=== PATIENT | female | born 1960 | race African-American/Black ===

== ENCOUNTER 2017-01-04 00:38 | Emergency (ER) | payer OTHER ==
[2017-01-04] MEDS ORDERED: ALBUTEROL SO4 2.5/IPRATROPIUM 0.5 INH SOL 3 ML VIAL.NEB. NEB ONE ×4 (01:15→02:41)
--- NOTE | 2017-01-04 01:15 | PDOC ---
History of Present Illness - General History Source: Patient Exam Limitations: No Limitations - History of Present Illness Initial Comments: 01/04/17 01:19 The patient is a 56 year old female with a significant past medical history of asthma and hypertension who presents to the ED with complaints of progressively worsening cough for past 24 hours, and chest tightness. The patient frequently comes into the ED for similar episodes. Patient denies fevers or chills. Patient denies abdominal pain, nausea, vomiting, or diarrhea. Patient denies palpitations. Patient denies any sick contacts, recent travels. Patient is a former smoker (Quit a year ago) <Khang Villagran - Last Filed: 01/04/17 01:19> <Hoa Gonzalez - Last Filed: 01/04/17 02:42> <Adriana Montes - Last Filed: 01/04/17 06:16> - General Chief Complaint: Asthma Stated Complaint: ASTHMA Time Seen by Provider: 01/04/17 01:04 Past History <Khang Villagran - Last Filed: 01/04/17 01:19> - Past Medical History Anemia: No Asthma: Yes (Dx 2003) Cardiac Disorders: Yes CVA: No COPD: Yes Diabetes: No GI Disorders: No Disorders: No HTN: Yes Hypercholesterolemia: No Kidney Stones: No Psychiatric Problems: Yes (anxiety) Suicide Attempt (Hx): No Seizures: No Thyroid Disease: No - Surgical History Abdominal Surgery: No Appendectomy: No Cardiac Surgery: No Cholecystectomy: No Lung Surgery: No Neurologic Surgery: No Orthopedic Surgery: No - Reproductive History PID: No - Immunization History Immunization Up to Date: Yes - Psycho/Social/Smoking Cessation Hx Anxiety: No Suicidal Ideation: No Smoking Status: No Smoking History: Unknown if ever smoked Have you smoked in the past 12 months: No Number of Cigarettes Smoked Daily: 0 If you are a former smoker, when did you quit?: 1 year ago Information on smoking cessation initiated: No 'Breaking Loose' booklet given: 04/10/15 Hx Alcohol Use: No Drug/Substance Use Hx: No Substance Use Type: None Hx Substance Use Treatment: Yes <Hoa Gonzalez - Last Filed: 01/04/17 02:42> <Adriana Montes - Last Filed: 01/04/17 06:16> - Past Medical History Allergies/Adverse Reactions: Allergies Allergy/AdvReac Type Severity Reaction Status Date / Time black walnut Allergy Severe Hives Verified 01/04/17 01:00 sulfamethoxazole Allergy Severe Swelling Verified 01/04/17 01:00 [From Bactrim] trimethoprim [From Bactrim] Allergy Severe Swelling Verified 01/04/17 01:00 grape juice Allergy Severe Hives Uncoded 01/04/17 01:00 PECAN Allergy Severe Hives Uncoded 01/04/17 01:00 PENUTS Allergy Severe Hives Uncoded 01/04/17 01:00 Home Medications: Ambulatory Orders Nebulizer [Aeroneb Go Nebulizer] 1 each MC ASDIR 07/06/16 Albuterol Sulfate Inhaler - [Ventolin HFA Inhaler -] 2 inh IH Q6H #1 inh Albuterol 0.083% Nebulizer Destiny [Ventolin 0.083% Nebulizer Soln -] 1 amp NEB Q4H PRN #0 amp 09/25/16 Budesonide/Formeterol Fumarate [SYMBICORT 160/4.5mcg -] 2 puff IH BID inhaler 09/25/16 Hydrochlorothiazide [Hctz -] 25 mg PO DAILY tablet 09/25/16 Hydroxyzine HCl [Atarax -] 25 mg PO TID PRN #0 tablet 09/25/16 Prednisone 10 mg PO DAILY #52 tablet 09/25/16 Tiotropium Reynolds [Spiriva] 1 dose IH DAILY #0 inh MDD 1 09/25/16 Prednisone [Deltasone -] 40 mg PO DAILY #10 tablet 01/04/17 Respiratory Specific PMHX - Complaint Specific PMHX TB (Tuberculosis): No <Hoa Gonzalez - Last Filed: 01/04/17 02:42> Review of Systems - Review of Systems Able to Perform ROS?: Yes Comments:: 01/04/17 01:19 CONSTITUTIONAL: Absent: fever, chills, diaphoresis, generalized weakness, malaise, loss of appetite HEENT: Absent: rhinorrhea, nasal congestion, throat pain, throat swelling, difficulty swallowing, mouth swelling, ear pain, eye pain, visual Changes CARDIOVASCULAR: Absent: chest pain, syncope, palpitations, irregular heart rate, lightheadedness , peripheral edema RESPIRATORY: Present: cough, chest tightness. Absent: dyspnea with exertion, orthopnea, wheezing, stridor, hemoptysis GASTROINTESTINAL: Absent: abdominal pain, abdominal distension, nausea, vomiting, diarrhea, constipation, melena, hematochezia GENITOURINARY: Absent: dysuria, frequency, urgency, hesitancy, hematuria, flank pain, genital pain MUSCULOSKELETAL: Absent: myalgia, arthralgia, joint swelling SKIN: Absent: rash, itching, pallor HEMATOLOGIC/IMMUNOLOGIC: Absent: easy bleeding, easy bruising, lymphadenopathy, frequent infections ENDOCRINE: Absent: unexplained weight gain, unexplained weight loss, heat intolerance, cold intolerance NEUROLOGIC: Absent: headache, focal weakness or paresthesias, dizziness, unsteady gait, seizure, mental status changes, bladder or bowel incontinence PSYCHIATRIC: Absent: anxiety, depression, suicidal or homicidal ideation, hallucinations. <Khang Villagran - Last Filed: 01/04/17 01:19> *Physical Exam - Vital Signs Last Vital Signs Temp Pulse Resp BP Pulse Ox 98.2 F 81 18 130/96 100 01/04/17 01:01 01/04/17 01:01 01/04/17 01:01 01/04/17 01:01 01/04/17 01:01 - Physical Exam Comments: 01/04/17 01:20 GENERAL: Well developed, well nourished. Awake and alert. No acute distress. HEENT: Normocephalic, atraumatic. PERRLA, EOMI. No conjunctival pallor. Sclera are non- icteric. Moist mucous membranes. Oropharynx is clear. NECK: Supple. Full ROM. No JVD. Carotid pulses 2+ and symmetric, without bruits. No thyromegaly. No lymphadenopathy. CARDIOVASCULAR: Regular rate and rhythm. No murmurs, rubs, or gallops. Distal pulses are 2+ and symmetric. PULMONARY: Scattered wheezing. Lungs clear to auscultation bilaterally. No rales or rhonchi. ABDOMINAL: Soft. Non-tender. Non-distended. No rebound or guarding. No organomegaly. Normoactive bowel sounds. MUSCULOSKELETAL Normal range of motion at all joints. No bony deformities or tenderness. No CVA tenderness. EXTREMITIES: No cyanosis. No clubbing. No edema. No calf tenderness. SKIN: Warm and dry. Normal capillary refill. No rashes. No jaundice. NEUROLOGICAL: Alert, awake, appropriate. Cranial nerves 2-12 intact. No deficits to light touch and temperature in face, upper extremities and lower extremities. No motor deficits in the in face, upper extremities and lower extremities. Normoreflexic in the upper and lower extremities. Normal speech. Toes are down-going bilaterally. Gait is normal without ataxia. PSYCHIATRIC: Cooperative. Good eye contact. Appropriate mood and affect. <Khang Villagran - Last Filed: 01/04/17 01:19> - Vital Signs Last Vital Signs Temp Pulse Resp BP Pulse Ox 98.2 F 81 18 130/96 100 01/04/17 01:01 01/04/17 01:01 01/04/17 01:01 01/04/17 01:01 01/04/17 01:01 <Hoa Gonzalez - Last Filed: 01/04/17 02:42> - Vital Signs Last Vital Signs Temp Pulse Resp BP Pulse Ox 98.2 F 81 18 130/96 100 01/04/17 01:01 01/04/17 01:01 01/04/17 01:01 01/04/17 01:01 01/04/17 01:01 <Adriana Montes - Last Filed: 01/04/17 06:16> ED Treatment Course - LABORATORY CBC & Chemistry Diagram: 01/04/17 01:50 01/04/17 01:50 - ADDITIONAL ORDERS Additional order review: Laboratory Results 01/04/17 01/04/17 01:50 01:50 Sodium 144 Potassium 4.0 Chloride 107 Carbon Dioxide 29 Anion Gap 8 BUN 24 H Creatinine 1.2 H D Creat Clearance w eGFR 46.30 Random Glucose 88 D Calcium 8.5 Total Bilirubin 0.2 AST 20 ALT 22 D Alkaline Phosphatase 106 D Creatine Kinase 154 D CK-MB (CK-2) 2.508 Troponin I < 0.02 Total Protein 7.4 Albumin 3.1 L 01/04/17 01:50 RBC 4.83 MCV 70.1 L MCHC 31.3 L RDW 16.9 H MPV 8.9 Neutrophils % 51.0 D Lymphocytes % 33.0 D Monocytes % 11.8 H D Eosinophils % 3.8 D Basophils % 0.4 D - Medications Given in the ED: ED Medications Discontinued Medications Generic Name Dose Route Start Last Admin Trade Name Freq PRN Reason Stop Dose Admin Albuterol/Ipratropium 1 amp 01/04/17 01:15 01/04/17 01:44 Duoneb - NEB 01/04/17 01:16 1 amp ONCE ONE Administration Albuterol/Ipratropium 1 amp 01/04/17 01:19 01/04/17 01:44 Duoneb - NEB 01/04/17 01:20 1 amp ONCE ONE Administration Albuterol/Ipratropium 1 amp 01/04/17 02:10 01/04/17 02:59 Duoneb - NEB 01/04/17 02:11 1 amp ONCE STA Administration Magnesium Sulfate 1 gm 01/04/17 02:25 01/04/17 02:59 Magnesium Sulfate IVPB 01/04/17 02:26 1 gm ONCE ONE Administration Prednisone 60 mg 01/04/17 01:17 01/04/17 01:44 Deltasone - PO 01/04/17 01:18 60 mg ONCE ONE Administration Terbutaline Sulfate 0.25 mg 01/04/17 02:47 01/04/17 03:27 Brethine Injection - SQ 01/04/17 02:48 Not Given ONCE ONE <Adriana Montes - Last Filed: 01/04/17 06:16> *DC/Admit/Observation/Transfer - Attestations Scribe Attestion: 01/04/17 01:21 Documentation prepared by Khang Villagran, acting as medical certification specialist for Hoa Gonzalez MD. <Khang Villagran - Last Filed: 01/04/17 01:19> <Hoa Gonzalez - Last Filed: 01/04/17 02:42> - Discharge Dispostion Admit: No <Adriana Montes - Last Filed: 01/04/17 06:16> Diagnosis at time of Disposition: Acute bronchitis with chronic obstructive pulmonary disease (COPD), Asthma - Discharge Dispostion Disposition: HOME Condition at time of disposition: Stable - Prescriptions Prescriptions: Prednisone [Deltasone -] 40 mg PO DAILY #10 tablet - Referrals Referrals: Marija Ro MD [Primary Care Provider] - - Patient Instructions Printed Discharge Instructions: Asthma -- Adult
[2017-01-04 01:17] VITALS: BP 130/96; PULSE 81; TEMP 98.2; BMI 21.2
[2017-01-04] MEDS ORDERED: predniSONE 20 MG TABLET (UD) PO ONE (01:17)
[2017-01-04] MEDS ORDERED: predniSONE 20 MG TABLET (UD) ONE (01:37)
[2017-01-04] MEDS ORDERED: predniSONE 10 MG TABLET (UD) ONE (01:39)
[2017-01-04 01:57] LABS: BASOPHIL 0.4 % (0-2.0); EOSINOPHIL 3.8 % (0-4.5); MCH 21.9 pg (25.7-33.7); MCHC 31.3 g/dl (32.0-36.0); MEAN CELL VOLUME 70.1 fl (80-96); MEAN PLT VOLUME 8.9 fl (7.5-11.1); PLATELET COUNT 190 K/MM3 (134-434); RDW 16.9 % (11.6-15.6); WHITE BLOOD COUNT 8.5 K/mm3 (4.0-10.0)
[2017-01-04] MEDS ORDERED: ALBUTEROL SO4 2.5/IPRATROPIUM 0.5 INH SOL 3 ML VIAL.NEB. NEB STA (02:10)
[2017-01-04 02:25] LABS: ALBUMIN 3.1 g/dl (3.4-5.0); BILIRUBIN,TOTAL 0.2 mg/dL (0.2-1.0); CALCIUM 8.5 mg/dL (8.5-10.1); COCKROFT - GAULT 51.85; CREATININE 1.2 mg/dL (0.55-1.02); TOT PROT 7.4 g/dl (6.4-8.2)
[2017-01-04] MEDS ORDERED: MAGNESIUM SULF 50% (8.12 MEQ/2 ML-1 GM VIAL) IVPB ONE (02:25)
[2017-01-04 02:26] LABS: TROPONIN I < 0.02 ng/ml (0.00-0.05)
[2017-01-04] MEDS ORDERED: MAGNESIUM SULF 50% (8.12 MEQ/2 ML-1 GM VIAL) ONE (02:41)
[2017-01-04] MEDS ORDERED: TERBUTALINE SULFATE 1 MG/1 ML VIAL SQ ONE ×2 (02:47→03:03)
[2017-01-04 04:34] LABS: PLATELET COMMENT2 NO CLOTTING DETECTED; PLATELET ESTIMATE ADEQUATE (NORMAL)
[2017-01-04 04:35] LABS: ANISOCYTOSIS 1+; HYPOCHROMIA 1+; MICROCYTOSIS 1+; POLYCHROMASIA 1+
--- NOTE | 2017-01-04 15:07 | EKG ---
Test Reason : Blood Pressure : / mmHG Vent. Rate : 072 BPM Atrial Rate : 072 BPM P-R Int : 164 ms QRS Dur : 074 ms QT Int : 430 ms P-R-T Axes : 067 058 064 degrees QTc Int : 470 ms NORMAL SINUS RHYTHM NORMAL ECG WHEN COMPARED WITH ECG OF 23-SEP-2016 07:05, NO SIGNIFICANT CHANGE WAS FOUND Confirmed by BERENICE MELTON MD ([id number]) on 01/04/2017 3:06:48 PM Referred By: Confirmed By:BERENICE MELTON MD
== END 2017-01-04 06:27 | disposition home or self-care (01) ==
LOC: JER 00:38
PROC: 3E0F7GC Introduction of Other Therapeutic Substance into Respiratory Tract, Via Natural or Artificial Opening (ICD-10-PCS; principal; 2017-01-04)
PROC: 3E0F7GC Introduction of Other Therapeutic Substance into Respiratory Tract, Via Natural or Artificial Opening (ICD-10-PCS; 2017-01-04)
PROC: 3E0F7GC Introduction of Other Therapeutic Substance into Respiratory Tract, Via Natural or Artificial Opening (ICD-10-PCS; 2017-01-04)
PROC: 3E0F7GC Introduction of Other Therapeutic Substance into Respiratory Tract, Via Natural or Artificial Opening (ICD-10-PCS; 2017-01-04)
PROC: 3E033GC Introduction of Other Therapeutic Substance into Peripheral Vein, Percutaneous Approach (ICD-10-PCS; 2017-01-04)
DX: J44.1 Chronic obstructive pulmonary disease with (acute) exacerbation (principal); I10 Essential (primary) hypertension; F41.9 Anxiety disorder, unspecified
CPT/HCPCS: 36415; 71010-TC; 80053; 82550; 82553; 84484; 85025; 93005; 93010; 99282-25

== ENCOUNTER 2017-01-17 00:20 | Inpatient (IN) | payer OTHER ==
[2017-01-17 00:47] VITALS: BMI 25.8
--- NOTE | 2017-01-17 00:47 | PDOC ---
History of Present Illness - General History Source: Patient Exam Limitations: No Limitations - History of Present Illness Initial Comments: 01/17/17 01:15 The patient is a 56-year-old female with a significant past medical history of asthma and HTN, and presents to the emergency department with shortness of breath and chest tightness tonight. The patient frequently comes to the ED for similar episodes. The patient reports that she cannot walk far due to the difficulty breathing and she has a productive cough. The patient reports that she was running around with her grandkids again. She states she is on a diet and only eats one meal a day now. The patient denies palpitations, headache and dizziness. The patient denies fever, chills, nausea, vomit, diarrhea and constipation. The patient denies dysuria, frequency, urgency and hematuria. Patient denies any sick contacts. Allergies: black walnut, sulfamethoxazole, trimethoprim, grape juice, pecan, peanuts Past Surgical History: None reported. Social History: former smoker (stopped 1.5 years ago) PCP: Dr. Marija Leon <Debbie Ngerete - Last Filed: 01/17/17 01:15> <Adriana Montes - Last Filed: 01/17/17 05:21> - General Chief Complaint: Shortness of Breath Stated Complaint: ASTHMA Time Seen by Provider: 01/17/17 00:45 Past History <Debbie Negrete - Last Filed: 01/17/17 01:15> - Past Medical History Anemia: No Asthma: Yes (Dx 2004) Cardiac Disorders: Yes CVA: No COPD: Yes Diabetes: No GI Disorders: No Disorders: No HTN: Yes Hypercholesterolemia: No Kidney Stones: No Psychiatric Problems: Yes (anxiety) Suicide Attempt (Hx): No Seizures: No Thyroid Disease: No - Surgical History Abdominal Surgery: No Appendectomy: No Cardiac Surgery: No Cholecystectomy: No Lung Surgery: No Neurologic Surgery: No Orthopedic Surgery: No - Reproductive History PID: No - Immunization History Immunization Up to Date: Yes - Psycho/Social/Smoking Cessation Hx Anxiety: No Suicidal Ideation: No Smoking Status: No Smoking History: Unknown if ever smoked Have you smoked in the past 12 months: No Number of Cigarettes Smoked Daily: 0 If you are a former smoker, when did you quit?: 1 year ago Information on smoking cessation initiated: No 'Breaking Loose' booklet given: 04/10/15 Hx Alcohol Use: No Drug/Substance Use Hx: No Substance Use Type: None Hx Substance Use Treatment: Yes <Adriana Montes - Last Filed: 01/17/17 05:21> - Past Medical History Allergies/Adverse Reactions: Allergies Allergy/AdvReac Type Severity Reaction Status Date / Time black walnut Allergy Severe Hives Verified 01/17/17 00:33 sulfamethoxazole Allergy Severe Swelling Verified 01/17/17 00:33 [From Bactrim] trimethoprim [From Bactrim] Allergy Severe Swelling Verified 01/17/17 00:33 grape juice Allergy Severe Hives Uncoded 01/17/17 00:33 PECAN Allergy Severe Hives Uncoded 01/17/17 00:33 PENUTS Allergy Severe Hives Uncoded 01/17/17 00:33 Home Medications: Ambulatory Orders Nebulizer [Aeroneb Go Nebulizer] 1 each MC ASDIR 07/06/16 Albuterol Sulfate Inhaler - [Ventolin HFA Inhaler -] 2 inh IH Q6H #1 inh Albuterol 0.083% Nebulizer Destiny [Ventolin 0.083% Nebulizer Soln -] 1 amp NEB Q4H PRN #0 amp 09/25/16 Budesonide/Formeterol Fumarate [SYMBICORT 160/4.5mcg -] 2 puff IH BID inhaler 09/25/16 Hydrochlorothiazide [Hctz -] 25 mg PO DAILY tablet 09/25/16 Hydroxyzine HCl [Atarax -] 25 mg PO TID PRN #0 tablet 09/25/16 Tiotropium Kiester [Spiriva] 1 dose IH DAILY #0 inh MDD 1 09/25/16 Review of Systems - Review of Systems Able to Perform ROS?: Yes Comments:: 01/17/17 01:17 CONSTITUTIONAL: Absent: fever, chills, diaphoresis, generalized weakness, malaise, loss of appetite HEENT: Absent: rhinorrhea, nasal congestion, throat pain, throat swelling, difficulty swallowing, mouth swelling, ear pain, eye pain, visual changes CARDIOVASCULAR: Present: (+) chest tightness Absent: syncope, palpitations, irregular heart rate, lightheadedness, peripheral edema RESPIRATORY: Present: (+) shortness of breath, (+) cough Absent: dyspnea with exertion, orthopnea, wheezing, stridor, hemoptysis GASTROINTESTINAL: Absent: abdominal pain, abdominal distension, nausea, vomiting, diarrhea, constipation, melena, hematochezia GENITOURINARY: Absent: dysuria, frequency, urgency, hesitancy, hematuria, flank pain, genital pain MUSCULOSKELETAL: Absent: myalgia, arthralgia, joint swelling SKIN: Absent: rash, itching, pallor HEMATOLOGIC/IMMUNOLOGIC: Absent: easy bleeding, easy bruising, lymphadenopathy, frequent infections ENDOCRINE: Absent: unexplained weight gain, unexplained weight loss, heat intolerance, cold intolerance NEUROLOGIC: Absent: headache, focal weakness or paresthesias, dizziness, unsteady gait, seizure, mental status changes, bladder or bowel incontinence PSYCHIATRIC: Absent: anxiety, depression, suicidal or homicidal ideation, hallucinations. <NegreteDebbie - Last Filed: 01/17/17 01:15> *Physical Exam - Vital Signs Last Vital Signs Temp Pulse Resp BP Pulse Ox 98.4 F 114 H 28 H 154/82 94 L 01/17/17 00:44 01/17/17 00:44 01/17/17 00:44 01/17/17 00:44 01/17/17 00:44 - Physical Exam Comments: 01/17/17 01:18 GENERAL: Well developed, well nourished. Awake and alert. No acute distress. HEENT: Normocephalic, atraumatic. PERRLA, EOMI. No conjunctival pallor. Sclera are non- icteric. Moist mucous membranes. Oropharynx is clear. NECK: Supple. Full ROM. No JVD. Carotid pulses 2+ and symmetric, without bruits. No thyromegaly. No lymphadenopathy. CARDIOVASCULAR: Regular rate and rhythm. No murmurs, rubs, or gallops. Distal pulses are 2+ and symmetric. PULMONARY: (+) Wheezing bilaterally and throughout. No rales or rhonchi. ABDOMINAL: (+) Slightly distended. Soft. Non-tender. No rebound or guarding. No organomegaly. Normoactive bowel sounds. MUSCULOSKELETAL Normal range of motion at all joints. No bony deformities or tenderness. No CVA tenderness. EXTREMITIES: No cyanosis. No clubbing. No edema. No calf tenderness. SKIN: Warm and dry. Normal capillary refill. No rashes. No jaundice. NEUROLOGICAL: Alert, awake, appropriate. Cranial nerves 2-12 intact. No deficits to light touch and temperature in face, upper extremities and lower extremities. No motor deficits in the in face, upper extremities and lower extremities. Normoreflexic in the upper and lower extremities. Normal speech. Toes are down- going bilaterally. PSYCHIATRIC: Cooperative. Good eye contact. Appropriate mood and affect. <Debbie Negrete - Last Filed: 01/17/17 01:15> - Vital Signs Last Vital Signs Temp Pulse Resp BP Pulse Ox 98.4 F 114 H 28 H 154/82 94 L 01/17/17 00:44 01/17/17 00:44 01/17/17 00:44 01/17/17 00:44 01/17/17 00:44 <Adriana Montes - Last Filed: 01/17/17 05:21> ED Treatment Course - Medications Given in the ED: ED Medications Discontinued Medications Generic Name Dose Route Start Last Admin Trade Name Freq PRN Reason Stop Dose Admin Magnesium Sulfate 2 gm 01/17/17 01:00 01/17/17 01:12 Magnesium Sulfate IVPB 01/17/17 01:01 2 gm ONCE ONE Administration Methylprednisolone Sodium Succinate 125 mg 01/17/17 01:00 01/17/17 01:11 Solu-Medrol - IVPB 01/17/17 01:01 125 mg ONCE ONE Administration <Debbie Negrete - Last Filed: 01/17/17 01:15> - LABORATORY CBC & Chemistry Diagram: 01/17/17 03:20 01/17/17 03:20 <Adriana Montes - Last Filed: 01/17/17 05:21> Medical Decision Making - Medical Decision Making 01/17/17 05:17 Pt comes with asthma/COPD exacerbation. No fever. No smoking x 1 year. Pt is compliant with her albuterol. She was here recently and she was treated with prednisone; however steroids ran out. Pt has no known seasonal allergies. Pt is gasping for air and yet she is able to speak in full sentences. Labs normal. CXR same as old. EKG is NSR. She will be admitted to med surg, as she is unable to ambulate short distances without getting extremely SOB. She is failing conventional treatment with duonebs, mag sulfate, solu-medrol, terbutaline. Her lung horner remain with wheezing throughout both lung horner. She will be admitted to the hospitalist. She was placed on BiPAP for comfort. But within an hour of the BiPAP placement, she ripped off the mask as she felt claustrophobic and could not tolerate the mask. <Adriana Montes - Last Filed: 01/17/17 05:21> *DC/Admit/Observation/Transfer - Attestations Scribe Attestion: 01/17/17 01:19 Documentation prepared by Debbie Negrete, acting as medical lab technician for Adriana Montes MD. <Debbie Negrete - Last Filed: 01/17/17 01:15> - Discharge Dispostion Admit: Yes <Adriana Montes - Last Filed: 01/17/17 05:21> Diagnosis at time of Disposition: COPD exacerbation, Asthma Hypertension Qualifiers: Hypertension type: essential hypertension Qualified Code(s): I10 - Essential ( primary) hypertension
[2017-01-17] MEDS ORDERED: methylPREDNISolone NA SUCC 125 MG/2 ML VIAL IVPB ONE (01:00)
[2017-01-17] MEDS ORDERED: MAGNESIUM SULF 50% (8.12 MEQ/2 ML-1 GM VIAL) IVPB ONE (01:00)
[2017-01-17] MEDS ORDERED: TERBUTALINE SULFATE 1 MG/1 ML VIAL SQ ONE ×4 (01:01→03:22)
[2017-01-17] MEDS ORDERED: LACTULOSE 20 GM/30 ML UDC (FOR ORAL USE ONLY) PO ONE (01:02)
[2017-01-17] MEDS ORDERED: methylPREDNISolone NA SUCC 125 MG/2 ML VIAL ONE (01:03)
[2017-01-17] MEDS ORDERED: MAGNESIUM SULF 50% (8.12 MEQ/2 ML-1 GM VIAL) ONE (01:03)
[2017-01-17] MEDS ORDERED: ALBUTEROL SO4 2.5/IPRATROPIUM 0.5 INH SOL 3 ML VIAL.NEB. NEB ONE (02:36)
[2017-01-17 02:56] LABS: ALLENS TEST POSITIVE; ART PUNCT SITE RIGHT RADIAL; ARTERIAL BLD GAS O2 SATURATION 94.7 % (90-98.9); ARTERIAL BLOOD GAS HCO3 23.4 meq/L (22-26); ARTERIAL BLOOD GAS PO2 74.8 mmHg (80-100); ARTERIAL BLOOD GAS pH 7.34 (7.35-7.45); LPM/O2% 3L; PT. ON O2? YES; TYPE OF O2 NASAL
--- NOTE | 2017-01-17 03:16 | HP ---
<Enrike Whitmore - Last Filed: 01/17/17 03:59> CHIEF COMPLAINT: Shortness of Breath PCP: Dr. Marija Leon HISTORY OF PRESENT ILLNESS: The patient is a 56-year-old female with a significant past medical history of asthma and HTN, and presented to the emergency department with worsening shortness of breath and chest tightness for a couple of days The patient reported that she cannot walk far due to the difficulty breathing. She reported associated productive cough with white sputum and chest congestion. The patient stated that she used her inhaler and nebulizer at home to alleviate symptoms with no relief. The patient denied palpitations, headache and dizziness. The patient denied fever, chills, nausea, vomit, diarrhea and constipation. The patient denied dysuria, frequency, urgency and hematuria. Patient denies any sick contacts. ER course was notable for: (1) Magnesium Sulfate 2 g IV (2) Solumedrol 125 mg IV (3) Terbutaline 0.25 mg SQ (4) Duoneb (5) Placed on bipap Recent Travel: Noncontributory PAST MEDICAL HISTORY: Asthma, arthritis, HTN PAST SURGICAL HISTORY: Noncontributory Social History: Lives at home with mother Smoking: Quit 1.5 years ago Alcohol: Socially Drugs: Quit Crack-Cocaine (smoked) 4 years ago. Family History: Allergies black walnut Allergy (Severe, Verified 01/17/17 00:33) Hives sulfamethoxazole [From Bactrim] Allergy (Severe, Verified 01/17/17 00:33) Swelling trimethoprim [From Bactrim] Allergy (Severe, Verified 01/17/17 00:33) Swelling grape juice Allergy (Severe, Uncoded 01/17/17 00:33) Hives PECAN Allergy (Severe, Uncoded 01/17/17 00:33) Hives PECANS PENUTS Allergy (Severe, Uncoded 01/17/17 00:33) Hives PEANUTS HOME MEDICATIONS: Home Medications Medication Instructions Recorded Nebulizer [Aeroneb Go Nebulizer] 1 each ASDIR 07/06/16 Albuterol Sulfate Inhaler - 2 inh IH Q6H #1 inh 08/11/16 [Ventolin HFA Inhaler -] Albuterol 0.083% Nebulizer Destiny 1 amp NEB Q4H PRN #0 amp 09/25/16 [Ventolin 0.083% Nebulizer Soln -] Budesonide/Formeterol Fumarate 2 puff IH BID inhaler 09/25/16 [SYMBICORT 160/4.5mcg -] Hydrochlorothiazide [Hctz -] 25 mg PO DAILY tablet 09/25/16 Hydroxyzine HCl [Atarax -] 25 mg PO TID PRN #0 tablet 09/25/16 Tiotropium [place] [Spiriva] 1 dose IH DAILY #0 inh MDD 1 09/25/16 REVIEW OF SYSTEMS CONSTITUTIONAL: Absent: fever, chills, diaphoresis, generalized weakness, malaise, loss of appetite, weight change HEENT: Absent: rhinorrhea, nasal congestion, throat pain, throat swelling, difficulty swallowing, mouth swelling, ear pain, eye pain, visual changes CARDIOVASCULAR: Present: Chest tightness Absent: syncope, palpitations, irregular heart rate, lightheadedness, peripheral edema RESPIRATORY: Present: Cough, shortness of breath. Absent: dyspnea with exertion, orthopnea, stridor, hemoptysis GASTROINTESTINAL: Absent: abdominal pain, abdominal distension, nausea, vomiting, diarrhea, constipation, melena, hematochezia GENITOURINARY: Absent: dysuria, frequency, urgency, hesitancy, hematuria, flank pain, genital pain MUSCULOSKELETAL: Absent: myalgia, arthralgia, joint swelling, back pain, neck pain SKIN: Absent: rash, itching, pallor HEMATOLOGIC/IMMUNOLOGIC: Absent: easy bleeding, easy bruising, lymphadenopathy, frequent infections ENDOCRINE: Absent: unexplained weight gain, unexplained weight loss, heat intolerance, cold intolerance NEUROLOGIC: Absent: headache, focal weakness or paresthesias, dizziness, unsteady gait, seizure, mental status changes, bladder or bowel incontinence PSYCHIATRIC: Absent: anxiety, depression, suicidal or homicidal ideation, hallucinations. PHYSICAL EXAMINATION Vital Signs - 24 hr 01/17/17 01/17/17 01/17/17 00:44 02:47 02:55 Temperature 98.4 F Pulse Rate 114 H 100 H Respiratory 28 H Rate Blood Pressure 154/82 O2 Sat by Pulse 94 L 91 L 100 Oximetry (%) GENERAL: Awake, alert, and fully oriented, in no acute distress. HEAD: Normal with no signs of trauma. EYES: Pupils equal, round and reactive to light, extraocular movements intact, sclera anicteric, conjunctiva clear. No lid lag. EARS, NOSE, THROAT: Ears normal, nares patent, oropharynx clear without exudates. Moist mucous membranes. NECK: Normal range of motion, supple without lymphadenopathy, JVD, or masses. LUNGS: (+) Diffuse Bilateral wheezes. HEART: (+) Tachycardic, regular rhythm, normal S1 and S2 without murmur, rub or gallop. ABDOMEN: Soft, nontender, not distended, normoactive bowel sounds, no guarding, no rebound, no masses. No hepatomegaly or splenomegaly. MUSCULOSKELETAL: Normal range of motion at all joints. No bony deformities or tenderness. No CVA tenderness. UPPER EXTREMITIES: 2+ pulses, warm, well-perfused. No cyanosis. No clubbing. No peripheral edema. LOWER EXTREMITIES: 2+ pulses, warm, well-perfused. No calf tenderness. NEUROLOGICAL: Cranial nerves II-XII intact. Normal speech. Normal gait. PSYCHIATRIC: Cooperative. Good eye contact. Appropriate mood and affect. SKIN: Warm, dry, normal turgor, no rashes or lesions noted, normal capillary refill. Laboratory Results - last 24 hr 01/17/17 02:45 Puncture Site Right radial ABG pH 7.34 L ABG pCO2 at Pt Temp 45.1 H ABG pO2 at Pt Temp 74.8 L D ABG HCO3 23.4 ABG O2 Sat (Measured) 94.7 ABG O2 Content 13.9 L ABG Base Excess -2.0 Timmy Test Positive O2 Delivery Device Nasal Oxygen Flow Rate 3l PEEP 0.0 ASSESSMENT/PLAN: 1. Acute hypoxic and hypercapnic respiratory failure secondary to acute exacerbation of COPD/asthma - Solumedrol 40 mg Q8 - Continue Symbicort - Duoneb QID - Albuterol neb Q4 PRN - O2 2L/min - Bipap as needed - Follow up Chest x-ray - Pulmonary consult 2. HTN Continue HCTZ Admit to med surg. Documentation prepared by Enrike Whitmore, acting as medical technologist hematology for Marlon Humphreys MD. <Marlon Humphreys - Last Filed: 01/17/17 04:01> Visit type - Emergency Visit Emergency Visit: Yes ED Registration Date: 01/17/17 Care time: The patient presented to the Emergency Department on the above date and was hospitalized for further evaluation of their emergent condition. - New Patient This patient is new to me today: Yes Date on this admission: 01/17/17 - Critical Care Critical Care patient: No
[2017-01-17] MEDS ORDERED: ACETAMINOPHEN 325 MG TABLET (FP) PO PRN (03:17)
[2017-01-17] MEDS ORDERED: ONDANSETRON 4 MG/2 ML VIAL IVPB PRN (03:17)
[2017-01-17] MEDS ORDERED: hydrOXYzine HCL 25 MG TABLET (FP) PO PRN (03:23)
[2017-01-17 03:31] LABS: BASOPHIL 0.3 % (0-2.0); EOSINOPHIL 0.5 % (0-4.5); MCH 21.8 pg (25.7-33.7); MCHC 30.9 g/dl (32.0-36.0); MEAN CELL VOLUME 70.4 fl (80-96); MEAN PLT VOLUME 8.7 fl (7.5-11.1); NEUTROPHILS 84.2 % (42.8-82.8); PLATELET COUNT 173 K/MM3 (134-434); RDW 16.2 % (11.6-15.6)
[2017-01-17 03:50] LABS: URINE APPEARANCE CLEAR; URINE BILIRUBIN NEGATIVE (NEGATIVE); URINE BLOOD NEGATIVE (NEGATIVE); URINE COLOR LTYELLOW; URINE GLUCOSE (UA) NEGATIVE (NEGATIVE); URINE KETONE NEGATIVE (NEGATIVE); URINE NITRITE NEGATIVE (NEGATIVE); URINE UROBILINOGEN NEGATIVE E.U./dl (0.2-1.0)
[2017-01-17 03:59] LABS: URINE LEUK ESTERASE 1+ (NEGATIVE); URINE PROTEIN 2+ (NEGATIVE)
[2017-01-17 04:00] LABS: BILIRUBIN,TOTAL 0.2 mg/dL (0.2-1.0); CALCIUM 8.8 mg/dL (8.5-10.1); COCKROFT - GAULT 66.6655; CREATININE 1.1 mg/dL (0.55-1.02); TOT PROT 7.1 g/dl (6.4-8.2)
[2017-01-17 04:01] LABS: URINE BACTERIA RARE /hpf (NONE SEEN); URINE HYALINE CAST 9 /lpf; URINE MUCUS RARE; URINE RBC 2 /hpf (0-3); URINE WBC 6 /hpf (3-5)
[2017-01-17] MEDS: ALBUTEROL SO4 2.5/IPRATROPIUM 0.5 INH SOL 3 ML VIAL.NEB. NEB SCH ×2 (06:02→11:23)
[2017-01-17] MEDS: methylPREDNISolone NA SUCC 40 MG/1 ML VIAL IVPB SCH ×2 (10:31→17:54)
[2017-01-17] MEDS: HYDROCHLOROTHIAZIDE 25 MG TABLET (FP) PO SCH (10:31)
[2017-01-17] MEDS: BUDESONIDE/FORMETEROL FUMARATE 160/4.5 mcg INHALER IH SCH ×2 (10:35→22:45)
--- NOTE | 2017-01-17 11:38 | CON.PULM ---
Consult Consult Specialty:: PULM/CCM Referred by:: ELY Reason for Consultation:: SOB - History of Present Illness Chief Complaint: SOB History of Present Illness: 56 F, apparent intermediate asthma (not steroid dependent, unknown PEF, never intubated), and HTN. Recent admission for AE of Asthma. Reports some non-specific "itchy eyes" and possible environmental allergies. No PND. No ear symptoms. She denies smoking or second hand smoke exposure. No travel history or sick contacts. CXR: no acute process - History Source History Provided By: Patient Limitations to Obtaining History: No Limitations - Past Medical History Cardio/Vascular: Yes: HTN Pulmonary: Yes: Asthma, COPD. No: O2 Dependent, Previously Intubated, Pulmonary Embolus, Sleep Apnea ...LMP: 05/18/11 - Alcohol/Substance Use Hx Alcohol Use: No History of Substance Use: reports: None - Smoking History Smoking history: Unknown if ever smoked Have you smoked in the past 12 months: No Aproximately how many cigarettes per day: 0 If you are a former smoker, when did you quit?: 1 year ago - Social History ADL: Independent History of Recent Travel: No Home Medications - Allergies Allergies/Adverse Reactions: Allergies Allergy/AdvReac Type Severity Reaction Status Date / Time black walnut Allergy Severe Hives Verified 01/17/17 00:33 sulfamethoxazole Allergy Severe Swelling Verified 01/17/17 00:33 [From Bactrim] trimethoprim [From Bactrim] Allergy Severe Swelling Verified 01/17/17 00:33 grape juice Allergy Severe Hives Uncoded 01/17/17 00:33 PECAN Allergy Severe Hives Uncoded 01/17/17 00:33 PENUTS Allergy Severe Hives Uncoded 01/17/17 00:33 - Home Medications Home Medications: Ambulatory Orders Nebulizer [Aeroneb Go Nebulizer] 1 each MC ASDIR 07/06/16 Albuterol Sulfate Inhaler - [Ventolin HFA Inhaler -] 2 inh IH Q6H #1 inh Albuterol 0.083% Nebulizer [place] [Ventolin 0.083% Nebulizer Soln -] 1 amp NEB Q4H PRN #0 amp 09/25/16 Budesonide/Formeterol Fumarate [SYMBICORT 160/4.5mcg -] 2 puff IH BID inhaler 09/25/16 Hydrochlorothiazide [Hctz -] 25 mg PO DAILY tablet 09/25/16 Hydroxyzine HCl [Atarax -] 25 mg PO TID PRN #0 tablet 09/25/16 Tiotropium [place] [Spiriva] 1 dose IH DAILY #0 inh MDD 1 09/25/16 Review of Systems - Review of Systems Constitutional: reports: Malaise, Weakness. denies: Chills, Fever, Loss of Appetite, Night Sweats Eyes: reports: Other (excessive tearing) HENT: denies: Ear Discharge, Ear Pain, Epistaxis, Hearing Loss, Nasal Congestion , Throat Pain, Ringing in Ears Neck: reports: No Symptoms Cardiovascular: reports: Shortness of Breath. denies: Chest Pain, Edema, Palpitations Respiratory: reports: Cough, SOB, SOB on Exertion. denies: Hemoptysis, Snoring , Wheezing Gastrointestinal: reports: No Symptoms Genitourinary: reports: No Symptoms Breasts: reports: No Symptoms Reported Musculoskeletal: reports: No Symptoms Integumentary: reports: No Symptoms Neurological: reports: No Symptoms Endocrine: reports: No Symptoms Hematology/Lymphatic: reports: No Symptoms Psychiatric: reports: No Symptoms Physical Exam Vital Sings: Vital Signs Temperature 98.4 F 01/17/17 00:44 Pulse Rate 94 H 01/17/17 11:24 Respiratory Rate 22 01/17/17 05:49 Blood Pressure 153/73 01/17/17 05:49 O2 Sat by Pulse Oximetry (%) 95 01/17/17 11:24 Constitutional: Yes: No Distress, Calm Eyes: Yes: Conjunctiva Clear, EOM Intact, Tearing. No: Ptosis, Sclera Icterus HENT: Yes: Atraumatic, Normocephalic Neck: Yes: Supple, Trachea Midline Cardiovascular: Yes: Regular Rate and Rhythm Respiratory: Yes: Cough, Diminished, On Nasal O2, Rhonchi. No: Accessory Muscle Use, Rales, Stridor, Tachypnea, Wheezes ...Inspection: Yes: WNL ...Clubbing: No Gastrointestinal: Yes: WNL, Normal Bowel Sounds, Soft Renal/: Yes: WNL Musculoskeletal: Yes: WNL Extremities: Yes: WNL Edema: No Peripheral Pulses WNL: Yes Integumentary: Yes: WNL Neurological: Yes: WNL, Alert, Oriented ...Motor Strength: WNL Psychiatric: Yes: WNL, Alert, Oriented Labs: ABG Results ABG pH 7.34 (7.35-7.45) L 01/17/17 02:45 ABG pCO2 at Pt Temp 45.1 mmHg (35-45) H 01/17/17 02:45 ABG pO2 at Pt Temp 74.8 mmHg (80-100) L D 01/17/17 02:45 ABG HCO3 23.4 meq/L (22-26) 01/17/17 02:45 ABG O2 Sat (Measured) 94.7 % (90-98.9) 01/17/17 02:45 ABG O2 Content 13.9 % vol (15-22) L 01/17/17 02:45 ABG Base Excess -2.0 meq/l (-2-2) 01/17/17 02:45 Imaging - Results Chest X-ray: Report Reviewed, Image Reviewed Problem List - Problems (1) Shortness of breath Code(s): R06.02 - SHORTNESS OF BREATH (2) Asthma Code(s): J45.909 - UNSPECIFIED ASTHMA, UNCOMPLICATED (3) Hypertension Code(s): I10 - ESSENTIAL (PRIMARY) HYPERTENSION Qualifiers: Hypertension type: essential hypertension Qualified Code(s): I10 - Essential (primary) hypertension (4) Asthma exacerbation in COPD Code(s): J44.1 - CHRONIC OBSTRUCTIVE PULMONARY DISEASE W (ACUTE) EXACERBATION J45.901 - UNSPECIFIED ASTHMA WITH (ACUTE) EXACERBATION Assessment/Plan Medrol IV Symbicort BD TX Spiriva O2 as needed Add Singulair Will need outpatient PFTs No smoking counseled Will follow Thank you. Dr Carty
[2017-01-17] MEDS: ALBUTEROL SO4 0.083% IH SOL 2.5 MG/3 ML VIAL.NEB. NEB SCH ×2 (14:10→21:46)
[2017-01-17] MEDS: TIOTROPIUM BROMIDE 18 MCG/INH (DEVICE W/ 5 CAPSULES) IH SCH (15:44)
[2017-01-17] MEDS: MONTELUKAST NA 10 MG TABLET PO SCH (22:45)
--- NOTE | 2017-01-18 00:05 | EKG ---
Test Reason : Blood Pressure : / mmHG Vent. Rate : 111 BPM Atrial Rate : 111 BPM P-R Int : 154 ms QRS Dur : 076 ms QT Int : 362 ms P-R-T Axes : 080 051 067 degrees QTc Int : 492 ms SINUS TACHYCARDIA BIATRIAL ENLARGEMENT ABNORMAL ECG WHEN COMPARED WITH ECG OF 04-JAN-2017 01:46, VENT. RATE HAS INCREASED BY 39 BPM Confirmed by DIAMOND THOMASON MD ([id number]) on 01/18/2017 12:05:07 AM Referred By: Confirmed By:DIAMOND THOMASON MD
[2017-01-18] MEDS: methylPREDNISolone NA SUCC 40 MG/1 ML VIAL IVPB SCH ×3 (01:23→17:17)
[2017-01-18] MEDS: ALBUTEROL SO4 0.083% IH SOL 2.5 MG/3 ML VIAL.NEB. NEB SCH ×3 (06:51→22:00)
[2017-01-18 07:09] LABS: MCH 21.8 pg (25.7-33.7); MCHC 30.5 g/dl (32.0-36.0); MEAN CELL VOLUME 71.6 fl (80-96); MEAN PLT VOLUME 9.1 fl (7.5-11.1); PLATELET COUNT 166 K/MM3 (134-434); RDW 16.5 % (11.6-15.6); WHITE BLOOD COUNT 14.9 K/mm3 (4.0-10.0)
[2017-01-18 07:30] LABS: CALCIUM 8.7 mg/dL (8.5-10.1); COCKROFT - GAULT 73.3295
[2017-01-18] MEDS: TIOTROPIUM BROMIDE 18 MCG/INH (DEVICE W/ 5 CAPSULES) IH SCH (09:49)
[2017-01-18] MEDS: HYDROCHLOROTHIAZIDE 25 MG TABLET (FP) PO SCH (09:49)
[2017-01-18] MEDS: BUDESONIDE/FORMETEROL FUMARATE 160/4.5 mcg INHALER IH SCH ×2 (09:56→21:45)
[2017-01-18] MEDS: ALBUTEROL SO4 0.083% IH SOL 2.5 MG/3 ML VIAL.NEB. NEB PRN (11:00)
--- NOTE | 2017-01-18 12:18 | MSN ---
Progress Note (SOAP) - Subjective Chief Complaint: Cough and shortness of breath History of Present Illness: MEDICAL STUDENT NOTE The patient is a pleasant 56 year old black female with past medical history significant for COPD, asthma, and hypertension who was admitted for acute exacerbation of asthma and COPD on 01/17/17. The patient was sitting up in bed watching tv at the start of the interview. She stated that she does not have difficulty breathing when sitting in bed, but every time she gets out of bed to use the restroom she needs a few minutes to catch her breath. She also stated that prior to coming to the hospital, she had to use her inhaler every time she walked somewhere, estimated to be approximately five times per day. Her cough is unchanged and is still productive with white sputum. She was not wearing her nasal cannula. The patient also stated that she is worried about her abdomen as it has become progressively distended over the past few weeks. She states that sometimes whenever she eats a lot of food she becomes scared that she might "pass out" but has yet to lose consciousness. She has suprapubic cramping once per month that remits without intervention. She has not had her period since approximately 2010. She denies any changes in bowel habits or blood in her stool. The patient denies chills, diarrhea, constipation, nausea, vomiting, dysuria, increased frequency, or dizziness. She admits to headache of two day duration and wheezing. - Current Medications Current Medications: Active Medications Acetaminophen (Tylenol -) 650 mg PO Q4H PRN PRN Reason: FEVER OR PAIN Albuterol Sulfate (Ventolin 0.083% Nebulizer Soln -) 1 amp NEB Q4H PRN PRN Reason: SHORT OF BREATH/WHEEZING Last Admin: 01/18/17 11:00 Dose: 1 amp Albuterol Sulfate (Ventolin 0.083% Nebulizer Soln -) 1 amp NEB TIDR [facility] Last Admin: 01/18/17 06:51 Dose: 1 amp Budesonide/Formoterol Fumarate (Symbicort 160/4.5mcg -) 2 puff IH BID [facility] Last Admin: 01/18/17 09:56 Dose: Not Given Hydrochlorothiazide (Hctz -) 25 mg PO DAILY [facility] Last Admin: 01/18/17 09:49 Dose: 25 mg Hydroxyzine HCl (Atarax -) 25 mg PO TID PRN PRN Reason: itchiness Methylprednisolone Sodium Succinate (Solu-Medrol -) 40 mg IVPB Q8H-IV [facility] Last Admin: 01/18/17 09:49 Dose: 40 mg Montelukast Sodium (Singulair -) 10 mg PO HS [facility] Last Admin: 01/17/17 22:45 Dose: 10 mg Ondansetron HCl (Zofran Injection) 4 mg IVPB Q4H PRN PRN Reason: NAUSEA Tiotropium [place] (Spiriva -) 1 puff IH DAILY [facility] Last Admin: 01/18/17 09:49 Dose: 1 puff - Objective Vital Signs: Vital Signs Temperature 97.8 F 01/18/17 08:57 Pulse Rate 92 H 01/18/17 11:00 Respiratory Rate 20 01/18/17 08:57 Blood Pressure 138/87 01/18/17 08:57 O2 Sat by Pulse Oximetry (%) 95 01/18/17 11:00 Constitutional: Yes: Well Nourished, No Distress, Calm Eyes: Yes: WNL, Conjunctiva Clear HENT: Yes: WNL, Atraumatic, Normocephalic. No: Nasal Congestion, Pharyngeal Erythema, Rhinnorhea Neck: Yes: WNL, Supple, Trachea Midline Cardiovascular: Yes: WNL, Regular Rate and Rhythm, S1, S2 Respiratory: Yes: Cough, Rhonchi (bilateral bases), SOB on Exertion, Wheezes ( Bilateral, diffuse) Gastrointestinal: Yes: Distention, Tenderness (Left lower quadrant). No: Palpable Mass, Splenomegaly, Tenderness, Epigastrium, Tenderness, Rebound Peripheral Pulses WNL: Yes Peripheral Pulses: Left Radial: 2+, Right Radial: 2+, Left Doralis Pedis: 2+, Right Dorsalis Pedis: 2+ Edema: No Integumentary: Yes: WNL Neurological: Yes: WNL, Alert, Oriented Psychiatric: Yes: WNL, Alert, Oriented Labs Lab Results: CBC, BMP 01/18/17 05:35 01/18/17 05:35 Assessment/Plan MEDICAL STUDENT ASSESSMENT AND PLAN # Acute exacerbation of asthma/COPD - Continue ventolin inhaler - Continue solu-medrol 40 mg IVPB - Continue nebulizer treatment BID - Continue symbicort 160/4.5 mcg #Abdominal distension - Consider US of abdomen due to increased distension since 01/17. # Leukocytosis (14.9) - Patient denies fever, chills, nausea, vomiting, changes in bowel movements - ?Secondary to steroids - Continue to monitor # HTN - Continue HCTZ 25 mg PO qD # DVT prophylaxis - Continue SCD use # Fluids / electrolytes / nutrition - Fluids: None - Electrolytes: Not needed - Nutrition: Regular diet Disposition: Continue to monitor patient for improvement of symptoms
--- NOTE | 2017-01-18 13:00 | PN ---
Progress Note (short form) - Note Progress Note: +Still with HILL. No change in cough. She does feel slightly less SOB at rest. No CP. Intake & Output 01/15/17 01/16/17 01/17/17 01/18/17 23:59 23:59 23:59 23:59 Intake Total 200 Balance 200 Weight 165 lb Last Vital Signs Temp Pulse Resp BP Pulse Ox 97.8 F 92 H 20 138/87 95 01/18/17 08:57 01/18/17 11:00 01/18/17 08:57 01/18/17 08:57 01/18/17 11:00 Active Medications Acetaminophen (Tylenol -) 650 mg PO Q4H PRN PRN Reason: FEVER OR PAIN Albuterol Sulfate (Ventolin 0.083% Nebulizer Soln -) 1 amp NEB Q4H PRN PRN Reason: SHORT OF BREATH/WHEEZING Last Admin: 01/18/17 11:00 Dose: 1 amp Albuterol Sulfate (Ventolin 0.083% Nebulizer Soln -) 1 amp NEB TIDR [facility] Last Admin: 01/18/17 06:51 Dose: 1 amp Budesonide/Formoterol Fumarate (Symbicort 160/4.5mcg -) 2 puff IH BID [facility] Last Admin: 01/18/17 09:56 Dose: Not Given Hydrochlorothiazide (Hctz -) 25 mg PO DAILY [facility] Last Admin: 01/18/17 09:49 Dose: 25 mg Hydroxyzine HCl (Atarax -) 25 mg PO TID PRN PRN Reason: itchiness Methylprednisolone Sodium Succinate (Solu-Medrol -) 40 mg IVPB Q8H-IV [facility] Last Admin: 01/18/17 09:49 Dose: 40 mg Montelukast Sodium (Singulair -) 10 mg PO HS [facility] Last Admin: 01/17/17 22:45 Dose: 10 mg Ondansetron HCl (Zofran Injection) 4 mg IVPB Q4H PRN PRN Reason: NAUSEA Tiotropium [place] (Spiriva -) 1 puff IH DAILY [facility] Last Admin: 01/18/17 09:49 Dose: 1 puff Constitutional: Yes: No Distress Eyes: Yes: Conjunctiva Clear, EOM Intact, Tearing. No: Ptosis, Sclera Icterus HENT: Yes: Atraumatic, Normocephalic Neck: Yes: Supple, Trachea Midline Cardiovascular: Yes: Regular Rate and Rhythm Respiratory: Yes: Cough, Diminished, On Nasal O2, Rhonchi, scattered wheeze. No : Accessory Muscle Use, Rales, Stridor, Tachypnea ...Inspection: Yes: WNL ...Clubbing: No Gastrointestinal: Yes: WNL, Normal Bowel Sounds, Soft Renal/: Yes: WNL Musculoskeletal: Yes: WNL Extremities: Yes: WNL Edema: No Peripheral Pulses WNL: Yes Integumentary: Yes: WNL Neurological: Yes: WNL, Alert, Oriented ...Motor Strength: WNL Psychiatric: Yes: WNL, Alert, Oriented Labs: Laboratory Results - last 24 hr 01/18/17 01/18/17 05:35 05:35 WBC 14.9 H D RBC 4.81 Hgb 10.5 L Hct 34.4 MCV 71.6 L MCHC 30.5 L RDW 16.5 H Plt Count 166 MPV 9.1 Sodium 142 Potassium 4.3 D Chloride 105 Carbon Dioxide 28 Anion Gap 9 BUN 22 H Creatinine 1.0 Random Glucose 146 H Calcium 8.7 Problem List - Problems (1) Shortness of breath Code(s): R06.02 - SHORTNESS OF BREATH (2) Asthma Code(s): J45.909 - UNSPECIFIED ASTHMA, UNCOMPLICATED (3) Hypertension Code(s): I10 - ESSENTIAL (PRIMARY) HYPERTENSION Qualifiers: Hypertension type: essential hypertension Qualified Code(s): I10 - Essential (primary) hypertension (4) Asthma exacerbation in COPD Code(s): J44.1 - CHRONIC OBSTRUCTIVE PULMONARY DISEASE W (ACUTE) EXACERBATION J45.901 - UNSPECIFIED ASTHMA WITH (ACUTE) EXACERBATION Assessment/Plan Medrol IV Symbicort BD TX Spiriva O2 as needed Singulair Will need outpatient PFTs Peak flow monitoring No smoking counseled Dr Carty Problem List - Problems (1) Shortness of breath Code(s): R06.02 - SHORTNESS OF BREATH (2) Asthma Code(s): J45.909 - UNSPECIFIED ASTHMA, UNCOMPLICATED (3) Hypertension Code(s): I10 - ESSENTIAL (PRIMARY) HYPERTENSION Qualifiers: Hypertension type: essential hypertension Qualified Code(s): I10 - Essential (primary) hypertension (4) Asthma exacerbation in COPD Code(s): J44.1 - CHRONIC OBSTRUCTIVE PULMONARY DISEASE W (ACUTE) EXACERBATION J45.901 - UNSPECIFIED ASTHMA WITH (ACUTE) EXACERBATION
[2017-01-18 13:14] LABS: HYPOCHROMIA 3+; MICROCYTOSIS 1+; TARGET CELLS 2+
[2017-01-18 13:15] LABS: ANISOCYTOSIS 2+
--- NOTE | 2017-01-18 16:26 | PN ---
Physical Exam: SUBJECTIVE: Patient seen and examined breathing improved; oxygen saturation 94% on 2L NC; OBJECTIVE: Vital Signs Period Temp Pulse Resp BP Sys/Echevarria Pulse Ox Last 24 Hr 97.8 F-98.6 F 85-104 20-20 127-139/69-87 94-96 GENERAL: The patient is awake, alert, and fully oriented, in no acute distress. LUNGS: decreased air movement; bilateral wheezing and scattered rhonchi, HEART: Regular rate and rhythm, S1, S2 without murmur, rub or gallop. ABDOMEN: Soft, nontender, + distended, normoactive bowel sounds, no guarding, no rebound, no hepatosplenomegaly, no masses. EXTREMITIES: 2+ pulses, warm, well-perfused, no edema. NEUROLOGICAL: Cranial nerves II through XII grossly intact. Normal speech, gait not observed. PSYCH: Normal mood, normal affect. SKIN: Warm, dry, normal turgor, no rashes or lesions noted Laboratory Results - last 24 hr 01/18/17 01/18/17 05:35 05:35 WBC 14.9 H D RBC 4.81 Hgb 10.5 L Hct 34.4 MCV 71.6 L MCHC 30.5 L RDW 16.5 H Plt Count 166 MPV 9.1 Hypochromic-Microcytic 3+ Anisocytosis 2+ Microcytosis 1+ Target Cells 2+ Sodium 142 Potassium 4.3 D Chloride 105 Carbon Dioxide 28 Anion Gap 9 BUN 22 H Creatinine 1.0 Random Glucose 146 H Calcium 8.7 Active Medications Generic Name Dose Route Start Last Admin Trade Name Freq PRN Reason Stop Dose Admin Acetaminophen 650 mg 01/17/17 03:17 Tylenol - PO Q4H PRN FEVER OR PAIN Albuterol Sulfate 1 amp 01/17/17 03:17 01/18/17 11:00 Ventolin 0.083% Nebulizer Soln - NEB 1 amp Q4H PRN Administration SHORT OF BREATH/WHEEZING Albuterol Sulfate 1 amp 01/17/17 14:00 01/18/17 13:45 Ventolin 0.083% Nebulizer Soln - NEB 1 amp TIDR [facility]ACHARY Administration Budesonide/Formoterol Fumarate 2 puff 01/17/17 10:00 01/18/17 09:56 Symbicort 160/4.5mcg - IH Not Given BID ZACHARY Hydrochlorothiazide 25 mg 01/17/17 10:00 01/18/17 09:49 Hctz - PO 25 mg DAILY [facility] Administration Hydroxyzine HCl 25 mg 01/17/17 03:23 Atarax - PO TID PRN itchiness Methylprednisolone Sodium Succinate 40 mg 01/17/17 10:00 01/18/17 09:49 Solu-Medrol - IVPB 40 mg Q8H-IV [facility] Administration Montelukast Sodium 10 mg 01/17/17 22:00 01/17/17 22:45 Singulair - PO 10 mg HS [facility] Administration Ondansetron HCl 4 mg 01/17/17 03:17 Zofran Injection IVPB Q4H PRN NAUSEA Tiotropium [place] 1 puff 01/17/17 11:45 01/18/17 09:49 Spiriva - IH 1 puff DAILY [facility] Administration ASSESSMENT/PLAN: 56 year old female, former smoker, presents with shortness of breath admitted for acute asthma exacerbation/. 3 Acute hypoxic and hypercapnic respiratory failure secondary to acute asthma/ COPD exacerbation: -solumedrol 40mg IV q8h -symbicort 2puff bid; sched -d/c duoneb;already on LABA and steroid -spiriva -singulair; -albuterol neb qid; and prn -2 NC 2L -bipap as needed -CXR; no acute pathology -pulmonary consulted; outpatient PFTs #hypertention: -hctz 25mg po qd FEN: Fluids: po Elevtrolytes: wnl Diet: lo sodium VTE prophylaxis:lovenox Disposition: cont managment; IV steroids Visit type - Emergency Visit Emergency Visit: Yes ED Registration Date: 01/17/17 Care time: The patient presented to the Emergency Department on the above date and was hospitalized for further evaluation of their emergent condition. - New Patient This patient is new to me today: Yes Date on this admission: 01/18/17 - Critical Care Critical Care patient: No
--- NOTE | 2017-01-18 19:58 | PN ---
Teaching Attending Note Name of Resident: Hayde Bruce ATTENDING PHYSICIAN STATEMENT I saw and evaluated the patient. I reviewed the resident's note and discussed the case with the resident. I agree with the resident's findings and plan as documented. SUBJECTIVE: Patient complains of shortness of breath. OBJECTIVE: Vital Signs Period Temp Pulse Resp BP Sys/Echevarria Pulse Ox Last 24 Hr 97.8 F-98.2 F 85-102 20-20 127-142/69-87 94-96 HEART: S1S2, RRR LUNGS: Bilateral wheezes, rhonchi ABDOMEN: Soft, distended, non-tender, normal BS EXTREMITIES: No edema ASSESSMENT AND PLAN: This is a 56-year-old woman with a history of HTN, asthma, COPD, osteoarthritis who presented to the ER with SOB. 1. Acute hypoxic and hypercapnic respiratory failure secondary to acute exacerbation of COPD/asthma - Continue Solumedrol, Symbicort, Spiriva, Albuterol nebs, oxygen - Singulair added - BiPAP as needed 2. HTN - Continue HCTZ 3. Abdominal distention - Denies nausea, abdominal pain - BMs normal - US ordered
[2017-01-18] MEDS: MONTELUKAST NA 10 MG TABLET PO SCH (21:43)
[2017-01-19] MEDS: methylPREDNISolone NA SUCC 40 MG/1 ML VIAL IVPB SCH ×2 (01:09→12:22)
[2017-01-19] MEDS: ALBUTEROL SO4 0.083% IH SOL 2.5 MG/3 ML VIAL.NEB. NEB SCH ×3 (06:15→21:02)
[2017-01-19 07:54] LABS: BASOPHIL 0.1 % (0-2.0); MCHC 30.6 g/dl (32.0-36.0); MEAN CELL VOLUME 71.9 fl (80-96); MEAN PLT VOLUME 9.2 fl (7.5-11.1); NEUTROPHILS 90.5 % (42.8-82.8); PLATELET COUNT 196 K/MM3 (134-434); RDW 16.6 % (11.6-15.6); WHITE BLOOD COUNT 17.5 K/mm3 (4.0-10.0)
[2017-01-19 08:14] LABS: COCKROFT - GAULT 66.6655; CREATININE 1.1 mg/dL (0.55-1.02)
[2017-01-19] MEDS: TIOTROPIUM BROMIDE 18 MCG/INH (DEVICE W/ 5 CAPSULES) IH SCH (12:22)
[2017-01-19] MEDS: HYDROCHLOROTHIAZIDE 25 MG TABLET (FP) PO SCH (12:22)
[2017-01-19] MEDS: BUDESONIDE/FORMETEROL FUMARATE 160/4.5 mcg INHALER IH SCH (12:23)
--- NOTE | 2017-01-19 12:28 | PN ---
Progress Note (short form) - Note Progress Note: Breathing feels a little better today. Less HILL. No significant change in cough. No CP. Intake & Output 01/16/17 01/17/17 01/18/17 01/19/17 23:59 23:59 23:59 23:59 Intake Total 350 400 Balance 350 400 Weight 165 lb Last Vital Signs Temp Pulse Resp BP Pulse Ox 98.1 F 92 H 20 125/52 97 01/19/17 05:02 01/19/17 11:15 01/19/17 05:02 01/19/17 05:02 01/19/17 11:15 Active Medications Acetaminophen (Tylenol -) 650 mg PO Q4H PRN PRN Reason: FEVER OR PAIN Last Admin: 01/18/17 20:38 Dose: 650 mg Albuterol Sulfate (Ventolin 0.083% Nebulizer Soln -) 1 amp NEB Q4H PRN PRN Reason: SHORT OF BREATH/WHEEZING Last Admin: 01/18/17 11:00 Dose: 1 amp Albuterol Sulfate (Ventolin 0.083% Nebulizer Soln -) 1 amp NEB TIDR [facility] Last Admin: 01/19/17 06:15 Dose: 1 amp Budesonide/Formoterol Fumarate (Symbicort 160/4.5mcg -) 2 puff IH BID [facility] Last Admin: 01/18/17 21:45 Dose: Not Given Hydrochlorothiazide (Hctz -) 25 mg PO DAILY [facility] Last Admin: 01/18/17 09:49 Dose: 25 mg Hydroxyzine HCl (Atarax -) 25 mg PO TID PRN PRN Reason: itchiness Methylprednisolone Sodium Succinate (Solu-Medrol -) 40 mg IVPB Q8H-IV [facility] Last Admin: 01/19/17 01:09 Dose: 40 mg Montelukast Sodium (Singulair -) 10 mg PO HS [facility] Last Admin: 01/18/17 21:43 Dose: 10 mg Ondansetron HCl (Zofran Injection) 4 mg IVPB Q4H PRN PRN Reason: NAUSEA Tiotropium [place] (Spiriva -) 1 puff IH DAILY [facility] Last Admin: 01/18/17 09:49 Dose: 1 puff Constitutional: Yes: No Distress Eyes: Yes: Conjunctiva Clear, EOM Intact, Tearing. No: Ptosis, Sclera Icterus HENT: Yes: Atraumatic, Normocephalic Neck: Yes: Supple, Trachea Midline Cardiovascular: Yes: Regular Rate and Rhythm Respiratory: Yes: Cough, Diminished, On Nasal O2, Rhonchi, Less scattered expiratory wheeze. No: Accessory Muscle Use, Rales, Stridor, Tachypnea ...Inspection: Yes: WNL ...Clubbing: No Gastrointestinal: Yes: WNL, Normal Bowel Sounds, Soft Renal/: Yes: WNL Musculoskeletal: Yes: WNL Extremities: Yes: WNL Edema: No Peripheral Pulses WNL: Yes Integumentary: Yes: WNL Neurological: Yes: WNL, Alert, Oriented ...Motor Strength: WNL Psychiatric: Yes: WNL, Alert, Oriented Labs: Laboratory Results - last 24 hr 01/18/17 01/18/17 01/19/17 05:35 16:30 06:00 WBC 17.5 H RBC 4.75 Hgb 10.4 L Hct 34.1 MCV 71.9 L MCHC 30.6 L RDW 16.6 H Plt Count 196 MPV 9.2 Neutrophils % 90.5 H Lymphocytes % 7.3 L D Monocytes % 2.1 L Eosinophils % 0.0 D Basophils % 0.1 Hypochromic-Microcytic 3+ Anisocytosis 2+ Microcytosis 1+ Target Cells 2+ Sodium Potassium Chloride Carbon Dioxide Anion Gap BUN Creatinine Random Glucose Hemoglobin A1c % 5.8 Calcium 01/19/17 06:00 WBC RBC Hgb Hct MCV MCHC RDW Plt Count MPV Neutrophils % Lymphocytes % Monocytes % Eosinophils % Basophils % Hypochromic-Microcytic Anisocytosis Microcytosis Target Cells Sodium 141 Potassium 4.6 Chloride 103 Carbon Dioxide 27 Anion Gap 11 BUN 27 H D Creatinine 1.1 H Random Glucose 113 H D Hemoglobin A1c % Calcium 9.0 Problem List - Problems (1) Shortness of breath Code(s): R06.02 - SHORTNESS OF BREATH (2) Asthma Code(s): J45.909 - UNSPECIFIED ASTHMA, UNCOMPLICATED (3) Hypertension Code(s): I10 - ESSENTIAL (PRIMARY) HYPERTENSION Qualifiers: Hypertension type: essential hypertension Qualified Code(s): I10 - Essential (primary) hypertension (4) Asthma exacerbation in COPD Code(s): J44.1 - CHRONIC OBSTRUCTIVE PULMONARY DISEASE W (ACUTE) EXACERBATION J45.901 - UNSPECIFIED ASTHMA WITH (ACUTE) EXACERBATION Assessment/Plan Would keep Medrol IV at the same dose and if improved by AM -> can potentially change to Prednisone Symbicort BD TX Spiriva O2 as needed Singulair Will need outpatient PFTs Peak flow monitoring No smoking counseled Dr Carty Problem List - Problems (1) Shortness of breath Code(s): R06.02 - SHORTNESS OF BREATH (2) Asthma Code(s): J45.909 - UNSPECIFIED ASTHMA, UNCOMPLICATED (3) Hypertension Code(s): I10 - ESSENTIAL (PRIMARY) HYPERTENSION Qualifiers: Hypertension type: essential hypertension Qualified Code(s): I10 - Essential (primary) hypertension (4) Asthma exacerbation in COPD Code(s): J44.1 - CHRONIC OBSTRUCTIVE PULMONARY DISEASE W (ACUTE) EXACERBATION J45.901 - UNSPECIFIED ASTHMA WITH (ACUTE) EXACERBATION
--- NOTE | 2017-01-19 14:42 | PN ---
Physical Exam: SUBJECTIVE: Patient seen and examined, still with wheezing, productive cough of white sputum production, afebrile, white count rising. OBJECTIVE: Vital Signs Period Temp Pulse Resp BP Sys/Echevarria Pulse Ox Last 24 Hr 97.8 F-98.2 F 90-98 20-20 125-142/52-85 95-97 GENERAL: The patient is awake, alert, and fully oriented, in no acute distress. HEAD: Normal with no signs of trauma. EYES: PERRL, extraocular movements intact, sclera anicteric, conjunctiva clear. No ptosis. ENT: Ears normal, nares patent, oropharynx clear without exudates, moist mucous membranes. NECK: Trachea midline, full range of motion, supple. LUNGS: wheezing throughout b/l lung horner , decrease breath sound; congestion HEART: Regular rate and rhythm, S1, S2 without murmur, rub or gallop. ABDOMEN: Soft, nontender, + distention , normoactive bowel sounds, no guarding, no rebound, no hepatosplenomegaly, no masses. EXTREMITIES: 2+ pulses, warm, well-perfused, no edema. NEUROLOGICAL: Cranial nerves II through XII grossly intact. Normal speech, gait not observed. PSYCH: Normal mood, normal affect. SKIN: Warm, dry, normal turgor, no rashes or lesions noted Laboratory Results - last 24 hr 01/18/17 01/19/17 01/19/17 16:30 06:00 06:00 WBC 17.5 H RBC 4.75 Hgb 10.4 L Hct 34.1 MCV 71.9 L MCHC 30.6 L RDW 16.6 H Plt Count 196 MPV 9.2 Neutrophils % 90.5 H Lymphocytes % 7.3 L D Monocytes % 2.1 L Eosinophils % 0.0 D Basophils % 0.1 Sodium 141 Potassium 4.6 Chloride 103 Carbon Dioxide 27 Anion Gap 11 BUN 27 H D Creatinine 1.1 H Random Glucose 113 H D Hemoglobin A1c % 5.8 Calcium 9.0 Active Medications Generic Name Dose Route Start Last Admin Trade Name Freq PRN Reason Stop Dose Admin Acetaminophen 650 mg 01/17/17 03:17 01/18/17 20:38 Tylenol - PO 650 mg Q4H PRN Administration FEVER OR PAIN Albuterol Sulfate 1 amp 01/17/17 03:17 01/18/17 11:00 Ventolin 0.083% Nebulizer Soln - NEB 1 amp Q4H PRN Administration SHORT OF BREATH/WHEEZING Albuterol Sulfate 1 amp 01/17/17 14:00 01/19/17 06:15 Ventolin 0.083% Nebulizer Soln - NEB 1 amp TIDR [facility] Administration Budesonide/Formoterol Fumarate 2 puff 01/17/17 10:00 01/19/17 12:23 Symbicort 160/4.5mcg - IH 2 puff BID [facility] Administration Hydrochlorothiazide 25 mg 01/17/17 10:00 01/19/17 12:22 Hctz - PO 25 mg DAILY [facility] Administration Hydroxyzine HCl 25 mg 01/17/17 03:23 Atarax - PO TID PRN itchiness Methylprednisolone Sodium Succinate 40 mg 01/17/17 10:00 01/19/17 12:22 Solu-Medrol - IVPB 40 mg Q8H-IV [facility] Administration Montelukast Sodium 10 mg 01/17/17 22:00 01/18/17 21:43 Singulair - PO 10 mg HS [facility] Administration Ondansetron HCl 4 mg 01/17/17 03:17 01/19/17 12:22 Zofran Injection IVPB 4 mg Q4H PRN Administration NAUSEA Tiotropium [place] 1 puff 01/17/17 11:45 01/19/17 12:22 Spiriva - IH 1 puff DAILY [facility] Administration ABDOMINAL ULTRASOUND: Findings: The liver is somewhat echogenic consistent with fatty infiltration, measuring 14.8 cm in longitudinal dimension. No hepatic mass is identified. There is no intrahepatic biliary ductal dilatation. The common bile duct measures 4 mm. The gallbladder is sonographically normal. No stones, sludge, wall thickening or pericholecystic fluid is identified. The pancreatic duct appears minimally prominent measuring up to 3 mm, not significantly changed compared to prior study of April 14, 2015. The pancreatic tail is not optimally seen. No gross pancreatic mass is visualized. The spleen is unremarkable. The right kidney measures 10.5 cm in length and the left kidney measures 10.3 cm in length and the kidneys appear echogenic bilaterally, concerning for medical renal disease. ASSESSMENT/PLAN: 56 year old female, former smoker, presents with shortness of breath admitted for acute asthma exacerbation COPD. # Acute hypoxic and hypercapnic respiratory failure secondary to acute asthma/ COPD exacerbation: still with wheezing and chest tightness -continue solumedrol 40mg IV q8h -patient refuses symbicort -d/c duoneb;already on LABA and steroid -spiriva -singulair for allergy maybe be provoking asthma -albuterol neb qid; and prn (has not needed rescue inhaler) -2 NC 2L oxygen sat 97% -bipap as needed -CXR; no acute pathology -pulmonary consulted; outpatient PFTs #Abdominal distention with no associated symptoms; - denies n/v/changed on bowel; BM x2 daily normal; -LFT WNL -abdominal US details above: fatty liver; -hepatitis panel #leukocytosis: -afebrile; vs wnl -most likely due to steroids -monitor for clinical signs of infection #hypertention: -hctz 25mg po qd FEN: Fluids: po Elevtrolytes: wnl Diet: lo sodium VTE prophylaxis:lovenox Disposition: cont managment; IV steroids Visit type - Emergency Visit Emergency Visit: Yes ED Registration Date: 01/17/17 Care time: The patient presented to the Emergency Department on the above date and was hospitalized for further evaluation of their emergent condition. - New Patient This patient is new to me today: No - Critical Care Critical Care patient: No
--- NOTE | 2017-01-19 16:49 | PN ---
Teaching Attending Note Name of Resident: Hayde Bruce ATTENDING PHYSICIAN STATEMENT I saw and evaluated the patient. I reviewed the resident's note and discussed the case with the resident. I agree with the resident's findings and plan as documented. SUBJECTIVE:continues to be dyspnic on exertion. unable to walk to bathroom without becoming fatigued and dyspnic. continues to have productive cough of white sputum. denies CP, Fever, chills, N/V/C/D. BM this morning OBJECTIVE: Last Vital Signs Temp Pulse Resp BP Pulse Ox 98.5 F 103 H 20 125/76 97 01/19/17 14:58 01/19/17 14:58 01/19/17 14:58 01/19/17 14:58 01/19/17 11:15 General NAD CV S1 S2 RRR no murmur/rub/gallop Lungs mild scattered wheezing no rales or crackles abdomen soft NT/ND +BS obese ASSESSMENT AND PLAN: 56yo F with PMH HTN, COPD and OA presented to the ER and was admitted for further evaluation of their emergent condition 1. ACute COPD exacerbation- remains symptomatic. continue solumedrol at current dosing. not taking symbicort yesterday, pt states she had throat swelling after use requiring intervention to reopen her throat? however did take medication this morning. will d/w pulmonary alternative that can be used. cont nebs. will need outpatient follow up for further testing 2. Abdominal distention- no longer appreciated on my exam. u/s negative for acute pathology. states she had BM today. 3. HTN- controlled. cont home management 4. DVT ppx- EAM
[2017-01-19] MEDS: MONTELUKAST NA 10 MG TABLET PO SCH (21:30)
[2017-01-20] MEDS: methylPREDNISolone NA SUCC 40 MG/1 ML VIAL IVPB SCH ×5 (02:00→18:30)
[2017-01-20] MEDS: ALBUTEROL SO4 0.083% IH SOL 2.5 MG/3 ML VIAL.NEB. NEB SCH ×3 (06:15→22:05)
[2017-01-20 07:03] LABS: MCH 22.4 pg (25.7-33.7); MCHC 31.2 g/dl (32.0-36.0); MEAN CELL VOLUME 71.7 fl (80-96); MEAN PLT VOLUME 8.4 fl (7.5-11.1); PLATELET COUNT 174 K/MM3 (134-434); RDW 16.4 % (11.6-15.6); WHITE BLOOD COUNT 12.8 K/mm3 (4.0-10.0)
[2017-01-20 07:31] LABS: ALBUMIN 2.7 g/dl (3.4-5.0); CALCIUM 8.6 mg/dL (8.5-10.1); COCKROFT - GAULT 61.1065; CREATININE 1.2 mg/dL (0.55-1.02)
[2017-01-20 07:33] LABS: BILIRUBIN,TOTAL 0.2 mg/dL (0.2-1.0); TOT PROT 6.8 g/dl (6.4-8.2)
[2017-01-20] MEDS: BUDESONIDE/FORMETEROL FUMARATE 160/4.5 mcg INHALER IH SCH ×3 (09:03→21:17)
[2017-01-20] MEDS: amLODIPine BESYLATE 5 MG TABLET (FP) PO SCH (09:11)
--- NOTE | 2017-01-20 12:02 | MSN ---
Progress Note (SOAP) - Subjective Chief Complaint: Palpitations, chest pain History of Present Illness: MEDICAL STUDENT NOTE The patient is a 56 year old female with past medical history significant for HTN, COPD, and asthma who was admitted following acute exacerbation of asthma and COPD. Last night after showering the patient experienced shortness of breath which was remitted with a nebulizer treatment. The patient states that she still becomes short of breath each time she gets out of bed. She dos not have difficulty breathing when lying in bed. She also still has a cough that is productive of white sputum, although she notes she is bringing up less sputum now. Patient was made aware that she has a PRN order for nebulizer treatments. She denies nausea, vomiting, chest pain, diarrhea, constipation, headache, dizziness, changes in vision, or chills. - Current Medications Current Medications: Active Medications Acetaminophen (Tylenol -) 650 mg PO Q4H PRN PRN Reason: FEVER OR PAIN Last Admin: 01/18/17 20:38 Dose: 650 mg Albuterol Sulfate (Ventolin 0.083% Nebulizer Soln -) 1 amp NEB Q4H PRN PRN Reason: SHORT OF BREATH/WHEEZING Last Admin: 01/18/17 11:00 Dose: 1 amp Albuterol Sulfate (Ventolin 0.083% Nebulizer Soln -) 1 amp NEB TIDR [facility] Last Admin: 01/20/17 06:15 Dose: 1 amp Amlodipine Besylate (Norvasc -) 5 mg PO DAILY [facility] Last Admin: 01/20/17 09:11 Dose: 5 mg Budesonide/Formoterol Fumarate (Symbicort 160/4.5mcg -) 2 puff IH BID [facility] Last Admin: 01/20/17 09:03 Dose: Not Given Hydroxyzine HCl (Atarax -) 25 mg PO TID PRN PRN Reason: itchiness Methylprednisolone Sodium Succinate (Solu-Medrol -) 40 mg IVPB Q8H-IV [facility] Last Admin: 01/20/17 09:11 Dose: 40 mg Montelukast Sodium (Singulair -) 10 mg PO HS [facility] Last Admin: 01/19/17 21:30 Dose: 10 mg Ondansetron HCl (Zofran Injection) 4 mg IVPB Q4H PRN PRN Reason: NAUSEA Last Admin: 01/19/17 12:22 Dose: 4 mg Tiotropium [place] (Spiriva -) 1 puff IH DAILY [facility] Last Admin: 01/19/17 12:22 Dose: 1 puff - Objective Vital Signs: Vital Signs Temperature 98.8 F 01/20/17 06:00 Pulse Rate 109 H 01/20/17 11:40 Respiratory Rate 20 01/20/17 06:00 Blood Pressure 150/77 01/20/17 06:00 O2 Sat by Pulse Oximetry (%) 99 01/20/17 11:40 Constitutional: Yes: No Distress, Calm Eyes: Yes: WNL, Conjunctiva Clear HENT: Yes: WNL, Atraumatic, Normocephalic. No: Nasal Congestion, Pharyngeal Erythema, Tonsillar Exudate Neck: Yes: WNL, Supple, Trachea Midline Cardiovascular: Yes: WNL, Regular Rate and Rhythm, S1, S2. No: S3, S4 Respiratory: Yes: Cough, Wheezes (Diffuse, bilateral). No: Orthopnea, Rhonchi, Stridor Gastrointestinal: Yes: WNL, Normal Bowel Sounds. No: Hepatomegaly, Splenomegaly , Tenderness, Tenderness, Rebound, Vomiting Extremities: Yes: WNL. No: Calf Tenderness Peripheral Pulses WNL: Yes Peripheral Pulses: Left Radial: 2+, Right Radial: 2+, Left Doralis Pedis: 2+, Right Dorsalis Pedis: 2+ Edema: No (None, B/L UE and LE) Integumentary: Yes: WNL Neurological: Yes: WNL, Alert, Oriented Psychiatric: Yes: WNL, Alert, Oriented Labs Lab Results: CBC, BMP 01/20/17 06:00 01/20/17 06:00 Assessment/Plan MEDICAL STUDENT NOTE #Acute exacerbation of asthma/COPD - Ceftriaxone for productive cough - Pre and post testing - Nasal cannula 2L O2 PRN for shortness of breath, patient's oxygen saturation 96% on room air - Continue solu-medrol 40mg IVPB q8hr due to patient still wheezing and experiencing dyspnea on exertion - Continue ventolin nebulizer treatments TID and q4hr PRN - Continue spiriva 1 puff qD - Continue Singulair 10mg PO qHS - Recommend outpatient PFTs #Abdominal distension - Patient able to have bowel movements, no complain of pain, not appreciated on exam - Ultrasound showed fat infiltration on liver and bilateral echogenic kidneys #HTN - BP increased to 150//77 - D/C HCTZ and started Norvasc 5 mg PO qD #RAOUL - BUN 29, Cr: 1.1 - Possibly due to dehydration, discontinue HCTZ - Will continue to monitor, consider repeat BMP #Leukocytosis - WBC count dropped from 17.5 to 12.8 - Most likely due to IV steroids, no sign of infection, no fever - Will continue to monitor clinically #DVT Prophylaxis - SCDs - Ambulation as tolerated #Fluids - None #Electrolytes - None #Diet - No restrictions Disposition: Patient is still symptomatic, continue to monitor following addition of antibiotic.
--- NOTE | 2017-01-20 12:35 | PN ---
Progress Note, Physician History of Present Illness: PULMONARY ALERT,LESS CONGESTED,LESS DYSPNEIC,LESS COUGH - Current Medication List Current Medications: Active Medications Acetaminophen (Tylenol -) 650 mg PO Q4H PRN PRN Reason: FEVER OR PAIN Last Admin: 01/18/17 20:38 Dose: 650 mg Albuterol Sulfate (Ventolin 0.083% Nebulizer Soln -) 1 amp NEB Q4H PRN PRN Reason: SHORT OF BREATH/WHEEZING Last Admin: 01/18/17 11:00 Dose: 1 amp Albuterol Sulfate (Ventolin 0.083% Nebulizer Soln -) 1 amp NEB TIDR [facility] Last Admin: 01/20/17 06:15 Dose: 1 amp Amlodipine Besylate (Norvasc -) 5 mg PO DAILY [facility] Last Admin: 01/20/17 09:11 Dose: 5 mg Budesonide/Formoterol Fumarate (Symbicort 160/4.5mcg -) 2 puff IH BID [facility] Last Admin: 01/20/17 09:03 Dose: Not Given Hydroxyzine HCl (Atarax -) 25 mg PO TID PRN PRN Reason: itchiness Methylprednisolone Sodium Succinate (Solu-Medrol -) 40 mg IVPB Q8H-IV [facility] Last Admin: 01/20/17 09:11 Dose: 40 mg Montelukast Sodium (Singulair -) 10 mg PO HS [facility] Last Admin: 01/19/17 21:30 Dose: 10 mg Ondansetron HCl (Zofran Injection) 4 mg IVPB Q4H PRN PRN Reason: NAUSEA Last Admin: 01/19/17 12:22 Dose: 4 mg Tiotropium [place] (Spiriva -) 1 puff IH DAILY [facility] Last Admin: 01/19/17 12:22 Dose: 1 puff - Objective Vital Signs: Vital Signs Temperature 98.8 F 01/20/17 06:00 Pulse Rate 109 H 01/20/17 11:40 Respiratory Rate 20 01/20/17 06:00 Blood Pressure 150/77 01/20/17 06:00 O2 Sat by Pulse Oximetry (%) 99 01/20/17 11:40 Constitutional: Yes: Well Nourished, Calm Eyes: Yes: WNL HENT: Yes: WNL Neck: Yes: WNL Cardiovascular: Yes: Regular Rate and Rhythm, S1, S2 Respiratory: Yes: Wheezes (FEW SCATTERED RICHA WHEEZES) Gastrointestinal: Yes: Normal Bowel Sounds, Soft Extremities: Yes: WNL Edema: No Labs: CBC, BMP 01/20/17 06:00 01/20/17 06:00 Assessment/Plan Problem List - Problems (1) Shortness of breath Code(s): R06.02 - SHORTNESS OF BREATH (2) Asthma Code(s): J45.909 - UNSPECIFIED ASTHMA, UNCOMPLICATED (3) Hypertension Code(s): I10 - ESSENTIAL (PRIMARY) HYPERTENSION Qualifiers: Hypertension type: essential hypertension Qualified Code(s): I10 - Essential (primary) hypertension (4) Asthma exacerbation in COPD Code(s): J44.1 - CHRONIC OBSTRUCTIVE PULMONARY DISEASE W (ACUTE) EXACERBATION J45.901 - UNSPECIFIED ASTHMA WITH (ACUTE) EXACERBATION Assessment/Plan medrol [id number] Prednisone in am Symbicort BD TX Spiriva O2 as needed Singulair PFTs Peak flow monitoring No smoking counseled Dr Munguia Problem List - Problems (1) Shortness of breath Code(s): R06.02 - SHORTNESS OF BREATH (2) Asthma Code(s): J45.909 - UNSPECIFIED ASTHMA, UNCOMPLICATED (3) Hypertension Code(s): I10 - ESSENTIAL (PRIMARY) HYPERTENSION Qualifiers: Hypertension type: essential hypertension Qualified Code(s): I10 - Essential (primary) hypertension (4) Asthma exacerbation in COPD Code(s): J44.1 - CHRONIC OBSTRUCTIVE PULMONARY DISEASE W (ACUTE) EXACERBATION J45.901 - UNSPECIFIED ASTHMA WITH (ACUTE) EXACERBATION
[2017-01-20] MEDS ORDERED: methylPREDNISolone NA SUCC 40 MG/1 ML VIAL IVPB SCH (12:45)
[2017-01-20 12:47] LABS: PLATELET ESTIMATE ADEQUATE (NORMAL)
--- NOTE | 2017-01-20 14:06 | PN ---
Addendum entered and electronically signed by Hayde Bruce RES 01/20/17 14 :15: Spoke with pulmonary; does not feel need for antibiotics at this point; will increase steroids back to 40mg q8h Original Note: Physical Exam: SUBJECTIVE: Patient seen and examined still complains of sob; not improving; cough with white sputum production, afebrile. State progressive sob with exertion. Post exercise )2 88% on RA. OBJECTIVE: Vital Signs Period Temp Pulse Resp BP Sys/Echevarria Pulse Ox Last 24 Hr 98.5 F-98.9 F 89-109 20-20 121-150/72-82 94-99 GENERAL: The patient is awake, alert, and fully oriented, in no acute distress. HEAD: Normal with no signs of trauma. EYES: PERRL, extraocular movements intact, sclera anicteric, conjunctiva clear. No ptosis. ENT: Ears normal, nares patent, oropharynx clear without exudates, moist mucous membranes. NECK: Trachea midline, full range of motion, supple. LUNGS: decreased breath sounds; cont with chest tightness, b/l wheezes most prominent b/l apex, but throughout HEART: Regular rate and rhythm, S1, S2, + murmur, rub or gallop. ABDOMEN: Soft, nontender, nondistended, normoactive bowel sounds, no guarding, no rebound, no hepatosplenomegaly, no masses. EXTREMITIES: 2+ pulses, warm, well-perfused, no edema. NEUROLOGICAL: Cranial nerves II through XII grossly intact. Normal speech, gait not observed. PSYCH: Normal mood, normal affect. SKIN: Warm, dry, normal turgor, no rashes or lesions noted Laboratory Results - last 24 hr 01/20/17 01/20/17 06:00 06:00 WBC 12.8 H RBC 4.74 Hgb 10.6 L Hct 34.0 MCV 71.7 L MCHC 31.2 L RDW 16.4 H Plt Count 174 MPV 8.4 Neutrophils % 91.0 H Lymphocytes % 7.0 L Monocytes % 2.0 L Differential Comment Manual diff done Platelet Estimate Adequate Sodium 142 Potassium 4.9 Chloride 102 Carbon Dioxide 35 H D Anion Gap 5 L BUN 29 H Creatinine 1.2 H Creat Clearance w eGFR 46.30 Random Glucose 129 H Calcium 8.6 Total Bilirubin 0.2 AST 11 L D ALT 18 Alkaline Phosphatase 108 Total Protein 6.8 Albumin 2.7 L Active Medications Generic Name Dose Route Start Last Admin Trade Name Freq PRN Reason Stop Dose Admin Acetaminophen 650 mg 01/17/17 03:17 01/18/17 20:38 Tylenol - PO 650 mg Q4H PRN Administration FEVER OR PAIN Albuterol Sulfate 1 amp 01/17/17 03:17 01/18/17 11:00 Ventolin 0.083% Nebulizer Soln - NEB 1 amp Q4H PRN Administration SHORT OF BREATH/WHEEZING Albuterol Sulfate 1 amp 01/17/17 14:00 01/20/17 13:45 Ventolin 0.083% Nebulizer Soln - NEB 1 amp TIDR ZACHARY Administration Amlodipine Besylate 5 mg 01/20/17 10:00 01/20/17 09:11 Norvasc - PO 5 mg DAILY ZACHARY Administration Budesonide/Formoterol Fumarate 2 puff 01/20/17 10:00 01/20/17 09:03 Symbicort 160/4.5mcg - IH Not Given BID ZACHARY Hydroxyzine HCl 25 mg 01/17/17 03:23 Atarax - PO TID PRN itchiness Methylprednisolone Sodium Succinate 40 mg 01/20/17 12:45 01/20/17 13:46 Solu-Medrol - IVPB Not Given BID ZACHARY Montelukast Sodium 10 mg 01/17/17 22:00 01/19/17 21:30 Singulair - PO 10 mg HS ZACHARY Administration Ondansetron HCl 4 mg 01/17/17 03:17 01/19/17 12:22 Zofran Injection IVPB 4 mg Q4H PRN Administration NAUSEA Tiotropium [place] 1 puff 01/17/17 11:45 01/19/17 12:22 Spiriva - IH 1 puff DAILY ZACHARY Administration ABDOMINAL ULTRASOUND: Findings: The liver is somewhat echogenic consistent with fatty infiltration, measuring 14.8 cm in longitudinal dimension. No hepatic mass is identified. There is no intrahepatic biliary ductal dilatation. The common bile duct measures 4 mm. The gallbladder is sonographically normal. No stones, sludge, wall thickening or pericholecystic fluid is identified. The pancreatic duct appears minimally prominent measuring up to 3 mm, not significantly changed compared to prior study of April 14, 2015. The pancreatic tail is not optimally seen. No gross pancreatic mass is visualized. The spleen is unremarkable. The right kidney measures 10.5 cm in length and the left kidney measures 10.3 cm in length and the kidneys appear echogenic bilaterally, concerning for medical renal disease. ASSESSMENT/PLAN: 56 year old female, former smoker, presents with shortness of breath admitted for acute asthma exacerbation COPD. # Acute hypoxic and hypercapnic respiratory failure secondary to acute asthma/ COPD exacerbation: still with wheezing and chest tightness -consider trial of antibiotics; -taper solumedrol 40mg IV to BID -continue symbicort -spiriva -singulair for allergy maybe be provoking asthma -albuterol neb qid; and prn -bipap as needed -pre and post exercise oxygen: 94% /88% -CXR; no acute pathology -pulmonary consulted; outpatient PFTs #Acute kidney injury may be prerenal or intrinsic due to HTCZ -hold nephrotoxic agents including HTCZ -monitor Cr; start IVF if worsens #Abdominal distention with no associated symptoms; -denies n/v/changed on bowel; BM +; flatus+ -LFT WNL -abdominal US details above: fatty liver; -hepatitis panel pending #leukocytosis most likely secondary to steroids: improved -afebrile; -most likely due to steroids -monitor for clinical signs of infection #hypertention: -start amlodipine 5mg po daily FEN: Fluids: po Elevtrolytes: wnl Diet: low sodium VTE prophylaxis: lovenox Disposition: cont managment; IV steroids Visit type - Emergency Visit Emergency Visit: Yes ED Registration Date: 01/17/17 Care time: The patient presented to the Emergency Department on the above date and was hospitalized for further evaluation of their emergent condition. - New Patient This patient is new to me today: No - Critical Care Critical Care patient: No
--- NOTE | 2017-01-20 14:47 | PN ---
Teaching Attending Note Name of Resident: Hayde Bruce ATTENDING PHYSICIAN STATEMENT I saw and evaluated the patient. I reviewed the resident's note and discussed the case with the resident. I agree with the resident's findings and plan as documented. SUBJECTIVE:states no improvement on exertion. continues to have productive cough of white phlegm, no improvement. denies CP, SOB,fever, chills, N/V/C/D OBJECTIVE: Last Vital Signs Temp Pulse Resp BP Pulse Ox 98.1 F 109 H 20 122/67 99 01/20/17 10:00 01/20/17 11:40 01/20/17 10:00 01/20/17 10:00 01/20/17 11:40 General NAD CV S1 S2 RRR no murmur/rub/gallop Lungs mild scattered wheezing no rales or crackles abdomen soft NT/ND +BS obese ASSESSMENT AND PLAN: 56yo F with PMH HTN, COPD and OA presented to the ER and was admitted for further evaluation of their emergent condition 1. Acute COPD exacerbation- remains symptomatic. saturating 96% on RA. encouraged pt to use symbicort as no adverse reactions after use yesterday. since no significant improvement will try short course of abx as continues to have productive sputum. continue solumedrol at current dosing. check pre and post. will need outpatient PFT. pulmonary on board. 2. Abdominal distention-improved, 3. RAOUL- likely dehydration, hold HCTZ. avoid nephrotoxic agents. if does not improve will start ivf. 4. HTN- above goal. will start norvasc as also holding diuretic. titrate to optimize control 5. DVT ppx- EAM
[2017-01-20] MEDS: TIOTROPIUM BROMIDE 18 MCG/INH (DEVICE W/ 5 CAPSULES) IH SCH (16:57)
[2017-01-20] MEDS: CEFTRIAXONE 50 ML IVPB SCH (16:57)
[2017-01-20] MEDS: ALBUTEROL SO4 0.083% IH SOL 2.5 MG/3 ML VIAL.NEB. NEB PRN (18:16)
[2017-01-20] MEDS ORDERED: PT OWN MED DRAWER 7, Y5N ONE ×2 (18:17→20:51)
[2017-01-20] MEDS: MONTELUKAST NA 10 MG TABLET PO SCH (21:17)
[2017-01-21] MEDS: methylPREDNISolone NA SUCC 40 MG/1 ML VIAL IVPB SCH ×4 (02:01→22:05)
[2017-01-21] MEDS: ALBUTEROL SO4 0.083% IH SOL 2.5 MG/3 ML VIAL.NEB. NEB SCH ×4 (06:15→22:53)
[2017-01-21 07:50] LABS: BASOPHIL 0.1 % (0-2.0); MCH 22.1 pg (25.7-33.7); MEAN CELL VOLUME 71.3 fl (80-96); MEAN PLT VOLUME 8.9 fl (7.5-11.1); PLATELET COUNT 192 K/MM3 (134-434); RDW 16.2 % (11.6-15.6)
[2017-01-21 08:39] LABS: CALCIUM 8.6 mg/dL (8.5-10.1); COCKROFT - GAULT 66.6655; CREATININE 1.1 mg/dL (0.55-1.02)
--- NOTE | 2017-01-21 10:03 | PN ---
Progress Note (short form) - Note Progress Note: Breathing feels about the same. Still with HILL. Generalized body aches. O2 saturation 96% Intake & Output 01/18/17 01/19/17 01/20/17 01/21/17 23:59 23:59 23:59 23:59 Intake Total 350 400 200 50 Balance 350 400 200 50 Last Vital Signs Temp Pulse Resp BP Pulse Ox 98.5 F 88 20 142/72 99 01/21/17 06:07 01/21/17 06:07 01/21/17 06:07 01/21/17 06:07 01/20/17 21:00 Active Medications Acetaminophen (Tylenol -) 650 mg PO Q4H PRN PRN Reason: FEVER OR PAIN Last Admin: 01/18/17 20:38 Dose: 650 mg Albuterol Sulfate (Ventolin 0.083% Nebulizer Soln -) 1 amp NEB Q4H PRN PRN Reason: SHORT OF BREATH/WHEEZING Last Admin: 01/20/17 18:16 Dose: 1 amp Albuterol Sulfate (Ventolin 0.083% Nebulizer Soln -) 1 amp NEB TIDR ZACHARY Last Admin: 01/21/17 06:15 Dose: 1 amp Amlodipine Besylate (Norvasc -) 5 mg PO DAILY ZACHARY Last Admin: 01/20/17 09:11 Dose: 5 mg Budesonide/Formoterol Fumarate (Symbicort 160/4.5mcg -) 2 puff IH BID ZACHARY Last Admin: 01/20/17 21:17 Dose: Not Given Hydroxyzine HCl (Atarax -) 25 mg PO TID PRN PRN Reason: itchiness Ceftriaxone Sodium (Rocephin 1gm Ivpb (Pre-Docked)) 50 mls @ 200 mls/hr IVPB DAILY ZACHARY Last Admin: 01/20/17 16:57 Dose: 200 mls/hr Methylprednisolone Sodium Succinate (Solu-Medrol -) 40 mg IVPB Q8H-IV ZACHARY Last Admin: 01/21/17 02:01 Dose: 40 mg Montelukast Sodium (Singulair -) 10 mg PO HS [facility] Last Admin: 01/20/17 21:17 Dose: 10 mg Ondansetron HCl (Zofran Injection) 4 mg IVPB Q4H PRN PRN Reason: NAUSEA Last Admin: 01/19/17 12:22 Dose: 4 mg Tiotropium [place] (Spiriva -) 1 puff IH DAILY ZACHARY Last Admin: 01/20/17 16:57 Dose: 1 puff Constitutional: Yes: No Distress Eyes: Yes: Conjunctiva Clear, EOM Intact, Tearing. No: Ptosis, Sclera Icterus HENT: Yes: Atraumatic, Normocephalic Neck: Yes: Supple, Trachea Midline Cardiovascular: Yes: Regular Rate and Rhythm Respiratory: Yes: Cough, Diminished, On Nasal O2, Rhonchi, Minimal scattered expiratory wheeze. No: Accessory Muscle Use, Rales, Stridor ...Inspection: Yes: WNL ...Clubbing: No Gastrointestinal: Yes: WNL, Normal Bowel Sounds, Soft Renal/: Yes: WNL Musculoskeletal: Yes: WNL Extremities: Yes: WNL Edema: No Peripheral Pulses WNL: Yes Integumentary: Yes: WNL Neurological: Yes: WNL, Alert, Oriented ...Motor Strength: WNL Psychiatric: Yes: WNL, Alert, Oriented Labs: Laboratory Results - last 24 hr 01/20/17 01/20/17 01/21/17 06:00 06:00 06:00 WBC 13.0 H RBC 4.72 Hgb 10.4 L Hct 33.7 MCV 71.3 L MCHC 31.0 L RDW 16.2 H Plt Count 192 MPV 8.9 Neutrophils % 91.0 H 87.0 H Lymphocytes % 7.0 L 8.3 Monocytes % 2.0 L 4.6 D Eosinophils % 0.0 Basophils % 0.1 Differential Comment Manual diff done Platelet Estimate Adequate Sodium Potassium Chloride Carbon Dioxide Anion Gap BUN Creatinine Random Glucose Calcium Hepatitis C Antibody 0.8 01/21/17 06:00 WBC RBC Hgb Hct MCV MCHC RDW Plt Count MPV Neutrophils % Lymphocytes % Monocytes % Eosinophils % Basophils % Differential Comment Platelet Estimate Sodium 142 Potassium 4.4 Chloride 103 Carbon Dioxide 32 Anion Gap 7 L BUN 31 H Creatinine 1.1 H Random Glucose 153 H Calcium 8.6 Hepatitis C Antibody Problem List - Problems (1) Shortness of breath Code(s): R06.02 - SHORTNESS OF BREATH (2) Asthma Code(s): J45.909 - UNSPECIFIED ASTHMA, UNCOMPLICATED (3) Hypertension Code(s): I10 - ESSENTIAL (PRIMARY) HYPERTENSION Qualifiers: Hypertension type: essential hypertension Qualified Code(s): I10 - Essential (primary) hypertension (4) Asthma exacerbation in COPD Code(s): J44.1 - CHRONIC OBSTRUCTIVE PULMONARY DISEASE W (ACUTE) EXACERBATION J45.901 - UNSPECIFIED ASTHMA WITH (ACUTE) EXACERBATION Assessment/Plan Lower Medrol dose to BID -> if improved by AM -> can potentially change to Prednisone Symbicort Spiriva daily Noted ABX started -> do not suspect bacterial infection O2 as needed Singulair Will need outpatient PFTs No smoking counseled Will benefit from Pulmonary Rehab post discharge O2 saturation 88% post ambulation -> Would set up for Home O2 -> I advised patient about this and she is concerned as she is currently living with her mother Dr Carty Problem List - Problems (1) Shortness of breath Code(s): R06.02 - SHORTNESS OF BREATH (2) Asthma Code(s): J45.909 - UNSPECIFIED ASTHMA, UNCOMPLICATED (3) Hypertension Code(s): I10 - ESSENTIAL (PRIMARY) HYPERTENSION Qualifiers: Hypertension type: essential hypertension Qualified Code(s): I10 - Essential (primary) hypertension (4) Asthma exacerbation in COPD Code(s): J44.1 - CHRONIC OBSTRUCTIVE PULMONARY DISEASE W (ACUTE) EXACERBATION J45.901 - UNSPECIFIED ASTHMA WITH (ACUTE) EXACERBATION
[2017-01-21] MEDS: amLODIPine BESYLATE 5 MG TABLET (FP) PO SCH (10:33)
[2017-01-21] MEDS: CEFTRIAXONE 50 ML IVPB SCH (10:33)
[2017-01-21] MEDS: ALBUTEROL SO4 0.083% IH SOL 2.5 MG/3 ML VIAL.NEB. NEB PRN (10:39)
[2017-01-21] MEDS: BUDESONIDE/FORMETEROL FUMARATE 160/4.5 mcg INHALER IH SCH ×2 (10:40→22:05)
[2017-01-21] MEDS: TIOTROPIUM BROMIDE 18 MCG/INH (DEVICE W/ 5 CAPSULES) IH SCH (10:40)
--- NOTE | 2017-01-21 12:08 | MSN ---
Progress Note (SOAP) - Subjective Chief Complaint: Shortness of breath History of Present Illness: MEDICAL STUDENT NOTE The patient is a 56 year old female with past medical history significant for HTN, COPD, and asthma who was admitted on 01/17 for exacerbation of asthma and COPD. Last night the patient complained of anxiety and told the RN that she has been diagnosed with anxiety and takes a medication for anxiety at home, but she was unable to remember the name. When asked this morning, she stated that she no longer feels anxious. The patient has been documented as refusing her second dose of symbicort last night. She denies refusing the symbicort when asked this morning and stated that she does not have a problem taking it twice a day as prescribed. The patient stated that she felt better this morning but still has a cough with occasional white sputum production. She denied nausea, diarrhea, constipation, headache, chest pain, palpitations, and stomach pain. Patient was at 96% O2 saturation on room air. - Current Medications Current Medications: Active Medications Acetaminophen (Tylenol -) 650 mg PO Q4H PRN PRN Reason: FEVER OR PAIN Last Admin: 01/18/17 20:38 Dose: 650 mg Albuterol Sulfate (Ventolin 0.083% Nebulizer Soln -) 1 amp NEB Q4H PRN PRN Reason: SHORT OF BREATH/WHEEZING Last Admin: 01/21/17 10:39 Dose: 1 amp Albuterol Sulfate (Ventolin 0.083% Nebulizer Soln -) 1 amp NEB TIDR [facility] Last Admin: 01/21/17 06:15 Dose: 1 amp Amlodipine Besylate (Norvasc -) 5 mg PO DAILY [facility] Last Admin: 01/21/17 10:33 Dose: 5 mg Budesonide/Formoterol Fumarate (Symbicort 160/4.5mcg -) 2 puff IH BID [facility] Last Admin: 01/21/17 10:40 Dose: 2 puff Hydroxyzine HCl (Atarax -) 25 mg PO TID PRN PRN Reason: itchiness Ceftriaxone Sodium (Rocephin 1gm Ivpb (Pre-Docked)) 50 mls @ 200 mls/hr IVPB DAILY [facility] Last Admin: 01/21/17 10:33 Dose: 200 mls/hr Methylprednisolone Sodium Succinate (Solu-Medrol -) 40 mg IVPB BID [facility] Last Admin: 01/21/17 10:41 Dose: 40 mg Montelukast Sodium (Singulair -) 10 mg PO HS [facility] Last Admin: 01/20/17 21:17 Dose: 10 mg Ondansetron HCl (Zofran Injection) 4 mg IVPB Q4H PRN PRN Reason: NAUSEA Last Admin: 01/19/17 12:22 Dose: 4 mg Tiotropium [place] (Spiriva -) 1 puff IH DAILY [facility] Last Admin: 01/21/17 10:40 Dose: 1 puff - Objective Vital Signs: Vital Signs Temperature 98.6 F 01/21/17 10:31 Pulse Rate 96 H 01/21/17 10:39 Respiratory Rate 20 01/21/17 10:31 Blood Pressure 146/61 01/21/17 10:31 O2 Sat by Pulse Oximetry (%) 98 01/21/17 10:39 Constitutional: Yes: Well Nourished, Calm. No: No Distress Eyes: Yes: WNL, Conjunctiva Clear HENT: Yes: WNL, Atraumatic, Normocephalic Neck: Yes: WNL, Supple, Trachea Midline Cardiovascular: Yes: WNL, Regular Rate and Rhythm, S1, S2. No: Pulse Irregular , S3, S4 Respiratory: Yes: Cough (Non-productive), Rhonchi (bilateral lower lobes), Wheezes (Diffuse, bilateral) Gastrointestinal: Yes: WNL, Normal Bowel Sounds. No: Hepatomegaly, Splenomegaly , Tenderness Musculoskeletal: No: Back Pain, Joint Stiffness, Joint Swelling Peripheral Pulses WNL: Yes Peripheral Pulses: Left Radial: 2+, Right Radial: 2+, Left Doralis Pedis: 2+, Right Dorsalis Pedis: 2+ Edema: No (None B/L UE and LE) Integumentary: Yes: WNL. No: Bruising, Erythema Neurological: Yes: WNL, Alert, Oriented Psychiatric: Yes: WNL, Alert, Oriented Labs Lab Results: CBC, BMP 01/21/17 06:00 01/21/17 06:00 Assessment/Plan MEDICAL STUDENT NOTE #Acute exacerbation of asthma/COPD - Decrease solu-medrol to 40mg BID, continue to monitor. If signs of clinical improvement, will try PO steroids in AM - Discontinue scheduled nebulizer treatments, keep PRN order - Continue Ceftriaxone 1g qD for productive cough - Keep NC O2 PRN as patient saturated 96% on room air - Order Pre and Post exercise O2 testing for in AM. Patient may need O2 at home based on prior test (88% at post) - Continue symbicort 160/4.5mcg BID - Continue spiriva 1 puff qD - Continue Singulair 10mg PO qHS - Counseled no smoking - Recommend outpatient PFTs #Anxiety - Consider calling pharmacy regarding name of medication patient takes at home #Abdominal distension, resolved - Patient able to have bowel movements, no complaints, no complain of pain, distension not appreciated on exam - Ultrasound showed fat infiltration on liver and bilateral echogenic kidneys, - Hepatitis C level: Indeterminate #HTN - BP elevated this AM with 142/72 and 146/61 before receiving norvasc - Continue norvasc 5mg qD and continue to monitor BP for improvement #RAOUL - BUN 31, Cr decreased from 1.2 to 1.1. Cr is downward trend, elevated BUN may be due to IV steroids - Continue to monitor, repeat BMP #Leukocytosis - WBC count 13.0 - Most likely due to IV steroids, no sign of infection, no fever - Will continue to monitor clinically #DVT Prophylaxis - SCDs - Ambulation as tolerated #Fluids - None #Electrolytes - None #Diet - Low Na Disposition: Continue to monitor patient on antibiotic and lower frequency steroids, get pre and post exercise O2 testing in AM. Possible discharge tomorrow if dyspnea on exertion has improved.
--- NOTE | 2017-01-21 14:59 | PN ---
Physical Exam: SUBJECTIVE: Patient seen and examined admits to improved breathing, less wheezing OBJECTIVE: Vital Signs Period Temp Pulse Resp BP Sys/Echevarria Pulse Ox Last 24 Hr 98 F-98.6 F 88-97 20-20 128-146/61-78 98-99 GENERAL: The patient is awake, alert, and fully oriented, in no acute distress. HEAD: Normal with no signs of trauma. EYES: PERRL, extraocular movements intact, sclera anicteric, conjunctiva clear. No ptosis. ENT: Ears normal, nares patent, oropharynx clear without exudates, moist mucous membranes. NECK: Trachea midline, full range of motion, supple. LUNGS: Breath sounds decreased; less wheezing, HEART: Regular rate and rhythm, S1, S2 without murmur, rub or gallop. ABDOMEN: Soft, nontender, notdistended, normoactive bowel sounds, no guarding, no rebound, no hepatosplenomegaly, no masses. EXTREMITIES: 2+ pulses, warm, well-perfused, no edema. NEUROLOGICAL: Cranial nerves II through XII grossly intact. Normal speech, gait not observed. PSYCH: Normal mood, normal affect. SKIN: Warm, dry, normal turgor, no rashes or lesions noted Laboratory Results - last 24 hr 01/20/17 01/21/17 01/21/17 06:00 06:00 06:00 WBC 13.0 H RBC 4.72 Hgb 10.4 L Hct 33.7 MCV 71.3 L MCHC 31.0 L RDW 16.2 H Plt Count 192 MPV 8.9 Neutrophils % 87.0 H Lymphocytes % 8.3 Monocytes % 4.6 D Eosinophils % 0.0 Basophils % 0.1 Sodium 142 Potassium 4.4 Chloride 103 Carbon Dioxide 32 Anion Gap 7 L BUN 31 H Creatinine 1.1 H Random Glucose 153 H Calcium 8.6 Hepatitis C Antibody 0.8 Active Medications Generic Name Dose Route Start Last Admin Trade Name Freq PRN Reason Stop Dose Admin Acetaminophen 650 mg 01/17/17 03:17 01/18/17 20:38 Tylenol - PO 650 mg Q4H PRN Administration FEVER OR PAIN Albuterol Sulfate 1 amp 01/17/17 03:17 01/21/17 10:39 Ventolin 0.083% Nebulizer Soln - NEB 1 amp Q4H PRN Administration SHORT OF BREATH/WHEEZING Albuterol Sulfate 1 amp 01/17/17 14:00 01/21/17 14:17 Ventolin 0.083% Nebulizer Soln - NEB Not Given TIDR ZACHARY Amlodipine Besylate 5 mg 01/20/17 10:00 01/21/17 10:33 Norvasc - PO 5 mg DAILY ZACHARY Administration Budesonide/Formoterol Fumarate 2 puff 01/20/17 10:00 01/21/17 10:40 Symbicort 160/4.5mcg - IH 2 puff BID ZACHARY Administration Hydroxyzine HCl 25 mg 01/17/17 03:23 Atarax - PO TID PRN itchiness Ceftriaxone Sodium 50 mls @ 200 mls/hr 01/20/17 15:00 01/21/17 10:33 Rocephin 1gm Ivpb (Pre-Docked) IVPB 200 mls/hr DAILY ZACHARY Administration Methylprednisolone Sodium Succinate 40 mg 01/21/17 11:00 01/21/17 10:41 Solu-Medrol - IVPB 40 mg BID ZACHARY Administration Montelukast Sodium 10 mg 01/17/17 22:00 01/20/17 21:17 Singulair - PO 10 mg HS ZACHARY Administration Ondansetron HCl 4 mg 01/17/17 03:17 01/19/17 12:22 Zofran Injection IVPB 4 mg Q4H PRN Administration NAUSEA Tiotropium [place] 1 puff 01/17/17 11:45 01/21/17 10:40 Spiriva - IH 1 puff DAILY ZACHARY Administration ASSESSMENT/PLAN: 56 year old female, current smoker, presents with shortness of breath admitted for acute asthma exacerbation, COPD. # Acute hypoxic and hypercapnic respiratory failure secondary to acute asthma/ COPD exacerbation:improved -ceftriaxone Day2 -taper solumedrol 40mg IV to BID -continue symbicort -spiriva -singulair for allergy maybe be provoking asthma -albuterol neb qid; and prn -bipap as needed -pre and post exercise oxygen in am to assess need for home o2 -CXR; no acute pathology -pulmonary consulted; outpatient PFTs #Acute kidney injury may be prerenal or intrinsic due to HTCZ: improved -hold nephrotoxic agents including HTCZ #Abdominal distention with no associated symptoms;improved -denies n/v/changed on bowel; BM +; flatus+ -LFT WNL -abdominal US details above: fatty liver; -hepatitis panel #leukocytosis most likely secondary to steroids: improved -afebrile; #hypertention: controlled -start amlodipine 5mg po daily FEN: Fluids: po Elevtrolytes: wnl Diet: low sodium VTE prophylaxis: lovenox Disposition: cont managment; IV steroids; change to po in am; see what pre and post O2 is; most likey can dc tomorrow Visit type - Emergency Visit Emergency Visit: Yes ED Registration Date: 01/17/17 Care time: The patient presented to the Emergency Department on the above date and was hospitalized for further evaluation of their emergent condition. - New Patient This patient is new to me today: No - Critical Care Critical Care patient: No
--- NOTE | 2017-01-21 17:28 | PN ---
Teaching Attending Note Name of Resident: Hayde Bruce ATTENDING PHYSICIAN STATEMENT I saw and evaluated the patient. I reviewed the resident's note and discussed the case with the resident. I agree with the resident's findings and plan as documented. SUBJECTIVE:states that her dyspnea on exertion has improved but has not gotten out of bed. states productive cough has resolved. denies CP, SOB, fever, chills OBJECTIVE: Last Vital Signs Temp Pulse Resp BP Pulse Ox 98.3 F 122 H 20 145/96 98 01/21/17 15:45 01/21/17 15:45 01/21/17 15:45 01/21/17 15:45 01/21/17 10:39 General NAD CV S1 S2 RRR no murmur/rub/gallop Lungs mild scattered wheezing no rales or crackles abdomen soft NT/ND +BS obese ASSESSMENT AND PLAN: 56yo F with PMH HTN, COPD and OA presented to the ER and was admitted for further evaluation of their emergent condition 1. Acute COPD exacerbation-improved. will decrease solumedrol to BID dosing, on Ceftriaxone day 2. will give short course of abx as having productive cough and was not improving. assessed and qualified for home O2. will repeat in AM to see if needed. encouraged to use symbicort which she intermittently refuses. educated that this is maintenance medication and needed to be taken daily regardless of symptoms. will need outpatient PFT and pulmonary follow up. 2. Abdominal distention-improved, 3. RAOUL- likely dehydration,improved. 4. HTN- improved. on norvasc 5. DVT ppx- EAM 6. if continues to improve plan is to d/c in am on steroid taper
[2017-01-21] MEDS: MONTELUKAST NA 10 MG TABLET PO SCH (22:05)
[2017-01-21] MEDS ORDERED: MAG HYDROX/AL HYDROX/SIMETH 30 ML UNIT-DOSE CUP PO PRN (23:40)
[2017-01-22 00:10] LABS: HEP B SURFACE AB Non Reactive (.)
[2017-01-22] MEDS: ALBUTEROL SO4 0.083% IH SOL 2.5 MG/3 ML VIAL.NEB. NEB SCH ×2 (06:30→13:51)
[2017-01-22] MEDS: methylPREDNISolone NA SUCC 40 MG/1 ML VIAL IVPB SCH (10:16)
[2017-01-22] MEDS: amLODIPine BESYLATE 5 MG TABLET (FP) PO SCH (10:16)
[2017-01-22] MEDS: CEFTRIAXONE 50 ML IVPB SCH (10:16)
[2017-01-22] MEDS: TIOTROPIUM BROMIDE 18 MCG/INH (DEVICE W/ 5 CAPSULES) IH SCH (10:17)
[2017-01-22] MEDS: BUDESONIDE/FORMETEROL FUMARATE 160/4.5 mcg INHALER IH SCH (10:17)
--- NOTE | 2017-01-22 13:48 | DS ---
Physical Exam: SUBJECTIVE: Patient seen and examined by me at bedside. No overnight events noted. Patient reports mild productive cough but has not worsened or changed. Otherwise, patient denies fever, chills, nausea, vomiting, chest pain, palpitations, acute shortness of breath, abdominal pain OBJECTIVE: Vital Signs Period Temp Pulse Resp BP Sys/Echevarria Pulse Ox Last 24 Hr 98.1 F-98.4 F 81-122 20-20 124-148/70-96 93-98 PHYSICAL EXAM GENERAL: The patient is awake, alert, and fully oriented, in no acute distress. LUNGS: Mild expiratory wheezing throughout right lung bases. No wheezes or crackles. No use of accessory muscles HEART: Regular rate and rhythm, S1, S2 without murmur, rub or gallop. ABDOMEN: Soft, nontender, nondistended, normoactive bowel sounds, no guarding, no rebound. EXTREMITIES: No peripheral edema SKIN: Warm, dry, normal turgor, no rashes or lesions noted. LABS Laboratory Results - last 24 hr 01/20/17 06:00 Hep A IgM Ab Confirm Negative Hepatitis A Ab Total Positive H Hep Bs Antigen Negative Hep Bs Antibody Non reactive Hep B Core Total Ab Negative HOSPITAL COURSE: Date of Admission:01/17/17 Date of Discharge: 01/22/17 Patient is a 56 year old female with a PMHx of Asthma, COPD, LIOR, and HTN who presented with worsening dyspnea associated with chest tightness for the last week. Patient was unable to walk or perform daily activities due to her dyspnea. Patient reported a productive cough with white sputum and chest congestion where it would require her to use her inhaler and nebulizer more frequently. with worsening shortness of breath and chest tightness for a couple of days The patient reported that she cannot walk far due to the difficulty breathing. She reported associated productive cough with white sputum and chest congestion. The patient stated that she used her inhaler and nebulizer at home to alleviate symptoms with no relief. Throughout the course patient was placed on high dose steroids with Solu-medrol and placed on Ceftriaxone, Duoneb, symbicort, and spiriva. Patient failed pre and post exercise oxygen with a drop of o2 saturation to 88% on exertion requiring 2L NC to increase the saturation to 90's. Patient now required to have home oxygen and was qualified for home oxygen. Patients symptoms significantly improved and was stable for discharge and to follow up with pulmonology outpatient for PFT's. Minutes to complete discharge: 35 Discharge Summary Reason For Visit: COPD, HYPERTENSION, ASTHMA Current Active Problems COPD exacerbation (Acute) Sepsis (Acute) Shortness of breath (Acute) Asthma (Chronic) Bronchiectasis (Chronic) Hypertension (Chronic) Condition: Stable - Instructions Diet, Activity, Other Instructions: -You may resume regular diet. -You will be sent home with oxygen tank and will need to use it -Follow up with pulmonology within a week to make sure oxygen is working properly -setup operator prescription from pharmacy -You will be taking Prednisone. You will take 4 pills the first 3 days. Then you will take 3 pills for the next 3 days. Then 2 pills the next three days. Then 1 pill for the last three days with a total of 12 days. -Take Symbicort everyday -If you experience increasing shortness of breath, return to the Emergency department. Referrals: Marija Ro MD [Primary Care Provider] - Disposition: HOME - Home Medications Comprehensive Discharge Medication List: Ambulatory Orders Nebulizer [Aeroneb Go Nebulizer] 1 each MC ASDIR 07/06/16 Albuterol Sulfate Inhaler - [Ventolin HFA Inhaler -] 2 inh IH Q6H #1 inh Albuterol 0.083% Nebulizer Destiny [Ventolin 0.083% Nebulizer Soln -] 1 amp NEB Q4H PRN #0 amp 09/25/16 Budesonide/Formeterol Fumarate [SYMBICORT 160/4.5mcg -] 2 puff IH BID inhaler 09/25/16 Hydrochlorothiazide [Hctz -] 25 mg PO DAILY tablet 09/25/16 Hydroxyzine HCl [Atarax -] 25 mg PO TID PRN #0 tablet 09/25/16 Tiotropium [place] [Spiriva] 1 dose IH DAILY #0 inh MDD 1 09/25/16 This patient is new to me today: Yes Date on this admission: 01/22/17 Emergency Visit: Yes ED Registration Date: 01/17/17 Care time: The patient presented to the Emergency Department on the above date and was hospitalized for further evaluation of their emergent condition. Critical Care patient: No - Discharge Referral Referred to [facility] Med P.C.: No
[2017-01-22 15:33] VITALS: BP 162/92; PULSE 124; TEMP 98.7
--- NOTE | 2017-01-22 18:18 | PN ---
Teaching Attending Note Name of Resident: Jessica Trevino ATTENDING PHYSICIAN STATEMENT I saw and evaluated the patient. I reviewed the resident's note and discussed the case with the resident. I agree with the resident's findings and plan as documented. SUBJECTIVE:significantly improved. cough has resolved. denies CP, SOB,fevr, chills OBJECTIVE: Last Vital Signs Temp Pulse Resp BP Pulse Ox 98.7 F 124 H 20 162/92 93 L 01/22/17 15:32 01/22/17 15:32 01/22/17 15:32 01/22/17 15:32 01/22/17 11:19 General NAD CV S1 S2 RRR no murmur/rub/gallop Lungs mild wheezing RUL no rales or crackles abdomen soft NT/ND +BS obese ASSESSMENT AND PLAN: 56yo F with PMH HTN, COPD and OA presented to the ER and was admitted for further evaluation of their emergent condition 1. Acute COPD exacerbation-improved. will d/c on slow steroid taper pred 40mg po daily and decrease by 10mg every 3 days. completed 3 day course of ceftriaxone here. will d/c on inhalers initiated here. qualified for home O2 as she dropped to 88% on exertion requiring 2LNC to bring above 90%. will f/u with pulmonary as outpatient for PFT. counseled on smoking cessation 2. Abdominal distention-resolved 3. RAOUL- likely dehydration,improved. 4. HTN- improved. on norvasc 5. DVT ppx- EAM 6. d/c home on oxygen
== END 2017-01-22 17:01 | disposition home or self-care (01) | DRG 140 ==
LOC: JER 00:20 → JERBED 03:21 → UNDOADMIN 03:27 → J7W 06:08
PROVIDERS: ADMIT Internal Medicine; ATTEND Internal Medicine
DX: J44.1 Chronic obstructive pulmonary disease with (acute) exacerbation (principal); J96.21 Acute and chronic respiratory failure with hypoxia; J96.22 Acute and chronic respiratory failure with hypercapnia; I10 Essential (primary) hypertension; F41.9 Anxiety disorder, unspecified; D72.829 Elevated white blood cell count, unspecified; R14.0 Abdominal distension (gaseous); N17.9 Acute kidney failure, unspecified; M19.90 Unspecified osteoarthritis, unspecified site; Z87.891 Personal history of nicotine dependence
CPT/HCPCS: 36415; 36600; 71010-TC; 76700-TC; 80048; 80053; 81003; 81015; 82803; 83036; 83605; 85025; 85027; 86704; 86706; 86708; 87340; 87899; 93005; 93010; 94640; 94761; 99283-25

== ENCOUNTER 2017-03-08 17:55 | Inpatient (IN) | payer OTHER ==
--- NOTE | 2017-03-08 18:02 | PDOC ---
Rapid Medical Evaluation Time Seen by Provider: 03/08/17 17:59 Medical Evaluation: Allergies Allergy/AdvReac Type Severity Reaction Status Date / Time black walnut Allergy Severe Hives Verified 01/17/17 00:33 sulfamethoxazole Allergy Severe Swelling Verified 01/17/17 00:33 [From Bactrim] trimethoprim [From Bactrim] Allergy Severe Swelling Verified 01/17/17 00:33 grape juice Allergy Severe Hives Uncoded 01/17/17 00:33 PECAN Allergy Severe Hives Uncoded 01/17/17 00:33 PENUTS Allergy Severe Hives Uncoded 01/17/17 00:33 03/08/17 17:59 I have performed a brief in-person evaluation of this patient. The patient presents with a chief complaint of: cough w/ sob/wheezing since last night. H/o former smoker, asthma w/ multiple admissions, no intubation, uses pumps, neb machine and oxygen as needed, HTN Pertinent physical exam findings: Hypoxic at 89% on RA w/ difficulty completing sentences and diffuse wheezing on auscultation I have ordered the following: duonebs and prednisone The patient will proceed to the ED for further evaluation. 03/08/17 18:03 03/08/17 18:04
[2017-03-08] MEDS ORDERED: predniSONE 20 MG TABLET (UD) PO ONE (18:03)
[2017-03-08] MEDS: ALBUTEROL SO4 2.5/IPRATROPIUM 0.5 INH SOL 3 ML VIAL.NEB. NEB SCH ×4 (18:06→19:32)
[2017-03-08] MEDS ORDERED: ALBUTEROL SO4 2.5/IPRATROPIUM 0.5 INH SOL 3 ML VIAL.NEB. NEB ONE ×2 (18:22→21:15)
[2017-03-08] MEDS ORDERED: predniSONE 20 MG TABLET (UD) ONE (18:22)
--- NOTE | 2017-03-08 18:32 | PDOC ---
History of Present Illness - General History Source: Patient, Old Records Exam Limitations: No Limitations <Marietta Munguia - Last Filed: 03/08/17 18:29> - General History Source: Patient, Old Records Exam Limitations: No Limitations - History of Present Illness Initial Comments: 03/08/17 18:42 The patient is a 57 year old female, with a significant past medical history of asthma (diagnosed 5 years ago) (on home 2 Liters of O2), COPD, HTN and anxiety, who presents to the emergency department with shortness of breath for the last couple of days, which exacerbated today. She also reports a cough associated with her chief complaint. She notes that her cough is productive of a brown / green sputum. She reports that she has been using her pump and nebulizer machine with minimal to no relief of her symptoms. She states that her last asthma attack was 2 months ago. The patient denies chest pain, headache and dizziness. Denies fever, chills, nausea, vomit, diarrhea and constipation. Denies dysuria, frequency, urgency and hematuria. Allergies: Bactrim Past surgical history: None reported Social history: Former smoker (quit 2 years ago). Former drug abuser (Crack cocaine, quit 5 years ago) <Roberto Carlos Bernard - Last Filed: 03/08/17 18:46> - General Chief Complaint: Asthma Stated Complaint: ASTHMA/SOB Time Seen by Provider: 03/08/17 17:59 Past History - Past Medical History Anemia: No Asthma: Yes (Dx 2003) Cardiac Disorders: Yes CVA: No COPD: Yes Diabetes: No GI Disorders: No Disorders: No HTN: Yes Hypercholesterolemia: No Kidney Stones: No Psychiatric Problems: Yes (anxiety) Suicide Attempt (Hx): No Seizures: No Thyroid Disease: No - Surgical History Abdominal Surgery: No Appendectomy: No Cardiac Surgery: No Cholecystectomy: No Lung Surgery: No Neurologic Surgery: No Orthopedic Surgery: No - Reproductive History PID: No - Immunization History Immunization Up to Date: Yes - Psycho/Social/Smoking Cessation Hx Anxiety: No Suicidal Ideation: No Smoking Status: No Smoking History: Unknown if ever smoked Have you smoked in the past 12 months: No Number of Cigarettes Smoked Daily: 0 If you are a former smoker, when did you quit?: 1 year ago Information on smoking cessation initiated: No 'Breaking Loose' booklet given: 04/10/15 Hx Alcohol Use: No Drug/Substance Use Hx: No Substance Use Type: None Hx Substance Use Treatment: Yes <Marietta Munguia - Last Filed: 03/08/17 18:29> <Roberto Carlos Bernard - Last Filed: 03/08/17 18:46> - Past Medical History Allergies/Adverse Reactions: Allergies Allergy/AdvReac Type Severity Reaction Status Date / Time black walnut Allergy Severe Hives Verified 03/08/17 18:02 sulfamethoxazole Allergy Severe Swelling Verified 03/08/17 18:02 [From Bactrim] trimethoprim [From Bactrim] Allergy Severe Swelling Verified 03/08/17 18:02 PECAN Allergy Severe Hives Uncoded 03/08/17 18:02 Home Medications: Ambulatory Orders Nebulizer [Aeroneb Go Nebulizer] 1 each MC ASDIR 07/06/16 Albuterol Sulfate Inhaler - [Ventolin HFA Inhaler -] 2 inh IH Q6H #1 inh Albuterol 0.083% Nebulizer [place] [Ventolin 0.083% Nebulizer Soln -] 1 amp NEB Q4H PRN #0 amp 09/25/16 Budesonide/Formeterol Fumarate [SYMBICORT 160/4.5mcg -] 2 puff IH BID inhaler 09/25/16 Hydrochlorothiazide [Hctz -] 25 mg PO DAILY tablet 09/25/16 Hydroxyzine HCl [Atarax -] 25 mg PO TID PRN #0 tablet 09/25/16 Tiotropium [place] [Spiriva] 1 dose IH DAILY #0 inh MDD 1 09/25/16 Prednisone [Deltasone -] 10 mg PO DAILY #30 tablet 01/22/17 Review of Systems - Review of Systems Able to Perform ROS?: Yes Comments:: 03/08/17 18:39 GENERAL/CONSTITUTIONAL: No fever or chills. No weakness. HEAD, EYES, EARS, NOSE AND THROAT: No change in vision. No ear pain or discharge. No sore throat. CARDIOVASCULAR: (+) Shortness of breath. No chest pain RESPIRATORY: (+) Cough. No wheezing, or hemoptysis. GASTROINTESTINAL: No nausea, vomiting, diarrhea or constipation. GENITOURINARY: No dysuria, frequency, or change in urination. MUSCULOSKELETAL: No joint or muscle swelling or pain. No neck or back pain. SKIN: No rash NEUROLOGIC: No headache, vertigo, loss of consciousness, or change in strength/ sensation. ENDOCRINE: No increased thirst. No abnormal weight change HEMATOLOGIC/LYMPHATIC: No anemia, easy bleeding, or history of blood clots. ALLERGIC/IMMUNOLOGIC: No hives or skin allergy. <Roberto Carlos Bernard - Last Filed: 03/08/17 18:46> *Physical Exam - Vital Signs Last Vital Signs Temp Pulse Resp BP Pulse Ox 98.1 F 108 H 22 103/79 98 03/08/17 18:02 03/08/17 18:02 03/08/17 18:02 03/08/17 18:02 03/08/17 18:07 <Marietta Munguia - Last Filed: 03/08/17 18:29> - Vital Signs Last Vital Signs Temp Pulse Resp BP Pulse Ox 98.1 F 108 H 22 103/79 98 03/08/17 18:02 03/08/17 18:02 03/08/17 18:02 03/08/17 18:02 03/08/17 18:07 - Physical Exam Comments: 03/08/17 18:43 GENERAL: Awake, alert, and fully oriented, in no acute distress HEAD: No signs of trauma, normocephalic, atraumatic EYES: PERRLA, EOMI, sclera anicteric, conjunctiva clear ENT: Auricles normal inspection, hearing grossly normal, nares patent, oropharynx clear without exudates. Moist mucosa NECK: Normal ROM, supple, no lymphadenopathy, JVD, or masses LUNGS: (+) Diffusely wheezing. No distress, speaks full sentences. Good air entry. HEART: (+) Mildy tachycardic. Normal S1 and S2, no murmurs, rubs or gallops, peripheral pulses normal and equal bilaterally. ABDOMEN: Soft, nontender, normoactive bowel sounds. No guarding, no rebound. No masses EXTREMITIES: Normal inspection, Normal range of motion, no edema. No clubbing or cyanosis. NEUROLOGICAL: Cranial nerves II through XII grossly intact. Normal speech, normal gait, no focal sensorimotor deficits SKIN: Warm, Dry, normal turgor, no rashes or lesions noted. <Roberto Carlos Bernard - Last Filed: 03/08/17 18:46> ED Treatment Course - Medications Given in the ED: ED Medications Discontinued Medications Generic Name Dose Route Start Last Admin Trade Name Freq PRN Reason Stop Dose Admin Prednisone 60 mg 03/08/17 18:03 03/08/17 18:24 Deltasone - PO 03/08/17 18:04 60 mg ONCE ONE Administration <Marietta Munguia - Last Filed: 03/08/17 18:29> - Medications Given in the ED: ED Medications Discontinued Medications Generic Name Dose Route Start Last Admin Trade Name Freq PRN Reason Stop Dose Admin Prednisone 60 mg 03/08/17 18:03 03/08/17 18:24 Deltasone - PO 03/08/17 18:04 60 mg ONCE ONE Administration <Roberto Carlos Bernard - Last Filed: 03/08/17 18:46> Medical Decision Making - Medical Decision Making 03/08/17 18:29 57-year-old female with history of asthma with no prior intubations but positive non-and base of positive pressure ventilation juice in the past presents the emergency Department with complaints of 2-3 day history of shortness of breath unrelieved with home nebulizer treatments as well as cough productive with brown and green sputum. The patient was initially hypoxic on room air but is able to speak in full sentences. Differential diagnosis includes but is not limited to: Asthmatic exacerbation, pneumonia, bronchitis. Plan: 1. Steroids 2. DuoNeb treatments 3. Monitor peak flow 4. Observe and reevaluate <Marietta Munguia - Last Filed: 03/08/17 18:29> *DC/Admit/Observation/Transfer - Attestations Physician Attestion: 03/08/17 18:31 I, Dr. Marietta Munguia, attest that the scribes documentation that appears above has been prepared under my direction and personally reviewed by me in its entirety. I confirmed that the note above accurately reflects all work, treatment, procedures, and medical decision-making performed by me. <Marietta Munguia - Last Filed: 03/08/17 18:29> - Attestations Scribe Attestion: 03/08/17 18:43 Documentation prepared by Roberto Carlos Bernard, acting as medical reimbursement specialist for Marietta Munguia MD <Roberto Carlos Bernard - Last Filed: 03/08/17 18:46> Diagnosis at time of Disposition: Shortness of breath, Asthma exacerbation in COPD - Referrals Referrals: Marija Ro MD [Primary Care Provider] -
[2017-03-08] MEDS ORDERED: ALBUTEROL SO4 2.5/IPRATROPIUM 0.5 INH SOL 3 ML VIAL.NEB. NEB STA ×2 (20:01→21:11)
[2017-03-08] MEDS ORDERED: AZITHROMYCIN 250 MG TABLET (FP) PO STA (20:01)
[2017-03-08] MEDS ORDERED: MAGNESIUM SULF 50% (8.12 MEQ/2 ML-1 GM VIAL) IVPB ONE (20:03)
[2017-03-08] MEDS ORDERED: AZITHROMYCIN 250 MG TABLET (FP) ONE (20:06)
[2017-03-08] MEDS ORDERED: MAGNESIUM SULF 50% (8.12 MEQ/2 ML-1 GM VIAL) ONE (20:06)
[2017-03-08] MEDS ORDERED: MECLIZINE HCL 25 MG TABLET (FP) PO STA (21:11)
[2017-03-08] MEDS ORDERED: MECLIZINE HCL 25 MG TABLET (FP) ONE (21:15)
--- NOTE | 2017-03-08 21:51 | PDOC ---
*Physical Exam - Vital Signs Last Vital Signs Temp Pulse Resp BP Pulse Ox 98.1 F 108 H 22 103/79 98 03/08/17 18:02 03/08/17 18:02 03/08/17 18:02 03/08/17 18:02 03/08/17 18:07 <Roberto Carlos Vaughn - Last Filed: 03/08/17 21:51> - Vital Signs Last Vital Signs Temp Pulse Resp BP Pulse Ox 98.1 F 108 H 22 103/79 98 03/08/17 18:02 03/08/17 18:02 03/08/17 18:02 03/08/17 18:02 03/08/17 18:07 - Physical Exam Comments: 03/08/17 23:23 Sinus tachycardia @115bpm Biatrial enlargement Abnormal ECG <Maria De Jesus Josue - Last Filed: 03/08/17 23:26> ED Treatment Course - Medications Given in the ED: ED Medications Discontinued Medications Generic Name Dose Route Start Last Admin Trade Name Andrea PRN Reason Stop Dose Admin Albuterol/Ipratropium 1 amp 03/08/17 18:15 03/08/17 19:32 Duoneb - NEB 03/08/17 19:01 1 amp Q15M ZACHARY Administration Albuterol/Ipratropium 1 amp 03/08/17 20:01 03/08/17 21:25 Duoneb - NEB 03/08/17 20:02 1 amp ONCE STA Administration Azithromycin 500 mg 03/08/17 20:01 03/08/17 20:16 Zithromax - PO 03/08/17 20:02 500 mg ONCE STA Administration Magnesium Sulfate 1 gm 03/08/17 20:03 03/08/17 20:34 Magnesium Sulfate IVPB 03/08/17 20:04 1 gm ONCE ONE Administration Meclizine HCl 25 mg 03/08/17 21:11 03/08/17 21:25 Antivert - PO 03/08/17 21:12 25 mg ONCE STA Administration Prednisone 60 mg 03/08/17 18:03 03/08/17 18:24 Deltasone - PO 03/08/17 18:04 60 mg ONCE ONE Administration <Roberto Carlos Vaughn - Last Filed: 03/08/17 21:51> - Medications Given in the ED: ED Medications Discontinued Medications Generic Name Dose Route Start Last Admin Trade Name Andrea PRN Reason Stop Dose Admin Albuterol/Ipratropium 1 amp 03/08/17 18:15 03/08/17 19:32 Duoneb - NEB 03/08/17 19:01 1 amp Q15M ZACHARY Administration Albuterol/Ipratropium 1 amp 03/08/17 20:01 03/08/17 21:25 Duoneb - NEB 03/08/17 20:02 1 amp ONCE STA Administration Azithromycin 500 mg 03/08/17 20:01 03/08/17 20:16 Zithromax - PO 03/08/17 20:02 500 mg ONCE STA Administration Magnesium Sulfate 1 gm 03/08/17 20:03 03/08/17 20:34 Magnesium Sulfate IVPB 03/08/17 20:04 1 gm ONCE ONE Administration Meclizine HCl 25 mg 03/08/17 21:11 03/08/17 21:25 Antivert - PO 03/08/17 21:12 25 mg ONCE STA Administration Prednisone 60 mg 03/08/17 18:03 03/08/17 18:24 Deltasone - PO 03/08/17 18:04 60 mg ONCE ONE Administration <Maria De Jesus Josue - Last Filed: 03/08/17 23:26> *DC/Admit/Observation/Transfer - Discharge Dispostion Admit: Yes <Roberto Carlos Vaughn - Last Filed: 03/08/17 21:51> <Maria De Jesus Josue - Last Filed: 03/08/17 23:26> Diagnosis at time of Disposition: Shortness of breath, Asthma exacerbation in COPD - Referrals - Patient Instructions - Post Discharge Activity
--- NOTE | 2017-03-08 22:06 | PN ---
Teaching Attending Note Name of Resident: Darin Zapata ATTENDING PHYSICIAN STATEMENT I saw and evaluated the patient. I reviewed the resident's note and discussed the case with the resident. I agree with the resident's findings and plan as documented. SUBJECTIVE: 57 F COPD ( on home 02 2L), Asthma, Htn, former smoker, and anxiety who presents with shortness of breath X several days. With associated cough. Recent admission in January for COPD Exacerbation.. Notes chest pain only upon cough. Notes increased green sputum and increased purulence. No fevers or chills. No chest pressure. No N/V/D. No black or bloody stools. OBJECTIVE: Physical: VS: Vital Signs Period Temp Pulse Resp BP Sys/Echevarria Pulse Ox Last 24 Hr 98.1 F 108 22 103/79 89-98 GEN:Middle Aged female resting in bed, No acute distress, able to speak full sentences HEENT: NCAT, PERRL CARD: RRR S1, S2 RESP: Bilateral Diffuse Expiratory Wheezing ABD: BS X4, NTD to Palpation EXT: - C/C/E CXR: Negative for any acute process ASSESSMENT AND PLAN: 57 F with pmhx of COPD (on home 02), Asthma, HTN, Anxiety who presents with shortness of breath, found to have 1.) Acute Exacerbation of COPD/Asthma - Duonebs Atc/prn - ABG - Solu-Medrol - Since multiple prior exacerbation, increased sputum production and purulence would start abx - PFTS outpatient - Continue Spiriva and Symbicort - Fs and RAISS due to steriods 2.) HTN - Continue HCTZ 3.) Microcytic Anemia - Check iron studies 4.) RAOUL - Mild - Monitor - Gentle hydration 3.) DVt Ppx - Heparin 5000 Q 8 Rest as per resident note Admit to med-sx
[2017-03-08 23:26] LABS: BASOPHIL 0.4 % (0-2.0); EOSINOPHIL 0.1 % (0-4.5); MEAN PLT VOLUME 8.6 fl (7.5-11.1); NEUTROPHILS 91.9 % (42.8-82.8); PLATELET COUNT 178 K/MM3 (134-434); RDW 16.1 % (11.6-15.6); WHITE BLOOD COUNT 8.8 K/mm3 (4.0-10.0)
--- NOTE | 2017-03-08 23:31 | HP ---
CHIEF COMPLAINT: sob, cough w/sputum PCP: Dr. Marija Aguilar HISTORY OF PRESENT ILLNESS: 57 y/o F w/PMH of COPD (on 2L O2 at home), asthma, HTN, anxiety, former smoker presents to ER with SOB for the last 2 days. SOB was exacerbated by a cold which started yesterday with cough with green/brown sputum production, runny nose (clear mucus), ROJAS, teary eyes. She also has some chest pain with coughing. SOB was at both rest and with exertion. Pt used nebs and alb inhaler with some relief. She has had these symptoms multiple times in the past and are similar to her symptoms with COPD/asthma exacerbation. She has not seen a time cycle operator as an outpatient yet but was going to see one in the next coming weeks as was recommended by her PCP. She denies N/V/F/C, facial pressure, sick contacts, recent travel, abd pain, diarrhea, blood in stool, dysuria, frequency, blood in urine, peripheral swelling, throat pain, dizziness, light-headedness, palpitations. ER course was notable for: (1) CXR, prednisone, Mg, meclizine (2) (3) Recent Travel: denies PAST MEDICAL HISTORY:COPD (on 2L O2 at home), asthma, HTN, anxiety, arthritis PAST SURGICAL HISTORY: denies any past surgeries Social History: Smoking: quit 2 years ago Alcohol: rarely Drugs: crack/cocaine (smoked)- quit 5 years ago Family History: Mother: ESRD Allergies black walnut Allergy (Severe, Verified 03/08/17 18:02) Hives sulfamethoxazole [From Bactrim] Allergy (Severe, Verified 03/08/17 18:02) Swelling trimethoprim [From Bactrim] Allergy (Severe, Verified 03/08/17 18:02) Swelling PECAN Allergy (Severe, Uncoded 03/08/17 18:02) Hives PECANS HOME MEDICATIONS: Home Medications Medication Instructions Recorded Nebulizer [Aeroneb Go Nebulizer] 1 each ASDIR 07/06/16 Albuterol Sulfate Inhaler - 2 inh IH Q6H #1 inh 08/11/16 [Ventolin HFA Inhaler -] Albuterol 0.083% Nebulizer Destiny 1 amp NEB Q4H PRN #0 amp 09/25/16 [Ventolin 0.083% Nebulizer Soln -] Budesonide/Formeterol Fumarate 2 puff IH BID inhaler 09/25/16 [SYMBICORT 160/4.5mcg -] Hydrochlorothiazide [Hctz -] 25 mg PO DAILY tablet 09/25/16 Hydroxyzine HCl [Atarax -] 25 mg PO TID PRN #0 tablet 09/25/16 Tiotropium Grimes [Spiriva] 1 dose IH DAILY #0 inh MDD 1 09/25/16 Prednisone [Deltasone -] 10 mg PO DAILY #30 tablet 01/22/17 REVIEW OF SYSTEMS CONSTITUTIONAL: Absent: fever, chills, diaphoresis, generalized weakness, malaise HEENT: +rhinorrhea, teary eyes Absent: throat pain, difficulty swallowing,visual changes CARDIOVASCULAR: Absent: chest pain, syncope, palpitations, irregular heart rate, lightheadedness , peripheral edema RESPIRATORY: +cough w/green-brown sputum, dyspnea with exertion, sob Absent: orthopnea, stridor, hemoptysis GASTROINTESTINAL: Absent: abdominal pain, nausea, vomiting, diarrhea, constipation, hematochezia GENITOURINARY: Absent: dysuria, frequency, hematuria, flank pain NEUROLOGIC: +headache Absent: focal weakness or paresthesias, dizziness Vital Signs Temperature 98.1 F 03/08/17 18:02 Pulse Rate 108 H 03/08/17 18:02 Respiratory Rate 22 03/08/17 18:02 Blood Pressure 103/79 03/08/17 18:02 O2 Sat by Pulse Oximetry (%) 98 03/08/17 18:07 PHYSICAL EXAMINATION GENERAL: Awake, alert, and fully oriented, in no acute distress. Able to speak in full sentences w/o oxygen supplementation. HEAD: Normal with no signs of trauma. EYES: extraocular movements intact, sclera anicteric, conjunctiva clear. No lid lag. EARS, NOSE, THROAT: Ears normal, nares patent, Moist mucous membranes. NECK: Normal range of motion, supple LUNGS: +B/L diffuse wheezes HEART: Tachycardic, normal S1 and S2 ABDOMEN: Soft, nontender, not distended, normoactive bowel sounds, no guarding, no rebound, no masses. No hepatomegaly or splenomegaly. MUSCULOSKELETAL: No bony deformities or tenderness. No CVA tenderness. LOWER EXTREMITIES: 2+ pulses, warm, well-perfused. No calf tenderness. No peripheral edema. NEUROLOGICAL: Normal speech. Gait not observed. PSYCHIATRIC: Cooperative. Good eye contact. Appropriate mood and affect. SKIN: Warm, dry CBCD WBC 8.8 K/mm3 (4.0-10.0) D 03/08/17 23:15 RBC 4.80 M/mm3 (3.60-5.2) 03/08/17 23:15 Hgb 10.6 GM/dL (10.7-15.3) L 03/08/17 23:15 Hct 34.1 % (32.4-45.2) 03/08/17 23:15 MCV 71.0 fl (80-96) L 03/08/17 23:15 MCHC 31.0 g/dl (32.0-36.0) L 03/08/17 23:15 RDW 16.1 % (11.6-15.6) H 03/08/17 23:15 Plt Count 178 K/MM3 (134-434) 03/08/17 23:15 MPV 8.6 fl (7.5-11.1) 03/08/17 23:15 CMP Sodium 143 mmol/L (136-145) 03/08/17 23:15 Potassium 4.1 mmol/L (3.5-5.1) 03/08/17 23:15 Chloride 107 mmol/L (98-107) 03/08/17 23:15 Carbon Dioxide 27 mmol/L (21-32) 03/08/17 23:15 Anion Gap 9 (8-16) 03/08/17 23:15 BUN 15 mg/dL (7-18) D 03/08/17 23:15 Creatinine 1.2 mg/dL (0.55-1.02) H 03/08/17 23:15 Creat Clearance w eGFR 46.14 (>60) 03/08/17 23:15 Random Glucose 197 mg/dL (74-106) H D 03/08/17 23:15 Calcium 8.8 mg/dL (8.5-10.1) 03/08/17 23:15 Total Bilirubin 0.2 mg/dL (0.2-1.0) 03/08/17 23:15 AST 19 U/L (15-37) D 03/08/17 23:15 ALT 16 U/L (12-78) 03/08/17 23:15 Alkaline Phosphatase 89 U/L (45-117) 03/08/17 23:15 Total Protein 7.2 g/dl (6.4-8.2) 03/08/17 23:15 Albumin 3.0 g/dl (3.4-5.0) L 03/08/17 23:15 ABG Results ABG pH 7.34 (7.35-7.45) L 03/09/17 01:33 ABG pCO2 at Pt Temp 48.4 mmHg (35-45) H 03/09/17 01:33 ABG pO2 at Pt Temp 58.7 mmHg (80-100) L D 03/09/17 01:33 ABG HCO3 25.2 meq/L (22-26) 03/09/17 01:33 ABG O2 Sat (Measured) 89.1 % (90-98.9) L 03/09/17 01:33 ABG O2 Content 13.3 % vol (15-22) L 03/09/17 01:33 ABG Base Excess -0.4 meq/l (-2-2) 03/09/17 01:33 Imaging: CXR: No significant interval change (compareed to 01/17/17) or acute lung disease is present. ASSESSMENT/PLAN: 57 y/o F w/PMH of COPD (on 2L O2 at home), asthma, HTN, anxiety, former smoker presents to ER with SOB for the last 2 days. Pt with multiple admissions in the past for COPD/Asthma exacerbation. Currently admitted for COPD/asthma exacerbation. -Acute on chronic COPD/asthma exacerbation -Solu-medrol 60 mg IV q12h, taper as necessary -Will get BGMs and ISS with steroid use at this time -Duo-nebs QIDR and PRN -c/w symbicort and spiriva -Levaquin 750 mg IV qd due to increased sputum production, multiple hospitalizations due to exacerbations -ABG done on RA. Pt with no signs of respiratory failure at this time. -will need outpatient f/u with pulm for COPD and Asthma and PFTs -HTN -HCTZ 25 mg po qd -Microcytic Anemia -Hgb 10.6, at baseline -f/u Iron studies -CKD -Cr at 1.2, at baseline, monitor -DVT ppx -Heparin 5000 units sq q8h -FEN -No fluids at this time -Monitor lytes -Will place on diabetic diet due to being steroids at this time -Dispo: -Admit to m/s -Pt states she has an appointment on Wednesday at 10:30AM for getting an apartment and will need to leave before then Visit type - Emergency Visit Emergency Visit: Yes ED Registration Date: 03/08/17 Care time: The patient presented to the Emergency Department on the above date and was hospitalized for further evaluation of their emergent condition. - New Patient This patient is new to me today: Yes Date on this admission: 03/09/17 - Critical Care Critical Care patient: No
[2017-03-08] MEDS ORDERED: hydrOXYzine HCL 25 MG TABLET (FP) PO PRN (23:51)
[2017-03-08] MEDS ORDERED: ALBUTEROL SO4 2.5/IPRATROPIUM 0.5 INH SOL 3 ML VIAL.NEB. NEB PRN (23:53)
[2017-03-09 00:06] LABS: ALK PHOS 89 U/L (45-117); ANION GAP 9 (8-16); BILIRUBIN,TOTAL 0.2 mg/dL (0.2-1.0); CALCIUM 8.8 mg/dL (8.5-10.1); CO2 27 mmol/L (21-32); CREATININE 1.2 mg/dL (0.55-1.02); GLUCOSE,RANDOM 197 mg/dL (74-106); MAGNESIUM 2.1 mg/dL (1.8-2.4); SGOT/AST 19 U/L (15-37); SGPT/ALT 16 U/L (12-78); TOT PROT 7.2 g/dl (6.4-8.2)
[2017-03-09] MEDS ORDERED: ALBUTEROL SO4 2.5/IPRATROPIUM 0.5 INH SOL 3 ML VIAL.NEB. NEB ONE (00:15)
[2017-03-09] MEDS: ALBUTEROL SO4 2.5/IPRATROPIUM 0.5 INH SOL 3 ML VIAL.NEB. NEB SCH ×2 (00:18→17:00)
[2017-03-09 01:47] LABS: ALLENS TEST POSITIVE; ART PUNCT SITE LEFT RADIAL; ARTERIAL BLD GAS O2 SATURATION 89.1 % (90-98.9); ARTERIAL BLOOD GAS BASE EXCESS -0.4 meq/l (-2-2); ARTERIAL BLOOD GAS HCO3 25.2 meq/L (22-26); ARTERIAL BLOOD GAS PO2 58.7 mmHg (80-100); ARTERIAL BLOOD GAS pH 7.34 (7.35-7.45); METHEMOGLOBIN 0.5 % (0.4-1.5); PT. ON O2? NO
[2017-03-09 01:48] LABS: TYPE OF O2 ROOM AIR
[2017-03-09] MEDS: HEPARIN NA (PORCINE) 5,000 UNITS/ML 1ML VIAL SQ SCH ×2 (05:47→14:50)
[2017-03-09] MEDS: INSULIN SLIDING SCALE (NOVOLOG) 1 VIAL SQ SCH ×2 (06:31→11:59)
[2017-03-09 06:43] LABS: BASOPHIL 0.3 % (0-2.0); MCHC 31.1 g/dl (32.0-36.0); MEAN CELL VOLUME 70.6 fl (80-96); NEUTROPHILS 79.6 % (42.8-82.8); PLATELET COUNT 182 K/MM3 (134-434); RDW 16.1 % (11.6-15.6); WHITE BLOOD COUNT 6.6 K/mm3 (4.0-10.0)
[2017-03-09] MEDS ORDERED: LEVOFLOXACIN 750 MG IVPB 150 ML IVPB SCH (06:45)
[2017-03-09 07:10] LABS: ALBUMIN 2.8 g/dl (3.4-5.0); CALCIUM 9.1 mg/dL (8.5-10.1); GLUCOSE,RANDOM 149 mg/dL (74-106)
[2017-03-09 07:16] LABS: ALK PHOS 80 U/L (45-117); ANION GAP 9 (8-16); BILIRUBIN,TOTAL 0.2 mg/dL (0.2-1.0); CO2 26 mmol/L (21-32); SGOT/AST 15 U/L (15-37); SGPT/ALT 15 U/L (12-78); TOT PROT 6.9 g/dl (6.4-8.2)
[2017-03-09] MEDS ORDERED: HYDROCHLOROTHIAZIDE 25 MG TABLET (FP) PO SCH (10:00)
[2017-03-09] MEDS ORDERED: ACLIDINIUM BROMIDE 400 MCG/INH AERO.POWD IH SCH (10:00)
[2017-03-09] MEDS ORDERED: methylPREDNISolone NA SUCC 125 MG/2 ML VIAL IVPB SCH (10:00)
[2017-03-09] MEDS ORDERED: BUDESONIDE/FORMETEROL FUMARATE 160/4.5 mcg INHALER IH SCH (10:00)
[2017-03-09 10:05] LABS: FERRITIN 42.687 ng/ml (6.9-282.5)
--- NOTE | 2017-03-09 11:49 | MSN ---
Progress Note (short form) - Note Progress Note: Subjective: Patient seen and examined at bedside this morning. Patient states that her shortness of breath is improving and she feels better. She is having less dyspnea when walking over short distances (when walking to the bathroom). She describes chest pain when coughing. She still has a cough but the cough is less productive of grayish sputum. She denies fever, chills, palpitations, leg tenderness, nausea/vomiting. She admits to urinary frequency. She is eating well and anxious to improve to leave for an appointment tomorrow morning (03-10) . Objective: Vital Signs Period Temp Pulse Resp BP Sys/Echevarria Pulse Ox Last 24 Hr 98.1 F-98.5 F 102-109 18-22 103-122/62-79 89-98 General: Well-nourished patient lying comfortably in bed, alert and orientated x3 Head: Normocephalic, atraumatic Eyes: EOMI, no scleral icterus, clear conjuctiva Nose: Nasal septum intact Mouth/pharynx: No exudates, no erythema, tongue and uvula midline, moist mucous membranes Neck: Supple, no lymphadenopathy, trachea midline Lungs: b/l expiratory wheezes, decreased breath sounds b/l, accessory muscle use Heart: Regular, rate, and rhythm, normal S1/S2, no murmurs, rubs or gallops Abdomen: Soft, non-tender, normoactive bowel sounds MSK: Right hip tenderness, normal muscle bulk/tone Extremities: Warm, 2+ pulses, no edema Neurological: CN II-XII grossly intact, no facial droop, normal speech, 5/5 muscle strength b/l; gait not observed Skin: No lesion, rashes or masses; no nail clubbing CBC, BMP 03/09/17 05:35 03/09/17 05:35 ABG Results ABG pH 7.34 (7.35-7.45) L 03/09/17 01:33 ABG pCO2 at Pt Temp 48.4 mmHg (35-45) H 03/09/17 01:33 ABG pO2 at Pt Temp 58.7 mmHg (80-100) L D 03/09/17 01:33 ABG HCO3 25.2 meq/L (22-26) 03/09/17 01:33 ABG O2 Sat (Measured) 89.1 % (90-98.9) L 03/09/17 01:33 ABG O2 Content 13.3 % vol (15-22) L 03/09/17 01:33 ABG Base Excess -0.4 meq/l (-2-2) 03/09/17 01:33 Active Medications Generic Name Dose Route Start Last Admin Trade Name Freq PRN Reason Stop Dose Admin Albuterol/Ipratropium 1 amp 03/09/17 00:00 03/09/17 00:18 Duoneb - NEB 1 amp QIDR ZACHARY Administration Albuterol/Ipratropium 1 amp 03/08/17 23:53 03/09/17 09:08 Duoneb - NEB 1 amp Q6H PRN Administration SHORTNESS OF BREATH Budesonide/Formoterol Fumarate 2 puff 03/09/17 10:00 03/09/17 09:47 Symbicort 160/4.5mcg - IH Not Given BID ZACHARY Heparin Sodium (Porcine) 5,000 unit 03/09/17 06:00 03/09/17 05:47 Heparin - SQ Not Given TID ZACHARY Hydrochlorothiazide 25 mg 03/09/17 10:00 03/09/17 09:47 Hctz - PO 25 mg DAILY ZACHARY Administration Levofloxacin 150 mls @ 100 mls/hr 03/09/17 06:45 03/09/17 10:50 Levaquin 750 Mg Premixed Ivpb - IVPB 100 mls/hr DAILY ZACHARY Administration Insulin Aspart 1 vial 03/09/17 07:00 03/09/17 11:59 Novolog Vial Sliding Scale - SQ Not Given ACHS [facility] Protocol Methylprednisolone Sodium Succinate 60 mg 03/09/17 10:00 03/09/17 09:47 Solu-Medrol - IVPB 60 mg BID ZACHARY Administration Assessment and Plan: 57 yr old female with a past history of COPD (on 2L O2 via nasal canula at home) (frequent hospitalizations for exacerbations), asthma, HTN, arthritis, anxiety, former smoker (quit 2 years ago), previous substance use (alcohol, cocaine-quit about 5 years ago) presented to the ER with SOB and grayish/green sputum of 2 days duration and was admitted for acute exacerbation of COPD. 1. 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 5 times per day) 2. Microcytic anemia * Hemoglobin 9.8; baseline of 10.6 * Iron studies pending * Follow-up with GI for colonoscopy * Menopause at 48 yrs. 3. HTN * Continue HCTZ 25 mg QD 4. Right hip osteoarthritis * Once COPD controlled, follow-up with orthopedist * Walks with cane and would potentially like a scoter * PT would be beneficial 5. Anxiety * Continue Hydroxyzine 25 mg qd (home medications) 6. FEN * Diabetic diet due to use of steroids 7. Prophylaxis * DVT- Heparin SQ TID * GI- None indicated 8. Dispo * Patient is adamant that she leave hospital tomorrow (03-10) for appointment but would return to hospital if exacerbation has not improved significantly enough for medically approved discharge * Patient currently using 2L of O2 via nasal canula at home
--- NOTE | 2017-03-09 13:39 | PN ---
Physical Exam: SUBJECTIVE: Patient seen and examined at bed side this morning. Patient said her breathing has improved but still has wheezing which improves after nebulization. Denies chest pain, palpitation, abdominal pain, nausea or vomiting. Bowel/Bladder habit normal. Sleep/Appetite normal. OBJECTIVE: Vital Signs Period Temp Pulse Resp BP Sys/Echevarria Pulse Ox Last 24 Hr 98.4 F-98.5 F 102-109 18-18 112-122/62-66 93 GENERAL: The patient is awake, alert, and fully oriented, in no acute distress, nasal canula in place. HEAD: Normal with no signs of trauma. EYES: EOM intact, no pallor or icterus. ENT: Ears normal, moist mucous membranes. NECK: Supple. LUNGS: Accessory muscle use +, Breath sounds equal, B/L decreased breath sounds , scattered wheezing but no crackles. HEART: Regular rate and rhythm, S1, S2 without murmur. ABDOMEN: Soft, nontender, nondistended, normoactive bowel sounds, no guarding, no rebound, no hepatosplenomegaly, no masses. EXTREMITIES: 2+ pulses, warm, well-perfused, no edema. NEUROLOGICAL: No facial droop, Bulk, tone-Normal. Cranial nerves II through XII grossly intact. Normal speech, gait not observed. PSYCH: Normal mood, normal affect. SKIN: Warm, dry, normal turgor, no rashes or lesions noted Laboratory Results - last 24 hr 03/08/17 03/08/17 03/09/17 23:15 23:15 01:33 WBC 8.8 D RBC 4.80 Hgb 10.6 L Hct 34.1 MCV 71.0 L MCHC 31.0 L RDW 16.1 H Plt Count 178 MPV 8.6 Neutrophils % 91.9 H Lymphocytes % 6.4 L D Monocytes % 1.2 L Eosinophils % 0.1 D Basophils % 0.4 D Puncture Site Left radial ABG pH 7.34 L ABG pCO2 at Pt Temp 48.4 H ABG pO2 at Pt Temp 58.7 L D ABG HCO3 25.2 ABG O2 Sat (Measured) 89.1 L ABG O2 Content 13.3 L ABG Base Excess -0.4 Timmy Test Positive Carboxyhemoglobin 1.8 Methemoglobin 0.5 O2 Delivery Device Room air Oxygen Flow Rate No PEEP 0.0 Sodium 143 Potassium 4.1 Chloride 107 Carbon Dioxide 27 Anion Gap 9 BUN 15 D Creatinine 1.2 H Creat Clearance w eGFR 46.14 POC Glucometer Random Glucose 197 H D Calcium 8.8 Magnesium 2.1 Ferritin Total Bilirubin 0.2 AST 19 D ALT 16 Alkaline Phosphatase 89 Total Protein 7.2 Albumin 3.0 L 03/09/17 03/09/17 03/09/17 05:35 05:35 05:35 WBC 6.6 RBC 4.44 Hgb 9.8 L Hct 31.4 L MCV 70.6 L MCHC 31.1 L RDW 16.1 H Plt Count 182 MPV 9.0 Neutrophils % 79.6 Lymphocytes % 17.0 D Monocytes % 3.1 L D Eosinophils % 0.0 D Basophils % 0.3 Puncture Site ABG pH ABG pCO2 at Pt Temp ABG pO2 at Pt Temp ABG HCO3 ABG O2 Sat (Measured) ABG O2 Content ABG Base Excess Timmy Test Carboxyhemoglobin Methemoglobin O2 Delivery Device Oxygen Flow Rate PEEP Sodium 143 Potassium 4.6 Chloride 108 H Carbon Dioxide 26 Anion Gap 9 BUN 17 Creatinine 1.0 Creat Clearance w eGFR 56.95 POC Glucometer Random Glucose 149 H D Calcium 9.1 Magnesium Ferritin 42.687 Cancelled Total Bilirubin 0.2 AST 15 D ALT 15 Alkaline Phosphatase 80 Total Protein 6.9 Albumin 2.8 L 03/09/17 03/09/17 05:43 11:57 WBC RBC Hgb Hct MCV MCHC RDW Plt Count MPV Neutrophils % Lymphocytes % Monocytes % Eosinophils % Basophils % Puncture Site ABG pH ABG pCO2 at Pt Temp ABG pO2 at Pt Temp ABG HCO3 ABG O2 Sat (Measured) ABG O2 Content ABG Base Excess Timmy Test Carboxyhemoglobin Methemoglobin O2 Delivery Device Oxygen Flow Rate PEEP Sodium Potassium Chloride Carbon Dioxide Anion Gap BUN Creatinine Creat Clearance w eGFR POC Glucometer 176 127 Random Glucose Calcium Magnesium Ferritin Total Bilirubin AST ALT Alkaline Phosphatase Total Protein Albumin Active Medications Generic Name Dose Route Start Last Admin Trade Name Freq PRN Reason Stop Dose Admin Albuterol/Ipratropium 1 amp 03/09/17 00:00 03/09/17 00:18 Duoneb - NEB 1 amp QIDR ZACHARY Administration Albuterol/Ipratropium 1 amp 03/08/17 23:53 03/09/17 09:08 Duoneb - NEB 1 amp Q6H PRN Administration SHORTNESS OF BREATH Budesonide/Formoterol Fumarate 2 puff 03/09/17 10:00 03/09/17 09:47 Symbicort 160/4.5mcg - IH Not Given BID ZACHARY Heparin Sodium (Porcine) 5,000 unit 03/09/17 06:00 03/09/17 05:47 Heparin - SQ Not Given TID ZACHARY Hydrochlorothiazide 25 mg 03/09/17 10:00 03/09/17 09:47 Hctz - PO 25 mg DAILY ZACHARY Administration Levofloxacin 150 mls @ 100 mls/hr 03/09/17 06:45 03/09/17 10:50 Levaquin 750 Mg Premixed Ivpb - IVPB 100 mls/hr DAILY ZACHARY Administration Insulin Aspart 1 vial 03/09/17 07:00 03/09/17 11:59 Novolog Vial Sliding Scale - SQ Not Given ACHS ZACHARY Protocol Methylprednisolone Sodium Succinate 60 mg 03/09/17 10:00 03/09/17 09:47 Solu-Medrol - IVPB 60 mg BID ZACHARY Administration CXR: No significant interval change ( as compared to 01/17/17) or acute lung disease is present. ASSESSMENT/PLAN: Patient is a 57 year old Female with significant PMH of COPD (on 2L O2 at home) , asthma, HTN, anxiety, former smoker presents to ER with SOB for the last 2 days. Pt with multiple admissions in the past for COPD/Asthma exacerbation. Currently admitted for COPD/asthma exacerbation. # COPD Exacerbation C/O sob, cough with greenish sputum Admitted in Med-Surg. Continue IV Levaquin 750mg daily although the CXR is normal since patient has had multiple admission due to exacerbations and greenish sputum production. Solu-medrol 60mg IV BID Salmeterol/Fluticasone BID; Duoneb Q6H PRN Flu swab ordered # Hypertension-controlled Continue HCTZ 25 mg PO Daily # Microcytic Anemia Hb-9.8/31.4 Continue Ferrous sulphate (takes at home) Pending Iron studies. Recommended patient for colonoscopy as outpatient # FEN Not on IV Fluids Electrolytes normal Diabetic Diet # Prophylaxis For DVT: On Heparin For GI: Not indicated # Code status: Full Code # Dispo: Admitted in Med-Surg. Patient said she has an important meeting tomorrow at 10am and would like to leave tonight if possible. Given the present medical condition, patient is not recommended to leave the hospital. Confirmed medications with the pharmacy-Takes Lopressor 50mg BId Illness, Investigation and Plan of care explained to the patient. She verbalized understanding. Case seen and discussed with Dr. Bear. Visit type - Emergency Visit Emergency Visit: Yes ED Registration Date: 03/08/17 Care time: The patient presented to the Emergency Department on the above date and was hospitalized for further evaluation of their emergent condition. - New Patient This patient is new to me today: Yes Date on this admission: 03/09/17 - Critical Care Critical Care patient: No - Discharge Referral Referred to [facility] Med [facility] No
[2017-03-09] MEDS ORDERED: FLUTICASONE/SALMETEROL 100 MCG/50 MCG DISKUS IH SCH (13:45)
--- NOTE | 2017-03-09 13:53 | PN ---
Teaching Attending Note Name of Resident: Leigh Brian ATTENDING PHYSICIAN STATEMENT I saw and evaluated the patient. I reviewed the resident's note and discussed the case with the resident. I agree with the resident's findings and plan as documented. SUBJECTIVE: no fever or chills. breathing is a little bit better compared to yesterday. chest pain in sternal area with cough only increased greenish sputum production . no sick contact OBJECTIVE: NAD , AAOx3 . CV: RRR Lungs : examined just after finishing Duo-Nebs treatment . no wheezes , has good air entry , and has prolonged exp phare Ext : no edema ABd : soft, NT ND , NL BS ASSESSMENT AND PLAN: 55 year old female with a history of COPD/bronchiectasis, a long history of cigarette smoking, polysubstance abuse, and HTN .The patient presented to the ED with SOB , and was found to have acute COPD exacerbation. 1- Acute COPD exa: slightly better than at presentation - check flu swab. - cont steroids ( Solumedrol 60 BID ) , and Duo-NEbs - hold Trudoza - pt is allergic to symbicort. will change to Advair - Levaquin for 3 days 2- Microcytic anemia : could be iron def anemia . she denies any bleed , never had a colonoscopy . - iron studies pending - no evidence of bleed. recommended colonoscopy as out pt 3- HTN: cont HCTZ 4- DVT px Pt needs to leave this evening for an important appointment tomorrow. risks of leaving including worsening respiratory status and even were explained to her . she understands. she can leave AMA if she wants as she is capable of making decisions
--- NOTE | 2017-03-09 14:39 | EKG ---
Test Reason : Blood Pressure : / mmHG Vent. Rate : 115 BPM Atrial Rate : 115 BPM P-R Int : 158 ms QRS Dur : 074 ms QT Int : 340 ms P-R-T Axes : 082 049 071 degrees QTc Int : 470 ms SINUS TACHYCARDIA BIATRIAL ENLARGEMENT ABNORMAL ECG WHEN COMPARED WITH ECG OF 17-JAN-2017 04:02, NO SIGNIFICANT CHANGE WAS FOUND Confirmed by GERMAINE SHEIKH MD ([id number]) on 03/09/2017 2:39:10 PM Referred By: Confirmed By:GERMAINE SHEIKH MD
[2017-03-09 15:36] VITALS: BP 141/84; PULSE 105; TEMP 98.2
[2017-03-09] MEDS ORDERED: FERROUS SO4 325 MG TABLET (FP) PO SCH (16:00)
[2017-03-09 16:37] VITALS: BMI 20.2
--- NOTE | 2017-03-09 20:17 | DS ---
Physical Exam: SUBJECTIVE: Patient seen and examined at bed side this afternoon. Patient said her breathing has improved. Denies chest pain, palpitation, abdominal pain, nausea or vomiting. Bowel/Bladder habit normal. Sleep/Appetite normal. OBJECTIVE: Vital Signs Period Temp Pulse Resp BP Sys/Echevarria Pulse Ox Last 24 Hr 97.7 F-98.5 F 102-109 18-18 112-141/62-87 93-96 PHYSICAL EXAM GENERAL: The patient is awake, alert, and fully oriented, in no acute distress, nasal canula in place. HEAD: Normal with no signs of trauma. EYES: EOM intact, no pallor or icterus. ENT: Ears normal, moist mucous membranes. NECK: Supple. LUNGS: Accessory muscle use +, Breath sounds equal, B/L decreased breath sounds , scattered wheezing but no crackles. HEART: Regular rate and rhythm, S1, S2 without murmur. ABDOMEN: Soft, nontender, nondistended, normoactive bowel sounds, no guarding, no rebound, no hepatosplenomegaly, no masses. EXTREMITIES: 2+ pulses, warm, well-perfused, no edema. NEUROLOGICAL: No facial droop, Bulk, tone-Normal. Cranial nerves II through XII grossly intact. Normal speech, gait not observed. PSYCH: Normal mood, normal affect. SKIN: Warm, dry, normal turgor, no rashes or lesions noted LABS Laboratory Results - last 24 hr 03/08/17 03/08/17 03/09/17 23:15 23:15 01:33 WBC 8.8 D RBC 4.80 Hgb 10.6 L Hct 34.1 MCV 71.0 L MCHC 31.0 L RDW 16.1 H Plt Count 178 MPV 8.6 Neutrophils % 91.9 H Lymphocytes % 6.4 L D Monocytes % 1.2 L Eosinophils % 0.1 D Basophils % 0.4 D Puncture Site Left radial ABG pH 7.34 L ABG pCO2 at Pt Temp 48.4 H ABG pO2 at Pt Temp 58.7 L D ABG HCO3 25.2 ABG O2 Sat (Measured) 89.1 L ABG O2 Content 13.3 L ABG Base Excess -0.4 Timmy Test Positive Carboxyhemoglobin 1.8 Methemoglobin 0.5 O2 Delivery Device Room air Oxygen Flow Rate No PEEP 0.0 Sodium 143 Potassium 4.1 Chloride 107 Carbon Dioxide 27 Anion Gap 9 BUN 15 D Creatinine 1.2 H Creat Clearance w eGFR 46.14 POC Glucometer Random Glucose 197 H D Calcium 8.8 Magnesium 2.1 Ferritin Total Bilirubin 0.2 AST 19 D ALT 16 Alkaline Phosphatase 89 Total Protein 7.2 Albumin 3.0 L 03/09/17 03/09/17 03/09/17 05:35 05:35 05:35 WBC 6.6 RBC 4.44 Hgb 9.8 L Hct 31.4 L MCV 70.6 L MCHC 31.1 L RDW 16.1 H Plt Count 182 MPV 9.0 Neutrophils % 79.6 Lymphocytes % 17.0 D Monocytes % 3.1 L D Eosinophils % 0.0 D Basophils % 0.3 Puncture Site ABG pH ABG pCO2 at Pt Temp ABG pO2 at Pt Temp ABG HCO3 ABG O2 Sat (Measured) ABG O2 Content ABG Base Excess Timmy Test Carboxyhemoglobin Methemoglobin O2 Delivery Device Oxygen Flow Rate PEEP Sodium 143 Potassium 4.6 Chloride 108 H Carbon Dioxide 26 Anion Gap 9 BUN 17 Creatinine 1.0 Creat Clearance w eGFR 56.95 POC Glucometer Random Glucose 149 H D Calcium 9.1 Magnesium Ferritin 42.687 Cancelled Total Bilirubin 0.2 AST 15 D ALT 15 Alkaline Phosphatase 80 Total Protein 6.9 Albumin 2.8 L 03/09/17 03/09/17 05:43 11:57 WBC RBC Hgb Hct MCV MCHC RDW Plt Count MPV Neutrophils % Lymphocytes % Monocytes % Eosinophils % Basophils % Puncture Site ABG pH ABG pCO2 at Pt Temp ABG pO2 at Pt Temp ABG HCO3 ABG O2 Sat (Measured) ABG O2 Content ABG Base Excess Timmy Test Carboxyhemoglobin Methemoglobin O2 Delivery Device Oxygen Flow Rate PEEP Sodium Potassium Chloride Carbon Dioxide Anion Gap BUN Creatinine Creat Clearance w eGFR POC Glucometer 176 127 Random Glucose Calcium Magnesium Ferritin Total Bilirubin AST ALT Alkaline Phosphatase Total Protein Albumin CXR: No significant interval change ( as compared to 01/17/17) or acute lung disease is present. HOSPITAL COURSE: Date of Admission:03/08/17 Date of Discharge: 03/09/17 Left against medical advice. Patient is a 57 year old Female with significant PMH of COPD (on 2L O2 at home) , asthma, HTN, anxiety, former smoker presents to ER with SOB for the last 2 days. Pt with multiple admissions in the past for COPD/Asthma exacerbation. Currently admitted for COPD/asthma exacerbation. Acute hypoxic respiratory failure likely secondary to COPD Exacerbation. Presented with complaints of sob, cough with greenish sputum. Admitted in Med- Surg. Was treated with IV Levaquin 750mg daily although the CXR is normal since patient has had multiple admission due to exacerbations and greenish sputum production. Solu-medrol 60mg IV BID. Salmeterol/Fluticasone BID; Duoneb Q6H PRN. Flu swab was negative. Patient said she has an important meeting tomorrow at 10am and would like to leave. Given the present medical condition, patient was recommended not to leave the hospital without the full course of treatment. Patient verbalized understanding the consequences of leaving. However, she left, said she will come back to the ER tomorrow once she finishes her work. Patient was prescribed Prednisone-tapering dose (unsure if she will pick it up from the pharmacy). Hypertension-controlled. Continue HCTZ 25 mg PO Daily. Confirmed with Pharmacy that she doesn't take Hydroxyzine and takes Lopressor 50mg Po BID. Microcytic Anemia. Hb-9.8/31.4. Continue Ferrous sulphate (takes at home) .Pending Iron studies. Recommended patient for colonoscopy as outpatient Plan of care explained to the patient. She verbalized understanding. Case seen and discussed with Dr. Bear. Minutes to complete discharge: 45 Discharge Summary Reason For Visit: CHROINC OBSTRUCTIVE ASTHMA WITH EXACERBATION Current Active Problems Asthma exacerbation in COPD (Acute) Sepsis (Acute) Shortness of breath (Acute) Bronchiectasis (Chronic) - Instructions Diet, Activity, Other Instructions: You were admitted for evaluation of COPD exacerbation. Chest x-ray didn't show any pneumonia. However, due to frequent hospitalization, you were being treated with IV antibiotics. Your oxygen saturation is very low without oxygen so we recommend you to use it more than 18 hours a day. We advice you not to leave against medical advice and to complete the course of medication. However, if you leave, please make sure you take your home medications and predinisone in tapering dose: 40 mg x 3days; 30 mg x 3 days, 20mg x 3days, 15mg x 3 days, 10mg x 3 days then stop. Return to the Emergency Department immediately if your symptoms worsen or if you develop any new symptoms. Referrals: Marija Ro MD [Primary Care Provider] - Disposition: AGAINST MEDICAL ADVICE - Home Medications Comprehensive Discharge Medication List: Ambulatory Orders Albuterol 0.083% Nebulizer Destiny [Ventolin 0.083% Nebulizer Soln -] 1 amp NEB Q4H PRN #0 amp 09/25/16 Hydrochlorothiazide [Hctz -] 25 mg PO DAILY tablet 09/25/16 Albuterol 2.5/Ipratropium 0.5 [Duoneb -] 1 amp NEB QIDR amp 03/09/17 Budesonide/Formeterol Fumarate [SYMBICORT 160/4.5mcg -] 2 puff IH BID #1 inhaler 03/09/17 Ferrous Sulfate [Feosol] 325 mg PO DAILY #30 cap 03/09/17 Metoprolol Tartrate [Lopressor] 50 mg PO BID 03/09/17 Prednisone [Deltasone -] See Taper PO DAILY #14 tablet 03/09/17 Salmeterol/Fluticasone [Advair 100Mcg/50Mcg -] 1 puff IH BID inhaler 03/09/17 This patient is new to me today: Yes Date on this admission: 03/09/17 Emergency Visit: Yes ED Registration Date: 03/08/17 Care time: The patient presented to the Emergency Department on the above date and was hospitalized for further evaluation of their emergent condition. Critical Care patient: No - Discharge Referral Referred to [facility] No
[2017-03-10 06:06] LABS: SERUM IRON 25 ug/dL (27-159); TOTAL IRON BINDING CAPACITY 281 ug/dL (250-450); TRANSFERRIN 225 mg/dL (200-370); UIBC 256 ug/dL (131-425)
[2017-03-10 06:36] LABS: MCH 21.9 pg (25.7-33.7); MCHC 31.1 g/dl (32.0-36.0); MEAN CELL VOLUME 70.5 fl (80-96); PLATELET COUNT 199 K/MM3 (134-434); RDW 16.4 % (11.6-15.6); WHITE BLOOD COUNT 10.5 K/mm3 (4.0-10.0)
[2017-03-10 07:16] LABS: ANION GAP 6 (8-16); CALCIUM 9.5 mg/dL (8.5-10.1); CO2 32 mmol/L (21-32); CREATININE 1.2 mg/dL (0.55-1.02); GLUCOSE,RANDOM 93 mg/dL (74-106)
== END 2017-03-09 17:00 | disposition left against medical advice (07) | DRG 140 ==
LOC: JER 17:55 → JERBED 21:51
PROVIDERS: ADMIT Internal Medicine; ATTEND Internal Medicine
DX: J44.1 Chronic obstructive pulmonary disease with (acute) exacerbation (principal); F41.8 Other specified anxiety disorders; N17.9 Acute kidney failure, unspecified; D50.9 Iron deficiency anemia, unspecified; M19.90 Unspecified osteoarthritis, unspecified site; I12.9 Hypertensive chronic kidney disease with stage 1 through stage 4 chronic kidney disease, or unspecified chronic kidney disease; N18.9 Chronic kidney disease, unspecified; Z99.81 Dependence on supplemental oxygen; Z87.891 Personal history of nicotine dependence; M16.11 Unilateral primary osteoarthritis, right hip
CPT/HCPCS: 36415; 36600; 71010-TC; 80048; 80053; 82375; 82728; 82803; 83050; 83540; 83550; 83735; 84466; 85025; 85027; 87254; 87804; 93005; 93010; 94640; 99284-25

== ENCOUNTER 2017-03-10 05:35 | Inpatient (IN) | payer OTHER ==
[2017-03-10] MEDS ORDERED: ALBUTEROL SO4 2.5/IPRATROPIUM 0.5 INH SOL 3 ML VIAL.NEB. NEB ONE ×3 (05:36→08:56)
--- NOTE | 2017-03-10 05:54 | PDOC ---
History of Present Illness - General Stated Complaint: ASTHMA Time Seen by Provider: 03/10/17 05:36 - History of Present Illness Initial Comments: 03/10/17 05:52 CHIEF COMPLAINT: SOB HISTORY OF PRESENT ILLNESS: 57 yo F with significant PMH of COPD (on 2L O2 at home), asthma, HTN, anxiety, drug abuse (crack) returns to ED with SOB. Pt with multiple admissions in the past for COPD/Asthma exacerbation and was recently admitted for same and signed out AMA yesterday morning "for an important meeting." PAST MEDICAL HISTORY: as per HPI FAMILY HISTORY: Denies SOCIAL HISTORY: former smoker quit 2 years ago, hx of crack cocaine use (quit 5 years ago) SURGICAL HISTORY: Denies ALLERGIES: Bactrim, walnuts, pecans REVIEW OF SYSTEMS General/Constitutional: Denies fever or chills. Denies weakness, weight change. HEENT: Denies change in vision. Denies ear pain or discharge. Denies sore throat. Cardiovascular: Denies chest pain or shortness of breath. Respiratory: SOB, cough, sneezing, runny nose x 5 days. Gastrointestinal: Denies nausea, vomiting, diarrhea or constipation. Denies rectal bleeding. Genitourinary: Denies dysuria, frequency, or change in urination. Musculoskeletal: Denies joint or muscle swelling or pain. Denies neck or back pain. Skin and breasts: Denies rash or easy bruising. Neurologic: Denies headache, vertigo, loss of consciousness, or loss of sensation. PHYSICAL EXAM General Appearance: Well-appearing, appropriately dressed. HEENT: EOMI, PERRLA, normal ENT inspection, normal voice, TMs normal, pharynx normal. No conjunctival pallor. No photophobia, scleral icterus. Neck: Supple. Trachea midline. No tenderness, rigidity, carotid bruit, stridor , lymphadenopathy, or thyromegaly. Respiratory/Chest: Diffuse wheezing b/l, cough with deep inspiration. SOB. No chest tenderness, accessory muscle use. Cardiovascular: RRR. S1, S2. Gastrointestinal/Abdominal: Normal bowel sounds. Abdomen soft, non-distended. No tenderness or rebound tenderness. No organomegaly, pulsatile mass, guarding , hernia, hepatomegaly, splenomegaly. Musculoskeletal/Extremities: Normal inspection. FROM of all extremities, normal capillary refill. Pelvis Stable. No CVA tenderness. No tenderness to extremities, pedal edema, swelling, erythema or deformity. Integumentary: Appropriate color, dry, warm. No cyanosis, erythema, jaundice or rash Neurologic: occ therapist II-XII intact. Fully oriented, alert. Appropriate mood/affect. Motor strength 5/5. No appreciable EOM palsy, facial droop or sensory deficit. Past History - Past Medical History Allergies/Adverse Reactions: Allergies Allergy/AdvReac Type Severity Reaction Status Date / Time black walnut Allergy Severe Hives Verified 03/12/17 10:54 sulfamethoxazole Allergy Severe Swelling Verified 03/10/17 05:47 [From Bactrim] trimethoprim [From Bactrim] Allergy Severe Swelling Verified 03/10/17 05:47 PECAN Allergy Severe Hives Uncoded 03/12/17 10:54 Home Medications: Ambulatory Orders Albuterol 0.083% Nebulizer Destiny [Ventolin 0.083% Nebulizer Soln -] 1 amp NEB Q4H PRN #0 amp 09/25/16 Hydrochlorothiazide [Hctz -] 25 mg PO DAILY tablet 09/25/16 Albuterol 2.5/Ipratropium 0.5 [Duoneb -] 1 amp NEB QIDR amp 03/09/17 Ferrous Sulfate [Feosol] 325 mg PO DAILY #30 cap 03/09/17 Metoprolol Tartrate [Lopressor] 50 mg PO BID 03/09/17 Hydroxyzine HCl 0 mg PO DAILY PRN 03/10/17 Umeclidinium [place]abella [Incruse Ellipta] 62.5 mcg IH DAILY 03/10/17 Anemia: No Asthma: Yes (Dx 2003) Cardiac Disorders: Yes CVA: No COPD: Yes Diabetes: No GI Disorders: No Disorders: No HTN: Yes Hypercholesterolemia: No Kidney Stones: No Psychiatric Problems: Yes (anxiety) Suicide Attempt (Hx): No Seizures: No Thyroid Disease: No - Surgical History Abdominal Surgery: No Appendectomy: No Cardiac Surgery: No Cholecystectomy: No Lung Surgery: No Neurologic Surgery: No Orthopedic Surgery: No - Reproductive History PID: No - Immunization History Immunization Up to Date: Yes - Psycho/Social/Smoking Cessation Hx Anxiety: No Suicidal Ideation: No Smoking Status: No Smoking History: Former smoker Have you smoked in the past 12 months: No Number of Cigarettes Smoked Daily: 0 If you are a former smoker, when did you quit?: 1 year ago Information on smoking cessation initiated: No 'Breaking Loose' booklet given: 04/10/15 Hx Alcohol Use: No Drug/Substance Use Hx: No Substance Use Type: Heroin Hx Substance Use Treatment: Yes Respiratory Specific PMHX - Complaint Specific PMHX TB (Tuberculosis): No *Physical Exam - Vital Signs Last Vital Signs Temp Pulse Resp BP Pulse Ox 97.9 F 103 H 26 H 150/92 100 03/10/17 05:36 03/10/17 05:36 03/10/17 05:36 03/10/17 05:36 03/10/17 05:36 ED Treatment Course - LABORATORY CBC & Chemistry Diagram: 03/13/17 06:00 03/13/17 06:00 - Medications Given in the ED: ED Medications Discontinued Medications Generic Name Dose Route Start Last Admin Trade Name Freq PRN Reason Stop Dose Admin Albuterol/Ipratropium 1 amp 03/10/17 05:36 03/10/17 05:46 Duoneb - NEB 03/10/17 05:37 1 amp ONCE ONE Administration Medical Decision Making - Medical Decision Making 03/10/17 05:57 57 yo F with significant PMH of COPD (on 2L O2 at home), asthma, HTN, anxiety, drug abuse (crack) returns to ED with SOB. -Duoneb -CXR 03/10/17 06:08 Case discussed in detail with oncoming emergency provider including history, physical exam and ancillary studies. In brief, this patient is being seen in the ED for a chief complaint of: SOB Plan for disposition as follows: pending Oncoming NPA Kt has assumed care for the patient and will complete the evaluation and treatment. *DC/Admit/Observation/Transfer Diagnosis at time of Disposition: COPD exacerbation, Shortness of breath
--- NOTE | 2017-03-10 07:04 | PDOC ---
*Physical Exam - Vital Signs Last Vital Signs Temp Pulse Resp BP Pulse Ox 97.9 F 103 H 26 H 150/92 100 03/10/17 05:36 03/10/17 05:36 03/10/17 05:36 03/10/17 05:36 03/10/17 05:36 ED Treatment Course - LABORATORY CBC & Chemistry Diagram: 03/13/17 06:00 03/13/17 06:00 - Medications Given in the ED: ED Medications Discontinued Medications Generic Name Dose Route Start Last Admin Trade Name Andrea PRN Reason Stop Dose Admin Albuterol/Ipratropium 1 amp 03/10/17 05:36 03/10/17 05:46 Duoneb - NEB 03/10/17 05:37 1 amp ONCE ONE Administration Medical Decision Making - Medical Decision Making 03/10/17 07:03 Patient received in sign out from CHEPE Adames. Patient with history of COPD and drug abuse. Patient was here yesterday and was recommended admission but had signed out AMA stating she had an appointment. Patient arrives back with complaints of cough and wheezing and shortness of breath. Was given DuoNeb upon arrival which seemed to alleviate her symptoms. Patient had chest x-ray that showed no acute findings. Yesterday's labs reviewed. Will reassess 03/10/17 09:24 Laboratory Tests 03/10/17 09:03 Urine Nitrite Negative Ur Leukocyte Esterase 1+ H Urine WBC 4 Ur Epithelial Cells Few Urine Mucus Rare Case discussed with hospitalist the patient will be admitted to [facility] for COPD exacerbation and dyspnea on exertion. *DC/Admit/Observation/Transfer Diagnosis at time of Disposition: COPD exacerbation, Shortness of breath - Discharge Dispostion Admit: Yes
[2017-03-10 09:15] LABS: URINE APPEARANCE CLEAR; URINE BILIRUBIN NEGATIVE (NEGATIVE); URINE BLOOD NEGATIVE (NEGATIVE); URINE COLOR STRAW; URINE GLUCOSE (UA) NEGATIVE (NEGATIVE); URINE KETONE NEGATIVE (NEGATIVE); URINE NITRITE NEGATIVE (NEGATIVE); URINE UROBILINOGEN NEGATIVE E.U./dl (0.2-1.0)
[2017-03-10 09:16] LABS: URINE LEUK ESTERASE 1+ (NEGATIVE); URINE PROTEIN 2+ (NEGATIVE)
--- NOTE | 2017-03-10 09:20 | HP ---
CHIEF COMPLAINT: PCP: HISTORY OF PRESENT ILLNESS: This is a 57 y/o F with PMH of COPD (on 2L O2 at home), asthma, HTN, anxiety, former smoker presents to ER with SOB for the last 5 days. SOB was exacerbated by a cold which started 03/05 with cough with green/rowell sputum production, runny nose (clear mucus), ROJAS, teary eyes. She also has some chest pain with coughing. SOB was at both rest and with exertion. Patient used nebs and alb inhaler with minimal relief. She has had these symptoms multiple times in the past and are similar to her symptoms with COPD/asthma exacerbation. She has not seen a building supervisor as an outpatient yet but was going to see unspecified building supervisor in the coming weeks as was recommended by her PCP. She denies N/V/ F/C, facial pressure, sick contacts, recent travel, abd pain, diarrhea, blood in stool, dysuria, blood in urine, peripheral swelling, throat pain, dizziness, light-headedness, palpitations. ER course was notable for: (1) HILL (2) normal CXR Recent Travel: denies PAST MEDICAL HISTORY: see HPI PAST SURGICAL HISTORY: Social History: Smoking: quit 2 years ago prior to that 45 pack years Alcohol: occasional Drugs: denies current use- crack cocaine use> 5 years ago Family History: Allergies black walnut Allergy (Severe, Verified 03/10/17 05:47) Hives sulfamethoxazole [From Bactrim] Allergy (Severe, Verified 03/10/17 05:47) Swelling trimethoprim [From Bactrim] Allergy (Severe, Verified 03/10/17 05:47) Swelling PECAN Allergy (Severe, Uncoded 03/10/17 05:47) Hives PECANS HOME MEDICATIONS: Home Medications 3 Medication Instructions Recorded Albuterol 0.083% Nebulizer Destiny 1 amp NEB Q4H PRN #0 amp 09/25/16 [Ventolin 0.083% Nebulizer Soln -] Hydrochlorothiazide [Hctz -] 25 mg PO DAILY tablet 09/25/16 Albuterol 2.5/Ipratropium 0.5 1 amp NEB QIDR amp 03/09/17 [Duoneb -] Ferrous Sulfate [Feosol] 325 mg PO DAILY #30 cap 03/09/17 Hydroxyzine HCl 0 mg PO DAILY PRN 03/10/17 Umeclidinium [place] [Incruse 62.5 mcg IH DAILY 03/10/17 Ellipta] REVIEW OF SYSTEMS CONSTITUTIONAL: Absent: fever, chills, diaphoresis, generalized weakness, malaise, loss of appetite, weight change HEENT: Present- sneezing, runny nose x 5 days Absent: nasal congestion, throat pain, throat swelling, difficulty swallowing, mouth swelling, ear pain, eye pain, visual changes CARDIOVASCULAR: Present- chest pain Absent: syncope, palpitations, irregular heart rate, lightheadedness, peripheral edema RESPIRATORY: Present- cough, shortness of breath, wheezing Absent: dyspnea with exertion, orthopnea, stridor, hemoptysis GASTROINTESTINAL: Absent: abdominal pain, abdominal distension, nausea, vomiting, diarrhea, constipation, melena, hematochezia GENITOURINARY: Present- frequency Absent: dysuria, urgency, hesitancy, hematuria, flank pain, genital pain MUSCULOSKELETAL: Absent: myalgia, arthralgia, joint swelling, back pain, neck pain SKIN: Absent: rash, itching, pallor HEMATOLOGIC/IMMUNOLOGIC: Absent: easy bleeding, easy bruising, lymphadenopathy, frequent infections ENDOCRINE: Absent: unexplained weight gain, unexplained weight loss, heat intolerance, cold intolerance NEUROLOGIC: Absent: headache, focal weakness or paresthesias, dizziness, unsteady gait, seizure, mental status changes, bladder or bowel incontinence PSYCHIATRIC: Absent: anxiety, depression, suicidal or homicidal ideation, hallucinations. PHYSICAL EXAMINATION Vital Signs - 24 hr 3 03/10/17 03/10/17 05:36 07:16 Temperature 97.9 F 97.6 F Pulse Rate 103 H 98 H Pulse Rate [ 98 H Right Radial] Respiratory 26 H 22 Rate Blood Pressure 150/92 Blood Pressure 153/75 [Left Arm] O2 Sat by Pulse 100 96 Oximetry (%) GENERAL: Awake, alert, and fully oriented, in no acute distress. HEAD: Normal with no signs of trauma. EYES: Pupils equal, round and reactive to light, extraocular movements intact, sclera anicteric, conjunctiva clear. No lid lag. EARS, NOSE, THROAT: Ears normal, nares patent, oropharynx clear without exudates. Moist mucous membranes. NECK: Normal range of motion, supple without lymphadenopathy, JVD, or masses. LUNGS: Breath sounds equal, clear to auscultation bilaterally. No crackles. Diffuse wheezes. Prolonged expiratory phase. Accessory muscle use. 3 word dyspnea. 2 pillow orthopnea. HEART: Regular rate and rhythm, normal S1 and S2 without murmur, rub or gallop. ABDOMEN: Soft, nontender, not distended, normoactive bowel sounds, no guarding, no rebound, no masses. No hepatomegaly or splenomegaly. MUSCULOSKELETAL: Normal range of motion at all joints. No bony deformities or tenderness. Right CVA tenderness. UPPER EXTREMITIES: 2+ pulses, warm, well-perfused. No cyanosis. No clubbing. No peripheral edema. LOWER EXTREMITIES: 2+ pulses, warm, well-perfused. No calf tenderness. No peripheral edema. NEUROLOGICAL: Cranial nerves II-XII intact. Normal speech. Normal gait. PSYCHIATRIC: Cooperative. Good eye contact. Appropriate mood and affect. SKIN: Warm, dry, normal turgor, no rashes or lesions noted, normal capillary refill. Laboratory Results - last 24 hr 3 03/10/17 09:03 Urine Color Straw Urine Appearance Clear Urine pH 5.0 Urine Protein 2+ H Urine Glucose (UA) Negative Urine Ketones Negative Urine Blood Negative Urine Nitrite Negative Urine Bilirubin Negative Urine Urobilinogen Negative Ur Leukocyte Esterase 1+ H ASSESSMENT/PLAN: A: 55 year old female with a history of COPD/bronchiectasis, a long history of cigarette smoking, polysubstance abuse, and HTN .The patient presented to the ED with SOB , and was found to have acute COPD exacerbation. P: 1. Acute COPD exac - flu swab negative - Solumedrol 40 TID, and Duo-Nebs - Start Advair - Levaquin 750 mg for 2 days- dose #1 given on previous admission 03/09 - pulm consulted 2. UTI - urine cx - coverage with Levaquin above 3. Microcytic anemia - likely from chronic inflammation given Fe studies - no evidence of bleed. recommended colonoscopy as out pt 4. HTN - continue HCTZ 25mg daily - start Norvasc 5mg daily 5. PPX - heparin SQ bid 6. F/E/N - regular diet - replete prn Dispo- This patient requires observation for her acute medical conditions. Code Status- FULL CODE Visit type - Emergency Visit Emergency Visit: Yes ED Registration Date: 03/10/17 Care time: The patient presented to the Emergency Department on the above date and was hospitalized for further evaluation of their emergent condition. - New Patient This patient is new to me today: Yes Date on this admission: 03/10/17 - Critical Care Critical Care patient: No
[2017-03-10 09:21] LABS: URINE HYALINE CAST 3 /lpf; URINE MUCUS RARE; URINE RBC 1 /hpf (0-3); URINE WBC 4 /hpf (3-5)
[2017-03-10 09:38] LABS: URINE MARIJUANA THC NEGATIVE ng/ml (CUTOFF=50)
[2017-03-10] MEDS ORDERED: ALBUTEROL SO4 2.5/IPRATROPIUM 0.5 INH SOL 3 ML VIAL.NEB. NEB PRN (11:02)
[2017-03-10] MEDS ORDERED: ALBUTEROL SO4 0.083% IH SOL 2.5 MG/3 ML VIAL.NEB. NEB PRN (11:02)
[2017-03-10] MEDS ORDERED: HYDROCHLOROTHIAZIDE 25 MG TABLET (FP) PO SCH (11:45)
[2017-03-10] MEDS ORDERED: predniSONE 20 MG TABLET (UD) PO SCH (12:00)
[2017-03-10 12:33] VITALS: BMI 28.6
[2017-03-10] MEDS ORDERED: PT OWN MED DRAWER 7, Y5N ONE (14:11)
[2017-03-10] MEDS: amLODIPine BESYLATE 5 MG TABLET (FP) PO SCH (14:17)
[2017-03-10] MEDS ORDERED: LEVOFLOXACIN 750 MG IVPB 150 ML IVPB ONE (16:10)
[2017-03-10] MEDS: ALBUTEROL SO4 2.5/IPRATROPIUM 0.5 INH SOL 3 ML VIAL.NEB. NEB SCH ×2 (16:15→17:28)
[2017-03-10] MEDS: FLUTICASONE/SALMETEROL 100 MCG/50 MCG DISKUS IH SCH ×2 (17:33→22:07)
[2017-03-10] MEDS: methylPREDNISolone NA SUCC 40 MG/1 ML VIAL IVPB SCH (17:34)
[2017-03-10] MEDS: INSULIN SLIDING SCALE (NOVOLOG) 1 VIAL SQ SCH ×2 (17:50→22:09)
[2017-03-10] MEDS: HEPARIN NA (PORCINE) 5,000 UNITS/ML 1ML VIAL SQ SCH (22:09)
[2017-03-11] MEDS: ALBUTEROL SO4 2.5/IPRATROPIUM 0.5 INH SOL 3 ML VIAL.NEB. NEB SCH ×5 (00:06→23:15)
[2017-03-11] MEDS: methylPREDNISolone NA SUCC 40 MG/1 ML VIAL IVPB SCH ×3 (01:13→17:07)
[2017-03-11] MEDS: INSULIN SLIDING SCALE (NOVOLOG) 1 VIAL SQ SCH ×3 (06:05→16:35)
[2017-03-11 07:29] LABS: MCH 22.4 pg (25.7-33.7); MCHC 31.7 g/dl (32.0-36.0); MEAN CELL VOLUME 70.7 fl (80-96); MEAN PLT VOLUME 8.5 fl (7.5-11.1); PLATELET COUNT 181 K/MM3 (134-434); RDW 16.2 % (11.6-15.6); WHITE BLOOD COUNT 6.4 K/mm3 (4.0-10.0)
[2017-03-11 07:50] LABS: CALCIUM 9.4 mg/dL (8.5-10.1)
[2017-03-11 07:54] LABS: ANION GAP 10 (8-16); CO2 29 mmol/L (21-32); GLUCOSE,RANDOM 139 mg/dL (74-106)
[2017-03-11] MEDS: PATIENT'S OWN MEDICATION (NON-FORMULARY) (Umeclidinium Bromide [Incruse Ellipta] 62.5 MCG) IH SCH ×2 (08:35→10:27)
[2017-03-11 08:37] LABS: ANISOCYTOSIS 1+; HYPOCHROMIA 1+; PLATELET ESTIMATE ADEQUATE (NORMAL); TARGET CELLS FEW
--- NOTE | 2017-03-11 08:54 | PN ---
Physical Exam: SUBJECTIVE: Patient seen and examined at bed side this morning. Apparently, patient was admitted on 03/08/2017 for Acute exacerbation of COPD. Patient signed out AMA on 03/09/17, said she had an important meeting to attend and said she would come back the next day after she finished her work. So she came back. C/o SOB + but has improved. Has dry cough on/off. Denies chest pain, palpitations, abdominal pain, nausea or vomiting. OBJECTIVE: Vital Signs Period Temp Pulse Resp BP Sys/Echevarria Pulse Ox Last 24 Hr 97.6 F-99 F 92-109 20- 119-150/68-86 95-97 GENERAL: The patient is awake, alert, and fully oriented, in no acute distress, nasal canula in place. HEAD: Normal with no signs of trauma. EYES: EOM intact, no pallor or icterus. ENT: Ears normal, moist mucous membranes. NECK: Supple. LUNGS: Accessory muscle use +, Breath sounds equal, B/L decreased breath sounds , scattered wheezing but no crackles. HEART: Regular rate and rhythm, S1, S2 without murmur. ABDOMEN: Soft, nontender, nondistended, normoactive bowel sounds, no guarding, no rebound, no hepatosplenomegaly, no masses. EXTREMITIES: 2+ pulses, warm, well-perfused, no edema. NEUROLOGICAL: No facial droop, Bulk, tone-Normal. Cranial nerves II through XII grossly intact. Normal speech, gait not observed. PSYCH: Normal mood, normal affect. SKIN: Warm, dry, normal turgor, no rashes or lesions noted Laboratory Results - last 24 hr 03/10/17 03/10/17 03/11/17 16:56 22:06 05:25 WBC RBC Hgb Hct MCV MCHC RDW Plt Count MPV Neutrophils % Lymphocytes % Monocytes % Eosinophils % Basophils % Band Neutrophils Myelocytes Differential Comment Platelet Estimate Hypochromic-Microcytic Basophilic Stippling Anisocytosis Target Cells Sodium Potassium Chloride Carbon Dioxide Anion Gap BUN Creatinine POC Glucometer 136 293 143 Random Glucose Calcium 03/11/17 03/11/17 06:00 06:00 WBC 6.4 D RBC 4.67 Hgb 10.5 L Hct 33.0 MCV 70.7 L MCHC 31.7 L RDW 16.2 H Plt Count 181 MPV 8.5 Neutrophils % 66.0 Lymphocytes % 22.0 D Monocytes % 2.0 L Eosinophils % 0.0 Basophils % 0.0 Band Neutrophils 6.0 D Myelocytes 4 H Differential Comment Manual diff done Platelet Estimate Adequate Hypochromic-Microcytic 1+ Basophilic Stippling Occ Anisocytosis 1+ Target Cells Few Sodium 141 Potassium 4.5 Chloride 102 Carbon Dioxide 29 Anion Gap 10 BUN 24 H Creatinine 1.0 POC Glucometer Random Glucose 139 H D Calcium 9.4 Active Medications Generic Name Dose Route Start Last Admin Trade Name Freq PRN Reason Stop Dose Admin Albuterol Sulfate 1 amp 03/10/17 11:02 Ventolin 0.083% Nebulizer Soln - NEB Q4H PRN SHORT OF BREATH/WHEEZING Albuterol/Ipratropium 1 amp 03/10/17 15:30 03/11/17 06:31 Duoneb - NEB 1 amp QIDR ZACHARY Administration Amlodipine Besylate 5 mg 03/10/17 12:00 03/10/17 14:17 Norvasc - PO 5 mg DAILY ZACHARY Administration Ferrous Sulfate 325 mg 03/11/17 10:00 Feosol - PO DAILY ZACHARY Heparin Sodium (Porcine) 5,000 unit 03/10/17 22:00 03/10/17 22:09 Heparin - SQ 5,000 unit BID ZACHARY Administration Hydrochlorothiazide 25 mg 03/11/17 10:00 Hctz - PO DAILY ZACHARY Levofloxacin 150 mls @ 100 mls/hr 03/11/17 08:48 Levaquin 750 Mg Premixed Ivpb - IVPB 03/11/17 10:17 DAILY ONE Insulin Aspart 1 vial 03/10/17 16:30 03/11/17 06:05 Novolog Vial Sliding Scale - SQ Not Given ACHS [facility] Protocol Methylprednisolone Sodium Succinate 40 mg 03/10/17 18:00 03/11/17 01:13 Solu-Medrol - IVPB 40 mg Q8H-IV ZACHARY Administration Non-Formulary Medication 62.5 mcg 03/10/17 11:45 03/11/17 08:35 Umeclidinium [place] [Incruse Ellipta] IH Not Given DAILY ZACHARY Fluticasone/Salmeterol 1 puff 03/10/17 13:00 03/10/17 22:07 Advair 100mcg/50mcg - IH 1 puff BID ZACHARY Administration ASSESSMENT/PLAN: CXR: No significant interval change ( as compared to 01/17/17) or acute lung disease is present. ASSESSMENT/PLAN: Patient is a 57 year old Female with significant PMH of COPD (on 2L O2 at home) , asthma, HTN, anxiety, former smoker presents to ER with SOB for the last 2 days. Pt with multiple admissions in the past for COPD/Asthma exacerbation. Currently admitted for COPD/asthma exacerbation. # COPD Exacerbation C/O sob, cough on/off Admitted in Med-Surg. Continue IV Levaquin 750mg daily although the CXR is normal since patient has had multiple admission due to exacerbations Solu-medrol 40mg IV Q8H Salmeterol/Fluticasone BID; Duoneb Q6H PRN Flu swab negative 03/09/17 Pulmonary consult requested. # Hypertension-controlled Continue HCTZ 25 mg PO Daily Amlodipine 5mg daily # Microcytic anemia most likely Iron deficiency anemia Hb-10. Continue Ferrous sulphate (takes at home) Iron studies 03/09/17: Iron 25; Iron saturation low, normal TIBC, Transferrin and Ferritin . Recommended patient for colonoscopy as outpatient # Prediabetic HbA1c 5.8 % (01/18/17), DC sliding scale. Diet and counseling # FEN Not on IV Fluids Electrolytes normal Diabetic Diet # Prophylaxis For DVT: On Heparin For GI: Not indicated # Code status: Full Code # Dispo: Admitted in Med-Surg. Duration of stay unknown. Confirmed medications with the pharmacy Illness, Investigation and Plan of care explained to the patient. She verbalized understanding. Case seen and discussed with Dr. Lazo. Visit type - Emergency Visit Emergency Visit: Yes ED Registration Date: 03/11/17 Care time: The patient presented to the Emergency Department on the above date and was hospitalized for further evaluation of their emergent condition. - New Patient This patient is new to me today: Yes Date on this admission: 03/11/17 - Critical Care Critical Care patient: No
[2017-03-11] MEDS: LEVOFLOXACIN 750 MG IVPB 150 ML IVPB SCH ×2 (09:31→10:07)
[2017-03-11] MEDS ORDERED: PT OWN MED DRAWER 7, Y5N ONE ×2 (09:39→10:23)
[2017-03-11] MEDS: HEPARIN NA (PORCINE) 5,000 UNITS/ML 1ML VIAL SQ SCH ×2 (09:45→21:41)
[2017-03-11] MEDS: HYDROCHLOROTHIAZIDE 25 MG TABLET (FP) PO SCH (09:45)
[2017-03-11] MEDS: FERROUS SO4 325 MG TABLET (FP) PO SCH (09:46)
--- NOTE | 2017-03-11 10:14 | CON.PULM ---
Consult Consult Specialty:: PULMONARY Referred by:: CHEPE Espinoza Reason for Consultation:: COPD exacerbation - History of Present Illness Chief Complaint: shortness of breath History of Present Illness: 57yo female with h/o HTN, COPD, chronic hypoxic respiratory failure on home O2 since December 2016 who presents with worsening shortness of breath x 5 days. Denies chest pain or palpitations. No fevers, chills or sweats. Denies sick contacts or recent travel. Compliant with her oxygen and maintenance inhalers but without relief of symptoms. Reports a cough productive of white/delgado sputum different than her chronic cough with clear sputum. Also reports increase in wheezing. She is a former long time smoker, started at age 16, smoked about 2 PPD until about 2 years ago. Also was a former crack user. No history of asthma or COPD in her family. - History Source History Provided By: Patient, Medical Record Limitations to Obtaining History: No Limitations - Past Medical History Cardio/Vascular: Yes: HTN Pulmonary: Yes: COPD, O2 Dependent. No: Previously Intubated, Pulmonary Embolus , Sleep Apnea ...LMP: 05/18/11 - Alcohol/Substance Use Hx Alcohol Use: No History of Substance Use: reports: None - Smoking History Smoking history: Former smoker Have you smoked in the past 12 months: No Aproximately how many cigarettes per day: 0 If you are a former smoker, when did you quit?: 1 year ago - Social History ADL: Independent History of Recent Travel: No Home Medications - Allergies Allergies/Adverse Reactions: Allergies Allergy/AdvReac Type Severity Reaction Status Date / Time black walnut Allergy Severe Hives Verified 03/10/17 05:47 sulfamethoxazole Allergy Severe Swelling Verified 03/10/17 05:47 [From Bactrim] trimethoprim [From Bactrim] Allergy Severe Swelling Verified 03/10/17 05:47 PECAN Allergy Severe Hives Uncoded 03/10/17 05:47 - Home Medications Home Medications: Ambulatory Orders Albuterol 0.083% Nebulizer [place] [Ventolin 0.083% Nebulizer Soln -] 1 amp NEB Q4H PRN #0 amp 09/25/16 Hydrochlorothiazide [Hctz -] 25 mg PO DAILY tablet 09/25/16 Albuterol 2.5/Ipratropium 0.5 [Duoneb -] 1 amp NEB QIDR amp 03/09/17 Ferrous Sulfate [Feosol] 325 mg PO DAILY #30 cap 03/09/17 Metoprolol Tartrate [Lopressor] 50 mg PO BID 03/09/17 Hydroxyzine HCl 0 mg PO DAILY PRN 03/10/17 Umeclidinium [place] [Incruse Ellipta] 62.5 mcg IH DAILY 03/10/17 Family Disease History - Family Disease History Other Family History: non-contributory Review of Systems - Review of Systems Constitutional: denies: Chills, Fever Eyes: denies: Recent Change in Vision HENT: denies: Nasal Congestion, Throat Pain Neck: denies: Stiffness, Tenderness Cardiovascular: reports: Shortness of Breath. denies: Chest Pain, Palpitations Respiratory: reports: Cough, SOB, Wheezing. denies: Hemoptysis Gastrointestinal: denies: Abdominal Pain, Nausea, Vomiting Genitourinary: denies: Dysuria, Hematuria Neurological: denies: Dizziness, Headache Endocrine: denies: Unexplained Weight Gain, Unexplained Weight Loss Physical Exam Vital Sings: Vital Signs Temperature 98.7 F 03/11/17 08:00 Pulse Rate 103 H 03/11/17 08:00 Respiratory Rate 18 03/11/17 08:00 Blood Pressure 133/80 03/11/17 08:00 O2 Sat by Pulse Oximetry (%) 97 03/10/17 23:57 Constitutional: Yes: Calm Eyes: Yes: Conjunctiva Clear, EOM Intact HENT: Yes: Atraumatic, Normocephalic Neck: Yes: Supple, Trachea Midline Cardiovascular: Yes: Regular Rate and Rhythm Respiratory: Yes: Rhonchi, Wheezes ...Clubbing: No Gastrointestinal: Yes: Normal Bowel Sounds, Soft. No: Tenderness Edema: No Neurological: Yes: Alert, Oriented Imaging - Results Chest X-ray: Report Reviewed, Image Reviewed (no infiltrates) Problem List - Problems (1) COPD exacerbation Code(s): J44.1 - CHRONIC OBSTRUCTIVE PULMONARY DISEASE W (ACUTE) EXACERBATION (2) Acute bronchitis Code(s): J20.9 - ACUTE BRONCHITIS, UNSPECIFIED Qualifiers: Bronchitis organism: unspecified organism Qualified Code(s): J20.9 - Acute bronchitis, unspecified (3) Emphysema lung Code(s): J43.9 - EMPHYSEMA, UNSPECIFIED (4) Bronchiectasis Code(s): J47.9 - BRONCHIECTASIS, UNCOMPLICATED (5) Chronic respiratory failure with hypoxia Code(s): J96.11 - CHRONIC RESPIRATORY FAILURE WITH HYPOXIA (6) Hypertension Code(s): I10 - ESSENTIAL (PRIMARY) HYPERTENSION Qualifiers: Hypertension type: essential hypertension Qualified Code(s): I10 - Essential (primary) hypertension Assessment/Plan Acute COPD Exacerbation Acute Bronchitis Bronchiectasis Emphysema HTN Chronic Hypoxic Respiratory Failure - IV medrol - inhaled bronchodilators standing and PRN - continue antibiotics, can decrease dose to 500mg daily - sputum culture - O2 to keep SPo2 >90% - DVT prophylaxis Thank you for this consult Aaron Blakely MD
[2017-03-11] MEDS: FLUTICASONE/SALMETEROL 100 MCG/50 MCG DISKUS IH SCH ×2 (10:25→21:39)
[2017-03-11] MEDS: amLODIPine BESYLATE 5 MG TABLET (FP) PO SCH (10:25)
--- NOTE | 2017-03-11 15:37 | PN ---
Teaching Attending Note Name of Resident: Leigh Brian ATTENDING PHYSICIAN STATEMENT I saw and evaluated the patient. I reviewed the resident's note and discussed the case with the resident. I agree with the resident's findings and plan as documented. SUBJECTIVE: Patient is feeling better today but still feeling shortness of breath. OBJECTIVE: Vital Signs Temp 97.8 F 03/11/17 15:33 Pulse 104 H 03/11/17 15:33 Resp 20 03/11/17 15:33 BP 124/66 03/11/17 15:33 Pulse Ox 97 03/11/17 11:30 Intake & Output 03/10/17 03/11/17 03/11/17 23:59 11:59 23:59 Intake Total 0 20 500 Balance 0 20 500 Intake: IV 0 20 saline lock 0 20 Oral 500 Other: Voiding Method Toilet Toilet Bowel Movement No CBCD WBC 6.4 K/mm3 (4.0-10.0) D 03/11/17 06:00 RBC 4.67 M/mm3 (3.60-5.2) 03/11/17 06:00 Hgb 10.5 GM/dL (10.7-15.3) L 03/11/17 06:00 Hct 33.0 % (32.4-45.2) 03/11/17 06:00 MCV 70.7 fl (80-96) L 03/11/17 06:00 MCHC 31.7 g/dl (32.0-36.0) L 03/11/17 06:00 RDW 16.2 % (11.6-15.6) H 03/11/17 06:00 Plt Count 181 K/MM3 (134-434) 03/11/17 06:00 MPV 8.5 fl (7.5-11.1) 03/11/17 06:00 CMP Sodium 141 mmol/L (136-145) 03/11/17 06:00 Potassium 4.5 mmol/L (3.5-5.1) 03/11/17 06:00 Chloride 102 mmol/L (98-107) 03/11/17 06:00 Carbon Dioxide 29 mmol/L (21-32) 03/11/17 06:00 Anion Gap 10 (8-16) 03/11/17 06:00 BUN 24 mg/dL (7-18) H 03/11/17 06:00 Creatinine 1.0 mg/dL (0.55-1.02) 03/11/17 06:00 Random Glucose 139 mg/dL (74-106) H D 03/11/17 06:00 Calcium 9.4 mg/dL (8.5-10.1) 03/11/17 06:00 Home Medications Medication Instructions Recorded Albuterol 0.083% Nebulizer Destiny 1 amp NEB Q4H PRN #0 amp 09/25/16 [Ventolin 0.083% Nebulizer Soln -] Hydrochlorothiazide [Hctz -] 25 mg PO DAILY tablet 09/25/16 Albuterol 2.5/Ipratropium 0.5 1 amp NEB QIDR amp 03/09/17 [Duoneb -] Ferrous Sulfate [Feosol] 325 mg PO DAILY #30 cap 03/09/17 Metoprolol Tartrate [Lopressor] 50 mg PO BID 03/09/17 Hydroxyzine HCl 0 mg PO DAILY PRN 03/10/17 Umeclidinium [place] [Incruse 62.5 mcg IH DAILY 03/10/17 Ellipta] Current Medications Generic Name Dose Route Start Last Admin Trade Name Freq PRN Reason Stop Dose Admin Albuterol Sulfate 1 amp 03/10/17 11:02 Ventolin 0.083% Nebulizer Soln - NEB Q4H PRN SHORT OF BREATH/WHEEZING Albuterol/Ipratropium 1 amp 03/10/17 15:30 03/11/17 11:30 Duoneb - NEB 1 amp QIDR ZACHARY Administration Amlodipine Besylate 5 mg 03/10/17 12:00 03/11/17 10:25 Norvasc - PO 5 mg DAILY ZACHARY Administration Ferrous Sulfate 325 mg 03/11/17 10:00 03/11/17 09:46 Feosol - PO 325 mg DAILY ZACHARY Administration Heparin Sodium (Porcine) 5,000 unit 03/10/17 22:00 03/11/17 09:45 Heparin - SQ 5,000 unit BID ZACHARY Administration Hydrochlorothiazide 25 mg 03/11/17 10:00 03/11/17 09:45 Hctz - PO 25 mg DAILY ZACHARY Administration Levofloxacin 100 mls @ 100 mls/hr 03/12/17 10:00 Levaquin 500 Mg Premixed Ivpb - IVPB DAILY [facility] Insulin Aspart 1 vial 03/10/17 16:30 03/11/17 11:47 Novolog Vial Sliding Scale - SQ Not Given ACHS ZACHARY Protocol Methylprednisolone Sodium Succinate 40 mg 03/10/17 18:00 03/11/17 09:44 Solu-Medrol - IVPB 40 mg Q8H-IV ZACHARY Administration Non-Formulary Medication 62.5 mcg 03/10/17 11:45 03/11/17 10:27 Umeclidinium [place] [Incruse Ellipta] IH Not Given DAILY ZACHARY Fluticasone/Salmeterol 1 puff 03/10/17 13:00 03/11/17 10:25 Advair 100mcg/50mcg - IH 1 puff BID ZACHARY Administration Urine Test Results Urine Color Straw 03/10/17 09:03 Urine Appearance Clear 03/10/17 09:03 Urine pH 5.0 (5.0-8.0) 03/10/17 09:03 Ur Specific [place] 1.025 (1.005-1.025) 03/10/17 09:03 Urine Protein 2+ (NEGATIVE) H 03/10/17 09:03 Urine Glucose (UA) Negative (NEGATIVE) 03/10/17 09:03 Urine Ketones Negative (NEGATIVE) 03/10/17 09:03 Urine Blood Negative (NEGATIVE) 03/10/17 09:03 Urine Nitrite Negative (NEGATIVE) 03/10/17 09:03 Urine Bilirubin Negative (NEGATIVE) 03/10/17 09:03 Ur Leukocyte Esterase 1+ (NEGATIVE) H 03/10/17 09:03 Urine RBC 1 /hpf (0-3) 03/10/17 09:03 Urine WBC 4 /hpf (3-5) 03/10/17 09:03 Ur Epithelial Cells Few /hpf (FEW) 03/10/17 09:03 Urine Mucus Rare 03/10/17 09:03 PE: per resident's note ASSESSMENT AND PLAN: Patient is a 55 year old female with a history of COPD/bronchiectasis, a long history of cigarette smoking, polysubstance abuse, and HTN .The patient presented to the ED with SOB , and was found to have acute COPD exacerbation. # Acute COPD exacerbation on Levaquin IV continue, on IV Solumedrol 40 TID, and Duo-Nebs , on Advair continue, pulmonary consult # Microcytic anemia ; Fe studies ordered. no evidence of bleed. colonoscopy as out pt # HTN Controlled continue HCTZ 25mg daily , start Norvasc 5mg daily DVT px: heparin SQ bid Code Status- FULL CODE
--- NOTE | 2017-03-11 16:08 | MSN ---
Progress Note (short form) - Note Progress Note: Subjective: Patient seen and examined at bedside this morning. Patient had left hospital AMA (03-09) to attend an important meeting but presented to ER - following meeting. Patient states her breathing is moderately improved but she continues to have a chronic cough which is productive of greenish/rowell sputum for the past 4 days associated with chest pain and dyspnea with short distances (walking to bathroom). She denies fever, chills, headache, and nausea /vomiting. She admits to urinary frequency. The patient wants to be certain she is receiving hydroxyzine for her anxiety. Patient has no other complaints. Objective: Vital Signs Period Temp Pulse Resp BP Sys/Echevarria Pulse Ox Last 24 Hr 98.1 F-99 F 92-109 18-20 119-133/68-86 97-97 General: Well-nourished patient in acute distress, sitting up in bed, alert and orientated x3 Head: Normocephalic, atraumatic Eyes: EOMI, no scleral icterus, clear conjuctiva Nose: Nasal septum intact; No erythema or edema Mouth/pharynx: No exudates, no erythema, tongue and uvula midline, moist mucous membranes Neck: Supple, no lymphadenopathy, trachea midline, no JVD Lungs: b/l expiratory wheezes, prolonged expiratory phase, accessory muscle use Heart: Regular rate and rhythm, normal S1/S2 no murmurs, rubs or gallops Abdomen: Soft, non-tender, normoactive bowel sounds, no hepatomegaly, no splenomegaly, no masses Extremities: Warm, 2+ pulses, no edema Neurological: CN II-XII grossly intact, no facial droop, normal speech, 5/5 muscle strength b/l; gait not observed Skin: No lesions or rashes, no digital clubbing Laboratory Results - last 24 hr 03/10/17 03/10/17 03/10/17 09:03 16:56 22:06 WBC RBC Hgb Hct MCV MCHC RDW Plt Count MPV Neutrophils % Lymphocytes % Monocytes % Eosinophils % Basophils % Band Neutrophils Myelocytes Differential Comment Platelet Estimate Hypochromic-Microcytic Basophilic Stippling Anisocytosis Target Cells Sodium Potassium Chloride Carbon Dioxide Anion Gap BUN Creatinine POC Glucometer 136 293 Random Glucose Calcium Urine Color Straw Urine Appearance Clear Urine pH 5.0 Ur Specific [place] 1.025 Urine Protein 2+ H Urine Glucose (UA) Negative Urine Ketones Negative Urine Blood Negative Urine Nitrite Negative Urine Bilirubin Negative Urine Urobilinogen Negative Ur Leukocyte Esterase 1+ H Urine RBC 1 Urine WBC 4 Ur Epithelial Cells Few Hyaline Casts 3 Urine Mucus Rare 03/11/17 03/11/17 03/11/17 05:25 06:00 06:00 WBC 6.4 D RBC 4.67 Hgb 10.5 L Hct 33.0 MCV 70.7 L MCHC 31.7 L RDW 16.2 H Plt Count 181 MPV 8.5 Neutrophils % 66.0 Lymphocytes % 22.0 D Monocytes % 2.0 L Eosinophils % 0.0 Basophils % 0.0 Band Neutrophils 6.0 D Myelocytes 4 H Differential Comment Manual diff done Platelet Estimate Adequate Hypochromic-Microcytic 1+ Basophilic Stippling Occ Anisocytosis 1+ Target Cells Few Sodium 141 Potassium 4.5 Chloride 102 Carbon Dioxide 29 Anion Gap 10 BUN 24 H Creatinine 1.0 POC Glucometer 143 Random Glucose 139 H D Calcium 9.4 Urine Color Urine Appearance Urine pH Ur Specific [place] Urine Protein Urine Glucose (UA) Urine Ketones Urine Blood Urine Nitrite Urine Bilirubin Urine Urobilinogen Ur Leukocyte Esterase Urine RBC Urine WBC Ur Epithelial Cells Hyaline Casts Urine Mucus 03/11/17 11:23 WBC RBC Hgb Hct MCV MCHC RDW Plt Count MPV Neutrophils % Lymphocytes % Monocytes % Eosinophils % Basophils % Band Neutrophils Myelocytes Differential Comment Platelet Estimate Hypochromic-Microcytic Basophilic Stippling Anisocytosis Target Cells Sodium Potassium Chloride Carbon Dioxide Anion Gap BUN Creatinine POC Glucometer 129 Random Glucose Calcium Urine Color Urine Appearance Urine pH Ur Specific [place] Urine Protein Urine Glucose (UA) Urine Ketones Urine Blood Urine Nitrite Urine Bilirubin Urine Urobilinogen Ur Leukocyte Esterase Urine RBC Urine WBC Ur Epithelial Cells Hyaline Casts Urine Mucus Current Medications Generic Name Dose Route Start Last Admin Trade Name Freq PRN Reason Stop Dose Admin Albuterol Sulfate 1 amp 03/10/17 11:02 Ventolin 0.083% Nebulizer Soln - NEB Q4H PRN SHORT OF BREATH/WHEEZING Albuterol/Ipratropium 1 amp 03/10/17 15:30 03/11/17 11:30 Duoneb - NEB 1 amp QIDR ZACHARY Administration Amlodipine Besylate 5 mg 03/10/17 12:00 03/11/17 10:25 Norvasc - PO 5 mg DAILY ZACHARY Administration Ferrous Sulfate 325 mg 03/11/17 10:00 03/11/17 09:46 Feosol - PO 325 mg DAILY ZACHARY Administration Heparin Sodium (Porcine) 5,000 unit 03/10/17 22:00 03/11/17 09:45 Heparin - SQ 5,000 unit BID ZACHARY Administration Hydrochlorothiazide 25 mg 03/11/17 10:00 03/11/17 09:45 Hctz - PO 25 mg DAILY ZACHARY Administration Levofloxacin 100 mls @ 100 mls/hr 03/12/17 10:00 Levaquin 500 Mg Premixed Ivpb - IVPB DAILY ZACHARY Insulin Aspart 1 vial 03/10/17 16:30 03/11/17 11:47 Novolog Vial Sliding Scale - SQ Not Given ACHS [facility] Protocol Methylprednisolone Sodium Succinate 40 mg 03/10/17 18:00 03/11/17 09:44 Solu-Medrol - IVPB 40 mg Q8H-IV ZACHARY Administration Non-Formulary Medication 62.5 mcg 03/10/17 11:45 03/11/17 10:27 Umeclidinium [place] [Incruse Ellipta] IH Not Given DAILY ZACHARY Fluticasone/Salmeterol 1 puff 03/10/17 13:00 03/11/17 10:25 Advair 100mcg/50mcg - IH 1 puff BID ZACHARY Administration Assessment and Plan: 57 yr old female with a past history of COPD (on 2L O2 via nasal canula at home ) with frequent hospitalizations for exacerbations, asthma, HTN, arthritis, anxiety, former smoker (quit 2 years ago), previous substance use (alcohol and cocaine-quit 5 years) presented to the ER with SOB and grayish/green sputum of 4 days duration after leaving hospital AMA one night prior. Patient was admitted for management of acute exacerbation of COPD. 1. Acute exacerbation of COPD * CXR: No acute diease; bronchitic changes in lower lung lobes b/l; no changes since CXR 01-17-17 * Solu-medrol 40 mg IV Q8H started * Duo-Nebs QID and albuterol neb q4h prn * Advair 100-50 as patient had a reaction (throat swelling) to Symbicort in the past * Hold Incruse ellipta (home medication) * Maintain O2 at SPO2>90% * Levaquin 750 mg qd reduced to levaquin 500 mg qd (per pulmonology) continue for 7 days * Flu swab negative; will culture sputum * Patient should follow-up with pulmonology as an outpatient for PFTs 2. Proteinuria * UA- 2+ protein- possibly chronic kidney injury-Start on POORNIMA-inhibitor * Creatinine 1 at baseline * UA-1 + leukocyte esterase-get c/s; currently covered by Levaquin 500 mg qd 3. HTN * Continue HCTZ 25 mg QD (home med) * Hold Lopressor 50 mg BID (home med-potentially contributing to COPD exacerbation) * Add Norvasc 5 mg QD 4. Microcytic anemia * Hemoglobin 10.5 at baseline * Iron studies demonstrate low iron saturation (9%) * Continue ferrous sulfate 325 mg QD * Patient states she is not bleeding but should schedule a colonscopy as outpatient as she has not had one in the past 5. Right Hip Osteoarthritis * Following acute COPD exacerbation follow with orthopedist * Patient uses a cane and would like to explore getting a scoter * PT would be beneficial 6. Anxiety * Continue Hydroxyzine 25 mg QD (home medication) 7. Prophylaxis * DVT- Heparin 5000 units SQ TID * GI-None indicated 8. FEN * Diabetic diet due to prolonged steroid use 9. Dispo * Admitted until resolution of acute COPD exacerbation * When discharged home-continue to use 2 L O2 via nasal canula (maybe greater than 18 hrs. per day)
[2017-03-12] MEDS: methylPREDNISolone NA SUCC 40 MG/1 ML VIAL IVPB SCH ×3 (01:54→17:47)
[2017-03-12] MEDS: ALBUTEROL SO4 2.5/IPRATROPIUM 0.5 INH SOL 3 ML VIAL.NEB. NEB SCH ×4 (06:58→23:51)
[2017-03-12 08:14] LABS: MCHC 31.4 g/dl (32.0-36.0); MEAN CELL VOLUME 69.9 fl (80-96); MEAN PLT VOLUME 8.8 fl (7.5-11.1); PLATELET COUNT 188 K/MM3 (134-434); RDW 15.7 % (11.6-15.6); WHITE BLOOD COUNT 11.2 K/mm3 (4.0-10.0)
[2017-03-12 10:14] LABS: POLYCHROMASIA 1+
[2017-03-12 10:15] LABS: ANISOCYTOSIS 2+; MICROCYTOSIS 1+; TARGET CELLS 1+
[2017-03-12] MEDS: HYDROCHLOROTHIAZIDE 25 MG TABLET (FP) PO SCH (11:15)
[2017-03-12] MEDS: FERROUS SO4 325 MG TABLET (FP) PO SCH (11:15)
[2017-03-12] MEDS: FLUTICASONE/SALMETEROL 100 MCG/50 MCG DISKUS IH SCH ×2 (11:15→21:08)
[2017-03-12] MEDS: amLODIPine BESYLATE 5 MG TABLET (FP) PO SCH (11:15)
[2017-03-12] MEDS: HEPARIN NA (PORCINE) 5,000 UNITS/ML 1ML VIAL SQ SCH ×2 (11:16→21:08)
[2017-03-12] MEDS: LEVOFLOXACIN 500 MG IVPB 100 ML IVPB SCH (11:16)
--- NOTE | 2017-03-12 15:02 | PN ---
Progress Note (short form) - Note Progress Note: PULMONARY AWAKE/ALERT MINIMAL SUBJECTIVE IMPROVEMENT VSS/AFEBRILE ANICTERIC/POOR DENTITION B/L WHEEZE/RHONCHI S1S2 BS+ SOFT NO EDEMA/CALF TENDERNESS LABS/MEDS/NOTES/IMAGING REVIEWED Acute COPD Exacerbation Acute Bronchitis Bronchiectasis Emphysema HTN Chronic Hypoxic Respiratory Failure - IV medrol same - inhaled bronchodilators standing and PRN - continue antibiotics, - sputum culture - O2 to keep SPo2 >90% - DVT prophylaxsis Lamonte WARNER MD
--- NOTE | 2017-03-12 15:43 | PN ---
<Leigh Brian - Last Filed: 03/12/17 15:37> Physical Exam: SUBJECTIVE: Patient seen and examined at bed side this morning. Says the shortness of breath is getting better. Has cough with yellow productive sputum. Denies chest pain, palpitations, abdominal pain, nausea or vomiting. OBJECTIVE: Vital Signs Period Temp Pulse Resp BP Sys/Echevarria Pulse Ox Last 24 Hr 98.2 F-98.5 F 84-111 20-20 118-138/65-82 98-100 GENERAL: The patient is awake, alert, and fully oriented, in no acute distress, nasal canula in place. HEAD: Normal with no signs of trauma. EYES: EOM intact, no pallor or icterus. ENT: Ears normal, moist mucous membranes. NECK: Supple. LUNGS: Accessory muscle use +, Breath sounds equal, B/L decreased breath sounds , scattered wheezing but no crackles. HEART: Regular rate and rhythm, S1, S2 without murmur. ABDOMEN: Soft, nontender, nondistended, normoactive bowel sounds, no guarding, no rebound, no hepatosplenomegaly, no masses. EXTREMITIES: 2+ pulses, warm, well-perfused, no edema. NEUROLOGICAL: No facial droop, Bulk, tone-Normal. Cranial nerves II through XII grossly intact. Normal speech, gait not observed. PSYCH: Normal mood, normal affect. SKIN: Warm, dry, normal turgor, no rashes or lesions noted Laboratory Results - last 24 hr 03/11/17 03/12/17 16:31 06:00 WBC 11.2 H D RBC 4.72 Hgb 10.4 L Hct 33.0 MCV 69.9 L MCHC 31.4 L RDW 15.7 H Plt Count 188 MPV 8.8 Polychromasia 1+ Anisocytosis 2+ Microcytosis 1+ Target Cells 1+ POC Glucometer 131 Active Medications Generic Name Dose Route Start Last Admin Trade Name Freq PRN Reason Stop Dose Admin Albuterol Sulfate 1 amp 03/10/17 11:02 Ventolin 0.083% Nebulizer Soln - NEB Q4H PRN SHORT OF BREATH/WHEEZING Albuterol/Ipratropium 1 amp 03/10/17 15:30 03/12/17 12:00 Duoneb - NEB 1 amp QIDR ZACHARY Administration Amlodipine Besylate 5 mg 03/10/17 12:00 03/12/17 11:15 Norvasc - PO 5 mg DAILY ZACHARY Administration Ferrous Sulfate 325 mg 03/11/17 10:00 03/12/17 11:15 Feosol - PO 325 mg DAILY ZACHARY Administration Heparin Sodium (Porcine) 5,000 unit 03/10/17 22:00 03/12/17 11:16 Heparin - SQ 5,000 unit BID ZACHARY Administration Hydrochlorothiazide 25 mg 03/11/17 10:00 03/12/17 11:15 Hctz - PO 25 mg DAILY ZACHARY Administration Levofloxacin 100 mls @ 100 mls/hr 03/12/17 10:00 03/12/17 11:16 Levaquin 500 Mg Premixed Ivpb - IVPB 100 mls/hr DAILY ZACHARY Administration Methylprednisolone Sodium Succinate 40 mg 03/10/17 18:00 03/12/17 11:16 Solu-Medrol - IVPB 40 mg Q8H-IV ZACHARY Administration Non-Formulary Medication 62.5 mcg 03/10/17 11:45 03/11/17 10:27 Umeclidinium [place] [Incruse Ellipta] IH Not Given DAILY ZACHARY Fluticasone/Salmeterol 1 puff 03/10/17 13:00 03/12/17 11:15 Advair 100mcg/50mcg - IH 1 puff BID ZACHARY Administration ASSESSMENT/PLAN: Patient is a 57 year old Female with significant PMH of COPD (on 2L O2 at home) , asthma, HTN, anxiety, former smoker presents to ER with SOB for the last 2 days. Pt with multiple admissions in the past for COPD/Asthma exacerbation. Currently admitted for COPD/asthma exacerbation. # COPD Exacerbation Admitted in Med-Surg. Continue IV Levaquin 750mg daily (although the CXR is normal since patient has had multiple admission due to exacerbations) Solu-medrol 40mg IV Q8H Salmeterol/Fluticasone BID; Duoneb Q6H PRN Flu swab negative 03/09/17 Pulmonary consult appreciated. # Hypertension-controlled Continue HCTZ 25 mg PO Daily Amlodipine 5mg daily # Microcytic anemia most likely Iron deficiency anemia Hb-10.4/33 Continue Ferrous sulphate (takes at home) Iron studies 03/09/17: Iron 25; Iron saturation low, normal TIBC, Transferrin and Ferritin . Recommended patient for colonoscopy as outpatient # Prediabetic HbA1c 5.8 % (01/18/17), DC sliding scale. Diet and counseling # FEN Not on IV Fluids Electrolytes normal Diabetic Diet # Prophylaxis For DVT: On Heparin For GI: Not indicated # Code status: Full Code # Dispo: Admitted in Med-Surg. Duration of stay unknown. Confirmed medications with the pharmacy Illness, Investigation and Plan of care explained to the patient. She verbalized understanding. Case seen and discussed with Dr. Lazo. Visit type - Emergency Visit Emergency Visit: Yes ED Registration Date: 03/11/17 Care time: The patient presented to the Emergency Department on the above date and was hospitalized for further evaluation of their emergent condition. - New Patient This patient is new to me today: No - Critical Care Critical Care patient: No - Discharge Referral Referred to [facility] No <Dayton Lazo - Last Filed: 03/12/17 18:31> Physical Exam: SUBJECTIVE: Patient seen and examined OBJECTIVE: Vital Signs Period Temp Pulse Resp BP Sys/Echevarria Pulse Ox Last 24 Hr 98.2 F-98.5 F 84-101 20-20 118-138/65-82 98-100 C Laboratory Results - last 24 hr 03/12/17 03/12/17 06:00 17:03 WBC 11.2 H D RBC 4.72 Hgb 10.4 L Hct 33.0 MCV 69.9 L MCHC 31.4 L RDW 15.7 H Plt Count 188 MPV 8.8 Polychromasia 1+ Anisocytosis 2+ Microcytosis 1+ Target Cells 1+ POC Glucometer 152 Active Medications Generic Name Dose Route Start Last Admin Trade Name Freq PRN Reason Stop Dose Admin Aclidinium [place] 1 puff 03/13/17 10:00 Tudorza - IH DAILY ZACHARY Albuterol Sulfate 1 amp 03/10/17 11:02 Ventolin 0.083% Nebulizer Soln - NEB Q4H PRN SHORT OF BREATH/WHEEZING Albuterol/Ipratropium 1 amp 03/10/17 15:30 03/12/17 17:35 Duoneb - NEB 1 amp QIDR ZACHARY Administration Amlodipine Besylate 5 mg 03/10/17 12:00 03/12/17 11:15 Norvasc - PO 5 mg DAILY ZACHARY Administration Ferrous Sulfate 325 mg 03/11/17 10:00 03/12/17 11:15 Feosol - PO 325 mg DAILY ZACHARY Administration Heparin Sodium (Porcine) 5,000 unit 03/10/17 22:00 03/12/17 11:16 Heparin - SQ 5,000 unit BID ZACHARY Administration Hydrochlorothiazide 25 mg 03/11/17 10:00 03/12/17 11:15 Hctz - PO 25 mg DAILY ZACHARY Administration Levofloxacin 100 mls @ 100 mls/hr 03/12/17 10:00 03/12/17 11:16 Levaquin 500 Mg Premixed Ivpb - IVPB 100 mls/hr DAILY ZACHARY Administration Methylprednisolone Sodium Succinate 40 mg 03/10/17 18:00 03/12/17 17:47 Solu-Medrol - IVPB 40 mg Q8H-IV ZACHARY Administration Fluticasone/Salmeterol 1 puff 03/10/17 13:00 03/12/17 11:15 Advair 100mcg/50mcg - IH 1 puff BID ZACHARY Administration ASSESSMENT/PLAN: Correction: On levaquin 500mg IV not 750mg daily
[2017-03-12] MEDS: PATIENT'S OWN MEDICATION (NON-FORMULARY) (Umeclidinium Bromide [Incruse Ellipta] 62.5 MCG) IH SCH (16:38)
--- NOTE | 2017-03-12 18:27 | PN ---
Teaching Attending Note Name of Resident: Leigh Brian ATTENDING PHYSICIAN STATEMENT I saw and evaluated the patient. I reviewed the resident's note and discussed the case with the resident. I agree with the resident's findings and plan as documented. SUBJECTIVE: Patient looks better but continues wheezing OBJECTIVE: Vital Signs Temperature 98.3 F 03/12/17 13:37 Pulse Rate 101 H 03/12/17 13:37 Respiratory Rate 20 03/12/17 13:37 Blood Pressure 138/82 03/12/17 13:37 O2 Sat by Pulse Oximetry (%) 98 03/12/17 12:00 CBCD WBC 11.2 K/mm3 (4.0-10.0) H D 03/12/17 06:00 RBC 4.72 M/mm3 (3.60-5.2) 03/12/17 06:00 Hgb 10.4 GM/dL (10.7-15.3) L 03/12/17 06:00 Hct 33.0 % (32.4-45.2) 03/12/17 06:00 MCV 69.9 fl (80-96) L 03/12/17 06:00 MCHC 31.4 g/dl (32.0-36.0) L 03/12/17 06:00 RDW 15.7 % (11.6-15.6) H 03/12/17 06:00 Plt Count 188 K/MM3 (134-434) 03/12/17 06:00 MPV 8.8 fl (7.5-11.1) 03/12/17 06:00 CMP Sodium 141 mmol/L (136-145) 03/11/17 06:00 Potassium 4.5 mmol/L (3.5-5.1) 03/11/17 06:00 Chloride 102 mmol/L (98-107) 03/11/17 06:00 Carbon Dioxide 29 mmol/L (21-32) 03/11/17 06:00 Anion Gap 10 (8-16) 03/11/17 06:00 BUN 24 mg/dL (7-18) H 03/11/17 06:00 Creatinine 1.0 mg/dL (0.55-1.02) 03/11/17 06:00 Random Glucose 139 mg/dL (74-106) H D 03/11/17 06:00 Calcium 9.4 mg/dL (8.5-10.1) 03/11/17 06:00 Current Medications Generic Name Dose Route Start Last Admin Trade Name Freq PRN Reason Stop Dose Admin Aclidinium [place] 1 puff 03/13/17 10:00 Tudorza - IH DAILY ZACHARY Albuterol Sulfate 1 amp 03/10/17 11:02 Ventolin 0.083% Nebulizer Soln - NEB Q4H PRN SHORT OF BREATH/WHEEZING Albuterol/Ipratropium 1 amp 03/10/17 15:30 03/12/17 17:35 Duoneb - NEB 1 amp QIDR ZACHARY Administration Amlodipine Besylate 5 mg 03/10/17 12:00 03/12/17 11:15 Norvasc - PO 5 mg DAILY ZACHARY Administration Ferrous Sulfate 325 mg 03/11/17 10:00 03/12/17 11:15 Feosol - PO 325 mg DAILY ZACHARY Administration Heparin Sodium (Porcine) 5,000 unit 03/10/17 22:00 03/12/17 11:16 Heparin - SQ 5,000 unit BID ZACHARY Administration Hydrochlorothiazide 25 mg 03/11/17 10:00 03/12/17 11:15 Hctz - PO 25 mg DAILY ZACHARY Administration Levofloxacin 100 mls @ 100 mls/hr 03/12/17 10:00 03/12/17 11:16 Levaquin 500 Mg Premixed Ivpb - IVPB 100 mls/hr DAILY ZACHARY Administration Methylprednisolone Sodium Succinate 40 mg 03/10/17 18:00 03/12/17 17:47 Solu-Medrol - IVPB 40 mg Q8H-IV ZACHARY Administration Fluticasone/Salmeterol 1 puff 03/10/17 13:00 03/12/17 11:15 Advair 100mcg/50mcg - IH 1 puff BID ZACHARY Administration Home Medications Medication Instructions Recorded Albuterol 0.083% Nebulizer [place] 1 amp NEB Q4H PRN #0 amp 09/25/16 [Ventolin 0.083% Nebulizer Soln -] Hydrochlorothiazide [Hctz -] 25 mg PO DAILY tablet 09/25/16 Albuterol 2.5/Ipratropium 0.5 1 amp NEB QIDR amp 03/09/17 [Duoneb -] Ferrous Sulfate [Feosol] 325 mg PO DAILY #30 cap 03/09/17 Metoprolol Tartrate [Lopressor] 50 mg PO BID 03/09/17 Hydroxyzine HCl 0 mg PO DAILY PRN 03/10/17 Umeclidinium [place] [Incruse 62.5 mcg IH DAILY 03/10/17 Ellipta] PE: per resident's note ASSESSMENT AND PLAN: Patient is a 55 year old female with a history of COPD/bronchiectasis, a long history of cigarette smoking, polysubstance abuse, and HTN .The patient presented to the ED with SOB , and was found to have acute COPD exacerbation. # Acute COPD exacerbation on Levaquin IV continue, will increase IV Solumedrol to 60mg TID, and Duo-Nebs , on Advair continue, pulmonary consult appreciated. # Microcytic anemia ; Fe studies ordered. no evidence of bleed. colonoscopy as out pt # HTN Controlled continue HCTZ 25mg daily , start Norvasc 5mg daily DVT px: heparin SQ bid Code Status- FULL CODE
[2017-03-12] MEDS ORDERED: PT OWN MED DRAWER 7, Y5N ONE (20:37)
[2017-03-13] MEDS: methylPREDNISolone NA SUCC 40 MG/1 ML VIAL IVPB SCH ×3 (01:14→17:09)
[2017-03-13] MEDS: ALBUTEROL SO4 2.5/IPRATROPIUM 0.5 INH SOL 3 ML VIAL.NEB. NEB SCH ×4 (06:27→23:12)
[2017-03-13 07:29] LABS: MEAN CELL VOLUME 70.8 fl (80-96); PLATELET COUNT 190 K/MM3 (134-434); RDW 16.2 % (11.6-15.6); WHITE BLOOD COUNT 12.1 K/mm3 (4.0-10.0)
[2017-03-13 08:23] LABS: ANION GAP 7 (8-16); CO2 31 mmol/L (21-32); CREATININE 1.1 mg/dL (0.55-1.02); GLUCOSE,RANDOM 126 mg/dL (74-106); MAGNESIUM 2.1 mg/dL (1.8-2.4)
[2017-03-13] MEDS ORDERED: PT OWN MED DRAWER 7, Y5N ONE ×2 (09:43→11:08)
[2017-03-13] MEDS: amLODIPine BESYLATE 5 MG TABLET (FP) PO SCH (09:47)
[2017-03-13] MEDS: LEVOFLOXACIN 500 MG IVPB 100 ML IVPB SCH (09:47)
[2017-03-13] MEDS: FERROUS SO4 325 MG TABLET (FP) PO SCH (09:48)
[2017-03-13] MEDS: HYDROCHLOROTHIAZIDE 25 MG TABLET (FP) PO SCH (09:48)
[2017-03-13] MEDS: FLUTICASONE/SALMETEROL 100 MCG/50 MCG DISKUS IH SCH ×2 (09:48→21:34)
[2017-03-13] MEDS: HEPARIN NA (PORCINE) 5,000 UNITS/ML 1ML VIAL SQ SCH ×2 (09:48→21:33)
[2017-03-13] MEDS ORDERED: ACLIDINIUM BROMIDE 400 MCG/INH AERO.POWD IH SCH ×2 (10:00→22:00)
--- NOTE | 2017-03-13 11:37 | PN ---
Progress Note (short form) - Note Progress Note: Breathing and cough seem a little better today. Still with HILL, but better. Intake & Output 03/10/17 03/11/17 03/12/17 03/13/17 23:59 23:59 23:59 23:59 Intake Total 0 1020 1320 Balance 0 1020 1320 Weight 152 lb 12.8 oz Last Vital Signs Temp Pulse Resp BP Pulse Ox 97.7 F 89 20 135/80 99 03/12/17 22:00 03/12/17 22:00 03/12/17 22:00 03/12/17 22:00 03/13/17 07:00 Active Medications Aclidinium [place] (Tudorza -) 1 puff IH BID [facility] Albuterol Sulfate (Ventolin 0.083% Nebulizer Soln -) 1 amp NEB Q4H PRN PRN Reason: SHORT OF BREATH/WHEEZING Albuterol/Ipratropium (Duoneb -) 1 amp NEB QIDR [facility] Last Admin: 03/13/17 06:27 Dose: 1 amp Amlodipine Besylate (Norvasc -) 5 mg PO DAILY [facility] Last Admin: 03/13/17 09:47 Dose: 5 mg Ferrous Sulfate (Feosol -) 325 mg PO DAILY [facility] Last Admin: 03/13/17 09:48 Dose: 325 mg Heparin Sodium (Porcine) (Heparin -) 5,000 unit SQ BID [facility] Last Admin: 03/13/17 09:48 Dose: 5,000 unit Hydrochlorothiazide (Hctz -) 25 mg PO DAILY [facility] Last Admin: 03/13/17 09:48 Dose: 25 mg Levofloxacin (Levaquin 500 Mg Premixed Ivpb -) 100 mls @ 100 mls/hr IVPB DAILY [facility] Last Admin: 03/13/17 09:47 Dose: 100 mls/hr Methylprednisolone Sodium Succinate (Solu-Medrol -) 40 mg IVPB Q8H-IV [facility] Last Admin: 03/13/17 09:48 Dose: 40 mg Fluticasone/Salmeterol (Advair 100mcg/50mcg -) 1 puff IH BID [facility] Last Admin: 03/13/17 09:48 Dose: 1 puff Constitutional: Yes: NAD Eyes: Yes: Conjunctiva Clear, EOM Intact HENT: Yes: Atraumatic, Normocephalic Neck: Yes: Supple, Trachea Midline Cardiovascular: Yes: Regular Rate and Rhythm Respiratory: Yes: bilateral scattered Rhonchi, Minimal Expiratory Wheeze ...Clubbing: No Gastrointestinal: Yes: Normal Bowel Sounds, Soft. No: Tenderness Edema: No Neurological: Yes: Alert, Oriented Laboratory Results - last 24 hr 03/12/17 03/13/17 03/13/17 17:03 06:00 06:00 WBC 12.1 H RBC 4.79 Hgb 10.5 L Hct 33.9 MCV 70.8 L MCHC 31.0 L RDW 16.2 H Plt Count 190 MPV 9.0 Sodium 139 Potassium 4.3 Chloride 101 Carbon Dioxide 31 Anion Gap 7 L BUN 36 H D Creatinine 1.1 H POC Glucometer 152 Random Glucose 126 H Calcium 9.0 Magnesium 2.1 03/13/17 10:57 WBC RBC Hgb Hct MCV MCHC RDW Plt Count MPV Sodium Potassium Chloride Carbon Dioxide Anion Gap BUN Creatinine POC Glucometer 160 Random Glucose Calcium Magnesium Problem List - Problems (1) COPD exacerbation Code(s): J44.1 - CHRONIC OBSTRUCTIVE PULMONARY DISEASE W (ACUTE) EXACERBATION (2) Acute bronchitis Code(s): J20.9 - ACUTE BRONCHITIS, UNSPECIFIED Qualifiers: Bronchitis organism: unspecified organism Qualified Code(s): J20.9 - Acute bronchitis, unspecified (3) Emphysema lung Code(s): J43.9 - EMPHYSEMA, UNSPECIFIED (4) Bronchiectasis Code(s): J47.9 - BRONCHIECTASIS, UNCOMPLICATED (5) Chronic respiratory failure with hypoxia Code(s): J96.11 - CHRONIC RESPIRATORY FAILURE WITH HYPOXIA (6) Hypertension Code(s): I10 - ESSENTIAL (PRIMARY) HYPERTENSION Qualifiers: Hypertension type: essential hypertension Qualified Code(s): I10 - Essential (primary) hypertension Assessment/Plan Acute COPD Exacerbation Acute Bronchitis Bronchiectasis Emphysema HTN Chronic Hypoxic Respiratory Failure - Taper IV medrol - inhaled bronchodilators standing and PRN - Noted Levaquin _. consider just a short course or D/C - Tudorza changed to BID - On discharge Advair should be the 250/50 dosing - O2 to keep SPo2 >90% - DVT prophylaxis Dr Carty
--- NOTE | 2017-03-13 20:19 | PN ---
Physical Exam: SUBJECTIVE: Patient seen and examined Better than yesterday but continues to wheeze. OBJECTIVE: Vital Signs Period Temp Pulse Resp BP Sys/Echevarria Pulse Ox Last 24 Hr 97.7 F-98.7 F 87-112 20-20 127-135/72-80 92-100 GENERAL: The patient is awake, alert, and fully oriented, in no acute distress. HEAD: Normal with no signs of trauma. EYES: PERRL, extraocular movements intact, sclera anicteric, conjunctiva clear. ENT: Ears normal, oropharynx clear without exudates, moist mucous membranes. NECK: Trachea midline, full range of motion, supple. LUNGS:Decreased BS BL , positive for rhonchi BL, no rales no accessory muscle use. HEART: Regular rate and rhythm, S1, S2 without murmur, rub or gallop. ABDOMEN: Soft, nontender, nondistended, normoactive bowel sounds, no guarding, no rebound, no hepatosplenomegaly, no masses. EXTREMITIES: 2+ pulses, warm, well-perfused, no edema. NEUROLOGICAL: Cranial nerves II through XII grossly intact. Normal speech. PSYCH: Normal mood, normal affect. SKIN: Warm, dry, normal turgor, no rashes or lesions noted Laboratory Results - last 24 hr 03/13/17 03/13/17 03/13/17 06:00 06:00 10:57 WBC 12.1 H RBC 4.79 Hgb 10.5 L Hct 33.9 MCV 70.8 L MCHC 31.0 L RDW 16.2 H Plt Count 190 MPV 9.0 Sodium 139 Potassium 4.3 Chloride 101 Carbon Dioxide 31 Anion Gap 7 L BUN 36 H D Creatinine 1.1 H POC Glucometer 160 Random Glucose 126 H Calcium 9.0 Magnesium 2.1 03/13/17 15:59 WBC RBC Hgb Hct MCV MCHC RDW Plt Count MPV Sodium Potassium Chloride Carbon Dioxide Anion Gap BUN Creatinine POC Glucometer 111 Random Glucose Calcium Magnesium Active Medications Generic Name Dose Route Start Last Admin Trade Name Freq PRN Reason Stop Dose Admin Albuterol Sulfate 1 amp 03/10/17 11:02 Ventolin 0.083% Nebulizer Soln - NEB Q4H PRN SHORT OF BREATH/WHEEZING Albuterol/Ipratropium 1 amp 03/10/17 15:30 03/13/17 17:58 Duoneb - NEB 1 amp QIDR ZACHARY Administration Amlodipine Besylate 5 mg 03/10/17 12:00 03/13/17 09:47 Norvasc - PO 5 mg DAILY ZACHARY Administration Ferrous Sulfate 325 mg 03/11/17 10:00 03/13/17 09:48 Feosol - PO 325 mg DAILY ZACHARY Administration Heparin Sodium (Porcine) 5,000 unit 03/10/17 22:00 03/13/17 09:48 Heparin - SQ 5,000 unit BID ZACHARY Administration Hydrochlorothiazide 25 mg 03/11/17 10:00 03/13/17 09:48 Hctz - PO 25 mg DAILY ZACHARY Administration Levofloxacin 100 mls @ 100 mls/hr 03/12/17 10:00 03/13/17 09:47 Levaquin 500 Mg Premixed Ivpb - IVPB 100 mls/hr DAILY ZACHARY Administration Methylprednisolone Sodium Succinate 40 mg 03/10/17 18:00 03/13/17 17:09 Solu-Medrol - IVPB 40 mg Q8H-IV ZACHARY Administration Fluticasone/Salmeterol 1 puff 03/10/17 13:00 03/13/17 09:48 Advair 100mcg/50mcg - IH 1 puff BID ZACHARY Administration ASSESSMENT/PLAN: Patient is a 55 year old female with a history of COPD/bronchiectasis, a long history of cigarette smoking, polysubstance abuse, and HTN .The patient presented to the ED with SOB , and was found to have acute COPD exacerbation. # Acute COPD exacerbation on Levaquin IV continue, and IV Solumedrol to 60mg TID continue for another day then will start to taper the dose , and Duo-Nebs , on Advair continue, pulmonary consult appreciated. # Microcytic anemia ; Fe studies ordered. no evidence of bleed. colonoscopy as out pt # HTN Controlled continue HCTZ 25mg daily , start Norvasc 5mg daily DVT px: heparin SQ bid Code Status- FULL CODE Visit type - Emergency Visit Emergency Visit: Yes ED Registration Date: 03/11/17 Care time: The patient presented to the Emergency Department on the above date and was hospitalized for further evaluation of their emergent condition. - New Patient This patient is new to me today: Yes Date on this admission: 03/13/17 - Critical Care Critical Care patient: No
[2017-03-14] MEDS: methylPREDNISolone NA SUCC 40 MG/1 ML VIAL IVPB SCH ×2 (01:30→09:25)
[2017-03-14] MEDS: ALBUTEROL SO4 2.5/IPRATROPIUM 0.5 INH SOL 3 ML VIAL.NEB. NEB SCH ×4 (06:27→23:20)
[2017-03-14] MEDS: amLODIPine BESYLATE 5 MG TABLET (FP) PO SCH (09:25)
[2017-03-14] MEDS: LEVOFLOXACIN 500 MG IVPB 100 ML IVPB SCH (09:25)
[2017-03-14] MEDS: HEPARIN NA (PORCINE) 5,000 UNITS/ML 1ML VIAL SQ SCH ×2 (09:26→21:34)
[2017-03-14] MEDS: HYDROCHLOROTHIAZIDE 25 MG TABLET (FP) PO SCH (09:26)
[2017-03-14] MEDS: FERROUS SO4 325 MG TABLET (FP) PO SCH (09:26)
[2017-03-14] MEDS: FLUTICASONE/SALMETEROL 100 MCG/50 MCG DISKUS IH SCH ×2 (09:34→21:33)
--- NOTE | 2017-03-14 12:42 | PN ---
Progress Note (short form) - Note Progress Note: OOB To chair. Reports that breathing is much better today. HILL is improving. Intake & Output 03/11/17 03/12/17 03/13/17 03/14/17 23:59 23:59 23:59 23:59 Intake Total 1020 1320 320 Balance 1020 1320 320 Last Vital Signs Temp Pulse Resp BP Pulse Ox 98.3 F 85 20 129/75 98 03/14/17 05:39 03/14/17 07:56 03/14/17 05:39 03/14/17 05:39 03/14/17 07:56 Active Medications Albuterol Sulfate (Ventolin 0.083% Nebulizer Soln -) 1 amp NEB Q4H PRN PRN Reason: SHORT OF BREATH/WHEEZING Albuterol/Ipratropium (Duoneb -) 1 amp NEB QIDR [facility] Last Admin: 03/14/17 06:27 Dose: 1 amp Amlodipine Besylate (Norvasc -) 5 mg PO DAILY [facility] Last Admin: 03/14/17 09:25 Dose: 5 mg Ferrous Sulfate (Feosol -) 325 mg PO DAILY [facility] Last Admin: 03/14/17 09:26 Dose: 325 mg Heparin Sodium (Porcine) (Heparin -) 5,000 unit SQ BID [facility] Last Admin: 03/14/17 09:26 Dose: Not Given Hydrochlorothiazide (Hctz -) 25 mg PO DAILY [facility] Last Admin: 03/14/17 09:26 Dose: 25 mg Levofloxacin (Levaquin 500 Mg Premixed Ivpb -) 100 mls @ 100 mls/hr IVPB DAILY [facility] Last Admin: 03/14/17 09:25 Dose: 100 mls/hr Methylprednisolone Sodium Succinate (Solu-Medrol -) 40 mg IVPB Q8H-IV [facility] Last Admin: 03/14/17 09:25 Dose: 40 mg Fluticasone/Salmeterol (Advair 100mcg/50mcg -) 1 puff IH BID [facility] Last Admin: 03/14/17 09:34 Dose: 1 puff Constitutional: Yes: NAD Eyes: Yes: Conjunctiva Clear, EOM Intact HENT: Yes: Atraumatic, Normocephalic Neck: Yes: Supple, Trachea Midline Cardiovascular: Yes: Regular Rate and Rhythm Respiratory: Yes: bilateral scattered Rhonchi, Minimal Expiratory Wheeze ...Clubbing: No Gastrointestinal: Yes: Normal Bowel Sounds, Soft. No: Tenderness Edema: No Neurological: Yes: Alert, Oriented Laboratory Results - last 24 hr 03/13/17 03/13/17 03/14/17 15:59 21:55 06:11 POC Glucometer 111 165 133 03/14/17 11:31 POC Glucometer 193 Problem List - Problems (1) COPD exacerbation Code(s): J44.1 - CHRONIC OBSTRUCTIVE PULMONARY DISEASE W (ACUTE) EXACERBATION (2) Acute bronchitis Code(s): J20.9 - ACUTE BRONCHITIS, UNSPECIFIED Qualifiers: Bronchitis organism: unspecified organism Qualified Code(s): J20.9 - Acute bronchitis, unspecified (3) Emphysema lung Code(s): J43.9 - EMPHYSEMA, UNSPECIFIED (4) Bronchiectasis Code(s): J47.9 - BRONCHIECTASIS, UNCOMPLICATED (5) Chronic respiratory failure with hypoxia Code(s): J96.11 - CHRONIC RESPIRATORY FAILURE WITH HYPOXIA (6) Hypertension Code(s): I10 - ESSENTIAL (PRIMARY) HYPERTENSION Qualifiers: Hypertension type: essential hypertension Qualified Code(s): I10 - Essential (primary) hypertension Assessment/Plan Acute COPD Exacerbation Acute Bronchitis Bronchiectasis Emphysema HTN Chronic Hypoxic Respiratory Failure - Change to Prednisone - inhaled bronchodilators standing and PRN - Noted Levaquin -> consider just a short course or D/C - Tudorza BID - On discharge Advair should be the 250/50 dosing - O2 to keep SPo2 >90% - DVT prophylaxis Dr Carty
[2017-03-14] MEDS ORDERED: predniSONE 20 MG TABLET (UD) PO SCH (12:45)
--- NOTE | 2017-03-14 15:38 | PN ---
Teaching Attending Note Name of Resident: Leigh Brian ATTENDING PHYSICIAN STATEMENT I saw and evaluated the patient. I reviewed the resident's note and discussed the case with the resident. I agree with the resident's findings and plan as documented. SUBJECTIVE: Continues to have wheezing, still not feeling well. OBJECTIVE: Vital Signs Temperature 98.3 F 03/14/17 05:39 Pulse Rate 85 03/14/17 07:56 Respiratory Rate 20 03/14/17 05:39 Blood Pressure 129/75 03/14/17 05:39 O2 Sat by Pulse Oximetry (%) 98 03/14/17 07:56 CBCD WBC 12.1 K/mm3 (4.0-10.0) H 03/13/17 06:00 RBC 4.79 M/mm3 (3.60-5.2) 03/13/17 06:00 Hgb 10.5 GM/dL (10.7-15.3) L 03/13/17 06:00 Hct 33.9 % (32.4-45.2) 03/13/17 06:00 MCV 70.8 fl (80-96) L 03/13/17 06:00 MCHC 31.0 g/dl (32.0-36.0) L 03/13/17 06:00 RDW 16.2 % (11.6-15.6) H 03/13/17 06:00 Plt Count 190 K/MM3 (134-434) 03/13/17 06:00 MPV 9.0 fl (7.5-11.1) 03/13/17 06:00 CMP Sodium 139 mmol/L (136-145) 03/13/17 06:00 Potassium 4.3 mmol/L (3.5-5.1) 03/13/17 06:00 Chloride 101 mmol/L (98-107) 03/13/17 06:00 Carbon Dioxide 31 mmol/L (21-32) 03/13/17 06:00 Anion Gap 7 (8-16) L 03/13/17 06:00 BUN 36 mg/dL (7-18) H D 03/13/17 06:00 Creatinine 1.1 mg/dL (0.55-1.02) H 03/13/17 06:00 Random Glucose 126 mg/dL (74-106) H 03/13/17 06:00 Calcium 9.0 mg/dL (8.5-10.1) 03/13/17 06:00 Current Medications Generic Name Dose Route Start Last Admin Trade Name Andrea PRN Reason Stop Dose Admin Albuterol Sulfate 1 amp 03/10/17 11:02 Ventolin 0.083% Nebulizer Soln - NEB Q4H PRN SHORT OF BREATH/WHEEZING Albuterol/Ipratropium 1 amp 03/10/17 15:30 03/14/17 11:10 Duoneb - NEB 1 amp QIDR ZACHARY Administration Amlodipine Besylate 5 mg 03/10/17 12:00 03/14/17 09:25 Norvasc - PO 5 mg DAILY [facility] Administration Ferrous Sulfate 325 mg 03/11/17 10:00 03/14/17 09:26 Feosol - PO 325 mg DAILY [facility] Administration Heparin Sodium (Porcine) 5,000 unit 03/10/17 22:00 03/14/17 09:26 Heparin - SQ Not Given BID [facility] Hydrochlorothiazide 25 mg 03/11/17 10:00 03/14/17 09:26 Hctz - PO 25 mg DAILY [facility] Administration Levofloxacin 100 mls @ 100 mls/hr 03/12/17 10:00 03/14/17 09:25 Levaquin 500 Mg Premixed Ivpb - IVPB 100 mls/hr DAILY [facility] Administration Prednisone 30 mg 03/14/17 22:00 Deltasone - PO BID [facility] Fluticasone/Salmeterol 1 puff 03/10/17 13:00 03/14/17 09:34 Advair 100mcg/50mcg - IH 1 puff BID [facility] Administration Home Medications Medication Instructions Recorded Albuterol 0.083% Nebulizer [place] 1 amp NEB Q4H PRN #0 amp 09/25/16 [Ventolin 0.083% Nebulizer Soln -] Hydrochlorothiazide [Hctz -] 25 mg PO DAILY tablet 09/25/16 Albuterol 2.5/Ipratropium 0.5 1 amp NEB QIDR amp 03/09/17 [Duoneb -] Ferrous Sulfate [Feosol] 325 mg PO DAILY #30 cap 03/09/17 Metoprolol Tartrate [Lopressor] 50 mg PO BID 03/09/17 Hydroxyzine HCl 0 mg PO DAILY PRN 03/10/17 Umeclidinium [place] [Incruse 62.5 mcg IH DAILY 03/10/17 Ellipta] PE: per resident's note ASSESSMENT AND PLAN: Patient is a 55 year old female with a history of COPD/bronchiectasis, a long history of cigarette smoking, polysubstance abuse, and HTN .The patient presented to the ED with SOB , and was found to have acute COPD exacerbation. # Acute COPD exacerbation on Levaquin IV continue, on prednisone 30mg po bid now , s/p IV Solumedrol to 60mg . continue Duo-Nebs , on Advair ,pulmonary consult appreciated. # Microcytic anemia ; Fe studies pending. no evidence of bleed. colonoscopy as outpatient. # HTN Controlled continue HCTZ 25mg daily , start Norvasc 5mg daily DVT px: heparin SQ bid Code Status- FULL CODE
--- NOTE | 2017-03-14 15:38 | PN ---
Physical Exam: SUBJECTIVE: Patient seen and examined at bed side this morning. Says the shortness of breath is getting better. Is wheezing less than yesterday. Denies chest pain, palpitations, abdominal pain, nausea or vomiting. OBJECTIVE: Vital Signs Period Temp Pulse Resp BP Sys/Echevarria Pulse Ox Last 24 Hr 97.8 F-98.7 F 83-93 20-20 121-130/75-79 98-99 GENERAL: The patient is awake, alert, and fully oriented, in no acute distress, nasal canula in place. HEAD: Normal with no signs of trauma. EYES: EOM intact, no pallor or icterus. ENT: Ears normal, moist mucous membranes. NECK: Supple. LUNGS: Accessory muscle use +, Breath sounds equal, B/L decreased breath sounds , scattered wheezing but no crackles. HEART: Regular rate and rhythm, S1, S2 without murmur. ABDOMEN: Soft, nontender, nondistended, normoactive bowel sounds, no guarding, no rebound, no hepatosplenomegaly, no masses. EXTREMITIES: 2+ pulses, warm, well-perfused, no edema. NEUROLOGICAL: No facial droop, Bulk, tone-Normal. Cranial nerves II through XII grossly intact. Normal speech, gait not observed. PSYCH: Normal mood, normal affect. SKIN: Warm, dry, normal turgor, no rashes or lesions noted Laboratory Results - last 24 hr 03/13/17 03/13/17 03/14/17 15:59 21:55 06:11 POC Glucometer 111 165 133 03/14/17 11:31 POC Glucometer 193 Active Medications Generic Name Dose Route Start Last Admin Trade Name Andrea PRN Reason Stop Dose Admin Albuterol Sulfate 1 amp 03/10/17 11:02 Ventolin 0.083% Nebulizer Soln - NEB Q4H PRN SHORT OF BREATH/WHEEZING Albuterol/Ipratropium 1 amp 03/10/17 15:30 03/14/17 11:10 Duoneb - NEB 1 amp QIDR ZACHARY Administration Amlodipine Besylate 5 mg 03/10/17 12:00 03/14/17 09:25 Norvasc - PO 5 mg DAILY ZACHARY Administration Ferrous Sulfate 325 mg 03/11/17 10:00 03/14/17 09:26 Feosol - PO 325 mg DAILY ZACHARY Administration Heparin Sodium (Porcine) 5,000 unit 03/10/17 22:00 03/14/17 09:26 Heparin - SQ Not Given BID ZACHARY Hydrochlorothiazide 25 mg 03/11/17 10:00 03/14/17 09:26 Hctz - PO 25 mg DAILY ZACHARY Administration Levofloxacin 100 mls @ 100 mls/hr 03/12/17 10:00 03/14/17 09:25 Levaquin 500 Mg Premixed Ivpb - IVPB 100 mls/hr DAILY ZACHARY Administration Prednisone 30 mg 03/14/17 22:00 Deltasone - PO BID ZACHARY Fluticasone/Salmeterol 1 puff 03/10/17 13:00 03/14/17 09:34 Advair 100mcg/50mcg - IH 1 puff BID ZACHARY Administration ASSESSMENT/PLAN: Patient is a 57 year old Female with significant PMH of COPD (on 2L O2 at home) , asthma, HTN, anxiety, former smoker presents to ER with SOB for the last 2 days. Pt with multiple admissions in the past for COPD/Asthma exacerbation. Currently admitted for COPD/asthma exacerbation. # COPD Exacerbation Admitted in Med-Surg. Continue IV Levaquin 750mg daily Day 3 (but is actually Day 5 if we count from the day she was admitted before she signed AMA) Predinisone 30mg PO BID Salmeterol/Fluticasone BID; Duoneb Q6H PRN # Hypertension-controlled Continue HCTZ 25 mg PO Daily Amlodipine 5mg daily # Microcytic anemia most likely Iron deficiency anemia Continue Ferrous sulphate (takes at home) Iron studies 03/09/17: Iron 25; Iron saturation low, normal TIBC, Transferrin and Ferritin . Recommended patient for colonoscopy as outpatient # Prediabetic HbA1c 5.8 % (01/18/17) Diet and counseling # FEN Not on IV Fluids Electrolytes normal Diabetic Diet # Prophylaxis For DVT: On Heparin For GI: Not indicated # Code status: Full Code # Dispo: Admitted in Med-Surg. Possible discharge tomorrow. Confirmed medications with the pharmacy Illness, Investigation and Plan of care explained to the patient. She verbalized understanding. Case seen and discussed with Dr. Lazo. Visit type - Emergency Visit Emergency Visit: Yes ED Registration Date: 03/11/17 Care time: The patient presented to the Emergency Department on the above date and was hospitalized for further evaluation of their emergent condition. - New Patient This patient is new to me today: No - Critical Care Critical Care patient: No - Discharge Referral Referred to [facility] Med P.C.: No
[2017-03-14] MEDS ORDERED: PT OWN MED DRAWER 7, Y5N ONE (20:30)
[2017-03-14] MEDS: predniSONE 20 MG TABLET (UD) PO SCH (21:34)
[2017-03-14] MEDS ORDERED: MAG HYDROX/AL HYDROX/SIMETH 30 ML UNIT-DOSE CUP PO ONE (23:00)
[2017-03-15] MEDS: ALBUTEROL SO4 2.5/IPRATROPIUM 0.5 INH SOL 3 ML VIAL.NEB. NEB SCH ×2 (06:33→11:11)
[2017-03-15] MEDS ORDERED: PT OWN MED DRAWER 7, Y5N ONE ×2 (07:04→09:23)
[2017-03-15 07:42] LABS: ANION GAP 9 (8-16); CALCIUM 8.5 mg/dL (8.5-10.1); CO2 32 mmol/L (21-32); CREATININE 1.2 mg/dL (0.55-1.02); GLUCOSE,RANDOM 151 mg/dL (74-106)
[2017-03-15 08:57] LABS: MCH 22.4 pg (25.7-33.7); MCHC 32.3 g/dl (32.0-36.0); MEAN CELL VOLUME 69.4 fl (80-96); MEAN PLT VOLUME 9.4 fl (7.5-11.1); WHITE BLOOD COUNT 14.4 K/mm3 (4.0-10.0)
[2017-03-15 09:16] LABS: PLATELET COUNT 154 K/MM3 (134-434)
[2017-03-15 09:17] LABS: ANISOCYTOSIS 1+; HYPOCHROMIA 1+; MICROCYTOSIS 1+; PLATELET COMMENT2 FEW LARGE PLTS; PLATELET ESTIMATE ADEQUATE (NORMAL)
[2017-03-15] MEDS: FLUTICASONE/SALMETEROL 100 MCG/50 MCG DISKUS IH SCH ×2 (09:30→21:45)
[2017-03-15] MEDS: predniSONE 20 MG TABLET (UD) PO SCH ×2 (09:32→21:45)
[2017-03-15] MEDS: amLODIPine BESYLATE 5 MG TABLET (FP) PO SCH (09:32)
[2017-03-15] MEDS: hydrOXYzine PAMOATE 25 MG CAPSULE (FP) PO SCH (09:32)
[2017-03-15] MEDS: HYDROCHLOROTHIAZIDE 25 MG TABLET (FP) PO SCH (09:34)
[2017-03-15] MEDS: HEPARIN NA (PORCINE) 5,000 UNITS/ML 1ML VIAL SQ SCH ×2 (09:34→21:47)
[2017-03-15] MEDS: FERROUS SO4 325 MG TABLET (FP) PO SCH (09:34)
[2017-03-15] MEDS: LEVOFLOXACIN 500 MG IVPB 100 ML IVPB SCH (09:34)
--- NOTE | 2017-03-15 11:18 | PN ---
Progress Note (short form) - Note Progress Note: Resting in NAD on RA. Reports that breathing is improving. HILL is improved as well. Intake & Output 03/12/17 03/13/17 03/14/17 03/15/17 23:59 23:59 23:59 23:59 Intake Total 1320 320 360 240 Balance 1320 320 360 240 Last Vital Signs Temp Pulse Resp BP Pulse Ox 97.9 F 86 20 119/65 98 03/15/17 05:36 03/15/17 05:36 03/15/17 05:36 03/15/17 05:36 03/15/17 04:00 Active Medications Albuterol/Ipratropium (Duoneb -) 1 amp NEB QIDR [facility] Last Admin: 03/15/17 11:11 Dose: 1 amp Amlodipine Besylate (Norvasc -) 5 mg PO DAILY [facility] Last Admin: 03/15/17 09:32 Dose: 5 mg Ferrous Sulfate (Feosol -) 325 mg PO DAILY [facility] Last Admin: 03/15/17 09:34 Dose: 325 mg Heparin Sodium (Porcine) (Heparin -) 5,000 unit SQ BID [facility] Last Admin: 03/15/17 09:34 Dose: Not Given Hydrochlorothiazide (Hctz -) 25 mg PO DAILY [facility] Last Admin: 03/15/17 09:34 Dose: 25 mg Hydroxyzine Pamoate (Vistaril -) 25 mg PO DAILY [facility] Last Admin: 03/15/17 09:32 Dose: 25 mg Levofloxacin (Levaquin 500 Mg Premixed Ivpb -) 100 mls @ 100 mls/hr IVPB DAILY [facility] Last Admin: 03/15/17 09:34 Dose: 100 mls/hr Prednisone (Deltasone -) 30 mg PO BID [facility] Last Admin: 03/15/17 09:32 Dose: 30 mg Fluticasone/Salmeterol (Advair 100mcg/50mcg -) 1 puff IH BID [facility] Last Admin: 03/15/17 09:30 Dose: 1 puff Constitutional: Yes: NAD Eyes: Yes: Conjunctiva Clear, EOM Intact HENT: Yes: Atraumatic, Normocephalic Neck: Yes: Supple, Trachea Midline Cardiovascular: Yes: Regular Rate and Rhythm Respiratory: Yes: bilateral scattered Rhonchi, No Expiratory Wheeze ...Clubbing: No Gastrointestinal: Yes: Normal Bowel Sounds, Soft. No: Tenderness Edema: No Neurological: Yes: Alert, Oriented Laboratory Results - last 24 hr 03/14/17 03/14/17 03/14/17 11:31 16:24 21:32 WBC RBC Hgb Hct MCV MCHC RDW Plt Count MPV Neutrophils % Lymphocytes % Monocytes % Eosinophils % Basophils % Band Neutrophils Myelocytes Differential Comment Platelet Estimate Platelet Comment Hypochromic-Microcytic Anisocytosis Microcytosis Sodium Potassium Chloride Carbon Dioxide Anion Gap BUN Creatinine POC Glucometer 193 159 143 Random Glucose Calcium 03/15/17 03/15/17 03/15/17 06:00 06:00 06:51 WBC 14.4 H RBC 5.07 Hgb 11.4 Hct 35.2 MCV 69.4 L MCHC 32.3 RDW 16.0 H Plt Count 154 MPV 9.4 Neutrophils % 78.0 Lymphocytes % 16.0 D Monocytes % 4.0 D Eosinophils % 0.0 Basophils % 0.0 Band Neutrophils 0.0 D Myelocytes 2 D Differential Comment Manual diff done Platelet Estimate Adequate Platelet Comment Few large plts Hypochromic-Microcytic 1+ Anisocytosis 1+ Microcytosis 1+ Sodium 139 Potassium 4.5 Chloride 98 Carbon Dioxide 32 Anion Gap 9 BUN 38 H Creatinine 1.2 H POC Glucometer 153 Random Glucose 151 H Calcium 8.5 Problem List - Problems (1) COPD exacerbation Code(s): J44.1 - CHRONIC OBSTRUCTIVE PULMONARY DISEASE W (ACUTE) EXACERBATION (2) Acute bronchitis Code(s): J20.9 - ACUTE BRONCHITIS, UNSPECIFIED Qualifiers: Bronchitis organism: unspecified organism Qualified Code(s): J20.9 - Acute bronchitis, unspecified (3) Emphysema lung Code(s): J43.9 - EMPHYSEMA, UNSPECIFIED (4) Bronchiectasis Code(s): J47.9 - BRONCHIECTASIS, UNCOMPLICATED (5) Chronic respiratory failure with hypoxia Code(s): J96.11 - CHRONIC RESPIRATORY FAILURE WITH HYPOXIA (6) Hypertension Code(s): I10 - ESSENTIAL (PRIMARY) HYPERTENSION Qualifiers: Hypertension type: essential hypertension Qualified Code(s): I10 - Essential (primary) hypertension Assessment/Plan Acute COPD Exacerbation Acute Bronchitis Bronchiectasis Emphysema HTN Chronic Hypoxic Respiratory Failure - Prednisone - Inhaled bronchodilators standing and PRN - Tudorza BID - On discharge Advair should be changed to the 250/50 dosing - O2 to keep SPo2 >90% - DVT prophylaxis Dr Carty
--- NOTE | 2017-03-15 14:23 | PN ---
Physical Exam: SUBJECTIVE: Patient seen and examined at bed side this morning. Says she is still wheezing but has improved, breathing is better today.Denies chest pain, palpitations, abdominal pain, nausea or vomiting. OBJECTIVE: Vital Signs Period Temp Pulse Resp BP Sys/Echevarria Pulse Ox Last 24 Hr 97.8 F-97.9 F 86-106 20-20 119-159/65-75 98-100 GENERAL: The patient is awake, alert, and fully oriented, in no acute distress, nasal canula in place. HEAD: Normal with no signs of trauma. EYES: EOM intact, no pallor or icterus. ENT: Ears normal, moist mucous membranes. NECK: Supple. LUNGS: Accessory muscle use +, Breath sounds equal, B/L decreased breath sounds , scattered wheezing but no crackles. HEART: Regular rate and rhythm, S1, S2 without murmur. ABDOMEN: Soft, nontender, nondistended, normoactive bowel sounds, no guarding, no rebound, no hepatosplenomegaly, no masses. EXTREMITIES: 2+ pulses, warm, well-perfused, no edema. NEUROLOGICAL: No facial droop, Bulk, tone-Normal. Cranial nerves II through XII grossly intact. Normal speech, gait not observed. PSYCH: Normal mood, normal affect. SKIN: Warm, dry, normal turgor, no rashes or lesions noted Laboratory Results - last 24 hr 03/14/17 03/14/17 03/15/17 16:24 21:32 06:00 WBC 14.4 H RBC 5.07 Hgb 11.4 Hct 35.2 MCV 69.4 L MCHC 32.3 RDW 16.0 H Plt Count 154 MPV 9.4 Neutrophils % 78.0 Lymphocytes % 16.0 D Monocytes % 4.0 D Eosinophils % 0.0 Basophils % 0.0 Band Neutrophils 0.0 D Myelocytes 2 D Differential Comment Manual diff done Platelet Estimate Adequate Platelet Comment Few large plts Hypochromic-Microcytic 1+ Anisocytosis 1+ Microcytosis 1+ Sodium Potassium Chloride Carbon Dioxide Anion Gap BUN Creatinine POC Glucometer 159 143 Random Glucose Calcium 03/15/17 03/15/17 03/15/17 06:00 06:51 11:45 WBC RBC Hgb Hct MCV MCHC RDW Plt Count MPV Neutrophils % Lymphocytes % Monocytes % Eosinophils % Basophils % Band Neutrophils Myelocytes Differential Comment Platelet Estimate Platelet Comment Hypochromic-Microcytic Anisocytosis Microcytosis Sodium 139 Potassium 4.5 Chloride 98 Carbon Dioxide 32 Anion Gap 9 BUN 38 H Creatinine 1.2 H POC Glucometer 153 100 Random Glucose 151 H Calcium 8.5 Active Medications Generic Name Dose Route Start Last Admin Trade Name Paulq PRN Reason Stop Dose Admin Albuterol/Ipratropium 1 amp 03/10/17 15:30 03/15/17 11:11 Duoneb - NEB 1 amp QIDR ZACHARY Administration Amlodipine Besylate 5 mg 03/10/17 12:00 03/15/17 09:32 Norvasc - PO 5 mg DAILY ZACHARY Administration Ferrous Sulfate 325 mg 03/11/17 10:00 03/15/17 09:34 Feosol - PO 325 mg DAILY ZACHARY Administration Heparin Sodium (Porcine) 5,000 unit 03/10/17 22:00 03/15/17 09:34 Heparin - SQ Not Given BID ZACHARY Hydrochlorothiazide 25 mg 03/11/17 10:00 03/15/17 09:34 Hctz - PO 25 mg DAILY ZACHARY Administration Hydroxyzine Pamoate 25 mg 03/15/17 10:00 03/15/17 09:32 Vistaril - PO 25 mg DAILY ZACHARY Administration Levofloxacin 100 mls @ 100 mls/hr 03/12/17 10:00 03/15/17 09:34 Levaquin 500 Mg Premixed Ivpb - IVPB 100 mls/hr DAILY ZACHARY Administration Prednisone 30 mg 03/14/17 22:00 03/15/17 09:32 Deltasone - PO 30 mg BID ZACHARY Administration Fluticasone/Salmeterol 1 puff 03/10/17 13:00 03/15/17 09:30 Advair 100mcg/50mcg - IH 1 puff BID ZACHARY Administration ASSESSMENT/PLAN: Patient is a 57 year old Female with significant PMH of COPD (on 2L O2 at home) , asthma, HTN, anxiety, former smoker presents to ER with SOB for the last 2 days. Pt with multiple admissions in the past for COPD/Asthma exacerbation. Currently admitted for COPD/asthma exacerbation. # COPD Exacerbation- Resolving Admitted in Med-Surg. Continue IV Levaquin 750mg daily Day 4 (but is actually Day 6 if we count from the day she was admitted before she signed AMA) Predinisone 30mg PO BID Salmeterol/Fluticasone BID; Duoneb Q6H PRN # Leukocytosis: WBC 14 today, likely secondary to steroid use. # Hypertension-controlled Continue HCTZ 25 mg PO Daily Amlodipine 5mg daily # Microcytic anemia most likely Iron deficiency anemia Continue Ferrous sulphate (takes at home) Iron studies 03/09/17: Iron 25; Iron saturation low, normal TIBC, Transferrin and Ferritin . Recommended patient for colonoscopy as outpatient # Prediabetic HbA1c 5.8 % (01/18/17) Diet and counseling # FEN Not on IV Fluids Electrolytes normal Diabetic Diet # Prophylaxis For DVT: On Heparin For GI: Not indicated # Code status: Full Code # Dispo: Admitted in Med-Surg. Didn't discharge today as she is still wheezing, is not symptomatically better. Confirmed medications with the pharmacy Illness, Investigation and Plan of care explained to the patient. She verbalized understanding. Case seen and discussed with Dr. Lazo. Visit type - Emergency Visit Emergency Visit: Yes ED Registration Date: 03/11/17 Care time: The patient presented to the Emergency Department on the above date and was hospitalized for further evaluation of their emergent condition. - New Patient This patient is new to me today: No - Critical Care Critical Care patient: No - Discharge Referral Referred to [facility] Med P.C.: No
[2017-03-15] MEDS ORDERED: SODIUM CHLORIDE 1,000 ML IV SCH (14:45)
--- NOTE | 2017-03-15 20:55 | PN ---
Teaching Attending Note Name of Resident: Leigh Brian ATTENDING PHYSICIAN STATEMENT I saw and evaluated the patient. I reviewed the resident's note and discussed the case with the resident. I agree with the resident's findings and plan as documented. SUBJECTIVE: Continues to have wheezing. OBJECTIVE: Vital Signs Temperature 97.7 F 03/15/17 18:00 Pulse Rate 107 H 03/15/17 18:00 Respiratory Rate 20 03/15/17 18:00 Blood Pressure 146/76 03/15/17 18:00 O2 Sat by Pulse Oximetry (%) 98 03/15/17 04:00 CBCD WBC 14.4 K/mm3 (4.0-10.0) H 03/15/17 06:00 RBC 5.07 M/mm3 (3.60-5.2) 03/15/17 06:00 Hgb 11.4 GM/dL (10.7-15.3) 03/15/17 06:00 Hct 35.2 % (32.4-45.2) 03/15/17 06:00 MCV 69.4 fl (80-96) L 03/15/17 06:00 MCHC 32.3 g/dl (32.0-36.0) 03/15/17 06:00 RDW 16.0 % (11.6-15.6) H 03/15/17 06:00 Plt Count 154 K/MM3 (134-434) 03/15/17 06:00 MPV 9.4 fl (7.5-11.1) 03/15/17 06:00 CMP Sodium 139 mmol/L (136-145) 03/15/17 06:00 Potassium 4.5 mmol/L (3.5-5.1) 03/15/17 06:00 Chloride 98 mmol/L (98-107) 03/15/17 06:00 Carbon Dioxide 32 mmol/L (21-32) 03/15/17 06:00 Anion Gap 9 (8-16) 03/15/17 06:00 BUN 38 mg/dL (7-18) H 03/15/17 06:00 Creatinine 1.2 mg/dL (0.55-1.02) H 03/15/17 06:00 Random Glucose 151 mg/dL (74-106) H 03/15/17 06:00 Calcium 8.5 mg/dL (8.5-10.1) 03/15/17 06:00 Current Medications Generic Name Dose Route Start Last Admin Trade Name Paulq PRN Reason Stop Dose Admin Amlodipine Besylate 5 mg 03/10/17 12:00 03/15/17 09:32 Norvasc - PO 5 mg DAILY ZACHARY Administration Ferrous Sulfate 325 mg 03/11/17 10:00 03/15/17 09:34 Feosol - PO 325 mg DAILY ZACHARY Administration Heparin Sodium (Porcine) 5,000 unit 03/10/17 22:00 03/15/17 09:34 Heparin - SQ Not Given BID ZACHARY Hydrochlorothiazide 25 mg 03/11/17 10:00 03/15/17 09:34 Hctz - PO 25 mg DAILY ZACHARY Administration Hydroxyzine Pamoate 25 mg 03/15/17 10:00 03/15/17 09:32 Vistaril - PO 25 mg DAILY ZACHARY Administration Levofloxacin 100 mls @ 100 mls/hr 03/12/17 10:00 03/15/17 09:34 Levaquin 500 Mg Premixed Ivpb - IVPB 100 mls/hr DAILY ZACHARY Administration Sodium Chloride 1,000 mls @ 50 mls/hr 03/15/17 14:45 03/15/17 15:15 Normal Saline - IV 03/16/17 14:36 50 mls/hr ASDIR ZACHARY Administration Prednisone 30 mg 03/14/17 22:00 03/15/17 09:32 Deltasone - PO 30 mg BID ZACHARY Administration Fluticasone/Salmeterol 1 puff 03/10/17 13:00 03/15/17 09:30 Advair 100mcg/50mcg - IH 1 puff BID ZACHARY Administration Home Medications Medication Instructions Recorded Albuterol 0.083% Nebulizer Destiny 1 amp NEB Q4H PRN #0 amp 09/25/16 [Ventolin 0.083% Nebulizer Soln -] Hydrochlorothiazide [Hctz -] 25 mg PO DAILY tablet 09/25/16 Albuterol 2.5/Ipratropium 0.5 1 amp NEB QIDR amp 03/09/17 [Duoneb -] Ferrous Sulfate [Feosol] 325 mg PO DAILY #30 cap 03/09/17 Metoprolol Tartrate [Lopressor] 50 mg PO BID 06/20/17 Hydroxyzine HCl 0 mg PO DAILY PRN 03/10/17 Umeclidinium Hinckley [Incruse 62.5 mcg IH DAILY 03/10/17 Ellipta] PE: per resident's note ASSESSMENT AND PLAN: Patient is a 55 year old female with a history of COPD/bronchiectasis, a long history of cigarette smoking, polysubstance abuse, and HTN .The patient presented to the ED with SOB , and was found to have acute COPD exacerbation. # Acute COPD exacerbation on Levaquin last dose today , continue Prednisone 30mg bid and taper upon discharge continue nebulizer treatments continue Advair continue, pulmonary consult appreciated. # Microcytic anemia ; Fe studies ordered. no evidence of bleed. colonoscopy as out pt # HTN Controlled continue HCTZ 25mg daily , start Norvasc 5mg daily DVT px: heparin SQ bid Code Status- FULL CODE
[2017-03-16 07:38] LABS: MCH 22.4 pg (25.7-33.7); MCHC 31.8 g/dl (32.0-36.0); MEAN CELL VOLUME 70.5 fl (80-96); MEAN PLT VOLUME 8.8 fl (7.5-11.1); PLATELET COUNT 189 K/MM3 (134-434); RDW 16.6 % (11.6-15.6); WHITE BLOOD COUNT 12.2 K/mm3 (4.0-10.0)
[2017-03-16 07:47] LABS: ANION GAP 7 (8-16); CALCIUM 8.3 mg/dL (8.5-10.1); CO2 33 mmol/L (21-32)
[2017-03-16 07:50] LABS: CREATININE 1.7 mg/dL (0.55-1.02); GLUCOSE,RANDOM 136 mg/dL (74-106)
[2017-03-16] MEDS: FERROUS SO4 325 MG TABLET (FP) PO SCH (10:00)
[2017-03-16] MEDS: amLODIPine BESYLATE 5 MG TABLET (FP) PO SCH (10:00)
[2017-03-16] MEDS: predniSONE 20 MG TABLET (UD) PO SCH (10:00)
[2017-03-16] MEDS: HYDROCHLOROTHIAZIDE 25 MG TABLET (FP) PO SCH (10:00)
[2017-03-16] MEDS: HEPARIN NA (PORCINE) 5,000 UNITS/ML 1ML VIAL SQ SCH (10:01)
[2017-03-16] MEDS: hydrOXYzine PAMOATE 25 MG CAPSULE (FP) PO SCH (10:02)
--- NOTE | 2017-03-16 10:19 | PN ---
Progress Note (short form) - Note Progress Note: Feels overall better. Still with dry cough. HILL is improved as well and close to baseline. Intake & Output 03/13/17 03/14/17 03/15/17 03/16/17 23:59 23:59 23:59 23:59 Intake Total 178 635 0377 350 Balance 027 124 0786 350 Last Vital Signs Temp Pulse Resp BP Pulse Ox 98.2 F 86 18 112/64 99 03/16/17 05:42 03/16/17 05:42 03/16/17 05:42 03/16/17 05:42 03/16/17 03:17 Active Medications Amlodipine Besylate (Norvasc -) 5 mg PO DAILY [facility] Last Admin: 03/16/17 10:00 Dose: 5 mg Ferrous Sulfate (Feosol -) 325 mg PO DAILY [facility] Last Admin: 03/16/17 10:00 Dose: 325 mg Heparin Sodium (Porcine) (Heparin -) 5,000 unit SQ BID [facility] Last Admin: 03/16/17 10:01 Dose: Not Given Hydrochlorothiazide (Hctz -) 25 mg PO DAILY [facility] Last Admin: 03/16/17 10:00 Dose: 25 mg Hydroxyzine Pamoate (Vistaril -) 25 mg PO DAILY [facility] Last Admin: 03/16/17 10:02 Dose: 25 mg Levofloxacin (Levaquin 500 Mg Premixed Ivpb -) 100 mls @ 100 mls/hr IVPB DAILY [facility] Last Admin: 03/15/17 09:34 Dose: 100 mls/hr Sodium Chloride (Normal Saline -) 1,000 mls @ 50 mls/hr IV ASDIR [facility] Stop: 03/16/17 14:36 Last Admin: 03/15/17 15:15 Dose: 50 mls/hr Prednisone (Deltasone -) 30 mg PO BID [facility] Last Admin: 03/16/17 10:00 Dose: 30 mg Fluticasone/Salmeterol (Advair 100mcg/50mcg -) 1 puff IH BID [facility] Last Admin: 03/15/17 21:45 Dose: 1 puff Constitutional: Yes: NAD Eyes: Yes: Conjunctiva Clear, EOM Intact HENT: Yes: Atraumatic, Normocephalic Neck: Yes: Supple, Trachea Midline Cardiovascular: Yes: Regular Rate and Rhythm Respiratory: Yes: bilateral scattered Rhonchi, No Expiratory Wheeze ...Clubbing: No Gastrointestinal: Yes: Normal Bowel Sounds, Soft. No: Tenderness Edema: No Neurological: Yes: Alert, Oriented Laboratory Results - last 24 hr 03/15/17 03/15/17 03/15/17 11:45 16:22 21:48 WBC RBC Hgb Hct MCV MCHC RDW Plt Count MPV Sodium Potassium Chloride Carbon Dioxide Anion Gap BUN Creatinine POC Glucometer 100 169 100 Random Glucose Calcium 03/16/17 03/16/17 03/16/17 06:00 06:00 06:34 WBC 12.2 H RBC 4.90 Hgb 11.0 Hct 34.5 MCV 70.5 L MCHC 31.8 L RDW 16.6 H Plt Count 189 D MPV 8.8 Sodium 138 Potassium 4.6 Chloride 98 Carbon Dioxide 33 H Anion Gap 7 L BUN 41 H Creatinine 1.7 H D POC Glucometer 138 Random Glucose 136 H Calcium 8.3 L Problem List - Problems (1) COPD exacerbation Code(s): J44.1 - CHRONIC OBSTRUCTIVE PULMONARY DISEASE W (ACUTE) EXACERBATION (2) Acute bronchitis Code(s): J20.9 - ACUTE BRONCHITIS, UNSPECIFIED Qualifiers: Bronchitis organism: unspecified organism Qualified Code(s): J20.9 - Acute bronchitis, unspecified (3) Emphysema lung Code(s): J43.9 - EMPHYSEMA, UNSPECIFIED (4) Bronchiectasis Code(s): J47.9 - BRONCHIECTASIS, UNCOMPLICATED (5) Chronic respiratory failure with hypoxia Code(s): J96.11 - CHRONIC RESPIRATORY FAILURE WITH HYPOXIA (6) Hypertension Code(s): I10 - ESSENTIAL (PRIMARY) HYPERTENSION Qualifiers: Hypertension type: essential hypertension Qualified Code(s): I10 - Essential (primary) hypertension Assessment/Plan Acute COPD Exacerbation Acute Bronchitis Bronchiectasis Emphysema HTN Chronic Hypoxic Respiratory Failure - Prednisone - Inhaled bronchodilators standing and PRN - Tudorza BID OR Spiriva 18mcq OD - On discharge Advair should be changed to the 250/50 dosing - O2 to keep SPo2 >90% - DVT prophylaxis - No smoking advised to the patient Dr Carty
[2017-03-16] MEDS ORDERED: SODIUM CHLORIDE 0.9% 1000 ML INFUS.BAG IV ONE (10:26)
--- NOTE | 2017-03-16 10:30 | DS ---
Physical Exam: SUBJECTIVE: Patient seen and examined Patient is feeling better and would like to go home. OBJECTIVE: Vital Signs Temperature 98.4 F 03/16/17 14:40 Pulse Rate 78 03/16/17 14:40 Respiratory Rate 18 03/16/17 14:40 Blood Pressure 119/55 03/16/17 14:40 O2 Sat by Pulse Oximetry (%) 98 03/16/17 08:00 PHYSICAL EXAM GENERAL: The patient is awake, alert, and fully oriented, in no acute distress. HEAD: Normal with no signs of trauma. EYES: PERRL, extraocular movements intact, sclera anicteric, conjunctiva clear. ENT: Ears normal, nares patent, oropharynx clear without exudates, moist mucous membranes. NECK: Trachea midline, full range of motion, supple. LUNGS: Positive for mild wheezing, better air entery bl,no accessory muscle use. HEART: Regular rate and rhythm, S1, S2 without murmur, rub or gallop. ABDOMEN: Soft, nontender, nondistended, normoactive bowel sounds, no guarding, no rebound, no hepatosplenomegaly, no masses. EXTREMITIES: 2+ pulses, warm, well-perfused, no edema. NEUROLOGICAL: Cranial nerves II through XII grossly intact. Normal speech, gait not observed. PSYCH: Normal mood, normal affect. SKIN: Warm, dry, normal turgor, no rashes or lesions noted. LABS Laboratory Results - last 24 hr 03/15/17 03/15/17 03/15/17 11:45 16:22 21:48 WBC RBC Hgb Hct MCV MCHC RDW Plt Count MPV Sodium Potassium Chloride Carbon Dioxide Anion Gap BUN Creatinine POC Glucometer 100 169 100 Random Glucose Calcium 03/16/17 03/16/17 03/16/17 06:00 06:00 06:34 WBC 12.2 H RBC 4.90 Hgb 11.0 Hct 34.5 MCV 70.5 L MCHC 31.8 L RDW 16.6 H Plt Count 189 D MPV 8.8 Sodium 138 Potassium 4.6 Chloride 98 Carbon Dioxide 33 H Anion Gap 7 L BUN 41 H Creatinine 1.7 H D POC Glucometer 138 Random Glucose 136 H Calcium 8.3 L Current Medications Generic Name Dose Route Start Last Admin Trade Name Freq PRN Reason Stop Dose Admin Amlodipine Besylate 5 mg 03/10/17 12:00 03/16/17 10:00 Norvasc - PO 5 mg DAILY ZACHARY Administration Ferrous Sulfate 325 mg 03/11/17 10:00 03/16/17 10:00 Feosol - PO 325 mg DAILY ZACHARY Administration Hydroxyzine Pamoate 25 mg 03/15/17 10:00 03/16/17 10:02 Vistaril - PO 25 mg DAILY ZACHARY Administration Sodium Chloride 1,000 mls @ 150 mls/hr 03/16/17 11:00 Normal Saline - IV 03/16/17 17:39 ASDIR ZACHARY Prednisone 30 mg 03/14/17 22:00 03/16/17 10:00 Deltasone - PO 30 mg BID ZACHARY Administration Fluticasone/Salmeterol 1 puff 03/10/17 13:00 03/15/17 21:45 Advair 100mcg/50mcg - IH 1 puff BID ZACHARY Administration Home Medications Medication Instructions Recorded Albuterol 0.083% Nebulizer Destiny 1 amp NEB Q4H PRN #0 amp 09/25/16 [Ventolin 0.083% Nebulizer Soln -] Ferrous Sulfate [Feosol] 325 mg PO DAILY #30 cap 03/09/17 Hydroxyzine HCl 0 mg PO DAILY PRN 03/10/17 Umeclidinium [place] [Incruse 62.5 mcg IH DAILY 03/10/17 Ellipta] Albuterol 0.083% Nebulizer Destiny 1 amp NEB Q4H PRN #0 amp 03/16/17 [Ventolin 0.083% Nebulizer Soln -] Amlodipine Besylate [Norvasc -] 5 mg PO DAILY tablet 03/16/17 Hydroxyzine Pamoate [Vistaril -] 25 mg PO DAILY #30 cap 03/16/17 Prednisone [Deltasone -] 10 mg PO BID #64 tablet 03/16/17 Salmeterol/Fluticasone [Advair 1 puff IH BID #60 inhaler 03/16/17 100Mcg/50Mcg -] HOSPITAL COURSE: Date of Admission:03/11/17 Date of Discharge: 03/16/17 Patient is a 55 year old female with a history of COPD/bronchiectasis, a long history of cigarette smoking, polysubstance abuse, and HTN .The patient presented to the ED with SOB , and was found to have acute COPD exacerbation. Patient is admitted for exacerbation of COPD ,placed the patient on Solumedrol IV, antibiotic. Patient did well. Needs to follow up with Pulmonary,nephrology prescribed prednisone for 16 day taper dose. ARF: given i liter of fluid, and follow with nephrologsit and was suggested to drink 2 liter of water per day. # Acute COPD exacerbation on Levaquin last dose today , continue Prednisone 30mg bid and taper upon discharge continue nebulizer treatments continue Advair continue, pulmonary consult appreciated. # Microcytic anemia ; Fe studies ordered. no evidence of bleed. colonoscopy as out pt # HTN Controlled continue HCTZ 25mg daily , start Norvasc 5mg daily Follow with Pulmonary follow with Nephrology finish meds as prescribed Minutes to complete discharge: 35 Discharge Summary Reason For Visit: COPD Current Active Problems Acute bronchitis (Acute) COPD exacerbation (Acute) Chronic respiratory failure with hypoxia (Acute) Emphysema lung (Acute) Sepsis (Acute) Shortness of breath (Acute) Bronchiectasis (Chronic) Condition: Stable - Instructions Diet, Activity, Other Instructions: Drink at least 2 liter of fluid per day to improve your kidney function See a induction machine setter to follow up your kidney function. ( ) finish prednisone and take it as instructed Continue your home oxygen and inhalers at home Referrals: Marija Ro MD [Primary Care Provider] - Mirela Marquez MD [Staff Physician] - 1 Week Abdifatah Carty MD [Staff Physician] - 1 Week Disposition: HOME - Home Medications Comprehensive Discharge Medication List: Ambulatory Orders Albuterol 0.083% Nebulizer Destiny [Ventolin 0.083% Nebulizer Soln -] 1 amp NEB Q4H PRN #0 amp 09/25/16 Hydrochlorothiazide [Hctz -] 25 mg PO DAILY tablet 09/25/16 Albuterol 2.5/Ipratropium 0.5 [Duoneb -] 1 amp NEB QIDR amp 03/09/17 Ferrous Sulfate [Feosol] 325 mg PO DAILY #30 cap 03/09/17 Metoprolol Tartrate [Lopressor] 50 mg PO BID 03/09/17 Hydroxyzine HCl 0 mg PO DAILY PRN 03/10/17 Umeclidinium [place] [Incruse Ellipta] 62.5 mcg IH DAILY 03/10/17 This patient is new to me today: Yes Date on this admission: 03/18/17 Emergency Visit: No Critical Care patient: No - Discharge Referral Referred to [facility] No
[2017-03-16] MEDS: LEVOFLOXACIN 500 MG IVPB 100 ML IVPB SCH (10:56)
[2017-03-16] MEDS ORDERED: SODIUM CHLORIDE 1,000 ML IV SCH (11:00)
[2017-03-16 14:41] VITALS: BP 119/55; PULSE 78; TEMP 98.4
== END 2017-03-16 18:24 | disposition home or self-care (01) | DRG 140 ==
LOC: JER 05:35 → JERBED 09:25 → J7W 10:37 → OBSVTOIN 03-11 08:41
PROVIDERS: ADMIT Internal Medicine; ATTEND Internal Medicine
PROC: 3E0F7GC Introduction of Other Therapeutic Substance into Respiratory Tract, Via Natural or Artificial Opening (ICD-10-PCS; principal; 2017-03-10)
DX: J44.0 Chronic obstructive pulmonary disease with (acute) lower respiratory infection (principal); J20.9 Acute bronchitis, unspecified; J44.1 Chronic obstructive pulmonary disease with (acute) exacerbation; Z87.891 Personal history of nicotine dependence; Z99.81 Dependence on supplemental oxygen; I10 Essential (primary) hypertension; F41.9 Anxiety disorder, unspecified; D64.9 Anemia, unspecified; N39.0 Urinary tract infection, site not specified; R73.03 Prediabetes; J96.11 Chronic respiratory failure with hypoxia; M16.11 Unilateral primary osteoarthritis, right hip
CPT/HCPCS: 36415; 71010-TC; 71020-TC; 80048; 80307; 81003; 81015; 83735; 85025; 85027; 87086; 94640; 99284-25; G0378; J1644

== ENCOUNTER 2017-03-23 18:43 | Inpatient (IN) | payer OTHER ==
[2017-03-23] MEDS ORDERED: ALBUTEROL SO4 0.083% IH SOL 2.5 MG/3 ML VIAL.NEB. NEB ONE (18:50)
[2017-03-23] MEDS ORDERED: IPRATROPIUM BR 0.02% 0.5 MG/2.5 ML VIAL.NEB. NEB ONE (18:51)
--- NOTE | 2017-03-23 18:57 | PDOC ---
History of Present Illness - History of Present Illness Initial Comments: 03/23/17 19:18 Patient is a 57 year old female with significant medical hx of COPD (2L O2 at home for the past month), asthma (no past intubations), HTN, anxiety, and former smoker (with longstanding history) who is presenting to the ED with respiratory distress. The patient states shes had increased shortness of breath that worsened two hours prior to arrival. Patient reports she was outside when her symptoms worsened. She complains of cough, chest tightness, and worsening shortness of breath. She notes that her cough began once she arrived to the ED. Patient is on prednisone at this time. Denies fever, chills, nausea, vomiting, lightheadedness, syncope. Patient was recently admitted on 03/10-03/16 for SOB, cough, chest pain, rhinorrhea, and cough. She was found to have acute COPD exacerbation and placed on Solumedrol IV and antibiotic. Patient has not followed up with a in house cra and states she does not have one at this time. PCP: Marija Aguilar MD Social Hx: Quit tobacco smoking 2 years ago, prior to that 45 pack years. Occasional ETOH use. Denies current illicit drug use, however, has a history of crack cocaine use over five years ago. <Claudia Mulligan - Last Filed: 03/23/17 20:52> <Hoa Gonzalez - Last Filed: 03/23/17 21:54> - General Chief Complaint: Shortness of Breath Stated Complaint: shortness of breath Time Seen by Provider: 03/23/17 18:49 Past History <Claudia Mulligan - Last Filed: 03/23/17 20:52> - Past Medical History Anemia: No Asthma: Yes (Dx 2004) Cardiac Disorders: Yes CVA: No COPD: Yes Diabetes: No GI Disorders: No Disorders: No HTN: Yes Hypercholesterolemia: No Kidney Stones: No Psychiatric Problems: Yes (anxiety) Suicide Attempt (Hx): No Seizures: No Thyroid Disease: No - Surgical History Abdominal Surgery: No Appendectomy: No Cardiac Surgery: No Cholecystectomy: No Lung Surgery: No Neurologic Surgery: No Orthopedic Surgery: No - Reproductive History PID: No - Immunization History Immunization Up to Date: Yes - Psycho/Social/Smoking Cessation Hx Anxiety: No Suicidal Ideation: No Smoking Status: No Smoking History: Unknown if ever smoked Have you smoked in the past 12 months: No Number of Cigarettes Smoked Daily: 0 If you are a former smoker, when did you quit?: 1 year ago Information on smoking cessation initiated: No 'Breaking Loose' booklet given: 04/10/15 Hx Alcohol Use: No Drug/Substance Use Hx: No Substance Use Type: Heroin Hx Substance Use Treatment: Yes <Hoa Gonzalez - Last Filed: 03/23/17 21:54> - Past Medical History Allergies/Adverse Reactions: Allergies Allergy/AdvReac Type Severity Reaction Status Date / Time black walnut Allergy Severe Hives Verified 03/23/17 18:52 sulfamethoxazole Allergy Severe Swelling Verified 03/23/17 18:52 [From Bactrim] trimethoprim [From Bactrim] Allergy Severe Swelling Verified 03/23/17 18:52 PECAN Allergy Severe Hives Uncoded 03/23/17 18:52 Home Medications: Ambulatory Orders Albuterol 0.083% Nebulizer Destiny [Ventolin 0.083% Nebulizer Soln -] 1 amp NEB Q4H PRN #0 amp 09/25/16 Ferrous Sulfate [Feosol] 325 mg PO DAILY #30 cap 03/09/17 Hydroxyzine HCl 0 mg PO DAILY PRN 03/10/17 Umeclidinium [place] [Incruse Ellipta] 62.5 mcg IH DAILY 03/10/17 Albuterol 0.083% Nebulizer Destiny [Ventolin 0.083% Nebulizer Soln -] 1 amp NEB Q4H PRN #0 amp 03/16/17 Amlodipine Besylate [Norvasc -] 5 mg PO DAILY tablet 03/16/17 Hydroxyzine Pamoate [Vistaril -] 25 mg PO DAILY #30 cap 03/16/17 Prednisone [Deltasone -] 10 mg PO BID #64 tablet 03/16/17 Salmeterol/Fluticasone [Advair 100Mcg/50Mcg -] 1 puff IH BID #60 inhaler Respiratory Specific PMHX - Complaint Specific PMHX TB (Tuberculosis): No <Hoa Gonzalez - Last Filed: 03/23/17 21:54> Review of Systems - Review of Systems Comments:: 03/23/17 19:18 CONSTITUTIONAL: Absent: fever, chills, diaphoresis, generalized weakness, malaise, loss of appetite HEENT: Absent: rhinorrhea, nasal congestion, throat pain, throat swelling, difficulty swallowing, mouth swelling, ear pain, eye pain, visual changes CARDIOVASCULAR: Present: chest tightness Absent: syncope, palpitations, lightheadedness, peripheral edema RESPIRATORY: Present: cough, shortness of breath, wheezing Absent: dyspnea with exertion, orthopnea, stridor, hemoptysis GASTROINTESTINAL: Absent: abdominal pain, abdominal distension, nausea, vomiting, diarrhea, constipation, melena, hematochezia GENITOURINARY: Absent: dysuria, frequency, urgency, hesitancy, hematuria, flank pain, genital pain MUSCULOSKELETAL: Absent: myalgia, arthralgia, joint swelling SKIN: Absent: rash, itching, pallor HEMATOLOGIC/IMMUNOLOGIC: Absent: easy bleeding, easy bruising, lymphadenopathy, frequent infections ENDOCRINE: Absent: unexplained weight gain, unexplained weight loss, heat intolerance, cold intolerance NEUROLOGIC: Absent: headache, focal weakness or paresthesia, dizziness, unsteady gait, seizure, mental status changes, bladder or bowel incontinence. PSYCHIATRIC: Absent: anxiety, depression, suicidal or homicidal ideation, hallucinations <Claudia Mulligan - Last Filed: 03/23/17 20:52> *Physical Exam - Vital Signs Last Vital Signs Temp Pulse Resp BP Pulse Ox 98.2 F 130 H 24 207/102 89 L 03/23/17 18:51 03/23/17 18:51 03/23/17 18:51 03/23/17 18:51 03/23/17 18:51 - Physical Exam Comments: 03/23/17 19:19 GENERAL: Well developed, well nourished. Awake and alert. No acute distress. HEENT: Normocephalic, atraumatic. PERRLA, EOMI. No conjunctival pallor. Sclera are non- icteric. Moist mucous membranes. Oropharynx is clear. NECK: Supple. Full ROM. No JVD. Carotid pulses 2+ and symmetric, without bruits. No thyromegaly. No lymphadenopathy. CARDIOVASCULAR: Tachycardic . No murmurs, rubs, or gallops. Distal pulses are 2+ and symmetric. PULMONARY: Respiratory distress. Accessory muscle use. Increased labored breathing. Decreased breath sounds initially with scant wheezes, now after two treatments increased breath sounds. ABDOMINAL: Soft. Non-tender. Non-distended. No rebound or guarding. No organomegaly. Normoactive bowel sounds. MUSCULOSKELETAL: Normal range of motion at all joints. No bony deformities or tenderness. No CVA tenderness. EXTREMITIES: No cyanosis. No clubbing. No pitting edema. No calf tenderness. SKIN: Warm and dry. Normal capillary refill. No rashes. No jaundice. NEUROLOGICAL: Alert, awake, appropriate. Cranial nerves 2-12 intact. Normal speech. Gait is normal without ataxia. PSYCHIATRIC: Cooperative. Good eye contact. Appropriate mood and affect. <Claudia Mulligan - Last Filed: 03/23/17 20:52> - Vital Signs Last Vital Signs Temp Pulse Resp BP Pulse Ox 98.2 F 130 H 24 207/102 89 L 03/23/17 18:51 03/23/17 18:51 03/23/17 18:51 03/23/17 18:51 03/23/17 18:51 <Hoa Gonzalez - Last Filed: 03/23/17 21:54> Heart Score/ECG Review #1 03/23/17 19:32 Sinus tachycardia at 137 bpm with frequent premature ventricular complexes Biatrial enlargement Abnormal ECG <Claudia Mulligan - Last Filed: 03/23/17 20:52> ED Treatment Course - LABORATORY CBC & Chemistry Diagram: 03/23/17 19:05 03/23/17 19:05 - RADIOLOGY Radiograph Interpretation: 03/23/17 20:52 Ortho Nurse: ([email or web address]) Report Date: 03/23/2017 19:05:00 Report Status: Preliminary Begin of Report Content Referring Physician: Hoa Gonzalez Patient Name: Donita Keith THIS IS A PRELIMINARY REPORT FROM IMAGING IRRIGATION LABORER EXAM: Portable chest x-ray IMAGES: 2 DATE OF SERVICE: 2017-03-23 19:05:05.0 REASON FOR EXAM: Wheezing, rule out infiltrate COMPARISON: None FINDINGS: The heart size is normal. Streaky infiltrate is noted in both lower lobes, left greater than right. There is no obvious pneumothorax. THIS DOCUMENT HAS BEEN ELECTRONICALLY SIGNED Artie Sanches MD 03/23/2017 20:33 ARUN Hoyos. Please call Imaging Irrigationist [phone] ([phone]) with questions. End of Report Content - Medications Given in the ED: ED Medications Discontinued Medications Generic Name Dose Route Start Last Admin Trade Name Andrea PRN Reason Stop Dose Admin Methylprednisolone Sodium Succinate 125 mg 03/23/17 18:58 03/23/17 19:04 Solu-Medrol - IVPB 03/23/17 18:59 125 mg ONCE ONE Administration <Claudia Mulligan - Last Filed: 03/23/17 20:52> - LABORATORY CBC & Chemistry Diagram: 03/23/17 19:05 03/23/17 19:05 <Hoa Gonzalez - Last Filed: 03/23/17 21:54> Medical Decision Making - Critical Care Time Total Critical Care Time (minutes): 40 Critical Care Statement: The care of this patient involved high complexity decision making to prevent further life threatening deterioration of the patient 's condition and/or to evalute & treat vital organ system(s) failure or risk of failure. - Medical Decision Making 03/23/17 19:36 57-year-old female with a history of COPD who is oxygen dependent, presents with 2 hours of significant dyspnea. She is in moderate respiratory distress using accessory muscles, hypoxic and tachycardic She was recently discharged at the end of February and requested to follow-up with a in house cra and she never made any appointments. She is currently on prednisone taper 03/23/17 21:18 Chest x-ray shows infiltrates She has a leukocytosis of 24,000. That is elevated even in the light of her prednisone Impression pneumonia, COPD exacerbation, O2 dependent Patient will be admitted for IV antibiotics and further albuterol treatments <Hoa Gonzalez - Last Filed: 03/23/17 21:54> *DC/Admit/Observation/Transfer - Attestations Scribe Attestion: 03/23/17 19:21 Documentation prepared by Claudia Mulligan, acting as bio medical technician for Hoa Gonzalez MD. <IsaakClaudia - Last Filed: 03/23/17 20:52> - Discharge Dispostion Admit: Yes <Hoa Gonzalez - Last Filed: 03/23/17 21:54> Diagnosis at time of Disposition: COPD exacerbation, Dependence on supplemental oxygen PNA (pneumonia) Qualifiers: Pneumonia type: due to unspecified organism Laterality: bilateral Lung location : lower lobe of lung Qualified Code(s): J18.9 - Pneumonia, unspecified organism
[2017-03-23] MEDS ORDERED: methylPREDNISolone NA SUCC 125 MG/2 ML VIAL IVPB ONE (18:58)
[2017-03-23] MEDS ORDERED: MAGNESIUM SULF 50% (8.12 MEQ/2 ML-1 GM VIAL) IVPB ONE (18:59)
[2017-03-23] MEDS ORDERED: methylPREDNISolone NA SUCC 125 MG/2 ML VIAL ONE (19:00)
[2017-03-23 19:17] LABS: MCH 21.8 pg (25.7-33.7); MCHC 30.9 g/dl (32.0-36.0); MEAN CELL VOLUME 70.4 fl (80-96); MEAN PLT VOLUME 9.1 fl (7.5-11.1); PLATELET COUNT 198 K/MM3 (134-434); RDW 16.8 % (11.6-15.6); WHITE BLOOD COUNT 24.9 K/mm3 (4.0-10.0)
[2017-03-23] MEDS ORDERED: MAGNESIUM SULF 50% (8.12 MEQ/2 ML-1 GM VIAL) ONE (19:24)
[2017-03-23 19:41] LABS: ALBUMIN 3.1 g/dl (3.4-5.0); ANION GAP 6 (8-16); CALCIUM 8.7 mg/dL (8.5-10.1); CO2 31 mmol/L (21-32); GLUCOSE,RANDOM 96 mg/dL (74-106); SGOT/AST 12 U/L (15-37)
[2017-03-23 19:43] LABS: ALK PHOS 87 U/L (45-117); BILIRUBIN,TOTAL 0.3 mg/dL (0.2-1.0); CREATININE 1.2 mg/dL (0.55-1.02); SGPT/ALT 23 U/L (12-78); TOT PROT 7.3 g/dl (6.4-8.2)
[2017-03-23 19:45] LABS: TROPONIN I < 0.02 ng/ml (0.00-0.05)
[2017-03-23 20:11] LABS: PLATELET ESTIMATE ADEQUATE (NORMAL)
[2017-03-23 20:12] LABS: HYPOCHROMIA 2+; OVALOCYTES 1+; POIKILOCYTOSIS 1+; TARGET CELLS RARE
[2017-03-23] MEDS ORDERED: CEFTRIAXONE 1 GM in DEXTROSE 5%-WATER - 50 ML IVPB ONE (21:19)
[2017-03-23] MEDS ORDERED: AZITHROMYCIN IVPB 500 MG in DEXTROSE 5%-WATER - 250 ML IVPB ONE (21:20)
[2017-03-23] MEDS ORDERED: AZITHROMYCIN IVPB 250 ML IVPB ONE (22:06)
--- NOTE | 2017-03-23 22:06 | HP ---
HISTORY OF PRESENT ILLNESS: Patient is a 57 year old female with a PMHx of COPD (2L 02 at home)/Asthma with multiple admissions for exacerbation (recent one 03/11/17), HTN, and anxiety who presents to the ED for worsening shortness of breath in the last 24 hours associated with a productive cough and chest pain with cough. Patient is currently on prednisone taper from previous admission and completed a full course of Levaquin inpatient. PHYSICAL EXAMINATION Vital Signs - 24 hr 03/23/17 03/23/17 18:51 19:59 Temperature 98.2 F Pulse Rate 130 H Respiratory 24 Rate Blood Pressure 207/102 O2 Sat by Pulse 89 L 98 Oximetry (%) GENERAL: Awake, alert, and fully oriented, in no acute distress. LUNGS: Audible wheezing and coarse expiratory wheezing throughout lung bases bilaterally with Rhonchi in lower bases bilaterally. HEART: Tachycardic with regular rhythm, normal S1 and S2 without murmur, rub or gallop. ABDOMEN: Soft, nontender, not distended, normoactive bowel sounds, no guarding, no rebound, no masses. LOWER EXTREMITIES:No peripheral edema. Laboratory Results - last 24 hr 03/23/17 03/23/17 03/23/17 19:05 19:05 19:05 WBC 24.9 H D RBC 5.54 H Hgb 12.1 Hct 39.0 MCV 70.4 L MCHC 30.9 L RDW 16.8 H Plt Count 198 MPV 9.1 Neutrophils % 67.0 Lymphocytes % 17.0 Monocytes % 11.0 H D Band Neutrophils 2.0 D Nucleated RBCs 1 H Differential Comment Manual diff done Reactive Lymphocytes 3 D Platelet Estimate Adequate Platelet Comment Few large plts Hypochromic-Microcytic 2+ Poikilocytosis 1+ Target Cells Rare Ovalocytes 1+ Morphology Comment Slide scanned Sodium 139 Potassium 4.3 Chloride 102 Carbon Dioxide 31 Anion Gap 6 L BUN 29 H D Creatinine 1.2 H D Creat Clearance w eGFR 46.14 Random Glucose 96 D Calcium 8.7 Total Bilirubin 0.3 D AST 12 L ALT 23 D Alkaline Phosphatase 87 Creatine Kinase 52 Troponin I < 0.02 Total Protein 7.3 Albumin 3.1 L IMAGES: Chest X-ray (03/24/17): Streaky infiltrate is noted in both lower lobes, left greater than right, as per night hawk ASSESSMENT/PLAN: Patient is a 57 year old female with a PMHx of COPD (on 2L 02)/Asthma, HTN, anxiety who presented with shortness of breath associated with productive cough. Patient was found to have bilateral infiltrates on Chest X-ray and admitted for further monitoring and management. Severe Sepsis Secondary to Hospital Acquired Pneumonia -Leukocytosis 24.9, tachycardia >90, Tachypnea 22 RR, Lactic acid 2.9 -Hospital admission within 90 days -Chest X-ray revealed bilateral infiltrate -Vancomycin 1gm ordered -Continue Ceftriaxone and Azithromycin daily -Solu-medrol 60mg Q12H -Blood cultures sent -Sputum cultures and Urine antigens ordered -IV NS half bolus ordered -Repeat Lactic Acid -O2 PRN COPD/ASTHMA- Currently wheezing. Continue home medication Incruse daily. DuoNeb TID standing and Q4H PRN. 02 PRN. Pulmonology consult Chest Pain-Likely secondary to cough. Heart Score 2. Pain only when coughing and reproducible. First troponin negative. Second troponin ordered and pending HTN- Continue Home medication Norvasc. RAOUL- Improved since last admission. Half bolus IV NS ordered. Will avoid nephrotoxic medications. Microcytic Anemia- Chronic. Continue home medication ferrous sulfate daily. Prophylaxis- Heparin 5000 units SQ Q8H Disposition- Med Surg. ID and Pulmonology consult placed Case discussed with medical team and attending full H&P to follow Visit type - Emergency Visit Emergency Visit: Yes ED Registration Date: 03/23/17 Care time: The patient presented to the Emergency Department on the above date and was hospitalized for further evaluation of their emergent condition. - New Patient This patient is new to me today: Yes Date on this admission: 03/24/17 - Critical Care Critical Care patient: No
[2017-03-23] MEDS ORDERED: CEFTRIAXONE 50 ML ONE (22:07)
--- NOTE | 2017-03-23 22:27 | PN ---
Teaching Attending Note Name of Resident: Jessica Trevino ATTENDING PHYSICIAN STATEMENT I saw and evaluated the patient. I reviewed the resident's note and discussed the case with the resident. I agree with the resident's findings and plan as documented. SUBJECTIVE: 55 F with pmhx of COPD(on 2L) with hx of COPD/bronchiectasis, prior smokee, polysubstance abuse, and htn who presents with worsening shortness of breath. Recently admitted on 03/11 and discharged on 03/16/17 for COPD exacerbation. Pt. was placed on a Prednisone taper at that time for a 16 day course. During pt.s last hospital stay she was given a full course of Levaquin. States her shortness of breath is improved. OBJECTIVE: Physical: VS: Vital Signs Period Temp Pulse Resp BP Sys/Echevarria Pulse Ox Last 24 Hr 98.2 F 82-130 16-24 121-207/61-102 89-98 GEN: NAD, resting in bed, able to speak full sentences HEENT: NCAT, PERRL CARD: S tach S1, S2 RESP: Bilateral coarse expiratory wheeze ABD: BS X4, NTD to palpation EXT: - C/C/E CBCD WBC 24.9 K/mm3 (4.0-10.0) H D 03/23/17 19:05 RBC 5.54 M/mm3 (3.60-5.2) H 03/23/17 19:05 Hgb 12.1 GM/dL (10.7-15.3) 03/23/17 19:05 Hct 39.0 % (32.4-45.2) 03/23/17 19:05 MCV 70.4 fl (80-96) L 03/23/17 19:05 MCHC 30.9 g/dl (32.0-36.0) L 03/23/17 19:05 RDW 16.8 % (11.6-15.6) H 03/23/17 19:05 Plt Count 198 K/MM3 (134-434) 03/23/17 19:05 MPV 9.1 fl (7.5-11.1) 03/23/17 19:05 CMP Sodium 139 mmol/L (136-145) 03/23/17 19:05 Potassium 4.3 mmol/L (3.5-5.1) 03/23/17 19:05 Chloride 102 mmol/L (98-107) 03/23/17 19:05 Carbon Dioxide 31 mmol/L (21-32) 03/23/17 19:05 Anion Gap 6 (8-16) L 03/23/17 19:05 BUN 29 mg/dL (7-18) H D 03/23/17 19:05 Creatinine 1.2 mg/dL (0.55-1.02) H D 03/23/17 19:05 Creat Clearance w eGFR 46.14 (>60) 03/23/17 19:05 Random Glucose 96 mg/dL (74-106) D 03/23/17 19:05 Calcium 8.7 mg/dL (8.5-10.1) 03/23/17 19:05 Total Bilirubin 0.3 mg/dL (0.2-1.0) D 03/23/17 19:05 AST 12 U/L (15-37) L 03/23/17 19:05 ALT 23 U/L (12-78) D 03/23/17 19:05 Alkaline Phosphatase 87 U/L (45-117) 03/23/17 19:05 Total Protein 7.3 g/dl (6.4-8.2) 03/23/17 19:05 Albumin 3.1 g/dl (3.4-5.0) L 03/23/17 19:05 CARDIAC ENZYMES Creatine Kinase 52 IU/L (26-192) 03/23/17 19:05 Troponin I < 0.02 ng/ml (0.00-0.05) 03/23/17 19:05 CXR- Bilateral infilterates ASSESSMENT AND PLAN: 57 F with pmhx of COPD(On home 02)/Bronchiectasis, former smoker, polysubstance abuse and htn who presents with shortness of breath found to be septic secondary to pneumonia and to be in COPD Exacerbation 1.) Sepsis secondary to pneumonia HCAP - [place] Cx - [place] - Add Vancomycin, S/P Ceftriaxone and Azithromycin in ED - Urine legionella/pneumococcall - ID consult 2.) COPD Exacerbation - Duonebs ATC/PRN - C/w Home meds - Keep 02>90% - Solumedrol - FS/RAISS 3.) Chest Pain- Atypical - Heart2 - Trend Trop/EKG 4.) HTN - C/w Home meds 5.) RAOUL - Improved since admission - Avoid nephrotoxins 6.) Dvt Ppx - Heparin [address] in Med-Sx
[2017-03-24] MEDS ORDERED: VANCOMYCIN 1 GRAM (PRE-DOCKED) 250 ML IVPB STA (00:47)
[2017-03-24] MEDS ORDERED: ALBUTEROL SO4 2.5/IPRATROPIUM 0.5 INH SOL 3 ML VIAL.NEB. NEB PRN (01:13)
[2017-03-24] MEDS ORDERED: SODIUM CHLORIDE 500 ML IV STA ×2 (01:39→07:08)
[2017-03-24] MEDS: HEPARIN NA (PORCINE) 5,000 UNITS/ML 1ML VIAL SQ SCH ×3 (01:41→18:25)
--- NOTE | 2017-03-24 02:07 | HP ---
CHIEF COMPLAINT: SOB, chest tightness PCP: Dr. Marija Aguilar MD HISTORY OF PRESENT ILLNESS: Patient is a 57yo woman who is a former smoker with 45pack year hx and PMH of asthma (dx 2003), COPD on 2L home O2 with multiple recent admissions for exacerbation, and HTN who was BIBEMS for increased SOB and chest tightness. She was lasted admitted here on 03/10-03/16 for acute COPD exacerbation, treated with methylprednisolone IV and levaquin, and discharged on home O2 and a 16 day steroid taper. Since discharge she was at her baseline state of health when this afternoon while attending a BBQ she experienced acute onset dyspnea, chest tightness, and chest pain over her sternum. The chest pain was non-radiating, 6/ 10 pain with no aggravating factors. She stated "few sips of cold water" helped relieve the chest pain. She denies recent sick contacts, fever, chills, nausea, vomiting, changes in appetite or weight. She denies heart palpitations, dizziness, weakness, muscle pain or aches. She denies cough, but was noted to be coughing while in the ED. Initial VS in the ED were T 98F, HR 130, BP 121/61, RR 24, SpO2 89% on 2L NC. While in the ED, in addition to being hypoxic despite O2 supplementation, she was observed to be in moderate respiratory distress requiring accessory respiratory muscle use. She was given magnesium sulfate 2 gm IVPB for possible asthma exacerbation in addition to Albuterol neb 1 amp and methylnedisolone 125mg IVPB. Her SpO2 saturation, tachynpea, and tachycardia improved. Labs revealed leukocytosis (WBC 24.9 with 67% PMNs) and CXR showed bibasilar infiltrates c/w PNA. She was admitted to Med/Surg for sepsis vs severe sepsis ( pending lactic acid) 2/2 PNA. PAST MEDICAL HISTORY: #COPD: multiple admissions, on home 2L O2 for past month #Asthma: dx 2003, no h/o intubations #HTN: controlled with Amlodipine 5mg PO daily #Polysubstance abuse: Alcohol and crack cocaine abuse PAST SURGICAL HISTORY: none Social History: Smoking: quite 2y ago, 45 pack years Alcohol: Social Drugs: Former crack cocaine abuser; no substance abuse for past 5y Family History: mother and father - kidney failure requiring HD Allergies: black walnut Allergy (Severe, Verified 03/23/17 18:52) Hives pt states she is not allergic to black walnuts sulfamethoxazole [From Bactrim] Allergy (Severe, Verified 03/23/17 18:52) Swelling trimethoprim [From Bactrim] Allergy (Severe, Verified 03/23/17 18:52) Swelling PECAN Allergy (Severe, Uncoded 03/23/17 18:52) Hives pt states she is not allergic to PECANS HOME MEDICATIONS: Home Medications Medication Instructions Recorded Albuterol 0.083% Nebulizer Destiny 1 amp NEB Q4H PRN #0 amp 09/25/16 [Ventolin 0.083% Nebulizer Soln -] Ferrous Sulfate [Feosol] 325 mg PO DAILY #30 cap 03/09/17 Umeclidinium [place] [Incruse 62.5 mcg IH DAILY 03/10/17 Ellipta] Amlodipine Besylate [Norvasc -] 5 mg PO DAILY tablet 03/16/17 Hydroxyzine Pamoate [Vistaril -] 25 mg PO DAILY #30 cap 03/16/17 Prednisone [Deltasone -] 20 mg PO BID 03/23/17 Prednisone [Deltasone -] 10 mg PO DIAILY 03/23/17 REVIEW OF SYSTEMS CONSTITUTIONAL: Absent: fever, chills, diaphoresis, generalized weakness, malaise, loss of appetite, weight change HEENT: Absent: rhinorrhea, nasal congestion, throat pain, throat swelling, difficulty swallowing, mouth swelling, ear pain, eye pain, visual changes CARDIOVASCULAR: +chest pain Absent: syncope, palpitations, irregular heart rate, lightheadedness, peripheral edema RESPIRATORY: +cough, shortness of breath, dyspnea, wheezing Absent: orthopnea, stridor, hemoptysis GASTROINTESTINAL: abdominal pain Absent: abdominal distension, nausea, vomiting, diarrhea, constipation, melena, hematochezia GENITOURINARY: Absent: dysuria, frequency, urgency, hesitancy, hematuria, flank pain, genital pain MUSCULOSKELETAL: Absent: myalgia, arthralgia, joint swelling, back pain, neck pain SKIN: Absent: rash, itching, pallor HEMATOLOGIC/IMMUNOLOGIC: Absent: easy bleeding, easy bruising, lymphadenopathy, frequent infections ENDOCRINE: Absent: unexplained weight gain, unexplained weight loss, heat intolerance, cold intolerance NEUROLOGIC: Absent: headache, focal weakness or paresthesias, dizziness, unsteady gait, seizure, mental status changes, bladder or bowel incontinence PSYCHIATRIC: +anxiety Absent: depression, suicidal or homicidal ideation, hallucinations. PHYSICAL EXAMINATION Initial Vital Signs Temp Pulse Resp BP Pulse Ox 98.2 F 130 H 24 121/61 89 L 03/23/17 18:51 03/23/17 18:51 03/23/17 18:51 03/23/17 21:00 03/23/17 18:51 GENERAL: Awake, alert, and fully oriented, no apparent distress, able to speak in full sentences with occasional cough HEAD: Normal with no signs of trauma. EYES: Pupils equal, round and reactive to light, extraocular movements intact, sclera anicteric, conjunctiva clear. EARS, NOSE, THROAT: Oropharynx clear without exudates. Moist mucous membranes. NECK: Normal range of motion, supple without lymphadenopathy, JVD, or masses. LUNGS: b/l expiratory wheezing and rhoncerous breathe sounds. No accessory muscle use. HEART: Tachycardia, normal S1 and S2 without murmur, rub or gallop. ABDOMEN: Soft, nontender, not distended, normoactive bowel sounds, no guarding, no rebound, no masses. No hepatomegaly or splenomegaly. MUSCULOSKELETAL: tenderness to palpation over sternum UPPER EXTREMITIES: 2+ pulses, warm, well-perfused. No peripheral edema. LOWER EXTREMITIES: 2+ pulses, warm, well-perfused. No calf tenderness. No peripheral edema. NEUROLOGICAL: Grossly intact, but not formally tested PSYCHIATRIC: Cooperative. Good eye contact. Appropriate mood and affect. SKIN: Warm, dry, normal turgor, no rashes or lesions noted Laboratory Last Values WBC 24.9 K/mm3 (4.0-10.0) H D 03/23/17 19:05 RBC 5.54 M/mm3 (3.60-5.2) H 03/23/17 19:05 Hgb 12.1 GM/dL (10.7-15.3) 03/23/17 19:05 Hct 39.0 % (32.4-45.2) 03/23/17 19:05 MCV 70.4 fl (80-96) L 03/23/17 19:05 MCHC 30.9 g/dl (32.0-36.0) L 03/23/17 19:05 RDW 16.8 % (11.6-15.6) H 03/23/17 19:05 Plt Count 198 K/MM3 (134-434) 03/23/17 19:05 MPV 9.1 fl (7.5-11.1) 03/23/17 19:05 Neutrophils % 67.0 % (42.8-82.8) 03/23/17 19:05 Lymphocytes % 17.0 % (8-40) 03/23/17 19:05 Monocytes % 11.0 % (3.8-10.2) H D 03/23/17 19:05 Band Neutrophils 2.0 % (0-10) D 03/23/17 19:05 Nucleated RBCs 1 % (0-0) H 03/23/17 19:05 Differential Comment Manual diff done 03/23/17 19:05 Reactive Lymphocytes 3 % (0-80) D 03/23/17 19:05 Platelet Estimate Adequate 03/23/17 19:05 Platelet Comment Few large plts 03/23/17 19:05 Hypochromic-Microcytic 2+ 03/23/17 19:05 Poikilocytosis 1+ 03/23/17 19:05 Target Cells Rare 03/23/17 19:05 Ovalocytes 1+ 03/23/17 19:05 Morphology Comment Slide scanned 03/23/17 19:05 Sodium 139 mmol/L (136-145) 03/23/17 19:05 Potassium 4.3 mmol/L (3.5-5.1) 03/23/17 19:05 Chloride 102 mmol/L (98-107) 03/23/17 19:05 Carbon Dioxide 31 mmol/L (21-32) 03/23/17 19:05 Anion Gap 6 (8-16) L 03/23/17 19:05 BUN 29 mg/dL (7-18) H D 03/23/17 19:05 Creatinine 1.2 mg/dL (0.55-1.02) H D 03/23/17 19:05 Creat Clearance w eGFR 46.14 (>60) 03/23/17 19:05 Random Glucose 96 mg/dL (74-106) D 03/23/17 19:05 Lactic Acid 2.9 mmol/L (0.4-2.0) H* 03/24/17 00:38 Calcium 8.7 mg/dL (8.5-10.1) 03/23/17 19:05 Total Bilirubin 0.3 mg/dL (0.2-1.0) D 03/23/17 19:05 AST 12 U/L (15-37) L 03/23/17 19:05 ALT 23 U/L (12-78) D 03/23/17 19:05 Alkaline Phosphatase 87 U/L (45-117) 03/23/17 19:05 Creatine Kinase 52 IU/L (26-192) 03/23/17 19:05 Troponin I < 0.02 ng/ml (0.00-0.05) 03/23/17 19:05 Total Protein 7.3 g/dl (6.4-8.2) 03/23/17 19:05 Albumin 3.1 g/dl (3.4-5.0) L 03/23/17 19:05 IMAGING: CXR (03/23/2017): "THIS IS A PRELIMINARY REPORT FROM [facility] EXAM: Portable chest x-ray IMAGES: 2 DATE OF SERVICE: 2017-03-23 19:05:05.0 REASON FOR EXAM: Wheezing, rule out infiltrate COMPARISON: None FINDINGS: The heart size is normal. Streaky infiltrate is noted in both lower lobes, left greater than right. There is no obvious pneumothorax. THIS DOCUMENT HAS BEEN ELECTRONICALLY SIGNED Artie Sanches MD 03/23/2017 20:33 ARUN Sauceda Please call Imaging Supervisor [employer] [phone]) with questions" EKG (03/23/2017): Sinus tachycardia 137bpm, frequent PVCs, biatrial enlargement ASSESSMENT/PLAN: 57yo former heavy smoker -[place] woman who has a PMH of COPD on home 2L O2 with multiple recent exacerbations (last admission 03/10-), asthma, and HTN who presents with severe sepsis 2/2 hospital acquired PNA and likely COPD exacerbation. #severe sepsis 2/2 hospital associated PNA: Meets criteria with tachypnea, tachycardia, elevated lactic acid (2.9) and pulmonary infection source. -Blood culture pending -Sputum culture pending -Urinalysis to assess for additional infection source -Urine Legionella Ag. If positive should increase Azithromycin to 1gm IVPB -Trend lactic acid -Vancomycin 1 gm IVPB for MRSA coverage: 1st dose given 03/23. Measure Vanc trough after 4th dose with target serum concentration 15-20mcg/mL or drawn sooner if rise in Cr -ID consulted (Dr. Donovan) for Vancomycin approval -Azithromycin 500 gm IVPB for atypical converage; 1st dose given 03/23 -Ceftriaxone 1gm IVPB for gram negative coverage; 1st dose given 03/23 #COPD exacerbation -Duoneb (Ipatropium/Albuterol) 1 amp TID -Duoneb (Ipatropium/Albuterol) 1 amp q4h PRN -Continue home Umeclidinium bromide 62.5mg IH daily -Methyprednisolone 60mg IVPB BID for acute exacerbation --> BGM q4h, ISS ordered -Hold home prednisone taper -Hold home hydroxyzine -Pulmonology consulted (Dr. Carty): appreciate recommendations #Chest pain: atypical, non-radiating and reproducible with sternal palpation -Trend troponin (1st value neg, 2nd value pending) -Repeat EKG if 2nd troponin is elevated #HTN -Continue home amlodipine 5 gm PO daily #F/E/N -500cc NS bolus for elevated lactic acid -Monitor electrolytes -Na restricted diet #DVT prophylaxis - restricted mobility 2/2 dyspnea -Heparin 5000 Units SQ daily -No GI ppx indicated d/w team. Brenda Ponce MD Visit type - Emergency Visit Emergency Visit: Yes ED Registration Date: 03/23/17 Care time: The patient presented to the Emergency Department on the above date and was hospitalized for further evaluation of their emergent condition. - New Patient This patient is new to me today: Yes Date on this admission: 03/24/17 - Critical Care Critical Care patient: No
[2017-03-24 02:25] VITALS: BMI 28.5
[2017-03-24] MEDS: INSULIN SLIDING SCALE (NOVOLOG) 1 VIAL SQ SCH ×4 (06:42→22:38)
[2017-03-24] MEDS: ALBUTEROL SO4 2.5/IPRATROPIUM 0.5 INH SOL 3 ML VIAL.NEB. NEB SCH ×4 (06:54→23:06)
[2017-03-24 07:26] LABS: ARTERIAL BLD GAS O2 SATURATION 97.4 % (90-98.9); ARTERIAL BLOOD GAS BASE EXCESS 2.9 meq/l (-2-2); ARTERIAL BLOOD GAS HCO3 28.8 meq/L (22-26); ARTERIAL BLOOD GAS PO2 88.1 mmHg (80-100); ARTERIAL BLOOD GAS pH 7.35 (7.35-7.45)
[2017-03-24 07:28] LABS: ALLENS TEST POSITIVE; ART PUNCT SITE RIGHT RADIAL; LPM/O2% 2L; PT. ON O2? YES
[2017-03-24 07:39] LABS: MCH 22.3 pg (25.7-33.7); MCHC 31.4 g/dl (32.0-36.0); MEAN PLT VOLUME 8.7 fl (7.5-11.1); PLATELET COUNT 141 K/MM3 (134-434); RDW 16.8 % (11.6-15.6); WHITE BLOOD COUNT 21.3 K/mm3 (4.0-10.0)
[2017-03-24 07:47] LABS: ANION GAP 7 (8-16); CALCIUM 8.1 mg/dL (8.5-10.1); CO2 31 mmol/L (21-32); CREATININE 1.3 mg/dL (0.55-1.02); GLUCOSE,RANDOM 137 mg/dL (74-106)
[2017-03-24] MEDS ORDERED: methylPREDNISolone NA SUCC 40 MG/1 ML VIAL IVPB SCH (10:00)
[2017-03-24] MEDS ORDERED: CEFTRIAXONE 50 ML IVPB SCH (10:00)
[2017-03-24] MEDS ORDERED: PATIENT'S OWN MEDICATION (NON-FORMULARY) (Umeclidinium Bromide [Incruse Ellipta] 62.5 MCG) IH SCH (10:00)
--- NOTE | 2017-03-24 10:42 | EKG ---
Test Reason : Blood Pressure : / mmHG Vent. Rate : 137 BPM Atrial Rate : 137 BPM P-R Int : 120 ms QRS Dur : 066 ms QT Int : 296 ms P-R-T Axes : 082 062 070 degrees QTc Int : 446 ms SINUS TACHYCARDIA WITH FREQUENT PREMATURE VENTRICULAR COMPLEXES BIATRIAL ENLARGEMENT ABNORMAL ECG WHEN COMPARED WITH ECG OF 08-MAR-2017 23:02, PREMATURE VENTRICULAR COMPLEXES ARE NOW PRESENT T WAVE AMPLITUDE HAS INCREASED IN INFERIOR LEADS Confirmed by TORREY BORREGO, INNA ([id number]) on 03/24/2017 10:42:38 AM Referred By: Confirmed By:INNA HIRSCH MD
--- NOTE | 2017-03-24 11:06 | CONSULT ---
Consult Consult Specialty:: Infectious Disease Reason for Consultation:: Likely bilateral pnemonia in background COPD for Vancomycin therapy - History of Present Illness Chief Complaint: Chest pain and Shortness of breath 2 days prior to presentation History of Present Illness: Patient is a known asthmatic, with COPD on 2 L of home nightly oxygen who was last admitted about 10 days ago for similar symptoms and discharged on tapered steroids.There is associated mid line chest pain that was initially a 10/10 and is currently 7/10. Both the SOB and chest pain are worsened by "activity" and relieved by rest. She says the chest pain is also relieved by food. There is associated cough but no fever. She denies sputum production. 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 No: Previously Intubated, Pulmonary Embolus , Sleep Apnea Hepatobiliary: Yes: Other (Fatty liver) ...LMP: 05/18/11 ...: No - Past Surgical History Past Surgical History: Yes: None - Alcohol/Substance Use Hx Alcohol Use: No History of Substance Use: reports: None - Smoking History Smoking history: Former smoker Have you smoked in the past 12 months: No Aproximately how many cigarettes per day: 0 If you are a former smoker, when did you quit?: 1 year ago - Social History Usual Living Arrangement: With Parent ADL: Independent History of Recent Travel: No Home Medications - Allergies Allergies/Adverse Reactions: Allergies Allergy/AdvReac Type Severity Reaction Status Date / Time black walnut Allergy Severe Hives Verified 03/23/17 18:52 sulfamethoxazole Allergy Severe Swelling Verified 03/23/17 18:52 [From Bactrim] trimethoprim [From Bactrim] Allergy Severe Swelling Verified 03/23/17 18:52 PECAN Allergy Severe Hives Uncoded 03/23/17 18:52 - Home Medications Home Medications: Ambulatory Orders Albuterol 0.083% Nebulizer Destiny [Ventolin 0.083% Nebulizer Soln -] 1 amp NEB Q4H PRN #0 amp 09/25/16 Ferrous Sulfate [Feosol] 325 mg PO DAILY #30 cap 03/09/17 Hydroxyzine HCl 0 mg PO DAILY PRN 03/10/17 Umeclidinium [place] [Incruse Ellipta] 62.5 mcg IH DAILY 03/10/17 Albuterol 0.083% Nebulizer Destiny [Ventolin 0.083% Nebulizer Soln -] 1 amp NEB Q4H PRN #0 amp 03/16/17 Amlodipine Besylate [Norvasc -] 5 mg PO DAILY tablet 03/16/17 Hydroxyzine Pamoate [Vistaril -] 25 mg PO DAILY #30 cap 03/16/17 Prednisone [Deltasone -] 10 mg PO BID #64 tablet 03/16/17 Salmeterol/Fluticasone [Advair 100Mcg/50Mcg -] 1 puff IH BID #60 inhaler Review of Systems - Review of Systems Constitutional: denies: Chills, Diaphoresis, Fever, Loss of Appetite, Night Sweats, Unintentional Wgt. Loss Eyes: denies: Blurred Vision, Double Vision, Recent Change in Vision HENT: denies: Difficult Swallowing, Ear Discharge, Throat Pain Neck: denies: Stiffness, Swollen Glands Cardiovascular: reports: Chest Pain, Shortness of Breath Respiratory: reports: Cough, SOB, Wheezing Gastrointestinal: denies: Dysphagia, Nausea, Vomiting Genitourinary: denies: Burning, Dysuria, Flank Pain Musculoskeletal: denies: Extremity Pain Integumentary: denies: Pallor, Rash Neurological: denies: Confusion, Dizziness Psychiatric: reports: Anxiety. denies: Altered Sleep Pattern Physical Exam Vital Signs: Vital Signs Temperature 98 F 03/24/17 06:46 Pulse Rate 72 03/24/17 07:03 Respiratory Rate 20 03/24/17 06:46 Blood Pressure 102/85 03/24/17 06:46 O2 Sat by Pulse Oximetry (%) 98 03/24/17 07:03 Constitutional: Yes: Moderate Distress Eyes: Yes: PERRL. No: Sclera Icterus HENT: No: Drooling, Hoarseness, Pharyngeal Erythema, Rhinnorhea, Thrush Neck: Yes: Supple. No: Tenderness Cardiovascular: Yes: Regular Rate and Rhythm, Tachycardia, S1, S2. No: Murmur Respiratory: Yes: Accessory Muscle Use, Cough, On Nasal O2, Rhonchi, SOB on Exertion, Wheezes Gastrointestinal: Yes: Abdomen, Obese. No: Ascites, Vomiting ...Rectal Exam: Yes: Deferred Renal/: No: CVA Tenderness - Left, CVA Tenderness - Right Musculoskeletal: No: Back Pain, Muscle Weakness Extremities: No: Delayed Capillary Refill, Pallor Edema: No Peripheral Pulses WNL: Yes (dorsalis pedis palpable bilaterally) Integumentary: No: Erythema, Jaundice, Rash Neurological: Yes: Alert, Oriented. No: Confusion, Pre-Existing Deficit Psychiatric: Yes: Alert, Oriented Labs: CBC, BMP 03/24/17 06:00 03/24/17 06:00 Imaging - Results Chest X-ray: Report Reviewed X-ray: Pending, Report Reviewed, Image Reviewed, Other Problem List - Problems (1) Supplemental oxygen dependent Code(s): Z99.81 - DEPENDENCE ON SUPPLEMENTAL OXYGEN (2) COPD exacerbation Code(s): J44.1 - CHRONIC OBSTRUCTIVE PULMONARY DISEASE W (ACUTE) EXACERBATION (3) Shortness of breath Code(s): R06.02 - SHORTNESS OF BREATH (4) Pulmonary hypertension Code(s): I27.2 - OTHER SECONDARY PULMONARY HYPERTENSION Assessment/Plan Recurrent COPD exacerbation despite steroid treatment and oxygen supplementation Prior diagnosis of pulmonary hypertension on previous imaging with underlying HTN absence of fever at home productive cough Plan: echocardiography sputum culture withhold vancomycin Continue zosyn and azithromycin Visit type - Emergency Visit Emergency Visit: No - New Patient This patient is new to me today: Yes Date on this admission: 03/24/17 - Critical Care Critical Care patient: No
[2017-03-24] MEDS: FERROUS SO4 325 MG TABLET (FP) PO SCH (11:09)
[2017-03-24] MEDS: AZITHROMYCIN IVPB 250 ML IVPB SCH (11:33)
--- NOTE | 2017-03-24 12:09 | CONSULT ---
Consultation: REQUESTING PROVIDER: CONSULT REQUEST: We have been asked to medically evaluate this patient for suspected COPD exacerbation/PNA. Chief Complaint: "Couldn't breathe" HISTORY OF PRESENT ILLNESS: Source: Patient, Prior notes Patient is a 57 year old woman with a pmh of asthma (2003), multiple COPD exacerbations w/ admissions, HTN and 45 pack year smoking hx, who was BIBEMS for SOB and chest pain/tightness. Pt was previously admitted from 03/10-03/16 for a recent COPD exacerbation, treated and improving with methylprednisolone IV and levaquin and discharged on home O2 and 2 week steroid taper. Pt was in this state of health when she attended a family BBQ and felt the need to sit down and was noted by family to have increased WOB. Pt endorsed acute dyspnea, SOB and chest tightness at this time. Chest pain was nonradiating and with no aggravating factors, mildly relieved with few sips of water. Pt was then brought in by EMS. She denies any palpitations, dizziness, fever, nausea, vomiting, change in weight or appetite. She denies any recent travel, sick contacts, exposure to allergens, recent drug or tobacco use. She also endorsed mild fatigue, non-productive cough of a few weeks duration. Vitals in ED were T98, HR 130, BP 121/61, RR24 Spo2 89% on 2L NC. Course notable for hypoxia despite O2 supp, and moderate respiratory distress using accessory muscles. Received Mag Sulfate 2gm IV, Albuterol neb 1 amp and methlprednisolone 125 IVPB. Her respiratory status improved. Labs significant for leukocytosis (WBC 24.9 and 67% polys) and CXR with bibasilar infiltrates suggestive of PNA. Pt has been hospitalized multiple times for COPD exacerbations (every two months or so), which have become more frequent over the last year. PMHx COPD - multiple admission, home o2 2L Asthma - dx 2003, no intubations, currently on albuterol/prednisone HTN - taking amlodipine 5mg PO day PSA - Alcohol and crack cocaine. Denies current use PSHx None Family Hx Both parents with renal failure requiring HD Allergies Black walnut - Hives Bactrim - Swelling Pecan - Hives Social Hx Alcohol - social drinker Drugs - Prior crack cocaine abuse. No abuse for last 5 years Smoking - 45 pack years hx. Quit 2 years ago. REVIEW OF SYSTEMS: CONSTITUTIONAL: Endorses mild weakness. Absent: fever, chills, diaphoresis, malaise, loss of appetite, weight change. HEENT: Absent: rhinorrhea, nasal congestion, throat pain, throat swelling, difficulty swallowing, mouth swelling, visual changes CARDIOVASCULAR: Chest pain/tightness. Absent: Syncope, palpitations, irregular heart rate, lightheadedness, peripheral edema RESPIRATORY: cough, shortness of breath, wheezing. Absent: Dyspnea with exertion, orthopnea, stridor, hemoptysis GASTROINTESTINAL: Absent: abdominal pain, abdominal distension, nausea, vomiting, diarrhea, constipation, melena, hematochezia GENITOURINARY: Absent: dysuria, frequency, urgency, hesitancy, hematuria, flank pain, genital pain MUSCULOSKELETAL: Bilateral hand cramping Absent: myalgia, arthralgia, joint swelling, back pain, neck pain SKIN: Absent: rash, itching, pallor HEMATOLOGIC/IMMUNOLOGIC: Absent: easy bleeding, easy bruising, lymphadenopathy, frequent infections ENDOCRINE: Absent: unexplained weight gain, unexplained weight loss, heat intolerance, cold intolerance NEUROLOGIC: Absent: headache, focal weakness or paresthesias, dizziness, bladder or bowel incontinence PSYCHIATRIC: Absent: anxiety, depression, suicidal or homicidal ideation, hallucinations. PHYSICAL EXAMINATION Vital Signs - 24 hr 03/24/17 03/24/17 03/24/17 00:20 01:15 05:47 Temperature 98.7 F 97.8 F Pulse Rate 102 H 66 Respiratory 16 24 Rate Blood Pressure 134/69 98/45 O2 Sat by Pulse 94 L 94 L Oximetry (%) 03/24/17 03/24/17 06:46 07:03 Temperature 98 F Pulse Rate 74 72 Respiratory 20 Rate Blood Pressure 102/85 O2 Sat by Pulse 98 Oximetry (%) GENERAL: Awake, alert, and fully oriented, in no acute distress. HEAD: Normal with no signs of trauma. Poor dentition. EYES: Pupils equal, round and reactive to light, extraocular movements intact, sclera anicteric, conjunctiva clear. No lid lag. EARS, NOSE, THROAT: Ears normal, nares patent, oropharynx clear without exudates. Moist mucous membranes. NECK: Normal range of motion, supple without lymphadenopathy, JVD, or masses. Possible thyromegaly. LUNGS: Faint bibasilar rhonchi, with mild midline expiratory wheeze. No accessory muscle use. HEART: Regular rate and rhythm, normal S1 and S2 without murmur, rub or gallop. ABDOMEN: Soft, nontender, not distended, normoactive bowel sounds, no guarding, no rebound, no masses. No hepatomegaly or splenomegaly. Marked abdominal distension. MUSCULOSKELETAL: Normal range of motion at all joints. No bony deformities or tenderness. UPPER EXTREMITIES: 2+ pulses, warm, well-perfused. No cyanosis. No clubbing. Cap refill <2 seconds. No peripheral edema. LOWER EXTREMITIES: 2+ pulses, warm, well-perfused. No calf tenderness. No peripheral edema. NEUROLOGICAL: Cranial nerves II-XII intact. Normal speech. Normal gait. PSYCHIATRIC: Cooperative. Good eye contact. Appropriate mood and affect. SKIN: Warm, dry, normal turgor, no rashes or lesions noted. Laboratory Results - last 24 hr 03/24/17 03/24/17 03/24/17 00:38 04:35 04:35 WBC RBC Hgb Hct MCV MCHC RDW Plt Count MPV Puncture Site ABG pH ABG pCO2 at Pt Temp ABG pO2 at Pt Temp ABG HCO3 ABG O2 Sat (Measured) ABG O2 Content ABG Base Excess Timmy Test O2 Delivery Device Oxygen Flow Rate PEEP Sodium Potassium Chloride Carbon Dioxide Anion Gap BUN Creatinine POC Glucometer Random Glucose Lactic Acid 2.9 H* 1.7 Calcium Troponin I < 0.02 03/24/17 03/24/17 03/24/17 06:00 06:00 06:41 WBC 21.3 H RBC 4.66 Hgb 10.4 L D Hct 33.1 D MCV 71.0 L MCHC 31.4 L RDW 16.8 H Plt Count 141 D MPV 8.7 Puncture Site ABG pH ABG pCO2 at Pt Temp ABG pO2 at Pt Temp ABG HCO3 ABG O2 Sat (Measured) ABG O2 Content ABG Base Excess Timmy Test O2 Delivery Device Oxygen Flow Rate PEEP Sodium 140 Potassium 4.7 Chloride 102 Carbon Dioxide 31 Anion Gap 7 L BUN 33 H Creatinine 1.3 H POC Glucometer 132 Random Glucose 137 H D Lactic Acid Calcium 8.1 L Troponin I 03/24/17 07:15 WBC RBC Hgb Hct MCV MCHC RDW Plt Count MPV Puncture Site Right radial ABG pH 7.35 ABG pCO2 at Pt Temp 53.8 H ABG pO2 at Pt Temp 88.1 D ABG HCO3 28.8 H ABG O2 Sat (Measured) 97.4 ABG O2 Content 13.7 L ABG Base Excess 2.9 H Timmy Test Positive O2 Delivery Device Masal Oxygen Flow Rate 2l PEEP 0.0 Sodium Potassium Chloride Carbon Dioxide Anion Gap BUN Creatinine POC Glucometer Random Glucose Lactic Acid Calcium Troponin I Active Medications Generic Name Dose Route Start Last Admin Trade Name Freq PRN Reason Stop Dose Admin Albuterol/Ipratropium 1 amp 03/24/17 06:00 03/24/17 06:54 Duoneb - NEB 1 amp TIDR ZACHARY Administration Albuterol/Ipratropium 1 amp 03/24/17 01:13 Duoneb - NEB Q4H PRN SHORTNESS OF BREATH Amlodipine Besylate 5 mg 03/24/17 10:00 Norvasc - PO DAILY ZACHARY Ferrous Sulfate 325 mg 03/24/17 10:00 03/24/17 11:09 Feosol - PO 325 mg DAILY ZACHARY Administration Heparin Sodium (Porcine) 5,000 unit 03/24/17 02:00 03/24/17 11:09 Heparin - SQ 5,000 unit Q8H-IV ZACHARY Administration Ceftriaxone Sodium 50 mls @ 100 mls/hr 03/24/17 10:00 03/24/17 10:27 Rocephin 1gm Ivpb (Pre-Docked) IVPB 100 mls/hr DAILY ZACHARY Administration Azithromycin 250 mls @ 250 mls/hr 03/24/17 10:00 03/24/17 11:33 Zithromax 500mg Ivpb (Pre-Docked) IVPB 250 mls/hr DAILY ZACHARY Administration Insulin Aspart 1 vial 03/24/17 07:00 03/24/17 11:47 Novolog Vial Sliding Scale - SQ 2 units ACHS ZACHARY Administration Protocol Methylprednisolone Sodium Succinate 60 mg 03/24/17 10:00 03/24/17 11:05 Solu-Medrol - IVPB 60 mg BID ZACHARY Administration Non-Formulary Medication 62.5 mcg 03/24/17 10:00 Umeclidinium [place] [Incruse Ellipta] IH DAILY ZACHARY ASSESSMENT/PLAN: Impression: 57 yo woman w. pmh of asthma, multiple hospital admissions for COPD exacerbation , 45 py smoking hx, who presented on 03/23 to the ED in acute hypoxic respiratory failure likely due to COPD exacerbation brought on by recent URI/PNA. Pt exam notable for mild bibasilar rhonchi and expiratory wheeze, no peripheral edema and afebrile status. Labs notable for elevated WBC (~24) and elevated lactate ( 2.9) on admission. CXR w/ bibasilar lower lobe infiltrates. Likely diagnosis includes acute on chronic COPD exacerbation due to developing possible HCAP, however patient presents complicated infectious picture due to recent steroid use and nontoxic appearance. Plan: #COPD Exacerbation - Continue O2 support 2L NC. Titrate as needed - Roflumilast 500 mcg PO daily - Duoneb 1amp QIDR - Methylpredisolone 40 mg IV q8h - Albuterol 1 amp Q1H PRN - Pulse Ox for O2 sat. Monitor for further decompensation #PNA/sepsis - Trend lactate - Azithro 500 mg, Zosyn 3.375 q8h - F/u blood, sputum Cx - UA, Legionella and Strep pneumo Ag Dispo: We will continue to follow the patient. Thank you for this consultative opportunity. Timothy Matta MD, PGY1 Discussed plan with attending, Dr. Apple Problem List - Problems (1) COPD exacerbation Code(s): J44.1 - CHRONIC OBSTRUCTIVE PULMONARY DISEASE W (ACUTE) EXACERBATION (2) Chronic respiratory failure with hypoxia Code(s): J96.11 - CHRONIC RESPIRATORY FAILURE WITH HYPOXIA Visit type - Emergency Visit Emergency Visit: No - New Patient This patient is new to me today: No - Critical Care Critical Care patient: No
[2017-03-24] MEDS: amLODIPine BESYLATE 5 MG TABLET (FP) PO SCH (12:18)
--- NOTE | 2017-03-24 13:07 | PN ---
Teaching Attending Note Name of Resident: Lanette Hook ATTENDING PHYSICIAN STATEMENT I saw and evaluated the patient. I reviewed the resident's note and discussed the case with the resident. I agree with the resident's findings and plan as documented. SUBJECTIVE: still wheezing and sob no fevers at home unable to expectorate no nausea or vomiting no diarrhea recently hospitalized 03/10 to 03/16 for copd exacerbation received levaquin 03/10 to 03/15 , discharged on prednisone taper, still taking prednisone OBJECTIVE: Vital Signs Period Temp Pulse Resp BP Sys/Echevarria Pulse Ox Last 24 Hr 97.8 F-98.7 F 66-130 16-24 98-207/45-102 89-98 cor-rrr lungs bilateral wheezes abd soft,nt ext no edema CBC, BMP 03/24/17 06:00 03/24/17 06:00 cxray increased bibasilar markings ASSESSMENT AND PLAN: copd exacerbation possible pneumonia-?HAP switch to zosyn/zithromax cultures urinary antigens ECHO
[2017-03-24] MEDS: PIPERACILLIN/TAZOB 3.375 GM/50 ML PRE-DOCKED IVPB SCH ×2 (13:45→19:01)
[2017-03-24] MEDS ORDERED: ALBUTEROL SO4 0.083% IH SOL 2.5 MG/3 ML VIAL.NEB. NEB PRN (15:05)
--- NOTE | 2017-03-24 15:14 | PN ---
Teaching Attending Note Name of Resident: Timothy Matta ATTENDING PHYSICIAN STATEMENT I saw and evaluated the patient. I reviewed the resident's note and discussed the case with the resident. I agree with the resident's findings and plan as documented. SUBJECTIVE:sob/cough/fatigue OBJECTIVE:mild sob ASSESSMENT AND PLAN: PNEUMONIA COPD/O2 DEP CHRONIC HYPOXEMIC RESP FAILURE POLYSUBSTANCE ABUSE PANCULTURE/O2 SUPPLEMENTATION/ANTIBIOTIC COVERAGE/BRONCHODILATORS/DVT PROPHYLAXSIS TREND LACTIC ACID/CHECK CUTURES PENDING/URINARY ANTIGENS WILL FOLLOW Lamonte WARNER MD
[2017-03-24] MEDS: methylPREDNISolone NA SUCC 40 MG/1 ML VIAL IVPB SCH (18:25)
--- NOTE | 2017-03-24 18:28 | PN ---
Physical Exam: SUBJECTIVE: Patient seen and examined at bedside. No acute events overnight. No complaints. Pt denies headache, cp, sob, abd pain, nausea, vomiting, diarrhea. OBJECTIVE: Vital Signs Period Temp Pulse Resp BP Sys/Echevarria Pulse Ox Last 24 Hr 97.8 F-98.7 F 66-102 16-24 98-134/45-85 94-98 GENERAL: The patient is awake, alert, and fully oriented, in no acute distress. On O2 (2L) HEAD: Normal with no signs of trauma. EYES: PERRL, extraocular movements intact, sclera anicteric, conjunctiva clear. No ptosis. ENT: Ears normal, nares patent, oropharynx clear without exudates, moist mucous membranes.adentulous NECK: Trachea midline, full range of motion, supple. LUNGS: Breath sounds equal, clear to auscultation bilaterally, no wheezes, no crackles, no accessory muscle use. HEART: heart sounds difficult to appreciate over lung sounds ABDOMEN: Soft, nontender, nondistended, normoactive bowel sounds, no guarding, no rebound, no hepatosplenomegaly, no masses. EXTREMITIES: 2+ pulses, warm, well-perfused, no edema. NEUROLOGICAL: Cranial nerves II through XII grossly intact. Normal speech, gait not observed. PSYCH: Normal mood, normal affect. SKIN: Warm, dry, normal turgor, no rashes or lesions noted Laboratory Results - last 24 hr 03/24/17 03/24/17 03/24/17 00:38 04:35 04:35 WBC RBC Hgb Hct MCV MCHC RDW Plt Count MPV Puncture Site ABG pH ABG pCO2 at Pt Temp ABG pO2 at Pt Temp ABG HCO3 ABG O2 Sat (Measured) ABG O2 Content ABG Base Excess Timmy Test O2 Delivery Device Oxygen Flow Rate PEEP Sodium Potassium Chloride Carbon Dioxide Anion Gap BUN Creatinine POC Glucometer Random Glucose Lactic Acid 2.9 H* 1.7 Calcium Troponin I < 0.02 03/24/17 03/24/17 03/24/17 06:00 06:00 06:41 WBC 21.3 H RBC 4.66 Hgb 10.4 L D Hct 33.1 D MCV 71.0 L MCHC 31.4 L RDW 16.8 H Plt Count 141 D MPV 8.7 Puncture Site ABG pH ABG pCO2 at Pt Temp ABG pO2 at Pt Temp ABG HCO3 ABG O2 Sat (Measured) ABG O2 Content ABG Base Excess Timmy Test O2 Delivery Device Oxygen Flow Rate PEEP Sodium 140 Potassium 4.7 Chloride 102 Carbon Dioxide 31 Anion Gap 7 L BUN 33 H Creatinine 1.3 H POC Glucometer 132 Random Glucose 137 H D Lactic Acid Calcium 8.1 L Troponin I 03/24/17 03/24/17 03/24/17 07:15 11:42 17:03 WBC RBC Hgb Hct MCV MCHC RDW Plt Count MPV Puncture Site Right radial ABG pH 7.35 ABG pCO2 at Pt Temp 53.8 H ABG pO2 at Pt Temp 88.1 D ABG HCO3 28.8 H ABG O2 Sat (Measured) 97.4 ABG O2 Content 13.7 L ABG Base Excess 2.9 H Timmy Test Positive O2 Delivery Device Masal Oxygen Flow Rate 2l PEEP 0.0 Sodium Potassium Chloride Carbon Dioxide Anion Gap BUN Creatinine POC Glucometer 190 169 Random Glucose Lactic Acid Calcium Troponin I Active Medications Generic Name Dose Route Start Last Admin Trade Name Freq PRN Reason Stop Dose Admin Albuterol Sulfate 1 amp 03/24/17 15:05 Ventolin 0.083% Nebulizer Soln - NEB Q1H PRN SHORT OF BREATH/WHEEZING Albuterol/Ipratropium 1 amp 03/24/17 18:00 Duoneb - NEB QIDR ZACHARY Amlodipine Besylate 5 mg 03/24/17 10:00 03/24/17 12:18 Norvasc - PO Not Given DAILY ZACHARY Ferrous Sulfate 325 mg 03/24/17 10:00 03/24/17 11:09 Feosol - PO 325 mg DAILY ZACHARY Administration Heparin Sodium (Porcine) 5,000 unit 03/24/17 02:00 03/24/17 11:09 Heparin - SQ 5,000 unit Q8H-IV ZACHARY Administration Azithromycin 250 mls @ 250 mls/hr 03/24/17 10:00 03/24/17 11:33 Zithromax 500mg Ivpb (Pre-Docked) IVPB 250 mls/hr DAILY ZACHARY Administration Insulin Aspart 1 vial 03/24/17 07:00 03/24/17 17:45 Novolog Vial Sliding Scale - SQ 2 units ACHS ZACHARY Administration Protocol Methylprednisolone Sodium Succinate 40 mg 03/24/17 18:00 Solu-Medrol - IVPB Q8H-IV ZACHARY Piperacillin Sod/Tazobactam Sod 3.375 gm 03/24/17 13:15 03/24/17 13:45 Zosyn 3.375gm Ivpb (Pre-Docked) IVPB 3.375 gm Q8H-IV ZACHARY Administration Protocol Roflumilast 500 mcg 03/24/17 16:30 Daliresp - PO DAILY ZACHARY ASSESSMENT/PLAN: Patient is a 57yo woman who is a former smoker with 45pack year hx and PMH of asthma (dx 2003), COPD on 2L home O2 with multiple recent admissions for exacerbation, and HTN who was BIBEMS for increased SOB and chest tightness. # Acute on Chronic COPD exacerbation -WBC 21.3 (from 24.9 on 03/23/17) -Azithromycin 500mg IVPB Daily -Zosyn 3.375gm IVPB Q8H -Solu-Medrol 40mg IVPB Q8H -Ventolin 0.083% Neb -Roflumilast 500 mcg PO daily #Anemia -Hgb 10.4 -monitor labs #HTN -controlled -Norvasc 5mg PO Daily #DM -Novolog ISS #FEN -No fluids -lytes WNL. montior labs -Na controlled diet #Prophylaxis -Heparin 5,000 u SQ Q8H #Dispo -Admit to Med-surg #Code -Full code Visit type - Emergency Visit Emergency Visit: No - New Patient This patient is new to me today: Yes Date on this admission: 03/24/17 - Critical Care Critical Care patient: No
[2017-03-24] MEDS: ROFLUMILAST 500 MCG TABLET PO SCH (19:01)
[2017-03-24 19:13] LABS: URINE APPEARANCE SLCLOUDY; URINE BILIRUBIN NEGATIVE (NEGATIVE); URINE COLOR LTYELLOW; URINE GLUCOSE (UA) NEGATIVE (NEGATIVE); URINE KETONE NEGATIVE (NEGATIVE); URINE NITRITE NEGATIVE (NEGATIVE); URINE UROBILINOGEN NEGATIVE E.U./dl (0.2-1.0)
[2017-03-24 19:20] LABS: URINE BLOOD 1+ (NEGATIVE); URINE LEUK ESTERASE 2+ (NEGATIVE); URINE PROTEIN 1+ (NEGATIVE)
[2017-03-24 19:23] LABS: URINE RBC 5 /hpf (0-3); URINE WBC 28 /hpf (3-5)
[2017-03-24 19:24] LABS: URINE MUCUS RARE
--- NOTE | 2017-03-24 19:37 | PN ---
Teaching Attending Note Name of Resident: Collin Schuster ATTENDING PHYSICIAN STATEMENT I saw and evaluated the patient. I reviewed the resident's note and discussed the case with the resident. I agree with the resident's findings and plan as documented. SUBJECTIVE: Feeling tired with no acute distress. OBJECTIVE: Vital Signs Temperature 98 F 03/24/17 18:00 Pulse Rate 81 03/24/17 18:00 Respiratory Rate 20 03/24/17 18:00 Blood Pressure 133/71 03/24/17 18:00 O2 Sat by Pulse Oximetry (%) 97 03/24/17 10:45 PE: per resident's note Lungs: POsitive for wheezing BL, Decreased air entry BL CBCD WBC 21.3 K/mm3 (4.0-10.0) H 03/24/17 06:00 RBC 4.66 M/mm3 (3.60-5.2) 03/24/17 06:00 Hgb 10.4 GM/dL (10.7-15.3) L D 03/24/17 06:00 Hct 33.1 % (32.4-45.2) D 03/24/17 06:00 MCV 71.0 fl (80-96) L 03/24/17 06:00 MCHC 31.4 g/dl (32.0-36.0) L 03/24/17 06:00 RDW 16.8 % (11.6-15.6) H 03/24/17 06:00 Plt Count 141 K/MM3 (134-434) D 03/24/17 06:00 MPV 8.7 fl (7.5-11.1) 03/24/17 06:00 CMP Sodium 140 mmol/L (136-145) 03/24/17 06:00 Potassium 4.7 mmol/L (3.5-5.1) 03/24/17 06:00 Chloride 102 mmol/L (98-107) 03/24/17 06:00 Carbon Dioxide 31 mmol/L (21-32) 03/24/17 06:00 Anion Gap 7 (8-16) L 03/24/17 06:00 BUN 33 mg/dL (7-18) H 03/24/17 06:00 Creatinine 1.3 mg/dL (0.55-1.02) H 03/24/17 06:00 Creat Clearance w eGFR 46.14 (>60) 03/23/17 19:05 Random Glucose 137 mg/dL (74-106) H D 03/24/17 06:00 Calcium 8.1 mg/dL (8.5-10.1) L 03/24/17 06:00 Total Bilirubin 0.3 mg/dL (0.2-1.0) D 03/23/17 19:05 AST 12 U/L (15-37) L 03/23/17 19:05 ALT 23 U/L (12-78) D 03/23/17 19:05 Alkaline Phosphatase 87 U/L (45-117) 03/23/17 19:05 Total Protein 7.3 g/dl (6.4-8.2) 03/23/17 19:05 Albumin 3.1 g/dl (3.4-5.0) L 03/23/17 19:05 CARDIAC ENZYMES Creatine Kinase 52 IU/L (26-192) 03/23/17 19:05 Troponin I < 0.02 ng/ml (0.00-0.05) 03/24/17 04:35 Current Medications Generic Name Dose Route Start Last Admin Trade Name Freq PRN Reason Stop Dose Admin Albuterol Sulfate 1 amp 03/24/17 15:05 Ventolin 0.083% Nebulizer Soln - NEB Q1H PRN SHORT OF BREATH/WHEEZING Albuterol/Ipratropium 1 amp 03/24/17 18:00 03/24/17 18:05 Duoneb - NEB 1 amp QIDR ZACHARY Administration Amlodipine Besylate 5 mg 03/24/17 10:00 03/24/17 12:18 Norvasc - PO Not Given DAILY ZACHARY Ferrous Sulfate 325 mg 03/24/17 10:00 03/24/17 11:09 Feosol - PO 325 mg DAILY ZACHARY Administration Heparin Sodium (Porcine) 5,000 unit 03/24/17 02:00 03/24/17 18:25 Heparin - SQ 5,000 unit Q8H-IV ZACHARY Administration Azithromycin 250 mls @ 250 mls/hr 03/24/17 10:00 03/24/17 11:33 Zithromax 500mg Ivpb (Pre-Docked) IVPB 250 mls/hr DAILY ZACHARY Administration Insulin Aspart 1 vial 03/24/17 07:00 03/24/17 17:45 Novolog Vial Sliding Scale - SQ 2 units ACHS ZACHARY Administration Protocol Methylprednisolone Sodium Succinate 40 mg 03/24/17 18:00 03/24/17 18:25 Solu-Medrol - IVPB 40 mg Q8H-IV ZACHARY Administration Piperacillin Sod/Tazobactam Sod 3.375 gm 03/24/17 13:15 03/24/17 19:01 Zosyn 3.375gm Ivpb (Pre-Docked) IVPB 3.375 gm Q8H-IV ZACHARY Administration Protocol Roflumilast 500 mcg 03/24/17 16:30 03/24/17 19:01 Daliresp - PO 500 mcg DAILY ZCAHARY Administration Home Medications Medication Instructions Recorded Albuterol 0.083% Nebulizer Destiny 1 amp NEB Q4H PRN #0 amp 09/25/16 [Ventolin 0.083% Nebulizer Soln -] Ferrous Sulfate [Feosol] 325 mg PO DAILY #30 cap 03/09/17 Hydroxyzine HCl 0 mg PO DAILY PRN 03/10/17 Umeclidinium [place] [Incruse 62.5 mcg IH DAILY 03/10/17 Ellipta] Albuterol 0.083% Nebulizer Destiny 1 amp NEB Q4H PRN #0 amp 03/16/17 [Ventolin 0.083% Nebulizer Soln -] Amlodipine Besylate [Norvasc -] 5 mg PO DAILY tablet 03/16/17 Hydroxyzine Pamoate [Vistaril -] 25 mg PO DAILY #30 cap 03/16/17 Prednisone [Deltasone -] 10 mg PO BID #64 tablet 03/16/17 Salmeterol/Fluticasone [Advair 1 puff IH BID #60 inhaler 03/16/17 100Mcg/50Mcg -] ASSESSMENT AND PLAN: 57 F with pmhx of COPD(On home 02)/Bronchiectasis, former smoker, polysubstance abuse and htn who presents with shortness of breath found to be septic secondary to pneumonia and to be in COPD Exacerbation. # Acute COPD Exacerbation continue current treatments, On Steroids continue, Pulmonary continue # s/p Sepsis secondary to pneumonia ( with recent hospitalization) s/p Vancomycin, Ceftriaxone and Azithromycin in ED on Zosyn now, Urine legionella/pneumococcal pending, ID consult # Chest Pain- Atypical # HTN continue meds # RAOUL improving Avoid nephrotoxins Dvt Ppx Heparin 5000 Q8hr
[2017-03-24] MEDS ORDERED: POLYETHYLENE GLYCOL 3350 119 GM BTL PO ONE (22:11)
[2017-03-25] MEDS: methylPREDNISolone NA SUCC 40 MG/1 ML VIAL IVPB SCH ×3 (03:30→18:20)
[2017-03-25] MEDS: HEPARIN NA (PORCINE) 5,000 UNITS/ML 1ML VIAL SQ SCH ×4 (03:31→17:46)
[2017-03-25] MEDS: PIPERACILLIN/TAZOB 3.375 GM/50 ML PRE-DOCKED IVPB SCH ×3 (04:06→17:46)
[2017-03-25] MEDS: ALBUTEROL SO4 2.5/IPRATROPIUM 0.5 INH SOL 3 ML VIAL.NEB. NEB SCH ×4 (05:52→23:56)
[2017-03-25] MEDS: INSULIN SLIDING SCALE (NOVOLOG) 1 VIAL SQ SCH ×4 (06:57→22:53)
[2017-03-25 07:43] LABS: BASOPHIL 0.2 % (0-2.0); MCHC 31.1 g/dl (32.0-36.0); MEAN CELL VOLUME 70.6 fl (80-96); NEUTROPHILS 91.8 % (42.8-82.8); PLATELET COUNT 128 K/MM3 (134-434); RDW 16.9 % (11.6-15.6); WHITE BLOOD COUNT 17.6 K/mm3 (4.0-10.0)
[2017-03-25 08:57] LABS: ANION GAP 6 (8-16); CALCIUM 8.5 mg/dL (8.5-10.1); CO2 30 mmol/L (21-32); GLUCOSE,RANDOM 130 mg/dL (74-106)
[2017-03-25 08:58] LABS: CREATININE 1.1 mg/dL (0.55-1.02)
[2017-03-25] MEDS: amLODIPine BESYLATE 5 MG TABLET (FP) PO SCH (09:53)
[2017-03-25] MEDS: ROFLUMILAST 500 MCG TABLET PO SCH (09:53)
[2017-03-25] MEDS: FERROUS SO4 325 MG TABLET (FP) PO SCH (09:53)
--- NOTE | 2017-03-25 10:35 | PN ---
Progress Note (short form) - Note Progress Note: PULMONARY Still with chest tightness, nonproductive cough and wheezing. Reports anterior chest pain reproducible with palpation. Last Vital Signs Temp Pulse Resp BP Pulse Ox 98.2 F 76 20 133/64 97 03/25/17 05:18 03/25/17 05:18 03/25/17 05:18 03/25/17 05:18 03/24/17 21:00 Gen: NAD at rest Heart: RRR Lung: scattered rhonchi, wheezes Abd: soft, nontender Ext: no edema CBC, BMP 03/25/17 06:00 03/25/17 06:00 Active Medications Albuterol Sulfate (Ventolin 0.083% Nebulizer Soln -) 1 amp NEB Q1H PRN PRN Reason: SHORT OF BREATH/WHEEZING Albuterol/Ipratropium (Duoneb -) 1 amp NEB QIDR [facility] Last Admin: 03/25/17 05:52 Dose: 1 amp Amlodipine Besylate (Norvasc -) 5 mg PO DAILY [facility] Last Admin: 03/25/17 09:53 Dose: 5 mg Ferrous Sulfate (Feosol -) 325 mg PO DAILY [facility] Last Admin: 03/25/17 09:53 Dose: 325 mg Heparin Sodium (Porcine) (Heparin -) 5,000 unit SQ Q8H-IV ZACHARY Last Admin: 03/25/17 09:53 Dose: 5,000 unit Azithromycin (Zithromax 500mg Ivpb (Pre-Docked)) 250 mls @ 250 mls/hr IVPB DAILY [facility] Last Admin: 03/24/17 11:33 Dose: 250 mls/hr Insulin Aspart (Novolog Vial Sliding Scale -) 1 vial SQ ACHS ZACHARY PRN Reason: Protocol Last Admin: 03/25/17 06:57 Dose: Not Given Methylprednisolone Sodium Succinate (Solu-Medrol -) 40 mg IVPB Q8H-IV ZACHARY Last Admin: 03/25/17 09:54 Dose: 40 mg Piperacillin Sod/Tazobactam Sod (Zosyn 3.375gm Ivpb (Pre-Docked)) 3.375 gm IVPB Q8H-IV ZACHARY PRN Reason: Protocol Last Admin: 03/25/17 04:06 Dose: 3.375 gm Roflumilast (Daliresp -) 500 mcg PO DAILY [facility] Last Admin: 03/25/17 09:53 Dose: 500 mcg A/P Acute COPD Exacerbation Pneumonia Chronic Hypoxic Respiratory Failure - continue medrol at current dose - inhaled bronchodilators standing and PRN - continue antibiotics - f/u cultures - O2 to keep SpO2 >90% - DVT prophylaxis
[2017-03-25] MEDS: AZITHROMYCIN IVPB 250 ML IVPB SCH (11:00)
[2017-03-25] MEDS: RANITIDINE HCL 150 MG TABLET (FP) PO SCH ×2 (12:46→22:50)
[2017-03-25 12:48] LABS: TROPONIN I < 0.02 ng/ml (0.00-0.05)
--- NOTE | 2017-03-25 15:50 | EKG ---
Test Reason : Blood Pressure : / mmHG Vent. Rate : 086 BPM Atrial Rate : 086 BPM P-R Int : 130 ms QRS Dur : 066 ms QT Int : 368 ms P-R-T Axes : 087 071 075 degrees QTc Int : 440 ms NORMAL SINUS RHYTHM RIGHT ATRIAL ENLARGEMENT BORDERLINE ECG WHEN COMPARED WITH ECG OF 23-MAR-2017 19:22, PREMATURE VENTRICULAR COMPLEXES ARE NO LONGER PRESENT VENT. RATE HAS DECREASED BY 51 BPM Confirmed by PADDY BORREGO, DIAMOND ([id number]) on 03/25/2017 3:49:57 PM Referred By: MAYA BARBER Confirmed By:DIAMOND THOMASON MD
--- NOTE | 2017-03-25 16:11 | PN ---
Physical Exam: SUBJECTIVE: Patient seen and examined at bedside. No acute events overnight. Pt had no new complaints. OBJECTIVE: Vital Signs Period Temp Pulse Resp BP Sys/Echevarria Pulse Ox Last 24 Hr 97.6 F-98.5 F 76-101 20-22 125-133/64-75 95-97 GENERAL: The patient is awake, alert, and fully oriented, in no acute distress. HEAD: Normal with no signs of trauma. EYES: PERRL, extraocular movements intact, sclera anicteric, conjunctiva clear. No ptosis. ENT: Ears normal, nares patent, oropharynx clear without exudates, moist mucous membranes. NECK: Trachea midline, full range of motion, supple. LUNGS: Breath sounds equal, clear to auscultation bilaterally, no wheezes, no crackles, no accessory muscle use. HEART: Regular rate and rhythm, S1, S2 without murmur, rub or gallop. ABDOMEN: Soft, nontender, nondistended, normoactive bowel sounds, no guarding, no rebound, no hepatosplenomegaly, no masses. EXTREMITIES: 2+ pulses, warm, well-perfused, no edema. NEUROLOGICAL: Cranial nerves II through XII grossly intact. Normal speech, gait not observed. PSYCH: Normal mood, normal affect. SKIN: Warm, dry, normal turgor, no rashes or lesions noted Laboratory Results - last 24 hr 03/24/17 03/24/17 03/24/17 17:03 17:30 22:37 WBC RBC Hgb Hct MCV MCHC RDW Plt Count MPV Neutrophils % Lymphocytes % Monocytes % Eosinophils % Basophils % Sodium Potassium Chloride Carbon Dioxide Anion Gap BUN Creatinine POC Glucometer 169 168 Random Glucose Calcium Creatine Kinase Troponin I Urine Color Ltyellow Urine Appearance Slcloudy Urine pH 5.0 Ur Specific [place] 1.020 Urine Protein 1+ H Urine Glucose (UA) Negative Urine Ketones Negative Urine Blood 1+ H Urine Nitrite Negative Urine Bilirubin Negative Urine Urobilinogen Negative Ur Leukocyte Esterase 2+ H Urine RBC 5 Urine WBC 28 Ur Epithelial Cells Rare Urine Crystals Rare Urine Mucus Rare 03/25/17 03/25/17 03/25/17 06:00 06:00 06:56 WBC 17.6 H RBC 4.47 Hgb 9.8 L Hct 31.6 L MCV 70.6 L MCHC 31.1 L RDW 16.9 H Plt Count 128 L MPV 9.0 Neutrophils % 91.8 H D Lymphocytes % 5.2 L D Monocytes % 2.8 L Eosinophils % 0.0 Basophils % 0.2 D Sodium 141 Potassium 5.2 H Chloride 105 Carbon Dioxide 30 Anion Gap 6 L BUN 32 H Creatinine 1.1 H POC Glucometer 134 Random Glucose 130 H Calcium 8.5 Creatine Kinase Troponin I Urine Color Urine Appearance Urine pH Ur Specific [place] Urine Protein Urine Glucose (UA) Urine Ketones Urine Blood Urine Nitrite Urine Bilirubin Urine Urobilinogen Ur Leukocyte Esterase Urine RBC Urine WBC Ur Epithelial Cells Urine Crystals Urine Mucus 03/25/17 03/25/17 11:57 12:00 WBC RBC Hgb Hct MCV MCHC RDW Plt Count MPV Neutrophils % Lymphocytes % Monocytes % Eosinophils % Basophils % Sodium Potassium Chloride Carbon Dioxide Anion Gap BUN Creatinine POC Glucometer 131 Random Glucose Calcium Creatine Kinase 43 Troponin I < 0.02 Urine Color Urine Appearance Urine pH Ur Specific [place] Urine Protein Urine Glucose (UA) Urine Ketones Urine Blood Urine Nitrite Urine Bilirubin Urine Urobilinogen Ur Leukocyte Esterase Urine RBC Urine WBC Ur Epithelial Cells Urine Crystals Urine Mucus Active Medications Generic Name Dose Route Start Last Admin Trade Name Freq PRN Reason Stop Dose Admin Albuterol Sulfate 1 amp 03/24/17 15:05 Ventolin 0.083% Nebulizer Soln - NEB Q1H PRN SHORT OF BREATH/WHEEZING Albuterol/Ipratropium 1 amp 03/24/17 18:00 03/25/17 11:49 Duoneb - NEB 1 amp QIDR ZACHARY Administration Amlodipine Besylate 5 mg 03/24/17 10:00 03/25/17 09:53 Norvasc - PO 5 mg DAILY ZACHARY Administration Ferrous Sulfate 325 mg 03/24/17 10:00 03/25/17 09:53 Feosol - PO 325 mg DAILY ZACHARY Administration Heparin Sodium (Porcine) 5,000 unit 03/24/17 02:00 03/25/17 09:53 Heparin - SQ 5,000 unit Q8H-IV ZACHARY Administration Azithromycin 250 mls @ 250 mls/hr 03/24/17 10:00 03/25/17 11:00 Zithromax 500mg Ivpb (Pre-Docked) IVPB 250 mls/hr DAILY ZACHARY Administration Insulin Aspart 1 vial 03/24/17 07:00 03/25/17 12:11 Novolog Vial Sliding Scale - SQ Not Given ACHS ZACHARY Protocol Methylprednisolone Sodium Succinate 40 mg 03/24/17 18:00 03/25/17 09:54 Solu-Medrol - IVPB 40 mg Q8H-IV ZACHARY Administration Piperacillin Sod/Tazobactam Sod 3.375 gm 03/24/17 13:15 03/25/17 10:45 Zosyn 3.375gm Ivpb (Pre-Docked) IVPB 3.375 gm Q8H-IV ZACHARY Administration Protocol Ranitidine HCl 150 mg 03/25/17 12:45 03/25/17 12:46 Zantac - PO 150 mg BID ZACHARY Administration Roflumilast 500 mcg 03/24/17 16:30 03/25/17 09:53 Daliresp - PO 500 mcg DAILY ZACHARY Administration ASSESSMENT/PLAN: Patient is a 57yo woman who is a former smoker with 45pack year hx and PMH of asthma (dx 2003), COPD on 2L home O2 with multiple recent admissions for exacerbation, and HTN who was BIBEMS for increased SOB and chest tightness. # Acute on Chronic COPD exacerbation -WBC 17.6 (from 24.9 on 03/23/17) -Azithromycin 250mg IVPB Daily -Zosyn 3.375gm IVPB Q8H -Solu-Medrol 40mg IVPB Q8H -Albuterol 1amp NEB Q4 PRN -Ventolin 0.083% Neb -Roflumilast 500 mcg PO daily -Note: at 11:30 am pt felt short of breath and complained of chest pain. Vitals were: bp 146/76, hr 90, resp rate 22, O2 sat 92%. Stat trop and EKG were neg for ACS. Pt was given stat Duonebs and her symptoms resolved. She has felt well since that time. #leukocytosis -wbc trending down -24.9-> 21.3 -> 17.6 -ID consult appreciated -cont zosyn, f/u cultures (no growth after 24hrs), f/u urinary antigens #Anemia -Hgb 9.8 trending down from 10.4 yest -monitor labs #HTN -controlled -Norvasc 5mg PO Daily #DM -Novolog ISS #FEN -No fluids -lytes WNL. montior labs -Na controlled diet #Prophylaxis -Heparin 5,000 u SQ Q8H #Dispo -Admit to Med-surg #Code -Full code Visit type - Emergency Visit Emergency Visit: No - New Patient This patient is new to me today: No - Critical Care Critical Care patient: No
--- NOTE | 2017-03-25 16:27 | PN ---
Progress Note (short form) - Note Progress Note: less SOB today still wheezing cough with brown sputum production no fevers Vital Signs Period Temp Pulse Resp BP Sys/Echevarria Pulse Ox Last 24 Hr 97.6 F-98.5 F 76-101 20-22 125-133/64-75 95-97 cor-rrr llungs bilateral wheezing abd soft,nt ext no edema CBC, BMP 03/25/17 06:00 03/25/17 06:00 Microbiology 03/23/17 20:00 Blood - Peripheral Venous Blood Culture - Preliminary NO GROWTH OBTAINED AFTER 24 HOURS, INCUBATION TO CONTINUE FOR 4 DAYS. 03/23/17 20:00 Blood - Peripheral Venous Blood Culture - Preliminary NO GROWTH OBTAINED AFTER 24 HOURS, INCUBATION TO CONTINUE FOR 4 DAYS. cxray LLL infiltrate versus atelectasis a/p copd exacerbation pneumonia continue zosyn/zithromax f/u cultures f/u urinary antigens
--- NOTE | 2017-03-25 16:58 | PN ---
Progress Note, Physician Chief Complaint: Patient is less short of breath today complaining of reproducible mid line chest pain not related to exertion relieved by lying flat on her back , worsened by lying on her side Associated cough productive of initially brownish sputum, now grayish colored No fevers or chills - Current Medication List Current Medications: Active Medications Albuterol Sulfate (Ventolin 0.083% Nebulizer Soln -) 1 amp NEB Q1H PRN PRN Reason: SHORT OF BREATH/WHEEZING Albuterol/Ipratropium (Duoneb -) 1 amp NEB QIDR [facility] Last Admin: 03/25/17 11:49 Dose: 1 amp Amlodipine Besylate (Norvasc -) 5 mg PO DAILY [facility] Last Admin: 03/25/17 09:53 Dose: 5 mg Ferrous Sulfate (Feosol -) 325 mg PO DAILY [facility] Last Admin: 03/25/17 09:53 Dose: 325 mg Heparin Sodium (Porcine) (Heparin -) 5,000 unit SQ Q8H-IV [facility]ACHARY Last Admin: 03/25/17 09:53 Dose: 5,000 unit Azithromycin (Zithromax 500mg Ivpb (Pre-Docked)) 250 mls @ 250 mls/hr IVPB DAILY [facility] Last Admin: 03/25/17 11:00 Dose: 250 mls/hr Insulin Aspart (Novolog Vial Sliding Scale -) 1 vial SQ ACHS ZACHARY PRN Reason: Protocol Last Admin: 03/25/17 12:11 Dose: Not Given Methylprednisolone Sodium Succinate (Solu-Medrol -) 40 mg IVPB Q8H-IV [facility]ACHARY Last Admin: 03/25/17 09:54 Dose: 40 mg Piperacillin Sod/Tazobactam Sod (Zosyn 3.375gm Ivpb (Pre-Docked)) 3.375 gm IVPB Q8H-IV ZACHARY PRN Reason: Protocol Last Admin: 03/25/17 10:45 Dose: 3.375 gm Ranitidine HCl (Zantac -) 150 mg PO BID [facility] Last Admin: 03/25/17 12:46 Dose: 150 mg Roflumilast (Daliresp -) 500 mcg PO DAILY [facility] Last Admin: 03/25/17 09:53 Dose: 500 mcg - Objective Vital Signs: Vital Signs Temperature 97.9 F 03/25/17 10:00 Pulse Rate 101 H 03/25/17 10:00 Respiratory Rate 22 03/25/17 10:00 Blood Pressure 128/75 03/25/17 10:00 O2 Sat by Pulse Oximetry (%) 95 03/25/17 09:00 Constitutional: Yes: Calm, Mild Distress HENT: No: Hoarseness, Rhinnorhea Neck: No: Rigid Cardiovascular: Yes: Tachycardia, S1, S2 Respiratory: Yes: Cough, Rhonchi, SOB, Wheezes Gastrointestinal: No: Ascites ...Rectal Exam: Yes: Deferred Labs: CBC, BMP 03/25/17 06:00 03/25/17 06:00 Problem List - Problems (1) COPD exacerbation Code(s): J44.1 - CHRONIC OBSTRUCTIVE PULMONARY DISEASE W (ACUTE) EXACERBATION (2) PNA (pneumonia) Code(s): J18.9 - PNEUMONIA, UNSPECIFIED ORGANISM Qualifiers: Pneumonia type: due to unspecified organism Laterality: bilateral Lung location: lower lobe of lung Qualified Code(s): J18.9 - Pneumonia, unspecified organism (3) Shortness of breath Code(s): R06.02 - SHORTNESS OF BREATH (4) Supplemental oxygen dependent Code(s): Z99.81 - DEPENDENCE ON SUPPLEMENTAL OXYGEN Impression/Plan Impression/Plan: COPD exacerbation and pneumonia with some improvement Plan Continue azithromycin and zosyn Visit type - Emergency Visit Emergency Visit: No - New Patient This patient is new to me today: No - Critical Care Critical Care patient: No - Discharge Referral Referred to [facility] Med P.C.: No
--- NOTE | 2017-03-25 21:34 | PN ---
Teaching Attending Note Name of Resident: Collin Schuster ATTENDING PHYSICIAN STATEMENT I saw and evaluated the patient. I reviewed the resident's note and discussed the case with the resident. I agree with the resident's findings and plan as documented. SUBJECTIVE: Feeling better but continues to wheeze OBJECTIVE: Vital Signs Temperature 98.6 F 03/25/17 18:00 Pulse Rate 90 03/25/17 18:34 Respiratory Rate 20 03/25/17 18:00 Blood Pressure 139/75 03/25/17 18:00 O2 Sat by Pulse Oximetry (%) 98 03/25/17 18:34 PE: per resident's note CBCD WBC 17.6 K/mm3 (4.0-10.0) H 03/25/17 06:00 RBC 4.47 M/mm3 (3.60-5.2) 03/25/17 06:00 Hgb 9.8 GM/dL (10.7-15.3) L 03/25/17 06:00 Hct 31.6 % (32.4-45.2) L 03/25/17 06:00 MCV 70.6 fl (80-96) L 03/25/17 06:00 MCHC 31.1 g/dl (32.0-36.0) L 03/25/17 06:00 RDW 16.9 % (11.6-15.6) H 03/25/17 06:00 Plt Count 128 K/MM3 (134-434) L 03/25/17 06:00 MPV 9.0 fl (7.5-11.1) 03/25/17 06:00 CMP Sodium 141 mmol/L (136-145) 03/25/17 06:00 Potassium 5.2 mmol/L (3.5-5.1) H 03/25/17 06:00 Chloride 105 mmol/L (98-107) 03/25/17 06:00 Carbon Dioxide 30 mmol/L (21-32) 03/25/17 06:00 Anion Gap 6 (8-16) L 03/25/17 06:00 BUN 32 mg/dL (7-18) H 03/25/17 06:00 Creatinine 1.1 mg/dL (0.55-1.02) H 03/25/17 06:00 Creat Clearance w eGFR 46.14 (>60) 03/23/17 19:05 Random Glucose 130 mg/dL (74-106) H 03/25/17 06:00 Calcium 8.5 mg/dL (8.5-10.1) 03/25/17 06:00 Total Bilirubin 0.3 mg/dL (0.2-1.0) D 03/23/17 19:05 AST 12 U/L (15-37) L 03/23/17 19:05 ALT 23 U/L (12-78) D 03/23/17 19:05 Alkaline Phosphatase 87 U/L (45-117) 03/23/17 19:05 Total Protein 7.3 g/dl (6.4-8.2) 03/23/17 19:05 Albumin 3.1 g/dl (3.4-5.0) L 03/23/17 19:05 CARDIAC ENZYMES Creatine Kinase 43 IU/L (26-192) 03/25/17 12:00 Troponin I < 0.02 ng/ml (0.00-0.05) 03/25/17 12:00 Current Medications Generic Name Dose Route Start Last Admin Trade Name Freq PRN Reason Stop Dose Admin Albuterol Sulfate 1 amp 03/24/17 15:05 Ventolin 0.083% Nebulizer Soln - NEB Q1H PRN SHORT OF BREATH/WHEEZING Albuterol/Ipratropium 1 amp 03/24/17 18:00 03/25/17 18:35 Duoneb - NEB 1 amp QIDR ZACHARY Administration Amlodipine Besylate 5 mg 03/24/17 10:00 03/25/17 09:53 Norvasc - PO 5 mg DAILY ZACHARY Administration Ferrous Sulfate 325 mg 03/24/17 10:00 03/25/17 09:53 Feosol - PO 325 mg DAILY ZACHARY Administration Heparin Sodium (Porcine) 5,000 unit 03/24/17 02:00 03/25/17 17:46 Heparin - SQ 5,000 unit Q8H-IV ZACHARY Administration Azithromycin 250 mls @ 250 mls/hr 03/24/17 10:00 03/25/17 11:00 Zithromax 500mg Ivpb (Pre-Docked) IVPB 250 mls/hr DAILY ZACHARY Administration Insulin Aspart 1 vial 03/24/17 07:00 03/25/17 17:08 Novolog Vial Sliding Scale - SQ Not Given ACHS ZACHARY Protocol Methylprednisolone Sodium Succinate 40 mg 03/24/17 18:00 03/25/17 18:20 Solu-Medrol - IVPB 40 mg Q8H-IV ZACHARY Administration Piperacillin Sod/Tazobactam Sod 3.375 gm 03/24/17 13:15 03/25/17 17:46 Zosyn 3.375gm Ivpb (Pre-Docked) IVPB 3.375 gm Q8H-IV ZACHARY Administration Protocol Ranitidine HCl 150 mg 03/25/17 12:45 03/25/17 12:46 Zantac - PO 150 mg BID ZACHARY Administration Roflumilast 500 mcg 03/24/17 16:30 03/25/17 09:53 Daliresp - PO 500 mcg DAILY ZACHARY Administration Home Medications Medication Instructions Recorded Albuterol 0.083% Nebulizer [place] 1 amp NEB Q4H PRN #0 amp 09/25/16 [Ventolin 0.083% Nebulizer Soln -] Ferrous Sulfate [Feosol] 325 mg PO DAILY #30 cap 03/09/17 Hydroxyzine HCl 0 mg PO DAILY PRN 03/10/[address]me[address] [place] [Incruse 62.5 mcg IH DAILY 03/10/17 Ellipta] Albuterol 0.083% Nebulizer [place] 1 amp NEB Q4H PRN #0 amp 03/16/17 [Ventolin 0.083% Nebulizer Soln -] Amlodipine Besylate [Norvasc -] 5 mg PO DAILY tablet 03/16/17 Hydroxyzine Pamoate [Vistaril -] 25 mg PO DAILY #30 cap 03/16/17 Prednisone [Deltasone -] 10 mg PO BID #64 tablet 03/16/17 Salmeterol/Fluticasone [Advair 1 puff IH BID #60 inhaler 03/16/17 100Mcg/50Mcg -] Microbiology 03/25/17 17:45 Sputum - Expectorated Gram Stain - Final 03/25/17 17:45 Sputum - Expectorated Sputum Culture - Preliminary NORMAL RESPIRATORY RAHEEM 03/23/17 20:00 Blood - Peripheral Venous Blood Culture - Preliminary NO GROWTH OBTAINED AFTER 72 HOURS, INCUBATION TO CONTINUE FOR 2 DAYS. 03/23/17 20:00 Blood - Peripheral Venous Blood Culture - Preliminary NO GROWTH OBTAINED AFTER 72 HOURS, INCUBATION TO CONTINUE FOR 2 DAYS. 03/25/17 15:15 Urine For Antigen Detection Legionella Antigen - Final 03/25/17 15:15 Urine For Antigen Detection Streptococcus pneumoniae Antigen (M - Final ASSESSMENT AND PLAN: 57 F with pmhx of COPD(On home 02)/Bronchiectasis, former smoker, polysubstance abuse and htn who presents with shortness of breath found to be septic secondary to pneumonia and to be in COPD Exacerbation. # Acute COPD Exacerbation continue current treatments, steroid 40mg IV q8h, will discuss with pulmonary regarding her discharge plan # s/p Sepsis secondary to pneumonia ( with recent hospitalization) s/p Vancomycin, Ceftriaxone and Azithromycin in ED on Zosyn now # HCAP continue IV antibiotic Zosyn , negative urine antigen legionella and strept , will check with ID the length of treatment # Chest Pain- Atypical # HTN continue meds # RAOUL improving Avoid nephrotoxins Dvt Ppx Heparin [address] in Med-Sx
[2017-03-25] MEDS ORDERED: RANITIDINE HCL 150 MG TABLET (FP) PO SCH (22:00)
[2017-03-26] MEDS: HEPARIN NA (PORCINE) 5,000 UNITS/ML 1ML VIAL SQ SCH ×3 (02:05→17:27)
[2017-03-26] MEDS: methylPREDNISolone NA SUCC 40 MG/1 ML VIAL IVPB SCH ×3 (02:15→18:07)
[2017-03-26] MEDS: PIPERACILLIN/TAZOB 3.375 GM/50 ML PRE-DOCKED IVPB SCH ×3 (02:40→17:26)
[2017-03-26] MEDS: INSULIN SLIDING SCALE (NOVOLOG) 1 VIAL SQ SCH ×4 (06:18→21:44)
[2017-03-26] MEDS: ALBUTEROL SO4 2.5/IPRATROPIUM 0.5 INH SOL 3 ML VIAL.NEB. NEB SCH ×4 (06:45→23:03)
[2017-03-26 07:15] LABS: MCH 22.1 pg (25.7-33.7); MCHC 31.2 g/dl (32.0-36.0); MEAN CELL VOLUME 70.8 fl (80-96); MEAN PLT VOLUME 9.1 fl (7.5-11.1); PLATELET COUNT 156 K/MM3 (134-434); WHITE BLOOD COUNT 15.8 K/mm3 (4.0-10.0)
[2017-03-26 07:38] LABS: ANION GAP 8 (8-16); CALCIUM 8.7 mg/dL (8.5-10.1); CO2 30 mmol/L (21-32); GLUCOSE,RANDOM 103 mg/dL (74-106)
--- NOTE | 2017-03-26 10:08 | PN ---
Progress Note, Physician Chief Complaint: COPD exacerbation and pneumonia 2nd day on azithromcycin and piperacillin/tazobactam less dyspneic today took off her intranasal O2 looks better - Current Medication List Current Medications: Active Medications Albuterol Sulfate (Ventolin 0.083% Nebulizer Soln -) 1 amp NEB Q1H PRN PRN Reason: SHORT OF BREATH/WHEEZING Albuterol/Ipratropium (Duoneb -) 1 amp NEB QIDR [facility] Last Admin: 03/26/17 06:45 Dose: 1 amp Amlodipine Besylate (Norvasc -) 5 mg PO DAILY [facility] Last Admin: 03/25/17 09:53 Dose: 5 mg Ferrous Sulfate (Feosol -) 325 mg PO DAILY [facility] Last Admin: 03/25/17 09:53 Dose: 325 mg Heparin Sodium (Porcine) (Heparin -) 5,000 unit SQ Q8H-IV [facility] Last Admin: 03/26/17 02:05 Dose: 5,000 unit Azithromycin (Zithromax 500mg Ivpb (Pre-Docked)) 250 mls @ 250 mls/hr IVPB DAILY [facility] Last Admin: 03/25/17 11:00 Dose: 250 mls/hr Insulin Aspart (Novolog Vial Sliding Scale -) 1 vial SQ ACHS ZACHARY PRN Reason: Protocol Last Admin: 03/26/17 06:18 Dose: Not Given Methylprednisolone Sodium Succinate (Solu-Medrol -) 40 mg IVPB Q8H-IV [facility] Last Admin: 03/26/17 02:15 Dose: 40 mg Piperacillin Sod/Tazobactam Sod (Zosyn 3.375gm Ivpb (Pre-Docked)) 3.375 gm IVPB Q8H-IV ZACHARY PRN Reason: Protocol Last Admin: 03/26/17 02:40 Dose: 3.375 gm Ranitidine HCl (Zantac -) 150 mg PO BID [facility] Last Admin: 03/25/17 22:50 Dose: 150 mg Roflumilast (Daliresp -) 500 mcg PO DAILY [facility] Last Admin: 03/25/17 09:53 Dose: 500 mcg - Objective Vital Signs: Vital Signs Temperature 98.6 F 03/26/17 05:11 Pulse Rate 79 03/26/17 05:11 Respiratory Rate 20 03/26/17 05:11 Blood Pressure 141/69 03/26/17 05:11 O2 Sat by Pulse Oximetry (%) 100 03/25/17 21:00 Constitutional: Yes: Calm Cardiovascular: Yes: S1, S2 Respiratory: Yes: Rales (Bilaterally), Wheezes (More on right lung base) Gastrointestinal: Yes: Soft. No: Distention, Tenderness, Epigastrium Edema: No (No edema bilaterally) Labs: CBC, BMP 03/26/17 06:00 03/26/17 06:00 - ....Imaging Other: Other (sputum and legionella Ag pending) Problem List - Problems (1) COPD exacerbation Code(s): J44.1 - CHRONIC OBSTRUCTIVE PULMONARY DISEASE W (ACUTE) EXACERBATION (2) PNA (pneumonia) Code(s): J18.9 - PNEUMONIA, UNSPECIFIED ORGANISM Qualifiers: Qualified Code(s): J18.9 - Pneumonia, unspecified organism Impression/Plan Impression/Plan: COPD exacerbation and pneumonia with some improvement pnemonic process/ atelectasis in L lung base from chest Xray Plan Continue azithromycin and zosyn awaiting Legionella antigen test and sputum culture Visit type - Emergency Visit Emergency Visit: No - New Patient This patient is new to me today: No - Critical Care Critical Care patient: No - Discharge Referral Referred to [facility] Med P.C.: No
--- NOTE | 2017-03-26 10:43 | PN ---
Physical Exam: SUBJECTIVE: Patient seen and examined by me - Patient endorses improvement in respiratory status, states it is easier to breath w/ less coughing. - Pt states that she still becomes SOB when ambulating to bathroom. This is a departure from normal baseline - Endorses lingering chest tightness/pain, but much improved. No other major complaints - Denies fever, ROJAS, palpitations, LE edema, N/V, dizziness, weakness, productive cough, change in appetite/energy Other updates: - White count downtrending 24.9 (03/23) -> 15.8. Patient afebrile and nontoxic. OBJECTIVE: Vital Signs Period Temp Pulse Resp BP Sys/Echevarria Pulse Ox Last 24 Hr 97.9 F-98.6 F 79-93 20-20 130-141/69-75 98-100 GENERAL: The patient is awake, alert, and fully oriented, in no acute distress. HEAD: Normal with no signs of trauma. EYES: sclera anicteric, conjunctiva clear. No ptosis. ENT: Ears normal, nares patent, oropharynx clear without exudates, moist mucous membranes. NECK: Supple. Possible thyromegaly LUNGS: Very mild crackles bilateral LL horner. Decreased breath sounds in LLL. No tactile fremitus. No accessory muscle use. HEART: Regular rate and rhythm, S1, S2 without murmur, rub or gallop. ABDOMEN: Soft, nontender, globular abdomen. Normoactive bowel sounds, no guarding, no rebound, no masses. EXTREMITIES: 2+ pulses, warm, well-perfused, no edema. NEUROLOGICAL: Normal speech, gait not observed. PSYCH: Normal mood, normal affect. SKIN: Warm, dry, normal turgor, no rashes or lesions noted Laboratory Results - last 24 hr 03/25/17 03/25/17 03/25/17 11:57 12:00 16:47 WBC RBC Hgb Hct MCV MCHC RDW Plt Count MPV Neutrophils % Lymphocytes % Sodium Potassium Chloride Carbon Dioxide Anion Gap BUN Creatinine POC Glucometer 131 107 Random Glucose Calcium Creatine Kinase 43 Troponin I < 0.02 03/25/17 03/26/17 03/26/17 22:51 06:00 06:00 WBC 15.8 H RBC 4.50 Hgb 10.0 L Hct 31.9 L MCV 70.8 L MCHC 31.2 L RDW 17.0 H Plt Count 156 D MPV 9.1 Neutrophils % Y Lymphocytes % Y Sodium 144 Potassium 4.9 Chloride 106 Carbon Dioxide 30 Anion Gap 8 BUN 35 H Creatinine 1.0 POC Glucometer 129 Random Glucose 103 D Calcium 8.7 Creatine Kinase Troponin I 03/26/17 06:17 WBC RBC Hgb Hct MCV MCHC RDW Plt Count MPV Neutrophils % Lymphocytes % Sodium Potassium Chloride Carbon Dioxide Anion Gap BUN Creatinine POC Glucometer 116 Random Glucose Calcium Creatine Kinase Troponin I Pertinent labs: Blood cx (03/23) neg. Sputum cx pending Legionella urine Ag pending Strep pneumo Ag pending CXR (03/25) - (my read) Mild increased vascular congestion bilaterally. Decreased prominence of bibasilar opacities. Possible consolidation in LLL field. Active Medications Generic Name Dose Route Start Last Admin Trade Name Freq PRN Reason Stop Dose Admin Albuterol Sulfate 1 amp 03/24/17 15:05 Ventolin 0.083% Nebulizer Soln - NEB Q1H PRN SHORT OF BREATH/WHEEZING Albuterol/Ipratropium 1 amp 03/24/17 18:00 03/26/17 06:45 Duoneb - NEB 1 amp QIDR ZACHARY Administration Amlodipine Besylate 5 mg 03/24/17 10:00 03/25/17 09:53 Norvasc - PO 5 mg DAILY ZACHARY Administration Ferrous Sulfate 325 mg 03/24/17 10:00 03/25/17 09:53 Feosol - PO 325 mg DAILY [facility]ACHARY Administration Heparin Sodium (Porcine) 5,000 unit 03/24/17 02:00 03/26/17 02:05 Heparin - SQ 5,000 unit Q8H-IV ZACHARY Administration Azithromycin 250 mls @ 250 mls/hr 03/24/17 10:00 03/25/17 11:00 Zithromax 500mg Ivpb (Pre-Docked) IVPB 250 mls/hr DAILY [facility]ARY Administration Insulin Aspart 1 vial 03/24/17 07:00 03/26/17 06:18 Novolog Vial Sliding Scale - SQ Not Given ACHS [facility] Protocol Methylprednisolone Sodium Succinate 40 mg 03/24/17 18:00 03/26/17 02:15 Solu-Medrol - IVPB 40 mg Q8H-IV ZACHARY Administration Piperacillin Sod/Tazobactam Sod 3.375 gm 03/24/17 13:15 03/26/17 02:40 Zosyn 3.375gm Ivpb (Pre-Docked) IVPB 3.375 gm Q8H-IV ZACHARY Administration Protocol Ranitidine HCl 150 mg 03/25/17 12:45 03/25/17 22:50 Zantac - PO 150 mg BID ZACHARY Administration Roflumilast 500 mcg 03/24/17 16:30 03/25/17 09:53 Daliresp - PO 500 mcg DAILY [facility] Administration ASSESSMENT/PLAN: Problem list: Acute on Chronic COPD Exacerbation PNA Hypoxic respiratory failure Plan (per attending note): - continue medrol at current dose - inhaled bronchodilators standing and PRN - continue antibiotics - f/u sputum/urinary antigens - O2 to keep SpO2 >90% - DVT prophylaxis Timothy Matta MD, PGY1 Will discuss with attending Problem List - Problems (1) COPD exacerbation Code(s): J44.1 - CHRONIC OBSTRUCTIVE PULMONARY DISEASE W (ACUTE) EXACERBATION (2) Chronic respiratory failure with hypoxia Code(s): J96.11 - CHRONIC RESPIRATORY FAILURE WITH HYPOXIA (3) PNA (pneumonia) Code(s): J18.9 - PNEUMONIA, UNSPECIFIED ORGANISM Qualifiers: Pneumonia type: due to unspecified organism Laterality: bilateral Lung location: lower lobe of lung Qualified Code(s): J18.9 - Pneumonia, unspecified organism Visit type - Emergency Visit Emergency Visit: No - New Patient This patient is new to me today: No - Critical Care Critical Care patient: No
[2017-03-26] MEDS: ROFLUMILAST 500 MCG TABLET PO SCH (11:00)
[2017-03-26] MEDS: RANITIDINE HCL 150 MG TABLET (FP) PO SCH ×2 (11:03→21:45)
[2017-03-26] MEDS: AZITHROMYCIN IVPB 250 ML IVPB SCH (11:03)
[2017-03-26] MEDS: FERROUS SO4 325 MG TABLET (FP) PO SCH (11:04)
[2017-03-26] MEDS: amLODIPine BESYLATE 5 MG TABLET (FP) PO SCH (11:04)
--- NOTE | 2017-03-26 11:32 | PN ---
Progress Note (short form) - Note Progress Note: PULMONARY LYING IN BED USING NEBULIZER VSS/AFEBRILE ANICTERIC BILATERAL RHONCHI/WHEEZES PRESENT S1S2 BS+ SOFT NO EDEMA LABS/MEDS/NOTES/IMAGING/MICRO REVIEWED Acute COPD Exacerbation Pneumonia Chronic Hypoxic Respiratory Failure - continue medrol at current dose - inhaled bronchodilators standing and PRN - continue antibiotics - f/u sputum/urinary antigens - O2 to keep SpO2 >90% - DVT prophylaxis Lamonte WARNER MD
--- NOTE | 2017-03-26 12:17 | PN ---
Teaching Attending Note Name of Resident: Lanette Hook ATTENDING PHYSICIAN STATEMENT I saw and evaluated the patient. I reviewed the resident's note and discussed the case with the resident. I agree with the resident's findings and plan as documented. SUBJECTIVE: still wheezing, still SOB OBJECTIVE: Vital Signs Period Temp Pulse Resp BP Sys/Echevarria Pulse Ox Last 24 Hr 97.9 F-98.8 F 78-93 20-22 130-141/69-75 96-100 cor-rrr lungs- right lung wheezing abd soft,nt ext no edema CBC, BMP 03/26/17 06:00 03/26/17 06:00 Microbiology 03/25/17 15:15 Urine For Antigen Detection Legionella Antigen - Final 03/25/17 15:15 Urine For Antigen Detection Streptococcus pneumoniae Antigen (M - Final 03/23/17 20:00 Blood - Peripheral Venous Blood Culture - Preliminary NO GROWTH OBTAINED AFTER 48 HOURS, INCUBATION TO CONTINUE FOR 3 DAYS. 03/23/17 20:00 Blood - Peripheral Venous Blood Culture - Preliminary NO GROWTH OBTAINED AFTER 48 HOURS, INCUBATION TO CONTINUE FOR 3 DAYS. ASSESSMENT AND PLAN: copd exacerbation pneumonia continue zosyn/zith f/u urinary antigens f/u sputum culture steroids/nebs per pulmonary
[2017-03-26 14:02] LABS: PLATELET ESTIMATE ADEQUATE (NORMAL)
--- NOTE | 2017-03-26 16:54 | PN ---
Physical Exam: SUBJECTIVE: Patient seen and examined at bedside. No acute events overnight. No complaints. Pt denies headache, cp, abd pain, nausea, vomiting, diarrhea, dysuria. Pt does admit to having shortness of breath when she walks to the bathroom. OBJECTIVE: Vital Signs Period Temp Pulse Resp BP Sys/Echevarria Pulse Ox Last 24 Hr 98.4 F-98.8 F 78-110 20-22 133-153/66-75 96-100 GENERAL: The patient is awake, alert, and fully oriented, in no acute distress. HEAD: Normal with no signs of trauma. EYES: PERRL, extraocular movements intact, sclera anicteric, conjunctiva clear. No ptosis. ENT: Ears normal, nares patent, oropharynx clear without exudates, moist mucous membranes. NECK: Trachea midline, full range of motion, supple. LUNGS: Breath sounds equal, clear to auscultation bilaterally, no wheezes, no crackles, no accessory muscle use. HEART: Regular rate and rhythm, S1, S2 without murmur, rub or gallop. ABDOMEN: Soft, nontender, nondistended, normoactive bowel sounds, no guarding, no rebound, no hepatosplenomegaly, no masses. EXTREMITIES: 2+ pulses, warm, well-perfused, no edema. NEUROLOGICAL: Cranial nerves II through XII grossly intact. Normal speech, gait not observed. PSYCH: Normal mood, normal affect. SKIN: Warm, dry, normal turgor, no rashes or lesions noted Laboratory Results - last 24 hr 03/25/17 03/25/17 03/26/17 16:47 22:51 06:00 WBC 15.8 H RBC 4.50 Hgb 10.0 L Hct 31.9 L MCV 70.8 L MCHC 31.2 L RDW 17.0 H Plt Count 156 D MPV 9.1 Neutrophils % 96.0 H Lymphocytes % 1.0 L D Monocytes % 3.0 L Differential Comment Manual diff done Platelet Estimate Adequate Sodium Potassium Chloride Carbon Dioxide Anion Gap BUN Creatinine POC Glucometer 107 129 Random Glucose Calcium 03/26/17 03/26/17 06:00 06:17 WBC RBC Hgb Hct MCV MCHC RDW Plt Count MPV Neutrophils % Lymphocytes % Monocytes % Differential Comment Platelet Estimate Sodium 144 Potassium 4.9 Chloride 106 Carbon Dioxide 30 Anion Gap 8 BUN 35 H Creatinine 1.0 POC Glucometer 116 Random Glucose 103 D Calcium 8.7 Active Medications Generic Name Dose Route Start Last Admin Trade Name Freq PRN Reason Stop Dose Admin Albuterol Sulfate 1 amp 03/24/17 15:05 Ventolin 0.083% Nebulizer Soln - NEB Q1H PRN SHORT OF BREATH/WHEEZING Albuterol/Ipratropium 1 amp 03/24/17 18:00 03/26/17 11:25 Duoneb - NEB 1 amp QIDR ZACHARY Administration Amlodipine Besylate 5 mg 03/24/17 10:00 03/26/17 11:04 Norvasc - PO 5 mg DAILY ZACHARY Administration Ferrous Sulfate 325 mg 03/24/17 10:00 03/26/17 11:04 Feosol - PO 325 mg DAILY ZACHARY Administration Heparin Sodium (Porcine) 5,000 unit 03/24/17 02:00 03/26/17 11:04 Heparin - SQ 5,000 unit Q8H-IV ZACHARY Administration Azithromycin 250 mls @ 250 mls/hr 03/24/17 10:00 03/26/17 11:03 Zithromax 500mg Ivpb (Pre-Docked) IVPB 250 mls/hr DAILY ZACHARY Administration Insulin Aspart 1 vial 03/24/17 07:00 03/26/17 11:24 Novolog Vial Sliding Scale - SQ Not Given ACHS ZACHARY Protocol Methylprednisolone Sodium Succinate 40 mg 03/24/17 18:00 03/26/17 11:30 Solu-Medrol - IVPB 40 mg Q8H-IV ZACHARY Administration Piperacillin Sod/Tazobactam Sod 3.375 gm 03/24/17 13:15 03/26/17 11:00 Zosyn 3.375gm Ivpb (Pre-Docked) IVPB 3.375 gm Q8H-IV ZACHARY Administration Protocol Ranitidine HCl 150 mg 03/25/17 12:45 03/26/17 11:03 Zantac - PO 150 mg BID [facility]ACHARY Administration Roflumilast 500 mcg 03/24/17 16:30 03/26/17 11:00 Daliresp - PO 500 mcg DAILY [facility]ARY Administration ASSESSMENT/PLAN: Patient is a 57yo woman who is a former smoker with 45pack year hx and PMH of asthma (dx 2003), COPD on 2L home O2 with multiple recent admissions for exacerbation, and HTN who was BIBEMS for increased SOB and chest tightness. # Acute on Chronic COPD exacerbation -wheezing worse today. continue therapy and monitor. -WBC 15.8 (from 17.6 on 03/25/17) -Azithromycin 250mg IVPB Daily -Zosyn 3.375gm IVPB Q8H -Solu-Medrol 40mg IVPB Q8H -Albuterol 1amp NEB Q4 PRN -Ventolin 0.083% Neb -Roflumilast 500 mcg PO daily #leukocytosis -wbc trending down -24.9-> 21.3 -> 17.6 -> 15.8 -ID consult appreciated -cont zosyn, f/u cultures (no growth after 24hrs), f/u urinary antigens #Anemia -Hgb stable around 10.0 -monitor labs #HTN -controlled -Norvasc 5mg PO Daily #DM -Novolog ISS #FEN -No fluids -lytes WNL. montior labs -Na controlled diet #Prophylaxis -Heparin 5,000 u SQ Q8H #Dispo -Admit to Med-surg #Code -Full code Visit type - Emergency Visit Emergency Visit: No - New Patient This patient is new to me today: No - Critical Care Critical Care patient: No
--- NOTE | 2017-03-26 20:44 | PN ---
Teaching Attending Note Name of Resident: Collin Schuster ATTENDING PHYSICIAN STATEMENT I saw and evaluated the patient. I reviewed the resident's note and discussed the case with the resident. I agree with the resident's findings and plan as documented. SUBJECTIVE: continues to wheeze OBJECTIVE: Vital Signs Temperature 98.1 F 03/26/17 18:12 Pulse Rate 97 H 03/26/17 18:12 Respiratory Rate 24 03/26/17 18:12 Blood Pressure 148/72 03/26/17 18:12 O2 Sat by Pulse Oximetry (%) 96 03/26/17 11:24 PE: per resident's note CBCD WBC 15.8 K/mm3 (4.0-10.0) H 03/26/17 06:00 RBC 4.50 M/mm3 (3.60-5.2) 03/26/17 06:00 Hgb 10.0 GM/dL (10.7-15.3) L 03/26/17 06:00 Hct 31.9 % (32.4-45.2) L 03/26/17 06:00 MCV 70.8 fl (80-96) L 03/26/17 06:00 MCHC 31.2 g/dl (32.0-36.0) L 03/26/17 06:00 RDW 17.0 % (11.6-15.6) H 03/26/17 06:00 Plt Count 156 K/MM3 (134-434) D 03/26/17 06:00 MPV 9.1 fl (7.5-11.1) 03/26/17 06:00 CMP Sodium 144 mmol/L (136-145) 03/26/17 06:00 Potassium 4.9 mmol/L (3.5-5.1) 03/26/17 06:00 Chloride 106 mmol/L (98-107) 03/26/17 06:00 Carbon Dioxide 30 mmol/L (21-32) 03/26/17 06:00 Anion Gap 8 (8-16) 03/26/17 06:00 BUN 35 mg/dL (7-18) H 03/26/17 06:00 Creatinine 1.0 mg/dL (0.55-1.02) 03/26/17 06:00 Creat Clearance w eGFR 46.14 (>60) 03/23/17 19:05 Random Glucose 103 mg/dL (74-106) D 03/26/17 06:00 Calcium 8.7 mg/dL (8.5-10.1) 03/26/17 06:00 Total Bilirubin 0.3 mg/dL (0.2-1.0) D 03/23/17 19:05 AST 12 U/L (15-37) L 03/23/17 19:05 ALT 23 U/L (12-78) D 03/23/17 19:05 Alkaline Phosphatase 87 U/L (45-117) 03/23/17 19:05 Total Protein 7.3 g/dl (6.4-8.2) 03/23/17 19:05 Albumin 3.1 g/dl (3.4-5.0) L 03/23/17 19:05 CARDIAC ENZYMES Creatine Kinase 43 IU/L (26-192) 03/25/17 12:00 Troponin I < 0.02 ng/ml (0.00-0.05) 03/25/17 12:00 Current Medications Generic Name Dose Route Start Last Admin Trade Name Freq PRN Reason Stop Dose Admin Albuterol Sulfate 1 amp 03/24/17 15:05 Ventolin 0.083% Nebulizer Soln - NEB Q1H PRN SHORT OF BREATH/WHEEZING Albuterol/Ipratropium 1 amp 03/24/17 18:00 03/26/17 17:55 Duoneb - NEB 1 amp QIDR ZACHARY Administration Amlodipine Besylate 5 mg 03/24/17 10:00 03/26/17 11:04 Norvasc - PO 5 mg DAILY ZACHARY Administration Ferrous Sulfate 325 mg 03/24/17 10:00 03/26/17 11:04 Feosol - PO 325 mg DAILY ZACHARY Administration Heparin Sodium (Porcine) 5,000 unit 03/24/17 02:00 03/26/17 17:27 Heparin - SQ 5,000 unit Q8H-IV ZACHARY Administration Azithromycin 250 mls @ 250 mls/hr 03/24/17 10:00 03/26/17 11:03 Zithromax 500mg Ivpb (Pre-Docked) IVPB 250 mls/hr DAILY ZACHARY Administration Insulin Aspart 1 vial 03/24/17 07:00 03/26/17 17:26 Novolog Vial Sliding Scale - SQ Not Given ACHS ZACHARY Protocol Methylprednisolone Sodium Succinate 40 mg 03/24/17 18:00 03/26/17 18:07 Solu-Medrol - IVPB 40 mg Q8H-IV ZACHARY Administration Piperacillin Sod/Tazobactam Sod 3.375 gm 03/24/17 13:15 03/26/17 17:26 Zosyn 3.375gm Ivpb (Pre-Docked) IVPB 3.375 gm Q8H-IV ZACHARY Administration Protocol Ranitidine HCl 150 mg 03/25/17 12:45 03/26/17 11:03 Zantac - PO 150 mg BID ZACHARY Administration Roflumilast 500 mcg 03/24/17 16:30 03/26/17 11:00 Daliresp - PO 500 mcg DAILY ZACHARY Administration Home Medications Medication Instructions Recorded Albuterol 0.083% Nebulizer Destiny 1 amp NEB Q4H PRN #0 amp 09/25/16 [Ventolin 0.083% Nebulizer Soln -] Ferrous Sulfate [Feosol] 325 mg PO DAILY #30 cap 03/09/17 Hydroxyzine HCl 0 mg PO DAILY PRN 03/10/17 Umeclidinium [place] [Incruse 62.5 mcg IH DAILY 03/10/17 Ellipta] Albuterol 0.083% Nebulizer Desitny 1 amp NEB Q4H PRN #0 amp 03/16/17 [Ventolin 0.083% Nebulizer Soln -] Amlodipine Besylate [Norvasc -] 5 mg PO DAILY tablet 03/16/17 Hydroxyzine Pamoate [Vistaril -] 25 mg PO DAILY #30 cap 03/16/17 Prednisone [Deltasone -] 10 mg PO BID #64 tablet 03/16/17 Salmeterol/Fluticasone [Advair 1 puff IH BID #60 inhaler 03/16/17 100Mcg/50Mcg -] PE: LUNGS: positive for wheezing bl ASSESSMENT AND PLAN: 57 F with pmhx of COPD(On home 02)/Bronchiectasis, former smoker, polysubstance abuse and htn who presents with shortness of breath found to be septic secondary to pneumonia and to be in COPD Exacerbation. # Acute COPD Exacerbation continue current treatments continue IV steroids # HCAP on IV Antibiotic continue zosyn # s/p Sepsis secondary to pneumonia ( with recent hospitalization) s/p Vancomycin, Ceftriaxone and Azithromycin in ED on Zosyn now, Urine legionella/ pneumococcal pending, ID consult # Chest Pain- Atypical # HTN continue meds # RAOUL improving Avoid nephrotoxins Dvt Ppx Heparin [address] in Med-Sx
[2017-03-27] MEDS: HEPARIN NA (PORCINE) 5,000 UNITS/ML 1ML VIAL SQ SCH ×2 (02:15→11:19)
[2017-03-27] MEDS: methylPREDNISolone NA SUCC 40 MG/1 ML VIAL IVPB SCH ×3 (02:15→22:39)
[2017-03-27] MEDS: PIPERACILLIN/TAZOB 3.375 GM/50 ML PRE-DOCKED IVPB SCH ×2 (02:56→11:18)
[2017-03-27] MEDS: INSULIN SLIDING SCALE (NOVOLOG) 1 VIAL SQ SCH ×2 (06:19→22:38)
[2017-03-27] MEDS: ALBUTEROL SO4 2.5/IPRATROPIUM 0.5 INH SOL 3 ML VIAL.NEB. NEB SCH ×3 (06:30→18:03)
[2017-03-27 07:51] LABS: BASOPHIL 0.6 % (0-2.0); MCH 22.5 pg (25.7-33.7); MCHC 31.7 g/dl (32.0-36.0); MEAN PLT VOLUME 9.3 fl (7.5-11.1); NEUTROPHILS 89.9 % (42.8-82.8); PLATELET COUNT 157 K/MM3 (134-434); RDW 17.6 % (11.6-15.6); WHITE BLOOD COUNT 10.2 K/mm3 (4.0-10.0)
[2017-03-27 08:27] LABS: ANION GAP 7 (8-16); CALCIUM 8.7 mg/dL (8.5-10.1); CO2 30 mmol/L (21-32); GLUCOSE,RANDOM 78 mg/dL (74-106)
--- NOTE | 2017-03-27 10:25 | PN ---
Progress Note (short form) - Note Progress Note: PULMONARY Breathing slowly improving. Still with chest tightness, nonproductive cough and wheezing. Last Vital Signs Temp Pulse Resp BP Pulse Ox 98.6 F 71 20 164/94 100 03/27/17 06:00 03/27/17 06:00 03/27/17 06:00 03/27/17 06:00 03/26/17 21:00 Gen: NAD at rest Heart: RRR Lung: scattered rhonchi, wheezes Abd: soft, nontender Ext: no edema CBC, BMP 03/27/17 06:25 03/27/17 06:10 Active Medications Albuterol Sulfate (Ventolin 0.083% Nebulizer Soln -) 1 amp NEB Q1H PRN PRN Reason: SHORT OF BREATH/WHEEZING Albuterol/Ipratropium (Duoneb -) 1 amp NEB QIDR [facility] Last Admin: 03/27/17 06:30 Dose: 1 amp Amlodipine Besylate (Norvasc -) 5 mg PO DAILY [facility] Last Admin: 03/26/17 11:04 Dose: 5 mg Ferrous Sulfate (Feosol -) 325 mg PO DAILY [facility] Last Admin: 03/26/17 11:04 Dose: 325 mg Heparin Sodium (Porcine) (Heparin -) 5,000 unit SQ Q8H-IV [facility]ACHARY Last Admin: 03/27/17 02:15 Dose: Not Given Azithromycin (Zithromax 500mg Ivpb (Pre-Docked)) 250 mls @ 250 mls/hr IVPB DAILY [facility] Last Admin: 03/26/17 11:03 Dose: 250 mls/hr Insulin Aspart (Novolog Vial Sliding Scale -) 1 vial SQ ACHS ZACHARY PRN Reason: Protocol Last Admin: 03/27/17 06:19 Dose: Not Given Methylprednisolone Sodium Succinate (Solu-Medrol -) 40 mg IVPB Q8H-IV ZACHARY Last Admin: 03/27/17 02:15 Dose: 40 mg Piperacillin Sod/Tazobactam Sod (Zosyn 3.375gm Ivpb (Pre-Docked)) 3.375 gm IVPB Q8H-IV ZACHARY PRN Reason: Protocol Last Admin: 03/27/17 02:56 Dose: 3.375 gm Ranitidine HCl (Zantac -) 150 mg PO BID [facility] Last Admin: 07/07/17 21:45 Dose: 150 mg Roflumilast (Daliresp -) 500 mcg PO DAILY [facility] Last Admin: 03/26/17 11:00 Dose: 500 mcg A/P Acute COPD Exacerbation Pneumonia Chronic Hypoxic Respiratory Failure - continue medrol, will decrease to q12h - inhaled bronchodilators standing and PRN - continue antibiotics - O2 to keep SpO2 >90% - DVT prophylaxis
--- NOTE | 2017-03-27 10:41 | PN ---
Progress Note, Physician History of Present Illness: Mildly tachypneic at rest No c/o chest pain Denies fever/ chills Afebrile WBC improved - Current Medication List Current Medications: Active Medications Albuterol Sulfate (Ventolin 0.083% Nebulizer Soln -) 1 amp NEB Q1H PRN PRN Reason: SHORT OF BREATH/WHEEZING Albuterol/Ipratropium (Duoneb -) 1 amp NEB QIDR [facility] Last Admin: 03/27/17 06:30 Dose: 1 amp Amlodipine Besylate (Norvasc -) 5 mg PO DAILY [facility] Last Admin: 03/26/17 11:04 Dose: 5 mg Ferrous Sulfate (Feosol -) 325 mg PO DAILY [facility] Last Admin: 03/26/17 11:04 Dose: 325 mg Heparin Sodium (Porcine) (Heparin -) 5,000 unit SQ Q8H-IV [facility] Last Admin: 03/27/17 02:15 Dose: Not Given Azithromycin (Zithromax 500mg Ivpb (Pre-Docked)) 250 mls @ 250 mls/hr IVPB DAILY [facility] Last Admin: 03/26/17 11:03 Dose: 250 mls/hr Insulin Aspart (Novolog Vial Sliding Scale -) 1 vial SQ ACHS ZACHARY PRN Reason: Protocol Last Admin: 03/27/17 06:19 Dose: Not Given Methylprednisolone Sodium Succinate (Solu-Medrol -) 40 mg IVPB Q12H [facility] Piperacillin Sod/Tazobactam Sod (Zosyn 3.375gm Ivpb (Pre-Docked)) 3.375 gm IVPB Q8H-IV ZACHARY PRN Reason: Protocol Last Admin: 03/27/17 02:56 Dose: 3.375 gm Ranitidine HCl (Zantac -) 150 mg PO BID [facility] Last Admin: 03/26/17 21:45 Dose: 150 mg Roflumilast (Daliresp -) 500 mcg PO DAILY [facility] Last Admin: 03/26/17 11:00 Dose: 500 mcg - Objective Vital Signs: Vital Signs Temperature 98.6 F 03/27/17 06:00 Pulse Rate 71 03/27/17 06:00 Respiratory Rate 20 03/27/17 06:00 Blood Pressure 164/94 03/27/17 06:00 O2 Sat by Pulse Oximetry (%) 100 03/26/17 21:00 Constitutional: Yes: No Distress Eyes: Yes: Conjunctiva Clear Cardiovascular: Yes: Regular Rate and Rhythm, S1, S2 Respiratory: Yes: Diminished Gastrointestinal: Yes: Normal Bowel Sounds, Soft. No: Tenderness Edema: No Labs: CBC, BMP 03/27/17 06:25 03/27/17 06:10 Assessment/Plan Exacerbation COPD LLL pneumonia Await sputum c/s Continue zithromax/ zosyn
[2017-03-27] MEDS: AZITHROMYCIN IVPB 250 ML IVPB SCH (11:18)
[2017-03-27] MEDS: RANITIDINE HCL 150 MG TABLET (FP) PO SCH ×2 (11:18→22:39)
[2017-03-27] MEDS: amLODIPine BESYLATE 5 MG TABLET (FP) PO SCH (11:18)
[2017-03-27] MEDS: FERROUS SO4 325 MG TABLET (FP) PO SCH (11:18)
[2017-03-27] MEDS: ROFLUMILAST 500 MCG TABLET PO SCH (11:19)
--- NOTE | 2017-03-27 11:30 | PN ---
Physical Exam: SUBJECTIVE: Patient seen and examined Continues to wheeze but slightly better. OBJECTIVE: Vital Signs Temperature 98.6 F 03/27/17 06:00 Pulse Rate 71 03/27/17 06:00 Respiratory Rate 20 03/27/17 06:00 Blood Pressure 164/94 03/27/17 06:00 O2 Sat by Pulse Oximetry (%) 100 03/26/17 21:00 GENERAL: The patient is awake, alert, and fully oriented, in no acute distress. HEAD: Normal with no signs of trauma. EYES: PERRL, extraocular movements intact, sclera anicteric, conjunctiva clear. ENT: Ears normal, oropharynx clear without exudates, moist mucous membranes. NECK: Trachea midline, full range of motion, supple. LUNGS: decreased Breath sounds left>right , positive for wheezing bl , no accessory muscle use. HEART: Regular rate and rhythm, S1, S2 without murmur, rub or gallop. ABDOMEN: Soft, nontender, nondistended, normoactive bowel sounds, no guarding, no rebound, no hepatosplenomegaly, no masses. EXTREMITIES: 2+ pulses, warm, well-perfused, no edema. NEUROLOGICAL: Cranial nerves II through XII grossly intact. Normal speech, gait not observed. PSYCH: Normal mood, normal affect. SKIN: Warm, dry, normal turgor, no rashes or lesions noted CBCD WBC 10.2 K/mm3 (4.0-10.0) H D 03/27/17 06:25 RBC 4.55 M/mm3 (3.60-5.2) 03/27/17 06:25 Hgb 10.2 GM/dL (10.7-15.3) L 03/27/17 06:25 Hct 32.3 % (32.4-45.2) L 03/27/17 06:25 MCV 71.0 fl (80-96) L 03/27/17 06:25 MCHC 31.7 g/dl (32.0-36.0) L 03/27/17 06:25 RDW 17.6 % (11.6-15.6) H 03/27/17 06:25 Plt Count 157 K/MM3 (134-434) 03/27/17 06:25 MPV 9.3 fl (7.5-11.1) 03/27/17 06:25 CMP Sodium 143 mmol/L (136-145) 03/27/17 06:10 Potassium 5.0 mmol/L (3.5-5.1) 03/27/17 06:10 Chloride 106 mmol/L (98-107) 03/27/17 06:10 Carbon Dioxide 30 mmol/L (21-32) 03/27/17 06:10 Anion Gap 7 (8-16) L 03/27/17 06:10 BUN 29 mg/dL (7-18) H 03/27/17 06:10 Creatinine 1.0 mg/dL (0.55-1.02) 03/27/17 06:10 Creat Clearance w eGFR 46.14 (>60) 03/23/17 19:05 Random Glucose 78 mg/dL (74-106) D 03/27/17 06:10 Calcium 8.7 mg/dL (8.5-10.1) 03/27/17 06:10 Total Bilirubin 0.3 mg/dL (0.2-1.0) D 03/23/17 19:05 AST 12 U/L (15-37) L 03/23/17 19:05 ALT 23 U/L (12-78) D 03/23/17 19:05 Alkaline Phosphatase 87 U/L (45-117) 03/23/17 19:05 Total Protein 7.3 g/dl (6.4-8.2) 03/23/17 19:05 Albumin 3.1 g/dl (3.4-5.0) L 03/23/17 19:05 CARDIAC ENZYMES Creatine Kinase 43 IU/L (26-192) 03/25/17 12:00 Troponin I < 0.02 ng/ml (0.00-0.05) 03/25/17 12:00 Active Medications Generic Name Dose Route Start Last Admin Trade Name Freq PRN Reason Stop Dose Admin Albuterol Sulfate 1 amp 03/24/17 15:05 Ventolin 0.083% Nebulizer Soln - NEB Q1H PRN SHORT OF BREATH/WHEEZING Albuterol/Ipratropium 1 amp 03/24/17 18:00 03/27/17 06:30 Duoneb - NEB 1 amp QIDR ZACHARY Administration Amlodipine Besylate 5 mg 03/24/17 10:00 03/27/17 11:18 Norvasc - PO 5 mg DAILY [facility] Administration Ferrous Sulfate 325 mg 03/24/17 10:00 03/27/17 11:18 Feosol - PO 325 mg DAILY [facility] Administration Heparin Sodium (Porcine) 5,000 unit 03/24/17 02:00 03/27/17 11:19 Heparin - SQ 5,000 unit Q8H-IV ZACHARY Administration Azithromycin 250 mls @ 250 mls/hr 03/24/17 10:00 03/27/17 11:18 Zithromax 500mg Ivpb (Pre-Docked) IVPB 250 mls/hr DAILY [facility] Administration Insulin Aspart 1 vial 03/24/17 07:00 03/27/17 06:19 Novolog Vial Sliding Scale - SQ Not Given ACHS ZACHARY Protocol Methylprednisolone Sodium Succinate 40 mg 03/27/17 22:00 Solu-Medrol - IVPB Q12H [facility] Piperacillin Sod/Tazobactam Sod 3.375 gm 03/24/17 13:15 03/27/17 11:18 Zosyn 3.375gm Ivpb (Pre-Docked) IVPB 3.375 gm Q8H-IV ZACHARY Administration Protocol Ranitidine HCl 150 mg 03/25/17 12:45 03/27/17 11:18 Zantac - PO 150 mg BID [facility]ACHARY Administration Roflumilast 500 mcg 03/24/17 16:30 03/27/17 11:19 Daliresp - PO 500 mcg DAILY [facility]ARY Administration Home Medications Medication Instructions Recorded Albuterol 0.083% Nebulizer [place]iny 1 amp NEB Q4H PRN #0 amp 09/25/16 [Ventolin 0.083% Nebulizer Soln -] Ferrous Sulfate [Feosol] 325 mg PO DAILY #30 cap 03/09/17 Hydroxyzine HCl 0 mg PO DAILY PRN 03/10/17 Umeclidinium [place] [Incruse 62.5 mcg IH DAILY 03/10/17 Ellipta] Albuterol 0.083% Nebulizer Destiny 1 amp NEB Q4H PRN #0 amp 03/16/17 [Ventolin 0.083% Nebulizer Soln -] Amlodipine Besylate [Norvasc -] 5 mg PO DAILY tablet 03/16/17 Hydroxyzine Pamoate [Vistaril -] 25 mg PO DAILY #30 cap 03/16/17 Prednisone [Deltasone -] 10 mg PO BID #64 tablet 03/16/17 Salmeterol/Fluticasone [Advair 1 puff IH BID #60 inhaler 03/16/17 100Mcg/50Mcg -] ASSESSMENT AND PLAN: 57 F with pmhx of COPD(On home 02)/Bronchiectasis, former smoker, polysubstance abuse and htn who presents with shortness of breath found to be septic secondary to pneumonia and to be in COPD Exacerbation. # Acute COPD Exacerbation continue current treatments steroids, nebs, will discuss with Pulmonary regarding her discharge planning # HCAp o n zosyn continue IV antibiotic, will discuss with ID # s/p Sepsis secondary to pneumonia ( with recent hospitalization) s/p Vancomycin, Ceftriaxone and Azithromycin in ED on Zosyn now, Urine legionella/ pneumococcal pending, ID consult # Chest Pain- Atypical # HTN continue meds # RAOUL improving Avoid nephrotoxins Dvt Ppx Heparin [address] in Med-Sx Visit type - Emergency Visit Emergency Visit: Yes ED Registration Date: 03/23/17 Care time: The patient presented to the Emergency Department on the above date and was hospitalized for further evaluation of their emergent condition. - New Patient This patient is new to me today: No - Critical Care Critical Care patient: No
[2017-03-28] MEDS: PIPERACILLIN/TAZOB 3.375 GM/50 ML PRE-DOCKED IVPB SCH ×3 (01:42→17:41)
[2017-03-28] MEDS: HEPARIN NA (PORCINE) 5,000 UNITS/ML 1ML VIAL SQ SCH ×3 (01:43→17:41)
[2017-03-28] MEDS: ALBUTEROL SO4 2.5/IPRATROPIUM 0.5 INH SOL 3 ML VIAL.NEB. NEB SCH ×5 (05:54→23:02)
[2017-03-28] MEDS: INSULIN SLIDING SCALE (NOVOLOG) 1 VIAL SQ SCH ×4 (06:10→23:01)
--- NOTE | 2017-03-28 08:36 | PN ---
Physical Exam: SUBJECTIVE: Patient seen and examined at bedside. No acute events overnight. Pt states she is back to her baseline in terms of her breathing. No complaints at this time. Pt denies headache, chest pain, abdominal pain, nausea, vomiting, diarrhea, dysuria. OBJECTIVE: Vital Signs Period Temp Pulse Resp BP Sys/Echevarria Pulse Ox Last 24 Hr 97.6 F-99 F 69-103 20-20 119-149/66-83 100 GENERAL: mild respiratory distress. The patient is awake, alert, and fully oriented, in no acute distress. HEAD: Normal with no signs of trauma. EYES: PERRL, extraocular movements intact, sclera anicteric, conjunctiva clear. No ptosis. ENT: Ears normal, nares patent, oropharynx clear without exudates, moist mucous membranes. NECK: Trachea midline, full range of motion, supple. LUNGS: lungs much improved from Wednesday Breath sounds equal, clear to auscultation bilaterally, no wheezes, no crackles, no accessory muscle use. HEART: Regular rate and rhythm, S1, S2 without murmur, rub or gallop. ABDOMEN: Soft, nontender, nondistended, normoactive bowel sounds, no guarding, no rebound, no hepatosplenomegaly, no masses. EXTREMITIES: 2+ pulses, warm, well-perfused, no edema. NEUROLOGICAL: Cranial nerves II through XII grossly intact. Normal speech, gait not observed. PSYCH: Normal mood, normal affect. SKIN: Warm, dry, normal turgor, no rashes or lesions noted Laboratory Results - last 24 hr 03/27/17 03/27/17 06:10 22:37 Sodium 143 Potassium 5.0 Chloride 106 Carbon Dioxide 30 Anion Gap 7 L BUN 29 H Creatinine 1.0 POC Glucometer 108 Random Glucose 78 D Calcium 8.7 Active Medications Generic Name Dose Route Start Last Admin Trade Name Freq PRN Reason Stop Dose Admin Albuterol Sulfate 1 amp 03/24/17 15:05 Ventolin 0.083% Nebulizer Soln - NEB Q1H PRN SHORT OF BREATH/WHEEZING Albuterol/Ipratropium 1 amp 03/24/17 18:00 03/28/17 05:54 Duoneb - NEB 1 amp QIDR [facility] Administration Amlodipine Besylate 5 mg 03/24/17 10:00 03/27/17 11:18 Norvasc - PO 5 mg DAILY [facility] Administration Ferrous Sulfate 325 mg 03/24/17 10:00 03/27/17 11:18 Feosol - PO 325 mg DAILY [facility] Administration Heparin Sodium (Porcine) 5,000 unit 03/24/17 02:00 03/28/17 01:43 Heparin - SQ Not Given Q8H-IV [facility] Azithromycin 250 mls @ 250 mls/hr 03/24/17 10:00 03/27/17 11:18 Zithromax 500mg Ivpb (Pre-Docked) IVPB 250 mls/hr DAILY [facility] Administration Insulin Aspart 1 vial 03/24/17 07:00 03/28/17 06:10 Novolog Vial Sliding Scale - SQ Not Given ACHS [facility] Protocol Methylprednisolone Sodium Succinate 40 mg 03/27/17 22:00 03/27/17 22:39 Solu-Medrol - IVPB 40 mg Q12H [facility] Administration Piperacillin Sod/Tazobactam Sod 3.375 gm 03/24/17 13:15 03/28/17 01:42 Zosyn 3.375gm Ivpb (Pre-Docked) IVPB 3.375 gm Q8H-IV [facility] Administration Protocol Ranitidine HCl 150 mg 03/25/17 12:45 03/27/17 22:39 Zantac - PO 150 mg BID [facility] Administration Roflumilast 500 mcg 03/24/17 16:30 03/27/17 11:19 Daliresp - PO 500 mcg DAILY [facility] Administration ASSESSMENT/PLAN: Patient is a 57yo woman who is a former smoker with 45pack year hx and PMH of asthma (dx 2003), COPD on 2L home O2 with multiple recent admissions for exacerbation, and HTN who was BIBEMS for increased SOB and chest tightness. # Acute on Chronic COPD exacerbation -wheezing much improved today. continue therapy and monitor. -Azithromycin 500mg IVPB Daily -Zosyn 3.375gm IVPB Q8H -Solu-Medrol 40mg IVPB Q8H -Albuterol 1amp NEB Q4 PRN -Ventolin 0.083% Neb -Roflumilast 500 mcg PO daily #leukocytosis -wbc trending down -24.9-> 21.3 -> 17.6 -> 15.8 -ID consult appreciated -cont zosyn, f/u cultures (no growth after 24hrs), f/u urinary antigens #Anemia -Hgb stable around 10.0 -monitor labs #HTN -controlled -Norvasc 5mg PO Daily #DM -Novolog ISS #FEN -No fluids -lytes WNL. montior labs -Na controlled diet #Prophylaxis -Heparin 5,000 u SQ Q8H #Dispo -Admit to Med-surg #Code -Full code Visit type - Emergency Visit Emergency Visit: Yes ED Registration Date: 03/23/17 Care time: The patient presented to the Emergency Department on the above date and was hospitalized for further evaluation of their emergent condition. - New Patient This patient is new to me today: No - Critical Care Critical Care patient: No
[2017-03-28] MEDS ORDERED: PT OWN MED DRAWER 7, Y5N ONE (09:35)
[2017-03-28] MEDS: RANITIDINE HCL 150 MG TABLET (FP) PO SCH ×2 (09:57→22:57)
[2017-03-28] MEDS: FERROUS SO4 325 MG TABLET (FP) PO SCH (09:58)
[2017-03-28] MEDS: amLODIPine BESYLATE 5 MG TABLET (FP) PO SCH (09:58)
[2017-03-28] MEDS: ROFLUMILAST 500 MCG TABLET PO SCH (10:03)
--- NOTE | 2017-03-28 10:32 | PN ---
Progress Note (short form) - Note Progress Note: PULMONARY Breathing continues to slowly improve. Still with nonproductive cough and wheezing but less. Last Vital Signs Temp Pulse Resp BP Pulse Ox 99 F 73 20 130/74 100 03/28/17 05:34 03/28/17 05:34 03/28/17 05:34 03/28/17 05:34 03/27/17 21:00 Gen: NAD at rest Heart: RRR Lung: scattered rhonchi, wheezes Abd: soft, nontender Ext: no edema CBC, BMP 03/27/17 06:25 03/27/17 06:10 Active Medications Albuterol Sulfate (Ventolin 0.083% Nebulizer Soln -) 1 amp NEB Q1H PRN PRN Reason: SHORT OF BREATH/WHEEZING Albuterol/Ipratropium (Duoneb -) 1 amp NEB QIDR [facility] Last Admin: 03/28/17 05:54 Dose: 1 amp Amlodipine Besylate (Norvasc -) 5 mg PO DAILY [facility] Last Admin: 03/28/17 09:58 Dose: 5 mg Ferrous Sulfate (Feosol -) 325 mg PO DAILY [facility] Last Admin: 03/28/17 09:58 Dose: 325 mg Heparin Sodium (Porcine) (Heparin -) 5,000 unit SQ Q8H-IV [facility] Last Admin: 03/28/17 10:02 Dose: 5,000 unit Azithromycin (Zithromax 500mg Ivpb (Pre-Docked)) 250 mls @ 250 mls/hr IVPB DAILY [facility] Last Admin: 03/27/17 11:18 Dose: 250 mls/hr Insulin Aspart (Novolog Vial Sliding Scale -) 1 vial SQ ACHS [facility] PRN Reason: Protocol Last Admin: 03/28/17 06:10 Dose: Not Given Methylprednisolone Sodium Succinate (Solu-Medrol -) 40 mg IVPB Q12H [facility] Last Admin: 03/27/17 22:39 Dose: 40 mg Piperacillin Sod/Tazobactam Sod (Zosyn 3.375gm Ivpb (Pre-Docked)) 3.375 gm IVPB Q8H-IV [facility] PRN Reason: Protocol Last Admin: 03/28/17 09:58 Dose: 3.375 gm Ranitidine HCl (Zantac -) 150 mg PO BID [facility] Last Admin: 03/28/17 09:57 Dose: 150 mg Roflumilast (Daliresp -) 500 mcg PO DAILY [facility] Last Admin: 03/28/17 10:03 Dose: 500 mcg A/P Acute COPD Exacerbation Pneumonia Chronic Hypoxic Respiratory Failure - continue medrol at current dose - if continues to improve, can likely change steroids to PO in AM - inhaled bronchodilators standing and PRN - continue antibiotics - O2 to keep SpO2 >90% - DVT prophylaxis
[2017-03-28] MEDS: methylPREDNISolone NA SUCC 40 MG/1 ML VIAL IVPB SCH ×2 (10:59→22:57)
[2017-03-28] MEDS: AZITHROMYCIN IVPB 250 ML IVPB SCH (11:20)
--- NOTE | 2017-03-28 12:53 | PN ---
Progress Note, Physician History of Present Illness: Awake, alert Appears more comfortable No c/o chest pain/ dyspnea Occasional cough Afebrile WBC improved Sputum normal huong - Current Medication List Current Medications: Active Medications Albuterol Sulfate (Ventolin 0.083% Nebulizer Soln -) 1 amp NEB Q1H PRN PRN Reason: SHORT OF BREATH/WHEEZING Albuterol/Ipratropium (Duoneb -) 1 amp NEB QIDR [facility] Last Admin: 03/28/17 11:35 Dose: 1 amp Amlodipine Besylate (Norvasc -) 5 mg PO DAILY [facility] Last Admin: 03/28/17 09:58 Dose: 5 mg Ferrous Sulfate (Feosol -) 325 mg PO DAILY [facility] Last Admin: 03/28/17 09:58 Dose: 325 mg Heparin Sodium (Porcine) (Heparin -) 5,000 unit SQ Q8H-IV [facility] Last Admin: 03/28/17 10:02 Dose: 5,000 unit Azithromycin (Zithromax 500mg Ivpb (Pre-Docked)) 250 mls @ 250 mls/hr IVPB DAILY [facility] Last Admin: 03/28/17 11:20 Dose: 250 mls/hr Insulin Aspart (Novolog Vial Sliding Scale -) 1 vial SQ ACHS [facility] PRN Reason: Protocol Last Admin: 03/28/17 12:00 Dose: Not Given Methylprednisolone Sodium Succinate (Solu-Medrol -) 40 mg IVPB Q12H [facility] Last Admin: 03/28/17 10:59 Dose: 40 mg Piperacillin Sod/Tazobactam Sod (Zosyn 3.375gm Ivpb (Pre-Docked)) 3.375 gm IVPB Q8H-IV [facility] PRN Reason: Protocol Last Admin: 03/28/17 09:58 Dose: 3.375 gm Ranitidine HCl (Zantac -) 150 mg PO BID [facility] Last Admin: 03/28/17 09:57 Dose: 150 mg Roflumilast (Daliresp -) 500 mcg PO DAILY [facility] Last Admin: 03/28/17 10:03 Dose: 500 mcg - Objective Vital Signs: Vital Signs Temperature 98.5 F 03/28/17 10:00 Pulse Rate 100 H 03/28/17 11:35 Respiratory Rate 20 03/28/17 10:00 Blood Pressure 139/77 03/28/17 10:00 O2 Sat by Pulse Oximetry (%) 98 03/28/17 11:35 Constitutional: Yes: No Distress Cardiovascular: Yes: Regular Rate and Rhythm, S1, S2 Respiratory: Yes: Rhonchi, Other (+ crepitations at L base) Gastrointestinal: Yes: Normal Bowel Sounds, Soft. No: Tenderness Edema: No Labs: CBC, BMP 03/27/17 06:25 03/27/17 06:10 Assessment/Plan Exacerbation COPD improved LLL pneumonia sputum c/s normal huong Continue zithromax/ zosyn
[2017-03-28] MEDS ORDERED: INSULIN (NOVOLOG) ASPART 100 UNITS/ML 10ML VIAL ONE (18:44)
--- NOTE | 2017-03-28 20:29 | PN ---
Teaching Attending Note Name of Resident: Collin Schuster ATTENDING PHYSICIAN STATEMENT I saw and evaluated the patient. I reviewed the resident's note and discussed the case with the resident. I agree with the resident's findings and plan as documented. SUBJECTIVE: Patient is comfortable with no acute distress, continues to wheeze but less than before OBJECTIVE: Vital Signs Temperature 98.1 F 03/28/17 18:00 Pulse Rate 86 03/28/17 18:00 Respiratory Rate 20 03/28/17 18:00 Blood Pressure 150/78 03/28/17 18:00 O2 Sat by Pulse Oximetry (%) 98 03/28/17 11:35 CBCD WBC 10.2 K/mm3 (4.0-10.0) H D 03/27/17 06:25 RBC 4.55 M/mm3 (3.60-5.2) 03/27/17 06:25 Hgb 10.2 GM/dL (10.7-15.3) L 03/27/17 06:25 Hct 32.3 % (32.4-45.2) L 03/27/17 06:25 MCV 71.0 fl (80-96) L 03/27/17 06:25 MCHC 31.7 g/dl (32.0-36.0) L 03/27/17 06:25 RDW 17.6 % (11.6-15.6) H 03/27/17 06:25 Plt Count 157 K/MM3 (134-434) 03/27/17 06:25 MPV 9.3 fl (7.5-11.1) 03/27/17 06:25 CMP Sodium 143 mmol/L (136-145) 03/27/17 06:10 Potassium 5.0 mmol/L (3.5-5.1) 03/27/17 06:10 Chloride 106 mmol/L (98-107) 03/27/17 06:10 Carbon Dioxide 30 mmol/L (21-32) 03/27/17 06:10 Anion Gap 7 (8-16) L 03/27/17 06:10 BUN 29 mg/dL (7-18) H 03/27/17 06:10 Creatinine 1.0 mg/dL (0.55-1.02) 03/27/17 06:10 Creat Clearance w eGFR 46.14 (>60) 03/23/17 19:05 Random Glucose 78 mg/dL (74-106) D 03/27/17 06:10 Calcium 8.7 mg/dL (8.5-10.1) 03/27/17 06:10 Total Bilirubin 0.3 mg/dL (0.2-1.0) D 03/23/17 19:05 AST 12 U/L (15-37) L 03/23/17 19:05 ALT 23 U/L (12-78) D 03/23/17 19:05 Alkaline Phosphatase 87 U/L (45-117) 03/23/17 19:05 Total Protein 7.3 g/dl (6.4-8.2) 03/23/17 19:05 Albumin 3.1 g/dl (3.4-5.0) L 03/23/17 19:05 CARDIAC ENZYMES Creatine Kinase 43 IU/L (26-192) 03/25/17 12:00 Troponin I < 0.02 ng/ml (0.00-0.05) 03/25/17 12:00 Current Medications Generic Name Dose Route Start Last Admin Trade Name Freq PRN Reason Stop Dose Admin Albuterol Sulfate 1 amp 03/24/17 15:05 Ventolin 0.083% Nebulizer Soln - NEB Q1H PRN SHORT OF BREATH/WHEEZING Albuterol/Ipratropium 1 amp 03/24/17 18:00 03/28/17 18:42 Duoneb - NEB 1 amp QIDR [facility] Administration Amlodipine Besylate 5 mg 03/24/17 10:00 03/28/17 09:58 Norvasc - PO 5 mg DAILY [facility] Administration Azithromycin 500 mg 03/29/17 10:00 Zithromax - PO DAILY [facility] Ferrous Sulfate 325 mg 03/24/17 10:00 03/28/17 09:58 Feosol - PO 325 mg DAILY [facility] Administration Heparin Sodium (Porcine) 5,000 unit 03/24/17 02:00 03/28/17 17:41 Heparin - SQ 5,000 unit Q8H-IV [facility] Administration Insulin Aspart 1 vial 03/24/17 07:00 03/28/17 16:29 Novolog Vial Sliding Scale - SQ Not Given ACHS [facility] Protocol Methylprednisolone Sodium Succinate 40 mg 03/27/17 22:00 03/28/17 10:59 Solu-Medrol - IVPB 40 mg Q12H [facility] Administration Piperacillin Sod/Tazobactam Sod 3.375 gm 03/24/17 13:15 03/28/17 17:41 Zosyn 3.375gm Ivpb (Pre-Docked) IVPB 3.375 gm Q8H-IV [facility] Administration Protocol Ranitidine HCl 150 mg 03/25/17 12:45 03/28/17 09:57 Zantac - PO 150 mg BID [facility] Administration Roflumilast 500 mcg 03/24/17 16:30 03/28/17 10:03 Daliresp - PO 500 mcg DAILY [facility] Administration Home Medications Medication Instructions Recorded Albuterol 0.083% Nebulizer Destiny 1 amp NEB Q4H PRN #0 amp 09/25/16 [Ventolin 0.083% Nebulizer Soln -] Ferrous Sulfate [Feosol] 325 mg PO DAILY #30 cap 03/09/17 Hydroxyzine HCl 0 mg PO DAILY PRN 03/10/17 Umeclidinium Prospect [Incruse 62.5 mcg IH DAILY 03/10/17 Ellipta] Albuterol 0.083% Nebulizer Destiny 1 amp NEB Q4H PRN #0 amp 03/16/17 [Ventolin 0.083% Nebulizer Soln -] Amlodipine Besylate [Norvasc -] 5 mg PO DAILY tablet 03/16/17 Hydroxyzine Pamoate [Vistaril -] 25 mg PO DAILY #30 cap 03/16/17 Prednisone [Deltasone -] 10 mg PO BID #64 tablet 03/16/17 Salmeterol/Fluticasone [Advair 1 puff IH BID #60 inhaler 03/16/17 100Mcg/50Mcg -] PE: per resident's note ASSESSMENT AND PLAN: 57 F with pmhx of COPD(On home 02)/Bronchiectasis, former smoker, polysubstance abuse and htn who presents with shortness of breath found to be septic secondary to pneumonia and to be in COPD Exacerbation. # Acute COPD Exacerbation continue current treatments steroids, nebs, if stays stable will discharge her in am. # HCAp o n zosyn continue IV antibiotic for now will discuss with ID # s/p Sepsis secondary to pneumonia ( with recent hospitalization) s/p Vancomycin, Ceftriaxone and Azithromycin in ED on Zosyn now, Urine legionella/ pneumococcal pending, ID consult # Chest Pain- Atypical # HTN continue meds # RAOUL improved Dvt Ppx Heparin [address] in Med-Sx
[2017-03-29] MEDS: MAG HYDROX/ALH/SMC/DPHA/LIDO 240 ML MOUTHWASH MM SCH ×3 (00:25→12:38)
[2017-03-29] MEDS: HEPARIN NA (PORCINE) 5,000 UNITS/ML 1ML VIAL SQ SCH ×3 (02:25→10:53)
[2017-03-29] MEDS: PIPERACILLIN/TAZOB 3.375 GM/50 ML PRE-DOCKED IVPB SCH ×3 (02:26→10:52)
[2017-03-29] MEDS: INSULIN SLIDING SCALE (NOVOLOG) 1 VIAL SQ SCH ×3 (06:02→11:58)
[2017-03-29] MEDS: ALBUTEROL SO4 2.5/IPRATROPIUM 0.5 INH SOL 3 ML VIAL.NEB. NEB SCH ×2 (06:15→11:15)
[2017-03-29 08:20] LABS: BASOPHIL 1.3 % (0-2.0); EOSINOPHIL 0.1 % (0-4.5); MCH 22.4 pg (25.7-33.7); MCHC 31.9 g/dl (32.0-36.0); MEAN CELL VOLUME 70.3 fl (80-96); MEAN PLT VOLUME 8.8 fl (7.5-11.1); NEUTROPHILS 88.2 % (42.8-82.8); PLATELET COUNT 164 K/MM3 (134-434); RDW 17.5 % (11.6-15.6)
[2017-03-29 08:39] LABS: ANION GAP 6 (8-16); CALCIUM 8.8 mg/dL (8.5-10.1); CO2 30 mmol/L (21-32); GLUCOSE,RANDOM 123 mg/dL (74-106)
[2017-03-29] MEDS ORDERED: AZITHROMYCIN 250 MG TABLET (FP) PO SCH (10:00)
[2017-03-29] MEDS: methylPREDNISolone NA SUCC 40 MG/1 ML VIAL IVPB SCH (10:52)
[2017-03-29] MEDS: RANITIDINE HCL 150 MG TABLET (FP) PO SCH (10:52)
[2017-03-29] MEDS: ROFLUMILAST 500 MCG TABLET PO SCH (10:52)
[2017-03-29] MEDS: FERROUS SO4 325 MG TABLET (FP) PO SCH (10:52)
[2017-03-29] MEDS: amLODIPine BESYLATE 5 MG TABLET (FP) PO SCH (10:53)
--- NOTE | 2017-03-29 10:55 | PN ---
Progress Note, Physician Chief Complaint: COPD exacerbation and pneumonia 6th day on azithromcycin,5th day on zosyn sputum culture negative less dyspneic today, took off her intranasal O2 C/O of painful sores in her mouth looks better - Current Medication List Current Medications: Active Medications Albuterol Sulfate (Ventolin 0.083% Nebulizer Soln -) 1 amp NEB Q1H PRN PRN Reason: SHORT OF BREATH/WHEEZING Albuterol/Ipratropium (Duoneb -) 1 amp NEB QIDR [facility] Last Admin: 03/29/17 06:15 Dose: 1 amp Amlodipine Besylate (Norvasc -) 5 mg PO DAILY [facility] Last Admin: 03/28/17 09:58 Dose: 5 mg Azithromycin (Zithromax -) 500 mg PO DAILY [facility] Ferrous Sulfate (Feosol -) 325 mg PO DAILY [facility] Last Admin: 03/28/17 09:58 Dose: 325 mg Heparin Sodium (Porcine) (Heparin -) 5,000 unit SQ Q8H-IV [facility] Last Admin: 03/29/17 08:12 Dose: Not Given Insulin Aspart (Novolog Vial Sliding Scale -) 1 vial SQ ACHS [facility] PRN Reason: Protocol Last Admin: 03/29/17 08:12 Dose: Not Given Lidocaine/Aluminum/Magnesium/Simeth (Magic Mouthwash *Sjr Formula* -) 5 ml MM Q6HPO [facility] Last Admin: 03/29/17 05:56 Dose: 5 ml Methylprednisolone Sodium Succinate (Solu-Medrol -) 40 mg IVPB Q12H [facility] Last Admin: 03/28/17 22:57 Dose: 40 mg Piperacillin Sod/Tazobactam Sod (Zosyn 3.375gm Ivpb (Pre-Docked)) 3.375 gm IVPB Q8H-IV [facility] PRN Reason: Protocol Last Admin: 03/29/17 08:13 Dose: Not Given Ranitidine HCl (Zantac -) 150 mg PO BID [facility] Last Admin: 03/28/17 22:57 Dose: 150 mg Roflumilast (Daliresp -) 500 mcg PO DAILY [facility] Last Admin: 03/28/17 10:03 Dose: 500 mcg - Objective Vital Signs: Vital Signs Temperature 98.5 F 03/29/17 09:23 Pulse Rate 88 03/29/17 09:23 Respiratory Rate 22 03/29/17 09:23 Blood Pressure 147/83 03/29/17 09:23 O2 Sat by Pulse Oximetry (%) 97 03/28/17 21:00 Constitutional: Yes: Mild Distress Eyes: Yes: Conjunctiva Clear HENT: Yes: Atraumatic, Other (few clustered sores on palate, not hyperemic, clean, non pustular). No: Hoarseness Neck: Yes: Supple. No: Tenderness Cardiovascular: Yes: S1, S2. No: Murmur Respiratory: Yes: Rales (fine crackles more at the lung bases on the left), Wheezes (More on the right, anteriorly). No: On Nasal O2, Stridor Gastrointestinal: Yes: Soft, Tenderness (mild tenderness on left heparin injection site). No: Distention ...Rectal Exam: Yes: Deferred Genitourinary: No: CVA Tenderness - Left, CVA Tenderness - Right, Ramírez Present Musculoskeletal: No: Joint Stiffness, Joint Swelling Edema: No Peripheral Pulses WNL: Yes Integumentary: No: Petechiae, Rash Neurological: Yes: Alert, Oriented. 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
--- NOTE | 2017-03-29 11:08 | PN ---
Physical Exam: SUBJECTIVE: Patient seen and examined by me - Endorses mild improvement in breathing and cough. Still SOB when walking to bathroom, but improved. - Overall, feels better. Only complains of new R-sided jaw pain. - Denies fever, ROJAS, palpitations, LE edema, N/V, dizziness, weakness, productive cough, change in appetite/energy - No major weekend events Other updates: - WBC normalized 24 (03/24) -> 7 (03/29) - Legionella, strep urine ag negative. Blood and sputum cx's negative OBJECTIVE: Vital Signs Period Temp Pulse Resp BP Sys/Echevarria Pulse Ox Last 24 Hr 97.7 F-98.5 F 69-100 20-22 126-162/67-83 97-98 GENERAL: The patient is awake, alert, and fully oriented, in no acute distress. HEAD: Normal with no signs of trauma. No temporal wasting or arteritis. EYES: PERRL, sclera anicteric, conjunctiva clear. No ptosis. ENT: Ears normal, nares patent, oropharynx clear without exudates, moist mucous membranes. poor dentition NECK: Trachea midline, supple. Possible thyromegaly LUNGS: Breath sounds equal, clear to auscultation bilaterally, no wheezes, no crackles, no accessory muscle use. HEART: Regular rate and rhythm, S1, S2 without murmur, rub or gallop. ABDOMEN: Soft, nontender, globular. normoactive bowel sounds, no guarding, no rebound EXTREMITIES: 2+ pulses, warm, well-perfused, no edema. NEUROLOGICAL: Normal speech, gait not observed. PSYCH: Normal mood, normal affect. SKIN: Warm, dry, normal turgor. BL LE anterior ecchymoses Laboratory Results - last 24 hr 03/28/17 03/28/17 03/28/17 05:58 11:52 16:26 WBC RBC Hgb Hct MCV MCH MCHC RDW Plt Count MPV Neutrophils % Lymphocytes % Monocytes % Eosinophils % Basophils % Sodium Potassium Chloride Carbon Dioxide Anion Gap BUN Creatinine POC Glucometer 111 79 122 Random Glucose Calcium 03/28/17 03/29/17 03/29/17 23:00 05:57 06:30 WBC 7.0 D RBC 4.80 Hgb 10.7 Hct 33.7 MCV 70.3 L MCH 22.4 L MCHC 31.9 L RDW 17.5 H Plt Count 164 MPV 8.8 Neutrophils % 88.2 H Lymphocytes % 6.3 L D Monocytes % 4.1 Eosinophils % 0.1 D Basophils % 1.3 Sodium Potassium Chloride Carbon Dioxide Anion Gap BUN Creatinine POC Glucometer 121 124 Random Glucose Calcium 03/29/17 06:30 WBC RBC Hgb Hct MCV MCH MCHC RDW Plt Count MPV Neutrophils % Lymphocytes % Monocytes % Eosinophils % Basophils % Sodium 140 Potassium 5.0 Chloride 104 Carbon Dioxide 30 Anion Gap 6 L BUN 29 H Creatinine 1.0 POC Glucometer Random Glucose 123 H D Calcium 8.8 Micro: Legionella urine Ag - Neg Strep Pneumo U Ag - Neg Blood cx, sputum cx neg CXR: No new imaging to review Active Medications Generic Name Dose Route Start Last Admin Trade Name Freq PRN Reason Stop Dose Admin Albuterol Sulfate 1 amp 03/24/17 15:05 Ventolin 0.083% Nebulizer Soln - NEB Q1H PRN SHORT OF BREATH/WHEEZING Albuterol/Ipratropium 1 amp 03/24/17 18:00 03/29/17 06:15 Duoneb - NEB 1 amp QIDR [facility] Administration Amlodipine Besylate 5 mg 03/24/17 10:00 03/28/17 09:58 Norvasc - PO 5 mg DAILY [facility] Administration Azithromycin 500 mg 03/29/17 10:00 Zithromax - PO DAILY [facility] Ferrous Sulfate 325 mg 03/24/17 10:00 03/28/17 09:58 Feosol - PO 325 mg DAILY [facility] Administration Heparin Sodium (Porcine) 5,000 unit 03/24/17 02:00 03/29/17 08:12 Heparin - SQ Not Given Q8H-IV [facility] Insulin Aspart 1 vial 03/24/17 07:00 03/29/17 08:12 Novolog Vial Sliding Scale - SQ Not Given ACHS [facility] Protocol Lidocaine/Aluminum/Magnesium/Simeth 5 ml 03/29/17 00:00 03/29/17 05:56 Magic Mouthwash *Sjr Formula* - MM 5 ml Q6HPO [facility] Administration Methylprednisolone Sodium Succinate 40 mg 03/27/17 22:00 03/28/17 22:57 Solu-Medrol - IVPB 40 mg Q12H [facility] Administration Piperacillin Sod/Tazobactam Sod 3.375 gm 03/24/17 13:15 03/29/17 08:13 Zosyn 3.375gm Ivpb (Pre-Docked) IVPB Not Given Q8H-IV [facility] Protocol Ranitidine HCl 150 mg 03/25/17 12:45 03/28/17 22:57 Zantac - PO 150 mg BID [facility] Administration Roflumilast 500 mcg 03/24/17 16:30 03/28/17 10:03 Daliresp - PO 500 mcg DAILY [facility] Administration ASSESSMENT/PLAN: Problem List: Acute on chronic COPD exarcerbation PNA Hypoxic respiratory failure Plan: - Consider switch to PO steroids in AM given clinical improvement - Inhaled brochodilators standing and PRN - Titrate O2 to Sp02 90%> - Continue Abx course - DVT PPx - D/c early this week, given clinical improvement - Patient counseling on COPD risk/management on d/c Timothy Matta MD, PGY1 Will discuss with attending Problem List - Problems (1) COPD exacerbation Code(s): J44.1 - CHRONIC OBSTRUCTIVE PULMONARY DISEASE W (ACUTE) EXACERBATION (2) Chronic respiratory failure with hypoxia Code(s): J96.11 - CHRONIC RESPIRATORY FAILURE WITH HYPOXIA (3) PNA (pneumonia) Code(s): J18.9 - PNEUMONIA, UNSPECIFIED ORGANISM Qualifiers: Qualified Code(s): J18.9 - Pneumonia, unspecified organism Visit type - Emergency Visit Emergency Visit: No - New Patient This patient is new to me today: No - Critical Care Critical Care patient: No
--- NOTE | 2017-03-29 14:09 | PN ---
Teaching Attending Note Name of Resident: Lanette Hook ATTENDING PHYSICIAN STATEMENT I saw and evaluated the patient. I reviewed the resident's note and discussed the case with the resident. I agree with the resident's findings and plan as documented. SUBJECTIVE: c/o mouth sores- upper palate breathing improved OBJECTIVE: +ulcers on upper palate cor-rrr lungs few wheezes, moving air better abd soft,nt ext no edema CBC, BMP 03/29/17 06:30 03/29/17 06:30 Microbiology 03/23/17 20:00 Blood - Peripheral Venous Blood Culture - Final NO GROWTH AFTER 5 DAYS INCUBATION 03/23/17 20:00 Blood - Peripheral Venous Blood Culture - Final NO GROWTH AFTER 5 DAYS INCUBATION 03/25/17 17:45 Sputum - Expectorated Gram Stain - Final 03/25/17 17:45 Sputum - Expectorated Sputum Culture - Final NORMAL RESPIRATORY RAHEEM 03/25/17 15:15 Urine For Antigen Detection Legionella Antigen - Final 03/25/17 15:15 Urine For Antigen Detection Streptococcus pneumoniae Antigen (M - Final Current Medications Albuterol Sulfate (Ventolin 0.083% Nebulizer Soln -) 1 amp NEB Q1H PRN PRN Reason: SHORT OF BREATH/WHEEZING Albuterol/Ipratropium (Duoneb -) 1 amp NEB QIDR ZACHARY Last Admin: 03/29/17 11:15 Dose: 1 amp Amlodipine Besylate (Norvasc -) 5 mg PO DAILY ZACHARY Last Admin: 03/29/17 10:53 Dose: 5 mg Azithromycin (Zithromax -) 500 mg PO DAILY ZACHARY Last Admin: 03/29/17 10:52 Dose: 500 mg Ferrous Sulfate (Feosol -) 325 mg PO DAILY ZACHARY Last Admin: 03/29/17 10:52 Dose: 325 mg Heparin Sodium (Porcine) (Heparin -) 5,000 unit SQ Q8H-IV ZACHARY Last Admin: 03/29/17 10:53 Dose: 5,000 unit Insulin Aspart (Novolog Vial Sliding Scale -) 1 vial SQ ACHS ZACHARY PRN Reason: Protocol Last Admin: 03/29/17 11:58 Dose: Not Given Lidocaine/Aluminum/Magnesium/Simeth (Magic Mouthwash *Sjr Formula* -) 5 ml MM Q6HPO ZACHARY Last Admin: 03/29/17 12:38 Dose: 5 ml Methylprednisolone Sodium Succinate (Solu-Medrol -) 40 mg IVPB Q12H [facility] Last Admin: 03/29/17 10:52 Dose: 40 mg Piperacillin Sod/Tazobactam Sod (Zosyn 3.375gm Ivpb (Pre-Docked)) 3.375 gm IVPB Q8H-IV ZACHARY PRN Reason: Protocol Last Admin: 03/29/17 10:52 Dose: 3.375 gm Ranitidine HCl (Zantac -) 150 mg PO BID [facility] Last Admin: 03/29/17 10:52 Dose: 150 mg Roflumilast (Daliresp -) 500 mcg PO DAILY [facility] Last Admin: 03/29/17 10:52 Dose: 500 mcg ASSESSMENT AND PLAN: resolving pneumonia resolving copd exacerbation day #7 zithromax- can d/c d/c zosyn in am
[2017-03-29 14:17] VITALS: BP 149/87; PULSE 94; TEMP 97
--- NOTE | 2017-03-29 18:50 | PN ---
Teaching Attending Note Name of Resident: Collin Schuster ATTENDING PHYSICIAN STATEMENT I saw and evaluated the patient. I reviewed the resident's note and discussed the case with the resident. I agree with the resident's findings and plan as documented. SUBJECTIVE: Comfortable with no acute distress OBJECTIVE: Vital Signs Temperature 97.0 F L 03/29/17 14:14 Pulse Rate 94 H 03/29/17 14:14 Respiratory Rate 20 03/29/17 14:14 Blood Pressure 149/87 03/29/17 14:14 O2 Sat by Pulse Oximetry (%) 97 03/29/17 11:16 CBCD WBC 7.0 K/mm3 (4.0-10.0) D 03/29/17 06:30 RBC 4.80 M/mm3 (3.60-5.2) 03/29/17 06:30 Hgb 10.7 GM/dL (10.7-15.3) 03/29/17 06:30 Hct 33.7 % (32.4-45.2) 03/29/17 06:30 MCV 70.3 fl (80-96) L 03/29/17 06:30 MCHC 31.9 g/dl (32.0-36.0) L 03/29/17 06:30 RDW 17.5 % (11.6-15.6) H 03/29/17 06:30 Plt Count 164 K/MM3 (134-434) 03/29/17 06:30 MPV 8.8 fl (7.5-11.1) 03/29/17 06:30 CMP Sodium 140 mmol/L (136-145) 03/29/17 06:30 Potassium 5.0 mmol/L (3.5-5.1) 03/29/17 06:30 Chloride 104 mmol/L (98-107) 03/29/17 06:30 Carbon Dioxide 30 mmol/L (21-32) 03/29/17 06:30 Anion Gap 6 (8-16) L 03/29/17 06:30 BUN 29 mg/dL (7-18) H 03/29/17 06:30 Creatinine 1.0 mg/dL (0.55-1.02) 03/29/17 06:30 Creat Clearance w eGFR 46.14 (>60) 03/23/17 19:05 Random Glucose 123 mg/dL (74-106) H D 03/29/17 06:30 Calcium 8.8 mg/dL (8.5-10.1) 03/29/17 06:30 Total Bilirubin 0.3 mg/dL (0.2-1.0) D 03/23/17 19:05 AST 12 U/L (15-37) L 03/23/17 19:05 ALT 23 U/L (12-78) D 03/23/17 19:05 Alkaline Phosphatase 87 U/L (45-117) 03/23/17 19:05 Total Protein 7.3 g/dl (6.4-8.2) 03/23/17 19:05 Albumin 3.1 g/dl (3.4-5.0) L 03/23/17 19:05 CARDIAC ENZYMES Creatine Kinase 43 IU/L (26-192) 03/25/17 12:00 Troponin I < 0.02 ng/ml (0.00-0.05) 03/25/17 12:00 Home Medications Medication Instructions Recorded RX: Albuterol 0.083% Nebulizer Destiny 1 amp NEB Q4H PRN #0 amp 09/25/16 [Ventolin 0.083% Nebulizer Soln -] RX: Ferrous Sulfate [Feosol] 325 mg PO DAILY #30 cap 03/09/17 Hydroxyzine HCl 0 mg PO DAILY PRN 03/10/17 RX: Umeclidinium [place] [Incruse 62.5 mcg IH DAILY 03/10/17 Ellipta] RX: Amlodipine Besylate [Norvasc -] 5 mg PO DAILY tablet 03/16/17 RX: Hydroxyzine Pamoate [Vistaril 25 mg PO DAILY #30 cap 03/16/17 -] RX: Salmeterol/Fluticasone [Advair 1 puff IH BID #60 inhaler 03/16/17 100Mcg/50Mcg -] RX: Prednisone [Deltasone -] See Taper PO DAILY #60 tablet 03/29/17 RX: Ranitidine [Zantac -] 150 mg PO BID #20 tablet 03/29/17 RX: Roflumilast [Daliresp -] 500 mcg PO DAILY #20 tablet 03/29/17 Valacyclovir HCl [Valtrex] 1,000 mg PO BID #14 tablet 03/29/17 PE: per resident's note ASSESSMENT AND PLAN: 57 F with pmhx of COPD(On home 02)/Bronchiectasis, former smoker, polysubstance abuse and htn who presents with shortness of breath found to be septic secondary to pneumonia and to be in COPD Exacerbation. # Acute COPD Exacerbation improved will discharge her on PO Prednisone tapered dose 40mg po x 4 days, 30my x 4 days, 20mg x 4 days, 10mg x 4 days then discontinue . # HCAp completed antibiotic # s/p Sepsis secondary to pneumonia ( with recent hospitalization) s/p Vancomycin, Ceftriaxone and Azithromycin in ED on Zosyn now, Urine legionella/ pneumococcal negative , ID consult # Chest Pain- Atypical # HTN continue meds # RAOUL improved discharge patient now
--- NOTE | 2017-03-29 19:44 | DS ---
Physical Exam: SUBJECTIVE: Patient seen and examined at bedside. No acute events overnight. Pt complains of lesions on the roof of her mouth. No other complaints. Pt denies fever, headache, cp, abd pain, nausea, vomiting, diarrhea, dysuria. OBJECTIVE: Vital Signs Period Temp Pulse Resp BP Sys/Echevarria Pulse Ox Last 24 Hr 97.0 F-98.5 F 69-94 20-22 126-162/67-87 97-97 PHYSICAL EXAM GENERAL: O2 in place. The patient is awake, alert, and fully oriented, in no acute distress. HEAD: Normal with no signs of trauma. EYES: PERRL, extraocular movements intact, sclera anicteric, conjunctiva clear. ENT: Ears normal, nares patent, oropharynx clear without exudates, moist mucous membranes. NECK: Trachea midline, full range of motion, supple. LUNGS: Breath sounds equal, clear to auscultation bilaterally, no wheezes, no crackles, no accessory muscle use. HEART: Regular rate and rhythm, S1, S2 without murmur, rub or gallop. ABDOMEN: Soft, nontender, nondistended, normoactive bowel sounds, no guarding, no rebound, no hepatosplenomegaly, no masses. EXTREMITIES: 2+ pulses, warm, well-perfused, no edema. NEUROLOGICAL: Cranial nerves II through XII grossly intact. Normal speech, gait not observed. PSYCH: Normal mood, normal affect. SKIN: Warm, dry, normal turgor, no rashes or lesions noted. LABS Laboratory Results - last 24 hr 03/28/17 03/29/17 03/29/17 23:00 05:57 06:30 WBC 7.0 D RBC 4.80 Hgb 10.7 Hct 33.7 MCV 70.3 L MCH 22.4 L MCHC 31.9 L RDW 17.5 H Plt Count 164 MPV 8.8 Neutrophils % 88.2 H Lymphocytes % 6.3 L D Monocytes % 4.1 Eosinophils % 0.1 D Basophils % 1.3 Sodium Potassium Chloride Carbon Dioxide Anion Gap BUN Creatinine POC Glucometer 121 124 Random Glucose Calcium 03/29/17 03/29/17 06:30 11:56 WBC RBC Hgb Hct MCV MCH MCHC RDW Plt Count MPV Neutrophils % Lymphocytes % Monocytes % Eosinophils % Basophils % Sodium 140 Potassium 5.0 Chloride 104 Carbon Dioxide 30 Anion Gap 6 L BUN 29 H Creatinine 1.0 POC Glucometer 133 Random Glucose 123 H D Calcium 8.8 HOSPITAL COURSE: Date of Admission:03/23/17 Date of Discharge: 03/29/17 Patient is a 57yo woman who is a former smoker with 45pack year hx and PMH of asthma (dx 2003), COPD on 2L home O2 with multiple recent admissions for exacerbation, and HTN who was BIBEMS for increased SOB and chest tightness. She was found to have acute on chronic COPD exacerbation for which she received nebulizer treatments and antibiotics. Her condition improved greatly over the course of several days. Her leukocytosis resolved, and her anemia remained stable throughout her stay. She is currently stable for discharge home. She was given instructions to take her medications as directed and to follow up with all her doctor's appointments. She verbalized understanding and agreement. Minutes to complete discharge: 45 Discharge Summary Reason For Visit: SHORTNESS OF BREATH,PNEUMONIA Current Active Problems Acute bronchitis (Acute) Shortness of breath (Acute) Chronic respiratory failure with hypoxia (Chronic) Condition: Good - Instructions Diet, Activity, Other Instructions: You were admitted to the hospital for acute respiratory failure with hypoxia. You were seen by Pulmonology and Infectious Diseases. Your wheezing and shortness of breath improved gradually throughout your stay. Please continue to take your prescribed medications as directed, and please make sure you follow up with your primary care doctor in 1 week, and with your senior quality technician in 1 week. If you have any new symptoms or if your symptoms get worse, please come back to the emergency room. Referrals: Aaron Blakely MD, [Staff Physician] - Disposition: HOME - Home Medications Comprehensive Discharge Medication List: Ambulatory Orders Albuterol 0.083% Nebulizer Destiny [Ventolin 0.083% Nebulizer Soln -] 1 amp NEB Q4H PRN #0 amp 09/25/16 Ferrous Sulfate [Feosol] 325 mg PO DAILY #30 cap 03/09/17 Hydroxyzine HCl 0 mg PO DAILY PRN 03/10/17 Umeclidinium [place] [Incruse Ellipta] 62.5 mcg IH DAILY 03/10/17 Amlodipine Besylate [Norvasc -] 5 mg PO DAILY tablet 03/16/17 Hydroxyzine Pamoate [Vistaril -] 25 mg PO DAILY #30 cap 03/16/17 Salmeterol/Fluticasone [Advair 100Mcg/50Mcg -] 1 puff IH BID #60 inhaler Prednisone [Deltasone -] See Taper PO DAILY #60 tablet 03/29/17 Ranitidine [Zantac -] 150 mg PO BID #20 tablet 03/29/17 Roflumilast [Daliresp -] 500 mcg PO DAILY #20 tablet 03/29/17 Valacyclovir HCl [Valtrex] 1,000 mg PO BID #14 tablet 03/29/17 This patient is new to me today: No Emergency Visit: No Critical Care patient: No - Discharge Referral Referred to [facility] No
[2017-03-29] MEDS ORDERED: valACYclovir HCL 500 MG TABLET (FP) PO SCH (22:00)
== END 2017-03-29 17:49 | disposition home or self-care (01) | DRG 720 ==
LOC: JER 18:43 → JERBED 21:54 → J7W 03-24 01:09
PROVIDERS: ADMIT Internal Medicine; ATTEND Internal Medicine
DX: A41.9 Sepsis, unspecified organism (principal); N17.9 Acute kidney failure, unspecified; J96.10 Chronic respiratory failure, unspecified whether with hypoxia or hypercapnia; Z99.81 Dependence on supplemental oxygen; J18.9 Pneumonia, unspecified organism; I27.2 Other secondary pulmonary hypertension; J44.1 Chronic obstructive pulmonary disease with (acute) exacerbation; J44.0 Chronic obstructive pulmonary disease with (acute) lower respiratory infection; I10 Essential (primary) hypertension; F41.9 Anxiety disorder, unspecified; Z87.891 Personal history of nicotine dependence; J45.909 Unspecified asthma, uncomplicated; Y95 Nosocomial condition; D50.9 Iron deficiency anemia, unspecified; E11.9 Type 2 diabetes mellitus without complications; J98.11 Atelectasis; K13.70 Unspecified lesions of oral mucosa; B00.9 Herpesviral infection, unspecified; Z79.4 Long term (current) use of insulin
CPT/HCPCS: 36415; 36600; 71010-TC; 80048; 80053; 81003; 81015; 82550; 82803; 83605; 84484; 85025; 85027; 87040; 87070; 87205; 87899; 93005; 93010; 93306-TC; 94640; 99284-25; J1644

== ENCOUNTER 2017-05-24 19:53 | Inpatient (IN) | payer OTHER ==
--- NOTE | 2017-05-24 20:14 | PDOC ---
Attending Attestation - Resident Resident Name: Paula Jones - ED Attending Attestation I have performed the following: I have examined & evaluated the patient, The case was reviewed & discussed with the resident, I agree w/resident's findings & plan, Exceptions are as noted - HPI HPI: 05/24/17 20:14 Dyspnea, Hx of COPD, Feels the same 05/24/17 20:57 - Physicial Exam PE: 05/24/17 20:14 VSS/No Hypoxia - Medical Decision Making 05/24/17 20:[address] Jones's Assessment and Plan
[2017-05-24] MEDS ORDERED: LEVOFLOXACIN 750 MG IVPB 150 ML IVPB ONE ×2 (20:47→20:55)
[2017-05-24] MEDS ORDERED: methylPREDNISolone NA SUCC 125 MG/2 ML VIAL IVPB ONE (20:48)
[2017-05-24] MEDS ORDERED: methylPREDNISolone NA SUCC 125 MG/2 ML VIAL ONE (20:54)
--- NOTE | 2017-05-24 20:56 | PDOC ---
History of Present Illness - General Chief Complaint: Shortness of Breath Stated Complaint: DIFFICULTY BREATHING Time Seen by Provider: 05/24/17 20:05 History Source: Patient Exam Limitations: No Limitations - History of Present Illness Initial Comments: 57yo F with PMH of COPD, HTN, anxiety presenting with chest pain and difficulty breathing. Pt was out to dinner when chest pain began. She went home and slept for one hour. Pain was still present upon waking prompting her to come to the ER. Pain began 2 hrs ago. She describes pain as tight/pressure, substernal, non-radiating, rated 10/10. Pt also c/o SOB/difficulty breathing that began at the same time as the chest pain. Pt was last adm to this hospital in March for COPD exacerbation. Pt reports her current symptoms are the same as when she presented to the hospital last time. Pt denies fever, sick contacts, recent travel. 05/24/17 20:50 Timing/Duration: 1-3 hours Severity: mild Associated Symptoms: reports: chest pain, shortness of breath. denies: cough, diaphoresis, fever/chills, headaches, nausea/vomiting, rash, syncope Past History - Travel Traveled outside of the country in the last 30 days: No - Past Medical History Allergies/Adverse Reactions: Allergies Allergy/AdvReac Type Severity Reaction Status Date / Time black walnut Allergy Severe Hives Verified 05/24/17 20:06 sulfamethoxazole Allergy Severe Swelling Verified 05/24/17 20:06 [From Bactrim] trimethoprim [From Bactrim] Allergy Severe Swelling Verified 05/24/17 20:06 PECAN Allergy Severe Hives Uncoded 05/24/17 20:06 Home Medications: Ambulatory Orders Albuterol 0.083% Nebulizer Destiny [Ventolin 0.083% Nebulizer Soln -] 1 amp NEB Q4H PRN #0 amp 09/25/16 Ferrous Sulfate [Feosol] 325 mg PO DAILY #30 cap 03/09/17 Hydroxyzine Pamoate [Vistaril -] 25 mg PO DAILY #30 cap 03/16/17 Salmeterol/Fluticasone [Advair 100Mcg/50Mcg -] 1 puff IH BID #60 inhaler Hydrochlorothiazide 25 mg PO DAILY 05/24/17 Metoprolol Tartrate 50 mg PO BID 05/24/17 Prednisone [Deltasone -] 20 mg PO DAILY 05/24/17 Anemia: No Asthma: Yes (Dx 2003) Cancer: No Cardiac Disorders: Yes CVA: No COPD: Yes CHF: No DVT: No Dementia: No Diabetes: No Dialysis: No GI Disorders: No Disorders: No HTN: Yes Hypercholesterolemia: No HIV: No Kidney Stones: No Liver Disease: No Psychiatric Problems: Yes (anxiety) Suicide Attempt (Hx): No Seizures: No Thyroid Disease: No Lung CA: No - Surgical History Abdominal Surgery: No Appendectomy: No Cardiac Surgery: No Cholecystectomy: No Gastric Stapling: No GI Surgery: No Lung Surgery: No Neurologic Surgery: No Orthopedic Surgery: No - Family Disease History Family Disease History: Other: Father (passed from kidney failure as refused HD) , Mother (kidney failure requiring HD) - Immunization History Immunization Up to Date: Yes - Psycho/Social/Smoking Cessation Hx Anxiety: No Suicidal Ideation: No Smoking Status: No Smoking History: Former smoker Years of Tobacco Use: 45 (45 pack yr hx) Have you smoked in the past 12 months: No Number of Cigarettes Smoked Daily: 0 If you are a former smoker, when did you quit?: 5 year ago Information on smoking cessation initiated: No 'Breaking Loose' booklet given: 04/10/15 Hx Alcohol Use: No Drug/Substance Use Hx: No Substance Use Type: None Hx Substance Use Treatment: Yes (quit 5 yrs ago, crack cocaine) Review of Systems - Review of Systems Able to Perform ROS?: Yes Is the patient limited Yemeni proficient: No Constitutional: No: Chills, Diaphoresis, Fever HEENTM: No: Recent change in vision, Ear Pain, Nose Pain, Throat Pain Respiratory: Yes: Cough (mild), Shortness of Breath, Wheezing. No: Orthopnea, Stridor, Hemoptysis Cardiac (ROS): Yes: Chest Pain, Chest Tightness. No: Edema, Irregular Heart Rate, Lightheadedness, Palpitations, Syncope ABD/GI: No: Abdominal Distended, Constipated, Diarrhea, Nausea, Rectal Bleeding , Vomiting, Abdominal cramping : No: Burning, Dysuria, Hematuria Musculoskeletal: No: Joint Pain, Muscle Pain Integumentary: No: Bruising, Lesions, Rash Neurological: No: Headache, Weakness, Unsteady Gait *Physical Exam - Vital Signs Last Vital Signs Temp Pulse Resp BP Pulse Ox 123 H 20 126/77 96 05/24/17 20:25 05/24/17 20:06 05/24/17 20:06 05/24/17 20:25 - Physical Exam General Appearance: Yes: Nourished, Appropriately Dressed. No: Apparent Distress HEENT: positive: EOMI, Normal Voice, Other (moist mucous membranes). negative: Pale Conjunctivae, Scleral Icterus (R), Scleral Icterus (L) Neck: positive: Trachea midline, Supple Respiratory/Chest: positive: Lungs Clear, Rales (inspiratory/expiratory Left sided). negative: Respiratory Distress, Accessory Muscle Use, Rhonchi, Stridor Cardiovascular: positive: Regular Rhythm, S1, S2, Tachycardia. negative: Murmur Gastrointestinal/Abdominal: positive: Soft. negative: Distended, Guarding, Rebound, Tenderness Musculoskeletal: positive: Normal Inspection Extremity: negative: Swelling, Calf Tenderness, Erythema Integumentary: negative: Diaphoresis, Rash, Bruising Neurologic: positive: Fully Oriented, Alert, Normal Mood/Affect, Normal Response , Motor Strength 5/5 Heart Score/ECG Review - History History: Slightly suspicious - Age Age: 45-65 - Risk Factors Risk Factors Heart Score: Yes Hx Hypertension, Yes Smoking History Based on the list above the patient has:: 1-2 risk factors - Troponin Troponin: </= normal limit #1 biatrial enlargement, pulmonary disease pattern, tachycardia 05/24/17 22:26 ED Treatment Course - LABORATORY CBC & Chemistry Diagram: 05/24/17 21:26 05/24/17 21:26 - RADIOLOGY Radiology Studies Ordered: Category Date Time Status CHEST X-RAY PORTABLE* [RAD] Stat Radiology 05/24/17 20:31 Taken Medical Decision Making - Medical Decision Making 57yo F with PMH of COPD, HTN, anxiety presenting with chest pain and difficulty breathing. Pt is well-appearing on exam, in NAD. Pt reports her current symptoms are the same as when she presented to the hospital last time for COPD exacerbation. EKG CXR CBC with diff, CMP, blood cultures U/A, urine cultures trops BNP Solu-medrol 125mg IVPB Levaquin 750mg IVPB 05/24/17 22:16 05/24/17 22:35 EKG reveals biatrial enlargement, pulmonary disease pattern, tachycardia CBC with diff reveals leukocytosis CMP unremarkable trops (-) BNP elevated 550 05/24/17 22:47 CXR with Right lower lobe infiltrates, official report pending. Pt should be adm for COPD exacerbation likely 2/ pna. 05/24/17 22:57 05/24/17 23:06 Hospitalist contacted and accepted adm. *DC/Admit/Observation/Transfer Diagnosis at time of Disposition: COPD exacerbation - Discharge Dispostion Condition at time of disposition: Guarded Admit: Yes - Referrals Referrals: Marija Ro MD [Primary Care Provider] -
[2017-05-24 21:52] LABS: BASOPHIL 0.9 % (0-2.0); MCH 22.4 pg (25.7-33.7); MCHC 31.2 g/dl (32.0-36.0); MEAN CELL VOLUME 71.8 fl (80-96); MEAN PLT VOLUME 8.9 fl (7.5-11.1); NEUTROPHILS 82.3 % (42.8-82.8); PLATELET COUNT 227 K/MM3 (134-434); RDW 18.9 % (11.6-15.6); WHITE BLOOD COUNT 15.3 K/mm3 (4.0-10.0)
[2017-05-24 22:24] LABS: ALBUMIN 3.1 g/dl (3.4-5.0); ANION GAP 8 (8-16); BILIRUBIN,TOTAL 0.2 mg/dL (0.2-1.0); CALCIUM 9.5 mg/dL (8.5-10.1); CO2 31 mmol/L (21-32); CREATININE 1.1 mg/dL (0.55-1.02); GLUCOSE,RANDOM 131 mg/dL (74-106); SGOT/AST 13 U/L (15-37); SGPT/ALT 17 U/L (12-78); TOT PROT 7.3 g/dl (6.4-8.2)
[2017-05-24 22:26] LABS: ALK PHOS 85 U/L (45-117); CPK 71 IU/L (26-192); TROPONIN I < 0.02 ng/ml (0.00-0.05)
--- NOTE | 2017-05-24 23:26 | PN ---
Teaching Attending Note Name of Resident: Mahad Pendleton ATTENDING PHYSICIAN STATEMENT I saw and evaluated the patient. I reviewed the resident's note and discussed the case with the resident. I agree with the resident's findings and plan as documented. SUBJECTIVE: 57 yo F with pmhx of COPD (on 2L Home 02), bronchiectesis, former smoker, poly substance abuse who presents with shortness of breath. Recent admission in March for Sepsis secondary to pneumnonia and COPD exacerbation. Currently states her shortness of breath has improved. OBJECTIVE: Physical: VS: Vital Signs Period Temp Pulse Resp BP Sys/Echevarria Pulse Ox Last 24 Hr 123-130 20 126/77 96-100 GEN: NAD, Resting in bed, able to speak full sentences HEENT: NCAT, PERRL, Throat without erythema or exudates CARD: S Tach S1, S2 RESP: Decreased BS at bases ABD: BS X4, NTD to palpation EXT: - C/C/E CBCD WBC 15.3 K/mm3 (4.0-10.0) H D 05/24/17 21:26 RBC 4.86 M/mm3 (3.60-5.2) 05/24/17 21:26 Hgb 10.9 GM/dL (10.7-15.3) 05/24/17 21:26 Hct 34.9 % (32.4-45.2) 05/24/17 21:26 MCV 71.8 fl (80-96) L 05/24/17 21:26 MCHC 31.2 g/dl (32.0-36.0) L 05/24/17 21:26 RDW 18.9 % (11.6-15.6) H 05/24/17 21:26 Plt Count 227 K/MM3 (134-434) D 05/24/17 21:26 MPV 8.9 fl (7.5-11.1) 05/24/17 21:26 CMP Sodium 145 mmol/L (136-145) 05/24/17 21:26 Potassium 4.5 mmol/L (3.5-5.1) 05/24/17 21:26 Chloride 106 mmol/L (98-107) 05/24/17 21:26 Carbon Dioxide 31 mmol/L (21-32) 05/24/17 21:26 Anion Gap 8 (8-16) 05/24/17 21:26 BUN 25 mg/dL (7-18) H 05/24/17 21:26 Creatinine 1.1 mg/dL (0.55-1.02) H 05/24/17 21:26 Creat Clearance w eGFR 51.02 (>60) 05/24/17 21:26 Random Glucose 131 mg/dL (74-106) H 05/24/17 21:26 Calcium 9.5 mg/dL (8.5-10.1) 05/24/17 21:26 Total Bilirubin 0.2 mg/dL (0.2-1.0) D 05/24/17 21:26 AST 13 U/L (15-37) L 05/24/17 21:26 ALT 17 U/L (12-78) D 05/24/17 21:26 Alkaline Phosphatase 85 U/L (45-117) 05/24/17 21:26 Total Protein 7.3 g/dl (6.4-8.2) 05/24/17 21:26 Albumin 3.1 g/dl (3.4-5.0) L 05/24/17 21:26 CARDIAC ENZYMES Creatine Kinase 71 IU/L (26-192) 05/24/17 21:26 Troponin I < 0.02 ng/ml (0.00-0.05) 05/24/17 21:26 Ambulatory Orders Albuterol 0.083% Nebulizer [place] [Ventolin 0.083% Nebulizer Soln -] 1 amp NEB Q4H PRN #0 amp 09/25/16 Ferrous Sulfate [Feosol] 325 mg PO DAILY #30 cap 03/09/17 Hydroxyzine Pamoate [Vistaril -] 25 mg PO DAILY #30 cap 03/16/17 Salmeterol/Fluticasone [Advair 100Mcg/50Mcg -] 1 puff IH BID #60 inhaler Hydrochlorothiazide 25 mg PO DAILY 05/24/17 Metoprolol Tartrate 50 mg PO BID 05/24/17 Prednisone [Deltasone -] 20 mg PO DAILY 05/24/17 EKG: S Tach Qtc 468 CXR: ? LLL consolidation, awaiting final read ASSESSMENT AND PLAN: 57 F with pmhx of COPD on home 02, Bonchiectasis, polysubstance abuse, who presents with sepsis seconday to pneumonia and COPD exacerbation 1.) Severe Sepsis due to ?CAP - S/P Levaquin in ED- Continue with close monitoring of Qtc - [place] Cx - LA Stat & repeat - IVF - Urine Ags - UA, U cx 2.) Acute Exacerbation of COPD - Duonebs Atc/Prn - Solu-Medrol - C/W Home meds - Pulm consult 3.) HTN - Hold BB until Exacerbation improves 4.) Microcytic Anemia - C/W Iron - Needs outpt. Colonoscopy 5.) Dvt Ppx - Heparin [address] in Med- Sx
[2017-05-24 23:45] LABS: URINE APPEARANCE SLCLOUDY; URINE BILIRUBIN NEGATIVE (NEGATIVE); URINE BLOOD NEGATIVE (NEGATIVE); URINE COLOR YELLOW; URINE GLUCOSE (UA) 1+ (NEGATIVE); URINE KETONE NEGATIVE (NEGATIVE); URINE LEUK ESTERASE TRACE (NEGATIVE); URINE NITRITE NEGATIVE (NEGATIVE); URINE UROBILINOGEN NEGATIVE mg/dL (0.2-1.0)
[2017-05-24 23:47] LABS: URINE PROTEIN 2+ (NEGATIVE)
[2017-05-24 23:48] LABS: URINE HYALINE CAST 1 /lpf; URINE MUCUS RARE; URINE WBC 11 /hpf (3-5)
--- NOTE | 2017-05-25 00:06 | HP ---
CHIEF COMPLAINT: Chest Pain and SOB HISTORY OF PRESENT ILLNESS: Pt is a 57yo F w/ PMHx of COPD on home O2 2L, former smoker, multiple prior COPD exacerbations who presents to ER w/ chest pain and SOB. Patient was admitted this past March for sepsis 2/2 pneumonia and COPD exacerbation. She states that this evening, after she returned from a restaurant, she experienced sudden onset sharp midsternal CP, nonradiating, described as a "tightness", worse with deep breathing. She had associated SOB on exertion. She denies cough , sputum production, fevers, chills. She denies exposure to food allergens or sick contacts. Denies orthopnea or swelling. Denies L sided CP. ER course was notable for: (1) Solumedrol 125mg IVPB x1 (2) Levaquin 750mg IVPB x1 (3) CXR - no discrete consolidation - official read pending (4) EKG - atrial enlargement - chronic, likely 2/2 pulm disease, and QTc 464 Recent Travel: Denies PAST MEDICAL HISTORY: COPD (on 2L oxygen), HTN, Hx of polysubstance abuse, PAST SURGICAL HISTORY: Denies Social History: Smokin pack year smoking hx, not current smoker Alcohol: Occasional Drugs: Former crack cocaine abuser; not a current user Family History: Hx of Kidney disease mother and father - kidney failure requiring HD Allergies: black walnut Allergy (Severe, Verified 05/24/17 20:06) Hives pt states she is not allergic to black walnuts sulfamethoxazole [From Bactrim] Allergy (Severe, Verified 05/24/17 20:06) Swelling trimethoprim [From Bactrim] Allergy (Severe, Verified 05/24/17 20:06) Swelling PECAN Allergy (Severe, Uncoded 05/24/17 20:06) Hives pt states she is not allergic to PECANS REVIEW OF SYSTEMS CONSTITUTIONAL: Absent: fever, chills, diaphoresis, generalized weakness, malaise, loss of appetite, weight change HEENT: Absent: rhinorrhea, nasal congestion, throat pain, throat swelling, difficulty swallowing, mouth swelling, ear pain, eye pain, visual changes CARDIOVASCULAR: Absent: syncope, palpitations, irregular heart rate, lightheadedness, peripheral edema Present: chest pain, chest tightness RESPIRATORY: Absent: cough, orthopnea, wheezing, stridor, hemoptysis Present: shortness of breath, dyspnea with exertion GASTROINTESTINAL: Absent: abdominal pain, abdominal distension, nausea, vomiting, diarrhea, constipation, melena, hematochezia GENITOURINARY: Absent: dysuria, frequency, urgency, hesitancy, hematuria, flank pain, genital pain MUSCULOSKELETAL: Absent: myalgia, arthralgia, joint swelling, back pain, neck pain SKIN: Absent: rash, itching, pallor HEMATOLOGIC/IMMUNOLOGIC: Absent: easy bleeding, easy bruising, lymphadenopathy, frequent infections ENDOCRINE: Absent: unexplained weight gain, unexplained weight loss, heat intolerance, cold intolerance NEUROLOGIC: Absent: headache, focal weakness or paresthesias, dizziness, unsteady gait, seizure, mental status changes, bladder or bowel incontinence PSYCHIATRIC: Absent: anxiety, depression, suicidal or homicidal ideation, hallucinations. PHYSICAL EXAMINATION Vital Signs - 24 hr 05/24/17 05/24/17 20:06 20:25 Pulse Rate 130 H 123 H Respiratory 20 Rate Blood Pressure 126/77 O2 Sat by Pulse 100 96 Oximetry (%) GEN: AAOx3, NAD, Lying comfortably HEENT: PERRLA, EOMi, No cervical LAD, no tonsilar adenopathy CV: S1, S2, RRR LUNG: Bibasilar crackles, moderate air movement, minimal expiratory wheezing anteriorly ABD: Soft, NT, ND, normoactive BS MSK: No edema, no erythema, normal ROM NEURO: CN 2-12 intact, MSK 5/5, sensation intact in face/body bilaterally, 2+ reflexes Laboratory Results - last 24 hr 05/24/17 05/24/17 05/24/17 21:26 21:26 21:26 WBC 15.3 H D RBC 4.86 Hgb 10.9 Hct 34.9 MCV 71.8 L MCH 22.4 L MCHC 31.2 L RDW 18.9 H Plt Count 227 D MPV 8.9 Neutrophils % 82.3 Lymphocytes % 10.2 D Monocytes % 6.6 Eosinophils % 0.0 D Basophils % 0.9 Sodium 145 Potassium 4.5 Chloride 106 Carbon Dioxide 31 Anion Gap 8 BUN 25 H Creatinine 1.1 H Creat Clearance w eGFR 51.02 Random Glucose 131 H Calcium 9.5 Total Bilirubin 0.2 D AST 13 L ALT 17 D Alkaline Phosphatase 85 Creatine Kinase 71 Troponin I < 0.02 B-Natriuretic Peptide 550.09 H Total Protein 7.3 Albumin 3.1 L Urine Color Urine Appearance Urine pH Urine Protein Urine Glucose (UA) Urine Ketones Urine Blood Urine Nitrite Urine Bilirubin Urine Urobilinogen Ur Leukocyte Esterase Urine RBC Urine WBC Ur Epithelial Cells Hyaline Casts Urine Mucus 05/24/17 23:34 WBC RBC Hgb Hct MCV MCH MCHC RDW Plt Count MPV Neutrophils % Lymphocytes % Monocytes % Eosinophils % Basophils % Sodium Potassium Chloride Carbon Dioxide Anion Gap BUN Creatinine Creat Clearance w eGFR Random Glucose Calcium Total Bilirubin AST ALT Alkaline Phosphatase Creatine Kinase Troponin I B-Natriuretic Peptide Total Protein Albumin Urine Color Yellow Urine Appearance Slcloudy Urine pH 5.0 Urine Protein 2+ H Urine Glucose (UA) 1+ H Urine Ketones Negative Urine Blood Negative Urine Nitrite Negative Urine Bilirubin Negative Urine Urobilinogen Negative Ur Leukocyte Esterase Trace Urine RBC None Urine WBC 11 Ur Epithelial Cells Rare Hyaline Casts 1 Urine Mucus Rare Home Medication List Medication Instructions Recorded Confirmed Type Hydrochlorothiazide 25 mg PO DAILY 05/24/17 05/24/17 History Metoprolol Tartrate 50 mg PO BID 05/24/17 05/24/17 History Prednisone [Deltasone -] 20 mg PO DAILY 05/24/17 05/24/17 History Active Medications Generic Name Dose Route Start Last Admin Trade Name Freq PRN Reason Stop Dose Admin Albuterol/Ipratropium 1 amp 05/25/17 06:00 Duoneb - NEB QIDR [facility] Ferrous Sulfate 325 mg 05/25/17 10:00 Feosol - PO DAILY [facility] Heparin Sodium (Porcine) 5,000 unit 05/25/17 06:00 Heparin - SQ TID [facility] Hydrochlorothiazide 25 mg 05/25/17 10:00 Hctz - PO DAILY ZACHARY Levofloxacin 150 mls @ 100 mls/hr 05/25/17 09:00 Levaquin 750 Mg Premixed Ivpb - IVPB 05/25/17 10:29 DAILY ONE Sodium Chloride 1,000 mls @ 75 mls/hr 05/25/17 01:30 Normal Saline - IV ASDIR [facility] Methylprednisolone Sodium Succinate 40 mg 05/25/17 10:00 Solu-Medrol - IVPB BID ZACHARY Fluticasone/Salmeterol 1 puff 05/25/17 01:15 Advair 100mcg/50mcg - IH BID [facility] ASSESSMENT/PLAN: Pt is a 57yo F w/ PMHx of COPD on home O2 2L, former smoker, multiple prior COPD exacerbations who presents to ER w/ chest tightness and SOB admitted for COPD Exacerbation and Severe Sepsis # Severe Sepsis (leuko, tachy, source, LA) - secondary to ?CAP - Continue w/ Levaquin 750mg IVPB - only one time ordered - watch as QTc 464 - repeat EKG ordered - Pt allergic to Bactrim + Sulfa - IVNS @ 75cc/hr - Blood cx + Urine cx + Trend lactic acid - Urinary Antigens - Influenza Swab # COPD Exacerbation - possibly secondary to CAP - Solumedrol 40mg BID IVPB - Duonebs - Continue Advair - Consult Pulmonary - Continue O2 at 2L - pt uses at home # Atypical Chest Pain - Likely due to COPD Exac - Troponins negative x1, unlikely cardiac in nature # Microcytic Anemia - likely due to RUBY - Fe Panel previously showed low Fe, low Fesat, low-normal ferritin - Continue Fe supplements - Needs outpatient Colonoscopy # Hx of HTN - Continue HCTZ - Hold beta mariaelena (Metoprolol 50mg BID) until exacerbation resolves - Monitor BP closely # FEN - Fluids: IVNS @ 75cc/hr due to lactic acidosis - Electrolytes: No abnormalities - Nutrition: Regular diet # Prophylaxis - DVT: Heparin SQ TID - GI: Not indicated - Deconditioning: PT not needed, patient is ambulatory # Dispo - Admit to Med/Surg # Med Rec - Home medications differ from discharge medications - Day team to reconcile meds with pharmacy Case was discussed with Dr. Galvan and Dr. Roc Pendleton MD - PGY1 Internal Medicine Visit type - Emergency Visit Emergency Visit: Yes ED Registration Date: 05/24/17 Care time: The patient presented to the Emergency Department on the above date and was hospitalized for further evaluation of their emergent condition. - New Patient This patient is new to me today: Yes Date on this admission: 05/25/17 - Critical Care Critical Care patient: No
[2017-05-25] MEDS: FLUTICASONE/SALMETEROL 100 MCG/50 MCG DISKUS IH SCH ×3 (02:21→21:41)
[2017-05-25] MEDS: SODIUM CHLORIDE 1,000 ML IV SCH (02:21)
[2017-05-25 04:27] VITALS: BMI 29.0
[2017-05-25] MEDS ORDERED: amLODIPine BESYLATE 5 MG TABLET (FP) PO ONE (05:33)
[2017-05-25] MEDS: ALBUTEROL SO4 2.5/IPRATROPIUM 0.5 INH SOL 3 ML VIAL.NEB. NEB SCH ×3 (06:16→23:02)
[2017-05-25] MEDS: HEPARIN NA (PORCINE) 5,000 UNITS/ML 1ML VIAL SQ SCH ×4 (06:17→21:44)
[2017-05-25] MEDS ORDERED: LEVOFLOXACIN 750 MG IVPB 150 ML IVPB ONE (09:00)
[2017-05-25] MEDS ORDERED: PT OWN MED DRAWER 7, Y5N ONE (10:29)
[2017-05-25] MEDS: methylPREDNISolone NA SUCC 40 MG/1 ML VIAL IVPB SCH ×2 (10:48→21:41)
[2017-05-25] MEDS: FERROUS SO4 325 MG TABLET (FP) PO SCH (10:48)
[2017-05-25] MEDS: HYDROCHLOROTHIAZIDE 25 MG TABLET (FP) PO SCH (10:48)
--- NOTE | 2017-05-25 11:18 | CON.PULM ---
Consult Consult Specialty:: PULMONARY Referred by:: Dr. Galvan Reason for Consultation:: COPD - History of Present Illness Chief Complaint: shortness of breath History of Present Illness: 57yo female with h/o HTN, COPD, bronchiectasis, chronic hypoxic respiratory failure on home O2 since December 2016, anxiety who was admitted with worsening shortness of breath and chest pain. She reports a nonproductive cough and wheezing. No fevers, chills or sweats. She was supposed to be on Incruse daily, Advair BID but only uses her Advair once a day and takes her Incruse intermittently. Her brother recently moved into the house and smokes inside. She herself quit 2 years ago but was smoking 2 PPD prior to quitting. - History Source History Provided By: Patient, Medical Record Limitations to Obtaining History: No Limitations - Past Medical History Cardio/Vascular: Yes: HTN, Pulmonary Hypertension Pulmonary: Yes: COPD, O2 Dependent Gastrointestinal: Yes: Other Hepatobiliary: Yes: Other (Fatty liver) ...LMP: 05/18/11 - Past Surgical History Past Surgical History: Yes: None - Alcohol/Substance Use Hx Alcohol Use: No History of Substance Use: reports: None - Smoking History Smoking history: Former smoker Have you smoked in the past 12 months: No Aproximately how many cigarettes per day: 0 If you are a former smoker, when did you quit?: 2014 - Social History Usual Living Arrangement: With Parent ADL: Independent History of Recent Travel: No Home Medications - Allergies Allergies/Adverse Reactions: Allergies Allergy/AdvReac Type Severity Reaction Status Date / Time black walnut Allergy Severe Hives Verified 05/24/17 20:06 sulfamethoxazole Allergy Severe Swelling Verified 05/24/17 20:06 [From Bactrim] trimethoprim [From Bactrim] Allergy Severe Swelling Verified 05/24/17 20:06 PECAN Allergy Severe Hives Uncoded 05/24/17 20:06 - Home Medications Home Medications: Ambulatory Orders Albuterol 0.083% Nebulizer Destiny [Ventolin 0.083% Nebulizer Soln -] 1 amp NEB Q4H PRN #0 amp 09/25/16 Ferrous Sulfate [Feosol] 325 mg PO DAILY #30 cap 03/09/17 Hydroxyzine Pamoate [Vistaril -] 25 mg PO DAILY #30 cap 03/16/17 Salmeterol/Fluticasone [Advair 100Mcg/50Mcg -] 1 puff IH BID #60 inhaler Hydrochlorothiazide 25 mg PO DAILY 05/24/17 Metoprolol Tartrate 50 mg PO BID 05/24/17 Prednisone [Deltasone -] 20 mg PO DAILY 05/24/17 Review of Systems - Review of Systems Constitutional: denies: Chills, Fever Eyes: denies: Recent Change in Vision HENT: denies: Nasal Congestion, Throat Pain Neck: denies: Stiffness, Tenderness Cardiovascular: reports: Chest Pain, Shortness of Breath. denies: Edema, Palpitations Respiratory: reports: Cough, Exercise Intolerance, SOB on Exertion, Wheezing. denies: Hemoptysis Gastrointestinal: denies: Abdominal Pain, Nausea, Vomiting Genitourinary: denies: Dysuria, Hematuria Neurological: denies: Dizziness, Headache Endocrine: denies: Unexplained Weight Loss Physical Exam Vital Sings: Vital Signs Temperature 98.3 F 05/25/17 10:00 Pulse Rate 91 H 05/25/17 10:00 Respiratory Rate 20 05/25/17 10:00 Blood Pressure 145/93 05/25/17 10:00 O2 Sat by Pulse Oximetry (%) 97 05/25/17 02:08 Constitutional: Yes: Other (mildly tachypenic with speaking) Eyes: Yes: Conjunctiva Clear, EOM Intact HENT: Yes: Atraumatic, Normocephalic Neck: Yes: Supple, Trachea Midline Cardiovascular: Yes: Regular Rate and Rhythm Respiratory: Yes: Diminished (distant breath sounds). No: Wheezes ...Clubbing: No Gastrointestinal: Yes: Normal Bowel Sounds, Soft. No: Tenderness Edema: No Neurological: Yes: Alert, Oriented Imaging - Results Chest X-ray: Report Reviewed, Image Reviewed (no infiltrates) Problem List - Problems (1) COPD exacerbation Code(s): J44.1 - CHRONIC OBSTRUCTIVE PULMONARY DISEASE W (ACUTE) EXACERBATION (2) Chronic respiratory failure with hypoxia Code(s): J96.11 - CHRONIC RESPIRATORY FAILURE WITH HYPOXIA (3) Bronchiectasis Code(s): J47.9 - BRONCHIECTASIS, UNCOMPLICATED (4) COPD (chronic obstructive pulmonary disease) with acute bronchitis Code(s): J44.0 - CHRONIC OBSTRUCTIVE PULMON DISEASE W ACUTE LOWER RESP INFCT (5) Emphysema lung Code(s): J43.9 - EMPHYSEMA, UNSPECIFIED (6) Lactic acidosis Code(s): E87.2 - ACIDOSIS Assessment/Plan Acute COPD Exacerbation Bronchiectasis Emphysema Chronic Hypoxic Respiratory Failure HTN - agree with medrol - inhaled bronchodilators standing and PRN - empiric antibiotics - O2 to keep SpO2 >90% - re-educated pt that her Incruse and Advair are daily maintenance inhalers and should be used as scheduled regardless of how she feels - instructed her that her brother must smoke outside the house as she may be frequently exacerbated by the smoke - DVT prophylaxis Thank you for this consult Aaron Blakely MD
--- NOTE | 2017-05-25 11:57 | EKG ---
Test Reason : Blood Pressure : / mmHG Vent. Rate : 095 BPM Atrial Rate : 095 BPM P-R Int : 138 ms QRS Dur : 070 ms QT Int : 366 ms P-R-T Axes : 082 052 067 degrees QTc Int : 459 ms NORMAL SINUS RHYTHM ATRIAL ABNORMALITY WHEN COMPARED WITH ECG OF 24-MAY-2017 20:26, RHYTHM CHANGE ABOVE. UPWARD COVING OF ST SEGMENTS INLEADS II IIIaVF SECONDARY TO EARLY REPOLARIZATION, CANNOT EXCLUDE CURRENT IOF INJURY OR PERICARDITIS REPEAT EKG IF CLINICALLY INDICATED Confirmed by DOYLE LESTER MD ([id number]) on 05/25/2017 11:57:23 AM Referred By: Reginaldo BORRERO Confirmed By:DOYLE LESTER MD
[2017-05-25 14:31] LABS: ALBUMIN 2.7 g/dl (3.4-5.0); ANION GAP 7 (8-16); CALCIUM 8.8 mg/dL (8.5-10.1); CO2 31 mmol/L (21-32); CREATININE 1.1 mg/dL (0.55-1.02); GLUCOSE,RANDOM 161 mg/dL (74-106); SGOT/AST 13 U/L (15-37); SGPT/ALT 18 U/L (12-78); TOT PROT 6.6 g/dl (6.4-8.2)
[2017-05-25 14:33] LABS: ALK PHOS 73 U/L (45-117); BILIRUBIN,TOTAL 0.3 mg/dL (0.2-1.0); TROPONIN I < 0.02 ng/ml (0.00-0.05)
[2017-05-25] MEDS: PANTOPRAZOLE 40 MG TABLET (FP) PO SCH (14:44)
--- NOTE | 2017-05-25 16:38 | PN ---
Teaching Attending Note Name of Resident: Chris Lawton ATTENDING PHYSICIAN STATEMENT I saw and evaluated the patient. I reviewed the resident's note and discussed the case with the resident. I agree with the resident's findings and plan as documented. SUBJECTIVE:states breathing has improved since arrival. states she has been taking prednisone 60mg at home since being discharge in March. She missed her pulmonary follow up appt 2 weeks ago and had it re-scheduled for this week. states the chest heaviness is mostly resolved but occasionally has it on deep inspiration. denies fever, chills, cough, N/V/C/D OBJECTIVE: Last Vital Signs Temp Pulse Resp BP Pulse Ox 98.4 F 99 H 21 143/91 100 05/25/17 15:34 05/25/17 15:34 05/25/17 15:34 05/25/17 15:34 05/25/17 12:01 General NAD CV S1 S2 tachy Lungs diffuse rhonchi. poor inspiratory effort Abdomen soft NT/ND extremities no pedal edema ASSESSMENT AND PLAN: 57yo F wtih PMH COPD on 2L NC at home, HTN and previous smoker (quit 2 years ago ) presented to the Er with SOB 1. Acute COPD exacerbation- clinically improved. saturating 98% on 2L NC. on levaquin day 2. will complete short 5 day course. (noted Qtc is slightly prolonged but is shorter from previous stay of Qtc 570) CXR negative for signs of infiltrate or consolidation and do not believe to have PNA at this time. on medrol 40mg BID. encouraged to use inhalers as indicated. further management per pulm. cont nebs prn. supplemental oxygen 2. Lactic acidosis- trending down. monitor 3. Glucosuria- check A1c. sugars could likely be elevated due to steroid use. random glucose elevated but not high enough to be causing glucosuria. 4. HTN- controlled. cont home management 5. DVT ppx- hep sq
--- NOTE | 2017-05-25 17:43 | EKG ---
Test Reason : Blood Pressure : / mmHG Vent. Rate : 125 BPM Atrial Rate : 125 BPM P-R Int : 140 ms QRS Dur : 068 ms QT Int : 322 ms P-R-T Axes : 085 062 068 degrees QTc Int : 464 ms SINUS TACHYCARDIA BIATRIAL ENLARGEMENT PULMONARY DISEASE PATTERN ABNORMAL ECG WHEN COMPARED WITH ECG OF 25-MAR-2017 11:55, T WAVE INVERSION NOW EVIDENT IN V2. REPEAT EKG IF CLINICALLY INDICATED Confirmed by DOYLE LESTER MD ([id number]) on 05/25/2017 5:43:38 PM Referred By: Confirmed By:DOYLE LESTER MD
--- NOTE | 2017-05-25 21:48 | PN ---
Physical Exam: SUBJECTIVE: Patient seen and examined at bedside. Patient states her breathing is better today. Afebrile overnight. OBJECTIVE: Vital Signs Period Temp Pulse Resp BP Sys/Echevarria Pulse Ox Last 24 Hr 97.6 F-98.5 F 91-107 18-21 136-153/79-97 97-100 GENERAL: The patient is awake, alert, and fully oriented, in no acute distress. HEAD: Normal with no signs of trauma. EYES: extraocular movements intact, sclera anicteric, conjunctiva clear. No ptosis. NECK: Trachea midline, full range of motion, supple. LUNGS: Breath sounds equal, clear to auscultation bilaterally, no wheezes, no crackles, no accessory muscle use. HEART: Regular rate and rhythm, S1, S2 without murmur, rub or gallop. ABDOMEN: Soft, nontender, nondistended, normoactive bowel sounds, no guarding, no rebound. EXTREMITIES: 2+ pulses, warm, well-perfused, no edema. NEUROLOGICAL: Cranial nerves II through X grossly intact. Normal speech, gait not observed. PSYCH: Normal mood, normal affect. SKIN: Warm, dry, normal turgor, no rashes or lesions noted Laboratory Results - last 24 hr 05/24/17 05/24/17 05/25/17 23:34 23:40 01:45 Sodium Potassium Chloride Carbon Dioxide Anion Gap BUN Creatinine Creat Clearance w eGFR POC Glucometer Random Glucose Lactic Acid 3.4 H* 2.4 H* Calcium Phosphorus Total Bilirubin AST ALT Alkaline Phosphatase Troponin I Total Protein Albumin Urine Color Yellow Urine Appearance Slcloudy Urine pH 5.0 Ur Specific [place] 1.025 Urine Protein 2+ H Urine Glucose (UA) 1+ H Urine Ketones Negative Urine Blood Negative Urine Nitrite Negative Urine Bilirubin Negative Urine Urobilinogen Negative Ur Leukocyte Esterase Trace Urine RBC None Urine WBC 11 Ur Epithelial Cells Rare Hyaline Casts 1 Urine Mucus Rare 05/25/17 05/25/17 05/25/17 06:20 08:00 13:45 Sodium Potassium Chloride Carbon Dioxide Anion Gap BUN Creatinine Creat Clearance w eGFR POC Glucometer 178 Random Glucose Lactic Acid 2.4 H* Calcium Phosphorus 2.4 L D Total Bilirubin AST ALT Alkaline Phosphatase Troponin I Total Protein Albumin Urine Color Urine Appearance Urine pH Ur Specific [place] Urine Protein Urine Glucose (UA) Urine Ketones Urine Blood Urine Nitrite Urine Bilirubin Urine Urobilinogen Ur Leukocyte Esterase Urine RBC Urine WBC Ur Epithelial Cells Hyaline Casts Urine Mucus 05/25/17 05/25/17 13:45 13:45 Sodium 143 Potassium 4.5 Chloride 105 Carbon Dioxide 31 Anion Gap 7 L BUN 24 H Creatinine 1.1 H Creat Clearance w eGFR 51.02 POC Glucometer Random Glucose 161 H D Lactic Acid 2.4 H* Calcium 8.8 Phosphorus Total Bilirubin 0.3 D AST 13 L ALT 18 Alkaline Phosphatase 73 Troponin I < 0.02 Total Protein 6.6 Albumin 2.7 L Urine Color Urine Appearance Urine pH Ur Specific [place] Urine Protein Urine Glucose (UA) Urine Ketones Urine Blood Urine Nitrite Urine Bilirubin Urine Urobilinogen Ur Leukocyte Esterase Urine RBC Urine WBC Ur Epithelial Cells Hyaline Casts Urine Mucus Active Medications Generic Name Dose Route Start Last Admin Trade Name Freq PRN Reason Stop Dose Admin Albuterol/Ipratropium 1 amp 05/25/17 06:00 05/25/17 17:01 Duoneb - NEB 1 amp QIDR [facility]ACH[facility] Administration Ferrous Sulfate 325 mg 05/25/17 10:00 05/25/17 10:48 Feosol - PO 325 mg DAILY ZACHARY Administration Heparin Sodium (Porcine) 5,000 unit 05/25/17 06:00 05/25/17 14:43 Heparin - SQ 5,000 unit TID [facility] Administration Hydrochlorothiazide 25 mg 05/25/17 10:00 05/25/17 10:48 Hctz - PO 25 mg DAILY [facility] Administration Sodium Chloride 1,000 mls @ 75 mls/hr 05/25/17 01:30 05/25/17 02:21 Normal Saline - IV 75 mls/hr ASDIR [facility] Administration Methylprednisolone Sodium Succinate 40 mg 05/25/17 10:00 05/25/17 10:48 Solu-Medrol - IVPB 40 mg BID [facility] Administration Pantoprazole Sodium 40 mg 05/25/17 13:30 05/25/17 14:44 Protonix - PO 40 mg DAILY [facility]ACH[facility] Administration Fluticasone/Salmeterol 1 puff 05/25/17 01:15 05/25/17 10:47 Advair 100mcg/50mcg - IH 1 puff BID [facility]ACH[facility] Administration ASSESSMENT/PLAN: Pt is a 57yo F w/ PMHx of COPD on home O2 2L, former smoker, multiple prior COPD exacerbations who presents to ER w/ chest tightness and SOB admitted for COPD Exacerbation and Severe Sepsis # Severe Sepsis - secondary to possible CAP vs bronchitis - Continue w/ Levaquin 750mg IVPB - one time order placed - watch as QTc 464 - repeat EKG ordered - Pt allergic to Bactrim + Sulfa - IVNS @ 75cc/hr - Blood cx & Urine cx pending -Trend lactic acid in AM - Urinary Antigens - Influenza Swab negative # COPD Exacerbation - possibly secondary to CAP - Solumedrol 40mg BID IVPB - Duonebs - Continue Advair - Pulmonary agrees with current treatment - Continue O2 at 2L - pt uses at home # Atypical Chest Pain - Likely due to COPD Exac - Troponins negative x1, unlikely cardiac in nature # Microcytic Anemia - likely due to RUBY - Fe Panel previously showed low Fe, low Fesat, low-normal ferritin - Continue Fe supplements - Needs outpatient Colonoscopy # Hx of HTN - Continue HCTZ - Hold beta mariaelena (Metoprolol 50mg BID) until exacerbation resolves - Monitor BP closely # FEN - Fluids: IVNS @ 75cc/hr due to lactic acidosis - Electrolytes: No abnormalities - Nutrition: Regular diet # Prophylaxis - DVT: Heparin SQ TID - GI: protonix 40 mg PO # Dispo - Admit to Med/Surg Problem List - Problems (1) Acute bronchitis Code(s): J20.9 - ACUTE BRONCHITIS, UNSPECIFIED Qualifiers: Bronchitis organism: unspecified organism Qualified Code(s): J20.9 - Acute bronchitis, unspecified (2) COPD exacerbation Code(s): J44.1 - CHRONIC OBSTRUCTIVE PULMONARY DISEASE W (ACUTE) EXACERBATION (3) Lactic acidosis Code(s): E87.2 - ACIDOSIS (4) Shortness of breath Code(s): R06.02 - SHORTNESS OF BREATH Visit type - Emergency Visit Emergency Visit: Yes ED Registration Date: 05/24/17 Care time: The patient presented to the Emergency Department on the above date and was hospitalized for further evaluation of their emergent condition. - New Patient This patient is new to me today: Yes Date on this admission: 05/25/17 - Critical Care Critical Care patient: No
[2017-05-26] MEDS: ALBUTEROL SO4 2.5/IPRATROPIUM 0.5 INH SOL 3 ML VIAL.NEB. NEB SCH ×5 (05:47→18:00)
[2017-05-26] MEDS: HEPARIN NA (PORCINE) 5,000 UNITS/ML 1ML VIAL SQ SCH ×3 (06:12→21:38)
[2017-05-26] MEDS: SODIUM CHLORIDE 1,000 ML IV SCH (06:12)
[2017-05-26 07:28] LABS: MCH 22.2 pg (25.7-33.7); MCHC 30.9 g/dl (32.0-36.0); MEAN CELL VOLUME 71.7 fl (80-96); MEAN PLT VOLUME 9.3 fl (7.5-11.1); PLATELET COUNT 196 K/MM3 (134-434); RDW 19.1 % (11.6-15.6); WHITE BLOOD COUNT 18.1 K/mm3 (4.0-10.0)
[2017-05-26 08:14] LABS: ANION GAP 9 (8-16); CALCIUM 9.2 mg/dL (8.5-10.1); CO2 29 mmol/L (21-32); GLUCOSE,RANDOM 93 mg/dL (74-106); PHOSPHOROUS 2.9 mg/dL (2.5-4.9)
[2017-05-26] MEDS ORDERED: LEVOFLOXACIN 750 MG IVPB 150 ML IVPB ONE ×2 (09:00→19:12)
[2017-05-26] MEDS ORDERED: PT OWN MED DRAWER 7, Y5N ONE (10:38)
[2017-05-26] MEDS: FLUTICASONE/SALMETEROL 100 MCG/50 MCG DISKUS IH SCH (10:53)
[2017-05-26] MEDS: FERROUS SO4 325 MG TABLET (FP) PO SCH (10:54)
[2017-05-26] MEDS: HYDROCHLOROTHIAZIDE 25 MG TABLET (FP) PO SCH (10:54)
[2017-05-26] MEDS: PANTOPRAZOLE 40 MG TABLET (FP) PO SCH (10:54)
[2017-05-26] MEDS: methylPREDNISolone NA SUCC 40 MG/1 ML VIAL IVPB SCH ×2 (10:54→21:28)
--- NOTE | 2017-05-26 13:43 | PN ---
Physical Exam: SUBJECTIVE: Patient seen and examined at bedside. No acute events overnight. Pt feels much better and symptoms have resolved. Denies CP, SOB, abd pain, fever. OBJECTIVE: Vital Signs Period Temp Pulse Resp BP Sys/Echevarria Pulse Ox Last 24 Hr 98.0 F-98.8 F 85-99 18-22 130-154/77-92 98-100 GENERAL: The patient is awake, alert, and fully oriented, in no acute distress. HEAD: Normal with no signs of trauma. EYES: sclera anicteric, conjunctiva clear. No ptosis. ENT: nares patent, oropharynx clear without exudates, moist mucous membranes. NECK: Trachea midline, full range of motion, supple. LUNGS: Breath sounds equal, clear to auscultation bilaterally, mild late expiratory wheezes, no crackles, no accessory muscle use. HEART: Regular rate and rhythm, S1, S2 without murmur, rub or gallop. ABDOMEN: Soft, nontender, nondistended, normoactive bowel sounds, no guarding, no rebound, no hepatosplenomegaly, no masses. EXTREMITIES: 2+ pulses, warm, well-perfused, no edema. NEUROLOGICAL: Normal speech, gait not observed. PSYCH: Normal mood, normal affect. SKIN: Warm, dry, normal turgor, no rashes or lesions noted Laboratory Results - last 24 hr 05/25/17 05/25/17 05/25/17 13:45 13:45 13:45 WBC RBC Hgb Hct MCV MCH MCHC RDW Plt Count MPV Sodium 143 Potassium 4.5 Chloride 105 Carbon Dioxide 31 Anion Gap 7 L BUN 24 H Creatinine 1.1 H Creat Clearance w eGFR 51.02 POC Glucometer Random Glucose 161 H D Hemoglobin A1c % Lactic Acid 2.4 H* Calcium 8.8 Phosphorus 2.4 L D Magnesium Total Bilirubin 0.3 D AST 13 L ALT 18 Alkaline Phosphatase 73 Troponin I < 0.02 Total Protein 6.6 Albumin 2.7 L 05/26/17 05/26/17 05/26/17 06:15 06:15 06:15 WBC 18.1 H RBC 4.40 Hgb 9.8 L D Hct 31.6 L MCV 71.7 L MCH 22.2 L MCHC 30.9 L RDW 19.1 H Plt Count 196 MPV 9.3 Sodium 142 Potassium 4.3 Chloride 104 Carbon Dioxide 29 Anion Gap 9 BUN 22 H Creatinine 1.0 Creat Clearance w eGFR POC Glucometer Random Glucose 93 D Hemoglobin A1c % 6.0 D Lactic Acid Calcium 9.2 Phosphorus 2.9 D Magnesium 2.0 Total Bilirubin AST ALT Alkaline Phosphatase Troponin I Total Protein Albumin 05/26/17 05/26/17 05/26/17 06:15 06:49 11:27 WBC RBC Hgb Hct MCV MCH MCHC RDW Plt Count MPV Sodium Potassium Chloride Carbon Dioxide Anion Gap BUN Creatinine Creat Clearance w eGFR POC Glucometer 105 203 Random Glucose Hemoglobin A1c % Lactic Acid 2.0 Calcium Phosphorus Magnesium Total Bilirubin AST ALT Alkaline Phosphatase Troponin I Total Protein Albumin Active Medications Generic Name Dose Route Start Last Admin Trade Name Freq PRN Reason Stop Dose Admin Albuterol/Ipratropium 1 amp 05/25/17 06:00 05/26/17 11:56 Duoneb - NEB 1 amp QIDR ZACHARY Administration Ferrous Sulfate 325 mg 05/25/17 10:00 05/26/17 10:54 Feosol - PO 325 mg DAILY ZACHARY Administration Heparin Sodium (Porcine) 5,000 unit 05/25/17 06:00 05/26/17 06:12 Heparin - SQ 5,000 unit TID ZACHARY Administration Hydrochlorothiazide 25 mg 05/25/17 10:00 05/26/17 10:54 Hctz - PO 25 mg DAILY ZACHARY Administration Methylprednisolone Sodium Succinate 40 mg 05/25/17 10:00 05/26/17 10:54 Solu-Medrol - IVPB 40 mg BID ZACHARY Administration Pantoprazole Sodium 40 mg 05/25/17 13:30 05/26/17 10:54 Protonix - PO 40 mg DAILY ZACHARY Administration Fluticasone/Salmeterol 1 puff 05/25/17 01:15 05/26/17 10:53 Advair 100mcg/50mcg - IH 1 puff BID ZACHARY Administration ASSESSMENT/PLAN: PT is a 57 y/o F w/ PMH former smoker, COPD on home O2 2L with multiple prior COPD exacerbations who presented to ER w/ chest pain and SOB and was admitted to Med/Surg for Severe Sepsis and COPD exacerbation ? 2/2 CAP. #Sepsis -Resolved. Pt now afebrile without tachycardia -LA resolved 2.4 -> 2.0 -pending cultures #COPD Exacerbation, possibly 2/2 CAP -pt w/ known COPD and multiple exacerbations -Pt feels well at this time. afebrile with no cough -Lactic acidosis, rising WBCs, micro pending -CT shows bronchiectasis & bullous disease -continue O2, ICS, nebs, medrol, chest PT, incentive spirometry -recommend CRP -consider starting Azithromycin & Daliresp out pt #Atypical CP -resolved -unlikely cardiac, Tn neg #Anemia & HTN mgt per primary team Collin Schuster MD PGY-1, Pulmonary service Visit type - Emergency Visit Emergency Visit: No - New Patient This patient is new to me today: Yes Date on this admission: 05/26/17 - Critical Care Critical Care patient: No - Discharge Referral Referred to [facility] No
--- NOTE | 2017-05-26 13:56 | PN ---
Teaching Attending Note Name of Resident: Chris Lawton ATTENDING PHYSICIAN STATEMENT I saw and evaluated the patient. I reviewed the resident's note and discussed the case with the resident. I agree with the resident's findings and plan as documented. SUBJECTIVE:had dyspnea on exertion to restroom however reports she took off supplemental oxygen when she exerted herself. denies CP, cough, fever, chills, N /V/C/D OBJECTIVE: Last Vital Signs Temp Pulse Resp BP Pulse Ox 98.1 F 96 H 22 154/91 98 05/26/17 10:00 05/26/17 12:02 05/26/17 10:00 05/26/17 10:00 05/26/17 12:02 General NAD CV S1 S2 tachy Lungs diffuse rhonchi. crackles R base. poor inspiratory effort Abdomen soft NT/ND extremities no pedal edema ASSESSMENT AND PLAN: 57yo F wtih PMH COPD on 2L NC at home, HTN and previous smoker (quit 2 years ago ) presented to the Er with SOB 1. Acute COPD exacerbation- clinically improved. saturating 98% on 2L NC. worsening leukocytosis likely steroid effect. on levaquin day 2. will complete short 5 day course.continue current steroid dosing of medrol 40mg BID. encouraged to leave oxygen on during exertion. will obtain pre & post when more optimized. incentive spirometer. encouraged to use inhalers as indicated. further management per pulm. cont nebs prn. supplemental oxygen 2. Lactic acidosis- resolved 3. Glucosuria-A1c 6. sugars been controlled. will cont to monitor glucose on bmp 4. HTN- controlled. cont home management 5. DVT ppx- hep sq
--- NOTE | 2017-05-26 14:32 | PN ---
Teaching Attending Note Name of Resident: Collin Schuster ATTENDING PHYSICIAN STATEMENT I saw and evaluated the patient. I reviewed the resident's note and discussed the case with the resident. I agree with the resident's findings and plan as documented. A/E COPD, BRONCHIECTASIS WITH BULLOUS DISEASE ELEVATED WBC AND LACTIC ACID/NO FEVER/MICRO PENDING AGREE WITH ICS/LABA/TAMIR/ANTICHOLINERGIC/IV STEROIDS/O2/CHEST PT/INCENTIVE NIKKI WOULD START COURSE ANTIBIOTICS CHECK CRP CONSIDER DAILY PROPHYLACTIC ZITHROMAX AND PULMONARY REHAB OUTPATIENT. Lamonte WARNER MD
--- NOTE | 2017-05-26 14:44 | PN ---
Physical Exam: SUBJECTIVE: Patient seen and examined at bedside. Patient states that her chest tightness is better today, but expresses frustration with the fact that she continues to be short of breath off of her oxygen. Explained to the patient that she may require constant home oxygen going forward. Afebrile overnight. Her pleuritic chest pain has resolved. OBJECTIVE: Vital Signs Period Temp Pulse Resp BP Sys/Echevarria Pulse Ox Last 24 Hr 98.0 F-98.8 F 85-105 18-22 130-154/76-92 98-100 GENERAL: The patient is awake, alert, and fully oriented, in no acute distress. HEAD: Normal with no signs of trauma. EYES: extraocular movements intact, sclera anicteric, conjunctiva clear. No ptosis. NECK: Trachea midline, full range of motion, supple. LUNGS: Breath sounds equal, inspiratory wheezes and crackles at the bases, no accessory muscle use. HEART: Regular rate and rhythm, S1, S2 without murmur, rub or gallop. ABDOMEN: Soft, nontender, nondistended, normoactive bowel sounds, no guarding, no rebound. EXTREMITIES: 2+ pulses, warm, well-perfused, no edema. NEUROLOGICAL: Cranial nerves II through X grossly intact. Normal speech, gait not observed. PSYCH: Normal mood, normal affect. SKIN: Warm, dry, normal turgor, no rashes or lesions noted Laboratory Results - last 24 hr 05/25/17 05/26/17 05/26/17 13:45 06:15 06:15 WBC 18.1 H RBC 4.40 Hgb 9.8 L D Hct 31.6 L MCV 71.7 L MCH 22.2 L MCHC 30.9 L RDW 19.1 H Plt Count 196 MPV 9.3 Sodium 142 Potassium 4.3 Chloride 104 Carbon Dioxide 29 Anion Gap 9 BUN 22 H Creatinine 1.0 POC Glucometer Random Glucose 93 D Hemoglobin A1c % Lactic Acid 2.4 H* Calcium 9.2 Phosphorus 2.9 D Magnesium 2.0 05/26/17 05/26/17 05/26/17 06:15 06:15 06:49 WBC RBC Hgb Hct MCV MCH MCHC RDW Plt Count MPV Sodium Potassium Chloride Carbon Dioxide Anion Gap BUN Creatinine POC Glucometer 105 Random Glucose Hemoglobin A1c % 6.0 D Lactic Acid 2.0 Calcium Phosphorus Magnesium 05/26/17 11:27 WBC RBC Hgb Hct MCV MCH MCHC RDW Plt Count MPV Sodium Potassium Chloride Carbon Dioxide Anion Gap BUN Creatinine POC Glucometer 203 Random Glucose Hemoglobin A1c % Lactic Acid Calcium Phosphorus Magnesium Active Medications Generic Name Dose Route Start Last Admin Trade Name Andrea PRN Reason Stop Dose Admin Albuterol/Ipratropium 1 amp 05/25/17 06:00 05/26/17 11:56 Duoneb - NEB 1 amp QIDR ZACHARY Administration Ferrous Sulfate 325 mg 05/25/17 10:00 05/26/17 10:54 Feosol - PO 325 mg DAILY ZACHARY Administration Heparin Sodium (Porcine) 5,000 unit 05/25/17 06:00 05/26/17 14:14 Heparin - SQ 5,000 unit TID ZACHARY Administration Hydrochlorothiazide 25 mg 05/25/17 10:00 05/26/17 10:54 Hctz - PO 25 mg DAILY ZACHARY Administration Methylprednisolone Sodium Succinate 40 mg 05/25/17 10:00 05/26/17 10:54 Solu-Medrol - IVPB 40 mg BID ZACHARY Administration Pantoprazole Sodium 40 mg 05/25/17 13:30 05/26/17 10:54 Protonix - PO 40 mg DAILY ZACHARY Administration Fluticasone/Salmeterol 1 puff 05/25/17 01:15 05/26/17 10:53 Advair 100mcg/50mcg - IH 1 puff BID ZACHARY Administration ASSESSMENT/PLAN: Pt is a 57yo F w/ PMHx of COPD on home O2 2L, former smoker, multiple prior COPD exacerbations who presents to ER w/ chest tightness and SOB admitted for COPD Exacerbation and Severe Sepsis # Severe Sepsis - secondary to possible CAP vs bronchitis - Continue w/ Levaquin 750mg IVPB daily - Pt allergic to Bactrim + Sulfa -Blood cx no growth to date -Urine cx contaminated -Lactic acid 2 today; d/cd fluids -Urinary Antigens negative -Influenza Swab negative # COPD Exacerbation - possibly secondary to CAP vs bronchitis - Solumedrol 40mg BID IVPB - Duonebs - Continue Advair - Pulmonary agrees with current treatment - Continue O2 at 2L - pt uses at home # Atypical Chest Pain-resolved - Likely due to COPD Exac - Troponins negative x1, unlikely cardiac in nature # Microcytic Anemia - likely due to RUBY - Fe Panel previously showed low Fe, low Fesat, low-normal ferritin - Continue Fe supplements - Needs outpatient Colonoscopy # Hx of HTN- controlled - Continue HCTZ - Hold beta mariaelena (Metoprolol 50mg BID) until exacerbation resolves - Monitor BP closely # FEN - Fluids: none indicated at this time - Electrolytes: No abnormalities - Nutrition: Regular diet # Prophylaxis - DVT: Heparin SQ TID - GI: protonix 40 mg PO # Dispo - Admitted for treatment of COPD exacerbation Problem List - Problems (1) Acute bronchitis Code(s): J20.9 - ACUTE BRONCHITIS, UNSPECIFIED Qualifiers: Bronchitis organism: unspecified organism Qualified Code(s): J20.9 - Acute bronchitis, unspecified (2) COPD exacerbation Code(s): J44.1 - CHRONIC OBSTRUCTIVE PULMONARY DISEASE W (ACUTE) EXACERBATION (3) Lactic acidosis Code(s): E87.2 - ACIDOSIS (4) Shortness of breath Code(s): R06.02 - SHORTNESS OF BREATH Visit type - Emergency Visit Emergency Visit: Yes ED Registration Date: 05/24/17 Care time: The patient presented to the Emergency Department on the above date and was hospitalized for further evaluation of their emergent condition. - New Patient This patient is new to me today: No - Critical Care Critical Care patient: No
[2017-05-27] MEDS: ALBUTEROL SO4 2.5/IPRATROPIUM 0.5 INH SOL 3 ML VIAL.NEB. NEB SCH ×3 (00:03→12:13)
[2017-05-27] MEDS ORDERED: ACETAMINOPHEN 325 MG TABLET (FP) PO ONE (05:19)
[2017-05-27] MEDS: FLUTICASONE/SALMETEROL 100 MCG/50 MCG DISKUS IH SCH ×3 (05:40→21:53)
[2017-05-27] MEDS: HEPARIN NA (PORCINE) 5,000 UNITS/ML 1ML VIAL SQ SCH ×3 (05:57→21:54)
[2017-05-27 08:08] LABS: MCH 22.3 pg (25.7-33.7); MCHC 31.3 g/dl (32.0-36.0); MEAN CELL VOLUME 71.5 fl (80-96); MEAN PLT VOLUME 8.7 fl (7.5-11.1); PLATELET COUNT 185 K/MM3 (134-434); RDW 18.6 % (11.6-15.6); WHITE BLOOD COUNT 17.3 K/mm3 (4.0-10.0)
[2017-05-27 08:46] LABS: ANION GAP 9 (8-16); CALCIUM 8.9 mg/dL (8.5-10.1); CO2 31 mmol/L (21-32); CREATININE 1.1 mg/dL (0.55-1.02); GLUCOSE,RANDOM 129 mg/dL (74-106)
[2017-05-27] MEDS ORDERED: PT OWN MED DRAWER 7, Y5N ONE ×3 (10:25→22:03)
[2017-05-27] MEDS: PANTOPRAZOLE 40 MG TABLET (FP) PO SCH (10:28)
[2017-05-27] MEDS: FERROUS SO4 325 MG TABLET (FP) PO SCH (10:28)
[2017-05-27] MEDS: HYDROCHLOROTHIAZIDE 25 MG TABLET (FP) PO SCH (10:28)
[2017-05-27] MEDS: LEVOFLOXACIN 750 MG IVPB 150 ML IVPB SCH (10:28)
[2017-05-27] MEDS: methylPREDNISolone NA SUCC 40 MG/1 ML VIAL IVPB SCH (10:29)
--- NOTE | 2017-05-27 10:30 | PN ---
Progress Note (short form) - Note Progress Note: PULMONARY States breathing is better today but not at baseline. +nonproductive cough without wheezing. No chest pain. Last Vital Signs Temp Pulse Resp BP Pulse Ox 98.3 F 102 H 24 138/70 98 05/27/17 09:13 05/27/17 09:13 05/27/17 09:13 05/27/17 09:13 05/26/17 21:00 Gen: NAD at rest Heart: RRR Lung: distant breath sounds, no wheezes appreciated Abd: soft, nontender Ext: no edema CBC, BMP 05/27/17 07:00 05/27/17 07:00 Active Medications Albuterol/Ipratropium (Duoneb -) 1 amp NEB QIDR [facility] Last Admin: 05/27/17 06:24 Dose: 1 amp Ferrous Sulfate (Feosol -) 325 mg PO DAILY [facility] Last Admin: 05/26/17 10:54 Dose: 325 mg Heparin Sodium (Porcine) (Heparin -) 5,000 unit SQ TID [facility] Last Admin: 05/27/17 05:57 Dose: Not Given Hydrochlorothiazide (Hctz -) 25 mg PO DAILY [facility] Last Admin: 05/26/17 10:54 Dose: 25 mg Levofloxacin (Levaquin 750 Mg Premixed Ivpb -) 150 mls @ 100 mls/hr IVPB DAILY [facility] Methylprednisolone Sodium Succinate (Solu-Medrol -) 40 mg IVPB BID [facility] Last Admin: 05/26/17 21:28 Dose: 40 mg Pantoprazole Sodium (Protonix -) 40 mg PO DAILY [facility] Last Admin: 05/26/17 10:54 Dose: 40 mg Fluticasone/Salmeterol (Advair 100mcg/50mcg -) 1 puff IH BID [facility] Last Admin: 05/27/17 05:40 Dose: Not Given A/P Acute COPD Exacerbation Bronchiectasis Emphysema Chronic Hypoxic Respiratory Failure HTN - continue medrol - can change to PO prednisone 40mg daily in AM if continues to improve - inhaled bronchodilators standing and PRN - continue empiric antibiotics - O2 to keep SpO2 >90% - upon discharge, enforce that Incruse and Advair are daily maintenance inhalers and should be used daily - DVT prophylaxis Problem List - Problems (1) COPD exacerbation Code(s): J44.1 - CHRONIC OBSTRUCTIVE PULMONARY DISEASE W (ACUTE) EXACERBATION (2) Chronic respiratory failure with hypoxia Code(s): J96.11 - CHRONIC RESPIRATORY FAILURE WITH HYPOXIA (3) Bronchiectasis Code(s): J47.9 - BRONCHIECTASIS, UNCOMPLICATED (4) COPD (chronic obstructive pulmonary disease) with acute bronchitis Code(s): J44.0 - CHRONIC OBSTRUCTIVE PULMON DISEASE W ACUTE LOWER RESP INFCT (5) Emphysema lung Code(s): J43.9 - EMPHYSEMA, UNSPECIFIED (6) Lactic acidosis Code(s): E87.2 - ACIDOSIS
--- NOTE | 2017-05-27 14:36 | PN ---
Teaching Attending Note Name of Resident: Chris Lawton ATTENDING PHYSICIAN STATEMENT I saw and evaluated the patient. I reviewed the resident's note and discussed the case with the resident. I agree with the resident's findings and plan as documented. SUBJECTIVE:clinically improved. slight dyspnea on exertion, cough resolved. denie CP,fever, chills, N/V/C/D OBJECTIVE: Last Vital Signs Temp Pulse Resp BP Pulse Ox 98.4 F 107 H 21 140/83 99 05/27/17 14:18 05/27/17 14:18 05/27/17 14:18 05/27/17 14:18 05/27/17 12:12 General NAD Lungs scattered wheezing RUL, no crackles or rales ASSESSMENT AND PLAN: 57yo F wtih PMH COPD on 2L NC at home, HTN and previous smoker (quit 2 years ago ) presented to the Er with SOB 1. Acute COPD exacerbation- clinically improved. saturating 98% on 2L NC. worsening leukocytosis likely steroid effect. on levaquin day 3. will complete short 5 day course. will decrease medrol to 40mg daily. switch nebs to prn only. check pre & post. PT eval. encourage to use inhalers daily and not when needed. pulmonary on board. supplemental oxygen 2. Lactic acidosis- resolved 3. Glucosuria-A1c 6. sugars been controlled. will cont to monitor glucose on bmp 4. HTN- controlled. cont home management 5. DVT ppx- hep sq
--- NOTE | 2017-05-27 15:57 | PN ---
Physical Exam: SUBJECTIVE: Patient seen and examined at bedside. Patient states that she feels better today. The tightness in her chest has improved, but she continues to get short of breath when off of her oxygen. OBJECTIVE: Vital Signs Period Temp Pulse Resp BP Sys/Echevarria Pulse Ox Last 24 Hr 97.8 F-98.7 F 92-107 20-24 138-160/70-103 92-99 GENERAL: The patient is awake, alert, and fully oriented, in no acute distress. HEAD: Normal with no signs of trauma. EYES: extraocular movements intact, sclera anicteric, conjunctiva clear. No ptosis. NECK: Trachea midline, full range of motion, supple. LUNGS: Breath sounds equal, scant inspiratory wheezes, no accessory muscle use. HEART: Regular rate and rhythm, S1, S2 without murmur, rub or gallop. ABDOMEN: Soft, nontender, nondistended, normoactive bowel sounds, no guarding, no rebound, no hepatosplenomegaly, no masses. EXTREMITIES: 2+ pulses, warm, well-perfused, no edema. NEUROLOGICAL: Cranial nerves II through X grossly intact. Normal speech, gait not observed. PSYCH: Normal mood, normal affect. SKIN: Warm, dry, normal turgor, no rashes or lesions noted Laboratory Results - last 24 hr 05/27/17 05/27/17 07:00 07:00 WBC 17.3 H RBC 4.48 Hgb 10.0 L Hct 32.0 L MCV 71.5 L MCH 22.3 L MCHC 31.3 L RDW 18.6 H Plt Count 185 MPV 8.7 Sodium 141 Potassium 4.1 Chloride 101 Carbon Dioxide 31 Anion Gap 9 BUN 29 H D Creatinine 1.1 H Random Glucose 129 H D Calcium 8.9 Active Medications Generic Name Dose Route Start Last Admin Trade Name Freq PRN Reason Stop Dose Admin Albuterol/Ipratropium 1 amp 05/27/17 12:59 Duoneb - NEB Q4H PRN SHORTNESS OF BREATH Ferrous Sulfate 325 mg 05/25/17 10:00 05/27/17 10:28 Feosol - PO 325 mg DAILY ZACHARY Administration Heparin Sodium (Porcine) 5,000 unit 05/25/17 06:00 05/27/17 13:53 Heparin - SQ 5,000 unit TID ZACHARY Administration Hydrochlorothiazide 25 mg 05/25/17 10:00 05/27/17 10:28 Hctz - PO 25 mg DAILY ZACHARY Administration Levofloxacin 150 mls @ 100 mls/hr 05/27/17 10:00 05/27/17 10:28 Levaquin 750 Mg Premixed Ivpb - IVPB 100 mls/hr DAILY ZACHARY Administration Methylprednisolone Sodium Succinate 40 mg 05/25/17 10:00 05/27/17 10:29 Solu-Medrol - IVPB 40 mg BID ZACHARY Administration Pantoprazole Sodium 40 mg 05/25/17 13:30 05/27/17 10:28 Protonix - PO 40 mg DAILY ZACHARY Administration Fluticasone/Salmeterol 1 puff 05/25/17 01:15 05/27/17 10:28 Advair 100mcg/50mcg - IH 1 puff BID ZACHARY Administration ASSESSMENT/PLAN: Pt is a 57yo F w/ PMHx of COPD on home O2 2L, former smoker, multiple prior COPD exacerbations who presents to ER w/ chest tightness and SOB admitted for COPD Exacerbation and Severe Sepsis # Severe Sepsis - secondary to possible CAP vs bronchitis - Continue w/ Levaquin 750mg IVPB daily - Pt allergic to Bactrim + Sulfa -Blood cx no growth to date -Urinary Antigens negative -Influenza Swab negative # COPD Exacerbation - possibly secondary to CAP vs bronchitis - Solumedrol 40mg BID IVPB; will hold PM dose and start to taper - Duonebs changed to PRN - Continue Advair - Continue O2 at 2L - pt uses at home -will conduct pre and post; patient's oxygen requirements may have changed # Atypical Chest Pain - Likely due to COPD Exacerbation - Troponins negative x1, unlikely cardiac in nature # Microcytic Anemia - likely due to RUBY - Fe Panel previously showed low Fe, low Fesat, low-normal ferritin - Continue Fe supplements - Needs outpatient Colonoscopy # Hx of HTN- controlled - Continue HCTZ - Hold beta mariaelena (Metoprolol 50mg BID) until exacerbation resolves - Monitor BP closely # FEN - Fluids: none indicated at this time - Electrolytes: No abnormalities - Nutrition: Regular diet # Prophylaxis - DVT: Heparin SQ TID - GI: protonix 40 mg PO -Physical therapy # Dispo - Admitted for treatment of COPD exacerbation Problem List - Problems (1) Acute bronchitis Code(s): J20.9 - ACUTE BRONCHITIS, UNSPECIFIED Qualifiers: Bronchitis organism: unspecified organism Qualified Code(s): J20.9 - Acute bronchitis, unspecified (2) COPD exacerbation Code(s): J44.1 - CHRONIC OBSTRUCTIVE PULMONARY DISEASE W (ACUTE) EXACERBATION (3) Lactic acidosis Code(s): E87.2 - ACIDOSIS (4) Shortness of breath Code(s): R06.02 - SHORTNESS OF BREATH Visit type - Emergency Visit Emergency Visit: Yes ED Registration Date: 05/24/17 Care time: The patient presented to the Emergency Department on the above date and was hospitalized for further evaluation of their emergent condition. - New Patient This patient is new to me today: No - Critical Care Critical Care patient: No
[2017-05-28] MEDS: HEPARIN NA (PORCINE) 5,000 UNITS/ML 1ML VIAL SQ SCH ×3 (06:17→22:30)
[2017-05-28 07:54] LABS: ANION GAP 6 (8-16); CALCIUM 8.7 mg/dL (8.5-10.1); CO2 34 mmol/L (21-32); GLUCOSE,RANDOM 103 mg/dL (74-106)
[2017-05-28] MEDS ORDERED: PT OWN MED DRAWER 7, Y5N ONE ×2 (10:29→21:40)
[2017-05-28] MEDS: ALBUTEROL SO4 2.5/IPRATROPIUM 0.5 INH SOL 3 ML VIAL.NEB. NEB PRN ×2 (10:35→22:50)
[2017-05-28] MEDS: methylPREDNISolone NA SUCC 40 MG/1 ML VIAL IVPB SCH (10:52)
[2017-05-28] MEDS: FERROUS SO4 325 MG TABLET (FP) PO SCH (10:52)
[2017-05-28] MEDS: PANTOPRAZOLE 40 MG TABLET (FP) PO SCH (10:52)
[2017-05-28] MEDS: LEVOFLOXACIN 750 MG IVPB 150 ML IVPB SCH (10:53)
[2017-05-28] MEDS: HYDROCHLOROTHIAZIDE 25 MG TABLET (FP) PO SCH (10:53)
[2017-05-28] MEDS: FLUTICASONE/SALMETEROL 100 MCG/50 MCG DISKUS IH SCH ×2 (10:53→22:31)
--- NOTE | 2017-05-28 11:16 | PN ---
Physical Exam: SUBJECTIVE: Patient seen and examined at bedside. No acute events overnight. Pt states she feels at her baseline. Still has some mild SOB when ambulating. Denies headache, cp, abd pain, fever. OBJECTIVE: Vital Signs Period Temp Pulse Resp BP Sys/Echevarria Pulse Ox Last 24 Hr 98.1 F-98.4 F 85-124 20-21 125-147/55-96 95-99 GENERAL: The patient is awake, alert, and fully oriented, in no acute distress. HEAD: Normal with no signs of trauma. EYES:sclera anicteric, conjunctiva clear. No ptosis. ENT: oropharynx clear without exudates, moist mucous membranes. NECK: Trachea midline, full range of motion, supple. LUNGS: Breath sounds equal, clear to auscultation bilaterally, no wheezes, no crackles, no accessory muscle use. HEART: Regular rate and rhythm, S1, S2 without murmur, rub or gallop. ABDOMEN: Soft, nontender, distended with diastasis recti, normoactive bowel sounds, no guarding, no rebound, no hepatosplenomegaly, no masses. EXTREMITIES: 2+ pulses, warm, well-perfused, no edema. NEUROLOGICAL: Normal speech, gait not observed. PSYCH: Normal mood, normal affect. SKIN: Warm, dry, normal turgor, no rashes or lesions noted Laboratory Results - last 24 hr 05/28/17 06:15 Sodium 142 Potassium 4.0 Chloride 102 Carbon Dioxide 34 H Anion Gap 6 L BUN 33 H Creatinine 1.0 Random Glucose 103 D Calcium 8.7 Active Medications Generic Name Dose Route Start Last Admin Trade Name Andrea PRN Reason Stop Dose Admin Albuterol/Ipratropium 1 amp 05/27/17 12:59 Duoneb - NEB Q4H PRN SHORTNESS OF BREATH Ferrous Sulfate 325 mg 05/25/17 10:00 05/28/17 10:52 Feosol - PO 325 mg DAILY [facility]ACHARY Administration Heparin Sodium (Porcine) 5,000 unit 05/25/17 06:00 05/28/17 06:17 Heparin - SQ 5,000 unit TID ZACHARY Administration Hydrochlorothiazide 25 mg 05/25/17 10:00 05/28/17 10:53 Hctz - PO 25 mg DAILY [facility]ACHARY Administration Levofloxacin 150 mls @ 100 mls/hr 05/27/17 10:00 05/28/17 10:53 Levaquin 750 Mg Premixed Ivpb - IVPB 100 mls/hr DAILY [facility]ACHARY Administration Methylprednisolone Sodium Succinate 40 mg 05/25/17 10:00 05/28/17 10:52 Solu-Medrol - IVPB 40 mg BID ZACHARY Administration Pantoprazole Sodium 40 mg 05/25/17 13:30 05/28/17 10:52 Protonix - PO 40 mg DAILY ZACHARY Administration Fluticasone/Salmeterol 1 puff 05/25/17 01:15 05/28/17 10:53 Advair 100mcg/50mcg - IH 1 puff BID ZACHARY Administration ASSESSMENT/PLAN: PT is a 57 y/o F w/ PMH former smoker, COPD on home O2 2L with multiple prior COPD exacerbations who presented to ER w/ chest pain and SOB and was admitted to Med/Surg for Severe Sepsis and COPD exacerbation ? 2/2 CAP. #COPD Exacerbation, possibly 2/2 CAP -pt w/ known COPD and multiple exacerbations -Pt feels well at this time. afebrile with no cough -leukocytosis -micro negative -CT shows bronchiectasis & bullous disease -continue O2, ICS, nebs, medrol, chest PT, incentive spirometry -resume Incruse, Advair daily as out pt -consider starting Azithromycin & Daliresp out pt Collin Schuster MD PGY-1, Pulmonary service Visit type - Emergency Visit Emergency Visit: No - New Patient This patient is new to me today: Yes Date on this admission: 05/31/17 - Critical Care Critical Care patient: No - Discharge Referral Referred to [facility] Med P.C.: No
--- NOTE | 2017-05-28 12:58 | PN ---
Teaching Attending Note Name of Resident: Chris Lawton ATTENDING PHYSICIAN STATEMENT I saw and evaluated the patient. I reviewed the resident's note and discussed the case with the resident. I agree with the resident's findings and plan as documented. SUBJECTIVE:continues to have dyspnea on exertion. cough resolved. pleuritic CP. denies fever, chills, N/V/C/D OBJECTIVE: Last Vital Signs Temp Pulse Resp BP Pulse Ox 98.4 F 85 20 140/91 95 05/28/17 06:00 05/28/17 06:00 05/28/17 06:00 05/28/17 06:00 05/27/17 20:43 General NAD Lungs scattered wheezing RUL, no crackles or rales ASSESSMENT AND PLAN: 57yo F wtih PMH COPD on 2L NC at home, HTN and previous smoker (quit 2 years ago ) presented to the Er with SOB 1. Acute COPD exacerbation- clinically improved. saturating 98% on RA. pt states she continues to have dyspnea on exertion, worse than baseline. does not feel comfortable converting to oral steroids today. in light of having wheezing on exam. will cont medrol 40mg daily at this time. with hopes of transitioning to po tomorrow. steroid taper per pulmonary. levaquin day 4. will complete 5 day course tomorrow. pre and post showing requiring O2 only on exertion. will reuqire 2L NC to mtaintin spO2 >90% as she desats to 87%. educated on need for inhaler and medication compliance. went into detail to explain difference between maintenance and rescue inhaler. how COPD is progressive disease and medications will only slow down progression. will need pulmonary follow up. 2. Lactic acidosis- resolved 3. Glucosuria-A1c 6. sugars been controlled. will cont to monitor glucose on bmp 4. HTN- controlled. cont home management 5. DVT ppx- hep sq 6. d/c planning for the morning if able to convert to po
--- NOTE | 2017-05-28 13:05 | PN ---
Teaching Attending Note Name of Resident: Collni Schuster ATTENDING PHYSICIAN STATEMENT I saw and evaluated the patient. I reviewed the resident's note and discussed the case with the resident. I agree with the resident's findings and plan as documented. pulmonary alert,feeling better.sob improving A/P Acute COPD Exacerbation improving Bronchiectasis Emphysema Chronic Hypoxic Respiratory Failure HTN - prednisone 40mg daily - inhaled bronchodilators standing and PRN - continue empiric antibiotics - O2 to keep SpO2 >90% - upon discharge, enforce that Incruse and Advair are daily maintenance inhalers and should be used daily - DVT prophylaxis DR SMITH Problem List - Problems (1) COPD exacerbation Code(s): J44.1 - CHRONIC OBSTRUCTIVE PULMONARY DISEASE W (ACUTE) EXACERBATION (2) Chronic respiratory failure with hypoxia Code(s): J96.11 - CHRONIC RESPIRATORY FAILURE WITH HYPOXIA (3) Bronchiectasis Code(s): J47.9 - BRONCHIECTASIS, UNCOMPLICATED (4) COPD (chronic obstructive pulmonary disease) with acute bronchitis Code(s): J44.0 - CHRONIC OBSTRUCTIVE PULMON DISEASE W ACUTE LOWER RESP INFCT (5) Emphysema lung Code(s): J43.9 - EMPHYSEMA, UNSPECIFIED (6) Lactic acidosis Code(s): E87.2 - ACIDOSIS
[2017-05-28] MEDS ORDERED: ACETAMINOPHEN 325 MG TABLET (FP) PO PRN (22:37)
--- NOTE | 2017-05-28 23:02 | PN ---
Physical Exam: SUBJECTIVE: Patient seen and examined OBJECTIVE: Vital Signs Period Temp Pulse Resp BP Sys/Echevarria Pulse Ox Last 24 Hr 97.5 F-98.6 F 85-104 18-21 121-147/60-91 96-96 GENERAL: The patient is awake, alert, and fully oriented, in no acute distress. HEAD: Normal with no signs of trauma. EYES: PERRL, extraocular movements intact, sclera anicteric, conjunctiva clear. No ptosis. ENT: Ears normal, nares patent, oropharynx clear without exudates, moist mucous membranes. NECK: Trachea midline, full range of motion, supple. LUNGS: Breath sounds equal, clear to auscultation bilaterally, no wheezes, no crackles, no accessory muscle use. HEART: Regular rate and rhythm, S1, S2 without murmur, rub or gallop. ABDOMEN: Soft, nontender, nondistended, normoactive bowel sounds, no guarding, no rebound, no hepatosplenomegaly, no masses. EXTREMITIES: 2+ pulses, warm, well-perfused, no edema. NEUROLOGICAL: Cranial nerves II through XII grossly intact. Normal speech, gait not observed. PSYCH: Normal mood, normal affect. SKIN: Warm, dry, normal turgor, no rashes or lesions noted Laboratory Results - last 24 hr 05/28/17 06:15 Sodium 142 Potassium 4.0 Chloride 102 Carbon Dioxide 34 H Anion Gap 6 L BUN 33 H Creatinine 1.0 Random Glucose 103 D Calcium 8.7 Active Medications Generic Name Dose Route Start Last Admin Trade Name Freq PRN Reason Stop Dose Admin Acetaminophen 650 mg 05/28/17 22:37 05/28/17 22:44 Tylenol - PO 650 mg Q6H PRN Administration FEVER OR PAIN Albuterol/Ipratropium 1 amp 05/27/17 12:59 05/28/17 22:50 Duoneb - NEB 1 amp Q4H PRN Administration SHORTNESS OF BREATH Ferrous Sulfate 325 mg 05/25/17 10:00 05/28/17 10:52 Feosol - PO 325 mg DAILY ZACHARY Administration Heparin Sodium (Porcine) 5,000 unit 05/25/17 06:00 05/28/17 22:30 Heparin - SQ Not Given TID ZACHARY Hydrochlorothiazide 25 mg 05/25/17 10:00 05/28/17 10:53 Hctz - PO 25 mg DAILY ZACHARY Administration Levofloxacin 150 mls @ 100 mls/hr 05/27/17 10:00 05/28/17 10:53 Levaquin 750 Mg Premixed Ivpb - IVPB 100 mls/hr DAILY ZACHARY Administration Pantoprazole Sodium 40 mg 05/25/17 13:30 05/28/17 10:52 Protonix - PO 40 mg DAILY ZACHARY Administration Prednisone 40 mg 05/29/17 10:00 Deltasone - PO DAILY ZACHARY Fluticasone/Salmeterol 1 puff 05/25/17 01:15 05/28/17 22:31 Advair 100mcg/50mcg - IH 1 puff BID ZACHARY Administration ASSESSMENT/PLAN: Pt is a 57yo F w/ PMHx of COPD on home O2 2L, former smoker, multiple prior COPD exacerbations who presents to ER w/ chest tightness and SOB admitted for COPD Exacerbation and Severe Sepsis # Severe Sepsis - secondary to possible CAP vs bronchitis - Continue w/ Levaquin 750mg IVPB daily; day 4 -Blood cx no growth to date -Urinary Antigens negative -Influenza Swab negative # COPD Exacerbation - possibly secondary to CAP vs bronchitis - Solumedrol 40mg Daily IVPB - Duonebs changed to PRN - Continue Advair - Continue O2 at 2L - pt uses at home -Patient desaturated while walking during pre and post. required 2l NC -pulmonology: taper by 5mg every other day as outpt # Atypical Chest Pain - Likely due to COPD Exacerbation - Troponins negative x1, unlikely cardiac in nature -tylenol 650 # Microcytic Anemia - likely due to RUBY - Fe Panel previously showed low Fe, low Fesat, low-normal ferritin - Continue Fe supplements - Needs outpatient Colonoscopy # Hx of HTN- controlled - Continue HCTZ - Hold beta mariaelena (Metoprolol 50mg BID) until exacerbation resolves - Monitor BP closely # FEN - Fluids: none indicated at this time - Electrolytes: No abnormalities - Nutrition: Regular diet # Prophylaxis - DVT: Heparin SQ TID -GI: protonix 40 mg PO -Physical therapy # Dispo - Admitted for treatment of COPD exacerbation Problem List - Problems (1) Acute bronchitis Code(s): J20.9 - ACUTE BRONCHITIS, UNSPECIFIED Qualifiers: Bronchitis organism: unspecified organism Qualified Code(s): J20.9 - Acute bronchitis, unspecified (2) COPD exacerbation Code(s): J44.1 - CHRONIC OBSTRUCTIVE PULMONARY DISEASE W (ACUTE) EXACERBATION (3) Lactic acidosis Code(s): E87.2 - ACIDOSIS (4) Shortness of breath Code(s): R06.02 - SHORTNESS OF BREATH Visit type - Emergency Visit Emergency Visit: Yes ED Registration Date: 05/24/17 Care time: The patient presented to the Emergency Department on the above date and was hospitalized for further evaluation of their emergent condition. - New Patient This patient is new to me today: No - Critical Care Critical Care patient: No
[2017-05-29] MEDS: ALBUTEROL SO4 2.5/IPRATROPIUM 0.5 INH SOL 3 ML VIAL.NEB. NEB PRN ×2 (05:09→11:09)
[2017-05-29] MEDS: HEPARIN NA (PORCINE) 5,000 UNITS/ML 1ML VIAL SQ SCH ×2 (06:05→13:52)
[2017-05-29] MEDS ORDERED: PT OWN MED DRAWER 7, Y5N ONE (09:02)
--- NOTE | 2017-05-29 09:25 | PN ---
Teaching Attending Note Name of Resident: Chris Lawton ATTENDING PHYSICIAN STATEMENT I saw and evaluated the patient. I reviewed the resident's note and discussed the case with the resident. I agree with the resident's findings and plan as documented. SUBJECTIVE:c/o intermittent CP, worse on deep inspiration and when coughing. denies SOB, dyspnea on exertion, fever, chills, N/V/C/D OBJECTIVE: Last Vital Signs Temp Pulse Resp BP Pulse Ox 98.0 F 90 20 129/72 99 05/29/17 06:00 05/29/17 06:00 05/29/17 06:00 05/29/17 06:00 05/28/17 21:00 General NAD CV S1 S2 RRR +point tenderness 2nd intercostal space L side Lungs scattered wheezing RUL, no crackles or rales ASSESSMENT AND PLAN: 57yo F wtih PMH COPD on 2L NC at home, HTN and previous smoker (quit 2 years ago ) presented to the Er with SOB 1. Acute COPD exacerbation- clinically improved. saturating 98% on RA. dyspnea improved. counseled on importance of medication compliance and taking medications as instructed. switched to prednisone 40mg po today will decrease by 5mg every other day per pulmonary. completes 5 day course of abx today. encouraged inhaler use and for brother to smoke outside. informed to call pulmonary if dyspnea worsens on exertion. supplemental oxygen on exertion 2L NC 2. CP- pluritic. +point tenderness. EKG no change. informed to use tylenol prn pain and not NSAID as on steroids and increased risk of bleeding 3. HTN- controlled. cont home management 4. DVT ppx- hep sq 5. d/c home
[2017-05-29] MEDS ORDERED: LEVOFLOXACIN 500 MG TABLET (FP) PO ONE (09:30)
[2017-05-29] MEDS: PANTOPRAZOLE 40 MG TABLET (FP) PO SCH (09:32)
[2017-05-29] MEDS: FERROUS SO4 325 MG TABLET (FP) PO SCH (09:32)
[2017-05-29] MEDS: HYDROCHLOROTHIAZIDE 25 MG TABLET (FP) PO SCH (09:32)
[2017-05-29] MEDS: FLUTICASONE/SALMETEROL 100 MCG/50 MCG DISKUS IH SCH (09:32)
[2017-05-29 09:37] LABS: ANION GAP 9 (8-16); CALCIUM 8.9 mg/dL (8.5-10.1); CO2 31 mmol/L (21-32); CREATININE 1.1 mg/dL (0.55-1.02); GLUCOSE,RANDOM 102 mg/dL (74-106)
[2017-05-29] MEDS ORDERED: methylPREDNISolone NA SUCC 40 MG/1 ML VIAL IVPB SCH (10:00)
[2017-05-29] MEDS ORDERED: predniSONE 20 MG TABLET (UD) PO SCH (10:00)
--- NOTE | 2017-05-29 12:30 | PN ---
Progress Note, Physician History of Present Illness: PULMONARY ALERT,COMFORTABLE AT REST ,+ DYSPNEA WITH MIN EXERTION - Current Medication List Current Medications: Active Medications Acetaminophen (Tylenol -) 650 mg PO Q6H PRN PRN Reason: FEVER OR PAIN Last Admin: 05/28/17 22:44 Dose: 650 mg Albuterol/Ipratropium (Duoneb -) 1 amp NEB Q4H PRN PRN Reason: SHORTNESS OF BREATH Last Admin: 05/29/17 11:09 Dose: 1 amp Ferrous Sulfate (Feosol -) 325 mg PO DAILY [facility] Last Admin: 05/29/17 09:32 Dose: 325 mg Heparin Sodium (Porcine) (Heparin -) 5,000 unit SQ TID [facility] Last Admin: 05/29/17 06:05 Dose: 5,000 unit Hydrochlorothiazide (Hctz -) 25 mg PO DAILY [facility] Last Admin: 05/29/17 09:32 Dose: 25 mg Pantoprazole Sodium (Protonix -) 40 mg PO DAILY [facility] Last Admin: 05/29/17 09:32 Dose: 40 mg Prednisone (Deltasone -) 40 mg PO DAILY [facility] Last Admin: 05/29/17 09:32 Dose: 40 mg Fluticasone/Salmeterol (Advair 100mcg/50mcg -) 1 puff IH BID [facility] Last Admin: 05/29/17 09:32 Dose: 1 puff - Objective Vital Signs: Vital Signs Temperature 98.5 F 05/29/17 09:37 Pulse Rate 100 H 05/29/17 11:09 Respiratory Rate 20 05/29/17 09:37 Blood Pressure 155/97 05/29/17 09:37 O2 Sat by Pulse Oximetry (%) 98 05/29/17 11:09 Constitutional: Yes: Well Nourished, Calm Eyes: Yes: WNL HENT: Yes: WNL Neck: Yes: WNL Cardiovascular: Yes: Regular Rate and Rhythm, S1, S2 Respiratory: Yes: Rhonchi (FEW SCATTERED RHONCHI) Gastrointestinal: Yes: Normal Bowel Sounds, Soft Extremities: Yes: WNL Edema: No Labs: CBC, BMP Assessment/Plan A/P Acute COPD Exacerbation improving Bronchiectasis Emphysema Chronic Hypoxic Respiratory Failure HTN - prednisone 40mg daily with taper 5mg every 3 days - inhaled bronchodilators standing and PRN - Compliance wiith O2 - Incruse and Advair daily - DVT prophylaxis DR SMITH Problem List - Problems (1) COPD exacerbation Code(s): J44.1 - CHRONIC OBSTRUCTIVE PULMONARY DISEASE W (ACUTE) EXACERBATION (2) Chronic respiratory failure with hypoxia Code(s): J96.11 - CHRONIC RESPIRATORY FAILURE WITH HYPOXIA (3) Bronchiectasis Code(s): J47.9 - BRONCHIECTASIS, UNCOMPLICATED (4) COPD (chronic obstructive pulmonary disease) with acute bronchitis Code(s): J44.0 - CHRONIC OBSTRUCTIVE PULMON DISEASE W ACUTE LOWER RESP INFCT (5) Emphysema lung Code(s): J43.9 - EMPHYSEMA, UNSPECIFIED (6) Lactic acidosis Code(s): E87.2 - ACIDOSIS
[2017-05-29 15:47] VITALS: BP 152/84; PULSE 87; TEMP 98.2
--- NOTE | 2017-05-30 09:52 | EKG ---
Test Reason : Blood Pressure : / mmHG Vent. Rate : 098 BPM Atrial Rate : 098 BPM P-R Int : 128 ms QRS Dur : 070 ms QT Int : 354 ms P-R-T Axes : 083 052 067 degrees QTc Int : 451 ms Poor data quality NORMAL SINUS RHYTHM RIGHT ATRIAL ENLARGEMENT Confirmed by MD LEELEE, KALLI ([id number]) on 05/30/2017 9:52:18 AM Referred By: Confirmed By:KALLI MCKOY MD
--- NOTE | 2017-05-31 21:53 | DS ---
Physical Exam: LABS Laboratory Last Values WBC 17.3 K/mm3 (4.0-10.0) H 05/27/17 07:00 RBC 4.48 M/mm3 (3.60-5.2) 05/27/17 07:00 Hgb 10.0 GM/dL (10.7-15.3) L 05/27/17 07:00 Hct 32.0 % (32.4-45.2) L 05/27/17 07:00 MCV 71.5 fl (80-96) L 05/27/17 07:00 MCH 22.3 pg (25.7-33.7) L 05/27/17 07:00 MCHC 31.3 g/dl (32.0-36.0) L 05/27/17 07:00 RDW 18.6 % (11.6-15.6) H 05/27/17 07:00 Plt Count 185 K/MM3 (134-434) 05/27/17 07:00 MPV 8.7 fl (7.5-11.1) 05/27/17 07:00 Neutrophils % 82.3 % (42.8-82.8) 05/24/17 21:26 Lymphocytes % 10.2 % (8-40) D 05/24/17 21:26 Monocytes % 6.6 % (3.8-10.2) 05/24/17 21:26 Eosinophils % 0.0 % (0-4.5) D 05/24/17 21:26 Basophils % 0.9 % (0-2.0) 05/24/17 21:26 Sodium 142 mmol/L (136-145) 05/29/17 08:20 Potassium 4.2 mmol/L (3.5-5.1) 05/29/17 08:20 Chloride 102 mmol/L (98-107) 05/29/17 08:20 Carbon Dioxide 31 mmol/L (21-32) 05/29/17 08:20 Anion Gap 9 (8-16) 05/29/17 08:20 BUN 33 mg/dL (7-18) H 05/29/17 08:20 Creatinine 1.1 mg/dL (0.55-1.02) H 05/29/17 08:20 Creat Clearance w eGFR 51.02 (>60) 05/25/17 13:45 POC Glucometer 203 UNITS (()) 05/26/17 11:27 Random Glucose 102 mg/dL (74-106) 05/29/17 08:20 Hemoglobin A1c % 6.0 % (4.8-6.0) D 05/26/17 06:15 Lactic Acid 2.0 mmol/L (0.4-2.0) 05/26/17 06:15 Calcium 8.9 mg/dL (8.5-10.1) 05/29/17 08:20 Phosphorus 2.9 mg/dL (2.5-4.9) D 05/26/17 06:15 Magnesium 2.0 mg/dL (1.8-2.4) 05/26/17 06:15 Total Bilirubin 0.3 mg/dL (0.2-1.0) D 05/25/17 13:45 AST 13 U/L (15-37) L 05/25/17 13:45 ALT 18 U/L (12-78) 05/25/17 13:45 Alkaline Phosphatase 73 U/L (45-117) 05/25/17 13:45 Creatine Kinase 71 IU/L (26-192) 05/24/17 21:26 Troponin I < 0.02 ng/ml (0.00-0.05) 05/25/17 13:45 B-Natriuretic Peptide 550.09 pg/ml (5-125) H 05/24/17 21:26 Total Protein 6.6 g/dl (6.4-8.2) 05/25/17 13:45 Albumin 2.7 g/dl (3.4-5.0) L 05/25/17 13:45 Urine Color Yellow 05/24/17 23:34 Urine Appearance Slcloudy 05/24/17 23:34 Urine pH 5.0 (5.0-8.0) 05/24/17 23:34 Ur Specific Henderson 1.025 (1.005-1.025) 05/24/17 23:34 Urine Protein 2+ (NEGATIVE) H 05/24/17 23:34 Urine Glucose (UA) 1+ (NEGATIVE) H 05/24/17 23:34 Urine Ketones Negative (NEGATIVE) 05/24/17 23:34 Urine Blood Negative (NEGATIVE) 05/24/17 23:34 Urine Nitrite Negative (NEGATIVE) 05/24/17 23:34 Urine Bilirubin Negative (NEGATIVE) 05/24/17 23:34 Urine Urobilinogen Negative mg/dL (0.2-1.0) 05/24/17 23:34 Ur Leukocyte Esterase Trace (NEGATIVE) 05/24/17 23:34 Urine RBC None /hpf (0-3) 05/24/17 23:34 Urine WBC 11 /hpf (3-5) 05/24/17 23:34 Ur Epithelial Cells Rare /hpf (FEW) 05/24/17 23:34 Hyaline Casts 1 /lpf 05/24/17 23:34 Urine Mucus Rare 05/24/17 23:34 HOSPITAL COURSE: Date of Admission:05/24/17 The patient is a 57yo F w/ PMHx of COPD on home O2 2L, former smoker, multiple prior COPD exacerbations who presented to the ER w/ chest pain and SOB. Patient was admitted this past March for sepsis 2/2 pneumonia and COPD exacerbation. She states that this evening, after she returned from a restaurant, she experienced sudden onset sharp midsternal CP, nonradiating, described as a "tightness", worse with deep breathing. The pain was associated SOB on exertion. She denied cough, sputum production, fevers or chills. She denied exposure to food allergens or sick contacts. She Denied orthopnea or swelling. In the ED, she was found to have a WBC count of 15.3, a heart rate of 130 and a lactic acidosis to 3.4. A chest xray showed no active pulmonary disease. The patient was admitted for Severe sepsis secondary to early developing pneumonia vs bronchitis with a superimposed COPD exacerbation. She was treated with supplemental oxygen, levaquin, solumedrol, duonebs and advair. Dr. Blakely from pulmonology was consulted. The patient's clinical status gradually improved and she was discharged home on tylenol for pain, Incruse ellipta, protonix and a steroid taper. She was instructed to take the tylenol for her pleuritic chest pain as well as to taper her steroids in the following fashion: 40mg on 05/30, 35mg on 05/31 and 06/01, 30mg on 06/02 and 06/03, 25mg on 06/04 and 06/05, 20 mg on and 06/07, 15mg on 06/08 and 06/09, 10mg on 06/10 and 06/11 and 5mg on 06/12 and . 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 She was advised to use her inhalers as directed and to avoid second hand smoke as it could worsen her condition. The patient was instructed to use her supplemental oxygen when moving or exerting herself at home. She was advised to return to the hospital if her breathing or chest pain worsens. Date of Discharge: 05/31/17 Minutes to complete discharge: 30 Discharge Summary Reason For Visit: COPD Current Active Problems Acute bronchitis (Acute) Shortness of breath (Acute) Chronic respiratory failure with hypoxia (Chronic) Condition: Improved - Instructions Diet, Activity, Other Instructions: You were admitted for COPD exacerbation. You completed antibiotics while in the hospital. Continue to titrate down steroids as discussed. You were given 40mg in the hospital. Take 40mg tomorrow and then decrease by 5mg every other day prednisone 40mg on 05/30 35mg on 05/31 and 06/01, 30mg 06/02 and 06/03 25mg 06/04 and 06/05, 20 mg 06/06 and 06/07 15mg 06/08 and 06/09 10mg 06/10 and 06/11 5mg 06/12 and 06/13 Take acid suppressing medications while on steroids. Take tylneol as needed for chest discomfort. do not take advil or like products (aleive, motrin, ibuprofen, naproxen, etc) Follow a low salt diet Follow up with your primary care doctor next week Follow up with pulmonary in 2 weeks and prior to completing steroids. Call them if your shortness of breath worsens as you decrease your steroid intake Use your inhalers daily as instructed regardless of how your breathing is. Your rescue inhaler is to be used only as needed Instruct your brother and other people who smoke to not smoke in the house or around you as this will worsen your breathing condition Use supplemental oxygen when exerting yourself. you do not need it at rest but can use it if your feeling short of breath Return to the hospital if your breathing worsens or chest pain worsens. Referrals: Royer Munguia MD [Staff Physician] - Marija Ro MD [Primary Care Provider] - Disposition: HOME - Home Medications Comprehensive Discharge Medication List: Ambulatory Orders Albuterol 0.083% Nebulizer Destiny [Ventolin 0.083% Nebulizer Soln -] 1 amp NEB Q4H PRN #0 amp 09/25/16 Ferrous Sulfate [Feosol] 325 mg PO DAILY #30 cap 03/09/17 Hydroxyzine Pamoate [Vistaril -] 25 mg PO DAILY #30 cap 03/16/17 Salmeterol/Fluticasone [Advair 100Mcg/50Mcg -] 1 puff IH BID #60 inhaler Hydrochlorothiazide 25 mg PO DAILY 05/24/17 Metoprolol Tartrate 50 mg PO BID 05/24/17 Acetaminophen [Tylenol .Regular Strength -] 650 mg PO Q6H PRN #0 tablet Pantoprazole Sodium [Protonix -] 40 mg PO DAILY #30 tab 05/29/17 Prednisone 5 mg PO DAILY #64 tablet 05/29/17 Umeclidinium Thorofare [Incruse Ellipta] 62.5 mcg IH DAILY #1 blst.w.dev 05/29/17 Problem List - Problems (1) Acute bronchitis Code(s): J20.9 - ACUTE BRONCHITIS, UNSPECIFIED Qualifiers: Bronchitis organism: unspecified organism Qualified Code(s): J20.9 - Acute bronchitis, unspecified (2) COPD exacerbation Code(s): J44.1 - CHRONIC OBSTRUCTIVE PULMONARY DISEASE W (ACUTE) EXACERBATION (3) Lactic acidosis Code(s): E87.2 - ACIDOSIS (4) Shortness of breath Code(s): R06.02 - SHORTNESS OF BREATH This patient is new to me today: No Emergency Visit: Yes ED Registration Date: 05/24/17 Care time: The patient presented to the Emergency Department on the above date and was hospitalized for further evaluation of their emergent condition. Critical Care patient: No - Discharge Referral Referred to [facility] No
== END 2017-05-29 16:00 | disposition home or self-care (01) | DRG 720 ==
LOC: JER 19:53 → JERBED 23:08 → J5S 05-25 02:06
PROVIDERS: ADMIT Internal Medicine; ATTEND Internal Medicine
DX: A41.9 Sepsis, unspecified organism (principal); R65.20 Severe sepsis without septic shock; J44.1 Chronic obstructive pulmonary disease with (acute) exacerbation; I10 Essential (primary) hypertension; F41.8 Other specified anxiety disorders; F19.10 Other psychoactive substance abuse, uncomplicated; D64.9 Anemia, unspecified; R07.89 Other chest pain; E87.2 Acidosis; J96.11 Chronic respiratory failure with hypoxia; I27.2 Other secondary pulmonary hypertension; K76.0 Fatty (change of) liver, not elsewhere classified; E72.51 Non-ketotic hyperglycinemia; Z87.891 Personal history of nicotine dependence; Z99.81 Dependence on supplemental oxygen
CPT/HCPCS: 36415; 71010-TC; 80048; 80053; 81003; 81015; 83036; 83605; 83735; 83880; 84100; 84484; 85025; 85027; 87040; 87086; 87254; 87804; 87899; 93005; 93010; 94010; 94640; 94761; 97116-GP; 97161-GP; 99284-25; J1644

== ENCOUNTER 2017-09-14 15:17 | Emergency (ER) | payer OTHER ==
[2017-09-14 16:02] VITALS: TEMP 98.2; BMI 29.6
--- NOTE | 2017-09-14 16:35 | PDOC ---
History of Present Illness - History of Present Illness Initial Comments: 09/14/17 17:16 The patient is a 57 year old female, with a significant past medical history of Asthma/COPD (uses Advair and receives 24 hours of daily 3L O2), Hypertension, who presents to the emergency department with two hours of constant pain to her left flank and left back today. The patient was reportedly eating roast beef when she developed a sudden onset of pain to her left lateral flank. She states she has never experienced this pain before and describes the pain as 10/10 in severity. She denies radiation of pain. She states the pain has been constant since onset for about 2 hours. She reports experiencing chills intermittently since yesterday, but denies recording a fever. LNBM: Yesterday She denies chest pain, increased shortness of breath, headache and dizziness. She denies fever, nausea, vomit, diarrhea and constipation. She denies dysuria, frequency, urgency and hematuria. Allergies: Bactrim Social history: smoking cessation 5 years ago Family history: Mother (ESRD on dialysis), Brother ( from kidney failure) PCP - Dr. Marija Ro <Olivia Mckeon - Last Filed: 09/14/17 17:16> <Eze Chahal - Last Filed: 09/14/17 20:38> - General Chief Complaint: Pain, Acute Stated Complaint: ABD PAIN Time Seen by Provider: 09/14/17 16:02 Past History <Olivia Mckeon - Last Filed: 09/14/17 17:16> - Past Medical History Anemia: No Asthma: Yes Cancer: No Cardiac Disorders: Yes CVA: No COPD: Yes CHF: No DVT: No Dementia: No Diabetes: No Dialysis: No GI Disorders: No Disorders: No HTN: Yes Hypercholesterolemia: No Kidney Stones: No Liver Disease: No Psychiatric Problems: No Seizures: No Thyroid Disease: No Lung CA: No Other medical history: artheritis, takes water pill for swelling in legs - Surgical History Abdominal Surgery: No Appendectomy: No Cardiac Surgery: No Cholecystectomy: No Gastric Stapling: No GI Surgery: No Lung Surgery: No Neurologic Surgery: No Orthopedic Surgery: No - Family Disease History Family Disease History: Other: Father (passed from kidney failure as refused HD) , Mother (kidney failure requiring HD) - Reproductive History PID: No - Immunization History Immunization Up to Date: Yes - Suicide/Smoking/Psychosocial Hx Smoking Status: No Smoking History: Never smoked Years of Tobacco Use: 45 (45 pack yr hx) Have you smoked in the past 12 months: No Number of Cigarettes Smoked Daily: 0 If you are a former smoker, when did you quit?: 2014 Information on smoking cessation initiated: No 'Breaking Loose' booklet given: 04/10/15 Hx Alcohol Use: Yes (occasional) Drug/Substance Use Hx: Yes (crack ,cocaine) Substance Use Type: None Hx Substance Use Treatment: Yes <Eze Chahal - Last Filed: 09/14/17 20:38> - Past Medical History Allergies/Adverse Reactions: Allergies Allergy/AdvReac Type Severity Reaction Status Date / Time black walnut Allergy Severe Hives Verified 09/14/17 16:17 sulfamethoxazole Allergy Severe Swelling Verified 09/14/17 16:17 [From Bactrim] trimethoprim [From Bactrim] Allergy Severe Swelling Verified 09/14/17 16:17 PECAN Allergy Severe Hives Uncoded 09/14/17 16:17 Home Medications: Ambulatory Orders Albuterol 0.083% Nebulizer Destiny [Ventolin 0.083% Nebulizer Soln -] 1 amp NEB Q4H PRN #0 amp 09/25/16 Hydroxyzine Pamoate [Vistaril -] 25 mg PO DAILY #30 cap 03/16/17 Salmeterol/Fluticasone [Advair 100Mcg/50Mcg -] 1 puff IH BID #60 inhaler Hydrochlorothiazide 25 mg PO DAILY 05/24/17 Acetaminophen [Tylenol .Regular Strength -] 650 mg PO Q6H PRN #0 tablet Umeclidinium [place] [Incruse Ellipta] 62.5 mcg IH DAILY #1 blst.w.dev 05/29/17 Acetaminophen W/ Codeine #3 [Tylenol # 3 -] 1 tab PO Q6H #14 tablet MDD 4 Ciprofloxacin [Cipro (Restricted To Id)] 500 mg PO BID #14 tablet 09/14/17 Lidocaine 5% Patch [Lidoderm -] 1 patch TP DAILY #14 patch 09/14/17 Abd/GI Specific PMHX - Complaint Specific PMHX Hepatitis: No Pancreatitis: No <Eze Chahal - Last Filed: 09/14/17 20:38> Review of Systems - Review of Systems Able to Perform ROS?: Yes Comments:: 09/14/17 17:17 CONSTITUTIONAL: No fever, no chills, no fatigue EYES: No visual changes ENT: No ear pain, no sore throat CARDIOVASCULAR: No chest pain, no palpitations RESPIRATORY: No cough, no SOB GI: No abdominal pain, no nausea, no vomiting, no constipation, no diarrhea GENITOURINARY: No dysuria, no frequency, no hematuria MUSKULOSKELETAL: (+) left flank pain and left back pain. No joint pain. SKIN: No rash NEURO: No headache <Olivia Mckeon - Last Filed: 09/14/17 17:16> *Physical Exam - Vital Signs Last Vital Signs Temp Pulse Resp BP Pulse Ox 98.2 F 112 H 22 136/80 99 09/14/17 15:59 09/14/17 15:59 09/14/17 15:59 09/14/17 15:59 09/14/17 15:59 - Physical Exam Comments: 09/14/17 17:18 CONSTITUTIONAL: (+) midlly tachypneic. Awake, Alert, in no apparent distress HEAD: Normocephalic; atraumatic EYES: PERRL; EOM intact ENMT: External appears normal; normal oropharynx NECK: Supple; non-tender; no cervical lymphadenopathy CARD: Normal S1, S2; no murmurs, rubs, or gallops RESP: (+) midly tachypneic. Breath sounds are distant and decreased bilaterally. no wheezes, rhonchi, or rales ABD: (+) Soft, distended, tympanitic, bowel sounds normal, tender to palpation along left paraspinal and flank. no palpable organomegaly, no palpable hernias, no rash EXT: Normal ROM in all four extremities; non-tender to palpation; distal pulses intact SKIN: Warm, dry, no rash NEURO: No focal neurological deficiencies. <Olivia Mckeon - Last Filed: 09/14/17 17:16> - Vital Signs Last Vital Signs Temp Pulse Resp BP Pulse Ox 98.2 F 112 H 22 136/80 99 09/14/17 15:59 09/14/17 15:59 09/14/17 15:59 09/14/17 15:59 09/14/17 15:59 <Eze Chahal - Last Filed: 09/14/17 20:38> ED Treatment Course - LABORATORY CBC & Chemistry Diagram: 09/14/17 16:48 09/14/17 16:48 - ADDITIONAL ORDERS Additional order review: 09/14/17 16:48 RBC 4.55 MCV 70.7 L MCHC 30.8 L RDW 16.4 H D MPV 8.5 Neutrophils % 74.7 Lymphocytes % 14.8 D Monocytes % 9.3 Eosinophils % 0.8 D Basophils % 0.4 - Medications Given in the ED: ED Medications Discontinued Medications Generic Name Dose Route Start Last Admin Trade Name Freq PRN Reason Stop Dose Admin Albuterol/Ipratropium 1 amp 09/14/17 16:47 09/14/17 17:08 Duoneb - NEB 09/14/17 16:48 1 amp ONCE ONE Administration Lidocaine 1 patch 09/14/17 16:47 09/14/17 17:04 Lidoderm Patch - TP 09/14/17 16:48 1 patch ONCE ONE Administration Morphine Sulfate 2 mg 09/14/17 16:46 09/14/17 16:58 Morphine Injection - IVPUSH 09/14/17 16:47 2 mg ONCE ONE Administration <Olivia Mckeon - Last Filed: 09/14/17 17:16> - LABORATORY CBC & Chemistry Diagram: 09/14/17 16:48 09/14/17 16:48 <Eze Chahal - Last Filed: 09/14/17 20:38> Medical Decision Making - Medical Decision Making 09/14/17 18:11 pt is a 57 y/o female with advanced COPD, on suppl O2 via NC at 3l/min presents with sharp, non-radiating left flank pain for 2 hrs, that is excacerbated by movt and palp. pt is awake and alert, mildly tachypneic, with reproducable left paraspinal and left cva ttp, w/o rash. abd is soft, tympanitic and distended. cbc/cmp are at baseline. ua shows 7 wbcs/hpf with 3 rbcs. DD includes ms pain vs kidney stone vs pyeolo. will obtain renal US. will adminisster pain meds. will reascess. 09/14/17 20:02 Patient's with symptoms improved. Patient is tolerating by mouth in the ED. Renal ultrasound shows no evidence of acute pathology, there is no evidence of hydronephrosis or hydroureter. No obstructive uropathy is identified. A UA reveals 7 WBCs per high-powered field. CBC shows mild leukocytosis. Mild pyelonephritis versus UTI with musculoskeletal strain is suspected. Patient safe for outpatient treatment with Cipro, lidocaine topical and Tylenol with Codeine with PMD follow-up. 09/14/17 20:38 pt at baseline with respiratory sxs. no indication for po steroids at this time. <Eze Chahal - Last Filed: 09/14/17 20:38> *DC/Admit/Observation/Transfer - Attestations Scribe Attestion: 09/14/17 17:22 Documentation prepared by Olivia Mckeon, acting as medical secretary teacher for Eze Chahal MD <Olivia Mckeon - Last Filed: 09/14/17 17:16> - Attestations Physician Attestion: 09/14/17 19:16 The documentation was prepared by the scribe under my direct supervision. I have reviewed the documentation which correctly represents the findings, medical decision-making and critical action taken by me. <Eze Chahal - Last Filed: 09/14/17 20:38> Diagnosis at time of Disposition: Flank pain, acute Urinary tract infection Qualifiers: Urinary tract infection type: site unspecified Hematuria presence: without hematuria Qualified Code(s): N39.0 - Urinary tract infection, site not specified - Discharge Dispostion Disposition: HOME Condition at time of disposition: Stable - Referrals Referrals: Marija Ro MD [Primary Care Provider] - - Patient Instructions Printed Discharge Instructions: DI for Flank Pain, DI for Urinary Tract Infection (UTI) - Post Discharge Activity
[2017-09-14] MEDS ORDERED: morphine CARPU-JECT 2 MG/1 ML DISP.SYRIN IVPUSH ONE (16:46)
[2017-09-14] MEDS ORDERED: LIDOCAINE 5% TOPICAL PATCH TP ONE (16:47)
[2017-09-14] MEDS ORDERED: ALBUTEROL SO4 2.5/IPRATROPIUM 0.5 INH SOL 3 ML VIAL.NEB. NEB ONE ×2 (16:47→20:04)
[2017-09-14] MEDS ORDERED: morphine CARPU-JECT 10 MG/1 ML DISP.SYRIN ONE (16:54)
[2017-09-14] MEDS ORDERED: LIDOCAINE 5% TOPICAL PATCH ONE (16:55)
[2017-09-14 16:59] LABS: BASO # 0.1 # (0.1-1); BASO % 0.4 % (0-2.0); EOS # 0.1 # (0-4.5); EOS % 0.8 % (0-4.5); MCH 21.8 pg (25.7-33.7); MCHC 30.8 g/dl (32.0-36.0); MEAN CELL VOLUME 70.7 fl (80-96); MEAN PLT VOLUME 8.5 fl (7.5-11.1); MONO # 1.3 # (3.8-10.2); NEUT # 10.3 # (42.8-82.8); NEUT % 74.7 % (42.8-82.8); PLATELET COUNT 208 K/MM3 (134-434); RDW 16.4 % (11.6-15.6); WHITE BLOOD COUNT 13.8 K/mm3 (4.0-10.0)
[2017-09-14 17:25] LABS: ALBUMIN 2.6 g/dl (3.4-5.0); ANION GAP 7 (8-16); CALCIUM 8.7 mg/dL (8.5-10.1); CO2 29 mmol/L (21-32); CREATININE 1.4 mg/dL (0.55-1.02); GLUCOSE,RANDOM 86 mg/dL (74-106); SGOT/AST 16 U/L (15-37); SGPT/ALT 12 U/L (12-78)
[2017-09-14 17:26] LABS: ALK PHOS 80 U/L (45-117); BILIRUBIN,TOTAL 0.3 mg/dL (0.2-1.0); TOT PROT 7.3 g/dl (6.4-8.2)
[2017-09-14 17:29] LABS: HYPOCHROMIA 2+; PLATELET COMMENTS NO CLUMPING NOTED; PLATELET ESTIMATE ADEQUATE; POLYCHROMASIA 1+; TARGET CELLS 1+
[2017-09-14 17:43] LABS: URINE APPEARANCE CLEAR; URINE BILIRUBIN NEGATIVE (NEGATIVE); URINE BLOOD NEGATIVE (NEGATIVE); URINE COLOR YELLOW; URINE GLUCOSE (UA) NEGATIVE (NEGATIVE); URINE KETONE NEGATIVE (NEGATIVE); URINE NITRITE NEGATIVE (NEGATIVE)
[2017-09-14 17:46] LABS: URINE LEUK ESTERASE 1+ (NEGATIVE); URINE PROTEIN 2+ (NEGATIVE)
[2017-09-14 17:47] LABS: URINE MUCUS RARE; URINE RBC 3 /hpf (0-3); URINE WBC 7 /hpf (3-5)
[2017-09-14 19:06] VITALS: BP 130/66; PULSE 90
[2017-09-14] MEDS ORDERED: ACETAMINOPHEN WITH CODEINE 300MG/30MG TABLET PO ONE (19:53)
[2017-09-14] MEDS ORDERED: ACETAMINOPHEN WITH CODEINE 300MG/30MG TABLET ONE (20:06)
[2017-09-14 20:25] LABS: URINE LEUK ESTERASE Negative (NEGATIVE)
[2017-09-14] MEDS ORDERED: LIDOCAINE PATCH REMOVAL MC SCH (22:00)
== END 2017-09-14 20:58 | disposition home or self-care (01) ==
LOC: JER 15:17
PROC: 3E0F7GC Introduction of Other Therapeutic Substance into Respiratory Tract, Via Natural or Artificial Opening (ICD-10-PCS; principal; 2017-09-14)
PROC: 3E0F7GC Introduction of Other Therapeutic Substance into Respiratory Tract, Via Natural or Artificial Opening (ICD-10-PCS; 2017-09-14)
PROC: 3E033NZ Introduction of Analgesics, Hypnotics, Sedatives into Peripheral Vein, Percutaneous Approach (ICD-10-PCS; 2017-09-14)
DX: N39.0 Urinary tract infection, site not specified (principal); Z99.81 Dependence on supplemental oxygen
CPT/HCPCS: 36415; 76775-TC; 80053; 81003; 81015; 85025; 87086; 99285-25

== ENCOUNTER 2017-12-05 13:47 | Inpatient (IN) | payer OTHER ==
--- NOTE | 2017-12-05 13:57 | PDOC ---
Attending Attestation - Resident Resident Name: Lucía Gilbert - HPI HPI: 12/05/17 16:24 Pt presents to the ED complaining of wheezing, shortness of breath consistent with prior COPD exacerbations. Also complaining of chest pain.
[2017-12-05 14:03] VITALS: BMI 29.8
--- NOTE | 2017-12-05 14:04 | PDOC ---
History of Present Illness - General Stated Complaint: CHEST PAIN Time Seen by Provider: 12/05/17 13:54 - History of Present Illness Initial Comments: 57 year old female with PMH of COPD on home O2 (supposed to be on 3L but self weaned to 2L), former smoker (60 pack years with frequent crack inhalation), multiple prior COPD exacerbations (most recently in our ICU in 06/06, never intubated) who presents to the ER with sudden onset intracoital chest pain and SOB. She was physical exerting herself during coitus with her and felt a sudden onset SOB and subsequent chest pain. She took three neubilizer treatments and an 81 mg aspirin but did not achieve relief. EMS arrived, gave her two nitros, a full dose aspirin, and a nebulizer treatment with relief of her chest pain and slight improvement of her SOB. Per EMS she was hypertensive to the 240s and SATing low 90s on 3L. She was just admitted for COPD exacerbation in our ICU from 05/24/17-05/31/17. Patient states that she has had some rhinorrhea and light cough over the last day but denies fevers, chills, nausea, vomiting, diarrhea, constipation, headache, hemoptysis, urinary symptoms , or other sick symptoms. 12/05/17 14:21 Past History - Past Medical History Allergies/Adverse Reactions: Allergies Allergy/AdvReac Type Severity Reaction Status Date / Time black walnut Allergy Severe Hives Verified 12/05/17 14:01 sulfamethoxazole Allergy Severe Swelling Verified 12/05/17 14:01 [From Bactrim] trimethoprim [From Bactrim] Allergy Severe Swelling Verified 12/05/17 14:01 PECAN Allergy Severe Hives Uncoded 12/05/17 14:01 Home Medications: Ambulatory Orders Albuterol 0.083% Nebulizer Destiny [Ventolin 0.083%] 1 neb NEB Q4H 12/05/17 Cholecalciferol (Vitamin D3) [Vitamin D3 -] 50,000 unit PO DAILY 12/05/17 Fluticasone/Salmeterol [Advair 250-50 Diskus] 2 each IH DAILY 12/05/17 Hydrochlorothiazide 25 mg PO DAILY 12/05/17 Hydroxyzine Pamoate 25 mg PO DAILY 12/05/17 Umeclidinium [place] [Incruse Ellipta] 62.5 mcg IH DAILY 12/05/17 Anemia: No Asthma: Yes Cancer: No Cardiac Disorders: Yes CVA: No COPD: Yes CHF: No DVT: No Dementia: No Diabetes: No Dialysis: No GI Disorders: No Disorders: No HTN: Yes Hypercholesterolemia: No Kidney Stones: No Liver Disease: No Psychiatric Problems: No Seizures: No Thyroid Disease: No Lung CA: No - Surgical History Abdominal Surgery: No Appendectomy: No Cardiac Surgery: No Cholecystectomy: No Gastric Stapling: No GI Surgery: No Lung Surgery: No Neurologic Surgery: No Orthopedic Surgery: No - Family Disease History Family Disease History: Other: Father (passed from kidney failure as refused HD) , Mother (kidney failure requiring HD) - Reproductive History PID: No - Immunization History Immunization Up to Date: Yes - Suicide/Smoking/Psychosocial Hx Smoking Status: No Smoking History: Never smoked Years of Tobacco Use: 45 (45 pack yr hx) Have you smoked in the past 12 months: No Number of Cigarettes Smoked Daily: 0 If you are a former smoker, when did you quit?: 2014 'Breaking Loose' booklet given: 04/10/15 Hx Alcohol Use: No Drug/Substance Use Hx: No Substance Use Type: None Hx Substance Use Treatment: Yes Review of Systems - Review of Systems Constitutional: No: Chills, Diaphoresis, Fever HEENTM: Yes: Nose Congestion. No: Blurred Vision Respiratory: Yes: Cough, Shortness of Breath, SOB with Exertion Cardiac (ROS): Yes: Chest Pain, Chest Tightness. No: Edema, Lightheadedness, Palpitations, Syncope ABD/GI: No: Constipated, Nausea, Vomiting : No: Burning, Dysuria Musculoskeletal: No: Muscle Pain, Muscle Weakness Integumentary: No: Bruising, Erythema Neurological: No: Headache, Numbness, Paresthesia Psychiatric: No: Anxiety, Depression Endocrine: No: Flushing, Unexplained Weight Gain *Physical Exam - Vital Signs Last Vital Signs Temp Pulse Resp BP Pulse Ox 118 H 24 145/104 90 L 12/05/17 13:57 12/05/17 13:57 12/05/17 13:57 12/05/17 13:57 - Physical Exam General Appearance: Yes: Nourished, Appropriately Dressed, Apparent Distress, Moderate Distress (Respiratory distress, particularly when speaking with occasional sternal retractions) HEENT: positive: EOMI, FANTASMA, Normal Voice, Pharynx Normal. negative: Normal ENT Inspection (Nasal congestion) Neck: positive: Trachea midline, Normal Thyroid, Supple. negative: Tender, Rigid Respiratory/Chest: positive: Respiratory Distress, Accessory Muscle Use. negative: Chest Tender, Lungs Clear (Constricted with decreased airway movement bilaterally and ocasional expiratory wheezes), Normal Breath Sounds Cardiovascular: positive: Regular Rhythm, Tachycardia. negative: Regular Rate, Edema, JVD Gastrointestinal/Abdominal: positive: Normal Bowel Sounds, Soft. negative: Tender Musculoskeletal: positive: Normal Inspection. negative: Decreased Range of Motion Extremity: positive: Normal Capillary Refill, Normal Inspection, Normal Range of Motion. negative: Tender Integumentary: positive: Normal Color, Dry, Warm Neurologic: positive: Fully Oriented, Alert, Normal Mood/Affect, Normal Response , Motor Strength 5/5 Heart Score/ECG Review - History History: Slightly suspicious - Electrocardiogram EKG: Normal - Age Age: 45-65 - Risk Factors Risk Factors Heart Score: Yes Hx Hypertension, Yes Smoking History, Yes Hx Obesity Based on the list above the patient has:: >/=3 risk factors or Hx atherosclerotic disease - Troponin Troponin: </= normal limit - Score Heart Score - Total: 3 - ECG Intrepretation Rhythm: Regular Rhythm - [place]: Normal - P and IA Atrial Enlargement: Right - ST and T Early Repolarization: No Non Specific ST-T Wave changes: No - ECG Impressions Normal ECG: Yes ED Treatment Course - LABORATORY CBC & Chemistry Diagram: 12/05/17 14:10 12/05/17 14:10 Medical Decision Making - Medical Decision Making 57 year old female with PMH of COPD and HTN presenting with acute SOB and chest pain after exertion. Recent Echo 7 months prior was significant only for moderately elevated RVSP 40-50 indicating possible right heart failure. Patient' s SOB/ chest pain resolved eventually with 5 doses of nebs (3 at ome, one in EMS , and 2 in the ED), 125 methyldpred, and 2 doses of sublingual nitro. Labs returned grossly normal with exception of slightly elevated BNP (200s but has been hgher in the past) and doesn't have JVD, pitting edema, S3, or rales/ crackles. Will admit to tele inpatient. 12/05/17 15:09 *DC/Admit/Observation/Transfer Diagnosis at time of Disposition: COPD exacerbation - Discharge Dispostion Disposition: HOME Condition at time of disposition: Improved Admit: Yes - Referrals - Patient Instructions - Post Discharge Activity
[2017-12-05] MEDS ORDERED: methylPREDNISolone NA SUCC 125 MG/2 ML VIAL IVPB ONE (14:06)
[2017-12-05] MEDS: ALBUTEROL SO4 2.5/IPRATROPIUM 0.5 INH SOL 3 ML VIAL.NEB. NEB SCH ×2 (14:10→14:19)
[2017-12-05] MEDS ORDERED: methylPREDNISolone NA SUCC 125 MG/2 ML VIAL ONE (14:17)
[2017-12-05] MEDS ORDERED: ALBUTEROL SO4 2.5/IPRATROPIUM 0.5 INH SOL 3 ML VIAL.NEB. NEB ONE (14:17)
[2017-12-05 14:20] LABS: BASO % 0.5 % (0-2.0); EOS % 2.1 % (0-4.5); HEMATOCRIT 33.4 % (32.4-45.2); HEMOGLOBIN 10.2 GM/dL (10.7-15.3); LYMPH % 16.9 % (8-40); MCH 22.1 pg (25.7-33.7); MCHC 30.6 g/dl (32.0-36.0); MEAN CELL VOLUME 72.3 fl (80-96); MEAN PLT VOLUME 8.6 fl (7.5-11.1); MONO % 9.6 % (3.8-10.2); NEUT % 70.9 % (42.8-82.8); PLATELET COUNT 178 K/MM3 (134-434); RBC 4.61 M/mm3 (3.60-5.2); RDW 16.9 % (11.6-15.6)
[2017-12-05 14:36] LABS: VENOUS PC02 57.6 mmHg (38-52); VENOUS PH 7.36 (7.32-7.42)
[2017-12-05 14:46] LABS: ALBUMIN 2.9 g/dl (3.4-5.0); ANION GAP 9 (8-16); BLOOD UREA NITROGEN 16 mg/dL (7-18); CALCIUM 8.7 mg/dL (8.5-10.1); CHLORIDE 104 mmol/L (98-107); CO2 32 mmol/L (21-32); CREATININE 1.1 mg/dL (0.55-1.02); GLUCOSE,RANDOM 104 mg/dL (74-106); MAGNESIUM 2.2 mg/dL (1.8-2.4); POTASSIUM 3.9 mmol/L (3.5-5.1); SGOT/AST 16 U/L (15-37); SGPT/ALT 10 U/L (12-78); SODIUM 145 mmol/L (136-145)
[2017-12-05 14:50] LABS: ALK PHOS 101 U/L (45-117); BILIRUBIN,TOTAL 0.2 mg/dL (0.2-1.0); N-TERMINAL BNP 207.87 pg/ml (5-125); TOT PROT 7.6 g/dl (6.4-8.2)
[2017-12-05] MEDS ORDERED: IBUPROFEN 600 MG TABLET (FP) PO ONE (15:47)
--- NOTE | 2017-12-05 17:31 | EKG ---
Test Reason : Blood Pressure : / mmHG Vent. Rate : 110 BPM Atrial Rate : 110 BPM P-R Int : 148 ms QRS Dur : 070 ms QT Int : 348 ms P-R-T Axes : 086 062 069 degrees QTc Int : 470 ms SINUS TACHYCARDIA RIGHT ATRIAL ENLARGEMENT BORDERLINE ECG WHEN COMPARED WITH ECG OF 29-MAY-2017 07:05, NO SIGNIFICANT CHANGE WAS FOUND Confirmed by FIGUEROA LAGUNAS MD ([id number]) on 12/05/2017 5:31:32 PM Referred By: Confirmed By:FIGUEROA LAGUNAS MD
--- NOTE | 2017-12-05 19:36 | HP ---
CHIEF COMPLAINT: SOB HISTORY OF PRESENT ILLNESS: 57 year-old female with a PMH significant for HTN, COPD on home O2 with frequent exacerbations, and cocaine use. Patient presents with complaint of shortness of breath, dry cough, and pleuritic-type chest pain typical of her previous COPD exacerbations. She denies fever, sweats, chills. Patient may have accidentally ingested cocaine yesterday when cleaning out a bureau that had some leftover cocaine powder that might have gotten under her fingernails and into her mouth. ER course was notable for: (1) (2) (3) Recent Travel No PAST MEDICAL HISTORY: Hypertension COPD Cocaine abuse PAST SURGICAL HISTORY: None reported Social History: Smokin pack year smoking history Alcohol: Occasional Drugs: Former crack cocaine abuser Family History: Hx of Kidney disease mother and father - kidney failure requiring HD Allergies black walnut Allergy (Severe, Verified 12/05/17 14:01) Hives pt states she is not allergic to black walnuts sulfamethoxazole [From Bactrim] Allergy (Severe, Verified 12/05/17 14:01) Swelling trimethoprim [From Bactrim] Allergy (Severe, Verified 12/05/17 14:01) Swelling PECAN Allergy (Severe, Uncoded 12/05/17 14:01) Hives pt states she is not allergic to PECANS HOME MEDICATIONS: Home Medications Medication Instructions Recorded Albuterol 0.083% Nebulizer Destiny 1 neb NEB Q4H 12/05/17 [Ventolin 0.083%] Cholecalciferol (Vitamin D3) 50,000 unit PO WEEKLY 12/05/17 [Vitamin D3 -] Fluticasone/Salmeterol [Advair 2 each IH DAILY 12/05/17 250-50 Diskus] Hydrochlorothiazide 25 mg PO DAILY 12/05/17 Hydroxyzine Pamoate 25 mg PO DAILY 12/05/17 Umeclidinium [place] [Incruse 62.5 mcg IH DAILY 12/05/17 Ellipta] REVIEW OF SYSTEMS CONSTITUTIONAL: Absent: fever, chills, diaphoresis, generalized weakness, malaise, loss of appetite, weight change HEENT: Absent: rhinorrhea, nasal congestion, throat pain, throat swelling, difficulty swallowing, mouth swelling, ear pain, eye pain, visual changes CARDIOVASCULAR: Absent: syncope, palpitations, irregular heart rate, lightheadedness, peripheral edema Present: chest pain, chest tightness RESPIRATORY: Absent: cough, orthopnea, wheezing, stridor, hemoptysis Present: shortness of breath, dyspnea with exertion GASTROINTESTINAL: Absent: abdominal pain, abdominal distension, nausea, vomiting, diarrhea, constipation, melena, hematochezia GENITOURINARY: Absent: dysuria, frequency, urgency, hesitancy, hematuria, flank pain, genital pain MUSCULOSKELETAL: Absent: myalgia, arthralgia, joint swelling, back pain, neck pain SKIN: Absent: rash, itching, pallor HEMATOLOGIC/IMMUNOLOGIC: Absent: easy bleeding, easy bruising, lymphadenopathy, frequent infections ENDOCRINE: Absent: unexplained weight gain, unexplained weight loss, heat intolerance, cold intolerance NEUROLOGIC: Absent: headache, focal weakness or paresthesias, dizziness, unsteady gait, seizure, mental status changes, bladder or bowel incontinence PSYCHIATRIC: Absent: anxiety, depression, suicidal or homicidal ideation, hallucinations. PHYSICAL EXAMINATION Vital Signs - 24 hr 12/05/17 12/05/17 12/05/17 13:57 15:50 17:00 Temperature 98.3 F Pulse Rate 118 H 103 H Pulse Rate [ 98 H Both Radial] Respiratory 24 20 20 Rate Blood Pressure 145/104 144/86 Blood Pressure 143/85 [Right Arm] O2 Sat by Pulse 90 L 98 Oximetry (%) GENERAL: Awake, alert, and fully oriented, in no acute distress. HEAD: Normal with no signs of trauma. EYES: Pupils equal, round and reactive to light, extraocular movements intact, sclera anicteric, conjunctiva clear. No lid lag. EARS, NOSE, THROAT: Ears normal, nares patent, oropharynx clear without exudates. Moist mucous membranes. NECK: Normal range of motion, supple without lymphadenopathy, JVD, or masses. LUNGS: Diffuse rhonchi and wheezing HEART: Regular rate and rhythm, normal S1 and S2 . ABDOMEN: Soft, nontender, not distended, normoactive bowel sounds, no guarding, no rebound, no masses. No hepatomegaly or splenomegaly. MUSCULOSKELETAL: Normal range of motion at all joints. No bony deformities or tenderness. No CVA tenderness. UPPER EXTREMITIES: 2+ pulses, warm, well-perfused. No cyanosis. No clubbing. No peripheral edema. LOWER EXTREMITIES: 2+ pulses, warm, well-perfused. No calf tenderness. No peripheral edema. NEUROLOGICAL: Cranial nerves II-XII intact. Normal speech. Laboratory Results - last 24 hr 12/05/17 12/05/17 12/05/17 14:10 14:10 14:20 WBC 8.0 D RBC 4.61 Hgb 10.2 L Hct 33.4 MCV 72.3 L MCH 22.1 L MCHC 30.6 L RDW 16.9 H Plt Count 178 MPV 8.6 Neutrophils % 70.9 Lymphocytes % 16.9 Monocytes % 9.6 Eosinophils % 2.1 D Basophils % 0.5 VBG pH 7.36 POC VBG pCO2 57.6 H POC VBG pO2 102.0 H Mixed VBG HCO3 31.4 H Sodium 145 Potassium 3.9 Chloride 104 Carbon Dioxide 32 Anion Gap 9 BUN 16 Creatinine 1.1 H Creat Clearance w eGFR 51.02 Random Glucose 104 Calcium 8.7 Phosphorus 3.0 Magnesium 2.2 Total Bilirubin 0.2 D AST 16 ALT 10 L Alkaline Phosphatase 101 Creatine Kinase 126 Troponin I < 0.02 B-Natriuretic Peptide 207.87 H Total Protein 7.6 Albumin 2.9 L ASSESSMENT/PLAN 57 year-old female with a PMH significant for HTN, COPD on home O2 with frequent exacerbations, and cocaine use. Admitted for COPD exacerbation. COPD exacerbation --Solumedrol, empiric levofloxacin, duonebs --titrate O2 >92% Hypertension --BP 145/104 on admission but improved now --takes only HCTZ at home to control BP --suspicion of current cocaine use, avoid beta blockers FEN Fluids: PO intake adequate Electrolytes: replete as indicated Nutrition: low sodium DVT prophylaxis: subq heparin, oob, ambulation Physical therapy Dispo: continues to require inpatient care. Full code. Visit type - Emergency Visit Emergency Visit: Yes ED Registration Date: 12/05/17 Care time: The patient presented to the Emergency Department on the above date and was hospitalized for further evaluation of their emergent condition. - New Patient This patient is new to me today: Yes Date on this admission: 12/06/17 - Critical Care Critical Care patient: No Hospitalist Screening - Colonoscopy Questionnaire Colonoscopy Questionnaire: Colonoscopy Questionnaire - Patient: 50 - 75 years old and never had a screening colonoscopy: Unknown History of colon or rectal polyps, or CA: No History of IBD, Crohn's disease or UC: No History of abdominal radiation therapy as a child: No - Relative: 1 with colon or rectal CA, or polyps at age 60 or younger: Unknown Colon or rectal CA diagnosed at age 45 or younger: Unknown Multiple relatives with colon or rectal CA: Unknown - Outcome: Screening Result: Negative Screen
[2017-12-05] MEDS ORDERED: ALBUTEROL SO4 2.5/IPRATROPIUM 0.5 INH SOL 3 ML VIAL.NEB. NEB PRN (19:47)
[2017-12-05] MEDS ORDERED: ACETAMINOPHEN 325 MG TABLET (FP) PO ONE (22:50)
[2017-12-05] MEDS ORDERED: ACETAMINOPHEN 325 MG TABLET (FP) ONE (22:52)
[2017-12-06 04:27] LABS: BASO % 0.2 % (0-2.0); HEMATOCRIT 32.5 % (32.4-45.2); HEMOGLOBIN 10.1 GM/dL (10.7-15.3); LYMPH % 12.2 % (8-40); MCH 22.3 pg (25.7-33.7); MCHC 31.1 g/dl (32.0-36.0); MEAN CELL VOLUME 71.6 fl (80-96); MEAN PLT VOLUME 8.9 fl (7.5-11.1); MONO % 2.5 % (3.8-10.2); NEUT % 85.1 % (42.8-82.8); PLATELET COUNT 178 K/MM3 (134-434); RBC 4.53 M/mm3 (3.60-5.2); RDW 16.2 % (11.6-15.6); WHITE BLOOD COUNT 8.3 K/mm3 (4.0-10.0)
[2017-12-06 05:10] LABS: ALBUMIN 2.9 g/dl (3.4-5.0); ALK PHOS 107 U/L (45-117); ANION GAP 8 (8-16); BILIRUBIN,TOTAL 0.2 mg/dL (0.2-1.0); BLOOD UREA NITROGEN 21 mg/dL (7-18); CALCIUM 9.3 mg/dL (8.5-10.1); CHLORIDE 104 mmol/L (98-107); CO2 32 mmol/L (21-32); CREATININE 1.2 mg/dL (0.55-1.02); GLUCOSE,RANDOM 142 mg/dL (74-106); MAGNESIUM 2.3 mg/dL (1.8-2.4); PHOSPHOROUS 2.3 mg/dL (2.5-4.9); POTASSIUM 4.4 mmol/L (3.5-5.1); SGOT/AST 14 U/L (15-37); SGPT/ALT 12 U/L (12-78); SODIUM 144 mmol/L (136-145); TOT PROT 7.6 g/dl (6.4-8.2)
[2017-12-06] MEDS ORDERED: methylPREDNISolone NA SUCC 40 MG/1 ML VIAL IVPUSH SCH (09:00)
[2017-12-06] MEDS ORDERED: NAPH,MB-DB/K PH,MBDB POWDER PACKET PO ONE (09:30)
[2017-12-06] MEDS: HYDROCHLOROTHIAZIDE 25 MG TABLET (FP) PO SCH (09:34)
[2017-12-06] MEDS: ALBUTEROL SO4 2.5/IPRATROPIUM 0.5 INH SOL 3 ML VIAL.NEB. NEB SCH ×2 (11:00→18:05)
[2017-12-06] MEDS ORDERED: PT OWN MED DRAWER 7, Y5N ONE (11:14)
[2017-12-06] MEDS: hydrOXYzine PAMOATE 25 MG CAPSULE (FP) PO SCH (11:19)
--- NOTE | 2017-12-06 11:22 | PN ---
Physical Exam: SUBJECTIVE: Patient seen and examined. She reports her breathing is better than yesterday, however not to her baseline. She has never been intubated OBJECTIVE: Vital Signs Period Temp Pulse Resp BP Sys/Echevarria Pulse Ox Last 24 Hr 97.6 F-98.3 F 82-118 20-24 131-148/68-104 90-98 PE Neuro: alert, awake, cn 2-12intact Pulm: basilar wheezing, rhonchi + nc Cv: s1 s2 rrr no mrg Abd: s nt nd +bs Ext: warm, no le edema Laboratory Results - last 24 hr 12/05/17 12/05/17 12/05/17 14:10 14:10 14:20 WBC 8.0 D RBC 4.61 Hgb 10.2 L Hct 33.4 MCV 72.3 L MCH 22.1 L MCHC 30.6 L RDW 16.9 H Plt Count 178 MPV 8.6 Neutrophils % 70.9 Lymphocytes % 16.9 Monocytes % 9.6 Eosinophils % 2.1 D Basophils % 0.5 VBG pH 7.36 POC VBG pCO2 57.6 H POC VBG pO2 102.0 H Mixed VBG HCO3 31.4 H Sodium 145 Potassium 3.9 Chloride 104 Carbon Dioxide 32 Anion Gap 9 BUN 16 Creatinine 1.1 H Creat Clearance w eGFR 51.02 Random Glucose 104 Calcium 8.7 Phosphorus 3.0 Magnesium 2.2 Total Bilirubin 0.2 D AST 16 ALT 10 L Alkaline Phosphatase 101 Creatine Kinase 126 Troponin I < 0.02 B-Natriuretic Peptide 207.87 H Total Protein 7.6 Albumin 2.9 L 12/05/17 12/06/17 12/06/17 20:30 04:00 04:00 WBC 8.3 RBC 4.53 Hgb 10.1 L Hct 32.5 MCV 71.6 L MCH 22.3 L MCHC 31.1 L RDW 16.2 H Plt Count 178 MPV 8.9 Neutrophils % 85.1 H D Lymphocytes % 12.2 D Monocytes % 2.5 L Eosinophils % 0.0 D Basophils % 0.2 VBG pH POC VBG pCO2 POC VBG pO2 Mixed VBG HCO3 Sodium 144 Potassium 4.4 Chloride 104 Carbon Dioxide 32 Anion Gap 8 BUN 21 H Creatinine 1.2 H Creat Clearance w eGFR 46.14 Random Glucose 142 H Calcium 9.3 Phosphorus 2.3 L Magnesium 2.3 Total Bilirubin 0.2 AST 14 L ALT 12 Alkaline Phosphatase 107 Creatine Kinase Troponin I < 0.02 < 0.02 B-Natriuretic Peptide Total Protein 7.6 Albumin 2.9 L Active Medications Generic Name Dose Route Start Last Admin Trade Name Andrea PRN Reason Stop Dose Admin Albuterol/Ipratropium 1 amp 12/06/17 12:00 Duoneb - NEB Q6HPO ZACHARY Heparin Sodium (Porcine) 5,000 unit 12/06/17 14:00 Heparin - SQ TID ZACHARY Hydrochlorothiazide 25 mg 12/06/17 10:00 12/06/17 09:34 Hctz - PO 25 mg DAILY ZACHARY Administration Hydroxyzine Pamoate 25 mg 12/06/17 10:00 Vistaril - PO DAILY ZACHARY Levofloxacin 500 mg in 100 mls @ 100 mls/hr 12/06/17 10:00 12/06/17 09:35 Levaquin 500 Mg Premixed Ivpb - IVPB 100 mls/hr DAILY ZACHARY Administration Methylprednisolone Sodium Succinate 40 mg 12/06/17 18:00 Solu-Medrol - IVPUSH Q8H-IV ZACHARY Assessment: 57 year old female with a PMH significant for HTN, COPD on home O2 with frequent exacerbations, and cocaine use. Admitted for COPD exacerbation. Plan: 1. Acute COPD exacerbation - Continue soludmedrol 40mg q8hr - Pt reports mother last week, crying exacerbates her breathing, she is compliant with inhalers and home o2 (ellipta, advair) - Continue empiric levaquin - Duonebs [facility] - Pulmonary consulted 2. Hypertension - Controlled this morning - Continue HCTZ, vistaril - Avoid BB d/t cocain use 3. Hypophosphatemia - Replete [facility] 2pkts now 4. DVT ppx - Heparin sq Visit type - Emergency Visit Emergency Visit: Yes ED Registration Date: 12/05/17 Care time: The patient presented to the Emergency Department on the above date and was hospitalized for further evaluation of their emergent condition. - New Patient This patient is new to me today: Yes Date on this admission: 12/06/17 - Critical Care Critical Care patient: No
--- NOTE | 2017-12-06 12:20 | PN ---
Progress Note (short form) - Note Progress Note: PULMONARY CONSULTATION DICTATED 12/06/17 IMP ACUTE ON CHRONIC HYPOXEMIC/HYPERCAPNEIC RESPIRATORY FAILURE COPD WITH ACUTE EXACERBATION CHEST PAIN PLAN IV STEROIDS O2 INHALED BRONCHODILATORS PFTS OUTPATIENT CARDIOLOGY EVALUATION Problem List - Problems (1) Acute on chronic respiratory failure with hypoxia and hypercapnia Code(s): J96.21 - ACUTE AND CHRONIC RESPIRATORY FAILURE WITH HYPOXIA; J96.22 - ACUTE AND CHRONIC RESPIRATORY FAILURE WITH HYPERCAPNIA (2) Chest pain Code(s): R07.9 - CHEST PAIN, UNSPECIFIED (3) COPD exacerbation Code(s): J44.1 - CHRONIC OBSTRUCTIVE PULMONARY DISEASE W (ACUTE) EXACERBATION (4) Supplemental oxygen dependent Code(s): Z99.81 - DEPENDENCE ON SUPPLEMENTAL OXYGEN (5) Asthma Code(s): J45.909 - UNSPECIFIED ASTHMA, UNCOMPLICATED (6) Chronic respiratory failure with hypoxia Code(s): J96.11 - CHRONIC RESPIRATORY FAILURE WITH HYPOXIA
--- NOTE | 2017-12-06 14:38 | CONS ---
DATE OF CONSULTATION: 12/06/2017 REFERRING PHYSICIAN: HISTORY: The patient is a 57-year-old black female known to me from previous hospitalizations with advanced COPD on home O2 currently on 2 L; history of tobacco use 60 pack years, quit 3 years ago; multiple exacerbations of COPD requiring hospitalization most recently on June 06 in the ICU secondary to acute respiratory failure, not intubated; admitted to [facility] with the complaint of a 3-day history of increasing shortness of breath and chest congestion. The patient states her mother recently and the was on Wednesday. She started developing some chest congestion that day. She took inhalers without any improvement. Yesterday during exertion she started developing a chest heaviness at which time she presented to the emergency room with the above. When she had the chest heaviness, she took 3 nebulizers and an aspirin without improvement. EMS gave her 2 nitroglycerin and a full-dose of aspirin with some improvement in her chest pain. She denied any fever, chills, nausea, vomiting, or diaphoresis. The patient presented to the emergency room. She was noted to be hypertensive and O2 saturations in the low 90s on 3 L. The patient was treated with IV steroids, inhaled bronchodilators with good response and transferred to the medical floor for further management. The patient denies any hemoptysis. There is no history of occupational exposure to chemicals or fumes. PAST MEDICAL HISTORY: Again includes advanced COPD with chronic hypercapnic hypoxemic respiratory failure on O2. REVIEW OF SYSTEMS: Positive orthopnea, positive dyspnea, positive cough, chest pain. No fever, no chills, no hemoptysis, no abdominal pain. CURRENT MEDICATIONS: Include Vistaril, DuoNeb, Levaquin, Solu-Medrol, and Symbicort. PHYSICAL EXAMINATION: General: The patient is a well-developed, well-nourished female awake and alert, currently in no acute distress. Vital Signs: She is afebrile. Blood pressure 141/82, respiratory rate 20, O2 saturation 96% on 3 L. HEENT: Normocephalic and atraumatic. Neck: Supple. Heart: Regular with S1, S2. Chest: Scattered bilateral wheezes. Abdomen: Soft. Bowel sounds are positive. Extremities: No cyanosis or edema. LABORATORIES: WBC 8.3, hemoglobin 10.1, hematocrit 32.5 with a platelet count of 178,000. BUN 21, creatinine 1.2. Venous blood gas pH 7.36, PCO2 of 36 and 57 with PO2 of 102, bicarbonate 31. Chest x-ray reveals no infiltrates and no effusions. Chemistries: BNP 207, troponin less than 0.02. IMPRESSION: 1. Acute on chronic hypoxemic hypercapnic respiratory failure secondary to: A. Chronic obstructive pulmonary disease with acute exacerbation. 2. Chest pain likely pulmonary. 3. History of tobacco abuse. PLAN: IV steroids, inhaled bronchodilators, supplemental O2. Cardiac evaluation. PFT as an outpatient. FRANKI SMITH M.D. [id number]
[2017-12-06] MEDS ORDERED: ALBUTEROL SO4 0.083% IH SOL 2.5 MG/3 ML VIAL.NEB. NEB ONE (15:10)
[2017-12-06] MEDS: HEPARIN NA (PORCINE) 5,000 UNITS/ML 1ML VIAL SQ SCH ×2 (16:05→21:18)
[2017-12-06] MEDS: methylPREDNISolone NA SUCC 40 MG/1 ML VIAL IVPUSH SCH (17:44)
[2017-12-06] MEDS: BUDESONIDE/FORMETEROL FUMARATE 80/4.5 mcg INHALER IH SCH (21:20)
[2017-12-07] MEDS: methylPREDNISolone NA SUCC 40 MG/1 ML VIAL IVPUSH SCH ×3 (02:35→18:21)
[2017-12-07] MEDS: HEPARIN NA (PORCINE) 5,000 UNITS/ML 1ML VIAL SQ SCH ×2 (06:02→13:55)
[2017-12-07] MEDS: ALBUTEROL SO4 2.5/IPRATROPIUM 0.5 INH SOL 3 ML VIAL.NEB. NEB SCH ×3 (08:05→16:10)
[2017-12-07 08:28] LABS: ANION GAP 4 (8-16); BLOOD UREA NITROGEN 29 mg/dL (7-18); CALCIUM 8.5 mg/dL (8.5-10.1); CHLORIDE 101 mmol/L (98-107); CO2 35 mmol/L (21-32); CREATININE 1.1 mg/dL (0.55-1.02); GLUCOSE,RANDOM 115 mg/dL (74-106); PHOSPHOROUS 3.7 mg/dL (2.5-4.9); POTASSIUM 4.9 mmol/L (3.5-5.1); SODIUM 140 mmol/L (136-145)
[2017-12-07] MEDS ORDERED: PT OWN MED DRAWER 7, Y5N ONE (10:14)
[2017-12-07] MEDS: HYDROCHLOROTHIAZIDE 25 MG TABLET (FP) PO SCH (10:18)
[2017-12-07] MEDS: BUDESONIDE/FORMETEROL FUMARATE 80/4.5 mcg INHALER IH SCH (10:18)
[2017-12-07] MEDS: hydrOXYzine PAMOATE 25 MG CAPSULE (FP) PO SCH (10:20)
--- NOTE | 2017-12-07 11:40 | PN ---
Progress Note (short form) - Note Progress Note: PULMONARY States breathing is improved, close to baseline. Occasional cough and wheezing. Last Vital Signs Temp Pulse Resp BP Pulse Ox 98.3 F 92 H 20 155/86 95 12/07/17 06:00 12/07/17 06:00 12/07/17 06:00 12/07/17 06:00 12/07/17 06:00 Gen: NAD in chair Heart: RRR Lung: scattered rhonchi Abd: soft, nontender Ext: no edema CBC, BMP 12/06/17 04:00 12/07/17 07:35 Active Medications Albuterol/Ipratropium (Duoneb -) 1 amp NEB RQID [facility] Last Admin: 12/07/17 08:05 Dose: 1 amp Budesonide/Formoterol Fumarate (Symbicort 80/4.5mcg -) 2 puff IH BID [facility] Last Admin: 12/07/17 10:18 Dose: Not Given Heparin Sodium (Porcine) (Heparin -) 5,000 unit SQ TID [facility] Last Admin: 12/07/17 06:02 Dose: 5,000 unit Hydrochlorothiazide (Hctz -) 25 mg PO DAILY [facility] Last Admin: 12/07/17 10:18 Dose: 25 mg Hydroxyzine Pamoate (Vistaril -) 25 mg PO DAILY [facility] Last Admin: 12/07/17 10:20 Dose: 25 mg Levofloxacin (Levaquin 500 Mg Premixed Ivpb -) 500 mg in 100 mls @ 100 mls/hr IVPB DAILY [facility] Last Admin: 12/07/17 10:19 Dose: 100 mls/hr Methylprednisolone Sodium Succinate (Solu-Medrol -) 40 mg IVPUSH Q8H-IV [facility] Last Admin: 12/07/17 10:32 Dose: 40 mg A/P Acute COPD Exacerbation Chronic Hypoxic and Hypercapneic Respiratory Failure HTN Cocaine Use - can change steroids to PO prednisone and taper as outpt - inhaled bronchodilators - O2 to keep SpO2 >90% - outpt PFTs - can d/c home from pulmonary standpoint
[2017-12-07 14:39] VITALS: BP 141/97; PULSE 94; TEMP 97.9
--- NOTE | 2017-12-07 16:38 | DS ---
Physical Exam: SUBJECTIVE: Patient seen and examined. She appears much improved today, breathing unlabored. OBJECTIVE: Vital Signs Period Temp Pulse Resp BP Sys/Echevarria Pulse Ox Last 24 Hr 97.8 F-98.7 F 73-110 20-24 129-155/76-97 93-98 PE Neuro: alert, awake, cn 2-12intact Pulm: course bs, rhonchi + nc no wheezing Cv: s1 s2 rrr no mrg Abd: s nt nd +bs Ext: warm, no le edema Laboratory Results - last 24 hr 12/07/17 07:35 Sodium 140 Potassium 4.9 Chloride 101 Carbon Dioxide 35 H Anion Gap 4 L BUN 29 H Creatinine 1.1 H Random Glucose 115 H Calcium 8.5 Phosphorus 3.7 HOSPITAL COURSE: Date of Admission:12/06/17 Date of Discharge: 12/07/17 Minutes to complete discharge: 37 Discharge Summary Reason For Visit: COPD/SOB/ACUTE EXACERBATION OF CHRONIC PULMONARY D Current Active Problems Acute on chronic respiratory failure with hypoxia and hypercapnia (Acute) COPD exacerbation (Acute) Chest pain (Acute) Hospital Course: Initial Hospital Course: Briefly, this 57 year old female with a PMH significant for HTN, COPD on home O2 with frequent exacerbations, and cocaine use presented with complaint of shortness of breath, dry cough, and pleuritic-type chest pain typical of her previous COPD exacerbations. Patient may have accidentally ingested cocaine yesterday when cleaning out a bureau that had some leftover cocaine powder that might have gotten under her fingernails and into her mouth. Subsequent Hospital Course/Progress Note/DC summary: Assessment: 57 year old female with a PMH significant for HTN, COPD on home O2 with frequent exacerbations, and cocaine use. Admitted for COPD exacerbation. Plan: 1. Acute COPD exacerbation - s/p short course IV steroids - Home with PO prednisone taper - Home o2 in place - Pulmonary referral enclosed for follow up - Stopped abx 2. Hypertension - Continue HCTZ, vistaril - Avoid BB d/t cocain use 3. Hypophosphatemia - Repleted Dispo: - Home with above meds and plan - Pt aware and agrees Condition: Stable - Instructions Diet, Activity, Other Instructions: Please return to the ED for any new, persistent, or worsening symptoms. Follow up with your PCP in 1 week Resume home medications as directed Take steroid taper as follows 4tabs tonight, 4 tabs tomorrow morning and night, then 4tabs daily x3days, 3tabs daily x3days, 2tabs daily x3days, 1tab daily x3days A pulmonolgist referral has been made, make an appt to see Dr. Wilson in 1 week A cardiology referral has also been made, make an appt to see in 2 weeks for baseline work up Referrals: Rick Castellano MD [Staff Physician] - Mario Bustamante MD [Staff Physician] - Disposition: HOME - Home Medications Comprehensive Discharge Medication List: Ambulatory Orders Albuterol 0.083% Nebulizer Destiny [Ventolin 0.083% Nebulizer Soln -] 1 neb NEB Q4H 12/05/17 Cholecalciferol (Vitamin D3) [Vitamin D -] 50,000 unit PO WEEKLY 12/05/17 Fluticasone/Salmeterol [Advair 250-50 Diskus] 2 each IH DAILY 12/05/17 Hydrochlorothiazide 25 mg PO DAILY 12/05/17 Hydroxyzine Pamoate 25 mg PO DAILY 12/05/17 Umeclidinium [place] [Incruse Ellipta] 62.5 mcg IH DAILY 12/05/17 Prednisone 10 mg PO ASDIR #38 tablet 12/07/17 This patient is new to me today: No Emergency Visit: Yes ED Registration Date: 12/06/17 Care time: The patient presented to the Emergency Department on the above date and was hospitalized for further evaluation of their emergent condition. Critical Care patient: No - Discharge Referral Referred to [facility] Med P.C.: Yes Physician Referral: Mario Bustamante MD (Pulm)
== END 2017-12-07 19:00 | disposition home or self-care (01) | DRG 140 ==
LOC: JER 13:47 → INTOOBSV 15:32 → UNDOADMOB 15:32 → JERBED 15:32 → J4W 17:55 → JERBED 19:41 → J4W 19:41 → OBSVTOIN 12-06 12:30 → J6S 12-06 13:06
PROVIDERS: ADMIT Internal Medicine; ATTEND Nurse Practitioner Acute Care
DX: J44.1 Chronic obstructive pulmonary disease with (acute) exacerbation (principal); I10 Essential (primary) hypertension; Z99.81 Dependence on supplemental oxygen; Z87.891 Personal history of nicotine dependence; F14.10 Cocaine abuse, uncomplicated; E83.39 Other disorders of phosphorus metabolism; J96.21 Acute and chronic respiratory failure with hypoxia; J96.22 Acute and chronic respiratory failure with hypercapnia; R07.89 Other chest pain
CPT/HCPCS: 36415; 71045-TC-FY; 80048; 80053; 82550; 82803; 83735; 83880; 84100; 84484; 85025; 93005; 93010; 94640; 97116-GP; 97161-GP; 99285-25; G0378; J1644

== ENCOUNTER 2018-01-20 15:36 | Emergency (ER) | payer OTHER ==
[2018-01-20 16:01] VITALS: BMI 24.0
--- NOTE | 2018-01-20 16:05 | PDOC ---
History of Present Illness - General History Source: Patient, EMS Exam Limitations: No Limitations - History of Present Illness Initial Comments: 01/20/18 16:34 The patient is a 57 year old female brought via EMS, with a significant past medical history of COPD (Home O2 - 3 Liters), right hip and right knee arthritis and HTN, who presents to the emergency department complaining of shortness of breath, presyncope and dizziness onset today. She notes that she has been hydrating well but has not ate much today. She reports that she received multiple breathing treatments administered by EMS and notes that she felt better afterwards. She reports that her last bowel movement was today and was normal. The patient denies chest pain, blurred vision, fever, chills, nausea, vomiting, diarrhea and constipation. Denies dysuria, frequency, urgency and hematuria. Allergies: Bactrim, black walnut, Past surgical history: None reported Social History: 45 years of Tobacco use. No drug or alcohol use. <Roberto Carlos Bernard - Last Filed: 01/20/18 16:34> <Batsheva Piedra - Last Filed: 01/20/18 19:18> - General Chief Complaint: Shortness of Breath Stated Complaint: ASTHMA Time Seen by Provider: 01/20/18 16:04 Past History <Roberto Carlos Bernard - Last Filed: 01/20/18 16:34> - Past Medical History Anemia: No Asthma: Yes Cancer: No Cardiac Disorders: Yes CVA: No COPD: Yes CHF: No DVT: No Dementia: No Diabetes: No Dialysis: No GI Disorders: No Disorders: No HTN: Yes Hypercholesterolemia: No Kidney Stones: No Liver Disease: No Psychiatric Problems: No Seizures: No Thyroid Disease: No Lung CA: No - Surgical History Abdominal Surgery: No Appendectomy: No Cardiac Surgery: No Cholecystectomy: No Gastric Stapling: No GI Surgery: No Lung Surgery: No Neurologic Surgery: No Orthopedic Surgery: No - Family Disease History Family Disease History: Other: Father (passed from kidney failure as refused HD) , Mother (kidney failure requiring HD) - Reproductive History PID: No - Immunization History Immunization Up to Date: Yes - Suicide/Smoking/Psychosocial Hx Smoking Status: No Smoking History: Unknown if ever smoked Years of Tobacco Use: 45 (45 pack yr hx) Have you smoked in the past 12 months: No Number of Cigarettes Smoked Daily: 0 If you are a former smoker, when did you quit?: 2014 Information on smoking cessation initiated: No 'Breaking Loose' booklet given: 04/10/15 Hx Alcohol Use: No Drug/Substance Use Hx: No Substance Use Type: None Hx Substance Use Treatment: Yes <Batsheva Piedra - Last Filed: 01/20/18 19:18> - Past Medical History Allergies/Adverse Reactions: Allergies Allergy/AdvReac Type Severity Reaction Status Date / Time black walnut Allergy Severe Hives Verified 12/05/17 14:01 sulfamethoxazole Allergy Severe Swelling Verified 12/05/17 14:01 [From Bactrim] trimethoprim [From Bactrim] Allergy Severe Swelling Verified 12/05/17 14:01 PECAN Allergy Severe Hives Uncoded 12/05/17 14:01 Home Medications: Ambulatory Orders Albuterol 0.083% Nebulizer Destiny [Ventolin 0.083% Nebulizer Soln -] 1 neb NEB Q4H 12/05/17 Cholecalciferol (Vitamin D3) [Vitamin D -] 50,000 unit PO WEEKLY 12/05/17 Fluticasone/Salmeterol [Advair 250-50 Diskus] 2 each IH DAILY 12/05/17 Hydrochlorothiazide 25 mg PO DAILY 12/05/17 Hydroxyzine Pamoate 25 mg PO DAILY 12/05/17 Umeclidinium [place] [Incruse Ellipta] 62.5 mcg IH DAILY 12/05/17 Prednisone 10 mg PO ASDIR #38 tablet 12/07/17 Albuterol Sulfate Inhaler - [Ventolin HFA Inhaler -] 1 - 2 inh PO Q4H PRN #1 inhaler 01/20/18 Azithromycin [Zithromax 250mg Tablets -] 250 mg PO UTDICT #6 tab 01/20/18 Prednisone [Deltasone] 40 mg PO DAILY #8 tablet 01/20/18 Review of Systems - Review of Systems Able to Perform ROS?: Yes Comments:: 01/20/18 16:35 GENERAL/CONSTITUTIONAL: No fever or chills. No weakness. HEAD, EYES, EARS, NOSE AND THROAT: No change in vision. No ear pain or discharge. No sore throat. GASTROINTESTINAL: No nausea, vomiting, diarrhea or constipation. GENITOURINARY: No dysuria, frequency, or change in urination. CARDIOVASCULAR: (+) Shortness of breath. No chest pain. RESPIRATORY: No cough, wheezing, or hemoptysis. MUSCULOSKELETAL: No joint or muscle swelling or pain. No neck or back pain. SKIN: No rash NEUROLOGIC: (+) Dizziness, pre-syncope. No headache, vertigo, or change in strength/sensation. ENDOCRINE: No increased thirst. No abnormal weight change. HEMATOLOGIC/LYMPHATIC: No anemia, easy bleeding, or history of blood clots. ALLERGIC/IMMUNOLOGIC: No hives or skin allergy. <Roberto Carlos Bernard - Last Filed: 01/20/18 16:34> *Physical Exam - Vital Signs Last Vital Signs Temp Pulse Resp BP Pulse Ox 98.2 F 87 28 H 135/100 86 L 01/20/18 15:55 01/20/18 15:55 01/20/18 15:55 01/20/18 15:55 01/20/18 15:55 - Physical Exam Comments: 01/20/18 16:51 Constitutional: Awake, alert, oriented. No acute distress. Head: Normocephalic. Atraumatic Eyes: PERRL. EOMI. Conjunctivae are not pale. ENT: (+) Mucous membranes are dry. Posterior pharynx without exudates or erythema. Uvula midline. Neck: Supple. Full ROM. No lymphadenopathy. Cardiovascular: (+) Tachycardia. Regular rhythm. S1, S2 regular. Distal pulses are 2+ and symmetric. Pulmonary/Chest: (+) Wheezing and coarse breath sounds. No evidence of respiratory distress. No rales or rhonchi. No conversational dyspnea. Abdominal: Soft and non-distended. There is no tenderness. No rebound, guarding or rigidity. No organomegaly. No palpable masses. Good bowel sounds. Back: No CVA tenderness. Musculoskeletal: No edema. No cyanosis. No clubbing. Full range of motion in all extremities. Nocalf tenderness. Radial/pedal pulses are intact and 2+ bilaterally Skin: Skin is warm and dry. No petechiae. No purpura. Neurological: Alert and oriented to person, place, and time. Cranial nerves II -XII are grossly intact. Normal speech. Strength is grossly symmetric. No sensory deficits. Psychiatric: Good eye contact. Normal interaction, affect and behavior. <Roberto Carlos Bernard - Last Filed: 01/20/18 16:34> - Vital Signs Last Vital Signs Temp Pulse Resp BP Pulse Ox 98.2 F 87 28 H 135/100 86 L 01/20/18 15:55 01/20/18 15:55 01/20/18 15:55 01/20/18 15:55 01/20/18 15:55 <Batsheva Piedra - Last Filed: 01/20/18 19:18> Heart Score/ECG Review - ECG Intrepretation Comment:: 01/20/18 16:19 sinus at 89, nl axis, nl interval, no acute st/t wave findings <Batsheva Piedra - Last Filed: 01/20/18 19:18> ED Treatment Course - Medications Given in the ED: ED Medications Discontinued Medications Generic Name Dose Route Start Last Admin Trade Name Freq PRN Reason Stop Dose Admin Albuterol/Ipratropium 1 amp 01/20/18 16:12 01/20/18 16:24 Duoneb - NEB 01/20/18 16:13 1 amp ONCE ONE Administration Sodium Chloride 1,000 ml 01/20/18 16:12 01/20/18 16:24 Normal Saline - IV 01/20/18 16:13 1,000 ml ONCE ONE Administration <Roberto Carlos Bernard - Last Filed: 01/20/18 16:34> - LABORATORY CBC & Chemistry Diagram: 01/20/18 17:02 01/20/18 16:24 <Batsheva Piedra - Last Filed: 01/20/18 19:18> Medical Decision Making - Medical Decision Making 01/20/18 16:20 a/p: 57yo female with lightheadedness, mild dehydration, sob, and cough - productive yellow sputum -suspect dehydration from the heat and HCTZ -suspect asthma exacerbation with poss bronchitis vs pna -will check orthostatics, will obtain labs, cxr, 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, received decadron in the field pt states already feeling better after nebs in the field no conversational dyspnea at this time 01/20/18 19:13 pt feeling much better 97 on NC - on home O2 stable for d/c to home on azithromycin, prednisone, albuterol <Batsheva Piedra - Last Filed: 01/20/18 19:18> *DC/Admit/Observation/Transfer - Attestations Scribe Attestion: 01/20/18 16:53 Documentation prepared by Roberto Carlos Bernard, acting as medical psychotherapist for Batsheva Piedra DO <Roberto Carlos Bernard - Last Filed: 01/20/18 16:34> - Discharge Dispostion Admit: No - Attestations Physician Attestion: 01/20/18 19:18 I, Dr. Batsheva Piedra, DO, attest that this document has been prepared under my direction and personally reviewed by me in its entirety. I further attest, that it accurately reflects all work, treatment, procedures and medical decision -making performed by me. <Batsheva Piedra - Last Filed: 01/20/18 19:18> Diagnosis at time of Disposition: COPD (chronic obstructive pulmonary disease) with acute bronchitis - Discharge Dispostion Disposition: HOME Condition at time of disposition: Stable - Prescriptions Prescriptions: Albuterol Sulfate Inhaler - [Ventolin HFA Inhaler -] 1 - 2 inh PO Q4H PRN #1 inhaler PRN Reason: Wheezing Azithromycin [Zithromax 250mg Tablets -] 250 mg PO UTDICT #6 tab Prednisone [Deltasone] 40 mg PO DAILY #8 tablet - Referrals Referrals: Mairja Ro MD [Primary Care Provider] - Mario Bustamante MD [Staff Physician] - - Patient Instructions Printed Discharge Instructions: DI for Chronic Obstructive Pulmonary Disease Additional Instructions: Please take all meds as prescribed. Please drink plenty of fluids. Please return to the ED with any further concerns or complaints. 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 - Post Discharge Activity
[2018-01-20] MEDS ORDERED: ALBUTEROL SO4 2.5/IPRATROPIUM 0.5 INH SOL 3 ML VIAL.NEB. NEB ONE (16:12)
[2018-01-20] MEDS ORDERED: SODIUM CHLORIDE 0.9% 1000 ML INFUS.BAG IV ONE (16:12)
[2018-01-20] MEDS ORDERED: MAGNESIUM SULF 50% (8.12 MEQ/2 ML-1 GM VIAL) IVPB ONE (16:13)
[2018-01-20] MEDS ORDERED: MAGNESIUM SULF 50% (8.12 MEQ/2 ML-1 GM VIAL) ONE (16:29)
[2018-01-20 17:17] LABS: BASO % 0.5 % (0-2.0); EOS % 1.6 % (0-4.5); HEMATOCRIT 29.7 % (32.4-45.2); HEMOGLOBIN 9.4 GM/dL (10.7-15.3); LYMPH % 18.4 % (8-40); MCH 22.5 pg (25.7-33.7); MCHC 31.6 g/dl (32.0-36.0); MEAN CELL VOLUME 71.4 fl (80-96); MEAN PLT VOLUME 8.2 fl (7.5-11.1); MONO % 4.9 % (3.8-10.2); NEUT % 74.6 % (42.8-82.8); PLATELET COUNT 187 K/MM3 (134-434); RBC 4.17 M/mm3 (3.60-5.2); RDW 15.9 % (11.6-15.6); WHITE BLOOD COUNT 6.7 K/mm3 (4.0-10.0)
[2018-01-20 17:40] LABS: ANION GAP 9 (8-16); CHLORIDE 106 mmol/L (98-107); CO2 30 mmol/L (21-32); CREATININE 1.3 mg/dL (0.55-1.02); GLUCOSE,RANDOM 82 mg/dL (74-106); MAGNESIUM 2.5 mg/dL (1.8-2.4); POTASSIUM 4.1 mmol/L (3.5-5.1); SGOT/AST 15 U/L (15-37); SGPT/ALT 12 U/L (12-78); SODIUM 145 mmol/L (136-145)
[2018-01-20 18:35] LABS: ALBUMIN 2.8 g/dl (3.4-5.0); BILIRUBIN,TOTAL 0.1 mg/dL (0.2-1.0); BLOOD UREA NITROGEN 24 mg/dL (7-18); TOT PROT 7.8 g/dl (6.4-8.2)
[2018-01-20 18:36] LABS: ALK PHOS 80 U/L (45-117)
[2018-01-20] MEDS ORDERED: AZITHROMYCIN 250 MG TABLET PO ONE (19:14)
[2018-01-20] MEDS ORDERED: AZITHROMYCIN 250 MG TABLET ONE (19:23)
[2018-01-20 19:47] VITALS: BP 110/78; PULSE 89; TEMP 98.5
--- NOTE | 2018-01-21 09:39 | EKG ---
Test Reason : Blood Pressure : / mmHG Vent. Rate : 089 BPM Atrial Rate : 089 BPM P-R Int : 142 ms QRS Dur : 076 ms QT Int : 398 ms P-R-T Axes : 079 043 059 degrees QTc Int : 484 ms NORMAL SINUS RHYTHM POSSIBLE LEFT ATRIAL ENLARGEMENT PROLONGED QT ABNORMAL ECG WHEN COMPARED WITH ECG OF 05-DEC-2017 14:11, NO SIGNIFICANT CHANGE WAS FOUND Confirmed by MADELAINE PANIAGUA MD ([id number]) on 01/21/2018 9:38:45 AM Referred By: Confirmed By:MADELAINE PANIAGUA MD
== END 2018-01-20 19:50 | disposition home or self-care (01) ==
LOC: JER 15:36
PROC: 3E0337Z Introduction of Electrolytic and Water Balance Substance into Peripheral Vein, Percutaneous Approach (ICD-10-PCS; principal; 2018-01-20)
PROC: 3E0F7GC Introduction of Other Therapeutic Substance into Respiratory Tract, Via Natural or Artificial Opening (ICD-10-PCS; 2018-01-20)
PROC: 3E033GC Introduction of Other Therapeutic Substance into Peripheral Vein, Percutaneous Approach (ICD-10-PCS; 2018-01-20)
DX: J44.9 Chronic obstructive pulmonary disease, unspecified (principal); I10 Essential (primary) hypertension; I51.9 Heart disease, unspecified
CPT/HCPCS: 36415; 71045-TC-FY; 80053; 82550; 83735; 83880; 84484; 85025; 93005; 93010; 99285-25; J7030; J7620

== ENCOUNTER 2018-02-04 02:58 | Inpatient (IN) | payer OTHER ==
[2018-02-04] MEDS ORDERED: ALBUTEROL SO4 2.5/IPRATROPIUM 0.5 INH SOL 3 ML VIAL.NEB. NEB ONE ×2 (03:07→04:16)
[2018-02-04] MEDS ORDERED: MAGNESIUM SULF 50% (8.12 MEQ/2 ML-1 GM VIAL) IVPB ONE ×2 (03:11)
[2018-02-04 03:24] VITALS: BMI 22.7
--- NOTE | 2018-02-04 03:24 | PDOC ---
History of Present Illness - General Chief Complaint: Shortness of Breath Stated Complaint: DIFFICULTY BREATHING Time Seen by Provider: 02/04/18 03:06 History Source: Patient Exam Limitations: No Limitations - History of Present Illness Initial Comments: 02/04/18 03:23 The patient is a 57F with a PMH of HTN, COPD, and asthma, who presents to the ER with complaints of shortness of breath. The patient states that her shortness of breath started around 5-6 hours prior to her presentation. She states that she tried taking 3-5 albuterol treatments without any help. She denies any changes of breathing with movement. She does admit to chest tightness. She denies fever, chills, nausea, vomiting, abdominal pain. Past History - Past Medical History Allergies/Adverse Reactions: Allergies Allergy/AdvReac Type Severity Reaction Status Date / Time black walnut Allergy Severe Hives Verified 02/04/18 03:22 sulfamethoxazole Allergy Severe Swelling Verified 02/04/18 03:22 [From Bactrim] trimethoprim [From Bactrim] Allergy Severe Swelling Verified 02/04/18 03:22 PECAN Allergy Severe Hives Uncoded 02/04/18 03:22 Home Medications: Ambulatory Orders Albuterol 0.083% Nebulizer Destiny [Ventolin 0.083% Nebulizer Soln -] 1 neb NEB Q4H 12/05/17 Cholecalciferol (Vitamin D3) [Vitamin D -] 50,000 unit PO WEEKLY 12/05/17 Fluticasone/Salmeterol [Advair 250-50 Diskus] 2 each IH DAILY 12/05/17 Hydrochlorothiazide 25 mg PO DAILY 12/05/17 Hydroxyzine Pamoate 25 mg PO DAILY 12/05/17 Prednisone 10 mg PO ASDIR #38 tablet 12/07/17 Albuterol Sulfate Inhaler - [Ventolin HFA Inhaler -] 1 - 2 inh PO Q4H PRN #1 inhaler 01/20/18 Anemia: No Asthma: Yes Cancer: No Cardiac Disorders: Yes CVA: No COPD: Yes CHF: No DVT: No Dementia: No Diabetes: No Dialysis: No GI Disorders: No Disorders: No HTN: Yes Hypercholesterolemia: No Kidney Stones: No Liver Disease: No Psychiatric Problems: No Seizures: No Thyroid Disease: No Lung CA: No - Surgical History Abdominal Surgery: No Appendectomy: No Cardiac Surgery: No Cholecystectomy: No Gastric Stapling: No GI Surgery: No Lung Surgery: No Neurologic Surgery: No Orthopedic Surgery: No - Family Disease History Family Disease History: Other: Father (passed from kidney failure as refused HD) , Mother (kidney failure requiring HD) - Reproductive History PID: No - Immunization History Immunization Up to Date: Yes - Suicide/Smoking/Psychosocial Hx Smoking Status: No Smoking History: Unknown if ever smoked Years of Tobacco Use: 45 (45 pack yr hx) Have you smoked in the past 12 months: No Number of Cigarettes Smoked Daily: 0 If you are a former smoker, when did you quit?: 2014 'Breaking Loose' booklet given: 04/10/15 Hx Alcohol Use: No Drug/Substance Use Hx: No Substance Use Type: None Hx Substance Use Treatment: Yes Review of Systems - Review of Systems Able to Perform ROS?: Yes Comments:: 02/04/18 03:56 GENERAL/CONSTITUTIONAL: No fever or chills. No weakness. HEAD, EYES, EARS, NOSE AND THROAT: No change in vision. No ear pain or discharge. No sore throat. CARDIOVASCULAR: Positive for chest tightness. No chest pain, palpitations, or lightheadedness. RESPIRATORY: Positive for cough and shortness of breath. No wheezing or hemoptysis. GASTROINTESTINAL: No nausea, vomiting, diarrhea, constipation, or abdominal pain. GENITOURINARY: No dysuria, frequency, hematuria, or change in urination. MUSCULOSKELETAL: No joint or muscle swelling or pain. No neck or back pain. SKIN: No rash or lesions. NEUROLOGIC: No headache, numbness, tingling, weakness, loss of consciousness, or change in strength/sensation. ENDOCRINE: No increased thirst. No abnormal weight change. HEMATOLOGIC/LYMPHATIC: No anemia, easy bleeding, or history of blood clots. ALLERGIC/IMMUNOLOGIC: No hives or skin allergy. Is the patient limited Luxem[place]ish proficient: No *Physical Exam - Physical Exam Comments: 02/04/18 04:02 GENERAL: Well developed, well nourished. Awake and alert. No acute distress. HEENT: Normocephalic, atraumatic. Hearing grossly normal. Moist mucous membranes. PERRLA, EOMI. No conjunctival pallor. Sclera are non-icteric. NECK: Supple. Full ROM. CARDIOVASCULAR: Regular rate and rhythm. No murmurs, rubs, or gallops. PULMONARY: Mild respiratory distress - pt is tachypneic but no retractions or increased work of breathing. Diffuse wheezing noted on inspiration and expiration. R LL crackles appreciated. ABDOMINAL: Soft. Non-tender. Non-distended. No rebound or guarding. GENITOURINARY: No CVA tenderness bilaterally. MUSCULOSKELETAL: Normal range of motion at all joints. No bony deformities or tenderness. EXTREMITIES: No cyanosis. No clubbing. No edema. No calf tenderness or swelling. SKIN: Warm and dry. Normal capillary refill. No rashes. No jaundice. NEUROLOGICAL: Alert, awake, appropriate. Cranial nerves 2-12 intact. Normal speech. Gait is normal without ataxia. PSYCHIATRIC: Cooperative. Good eye contact. Appropriate mood and affect. Heart Score/ECG Review #1 ECG reviewed & interpreted by me at: 03:25 General ECG Interpretation: Sinus Rhythm, Normal Rate, Normal Intervals, No acute ischemic changes Compared to previous ECG there are: Changes noted 02/04/18 04:08 Sinus tach rate 150 LA 128 QRS 66 QTc 407 No acute ischemic changes noted No STD or BRANDON ED Treatment Course - LABORATORY CBC & Chemistry Diagram: 02/04/18 03:21 02/04/18 03:21 - RADIOLOGY Radiology Studies Ordered: Category Date Time Status CHEST X-RAY PORTABLE* [RAD] Stat Radiology 02/04/18 03:07 Ordered Medical Decision Making - Medical Decision Making 02/04/18 04:08 The patient is a 57F with a PMH of COPD, HTN, and asthma who presents with acutely worsening SOB. The patient denies any smoking, exogenous estrogen use, hx of DVT, hemoptysis, hx of cancer, and recent travel/long car rides. She is hypoxic at baseline d/t COPD. She is normoxic on O2. However, with her fever, tachycardia, and tachypnea, she is likely septic d/t infection (PNA vs bronchitis). Will monitor closely and give abx. 02/04/18 06:11 XR negative. Pt remains tachycardic. Will page hospitalist for admission. First gram of ceftriaxone did not go into pt's IV d/t unscrewed IV cap. Will order second gram and fix IV cap. 02/04/18 06:20 I have endorsed the patient to Dr. Lang for COPD exacerbation with maintained tachycardia. *DC/Admit/Observation/Transfer Diagnosis at time of Disposition: COPD exacerbation - Discharge Dispostion Condition at time of disposition: Guarded Decision to Admit order: Yes - Referrals - Patient Instructions - Post Discharge Activity
[2018-02-04 03:28] LABS: BASO % 0.4 % (0-2.0); EOS % 1.1 % (0-4.5); HEMATOCRIT 34.2 % (32.4-45.2); HEMOGLOBIN 10.4 GM/dL (10.7-15.3); LYMPH % 10.5 % (8-40); MCH 21.6 pg (25.7-33.7); MCHC 30.5 g/dl (32.0-36.0); MEAN CELL VOLUME 70.8 fl (80-96); MEAN PLT VOLUME 8.6 fl (7.5-11.1); MONO % 8.8 % (3.8-10.2); NEUT % 79.2 % (42.8-82.8); PLATELET COUNT 201 K/MM3 (134-434); RBC 4.83 M/mm3 (3.60-5.2); RDW 16.6 % (11.6-15.6); VENOUS PH 7.33 (7.32-7.42); VENOUS PO2 63.3 mmHg (28-48); WHITE BLOOD COUNT 11.2 K/mm3 (4.0-10.0)
[2018-02-04 03:30] LABS: VENOUS PC02 62.9 mmHg (38-52)
[2018-02-04 03:47] LABS: INR 1.11 (0.82-1.09); PROTHROMBIN TIME (PATIENT) 12.5 SEC (9.7-13.0)
[2018-02-04 03:50] LABS: ACTIVATED PTT 33.7 SECONDS (26.9-34.4)
[2018-02-04 03:52] LABS: ADD RBC MORPHOLOGY YES
[2018-02-04 03:54] LABS: ANION GAP 6 (8-16); BILIRUBIN,TOTAL 0.2 mg/dL (0.2-1.0); BLOOD UREA NITROGEN 19 mg/dL (7-18); CALCIUM 8.5 mg/dL (8.5-10.1); CHLORIDE 104 mmol/L (98-107); CO2 32 mmol/L (21-32); CREATININE 1.3 mg/dL (0.55-1.02); GLUCOSE,RANDOM 128 mg/dL (74-106); POTASSIUM 4.4 mmol/L (3.5-5.1); SGOT/AST 13 U/L (15-37); SGPT/ALT 13 U/L (12-78); SODIUM 142 mmol/L (136-145); TOT PROT 7.8 g/dl (6.4-8.2)
[2018-02-04] MEDS ORDERED: ACETAMINOPHEN 1000 MG/100 ML VIAL (NON FORMULARY) IVPB ONE (03:55)
[2018-02-04 03:56] LABS: ALK PHOS 92 U/L (45-117)
[2018-02-04] MEDS ORDERED: CEFTRIAXONE 1,000 MG in DEXTROSE 5%-WATER - 50 ML IVPB ONE ×2 (04:03→05:18)
[2018-02-04] MEDS ORDERED: AZITHROMYCIN IVPB 500 MG in DEXTROSE 5%-WATER - 250 ML IVPB ONE (04:05)
[2018-02-04] MEDS ORDERED: MAGNESIUM SULF 50% (8.12 MEQ/2 ML-1 GM VIAL) ONE (04:16)
[2018-02-04] MEDS ORDERED: ACETAMINOPHEN INJECTION 100 ML IVPB ONE (04:17)
--- NOTE | 2018-02-04 04:39 | PDOC ---
Attending Attestation - HPI HPI: 02/04/18 04:39 Patient is a 57 year old female with a significant past medical history of HTN, COPD on home O2 with frequent exacerbations, and cocaine use who presents to the ED with complaints of shortness of breath that began just prior to ED arrival. Patient reports taking an albuterol treatment with no relief, prompting her to come into the ED for further evaluation. She reports experiencing associated symptoms of chest tightness. Denies nausea, vomiting. Denies contact with sick individuals, out of state traveling. Denies any other symptoms. Allergies: black walnut Allergy,sulfamethoxazole,trimethoprim,PECAN, Social history: No smoking. No alcohol No illicit drugs. Surgical history: None PMD: None <Simon Cardona - Last Filed: 02/04/18 04:39> - Resident Resident Name: Marlon Sabillon - ED Attending Attestation I have performed the following: I have examined & evaluated the patient, The case was reviewed & discussed with the resident, I agree w/resident's findings & plan, Exceptions are as noted - Physicial Exam PE: 02/04/18 04:37 *Physical Exam General Appearance: Yes: Appropriately Dressed. No: Apparent Distress, Intoxicated HEENT: positive: EOMI, FANTASMA, Normal ENT Inspection, Normal Voice, TMs Normal, Pharynx Normal. negative: Pale Conjunctivae, Photophobia, Scleral Icterus (R), Scleral Icterus (L) Neck: positive: Trachea midline, Normal Thyroid, Supple. negative: Tender, Rigid, Carotid bruit, Stridor, Lymphadenopathy (R), Lymphadenopathy (L), Thyromegaly Respiratory/Chest: positive: Decreased BS, bilateral wheezing, + retractions, mild conversational dyspnea Cardiovascular: positive: Tachy Rate, S1, S2. negative: Edema, JVD, Murmur, Bradycardia, Vascular Pulses: Dorsalis-Pedis (R): 2+, Doralis-Pedis (L): 2+ Gastrointestinal/Abdominal: positive: Normal Bowel Sounds, Flat, Soft. negative : Tender, Organomegaly, Pulsatile Mass, Increased Bowel Sounds, Decreased BS, Distended, Guarding, Rebound, Hernia, Hepatomegaly, Spleenomegaly Lymphatic: negative: Adenopathy, Tenderness Musculoskeletal: positive: Normal Inspection. negative: CVA Tenderness, Decreased Range of Motion Extremity: positive: Normal Capillary Refill, Normal Inspection, Normal Range of Motion, Pelvis Stable. negative: Tender, Pedal Edema, Swelling, Erythema Integumentary: positive: Normal Color, Dry, Warm. negative: Cyanotic, Erythema , Jaundice, Rash Neurologic: positive: wet trimmer II-XII NML intact, Fully Oriented, Alert, Normal Mood/ Affect, Motor Strength 5/5. negative: EOM Palsy, Facial Droop, Sensory Deficit - Medical Decision Making 02/08/18 19:26 Pt admitted for further treatment and care <Roberto Carlos Vaughn - Last Filed: 02/08/18 19:26>
[2018-02-04] MEDS ORDERED: CEFTRIAXONE 1 GM/50 ML BAG ONE (04:57)
[2018-02-04] MEDS ORDERED: AZITHROMYCIN IVPB 250 ML IVPB ONE (04:57)
[2018-02-04] MEDS ORDERED: SODIUM CHLORIDE 0.9% 1000 ML INFUS.BAG IV ONE (05:13)
[2018-02-04 06:40] LABS: URINE APPEARANCE SLCLOUDY; URINE BILIRUBIN NEGATIVE (<2.0 mg/dL); URINE COLOR YELLOW; URINE GLUCOSE (UA) NEGATIVE (NEGATIVE); URINE KETONE NEGATIVE (NEGATIVE); URINE NITRITE NEGATIVE (NEGATIVE); URINE UROBILINOGEN NEGATIVE mg/dL (0.2-1.0)
[2018-02-04 06:48] LABS: URINE LEUK ESTERASE 3+ (NEGATIVE); URINE PROTEIN 2+ (NEGATIVE)
[2018-02-04 06:50] LABS: EPI CELLS MODERATE /HPF (FEW); URINE BACTERIA RARE /hpf (NONE SEEN); URINE HYALINE CAST 3 /lpf; URINE MUCUS RARE
--- NOTE | 2018-02-04 08:20 | HP ---
CHIEF COMPLAINT:Shortness of breath PCP: Dr. Saba HISTORY OF PRESENT ILLNESS: 57F with PMH of HTN, COPD on 3L O2, Anemia, presents to the hospital for shortness of breath. Per patient she started to get short of breath yesterday evening. She then stated using her nebulizers and she still was short of breath which prompted her see further medical care. She states she has been compliant with her home O2 at 3L/min. She states she has a chronic cough and she always spits up yellow phlegm. She complains of associated chest tightness which she exhibits with her exacerbations. She denies nausea, vomiting, chills, chest pain , dysuria, urinary frequency, or urgency. She denies any gastrointestinal complaints. She does not have constipation or diarrhea but she does endorse green stools for the past month and she thinks it may be due to timur greens. Patient did not have a fever at home but while in the ED she did spike a fever to 101.2. She denies recent travel or sick contacts. She showed me a whole bunch of prescription receipts for multiple COPD medications such as Incruse, Advair, Combivent, Ventolin rescue inhaler, and Ventolin nebulizer, but she is not compliant with taking any of them. She states she was supposed to have fecal DNA testing instead of a colonoscopy and she has the kit at home but never sent the stool sample. She is supposed to follow with Dr. Nunez for GI but has not done so. She states the medications she is compliant with are the vitamin D3 once a week, HCTZ, hydroxyzine for anxiety, folic acid, and Iron. ER course was notable for: (1)oxygen IVF (2)Labs CXR (3)EKG Recent Travel:Denies PAST MEDICAL HISTORY:HTN, COPD on 3L/M O2, Anxiety, Iron Deficiency Anemia PAST SURGICAL HISTORY:none reported Social History: Smoking:Former smoker not currently an active smoker Alcohol:Denies Drugs: Crack Cocaine last use 6 years ago per patient Allergies black walnut Allergy (Severe, Verified 02/04/18 03:22) Hives pt states she is not allergic to black walnuts sulfamethoxazole [From Bactrim] Allergy (Severe, Verified 02/04/18 03:22) Swelling trimethoprim [From Bactrim] Allergy (Severe, Verified 02/04/18 03:22) Swelling PECAN Allergy (Severe, Uncoded 02/04/18 03:22) Hives pt states she is not allergic to PECANS HOME MEDICATIONS: Home Medications Home Medications Medication Instructions Recorded Albuterol 0.083% Nebulizer Destiny 1 neb NEB Q4H 12/05/17 [Ventolin 0.083% Nebulizer Soln -] Cholecalciferol (Vitamin D3) 50,000 unit PO WEEKLY 12/05/17 [Vitamin D -] Fluticasone/Salmeterol [Advair 2 each IH DAILY 12/05/17 500-50 Diskus] Hydrochlorothiazide 25 mg PO DAILY 12/05/17 Hydroxyzine Pamoate 25 mg PO DAILY 12/05/17 Albuterol Sulfate Inhaler - 1 - 2 inh PO Q4H PRN #1 inhaler 01/20/18 [Ventolin HFA Inhaler -] Ferrous Sulfate [Feosol] 325 mg PO DAILY 02/04/18 Folic Acid 1 mg PO DAILY 02/04/18 Umeclidinium [place] [Incruse 62.5 mcg IH DAILY 02/04/18 Ellipta] REVIEW OF SYSTEMS CONSTITUTIONAL: Absent: chills, diaphoresis, generalized weakness, malaise, loss of appetite, weight change Present: fever HEENT: Absent: rhinorrhea, nasal congestion, throat pain, throat swelling, difficulty swallowing, mouth swelling, ear pain, eye pain, visual changes CARDIOVASCULAR: Absent: chest pain, syncope, palpitations, irregular heart rate, lightheadedness , peripheral edema Present: Chest tightness RESPIRATORY: Absent: dyspnea with exertion, orthopnea, stridor, hemoptysis Present: cough, shortness of breath, Wheezing GASTROINTESTINAL: Absent: abdominal pain, abdominal distension, nausea, vomiting, diarrhea, constipation, melena, hematochezia Present: green stools for past month GENITOURINARY: Absent: dysuria, frequency, urgency, hesitancy, hematuria, flank pain, genital pain MUSCULOSKELETAL: Absent: myalgia, arthralgia, joint swelling, back pain, neck pain SKIN: Absent: rash, itching, pallor HEMATOLOGIC/IMMUNOLOGIC: Absent: easy bleeding, easy bruising, lymphadenopathy, frequent infections ENDOCRINE: Absent: unexplained weight gain, unexplained weight loss, heat intolerance, cold intolerance NEUROLOGIC: Absent: headache, focal weakness or paresthesias, dizziness, unsteady gait, seizure, mental status changes, bladder or bowel incontinence PSYCHIATRIC: Absent: depression, suicidal or homicidal ideation, hallucinations. Present: anxiety PHYSICAL EXAMINATION Vital Signs - 24 hr 02/04/18 02/04/18 02/04/18 03:10 05:12 06:17 Temperature 101.2 F H 98.6 F Pulse Rate 150 H Pulse Rate [ 132 H 121 H Apical] Respiratory 26 H 22 26 H Rate Blood Pressure 150/57 Blood Pressure 141/95 144/66 [Left Arm] O2 Sat by Pulse 100 99 91 L Oximetry (%) 02/04/18 07:57 Temperature Pulse Rate 104 H Pulse Rate [ Apical] Respiratory Rate Blood Pressure Blood Pressure [Left Arm] O2 Sat by Pulse 100 Oximetry (%) GENERAL: AAOx3 NAD HEAD: Normal with no signs of trauma. EYES: Pupils equal, round and reactive to light, extraocular movements intact NECK: No JVD LUNGS: Diffuse expiratory wheezing with bibasilar crackles HEART: Tachycardic normal S1 and S2 without murmur ABDOMEN: Soft, slightly-tender RUQ, mildly distended MUSCULOSKELETAL: Normal range of motion at all joints. No bony deformities or tenderness. No CVA tenderness. UPPER EXTREMITIES: warm, well-perfused. No peripheral edema. LOWER EXTREMITIES: warm, well-perfused. No calf tenderness. No peripheral edema. NEUROLOGICAL: Cranial nerves II-XII grossly intact. Normal Speech. PSYCHIATRIC: Cooperative. Good eye contact. Laboratory Results - last 24 hr 02/04/18 02/04/18 02/04/18 03:21 03:21 03:21 WBC 11.2 H D RBC 4.83 Hgb 10.4 L D Hct 34.2 D MCV 70.8 L MCH 21.6 L MCHC 30.5 L RDW 16.6 H Plt Count 201 MPV 8.6 Neutrophils % 79.2 Lymphocytes % 10.5 D Monocytes % 8.8 Eosinophils % 1.1 Basophils % 0.4 Hypochromia 2+ PT with INR INR PTT (Actin FS) VBG pH 7.33 POC VBG pCO2 62.9 H* POC VBG pO2 63.3 H D Mixed VBG HCO3 32.0 H Sodium 142 Potassium 4.4 Chloride 104 Carbon Dioxide 32 Anion Gap 6 L BUN 19 H Creatinine 1.3 H Creat Clearance w eGFR 42.07 Random Glucose 128 H Lactic Acid Calcium 8.5 Total Bilirubin 0.2 D AST 13 L ALT 13 Alkaline Phosphatase 92 Creatine Kinase 113 Troponin I < 0.02 B-Natriuretic Peptide Total Protein 7.8 Albumin 3.0 L Urine Color Urine Appearance Urine pH Ur Specific [place] Urine Protein Urine Glucose (UA) Urine Ketones Urine Blood Urine Nitrite Urine Bilirubin Urine Urobilinogen Ur Leukocyte Esterase Urine WBC (Auto) Urine RBC (Auto) Ur Epithelial Cells Urine Bacteria Hyaline Casts Urine Mucus 02/04/18 02/04/18 02/04/18 03:21 03:22 03:27 WBC RBC Hgb Hct MCV MCH MCHC RDW Plt Count MPV Neutrophils % Lymphocytes % Monocytes % Eosinophils % Basophils % Hypochromia PT with INR 12.50 INR 1.11 PTT (Actin FS) 33.7 VBG pH POC VBG pCO2 POC VBG pO2 Mixed VBG HCO3 Sodium Potassium Chloride Carbon Dioxide Anion Gap BUN Creatinine Creat Clearance w eGFR Random Glucose Lactic Acid 1.7 Calcium Total Bilirubin AST ALT Alkaline Phosphatase Creatine Kinase Troponin I B-Natriuretic Peptide 148.79 H Total Protein Albumin Urine Color Urine Appearance Urine pH Ur Specific [place] Urine Protein Urine Glucose (UA) Urine Ketones Urine Blood Urine Nitrite Urine Bilirubin Urine Urobilinogen Ur Leukocyte Esterase Urine WBC (Auto) Urine RBC (Auto) Ur Epithelial Cells Urine Bacteria Hyaline Casts Urine Mucus 02/04/18 06:11 WBC RBC Hgb Hct MCV MCH MCHC RDW Plt Count MPV Neutrophils % Lymphocytes % Monocytes % Eosinophils % Basophils % Hypochromia PT with INR INR PTT (Actin FS) VBG pH POC VBG pCO2 POC VBG pO2 Mixed VBG HCO3 Sodium Potassium Chloride Carbon Dioxide Anion Gap BUN Creatinine Creat Clearance w eGFR Random Glucose Lactic Acid Calcium Total Bilirubin AST ALT Alkaline Phosphatase Creatine Kinase Troponin I B-Natriuretic Peptide Total Protein Albumin Urine Color Yellow Urine Appearance Slcloudy Urine pH 5.0 Ur Specific [place] 1.018 Urine Protein 2+ H Urine Glucose (UA) Negative Urine Ketones Negative Urine Blood 1+ H Urine Nitrite Negative Urine Bilirubin Negative Urine Urobilinogen Negative Ur Leukocyte Esterase 3+ H D Urine WBC (Auto) 14 Urine RBC (Auto) 11 Ur Epithelial Cells Moderate Urine Bacteria Rare Hyaline Casts 3 Urine Mucus Rare EKG: Sinus Tachycardia ASSESSMENT/PLAN: 57F with COPD on home O2 presents to the hospital with shortness of breath found to be in exacerbation of COPD. Acute exacerbation of COPD: possible due to medication non compliance Admit to inpatient telemetry Pulmonology consult start symbicort BID as we do not have high dose Advair which patient is on at home start spiriva as patient is on Incruse at home Medrol 60mg q8h Ceftriaxone 1gm daily to start tomorrow as patient already received azithromycin /ceftriaxone in ED albuterol PRN restart home 3L/M O2 HTN: restart HCTZ 25mg po daily Anxiety: restart Vistiril Iron Deficiency Anemia: restart ferrous sulfate 325mg po daily restart folic acid 1mg po daily Abdominal Distention: Improved KUB FEN: no IVF no electrolyte issues Sodium controlled diet PPx: HSQ/SCDs no GI PPx indicated no PT consult as patient is ambulatory case discussed with attending Dr. Barnett Visit type - Emergency Visit Emergency Visit: Yes ED Registration Date: 02/04/18 Care time: The patient presented to the Emergency Department on the above date and was hospitalized for further evaluation of their emergent condition. - New Patient This patient is new to me today: Yes Date on this admission: 02/04/18 - Critical Care Critical Care patient: No Hospitalist Screening - Colonoscopy Questionnaire Colonoscopy Questionnaire: Colonoscopy Questionnaire - Patient: 50 - 75 years old and never had a screening colonoscopy: Yes History of colon or rectal polyps, or CA: No History of IBD, Crohn's disease or UC: No History of abdominal radiation therapy as a child: No - Relative: 1 with colon or rectal CA, or polyps at age 60 or younger: No Colon or rectal CA diagnosed at age 45 or younger: No Multiple relatives with colon or rectal CA: No (Patient has fecal DNA testing kit at home has not done it yet. she was counselled on the importance getting it or the colonoscopy done) - Outcome: Screening Result: Positive Screen
[2018-02-04] MEDS ORDERED: methylPREDNISolone NA SUCC 125 MG/2 ML VIAL IVPUSH ONE (09:12)
[2018-02-04] MEDS ORDERED: HYDROCHLOROTHIAZIDE 25 MG TABLET (FP) ONE (09:42)
[2018-02-04] MEDS ORDERED: ALBUTEROL SO4 0.083% IH SOL 2.5 MG/3 ML VIAL.NEB. NEB ONE (09:42)
[2018-02-04] MEDS ORDERED: methylPREDNISolone NA SUCC 125 MG/2 ML VIAL ONE (09:43)
[2018-02-04] MEDS ORDERED: FOLIC ACID 1 MG TABLET (FP) ONE (09:43)
[2018-02-04] MEDS ORDERED: FERROUS SO4 325 MG TABLET (FP) ONE (09:43)
[2018-02-04] MEDS: FOLIC ACID 1 MG TABLET (FP) PO SCH (09:53)
[2018-02-04] MEDS: FERROUS SO4 325 MG TABLET (FP) PO SCH (09:53)
[2018-02-04] MEDS: ALBUTEROL SO4 0.083% IH SOL 2.5 MG/3 ML VIAL.NEB. NEB PRN ×2 (09:53→17:07)
[2018-02-04] MEDS ORDERED: methylPREDNISolone NA SUCC 40 MG/1 ML VIAL IVPUSH SCH (10:00)
[2018-02-04] MEDS ORDERED: HYDROCHLOROTHIAZIDE 25 MG TABLET (FP) PO SCH (10:00)
--- NOTE | 2018-02-04 10:30 | EKG ---
Test Reason : Blood Pressure : / mmHG Vent. Rate : 150 BPM Atrial Rate : 150 BPM P-R Int : 128 ms QRS Dur : 066 ms QT Int : 258 ms P-R-T Axes : 085 079 078 degrees QTc Int : 407 ms POOR DATA QUALITY, INTERPRETATION MAY BE ADVERSELY AFFECTED SINUS TACHYCARDIA BIATRIAL ENLARGEMENT PULMONARY DISEASE PATTERN ABNORMAL ECG WHEN COMPARED WITH ECG OF 20-JAN-2018 16:14, VENT. RATE HAS INCREASED BY 61 BPM Confirmed by MADELAINE PANIAGUA MD ([id number]) on 02/04/2018 10:30:08 AM Referred By: Confirmed By:MADELAINE PANIAGUA MD
[2018-02-04] MEDS ORDERED: PT OWN MED DRAWER 7, Y5N ONE (10:36)
[2018-02-04] MEDS: BUDESONIDE/FORMETEROL FUMARATE 160/4.5 mcg INHALER IH SCH ×3 (10:37→22:30)
[2018-02-04] MEDS: hydrOXYzine PAMOATE 25 MG CAPSULE (FP) PO SCH (10:38)
--- NOTE | 2018-02-04 11:03 | PN ---
Teaching Attending Note Name of Resident: Gerardo Porter ATTENDING PHYSICIAN STATEMENT I saw and evaluated the patient. I reviewed the resident's note and discussed the case with the resident. I agree with the resident's findings and plan as documented. SUBJECTIVE:57yo F wtih PMH COPD on 3L NC at home, HTN and iron deficiency anemia presented to the Er with SOB x1 day. assoc with productive cough of yellow sputum and chest discomfort. did not improve at home with nebulizer treatments which prompted her to come to the hospital. claims complaint with home oxygen and inhlaers. denies CP, fever, chills, cough, N/V/C/D OBJECTIVE: Last Vital Signs Temp Pulse Resp BP Pulse Ox 98.6 F 94 H 16 140/97 97 02/04/18 05:12 02/04/18 08:41 02/04/18 08:41 02/04/18 08:41 02/04/18 08:41 General NAD, tachypnic CV S1 S2 RRR no murmur/rub/gallop lungs diffuse wheezing, poor inspiratory effort Abdomen soft NT/ND Extremities no pedal edema ASSESSMENT AND PLAN: 57yo F wtih PMH COPD on 2L NC at home, HTN and iron deficiency anemia presented to the Er with SOB x1 month 1. Acute COPD exacerbation- Medicine admission. start solumedrol 60mg Q8H, Ceftriaxone, nebs RTC and Prn, symbicort, spiriva. pulmonary consult. encouraged pt importance of inhaler compliance. supplemental oxygen 2. RAOUL- likely pre-renal vs medication induced. will hold HCTZ, renal dose all medication. avoid nephrotoxic medication 3. SIRS- Tm 101.2 with tachycardia and tacypnea. likely inflammatory reaction from COPD exacerbation although there is a questionable infiltrate on CXR. +UA but is not symptomatic. will f/u Cx 4. lactic acidosis- due to hypoxia vs inaccurate reading as initial one was negative. received IVF in the ED. will repeat 5. abdominal distention-concern may be distended although does not appear on my exam. AXR pending. states she does not feel distended. has BM x2/day 6. HTN- controlled. will monitor while holding HCTZ 7. iron def anemia- Hgb stable. cont iron supplements. no indication for txn at this time. 8. DVT ppx- hep sq
[2018-02-04] MEDS ORDERED: SODIUM CHLORIDE 1,000 ML IV STA (11:04)
[2018-02-04] MEDS: TIOTROPIUM BROMIDE 18 MCG CAPSULES IH SCH (11:14)
--- NOTE | 2018-02-04 12:23 | CON.PULM ---
Consult Consult Specialty:: PULMONARY Referred by:: ELY Reason for Consultation:: SOB - History of Present Illness Chief Complaint: SOB History of Present Illness: 57 AA FEMALE WITH O2 DEP COPD QUIT SMOKING 3 YEARS AGO. IS PRESENTLY LIVING WITH A FRIEND THAT HAS A DOG. HAS BEEN TO OUR ER THREE TIMES IN PAST 2 MONTHS. THIS IS HER 2ND ADMISSION FOR A /E COPD. PT STATES THAT WHILE WATCHING TV SHE COULDN'T CATCH HER BREATH. SHE USED 2 NEBS AND STARTED O2 VIA N/C SHE WAS STILL UNABLE TO CATCH HER BREATH AND HENCE CAME TO ER. 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 No: AFIB, CAD, CHF Pulmonary: Yes: Bronchitis, COPD, O2 Dependent Gastrointestinal: No: Ascites Hepatobiliary: Yes: Other (Fatty liver) Renal/: No: Renal Failure Reproductive: Yes: Postmenopausal ...LMP: 05/18/11 ...: No Heme/Onc: Yes: Anemia - Past Surgical History Past Surgical History: Yes: None - Alcohol/Substance Use Hx Alcohol Use: No History of Substance Use: reports: None - Smoking History Smoking history: Former smoker Have you smoked in the past 12 months: No Aproximately how many cigarettes per day: 0 If you are a former smoker, when did you quit?: 2014 - Social History Usual Living Arrangement: Other (WITH FRIEND) ADL: Independent Place of : [facility] History of Recent Travel: No Home Medications - Allergies Allergies/Adverse Reactions: Allergies Allergy/AdvReac Type Severity Reaction Status Date / Time black walnut Allergy Severe Hives Verified 02/04/18 03:22 sulfamethoxazole Allergy Severe Swelling Verified 02/04/18 03:22 [From Bactrim] trimethoprim [From Bactrim] Allergy Severe Swelling Verified 02/04/18 03:22 PECAN Allergy Severe Hives Uncoded 02/04/18 03:22 - Home Medications Home Medications: Ambulatory Orders Albuterol 0.083% Nebulizer Destiny [Ventolin 0.083% Nebulizer Soln -] 1 neb NEB Q4H 12/05/17 Cholecalciferol (Vitamin D3) [Vitamin D -] 50,000 unit PO WEEKLY 12/05/17 Hydrochlorothiazide 25 mg PO DAILY 12/05/17 Hydroxyzine Pamoate 25 mg PO DAILY 12/05/17 Albuterol Sulfate Inhaler - [Ventolin HFA Inhaler -] 1 - 2 inh PO Q4H PRN #1 inhaler 01/20/18 Ferrous Sulfate [Feosol] 325 mg PO DAILY 02/04/18 Fluticasone/Salmeterol [Advair 250-50 Diskus] 02/04/18 Folic Acid 1 mg PO DAILY 02/04/18 Umeclidinium [place] [Incruse Ellipta] 62.5 mcg IH DAILY 02/04/18 Family Disease History - Family Disease History Family History: Unremarkable Review of Systems - Review of Systems Constitutional: reports: Fever Eyes: denies: Blurred Vision HENT: denies: Difficult Swallowing Neck: denies: Decreased ROM Cardiovascular: reports: Chest Pain, Shortness of Breath Respiratory: reports: Cough, Exercise Intolerance, SOB, SOB on Exertion, Wheezing. denies: Hemoptysis Gastrointestinal: denies: Bloating Genitourinary: denies: Burning Musculoskeletal: reports: No Symptoms Endocrine: reports: No Symptoms Physical Exam Vital Sings: Vital Signs Temperature 97.9 F 02/04/18 11:13 Pulse Rate 104 H 02/04/18 11:13 Respiratory Rate 16 02/04/18 11:13 Blood Pressure 131/86 02/04/18 11:13 O2 Sat by Pulse Oximetry (%) 98 02/04/18 11:13 Constitutional: Yes: Anxious Eyes: Yes: EOM Intact HENT: Yes: Normocephalic Neck: Yes: Trachea Midline Cardiovascular: Yes: Regular Rate and Rhythm Respiratory: Yes: Diminished Gastrointestinal: Yes: Normal Bowel Sounds Edema: No Labs: CBC, BMP 02/04/18 03:21 02/04/18 03:21 REST REVIEWED Imaging - Results Chest X-ray: Report Reviewed, Image Reviewed X-ray: Report Reviewed Problem List - Problems (1) COPD exacerbation Code(s): J44.1 - CHRONIC OBSTRUCTIVE PULMONARY DISEASE W (ACUTE) EXACERBATION (2) Acute bronchitis Code(s): J20.9 - ACUTE BRONCHITIS, UNSPECIFIED Qualifiers: Bronchitis organism: unspecified organism Qualified Code(s): J20.9 - Acute bronchitis, unspecified (3) Acute on chronic respiratory failure with hypoxia and hypercapnia Code(s): J96.21 - ACUTE AND CHRONIC RESPIRATORY FAILURE WITH HYPOXIA; J96.22 - ACUTE AND CHRONIC RESPIRATORY FAILURE WITH HYPERCAPNIA (4) Chest pain Code(s): R07.9 - CHEST PAIN, UNSPECIFIED Assessment/Plan A/E COPD O2 DEP HYPERCAPNEIC RESP FAILURE LIKELY ACUTE BRONCHITIS/ELEVATED LACTIC ACID HTN PANCULTURE CONTINUE O2/TAMIR/LABA/LAMA/ICS/STEROIDS/ANTIBIOTICS BP CONTROL DVT PROPHYLAXSIS WILL FOLLOW Lamonte WARNER MD
[2018-02-04] MEDS: HEPARIN NA (PORCINE) 5,000 UNITS/ML 1ML VIAL SQ SCH ×2 (16:03→22:27)
[2018-02-04] MEDS: methylPREDNISolone NA SUCC 40 MG/1 ML VIAL IVPUSH SCH ×2 (16:10→22:27)
[2018-02-04] MEDS: ALBUTEROL SO4 2.5/IPRATROPIUM 0.5 INH SOL 3 ML VIAL.NEB. NEB SCH (20:54)
[2018-02-05] MEDS: methylPREDNISolone NA SUCC 40 MG/1 ML VIAL IVPUSH SCH ×3 (06:18→17:57)
[2018-02-05] MEDS: HEPARIN NA (PORCINE) 5,000 UNITS/ML 1ML VIAL SQ SCH ×3 (06:18→21:21)
[2018-02-05] MEDS: ALBUTEROL SO4 0.083% IH SOL 2.5 MG/3 ML VIAL.NEB. NEB PRN (06:25)
[2018-02-05 07:06] LABS: HEMATOCRIT 32.5 % (32.4-45.2); MCH 22.3 pg (25.7-33.7); MCHC 30.9 g/dl (32.0-36.0); MEAN CELL VOLUME 72.3 fl (80-96); PLATELET COUNT 204 K/MM3 (134-434); RBC 4.49 M/mm3 (3.60-5.2); RDW 16.6 % (11.6-15.6); WHITE BLOOD COUNT 12.8 K/mm3 (4.0-10.0)
[2018-02-05 07:51] LABS: CHLORIDE 103 mmol/L (98-107); POTASSIUM 4.4 mmol/L (3.5-5.1); SODIUM 141 mmol/L (136-145)
[2018-02-05 08:03] LABS: ANION GAP 7 (8-16); BLOOD UREA NITROGEN 24 mg/dL (7-18); CALCIUM 9.1 mg/dL (8.5-10.1); CO2 31 mmol/L (21-32); CREATININE 1.2 mg/dL (0.55-1.02); GLUCOSE,RANDOM 118 mg/dL (74-106); MAGNESIUM 2.1 mg/dL (1.8-2.4); PHOSPHOROUS 3.8 mg/dL (2.5-4.9)
[2018-02-05] MEDS ORDERED: cefTRIAXone SODIUM 1 GM VIAL ONE (08:07)
[2018-02-05] MEDS ORDERED: DEXTROSE 5%-WATER - 50 ML IVPB ONE (08:07)
[2018-02-05] MEDS: ALBUTEROL SO4 2.5/IPRATROPIUM 0.5 INH SOL 3 ML VIAL.NEB. NEB SCH ×4 (08:37→19:35)
--- NOTE | 2018-02-05 09:08 | PN ---
Progress Note (short form) - Note Progress Note: states breathing has improved. continue to have productive cough of yellow sputum. c/o frontal ROJAS that has been increasing in frequency for the past 3 months. assoc with photophobia. occurring > 3x/week, no deficits, tinnitus, visual changes, auras, or worse with movement and does not wake her up from sleep. alleviates with tylenol. denies CP, SOB, fever, chills, N/V/C/D. Current Medications Generic Name Dose Route Start Last Admin Trade Name Freq PRN Reason Stop Dose Admin Albuterol Sulfate 1 amp 02/04/18 08:24 02/05/18 06:25 Ventolin 0.083% Nebulizer Soln - NEB 1 amp Q4H PRN Administration SOB/Wheezing Albuterol/Ipratropium 1 amp 02/04/18 20:00 02/05/18 08:37 Duoneb - NEB 1 amp RQID ZACHARY Administration Budesonide/Formoterol Fumarate 2 puff 02/04/18 10:00 02/04/18 22:30 Symbicort 160/4.5mcg - IH Not Given BID ZACHARY Ferrous Sulfate 325 mg 02/04/18 10:00 02/04/18 09:53 Feosol - PO 325 mg DAILY ZACHARY Administration Folic Acid 1 mg 02/04/18 10:00 02/04/18 09:53 Folic Acid - PO 1 mg DAILY ZACHARY Administration Heparin Sodium (Porcine) 5,000 unit 02/04/18 14:00 02/05/18 06:18 Heparin - SQ 5,000 unit TID ZACHARY Administration Hydroxyzine Pamoate 25 mg 02/04/18 10:00 02/04/18 10:38 Vistaril - PO 25 mg DAILY ZACHARY Administration Ceftriaxone Sodium 1 gm/ 50 mls @ 100 mls/hr 02/05/18 10:00 Dextrose IVPB DAILY ZACHARY Methylprednisolone Sodium Succinate 60 mg 02/04/18 14:00 02/05/18 06:18 Solu-Medrol - IVPUSH 60 mg Q8H ZACHARY Administration Tiotropium [place] 1 puff 02/04/18 10:00 02/04/18 11:14 Spiriva - IH 1 puff DAILY ZACHARY Administration Last Vital Signs Temp Pulse Resp BP Pulse Ox 97.6 F 85 20 120/69 92 L 02/05/18 05:00 02/05/18 05:00 02/05/18 05:00 02/05/18 05:00 02/04/18 20:57 General NAD, HEENT no nystagmus, PERRL CV S1 S2 RRR no murmur/rub/gallop lungs improved inspiratory effort. some wheezing Abdomen soft NT/ND Extremities no pedal edema CBCD WBC 12.8 K/mm3 (4.0-10.0) H 02/05/18 06:00 RBC 4.49 M/mm3 (3.60-5.2) 02/05/18 06:00 Hgb 10.0 GM/dL (10.7-15.3) L 02/05/18 06:00 Hct 32.5 % (32.4-45.2) 02/05/18 06:00 MCV 72.3 fl (80-96) L 02/05/18 06:00 MCHC 30.9 g/dl (32.0-36.0) L 02/05/18 06:00 RDW 16.6 % (11.6-15.6) H 02/05/18 06:00 Plt Count 204 K/MM3 (134-434) 02/05/18 06:00 MPV 9.0 fl (7.5-11.1) 02/05/18 06:00 CMP Sodium 141 mmol/L (136-145) 02/05/18 06:00 Potassium 4.4 mmol/L (3.5-5.1) 02/05/18 06:00 Chloride 103 mmol/L (98-107) 02/05/18 06:00 Carbon Dioxide 31 mmol/L (21-32) 02/05/18 06:00 Anion Gap 7 (8-16) L 02/05/18 06:00 BUN 24 mg/dL (7-18) H 02/05/18 06:00 Creatinine 1.2 mg/dL (0.55-1.02) H 02/05/18 06:00 Creat Clearance w eGFR 42.07 (>60) 02/04/18 03:21 Calcium 9.1 mg/dL (8.5-10.1) 02/05/18 06:00 Total Bilirubin 0.2 mg/dL (0.2-1.0) D 02/04/18 03:21 AST 13 U/L (15-37) L 02/04/18 03:21 ALT 13 U/L (12-78) 02/04/18 03:21 Alkaline Phosphatase 92 U/L (45-117) 02/04/18 03:21 Total Protein 7.8 g/dl (6.4-8.2) 02/04/18 03:21 Albumin 3.0 g/dl (3.4-5.0) L 02/04/18 03:21 ASSESSMENT AND PLAN: 57yo F wtih PMH COPD on 2L NC at home, HTN and iron deficiency anemia presented to the Er with SOB x1 month 1. Acute COPD exacerbation-clinically improved. saturating well on home O2. requests to decrease solumedrol dosing. expressed should slowly decrease but she states that she has increased weight gain from steroid use. will decrease to 40mg Q8H, Ceftriaxone day 2, nebs, inhalers. pulmonary on board. 2. ROJAS- appears to be tension like but concern raised given change in frequency lately. will obtain Head CT. if negative can start prophylactic medication with amitriptyline. explained will take some time to reduce ROJAS frequency. will need outpatient neuro follow up 3. RAOUL- likely pre-renal vs medication induced. improved, renal dose all medication. avoid nephrotoxic medication 4. SIRS-afebrile. leukocytosis likely from steroid use. 5. lactic acidosis- due to hypoxia vs inaccurate reading as initial one was negative. trended down 6. abdominal distention-AXR showing some retained stool. no ileus or obstruction , miralax to continue regular BM. 7. HTN- controlled. will monitor while holding HCTZ 8. iron def anemia- Hgb stable. cont iron supplements. no indication for txn at this time. 9. DVT ppx- hep sq Visit type - Emergency Visit Emergency Visit: Yes ED Registration Date: 02/04/18 Care time: The patient presented to the Emergency Department on the above date and was hospitalized for further evaluation of their emergent condition. - New Patient This patient is new to me today: No - Critical Care Critical Care patient: No - Discharge Referral Referred to [facility] Med P.C.: No
[2018-02-05] MEDS: CEFTRIAXONE 1 GM in DEXTROSE 5%-WATER - 50 ML IVPB SCH (10:17)
[2018-02-05] MEDS: TIOTROPIUM BROMIDE 18 MCG CAPSULES IH SCH (10:17)
[2018-02-05] MEDS: FOLIC ACID 1 MG TABLET (FP) PO SCH (10:18)
[2018-02-05] MEDS: FERROUS SO4 325 MG TABLET (FP) PO SCH (10:18)
[2018-02-05] MEDS: BUDESONIDE/FORMETEROL FUMARATE 160/4.5 mcg INHALER IH SCH ×2 (10:18→21:21)
[2018-02-05] MEDS: hydrOXYzine PAMOATE 25 MG CAPSULE (FP) PO SCH (10:19)
[2018-02-05] MEDS: POLYETHYLENE GLYCOL 3350 119 GM BTL PO SCH (12:05)
--- NOTE | 2018-02-05 12:28 | PN ---
Progress Note (short form) - Note Progress Note: PULMONARY AWAKE/DYSPNEIC AT REST EATING LUNCH VSS/AFEBRILE ANICTERIC DIMINISHED BREATH SOUNDS S1S2 BS+ NO EDEMA LABS/MEDS/NOTES/IMAGES REVIEWED A/E COPD O2 DEP HYPERCAPNEIC RESP FAILURE LIKELY ACUTE BRONCHITIS/ELEVATED LACTIC ACID HTN PANCULTURE CONTINUE O2/TAMIR/LABA/LAMA/ICS/STEROIDS/ANTIBIOTICS BP CONTROL DVT PROPHYLAXSIS CONTINUE TELE MONITORING Lamonte WARNER MD Problem List - Problems (1) COPD exacerbation Code(s): J44.1 - CHRONIC OBSTRUCTIVE PULMONARY DISEASE W (ACUTE) EXACERBATION (2) Acute bronchitis Code(s): J20.9 - ACUTE BRONCHITIS, UNSPECIFIED Qualifiers: Bronchitis organism: unspecified organism Qualified Code(s): J20.9 - Acute bronchitis, unspecified (3) Acute on chronic respiratory failure with hypoxia and hypercapnia Code(s): J96.21 - ACUTE AND CHRONIC RESPIRATORY FAILURE WITH HYPOXIA; J96.22 - ACUTE AND CHRONIC RESPIRATORY FAILURE WITH HYPERCAPNIA (4) Chest pain Code(s): R07.9 - CHEST PAIN, UNSPECIFIED
[2018-02-06] MEDS: ALBUTEROL SO4 0.083% IH SOL 2.5 MG/3 ML VIAL.NEB. NEB PRN (00:15)
[2018-02-06] MEDS: methylPREDNISolone NA SUCC 40 MG/1 ML VIAL IVPUSH SCH ×4 (03:08→21:45)
[2018-02-06] MEDS: HEPARIN NA (PORCINE) 5,000 UNITS/ML 1ML VIAL SQ SCH ×3 (05:48→21:45)
[2018-02-06 07:08] LABS: ANION GAP 4 (8-16); BLOOD UREA NITROGEN 30 mg/dL (7-18); CALCIUM 8.7 mg/dL (8.5-10.1); CHLORIDE 105 mmol/L (98-107); CO2 34 mmol/L (21-32); CREATININE 1.4 mg/dL (0.55-1.02); GLUCOSE,RANDOM 129 mg/dL (74-106); POTASSIUM 4.5 mmol/L (3.5-5.1); SODIUM 143 mmol/L (136-145)
[2018-02-06] MEDS: ALBUTEROL SO4 2.5/IPRATROPIUM 0.5 INH SOL 3 ML VIAL.NEB. NEB SCH ×5 (07:54→21:21)
[2018-02-06] MEDS ORDERED: PT OWN MED DRAWER 7, Y5N ONE (09:26)
[2018-02-06] MEDS ORDERED: cefTRIAXone SODIUM 1 GM VIAL ONE (09:26)
[2018-02-06] MEDS ORDERED: DEXTROSE 5%-WATER - 50 ML IVPB ONE (09:27)
[2018-02-06] MEDS: FERROUS SO4 325 MG TABLET (FP) PO SCH (09:43)
[2018-02-06] MEDS: TIOTROPIUM BROMIDE 18 MCG CAPSULES IH SCH (09:44)
[2018-02-06] MEDS: FOLIC ACID 1 MG TABLET (FP) PO SCH (09:44)
[2018-02-06] MEDS: CEFTRIAXONE 1 GM in DEXTROSE 5%-WATER - 50 ML IVPB SCH (09:44)
[2018-02-06] MEDS: POLYETHYLENE GLYCOL 3350 119 GM BTL PO SCH (09:44)
[2018-02-06] MEDS: hydrOXYzine PAMOATE 25 MG CAPSULE (FP) PO SCH (09:45)
[2018-02-06] MEDS: BUDESONIDE/FORMETEROL FUMARATE 160/4.5 mcg INHALER IH SCH ×2 (10:00→21:14)
--- NOTE | 2018-02-06 11:40 | PN ---
Physical Exam: SUBJECTIVE: Patient seen and examined. She is still complaining of wheezing. OBJECTIVE: Vital Signs Period Temp Pulse Resp BP Sys/Echevarria Pulse Ox Last 24 Hr 98.1 F-98.5 F 95-107 20-20 118-151/70-87 94 GENERAL: The patient is awake, alert, and fully oriented, in no acute distress. HEAD: Normal with no signs of trauma. EYES: extraocular movements intact, sclera anicteric ENT: moist mucous membranes. LUNGS: Breath sounds equal, wheezing bilaterally, no crackles, no accessory muscle use. HEART: Regular rate and rhythm, S1, S2 without murmur, rub or gallop. ABDOMEN: Soft, nontender, nondistended, normoactive bowel sounds, no guarding, no rebound, no hepatosplenomegaly, no masses. EXTREMITIES: no edema. PSYCH: Normal mood, normal affect. SKIN: Warm, dry, normal turgor, no rashes. Laboratory Results - last 24 hr 02/06/18 06:00 Sodium 143 Potassium 4.5 Chloride 105 Carbon Dioxide 34 H Anion Gap 4 L BUN 30 H Creatinine 1.4 H Random Glucose 129 H Calcium 8.7 Active Medications Generic Name Dose Route Start Last Admin Trade Name Freq PRN Reason Stop Dose Admin Albuterol Sulfate 1 amp 02/04/18 08:24 02/06/18 00:15 Ventolin 0.083% Nebulizer Soln - NEB 1 amp Q4H PRN Administration SOB/Wheezing Albuterol/Ipratropium 1 amp 02/04/18 20:00 02/06/18 07:54 Duoneb - NEB 1 amp RQID ZACHARY Administration Budesonide/Formoterol Fumarate 2 puff 02/04/18 10:00 02/05/18 21:21 Symbicort 160/4.5mcg - IH Not Given BID ZACHARY Diltiazem HCl 30 mg 02/06/18 14:00 Cardizem - PO TID ZACHARY Ferrous Sulfate 325 mg 02/04/18 10:00 02/06/18 09:43 Feosol - PO 325 mg DAILY ZACHARY Administration Folic Acid 1 mg 02/04/18 10:00 02/06/18 09:44 Folic Acid - PO 1 mg DAILY ZACHARY Administration Heparin Sodium (Porcine) 5,000 unit 02/04/18 14:00 02/06/18 05:48 Heparin - SQ 5,000 unit TID ZACHARY Administration Hydroxyzine Pamoate 25 mg 02/04/18 10:00 02/06/18 09:45 Vistaril - PO 25 mg DAILY ZACHARY Administration Ceftriaxone Sodium 1 gm/ 50 mls @ 100 mls/hr 02/05/18 10:00 02/06/18 09:44 Dextrose IVPB 100 mls/hr DAILY ZACHARY Administration Methylprednisolone Sodium Succinate 40 mg 02/05/18 09:47 02/06/18 09:43 Solu-Medrol - IVPUSH 40 mg Q8H ZACHARY Administration Polyethylene Glycol 17 gm 02/05/18 11:15 02/06/18 09:44 Miralax (For Daily Use) - PO 17 gm DAILY ZACHARY Administration Tiotropium [place] 1 puff 02/04/18 10:00 02/06/18 09:44 Spiriva - IH 1 puff DAILY ZACHARY Administration ASSESSMENT/PLAN: 57 yo female wtih PMH COPD on 2L NC at home, HTN and iron deficiency anemia presented with SOB and is admitted for bronchitis and COPD exacerbation. Acute COPD exacerbation: clinically improving saturating 94 on 4 L continue Solumedrol dosing 40mg Q8H, Ceftriaxone day 3 continue Albuterol, nebs, Spiriva f/u Pulm recommendations Tachycardia: -will start Cardizem 30 PO TID -no acute changes on monitor Headache: -continue Amitryptiline RAOUL -likely prerenal, improved -avoid nephrotoxic substances Lactic acidosis due to hypoxia vs inaccurate reading as initial one was negative. resolved Constipation: -continue Miralax HTN controlled Iron deficiency anemia: cont iron supplements DVT ppx hep sq Disposition: continue to [facility] on tele Problem List - Problems (1) COPD exacerbation Code(s): J44.1 - CHRONIC OBSTRUCTIVE PULMONARY DISEASE W (ACUTE) EXACERBATION (2) Acute bronchitis Code(s): J20.9 - ACUTE BRONCHITIS, UNSPECIFIED Qualifiers: Bronchitis organism: unspecified organism Qualified Code(s): J20.9 - Acute bronchitis, unspecified (3) Lactic acidosis Code(s): E87.2 - ACIDOSIS (4) Shortness of breath Code(s): R06.02 - SHORTNESS OF BREATH (5) Supplemental oxygen dependent Code(s): Z99.81 - DEPENDENCE ON SUPPLEMENTAL OXYGEN (6) Hypertension Code(s): I10 - ESSENTIAL (PRIMARY) HYPERTENSION Qualifiers: Hypertension type: essential hypertension Qualified Code(s): I10 - Essential (primary) hypertension Visit type - Emergency Visit Emergency Visit: Yes ED Registration Date: 02/04/18 Care time: The patient presented to the Emergency Department on the above date and was hospitalized for further evaluation of their emergent condition. - New Patient This patient is new to me today: Yes Date on this admission: 02/06/18 - Critical Care Critical Care patient: No - Discharge Referral Referred to [facility] Med P.C.: No
--- NOTE | 2018-02-06 13:22 | PN ---
Progress Note (short form) - Note Progress Note: PULMONARY AWAKE/DYSPNEIC AT REST VSS/AFEBRILE ANICTERIC DIMINISHED BREATH SOUNDS/RHONCHI DIFFUSE S1S2 BS+ NO EDEMA LABS/MEDS/NOTES/IMAGES REVIEWED A/E COPD O2 DEP HYPERCAPNEIC RESP FAILURE LIKELY ACUTE BRONCHITIS/ELEVATED LACTIC ACID HTN CONTINUE O2/TAMIR/LABA/LAMA/ICS/STEROIDS/ANTIBIOTICS ECHO/CT CHEST SINGULAIR BP CONTROL DVT PROPHYLAXSIS CONTINUE TELE MONITORING Lamonte WARNER MD Problem List - Problems (1) COPD exacerbation Code(s): J44.1 - CHRONIC OBSTRUCTIVE PULMONARY DISEASE W (ACUTE) EXACERBATION (2) Acute bronchitis Code(s): J20.9 - ACUTE BRONCHITIS, UNSPECIFIED Qualifiers: Bronchitis organism: unspecified organism Qualified Code(s): J20.9 - Acute bronchitis, unspecified (3) Acute on chronic respiratory failure with hypoxia and hypercapnia Code(s): J96.21 - ACUTE AND CHRONIC RESPIRATORY FAILURE WITH HYPOXIA; J96.22 - ACUTE AND CHRONIC RESPIRATORY FAILURE WITH HYPERCAPNIA (4) Chest pain Code(s): R07.9 - CHEST PAIN, UNSPECIFIED
--- NOTE | 2018-02-06 13:29 | PN ---
Teaching Attending Note Name of Resident: Estelita Cerrato ATTENDING PHYSICIAN STATEMENT I saw and evaluated the patient. I reviewed the resident's note and discussed the case with the resident. I agree with the resident's findings and plan as documented. SUBJECTIVE: OBJECTIVE: ASSESSMENT AND PLAN: this is a 57yo F wtih PMH COPD on 2L NC at home, HTN and iron deficiency anemia presented to the Er with SOB x1 month 1. Acute COPD exacerbation-clinically improved. saturating well on home O2. - c/w methylprednisone 40mg q8hrs c/w ceftriaxone day 3, - c/w nebs, inhalers. c/w pulmonary recommendation 2. Tension Headache - start amitriptyline. 3. RAOUL- likely pre-renal vs medication induced. improved, renal dose all medication. avoid nephrotoxic medication 4. SIRS- resolving patient is afebrile. leukocytosis likely from steroid use. 5. lactic acidosis resolving - due to hypoxia vs inaccurate reading as initial one was negative. 6. abdominal distention-AXR showing some retained stool. no ileus or obstruction , miralax to continue regular BM. 7. HTN- controlled. will monitor while holding HCTZ 8. iron def anemia- Hgb stable. cont iron supplements. no indication for txn at this time. 9. DVT ppx- hep sq
[2018-02-06] MEDS: dilTIAZem HCL 30 MG TABLET (FP) PO SCH ×2 (15:05→21:45)
[2018-02-06] MEDS: MONTELUKAST NA 10 MG TABLET PO SCH (21:45)
[2018-02-07] MEDS: ALBUTEROL SO4 2.5/IPRATROPIUM 0.5 INH SOL 3 ML VIAL.NEB. NEB SCH ×3 (02:00→10:11)
[2018-02-07] MEDS: methylPREDNISolone NA SUCC 40 MG/1 ML VIAL IVPUSH SCH ×4 (03:30→21:38)
[2018-02-07] MEDS: HEPARIN NA (PORCINE) 5,000 UNITS/ML 1ML VIAL SQ SCH ×3 (06:03→21:38)
[2018-02-07] MEDS: dilTIAZem HCL 30 MG TABLET (FP) PO SCH ×3 (06:03→21:38)
[2018-02-07 06:47] LABS: HEMATOCRIT 29.5 % (32.4-45.2); HEMOGLOBIN 9.2 GM/dL (10.7-15.3); MCH 22.1 pg (25.7-33.7); MCHC 31.1 g/dl (32.0-36.0); MEAN CELL VOLUME 70.9 fl (80-96); PLATELET COUNT 179 K/MM3 (134-434); RBC 4.16 M/mm3 (3.60-5.2); RDW 16.4 % (11.6-15.6); WHITE BLOOD COUNT 11.3 K/mm3 (4.0-10.0)
[2018-02-07 07:15] LABS: CHLORIDE 104 mmol/L (98-107); POTASSIUM 4.5 mmol/L (3.5-5.1); SODIUM 142 mmol/L (136-145)
[2018-02-07 07:31] LABS: ALBUMIN 2.6 g/dl (3.4-5.0); ALK PHOS 70 U/L (45-117); ANION GAP 7 (8-16); BILIRUBIN,TOTAL 0.2 mg/dL (0.2-1.0); BLOOD UREA NITROGEN 32 mg/dL (7-18); CALCIUM 8.6 mg/dL (8.5-10.1); CO2 31 mmol/L (21-32); CREATININE 1.3 mg/dL (0.55-1.02); GLUCOSE,RANDOM 125 mg/dL (74-106); SGOT/AST 12 U/L (15-37); SGPT/ALT 15 U/L (12-78); TOT PROT 6.8 g/dl (6.4-8.2)
[2018-02-07] MEDS ORDERED: cefTRIAXone SODIUM 1 GM VIAL ONE (10:22)
[2018-02-07] MEDS ORDERED: DEXTROSE 5%-WATER - 50 ML IVPB ONE (10:22)
[2018-02-07] MEDS: FOLIC ACID 1 MG TABLET (FP) PO SCH (10:26)
[2018-02-07] MEDS: CEFTRIAXONE 1 GM in DEXTROSE 5%-WATER - 50 ML IVPB SCH (10:26)
[2018-02-07] MEDS: FERROUS SO4 325 MG TABLET (FP) PO SCH (10:26)
[2018-02-07] MEDS: BUDESONIDE/FORMETEROL FUMARATE 160/4.5 mcg INHALER IH SCH ×2 (10:26→21:44)
[2018-02-07] MEDS: POLYETHYLENE GLYCOL 3350 119 GM BTL PO SCH (10:26)
[2018-02-07] MEDS: hydrOXYzine PAMOATE 25 MG CAPSULE (FP) PO SCH (10:27)
--- NOTE | 2018-02-07 10:40 | PN ---
Progress Note, Physician History of Present Illness: pulmonary alert,still dyspneic,congested - Current Medication List Current Medications: Active Medications Albuterol Sulfate (Ventolin 0.083% Nebulizer Soln -) 1 amp NEB Q1H PRN PRN Reason: SOB/Wheezing Albuterol/Ipratropium (Duoneb -) 1 amp NEB Q4HPO [facility] Last Admin: 02/07/18 10:11 Dose: 1 amp Budesonide/Formoterol Fumarate (Symbicort 160/4.5mcg -) 2 puff IH BID [facility] Last Admin: 02/07/18 10:26 Dose: Not Given Diltiazem HCl (Cardizem -) 30 mg PO TID [facility] Last Admin: 02/07/18 06:03 Dose: 30 mg Ferrous Sulfate (Feosol -) 325 mg PO DAILY [facility] Last Admin: 02/07/18 10:26 Dose: 325 mg Folic Acid (Folic Acid -) 1 mg PO DAILY [facility] Last Admin: 02/07/18 10:26 Dose: 1 mg Heparin Sodium (Porcine) (Heparin -) 5,000 unit SQ TID [facility] Last Admin: 02/07/18 06:03 Dose: 5,000 unit Hydroxyzine Pamoate (Vistaril -) 25 mg PO DAILY [facility] Last Admin: 02/07/18 10:27 Dose: 25 mg Ceftriaxone Sodium 1 gm/ (Dextrose) 50 mls @ 100 mls/hr IVPB DAILY [facility] Last Admin: 02/07/18 10:26 Dose: 100 mls/hr Methylprednisolone Sodium Succinate (Solu-Medrol -) 40 mg IVPUSH Q6H-IV [facility] Last Admin: 02/07/18 10:26 Dose: 40 mg Montelukast Sodium (Singulair -) 10 mg PO HS [facility] Last Admin: 02/06/18 21:45 Dose: 10 mg Polyethylene Glycol (Miralax (For Daily Use) -) 17 gm PO DAILY [facility] Last Admin: 02/07/18 10:26 Dose: 17 gm - Objective Vital Signs: Vital Signs Temperature 997.7 F H 02/07/18 05:28 Pulse Rate 87 02/07/18 05:28 Respiratory Rate 20 02/07/18 05:28 Blood Pressure 131/54 02/07/18 05:28 O2 Sat by Pulse Oximetry (%) 94 L 02/06/18 21:00 Constitutional: Yes: Well Nourished, Calm Eyes: Yes: WNL HENT: Yes: WNL Neck: Yes: WNL Cardiovascular: Yes: Regular Rate and Rhythm, S1, S2 Respiratory: Yes: Wheezes (bilateral wheezes) Gastrointestinal: Yes: Normal Bowel Sounds, Soft Extremities: Yes: WNL Edema: No Labs: CBC, BMP 02/07/18 06:25 02/07/18 06:25 INR, PTT INR 1.11 (0.82-1.09) 02/04/18 03:22 Assessment/Plan A/E COPD O2 DEP HYPERCAPNEIC RESP FAILURE LIKELY ACUTE BRONCHITIS ELEVATED LACTIC ACID HTN CONTINUE O2 INHALED BRONCHODIILATORS STEROIDS SAME DOSE ANTIBIOTICS ECHO CT CHEST PENDING SINGULAIR BP CONTROL DVT PROPHYLAXSIS TREND LACTATE DR SMITH Problem List - Problems (1) COPD exacerbation Code(s): J44.1 - CHRONIC OBSTRUCTIVE PULMONARY DISEASE W (ACUTE) EXACERBATION (2) Acute bronchitis Code(s): J20.9 - ACUTE BRONCHITIS, UNSPECIFIED Qualifiers: Bronchitis organism: unspecified organism Qualified Code(s): J20.9 - Acute bronchitis, unspecified (3) Acute on chronic respiratory failure with hypoxia and hypercapnia Code(s): J96.21 - ACUTE AND CHRONIC RESPIRATORY FAILURE WITH HYPOXIA; J96.22 - ACUTE AND CHRONIC RESPIRATORY FAILURE WITH HYPERCAPNIA (4) Chest pain Code(s): R07.9 - CHEST PAIN, UNSPECIFIED
[2018-02-07 10:53] LABS: ANISOCYTOSIS 1+; PLATELET ESTIMATE NORMAL; TARGET CELLS 1+
--- NOTE | 2018-02-07 12:18 | PN ---
Teaching Attending Note Name of Resident: Lanette Hook ATTENDING PHYSICIAN STATEMENT I saw and evaluated the patient. I reviewed the resident's note and discussed the case with the resident. I agree with the resident's findings and plan as documented. SUBJECTIVE:states breathing is worse today. was unable to ambulate to bathroom due to dyspnea. no ROJAS since wednesday. only 1 in the past week. denies CP, fever , chills, cough OBJECTIVE: Last Vital Signs Temp Pulse Resp BP Pulse Ox 98.4 F 84 18 135/76 94 L 02/07/18 10:00 02/07/18 10:00 02/07/18 10:00 02/07/18 10:00 02/06/18 21:00 General mildly tachypnic CV S1 S2 tachy Lungs diffuse wheezing, poor inspiratory effort ASSESSMENT AND PLAN: 57yo F wtih PMH COPD on 2L NC at home, HTN and iron deficiency anemia presented to the Er with SOB x1 month 1. Acute COPD exacerbation-seems more dyspnic today. will increase medrol to 60mg Q6H, nebs increase frequency. on ceftriaxone day 4. pulmonary on board. 2. ROJAS- appears to be tension like but concern raised given change in frequency lately. head CT negative. on further questioning only had it 1x in the past week. would hold off on starting any new medications at this time. pt agrees to f/u with pmd. 3. RAOUL- likely pre-renal vs medication induced. improved, renal dose all medication. avoid nephrotoxic medication 4. SIRS-afebrile. leukocytosis likely from steroid use. 5. lactic acidosis- due to hypoxia vs inaccurate reading as initial one was negative. trended down 6. abdominal distention-AXR showing some retained stool. no ileus or obstruction , miralax to continue regular BM. 7. HTN- controlled. will monitor while holding HCTZ 8. iron def anemia- Hgb stable. cont iron supplements. no indication for txn at this time. 9. DVT ppx- hep sq
--- NOTE | 2018-02-07 13:31 | PN ---
Physical Exam: SUBJECTIVE: Patient seen and examined. Pt has increased dyspnea after returning from the bathroom. Had nebulizer treatment earlier. OBJECTIVE: Vital Signs Period Temp Pulse Resp BP Sys/Echevarria Pulse Ox Last 24 Hr 97.6 F-997.7 F 84-101 18-20 128-144/54-88 94-96 Vital Signs Temp 98.6 F 02/07/18 13:48 Pulse 90 02/07/18 13:48 Resp 18 02/07/18 13:48 BP 150/63 02/07/18 13:48 Pulse Ox 96 02/07/18 09:00 GENERAL: The patient is awake, alert, and fully oriented, on nasal cannular, unable to speak in complete sentences. No audible wheeze. ENT: NC-3L LUNGS: Scattered bilateral wheezes HEART: S1, S2 ABDOMEN: Soft, nontender, nondistended, normoactive bowel sounds EXTREMITIES: 2+ pulses, warm, well-perfused, no edema. NEUROLOGICAL: AAO x3. No lateralizing signs CBC, BMP 02/07/18 06:25 02/07/18 06:25 Laboratory Results - last 24 hr 02/07/18 02/07/18 06:25 06:25 WBC 11.3 H RBC 4.16 Hgb 9.2 L Hct 29.5 L MCV 70.9 L MCH 22.1 L MCHC 31.1 L RDW 16.4 H Plt Count 179 MPV 9.0 Neutrophils % No Result Required. Neutrophils % (Manual) 93.0 H Band Neutrophils % 1.0 Lymphocytes % No Result Required. Lymphocytes % (Manual) 5.0 L Monocytes % (Manual) 1 L Eosinophils % (Manual) 0.0 Basophils % (Manual) 0.0 Myelocytes % (Man) 0 Promyelocytes % (Man) 0 Blast Cells % (Manual) 0 Nucleated RBC % 0 Metamyelocytes 0 Hypochromia 1+ Platelet Estimate Normal Anisocytosis 1+ Microcytosis 1+ Target Cells 1+ Sodium 142 Potassium 4.5 Chloride 104 Carbon Dioxide 31 Anion Gap 7 L BUN 32 H Creatinine 1.3 H Creat Clearance w eGFR 42.07 Random Glucose 125 H Calcium 8.6 Total Bilirubin 0.2 AST 12 L ALT 15 Alkaline Phosphatase 70 Total Protein 6.8 Albumin 2.6 L Active Medications Generic Name Dose Route Start Last Admin Trade Name Freq PRN Reason Stop Dose Admin Albuterol Sulfate 1 amp 02/06/18 13:18 Ventolin 0.083% Nebulizer Soln - NEB Q1H PRN SOB/Wheezing Albuterol Sulfate 1 amp 02/07/18 10:40 Ventolin 0.083% Nebulizer Soln - NEB Q4H PRN SHORT OF BREATH/WHEEZING Budesonide/Formoterol Fumarate 2 puff 02/04/18 10:00 02/07/18 10:26 Symbicort 160/4.5mcg - IH Not Given BID ZACHARY Diltiazem HCl 30 mg 02/06/18 14:00 02/07/18 06:03 Cardizem - PO 30 mg TID ZACHARY Administration Ferrous Sulfate 325 mg 02/04/18 10:00 02/07/18 10:26 Feosol - PO 325 mg DAILY ZACHARY Administration Folic Acid 1 mg 02/04/18 10:00 02/07/18 10:26 Folic Acid - PO 1 mg DAILY [facility]ACHARY Administration Heparin Sodium (Porcine) 5,000 unit 02/04/18 14:00 02/07/18 06:03 Heparin - SQ 5,000 unit TID ZACHARY Administration Hydroxyzine Pamoate 25 mg 02/04/18 10:00 02/07/18 10:27 Vistaril - PO 25 mg DAILY [facility] Administration Ceftriaxone Sodium 1 gm/ 50 mls @ 100 mls/hr 02/05/18 10:00 02/07/18 10:26 Dextrose IVPB 100 mls/hr DAILY [facility]ACH[facility] Administration Methylprednisolone Sodium Succinate 60 mg 02/07/18 15:00 Solu-Medrol - IVPUSH Q6H-IV ZACHARY Montelukast Sodium 10 mg 02/06/18 22:00 02/06/18 21:45 Singulair - PO 10 mg HS ZACHARY Administration Polyethylene Glycol 17 gm 02/05/18 11:15 02/07/18 10:26 Miralax (For Daily Use) - PO 17 gm DAILY [facility]ACH[facility] Administration Tiotropium [place] 1 puff 02/07/18 10:45 Spiriva - IH DAILY [facility] ASSESSMENT/PLAN: 57 yo female with PMHx COPD on 2L NC at home, HTN and iron deficiency anemia presented with SOB and is admitted for bronchitis and COPD exacerbation. Acute COPD exacerbation: Still dyspneic Increase methylprednisolone back to 60mg Q6H, Ceftriaxone day 4 continue Albuterol, nebs, Spiriva Appreciate Pulm recommendations Tachycardia: Cardizem 30 PO TID Tachycardia improved Headache: Hold Amitryptiline, patient had only one episode of headache RAOUL -likely prerenal, baseline appears to be 1.1 -avoid nephrotoxic substances Lactic acidosis resolved Constipation: -continue Miralax HTN controlled Iron deficiency anemia: cont iron supplements DVT ppx hep sq Dispo: Continue Tele Visit type - Emergency Visit Emergency Visit: Yes ED Registration Date: 02/04/18 Care time: The patient presented to the Emergency Department on the above date and was hospitalized for further evaluation of their emergent condition. - New Patient This patient is new to me today: Yes Date on this admission: 02/07/18 - Critical Care Critical Care patient: No - Discharge Referral Referred to [facility] Med P.C.: No
[2018-02-07] MEDS: TIOTROPIUM BROMIDE 18 MCG CAPSULES IH SCH (14:51)
[2018-02-07] MEDS: ALBUTEROL SO4 0.083% IH SOL 2.5 MG/3 ML VIAL.NEB. NEB PRN (17:00)
[2018-02-07] MEDS: MONTELUKAST NA 10 MG TABLET PO SCH (21:38)
[2018-02-08] MEDS: methylPREDNISolone NA SUCC 40 MG/1 ML VIAL IVPUSH SCH ×4 (04:22→21:18)
[2018-02-08] MEDS: ALBUTEROL SO4 0.083% IH SOL 2.5 MG/3 ML VIAL.NEB. NEB PRN ×4 (05:22→18:13)
[2018-02-08] MEDS: dilTIAZem HCL 30 MG TABLET (FP) PO SCH ×3 (06:48→21:20)
[2018-02-08] MEDS: HEPARIN NA (PORCINE) 5,000 UNITS/ML 1ML VIAL SQ SCH ×3 (06:48→21:20)
[2018-02-08 08:24] LABS: CHLORIDE 106 mmol/L (98-107); HEMATOCRIT 30.4 % (32.4-45.2); HEMOGLOBIN 9.5 GM/dL (10.7-15.3); MCH 22.3 pg (25.7-33.7); MCHC 31.3 g/dl (32.0-36.0); MEAN CELL VOLUME 71.4 fl (80-96); MEAN PLT VOLUME 9.2 fl (7.5-11.1); PLATELET COUNT 173 K/MM3 (134-434); POTASSIUM 4.8 mmol/L (3.5-5.1); RBC 4.25 M/mm3 (3.60-5.2); RDW 16.6 % (11.6-15.6); SODIUM 143 mmol/L (136-145); WHITE BLOOD COUNT 9.5 K/mm3 (4.0-10.0)
[2018-02-08] MEDS ORDERED: PT OWN MED DRAWER 7, Y5N ONE (08:44)
[2018-02-08] MEDS ORDERED: cefTRIAXone SODIUM 1 GM VIAL ONE (08:44)
[2018-02-08] MEDS ORDERED: DEXTROSE 5%-WATER - 50 ML IVPB ONE (08:45)
[2018-02-08 09:06] LABS: ANION GAP 7 (8-16); BLOOD UREA NITROGEN 34 mg/dL (7-18); CALCIUM 8.6 mg/dL (8.5-10.1); CO2 30 mmol/L (21-32); CREATININE 1.2 mg/dL (0.55-1.02); GLUCOSE,RANDOM 133 mg/dL (74-106); MAGNESIUM 2.1 mg/dL (1.8-2.4); PHOSPHOROUS 3.6 mg/dL (2.5-4.9)
--- NOTE | 2018-02-08 10:17 | PN ---
Progress Note, Physician History of Present Illness: PULMONARY ALERT,FEELING BETTER,LESS DYSPNEIC,LESS CONGESTED - Current Medication List Current Medications: Active Medications Albuterol Sulfate (Ventolin 0.083% Nebulizer Soln -) 1 amp NEB Q1H PRN PRN Reason: SOB/Wheezing Albuterol Sulfate (Ventolin 0.083% Nebulizer Soln -) 1 amp NEB Q4H PRN PRN Reason: SHORT OF BREATH/WHEEZING Last Admin: 02/08/18 05:22 Dose: 1 amp Azithromycin (Zithromax -) 500 mg PO DAILY [facility] Stop: 02/13/18 10:01 Budesonide/Formoterol Fumarate (Symbicort 160/4.5mcg -) 2 puff IH BID [facility] Last Admin: 02/07/18 21:44 Dose: Not Given Diltiazem HCl (Cardizem -) 30 mg PO TID [facility] Last Admin: 02/08/18 06:48 Dose: 30 mg Ferrous Sulfate (Feosol -) 325 mg PO DAILY [facility] Last Admin: 02/07/18 10:26 Dose: 325 mg Folic Acid (Folic Acid -) 1 mg PO DAILY [facility] Last Admin: 02/07/18 10:26 Dose: 1 mg Heparin Sodium (Porcine) (Heparin -) 5,000 unit SQ TID [facility] Last Admin: 02/08/18 06:48 Dose: 5,000 unit Hydroxyzine Pamoate (Vistaril -) 25 mg PO DAILY [facility] Last Admin: 02/07/18 10:27 Dose: 25 mg Ceftriaxone Sodium 1 gm/ (Dextrose) 50 mls @ 100 mls/hr IVPB DAILY [facility] Last Admin: 02/07/18 10:26 Dose: 100 mls/hr Methylprednisolone Sodium Succinate (Solu-Medrol -) 60 mg IVPUSH Q6H-IV [facility] Last Admin: 02/08/18 04:22 Dose: 60 mg Montelukast Sodium (Singulair -) 10 mg PO HS [facility] Last Admin: 02/07/18 21:38 Dose: 10 mg Polyethylene Glycol (Miralax (For Daily Use) -) 17 gm PO DAILY [facility] Last Admin: 02/07/18 10:26 Dose: 17 gm Tiotropium [place] (Spiriva -) 1 puff IH DAILY [facility] Last Admin: 02/07/18 14:51 Dose: 1 puff - Objective Vital Signs: Vital Signs Temperature 98.3 F 02/08/18 02:00 Pulse Rate 76 02/08/18 06:00 Respiratory Rate 20 02/08/18 06:00 Blood Pressure 153/85 02/08/18 06:00 O2 Sat by Pulse Oximetry (%) 96 02/07/18 09:00 Constitutional: Yes: Well Nourished, Calm Eyes: Yes: WNL HENT: Yes: WNL Neck: Yes: WNL Cardiovascular: Yes: Regular Rate and Rhythm, S1, S2 Respiratory: Yes: Rhonchi (LESS RHONCHI BIATERALLY) Gastrointestinal: Yes: Normal Bowel Sounds, Soft Extremities: Yes: WNL Edema: No Labs: CBC, BMP 02/08/18 07:22 02/08/18 07:22 INR, PTT INR 1.11 (0.82-1.09) 02/04/18 03:22 - ....Imaging Chest X-ray: Image Reviewed (EXTENSIVE BRONCHIECTASIS BILATERALLY) Assessment/Plan A/E COPD O2 DEP HYPERCAPNEIC RESP FAILURE IMPROVING LIKELY ACUTE BRONCHITIS ELEVATED LACTIC ACID HTN CONTINUE O2 INHALED BRONCHODILATORS STEROIDS SAME DOSE ANTIBIOTICS ECHO PENDING SINGULAIR BP CONTROL DVT PROPHYLAXSIS DR SMITH Problem List - Problems (1) COPD exacerbation Code(s): J44.1 - CHRONIC OBSTRUCTIVE PULMONARY DISEASE W (ACUTE) EXACERBATION (2) Acute bronchitis Code(s): J20.9 - ACUTE BRONCHITIS, UNSPECIFIED Qualifiers: Bronchitis organism: unspecified organism Qualified Code(s): J20.9 - Acute bronchitis, unspecified (3) Acute on chronic respiratory failure with hypoxia and hypercapnia Code(s): J96.21 - ACUTE AND CHRONIC RESPIRATORY FAILURE WITH HYPOXIA; J96.22 - ACUTE AND CHRONIC RESPIRATORY FAILURE WITH HYPERCAPNIA (4) Chest pain Code(s): R07.9 - CHEST PAIN, UNSPECIFIED
[2018-02-08] MEDS: TIOTROPIUM BROMIDE 18 MCG CAPSULES IH SCH (11:48)
[2018-02-08] MEDS: FOLIC ACID 1 MG TABLET (FP) PO SCH (11:48)
[2018-02-08] MEDS: FERROUS SO4 325 MG TABLET (FP) PO SCH (11:48)
[2018-02-08] MEDS: hydrOXYzine PAMOATE 25 MG CAPSULE (FP) PO SCH (11:48)
[2018-02-08] MEDS: CEFTRIAXONE 1 GM in DEXTROSE 5%-WATER - 50 ML IVPB SCH (11:49)
[2018-02-08] MEDS: POLYETHYLENE GLYCOL 3350 119 GM BTL PO SCH (11:49)
[2018-02-08] MEDS: BUDESONIDE/FORMETEROL FUMARATE 160/4.5 mcg INHALER IH SCH ×2 (11:49→21:20)
--- NOTE | 2018-02-08 13:50 | PN ---
Teaching Attending Note Name of Resident: Lanette Hook ATTENDING PHYSICIAN STATEMENT I saw and evaluated the patient. I reviewed the resident's note and discussed the case with the resident. I agree with the resident's findings and plan as documented with exceptions below. SUBJECTIVE: Patient seen and examined. breathing with some improvement, still with cough and sputum. No new fevers or chills. OBJECTIVE: Vital Signs Period Temp Pulse Resp BP Sys/Echevarria Pulse Ox Last 24 Hr 98.0 F-98.6 F 76-91 18-20 127-163/63-90 Intake & Output 02/05/18 02/06/18 02/07/18 02/08/18 23:59 23:59 23:59 23:59 Intake Total 100 300 270 260 Balance 100 300 270 260 General: sitting in bed, mild tachypnea, able to talk in full sentences Chest: bilateral scattered rhonchi R>L, good air entry appreciated Extremities: no edema Abdomen: soft, NT, ND Home Medication List Medication Instructions Recorded Confirmed Type Albuterol 0.083% Nebulizer [place] 1 neb NEB Q4H 12/05/17 02/04/18 History [Ventolin 0.083% Nebulizer Soln -] Cholecalciferol (Vitamin D3) 50,000 unit PO WEEKLY 12/05/17 02/04/18 History [Vitamin D -] Hydrochlorothiazide 25 mg PO DAILY 12/05/17 02/04/18 History Hydroxyzine Pamoate 25 mg PO DAILY 12/05/17 02/04/18 History Ferrous Sulfate [Feosol] 325 mg PO DAILY 02/04/18 02/04/18 History Fluticasone/Salmeterol [Advair 02/04/18 History 250-50 Diskus] Folic Acid 1 mg PO DAILY 02/04/18 02/04/18 History Umeclidinium [place] [Incruse 62.5 mcg IH DAILY 02/04/18 02/04/18 History Ellipta] Active Medications Generic Name Dose Route Start Last Admin Trade Name Freq PRN Reason Stop Dose Admin Albuterol Sulfate 1 amp 02/06/18 13:18 Ventolin 0.083% Nebulizer Soln - NEB Q1H PRN SOB/Wheezing Albuterol Sulfate 1 amp 02/07/18 10:40 02/08/18 05:22 Ventolin 0.083% Nebulizer Soln - NEB 1 amp Q4H PRN Administration SHORT OF BREATH/WHEEZING Azithromycin 500 mg 02/08/18 10:00 Zithromax - PO 02/13/18 10:01 DAILY ZACHARY Budesonide/Formoterol Fumarate 2 puff 02/04/18 10:00 02/08/18 11:49 Symbicort 160/4.5mcg - IH Not Given BID ZACHARY Diltiazem HCl 30 mg 02/06/18 14:00 02/08/18 06:48 Cardizem - PO 30 mg TID [facility]ACHARY Administration Ferrous Sulfate 325 mg 02/04/18 10:00 02/08/18 11:48 Feosol - PO 325 mg DAILY [facility] Administration Folic Acid 1 mg 02/04/18 10:00 02/08/18 11:48 Folic Acid - PO 1 mg DAILY [facility] Administration Heparin Sodium (Porcine) 5,000 unit 02/04/18 14:00 02/08/18 06:48 Heparin - SQ 5,000 unit TID ZACHARY Administration Hydroxyzine Pamoate 25 mg 02/04/18 10:00 02/08/18 11:48 Vistaril - PO 25 mg DAILY [facility] Administration Methylprednisolone Sodium Succinate 60 mg 02/07/18 15:00 02/08/18 11:49 Solu-Medrol - IVPUSH 60 mg Q6H-IV [facility] Administration Montelukast Sodium 10 mg 02/06/18 22:00 02/07/18 21:38 Singulair - PO 10 mg HS [facility]ACHARY Administration Polyethylene Glycol 17 gm 02/05/18 11:15 02/08/18 11:49 Miralax (For Daily Use) - PO 17 gm DAILY [facility] Administration Tiotropium [place] 1 puff 02/07/18 10:45 02/08/18 11:48 Spiriva - IH 1 puff DAILY [facility]ACHARY Administration Laboratory Results - last 24 hr 02/08/18 02/08/18 07:22 07:22 WBC 9.5 RBC 4.25 Hgb 9.5 L Hct 30.4 L MCV 71.4 L MCH 22.3 L MCHC 31.3 L RDW 16.6 H Plt Count 173 MPV 9.2 Neutrophils % No Result Required. Lymphocytes % No Result Required. Nucleated RBC % 0 Sodium 143 Potassium 4.8 Chloride 106 Carbon Dioxide 30 Anion Gap 7 L BUN 34 H Creatinine 1.2 H Random Glucose 133 H Calcium 8.6 Phosphorus 3.6 Magnesium 2.1 Microbiology 02/04/18 03:22 Blood - Peripheral Venous Blood Culture - Preliminary NO GROWTH OBTAINED AFTER 96 HOURS, INCUBATION TO CONTINUE FOR 1 DAYS. 02/04/18 03:22 Blood - Peripheral Venous Blood Culture - Preliminary NO GROWTH OBTAINED AFTER 96 HOURS, INCUBATION TO CONTINUE FOR 1 DAYS. 02/06/18 12:35 Urine - Urine Clean Catch Urine Culture - Final 02/04/18 06:11 Urine - Urine Clean Catch Urine Culture - Final Contaminated: Please Repeat CT chest results reviewed. 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 D/c ceftriaxone. Start azithromycin additional 4 days. Pulmonary input noted. Trend renal function, WBC. Abdominal xray retained stool, no concerns, bowel regimen for now. COntinue PO Fe. Continue diltiazem, titrate up as needed. Hold off for as suspect elevated BP/ HR from her dyspnea and nebs. DVTPPx with heparin dispo - pending clinical improvement. Plan discussed with patient in detail, all questions answered.
[2018-02-08] MEDS: AZITHROMYCIN 250 MG TABLET PO SCH (14:00)
[2018-02-08 14:33] LABS: ANISOCYTOSIS 1+
--- NOTE | 2018-02-08 16:06 | PN ---
Physical Exam: SUBJECTIVE: Patient seen and examined. Still feels SOB at rest and on mild exertion. No fevers or chest pain. Still coughing with mucus production. OBJECTIVE: Vital Signs Period Temp Pulse Resp BP Sys/Echevarria Pulse Ox Last 24 Hr 98.0 F-98.7 F 70-91 20-20 127-163/73-90 96 GENERAL: The patient is awake, alert, and fully oriented, in mild respiratory distress. ENT: NC-3L LUNGS: Bilateral air entry. Breath sounds equal, scattered rhonchi in both lung [place] HEART: Regular rate and rhythm, S1, S2 ABDOMEN: Soft, nontender, normoactive bowel sounds EXTREMITIES: 2+ pulses, warm, well-perfused, no edema. NEUROLOGICAL: Cranial nerves II through XII grossly intact. CBC, BMP 02/08/18 07:22 Laboratory Results - last 24 hr 02/08/18 02/08/18 07:22 07:22 WBC 9.5 RBC 4.25 Hgb 9.5 L Hct 30.4 L MCV 71.4 L MCH 22.3 L MCHC 31.3 L RDW 16.6 H Plt Count 173 MPV 9.2 Total Counted 100 Neutrophils % No Result Required. Neutrophils % (Manual) 92.0 H Lymphocytes % No Result Required. Lymphocytes % (Manual) 6.0 L Monocytes % (Manual) 2 L D Nucleated RBC % 0 Hypochromia 1+ Anisocytosis 1+ Microcytosis 1+ Sodium 143 Potassium 4.8 Chloride 106 Carbon Dioxide 30 Anion Gap 7 L BUN 34 H Creatinine 1.2 H Random Glucose 133 H Calcium 8.6 Phosphorus 3.6 Magnesium 2.1 Active Medications Generic Name Dose Route Start Last Admin Trade Name Freq PRN Reason Stop Dose Admin Albuterol Sulfate 1 amp 02/06/18 13:18 02/08/18 13:47 Ventolin 0.083% Nebulizer Soln - NEB 1 amp Q1H PRN Administration SOB/Wheezing Albuterol Sulfate 1 amp 02/07/18 10:40 02/08/18 05:22 Ventolin 0.083% Nebulizer Soln - NEB 1 amp Q4H PRN Administration SHORT OF BREATH/WHEEZING Azithromycin 500 mg 02/08/18 10:00 02/08/18 14:00 Zithromax - PO 02/13/18 10:01 500 mg DAILY [facility]ACAHRY Administration Budesonide/Formoterol Fumarate 2 puff 02/04/18 10:00 02/08/18 11:49 Symbicort 160/4.5mcg - IH Not Given BID ZACHARY Diltiazem HCl 30 mg 02/06/18 14:00 02/08/18 14:00 Cardizem - PO 30 mg TID ZACHARY Administration Ferrous Sulfate 325 mg 02/04/18 10:00 02/08/18 11:48 Feosol - PO 325 mg DAILY [facility] Administration Folic Acid 1 mg 02/04/18 10:00 02/08/18 11:48 Folic Acid - PO 1 mg DAILY [facility] Administration Heparin Sodium (Porcine) 5,000 unit 02/04/18 14:00 02/08/18 14:00 Heparin - SQ Not Given TID ZACHARY Hydroxyzine Pamoate 25 mg 02/04/18 10:00 02/08/18 11:48 Vistaril - PO 25 mg DAILY [facility] Administration Methylprednisolone Sodium Succinate 60 mg 02/07/18 15:00 02/08/18 11:49 Solu-Medrol - IVPUSH 60 mg Q6H-IV ZACHARY Administration Montelukast Sodium 10 mg 02/06/18 22:00 02/07/18 21:38 Singulair - PO 10 mg HS ZACHARY Administration Polyethylene Glycol 17 gm 02/05/18 11:15 02/08/18 11:49 Miralax (For Daily Use) - PO 17 gm DAILY [facility] Administration Tiotropium [place] 1 puff 02/07/18 10:45 02/08/18 11:48 Spiriva - IH 1 puff DAILY [facility] Administration ECHO- 02/08/18: Normal ventricular function CT chest: Moderate COPD and bronchiectasis ASSESSMENT/PLAN: 57 yo female with PMHx COPD on 2L NC at home, HTN and iron deficiency anemia presented with SOB and is admitted for bronchitis and COPD exacerbation. Acute COPD exacerbation: Still dyspneic Cont methylprednisolone 60mg Q6H, Completed Ceftriaxone day 5 continue Albuterol, nebs, Spiriva Appreciate Pulm recommendations Start azithromycin 500mg daily Sputum culture Tachycardia: Cardizem 30 PO TID Tachycardia improved Headache: Resolved RAOUL -likely prerenal, baseline appears to be 1.1 -avoid nephrotoxic substances Lactic acidosis resolved Constipation: -continue Miralax HTN controlled Iron deficiency anemia: cont iron supplements DVT ppx hep sq FEN: No IVF indicated at this time Monitor lytes and replete as needed Continue diet Dispo: D/C cardiac monitoring May transfer out of tele Visit type - Emergency Visit Emergency Visit: Yes ED Registration Date: 02/04/18 Care time: The patient presented to the Emergency Department on the above date and was hospitalized for further evaluation of their emergent condition. - New Patient This patient is new to me today: No - Critical Care Critical Care patient: No - Discharge Referral Referred to [facility] Med P.C.: No
[2018-02-08 21:11] LABS: HEMATOCRIT 31.5 % (32.4-45.2); HEMOGLOBIN 9.7 GM/dL (10.7-15.3); MCH 21.8 pg (25.7-33.7); MEAN CELL VOLUME 70.2 fl (80-96); PLATELET COUNT 204 K/MM3 (134-434); RBC 4.48 M/mm3 (3.60-5.2); RDW 16.7 % (11.6-15.6); WHITE BLOOD COUNT 9.8 K/mm3 (4.0-10.0)
[2018-02-08] MEDS: MONTELUKAST NA 10 MG TABLET PO SCH (21:20)
[2018-02-08] MEDS ORDERED: ACETAMINOPHEN 325 MG TABLET (FP) PO ONE (21:35)
[2018-02-09] MEDS: ALBUTEROL SO4 0.083% IH SOL 2.5 MG/3 ML VIAL.NEB. NEB PRN ×4 (02:05→21:20)
[2018-02-09] MEDS: methylPREDNISolone NA SUCC 40 MG/1 ML VIAL IVPUSH SCH ×2 (03:15→09:33)
[2018-02-09] MEDS: dilTIAZem HCL 30 MG TABLET (FP) PO SCH ×3 (06:36→21:43)
[2018-02-09] MEDS: HEPARIN NA (PORCINE) 5,000 UNITS/ML 1ML VIAL SQ SCH ×3 (06:36→21:44)
[2018-02-09 06:40] LABS: HEMATOCRIT 33.6 % (32.4-45.2); HEMOGLOBIN 10.4 GM/dL (10.7-15.3); MEAN CELL VOLUME 70.9 fl (80-96); MEAN PLT VOLUME 9.6 fl (7.5-11.1); PLATELET COUNT 217 K/MM3 (134-434); RBC 4.74 M/mm3 (3.60-5.2); RDW 16.8 % (11.6-15.6); WHITE BLOOD COUNT 10.6 K/mm3 (4.0-10.0)
--- NOTE | 2018-02-09 06:44 | PN ---
Physical Exam: SUBJECTIVE: Patient seen and examined. Breathing improved overnight. OBJECTIVE: Vital Signs Period Temp Pulse Resp BP Sys/Echevarria Pulse Ox Last 24 Hr 97.8 F-98.7 F 70-80 20-22 145-154/78-90 96-96 GENERAL: The patient is awake, alert, and fully oriented, on 2L of [place] oxygen. Speaks in complete sentences ENT: NC-2L NECK: Trachea midline, full range of motion, supple. LUNGS: Scanty rhonchi L upper lung bases. Good air entry bilat. Faint crackles HEART: Regular rate and rhythm, S1, S2 without murmur ABDOMEN: Soft, nontender, nondistended, normoactive bowel sounds EXTREMITIES: 2+ pulses, warm, well-perfused, no edema. NEUROLOGICAL: Cranial nerves II through XII grossly intact. Normal speech Laboratory Results - last 24 hr 02/08/18 02/08/18 02/08/18 07:22 07:22 20:30 WBC 9.5 9.8 RBC 4.25 4.48 Hgb 9.5 L 9.7 L Hct 30.4 L 31.5 L MCV 71.4 L 70.2 L MCH 22.3 L 21.8 L MCHC 31.3 L 31.0 L RDW 16.6 H 16.7 H Plt Count 173 204 MPV 9.2 9.0 Total Counted 100 Neutrophils % No Result Required. Neutrophils % (Manual) 92.0 H Lymphocytes % No Result Required. Lymphocytes % (Manual) 6.0 L Monocytes % (Manual) 2 L D Nucleated RBC % 0 Hypochromia 1+ Anisocytosis 1+ Microcytosis 1+ Sodium 143 Potassium 4.8 Chloride 106 Carbon Dioxide 30 Anion Gap 7 L BUN 34 H Creatinine 1.2 H Random Glucose 133 H Calcium 8.6 Phosphorus 3.6 Magnesium 2.1 Active Medications Generic Name Dose Route Start Last Admin Trade Name Freq PRN Reason Stop Dose Admin Albuterol Sulfate 1 amp 02/06/18 13:18 02/08/18 17:56 Ventolin 0.083% Nebulizer Soln - NEB 1 amp Q1H PRN Administration SOB/Wheezing Albuterol Sulfate 1 amp 02/07/18 10:40 02/09/18 02:05 Ventolin 0.083% Nebulizer Soln - NEB 1 amp Q4H PRN Administration SHORT OF BREATH/WHEEZING Azithromycin 500 mg 02/08/18 10:00 02/08/18 14:00 Zithromax - PO 02/13/18 10:01 500 mg DAILY [facility]ACHARY Administration Budesonide/Formoterol Fumarate 2 puff 02/04/18 10:00 02/08/18 21:20 Symbicort 160/4.5mcg - IH Not Given BID ZACHARY Diltiazem HCl 30 mg 02/06/18 14:00 02/09/18 06:36 Cardizem - PO 30 mg TID ZACHARY Administration Ferrous Sulfate 325 mg 02/04/18 10:00 02/08/18 11:48 Feosol - PO 325 mg DAILY [facility] Administration Folic Acid 1 mg 02/04/18 10:00 02/08/18 11:48 Folic Acid - PO 1 mg DAILY [facility]ACAHRY Administration Heparin Sodium (Porcine) 5,000 unit 02/04/18 14:00 02/09/18 06:36 Heparin - SQ 5,000 unit TID ZACHARY Administration Hydroxyzine Pamoate 25 mg 02/04/18 10:00 02/08/18 11:48 Vistaril - PO 25 mg DAILY [facility] Administration Methylprednisolone Sodium Succinate 60 mg 02/07/18 15:00 02/09/18 03:15 Solu-Medrol - IVPUSH 60 mg Q6H-IV ZACHARY Administration Montelukast Sodium 10 mg 02/06/18 22:00 02/08/18 21:20 Singulair - PO 10 mg HS ZACHARY Administration Polyethylene Glycol 17 gm 02/05/18 11:15 02/08/18 11:49 Miralax (For Daily Use) - PO 17 gm DAILY [facility] Administration Tiotropium [place] 1 puff 02/07/18 10:45 02/08/18 11:48 Spiriva - IH 1 puff DAILY [facility] Administration Current Medications Albuterol Sulfate (Ventolin 0.083% Nebulizer Soln -) 1 amp NEB Q1H PRN PRN Reason: SOB/Wheezing Last Admin: 02/08/18 17:56 Dose: 1 amp Albuterol Sulfate (Ventolin 0.083% Nebulizer Soln -) 1 amp NEB Q4H PRN PRN Reason: SHORT OF BREATH/WHEEZING Last Admin: 02/09/18 02:05 Dose: 1 amp Azithromycin (Zithromax -) 500 mg PO DAILY [facility] Stop: 02/13/18 10:01 Last Admin: 02/08/18 14:00 Dose: 500 mg Budesonide/Formoterol Fumarate (Symbicort 160/4.5mcg -) 2 puff IH BID [facility] Last Admin: 02/08/18 21:20 Dose: Not Given Diltiazem HCl (Cardizem -) 30 mg PO TID [facility] Last Admin: 02/09/18 06:36 Dose: 30 mg Ferrous Sulfate (Feosol -) 325 mg PO DAILY [facility] Last Admin: 02/08/18 11:48 Dose: 325 mg Folic Acid (Folic Acid -) 1 mg PO DAILY [facility] Last Admin: 02/08/18 11:48 Dose: 1 mg Heparin Sodium (Porcine) (Heparin -) 5,000 unit SQ TID [facility] Last Admin: 02/09/18 06:36 Dose: 5,000 unit Hydroxyzine Pamoate (Vistaril -) 25 mg PO DAILY [facility] Last Admin: 02/08/18 11:48 Dose: 25 mg Methylprednisolone Sodium Succinate (Solu-Medrol -) 60 mg IVPUSH Q6H-IV [facility] Last Admin: 02/09/18 03:15 Dose: 60 mg Montelukast Sodium (Singulair -) 10 mg PO HS [facility] Last Admin: 02/08/18 21:20 Dose: 10 mg Polyethylene Glycol (Miralax (For Daily Use) -) 17 gm PO DAILY [facility] Last Admin: 02/08/18 11:49 Dose: 17 gm Tiotropium [place] (Spiriva -) 1 puff IH DAILY [facility] Last Admin: 02/08/18 11:48 Dose: 1 puff ECHO- 02/08/18: Normal ventricular function CT chest: Moderate COPD and bronchiectasis ASSESSMENT/PLAN: 57 yo female with PMHx COPD on 2L NC at home, HTN and iron deficiency anemia presented with SOB and is admitted for bronchitis and COPD exacerbation. Acute COPD exacerbation: Improving dyspnea reduce methylprednisolone to 60mg Q8H continue Albuterol, nebs, Spiriva Appreciate Pulm recommendations Cont azithromycin 500mg daily Sputum culture Tachycardia: Cardizem 30 PO TID Tachycardia improved Headache: Resolved RAOUL -likely prerenal, baseline appears to be 1.1 -avoid nephrotoxic substances Lactic acidosis resolved Constipation: -continue Miralax HTN controlled Iron deficiency anemia: cont iron supplements DVT ppx hep sq FEN: No IVF indicated at this time Monitor lytes and replete as needed Continue diet Dispo: Cont Med Surg Visit type - Emergency Visit Emergency Visit: Yes ED Registration Date: 02/04/18 Care time: The patient presented to the Emergency Department on the above date and was hospitalized for further evaluation of their emergent condition. - New Patient This patient is new to me today: No - Critical Care Critical Care patient: No - Discharge Referral Referred to [facility] Med P.C.: No
[2018-02-09 07:20] LABS: CHLORIDE 104 mmol/L (98-107); POTASSIUM 4.5 mmol/L (3.5-5.1); SODIUM 142 mmol/L (136-145)
[2018-02-09 07:27] LABS: ALBUMIN 2.8 g/dl (3.4-5.0); ALK PHOS 83 U/L (45-117); ANION GAP 5 (8-16); BILIRUBIN,TOTAL 0.2 mg/dL (0.2-1.0); BLOOD UREA NITROGEN 35 mg/dL (7-18); CALCIUM 8.6 mg/dL (8.5-10.1); CO2 33 mmol/L (21-32); CREATININE 1.2 mg/dL (0.55-1.02); GLUCOSE,RANDOM 112 mg/dL (74-106); MAGNESIUM 2.3 mg/dL (1.8-2.4); PHOSPHOROUS 3.2 mg/dL (2.5-4.9); SGOT/AST 11 U/L (15-37); SGPT/ALT 17 U/L (12-78)
[2018-02-09] MEDS ORDERED: PT OWN MED DRAWER 7, Y5N ONE (09:22)
[2018-02-09] MEDS: FERROUS SO4 325 MG TABLET (FP) PO SCH (09:33)
[2018-02-09] MEDS: FOLIC ACID 1 MG TABLET (FP) PO SCH (09:33)
[2018-02-09] MEDS: AZITHROMYCIN 250 MG TABLET PO SCH (09:33)
[2018-02-09] MEDS: TIOTROPIUM BROMIDE 18 MCG CAPSULES IH SCH (09:34)
[2018-02-09] MEDS: POLYETHYLENE GLYCOL 3350 119 GM BTL PO SCH (09:34)
[2018-02-09] MEDS: hydrOXYzine PAMOATE 25 MG CAPSULE (FP) PO SCH (09:35)
[2018-02-09] MEDS: BUDESONIDE/FORMETEROL FUMARATE 160/4.5 mcg INHALER IH SCH ×2 (09:35→21:44)
--- NOTE | 2018-02-09 09:54 | PN ---
Progress Note, Physician History of Present Illness: pulmonary alert,less dyspneic,-cp - Current Medication List Current Medications: Active Medications Albuterol Sulfate (Ventolin 0.083% Nebulizer Soln -) 1 amp NEB Q1H PRN PRN Reason: SOB/Wheezing Last Admin: 02/08/18 17:56 Dose: 1 amp Albuterol Sulfate (Ventolin 0.083% Nebulizer Soln -) 1 amp NEB Q4H PRN PRN Reason: SHORT OF BREATH/WHEEZING Last Admin: 02/09/18 02:05 Dose: 1 amp Azithromycin (Zithromax -) 500 mg PO DAILY [facility] Stop: 02/13/18 10:01 Last Admin: 02/09/18 09:33 Dose: 500 mg Budesonide/Formoterol Fumarate (Symbicort 160/4.5mcg -) 2 puff IH BID [facility] Last Admin: 02/09/18 09:35 Dose: Not Given Diltiazem HCl (Cardizem -) 30 mg PO TID [facility] Last Admin: 02/09/18 06:36 Dose: 30 mg Ferrous Sulfate (Feosol -) 325 mg PO DAILY [facility] Last Admin: 02/09/18 09:33 Dose: 325 mg Folic Acid (Folic Acid -) 1 mg PO DAILY [facility] Last Admin: 02/09/18 09:33 Dose: 1 mg Heparin Sodium (Porcine) (Heparin -) 5,000 unit SQ TID [facility] Last Admin: 02/09/18 06:36 Dose: 5,000 unit Hydroxyzine Pamoate (Vistaril -) 25 mg PO DAILY [facility] Last Admin: 02/09/18 09:35 Dose: 25 mg Methylprednisolone Sodium Succinate (Solu-Medrol -) 60 mg IVPUSH Q6H-IV [facility] Last Admin: 02/09/18 09:33 Dose: 60 mg Montelukast Sodium (Singulair -) 10 mg PO HS [facility] Last Admin: 02/08/18 21:20 Dose: 10 mg Polyethylene Glycol (Miralax (For Daily Use) -) 17 gm PO DAILY [facility] Last Admin: 02/09/18 09:34 Dose: 17 gm Tiotropium [place] (Spiriva -) 1 puff IH DAILY [facility] Last Admin: 02/09/18 09:34 Dose: 1 puff - Objective Vital Signs: Vital Signs Temperature 97.8 F 02/09/18 06:00 Pulse Rate 72 02/09/18 06:00 Respiratory Rate 20 02/09/18 06:00 Blood Pressure 147/90 02/09/18 06:00 O2 Sat by Pulse Oximetry (%) 96 02/08/18 21:00 Constitutional: Yes: Well Nourished, Calm Eyes: Yes: WNL HENT: Yes: WNL Neck: Yes: WNL Cardiovascular: Yes: Regular Rate and Rhythm, S1, S2 Respiratory: Yes: Wheezes (scattered levon wheezes) Gastrointestinal: Yes: Normal Bowel Sounds, Soft Extremities: Yes: WNL Edema: No Labs: CBC, BMP 02/09/18 05:00 02/09/18 06:00 INR, PTT INR 1.11 (0.82-1.09) 02/04/18 03:22 Assessment/Plan A/E COPD O2 DEPENDENT HYPERCAPNEIC RESP FAILURE IMPROVING EXTENSIVE BRONCHIECTASIS ACUTE BRONCHITIS ELEVATED LACTIC ACID HTN O2 INHALED BRONCHODILATORS STEROID TAPER ANTIBIOTICS SINGULAIR BP CONTROL DVT PROPHYLAXIS CHEST PT OUTPATIENT PULMONARY REHAB DR SMITH Problem List - Problems (1) COPD exacerbation Code(s): J44.1 - CHRONIC OBSTRUCTIVE PULMONARY DISEASE W (ACUTE) EXACERBATION (2) Acute bronchitis Code(s): J20.9 - ACUTE BRONCHITIS, UNSPECIFIED Qualifiers: Bronchitis organism: unspecified organism Qualified Code(s): J20.9 - Acute bronchitis, unspecified (3) Acute on chronic respiratory failure with hypoxia and hypercapnia Code(s): J96.21 - ACUTE AND CHRONIC RESPIRATORY FAILURE WITH HYPOXIA; J96.22 - ACUTE AND CHRONIC RESPIRATORY FAILURE WITH HYPERCAPNIA (4) Chest pain Code(s): R07.9 - CHEST PAIN, UNSPECIFIED
[2018-02-09] MEDS: methylPREDNISolone NA SUCC 125 MG/2 ML VIAL IVPUSH SCH ×2 (10:00→17:56)
[2018-02-09 11:01] LABS: PLATELET ESTIMATE NORMAL; TARGET CELLS 1+; TEAR DROP CELLS 1+
--- NOTE | 2018-02-09 14:47 | PN ---
Teaching Attending Note Name of Resident: Lanette Hook ATTENDING PHYSICIAN STATEMENT I saw and evaluated the patient. I reviewed the resident's note and discussed the case with the resident. I agree with the resident's findings and plan as documented with exceptions below. SUBJECTIVE: Patient seen and examined. breathing improved, no new complaints. OBJECTIVE: Vital Signs Period Temp Pulse Resp BP Sys/Echevarria Pulse Ox Last 24 Hr 97.1 F-98.5 F 72-80 20-22 145-154/78-90 96-97 Intake & Output 02/06/18 02/07/18 02/08/18 02/09/18 23:59 23:59 23:59 23:59 Intake Total 850 493 2074 520 Balance 358 313 0318 520 General: sitting bed having lunch Chest: improved air entry, no wheezing or rhonchi currently Home Medication List Medication Instructions Recorded Confirmed Type Albuterol 0.083% Nebulizer [place] 1 neb NEB Q4H 12/05/17 02/04/18 History [Ventolin 0.083% Nebulizer Soln -] Cholecalciferol (Vitamin D3) 50,000 unit PO WEEKLY 12/05/17 02/04/18 History [Vitamin D -] Hydrochlorothiazide 25 mg PO DAILY 12/05/17 02/04/18 History Hydroxyzine Pamoate 25 mg PO DAILY 12/05/17 02/04/18 History Ferrous Sulfate [Feosol] 325 mg PO DAILY 02/04/18 02/04/18 History Fluticasone/Salmeterol [Advair 02/04/18 History 250-50 Diskus] Folic Acid 1 mg PO DAILY 02/04/18 02/04/18 History Umeclidinium [place] [Incruse 62.5 mcg IH DAILY 02/04/18 02/04/18 History Ellipta] Active Medications Generic Name Dose Route Start Last Admin Trade Name Freq PRN Reason Stop Dose Admin Albuterol Sulfate 1 amp 02/06/18 13:18 02/08/18 17:56 Ventolin 0.083% Nebulizer Soln - NEB 1 amp Q1H PRN Administration SOB/Wheezing Albuterol Sulfate 1 amp 02/07/18 10:40 02/09/18 13:39 Ventolin 0.083% Nebulizer Soln - NEB 1 amp Q4H PRN Administration SHORT OF BREATH/WHEEZING Azithromycin 500 mg 02/08/18 10:00 02/09/18 09:33 Zithromax - PO 02/13/18 10:01 500 mg DAILY [facility] Administration Budesonide/Formoterol Fumarate 2 puff 02/04/18 10:00 02/09/18 09:35 Symbicort 160/4.5mcg - IH Not Given BID [facility] Diltiazem HCl 30 mg 02/06/18 14:00 02/09/18 14:28 Cardizem - PO 30 mg TID [facility] Administration Ferrous Sulfate 325 mg 02/04/18 10:00 02/09/18 09:33 Feosol - PO 325 mg DAILY [facility] Administration Folic Acid 1 mg 02/04/18 10:00 02/09/18 09:33 Folic Acid - PO 1 mg DAILY [facility] Administration Heparin Sodium (Porcine) 5,000 unit 02/04/18 14:00 02/09/18 14:28 Heparin - SQ 5,000 unit TID [facility] Administration Hydroxyzine Pamoate 25 mg 02/04/18 10:00 02/09/18 09:35 Vistaril - PO 25 mg DAILY [facility] Administration Methylprednisolone Sodium Succinate 60 mg 02/09/18 10:00 02/09/18 10:00 Solu-Medrol - IVPUSH Not Given Q8H-IV [facility] Montelukast Sodium 10 mg 02/06/18 22:00 02/08/18 21:20 Singulair - PO 10 mg HS [facility] Administration Polyethylene Glycol 17 gm 02/05/18 11:15 02/09/18 09:34 Miralax (For Daily Use) - PO 17 gm DAILY [facility] Administration Tiotropium [place] 1 puff 02/07/18 10:45 02/09/18 09:34 Spiriva - IH 1 puff DAILY [facility] Administration Laboratory Results - last 24 hr 02/08/18 02/09/18 02/09/18 20:30 05:00 06:00 WBC 9.8 10.6 H RBC 4.48 4.74 Hgb 9.7 L 10.4 L Hct 31.5 L 33.6 MCV 70.2 L 70.9 L MCH 21.8 L 22.0 L MCHC 31.0 L 31.0 L RDW 16.7 H 16.8 H Plt Count 204 217 MPV 9.0 9.6 Neutrophils % No Result Required. Neutrophils % (Manual) 81.2 Band Neutrophils % 2.1 Lymphocytes % No Result Required. Lymphocytes % (Manual) 5.2 L Monocytes % (Manual) 6 D Eosinophils % (Manual) 0.0 Basophils % (Manual) 0.0 Myelocytes % (Man) 2 D Promyelocytes % (Man) 0 Blast Cells % (Manual) 0 Nucleated RBC % 0 Metamyelocytes 3 H D Platelet Estimate Normal Target Cells 1+ Tear Drop Cells 1+ Sodium 142 Potassium 4.5 Chloride 104 Carbon Dioxide 33 H Anion Gap 5 L BUN 35 H Creatinine 1.2 H Creat Clearance w eGFR 46.14 Random Glucose 112 H Calcium 8.6 Phosphorus 3.2 Magnesium 2.3 Total Bilirubin 0.2 AST 11 L ALT 17 Alkaline Phosphatase 83 Total Protein 7.0 Albumin 2.8 L Microbiology 02/04/18 03:22 Blood - Peripheral Venous Blood Culture - Final NO GROWTH AFTER 5 DAYS INCUBATION 02/04/18 03:22 Blood - Peripheral Venous Blood Culture - Final NO GROWTH AFTER 5 DAYS INCUBATION 02/06/18 12:35 Urine - Urine Clean Catch Urine Culture - Final 02/04/18 06:11 Urine - Urine Clean Catch Urine Culture - Final Contaminated: Please Repeat ASSESSMENT AND PLAN: 57yo F wtih PMH COPD on 2L NC at home, HTN and iron deficiency anemia presented to the Er with SOB x1 month -Acute COPD Exacerbation/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 Azithromycin day 3/5 Pulmonary input noted. Chest PT. Renal function/WBC stable. Abdominal xray retained stool, no concerns, bowel regimen for now. COntinue PO Fe. Continue diltiazem, titrate up as needed. Hold off for as suspect elevated BP/ HR from her dyspnea and nebs. DVTPPx with heparin dispo - pending clinical improvement, anticipate in 2-3 days. Plan discussed with patient in detail, all questions answered.
[2018-02-09] MEDS: MONTELUKAST NA 10 MG TABLET PO SCH (21:43)
[2018-02-10] MEDS: methylPREDNISolone NA SUCC 125 MG/2 ML VIAL IVPUSH SCH (01:41)
[2018-02-10] MEDS: HEPARIN NA (PORCINE) 5,000 UNITS/ML 1ML VIAL SQ SCH ×3 (05:44→21:01)
[2018-02-10] MEDS: dilTIAZem HCL 30 MG TABLET (FP) PO SCH ×3 (05:44→21:01)
[2018-02-10 06:36] LABS: BASO % 0.4 % (0-2.0); EOS % 0.2 % (0-4.5); HEMATOCRIT 30.4 % (32.4-45.2); HEMOGLOBIN 9.6 GM/dL (10.7-15.3); MCH 22.2 pg (25.7-33.7); MCHC 31.4 g/dl (32.0-36.0); MEAN CELL VOLUME 70.6 fl (80-96); MEAN PLT VOLUME 8.8 fl (7.5-11.1); MONO % 6.1 % (3.8-10.2); NEUT % 89.3 % (42.8-82.8); PLATELET COUNT 177 K/MM3 (134-434); RBC 4.31 M/mm3 (3.60-5.2); RDW 16.7 % (11.6-15.6); WHITE BLOOD COUNT 10.4 K/mm3 (4.0-10.0)
[2018-02-10 06:59] LABS: ALBUMIN 2.5 g/dl (3.4-5.0); ANION GAP 5 (8-16); BILIRUBIN,TOTAL 0.5 mg/dL (0.2-1.0); BLOOD UREA NITROGEN 38 mg/dL (7-18); CALCIUM 8.3 mg/dL (8.5-10.1); CHLORIDE 103 mmol/L (98-107); CO2 35 mmol/L (21-32); CREATININE 1.2 mg/dL (0.55-1.02); GLUCOSE,RANDOM 134 mg/dL (74-106); MAGNESIUM 2.2 mg/dL (1.8-2.4); PHOSPHOROUS 3.7 mg/dL (2.5-4.9); POTASSIUM 4.4 mmol/L (3.5-5.1); SGOT/AST 10 U/L (15-37); SGPT/ALT 17 U/L (12-78); SODIUM 143 mmol/L (136-145); TOT PROT 6.2 g/dl (6.4-8.2)
[2018-02-10 07:00] LABS: ALK PHOS 71 U/L (45-117)
--- NOTE | 2018-02-10 07:45 | PN ---
Teaching Attending Note Name of Resident: Lanette Hook ATTENDING PHYSICIAN STATEMENT I saw and evaluated the patient. I reviewed the resident's note and discussed the case with the resident. I agree with the resident's findings and plan as documented with exceptions below. SUBJECTIVE: Patient seen and examined. Breathing continues to improve, no new concerns. OBJECTIVE: Vital Signs Period Temp Pulse Resp BP Sys/Echevarria Pulse Ox Last 24 Hr 97.1 F-98.7 F 69-94 20-22 146-166/78-86 96-97 Intake & Output 02/07/18 02/08/18 02/09/18 02/10/18 23:59 23:59 23:59 23:59 Intake Total 270 1320 1130 Balance 270 1320 1130 General: lying in bed in no acute distress Chest: improved air entry, no wheezing currently Home Medication List Medication Instructions Recorded Confirmed Type Albuterol 0.083% Nebulizer [place]iny 1 neb NEB Q4H 12/05/17 02/04/18 History [Ventolin 0.083% Nebulizer Soln -] Cholecalciferol (Vitamin D3) 50,000 unit PO WEEKLY 12/05/17 02/04/18 History [Vitamin D -] Hydrochlorothiazide 25 mg PO DAILY 12/05/17 02/04/18 History Hydroxyzine Pamoate 25 mg PO DAILY 12/05/17 02/04/18 History Ferrous Sulfate [Feosol] 325 mg PO DAILY 02/04/18 02/04/18 History Fluticasone/Salmeterol [Advair 02/04/18 History 250-50 Diskus] Folic Acid 1 mg PO DAILY 02/04/18 02/04/18 History Umeclidinium [place] [Incruse 62.5 mcg IH DAILY 02/04/18 02/04/18 History Ellipta] Active Medications Generic Name Dose Route Start Last Admin Trade Name Freq PRN Reason Stop Dose Admin Albuterol Sulfate 1 amp 02/06/18 13:18 02/08/18 17:56 Ventolin 0.083% Nebulizer Soln - NEB 1 amp Q1H PRN Administration SOB/Wheezing Albuterol Sulfate 1 amp 02/07/18 10:40 02/09/18 21:20 Ventolin 0.083% Nebulizer Soln - NEB 1 amp Q4H PRN Administration SHORT OF BREATH/WHEEZING Azithromycin 500 mg 02/08/18 10:00 02/09/18 09:33 Zithromax - PO 02/13/18 10:01 500 mg DAILY [facility] Administration Budesonide/Formoterol Fumarate 2 puff 02/04/18 10:00 02/09/18 21:44 Symbicort 160/4.5mcg - IH Not Given BID [facility] Diltiazem HCl 30 mg 02/06/18 14:00 02/10/18 05:44 Cardizem - PO 30 mg TID [facility] Administration Ferrous Sulfate 325 mg 02/04/18 10:00 02/09/18 09:33 Feosol - PO 325 mg DAILY [facility] Administration Folic Acid 1 mg 02/04/18 10:00 02/09/18 09:33 Folic Acid - PO 1 mg DAILY [facility] Administration Heparin Sodium (Porcine) 5,000 unit 02/04/18 14:00 02/10/18 05:44 Heparin - SQ Not Given TID [facility] Hydroxyzine Pamoate 25 mg 02/04/18 10:00 02/09/18 09:35 Vistaril - PO 25 mg DAILY [facility] Administration Methylprednisolone Sodium Succinate 60 mg 02/09/18 10:00 02/10/18 01:41 Solu-Medrol - IVPUSH 60 mg Q8H-IV [facility] Administration Montelukast Sodium 10 mg 02/06/18 22:00 02/09/18 21:43 Singulair - PO 10 mg HS [facility] Administration Polyethylene Glycol 17 gm 02/05/18 11:15 02/09/18 09:34 Miralax (For Daily Use) - PO 17 gm DAILY [facility] Administration Tiotropium [place] 1 puff 02/07/18 10:45 02/09/18 09:34 Spiriva - IH 1 puff DAILY [facility] Administration Laboratory Results - last 24 hr 02/09/18 02/10/18 02/10/18 05:00 06:10 06:10 WBC 10.4 H RBC 4.31 Hgb 9.6 L Hct 30.4 L MCV 70.6 L MCH 22.2 L MCHC 31.4 L RDW 16.7 H Plt Count 177 MPV 8.8 Neutrophils % 89.3 H Neutrophils % (Manual) 81.2 Band Neutrophils % 2.1 Lymphocytes % 4.0 L D Lymphocytes % (Manual) 5.2 L Monocytes % 6.1 Monocytes % (Manual) 6 D Eosinophils % 0.2 D Eosinophils % (Manual) 0.0 Basophils % 0.4 Basophils % (Manual) 0.0 Myelocytes % (Man) 2 D Promyelocytes % (Man) 0 Blast Cells % (Manual) 0 Nucleated RBC % 0 0 Metamyelocytes 3 H D Platelet Estimate Normal Target Cells 1+ Tear Drop Cells 1+ Sodium 143 Potassium 4.4 Chloride 103 Carbon Dioxide 35 H Anion Gap 5 L BUN 38 H Creatinine 1.2 H Creat Clearance w eGFR 46.14 Random Glucose 134 H Calcium 8.3 L Phosphorus 3.7 Magnesium 2.2 Total Bilirubin 0.5 D AST 10 L ALT 17 Alkaline Phosphatase 71 Total Protein 6.2 L Albumin 2.5 L Microbiology 02/04/18 03:22 Blood - Peripheral Venous Blood Culture - Final NO GROWTH AFTER 5 DAYS INCUBATION 02/04/18 03:22 Blood - Peripheral Venous Blood Culture - Final NO GROWTH AFTER 5 DAYS INCUBATION 02/06/18 12:35 Urine - Urine Clean Catch Urine Culture - Final 02/04/18 06:11 Urine - Urine Clean Catch Urine Culture - Final Contaminated: Please Repeat CT chest results reviewed ASSESSMENT AND PLAN: 57yo F wtih PMH COPD on 2L NC at home, HTN and iron deficiency anemia presented to the Er with SOB x1 month -Acute COPD Exacerbation/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 Azithromycin day 4/5 Pulmonary input noted. Chest PT. Renal function/WBC stable. Abdominal xray retained stool, no concerns, bowel regimen for now. COntinue PO Fe. Continue diltiazem, titrate up as needed. Hold off for as suspect elevated BP/ HR from her dyspnea and nebs. DVTPPx with heparin dispo - pending clinical improvement, anticipate in 1-2 days PT eval. Ambulatory oxygen needs assessment in 24 hours. Transfer to med-surg. Plan discussed with patient in detail, all questions answered.
--- NOTE | 2018-02-10 08:05 | PN ---
Physical Exam: SUBJECTIVE: Patient seen and examined. Says she is still short of breath. Started steroid taper yesterday. OBJECTIVE: Vital Signs Period Temp Pulse Resp BP Sys/Echevarria Pulse Ox Last 24 Hr 97.1 F-98.7 F 69-94 20-22 146-166/78-86 96-97 Vital Signs Temp 98.2 F 02/10/18 05:47 Pulse 69 02/10/18 05:47 Resp 20 02/10/18 05:47 BP 153/86 02/10/18 05:47 Pulse Ox 96 02/09/18 21:00 GENERAL: The patient is awake, alert, and fully oriented, in no acute distress. ENT: NC oxygen LUNGS: Scattered wheezes and rhonchi. HEART: Regular rate and rhythm, S1, S2 ABDOMEN: Soft, nontender, nondistended, normoactive bowel sounds EXTREMITIES: 2+ pulses, warm, well-perfused, no edema. NEUROLOGICAL: Cranial nerves II through XII grossly intact. Normal speech Laboratory Results - last 24 hr 02/09/18 02/10/18 02/10/18 05:00 06:10 06:10 WBC 10.4 H RBC 4.31 Hgb 9.6 L Hct 30.4 L MCV 70.6 L MCH 22.2 L MCHC 31.4 L RDW 16.7 H Plt Count 177 MPV 8.8 Neutrophils % 89.3 H Neutrophils % (Manual) 81.2 Band Neutrophils % 2.1 Lymphocytes % 4.0 L D Lymphocytes % (Manual) 5.2 L Monocytes % 6.1 Monocytes % (Manual) 6 D Eosinophils % 0.2 D Eosinophils % (Manual) 0.0 Basophils % 0.4 Basophils % (Manual) 0.0 Myelocytes % (Man) 2 D Promyelocytes % (Man) 0 Blast Cells % (Manual) 0 Nucleated RBC % 0 0 Metamyelocytes 3 H D Platelet Estimate Normal Target Cells 1+ Tear Drop Cells 1+ Sodium 143 Potassium 4.4 Chloride 103 Carbon Dioxide 35 H Anion Gap 5 L BUN 38 H Creatinine 1.2 H Creat Clearance w eGFR 46.14 Random Glucose 134 H Calcium 8.3 L Phosphorus 3.7 Magnesium 2.2 Total Bilirubin 0.5 D AST 10 L ALT 17 Alkaline Phosphatase 71 Total Protein 6.2 L Albumin 2.5 L Active Medications Generic Name Dose Route Start Last Admin Trade Name Freq PRN Reason Stop Dose Admin Albuterol Sulfate 1 amp 02/06/18 13:18 02/08/18 17:56 Ventolin 0.083% Nebulizer Soln - NEB 1 amp Q1H PRN Administration SOB/Wheezing Albuterol Sulfate 1 amp 02/07/18 10:40 02/09/18 21:20 Ventolin 0.083% Nebulizer Soln - NEB 1 amp Q4H PRN Administration SHORT OF BREATH/WHEEZING Azithromycin 500 mg 02/10/18 10:00 Zithromax - PO 02/11/18 10:01 DAILY [facility] Budesonide/Formoterol Fumarate 2 puff 02/04/18 10:00 02/09/18 21:44 Symbicort 160/4.5mcg - IH Not Given BID [facility] Diltiazem HCl 30 mg 02/06/18 14:00 02/10/18 05:44 Cardizem - PO 30 mg TID [facility] Administration Ferrous Sulfate 325 mg 02/04/18 10:00 02/09/18 09:33 Feosol - PO 325 mg DAILY [facility] Administration Folic Acid 1 mg 02/04/18 10:00 02/09/18 09:33 Folic Acid - PO 1 mg DAILY [facility] Administration Heparin Sodium (Porcine) 5,000 unit 02/04/18 14:00 02/10/18 05:44 Heparin - SQ Not Given TID [facility] Hydroxyzine Pamoate 25 mg 02/04/18 10:00 02/09/18 09:35 Vistaril - PO 25 mg DAILY [facility] Administration Methylprednisolone Sodium Succinate 40 mg 02/10/18 07:46 Solu-Medrol - IVPUSH Q8H-IV [facility] Montelukast Sodium 10 mg 02/06/18 22:00 02/09/18 21:43 Singulair - PO 10 mg HS [facility] Administration Polyethylene Glycol 17 gm 02/05/18 11:15 02/09/18 09:34 Miralax (For Daily Use) - PO 17 gm DAILY [facility] Administration Tiotropium [place] 1 puff 02/07/18 10:45 02/09/18 09:34 Spiriva - IH 1 puff DAILY [facility] Administration Current Medications Albuterol Sulfate (Ventolin 0.083% Nebulizer Soln -) 1 amp NEB Q1H PRN PRN Reason: SOB/Wheezing Last Admin: 02/10/18 08:48 Dose: 1 amp Albuterol Sulfate (Ventolin 0.083% Nebulizer Soln -) 1 amp NEB Q6HPO [facility] Last Admin: 02/10/18 12:00 Dose: 1 amp Azithromycin (Zithromax -) 500 mg PO DAILY [facility] Stop: 02/11/18 10:01 Last Admin: 02/10/18 09:51 Dose: 500 mg Budesonide/Formoterol Fumarate (Symbicort 160/4.5mcg -) 2 puff IH BID [facility] Last Admin: 02/10/18 10:00 Dose: Not Given Diltiazem HCl (Cardizem -) 30 mg PO TID [facility] Last Admin: 02/10/18 05:44 Dose: 30 mg Ferrous Sulfate (Feosol -) 325 mg PO DAILY [facility] Last Admin: 02/10/18 09:51 Dose: 325 mg Folic Acid (Folic Acid -) 1 mg PO DAILY [facility] Last Admin: 02/10/18 09:51 Dose: 1 mg Heparin Sodium (Porcine) (Heparin -) 5,000 unit SQ TID [facility] Last Admin: 02/10/18 05:44 Dose: Not Given Hydroxyzine Pamoate (Vistaril -) 25 mg PO DAILY [facility] Last Admin: 02/10/18 10:17 Dose: 25 mg Methylprednisolone Sodium Succinate (Solu-Medrol -) 40 mg IVPUSH Q8H-IV [facility] Last Admin: 02/10/18 09:52 Dose: 40 mg Montelukast Sodium (Singulair -) 10 mg PO HS [facility] Last Admin: 02/09/18 21:43 Dose: 10 mg Polyethylene Glycol (Miralax (For Daily Use) -) 17 gm PO DAILY [facility] Last Admin: 02/10/18 09:55 Dose: Not Given Tiotropium [place] (Spiriva -) 1 puff IH DAILY [facility] Last Admin: 02/10/18 09:52 Dose: 1 puff ECHO- 02/08/18: Normal ventricular function CT chest: Moderate COPD and bronchiectasis ASSESSMENT/PLAN: 57 yo female with PMHx COPD on 2L NC at home, HTN and iron deficiency anemia presented with SOB and is admitted for bronchitis and COPD exacerbation. Acute COPD exacerbation: methylprednisolone tapered to 40mg Q8H continue Albuterol (Q6H standing, Q1H PRN), Spiriva Appreciate Pulm recommendations Cont azithromycin 500mg daily to stop today Tachycardia: Cardizem 30 PO TID Tachycardia improved Headache: Resolved RAOUL -likely prerenal, baseline appears to be 1.1 -avoid nephrotoxic substances Lactic acidosis resolved Constipation: -continue Miralax HTN controlled Iron deficiency anemia: cont iron supplements DVT ppx hep sq Dispo: Med surg transfer Visit type - Emergency Visit Emergency Visit: Yes ED Registration Date: 02/04/18 Care time: The patient presented to the Emergency Department on the above date and was hospitalized for further evaluation of their emergent condition. - New Patient This patient is new to me today: No - Critical Care Critical Care patient: No - Discharge Referral Referred to [facility] Med P.C.: No
[2018-02-10] MEDS: ALBUTEROL SO4 0.083% IH SOL 2.5 MG/3 ML VIAL.NEB. NEB PRN (08:48)
[2018-02-10] MEDS: FERROUS SO4 325 MG TABLET (FP) PO SCH (09:51)
[2018-02-10] MEDS: FOLIC ACID 1 MG TABLET (FP) PO SCH (09:51)
[2018-02-10] MEDS: AZITHROMYCIN 250 MG TABLET PO SCH (09:51)
[2018-02-10] MEDS: BUDESONIDE/FORMETEROL FUMARATE 160/4.5 mcg INHALER IH SCH ×3 (09:52→21:02)
[2018-02-10] MEDS: TIOTROPIUM BROMIDE 18 MCG CAPSULES IH SCH (09:52)
[2018-02-10] MEDS: POLYETHYLENE GLYCOL 3350 119 GM BTL PO SCH (09:55)
[2018-02-10] MEDS ORDERED: methylPREDNISolone NA SUCC 40 MG/1 ML VIAL IVPUSH SCH (10:00)
[2018-02-10] MEDS: hydrOXYzine PAMOATE 25 MG CAPSULE (FP) PO SCH (10:17)
[2018-02-10] MEDS ORDERED: PT OWN MED DRAWER 7, Y5N ONE (10:17)
[2018-02-10 11:59] LABS: OVALOCYTE 1+; PLATELET ESTIMATE NORMAL; TARGET CELLS 2+
[2018-02-10] MEDS: ALBUTEROL SO4 0.083% IH SOL 2.5 MG/3 ML VIAL.NEB. NEB SCH ×3 (12:00→21:12)
--- NOTE | 2018-02-10 12:13 | PN ---
Progress Note (short form) - Note Progress Note: PULMONARY States breathing better today. +cough with white sputum. No fevers or chills. Last Vital Signs Temp Pulse Resp BP Pulse Ox 98.4 F 83 20 171/94 96 02/10/18 09:00 02/10/18 09:00 02/10/18 09:00 02/10/18 09:00 02/10/18 09:00 Gen: NAD at rest Heart: RRR Lung: basilar rales, rhonchi Abd: soft, nontender Ext: no edema CBC, BMP 02/10/18 06:10 02/10/18 06:10 Active Medications Albuterol Sulfate (Ventolin 0.083% Nebulizer Soln -) 1 amp NEB Q1H PRN PRN Reason: SOB/Wheezing Last Admin: 02/10/18 08:48 Dose: 1 amp Albuterol Sulfate (Ventolin 0.083% Nebulizer Soln -) 1 amp NEB Q6HPO [facility] Azithromycin (Zithromax -) 500 mg PO DAILY [facility] Stop: 02/11/18 10:01 Last Admin: 02/10/18 09:51 Dose: 500 mg Budesonide/Formoterol Fumarate (Symbicort 160/4.5mcg -) 2 puff IH BID [facility] Last Admin: 02/10/18 10:00 Dose: Not Given Diltiazem HCl (Cardizem -) 30 mg PO TID [facility] Last Admin: 02/10/18 05:44 Dose: 30 mg Ferrous Sulfate (Feosol -) 325 mg PO DAILY [facility] Last Admin: 02/10/18 09:51 Dose: 325 mg Folic Acid (Folic Acid -) 1 mg PO DAILY [facility] Last Admin: 02/10/18 09:51 Dose: 1 mg Heparin Sodium (Porcine) (Heparin -) 5,000 unit SQ TID [facility] Last Admin: 02/10/18 05:44 Dose: Not Given Hydroxyzine Pamoate (Vistaril -) 25 mg PO DAILY [facility] Last Admin: 02/10/18 10:17 Dose: 25 mg Methylprednisolone Sodium Succinate (Solu-Medrol -) 40 mg IVPUSH Q8H-IV [facility] Last Admin: 02/10/18 09:52 Dose: 40 mg Montelukast Sodium (Singulair -) 10 mg PO HS [facility] Last Admin: 02/09/18 21:43 Dose: 10 mg Polyethylene Glycol (Miralax (For Daily Use) -) 17 gm PO DAILY [facility] Last Admin: 02/10/18 09:55 Dose: Not Given Tiotropium [place] (Spiriva -) 1 puff IH DAILY [facility] Last Admin: 02/10/18 09:52 Dose: 1 puff A/P Acute COPD/Bronchiectasis Exacerbation Acute Bronchitis Chronic Hypoxic and Hypercapneic Respiratory Failure HTN - medrol taper, can likely change to PO prednisone 40mg daily in AM and taper if continues to improve - inhaled bronchodilators - O2 to keep SpO2 >90% - continue antibiotics - outpt pulmonary rehab - DVT prophylaxis
[2018-02-10] MEDS: methylPREDNISolone NA SUCC 40 MG/1 ML VIAL IVPUSH SCH (16:30)
[2018-02-10] MEDS: MONTELUKAST NA 10 MG TABLET PO SCH (21:01)
[2018-02-11] MEDS: ALBUTEROL SO4 0.083% IH SOL 2.5 MG/3 ML VIAL.NEB. NEB PRN (02:14)
[2018-02-11] MEDS: methylPREDNISolone NA SUCC 40 MG/1 ML VIAL IVPUSH SCH (03:39)
[2018-02-11] MEDS: HEPARIN NA (PORCINE) 5,000 UNITS/ML 1ML VIAL SQ SCH ×3 (06:34→21:50)
[2018-02-11] MEDS: dilTIAZem HCL 30 MG TABLET (FP) PO SCH ×3 (06:34→21:50)
--- NOTE | 2018-02-11 07:16 | PN ---
Physical Exam: SUBJECTIVE: Patient seen and examined. Still dyspneic on mild exertion (going to the bathroom). OBJECTIVE: Vital Signs Period Temp Pulse Resp BP Sys/Echevarria Pulse Ox Last 24 Hr 97.6 F-98.8 F 69-97 20-20 136-171/65-94 96-98 Vital Signs Temp 98.1 F 02/11/18 05:00 Pulse 88 02/11/18 05:00 Resp 20 02/11/18 05:00 BP 136/72 02/11/18 05:00 Pulse Ox 98 02/10/18 21:00 GENERAL: The patient is awake, alert, and fully oriented, on nasal cannular, in some respiratory distress. ENT: moist mucous membranes. LUNGS: Wheezes and creps. Accessory muscle use. HEART: Regular rate and rhythm, S1, S2 without murmur, rub or gallop. ABDOMEN: Soft, nontender, nondistended, normoactive bowel sounds, EXTREMITIES: 2+ pulses, warm, well-perfused, no edema. NEUROLOGICAL: Cranial nerves II through XII grossly intact. Normal speech, gait not observed. Laboratory Results - last 24 hr 02/10/18 02/10/18 06:10 06:10 WBC 10.4 H RBC 4.31 Hgb 9.6 L Hct 30.4 L MCV 70.6 L MCH 22.2 L MCHC 31.4 L RDW 16.7 H Plt Count 177 MPV 8.8 Neutrophils % 89.3 H Neutrophils % (Manual) 89.9 H Band Neutrophils % 2.0 Lymphocytes % 4.0 L D Lymphocytes % (Manual) 5.0 L Monocytes % 6.1 Monocytes % (Manual) 2 L Eosinophils % 0.2 D Eosinophils % (Manual) 0.0 Basophils % 0.4 Basophils % (Manual) 0.0 Myelocytes % (Man) 1 D Promyelocytes % (Man) 0 Blast Cells % (Manual) 0 Nucleated RBC % 0 Hypochromia 1+ Platelet Estimate Normal Polychromasia 1+ Basophilic Stippling 1+ Target Cells 2+ Ovalocytes 1+ Sodium 143 Potassium 4.4 Chloride 103 Carbon Dioxide 35 H Anion Gap 5 L BUN 38 H Creatinine 1.2 H Creat Clearance w eGFR 46.14 Random Glucose 134 H Calcium 8.3 L Phosphorus 3.7 Magnesium 2.2 Total Bilirubin 0.5 D AST 10 L ALT 17 Alkaline Phosphatase 71 Total Protein 6.2 L Albumin 2.5 L Active Medications Generic Name Dose Route Start Last Admin Trade Name Freq PRN Reason Stop Dose Admin Albuterol Sulfate 1 amp 02/06/18 13:18 02/11/18 02:14 Ventolin 0.083% Nebulizer Soln - NEB 1 amp Q1H PRN Administration SOB/Wheezing Albuterol Sulfate 1 amp 02/10/18 20:00 02/10/18 21:12 Ventolin 0.083% Nebulizer Soln - NEB 1 amp RQID ZACHARY Administration Azithromycin 500 mg 02/10/18 10:00 02/10/18 09:51 Zithromax - PO 02/11/18 10:01 500 mg DAILY ZACHARY Administration Budesonide/Formoterol Fumarate 2 puff 02/04/18 10:00 02/10/18 21:02 Symbicort 160/4.5mcg - IH Not Given BID ZACHARY Diltiazem HCl 30 mg 02/06/18 14:00 02/11/18 06:34 Cardizem - PO 30 mg TID ZACHARY Administration Ferrous Sulfate 325 mg 02/04/18 10:00 02/10/18 09:51 Feosol - PO 325 mg DAILY ZACHARY Administration Folic Acid 1 mg 02/04/18 10:00 02/10/18 09:51 Folic Acid - PO 1 mg DAILY ZACHARY Administration Heparin Sodium (Porcine) 5,000 unit 02/04/18 14:00 02/11/18 06:34 Heparin - SQ 5,000 unit TID ZACHARY Administration Hydroxyzine Pamoate 25 mg 02/04/18 10:00 02/10/18 10:17 Vistaril - PO 25 mg DAILY ZACHARY Administration Methylprednisolone Sodium Succinate 40 mg 02/10/18 15:15 02/11/18 03:39 Solu-Medrol - IVPUSH 40 mg Q12H ZACHARY Administration Montelukast Sodium 10 mg 02/06/18 22:00 02/10/18 21:01 Singulair - PO 10 mg HS ZACHARY Administration Polyethylene Glycol 17 gm 02/05/18 11:15 02/10/18 09:55 Miralax (For Daily Use) - PO Not Given DAILY ZACHARY Tiotropium [place] 1 puff 02/07/18 10:45 02/10/18 09:52 Spiriva - IH 1 puff DAILY ZACHARY Administration Current Medications Albuterol Sulfate (Ventolin 0.083% Nebulizer Soln -) 1 amp NEB Q1H PRN PRN Reason: SOB/Wheezing Last Admin: 02/12/18 06:10 Dose: 1 amp Albuterol Sulfate (Ventolin 0.083% Nebulizer Soln -) 1 amp NEB RQID [facility] Last Admin: 02/11/18 20:00 Dose: 1 amp Budesonide/Formoterol Fumarate (Symbicort 160/4.5mcg -) 2 puff IH BID [facility] Last Admin: 02/11/18 21:51 Dose: Not Given Diltiazem HCl (Cardizem -) 30 mg PO TID [facility] Last Admin: 02/12/18 06:40 Dose: 30 mg Ferrous Sulfate (Feosol -) 325 mg PO DAILY [facility] Last Admin: 02/11/18 10:07 Dose: 325 mg Folic Acid (Folic Acid -) 1 mg PO DAILY [facility] Last Admin: 02/11/18 10:07 Dose: 1 mg Heparin Sodium (Porcine) (Heparin -) 5,000 unit SQ TID [facility] Last Admin: 02/12/18 06:40 Dose: 5,000 unit Hydroxyzine Pamoate (Vistaril -) 25 mg PO DAILY [facility] Last Admin: 02/11/18 10:08 Dose: 25 mg Montelukast Sodium (Singulair -) 10 mg PO HS [facility] Last Admin: 02/11/18 21:50 Dose: 10 mg Polyethylene Glycol (Miralax (For Daily Use) -) 17 gm PO DAILY [facility] Last Admin: 02/11/18 11:44 Dose: 17 gm Prednisone (Deltasone -) 60 mg PO DAILY [facility] Last Admin: 02/11/18 10:07 Dose: 60 mg Tiotropium [place] (Spiriva -) 1 puff IH DAILY [facility] Last Admin: 02/11/18 10:09 Dose: 1 puff ECHO- 02/08/18: Normal ventricular function CT chest: Moderate COPD and bronchiectasis ASSESSMENT/PLAN: 57 yo female with PMHx COPD on 2L NC at home, HTN and iron deficiency anemia presented with SOB and is admitted for bronchitis and COPD exacerbation. Acute COPD exacerbation: On PO prednisone 60mg daily continue Albuterol (Q6H standing, Q1H PRN), Spiriva Appreciate Pulm recommendations Cont singulair Tachycardia: Cardizem 30 PO TID Tachycardia resolved Headache: Resolved RAOUL -likely prerenal, baseline appears to be 1.1 -avoid nephrotoxic substances -Stable Lactic acidosis resolved Constipation: -continue Miralax HTN Cardizem 30 PO TID controlled Iron deficiency anemia: cont iron supplements DVT ppx hep sq Dispo: For likely Dc tomorrow Visit type - Emergency Visit Emergency Visit: Yes ED Registration Date: 02/04/18 Care time: The patient presented to the Emergency Department on the above date and was hospitalized for further evaluation of their emergent condition. - New Patient This patient is new to me today: No - Critical Care Critical Care patient: No - Discharge Referral Referred to [facility] No
[2018-02-11 07:33] LABS: HEMATOCRIT 31.4 % (32.4-45.2); HEMOGLOBIN 9.7 GM/dL (10.7-15.3); MCH 22.2 pg (25.7-33.7); MEAN CELL VOLUME 71.8 fl (80-96); PLATELET COUNT 169 K/MM3 (134-434); RBC 4.38 M/mm3 (3.60-5.2); WHITE BLOOD COUNT 9.6 K/mm3 (4.0-10.0)
[2018-02-11 08:10] LABS: CHLORIDE 105 mmol/L (98-107); POTASSIUM 4.8 mmol/L (3.5-5.1); SODIUM 144 mmol/L (136-145)
[2018-02-11] MEDS: ALBUTEROL SO4 0.083% IH SOL 2.5 MG/3 ML VIAL.NEB. NEB SCH ×4 (08:27→20:00)
[2018-02-11 08:42] LABS: ALBUMIN 2.4 g/dl (3.4-5.0); ALK PHOS 76 U/L (45-117); ANION GAP 7 (8-16); BILIRUBIN,TOTAL 0.4 mg/dL (0.2-1.0); BLOOD UREA NITROGEN 36 mg/dL (7-18); CALCIUM 8.2 mg/dL (8.5-10.1); CO2 32 mmol/L (21-32); CREATININE 1.2 mg/dL (0.55-1.02); GLUCOSE,RANDOM 128 mg/dL (74-106); MAGNESIUM 2.3 mg/dL (1.8-2.4); PHOSPHOROUS 4.2 mg/dL (2.5-4.9); SGOT/AST 11 U/L (15-37); SGPT/ALT 19 U/L (12-78); TOT PROT 6.2 g/dl (6.4-8.2)
[2018-02-11] MEDS ORDERED: PT OWN MED DRAWER 7, Y5N ONE (08:54)
[2018-02-11 09:42] LABS: BASO % 0.4 % (0-2.0); MONO % 11.2 % (3.8-10.2); NEUT % 85.4 % (42.8-82.8)
[2018-02-11] MEDS ORDERED: predniSONE 20 MG TABLET (UD) PO SCH (10:00)
[2018-02-11] MEDS: FOLIC ACID 1 MG TABLET (FP) PO SCH (10:07)
[2018-02-11] MEDS: AZITHROMYCIN 250 MG TABLET PO SCH (10:07)
[2018-02-11] MEDS: predniSONE 20 MG TABLET (UD) PO SCH (10:07)
[2018-02-11] MEDS: FERROUS SO4 325 MG TABLET (FP) PO SCH (10:07)
[2018-02-11] MEDS: hydrOXYzine PAMOATE 25 MG CAPSULE (FP) PO SCH (10:08)
[2018-02-11] MEDS: TIOTROPIUM BROMIDE 18 MCG CAPSULES IH SCH (10:09)
[2018-02-11] MEDS: BUDESONIDE/FORMETEROL FUMARATE 160/4.5 mcg INHALER IH SCH ×2 (10:09→21:51)
--- NOTE | 2018-02-11 10:58 | PN ---
Progress Note, Physician History of Present Illness: PULMONARY ALERT,STILL CONGESTED,+HILL,+COUGH - Current Medication List Current Medications: Active Medications Albuterol Sulfate (Ventolin 0.083% Nebulizer Soln -) 1 amp NEB Q1H PRN PRN Reason: SOB/Wheezing Last Admin: 02/11/18 02:14 Dose: 1 amp Albuterol Sulfate (Ventolin 0.083% Nebulizer Soln -) 1 amp NEB RQID [facility] Last Admin: 02/11/18 08:27 Dose: 1 amp Budesonide/Formoterol Fumarate (Symbicort 160/4.5mcg -) 2 puff IH BID [facility] Last Admin: 02/11/18 10:09 Dose: Not Given Diltiazem HCl (Cardizem -) 30 mg PO TID [facility] Last Admin: 02/11/18 06:34 Dose: 30 mg Ferrous Sulfate (Feosol -) 325 mg PO DAILY [facility] Last Admin: 02/11/18 10:07 Dose: 325 mg Folic Acid (Folic Acid -) 1 mg PO DAILY [facility] Last Admin: 02/11/18 10:07 Dose: 1 mg Heparin Sodium (Porcine) (Heparin -) 5,000 unit SQ TID [facility] Last Admin: 02/11/18 06:34 Dose: 5,000 unit Hydroxyzine Pamoate (Vistaril -) 25 mg PO DAILY [facility] Last Admin: 02/11/18 10:08 Dose: 25 mg Montelukast Sodium (Singulair -) 10 mg PO HS [facility] Last Admin: 02/10/18 21:01 Dose: 10 mg Polyethylene Glycol (Miralax (For Daily Use) -) 17 gm PO DAILY [facility] Last Admin: 02/10/18 09:55 Dose: Not Given Prednisone (Deltasone -) 60 mg PO DAILY [facility] Last Admin: 02/11/18 10:07 Dose: 60 mg Tiotropium [place] (Spiriva -) 1 puff IH DAILY [facility] Last Admin: 02/11/18 10:09 Dose: 1 puff - Objective Vital Signs: Vital Signs Temperature 98 F 02/11/18 09:00 Pulse Rate 72 02/11/18 09:00 Respiratory Rate 18 02/11/18 09:00 Blood Pressure 144/78 02/11/18 09:00 O2 Sat by Pulse Oximetry (%) 98 02/10/18 21:00 Constitutional: Yes: Well Nourished, Calm Eyes: Yes: WNL HENT: Yes: WNL Neck: Yes: WNL Cardiovascular: Yes: Regular Rate and Rhythm, S1, S2 Respiratory: Yes: Wheezes (BILATERAL WHEEZES) Gastrointestinal: Yes: Normal Bowel Sounds, Soft Extremities: Yes: WNL Edema: No Labs: CBC, BMP 02/11/18 06:58 02/11/18 06:58 INR, PTT INR 1.11 (0.82-1.09) 02/04/18 03:22 Assessment/Plan A/E COPD O2 DEPENDENT HYPERCAPNEIC RESP FAILURE IMPROVING EXTENSIVE BRONCHIECTASIS ACUTE BRONCHITIS ELEVATED LACTIC ACID HTN O2 INHALED BRONCHODILATORS STEROIDS ANTIBIOTICS SINGULAIR BP CONTROL DVT PROPHYLAXIS CHEST PT OUTPATIENT PULMONARY REHAB DR SMITH Problem List - Problems (1) COPD exacerbation Code(s): J44.1 - CHRONIC OBSTRUCTIVE PULMONARY DISEASE W (ACUTE) EXACERBATION (2) Acute bronchitis Code(s): J20.9 - ACUTE BRONCHITIS, UNSPECIFIED Qualifiers: Bronchitis organism: unspecified organism Qualified Code(s): J20.9 - Acute bronchitis, unspecified (3) Acute on chronic respiratory failure with hypoxia and hypercapnia Code(s): J96.21 - ACUTE AND CHRONIC RESPIRATORY FAILURE WITH HYPOXIA; J96.22 - ACUTE AND CHRONIC RESPIRATORY FAILURE WITH HYPERCAPNIA (4) Chest pain Code(s): R07.9 - CHEST PAIN, UNSPECIFIED
[2018-02-11] MEDS ORDERED: ALBUTEROL SO4 0.083% IH SOL 2.5 MG/3 ML VIAL.NEB. NEB ONE (11:10)
[2018-02-11] MEDS: POLYETHYLENE GLYCOL 3350 119 GM BTL PO SCH (11:44)
--- NOTE | 2018-02-11 12:14 | PN ---
Teaching Attending Note Name of Resident: Lanette Hook ATTENDING PHYSICIAN STATEMENT I saw and evaluated the patient. I reviewed the resident's note and discussed the case with the resident. I agree with the resident's findings and plan as documented with exceptions below. SUBJECTIVE: Patient seen and examined. still with some dyspnea, more with any activity or exertion. OBJECTIVE: Vital Signs Period Temp Pulse Resp BP Sys/Echevarria Pulse Ox Last 24 Hr 97.6 F-98.8 F 69-97 18-20 136-156/65-79 98 Intake & Output 02/08/18 02/09/18 02/10/18 02/11/18 23:59 23:59 23:59 23:59 Intake Total 1320 1130 1310 210 Balance 1320 1130 1310 210 General: mild tachypnea but able to speak in full sentences Chest: bilateral fine rales with scattered wheezing, positive air entry. Home Medication List Medication Instructions Recorded Confirmed Type Albuterol 0.083% Nebulizer [place] 1 neb NEB Q4H 12/05/17 02/04/18 History [Ventolin 0.083% Nebulizer Soln -] Cholecalciferol (Vitamin D3) 50,000 unit PO WEEKLY 12/05/17 02/04/18 History [Vitamin D -] Hydrochlorothiazide 25 mg PO DAILY 12/05/17 02/04/18 History Hydroxyzine Pamoate 25 mg PO DAILY 12/05/17 02/04/18 History Ferrous Sulfate [Feosol] 325 mg PO DAILY 02/04/18 02/04/18 History Fluticasone/Salmeterol [Advair 02/04/18 History 250-50 Diskus] Folic Acid 1 mg PO DAILY 02/04/18 02/04/18 History Umeclidinium [place] [Incruse 62.5 mcg IH DAILY 02/04/18 02/04/18 History Ellipta] Active Medications Generic Name Dose Route Start Last Admin Trade Name Freq PRN Reason Stop Dose Admin Albuterol Sulfate 1 amp 02/06/18 13:18 02/11/18 02:14 Ventolin 0.083% Nebulizer Soln - NEB 1 amp Q1H PRN Administration SOB/Wheezing Albuterol Sulfate 1 amp 02/10/18 20:00 02/11/18 11:39 Ventolin 0.083% Nebulizer Soln - NEB Not Given RQID ZACHARY Budesonide/Formoterol Fumarate 2 puff 02/04/18 10:00 02/11/18 10:09 Symbicort 160/4.5mcg - IH Not Given BID ZACHARY Diltiazem HCl 30 mg 02/06/18 14:00 02/11/18 06:34 Cardizem - PO 30 mg TID ZACHARY Administration Ferrous Sulfate 325 mg 02/04/18 10:00 02/11/18 10:07 Feosol - PO 325 mg DAILY ZACHARY Administration Folic Acid 1 mg 02/04/18 10:00 02/11/18 10:07 Folic Acid - PO 1 mg DAILY ZACHARY Administration Heparin Sodium (Porcine) 5,000 unit 02/04/18 14:00 02/11/18 06:34 Heparin - SQ 5,000 unit TID ZACHARY Administration Hydroxyzine Pamoate 25 mg 02/04/18 10:00 02/11/18 10:08 Vistaril - PO 25 mg DAILY ZACHARY Administration Montelukast Sodium 10 mg 02/06/18 22:00 02/10/18 21:01 Singulair - PO 10 mg HS ZACHARY Administration Polyethylene Glycol 17 gm 02/05/18 11:15 02/11/18 11:44 Miralax (For Daily Use) - PO 17 gm DAILY ZACHARY Administration Prednisone 60 mg 02/11/18 10:00 02/11/18 10:07 Deltasone - PO 60 mg DAILY ZACHARY Administration Tiotropium [place] 1 puff 02/07/18 10:45 02/11/18 10:09 Spiriva - IH 1 puff DAILY ZACHARY Administration Laboratory Results - last 24 hr 02/10/18 02/11/18 02/11/18 06:10 06:58 06:58 WBC 9.6 RBC 4.38 Hgb 9.7 L Hct 31.4 L MCV 71.8 L MCH 22.2 L MCHC 31.0 L RDW 17.0 H Plt Count 169 MPV 9.0 Neutrophils % 85.4 H Neutrophils % (Manual) 89.9 H Band Neutrophils % 2.0 Lymphocytes % 3.0 L D Lymphocytes % (Manual) 5.0 L Monocytes % 11.2 H D Monocytes % (Manual) 2 L Eosinophils % 0.0 D Eosinophils % (Manual) 0.0 Basophils % 0.4 Basophils % (Manual) 0.0 Myelocytes % (Man) 1 D Promyelocytes % (Man) 0 Blast Cells % (Manual) 0 Nucleated RBC % 0 Hypochromia 1+ Platelet Estimate Normal Polychromasia 1+ Basophilic Stippling 1+ Target Cells 2+ Ovalocytes 1+ Sodium 144 Potassium 4.8 Chloride 105 Carbon Dioxide 32 Anion Gap 7 L BUN 36 H Creatinine 1.2 H Creat Clearance w eGFR 46.14 Random Glucose 128 H Calcium 8.2 L Phosphorus 4.2 Magnesium 2.3 Total Bilirubin 0.4 AST 11 L ALT 19 Alkaline Phosphatase 76 Total Protein 6.2 L Albumin 2.4 L CXr repeat reviewed, unchanged ASSESSMENT AND PLAN: 57yo F wtih PMH COPD on 2L NC at home, HTN and iron deficiency anemia presented to the Er with SOB x1 month -Acute COPD Exacerbation/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 Repeat CXR noted. Repeat nebs treatment, Prednisone 60 mg this AM. Reassess later if improved. s/p 5 days of ceftriaxone, CT chest with no clinical evidence of PNA. Azithromycin day 5/5 Pulmonary input noted. Chest PT. Renal function/WBC stable. Abdominal xray retained stool, no concerns, bowel regimen for now. COntinue PO Fe. Continue diltiazem, titrate up as needed. Hold off for as suspect elevated BP/ HR from her dyspnea and nebs. DVTPPx with heparin PT eval noted. Home oxgen s needs assessment, is on 3L home oxygen Dispo planning, based on clinical assessment later today, home with services if improved on gradual steroid taper. Plan discussed with patient in detail, all questions answered.
[2018-02-11] MEDS: MONTELUKAST NA 10 MG TABLET PO SCH (21:50)
[2018-02-12] MEDS: ALBUTEROL SO4 0.083% IH SOL 2.5 MG/3 ML VIAL.NEB. NEB PRN (06:10)
[2018-02-12] MEDS: dilTIAZem HCL 30 MG TABLET (FP) PO SCH ×2 (06:40→14:14)
[2018-02-12] MEDS: HEPARIN NA (PORCINE) 5,000 UNITS/ML 1ML VIAL SQ SCH ×2 (06:40→14:15)
[2018-02-12 07:35] LABS: HEMATOCRIT 30.3 % (32.4-45.2); HEMOGLOBIN 9.4 GM/dL (10.7-15.3); LYMPH % 38.3 % (8-40); MCH 22.2 pg (25.7-33.7); MCHC 31.1 g/dl (32.0-36.0); MEAN CELL VOLUME 71.4 fl (80-96); MEAN PLT VOLUME 8.6 fl (7.5-11.1); MONO % 3.8 % (3.8-10.2); NEUT % 56.9 % (42.8-82.8); PLATELET COUNT 150 K/MM3 (134-434); RBC 4.24 M/mm3 (3.60-5.2); RDW 16.5 % (11.6-15.6); WHITE BLOOD COUNT 11.7 K/mm3 (4.0-10.0)
[2018-02-12 07:50] LABS: CHLORIDE 104 mmol/L (98-107); POTASSIUM 4.9 mmol/L (3.5-5.1); SODIUM 143 mmol/L (136-145)
[2018-02-12] MEDS: ALBUTEROL SO4 0.083% IH SOL 2.5 MG/3 ML VIAL.NEB. NEB SCH ×3 (08:00→15:43)
[2018-02-12 08:03] LABS: ALBUMIN 2.3 g/dl (3.4-5.0); ALK PHOS 71 U/L (45-117); ANION GAP 4 (8-16); BILIRUBIN,TOTAL 0.4 mg/dL (0.2-1.0); BLOOD UREA NITROGEN 37 mg/dL (7-18); CALCIUM 8.1 mg/dL (8.5-10.1); CO2 35 mmol/L (21-32); CREATININE 1.1 mg/dL (0.55-1.02); GLUCOSE,RANDOM 92 mg/dL (74-106); MAGNESIUM 2.4 mg/dL (1.8-2.4); PHOSPHOROUS 3.2 mg/dL (2.5-4.9); SGOT/AST 13 U/L (15-37); SGPT/ALT 23 U/L (12-78); TOT PROT 5.8 g/dl (6.4-8.2)
--- NOTE | 2018-02-12 08:35 | PN ---
Physical Exam: SUBJECTIVE: Patient seen and examined. Pt still feels SOB on exertion. No fevers overnight. OBJECTIVE: Vital Signs Period Temp Pulse Resp BP Sys/Echevarria Pulse Ox Last 24 Hr 98 F-98.4 F 66-85 18-18 141-155/65-78 93-98 Vital Signs Temp 98.2 F 02/12/18 06:00 Pulse 76 02/12/18 06:00 Resp 18 02/12/18 06:00 BP 153/75 02/12/18 06:00 Pulse Ox 95 02/11/18 21:00 GENERAL: The patient is awake, alert, and fully oriented, NC-l, with accessory muscle use. LUNGS: scattered Wheezes and crackles. HEART: Regular rate and rhythm, S1, S2 ABDOMEN: Soft, nontender, nondistended, normoactive bowel sounds, no guarding, no rebound, no hepatosplenomegaly, no masses. EXTREMITIES: 2+ pulses, warm, well-perfused, no edema. NEUROLOGICAL: Cranial nerves II through XII grossly intact. Normal speech CBC, BMP 02/12/18 06:56 Laboratory Results - last 24 hr 02/11/18 02/11/18 02/12/18 06:58 06:58 06:56 WBC 11.7 H RBC 4.24 Hgb 9.4 L Hct 30.3 L MCV 71.4 L MCH 22.2 L MCHC 31.1 L RDW 16.5 H Plt Count 150 MPV 8.6 Neutrophils % 85.4 H 56.9 D Lymphocytes % 3.0 L D 38.3 D Monocytes % 11.2 H D 3.8 Eosinophils % 0.0 D 0.0 Basophils % 0.4 1.0 Nucleated RBC % 0 Carbon Dioxide 32 Anion Gap 7 L BUN 36 H Creatinine 1.2 H Creat Clearance w eGFR 46.14 Random Glucose 128 H Calcium 8.2 L Phosphorus 4.2 Magnesium 2.3 Total Bilirubin 0.4 AST 11 L ALT 19 Alkaline Phosphatase 76 Total Protein 6.2 L Albumin 2.4 L Active Medications Generic Name Dose Route Start Last Admin Trade Name Freq PRN Reason Stop Dose Admin Albuterol Sulfate 1 amp 02/06/18 13:18 02/12/18 06:10 Ventolin 0.083% Nebulizer Soln - NEB 1 amp Q1H PRN Administration SOB/Wheezing Albuterol Sulfate 1 amp 02/10/18 20:00 02/11/18 20:00 Ventolin 0.083% Nebulizer Soln - NEB 1 amp RQID ZACHARY Administration Budesonide/Formoterol Fumarate 2 puff 02/04/18 10:00 02/11/18 21:51 Symbicort 160/4.5mcg - IH Not Given BID ZACHARY Diltiazem HCl 30 mg 02/06/18 14:00 02/12/18 06:40 Cardizem - PO 30 mg TID ZACHARY Administration Ferrous Sulfate 325 mg 02/04/18 10:00 02/11/18 10:07 Feosol - PO 325 mg DAILY ZACHARY Administration Folic Acid 1 mg 02/04/18 10:00 02/11/18 10:07 Folic Acid - PO 1 mg DAILY ZACHARY Administration Heparin Sodium (Porcine) 5,000 unit 02/04/18 14:00 02/12/18 06:40 Heparin - SQ 5,000 unit TID ZACHARY Administration Hydroxyzine Pamoate 25 mg 02/04/18 10:00 02/11/18 10:08 Vistaril - PO 25 mg DAILY ZACHARY Administration Montelukast Sodium 10 mg 02/06/18 22:00 02/11/18 21:50 Singulair - PO 10 mg HS ZACHARY Administration Polyethylene Glycol 17 gm 02/05/18 11:15 02/11/18 11:44 Miralax (For Daily Use) - PO 17 gm DAILY ZACHARY Administration Prednisone 60 mg 02/11/18 10:00 02/11/18 10:07 Deltasone - PO 60 mg DAILY ZACHARY Administration Tiotropium [place] 1 puff 02/07/18 10:45 02/11/18 10:09 Spiriva - IH 1 puff DAILY ZACHARY Administration ECHO- 02/08/18: Normal ventricular function CT chest: Moderate COPD and bronchiectasis ASSESSMENT/PLAN: 57 yo female with PMHx COPD on 2L NC at home, HTN and iron deficiency anemia presented with SOB and is admitted for bronchitis and COPD exacerbation. Acute COPD exacerbation: On PO prednisone 60mg daily continue Albuterol (Q6H standing, Q1H PRN), Spiriva Appreciate Pulm recommendations Cont singulair D/w pt about her bronchiectasis at baseline with superimposed COPD Tachycardia: Cardizem 30 PO TID Tachycardia resolved Headache: Resolved RAOUL -likely prerenal, baseline appears to be 1.1 -avoid nephrotoxic substances -Stable Lactic acidosis resolved Constipation: -continue Miralax HTN Cardizem 30 PO TID controlled Iron deficiency anemia: cont iron supplements DVT ppx hep sq Dispo:
--- NOTE | 2018-02-12 08:49 | PN ---
Teaching Attending Note Name of Resident: Lanette Hook ATTENDING PHYSICIAN STATEMENT I saw and evaluated the patient. I reviewed the resident's note and discussed the case with the resident. I agree with the resident's findings and plan as documented with exceptions below. SUBJECTIVE: Patient seen and examined. Breathing improved, still with dyspnea with exertion but not far from her baseline, no new complaints. OBJECTIVE: Vital Signs Period Temp Pulse Resp BP Sys/Echevarria Pulse Ox Last 24 Hr 98 F-98.4 F 66-85 18-18 141-155/65-78 93-98 Intake & Output 02/09/18 02/10/18 02/11/18 02/12/18 23:59 23:59 23:59 23:59 Intake Total 1130 1310 210 Balance 1130 1310 210 General: lying in bed no acute distress, mild tachypneia but able to speak in full sentences Chest: improved air entry, decreased wheezing Extremities: no edema Home Medication List Medication Instructions Recorded Confirmed Type Albuterol 0.083% Nebulizer [place] 1 neb NEB Q4H 12/05/17 02/04/18 History [Ventolin 0.083% Nebulizer Soln -] Cholecalciferol (Vitamin D3) 50,000 unit PO WEEKLY 12/05/17 02/04/18 History [Vitamin D -] Hydrochlorothiazide 25 mg PO DAILY 12/05/17 02/04/18 History Hydroxyzine Pamoate 25 mg PO DAILY 12/05/17 02/04/18 History Ferrous Sulfate [Feosol] 325 mg PO DAILY 02/04/18 02/04/18 History Fluticasone/Salmeterol [Advair 02/04/18 History 250-50 Diskus] Folic Acid 1 mg PO DAILY 02/04/18 02/04/18 History Umeclidinium [place] [Incruse 62.5 mcg IH DAILY 02/04/18 02/04/18 History Ellipta] Active Medications Generic Name Dose Route Start Last Admin Trade Name Freq PRN Reason Stop Dose Admin Albuterol Sulfate 1 amp 02/06/18 13:18 02/12/18 06:10 Ventolin 0.083% Nebulizer Soln - NEB 1 amp Q1H PRN Administration SOB/Wheezing Albuterol Sulfate 1 amp 02/10/18 20:00 02/11/18 20:00 Ventolin 0.083% Nebulizer Soln - NEB 1 amp RQID ZACHARY Administration Budesonide/Formoterol Fumarate 2 puff 02/04/18 10:00 02/11/18 21:51 Symbicort 160/4.5mcg - IH Not Given BID ZACHARY Diltiazem HCl 30 mg 02/06/18 14:00 02/12/18 06:40 Cardizem - PO 30 mg TID ZACHARY Administration Ferrous Sulfate 325 mg 02/04/18 10:00 02/11/18 10:07 Feosol - PO 325 mg DAILY ZACHARY Administration Folic Acid 1 mg 02/04/18 10:00 02/11/18 10:07 Folic Acid - PO 1 mg DAILY ZACHARY Administration Heparin Sodium (Porcine) 5,000 unit 02/04/18 14:00 02/12/18 06:40 Heparin - SQ 5,000 unit TID ZACHARY Administration Hydroxyzine Pamoate 25 mg 02/04/18 10:00 02/11/18 10:08 Vistaril - PO 25 mg DAILY ZACHARY Administration Montelukast Sodium 10 mg 02/06/18 22:00 02/11/18 21:50 Singulair - PO 10 mg HS ZACHARY Administration Polyethylene Glycol 17 gm 02/05/18 11:15 02/11/18 11:44 Miralax (For Daily Use) - PO 17 gm DAILY ZACHARY Administration Prednisone 60 mg 02/11/18 10:00 02/11/18 10:07 Deltasone - PO 60 mg DAILY ZACHARY Administration Tiotropium [place] 1 puff 02/07/18 10:45 02/11/18 10:09 Spiriva - IH 1 puff DAILY ZACHARY Administration Laboratory Results - last 24 hr 02/11/18 02/12/18 02/12/18 06:58 06:56 06:56 WBC 11.7 H RBC 4.24 Hgb 9.4 L Hct 30.3 L MCV 71.4 L MCH 22.2 L MCHC 31.1 L RDW 16.5 H Plt Count 150 MPV 8.6 Neutrophils % 85.4 H 56.9 D Lymphocytes % 3.0 L D 38.3 D Monocytes % 11.2 H D 3.8 Eosinophils % 0.0 D 0.0 Basophils % 0.4 1.0 Nucleated RBC % 0 Sodium 143 Potassium 4.9 Chloride 104 Carbon Dioxide 35 H Anion Gap 4 L BUN 37 H Creatinine 1.1 H Creat Clearance w eGFR 51.02 Random Glucose 92 Calcium 8.1 L Phosphorus 3.2 Magnesium 2.4 Total Bilirubin 0.4 AST 13 L ALT 23 Alkaline Phosphatase 71 Total Protein 5.8 L Albumin 2.3 L Microbiology 02/04/18 03:22 Blood - Peripheral Venous Blood Culture - Final NO GROWTH AFTER 5 DAYS INCUBATION 02/04/18 03:22 Blood - Peripheral Venous Blood Culture - Final NO GROWTH AFTER 5 DAYS INCUBATION 02/06/18 12:35 Urine - Urine Clean Catch Urine Culture - Final 02/04/18 06:11 Urine - Urine Clean Catch Urine Culture - Final Contaminated: Please Repeat ASSESSMENT AND PLAN: 57yo F wtih PMH COPD on 2L NC at home, HTN and iron deficiency anemia presented to the Er with SOB x1 month -Acute COPD Exacerbation/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 Prednisone 60 mg daily with slow taper. standing and prn nebs at home. Home oxygen needs noted, discussed iwth patient. s/p 5 days of ceftriaxone, CT chest with no clinical evidence of PNA. Azithromycin day 5/5 Pulmonary input noted. Chest PT. Renal function/WBC stable. Abdominal xray retained stool, no concerns, bowel regimen for now. COntinue PO Fe. Continue diltiazem on dc DVTPPx with heparin PT eval noted. dc home today with slow prednisone taper. Discussed in detail with patient about her emphysema and bronchiectasis and high risk for recurrent exacerbations and encouraged to continue with smoking cessation. Plan discussed with patient in detail, all questions answered.
--- NOTE | 2018-02-12 09:10 | PN ---
Progress Note (short form) - Note Progress Note: PULMONARY Breathing continues to improve. +cough with white sputum. No fevers or chills. Last Vital Signs Temp Pulse Resp BP Pulse Ox 98.2 F 76 18 153/75 95 02/12/18 06:00 02/12/18 06:00 02/12/18 06:00 02/12/18 06:00 02/11/18 21:00 Gen: NAD at rest Heart: RRR Lung: basilar rales, rhonchi Abd: soft, nontender Ext: no edema CBC, BMP 02/12/18 06:56 02/12/18 06:56 Active Medications Albuterol Sulfate (Ventolin 0.083% Nebulizer Soln -) 1 amp NEB Q1H PRN PRN Reason: SOB/Wheezing Last Admin: 02/12/18 06:10 Dose: 1 amp Albuterol Sulfate (Ventolin 0.083% Nebulizer Soln -) 1 amp NEB RQID [facility] Last Admin: 02/11/18 20:00 Dose: 1 amp Budesonide/Formoterol Fumarate (Symbicort 160/4.5mcg -) 2 puff IH BID [facility] Last Admin: 02/11/18 21:51 Dose: Not Given Diltiazem HCl (Cardizem -) 30 mg PO TID [facility] Last Admin: 02/12/18 06:40 Dose: 30 mg Ferrous Sulfate (Feosol -) 325 mg PO DAILY [facility] Last Admin: 02/11/18 10:07 Dose: 325 mg Folic Acid (Folic Acid -) 1 mg PO DAILY [facility] Last Admin: 02/11/18 10:07 Dose: 1 mg Heparin Sodium (Porcine) (Heparin -) 5,000 unit SQ TID [facility] Last Admin: 02/12/18 06:40 Dose: 5,000 unit Hydroxyzine Pamoate (Vistaril -) 25 mg PO DAILY [facility] Last Admin: 02/11/18 10:08 Dose: 25 mg Montelukast Sodium (Singulair -) 10 mg PO HS [facility] Last Admin: 02/11/18 21:50 Dose: 10 mg Polyethylene Glycol (Miralax (For Daily Use) -) 17 gm PO DAILY [facility] Last Admin: 02/11/18 11:44 Dose: 17 gm Prednisone (Deltasone -) 60 mg PO DAILY [facility] Last Admin: 02/11/18 10:07 Dose: 60 mg Tiotropium [place] (Spiriva -) 1 puff IH DAILY [facility] Last Admin: 02/11/18 10:09 Dose: 1 puff A/P Acute COPD/Bronchiectasis Exacerbation Acute Bronchitis Chronic Hypoxic and Hypercapneic Respiratory Failure HTN - agree with prednisone, can taper as outpt - inhaled bronchodilators - O2 to keep SpO2 >90% - continue antibiotics - outpt pulmonary rehab - DVT prophylaxis - can d/c home from pulmonary standpoint
[2018-02-12] MEDS: POLYETHYLENE GLYCOL 3350 119 GM BTL PO SCH (09:31)
[2018-02-12] MEDS: FERROUS SO4 325 MG TABLET (FP) PO SCH (09:31)
[2018-02-12] MEDS: FOLIC ACID 1 MG TABLET (FP) PO SCH (09:31)
[2018-02-12] MEDS: predniSONE 20 MG TABLET (UD) PO SCH (09:31)
[2018-02-12] MEDS: BUDESONIDE/FORMETEROL FUMARATE 160/4.5 mcg INHALER IH SCH (09:32)
[2018-02-12] MEDS: hydrOXYzine PAMOATE 25 MG CAPSULE (FP) PO SCH (09:32)
[2018-02-12] MEDS: TIOTROPIUM BROMIDE 18 MCG CAPSULES IH SCH (09:32)
[2018-02-12 09:51] VITALS: PULSE 72
--- NOTE | 2018-02-12 10:04 | DS ---
Physical Exam: SUBJECTIVE: Patient seen and examined.Pt still feels SOB on exertion. No fevers overnight. OBJECTIVE: Vital Signs Period Temp Pulse Resp BP Sys/Echevarria Pulse Ox Last 24 Hr 97.8 F-98.4 F 66-85 - 120-155/65-75 93-95 Vital Signs Temp 97.8 F 02/12/18 09:50 Pulse 72 02/12/18 09:50 Resp 22 02/12/18 09:50 BP 120/65 02/12/18 09:50 Pulse Ox 98 02/12/18 09:00 PHYSICAL EXAM GENERAL: The patient is awake, alert, and fully oriented, NC-l, with accessory muscle use. LUNGS: scattered Wheezes and crackles. HEART: Regular rate and rhythm, S1, S2 ABDOMEN: Soft, nontender, nondistended, normoactive bowel sounds, no guarding, no rebound, no hepatosplenomegaly, no masses. EXTREMITIES: 2+ pulses, warm, well-perfused, no edema. NEUROLOGICAL: Cranial nerves II through XII grossly intact. Normal speech LABS Laboratory Results - last 24 hr 02/12/18 02/12/18 06:56 06:56 WBC 11.7 H RBC 4.24 Hgb 9.4 L Hct 30.3 L MCV 71.4 L MCH 22.2 L MCHC 31.1 L RDW 16.5 H Plt Count 150 MPV 8.6 Neutrophils % 56.9 D Lymphocytes % 38.3 D Monocytes % 3.8 Eosinophils % 0.0 Basophils % 1.0 Nucleated RBC % 0 Sodium 143 Potassium 4.9 Chloride 104 Carbon Dioxide 35 H Anion Gap 4 L BUN 37 H Creatinine 1.1 H Creat Clearance w eGFR 51.02 Random Glucose 92 Calcium 8.1 L Phosphorus 3.2 Magnesium 2.4 Total Bilirubin 0.4 AST 13 L ALT 23 Alkaline Phosphatase 71 Total Protein 5.8 L Albumin 2.3 L ECHO- 02/08/18: Normal ventricular function CT chest: Moderate COPD and bronchiectasis HOSPITAL COURSE: Date of Admission:02/04/18 Date of Discharge: 02/12/18 Prehospital course: 57 yo female with PMHx COPD on 2L NC at home, HTN and iron deficiency anemia presented with SOB and is admitted for bronchitis and COPD exacerbation. Acute COPD exacerbation: Pt was placed on tapered intravenous solumed then changed to tapered PO prednisone 60mg x3 days 50mg x3 days 40mg x3 days 30mg x3 days 20mg x3 days 10mg x3 days She was put resumed on nebulizers, and spiriva added, for pulmonary follow up with Dr Munguia. To continue home oxygen at 3L. Tachycardia/HTN/ RAOUL: Pt came in with RAOUL at 1.3, (1.1 baseline) and tachycardia so her hyddrochlorothiazide was discontinued and she was placed on Cardizem 30 PO TID. She was discharged at 1.1. Constipation: Pt came in constipated. There was no evidence of bowel obstruction. She was put on Miralax and is being discharged on a 5 day PRN dose. Iron deficiency anemia: Pt was on home iron supplements which she will continue. Minutes to complete discharge: 40 Discharge Summary Reason For Visit: OBSTRUCTIVE CHRONIC BRONCHITIS Current Active Problems Acute on chronic respiratory failure with hypoxia and hypercapnia (Acute) COPD exacerbation (Acute) Bronchiectasis (Chronic) COPD (chronic obstructive pulmonary disease) (Chronic) Hypertension (Chronic) Supplemental oxygen dependent (Chronic) Condition: Improved - Instructions Diet, Activity, Other Instructions: You were seen for worsening of your shortness because of your COPD You were placed on intravenous steroids then converted to oral steroids We are discharging you home on steroids Take Prednisone 60mg daily for 3 days- 02/13, 02/14, 02/15 50mg daily for 3 days-02/16, 02/17, 02/18 40mg daily for 3 days -02/19, 02/20, 02/21 30mg daily for 3 days- 02/22, 02/23, 02/24 20 mg daily for 3 days-02/25, 02/26, 02/27 10 mg daily for 3 days-02/28, 03/01, 03/02 We added singulair to your COPD/asthma medications to take daily Continue all your other COPD treatments Continue your nebulizer treatment and home oxygen Avoid anything that will worsen your shortness of breath We are giving a new antihypertensive- Tabs Diltiazem 30mg three times daily We stopped the hydrochlorothiazide you were taking for high blood pressure We are giving you miralax to help you go to toilet easily Use it if you feel constipated Continue with your vitamin supplements as prescribed Follow up with your senior biostatistician in one week Follow up with your primary care doctor in one week If you think your symptoms are getting worse with increased colored sputum production or fevers, please return to the emergency room Referrals: Royer Munguia MD [Staff Physician] - 1 Week Disposition: HOME - Home Medications Comprehensive Discharge Medication List: Ambulatory Orders Albuterol 0.083% Nebulizer [place] [Ventolin 0.083% Nebulizer Soln -] 1 neb NEB Q4H 12/05/17 Cholecalciferol (Vitamin D3) [Vitamin D -] 50,000 unit PO WEEKLY 12/05/17 Hydroxyzine Pamoate 25 mg PO DAILY 12/05/17 Albuterol Sulfate Inhaler - [Ventolin HFA Inhaler -] 1 - 2 inh PO Q4H PRN #1 inhaler 01/20/18 Ferrous Sulfate [Feosol] 325 mg PO DAILY 02/04/18 Fluticasone/Salmeterol [Advair 250-50 Diskus] 02/04/18 Folic Acid 1 mg PO DAILY 02/04/18 Umeclidinium [place] [Incruse Ellipta] 62.5 mcg IH DAILY 02/04/18 Diltiazem [Cardizem -] 30 mg PO TID 30 Days #90 tablet 02/12/18 Montelukast Na [Singulair -] 10 mg PO HS #30 tablet 02/12/18 Polyethylene Glycol 3350 [Miralax 119 gm Btl -] 17 gm PO DAILY PRN 5 Days #5 bottle 02/12/18 Prednisone See Taper PO DAILY 18 Days #180 tablet 02/12/18 This patient is new to me today: No Emergency Visit: Yes ED Registration Date: 02/04/18 Care time: The patient presented to the Emergency Department on the above date and was hospitalized for further evaluation of their emergent condition. Critical Care patient: No - Discharge Referral Referred to [facility] No
[2018-02-12 11:19] LABS: PLATELET ESTIMATE DECREASED; TARGET CELLS 1+
[2018-02-12 13:53] VITALS: BP 145/59; TEMP 98
== END 2018-02-12 15:48 | disposition home or self-care (01) | DRG 140 ==
LOC: JER 02:58 → JERBED 06:20 → UNDOADMOB 06:27 → JERBED 06:27 → OBSVTOIN 08:47 → J4W 14:15
PROVIDERS: ADMIT Internal Medicine; ATTEND Hospitalist
DX: J44.1 Chronic obstructive pulmonary disease with (acute) exacerbation (principal); J96.21 Acute and chronic respiratory failure with hypoxia; J96.22 Acute and chronic respiratory failure with hypercapnia; N17.9 Acute kidney failure, unspecified; Z99.81 Dependence on supplemental oxygen; R65.10 Systemic inflammatory response syndrome (SIRS) of non-infectious origin without acute organ dysfunction; E87.2 Acidosis; J20.9 Acute bronchitis, unspecified; J44.0 Chronic obstructive pulmonary disease with (acute) lower respiratory infection; F41.9 Anxiety disorder, unspecified; D50.9 Iron deficiency anemia, unspecified; Z87.891 Personal history of nicotine dependence; I10 Essential (primary) hypertension; Z91.14 Patient's other noncompliance with medication regimen; R14.0 Abdominal distension (gaseous); K59.00 Constipation, unspecified; G44.209 Tension-type headache, unspecified, not intractable
CPT/HCPCS: 36415; 70450-TC; 71045-TC-FY; 71250-TC; 74018-TC-FY; 80048; 80053; 81003; 81015; 82550; 82803; 83605; 83735; 83880; 84100; 84484; 85025; 85027; 85610; 85730; 87040; 87086; 93005; 93010; 93306-TC; 94640; 94761; 97116-GP; 97161-GP; 99285-25; G0378; J0131; J1644; J7030; J7620

== ENCOUNTER 2018-04-25 16:47 | Emergency (ER) | payer OTHER ==
[2018-04-25 16:57] VITALS: TEMP 98.3; BMI 27.6
--- NOTE | 2018-04-25 18:46 | PDOC ---
History of Present Illness - General History Source: Patient Exam Limitations: No Limitations - History of Present Illness Initial Comments: 04/25/18 19:00 The patient is a 89 year old female, with a significant past medical history of COPD on 3L home O2, hypertension, who presents to the emergency department with increased shortness of breath since last night. Secondarily she reports feeling abdominal distension for the past 6 months. 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 The patient denies chest pain, headache and dizziness. The patient denies fever , chills, nausea, vomit, diarrhea and constipation.The patient denies dysuria, frequency, urgency and hematuria. Past surgical history: Social history: quit cigarettes at age 55 from a 40 year ppd Hx PCP - Dr. Ro <Olivia Mckeon - Last Filed: 04/25/18 19:00> <Hoa Gonzalez - Last Filed: 04/25/18 23:44> - General Chief Complaint: Asthma Stated Complaint: SOB Time Seen by Provider: 04/25/18 18:45 Past History <Olivia Mckeon - Last Filed: 04/25/18 19:00> - Past Medical History Anemia: No Asthma: Yes Cancer: No Cardiac Disorders: Yes CVA: No COPD: Yes CHF: No DVT: No Dementia: No Diabetes: No Dialysis: No GI Disorders: No Disorders: No HTN: Yes Hypercholesterolemia: No Kidney Stones: No Liver Disease: No Psychiatric Problems: No Seizures: No Thyroid Disease: No Lung CA: No - Surgical History Abdominal Surgery: No Appendectomy: No Cardiac Surgery: No Cholecystectomy: No Gastric Stapling: No GI Surgery: No Lung Surgery: No Neurologic Surgery: No Orthopedic Surgery: No - Family Disease History Family Disease History: Other: Father (passed from kidney failure as refused HD) , Mother (kidney failure requiring HD) - Reproductive History PID: No - Immunization History Immunization Up to Date: Yes - Suicide/Smoking/Psychosocial Hx Smoking Status: No Smoking History: Former smoker Years of Tobacco Use: 45 (45 pack yr hx) Have you smoked in the past 12 months: No Number of Cigarettes Smoked Daily: 0 If you are a former smoker, when did you quit?: 2014 Information on smoking cessation initiated: No 'Breaking Loose' booklet given: 04/10/15 Hx Alcohol Use: No Drug/Substance Use Hx: No Substance Use Type: None Hx Substance Use Treatment: No <Hoa Gonzalez - Last Filed: 04/25/18 23:44> - Past Medical History Allergies/Adverse Reactions: Allergies Allergy/AdvReac Type Severity Reaction Status Date / Time black walnut Allergy Severe Hives Verified 04/25/18 16:55 sulfamethoxazole Allergy Severe Swelling Verified 04/25/18 16:55 [From Bactrim] trimethoprim [From Bactrim] Allergy Severe Swelling Verified 04/25/18 16:55 PECAN Allergy Severe Hives Uncoded 04/25/18 16:55 Home Medications: Ambulatory Orders Cholecalciferol (Vitamin D3) [Vitamin D -] 50,000 unit PO WEEKLY 12/05/17 Hydroxyzine Pamoate 25 mg PO DAILY 12/05/17 Albuterol Sulfate Inhaler - [Ventolin HFA Inhaler -] 1 - 2 inh PO Q4H PRN #1 inhaler 01/20/18 Ferrous Sulfate [Feosol] 325 mg PO DAILY 02/04/18 Fluticasone/Salmeterol [Advair 250-50 Diskus] 1 puff IN QID PRN 02/04/18 Folic Acid 1 mg PO DAILY 02/04/18 Umeclidinium [place] [Incruse Ellipta] 62.5 mcg IH DAILY 02/04/18 Diltiazem [Cardizem -] 30 mg PO TID 30 Days #90 tablet 02/12/18 Montelukast Na [Singulair -] 10 mg PO HS #30 tablet 02/12/18 Polyethylene Glycol 3350 [Miralax 119 gm Btl -] 17 gm PO DAILY PRN 5 Days #5 bottle 02/12/18 Albuterol Sulfate Inhaler - [Ventolin Hfa Inhaler -] 1 - 2 inh PO Q4H #1 inhaler 04/25/18 Ipratropium/Albuterol Sulfate [Combivent Respimat Inhal [place]] 4 gm IH BID #20 aer.w.adap 04/25/18 Methylprednisolone [Medrol Dose Issa] 4 mg PO ASDIR #21 tablet 04/25/18 Respiratory Specific PMHX - Complaint Specific PMHX TB (Tuberculosis): No <Hoa Gonzalez - Last Filed: 04/25/18 23:44> Review of Systems - Review of Systems Able to Perform ROS?: Yes Comments:: 04/25/18 19:01 CONSTITUTIONAL: Absent: fever, chills, diaphoresis, generalized weakness, malaise, loss of appetite HEENT: Absent: rhinorrhea, nasal congestion, throat pain, throat swelling, difficulty swallowing, mouth swelling, ear pain, eye pain, visual Changes CARDIOVASCULAR: Absent: chest pain, syncope, palpitations, irregular heart rate, lightheadedness , peripheral edema RESPIRATORY: (+) shortness of breath, Absent: cough, dyspnea with exertion, orthopnea, wheezing, stridor, hemoptysis GASTROINTESTINAL: (+) abdominal distension, Absent: abdominal pain, nausea, vomiting, diarrhea, constipation, melena, hematochezia GENITOURINARY: Absent: dysuria, frequency, urgency, hesitancy, hematuria, flank pain, genital pain MUSCULOSKELETAL: Absent: myalgia, arthralgia, joint swelling SKIN: Absent: rash, itching, pallor HEMATOLOGIC/IMMUNOLOGIC: Absent: easy bleeding, easy bruising, lymphadenopathy, frequent infections ENDOCRINE: Absent: unexplained weight gain, unexplained weight loss, heat intolerance, cold intolerance NEUROLOGIC: Absent: headache, focal weakness or paresthesias, dizziness, unsteady gait, seizure, mental status changes, bladder or bowel incontinence PSYCHIATRIC: Absent: anxiety, depression, suicidal or homicidal ideation, hallucinations. <Olivia Mckeon - Last Filed: 04/25/18 19:00> *Physical Exam - Vital Signs Last Vital Signs Temp Pulse Resp BP Pulse Ox 98.3 F 114 H 24 147/82 96 04/25/18 16:55 04/25/18 16:55 04/25/18 16:55 04/25/18 16:55 04/25/18 16:55 - Physical Exam Comments: 04/25/18 19:01 GENERAL: Well developed, well nourished. Awake and alert. No acute distress. HEENT: Normocephalic, atraumatic. PERRLA, EOMI. No conjunctival pallor. Sclera are non- icteric. Moist mucous membranes. Oropharynx is clear. NECK: Supple. Full ROM. No JVD. Carotid pulses 2+ and symmetric, without bruits. No thyromegaly. No lymphadenopathy. CARDIOVASCULAR: Regular rate and rhythm. No murmurs, rubs, or gallops. Distal pulses are 2+ and symmetric. PULMONARY: (+) increased work of breathing, dyspnea, Decreased breath sounds and expiratory wheezing. No rales or rhonchi. ABDOMINAL: (+) Mild abdominal distension. Soft. Non-tender. No rebound or guarding. No organomegaly. Normoactive bowel sounds. MUSCULOSKELETAL Normal range of motion at all joints. No bony deformities or tenderness. No CVA tenderness. EXTREMITIES: No cyanosis. No clubbing. No edema. No calf tenderness. SKIN: Warm and dry. Normal capillary refill. No rashes. No jaundice. NEUROLOGICAL: Alert, awake, appropriate. Cranial nerves 2-12 intact. Normoreflexic in the upper and lower extremities. Normal speech. Toes are down-going bilaterally. Gait is normal without ataxia. PSYCHIATRIC: Cooperative. Good eye contact. Appropriate mood and affect. <Olivia Mckeon - Last Filed: 04/25/18 19:00> - Vital Signs Last Vital Signs Temp Pulse Resp BP Pulse Ox 98.3 F 114 H 24 147/82 96 04/25/18 16:55 04/25/18 16:55 04/25/18 16:55 04/25/18 16:55 04/25/18 16:55 <Hoa Gonzalez - Last Filed: 04/25/18 23:44> ED Treatment Course - LABORATORY CBC & Chemistry Diagram: 04/25/18 20:35 04/25/18 20:35 <Hoa Gonzalez - Last Filed: 04/25/18 23:44> *DC/Admit/Observation/Transfer - Attestations Scribe Attestion: 04/25/18 19:02 Documentation prepared by Olivia Mckeon, acting as emergency medical technician for Hao Gonzalez MD <Olivia Mckeon - Last Filed: 04/25/18 19:00> <Hoa Gonzalez - Last Filed: 04/25/18 23:44> Diagnosis at time of Disposition: Asthma exacerbation in COPD - Discharge Dispostion Disposition: HOME Condition at time of disposition: Stable - Prescriptions Prescriptions: Albuterol Sulfate Inhaler - [Ventolin Hfa Inhaler -] 1 - 2 inh PO Q4H #1 inhaler Ipratropium/Albuterol Sulfate [Combivent Respimat Inhal [place]] 4 gm IH BID #20 aer.w.adap Methylprednisolone [Medrol Dose Issa] 4 mg PO ASDIR #21 tablet - Referrals Referrals: Marija Ro MD [Primary Care Provider] - - Patient Instructions Printed Discharge Instructions: DI for Asthma -- Adult Additional Instructions: please roll picker your mediciations at your pharmacy Follow-up with your primary care physician. Return for any worsening symptoms - Post Discharge Activity
[2018-04-25] MEDS ORDERED: MAGNESIUM SULF 50% (8.12 MEQ/2 ML-1 GM VIAL) IVPB ONE (18:47)
[2018-04-25] MEDS ORDERED: methylPREDNISolone NA SUCC 125 MG/2 ML VIAL IVPB ONE (18:47)
[2018-04-25] MEDS ORDERED: ALBUTEROL SO4 2.5/IPRATROPIUM 0.5 INH SOL 3 ML VIAL.NEB. NEB ONE ×3 (18:47→20:44)
[2018-04-25] MEDS ORDERED: methylPREDNISolone NA SUCC 125 MG/2 ML VIAL ONE (20:44)
[2018-04-25] MEDS ORDERED: MAGNESIUM SULF 50% (8.12 MEQ/2 ML-1 GM VIAL) ONE (20:44)
[2018-04-25 20:52] LABS: BASO % 0.5 % (0-2.0); EOS % 1.2 % (0-4.5); HEMATOCRIT 31.9 % (32.4-45.2); HEMOGLOBIN 9.9 GM/dL (10.7-15.3); MCH 22.7 pg (25.7-33.7); MEAN CELL VOLUME 73.3 fl (80-96); MEAN PLT VOLUME 8.4 fl (7.5-11.1); MONO % 9.4 % (3.8-10.2); NEUT % 68.9 % (42.8-82.8); PLATELET COUNT 198 K/MM3 (134-434); RBC 4.35 M/mm3 (3.60-5.2); RDW 16.7 % (11.6-15.6); WHITE BLOOD COUNT 8.8 K/mm3 (4.0-10.0)
[2018-04-25 21:02] LABS: INR 1.14 (0.83-1.09); PROTHROMBIN TIME (PATIENT) 12.9 SEC (9.7-13.0)
[2018-04-25 21:09] LABS: ALBUMIN 3.1 g/dl (3.4-5.0); ALK PHOS 81 U/L (45-117); ANION GAP 4 (8-16); BILIRUBIN,TOTAL 0.2 mg/dL (0.2-1.0); BLOOD UREA NITROGEN 12 mg/dL (7-18); CALCIUM 9.1 mg/dL (8.5-10.1); CHLORIDE 109 mmol/L (98-107); CO2 36 mmol/L (21-32); CREATININE 1.1 mg/dL (0.55-1.02); GLUCOSE,RANDOM 91 mg/dL (74-106); POTASSIUM 4.4 mmol/L (3.5-5.1); SGOT/AST 15 U/L (15-37); SGPT/ALT 15 U/L (12-78); SODIUM 149 mmol/L (136-145); TOT PROT 6.8 g/dl (6.4-8.2)
[2018-04-26 10:04] VITALS: PULSE 90
[2018-04-26 10:05] VITALS: BP 138/80
--- NOTE | 2018-04-26 16:26 | EKG ---
Test Reason : Blood Pressure : / mmHG Vent. Rate : 092 BPM Atrial Rate : 092 BPM P-R Int : 156 ms QRS Dur : 076 ms QT Int : 388 ms P-R-T Axes : 078 049 066 degrees QTc Int : 479 ms NORMAL SINUS RHYTHM NORMAL ECG WHEN COMPARED WITH ECG OF 04-FEB-2018 03:03, VENT. RATE HAS DECREASED BY 58 BPM Confirmed by Rick Castellano MD ([id number]) on 04/26/2018 4:26:17 PM Referred By: Confirmed By:Rick Castellano MD
== END 2018-04-25 23:55 | disposition home or self-care (01) ==
LOC: JER 16:47
PROC: 3E0F7GC Introduction of Other Therapeutic Substance into Respiratory Tract, Via Natural or Artificial Opening (ICD-10-PCS; principal; 2018-04-25)
PROC: 3E033GC Introduction of Other Therapeutic Substance into Peripheral Vein, Percutaneous Approach (ICD-10-PCS; 2018-04-25)
DX: R05 Cough (principal)
CPT/HCPCS: 36415; 71045-TC-FY; 80053; 84484; 85025; 85610; 93005; 93010; 99283-25; J7620

== ENCOUNTER 2018-05-27 17:08 | Inpatient (IN) | payer OTHER ==
[2018-05-27] MEDS ORDERED: methylPREDNISolone NA SUCC 125 MG/2 ML VIAL IVPUSH ONE (17:25)
[2018-05-27] MEDS ORDERED: CEFTRIAXONE 1,000 MG in DEXTROSE 5%-WATER - 50 ML IVPB ONE (17:26)
[2018-05-27] MEDS ORDERED: MAGNESIUM SULF 50% (8.12 MEQ/2 ML-1 GM VIAL) IVPB ONE ×2 (17:26→17:37)
[2018-05-27] MEDS ORDERED: BUDESONIDE/FORMETEROL FUMARATE 160/4.5 mcg INHALER IH ONE (17:27)
[2018-05-27] MEDS: ALBUTEROL SO4 2.5/IPRATROPIUM 0.5 INH SOL 3 ML VIAL.NEB. NEB SCH ×4 (17:30→18:15)
[2018-05-27] MEDS ORDERED: SODIUM CHLORIDE 1,000 ML IV STA (17:35)
[2018-05-27] MEDS ORDERED: ALBUTEROL SO4 2.5/IPRATROPIUM 0.5 INH SOL 3 ML VIAL.NEB. NEB ONE ×3 (17:36→20:23)
[2018-05-27] MEDS ORDERED: methylPREDNISolone NA SUCC 125 MG/2 ML VIAL ONE (17:36)
[2018-05-27] MEDS ORDERED: MAGNESIUM 1GM/D5W - 2 GM/200 ML IVPB IVPB ONE (17:36)
--- NOTE | 2018-05-27 17:39 | PDOC ---
History of Present Illness - General Chief Complaint: Shortness of Breath Stated Complaint: SOB Time Seen by Provider: 05/27/18 17:12 History Source: Patient Exam Limitations: No Limitations - History of Present Illness Initial Comments: 05/27/18 17:40 57F with PMH of HTN, COPD on 3L O2, Anemia, presents to the hospital for shortness of breath and chest pain. Patient states that chest pain and sob started last nigh and its progressively increasing . Gets short of breath while sitting and lying in bed. Patient states she uses 3L of oxygen in home and is complaint with her copd meds. states she has used her nebulizer 3 times since Yesterday but didn't help her. Also reports increse in cough and change in color of sputum but denies fever and chills. Denies recent travel. Denies sick contact. Reports she is complaint with her meds. Also reports chest pain present in centre of chest 8/10 intensity, constant since last night, non radiating, pressure type, nothing makes it better or worse. Past History - Past Medical History Allergies/Adverse Reactions: Allergies Allergy/AdvReac Type Severity Reaction Status Date / Time black walnut Allergy Severe Hives Verified 05/27/18 17:10 budesonide [From Symbicort] Allergy Severe Swelling Verified 05/27/18 20:28 formoterol [From Symbicort] Allergy Severe Swelling Verified 05/27/18 20:28 sulfamethoxazole Allergy Severe Swelling Verified 05/27/18 17:10 [From Bactrim] trimethoprim [From Bactrim] Allergy Severe Swelling Verified 05/27/18 17:10 PECAN Allergy Severe Hives Uncoded 05/27/18 17:10 Home Medications: Ambulatory Orders Cholecalciferol (Vitamin D3) [Vitamin D -] 50,000 unit PO WEEKLY 12/05/17 Hydroxyzine Pamoate 25 mg PO DAILY 12/05/17 Albuterol Sulfate Inhaler - [Ventolin HFA Inhaler -] 1 - 2 inh PO Q4H PRN #1 inhaler 01/20/18 Ferrous Sulfate [Feosol] 325 mg PO DAILY 02/04/18 Fluticasone/Salmeterol [Advair 250-50 Diskus] 1 puff IN QID PRN 02/04/18 Folic Acid 1 mg PO DAILY 02/04/18 Umeclidinium [place] [Incruse Ellipta] 62.5 mcg IH DAILY 02/04/18 Diltiazem [Cardizem -] 30 mg PO TID 30 Days #90 tablet 02/12/18 Montelukast Na [Singulair -] 10 mg PO HS #30 tablet 02/12/18 Polyethylene Glycol 3350 [Miralax 119 gm Btl -] 17 gm PO DAILY PRN 5 Days #5 bottle 02/12/18 Albuterol Sulfate Inhaler - [Ventolin Hfa Inhaler -] 1 - 2 inh PO Q4H #1 inhaler 04/25/18 Ipratropium/Albuterol Sulfate [Combivent Respimat Inhal [place]] 4 gm IH BID #20 aer.w.adap 04/25/18 Methylprednisolone [Medrol Dose [place]] 4 mg PO ASDIR #21 tablet 04/25/18 Anemia: No Asthma: Yes Cancer: No Cardiac Disorders: Yes CVA: No COPD: Yes CHF: No DVT: No Dementia: No Diabetes: No Dialysis: No GI Disorders: No Disorders: No HTN: Yes Hypercholesterolemia: No Kidney Stones: No Liver Disease: No Psychiatric Problems: No Seizures: No Thyroid Disease: No Lung CA: No - Surgical History Abdominal Surgery: No Appendectomy: No Cardiac Surgery: No Cholecystectomy: No Gastric Stapling: No GI Surgery: No Lung Surgery: No Neurologic Surgery: No Orthopedic Surgery: No - Family Disease History Family Disease History: Other: Father (passed from kidney failure as refused HD) , Mother (kidney failure requiring HD) - Reproductive History PID: No - Immunization History Immunization Up to Date: Yes - Suicide/Smoking/Psychosocial Hx Smoking Status: No Smoking History: Former smoker Years of Tobacco Use: 45 (45 pack yr hx) Have you smoked in the past 12 months: No Number of Cigarettes Smoked Daily: 0 If you are a former smoker, when did you quit?: 2014 Information on smoking cessation initiated: No 'Breaking Loose' booklet given: 04/10/15 Hx Alcohol Use: No Drug/Substance Use Hx: No Substance Use Type: None Hx Substance Use Treatment: No Review of Systems - Review of Systems Constitutional: No: Chills, Fever Respiratory: Yes: Cough, Shortness of Breath, SOB with Exertion, SOB at Rest, Wheezing, Productive cough Cardiac (ROS): Yes: Chest Pain, Palpitations. No: Edema, Syncope ABD/GI: No: Abdominal Distended, Constipated, Diarrhea, Difficulty Swallowing, Nausea, Vomiting : No: Burning, Dysuria, Frequency, Flank Pain Neurological: No: Headache *Physical Exam - Vital Signs Last Vital Signs Temp Pulse Resp BP Pulse Ox 98.2 F 123 H 24 176/111 99 05/27/18 17:10 05/27/18 17:10 05/27/18 17:10 05/27/18 17:10 05/27/18 17:10 - Physical Exam General Appearance: Yes: Apparent Distress HEENT: positive: Normal Voice Neck: positive: Trachea midline, Supple Respiratory/Chest: positive: Wheezing, Other (b/l decrese air entry, b/l wheezing, using acessory muscle, talking and yelling on phone with some one constantly. ) Cardiovascular: positive: Regular Rhythm, Regular Rate (tachycardia ), S1, S2 Gastrointestinal/Abdominal: positive: Normal Bowel Sounds, Soft. negative: Tender, Guarding, Tenderness Musculoskeletal: positive: Normal Inspection. negative: CVA Tenderness Extremity: positive: Normal Inspection. negative: Tender, Pedal Edema, Calf Tenderness Neurologic: positive: Fully Oriented, Alert, Normal Mood/Affect ED Treatment Course - LABORATORY CBC & Chemistry Diagram: 05/27/18 17:42 05/27/18 17:42 - RADIOLOGY Radiology Studies Ordered: Category Date Time Status CXRPORT [CHEST X-RAY PORTABLE*] [RAD] Stat Radiology 05/27/18 17:29 Ordered Medical Decision Making - Medical Decision Making 05/27/18 17:51 57F with PMH of HTN, COPD on 3L O2, Anemia, presents to the hospital for shortness of breath and chest pain. Patient states that chest pain and sob started last nigh and its progressively increasing . Gets short of breath while sitting and lying in bed. Patient states she uses 3L of oxygen in home and is complaint with her copd meds. states she has used her nebulizer 3 times since Yesterday but didn't help her. Also reports increse in cough and change in color of sputum but denies fever and chills. Denies recent travel. Denies sick contact. Reports she is complaint with her meds. Also reports chest pain present in centre of chest 8/10 intensity, constant since last night, non radiating, pressure type, nothing makes it better or worse. we will get cbc, cmp, cxr, ekg, vbg, trop, mag , phos and culture. we will give her iv solumedrol, azithro, ceftriaxone, magnesium ,duoneb and symbicort. 05/27/18 17:52 CBCD WBC 9.9 K/mm3 (4.0-10.0) 05/27/18 17:42 RBC 5.00 M/mm3 (3.60-5.2) 05/27/18 17:42 Hgb 11.3 GM/dL (10.7-15.3) 05/27/18 17:42 Hct 37.2 % (32.4-45.2) D 05/27/18 17:42 MCV 74.3 fl (80-96) L 05/27/18 17:42 MCHC 30.4 g/dl (32.0-36.0) L 05/27/18 17:42 RDW 16.3 % (11.6-15.6) H 05/27/18 17:42 Plt Count 216 K/MM3 (134-434) 05/27/18 17:42 MPV 8.7 fl (7.5-11.1) 05/27/18 17:42 CMP Sodium 147 mmol/L (136-145) H 05/27/18 17:42 Potassium 4.0 mmol/L (3.5-5.1) 05/27/18 17:42 Chloride 105 mmol/L (98-107) 05/27/18 17:42 Carbon Dioxide 34 mmol/L (21-32) H 05/27/18 17:42 Anion Gap 8 MMOL/L (8-16) 05/27/18 17:42 BUN 10 mg/dL (7-18) 05/27/18 17:42 Creatinine 0.9 mg/dL (0.55-1.02) 05/27/18 17:42 Creat Clearance w eGFR > 60 (>60) 05/27/18 17:42 Random Glucose 93 mg/dL (74-106) 05/27/18 17:42 Calcium 9.4 mg/dL (8.5-10.1) 05/27/18 17:42 Total Bilirubin 0.3 mg/dL (0.2-1.0) 05/27/18 17:42 AST 20 U/L (15-37) 05/27/18 17:42 ALT 17 U/L (12-78) 05/27/18 17:42 Alkaline Phosphatase 93 U/L (45-117) 05/27/18 17:42 Total Protein 8.5 g/dl (6.4-8.2) H 05/27/18 17:42 Albumin 3.6 g/dl (3.4-5.0) 05/27/18 17:42 CARDIAC ENZYMES Troponin I < 0.02 ng/ml (0.00-0.05) 05/27/18 17:42 EKG : NSR with sinus tachy patient feeling better. Air entry better than before . WV 107, spo2 95 % on 3 L Na 147. VBG Ph 7.26 and pco2 76.8 05/27/18 19:19 we will admit patient for copd exabration with co2 retention. Patient takes 30mg cardiazem tid but she is not complaint with it and she reports she is taking once a day. we will give her onetime dose as patient Hr is still 115, Microbloged admitting symphonay. 05/27/18 20:[address] Jessica Trevino. we will admit patient in med surg *DC/Admit/Observation/Transfer Diagnosis at time of Disposition: COPD exacerbation - Discharge Dispostion Decision to Admit order: Yes - Referrals - Patient Instructions - Post Discharge Activity
[2018-05-27 18:06] LABS: BASO % 0.6 % (0-2.0); EOS % 1.4 % (0-4.5); HEMATOCRIT 37.2 % (32.4-45.2); HEMOGLOBIN 11.3 GM/dL (10.7-15.3); LYMPH % 18.1 % (8-40); MCH 22.6 pg (25.7-33.7); MCHC 30.4 g/dl (32.0-36.0); MEAN CELL VOLUME 74.3 fl (80-96); MEAN PLT VOLUME 8.7 fl (7.5-11.1); MONO % 8.1 % (3.8-10.2); NEUT % 71.8 % (42.8-82.8); PLATELET COUNT 216 K/MM3 (134-434); RDW 16.3 % (11.6-15.6); WHITE BLOOD COUNT 9.9 K/mm3 (4.0-10.0)
[2018-05-27] MEDS ORDERED: AZITHROMYCIN IVPB 250 ML IVPB ONE (18:22)
[2018-05-27] MEDS ORDERED: CEFTRIAXONE 1 GM/50 ML BAG ONE (18:22)
[2018-05-27 18:27] LABS: VENOUS PH 7.26 (7.32-7.42); VENOUS PO2 47.6 mmHg (28-48)
[2018-05-27 18:28] LABS: ALBUMIN 3.6 g/dl (3.4-5.0); ANION GAP 8 MMOL/L (8-16); BLOOD UREA NITROGEN 10 mg/dL (7-18); CALCIUM 9.4 mg/dL (8.5-10.1); CHLORIDE 105 mmol/L (98-107); CO2 34 mmol/L (21-32); GLUCOSE,RANDOM 93 mg/dL (74-106); MAGNESIUM 2.1 mg/dL (1.8-2.4); PHOSPHOROUS 3.6 mg/dL (2.5-4.9); SGOT/AST 20 U/L (15-37); SGPT/ALT 17 U/L (12-78); SODIUM 147 mmol/L (136-145); VENOUS PC02 76.8 mmHg (38-52)
--- NOTE | 2018-05-27 18:29 | PDOC ---
Attending Attestation - HPI HPI: 05/27/18 18:57 The patient is a 57-year-old female with a past medical history of HTN, COPD on 3L O2 (compliant with medication), Anemia presents to the emergency department via EMS with shortness of breath. The patient presents with shortness of breath since last night thats been progressively increasing. The patient reports taking 3 nebulizers since last night, without relief. The patient reports an additional concern of a cough, with a change in production for the past 1 day. The patient denies following up with a mobile equipment mechanic. Denies cardiac issues. Denies prior use of Bipap. Allergies: sulfamethoxazole and trimethoprim Social history: Former smoker. No alcohol use reported. Crack Cocaine last use 6 years ago per patient Surgical history: None reported. PCP: [address] - Physicial Exam PE: 05/27/18 18:58 GENERAL: Awake, alert, and fully oriented, in respiratory distress HEAD: No signs of trauma EYES: PERRLA, EOMI, sclera anicteric, conjunctiva clear ENT: Auricles normal inspection, hearing grossly normal, nares patent. Moist mucosa NECK: Normal ROM, supple, no lymphadenopathy, JVD, or masses LUNGS: Mild conversational dyspnea. Diminished lung sounds B/l with expiratory wheezing. no crackles HEART: (+) Tachycardia. normal S1 and S2, no murmurs, rubs or gallops ABDOMEN: Soft, nontender, normoactive bowel sounds. No guarding, no rebound. No masses EXTREMITIES: No edema in the leg. Normal range of motion, no edema. No erythema or tenderness. DP/PT pulses 2+ and symmetric. Warm and well perfused. NEUROLOGICAL: Moves all extremities. SKIN: Warm, Dry, normal turgor, no rashes or lesions noted. - Medical Decision Making 05/27/18 18:57 Documentation prepared by Nae De La Torre, acting as medical referral coordinator for Batsheva Piedra DO. <Nae De La Torre - Last Filed: 05/27/18 19:08> - Resident Resident Name: Corey Sanchez - ED Attending Attestation I have performed the following: I have examined & evaluated the patient, The case was reviewed & discussed with the resident, I agree w/resident's findings & plan, Exceptions are as noted - Critical Care Time Total Critical Care Time: 35 Critical Care Statement: The care of this patient involved high complexity decision making to prevent further life threatening deterioration of the patient 's condition and/or to evaluate & treat vital organ system(s) failure or risk of failure. - Medical Decision Making 05/27/18 18:25 I, Dr. Batsheva Piedra, DO, attest that this document has been prepared under my direction and personally reviewed by me in its entirety. I further attest, that it accurately reflects all work, treatment, procedures and medical decision -making performed by me. 05/27/18 18:26 a/p: 58yo female with hx of COPD on home o2 at 3L nc with sob/increasing cough/ resp distress -used nebs at home without relief -pt with tachypnea, tachy, conversational dyspnea -diminished BS and wheezing on exam -concern for copd exacerbation -will give nebs, steroids, mag, ivf hydration -will sent labs, ekg, cxr -will need admission 05/27/18 19:06 pt with copd and hypercapnic resp failure will admit for further eval pt feeling better, speaking on her cell phone will hold off on bipap 05/27/18 19:07 microblog sent to [facility] for admission 05/27/18 20:34 Dr. Sanchez discussed the case with [facility] who accepts the patient for admission <Batsheva Piedra - Last Filed: 05/27/18 20:36> Heart Score/ECG Review - ECG Intrepretation Comment:: 05/27/18 18:25 sinus tach at 122, nl axis, biatrial enlargement, lvh, no acute st/t wave findings <Batsheva Piedra - Last Filed: 05/27/18 20:36>
[2018-05-27 18:30] LABS: ALK PHOS 93 U/L (45-117); BILIRUBIN,TOTAL 0.3 mg/dL (0.2-1.0); CREATININE 0.9 mg/dL (0.55-1.02); TOT PROT 8.5 g/dl (6.4-8.2)
[2018-05-27] MEDS: AZITHROMYCIN IVPB 500 MG in DEXTROSE 5%-WATER - 250 ML IVPB SCH (19:20)
[2018-05-27] MEDS ORDERED: dilTIAZem HCL 30 MG TABLET (FP) PO ONE (19:50)
[2018-05-27] MEDS ORDERED: dilTIAZem HCL 30 MG TABLET (FP) ONE (20:22)
--- NOTE | 2018-05-27 21:48 | HP ---
CHIEF COMPLAINT: Shortness of breath PCP: Vero Chand HISTORY OF PRESENT ILLNESS: Patient is a 58 year old with a PMHx of HTN, COPD on 3L of , chronic anemia, former smoker, multiple prior COPD exacerbations who presented today for shortness of breath associated associated with a productive cough with white phlegm that started yesterday. Patient reports the shortness of breath has been worsening and she used several rounds of albuterol and duoneb without much improvement. Patient reports being compliant with her 3L 02. Patient reports chest discomfort but states it's the usual discomfort she feels when she has these exacerbations. Patient reports being complaint with all her inhalers and medications Denies being around sick patients Otherwise, patient denies fever, chills, nausea, vomiting, abdominal pain, headaches, dizziness, lightheadedness/ ER course was notable for: (1) ABG with CO2 retention (2) Duonebs, Solumedrol, magnesium (3) Chest X-ray Recent Travel: Denies PAST MEDICAL HISTORY: COPD (on 2L oxygen), HTN, Hx of polysubstance abuse, Chronic anemia PAST SURGICAL HISTORY: Denies Social History: Smokin pack year smoking hx, not current smoker Alcohol: Occasional Drugs: Former crack cocaine abuser; not a current user Family History: Hx of Kidney disease mother and father - kidney failure requiring HD Family History: Allergies black walnut Allergy (Severe, Verified 05/27/18 17:10) Hives pt states she is not allergic to black walnuts budesonide [From Symbicort] Allergy (Severe, Verified 05/27/18 20:28) Swelling formoterol [From Symbicort] Allergy (Severe, Verified 05/27/18 20:28) Swelling sulfamethoxazole [From Bactrim] Allergy (Severe, Verified 05/27/18 17:10) Swelling trimethoprim [From Bactrim] Allergy (Severe, Verified 05/27/18 17:10) Swelling PECAN Allergy (Severe, Uncoded 05/27/18 17:10) Hives pt states she is not allergic to PECANS HOME MEDICATIONS: Home Medications Medication Instructions Recorded Cholecalciferol (Vitamin D3) 50,000 unit PO WEEKLY 12/05/17 [Vitamin D -] Hydroxyzine Pamoate 25 mg PO DAILY 12/05/17 Albuterol Sulfate Inhaler - 1 - 2 inh PO Q4H PRN #1 inhaler 01/20/18 [Ventolin HFA Inhaler -] Ferrous Sulfate [Feosol] 325 mg PO DAILY 02/04/18 Fluticasone/Salmeterol [Advair 1 puff IN QID PRN 02/04/18 250-50 Diskus] Folic Acid 1 mg PO DAILY 02/04/18 Umeclidinium [place] [Incruse 62.5 mcg IH DAILY 02/04/18 Ellipta] Diltiazem [Cardizem -] 30 mg PO TID 30 Days #90 tablet 02/12/18 Montelukast Na [Singulair -] 10 mg PO HS #30 tablet 02/12/18 Polyethylene Glycol 3350 [Miralax 17 gm PO DAILY PRN 5 Days #5 bottle 02/12/18 119 gm Btl -] Albuterol Sulfate Inhaler - 1 - 2 inh PO Q4H #1 inhaler 04/25/18 [Ventolin Hfa Inhaler -] Ipratropium/Albuterol Sulfate 4 gm IH BID #20 aer.w.adap 04/25/18 [Combivent Respimat Inhal [place]] Methylprednisolone [Medrol Dose 4 mg PO ASDIR #21 tablet 04/25/18 Issa] REVIEW OF SYSTEMS CONSTITUTIONAL: Absent: fever, chills, diaphoresis, generalized weakness, malaise, loss of appetite, weight change HEENT: Absent: rhinorrhea, nasal congestion, throat pain, throat swelling, difficulty swallowing, mouth swelling, ear pain, eye pain, visual changes CARDIOVASCULAR: Absent: syncope, palpitations, irregular heart rate, lightheadedness, peripheral edema Present: chest pain, chest tightness RESPIRATORY: Absent: cough, orthopnea, wheezing, stridor, hemoptysis Present: shortness of breath, dyspnea with exertion GASTROINTESTINAL: Absent: abdominal pain, abdominal distension, nausea, vomiting, diarrhea, constipation, melena, hematochezia GENITOURINARY: Absent: dysuria, frequency, urgency, hesitancy, hematuria, flank pain, genital pain MUSCULOSKELETAL: Absent: myalgia, arthralgia, joint swelling, back pain, neck pain SKIN: Absent: rash, itching, pallor HEMATOLOGIC/IMMUNOLOGIC: Absent: easy bleeding, easy bruising, lymphadenopathy, frequent infections ENDOCRINE: Absent: unexplained weight gain, unexplained weight loss, heat intolerance, cold intolerance NEUROLOGIC: Absent: headache, focal weakness or paresthesias, dizziness, unsteady gait, seizure, mental status changes, bladder or bowel incontinence PSYCHIATRIC: Absent: anxiety, depression, suicidal or homicidal ideation, hallucinations. PHYSICAL EXAMINATION Vital Signs - 24 hr 05/27/18 05/27/18 17:10 19:48 Temperature 98.2 F Pulse Rate 115 H Pulse Rate [ 115 H Apical] Respiratory 24 22 Rate Blood Pressure 176/111 Blood Pressure 154/96 [Right Arm] O2 Sat by Pulse 95 94 L Oximetry (%) GENERAL: AAOx3 NAD HEAD: Normal with no signs of trauma. EYES: Pupils equal, round and reactive to light, extraocular movements intact NECK: No JVD LUNGS: Diffuse expiratory wheezing with bibasilar crackles HEART: Tachycardic with regular rhythm normal S1 and S2 without murmur ABDOMEN: Soft, obese, nontender, nondistended, normoactive bowel sounds MUSCULOSKELETAL: No CVA tenderness. UPPER EXTREMITIES: No peripheral edema. LOWER EXTREMITIES: No peripheral edema. NEUROLOGICAL: Cranial nerves II-XII grossly intact. Normal Speech. PSYCHIATRIC: Cooperative. Good eye contact. Laboratory Results - last 24 hr 05/27/18 05/27/18 05/27/18 17:42 17:42 17:42 WBC 9.9 RBC 5.00 Hgb 11.3 Hct 37.2 D MCV 74.3 L MCH 22.6 L MCHC 30.4 L RDW 16.3 H Plt Count 216 MPV 8.7 Absolute Neuts (auto) 7.1 Neutrophils % 71.8 Lymphocytes % 18.1 Monocytes % 8.1 Eosinophils % 1.4 Basophils % 0.6 Nucleated RBC % 0 VBG pH POC VBG pCO2 POC VBG pO2 Mixed VBG HCO3 Sodium 147 H Potassium 4.0 Chloride 105 Carbon Dioxide 34 H Anion Gap 8 BUN 10 Creatinine 0.9 Creat Clearance w eGFR > 60 Random Glucose 93 Calcium 9.4 Phosphorus 3.6 Magnesium 2.1 Total Bilirubin 0.3 AST 20 ALT 17 Alkaline Phosphatase 93 Troponin I < 0.02 Total Protein 8.5 H Albumin 3.6 IMAGES: Chest X-Ray (05/27/18): No significant interval change. Persistent bilateral increased interstitial markings. Differential diagnosis again includes chronic interstitial lung disease. Cannot rule out noncardiogenic mild pulmonary venous congestion or interstitial infiltrates. ASSESSMENT/PLAN: Patient is a 58 year old female who presented with shortness of breath and found to be in COPD exacerbation. Patient admitted for further monitoring and management. COPD Exacerbation - Possibly secondary to CAP - Continue Azithromycin 250mg daily and Ceftriaxone 1gm daily - Solumedrol 40mg Q6H IVPB - Duonebs QID - Albuterol PRN - Continue Symbicort - Pulmonary Consult - Continue O2 at 3L - pt uses at home Atypical Chest Pain - Likely due to COPD Exac - Troponins negative x1, unlikely cardiac in nature Microcytic Anemia - likely due to RUBY - Fe Panel previously showed low Fe, low Fesat, low-normal ferritin - Continue Fe supplements Hx of HTN - Continue Cardizem 30mg TID - Monitor BP closely F/E/N - On no fluids - No Electrolyte abnormalities - Sodium controlled diet Prophylaxis - Moderate risk. Heparin SQ TID - GI Not indicated - Deconditioning: PT not needed, patient is ambulatory Disposition - Admit to Med/Surg Med Rec -Med Rec confirmed Case Discussed with Attending, Dr. Brennan. Jessica Trevino [id number] Visit type - Emergency Visit Emergency Visit: Yes ED Registration Date: 05/27/18 Care time: The patient presented to the Emergency Department on the above date and was hospitalized for further evaluation of their emergent condition. - New Patient This patient is new to me today: Yes Date on this admission: 05/27/18 - Critical Care Critical Care patient: No Hospitalist Screening - Colonoscopy Questionnaire Colonoscopy Questionnaire: Colonoscopy Questionnaire - Patient: 50 - 75 years old and never had a screening colonoscopy: Unknown History of colon or rectal polyps, or CA: Unknown History of IBD, Crohn's disease or UC: Unknown History of abdominal radiation therapy as a child: Unknown - Relative: 1 with colon or rectal CA, or polyps at age 60 or younger: Unknown Colon or rectal CA diagnosed at age 45 or younger: Unknown Multiple relatives with colon or rectal CA: Unknown - Outcome: Screening Result: Negative Screen
[2018-05-27] MEDS ORDERED: BUDESONIDE/FORMETEROL FUMARATE 160/4.5 mcg INHALER IH SCH (22:00)
[2018-05-27] MEDS: dilTIAZem HCL 30 MG TABLET (FP) PO SCH (22:39)
[2018-05-27] MEDS ORDERED: methylPREDNISolone NA SUCC 40 MG/1 ML VIAL ONE (22:40)
[2018-05-27] MEDS: methylPREDNISolone NA SUCC 40 MG/1 ML VIAL IVPUSH SCH (22:49)
[2018-05-28] MEDS: ALBUTEROL SO4 0.083% IH SOL 2.5 MG/3 ML VIAL.NEB. NEB PRN ×2 (00:16→06:33)
[2018-05-28] MEDS ORDERED: HEPARIN NA (PORCINE) 5,000 UNITS/ML 1ML VIAL SQ SCH (02:00)
[2018-05-28] MEDS: methylPREDNISolone NA SUCC 40 MG/1 ML VIAL IVPUSH SCH ×3 (02:50→18:00)
--- NOTE | 2018-05-28 05:24 | PN ---
Teaching Attending Note Name of Resident: Jessica Trevino ATTENDING PHYSICIAN STATEMENT I saw and evaluated the patient. I reviewed the resident's note and discussed the case with the resident. I agree with the resident's findings and plan as documented. SUBJECTIVE: OBJECTIVE: ASSESSMENT AND PLAN: patient admitted for COPD exacerbation c/.w home medication nebulizer albuterol q4-6 nebulizer ipratropium bromide Possibly secondary to CAP Continue Azithromycin 250mg daily and Ceftriaxone 1gm daily prednisone 40mg daily Duonebs QID Albuterol PRN Continue Symbicort Pulmonary Consult Continue O2 at 3L - pt uses at home
[2018-05-28] MEDS: dilTIAZem HCL 30 MG TABLET (FP) PO SCH ×3 (06:26→21:14)
[2018-05-28] MEDS: HEPARIN NA (PORCINE) 5,000 UNITS/ML 1ML VIAL SQ SCH ×3 (06:26→21:14)
[2018-05-28 07:09] LABS: HEMATOCRIT 31.7 % (32.4-45.2); HEMOGLOBIN 9.7 GM/dL (10.7-15.3); MCH 22.3 pg (25.7-33.7); MCHC 30.6 g/dl (32.0-36.0); MEAN CELL VOLUME 72.9 fl (80-96); MEAN PLT VOLUME 8.2 fl (7.5-11.1); PLATELET COUNT 167 K/MM3 (134-434); RBC 4.35 M/mm3 (3.60-5.2); RDW 15.6 % (11.6-15.6); WHITE BLOOD COUNT 7.7 K/mm3 (4.0-10.0)
[2018-05-28] MEDS: ALBUTEROL SO4 2.5/IPRATROPIUM 0.5 INH SOL 3 ML VIAL.NEB. NEB SCH ×4 (07:25→20:05)
[2018-05-28 07:27] LABS: ANION GAP 6 MMOL/L (8-16); BLOOD UREA NITROGEN 15 mg/dL (7-18); CALCIUM 8.6 mg/dL (8.5-10.1); CHLORIDE 106 mmol/L (98-107); CO2 31 mmol/L (21-32); CREATININE 1.1 mg/dL (0.55-1.02); GLUCOSE,RANDOM 115 mg/dL (74-106); POTASSIUM 4.3 mmol/L (3.5-5.1); SODIUM 143 mmol/L (136-145)
[2018-05-28] MEDS ORDERED: cefTRIAXone SODIUM 1 GM VIAL ONE (09:55)
[2018-05-28] MEDS ORDERED: PT OWN MED DRAWER 7, Y5N ONE ×2 (09:55→10:59)
[2018-05-28] MEDS ORDERED: DEXTROSE 5%-WATER - 50 ML IVPB ONE (09:56)
[2018-05-28] MEDS ORDERED: predniSONE 20 MG TABLET (UD) PO SCH (10:00)
[2018-05-28] MEDS: FOLIC ACID 1 MG TABLET (FP) PO SCH (10:23)
[2018-05-28] MEDS: CEFTRIAXONE 1 GM in DEXTROSE 5%-WATER - 50 ML IVPB SCH (10:23)
[2018-05-28] MEDS: FERROUS SO4 325 MG TABLET (FP) PO SCH (10:23)
--- NOTE | 2018-05-28 10:41 | PN ---
Progress Note (short form) - Note Progress Note: c/o dyspnea with productive cough of white sputum. states she just moved into new apt and they just painted the dimas and was hard to breathe in the rooms. denies CP, SOB, fever, chills, N/V/C/D was last on steroids on 04/25/18 when came to ED for evaluation and was sent on medrol dose pack. pt completed steroids and felt improvement Current Medications Generic Name Dose Route Start Last Admin Trade Name Freq PRN Reason Stop Dose Admin Albuterol Sulfate 1 amp 05/27/18 20:45 05/28/18 06:33 Ventolin 0.083% Nebulizer Soln - NEB 1 amp Q6H PRN Administration SHORT OF BREATH/WHEEZING Albuterol/Ipratropium 1 amp 05/28/18 08:00 05/28/18 07:25 Duoneb - NEB Not Given RQID ZACHARY Diltiazem HCl 30 mg 05/27/18 22:00 05/28/18 06:26 Cardizem - PO 30 mg TID ZACHARY Administration Ferrous Sulfate 325 mg 05/28/18 10:00 05/28/18 10:23 Feosol - PO 325 mg DAILY ZACHARY Administration Folic Acid 1 mg 05/28/18 10:00 05/28/18 10:23 Folic Acid - PO 1 mg DAILY ZACHARY Administration Heparin Sodium (Porcine) 5,000 unit 05/28/18 06:00 05/28/18 06:26 Heparin - SQ Not Given TID ZACHARY Azithromycin 500 mg/ Dextrose 250 mls @ 250 mls/hr 05/27/18 17:36 05/27/18 19 :20 IVPB 250 mls/hr DAILY ZACHARY Administration Ceftriaxone Sodium 1 gm/ 50 mls @ 100 mls/hr 05/28/18 10:00 05/28/18 10:23 Dextrose IVPB 100 mls/hr DAILY ZACHARY Administration Protocol Prednisone 40 mg 05/28/18 10:00 05/28/18 10:23 Deltasone - PO Not Given BID ZACHARY Last Vital Signs Temp Pulse Resp BP Pulse Ox 97.9 F 92 H 20 141/82 92 L 05/28/18 06:00 05/28/18 06:00 05/28/18 06:00 05/28/18 06:00 05/28/18 03:09 General NAD CV S1 S2 RRR no murmur/rub/gallop Lungs diffuse wheezing. no crackles Abdomen soft NT/ND Extremities no pedal edema CBCD WBC 7.7 K/mm3 (4.0-10.0) 05/28/18 06:30 RBC 4.35 M/mm3 (3.60-5.2) 05/28/18 06:30 Hgb 9.7 GM/dL (10.7-15.3) L 05/28/18 06:30 Hct 31.7 % (32.4-45.2) L 05/28/18 06:30 MCV 72.9 fl (80-96) L 05/28/18 06:30 MCHC 30.6 g/dl (32.0-36.0) L 05/28/18 06:30 RDW 15.6 % (11.6-15.6) 05/28/18 06:30 Plt Count 167 K/MM3 (134-434) D 05/28/18 06:30 MPV 8.2 fl (7.5-11.1) 05/28/18 06:30 CMP Sodium 143 mmol/L (136-145) 05/28/18 06:30 Potassium 4.3 mmol/L (3.5-5.1) 05/28/18 06:30 Chloride 106 mmol/L (98-107) 05/28/18 06:30 Carbon Dioxide 31 mmol/L (21-32) 05/28/18 06:30 Anion Gap 6 MMOL/L (8-16) L 05/28/18 06:30 BUN 15 mg/dL (7-18) 05/28/18 06:30 Creatinine 1.1 mg/dL (0.55-1.02) H 05/28/18 06:30 Creat Clearance w eGFR 50.84 (>60) 05/28/18 06:30 Calcium 8.6 mg/dL (8.5-10.1) 05/28/18 06:30 Total Bilirubin 0.3 mg/dL (0.2-1.0) 05/27/18 17:42 AST 20 U/L (15-37) 05/27/18 17:42 ALT 17 U/L (12-78) 05/27/18 17:42 Alkaline Phosphatase 93 U/L (45-117) 05/27/18 17:42 Total Protein 8.5 g/dl (6.4-8.2) H 05/27/18 17:42 Albumin 3.6 g/dl (3.4-5.0) 05/27/18 17:42 A/P 58yo F with PMH HTn, COPD on home O2 (3L NC) and anemia presented with SOB and cough 1. Acute on chronic COPD exacerbation- likley precipitated by harsh chemical smells. will increase steroids for soulmedrol 40mg Q8H. consult pulmonary. unable to give symbicort due to allergy. start spiriva while in the hospital. cont ceftriaxone nad azithromycin day 2. nebs RTX and prn. titrate supplemental oxygen as needed 2. HTN urgency- likely exacerbated by struggle to breathe. re-starte don home medications now controlled 3. RAOUL- likely induced by HTN episode yesterday. cont to monitor. avoid nephrotoxic agents 4. Normocytic anemia- was likely dehydrated on presentation. now Hgb at baseline. no indication for txn at this time 5. DVT ppx- hep sq Visit type - Emergency Visit Emergency Visit: Yes ED Registration Date: 05/27/18 Care time: The patient presented to the Emergency Department on the above date and was hospitalized for further evaluation of their emergent condition. - New Patient This patient is new to me today: Yes Date on this admission: 05/28/18 - Critical Care Critical Care patient: No - Discharge Referral Referred to [facility] Med P.C.: No
--- NOTE | 2018-05-28 12:16 | CON.PULM ---
Consult Consult Specialty:: PULMONARY Referred by:: ELY Reason for Consultation:: COPD - History of Present Illness Chief Complaint: SOB/COUGH/TUCKER/HOME 02 History of Present Illness: 57F with PMH of HTN, COPD on 3L home O2, Anemia, former smoker presents to the hospital for shortness of breath and chest pain after exposure to recently painted apartment . Patient states that chest pain and sob started last night . Tucker minimal exertion. Patient states she uses 3L of oxygen in home and is complaint with her copd meds. States she has used her nebulizer 3 times since yesterday without relief. Also reports increase in cough and change in color of sputum but denies fever and chills. Denies recent travel. Denies sick contact. Also reports chest pain present in centre of chest 8/10 intensity, constant since last night, non radiating, pressure type, nothing makes it better or worse. 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 No: AFIB, CAD, CHF Pulmonary: Yes: Bronchitis, COPD, O2 Dependent, Other (bronchiectasis) Gastrointestinal: No: Ascites Hepatobiliary: Yes: Other (Fatty liver) Reproductive: Yes: Postmenopausal ...LMP: 05/18/11 ...: No Heme/Onc: Yes: Anemia Psych: No: Addictions Musculoskeletal: Yes: Osteoarthritis Endocrine: No: Diabetes Mellitus - Past Surgical History Past Surgical History: Yes: None - Alcohol/Substance Use Hx Alcohol Use: No History of Substance Use: reports: None - Smoking History Smoking history: Former smoker Have you smoked in the past 12 months: No Aproximately how many cigarettes per day: 0 If you are a former smoker, when did you quit?: 2014 - Social History Usual Living Arrangement: Other (WITH FRIEND) ADL: Independent Place of : [place] History of Recent Travel: No Home Medications - Allergies Allergies/Adverse Reactions: Allergies Allergy/AdvReac Type Severity Reaction Status Date / Time black walnut Allergy Severe Hives Verified 05/27/18 17:10 budesonide [From Symbicort] Allergy Severe Swelling Verified 05/27/18 20:28 formoterol [From Symbicort] Allergy Severe Swelling Verified 05/27/18 20:28 sulfamethoxazole Allergy Severe Swelling Verified 05/27/18 17:10 [From Bactrim] trimethoprim [From Bactrim] Allergy Severe Swelling Verified 05/27/18 17:10 PECAN Allergy Severe Hives Uncoded 05/27/18 17:10 - Home Medications Home Medications: Ambulatory Orders Cholecalciferol (Vitamin D3) [Vitamin D -] 50,000 unit PO WEEKLY 12/05/17 Hydroxyzine Pamoate 25 mg PO DAILY 12/05/17 Albuterol Sulfate Inhaler - [Ventolin HFA Inhaler -] 1 - 2 inh PO Q4H PRN #1 inhaler 01/20/18 Ferrous Sulfate [Feosol] 325 mg PO DAILY 02/04/18 Fluticasone/Salmeterol [Advair 250-50 Diskus] 1 puff IN QID PRN 02/04/18 Folic Acid 1 mg PO DAILY 02/04/18 Umeclidinium [place] [Incruse Ellipta] 62.5 mcg IH DAILY 02/04/18 Diltiazem [Cardizem -] 30 mg PO TID 30 Days #90 tablet 02/12/18 Montelukast Na [Singulair -] 10 mg PO HS #30 tablet 02/12/18 Polyethylene Glycol 3350 [Miralax 119 gm Btl -] 17 gm PO DAILY PRN 5 Days #5 bottle 02/12/18 Albuterol Sulfate Inhaler - [Ventolin Hfa Inhaler -] 1 - 2 inh PO Q4H #1 inhaler 04/25/18 Ipratropium/Albuterol Sulfate [Combivent Respimat Inhal [place]] 4 gm IH BID #20 aer.w.adap 04/25/18 Methylprednisolone [Medrol Dose [place]] 4 mg PO ASDIR #21 tablet 04/25/18 Family Disease History - Family Disease History Family History: Unremarkable Review of Systems - Review of Systems Constitutional: denies: Fever Eyes: denies: Blurred Vision HENT: denies: Difficult Swallowing Neck: denies: Decreased ROM Cardiovascular: reports: Chest Pain, Shortness of Breath Respiratory: reports: Cough, Exercise Intolerance, SOB on Exertion, Wheezing. denies: Hemoptysis Gastrointestinal: denies: Abdominal Pain Genitourinary: denies: Burning Breasts: reports: No Symptoms Reported Musculoskeletal: reports: No Symptoms Physical Exam Vital Sings: Vital Signs Temperature 97.9 F 05/28/18 06:00 Pulse Rate 92 H 05/28/18 06:00 Respiratory Rate 20 05/28/18 06:00 Blood Pressure 141/82 05/28/18 06:00 O2 Sat by Pulse Oximetry (%) 92 L 05/28/18 03:09 Constitutional: Yes: Calm Eyes: Yes: EOM Intact HENT: Yes: Normocephalic Neck: Yes: Trachea Midline Cardiovascular: Yes: Regular Rate and Rhythm Respiratory: Yes: Diminished Gastrointestinal: Yes: Normal Bowel Sounds Edema: No Neurological: Yes: Alert Labs: CBC, BMP 05/28/18 06:30 05/28/18 06:30 Imaging - Results Chest X-ray: Report Reviewed, Image Reviewed Cat Scan: Report Reviewed, Image Reviewed Problem List - Problems (1) COPD exacerbation Code(s): J44.1 - CHRONIC OBSTRUCTIVE PULMONARY DISEASE W (ACUTE) EXACERBATION (2) Acute bronchitis Code(s): J20.9 - ACUTE BRONCHITIS, UNSPECIFIED Qualifiers: Bronchitis organism: unspecified organism Qualified Code(s): J20.9 - Acute bronchitis, unspecified (3) Bronchiectasis Code(s): J47.9 - BRONCHIECTASIS, UNCOMPLICATED (4) Chronic respiratory failure with hypoxia Code(s): J96.11 - CHRONIC RESPIRATORY FAILURE WITH HYPOXIA (5) Emphysema lung Code(s): J43.9 - EMPHYSEMA, UNSPECIFIED Assessment/Plan AGREE WITH STEROIDS/CONTINUOUS O2/BRONCHODILATORS WILL NEED CHEST PT ANTIBIOTICS/SPUTUM CULTURE AND GRAM STAIN DVT/GI PROPHYLAXIS
[2018-05-28] MEDS: TIOTROPIUM BROMIDE 2.5 MCG (SPIRIVA) RESPIMAT INHALER IH SCH (14:04)
[2018-05-28] MEDS: AZITHROMYCIN IVPB 500 MG in DEXTROSE 5%-WATER - 250 ML IVPB SCH (14:05)
[2018-05-29] MEDS: methylPREDNISolone NA SUCC 40 MG/1 ML VIAL IVPUSH SCH ×5 (02:03→21:43)
[2018-05-29] MEDS: HEPARIN NA (PORCINE) 5,000 UNITS/ML 1ML VIAL SQ SCH ×3 (06:10→21:44)
[2018-05-29] MEDS: dilTIAZem HCL 30 MG TABLET (FP) PO SCH ×3 (06:25→21:43)
[2018-05-29] MEDS: ALBUTEROL SO4 0.083% IH SOL 2.5 MG/3 ML VIAL.NEB. NEB PRN (06:45)
[2018-05-29] MEDS: ALBUTEROL SO4 2.5/IPRATROPIUM 0.5 INH SOL 3 ML VIAL.NEB. NEB SCH ×5 (08:07→20:45)
[2018-05-29] MEDS ORDERED: DEXTROSE 5%-WATER - 50 ML IVPB ONE (09:28)
[2018-05-29] MEDS ORDERED: cefTRIAXone SODIUM 1 GM VIAL ONE (09:28)
[2018-05-29] MEDS: TIOTROPIUM BROMIDE 2.5 MCG (SPIRIVA) RESPIMAT INHALER IH SCH (09:52)
[2018-05-29] MEDS: FERROUS SO4 325 MG TABLET (FP) PO SCH (09:52)
[2018-05-29] MEDS: FOLIC ACID 1 MG TABLET (FP) PO SCH (09:52)
[2018-05-29] MEDS: CEFTRIAXONE 1 GM in DEXTROSE 5%-WATER - 50 ML IVPB SCH (09:54)
[2018-05-29] MEDS: AZITHROMYCIN IVPB 500 MG in DEXTROSE 5%-WATER - 250 ML IVPB SCH (10:55)
--- NOTE | 2018-05-29 11:35 | PN ---
Teaching Attending Note Name of Resident: Collin Schuster ATTENDING PHYSICIAN STATEMENT I saw and evaluated the patient. I reviewed the resident's note and discussed the case with the resident. I agree with the resident's findings and plan as documented. SUBJECTIVE:states she was unable to ambulate to the bathroom (10ft) due to dyspnea. also having some chest discomfort on deep inspiration. dneies fever, chills, N/V/C.D OBJECTIVE: Last Vital Signs Temp Pulse Resp BP Pulse Ox 98.0 F 83 20 165/86 93 L 05/29/18 06:00 05/29/18 06:00 05/29/18 06:00 05/29/18 06:00 05/28/18 21:00 General NAD CV S1 S2 RRR +chest wall tenderness Lungs diffuse wheezing no crackles ASSESSMENT AND PLAN: 58yo F with PMH HTn, COPD on home O2 (3L NC) and anemia presented with SOB and cough 1. Acute on chronic COPD exacerbation- likley precipitated by harsh chemical smells. with pleuritic chest pain. will cont medrol at current dosing. cont cef/ azithro day 3. nebs and supplemental oxygen. currently 96% on 3L NC. pulmonary on board 2. HTN urgency- likely exacerbated by struggle to breathe. not at goal, likely induced from dyspnea and steroids. will monitor for now. if persists as breathing improved will consider adjusting medications. 3. RAOUL- likely induced by HTN episode yesterday. cont to monitor. avoid nephrotoxic agents 4. Normocytic anemia- was likely dehydrated on presentation. now Hgb at baseline. no indication for txn at this time 5. DVT ppx- hep sq
--- NOTE | 2018-05-29 12:09 | PN ---
Physical Exam: SUBJECTIVE: Patient seen and examined at bedside. Pt states she is feeling much better. OBJECTIVE: Vital Signs Period Temp Pulse Resp BP Sys/Echevarria Pulse Ox Last 24 Hr 97.7 F-98.3 F 83-108 18-20 133-165/79-97 93 Gen: NAD, sitting in bed comfortably HEENT: NCAT, EOMI, wearing nasal cannula Neck: supple, no jvd, no bruits, no stridor Cardio: rrr, normal s1s2, no m/r/g appreciated Pulm: sparse R basilar, left mid-lung late expiratory wheeze Abd: nonistended, + bs, soft nontender Ext: 2+ pulses, no edema Active Medications Generic Name Dose Route Start Last Admin Trade Name Freq PRN Reason Stop Dose Admin Albuterol Sulfate 1 amp 05/27/18 20:45 05/29/18 06:45 Ventolin 0.083% Nebulizer Soln - NEB 1 amp Q6H PRN Administration SHORT OF BREATH/WHEEZING Albuterol/Ipratropium 1 amp 05/28/18 08:00 05/29/18 11:51 Duoneb - NEB 1 amp RQID ZACHARY Administration Diltiazem HCl 30 mg 05/27/18 22:00 05/29/18 06:25 Cardizem - PO 30 mg TID ZACHARY Administration Ferrous Sulfate 325 mg 05/28/18 10:00 05/29/18 09:52 Feosol - PO 325 mg DAILY ZACHARY Administration Folic Acid 1 mg 05/28/18 10:00 05/29/18 09:52 Folic Acid - PO 1 mg DAILY ZACHARY Administration Heparin Sodium (Porcine) 5,000 unit 05/28/18 06:00 05/29/18 06:10 Heparin - SQ Not Given TID ZACHARY Azithromycin 500 mg/ Dextrose 250 mls @ 250 mls/hr 05/27/18 17:36 05/29/18 10 :55 IVPB 250 mls/hr DAILY ZACHARY Administration Ceftriaxone Sodium 1 gm/ 50 mls @ 100 mls/hr 05/28/18 10:00 05/29/18 09:54 Dextrose IVPB 100 mls/hr DAILY ZACHARY Administration Protocol Methylprednisolone Sodium Succinate 40 mg 05/28/18 10:45 05/29/18 09:52 Solu-Medrol - IVPUSH 40 mg Q8H-IV ZACHARY Administration Tiotropium [place] 2 puff 05/28/18 12:00 05/29/18 09:52 Spiriva Respimat IH 2 puff DAILY ZACHARY Administration ASSESSMENT/PLAN: Chest X-Ray (05/27/18): No significant interval change. Persistent bilateral increased interstitial markings. Differential diagnosis again includes chronic interstitial lung disease. Cannot rule out noncardiogenic mild pulmonary venous congestion or interstitial infiltrates. ASSESSMENT/PLAN: Patient is a 58 year old female who presented with shortness of breath and found to be in COPD exacerbation. Patient admitted for further monitoring and management. #COPD Exacerbation - Possibly secondary to CAP - Azithromycin 250mg daily, Ceftriaxone 1gm daily - Decrease Solumedrol 40mg Q8H IVPB to BID - Duonebs QID - Albuterol PRN - Continue Symbicort - Pulmonary Consult. Recs appreciated: cont current therapy - Continue O2 at 3L - pt uses 3L at home #Atypical Chest Pain: resolved - Likely due to COPD Exac - Troponins negative x1, unlikely cardiac in nature #Microcytic Anemia - likely due to RUBY - Fe Panel previously showed low Fe, low Fesat, low-normal ferritin - Continue Fe supplements #Hx of HTN - Continue Cardizem 30mg TID - Monitor BP closely #FEN - not on fluids - lytes wnl - Sodium controlled diet Prophylaxis - Heparin SQ TID - GI Not indicated - Deconditioning: PT not needed, patient is ambulatory Disposition - Admit to Med/Surg Med Rec -Med Rec confirmed by admitting team Collin Schuster MD PGY-2 IM Visit type - Emergency Visit Emergency Visit: No - New Patient This patient is new to me today: No - Critical Care Critical Care patient: No - Discharge Referral Referred to [facility] Med P.C.: No
--- NOTE | 2018-05-29 13:12 | PN ---
Progress Note (short form) - Note Progress Note: PULMONARY MILD RESP DIFFICULTY HAS JUST RECEIVED NEB VSS ANICTERIC B/L EXP WHEEZE DIFFUSE S1S2 BS+ NO EDEMA LABS/MEDS/NOTES/IMAGES REVIEWED - Problems (1) COPD exacerbation Code(s): J44.1 - CHRONIC OBSTRUCTIVE PULMONARY DISEASE W (ACUTE) EXACERBATION (2) Acute bronchitis Code(s): J20.9 - ACUTE BRONCHITIS, UNSPECIFIED Qualifiers: Bronchitis organism: unspecified organism Qualified Code(s): J20.9 - Acute bronchitis, unspecified (3) Bronchiectasis Code(s): J47.9 - BRONCHIECTASIS, UNCOMPLICATED (4) Chronic respiratory failure with hypoxia Code(s): J96.11 - CHRONIC RESPIRATORY FAILURE WITH HYPOXIA (5) Emphysema lung Code(s): J43.9 - EMPHYSEMA, UNSPECIFIED Assessment/Plan AGREE WITH STEROIDS/CONTINUOUS O2/BRONCHODILATORS MEDS ADJUSTED ANTIBIOTICS/SPUTUM CULTURE AND GRAM STAIN DVT/GI MICKY WARNER MD Problem List - Problems (1) COPD exacerbation Code(s): J44.1 - CHRONIC OBSTRUCTIVE PULMONARY DISEASE W (ACUTE) EXACERBATION (2) Acute bronchitis Code(s): J20.9 - ACUTE BRONCHITIS, UNSPECIFIED Qualifiers: Bronchitis organism: unspecified organism Qualified Code(s): J20.9 - Acute bronchitis, unspecified (3) Bronchiectasis Code(s): J47.9 - BRONCHIECTASIS, UNCOMPLICATED (4) Chronic respiratory failure with hypoxia Code(s): J96.11 - CHRONIC RESPIRATORY FAILURE WITH HYPOXIA (5) Emphysema lung Code(s): J43.9 - EMPHYSEMA, UNSPECIFIED
[2018-05-29] MEDS ORDERED: methylPREDNISolone NA SUCC 40 MG/1 ML VIAL IVPUSH SCH (22:00)
[2018-05-30] MEDS: ALBUTEROL SO4 2.5/IPRATROPIUM 0.5 INH SOL 3 ML VIAL.NEB. NEB SCH ×6 (00:15→22:05)
[2018-05-30] MEDS: methylPREDNISolone NA SUCC 40 MG/1 ML VIAL IVPUSH SCH ×4 (03:37→21:39)
[2018-05-30] MEDS: HEPARIN NA (PORCINE) 5,000 UNITS/ML 1ML VIAL SQ SCH ×3 (06:47→21:39)
[2018-05-30] MEDS: dilTIAZem HCL 30 MG TABLET (FP) PO SCH ×3 (06:47→21:39)
[2018-05-30 08:03] LABS: HEMATOCRIT 31.5 % (32.4-45.2); HEMOGLOBIN 9.4 GM/dL (10.7-15.3); MCH 21.8 pg (25.7-33.7); MCHC 29.9 g/dl (32.0-36.0); MEAN CELL VOLUME 72.9 fl (80-96); MEAN PLT VOLUME 8.8 fl (7.5-11.1); PLATELET COUNT 190 K/MM3 (134-434); RBC 4.32 M/mm3 (3.60-5.2); WHITE BLOOD COUNT 15.2 K/mm3 (4.0-10.0)
[2018-05-30 08:12] LABS: CHLORIDE 105 mmol/L (98-107); POTASSIUM 4.7 mmol/L (3.5-5.1); SODIUM 145 mmol/L (136-145)
[2018-05-30 08:19] LABS: ANION GAP 6 MMOL/L (8-16); BLOOD UREA NITROGEN 28 mg/dL (7-18); CALCIUM 8.9 mg/dL (8.5-10.1); CO2 34 mmol/L (21-32); GLUCOSE,RANDOM 117 mg/dL (74-106)
[2018-05-30] MEDS ORDERED: DEXTROSE 5%-WATER - 50 ML IVPB ONE (08:53)
[2018-05-30] MEDS ORDERED: cefTRIAXone SODIUM 1 GM VIAL ONE (08:53)
--- NOTE | 2018-05-30 11:13 | EKG ---
Test Reason : Blood Pressure : / mmHG Vent. Rate : 122 BPM Atrial Rate : 122 BPM P-R Int : 150 ms QRS Dur : 070 ms QT Int : 324 ms P-R-T Axes : 083 064 072 degrees QTc Int : 461 ms SINUS TACHYCARDIA BIATRIAL ENLARGEMENT BASELINE ARTIFACT ABNORMAL ECG WHEN COMPARED WITH ECG OF 25-APR-2018 22:11, NO SIGNIFICANT CHANGE WAS FOUND Confirmed by GERMAINE SHEIKH MD ([id number]) on 05/30/2018 11:13:25 AM Referred By: Confirmed By:GERMAINE SHEIKH MD
--- NOTE | 2018-05-30 11:31 | PN ---
Teaching Attending Note Name of Resident: Babs Flores ATTENDING PHYSICIAN STATEMENT I saw and evaluated the patient. I reviewed the resident's note and discussed the case with the resident. I agree with the resident's findings and plan as documented. SUBJECTIVE:no improvement with breathing. dyspnea with minimal exertion. cont to CP that is positional (worse when laying on L and better on R)., cough has resolved. denies fever. chills, N/V/C/D OBJECTIVE: Last Vital Signs Temp Pulse Resp BP Pulse Ox 98.3 F 78 20 154/91 97 05/30/18 09:59 05/30/18 09:59 05/30/18 09:59 05/30/18 09:59 05/29/18 21:00 General NAD CV S1 S2 RRR +chest wall tenderness Lungs diffuse wheezing no crackles ASSESSMENT AND PLAN: 58yo F with PMH HTn, COPD on home O2 (3L NC) and anemia presented with SOB and cough 1. Acute on chronic COPD exacerbation- likley precipitated by harsh chemical smells. with pleuritic chest pain. Medrol increased to Q6H yesterday. will maintain same dosing. d/w pulm if can increase inhalers as pt's 4th exacerbation this year and will likely benefit from step up in management. see if pt can bring in home advair (allergy to symbicort) and would likely need increase on dosing on discharge. cont cef/azithro day 4. nebs and supplemental oxygen. currently 98% on 3L NC. pulmonary on board 2. HTN urgency- likely exacerbated by struggle to breathe. not at goal, likely induced from dyspnea and steroids. will monitor for now. if persists as breathing improved will consider adjusting medications. 3. RAOUL- likely induced by HTN episode yesterday. cont to monitor. avoid nephrotoxic agents 4. Normocytic anemia- was likely dehydrated on presentation. now Hgb at baseline. no indication for txn at this time 5. DVT ppx- hep sq
[2018-05-30] MEDS: FOLIC ACID 1 MG TABLET (FP) PO SCH (11:36)
[2018-05-30] MEDS: CEFTRIAXONE 1 GM in DEXTROSE 5%-WATER - 50 ML IVPB SCH (11:36)
[2018-05-30] MEDS: PANTOPRAZOLE 20 MG TABLET (FP) PO SCH (11:36)
[2018-05-30] MEDS: FERROUS SO4 325 MG TABLET (FP) PO SCH (11:44)
[2018-05-30] MEDS: AZITHROMYCIN IVPB 500 MG in DEXTROSE 5%-WATER - 250 ML IVPB SCH (12:11)
--- NOTE | 2018-05-30 13:00 | PN ---
Progress Note (short form) - Note Progress Note: PULMONARY States breathing about the same. Still with cough, wheezing and chest tightness. Vital Signs Period Temp Pulse Resp BP Sys/Echevarria Pulse Ox Last 24 Hr 97.7 F-98.7 F 78-94 20-20 125-154/80-91 97 Gen: tachypneic with speaking Heart: RRR Lung: poor air movement, scattered wheezes Abd: soft, nontender Ext: no edema CBC, BMP 05/30/18 07:00 05/30/18 07:00 Active Medications Albuterol Sulfate (Ventolin 0.083% Nebulizer Soln -) 1 amp NEB Q1H PRN PRN Reason: SHORT OF BREATH/WHEEZING Albuterol/Ipratropium (Duoneb -) 1 amp NEB Q4HPO ZACHARY Budesonide/Formoterol Fumarate (Symbicort 160/4.5mcg -) 2 puff IH BID ZACHARY Diltiazem HCl (Cardizem -) 30 mg PO TID [facility] Last Admin: 05/30/18 06:47 Dose: 30 mg Ferrous Sulfate (Feosol -) 325 mg PO DAILY [facility] Last Admin: 05/30/18 11:44 Dose: 325 mg Folic Acid (Folic Acid -) 1 mg PO DAILY [facility] Last Admin: 05/30/18 11:36 Dose: 1 mg Heparin Sodium (Porcine) (Heparin -) 5,000 unit SQ TID [facility] Last Admin: 05/30/18 06:47 Dose: Not Given Azithromycin 500 mg/ Dextrose 250 mls @ 250 mls/hr IVPB DAILY [facility] Last Admin: 05/30/18 12:11 Dose: 250 mls/hr Ceftriaxone Sodium 1 gm/ (Dextrose) 50 mls @ 100 mls/hr IVPB DAILY [facility]; Protocol Last Admin: 05/30/18 11:36 Dose: 100 mls/hr Methylprednisolone Sodium Succinate (Solu-Medrol -) 40 mg IVPUSH Q6H-IV [facility] Last Admin: 05/30/18 09:48 Dose: 40 mg Pantoprazole Sodium (Protonix -) 20 mg PO DAILY [facility] Last Admin: 05/30/18 11:36 Dose: 20 mg A/P Acute COPD Exacerbation Chronic Hypoxic Respiratory Failure HTN - continue medrol at current dose - inhaled bronchodilators standing and PRN - O2 to keep SpO2 90% - will add daliresp - pt with frequent exacerbations, may need to be on chronic low dose steroids - DVT prophylaxis
--- NOTE | 2018-05-30 13:59 | PN ---
Physical Exam: SUBJECTIVE: Patient seen and examined at bedside this morning. Patient still c/ o SOB and pleuritic chest pain. OBJECTIVE: Vital Signs Period Temp Pulse Resp BP Sys/Echevarria Pulse Ox Last 24 Hr 97.7 F-98.7 F 78-94 20-20 125-154/80-91 97 GENERAL: The patient is awake, alert, and fully oriented, in 3L NC HEAD: Normal with no signs of trauma. EYES: PERRLA, EOMI, sclera anicteric, conjunctiva clear. ENT: Ears normal, nares patent, oropharynx clear without exudates, moist mucous membranes. NECK: Trachea midline, full range of motion, supple. LUNGS: +mid-sternal tenderness on palpation, +b/l scattered wheezes HEART: Regular rate and rhythm, S1, S2 without murmur, rub or gallop. ABDOMEN: Soft, nontender, nondistended, normoactive bowel sounds. EXTREMITIES: 2+ pulses, warm, well-perfused, no edema. NEUROLOGICAL: Cranial nerves II through XII grossly intact. Normal speech, gait not observed. PSYCH: Normal mood, normal affect. SKIN: Warm, dry, normal turgor, no rashes or lesions noted Laboratory Results - last 24 hr 05/30/18 05/30/18 07:00 07:00 WBC 15.2 H RBC 4.32 Hgb 9.4 L Hct 31.5 L MCV 72.9 L MCH 21.8 L MCHC 29.9 L RDW 16.0 H Plt Count 190 MPV 8.8 Sodium 145 Potassium 4.7 Chloride 105 Carbon Dioxide 34 H Anion Gap 6 L BUN 28 H Creatinine 1.0 Creat Clearance w eGFR 56.75 Random Glucose 117 H Calcium 8.9 Active Medications Generic Name Dose Route Start Last Admin Trade Name Freq PRN Reason Stop Dose Admin Albuterol Sulfate 1 amp 05/29/18 13:11 Ventolin 0.083% Nebulizer Soln - NEB Q1H PRN SHORT OF BREATH/WHEEZING Albuterol/Ipratropium 1 amp 05/30/18 10:36 05/30/18 13:54 Duoneb - NEB 1 amp Q4HPO ZACHARY Administration Budesonide/Formoterol Fumarate 2 puff 05/29/18 13:15 Symbicort 160/4.5mcg - IH BID ZACHARY Diltiazem HCl 30 mg 05/27/18 22:00 05/30/18 06:47 Cardizem - PO 30 mg TID ZACHARY Administration Ferrous Sulfate 325 mg 05/28/18 10:00 05/30/18 11:44 Feosol - PO 325 mg DAILY ZACHARY Administration Folic Acid 1 mg 05/28/18 10:00 05/30/18 11:36 Folic Acid - PO 1 mg DAILY ZACHARY Administration Heparin Sodium (Porcine) 5,000 unit 05/28/18 06:00 05/30/18 06:47 Heparin - SQ Not Given TID ZACHARY Azithromycin 500 mg/ Dextrose 250 mls @ 250 mls/hr 05/27/18 17:36 05/30/18 12 :11 IVPB 250 mls/hr DAILY ZACHARY Administration Ceftriaxone Sodium 1 gm/ 50 mls @ 100 mls/hr 05/28/18 10:00 05/30/18 11:36 Dextrose IVPB 100 mls/hr DAILY ZACHARY Administration Protocol Methylprednisolone Sodium Succinate 40 mg 05/29/18 13:15 05/30/18 09:48 Solu-Medrol - IVPUSH 40 mg Q6H-IV ZACHARY Administration Pantoprazole Sodium 20 mg 05/30/18 10:00 05/30/18 11:36 Protonix - PO 20 mg DAILY ZACHARY Administration Roflumilast 500 mcg 05/30/18 13:00 Daliresp - PO DAILY ZACHARY ASSESSMENT/PLAN: Chest X-Ray (05/27/18): No significant interval change. Persistent bilateral increased interstitial markings. Differential diagnosis again includes chronic interstitial lung disease. Cannot rule out noncardiogenic mild pulmonary venous congestion or interstitial infiltrates. ASSESSMENT/PLAN: Patient is a 58 year old female who presented with shortness of breath and found to be in COPD exacerbation. Patient admitted for further monitoring and management. #Acute on Chronic COPD exacerbation : - may be 2/2 CAP vs inhaled chemicals (house paint) - Azithromycin 250mg daily, Ceftriaxone 1gm daily on day 4, to complete 5 days. - Pulmonary Consult. Recs appreciated: - Continue Solu-medrol 40mg q6h - Duonebs QID - Albuterol PRN - Add Daliresp (500mcg daily) - Symbicort not given. Pt reports allergy to symbicort. - Continue O2 at 3L - pt uses 3L at home - Keep O2 satn >90% - Chest PT - Pt has frequent exacerbations, may need to be on chronic low dose steroids at home. #Atypical Chest Pain: midsternal tenderness on palpation - Likely due to COPD Exac - Troponins negative x1, unlikely cardiac in nature #Microcytic Anemia - likely due to RUBY - now at baseline Hgb - Fe Panel previously showed low Fe, low Fesat, low-normal ferritin - Continue Fe supplements #Hypertension - Continue Cardizem 30mg TID - Monitor BP closely #FEN - not on fluids - lytes wnl - Sodium controlled diet #Prophylaxis - Heparin SQ TID - GI Not indicated - Deconditioning: PT not needed, patient is ambulatory #Disposition - Admit to Med/Surg Visit type - Emergency Visit Emergency Visit: Yes ED Registration Date: 05/27/18 Care time: The patient presented to the Emergency Department on the above date and was hospitalized for further evaluation of their emergent condition. - New Patient This patient is new to me today: Yes Date on this admission: 05/30/18 - Critical Care Critical Care patient: No
[2018-05-30] MEDS: ROFLUMILAST 500 MCG TABLET PO SCH (14:48)
[2018-05-30] MEDS: BUDESONIDE/FORMETEROL FUMARATE 160/4.5 mcg INHALER IH SCH (14:49)
[2018-05-30] MEDS ORDERED: PT OWN MED DRAWER 7, Y5N ONE (15:11)
--- NOTE | 2018-05-30 20:04 | HOSP ---
Subjective - Review of Symptoms Subjective: I was paged by nursing that patient was complaining of midsternal chest pain. At this time, nurse reported vitals of 150/80, HR 90, 96% saturation on 3L NC. On my interview, patient complained of midsternal chest pain she describes as pressure. It does not radiate to her arm, neck or back. The pain does not worsen with breathing and does not change with arm or neck movement. Patient says she finds some relief with laying on her left side. Patient is unsure if it the pain changes when I press on her chest. She says this pain is much sharper than the pain she has felt in the past. Currently she is having 7/10 pain, at worst it was 9/10. General: No: Chills Pulmonary: Yes: Dyspnea. No: Cough Cardiovascular: Yes: Chest Pain Gastrointestinal: No: Nausea, Vomiting, Abdominal Pain Neurological: No: Weakness, Numbness Physical Examination Vital Signs: Vital Signs Temperature 98.1 F 05/30/18 18:00 Pulse Rate 92 H 05/30/18 18:00 Respiratory Rate 20 05/30/18 18:00 Blood Pressure 131/85 05/30/18 18:00 O2 Sat by Pulse Oximetry (%) 100 05/30/18 09:00 Constitutional: Yes: Mild Distress. No: Diaphoresis Cardiovascular: Yes: Regular Rate and Rhythm, S1, S2 Respiratory: Yes: CTA Bilaterally, On Nasal O2 (3L), SOB Labs: CBC, BMP 05/30/18 07:00 05/30/18 07:00 Hospitalist Encounter Assessment: Atypical Chest Pain - Unlikely to be ACS but will order Stat EKG, Troponin - CXR to r/o effusion, Per my read it looks unchanged from prior but official read pending - Tylenol PO 650mg ordered Visit type - Emergency Visit Emergency Visit: Yes ED Registration Date: 05/27/18 Care time: The patient presented to the Emergency Department on the above date and was hospitalized for further evaluation of their emergent condition. - New Patient This patient is new to me today: Yes Date on this admission: 05/30/18 - Critical Care Critical Care patient: No
[2018-05-30] MEDS: ACETAMINOPHEN 325 MG TABLET (FP) PO PRN (21:59)
[2018-05-31] MEDS: ALBUTEROL SO4 2.5/IPRATROPIUM 0.5 INH SOL 3 ML VIAL.NEB. NEB SCH ×6 (02:00→21:01)
[2018-05-31] MEDS: methylPREDNISolone NA SUCC 40 MG/1 ML VIAL IVPUSH SCH ×4 (04:01→21:18)
[2018-05-31] MEDS: HEPARIN NA (PORCINE) 5,000 UNITS/ML 1ML VIAL SQ SCH ×3 (06:45→21:19)
[2018-05-31] MEDS: dilTIAZem HCL 30 MG TABLET (FP) PO SCH ×4 (06:45→23:31)
[2018-05-31 07:35] LABS: BASO % 0.3 % (0-2.0); HEMATOCRIT 32.5 % (32.4-45.2); HEMOGLOBIN 9.7 GM/dL (10.7-15.3); LYMPH % 6.3 % (8-40); MCH 21.8 pg (25.7-33.7); MCHC 29.9 g/dl (32.0-36.0); MEAN CELL VOLUME 72.9 fl (80-96); MEAN PLT VOLUME 8.7 fl (7.5-11.1); MONO % 5.4 % (3.8-10.2); PLATELET COUNT 174 K/MM3 (134-434); RBC 4.45 M/mm3 (3.60-5.2); RDW 15.8 % (11.6-15.6); WHITE BLOOD COUNT 13.6 K/mm3 (4.0-10.0)
[2018-05-31 07:57] LABS: CHLORIDE 103 mmol/L (98-107); POTASSIUM 4.4 mmol/L (3.5-5.1); SODIUM 143 mmol/L (136-145)
--- NOTE | 2018-05-31 07:58 | PN ---
Teaching Attending Note Name of Resident: Babs Flores ATTENDING PHYSICIAN STATEMENT I saw and evaluated the patient. I reviewed the resident's note and discussed the case with the resident. I agree with the resident's findings and plan as documented with exceptions below. SUBJECTIVE: Patient seen and examined. Breathing and cough with some improvement, left sided chest pain since admission, improved when sleeps on the same side, no relation with coughing or deep breaths. OBJECTIVE: Vital Signs Period Temp Pulse Resp BP Sys/Echevarria Pulse Ox Last 24 Hr 97.8 F-98.3 F 78-93 18-20 131-156/83-93 100-100 Intake & Output 05/28/18 05/29/18 05/30/18 05/31/18 23:59 23:59 23:59 23:59 Intake Total 8690 273 7535 Balance 3582 366 3224 Weight 146 lb 8 oz General; sitting in bed, mild tachypnea, positive use of acessory muscles, needs break to finish a full sentence Chest: bilateral fine rales and scattered wheezing, positive air entry Abdomen: soft, NT, ND, positive bowel sounds Extremities: no edema or calf tenderness Home Medications Medication Instructions Recorded Cholecalciferol (Vitamin D3) 50,000 unit PO WEEKLY 12/05/17 [Vitamin D -] Hydroxyzine Pamoate 25 mg PO DAILY 12/05/17 Albuterol Sulfate Inhaler - 1 - 2 inh PO Q4H PRN #1 inhaler 01/20/18 [Ventolin HFA Inhaler -] Ferrous Sulfate [Feosol] 325 mg PO DAILY 02/04/18 Fluticasone/Salmeterol [Advair 1 puff IN QID PRN 02/04/18 250-50 Diskus] Folic Acid 1 mg PO DAILY 02/04/18 Umeclidinium [place] [Incruse 62.5 mcg IH DAILY 02/04/18 Ellipta] Diltiazem [Cardizem -] 30 mg PO TID 30 Days #90 tablet 02/12/18 Montelukast Na [Singulair -] 10 mg PO HS #30 tablet 02/12/18 Polyethylene Glycol 3350 [Miralax 17 gm PO DAILY PRN 5 Days #5 bottle 02/12/18 119 gm Btl -] Albuterol Sulfate Inhaler - 1 - 2 inh PO Q4H #1 inhaler 04/25/18 [Ventolin Hfa Inhaler -] Ipratropium/Albuterol Sulfate 4 gm IH BID #20 aer.w.adap 04/25/18 [Combivent Respimat Inhal Kayenta] Active Medications Acetaminophen (Tylenol -) 650 mg PO Q6H PRN PRN Reason: PAIN LEVEL 6-10 Last Admin: 05/30/18 21:59 Dose: 650 mg Albuterol Sulfate (Ventolin 0.083% Nebulizer Soln -) 1 amp NEB Q1H PRN PRN Reason: SHORT OF BREATH/WHEEZING Albuterol/Ipratropium (Duoneb -) 1 amp NEB Q4HPO [facility] Last Admin: 05/31/18 05:15 Dose: 1 amp Diltiazem HCl (Cardizem -) 30 mg PO TID [facility] Last Admin: 05/31/18 06:45 Dose: 30 mg Ferrous Sulfate (Feosol -) 325 mg PO DAILY [facility] Last Admin: 05/30/18 11:44 Dose: 325 mg Folic Acid (Folic Acid -) 1 mg PO DAILY [facility] Last Admin: 05/30/18 11:36 Dose: 1 mg Heparin Sodium (Porcine) (Heparin -) 5,000 unit SQ TID [facility] Last Admin: 05/31/18 06:45 Dose: Not Given Azithromycin 500 mg/ Dextrose 250 mls @ 250 mls/hr IVPB DAILY [facility] Last Admin: 05/30/18 12:11 Dose: 250 mls/hr Ceftriaxone Sodium 1 gm/ (Dextrose) 50 mls @ 100 mls/hr IVPB DAILY [facility]; Protocol Last Admin: 05/30/18 11:36 Dose: 100 mls/hr Methylprednisolone Sodium Succinate (Solu-Medrol -) 40 mg IVPUSH Q6H-IV [facility] Last Admin: 05/31/18 04:01 Dose: 40 mg Pantoprazole Sodium (Protonix -) 20 mg PO DAILY [facility] Last Admin: 05/30/18 11:36 Dose: 20 mg Roflumilast (Daliresp -) 500 mcg PO DAILY [facility] Last Admin: 05/30/18 14:48 Dose: 500 mcg Microbiology 05/27/18 17:42 Blood - Peripheral Venous Blood Culture - Preliminary NO GROWTH OBTAINED AFTER 72 HOURS, INCUBATION TO CONTINUE FOR 2 DAYS. 05/27/18 17:42 Blood - Peripheral Venous Blood Culture - Preliminary NO GROWTH OBTAINED AFTER 72 HOURS, INCUBATION TO CONTINUE FOR 2 DAYS. CXR noted ASSESSMENT AND PLAN: 57yo F wtih PMH COPD on 2L NC at home, HTN and iron deficiency anemia admitted with shortness of breath and cugh. 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 Pulmonary input noted. Solumedrol 40 mg Q6h, standing and prn nebs. Ceftriaxone/azithromycin day 5, continue for now. CT chest non contrast to assess bullous disease and pleura. Description of pain not concerning for PE. Check ABG, may benefit from bipap if fails to improve. Frequent exacerbations, will need to address standing steroids on d.c. Allergic to symbicort, advised to bring advair from home if able. Continue daliresp. Continue cardizem, Increase to 30 mg PO Q6h. Suspect HR/BP partly from breathing /nebs. hb overall stable from prior. DVTPPX heparin DIspo planning when breathing improved. Chest PT, address pulmonary rehab based on clinical course. Plan discussed with patient in detail, all questions answered.
[2018-05-31 08:02] LABS: ANION GAP 4 MMOL/L (8-16); BLOOD UREA NITROGEN 32 mg/dL (7-18); CALCIUM 8.7 mg/dL (8.5-10.1); CO2 36 mmol/L (21-32); CREATININE 1.1 mg/dL (0.55-1.02); GLUCOSE,RANDOM 123 mg/dL (74-106)
[2018-05-31] MEDS ORDERED: cefTRIAXone SODIUM 1 GM VIAL ONE (08:52)
[2018-05-31] MEDS ORDERED: DEXTROSE 5%-WATER - 50 ML IVPB ONE (08:52)
[2018-05-31] MEDS ORDERED: PT OWN MED DRAWER 7, Y5N ONE (08:54)
[2018-05-31] MEDS: FOLIC ACID 1 MG TABLET (FP) PO SCH (09:16)
[2018-05-31] MEDS: FERROUS SO4 325 MG TABLET (FP) PO SCH (09:16)
[2018-05-31] MEDS: PANTOPRAZOLE 20 MG TABLET (FP) PO SCH (09:16)
[2018-05-31] MEDS: CEFTRIAXONE 1 GM in DEXTROSE 5%-WATER - 50 ML IVPB SCH (09:22)
[2018-05-31 09:24] LABS: MAGNESIUM 2.7 mg/dL (1.8-2.4); PHOSPHOROUS 3.1 mg/dL (2.5-4.9)
[2018-05-31] MEDS: ROFLUMILAST 500 MCG TABLET PO SCH (09:28)
[2018-05-31 10:28] LABS: ANISOCYTOSIS 1+; MACROCYTOSIS 0; PLATELET ESTIMATE NORMAL; TARGET CELLS 1+
[2018-05-31] MEDS: AZITHROMYCIN IVPB 500 MG in DEXTROSE 5%-WATER - 250 ML IVPB SCH (10:31)
[2018-05-31] MEDS: ACETAMINOPHEN 325 MG TABLET (FP) PO PRN ×2 (10:44→17:42)
--- NOTE | 2018-05-31 12:16 | PN ---
Progress Note (short form) - Note Progress Note: PULMONARY States breathing about the same or maybe slightly better. Still with cough, wheezing and chest tightness. Vital Signs Period Temp Pulse Resp BP Sys/Echevarria Pulse Ox Last 24 Hr 97.6 F-98.2 F 76-93 18-20 131-156/76-93 100 Gen: tachypneic with speaking Heart: RRR Lung: poor air movement, scattered wheezes and rhonchi Abd: soft, nontender Ext: no edema CBC, BMP 05/31/18 06:20 05/31/18 06:20 Active Medications Acetaminophen (Tylenol -) 650 mg PO Q6H PRN PRN Reason: PAIN LEVEL 6-10 Last Admin: 05/31/18 10:44 Dose: 650 mg Albuterol Sulfate (Ventolin 0.083% Nebulizer Soln -) 1 amp NEB Q1H PRN PRN Reason: SHORT OF BREATH/WHEEZING Albuterol/Ipratropium (Duoneb -) 1 amp NEB Q4HPO ZACHARY Last Admin: 05/31/18 09:38 Dose: 1 amp Diltiazem HCl (Cardizem -) 30 mg PO Q6HPO ZACHARY Ferrous Sulfate (Feosol -) 325 mg PO DAILY [facility] Last Admin: 05/31/18 09:16 Dose: 325 mg Folic Acid (Folic Acid -) 1 mg PO DAILY [facility] Last Admin: 05/31/18 09:16 Dose: 1 mg Heparin Sodium (Porcine) (Heparin -) 5,000 unit SQ TID [facility] Last Admin: 05/31/18 06:45 Dose: Not Given Azithromycin 500 mg/ Dextrose 250 mls @ 250 mls/hr IVPB DAILY [facility] Last Admin: 05/31/18 10:31 Dose: 250 mls/hr Ceftriaxone Sodium 1 gm/ (Dextrose) 50 mls @ 100 mls/hr IVPB DAILY [facility]; Protocol Last Admin: 05/31/18 09:22 Dose: 100 mls/hr Methylprednisolone Sodium Succinate (Solu-Medrol -) 40 mg IVPUSH Q6H-IV ZACHARY Last Admin: 05/31/18 09:16 Dose: 40 mg Pantoprazole Sodium (Protonix -) 20 mg PO DAILY [facility] Last Admin: 05/31/18 09:16 Dose: 20 mg Roflumilast (Daliresp -) 500 mcg PO DAILY [facility] Last Admin: 05/31/18 09:28 Dose: 500 mcg A/P Acute COPD Exacerbation Chronic Hypoxic Respiratory Failure HTN - continue medrol at current dose - inhaled bronchodilators standing and PRN - O2 to keep SpO2 90% - continue daliresp - pt with frequent exacerbations, may need to be on chronic low dose steroids - DVT prophylaxis
--- NOTE | 2018-05-31 12:26 | PN ---
Physical Exam: SUBJECTIVE: Patient seen and examined at bedside this morning. Patient still complains of midsternal chest pain, worse with lying on her right side. Pt c/o chest pain last night, "more severe" and "sharper" than usual. EKG and trop done were noted. CXR done revealed no acute changes. She was given Tylenol 650mg PO which provided slight relief. OBJECTIVE: Vital Signs Period Temp Pulse Resp BP Sys/Echevarria Pulse Ox Last 24 Hr 97.6 F-98.2 F 76-93 18-20 131-156/76-93 100 GENERAL: The patient is awake, alert, and fully oriented, on 3L NC HEAD: Normal with no signs of trauma. NECK: Trachea midline, full range of motion, supple. LUNGS: +midsternal tenderness on palpation, b/l scattered wheezing with rales b/ l HEART: Regular rate and rhythm, S1, S2 without murmur, rub or gallop. ABDOMEN: Soft, nontender, nondistended, normoactive bowel sounds. EXTREMITIES: 2+ pulses, warm, well-perfused, no edema. NEUROLOGICAL: Cranial nerves II through XII grossly intact. Normal speech, gait not observed. PSYCH: Normal mood, normal affect. SKIN: Warm, dry, normal turgor, no rashes or lesions noted Laboratory Results - last 24 hr 05/30/18 05/31/18 05/31/18 20:30 06:20 06:20 WBC 13.6 H RBC 4.45 Hgb 9.7 L Hct 32.5 MCV 72.9 L MCH 21.8 L MCHC 29.9 L RDW 15.8 H Plt Count 174 MPV 8.7 Absolute Neuts (auto) 11.9 H Neutrophils % 88.0 H D Neutrophils % (Manual) 82.3 Band Neutrophils % 1.0 Lymphocytes % 6.3 L D Lymphocytes % (Manual) 7.3 L D Monocytes % 5.4 Monocytes % (Manual) 3 L Eosinophils % 0.0 D Eosinophils % (Manual) 0.0 Basophils % 0.3 Basophils % (Manual) 0.0 Myelocytes % (Man) 2 Promyelocytes % (Man) 0 Blast Cells % (Manual) 0 Nucleated RBC % 0 Metamyelocytes 4 H D Hypochromia 2+ Platelet Estimate Normal Polychromasia 0 Poikilocytosis 0 Anisocytosis 1+ Microcytosis 1+ Macrocytosis 0 Target Cells 1+ Sodium 143 Potassium 4.4 Chloride 103 Carbon Dioxide 36 H Anion Gap 4 L BUN 32 H Creatinine 1.1 H Creat Clearance w eGFR 50.84 Random Glucose 123 H Calcium 8.7 Phosphorus Magnesium Troponin I < 0.02 05/31/18 06:20 WBC RBC Hgb Hct MCV MCH MCHC RDW Plt Count MPV Absolute Neuts (auto) Neutrophils % Neutrophils % (Manual) Band Neutrophils % Lymphocytes % Lymphocytes % (Manual) Monocytes % Monocytes % (Manual) Eosinophils % Eosinophils % (Manual) Basophils % Basophils % (Manual) Myelocytes % (Man) Promyelocytes % (Man) Blast Cells % (Manual) Nucleated RBC % Metamyelocytes Hypochromia Platelet Estimate Polychromasia Poikilocytosis Anisocytosis Microcytosis Macrocytosis Target Cells Sodium Potassium Chloride Carbon Dioxide Anion Gap BUN Creatinine Creat Clearance w eGFR Random Glucose Calcium Phosphorus 3.1 Magnesium 2.7 H Troponin I Active Medications Generic Name Dose Route Start Last Admin Trade Name Freq PRN Reason Stop Dose Admin Acetaminophen 650 mg 05/30/18 20:49 05/31/18 10:44 Tylenol - PO 650 mg Q6H PRN Administration PAIN LEVEL 6-10 Albuterol Sulfate 1 amp 05/29/18 13:11 Ventolin 0.083% Nebulizer Soln - NEB Q1H PRN SHORT OF BREATH/WHEEZING Albuterol/Ipratropium 1 amp 05/30/18 10:36 05/31/18 09:38 Duoneb - NEB 1 amp Q4HPO ZACHARY Administration Diltiazem HCl 30 mg 05/31/18 12:00 Cardizem - PO Q6HPO ZACHARY Ferrous Sulfate 325 mg 05/28/18 10:00 05/31/18 09:16 Feosol - PO 325 mg DAILY ZACHARY Administration Folic Acid 1 mg 05/28/18 10:00 05/31/18 09:16 Folic Acid - PO 1 mg DAILY ZACHARY Administration Heparin Sodium (Porcine) 5,000 unit 05/28/18 06:00 05/31/18 06:45 Heparin - SQ Not Given TID ZACHARY Azithromycin 500 mg/ Dextrose 250 mls @ 250 mls/hr 05/27/18 17:36 05/31/18 10 :31 IVPB 250 mls/hr DAILY ZACHARY Administration Ceftriaxone Sodium 1 gm/ 50 mls @ 100 mls/hr 05/28/18 10:00 05/31/18 09:22 Dextrose IVPB 100 mls/hr DAILY ZACHARY Administration Protocol Methylprednisolone Sodium Succinate 40 mg 05/29/18 13:15 05/31/18 09:16 Solu-Medrol - IVPUSH 40 mg Q6H-IV ZACHARY Administration Pantoprazole Sodium 20 mg 05/30/18 10:00 05/31/18 09:16 Protonix - PO 20 mg DAILY ZACHARY Administration Roflumilast 500 mcg 05/30/18 13:00 05/31/18 09:28 Daliresp - PO 500 mcg DAILY ZACHARY Administration Imaging: Chest X-Ray (05/27/18): No significant interval change. Persistent bilateral increased interstitial markings. Differential diagnosis again includes chronic interstitial lung disease. Cannot rule out noncardiogenic mild pulmonary venous congestion or interstitial infiltrates. Chest X-ray (05/30/12): No acute pathology or significant change. ASSESSMENT/PLAN: Patient is a 58 year old female who presented with shortness of breath and found to be in COPD exacerbation. Patient admitted for further monitoring and management. #Acute on Chronic COPD exacerbation : - may be 2/2 CAP vs inhaled chemicals (house paint) - Azithromycin 250mg daily, Ceftriaxone 1gm daily on day 5 - Pulmonary Consult. Recs appreciated: - Continue Solu-medrol 40mg q6h - Duonebs QID - Albuterol PRN - Add Daliresp (500mcg daily) - Symbicort not given. Pt reports allergy to symbicort. - Continue O2 at 3L - pt uses 3L at home - Keep O2 satn >90% - Chest PT - Pt has frequent exacerbations, may need to be on chronic low dose steroids at home. - Chest CT w/o contrast done - pending official read - ABG done - may benefit from bipap if fails to improve. #Atypical Chest Pain: midsternal tenderness on palpation, positional - worse when lying on the right - Likely musculoskeletal due to COPD Exac - Troponins negative x1, unlikely cardiac in nature #Microcytic Anemia - likely due to RUBY - now at baseline Hgb - Fe Panel previously showed low Fe, low Fesat, low-normal ferritin - Continue Fe supplements #Hypertension - Increase Cardizem to 30mg q6h - Monitor BP closely #FEN - not on fluids - lytes wnl - Sodium controlled diet #Prophylaxis - Heparin SQ TID - GI Not indicated - Deconditioning: PT not needed, patient is ambulatory #Disposition - Admit to Med/Surg Visit type - Emergency Visit Emergency Visit: Yes ED Registration Date: 05/27/18 Care time: The patient presented to the Emergency Department on the above date and was hospitalized for further evaluation of their emergent condition. - New Patient This patient is new to me today: Yes Date on this admission: 05/31/18 - Critical Care Critical Care patient: No
[2018-05-31 14:09] LABS: ARTERIAL BLD GAS O2 SATURATION 97.7 % (90-98.9); ARTERIAL BLOOD GAS BASE EXCESS 5.4 meq/l (-2-2); ARTERIAL BLOOD GAS PCO2 61.2 mmHg (35-45); ARTERIAL BLOOD GAS pH 7.34 (7.35-7.45)
[2018-05-31 14:10] LABS: ALLENS TEST POSITIVE
[2018-05-31] MEDS ORDERED: POLYETHYLENE GLYCOL 3350 119 GM BTL PO PRN (14:40)
--- NOTE | 2018-05-31 17:12 | EKG ---
Test Reason : Blood Pressure : / mmHG Vent. Rate : 087 BPM Atrial Rate : 087 BPM P-R Int : 132 ms QRS Dur : 082 ms QT Int : 368 ms P-R-T Axes : 084 052 066 degrees QTc Int : 442 ms NORMAL SINUS RHYTHM NORMAL ECG Confirmed by MD LEELEE, KALLI ([id number]) on 05/31/2018 5:12:44 PM Referred By: Marilin RIVREA Confirmed By:KALLI MCKOY MD
--- NOTE | 2018-05-31 17:16 | EKG ---
Test Reason : Blood Pressure : / mmHG Vent. Rate : 089 BPM Atrial Rate : 089 BPM P-R Int : 134 ms QRS Dur : 080 ms QT Int : 386 ms P-R-T Axes : 099 140 119 degrees QTc Int : 469 ms SUSPECT ARM LEAD REVERSAL, INTERPRETATION ASSUMES NO REVERSAL NORMAL SINUS RHYTHM LEFT POSTERIOR FASCICULAR BLOCK ABNORMAL ECG Confirmed by MD LEELEE, KALLI ([id number]) on 05/31/2018 5:15:46 PM Referred By: Confirmed By:KALLI MCKOY MD
[2018-05-31] MEDS: MONTELUKAST NA 10 MG TABLET PO SCH (21:18)
[2018-06-01] MEDS: ALBUTEROL SO4 2.5/IPRATROPIUM 0.5 INH SOL 3 ML VIAL.NEB. NEB SCH ×6 (01:17→21:02)
[2018-06-01] MEDS: methylPREDNISolone NA SUCC 40 MG/1 ML VIAL IVPUSH SCH ×4 (03:45→21:41)
[2018-06-01] MEDS: dilTIAZem HCL 30 MG TABLET (FP) PO SCH ×4 (06:44→23:36)
[2018-06-01] MEDS: HEPARIN NA (PORCINE) 5,000 UNITS/ML 1ML VIAL SQ SCH ×3 (06:44→21:41)
[2018-06-01 07:07] LABS: BASO % 0.1 % (0-2.0); EOS % 0.1 % (0-4.5); HEMOGLOBIN 9.4 GM/dL (10.7-15.3); LYMPH % 6.3 % (8-40); MCH 21.9 pg (25.7-33.7); MCHC 30.2 g/dl (32.0-36.0); MEAN CELL VOLUME 72.5 fl (80-96); MEAN PLT VOLUME 8.8 fl (7.5-11.1); MONO % 3.9 % (3.8-10.2); NEUT % 89.6 % (42.8-82.8); PLATELET COUNT 160 K/MM3 (134-434); RBC 4.28 M/mm3 (3.60-5.2); RDW 15.8 % (11.6-15.6); WHITE BLOOD COUNT 11.4 K/mm3 (4.0-10.0)
[2018-06-01] MEDS: BUDESONIDE/FORMETEROL FUMARATE 160/4.5 mcg INHALER IH SCH ×2 (07:46→07:47)
[2018-06-01 07:56] LABS: ANION GAP 9 MMOL/L (8-16); BLOOD UREA NITROGEN 31 mg/dL (7-18); CALCIUM 8.6 mg/dL (8.5-10.1); CHLORIDE 103 mmol/L (98-107); CO2 33 mmol/L (21-32); GLUCOSE,RANDOM 166 mg/dL (74-106); POTASSIUM 4.3 mmol/L (3.5-5.1); SODIUM 145 mmol/L (136-145)
--- NOTE | 2018-06-01 07:57 | PN ---
Teaching Attending Note Name of Resident: Babs Flores ATTENDING PHYSICIAN STATEMENT I saw and evaluated the patient. I reviewed the resident's note and discussed the case with the resident. I agree with the resident's findings and plan as documented with exceptions below. SUBJECTIVE: Patient seen and examined. still with left sided chest pain, positional. Breathing with some improvement, no new complaints. OBJECTIVE: Vital Signs Period Temp Pulse Resp BP Sys/Echevarria Pulse Ox Last 24 Hr 97.6 F-98.8 F 76-98 18-20 147-161/76-105 100-100 Intake & Output 05/29/18 05/30/18 05/31/18 06/01/18 23:59 23:59 23:59 23:59 Intake Total 910 1380 2040 Balance 910 1380 2040 General: lying in bed in no acute distress Chest: improved air entry, less wheezing Abdomen: soft, NT, nD Extremities: no edema Active Medications Acetaminophen (Tylenol -) 650 mg PO Q6H PRN PRN Reason: PAIN LEVEL 6-10 Last Admin: 05/31/18 17:42 Dose: 650 mg Albuterol Sulfate (Ventolin 0.083% Nebulizer Soln -) 1 amp NEB Q1H PRN PRN Reason: SHORT OF BREATH/WHEEZING Albuterol/Ipratropium (Duoneb -) 1 amp NEB Q4HPO [facility] Last Admin: 06/01/18 06:35 Dose: 1 amp Diltiazem HCl (Cardizem -) 30 mg PO Q6HPO [facility] Last Admin: 06/01/18 06:44 Dose: 30 mg Ergocalciferol (Drisdol -) 50,000 unit PO Q7D@1000 [facility] Ferrous Sulfate (Feosol -) 325 mg PO DAILY [facility] Last Admin: 05/31/18 09:16 Dose: 325 mg Folic Acid (Folic Acid -) 1 mg PO DAILY [facility] Last Admin: 05/31/18 09:16 Dose: 1 mg Heparin Sodium (Porcine) (Heparin -) 5,000 unit SQ TID [facility] Last Admin: 06/01/18 06:44 Dose: 5,000 unit Azithromycin 500 mg/ Dextrose 250 mls @ 250 mls/hr IVPB DAILY [facility] Last Admin: 05/31/18 10:31 Dose: 250 mls/hr Ceftriaxone Sodium 1 gm/ (Dextrose) 50 mls @ 100 mls/hr IVPB DAILY [facility]; Protocol Last Admin: 05/31/18 09:22 Dose: 100 mls/hr Methylprednisolone Sodium Succinate (Solu-Medrol -) 40 mg IVPUSH Q6H-IV [facility] Last Admin: 06/01/18 03:45 Dose: 40 mg Montelukast Sodium (Singulair -) 10 mg PO HS [facility] Last Admin: 05/31/18 21:18 Dose: 10 mg Pantoprazole Sodium (Protonix -) 20 mg PO DAILY [facility] Last Admin: 05/31/18 09:16 Dose: 20 mg Polyethylene Glycol (Miralax (For Daily Use) -) 17 gm PO DAILY PRN PRN Reason: CONSTIPATION Roflumilast (Daliresp -) 500 mcg PO DAILY [facility] Last Admin: 05/31/18 09:28 Dose: 500 mcg Laboratory Results - last 24 hr 05/31/18 05/31/1818 06:20 06:20 06:20 WBC 13.6 H RBC 4.45 Hgb 9.7 L Hct 32.5 MCV 72.9 L MCH 21.8 L MCHC 29.9 L RDW 15.8 H Plt Count 174 MPV 8.7 Absolute Neuts (auto) 11.9 H Neutrophils % 88.0 H D Neutrophils % (Manual) 82.3 Band Neutrophils % 1.0 Lymphocytes % 6.3 L D Lymphocytes % (Manual) 7.3 L D Monocytes % 5.4 Monocytes % (Manual) 3 L Eosinophils % 0.0 D Eosinophils % (Manual) 0.0 Basophils % 0.3 Basophils % (Manual) 0.0 Myelocytes % (Man) 2 Promyelocytes % (Man) 0 Blast Cells % (Manual) 0 Nucleated RBC % 0 Metamyelocytes 4 H D Hypochromia 2+ Platelet Estimate Normal Polychromasia 0 Poikilocytosis 0 Anisocytosis 1+ Microcytosis 1+ Macrocytosis 0 Target Cells 1+ Anticoagulation Therapy Puncture Site ABG pH ABG pCO2 at Pt Temp ABG pO2 at Pt Temp ABG HCO3 ABG O2 Sat (Measured) ABG O2 Content ABG Base Excess Timmy Test O2 Delivery Device Oxygen Flow Rate Vent Mode Vent Rate Mechanical Rate PEEP Pressure Support Vent Sodium 143 Potassium 4.4 Chloride 103 Carbon Dioxide 36 H Anion Gap 4 L BUN 32 H Creatinine 1.1 H Creat Clearance w eGFR 50.84 Random Glucose 123 H Calcium 8.7 Phosphorus 3.1 Magnesium 2.7 H 05/31/18 06/01/18 13:59 06:15 WBC 11.4 H RBC 4.28 Hgb 9.4 L Hct 31.0 L MCV 72.5 L MCH 21.9 L MCHC 30.2 L RDW 15.8 H Plt Count 160 MPV 8.8 Absolute Neuts (auto) 10.3 H Neutrophils % 89.6 H Neutrophils % (Manual) Band Neutrophils % Lymphocytes % 6.3 L Lymphocytes % (Manual) Monocytes % 3.9 Monocytes % (Manual) Eosinophils % 0.1 D Eosinophils % (Manual) Basophils % 0.1 Basophils % (Manual) Myelocytes % (Man) Promyelocytes % (Man) Blast Cells % (Manual) Nucleated RBC % 0 Metamyelocytes Hypochromia Platelet Estimate Polychromasia Poikilocytosis Anisocytosis Microcytosis Macrocytosis Target Cells Anticoagulation Therapy No Result Required. Puncture Site Right radial ABG pH 7.34 L ABG pCO2 at Pt Temp 61.2 H* ABG pO2 at Pt Temp 101.0 H ABG HCO3 32.1 H ABG O2 Sat (Measured) 97.7 ABG O2 Content 14.8 L ABG Base Excess 5.4 H Timmy Test Positive O2 Delivery Device Nasal cannula Oxygen Flow Rate 3l Vent Mode No Result Required. Vent Rate No Result Required. Mechanical Rate No PEEP 0.0 Pressure Support Vent No Result Required. Sodium Potassium Chloride Carbon Dioxide Anion Gap BUN Creatinine Creat Clearance w eGFR Random Glucose Calcium Phosphorus Magnesium CT chest results and images reviewed ASSESSMENT AND PLAN: 57yo F wtih PMH COPD on 2L NC at home, HTN and iron deficiency anemia admitted with shortness of breath and cugh. 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 CT chest noted. ABG noted. Overall improved. May benefit from hs bipap however given bullous disease, at risk for pneumothorax. Will hold off as improving for now. Pulmonary input noted. Solumedrol 40 mg Q6h, standing and prn nebs. Ceftriaxone/azithromycin day 6, continue for now. Will d/c ceftriaxone after 7 days and continue azithromycin. Frequent exacerbations, will need to address standing steroids on d.c. Chest pain improved with tylenol. Trial toradol 15 mg IV x 1. Allergic to symbicort, advised to bring advair from home if able. Continue daliresp. Cardizem increased to 30 mg PO Q6h. Suspect HR/BP partly from breathing/nebs. hb overall stable from prior. DVTPPX heparin DIspo planning when breathing improved. Chest PT, address pulmonary rehab based on clinical course. Plan discussed with patient in detail, all questions answered.
[2018-06-01] MEDS ORDERED: PT OWN MED DRAWER 7, Y5N ONE (09:11)
[2018-06-01] MEDS ORDERED: DEXTROSE 5%-WATER - 50 ML IVPB ONE (09:12)
[2018-06-01] MEDS ORDERED: cefTRIAXone SODIUM 1 GM VIAL ONE (09:12)
[2018-06-01] MEDS: PANTOPRAZOLE 20 MG TABLET (FP) PO SCH (09:23)
[2018-06-01] MEDS: FERROUS SO4 325 MG TABLET (FP) PO SCH (09:23)
[2018-06-01] MEDS: FOLIC ACID 1 MG TABLET (FP) PO SCH (09:23)
[2018-06-01] MEDS: ERGOCALCIFEROL (VITAMIN D2) 50,000 UNIT CAPSULE (FP) PO SCH (09:24)
[2018-06-01] MEDS: ROFLUMILAST 500 MCG TABLET PO SCH (09:24)
[2018-06-01] MEDS: CEFTRIAXONE 1 GM in DEXTROSE 5%-WATER - 50 ML IVPB SCH (09:24)
[2018-06-01] MEDS: ACETAMINOPHEN 325 MG TABLET (FP) PO PRN ×2 (09:25→23:36)
[2018-06-01 10:05] LABS: ANISOCYTOSIS 1+; MACROCYTOSIS 0
[2018-06-01] MEDS: AZITHROMYCIN IVPB 500 MG in DEXTROSE 5%-WATER - 250 ML IVPB SCH (10:29)
[2018-06-01] MEDS ORDERED: KETOROLAC TROMETHAMINE 15 MG/ML VIAL IVPUSH ONE ×2 (10:45→20:03)
[2018-06-01 11:00] LABS: PLATELET ESTIMATE ADEQUATE
--- NOTE | 2018-06-01 13:09 | PN ---
Physical Exam: SUBJECTIVE: Patient seen and examined at bedside this morning. Pt reports improvement of chest pain. Last intake of Tylenol was at 6pm last night. OBJECTIVE: Vital Signs Period Temp Pulse Resp BP Sys/Echevarria Pulse Ox Last 24 Hr 98.2 F-98.8 F 80-94 18-20 144-161/76-84 100-100 GENERAL: The patient is awake, alert, and fully oriented, in 3L NC HEAD: Normal with no signs of trauma. NECK: Trachea midline, full range of motion, supple. LUNGS: +scattered wheezes bilaterally HEART: Regular rate and rhythm, S1, S2 without murmur, rub or gallop. ABDOMEN: Soft, nontender, nondistended, normoactive bowel sounds. EXTREMITIES: 2+ pulses, warm, well-perfused, no edema. NEUROLOGICAL: Cranial nerves II through XII grossly intact. Normal speech, gait not observed. PSYCH: Normal mood, normal affect. SKIN: Warm, dry, normal turgor, no rashes or lesions noted Laboratory Results - last 24 hr 05/31/18 06/01/18 06/01/18 13:59 06:15 06:15 WBC 11.4 H RBC 4.28 Hgb 9.4 L Hct 31.0 L MCV 72.5 L MCH 21.9 L MCHC 30.2 L RDW 15.8 H Plt Count 160 MPV 8.8 Absolute Neuts (auto) 10.3 H Neutrophils % 89.6 H Neutrophils % (Manual) 89.1 H Band Neutrophils % 1.0 Lymphocytes % 6.3 L Lymphocytes % (Manual) 4.9 L D Monocytes % 3.9 Monocytes % (Manual) 2 L Eosinophils % 0.1 D Eosinophils % (Manual) 0.0 Basophils % 0.1 Basophils % (Manual) 0.0 Myelocytes % (Man) 2 Promyelocytes % (Man) 0 Blast Cells % (Manual) 0 Nucleated RBC % 0 Metamyelocytes 0 D Hypochromia 1+ Platelet Estimate Adequate Polychromasia 1+ Poikilocytosis 0 Anisocytosis 1+ Microcytosis 1+ Macrocytosis 0 Schistocytes 1+ Anticoagulation Therapy No Result Required. Puncture Site Right radial ABG pH 7.34 L ABG pCO2 at Pt Temp 61.2 H* ABG pO2 at Pt Temp 101.0 H ABG HCO3 32.1 H ABG O2 Sat (Measured) 97.7 ABG O2 Content 14.8 L ABG Base Excess 5.4 H Timmy Test Positive O2 Delivery Device Nasal cannula Oxygen Flow Rate 3l Vent Mode No Result Required. Vent Rate No Result Required. Mechanical Rate No PEEP 0.0 Pressure Support Vent No Result Required. Sodium 145 Potassium 4.3 Chloride 103 Carbon Dioxide 33 H Anion Gap 9 BUN 31 H Creatinine 1.0 Creat Clearance w eGFR 56.75 Random Glucose 166 H Calcium 8.6 CBC, BMP 06/01/18 06:15 06/01/18 06:15 Active Medications Generic Name Dose Route Start Last Admin Trade Name Freq PRN Reason Stop Dose Admin Acetaminophen 650 mg 05/30/18 20:49 06/01/18 09:25 Tylenol - PO 650 mg Q6H PRN Administration PAIN LEVEL 6-10 Albuterol Sulfate 1 amp 05/29/18 13:11 Ventolin 0.083% Nebulizer Soln - NEB Q1H PRN SHORT OF BREATH/WHEEZING Albuterol/Ipratropium 1 amp 05/30/18 10:36 06/01/18 09:25 Duoneb - NEB 1 amp Q4HPO [facility] Administration Diltiazem HCl 30 mg 05/31/18 12:00 06/01/18 06:44 Cardizem - PO 30 mg Q6HPO [facility] Administration Ergocalciferol 50,000 unit 06/01/18 10:00 06/01/18 09:24 Drisdol - PO 50,000 unit Q7D@1000 [facility] Administration Ferrous Sulfate 325 mg 05/28/18 10:00 06/01/18 09:23 Feosol - PO 325 mg DAILY [facility] Administration Folic Acid 1 mg 05/28/18 10:00 06/01/18 09:23 Folic Acid - PO 1 mg DAILY [facility] Administration Heparin Sodium (Porcine) 5,000 unit 05/28/18 06:00 06/01/18 06:44 Heparin - SQ 5,000 unit TID [facility] Administration Azithromycin 500 mg/ Dextrose 250 mls @ 250 mls/hr 05/27/18 17:36 06/01/18 10 :29 IVPB 250 mls/hr DAILY [facility] Administration Ceftriaxone Sodium 1 gm/ 50 mls @ 100 mls/hr 05/28/18 10:00 06/01/18 09:24 Dextrose IVPB 100 mls/hr DAILY [facility] Administration Protocol Methylprednisolone Sodium Succinate 40 mg 05/29/18 13:15 06/01/18 09:23 Solu-Medrol - IVPUSH 40 mg Q6H-IV [facility] Administration Montelukast Sodium 10 mg 05/31/18 22:00 05/31/18 21:18 Singulair - PO 10 mg HS [facility] Administration Pantoprazole Sodium 20 mg 05/30/18 10:00 06/01/18 09:23 Protonix - PO 20 mg DAILY [facility] Administration Polyethylene Glycol 17 gm 05/31/18 14:40 Miralax (For Daily Use) - PO DAILY PRN CONSTIPATION Roflumilast 500 mcg 05/30/18 13:00 06/01/18 09:24 Daliresp - PO 500 mcg DAILY [facility] Administration Imaging: Chest X-Ray (05/27/18): No significant interval change. Persistent bilateral increased interstitial markings. Differential diagnosis again includes chronic interstitial lung disease. Cannot rule out noncardiogenic mild pulmonary venous congestion or interstitial infiltrates. Chest X-ray (05/30/18): No acute pathology or significant change. Chest CT scan without contrast (05/31/18): Moderately severe COPD with extensive bilateral bronchiectasis. These findings are unchanged since a previous study of 02/07/18. There is no evidence of acute pathology within the chest. ASSESSMENT/PLAN: Patient is a 58 year old female who presented with shortness of breath and found to be in COPD exacerbation. Patient admitted for further monitoring and management. #Acute on Chronic COPD exacerbation : - may be 2/2 CAP vs inhaled chemicals (house paint) - Will continue Azithromycin 250mg daily - Ceftriaxone 1gm daily on day 6, will complete 7 days. - Pulmonary Consult. Recs appreciated: - Continue Solu-medrol 40mg q6h - Duonebs QID - Albuterol PRN - Add Daliresp (500mcg daily) - Symbicort not given. Pt reports allergy to symbicort. - Continue O2 at 3L - pt uses 3L at home - Keep O2 satn >90% - Chest PT - Pt has frequent exacerbations, may need to be on chronic low dose steroids at home. - Chest CT w/o contrast done - pending official read - ABG done - may benefit from bipap if fails to improve. #Atypical Chest Pain: midsternal tenderness on palpation, positional - worse when lying on the right - Likely musculoskeletal due to COPD Exac - Troponins negative x1, unlikely cardiac in nature #Microcytic Anemia - likely due to RUBY - now at baseline Hgb - Fe Panel previously showed low Fe, low Fesat, low-normal ferritin - Continue Fe supplements #Hypertension - Increase Cardizem to 30mg q6h - Monitor BP closely #FEN - not on fluids - lytes wnl - Sodium controlled diet #Prophylaxis - Heparin SQ TID - GI Not indicated - Deconditioning: PT not needed, patient is ambulatory #Disposition - Admit to Med/Surg Visit type - Emergency Visit Emergency Visit: Yes ED Registration Date: 05/27/18 Care time: The patient presented to the Emergency Department on the above date and was hospitalized for further evaluation of their emergent condition. - New Patient This patient is new to me today: Yes Date on this admission: 06/01/18 - Critical Care Critical Care patient: No
--- NOTE | 2018-06-01 14:25 | PN ---
Progress Note, Physician History of Present Illness: pulmonary alert,slowly improving,less dyspneic,+ chest discomfort - Current Medication List Current Medications: Active Medications Acetaminophen (Tylenol -) 650 mg PO Q6H PRN PRN Reason: PAIN LEVEL 6-10 Last Admin: 06/01/18 09:25 Dose: 650 mg Albuterol Sulfate (Ventolin 0.083% Nebulizer Soln -) 1 amp NEB Q1H PRN PRN Reason: SHORT OF BREATH/WHEEZING Albuterol/Ipratropium (Duoneb -) 1 amp NEB Q4HPO [facility] Last Admin: 06/01/18 09:25 Dose: 1 amp Diltiazem HCl (Cardizem -) 30 mg PO Q6HPO [facility] Last Admin: 06/01/18 13:09 Dose: 30 mg Ergocalciferol (Drisdol -) 50,000 unit PO Q7D@1000 [facility] Last Admin: 06/01/18 09:24 Dose: 50,000 unit Ferrous Sulfate (Feosol -) [address] [facility] Last Admin: 06/01/18 09:23 Dose: 325 mg Folic Acid (Folic Acid -) [address] [facility] Last Admin: 06/01/18 09:23 Dose: 1 mg Heparin Sodium (Porcine) (Heparin -) 5,[address] [facility] Last Admin: 06/01/18 13:11 Dose: 5,000 unit Azithromycin 500 mg/ Dextrose 250 mls @ 250 mls/hr IVPB DAILY [facility] Last Admin: 06/01/18 10:29 Dose: 250 mls/hr Ceftriaxone Sodium 1 gm/ (Dextrose) 50 mls @ 100 mls/hr IVPB DAILY [facility]; Protocol Last Admin: 06/01/18 09:24 Dose: 100 mls/hr Methylprednisolone Sodium Succinate (Solu-Medrol -) 40 mg IVPUSH Q6H-IV [facility] Last Admin: 06/01/18 09:23 Dose: 40 mg Montelukast Sodium (Singulair -) [address] [facility] Last Admin: 05/31/18 21:18 Dose: 10 mg Pantoprazole Sodium (Protonix -) [address] [facility] Last Admin: 06/01/18 09:23 Dose: 20 mg Polyethylene Glycol (Miralax (For Daily Use) -) 17 gm PO DAILY PRN PRN Reason: CONSTIPATION Roflumilast (Daliresp -) 500 mcg PO DAILY [facility] Last Admin: 06/01/18 09:24 Dose: 500 mcg - Objective Vital Signs: Vital Signs Temperature 98.3 F 06/01/18 06:00 Pulse Rate 92 H 06/01/18 13:00 Respiratory Rate 20 06/01/18 13:00 Blood Pressure 154/84 06/01/18 13:00 O2 Sat by Pulse Oximetry (%) 100 06/01/18 09:00 Constitutional: Yes: Well Nourished, Calm Eyes: Yes: WNL HENT: Yes: WNL Neck: Yes: WNL Cardiovascular: Yes: Regular Rate and Rhythm, S1, S2 Respiratory: Yes: Wheezes (scattered levon wheezes) Gastrointestinal: Yes: Normal Bowel Sounds, Soft Extremities: Yes: WNL Edema: No Labs: CBC, BMP 06/01/18 06:15 06/01/18 06:15 Problem List - Problems (1) COPD exacerbation Code(s): J44.1 - CHRONIC OBSTRUCTIVE PULMONARY DISEASE W (ACUTE) EXACERBATION (2) Shortness of breath Code(s): R06.02 - SHORTNESS OF BREATH (3) Bronchiectasis Code(s): J47.9 - BRONCHIECTASIS, UNCOMPLICATED (4) Chronic respiratory failure with hypoxia Code(s): J96.11 - CHRONIC RESPIRATORY FAILURE WITH HYPOXIA (5) Emphysema lung Code(s): J43.9 - EMPHYSEMA, UNSPECIFIED (6) Supplemental oxygen dependent Code(s): Z99.81 - DEPENDENCE ON SUPPLEMENTAL OXYGEN Assessment/Plan A/P Acute COPD Exacerbation Chronic Hypoxic Respiratory Failure HTN - medrol at current dose - inhaled bronchodilators standing and PRN - O2 to keep SpO2 90% - continue daliresp - pt with frequent exacerbations, may need to be on chronic low dose steroids - DVT prophylaxis - chest pt DR SMITH
[2018-06-01] MEDS: MONTELUKAST NA 10 MG TABLET PO SCH (21:41)
[2018-06-02] MEDS: ALBUTEROL SO4 2.5/IPRATROPIUM 0.5 INH SOL 3 ML VIAL.NEB. NEB SCH ×6 (01:19→21:05)
[2018-06-02] MEDS: methylPREDNISolone NA SUCC 40 MG/1 ML VIAL IVPUSH SCH ×3 (02:41→17:42)
[2018-06-02] MEDS: HEPARIN NA (PORCINE) 5,000 UNITS/ML 1ML VIAL SQ SCH ×3 (06:32→21:43)
[2018-06-02] MEDS: dilTIAZem HCL 30 MG TABLET (FP) PO SCH ×4 (06:32→23:46)
--- NOTE | 2018-06-02 07:27 | PN ---
Teaching Attending Note Name of Resident: Babs Florse ATTENDING PHYSICIAN STATEMENT I saw and evaluated the patient. I reviewed the resident's note and discussed the case with the resident. I agree with the resident's findings and plan as documented with exceptions below. SUBJECTIVE: Patient seen and examined. breathing with some improvement. Left sided chest pain positional improved with tylenol/toradol. OBJECTIVE: Vital Signs Period Temp Pulse Resp BP Sys/Echevarria Pulse Ox Last 24 Hr 98.0 F-98.7 F 80-95 2-20 144-158/57-84 100-100 Intake & Output 05/30/18 05/31/18 06/01/18 06/02/18 23:59 23:59 23:59 23:59 Intake Total 1380 2040 755 450 Balance 1380 2040 755 450 General: no acute distress, less use of acessory muscles of respiration, able to talk in full sentences Chest: improved air entry, few basilar rales, improved wheezing Abdomen: soft, NT Extremities: no edema Active Medications Acetaminophen (Tylenol -) 650 mg PO Q6H PRN PRN Reason: PAIN LEVEL 6-10 Last Admin: 06/01/18 23:36 Dose: 650 mg Albuterol Sulfate (Ventolin 0.083% Nebulizer Soln -) 1 amp NEB Q1H PRN PRN Reason: SHORT OF BREATH/WHEEZING Albuterol/Ipratropium (Duoneb -) 1 amp NEB Q4HPO [facility] Last Admin: 06/02/18 06:06 Dose: Not Given Diltiazem HCl (Cardizem -) 30 mg PO Q6HPO [facility] Last Admin: 06/02/18 06:32 Dose: 30 mg Ergocalciferol (Drisdol -) 50,000 unit PO Q7D@1000 [facility] Last Admin: 06/01/18 09:24 Dose: 50,000 unit Ferrous Sulfate (Feosol -) 325 mg PO DAILY [facility] Last Admin: 06/01/18 09:23 Dose: 325 mg Folic Acid (Folic Acid -) 1 mg PO DAILY [facility] Last Admin: 06/01/18 09:23 Dose: 1 mg Heparin Sodium (Porcine) (Heparin -) 5,000 unit SQ TID [facility] Last Admin: 06/02/18 06:32 Dose: 5,000 unit Azithromycin 500 mg/ Dextrose 250 mls @ 250 mls/hr IVPB DAILY [facility] Last Admin: 06/01/18 10:29 Dose: 250 mls/hr Ceftriaxone Sodium 1 gm/ (Dextrose) 50 mls @ 100 mls/hr IVPB DAILY [facility]; Protocol Last Admin: 06/01/18 09:24 Dose: 100 mls/hr Methylprednisolone Sodium Succinate (Solu-Medrol -) 40 mg IVPUSH Q6H-IV [facility] Last Admin: 06/02/18 02:41 Dose: 40 mg Montelukast Sodium (Singulair -) 10 mg PO HS [facility] Last Admin: 06/01/18 21:41 Dose: 10 mg Pantoprazole Sodium (Protonix -) 20 mg PO DAILY [facility] Last Admin: 06/01/18 09:23 Dose: 20 mg Polyethylene Glycol (Miralax (For Daily Use) -) 17 gm PO DAILY PRN PRN Reason: CONSTIPATION Roflumilast (Daliresp -) 500 mcg PO DAILY [facility] Last Admin: 06/01/18 09:24 Dose: 500 mcg Microbiology 05/27/18 17:42 Blood - Peripheral Venous Blood Culture - Final NO GROWTH AFTER 5 DAYS INCUBATION 05/27/18 17:42 Blood - Peripheral Venous Blood Culture - Final NO GROWTH AFTER 5 DAYS INCUBATION ASSESSMENT AND PLAN: 57yo F wtih PMH COPD on 2L NC at home, HTN and iron deficiency anemia admitted with shortness of breath and cugh. 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 Taper solumedrol 40 mg Q8H, standing and prn nebs. Pulmonary input noted. CT chest noted. ABG noted. Overall improved. May benefit from hs bipap however given bullous disease, at risk for pneumothorax. Will hold off as improving for now. Pulmonary input noted. Solumedrol 40 mg Q6h, standing and prn nebs. Ceftriaxone/azithromycin day 7, continue for now. Will d/c ceftriaxone after today and continue azithromycin. Frequent exacerbations, will need to address standing steroids on d.c. Chest pain improved with tylenol/toradol. Allergic to symbicort, advised to bring advair from home if able. Continue daliresp. Cardizem increased to 30 mg PO Q6h. Suspect HR/BP partly from breathing/nebs, overall improved. hb overall stable from prior. DVTPPX heparin DIspo planning when breathing improved. PT eval. Ambulatory pulse ox needs assessment. Chest PT, address pulmonary rehab based on clinical course. Plan discussed with patient in detail, all questions answered.
[2018-06-02] MEDS: ACETAMINOPHEN 325 MG TABLET (FP) PO PRN ×3 (08:59→22:26)
[2018-06-02] MEDS ORDERED: CEFTRIAXONE 1 GM in DEXTROSE 5%-WATER - 50 ML IVPB SCH (10:00)
[2018-06-02] MEDS ORDERED: PT OWN MED DRAWER 7, Y5N ONE (10:08)
[2018-06-02] MEDS ORDERED: DEXTROSE 5%-WATER - 50 ML IVPB ONE (10:09)
[2018-06-02] MEDS ORDERED: cefTRIAXone SODIUM 1 GM VIAL ONE (10:09)
[2018-06-02] MEDS: FERROUS SO4 325 MG TABLET (FP) PO SCH (10:18)
[2018-06-02] MEDS: PANTOPRAZOLE 20 MG TABLET (FP) PO SCH (10:18)
[2018-06-02] MEDS: FOLIC ACID 1 MG TABLET (FP) PO SCH (10:18)
[2018-06-02] MEDS: ROFLUMILAST 500 MCG TABLET PO SCH (10:19)
[2018-06-02] MEDS: AZITHROMYCIN 250 MG TABLET PO SCH (10:19)
--- NOTE | 2018-06-02 10:42 | PN ---
Progress Note (short form) - Note Progress Note: PULMONARY States breathing slightly better. Cough, wheezing improving. Vital Signs Period Temp Pulse Resp BP Sys/Echevarria Pulse Ox Last 24 Hr 97.0 F-98.7 F 84-95 2-20 144-160/57-88 100 Gen: tachypneic with speaking Heart: RRR Lung: poor air movement, scattered basilar rales Abd: soft, nontender Ext: no edema CBC, BMP 06/01/18 06:15 06/01/18 06:15 Active Medications Acetaminophen (Tylenol -) 650 mg PO Q6H PRN PRN Reason: PAIN LEVEL 6-10 Last Admin: 06/02/18 08:59 Dose: 650 mg Albuterol Sulfate (Ventolin 0.083% Nebulizer Soln -) 1 amp NEB Q1H PRN PRN Reason: SHORT OF BREATH/WHEEZING Albuterol/Ipratropium (Duoneb -) 1 amp NEB Q4HPO [facility] Last Admin: 06/02/18 09:00 Dose: 1 amp Azithromycin (Zithromax -) 250 mg PO DAILY [facility] Last Admin: 06/02/18 10:19 Dose: 250 mg Diltiazem HCl (Cardizem -) 30 mg PO Q6HPO [facility] Last Admin: 06/02/18 06:32 Dose: 30 mg Ergocalciferol (Drisdol -) 50,000 unit PO Q7D@1000 [facility] Last Admin: 06/01/18 09:24 Dose: 50,000 unit Ferrous Sulfate (Feosol -) 325 mg PO DAILY [facility] Last Admin: 06/02/18 10:18 Dose: 325 mg Folic Acid (Folic Acid -) 1 mg PO DAILY [facility] Last Admin: 06/02/18 10:18 Dose: 1 mg Heparin Sodium (Porcine) (Heparin -) 5,000 unit SQ TID [facility] Last Admin: 06/02/18 06:32 Dose: 5,000 unit Ceftriaxone Sodium 1 gm/ (Dextrose) 50 mls @ 100 mls/hr IVPB DAILY [facility]; Protocol Stop: 06/03/18 09:59 Last Admin: 06/02/18 10:19 Dose: 100 mls/hr Methylprednisolone Sodium Succinate (Solu-Medrol -) 40 mg IVPUSH Q8H-IV [facility] Montelukast Sodium (Singulair -) 10 mg PO HS [facility] Last Admin: 06/01/18 21:41 Dose: 10 mg Pantoprazole Sodium (Protonix -) 20 mg PO DAILY [facility] Last Admin: 06/02/18 10:18 Dose: 20 mg Polyethylene Glycol (Miralax (For Daily Use) -) 17 gm PO DAILY PRN PRN Reason: CONSTIPATION Roflumilast (Daliresp -) 500 mcg PO DAILY [facility] Last Admin: 06/02/18 10:19 Dose: 500 mcg A/P Acute COPD/Bronchiectasis Exacerbation Chronic Hypoxic Respiratory Failure HTN - agree with decreasing medrol to q8h - inhaled bronchodilators standing and PRN - O2 to keep SpO2 90% - continue daliresp - pt with frequent exacerbations, may need to be on chronic low dose steroids and azithromycin - DVT prophylaxis
--- NOTE | 2018-06-02 13:10 | PN ---
Physical Exam: SUBJECTIVE: Patient seen and examined at bedside this morning. Patient reports improvement of chest pain with Tylenol or Toradol. OBJECTIVE: Vital Signs Period Temp Pulse Resp BP Sys/Echevarria Pulse Ox Last 24 Hr 97.0 F-98.7 F 84-95 2-20 144-160/57-90 100 GENERAL: The patient is awake, alert, and fully oriented, in 3L NC HEAD: Normal with no signs of trauma. NECK: Trachea midline, full range of motion, supple. LUNGS: +scattered wheezes bilaterally, good air entry HEART: Regular rate and rhythm, S1, S2 without murmur, rub or gallop. ABDOMEN: Soft, nontender, nondistended, normoactive bowel sounds. EXTREMITIES: 2+ pulses, warm, well-perfused, no edema. NEUROLOGICAL: Cranial nerves II through XII grossly intact. Normal speech, gait not observed. PSYCH: Normal mood, normal affect. SKIN: Warm, dry, normal turgor, no rashes or lesions noted Active Medications Generic Name Dose Route Start Last Admin Trade Name Freq PRN Reason Stop Dose Admin Acetaminophen 650 mg 05/30/18 20:49 06/02/18 08:59 Tylenol - PO 650 mg Q6H PRN Administration PAIN LEVEL 6-10 Albuterol Sulfate 1 amp 05/29/18 13:11 Ventolin 0.083% Nebulizer Soln - NEB Q1H PRN SHORT OF BREATH/WHEEZING Albuterol/Ipratropium 1 amp 05/30/18 10:36 06/02/18 09:00 Duoneb - NEB 1 amp Q4HPO ZACHARY Administration Azithromycin 250 mg 06/02/18 10:00 06/02/18 10:19 Zithromax - PO 250 mg DAILY [facility]ACHARY Administration Diltiazem HCl 30 mg 05/31/18 12:00 06/02/18 11:52 Cardizem - PO 30 mg Q6HPO [facility]ACHARY Administration Ergocalciferol 50,000 unit 06/01/18 10:00 06/01/18 09:24 Drisdol - PO 50,000 unit Q7D@1000 ZACHARY Administration Ferrous Sulfate 325 mg 05/28/18 10:00 06/02/18 10:18 Feosol - PO 325 mg DAILY ZACHARY Administration Folic Acid 1 mg 05/28/18 10:00 06/02/18 10:18 Folic Acid - PO 1 mg DAILY [facility]ACH[facility] Administration Heparin Sodium (Porcine) 5,000 unit 05/28/18 06:00 06/02/18 06:32 Heparin - SQ 5,000 unit TID ZACHARY Administration Ceftriaxone Sodium 1 gm/ 50 mls @ 100 mls/hr 06/02/18 10:00 06/02/18 10:19 Dextrose IVPB 06/03/18 09:59 100 mls/hr DAILY ZACHARY Administration Protocol Methylprednisolone Sodium Succinate 40 mg 06/02/18 18:00 Solu-Medrol - IVPUSH Q8H-IV [facility]ACHARY Montelukast Sodium 10 mg 05/31/18 22:00 06/01/18 21:41 Singulair - PO 10 mg HS [facility]ACHARY Administration Pantoprazole Sodium 20 mg 05/30/18 10:00 06/02/18 10:18 Protonix - PO 20 mg DAILY [facility] Administration Polyethylene Glycol 17 gm 05/31/18 14:40 Miralax (For Daily Use) - PO DAILY PRN CONSTIPATION Roflumilast 500 mcg 05/30/18 13:00 06/02/18 10:19 Daliresp - PO 500 mcg DAILY [facility] Administration Imaging: Chest X-Ray (05/27/18): No significant interval change. Persistent bilateral increased interstitial markings. Differential diagnosis again includes chronic interstitial lung disease. Cannot rule out noncardiogenic mild pulmonary venous congestion or interstitial infiltrates. Chest X-ray (05/30/18): No acute pathology or significant change. Chest CT scan without contrast (05/31/18): Moderately severe COPD with extensive bilateral bronchiectasis. These findings are unchanged since a previous study of 02/07/18. There is no evidence of acute pathology within the chest. ASSESSMENT/PLAN: Patient is a 58 year old female who presented with shortness of breath and found to be in COPD exacerbation. Patient admitted for further monitoring and management. #Acute on Chronic COPD exacerbation : - may be 2/2 CAP vs inhaled chemicals (house paint) - Will continue Azithromycin 250mg daily - Ceftriaxone completed for 7 days. - Pulmonary Consult. Recs appreciated: - Decrease Solu-medrol 40mg to q8h - Duonebs QID - Albuterol PRN - Add Daliresp (500mcg daily) - Symbicort not given. Pt reports allergy to symbicort. - Continue O2 at 3L - pt uses 3L at home - Keep O2 satn >90% - Chest PT - Pt has frequent exacerbations, may need to be on chronic low dose steroids at home. - Chest CT w/o contrast done - pending official read - ABG done - may benefit from bipap if fails to improve. #Atypical Chest Pain: midsternal tenderness on palpation, positional - worse when lying on the right - Likely musculoskeletal due to COPD Exac - Troponins negative x1, unlikely cardiac in nature - Tylenol PRN for pain #Microcytic Anemia - likely due to RUBY - now at baseline Hgb - Fe Panel previously showed low Fe, low Fesat, low-normal ferritin - Continue Fe supplements #Hypertension - Increase Cardizem to 30mg q6h - Monitor BP closely #FEN - not on fluids - lytes wnl - Sodium controlled diet #Prophylaxis - Heparin SQ TID - GI Not indicated - Deconditioning: PT not needed, patient is ambulatory #Disposition - Admit to Med/Surg Visit type - Emergency Visit Emergency Visit: Yes ED Registration Date: 05/27/18 Care time: The patient presented to the Emergency Department on the above date and was hospitalized for further evaluation of their emergent condition. - New Patient This patient is new to me today: Yes Date on this admission: 06/02/18 - Critical Care Critical Care patient: No
[2018-06-02] MEDS: MONTELUKAST NA 10 MG TABLET PO SCH (21:43)
[2018-06-03] MEDS: methylPREDNISolone NA SUCC 40 MG/1 ML VIAL IVPUSH SCH ×3 (01:02→21:40)
[2018-06-03] MEDS: ALBUTEROL SO4 2.5/IPRATROPIUM 0.5 INH SOL 3 ML VIAL.NEB. NEB SCH ×6 (01:05→22:10)
[2018-06-03] MEDS: HEPARIN NA (PORCINE) 5,000 UNITS/ML 1ML VIAL SQ SCH (06:06)
[2018-06-03] MEDS: dilTIAZem HCL 30 MG TABLET (FP) PO SCH ×3 (06:06→18:28)
[2018-06-03] MEDS ORDERED: cefTRIAXone SODIUM 1 GM VIAL ONE (09:47)
[2018-06-03] MEDS ORDERED: PT OWN MED DRAWER 7, Y5N ONE (09:47)
[2018-06-03] MEDS ORDERED: DEXTROSE 5%-WATER - 50 ML IVPB ONE (09:47)
[2018-06-03] MEDS: FERROUS SO4 325 MG TABLET (FP) PO SCH (09:56)
[2018-06-03] MEDS: AZITHROMYCIN 250 MG TABLET PO SCH (09:56)
[2018-06-03] MEDS: FOLIC ACID 1 MG TABLET (FP) PO SCH (09:56)
[2018-06-03] MEDS: ROFLUMILAST 500 MCG TABLET PO SCH (09:56)
[2018-06-03] MEDS: PANTOPRAZOLE 20 MG TABLET (FP) PO SCH (09:56)
[2018-06-03] MEDS: ACETAMINOPHEN 325 MG TABLET (FP) PO PRN ×2 (09:57→18:28)
[2018-06-03] MEDS ORDERED: KETOROLAC TROMETHAMINE 10 MG TABLET PO ONE (12:21)
--- NOTE | 2018-06-03 13:09 | PN ---
Progress Note, Physician History of Present Illness: pulmonary alert,less dyspneic - Current Medication List Current Medications: Active Medications Acetaminophen (Tylenol -) 650 mg PO Q6H PRN PRN Reason: PAIN LEVEL 6-10 Last Admin: 06/03/18 09:57 Dose: 650 mg Albuterol Sulfate (Ventolin 0.083% Nebulizer Soln -) 1 amp NEB Q1H PRN PRN Reason: SHORT OF BREATH/WHEEZING Albuterol/Ipratropium (Duoneb -) 1 amp NEB Q4HPO [facility] Last Admin: 06/03/18 09:01 Dose: 1 amp Azithromycin (Zithromax -) 250 mg PO DAILY [facility] Last Admin: 06/03/18 09:56 Dose: 250 mg Diltiazem HCl (Cardizem -) 30 mg PO Q6HPO [facility] Last Admin: 06/03/18 12:50 Dose: 30 mg Ergocalciferol (Drisdol -) 50,000 unit PO Q7D@1000 [facility] Last Admin: 06/01/18 09:24 Dose: 50,000 unit Ferrous Sulfate (Feosol -) 325 mg PO DAILY [facility] Last Admin: 06/03/18 09:56 Dose: 325 mg Folic Acid (Folic Acid -) 1 mg PO DAILY [facility] Last Admin: 06/03/18 09:56 Dose: 1 mg Heparin Sodium (Porcine) (Heparin -) 5,000 unit SQ TID [facility] Last Admin: 06/03/18 06:06 Dose: Not Given Methylprednisolone Sodium Succinate (Solu-Medrol -) 40 mg IVPUSH Q8H-IV [facility] Last Admin: 06/03/18 09:56 Dose: 40 mg Montelukast Sodium (Singulair -) 10 mg PO HS [facility] Last Admin: 06/02/18 21:43 Dose: 10 mg Pantoprazole Sodium (Protonix -) 20 mg PO DAILY [facility] Last Admin: 06/03/18 09:56 Dose: 20 mg Polyethylene Glycol (Miralax (For Daily Use) -) 17 gm PO DAILY PRN PRN Reason: CONSTIPATION Roflumilast (Daliresp -) 500 mcg PO DAILY [facility] Last Admin: 06/03/18 09:56 Dose: 500 mcg - Objective Vital Signs: Vital Signs Temperature 97.5 F L 06/03/18 03:00 Pulse Rate 85 06/03/18 09:00 Respiratory Rate 20 09/14/18 09:00 Blood Pressure 154/71 06/03/18 09:00 O2 Sat by Pulse Oximetry (%) 98 06/02/18 21:00 Constitutional: Yes: Well Nourished, Calm Eyes: Yes: WNL HENT: Yes: WNL Neck: Yes: WNL Cardiovascular: Yes: Regular Rate and Rhythm, S1, S2 Respiratory: Yes: Wheezes (few wheezes) Gastrointestinal: Yes: Normal Bowel Sounds, Soft Extremities: Yes: WNL Edema: No Labs: CBC, BMP Problem List - Problems (1) COPD exacerbation Code(s): J44.1 - CHRONIC OBSTRUCTIVE PULMONARY DISEASE W (ACUTE) EXACERBATION (2) Shortness of breath Code(s): R06.02 - SHORTNESS OF BREATH (3) Bronchiectasis Code(s): J47.9 - BRONCHIECTASIS, UNCOMPLICATED (4) Chronic respiratory failure with hypoxia Code(s): J96.11 - CHRONIC RESPIRATORY FAILURE WITH HYPOXIA (5) Emphysema lung Code(s): J43.9 - EMPHYSEMA, UNSPECIFIED (6) Supplemental oxygen dependent Code(s): Z99.81 - DEPENDENCE ON SUPPLEMENTAL OXYGEN Assessment/Plan A/P Acute COPD Exacerbation Chronic Hypoxic Respiratory Failure HTN - medrol taper - inhaled bronchodilators standing and PRN - O2 to keep SpO2 90% - daliresp - pt with frequent exacerbations, may need to be on chronic low dose steroids - DVT prophylaxis - chest pt DR SMITH
[2018-06-03] MEDS ORDERED: methylPREDNISolone NA SUCC 40 MG/1 ML VIAL IVPUSH SCH (13:15)
--- NOTE | 2018-06-03 14:24 | PN ---
Teaching Attending Note Name of Resident: Babs Flores ATTENDING PHYSICIAN STATEMENT I saw and evaluated the patient. I reviewed the resident's note and discussed the case with the resident. I agree with the resident's findings and plan as documented with exceptions below. SUBJECTIVE: Patient seen and examined. breathing continues to improved, some chest pain with coughing, overall better, motivated to work with PT today. OBJECTIVE: Vital Signs Period Temp Pulse Resp BP Sys/Echevarria Pulse Ox Last 24 Hr 97.5 F-98.3 F 79-89 20-22 140-154/71-82 98 Intake & Output 05/31/18 06/01/18 06/02/18 06/03/18 23:59 23:59 23:59 23:59 Intake Total 2040 755 1560 800 Balance 0 755 1560 800 Weight 146 lb General: lying in bed in no acute distress, less tachypneic, minimal use of acessory muscles of respiration, markedly improved Chest: improved air entry, occasional scattered wheezing, no rales Abdomen:Soft, NT, ND Extremities: no edema Home Medications Medication Instructions Recorded Cholecalciferol (Vitamin D3) 50,000 unit PO WEEKLY 12/05/17 [Vitamin D -] Albuterol Sulfate Inhaler - 1 - 2 inh PO Q4H PRN #1 inhaler 01/20/18 [Ventolin HFA Inhaler -] Ferrous Sulfate [Feosol] 325 mg PO DAILY 02/04/18 Fluticasone/Salmeterol [Advair 1 puff IN QID PRN 02/04/18 250-50 Diskus] Folic Acid 1 mg PO DAILY 02/04/18 Umeclidinium [place] [Incruse 62.5 mcg IH DAILY 02/04/18 Ellipta] Diltiazem [Cardizem -] 30 mg PO TID 30 Days #90 tablet 02/12/18 Montelukast Na [Singulair -] 10 mg PO HS #30 tablet 02/12/18 Polyethylene Glycol 3350 [Miralax 17 gm PO DAILY PRN 5 Days #5 bottle 02/12/18 119 gm Btl -] Albuterol Sulfate Inhaler - 1 - 2 inh PO Q4H #1 inhaler 04/25/18 [Ventolin Hfa Inhaler -] Ipratropium/Albuterol Sulfate 4 gm IH BID #20 aer.w.adap 04/25/18 [Combivent Respimat Inhal [place]] Active Medications Acetaminophen (Tylenol -) 650 mg PO Q6H PRN PRN Reason: PAIN LEVEL 6-10 Last Admin: 06/03/18 09:57 Dose: 650 mg Albuterol Sulfate (Ventolin 0.083% Nebulizer Soln -) 1 amp NEB Q1H PRN PRN Reason: SHORT OF BREATH/WHEEZING Albuterol/Ipratropium (Duoneb -) 1 amp NEB Q4HPO [facility] Last Admin: 06/03/18 14:11 Dose: 1 amp Azithromycin (Zithromax -) 250 mg PO DAILY [facility] Last Admin: 06/03/18 09:56 Dose: 250 mg Diltiazem HCl (Cardizem -) 30 mg PO Q6HPO [facility] Last Admin: 06/03/18 12:50 Dose: 30 mg Enoxaparin Sodium (Lovenox -) 40 mg SQ DAILY [facility] Ergocalciferol (Drisdol -) 50,000 unit PO Q7D@1000 [facility] Last Admin: 06/01/18 09:24 Dose: 50,000 unit Ferrous Sulfate (Feosol -) 325 mg PO DAILY [facility] Last Admin: 06/03/18 09:56 Dose: 325 mg Folic Acid (Folic Acid -) 1 mg PO DAILY [facility] Last Admin: 06/03/18 09:56 Dose: 1 mg Methylprednisolone Sodium Succinate (Solu-Medrol -) 40 mg IVPUSH BID [facility] Montelukast Sodium (Singulair -) 10 mg PO HS [facility] Last Admin: 06/02/18 21:43 Dose: 10 mg Pantoprazole Sodium (Protonix -) 20 mg PO DAILY [facility] Last Admin: 06/03/18 09:56 Dose: 20 mg Polyethylene Glycol (Miralax (For Daily Use) -) 17 gm PO DAILY PRN PRN Reason: CONSTIPATION Roflumilast (Daliresp -) 500 mcg PO DAILY [facility] Last Admin: 06/03/18 09:56 Dose: 500 mcg ASSESSMENT AND PLAN: 57yo F wtih PMH COPD on 2L NC at home, HTN and iron deficiency anemia admitted with shortness of breath and cugh. 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 Continue solumedrol 40 mg Q8H, standing and prn nebs. Pulmonary input noted. CT chest noted. ABG noted. Overall improved. May benefit from hs bipap however given bullous disease, at risk for pneumothorax. Will hold off as improving for now. S/p 7 days of ceftriaxone. Azithromycin day 8, continue for now. Frequent exacerbations, will need to address standing steroids on d.c. Chest pain improved with tylenol. Allergic to symbicort, advised to bring advair from home if able. Continue daliresp. Cardizem increased to 30 mg PO Q6h. Suspect HR/BP partly from breathing/nebs, overall improved. hb overall stable from prior. DVTPPX heparin DIspo planning when breathing improved. Patient encouraged to work with PT, agreable. PT eval. Ambulatory pulse ox needs assessment. Chest PT, address pulmonary rehab based on clinical course. Plan discussed with patient in detail, all questions answered.
--- NOTE | 2018-06-03 15:13 | PN ---
Physical Exam: SUBJECTIVE: Patient seen and examined at bedside this morning. No acute events overnight. Patient still reports mild chest pain. OBJECTIVE: Vital Signs Period Temp Pulse Resp BP Sys/Echevarria Pulse Ox Last 24 Hr 97.5 F-98.3 F 80-89 20-22 140-154/71-82 98 GENERAL: The patient is awake, alert, and fully oriented, in 3L NC HEAD: Normal with no signs of trauma. NECK: Trachea midline, full range of motion, supple. LUNGS: +scattered wheezes bilaterally, good air entry HEART: Regular rate and rhythm, S1, S2 without murmur, rub or gallop. ABDOMEN: Soft, nontender, nondistended, normoactive bowel sounds. EXTREMITIES: 2+ pulses, warm, well-perfused, no edema. NEUROLOGICAL: Cranial nerves II through XII grossly intact. Normal speech, gait not observed. PSYCH: Normal mood, normal affect. SKIN: Warm, dry, normal turgor, no rashes or lesions noted Active Medications Generic Name Dose Route Start Last Admin Trade Name Freq PRN Reason Stop Dose Admin Acetaminophen 650 mg 05/30/18 20:49 06/03/18 09:57 Tylenol - PO 650 mg Q6H PRN Administration PAIN LEVEL 6-10 Albuterol Sulfate 1 amp 05/29/18 13:11 Ventolin 0.083% Nebulizer Soln - NEB Q1H PRN SHORT OF BREATH/WHEEZING Albuterol/Ipratropium 1 amp 05/30/18 10:36 06/03/18 14:11 Duoneb - NEB 1 amp Q4HPO [facility] Administration Azithromycin 250 mg 06/02/18 10:00 06/03/18 09:56 Zithromax - PO 250 mg DAILY [facility] Administration Diltiazem HCl 30 mg 05/31/18 12:00 06/03/18 12:50 Cardizem - PO 30 mg Q6HPO [facility] Administration Enoxaparin Sodium 40 mg 06/04/18 10:00 Lovenox - SQ DAILY [facility] Ergocalciferol 50,000 unit 06/01/18 10:00 06/01/18 09:24 Drisdol - PO 50,000 unit Q7D@1000 [facility] Administration Ferrous Sulfate 325 mg 05/28/18 10:00 06/03/18 09:56 Feosol - PO 325 mg DAILY [facility] Administration Folic Acid 1 mg 05/28/18 10:00 06/03/18 09:56 Folic Acid - PO 1 mg DAILY [facility] Administration Methylprednisolone Sodium Succinate 40 mg 06/03/18 22:00 Solu-Medrol - IVPUSH BID [facility] Montelukast Sodium 10 mg 05/31/18 22:00 06/02/18 21:43 Singulair - PO 10 mg HS ZACHARY Administration Pantoprazole Sodium 20 mg 05/30/18 10:00 06/03/18 09:56 Protonix - PO 20 mg DAILY [facility] Administration Polyethylene Glycol 17 gm 05/31/18 14:40 Miralax (For Daily Use) - PO DAILY PRN CONSTIPATION Roflumilast 500 mcg 05/30/18 13:00 06/03/18 09:56 Daliresp - PO 500 mcg DAILY [facility] Administration ASSESSMENT/PLAN: Imaging: Chest X-Ray (05/27/18): No significant interval change. Persistent bilateral increased interstitial markings. Differential diagnosis again includes chronic interstitial lung disease. Cannot rule out noncardiogenic mild pulmonary venous congestion or interstitial infiltrates. Chest X-ray (05/30/18): No acute pathology or significant change. Chest CT scan without contrast (05/31/18): Moderately severe COPD with extensive bilateral bronchiectasis. These findings are unchanged since a previous study of 02/07/18. There is no evidence of acute pathology within the chest. ASSESSMENT/PLAN: Patient is a 58 year old female who presented with shortness of breath and found to be in COPD exacerbation. Patient admitted for further monitoring and management. #Acute on Chronic COPD exacerbation : improving - may be 2/2 CAP vs inhaled chemicals (house paint) - Continue Azithromycin 250mg daily - Pulmonary Consult. Recs appreciated: - Decrease Solu-medrol 40mg to q12h - Duonebs QID - Albuterol PRN - Add Daliresp (500mcg daily) - Symbicort not given. Pt reports allergy to symbicort. - Continue O2 at 3L - pt uses 3L at home - Keep O2 satn >90% - Chest PT - Pt has frequent exacerbations, may need to be on chronic low dose steroids at home. #Atypical Chest Pain: midsternal tenderness on palpation, positional - worse when lying on the right - Likely musculoskeletal due to COPD Exac - Troponins negative x1, unlikely cardiac in nature - Tylenol PRN for pain. - Lidocaine patch for pain. #Microcytic Anemia - likely due to RUBY - now at baseline Hgb - Fe Panel previously showed low Fe, low Fesat, low-normal ferritin - Continue Fe supplements #Hypertension - Cardizem to 30mg q6h - Monitor BP closely #FEN - not on fluids - lytes wnl - Sodium controlled diet #Prophylaxis - Lovenox 40mg sq daily #Disposition - Med/Surg - PT evaluation Visit type - Emergency Visit Emergency Visit: Yes ED Registration Date: 05/27/18 Care time: The patient presented to the Emergency Department on the above date and was hospitalized for further evaluation of their emergent condition. - New Patient This patient is new to me today: Yes Date on this admission: 06/03/18 - Critical Care Critical Care patient: No
[2018-06-03] MEDS ORDERED: LIDOCAINE 5% TOPICAL PATCH TP ONE (19:05)
[2018-06-03] MEDS: MONTELUKAST NA 10 MG TABLET PO SCH (21:40)
[2018-06-04] MEDS: dilTIAZem HCL 30 MG TABLET (FP) PO SCH ×5 (00:56→23:29)
[2018-06-04] MEDS: ALBUTEROL SO4 2.5/IPRATROPIUM 0.5 INH SOL 3 ML VIAL.NEB. NEB SCH ×6 (02:10→22:35)
[2018-06-04] MEDS ORDERED: LIDOCAINE PATCH REMOVAL MC ONE (07:00)
--- NOTE | 2018-06-04 08:52 | PN ---
Teaching Attending Note Name of Resident: Basb Flores ATTENDING PHYSICIAN STATEMENT I saw and evaluated the patient. I reviewed the resident's note and discussed the case with the resident. I agree with the resident's findings and plan as documented with exceptions below. SUBJECTIVE: Patient seen and examined. breathing continues to improve. chest pain much better with patch, no new complaints. OBJECTIVE: Vital Signs Period Temp Pulse Resp BP Sys/Echevarria Pulse Ox Last 24 Hr 98.0 F-98.4 F 78-88 18-20 145-158/71-95 97-99 Intake & Output 06/01/18 06/02/18 06/03/18 06/04/18 23:59 23:59 23:59 23:59 Intake Total 755 1560 2100 Balance 755 1560 2100 Weight 146 lb General: lying in bed in no acute distress Chest: markedly improved air entry, occasional scattered wheezing Abdomen:soft, NT, ND Extremities: no edema Active Medications Acetaminophen (Tylenol -) 650 mg PO Q6H PRN PRN Reason: PAIN LEVEL 6-10 Last Admin: 06/03/18 18:28 Dose: 650 mg Albuterol Sulfate (Ventolin 0.083% Nebulizer Soln -) 1 amp NEB Q1H PRN PRN Reason: SHORT OF BREATH/WHEEZING Albuterol/Ipratropium (Duoneb -) 1 amp NEB Q4HPO [facility] Last Admin: 06/04/18 06:35 Dose: 1 amp Azithromycin (Zithromax -) 250 mg PO DAILY [facility] Last Admin: 06/03/18 09:56 Dose: 250 mg Diltiazem HCl (Cardizem -) 30 mg PO Q6HPO [facility] Last Admin: 06/04/18 06:06 Dose: 30 mg Enoxaparin Sodium (Lovenox -) 40 mg SQ DAILY [facility] Ergocalciferol (Drisdol -) 50,000 unit PO Q7D@1000 [facility] Last Admin: 06/01/18 09:24 Dose: 50,000 unit Ferrous Sulfate (Feosol -) 325 mg PO DAILY [facility] Last Admin: 06/03/18 09:56 Dose: 325 mg Folic Acid (Folic Acid -) 1 mg PO DAILY [facility] Last Admin: 06/03/18 09:56 Dose: 1 mg Methylprednisolone Sodium Succinate (Solu-Medrol -) 40 mg IVPUSH BID [facility] Last Admin: 09/14/18 21:40 Dose: 40 mg Montelukast Sodium (Singulair -) 10 mg PO HS [facility] Last Admin: 06/03/18 21:40 Dose: 10 mg Pantoprazole Sodium (Protonix -) 20 mg PO DAILY [facility] Last Admin: 06/03/18 09:56 Dose: 20 mg Polyethylene Glycol (Miralax (For Daily Use) -) 17 gm PO DAILY PRN PRN Reason: CONSTIPATION Roflumilast (Daliresp -) 500 mcg PO DAILY [facility] Last Admin: 06/03/18 09:56 Dose: 500 mcg Laboratory Results - last 24 hr 06/03/18 09:45 Stool Occult Blood Negative ASSESSMENT AND PLAN: 57yo F wtih PMH COPD on 2L NC at home, HTN and iron deficiency anemia admitted with shortness of breath and cugh. 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 Continue solumedrol 40 mg Q12H, standing and prn nebs. Pulmonary input noted. CT chest noted. ABG noted. Overall improved. May benefit from hs bipap however given bullous disease, at risk for pneumothorax. Will hold off as improving for now. S/p 7 days of ceftriaxone. Azithromycin day 9, continue for now. Frequent exacerbations, will need to address standing steroids on d.c. Chest pain improved with tylenol. Allergic to symbicort, advised to bring advair from home if able. Continue daliresp. Cardizem increased to 30 mg PO Q6h. Suspect HR/BP partly from breathing/nebs, overall improved. hb overall stable from prior. FOBT neg. DVTPPX heparin PT eval noted. Chest PT Dispo planning in 48 hours if continues to improve, possible home with VNS/PT on Wednesday if no new concerns. Plan discussed with patient in detail, all questions answered.
--- NOTE | 2018-06-04 09:10 | PN ---
Physical Exam: SUBJECTIVE: Patient seen and examined at bedside this morning. No acute events overnight. She received the lidocaine patch for her chest pain and reported relief of pain. OBJECTIVE: Vital Signs Period Temp Pulse Resp BP Sys/Echevarria Pulse Ox Last 24 Hr 98.0 F-98.4 F 78-88 18-20 145-158/74-95 99 GENERAL: The patient is awake, alert, and fully oriented, in 3L NC HEAD: Normal with no signs of trauma. NECK: Trachea midline, full range of motion, supple. LUNGS: +scattered wheezes bilaterally, good air entry HEART: Regular rate and rhythm, S1, S2 without murmur, rub or gallop. ABDOMEN: Soft, nontender, nondistended, normoactive bowel sounds. EXTREMITIES: 2+ pulses, warm, well-perfused, no edema. NEUROLOGICAL: Cranial nerves II through XII grossly intact. Normal speech, gait not observed. PSYCH: Normal mood, normal affect. SKIN: Warm, dry, normal turgor, no rashes or lesions noted Laboratory Results - last 24 hr 06/03/18 09:45 Stool Occult Blood Negative Active Medications Generic Name Dose Route Start Last Admin Trade Name Freq PRN Reason Stop Dose Admin Acetaminophen 650 mg 05/30/18 20:49 06/03/18 18:28 Tylenol - PO 650 mg Q6H PRN Administration PAIN LEVEL 6-10 Albuterol Sulfate 1 amp 05/29/18 13:11 Ventolin 0.083% Nebulizer Soln - NEB Q1H PRN SHORT OF BREATH/WHEEZING Albuterol/Ipratropium 1 amp 05/30/18 10:36 06/04/18 06:35 Duoneb - NEB 1 amp Q4HPO ZACHARY Administration Azithromycin 250 mg 06/02/18 10:00 06/03/18 09:56 Zithromax - PO 250 mg DAILY ZACHARY Administration Diltiazem HCl 30 mg 05/31/18 12:00 06/04/18 06:06 Cardizem - PO 30 mg Q6HPO ZACHARY Administration Enoxaparin Sodium 40 mg 06/04/18 10:00 Lovenox - SQ DAILY ZACHARY Ergocalciferol 50,000 unit 06/01/18 10:00 06/01/18 09:24 Drisdol - PO 50,000 unit Q7D@1000 ZACHARY Administration Ferrous Sulfate 325 mg 05/28/18 10:00 06/03/18 09:56 Feosol - PO 325 mg DAILY ZACHARY Administration Folic Acid 1 mg 05/28/18 10:00 06/03/18 09:56 Folic Acid - PO 1 mg DAILY ZACHARY Administration Methylprednisolone Sodium Succinate 40 mg 06/03/18 22:00 06/03/18 21:40 Solu-Medrol - IVPUSH 40 mg BID ZACHARY Administration Montelukast Sodium 10 mg 05/31/18 22:00 06/03/18 21:40 Singulair - PO 10 mg HS ZACHARY Administration Pantoprazole Sodium 20 mg 05/30/18 10:00 06/03/18 09:56 Protonix - PO 20 mg DAILY ZACHARY Administration Polyethylene Glycol 17 gm 05/31/18 14:40 Miralax (For Daily Use) - PO DAILY PRN CONSTIPATION Roflumilast 500 mcg 05/30/18 13:00 06/03/18 09:56 Daliresp - PO 500 mcg DAILY ZACHARY Administration Imaging: Chest X-Ray (05/27/18): No significant interval change. Persistent bilateral increased interstitial markings. Differential diagnosis again includes chronic interstitial lung disease. Cannot rule out noncardiogenic mild pulmonary venous congestion or interstitial infiltrates. Chest X-ray (05/30/18): No acute pathology or significant change. Chest CT scan without contrast (05/31/18): Moderately severe COPD with extensive bilateral bronchiectasis. These findings are unchanged since a previous study of 02/07/18. There is no evidence of acute pathology within the chest. ASSESSMENT/PLAN: Patient is a 58 year old female who presented with shortness of breath and found to be in COPD exacerbation. Patient admitted for further monitoring and management. #Acute on Chronic COPD exacerbation : improving - may be 2/2 CAP vs inhaled chemicals (house paint) - Continue Azithromycin 250mg daily - Pulmonary Consult. Recs appreciated: - Continue taper Solu-medrol 40mg to q12h - Duonebs QID - Albuterol PRN - Add Daliresp (500mcg daily) - Symbicort not given. Pt reports allergy to symbicort. - Continue O2 at 3L - pt uses 3L at home - Keep O2 satn >90% - Chest PT BID - Pt has frequent exacerbations, may need to be on chronic low dose steroids at home. #Atypical Chest Pain: midsternal tenderness on palpation, positional - Likely musculoskeletal due to COPD Exac - Troponins negative x1, unlikely cardiac in nature - Tylenol PRN for pain. - Lidocaine patch given which provided significant relief #Microcytic Anemia - likely due to RUBY - now at baseline Hgb - Fe Panel previously showed low Fe, low Fesat, low-normal ferritin - Continue Fe supplements #Hypertension - Cardizem to 30mg q6h - Monitor BP closely #FEN - not on fluids - lytes wnl - Sodium controlled diet #Prophylaxis - Lovenox 40mg sq daily #Disposition - Med/Surg - PT evaluation:able to walk 80 feet. Visit type - Emergency Visit Emergency Visit: Yes ED Registration Date: 05/27/18 Care time: The patient presented to the Emergency Department on the above date and was hospitalized for further evaluation of their emergent condition. - New Patient This patient is new to me today: Yes Date on this admission: 06/06/18 - Critical Care Critical Care patient: No
[2018-06-04] MEDS ORDERED: PT OWN MED DRAWER 7, Y5N ONE (09:52)
[2018-06-04] MEDS: ROFLUMILAST 500 MCG TABLET PO SCH (10:03)
[2018-06-04] MEDS: FOLIC ACID 1 MG TABLET (FP) PO SCH (10:03)
[2018-06-04] MEDS: PANTOPRAZOLE 20 MG TABLET (FP) PO SCH (10:03)
[2018-06-04] MEDS: FERROUS SO4 325 MG TABLET (FP) PO SCH (10:04)
[2018-06-04] MEDS: AZITHROMYCIN 250 MG TABLET PO SCH (10:04)
[2018-06-04] MEDS: methylPREDNISolone NA SUCC 40 MG/1 ML VIAL IVPUSH SCH ×2 (10:04→21:36)
[2018-06-04] MEDS: ENOXAPARIN NA (PORCINE) 40 MG/0.4 ML DISP.SYRIN SQ SCH (10:04)
--- NOTE | 2018-06-04 11:55 | PN ---
Progress Note (short form) - Note Progress Note: Breathing feels a little better. Intake & Output 06/01/18 06/02/18 06/03/18 06/04/18 23:59 23:59 23:59 23:59 Intake Total 755 1560 2100 Balance 755 1560 2100 Weight 146 lb Last Vital Signs Temp Pulse Resp BP Pulse Ox 98.1 F 88 18 145/74 99 06/04/18 04:00 06/04/18 04:00 06/04/18 04:00 06/04/18 04:00 06/03/18 21:00 Active Medications Acetaminophen (Tylenol -) 650 mg PO Q6H PRN PRN Reason: PAIN LEVEL 6-10 Last Admin: 06/03/18 18:28 Dose: 650 mg Albuterol Sulfate (Ventolin 0.083% Nebulizer Soln -) 1 amp NEB Q1H PRN PRN Reason: SHORT OF BREATH/WHEEZING Albuterol/Ipratropium (Duoneb -) 1 amp NEB Q4HPO [facility] Last Admin: 06/04/18 09:35 Dose: 1 amp Azithromycin (Zithromax -) 250 mg PO DAILY [facility] Last Admin: 06/04/18 10:04 Dose: 250 mg Diltiazem HCl (Cardizem -) 30 mg PO Q6HPO [facility] Last Admin: 06/04/18 06:06 Dose: 30 mg Enoxaparin Sodium (Lovenox -) 40 mg SQ DAILY [facility] Last Admin: 06/04/18 10:04 Dose: 40 mg Ergocalciferol (Drisdol -) 50,000 unit PO Q7D@1000 [facility] Last Admin: 06/01/18 09:24 Dose: 50,000 unit Ferrous Sulfate (Feosol -) 325 mg PO DAILY [facility] Last Admin: 06/04/18 10:04 Dose: 325 mg Folic Acid (Folic Acid -) 1 mg PO DAILY [facility] Last Admin: 06/04/18 10:03 Dose: 1 mg Methylprednisolone Sodium Succinate (Solu-Medrol -) 40 mg IVPUSH BID [facility] Last Admin: 06/04/18 10:04 Dose: 40 mg Montelukast Sodium (Singulair -) 10 mg PO HS [facility] Last Admin: 06/03/18 21:40 Dose: 10 mg Pantoprazole Sodium (Protonix -) 20 mg PO DAILY [facility] Last Admin: 06/04/18 10:03 Dose: 20 mg Polyethylene Glycol (Miralax (For Daily Use) -) 17 gm PO DAILY PRN PRN Reason: CONSTIPATION Roflumilast (Daliresp -) 500 mcg PO DAILY [facility] Last Admin: 06/04/18 10:03 Dose: 500 mcg Constitutional: Yes: NAD Eyes: Yes: WNL HENT: Yes: WNL Neck: Yes: WNL Cardiovascular: Yes: Regular Rate and Rhythm, S1, S2 Respiratory: Yes: Few scattered wheezes Gastrointestinal: Yes: Normal Bowel Sounds, Soft Extremities: Yes: WNL Edema: No Labs: Laboratory Results - last 24 hr 06/03/18 09:45 Stool Occult Blood Negative Problem List - Problems (1) COPD exacerbation Code(s): J44.1 - CHRONIC OBSTRUCTIVE PULMONARY DISEASE W (ACUTE) EXACERBATION (2) Shortness of breath Code(s): R06.02 - SHORTNESS OF BREATH (3) Bronchiectasis Code(s): J47.9 - BRONCHIECTASIS, UNCOMPLICATED (4) Chronic respiratory failure with hypoxia Code(s): J96.11 - CHRONIC RESPIRATORY FAILURE WITH HYPOXIA (5) Emphysema lung Code(s): J43.9 - EMPHYSEMA, UNSPECIFIED (6) Supplemental oxygen dependent Code(s): Z99.81 - DEPENDENCE ON SUPPLEMENTAL OXYGEN Assessment/Plan Acute COPD Exacerbation Chronic Hypoxic Respiratory Failure HTN - Can likely change to Prednisone - inhaled bronchodilators standing and PRN - O2 to keep SpO2 90% - daliresp - DVT prophylaxis - Chest pt Dr Carty
[2018-06-04] MEDS: MONTELUKAST NA 10 MG TABLET PO SCH (21:35)
[2018-06-05] MEDS: ALBUTEROL SO4 2.5/IPRATROPIUM 0.5 INH SOL 3 ML VIAL.NEB. NEB SCH ×3 (02:30→10:05)
[2018-06-05] MEDS: dilTIAZem HCL 30 MG TABLET (FP) PO SCH ×3 (05:58→18:43)
[2018-06-05] MEDS ORDERED: predniSONE 20 MG TABLET (UD) PO SCH (10:00)
--- NOTE | 2018-06-05 10:05 | PN ---
Physical Exam: SUBJECTIVE: Patient seen and examined, breathing continues to improve. Chest wall pain better, no new complaints. OBJECTIVE: Vital Signs Period Temp Pulse Resp BP Sys/Echevarria Pulse Ox Last 24 Hr 98.2 F-98.4 F 70-88 18-24 113-161/64-82 96 GENERAL: lying in bed in no acute distress Neck: soft supple Chest: improved air entry, minimal wheezing scattered, markedly improved exam Abdomen:Soft, NT, nD Extremities: no edema Home Medications Medication Instructions Recorded Cholecalciferol (Vitamin D3) 50,000 unit PO WEEKLY 12/05/17 [Vitamin D -] Albuterol Sulfate Inhaler - 1 - 2 inh PO Q4H PRN #1 inhaler 01/20/18 [Ventolin HFA Inhaler -] Ferrous Sulfate [Feosol] 325 mg PO DAILY 02/04/18 Fluticasone/Salmeterol [Advair 1 puff IN QID PRN 02/04/18 250-50 Diskus] Folic Acid 1 mg PO DAILY 02/04/18 Umeclidinium [place] [Incruse 62.5 mcg IH DAILY 02/04/18 Ellipta] Diltiazem [Cardizem -] 30 mg PO TID 30 Days #90 tablet 02/12/18 Montelukast Na [Singulair -] 10 mg PO HS #30 tablet 02/12/18 Polyethylene Glycol 3350 [Miralax 17 gm PO DAILY PRN 5 Days #5 bottle 02/12/18 119 gm Btl -] Albuterol Sulfate Inhaler - 1 - 2 inh PO Q4H #1 inhaler 04/25/18 [Ventolin Hfa Inhaler -] Ipratropium/Albuterol Sulfate 4 gm IH BID #20 aer.w.[email or web address] 04/25/18 [Combivent Respimat Inhal [place]] Active Medications Generic Name Dose Route Start Last Admin Trade Name Freq PRN Reason Stop Dose Admin Acetaminophen 650 mg 05/30/18 20:49 06/03/18 18:28 Tylenol - PO 650 mg Q6H PRN Administration PAIN LEVEL 6-10 Albuterol Sulfate 1 amp 05/29/18 13:11 Ventolin 0.083% Nebulizer Soln - NEB Q1H PRN SHORT OF BREATH/WHEEZING Albuterol/Ipratropium 1 amp 05/30/18 10:36 06/05/18 06:35 Duoneb - NEB 1 amp Q4HPO ZACHARY Administration Azithromycin 250 mg 06/02/18 10:00 06/04/18 10:04 Zithromax - PO 250 mg DAILY ZACHARY Administration Diltiazem HCl 30 mg 05/31/18 12:00 06/05/18 05:58 Cardizem - PO 30 mg Q6HPO ZACHARY Administration Enoxaparin Sodium 40 mg 06/04/18 10:00 06/04/18 10:04 Lovenox - SQ 40 mg DAILY ZACHARY Administration Ergocalciferol 50,000 unit 06/01/18 10:00 06/01/18 09:24 Drisdol - PO 50,000 unit Q7D@1000 ZACHARY Administration Ferrous Sulfate 325 mg 05/28/18 10:00 06/04/18 10:04 Feosol - PO 325 mg DAILY ZACHARY Administration Folic Acid 1 mg 05/28/18 10:00 06/04/18 10:03 Folic Acid - PO 1 mg DAILY ZACHARY Administration Montelukast Sodium 10 mg 05/31/18 22:00 06/04/18 21:35 Singulair - PO 10 mg HS ZACHARY Administration Pantoprazole Sodium 20 mg 05/30/18 10:00 06/04/18 10:03 Protonix - PO 20 mg DAILY ZACHARY Administration Polyethylene Glycol 17 gm 05/31/18 14:40 Miralax (For Daily Use) - PO DAILY PRN CONSTIPATION Prednisone 60 mg 06/05/18 10:00 Deltasone - PO DAILY ZACHARY Roflumilast 500 mcg 05/30/18 13:00 06/04/18 10:03 Daliresp - PO 500 mcg DAILY ZACHARY Administration ASSESSMENT/PLAN: 57yo F wtih PMH COPD on 2L NC at home, HTN and iron deficiency anemia admitted with shortness of breath and cugh. 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 Change to prednisone 60 mg daily standing and prn nebs. Pulmonary input noted. CT chest noted. ABG noted. Overall improved. May benefit from hs bipap however given bullous disease, at risk for pneumothorax. Will hold off as improving for now. S/p 7 days of ceftriaxone. Azithromycin day 10, continue for now. Frequent exacerbations, will need to address standing steroids on d.c. Chest pain improved with tylenol. Allergic to symbicort, advised to bring advair from home if able. Continue daliresp. Cardizem increased to 30 mg PO Q6h. Suspect HR/BP partly from breathing/nebs, overall improved. hb overall stable from prior. FOBT neg. DVTPPX heparin PT eval noted. Chest PT Dispo d/c home with VNS/PT in 24 hours on PO prednisone and home O2 if continues to improve and no new events. Plan discussed with patient in detail, all questions answered. Discussed with nursing. Visit type - Emergency Visit Emergency Visit: Yes ED Registration Date: 05/27/18 Care time: The patient presented to the Emergency Department on the above date and was hospitalized for further evaluation of their emergent condition. - New Patient This patient is new to me today: No - Critical Care Critical Care patient: No - Discharge Referral Referred to [facility] Med [facility] No
[2018-06-05] MEDS ORDERED: PT OWN MED DRAWER 7, Y5N ONE ×2 (10:19→13:34)
[2018-06-05] MEDS: AZITHROMYCIN 250 MG TABLET PO SCH (10:21)
[2018-06-05] MEDS: FOLIC ACID 1 MG TABLET (FP) PO SCH (10:21)
[2018-06-05] MEDS: ROFLUMILAST 500 MCG TABLET PO SCH (10:21)
[2018-06-05] MEDS: FERROUS SO4 325 MG TABLET (FP) PO SCH (10:21)
[2018-06-05] MEDS: PANTOPRAZOLE 20 MG TABLET (FP) PO SCH (10:21)
[2018-06-05] MEDS: ENOXAPARIN NA (PORCINE) 40 MG/0.4 ML DISP.SYRIN SQ SCH (10:22)
--- NOTE | 2018-06-05 11:51 | PN ---
Progress Note (short form) - Note Progress Note: Tachypneic and desaturation while ambulating after only 3 minutes. On 4 L NC her saturation was only 87% and was then increased to 6 L NC with a saturation of 92% to 93%. m Intake & Output 06/02/18 06/03/18 06/04/18 06/05/18 23:59 23:59 23:59 23:59 Intake Total 1560 2100 445 Balance 1560 2100 445 Weight 146 lb Last Vital Signs Temp Pulse Resp BP Pulse Ox 98 F 84 24 152/69 93 L 06/05/18 10:47 06/05/18 11:45 06/05/18 11:45 06/05/18 11:45 06/05/18 11:43 Active Medications Acetaminophen (Tylenol -) 650 mg PO Q6H PRN PRN Reason: PAIN LEVEL 6-10 Last Admin: 06/03/18 18:28 Dose: 650 mg Albuterol Sulfate (Ventolin 0.083% Nebulizer Soln -) 1 amp NEB Q1H PRN PRN Reason: SHORT OF BREATH/WHEEZING Albuterol/Ipratropium (Duoneb -) 1 amp NEB Q4HPO [facility] Last Admin: 06/05/18 10:05 Dose: 1 amp Azithromycin (Zithromax -) 250 mg PO DAILY [facility] Last Admin: 06/05/18 10:21 Dose: 250 mg Diltiazem HCl (Cardizem -) 30 mg PO Q6HPO [facility] Last Admin: 06/05/18 05:58 Dose: 30 mg Enoxaparin Sodium (Lovenox -) 40 mg SQ DAILY [facility] Last Admin: 06/05/18 10:22 Dose: 40 mg Ergocalciferol (Drisdol -) 50,000 unit PO Q7D@1000 [facility] Last Admin: 06/01/18 09:24 Dose: 50,000 unit Ferrous Sulfate (Feosol -) 325 mg PO DAILY [facility] Last Admin: 06/05/18 10:21 Dose: 325 mg Folic Acid (Folic Acid -) 1 mg PO DAILY [facility] Last Admin: 06/05/18 10:21 Dose: 1 mg Montelukast Sodium (Singulair -) 10 mg PO HS [facility] Last Admin: 06/04/18 21:35 Dose: 10 mg Pantoprazole Sodium (Protonix -) 20 mg PO DAILY [facility] Last Admin: 06/05/18 10:21 Dose: 20 mg Polyethylene Glycol (Miralax (For Daily Use) -) 17 gm PO DAILY PRN PRN Reason: CONSTIPATION Prednisone (Deltasone -) 60 mg PO DAILY [facility] Last Admin: 06/05/18 10:21 Dose: 60 mg Roflumilast (Daliresp -) 500 mcg PO DAILY [facility] Last Admin: 06/05/18 10:21 Dose: 500 mcg Constitutional: Yes: Moderately tachypneic Eyes: Yes: WNL HENT: Yes: WNL Neck: Yes: WNL Cardiovascular: Yes: Regular Rate and Rhythm, S1, S2 Respiratory: Yes: Few scattered wheezes, poor air movement Gastrointestinal: Yes: Normal Bowel Sounds, Soft Extremities: Yes: WNL Edema: No Labs: Problem List - Problems (1) COPD exacerbation Code(s): J44.1 - CHRONIC OBSTRUCTIVE PULMONARY DISEASE W (ACUTE) EXACERBATION (2) Shortness of breath Code(s): R06.02 - SHORTNESS OF BREATH (3) Bronchiectasis Code(s): J47.9 - BRONCHIECTASIS, UNCOMPLICATED (4) Chronic respiratory failure with hypoxia Code(s): J96.11 - CHRONIC RESPIRATORY FAILURE WITH HYPOXIA (5) Emphysema lung Code(s): J43.9 - EMPHYSEMA, UNSPECIFIED (6) Supplemental oxygen dependent Code(s): Z99.81 - DEPENDENCE ON SUPPLEMENTAL OXYGEN Assessment/Plan Acute COPD Exacerbation Chronic Hypoxic Respiratory Failure HTN - IV Medrol today - Hopefully change back to Prednisone in AM - Start: Spiriva / Symbicort - Inhaled bronchodilators PRN - O2 to keep SpO2 90% - daliresp - DVT prophylaxis - Chest PT Dr Carty
[2018-06-05] MEDS: ALBUTEROL SO4 0.083% IH SOL 2.5 MG/3 ML VIAL.NEB. NEB SCH ×3 (12:40→20:55)
[2018-06-05] MEDS: TIOTROPIUM BROMIDE 2.5 MCG (SPIRIVA) RESPIMAT INHALER IH SCH (13:03)
[2018-06-05] MEDS: methylPREDNISolone NA SUCC 40 MG/1 ML VIAL IVPUSH SCH (20:59)
[2018-06-05] MEDS: MONTELUKAST NA 10 MG TABLET PO SCH (21:00)
[2018-06-06] MEDS: dilTIAZem HCL 30 MG TABLET (FP) PO SCH ×5 (00:30→23:51)
[2018-06-06] MEDS: ALBUTEROL SO4 0.083% IH SOL 2.5 MG/3 ML VIAL.NEB. NEB PRN ×2 (03:41→23:25)
[2018-06-06] MEDS: ACETAMINOPHEN 325 MG TABLET (FP) PO PRN (03:43)
[2018-06-06] MEDS: ALBUTEROL SO4 0.083% IH SOL 2.5 MG/3 ML VIAL.NEB. NEB SCH ×4 (07:25→19:43)
--- NOTE | 2018-06-06 08:11 | PN ---
Teaching Attending Note Name of Resident: Babs Flores ATTENDING PHYSICIAN STATEMENT I saw and evaluated the patient. I reviewed the resident's note and discussed the case with the resident. I agree with the resident's findings and plan as documented with exceptions below. SUBJECTIVE: Patient seen and examined. Some worsening breathing today. No new complaints otherwise. Chest wall pain better. OBJECTIVE: Vital Signs Period Temp Pulse Resp BP Sys/Echevarria Pulse Ox Last 24 Hr 97.9 F-98.4 F 80-109 18-24 136-158/64-83 93-98 Intake & Output 06/03/18 06/04/18 06/05/18 06/06/18 23:59 23:59 23:59 23:59 Intake Total 2100 445 930 Balance 2100 445 930 General: lying in bed, more tachypneic than yesterday, able to talk in full sentences Chest: good air entry but more wheezing today, few scattered rales Abdomen: soft, obese, NT Extremities: no edema Active Medications Acetaminophen (Tylenol -) 650 mg PO Q6H PRN PRN Reason: PAIN LEVEL 6-10 Last Admin: 06/06/18 03:43 Dose: 650 mg Albuterol Sulfate (Ventolin 0.083% Nebulizer Soln -) 1 amp NEB Q1H PRN PRN Reason: SHORT OF BREATH/WHEEZING Last Admin: 06/06/18 03:41 Dose: 1 amp Albuterol Sulfate (Ventolin 0.083% Nebulizer Soln -) 1 amp NEB RQID [facility] Last Admin: 06/05/18 20:55 Dose: 1 amp Azithromycin (Zithromax -) 250 mg PO DAILY [facility] Last Admin: 06/05/18 10:21 Dose: 250 mg Diltiazem HCl (Cardizem -) 30 mg PO Q6HPO [facility] Last Admin: 06/06/18 06:08 Dose: 30 mg Enoxaparin Sodium (Lovenox -) 40 mg SQ DAILY [facility] Last Admin: 06/05/18 10:22 Dose: 40 mg Ergocalciferol (Drisdol -) 50,000 unit PO Q7D@1000 [facility] Last Admin: 06/01/18 09:24 Dose: 50,000 unit Ferrous Sulfate (Feosol -) 325 mg PO DAILY [facility] Last Admin: 06/05/18 10:21 Dose: 325 mg Folic Acid (Folic Acid -) 1 mg PO DAILY [facility] Last Admin: 06/05/18 10:21 Dose: 1 mg Methylprednisolone Sodium Succinate (Solu-Medrol -) 40 mg IVPUSH Q12H [facility] Last Admin: 06/05/18 20:59 Dose: 40 mg Montelukast Sodium (Singulair -) 10 mg PO HS [facility] Last Admin: 06/05/18 21:00 Dose: 10 mg Pantoprazole Sodium (Protonix -) 20 mg PO DAILY [facility] Last Admin: 06/05/18 10:21 Dose: 20 mg Polyethylene Glycol (Miralax (For Daily Use) -) 17 gm PO DAILY PRN PRN Reason: CONSTIPATION Roflumilast (Daliresp -) 500 mcg PO DAILY [facility] Last Admin: 06/05/18 10:21 Dose: 500 mcg Tiotropium [place] (Spiriva Respimat) 2 puff IH DAILY [facility] Last Admin: 06/05/18 13:03 Dose: 2 puff ASSESSMENT AND PLAN: 57yo F wtih PMH COPD on 2L NC at home, HTN and iron deficiency anemia admitted with shortness of breath and cugh. 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 Changed to IV steroids. Looks more tachypneic today. Continue IV solumedrol, standing and prn nebs. Repeat CXR. Pulmonary input noted. CT chest noted. ABG noted. Overall improved. May benefit from hs bipap however given bullous disease, at risk for pneumothorax. Repeat ABG. S/p 7 days of ceftriaxone. Azithromycin day 10, continue for now. Frequent exacerbations, will need to address standing steroids on d.c. Chest pain improved with tylenol. Allergic to symbicort, advised to bring advair from home if able. Continue daliresp. Cardizem increased to 30 mg PO Q6h. Suspect HR/BP partly from breathing/nebs, overall improved. hb overall stable from prior. FOBT neg. DVTPPX heparin PT eval noted. Continue Chest PT Dispo d/c plans on hold given worsening symptoms and need for IV steroids. Plan discussed with patient in detail, all questions answered.
[2018-06-06] MEDS: methylPREDNISolone NA SUCC 40 MG/1 ML VIAL IVPUSH SCH ×2 (08:23→17:41)
[2018-06-06 10:26] LABS: ARTERIAL BLD GAS O2 SATURATION 94.9 % (90-98.9); ARTERIAL BLOOD GAS BASE EXCESS 10.2 meq/l (-2-2); ARTERIAL BLOOD GAS PO2 73.6 mmHg (80-100); ARTERIAL BLOOD GAS pH 7.38 (7.35-7.45)
[2018-06-06 10:31] LABS: ALLENS TEST POSITIVE
[2018-06-06] MEDS ORDERED: PT OWN MED DRAWER 7, Y5N ONE (10:40)
[2018-06-06] MEDS: ENOXAPARIN NA (PORCINE) 40 MG/0.4 ML DISP.SYRIN SQ SCH (10:44)
[2018-06-06] MEDS: FERROUS SO4 325 MG TABLET (FP) PO SCH (10:44)
[2018-06-06] MEDS: FOLIC ACID 1 MG TABLET (FP) PO SCH (10:44)
[2018-06-06] MEDS: PANTOPRAZOLE 20 MG TABLET (FP) PO SCH (10:44)
[2018-06-06] MEDS: ROFLUMILAST 500 MCG TABLET PO SCH (10:44)
[2018-06-06] MEDS: AZITHROMYCIN 250 MG TABLET PO SCH (10:44)
[2018-06-06] MEDS: TIOTROPIUM BROMIDE 2.5 MCG (SPIRIVA) RESPIMAT INHALER IH SCH (10:45)
--- NOTE | 2018-06-06 11:10 | PN ---
Progress Note, Physician History of Present Illness: pulmonary alert,still dyspneic with exertion - Current Medication List Current Medications: Active Medications Acetaminophen (Tylenol -) 650 mg PO Q6H PRN PRN Reason: PAIN LEVEL 6-10 Last Admin: 06/06/18 03:43 Dose: 650 mg Albuterol Sulfate (Ventolin 0.083% Nebulizer Soln -) 1 amp NEB Q1H PRN PRN Reason: SHORT OF BREATH/WHEEZING Last Admin: 06/06/18 03:41 Dose: 1 amp Albuterol Sulfate (Ventolin 0.083% Nebulizer Soln -) 1 amp NEB RQID [facility] Last Admin: 06/06/18 07:25 Dose: 1 amp Azithromycin (Zithromax -) 250 mg PO DAILY [facility] Last Admin: 06/06/18 10:44 Dose: 250 mg Diltiazem HCl (Cardizem -) 30 mg PO Q6HPO [facility] Last Admin: 06/06/18 06:08 Dose: 30 mg Enoxaparin Sodium (Lovenox -) 40 mg SQ DAILY [facility] Last Admin: 06/06/18 10:44 Dose: 40 mg Ergocalciferol (Drisdol -) 50,000 unit PO Q7D@1000 [facility] Last Admin: 06/01/18 09:24 Dose: 50,000 unit Ferrous Sulfate (Feosol -) 325 mg PO DAILY [facility] Last Admin: 06/06/18 10:44 Dose: 325 mg Folic Acid (Folic Acid -) 1 mg PO DAILY [facility] Last Admin: 06/06/18 10:44 Dose: 1 mg Methylprednisolone Sodium Succinate (Solu-Medrol -) 40 mg IVPUSH Q12H [facility] Last Admin: 06/06/18 08:23 Dose: 40 mg Montelukast Sodium (Singulair -) 10 mg PO HS [facility] Last Admin: 06/05/18 21:00 Dose: 10 mg Pantoprazole Sodium (Protonix -) 20 mg PO DAILY [facility] Last Admin: 06/06/18 10:44 Dose: 20 mg Polyethylene Glycol (Miralax (For Daily Use) -) 17 gm PO DAILY PRN PRN Reason: CONSTIPATION Roflumilast (Daliresp -) 500 mcg PO DAILY [facility] Last Admin: 06/06/18 10:44 Dose: 500 mcg Tiotropium [place] (Spiriva Respimat) 2 puff IH DAILY [facility] Last Admin: 06/06/18 10:45 Dose: 2 puff - Objective Vital Signs: Vital Signs Temperature 98.2 F 06/06/18 09:00 Pulse Rate 73 06/06/18 09:00 Respiratory Rate 21 06/06/18 09:00 Blood Pressure 150/74 06/06/18 09:00 O2 Sat by Pulse Oximetry (%) 96 06/05/18 21:00 Constitutional: Yes: Well Nourished, Calm Eyes: Yes: WNL HENT: Yes: WNL Neck: Yes: WNL Cardiovascular: Yes: Regular Rate and Rhythm, S1, S2 Respiratory: Yes: Rhonchi (few scattered rhonchi) Gastrointestinal: Yes: Normal Bowel Sounds, Soft Extremities: Yes: WNL Edema: No Labs: CBC, BMP 06/01/18 06:15 06/01/18 06:15 Laboratory Tests 06/06/18 10:15 ABG pH 7.38 ABG pCO2 at Pt Temp 63.0 H* ABG pO2 at Pt Temp 73.6 L D ABG HCO3 36.8 H ABG O2 Sat (Measured) 94.9 Oxygen Flow Rate 3l Problem List - Problems (1) COPD exacerbation Code(s): J44.1 - CHRONIC OBSTRUCTIVE PULMONARY DISEASE W (ACUTE) EXACERBATION (2) Shortness of breath Code(s): R06.02 - SHORTNESS OF BREATH (3) Bronchiectasis Code(s): J47.9 - BRONCHIECTASIS, UNCOMPLICATED (4) Chronic respiratory failure with hypoxia Code(s): J96.11 - CHRONIC RESPIRATORY FAILURE WITH HYPOXIA (5) Emphysema lung Code(s): J43.9 - EMPHYSEMA, UNSPECIFIED (6) Supplemental oxygen dependent Code(s): Z99.81 - DEPENDENCE ON SUPPLEMENTAL OXYGEN Assessment/Plan A/P Acute COPD Exacerbation ACUTE ON Chronic Hypoxic/Hypercapneic Respiratory Failure HTN - medrol - inhaled bronchodilators standing and PRN - O2 to keep SpO2 90% - daliresp - pt with frequent exacerbations, may need to be on chronic low dose steroids - DVT prophylaxis - bipap if pt developes increased respiratory distress DR SMITH
--- NOTE | 2018-06-06 16:13 | PN ---
Physical Exam: SUBJECTIVE: Patient seen and examined at bedside this morning. She is noted to have dyspnea on exertion. No acute events overnight. OBJECTIVE: Vital Signs Period Temp Pulse Resp BP Sys/Echevarria Pulse Ox Last 24 Hr 97.9 F-98.4 F 73-91 18-24 136-158/72-83 96 GENERAL: The patient is awake, alert, and fully oriented, in 3L NC HEAD: Normal with no signs of trauma. NECK: Trachea midline, full range of motion, supple. LUNGS: +scattered wheezes bilaterally, good air entry HEART: Regular rate and rhythm, S1, S2 without murmur, rub or gallop. ABDOMEN: Soft, nontender, nondistended, normoactive bowel sounds. EXTREMITIES: 2+ pulses, warm, well-perfused, no edema. NEUROLOGICAL: Cranial nerves II through XII grossly intact. Normal speech, gait not observed. PSYCH: Normal mood, normal affect. SKIN: Warm, dry, normal turgor, no rashes or lesions noted Laboratory Results - last 24 hr 06/06/18 10:15 Puncture Site Left radial ABG pH 7.38 ABG pCO2 at Pt Temp 63.0 H* ABG pO2 at Pt Temp 73.6 L D ABG HCO3 36.8 H ABG O2 Sat (Measured) 94.9 ABG O2 Content 13.9 L ABG Base Excess 10.2 H Timmy Test Positive O2 Delivery Device Nasal cannula Oxygen Flow Rate 3l Mechanical Rate No PEEP 0.0 Active Medications Generic Name Dose Route Start Last Admin Trade Name Freq PRN Reason Stop Dose Admin Acetaminophen 650 mg 05/30/18 20:49 06/06/18 03:43 Tylenol - PO 650 mg Q6H PRN Administration PAIN LEVEL 6-10 Albuterol Sulfate 1 amp 05/29/18 13:11 06/06/18 03:41 Ventolin 0.083% Nebulizer Soln - NEB 1 amp Q1H PRN Administration SHORT OF BREATH/WHEEZING Albuterol Sulfate 1 amp 06/05/18 12:00 06/06/18 11:30 Ventolin 0.083% Nebulizer Soln - NEB 1 amp RQID ZACHARY Administration Azithromycin 250 mg 06/02/18 10:00 06/06/18 10:44 Zithromax - PO 250 mg DAILY ZACHARY Administration Diltiazem HCl 30 mg 05/31/18 12:00 06/06/18 12:47 Cardizem - PO 30 mg Q6HPO ZACHARY Administration Enoxaparin Sodium 40 mg 06/04/18 10:00 06/06/18 10:44 Lovenox - SQ 40 mg DAILY ZACHARY Administration Ergocalciferol 50,000 unit 06/01/18 10:00 06/01/18 09:24 Drisdol - PO 50,000 unit Q7D@1000 ZACHARY Administration Ferrous Sulfate 325 mg 05/28/18 10:00 06/06/18 10:44 Feosol - PO 325 mg DAILY ZACHARY Administration Folic Acid 1 mg 05/28/18 10:00 06/06/18 10:44 Folic Acid - PO 1 mg DAILY ZACHARY Administration Methylprednisolone Sodium Succinate 40 mg 06/06/18 18:00 Solu-Medrol - IVPUSH Q8H-IV ZACHARY Montelukast Sodium 10 mg 05/31/18 22:00 06/05/18 21:00 Singulair - PO 10 mg HS ZACHARY Administration Pantoprazole Sodium 20 mg 05/30/18 10:00 06/06/18 10:44 Protonix - PO 20 mg DAILY ZACHARY Administration Polyethylene Glycol 17 gm 05/31/18 14:40 Miralax (For Daily Use) - PO DAILY PRN CONSTIPATION Roflumilast 500 mcg 05/30/18 13:00 06/06/18 10:44 Daliresp - PO 500 mcg DAILY ZACHARY Administration Tiotropium [place] 2 puff 06/05/18 12:00 06/06/18 10:45 Spiriva Respimat IH 2 puff DAILY ZACHARY Administration Imaging: Chest X-Ray (05/27/18): No significant interval change. Persistent bilateral increased interstitial markings. Differential diagnosis again includes chronic interstitial lung disease. Cannot rule out noncardiogenic mild pulmonary venous congestion or interstitial infiltrates. Chest X-ray (05/30/18): No acute pathology or significant change. Chest CT scan without contrast (05/31/18): Moderately severe COPD with extensive bilateral bronchiectasis. These findings are unchanged since a previous study of 02/07/18. There is no evidence of acute pathology within the chest. ASSESSMENT/PLAN: Patient is a 58 year old female who presented with shortness of breath and found to be in COPD exacerbation. Patient admitted for further monitoring and management. #Acute on Chronic COPD exacerbation : - may be 2/2 CAP vs inhaled chemicals (house paint) - Continue Azithromycin 250mg daily - Trial of oral prednisone done yesterday, patient became dyspneic upon ambulating and desaturated. She was put back to IV medrol. - Patient seemed tachypneic this morning. - ABG and CXR ordered. - Pulmonary Consult. Recs appreciated: - Increase solu-medrol dose 40mg to q8h - Duonebs QID - Albuterol PRN - Add Daliresp (500mcg daily) - Symbicort not given. Pt reports allergy to symbicort. - Continue O2 at 3L - pt uses 3L at home - Keep O2 satn >90% - Chest PT BID - Pt has frequent exacerbations, may need to be on chronic low dose steroids at home. #Atypical Chest Pain: midsternal tenderness on palpation, positional - Likely musculoskeletal due to COPD Exac - Troponins negative x1, unlikely cardiac in nature - Tylenol PRN for pain. - Lidocaine patch given which provided significant relief #Microcytic Anemia - likely due to RUBY - now at baseline Hgb - Fe Panel previously showed low Fe, low Fesat, low-normal ferritin - Continue Fe supplements #Hypertension - Cardizem to 30mg q6h - Monitor BP closely #FEN - not on fluids - lytes wnl - Sodium controlled diet #Prophylaxis - Lovenox 40mg sq daily #Disposition - Med/Surg - PT evaluation:able to walk 80 feet. Visit type - Emergency Visit Emergency Visit: Yes ED Registration Date: 05/27/18 Care time: The patient presented to the Emergency Department on the above date and was hospitalized for further evaluation of their emergent condition. - New Patient This patient is new to me today: Yes Date on this admission: 06/06/18 - Critical Care Critical Care patient: No
[2018-06-06] MEDS: MONTELUKAST NA 10 MG TABLET PO SCH (21:56)
[2018-06-07] MEDS: methylPREDNISolone NA SUCC 40 MG/1 ML VIAL IVPUSH SCH ×3 (02:30→18:16)
[2018-06-07] MEDS: ALBUTEROL SO4 0.083% IH SOL 2.5 MG/3 ML VIAL.NEB. NEB PRN (04:42)
[2018-06-07] MEDS: dilTIAZem HCL 30 MG TABLET (FP) PO SCH ×4 (05:59→23:57)
[2018-06-07] MEDS: ALBUTEROL SO4 0.083% IH SOL 2.5 MG/3 ML VIAL.NEB. NEB SCH ×4 (07:40→20:45)
[2018-06-07 07:43] LABS: BASO % 0.6 % (0-2.0); HEMATOCRIT 32.3 % (32.4-45.2); HEMOGLOBIN 9.7 GM/dL (10.7-15.3); LYMPH % 4.5 % (8-40); MCH 21.9 pg (25.7-33.7); MCHC 30.1 g/dl (32.0-36.0); MEAN CELL VOLUME 72.7 fl (80-96); MEAN PLT VOLUME 9.4 fl (7.5-11.1); MONO % 5.2 % (3.8-10.2); NEUT % 89.7 % (42.8-82.8); PLATELET COUNT 119 K/MM3 (134-434); RBC 4.44 M/mm3 (3.60-5.2); RDW 15.6 % (11.6-15.6); WHITE BLOOD COUNT 18.3 K/mm3 (4.0-10.0)
[2018-06-07 08:13] LABS: CHLORIDE 102 mmol/L (98-107); POTASSIUM 4.2 mmol/L (3.5-5.1); SODIUM 143 mmol/L (136-145)
[2018-06-07 08:32] LABS: ALBUMIN 2.7 g/dl (3.4-5.0); ALK PHOS 66 U/L (45-117); ANION GAP 3 MMOL/L (8-16); BILIRUBIN,TOTAL 0.5 mg/dL (0.2-1); BLOOD UREA NITROGEN 39 mg/dL (7-18); CALCIUM 8.6 mg/dL (8.5-10.1); CO2 38 mmol/L (21-32); CREATININE 0.9 mg/dL (0.55-1.3); GLUCOSE,RANDOM 128 mg/dL (74-106); MAGNESIUM 2.4 mg/dL (1.8-2.4); PHOSPHOROUS 3.1 mg/dL (2.5-4.9); SGOT/AST 21 U/L (15-37); SGPT/ALT 38 U/L (13-61); TOT PROT 6.1 g/dl (6.4-8.2)
[2018-06-07] MEDS ORDERED: PT OWN MED DRAWER 7, Y5N ONE ×2 (08:54→11:44)
[2018-06-07] MEDS: FOLIC ACID 1 MG TABLET (FP) PO SCH (09:00)
[2018-06-07] MEDS: FERROUS SO4 325 MG TABLET (FP) PO SCH (09:00)
[2018-06-07] MEDS: PANTOPRAZOLE 20 MG TABLET (FP) PO SCH (09:01)
[2018-06-07] MEDS: ROFLUMILAST 500 MCG TABLET PO SCH (09:01)
[2018-06-07] MEDS: ENOXAPARIN NA (PORCINE) 40 MG/0.4 ML DISP.SYRIN SQ SCH (09:01)
[2018-06-07] MEDS: AZITHROMYCIN 250 MG TABLET PO SCH (09:01)
[2018-06-07 10:51] LABS: ANISOCYTOSIS 1+; MACROCYTOSIS 1+; PLATELET ESTIMATE DECREASED; TARGET CELLS 2+
[2018-06-07] MEDS: TIOTROPIUM BROMIDE 2.5 MCG (SPIRIVA) RESPIMAT INHALER IH SCH (11:37)
--- NOTE | 2018-06-07 12:54 | PN ---
Progress Note (short form) - Note Progress Note: Still with HILL. Just returned from the restroom and clearly increased WOB. No CP. Reports feeling OK at rest. Intake & Output 06/04/18 06/05/1818 06/07/18 23:59 23:59 23:59 23:59 Intake Total 445 930 840 Balance 445 930 840 Last Vital Signs Temp Pulse Resp BP Pulse Ox 98.0 F 93 H 22 149/60 98 06/07/18 08:56 06/07/18 12:09 06/07/18 12:09 06/07/18 12:09 06/07/18 09:00 Active Medications Acetaminophen (Tylenol -) 650 mg PO Q6H PRN PRN Reason: PAIN LEVEL 6-10 Last Admin: 06/06/18 03:43 Dose: 650 mg Albuterol Sulfate (Ventolin 0.083% Nebulizer Soln -) 1 amp NEB Q1H PRN PRN Reason: SHORT OF BREATH/WHEEZING Last Admin: 06/07/18 04:42 Dose: 1 amp Albuterol Sulfate (Ventolin 0.083% Nebulizer Soln -) 1 amp NEB RQID [facility] Last Admin: 06/07/18 07:40 Dose: 1 amp Azithromycin (Zithromax -) 250 mg PO DAILY [facility] Last Admin: 06/07/18 09:01 Dose: 250 mg Diltiazem HCl (Cardizem -) 30 mg PO Q6HPO [facility] Last Admin: 06/07/18 12:13 Dose: 30 mg Enoxaparin Sodium (Lovenox -) 40 mg SQ DAILY [facility] Last Admin: 06/07/18 09:01 Dose: 40 mg Ergocalciferol (Drisdol -) 50,000 unit PO Q7D@1000 [facility] Last Admin: 06/01/18 09:24 Dose: 50,000 unit Ferrous Sulfate (Feosol -) 325 mg PO DAILY [facility] Last Admin: 06/07/18 09:00 Dose: 325 mg Folic Acid (Folic Acid -) 1 mg PO DAILY [facility] Last Admin: 06/07/18 09:00 Dose: 1 mg Methylprednisolone Sodium Succinate (Solu-Medrol -) 40 mg IVPUSH Q8H-IV [facility] Last Admin: 06/07/18 09:01 Dose: 40 mg Montelukast Sodium (Singulair -) 10 mg PO HS [facility] Last Admin: 06/06/18 21:56 Dose: 10 mg Pantoprazole Sodium (Protonix -) 20 mg PO DAILY [facility] Last Admin: 06/07/18 09:01 Dose: 20 mg Polyethylene Glycol (Miralax (For Daily Use) -) 17 gm PO DAILY PRN PRN Reason: CONSTIPATION Roflumilast (Daliresp -) 500 mcg PO DAILY [facility] Last Admin: 06/07/18 09:01 Dose: 500 mcg Tiotropium [place] (Spiriva Respimat) 2 puff IH DAILY [facility] Last Admin: 06/07/18 11:37 Dose: 2 puff Constitutional: Yes: Moderately tachypneic Eyes: Yes: WNL HENT: Yes: WNL Neck: Yes: WNL Cardiovascular: Yes: Regular Rate and Rhythm, S1, S2 Respiratory: Yes: Few scattered wheezes, poor air movement Gastrointestinal: Yes: Normal Bowel Sounds, Soft Extremities: Yes: WNL Edema: No Labs: Laboratory Results - last 24 hr 06/07/18 06/07/18 07:00 07:00 WBC 18.3 H RBC 4.44 Hgb 9.7 L Hct 32.3 L MCV 72.7 L MCH 21.9 L MCHC 30.1 L RDW 15.6 Plt Count 119 L D MPV 9.4 Absolute Neuts (auto) 16.4 H Neutrophils % 89.7 H Neutrophils % (Manual) 86.1 H Band Neutrophils % 2.0 Lymphocytes % 4.5 L D Lymphocytes % (Manual) 4.0 L Monocytes % 5.2 Monocytes % (Manual) 8 D Eosinophils % 0.0 D Eosinophils % (Manual) 0.0 Basophils % 0.6 D Basophils % (Manual) 0.0 Myelocytes % (Man) 0 D Promyelocytes % (Man) 0 Blast Cells % (Manual) 0 Nucleated RBC % 0 Metamyelocytes 0 Hypochromia 2+ Platelet Estimate Decreased Polychromasia 1+ Poikilocytosis 0 Anisocytosis 1+ Microcytosis 1+ Macrocytosis 1+ Target Cells 2+ Sodium 143 Potassium 4.2 Chloride 102 Carbon Dioxide 38 H Anion Gap 3 L BUN 39 H Creatinine 0.9 Creat Clearance w eGFR > 60 Random Glucose 128 H Calcium 8.6 Phosphorus 3.1 Magnesium 2.4 Total Bilirubin 0.5 AST 21 ALT 38 Alkaline Phosphatase 66 Total Protein 6.1 L Albumin 2.7 L Problem List - Problems (1) COPD exacerbation Code(s): J44.1 - CHRONIC OBSTRUCTIVE PULMONARY DISEASE W (ACUTE) EXACERBATION (2) Shortness of breath Code(s): R06.02 - SHORTNESS OF BREATH (3) Bronchiectasis Code(s): J47.9 - BRONCHIECTASIS, UNCOMPLICATED (4) Chronic respiratory failure with hypoxia Code(s): J96.11 - CHRONIC RESPIRATORY FAILURE WITH HYPOXIA (5) Emphysema lung Code(s): J43.9 - EMPHYSEMA, UNSPECIFIED (6) Supplemental oxygen dependent Code(s): Z99.81 - DEPENDENCE ON SUPPLEMENTAL OXYGEN Assessment/Plan Acute COPD Exacerbation Chronic Hypoxic Respiratory Failure HTN - IV Medrol at the same dose - Continue Spiriva / Symbicort - Inhaled bronchodilators PRN - O2 to keep SpO2 90% - Daliresp - DVT prophylaxis - Chest PT Dr Carty
--- NOTE | 2018-06-07 13:16 | PN ---
Physical Exam: SUBJECTIVE: Patient seen and examined at bedside this morning. No acute events overnight. Patient has dyspnea on exertion (gets out of breath after going to the bathroom) and gets better at rest. OBJECTIVE: Vital Signs Period Temp Pulse Resp BP Sys/Echevarria Pulse Ox Last 24 Hr 97.9 F-98.6 F 84-93 21-22 138-155/60-84 96-98 GENERAL: The patient is awake, alert, and fully oriented, on 3L NC. HEAD: Normal with no signs of trauma. EYES: PERRLA, EOMI, sclera anicteric, conjunctiva clear. ENT: Ears normal, nares patent, oropharynx clear without exudates, moist mucous membranes. NECK: Trachea midline, full range of motion, supple. LUNGS: +bilateral scattered wheezes, good air entry. HEART: Regular rate and rhythm, S1, S2 without murmur, rub or gallop. ABDOMEN: Soft, nontender, nondistended, normoactive bowel sounds. EXTREMITIES: 2+ pulses, warm, well-perfused, no edema. NEUROLOGICAL: Cranial nerves II through XII grossly intact. Normal speech, normal gait. PSYCH: Normal mood, normal affect. SKIN: Warm, dry, normal turgor, no rashes or lesions noted Laboratory Results - last 24 hr 06/07/18 06/07/18 07:00 07:00 WBC 18.3 H RBC 4.44 Hgb 9.7 L Hct 32.3 L MCV 72.7 L MCH 21.9 L MCHC 30.1 L RDW 15.6 Plt Count 119 L D MPV 9.4 Absolute Neuts (auto) 16.4 H Neutrophils % 89.7 H Neutrophils % (Manual) 86.1 H Band Neutrophils % 2.0 Lymphocytes % 4.5 L D Lymphocytes % (Manual) 4.0 L Monocytes % 5.2 Monocytes % (Manual) 8 D Eosinophils % 0.0 D Eosinophils % (Manual) 0.0 Basophils % 0.6 D Basophils % (Manual) 0.0 Myelocytes % (Man) 0 D Promyelocytes % (Man) 0 Blast Cells % (Manual) 0 Nucleated RBC % 0 Metamyelocytes 0 Hypochromia 2+ Platelet Estimate Decreased Polychromasia 1+ Poikilocytosis 0 Anisocytosis 1+ Microcytosis 1+ Macrocytosis 1+ Target Cells 2+ Sodium 143 Potassium 4.2 Chloride 102 Carbon Dioxide 38 H Anion Gap 3 L BUN 39 H Creatinine 0.9 Creat Clearance w eGFR > 60 Random Glucose 128 H Calcium 8.6 Phosphorus 3.1 Magnesium 2.4 Total Bilirubin 0.5 AST 21 ALT 38 Alkaline Phosphatase 66 Total Protein 6.1 L Albumin 2.7 L Active Medications Generic Name Dose Route Start Last Admin Trade Name Freq PRN Reason Stop Dose Admin Acetaminophen 650 mg 05/30/18 20:49 06/06/18 03:43 Tylenol - PO 650 mg Q6H PRN Administration PAIN LEVEL 6-10 Albuterol Sulfate 1 amp 05/29/18 13:11 06/07/18 04:42 Ventolin 0.083% Nebulizer Soln - NEB 1 amp Q1H PRN Administration SHORT OF BREATH/WHEEZING Albuterol Sulfate 1 amp 06/05/18 12:00 06/07/18 07:40 Ventolin 0.083% Nebulizer Soln - NEB 1 amp RQID ZACHARY Administration Azithromycin 250 mg 06/02/18 10:00 06/07/18 09:01 Zithromax - PO 250 mg DAILY ZACHARY Administration Diltiazem HCl 30 mg 05/31/18 12:00 06/07/18 12:13 Cardizem - PO 30 mg Q6HPO ZACHARY Administration Enoxaparin Sodium 40 mg 06/04/18 10:00 06/07/18 09:01 Lovenox - SQ 40 mg DAILY ZACHARY Administration Ergocalciferol 50,000 unit 06/01/18 10:00 06/01/18 09:24 Drisdol - PO 50,000 unit Q7D@1000 ZACHARY Administration Ferrous Sulfate 325 mg 05/28/18 10:00 06/07/18 09:00 Feosol - PO 325 mg DAILY ZACHARY Administration Folic Acid 1 mg 05/28/18 10:00 06/07/18 09:00 Folic Acid - PO 1 mg DAILY ZACHARY Administration Methylprednisolone Sodium Succinate 40 mg 06/06/18 18:00 06/07/18 09:01 Solu-Medrol - IVPUSH 40 mg Q8H-IV ZACHARY Administration Montelukast Sodium 10 mg 05/31/18 22:00 06/06/18 21:56 Singulair - PO 10 mg HS ZACHARY Administration Pantoprazole Sodium 20 mg 05/30/18 10:00 06/07/18 09:01 Protonix - PO 20 mg DAILY ZACHARY Administration Polyethylene Glycol 17 gm 05/31/18 14:40 Miralax (For Daily Use) - PO DAILY PRN CONSTIPATION Roflumilast 500 mcg 05/30/18 13:00 06/07/18 09:01 Daliresp - PO 500 mcg DAILY ZACHARY Administration Tiotropium [place] 2 puff 06/05/18 12:00 06/07/18 11:37 Spiriva Respimat IH 2 puff DAILY ZACHARY Administration Imaging: Chest X-Ray (05/27/18): No significant interval change. Persistent bilateral increased interstitial markings. Differential diagnosis again includes chronic interstitial lung disease. Cannot rule out noncardiogenic mild pulmonary venous congestion or interstitial infiltrates. Chest X-ray (05/30/18): No acute pathology or significant change. Chest CT scan without contrast (05/31/18): Moderately severe COPD with extensive bilateral bronchiectasis. These findings are unchanged since a previous study of 02/07/18. There is no evidence of acute pathology within the chest. CXR (06/06/18) 2 views of the some minimal degenerative changes with wedging. The soft tissues are intact. The chest reveal a normal-sized heart, normal knob and normal genesis. There are some coarse lung changes. There may be some linear atelectasis/density by the left heart border. Since the prior study 05/30/18, the density by the left heart border has become apparent. This most likely represents a focal area of atelectasis. ASSESSMENT/PLAN: Patient is a 58 year old female who presented with shortness of breath and found to be in COPD exacerbation. Patient admitted for further monitoring and management. #Acute on Chronic COPD exacerbation : - may be 2/2 CAP vs inhaled chemicals (house paint) - Continue Azithromycin 250mg daily - Trial of oral prednisone done last Wednesday, patient became dyspneic upon ambulating and desaturated. She was put back to IV medrol q8h. - Patient seemed tachypneic this morning. She reports dyspnea on exertion when she goes to the bathroom, and improved with rest. - Recommend bedrest. Commode ordered. - Pulmonary Consult. Recs appreciated: - Continue solu-medrol dose 40mg to q8h - Duonebs QID - Albuterol PRN - Add Daliresp (500mcg daily) - Symbicort not given. Pt reports allergy to symbicort. - Continue O2 at 3L - pt uses 3L at home - Keep O2 satn >90% - Chest PT BID - Pt has frequent exacerbations, may need to be on chronic low dose steroids at home. #Atypical Chest Pain: midsternal tenderness on palpation, positional - Likely musculoskeletal due to COPD Exac - Troponins negative x1, unlikely cardiac in nature - Tylenol PRN for pain. - Lidocaine patch given which provided significant relief #Microcytic Anemia - likely due to RUBY - now at baseline Hgb - Fe Panel previously showed low Fe, low Fesat, low-normal ferritin - Continue Fe supplements #Hypertension - Cardizem to 30mg q6h - Monitor BP closely #FEN - not on fluids - lytes wnl - Sodium controlled diet #Prophylaxis - Lovenox 40mg sq daily #Disposition - Med/Surg Visit type - Emergency Visit Emergency Visit: Yes ED Registration Date: 05/27/18 Care time: The patient presented to the Emergency Department on the above date and was hospitalized for further evaluation of their emergent condition. - New Patient This patient is new to me today: Yes Date on this admission: 06/07/18 - Critical Care Critical Care patient: No
--- NOTE | 2018-06-07 13:26 | PN ---
Teaching Attending Note Name of Resident: Babs Flores ATTENDING PHYSICIAN STATEMENT I saw and evaluated the patient. I reviewed the resident's note and discussed the case with the resident. I agree with the resident's findings and plan as documented. SUBJECTIVE:dyspnea at rest while eating breakfast. unable to get to restroom due to dyspnea. states she been having increasing anxiety of thought of having to move. dneies CP, fever, chills, cough, N/V/C/D OBJECTIVE: Last Vital Signs Temp Pulse Resp BP Pulse Ox 98.0 F 93 H 22 149/60 98 06/07/18 08:56 06/07/18 12:09 06/07/18 12:09 06/07/18 12:09 06/07/18 09:00 General tachypnic at rest CV S1 S2 RRR Lungs CTA B/L poor inspiratory effort ASSESSMENT AND PLAN: 58yo F with PMH HTn, COPD on home O2 (3L NC) and anemia presented with SOB and cough 1. Acute on chronic COPD exacerbation- likley precipitated by harsh chemical smells. currently tachypnic just eating. saturating 95% on 3L NC. will have neb treatment at this time. re-assessed 10 mins later with normal un-labored breaths with breathing treatment in progress. attempt to transition to po 2 days ago resulted in hypoxia with require 6L NC to improve saturation. currently at baseline. will cont current steroid treatment. increasing anxiety can be result of steroids vs just anxiety of fear of dyspnea. encouraged pt to be on strict bedrest for rest of the day. with bedside commode. will monitor if now improved. will need to speak with pulm if any added benefit of increasing therapy. advair not available here awaiting patient to bring in from home as has allergy to symbicort. completed abx course. pulmonary on board 2. HTN urgency- likely exacerbated by struggle to breathe. not at goal, likely induced from dyspnea and steroids. will monitor for now. if persists as breathing improved will consider adjusting medications. 3. RAOUL- likely induced by HTN episode. now rseolved avoid nephrotoxic agents 4. Normocytic anemia- was likely dehydrated on presentation. now Hgb at baseline. no indication for txn at this time 5. DVT ppx- hep sq
[2018-06-07] MEDS: MONTELUKAST NA 10 MG TABLET PO SCH (21:51)
[2018-06-08] MEDS: ALBUTEROL SO4 0.083% IH SOL 2.5 MG/3 ML VIAL.NEB. NEB PRN ×3 (00:15→19:03)
[2018-06-08] MEDS: methylPREDNISolone NA SUCC 40 MG/1 ML VIAL IVPUSH SCH ×3 (01:34→21:42)
[2018-06-08] MEDS: dilTIAZem HCL 30 MG TABLET (FP) PO SCH ×4 (06:11→23:10)
[2018-06-08] MEDS: ALBUTEROL SO4 0.083% IH SOL 2.5 MG/3 ML VIAL.NEB. NEB SCH ×4 (08:26→21:00)
[2018-06-08 09:14] LABS: BASO % 0.2 % (0-2.0); HEMATOCRIT 30.8 % (32.4-45.2); HEMOGLOBIN 9.5 GM/dL (10.7-15.3); LYMPH % 3.3 % (8-40); MCH 22.5 pg (25.7-33.7); MCHC 30.8 g/dl (32.0-36.0); MEAN CELL VOLUME 73.2 fl (80-96); MEAN PLT VOLUME 9.2 fl (7.5-11.1); MONO % 2.7 % (3.8-10.2); NEUT % 93.8 % (42.8-82.8); PLATELET COUNT 102 K/MM3 (134-434); RBC 4.21 M/mm3 (3.60-5.2); RDW 15.6 % (11.6-15.6); WHITE BLOOD COUNT 11.9 K/mm3 (4.0-10.0)
[2018-06-08] MEDS ORDERED: PT OWN MED DRAWER 7, Y5N ONE (09:58)
[2018-06-08] MEDS: PANTOPRAZOLE 20 MG TABLET (FP) PO SCH (10:00)
[2018-06-08] MEDS: FERROUS SO4 325 MG TABLET (FP) PO SCH (10:01)
[2018-06-08] MEDS: ROFLUMILAST 500 MCG TABLET PO SCH (10:01)
[2018-06-08] MEDS: FOLIC ACID 1 MG TABLET (FP) PO SCH (10:01)
[2018-06-08] MEDS: ERGOCALCIFEROL (VITAMIN D2) 50,000 UNIT CAPSULE (FP) PO SCH (10:01)
[2018-06-08] MEDS: ENOXAPARIN NA (PORCINE) 40 MG/0.4 ML DISP.SYRIN SQ SCH (10:01)
[2018-06-08] MEDS: TIOTROPIUM BROMIDE 2.5 MCG (SPIRIVA) RESPIMAT INHALER IH SCH (10:02)
--- NOTE | 2018-06-08 10:28 | PN ---
Teaching Attending Note Name of Resident: Babs Flores ATTENDING PHYSICIAN STATEMENT I saw and evaluated the patient. I reviewed the resident's note and discussed the case with the resident. I agree with the resident's findings and plan as documented. SUBJECTIVE:states breathing is slightly better than yesterday. gets triggered easily by movement or stressful factors. pt is anxious to go home. dneies CP, cough, fever, chills, N/V/C/D OBJECTIVE: Last Vital Signs Temp Pulse Resp BP Pulse Ox 98.5 F 74 20 148/74 97 06/08/18 09:03 06/08/18 09:03 06/08/18 09:03 06/08/18 09:03 06/07/18 21:00 General NAD CV S1 S2 RRR Lungs some mild expiratory wheezing. poor inspiratory effort ASSESSMENT AND PLAN: 58yo F with PMH HTn, COPD on home O2 (3L NC) and anemia presented with SOB and cough 1. Acute on chronic COPD exacerbation- likley precipitated by harsh chemical smells. somewhat improvement after placed on bedrest yesterday. would want to leave steroids at current dosing and re-assess tomorrow. will d/w pulm about titration of steroids. cont supplemental oxygen. inhalers. furhter recommendations per pulm. 2. HTN urgency- likely exacerbated by struggle to breathe. improved. will monitor 3. RAOUL- likely induced by HTN episode. now rseolved avoid nephrotoxic agents 4. Normocytic anemia- was likely dehydrated on presentation. now Hgb at baseline. no indication for txn at this time 5. DVT ppx- hep sq
--- NOTE | 2018-06-08 10:59 | PN ---
Progress Note (short form) - Note Progress Note: Still with HILL but a little better today. No acute events overnight. Reports feeling OK at rest. Intake & Output 06/05/18 06/06/18 06/07/18 06/08/18 23:59 23:59 23:59 23:59 Intake Total 930 840 400 Output Total 200 Balance 930 840 200 Last Vital Signs Temp Pulse Resp BP Pulse Ox 98.5 F 74 20 148/74 97 06/08/18 09:03 06/08/18 09:03 06/08/18 09:03 06/08/18 09:03 06/07/18 21:00 Active Medications Acetaminophen (Tylenol -) 650 mg PO Q6H PRN PRN Reason: PAIN LEVEL 6-10 Last Admin: 06/06/18 03:43 Dose: 650 mg Albuterol Sulfate (Ventolin 0.083% Nebulizer Soln -) 1 amp NEB Q1H PRN PRN Reason: SHORT OF BREATH/WHEEZING Last Admin: 06/08/18 04:35 Dose: 1 amp Albuterol Sulfate (Ventolin 0.083% Nebulizer Soln -) 1 amp NEB RQID [facility] Last Admin: 06/08/18 08:26 Dose: 1 amp Diltiazem HCl (Cardizem -) 30 mg PO Q6HPO [facility] Last Admin: 06/08/18 06:11 Dose: 30 mg Enoxaparin Sodium (Lovenox -) 40 mg SQ DAILY [facility] Last Admin: 06/08/18 10:01 Dose: 40 mg Ergocalciferol (Drisdol -) 50,000 unit PO Q7D@1000 [facility] Last Admin: 06/08/18 10:01 Dose: 50,000 unit Ferrous Sulfate (Feosol -) 325 mg PO DAILY [facility] Last Admin: 06/08/18 10:01 Dose: 325 mg Folic Acid (Folic Acid -) 1 mg PO DAILY [facility] Last Admin: 06/08/18 10:01 Dose: 1 mg Methylprednisolone Sodium Succinate (Solu-Medrol -) 40 mg IVPUSH Q12H [facility] Montelukast Sodium (Singulair -) 10 mg PO HS [facility] Last Admin: 06/07/18 21:51 Dose: 10 mg Pantoprazole Sodium (Protonix -) 20 mg PO DAILY [facility] Last Admin: 06/08/18 10:00 Dose: 20 mg Polyethylene Glycol (Miralax (For Daily Use) -) 17 gm PO DAILY PRN PRN Reason: CONSTIPATION Roflumilast (Daliresp -) 500 mcg PO DAILY [facility] Last Admin: 06/08/18 10:01 Dose: 500 mcg Tiotropium [place] (Spiriva Respimat) 2 puff IH DAILY [facility] Last Admin: 06/08/18 10:02 Dose: 2 puff Constitutional: Yes: Mildly tachypneic Eyes: Yes: WNL HENT: Yes: WNL Neck: Yes: WNL Cardiovascular: Yes: Regular Rate and Rhythm, S1, S2 Respiratory: Yes: Poor air entry, minimal scattered wheezes Gastrointestinal: Yes: Normal Bowel Sounds, Soft Extremities: Yes: WNL Edema: No Labs: Laboratory Results - last 24 hr 06/07/18 06/08/18 07:00 09:00 WBC 11.9 H RBC 4.21 Hgb 9.5 L Hct 30.8 L MCV 73.2 L MCH 22.5 L MCHC 30.8 L RDW 15.6 Plt Count 102 L MPV 9.2 Absolute Neuts (auto) 11.2 H Neutrophils % 93.8 H Neutrophils % (Manual) 86.1 H Band Neutrophils % 2.0 Lymphocytes % 3.3 L D Lymphocytes % (Manual) 4.0 L Monocytes % 2.7 L Monocytes % (Manual) 8 D Eosinophils % 0.0 Eosinophils % (Manual) 0.0 Basophils % 0.2 Basophils % (Manual) 0.0 Myelocytes % (Man) 0 D Promyelocytes % (Man) 0 Blast Cells % (Manual) 0 Nucleated RBC % 0 Metamyelocytes 0 Hypochromia 2+ Platelet Estimate Decreased Polychromasia 1+ Poikilocytosis 0 Anisocytosis 1+ Microcytosis 1+ Macrocytosis 1+ Target Cells 2+ Problem List - Problems (1) COPD exacerbation Code(s): J44.1 - CHRONIC OBSTRUCTIVE PULMONARY DISEASE W (ACUTE) EXACERBATION (2) Shortness of breath Code(s): R06.02 - SHORTNESS OF BREATH (3) Bronchiectasis Code(s): J47.9 - BRONCHIECTASIS, UNCOMPLICATED (4) Chronic respiratory failure with hypoxia Code(s): J96.11 - CHRONIC RESPIRATORY FAILURE WITH HYPOXIA (5) Emphysema lung Code(s): J43.9 - EMPHYSEMA, UNSPECIFIED (6) Supplemental oxygen dependent Code(s): Z99.81 - DEPENDENCE ON SUPPLEMENTAL OXYGEN Assessment/Plan Acute COPD Exacerbation Chronic Hypoxic Respiratory Failure HTN - Trial of IV Medrol taper - Continue Spiriva / Symbicort - Inhaled bronchodilators PRN - O2 to keep SpO2 90% - Daliresp - DVT prophylaxis - Chest PT Dr Carty
[2018-06-08 11:37] LABS: ANISOCYTOSIS 1+; MACROCYTOSIS 0; PLATELET ESTIMATE DECREASED; TARGET CELLS 1+
--- NOTE | 2018-06-08 17:12 | PN ---
Physical Exam: SUBJECTIVE: Patient seen and examined at bedside this morning. No acute events overnight. Patient is comfortable and prefers using the commode. OBJECTIVE: Vital Signs Period Temp Pulse Resp BP Sys/Echevarria Pulse Ox Last 24 Hr 98.3 F-98.8 F 74-92 20-24 148-162/64-89 97-98 GENERAL: The patient is awake, alert, and fully oriented, on 3L NC. HEAD: Normal with no signs of trauma. EYES: PERRLA, EOMI, sclera anicteric, conjunctiva clear. ENT: Ears normal, nares patent, oropharynx clear without exudates, moist mucous membranes. NECK: Trachea midline, full range of motion, supple. LUNGS: +bilateral scattered wheezes, good air entry. HEART: Regular rate and rhythm, S1, S2 without murmur, rub or gallop. ABDOMEN: Soft, nontender, nondistended, normoactive bowel sounds. EXTREMITIES: 2+ pulses, warm, well-perfused, no edema. NEUROLOGICAL: Cranial nerves II through XII grossly intact. Normal speech, normal gait. PSYCH: Normal mood, normal affect. SKIN: Warm, dry, normal turgor, no rashes or lesions noted Laboratory Results - last 24 hr 06/08/18 09:00 WBC 11.9 H RBC 4.21 Hgb 9.5 L Hct 30.8 L MCV 73.2 L MCH 22.5 L MCHC 30.8 L RDW 15.6 Plt Count 102 L MPV 9.2 Absolute Neuts (auto) 11.2 H Neutrophils % 93.8 H Neutrophils % (Manual) 88.2 H Band Neutrophils % 0.0 Lymphocytes % 3.3 L D Lymphocytes % (Manual) 5.9 L D Monocytes % 2.7 L Monocytes % (Manual) 4 Eosinophils % 0.0 Eosinophils % (Manual) 0.0 Basophils % 0.2 Basophils % (Manual) 0.0 Myelocytes % (Man) 1 D Promyelocytes % (Man) 0 Blast Cells % (Manual) 0 Nucleated RBC % 0 Metamyelocytes 1 D Hypochromia 2+ Platelet Estimate Decreased Polychromasia 0 Poikilocytosis 1+ Anisocytosis 1+ Microcytosis 1+ Macrocytosis 0 Target Cells 1+ Schistocytes 1+ Active Medications Generic Name Dose Route Start Last Admin Trade Name Freq PRN Reason Stop Dose Admin Acetaminophen 650 mg 05/30/18 20:49 06/06/18 03:43 Tylenol - PO 650 mg Q6H PRN Administration PAIN LEVEL 6-10 Albuterol Sulfate 1 amp 05/29/18 13:11 06/08/18 04:35 Ventolin 0.083% Nebulizer Soln - NEB 1 amp Q1H PRN Administration SHORT OF BREATH/WHEEZING Albuterol Sulfate 1 amp 06/05/18 12:00 06/08/18 16:54 Ventolin 0.083% Nebulizer Soln - NEB 1 amp RQID [facility]ACHARY Administration Diltiazem HCl 30 mg 05/31/18 12:00 06/08/18 11:48 Cardizem - PO 30 mg Q6HPO [facility]ACHARY Administration Enoxaparin Sodium 40 mg 06/04/18 10:00 06/08/18 10:01 Lovenox - SQ 40 mg DAILY [facility] Administration Ergocalciferol 50,000 unit 06/01/18 10:00 06/08/18 10:01 Drisdol - PO 50,000 unit Q7D@1000 ZACHARY Administration Ferrous Sulfate 325 mg 05/28/18 10:00 06/08/18 10:01 Feosol - PO 325 mg DAILY [facility] Administration Folic Acid 1 mg 05/28/18 10:00 06/08/18 10:01 Folic Acid - PO 1 mg DAILY [facility] Administration Methylprednisolone Sodium Succinate 40 mg 06/08/18 22:00 Solu-Medrol - IVPUSH BID [facility]ACHARY Montelukast Sodium 10 mg 05/31/18 22:00 06/07/18 21:51 Singulair - PO 10 mg HS [facility]ACHARY Administration Pantoprazole Sodium 20 mg 05/30/18 10:00 06/08/18 10:00 Protonix - PO 20 mg DAILY [facility] Administration Polyethylene Glycol 17 gm 05/31/18 14:40 Miralax (For Daily Use) - PO DAILY PRN CONSTIPATION Roflumilast 500 mcg 05/30/18 13:00 06/08/18 10:01 Daliresp - PO 500 mcg DAILY [facility] Administration Tiotropium [place] 2 puff 06/05/18 12:00 06/08/18 10:02 Spiriva Respimat IH 2 puff DAILY ZACHARY Administration Imaging: Chest X-Ray (05/27/18): No significant interval change. Persistent bilateral increased interstitial markings. Differential diagnosis again includes chronic interstitial lung disease. Cannot rule out noncardiogenic mild pulmonary venous congestion or interstitial infiltrates. Chest X-ray (05/30/18): No acute pathology or significant change. Chest CT scan without contrast (05/31/18): Moderately severe COPD with extensive bilateral bronchiectasis. These findings are unchanged since a previous study of 02/07/18. There is no evidence of acute pathology within the chest. CXR (06/06/18) 2 views of the some minimal degenerative changes with wedging. The soft tissues are intact. The chest reveal a normal-sized heart, normal knob and normal genesis. There are some coarse lung changes. There may be some linear atelectasis/density by the left heart border. Since the prior study 05/30/18, the density by the left heart border has become apparent. This most likely represents a focal area of atelectasis. ASSESSMENT/PLAN: Patient is a 58 year old female who presented with shortness of breath and found to be in COPD exacerbation. Patient admitted for further monitoring and management. #Acute on Chronic COPD exacerbation : - may be 2/2 CAP vs inhaled chemicals (house paint) - Continue Azithromycin 250mg daily - Trial of oral prednisone done last Wednesday, patient became dyspneic upon ambulating and desaturated. She was put back to IV medrol q8h. - Patient seemed tachypneic this morning. She reports dyspnea on exertion when she goes to the bathroom, and improved with rest. - Recommend bedrest. Commode ordered. - Pulmonary Consult. Recs appreciated: - Icrease solu-medrol dose 40mg to q12h - Duonebs QID - Albuterol PRN - Add Daliresp (500mcg daily) - Symbicort not given. Pt reports allergy to symbicort. - Continue O2 at 3L - pt uses 3L at home - Keep O2 satn >90% - Chest PT BID - Pt has frequent exacerbations, may need to be on chronic low dose steroids at home. #Atypical Chest Pain: midsternal tenderness on palpation, positional - Likely musculoskeletal due to COPD Exac - Troponins negative x1, unlikely cardiac in nature - Tylenol PRN for pain. - Lidocaine patch given which provided significant relief #Microcytic Anemia - likely due to RUBY - now at baseline Hgb - Fe Panel previously showed low Fe, low Fesat, low-normal ferritin - Continue Fe supplements #Hypertension - Cardizem 30mg q6h - Monitor BP closely #FEN - not on fluids - lytes wnl - Sodium controlled diet #Prophylaxis - Lovenox 40mg sq daily #Disposition - Med/Surg Visit type - Emergency Visit Emergency Visit: Yes ED Registration Date: 05/27/18 Care time: The patient presented to the Emergency Department on the above date and was hospitalized for further evaluation of their emergent condition. - New Patient This patient is new to me today: Yes Date on this admission: 06/08/18 - Critical Care Critical Care patient: No
[2018-06-08] MEDS: MONTELUKAST NA 10 MG TABLET PO SCH (21:42)
[2018-06-09] MEDS: ALBUTEROL SO4 0.083% IH SOL 2.5 MG/3 ML VIAL.NEB. NEB PRN ×4 (00:40→22:54)
[2018-06-09] MEDS: dilTIAZem HCL 30 MG TABLET (FP) PO SCH ×3 (05:21→18:29)
[2018-06-09] MEDS: ALBUTEROL SO4 0.083% IH SOL 2.5 MG/3 ML VIAL.NEB. NEB SCH ×4 (08:53→19:30)
[2018-06-09] MEDS ORDERED: PT OWN MED DRAWER 7, Y5N ONE (11:13)
--- NOTE | 2018-06-09 12:20 | PN ---
Progress Note, Physician History of Present Illness: pulmonary alert,dyspneic with exertion, congested - Current Medication List Current Medications: Active Medications Acetaminophen (Tylenol -) 650 mg PO Q6H PRN PRN Reason: PAIN LEVEL 6-10 Last Admin: 06/06/18 03:43 Dose: 650 mg Albuterol Sulfate (Ventolin 0.083% Nebulizer Soln -) 1 amp NEB Q1H PRN PRN Reason: SHORT OF BREATH/WHEEZING Last Admin: 06/09/18 04:30 Dose: 1 amp Albuterol Sulfate (Ventolin 0.083% Nebulizer Soln -) 1 amp NEB RQID [facility] Last Admin: 06/09/18 08:53 Dose: 1 amp Diltiazem HCl (Cardizem -) 30 mg PO Q6HPO [facility] Last Admin: 06/09/18 05:21 Dose: 30 mg Enoxaparin Sodium (Lovenox -) 40 mg SQ DAILY [facility] Last Admin: 06/08/18 10:01 Dose: 40 mg Ergocalciferol (Drisdol -) 50,000 unit PO Q7D@1000 [facility] Last Admin: 06/08/18 10:01 Dose: 50,000 unit Ferrous Sulfate (Feosol -) 325 mg PO DAILY [facility] Last Admin: 06/08/18 10:01 Dose: 325 mg Folic Acid (Folic Acid -) 1 mg PO DAILY [facility] Last Admin: 06/08/18 10:01 Dose: 1 mg Methylprednisolone Sodium Succinate (Solu-Medrol -) 40 mg IVPUSH BID [facility] Last Admin: 06/08/18 21:42 Dose: 40 mg Montelukast Sodium (Singulair -) 10 mg PO HS [facility] Last Admin: 06/08/18 21:42 Dose: 10 mg Pantoprazole Sodium (Protonix -) 20 mg PO DAILY [facility] Last Admin: 06/08/18 10:00 Dose: 20 mg Polyethylene Glycol (Miralax (For Daily Use) -) 17 gm PO DAILY PRN PRN Reason: CONSTIPATION Roflumilast (Daliresp -) 500 mcg PO DAILY [facility] Last Admin: 06/08/18 10:01 Dose: 500 mcg Tiotropium [place] (Spiriva Respimat) 2 puff IH DAILY [facility] Last Admin: 06/08/18 10:02 Dose: 2 puff - Objective Vital Signs: Vital Signs Temperature 98.4 F 06/09/18 06:00 Pulse Rate 86 06/09/18 06:00 Respiratory Rate 20 06/09/18 06:00 Blood Pressure 154/76 06/09/18 06:00 O2 Sat by Pulse Oximetry (%) 99 06/08/18 21:00 Constitutional: Yes: Well Nourished, Calm Eyes: Yes: WNL HENT: Yes: WNL Neck: Yes: WNL Cardiovascular: Yes: Regular Rate and Rhythm, S1, S2 Respiratory: Yes: Rhonchi, Wheezes (bilateral wheezes and rhonchi) Gastrointestinal: Yes: Normal Bowel Sounds, Soft Extremities: Yes: WNL Edema: No Labs: Problem List - Problems (1) COPD exacerbation Code(s): J44.1 - CHRONIC OBSTRUCTIVE PULMONARY DISEASE W (ACUTE) EXACERBATION (2) Shortness of breath Code(s): R06.02 - SHORTNESS OF BREATH (3) Bronchiectasis Code(s): J47.9 - BRONCHIECTASIS, UNCOMPLICATED (4) Chronic respiratory failure with hypoxia Code(s): J96.11 - CHRONIC RESPIRATORY FAILURE WITH HYPOXIA (5) Emphysema lung Code(s): J43.9 - EMPHYSEMA, UNSPECIFIED (6) Supplemental oxygen dependent Code(s): Z99.81 - DEPENDENCE ON SUPPLEMENTAL OXYGEN Assessment/Plan A/P Acute COPD Exacerbation Acute ON Chronic Hypoxic/Hypercapneic Respiratory Failure HTN - medrol same dose - inhaled bronchodilators standing and PRN - O2 to keep SpO2 90% - daliresp - pt with frequent exacerbations, may need to be on chronic low dose steroids - DVT prophylaxis - abg - add zithromax 250mg po daily as anti-inflammatory - pulmonary rehab post discharge DR SMITH
[2018-06-09] MEDS: PANTOPRAZOLE 20 MG TABLET (FP) PO SCH (12:24)
[2018-06-09] MEDS: FERROUS SO4 325 MG TABLET (FP) PO SCH (12:24)
[2018-06-09] MEDS: ENOXAPARIN NA (PORCINE) 40 MG/0.4 ML DISP.SYRIN SQ SCH (12:25)
[2018-06-09] MEDS: FOLIC ACID 1 MG TABLET (FP) PO SCH (12:25)
[2018-06-09] MEDS: methylPREDNISolone NA SUCC 40 MG/1 ML VIAL IVPUSH SCH ×2 (12:25→21:55)
[2018-06-09] MEDS: ROFLUMILAST 500 MCG TABLET PO SCH (12:25)
[2018-06-09] MEDS: TIOTROPIUM BROMIDE 2.5 MCG (SPIRIVA) RESPIMAT INHALER IH SCH (12:26)
[2018-06-09 14:20] LABS: ARTERIAL BLD GAS O2 SATURATION 98.8 % (90-98.9); ARTERIAL BLOOD GAS BASE EXCESS 10.4 meq/l (-2-2); ARTERIAL BLOOD GAS pH 7.38 (7.35-7.45)
[2018-06-09 14:22] LABS: ALLENS TEST POSITIVE
--- NOTE | 2018-06-09 16:59 | PN ---
Physical Exam: SUBJECTIVE: Patient seen and examined at bedside this morning. No acute events overnight. Patient still has dyspnea on exertion. OBJECTIVE: Vital Signs Period Temp Pulse Resp BP Sys/Echevarria Pulse Ox Last 24 Hr 98.1 F-98.6 F 83-89 20-24 142-160/69-96 99 GENERAL: The patient is awake, alert, and fully oriented, on 3L NC. HEAD: Normal with no signs of trauma. EYES: PERRLA, EOMI, sclera anicteric, conjunctiva clear. ENT: Ears normal, nares patent, oropharynx clear without exudates, moist mucous membranes. NECK: Trachea midline, full range of motion, supple. LUNGS: +bilateral scattered wheezes, good air entry. HEART: Regular rate and rhythm, S1, S2 without murmur, rub or gallop. ABDOMEN: Soft, nontender, nondistended, normoactive bowel sounds. EXTREMITIES: 2+ pulses, warm, well-perfused, no edema. NEUROLOGICAL: Cranial nerves II through XII grossly intact. Normal speech, normal gait. PSYCH: Normal mood, normal affect. SKIN: Warm, dry, normal turgor, no rashes or lesions noted Laboratory Results - last 24 hr 06/09/18 13:41 Anticoagulation Therapy No Result Required. Puncture Site Left radial ABG pH 7.38 ABG pCO2 at Pt Temp 64.0 H* ABG pO2 at Pt Temp 115.0 H D ABG HCO3 37.0 H ABG O2 Sat (Measured) 98.8 ABG O2 Content 13.6 L ABG Base Excess 10.4 H Timmy Test Positive O2 Delivery Device No Result Required. Oxygen Flow Rate N/c 4lpm Vent Mode No Result Required. Vent Rate No Result Required. Mechanical Rate No Result Required. Pressure Support Vent No Result Required. Active Medications Generic Name Dose Route Start Last Admin Trade Name Freq PRN Reason Stop Dose Admin Acetaminophen 650 mg 05/30/18 20:49 06/06/18 03:43 Tylenol - PO 650 mg Q6H PRN Administration PAIN LEVEL 6-10 Albuterol Sulfate 1 amp 05/29/18 13:11 06/09/18 13:20 Ventolin 0.083% Nebulizer Soln - NEB 1 amp Q1H PRN Administration SHORT OF BREATH/WHEEZING Albuterol Sulfate 1 amp 06/05/18 12:00 06/09/18 11:15 Ventolin 0.083% Nebulizer Soln - NEB 1 amp RQID ZACHARY Administration Azithromycin 250 mg 06/09/18 12:30 Zithromax - PO DAILY [facility] Diltiazem HCl 30 mg 05/31/18 12:00 06/09/18 12:24 Cardizem - PO 30 mg Q6HPO [facility] Administration Enoxaparin Sodium 40 mg 06/04/18 10:00 06/09/18 12:25 Lovenox - SQ 40 mg DAILY [facility] Administration Ergocalciferol 50,000 unit 06/01/18 10:00 06/08/18 10:01 Drisdol - PO 50,000 unit Q7D@1000 [facility] Administration Ferrous Sulfate 325 mg 05/28/18 10:00 06/09/18 12:24 Feosol - PO 325 mg DAILY [facility] Administration Folic Acid 1 mg 05/28/18 10:00 06/09/18 12:25 Folic Acid - PO 1 mg DAILY [facility] Administration Methylprednisolone Sodium Succinate 40 mg 06/08/18 22:00 06/09/18 12:25 Solu-Medrol - IVPUSH 40 mg BID [facility] Administration Montelukast Sodium 10 mg 05/31/18 22:00 06/08/18 21:42 Singulair - PO 10 mg HS [facility] Administration Pantoprazole Sodium 20 mg 05/30/18 10:00 06/09/18 12:24 Protonix - PO 20 mg DAILY [facility] Administration Polyethylene Glycol 17 gm 05/31/18 14:40 Miralax (For Daily Use) - PO DAILY PRN CONSTIPATION Roflumilast 500 mcg 05/30/18 13:00 06/09/18 12:25 Daliresp - PO 500 mcg DAILY [facility] Administration Tiotropium [place] 2 puff 06/05/18 12:00 06/09/18 12:26 Spiriva Respimat IH 2 puff DAILY [facility]ARY Administration Imaging: Chest X-Ray (05/27/18): No significant interval change. Persistent bilateral increased interstitial markings. Differential diagnosis again includes chronic interstitial lung disease. Cannot rule out noncardiogenic mild pulmonary venous congestion or interstitial infiltrates. Chest X-ray (05/30/18): No acute pathology or significant change. Chest CT scan without contrast (05/31/18): Moderately severe COPD with extensive bilateral bronchiectasis. These findings are unchanged since a previous study of 02/07/18. There is no evidence of acute pathology within the chest. CXR (06/06/18) 2 views of the some minimal degenerative changes with wedging. The soft tissues are intact. The chest reveal a normal-sized heart, normal knob and normal genesis. There are some coarse lung changes. There may be some linear atelectasis/density by the left heart border. Since the prior study 05/30/18, the density by the left heart border has become apparent. This most likely represents a focal area of atelectasis. ASSESSMENT/PLAN: Patient is a 58 year old female who presented with shortness of breath and found to be in COPD exacerbation. Patient admitted for further monitoring and management. #Acute on Chronic COPD exacerbation : - may be 2/2 CAP vs inhaled chemicals (house paint) - Continue Azithromycin 250mg daily for anti-inflammation - Trial of oral prednisone done last Wednesday, patient became dyspneic upon ambulating and desaturated. She was put back to IV medrol q8h. - Patient seemed tachypneic this morning. She reports dyspnea on exertion when she goes to the bathroom, and improved with rest. - Recommend bedrest. Commode ordered. - Pulmonary Consult. Recs appreciated: - Continue solu-medrol dose 40mg to q12h - Duonebs QID - Albuterol PRN - Add Daliresp (500mcg daily) - Symbicort not given. Pt reports allergy to symbicort. - Continue O2 at 3L - pt uses 3L at home - Keep O2 satn >90% - Chest PT BID - Pt has frequent exacerbations, may need to be on chronic low dose steroids at home. #Atypical Chest Pain: midsternal tenderness on palpation, positional - Likely musculoskeletal due to COPD Exac - Troponins negative x1, unlikely cardiac in nature - Tylenol PRN for pain. - Lidocaine patch given which provided significant relief #Microcytic Anemia - likely due to RUBY - now at baseline Hgb - Fe Panel previously showed low Fe, low Fesat, low-normal ferritin - Continue Fe supplements #Hypertension - Cardizem 30mg q6h - Monitor BP closely #FEN - not on fluids - lytes wnl - Sodium controlled diet #Prophylaxis - Lovenox 40mg sq daily #Disposition - Med/Surg - For discharge to Pulmo rehab once improved Visit type - Emergency Visit Emergency Visit: Yes ED Registration Date: 05/27/18 Care time: The patient presented to the Emergency Department on the above date and was hospitalized for further evaluation of their emergent condition. - New Patient This patient is new to me today: Yes Date on this admission: 06/09/18 - Critical Care Critical Care patient: No
--- NOTE | 2018-06-09 17:10 | PN ---
Teaching Attending Note Name of Resident: Babs Flores ATTENDING PHYSICIAN STATEMENT I saw and evaluated the patient. I reviewed the resident's note and discussed the case with the resident. I agree with the resident's findings and plan as documented. SUBJECTIVE:mild improvement. can not walk past a few feet without dyspnea. denies Cp, fever, chlls, N/V/C/D OBJECTIVE: Last Vital Signs Temp Pulse Resp BP Pulse Ox 98.6 F 89 23 158/96 99 06/09/18 13:27 06/09/18 13:27 06/09/18 13:27 06/09/18 13:27 06/08/18 21:00 General NAD CV S1 S2 RRR Lungs some mild expiratory wheezing. poor inspiratory effort ASSESSMENT AND PLAN: 58yo F with PMH HTn, COPD on home O2 (3L NC) and anemia presented with SOB and cough 1. Acute on chronic COPD exacerbation- likely precipitated by harsh chemical smells. steroids titrated down to BID yesterday. would keep the same today. check ABG to evaluate if candidate for oxygenation support. cont inhalers and nebs. Pulmonary on board. Pt is agreeable to pulmonary rehab at this time. has done it in the past with improvement. 2. HTN urgency- likely exacerbated by struggle to breathe. improved. will monitor 3. RAOUL- likely induced by HTN episode. now resolved avoid nephrotoxic agents 4. Normocytic anemia- was likely dehydrated on presentation. now Hgb at baseline. no indication for txn at this time 5. DVT ppx- hep sq
[2018-06-09] MEDS: MONTELUKAST NA 10 MG TABLET PO SCH (21:55)
[2018-06-09] MEDS: AZITHROMYCIN 250 MG TABLET PO SCH (21:55)
[2018-06-10] MEDS: dilTIAZem HCL 30 MG TABLET (FP) PO SCH ×5 (00:12→23:32)
[2018-06-10] MEDS: ACETAMINOPHEN 325 MG TABLET (FP) PO PRN ×2 (02:06→19:08)
[2018-06-10] MEDS: ALBUTEROL SO4 0.083% IH SOL 2.5 MG/3 ML VIAL.NEB. NEB PRN ×5 (02:46→23:35)
[2018-06-10] MEDS ORDERED: KETOROLAC TROMETHAMINE 10 MG TABLET PO ONE (02:57)
[2018-06-10 07:08] LABS: ARTERIAL BLD GAS O2 SATURATION 95.3 % (90-98.9); ARTERIAL BLOOD GAS BASE EXCESS 8.2 meq/l (-2-2); ARTERIAL BLOOD GAS PO2 78.4 mmHg (80-100); ARTERIAL BLOOD GAS pH 7.34 (7.35-7.45)
[2018-06-10 07:09] LABS: ALLENS TEST POSITIVE
[2018-06-10 07:10] LABS: ARTERIAL BLOOD GAS PCO2 67.7 mmHg (35-45)
[2018-06-10] MEDS ORDERED: methylPREDNISolone NA SUCC 40 MG/1 ML VIAL IVPUSH ONE (07:16)
[2018-06-10] MEDS: ALBUTEROL SO4 0.083% IH SOL 2.5 MG/3 ML VIAL.NEB. NEB SCH (07:25)
[2018-06-10 08:01] LABS: BASO % 0.6 % (0-2.0); HEMATOCRIT 37.2 % (32.4-45.2); LYMPH % 1.4 % (8-40); MCH 21.6 pg (25.7-33.7); MCHC 29.4 g/dl (32.0-36.0); MEAN CELL VOLUME 73.3 fl (80-96); MEAN PLT VOLUME 9.3 fl (7.5-11.1); MONO % 2.9 % (3.8-10.2); NEUT % 95.1 % (42.8-82.8); PLATELET COUNT 123 K/MM3 (134-434); RBC 5.08 M/mm3 (3.60-5.2); RDW 15.8 % (11.6-15.6)
[2018-06-10 08:13] LABS: WHITE BLOOD COUNT 56.5 K/mm3 (4.0-10.0)
[2018-06-10 09:06] LABS: ALBUMIN 2.6 g/dl (3.4-5.0); ALK PHOS 85 U/L (45-117); ANION GAP 8 MMOL/L (8-16); BILIRUBIN,TOTAL 0.4 mg/dL (0.2-1); BLOOD UREA NITROGEN 35 mg/dL (7-18); CALCIUM 9.1 mg/dL (8.5-10.1); CHLORIDE 104 mmol/L (98-107); CO2 34 mmol/L (21-32); CREATININE 0.9 mg/dL (0.55-1.3); GLUCOSE,RANDOM 113 mg/dL (74-106); PHOSPHOROUS 2.7 mg/dL (2.5-4.9); POTASSIUM 4.3 mmol/L (3.5-5.1); SGOT/AST 27 U/L (15-37); SGPT/ALT 75 U/L (13-61); SODIUM 146 mmol/L (136-145)
[2018-06-10] MEDS ORDERED: PIPERACILLIN/TAZOBACTAM 3.375 GM VIAL IVPB ONE ×2 (09:11→17:48)
[2018-06-10] MEDS ORDERED: PT OWN MED DRAWER 7, Y5N ONE ×3 (09:11→18:47)
[2018-06-10] MEDS ORDERED: DEXTROSE 5%-WATER - 50 ML IVPB ONE ×2 (09:12→17:49)
[2018-06-10] MEDS: PANTOPRAZOLE 20 MG TABLET (FP) PO SCH (09:30)
[2018-06-10] MEDS: AZITHROMYCIN 250 MG TABLET PO SCH (09:30)
[2018-06-10] MEDS: FOLIC ACID 1 MG TABLET (FP) PO SCH (09:30)
[2018-06-10] MEDS: methylPREDNISolone NA SUCC 40 MG/1 ML VIAL IVPUSH SCH ×2 (09:30→21:31)
[2018-06-10] MEDS: ROFLUMILAST 500 MCG TABLET PO SCH (09:30)
[2018-06-10] MEDS: TIOTROPIUM BROMIDE 2.5 MCG (SPIRIVA) RESPIMAT INHALER IH SCH (09:31)
[2018-06-10] MEDS: ENOXAPARIN NA (PORCINE) 40 MG/0.4 ML DISP.SYRIN SQ SCH (09:31)
[2018-06-10] MEDS: FERROUS SO4 325 MG TABLET (FP) PO SCH (09:31)
[2018-06-10] MEDS ORDERED: PIPERACILLIN/TAZOB 3.375 GM 3.375 GM in DEXTROSE 5%-WATER - 50 ML IVPB SCH (10:00)
[2018-06-10] MEDS: SODIUM CHLORIDE 1,000 ML IV SCH (10:07)
[2018-06-10 11:39] LABS: ANISOCYTOSIS 1+; MACROCYTOSIS 0; PLATELET ESTIMATE DECREASED
--- NOTE | 2018-06-10 12:09 | PN ---
Teaching Attending Note Name of Resident: Babs Flores ATTENDING PHYSICIAN STATEMENT I saw and evaluated the patient. I reviewed the resident's note and discussed the case with the resident. I agree with the resident's findings and plan as documented. SUBJECTIVE:respiratory distress started at 0500, was given nebs, ABG, EKG and CXR were done showing sinus tachycardia and new CHIKI consolidation. Medrol 40mg IVP x1, levaquin and zosyn and started on bipap. pt is now clinically improved but remains mildly tachypnic. states that she was awaken out of her sleep with difficulty breathing with no precipitating factors. denies Cp, fever, chills, night sweat, hemoptysis OBJECTIVE: Last Vital Signs Temp Pulse Resp BP Pulse Ox 97.5 F L 152 H 25 H 101/77 100 06/10/18 10:22 06/10/18 10:22 06/10/18 10:22 06/10/18 10:06/10/18 07:26 General NAD CV S1 S2 RRR Lungs diffuse wheezing decreased breath sound L upper lung field. poor inspiratory effort ASSESSMENT AND PLAN: 58yo F with PMH HTn, COPD on home O2 (3L NC) and anemia presented with SOB and cough 1. Acute on chronic hypercapnic respiratory distress- likely due to HCAP. CO2 trending up. now on bipap with some clinical improvement. will repeat ABG in 1 Hour and monitor respiratory status closely. started on levaquin and zosyn. ID consult. will f/u 2. Acute on chronic COPD exacerbation- likely precipitated by harsh chemical smells. now worsening with developing PNA. medrol 40mg extra dose given this AM with some improvement. will re-evaluate to see if she will need increased steroid dosing. pulmonary rehab when medically optimized 3. HTN urgency- episode this Am with acute resp distress. extra dose given. will monitor for now 4. RAOUL- likely induced by HTN episode. now resolved avoid nephrotoxic agents 5. Normocytic anemia- was likely dehydrated on presentation. now Hgb at baseline. no indication for txn at this time 6. DVT ppx- hep sq 7. spoke with patient with son present at bedside in detail about concerns and possible need for transfer to the ICU. all questions answered. verbalized understanding and agreement. Low threshold for intubation and transfer to the ICU. will notify pulmonary team The care of this patient involved high complexity decision making to prevent further life threatening deterioration of the patient's condition and/or to evaluate & treat vital organ system(s) failure or risk of failure. 40 minutes
--- NOTE | 2018-06-10 12:10 | EKG ---
Test Reason : Blood Pressure : / mmHG Vent. Rate : 159 BPM Atrial Rate : 159 BPM P-R Int : 128 ms QRS Dur : 060 ms QT Int : 262 ms P-R-T Axes : 084 076 078 degrees QTc Int : 426 ms POOR DATA QUALITY, INTERPRETATION MAY BE ADVERSELY AFFECTED SINUS TACHYCARDIA OTHERWISE NORMAL ECG WHEN COMPARED WITH ECG OF 31-MAY-2018 10:09, VENT. RATE HAS INCREASED BY 72 BPM Confirmed by INNA HIRSCH MD ([id number]) on 06/10/2018 12:10:10 PM Referred By: Confirmed By:INNA HIRSCH MD
--- NOTE | 2018-06-10 12:30 | PN ---
Progress Note, Physician History of Present Illness: pulmonary developed increased resp distress earlier placed on bipap with some improvement. chest x-ray new CHIKI consolidation - Current Medication List Current Medications: Active Medications Acetaminophen (Tylenol -) 650 mg PO Q6H PRN PRN Reason: PAIN LEVEL 6-10 Last Admin: 06/10/18 02:06 Dose: 650 mg Albuterol Sulfate (Ventolin 0.083% Nebulizer Soln -) 1 amp NEB Q1H PRN PRN Reason: SHORT OF BREATH/WHEEZING Last Admin: 06/10/18 09:47 Dose: 1 amp Diltiazem HCl (Cardizem -) 30 mg PO Q6HPO ZACHARY Last Admin: 06/10/18 05:39 Dose: 30 mg Enoxaparin Sodium (Lovenox -) 40 mg SQ DAILY ZACHARY Last Admin: 06/10/18 09:31 Dose: 40 mg Ergocalciferol (Drisdol -) 50,000 unit PO Q7D@1000 ZACHARY Last Admin: 06/08/18 10:01 Dose: 50,000 unit Ferrous Sulfate (Feosol -) 325 mg PO DAILY ZACHARY Last Admin: 06/10/18 09:31 Dose: 325 mg Folic Acid (Folic Acid -) 1 mg PO DAILY ZACHARY Last Admin: 06/10/18 09:30 Dose: 1 mg Levofloxacin (Levaquin 750 Mg Premixed Ivpb -) 750 mg in 150 mls @ 100 mls/hr IVPB DAILY ZACHARY; Protocol Last Admin: 06/10/18 09:29 Dose: 100 mls/hr Piperacillin Sod/Tazobactam (Sod 3.375 gm/ Dextrose) 50 mls @ 100 mls/hr IVPB Q8H-IV ZACHARY; Protocol Piperacillin Sod/Tazobactam (Sod 3.375 gm/ Dextrose) 50 mls @ 100 mls/hr IVPB Q8H-IV ZACHARY Stop: 06/11/18 02:29 Sodium Chloride (Normal Saline -) 1,000 mls @ 75 mls/hr IV ASDIR ZACHARY Last Admin: 06/10/18 10:07 Dose: 75 mls/hr Methylprednisolone Sodium Succinate (Solu-Medrol -) 40 mg IVPUSH BID ZACHARY Last Admin: 06/10/18 09:30 Dose: 40 mg Montelukast Sodium (Singulair -) 10 mg PO HS [facility] Last Admin: 06/09/18 21:55 Dose: 10 mg Pantoprazole Sodium (Protonix -) 20 mg PO DAILY [facility] Last Admin: 06/10/18 09:30 Dose: 20 mg Polyethylene Glycol (Miralax (For Daily Use) -) 17 gm PO DAILY PRN PRN Reason: CONSTIPATION Roflumilast (Daliresp -) 500 mcg PO DAILY [facility] Last Admin: 06/10/18 09:30 Dose: 500 mcg Tiotropium [place] (Spiriva Respimat) 2 puff IH DAILY [facility] Last Admin: 06/10/18 09:31 Dose: 2 puff - Objective Vital Signs: Vital Signs Temperature 97.5 F L 06/10/18 10:22 Pulse Rate 152 H 06/10/18 10:22 Respiratory Rate 25 H 06/10/18 10:22 Blood Pressure 101/77 06/10/18 10:22 O2 Sat by Pulse Oximetry (%) 100 06/10/18 12:16 Constitutional: Yes: Well Nourished, Mild Distress Eyes: Yes: WNL HENT: Yes: WNL Neck: Yes: WNL Cardiovascular: Yes: Regular Rate and Rhythm, S1, S2 Respiratory: Yes: Rhonchi (RICHA RHONCHI) Gastrointestinal: Yes: Normal Bowel Sounds, Soft Extremities: Yes: WNL Edema: No Labs: CBC, BMP 06/10/18 07:33 06/10/18 07:33 Laboratory Tests 06/10/18 06:29 ABG pH 7.34 L ABG pCO2 at Pt Temp 67.7 H* ABG pO2 at Pt Temp 78.4 L D ABG HCO3 35.6 H ABG O2 Sat (Measured) 95.3 O2 Delivery Device Ventimask Oxygen Flow Rate 40% - ....Imaging Chest X-ray: Report Reviewed, Image Reviewed Problem List - Problems (1) COPD exacerbation Code(s): J44.1 - CHRONIC OBSTRUCTIVE PULMONARY DISEASE W (ACUTE) EXACERBATION (2) Shortness of breath Code(s): R06.02 - SHORTNESS OF BREATH (3) Bronchiectasis Code(s): J47.9 - BRONCHIECTASIS, UNCOMPLICATED (4) Chronic respiratory failure with hypoxia Code(s): J96.11 - CHRONIC RESPIRATORY FAILURE WITH HYPOXIA (5) Emphysema lung Code(s): J43.9 - EMPHYSEMA, UNSPECIFIED (6) Supplemental oxygen dependent Code(s): Z99.81 - DEPENDENCE ON SUPPLEMENTAL OXYGEN Assessment/Plan A/P Acute COPD Exacerbation Acute ON Chronic Hypoxic/Hypercapneic Respiratory Failure CHIKI pneumonia HTN - medrol - abx - inhaled bronchodilators standing and PRN - O2 to keep SpO2 90% - daliresp - DVT prophylaxis - add zithromax 250mg po daily as anti-inflammatory - f/u abgs DR SMITH
[2018-06-10 12:33] LABS: ARTERIAL BLD GAS O2 SATURATION 99.8 % (90-98.9); ARTERIAL BLOOD GAS BASE EXCESS 8.1 meq/l (-2-2); ARTERIAL BLOOD GAS PCO2 54.2 mmHg (35-45); ARTERIAL BLOOD GAS pH 7.41 (7.35-7.45)
[2018-06-10 12:36] LABS: ALLENS TEST POSITIVE
--- NOTE | 2018-06-10 16:44 | PN ---
Physical Exam: SUBJECTIVE: Patient seen and examined at bedside this morning. At around 5:30am , patient was noted to be in respiratory distress. She received nebs x2, and remained to be in distress, with BP at 180s/90s, tachycardic at 170s and tachypneic, O2 sat decreasing to low 90s. She was placed initially on 40% venti mask. EKG, CXR, ABG, Trops were done. EKG showed sinus tachycardia. CXR showed new pulmonary consolidation medial aspect of the left upper lung zone obscuring aortic arch. ABG on venti mask revealed respiratory acidosis. Trop I at 0.04. Patient denies chest pain, palpitations, fever, chills. OBJECTIVE: Vital Signs Period Temp Pulse Resp BP Sys/Echevarria Pulse Ox Last 24 Hr 97.5 F-99.0 F 83-165 20-26 89-163/54-97 100-100 GENERAL: The patient is awake, alert, and fully oriented, in acute distress. HEAD: Normal with no signs of trauma. EYES: PERRLA, EOMI, sclera anicteric, conjunctiva clear. ENT: Ears normal, nares patent, oropharynx clear without exudates, moist mucous membranes. NECK: Trachea midline, full range of motion, supple. LUNGS: + diffuse rhonchi and wheezing bilaterally. HEART: Tachycardic, normal S1, S2 without murmur, rub or gallop. ABDOMEN: Soft, nontender, nondistended, normoactive bowel sounds. EXTREMITIES: 2+ pulses, warm, well-perfused, no edema. NEUROLOGICAL: Cranial nerves II through XII grossly intact. Normal speech, normal gait. PSYCH: Normal mood, normal affect. SKIN: Warm, dry, normal turgor, no rashes or lesions noted Laboratory Results - last 24 hr 06/10/18 06/10/18 06/10/18 06:25 06:29 07:33 WBC 56.5 H* RBC 5.08 Hgb 11.0 Hct 37.2 D MCV 73.3 L MCH 21.6 L MCHC 29.4 L RDW 15.8 H Plt Count 123 L D MPV 9.3 Absolute Neuts (auto) 53.7 H Neutrophils % 95.1 H Neutrophils % (Manual) 91.0 H Band Neutrophils % 2.0 Lymphocytes % 1.4 L D Lymphocytes % (Manual) 1.0 L D Monocytes % 2.9 L Monocytes % (Manual) 4 Eosinophils % 0.0 Eosinophils % (Manual) 0.0 Basophils % 0.6 Basophils % (Manual) 0.0 Myelocytes % (Man) 1 Promyelocytes % (Man) 0 Blast Cells % (Manual) 0 Nucleated RBC % 0 Metamyelocytes 1 Hypochromia 1+ Platelet Estimate Decreased Polychromasia 1+ Poikilocytosis 0 Anisocytosis 1+ Microcytosis 0 Macrocytosis 0 Puncture Site Right radial ABG pH 7.34 L ABG pCO2 at Pt Temp 67.7 H* ABG pO2 at Pt Temp 78.4 L D ABG HCO3 35.6 H ABG O2 Sat (Measured) 95.3 ABG O2 Content 15.1 ABG Base Excess 8.2 H Timmy Test Positive O2 Delivery Device Ventimask Oxygen Flow Rate 40% Vent Mode Vent Rate Mechanical Rate PEEP 0.0 Pressure Support Vent Sodium Potassium Chloride Carbon Dioxide Anion Gap BUN Creatinine Creat Clearance w eGFR Random Glucose Lactic Acid Calcium Phosphorus Magnesium Total Bilirubin AST ALT Alkaline Phosphatase Troponin I 0.04 Total Protein Albumin 06/10/18 06/10/18 06/10/18 07:33 07:33 12:05 WBC RBC Hgb Hct MCV MCH MCHC RDW Plt Count MPV Absolute Neuts (auto) Neutrophils % Neutrophils % (Manual) Band Neutrophils % Lymphocytes % Lymphocytes % (Manual) Monocytes % Monocytes % (Manual) Eosinophils % Eosinophils % (Manual) Basophils % Basophils % (Manual) Myelocytes % (Man) Promyelocytes % (Man) Blast Cells % (Manual) Nucleated RBC % Metamyelocytes Hypochromia Platelet Estimate Polychromasia Poikilocytosis Anisocytosis Microcytosis Macrocytosis Puncture Site Right radial ABG pH 7.41 ABG pCO2 at Pt Temp 54.2 H ABG pO2 at Pt Temp 210.0 H* ABG HCO3 33.7 H ABG O2 Sat (Measured) 99.8 H* ABG O2 Content 15.0 ABG Base Excess 8.1 H Timmy Test Positive O2 Delivery Device Bipap Oxygen Flow Rate 100% Vent Mode Bipap Vent Rate 16 Mechanical Rate Yes PEEP 0.0 Pressure Support Vent 10/5 Sodium 146 H Potassium 4.3 Chloride 104 Carbon Dioxide 34 H Anion Gap 8 BUN 35 H Creatinine 0.9 Creat Clearance w eGFR > 60 Random Glucose 113 H Lactic Acid 2.2 H* Calcium 9.1 Phosphorus 2.7 Magnesium 2.0 Total Bilirubin 0.4 AST 27 ALT 75 H Alkaline Phosphatase 85 Troponin I Total Protein 6.0 L Albumin 2.6 L 06/10/18 12:45 WBC RBC Hgb Hct MCV MCH MCHC RDW Plt Count MPV Absolute Neuts (auto) Neutrophils % Neutrophils % (Manual) Band Neutrophils % Lymphocytes % Lymphocytes % (Manual) Monocytes % Monocytes % (Manual) Eosinophils % Eosinophils % (Manual) Basophils % Basophils % (Manual) Myelocytes % (Man) Promyelocytes % (Man) Blast Cells % (Manual) Nucleated RBC % Metamyelocytes Hypochromia Platelet Estimate Polychromasia Poikilocytosis Anisocytosis Microcytosis Macrocytosis Puncture Site ABG pH ABG pCO2 at Pt Temp ABG pO2 at Pt Temp ABG HCO3 ABG O2 Sat (Measured) ABG O2 Content ABG Base Excess Timmy Test O2 Delivery Device Oxygen Flow Rate Vent Mode Vent Rate Mechanical Rate PEEP Pressure Support Vent Sodium Potassium Chloride Carbon Dioxide Anion Gap BUN Creatinine Creat Clearance w eGFR Random Glucose Lactic Acid Calcium Phosphorus Magnesium Total Bilirubin AST ALT Alkaline Phosphatase Troponin I 0.10 H Total Protein Albumin Active Medications Generic Name Dose Route Start Last Admin Trade Name Freq PRN Reason Stop Dose Admin Acetaminophen 650 mg 05/30/18 20:49 06/10/18 02:06 Tylenol - PO 650 mg Q6H PRN Administration PAIN LEVEL 6-10 Albuterol Sulfate 1 amp 05/29/18 13:11 06/10/18 09:47 Ventolin 0.083% Nebulizer Soln - NEB 1 amp Q1H PRN Administration SHORT OF BREATH/WHEEZING Diltiazem HCl 30 mg 05/31/18 12:00 06/10/18 14:11 Cardizem - PO Not Given Q6HPO ZACHARY Enoxaparin Sodium 40 mg 06/04/18 10:00 06/10/18 09:31 Lovenox - SQ 40 mg DAILY ZACHARY Administration Ergocalciferol 50,000 unit 06/01/18 10:00 06/08/18 10:01 Drisdol - PO 50,000 unit Q7D@1000 ZACHARY Administration Ferrous Sulfate 325 mg 05/28/18 10:00 06/10/18 09:31 Feosol - PO 325 mg DAILY ZACHARY Administration Folic Acid 1 mg 05/28/18 10:00 06/10/18 09:30 Folic Acid - PO 1 mg DAILY ZACHARY Administration Levofloxacin 750 mg in 150 mls @ 100 mls/hr 06/10/18 10:00 06/10/18 09:29 Levaquin 750 Mg Premixed Ivpb - IVPB 100 mls/hr DAILY ZACHARY Administration Protocol Piperacillin Sod/Tazobactam 50 mls @ 100 mls/hr 06/10/18 07:45 Sod 3.375 gm/ Dextrose IVPB Q8H-IV ZACHARY Protocol Piperacillin Sod/Tazobactam 50 mls @ 100 mls/hr 06/10/18 10:00 06/10/18 14:08 Sod 3.375 gm/ Dextrose IVPB 06/11/18 02:29 100 mls/hr Q8H-IV ZACHARY Administration Sodium Chloride 1,000 mls @ 75 mls/hr 06/10/18 09:30 06/10/18 10:07 Normal Saline - IV 75 mls/hr ASDIR ZACHARY Administration Methylprednisolone Sodium Succinate 40 mg 06/08/18 22:00 06/10/18 09:30 Solu-Medrol - IVPUSH 40 mg BID ZACHARY Administration Montelukast Sodium 10 mg 05/31/18 22:00 06/09/18 21:55 Singulair - PO 10 mg HS ZACHARY Administration Pantoprazole Sodium 20 mg 05/30/18 10:00 06/10/18 09:30 Protonix - PO 20 mg DAILY ZACHARY Administration Polyethylene Glycol 17 gm 05/31/18 14:40 Miralax (For Daily Use) - PO DAILY PRN CONSTIPATION Roflumilast 500 mcg 05/30/18 13:00 06/10/18 09:30 Daliresp - PO 500 mcg DAILY ZACHARY Administration Tiotropium [place] 2 puff 06/05/18 12:00 06/10/18 09:31 Spiriva Respimat IH 2 puff DAILY ZACHARY Administration Imaging: Chest X-Ray (05/27/18): No significant interval change. Persistent bilateral increased interstitial markings. Differential diagnosis again includes chronic interstitial lung disease. Cannot rule out noncardiogenic mild pulmonary venous congestion or interstitial infiltrates. Chest X-ray (05/30/18): No acute pathology or significant change. Chest CT scan without contrast (05/31/18): Moderately severe COPD with extensive bilateral bronchiectasis. These findings are unchanged since a previous study of 02/07/18. There is no evidence of acute pathology within the chest. CXR (06/06/18) 2 views of the some minimal degenerative changes with wedging. The soft tissues are intact. The chest reveal a normal-sized heart, normal knob and normal genesis. There are some coarse lung changes. There may be some linear atelectasis/density by the left heart border. Since the prior study 05/30/18, the density by the left heart border has become apparent. This most likely represents a focal area of atelectasis. CXR (06/10/18): New pulmonary consolidation medial aspect of the left upper lung zone obscuring aortic arch. No pleural effusion, or pneumothorax seen. No evidence of vascular congestive changes. ASSESSMENT/PLAN: Patient is a 58 year old female who presented with shortness of breath and found to be in COPD exacerbation. #Hospital acquired pneumonia : Patient this morning presented with respiratory distress. She just woke up from sleep suddenly felt short of breath. BP at 180s/ 90s, tachycardic at 170s and tachypneic, O2 sat decreasing to low 90s. - EKG showed sinus tachycardia. - CXR showed new pulmonary consolidation medial aspect of the left upper lung zone obscuring aortic arch. - ABG on venti mask revealed respiratory acidosis. - Trop I at 0.04. - CBC, CMP, Lactate, Mg, Phos ordered. - WBC elevated at 56.5 Will repeat CBC. - Given 40mg IV solu-medrol once. - Given Levaquin 750mg and Zosyn 3.375g - Patient placed on Bipap. Repeat ABG showed improvement, with lower PCo2. - Repeat Trop 0.1. Will order third trop. - Patient on NPO, IV fluids given. - discontinue Azithromycin. - ID (Dr. Tao) consulted. Recommendations appreciated. - Continue Zosyn 3.375g q8h and start Vancomycin 1000mg q12h. - Repeat CBC, CMP, lactic acid. - blood cultures. #Acute on Chronic COPD exacerbation : - may be 2/2 CAP vs inhaled chemicals (house paint) - Recommend bedrest. Commode ordered. - Pulmonary Consult. Recs appreciated: - Continue solu-medrol dose 40mg to q12h - Duonebs QID - Albuterol PRN - Add Daliresp (500mcg daily) - Symbicort not given. Pt reports allergy to symbicort. - Keep O2 satn >90% - Chest PT BID - Pt has frequent exacerbations, may need to be on chronic low dose steroids at home. #Atypical Chest Pain: midsternal tenderness on palpation, positional - Likely musculoskeletal due to COPD Exac - Troponins negative x1, unlikely cardiac in nature - Tylenol PRN for pain. - Lidocaine patch given which provided significant relief #Microcytic Anemia - likely due to RUBY - now at baseline Hgb - Fe Panel previously showed low Fe, low Fesat, low-normal ferritin - Continue Fe supplements #Hypertension - Cardizem 30mg q6h - Monitor BP closely #FEN - not on fluids - lytes wnl - Sodium controlled diet #Prophylaxis - Lovenox 40mg sq daily #Disposition - Med/Surg - For discharge to Pulmo rehab once improved Visit type - Emergency Visit Emergency Visit: Yes ED Registration Date: 05/27/18 Care time: The patient presented to the Emergency Department on the above date and was hospitalized for further evaluation of their emergent condition. - New Patient This patient is new to me today: Yes Date on this admission: 06/10/18 - Critical Care Critical Care patient: No
--- NOTE | 2018-06-10 16:54 | CON.ID ---
Consult Consult Specialty:: infectious disease Referred by:: hospitalist service Reason for Consultation:: leukocytosis, pneumonia - History of Present Illness Chief Complaint: sob worsening early this am History of Present Illness: 58 year old female with copd on home oxygen admitted 05/27 for copd exacerbation, pneumonia she was treated with rocephin and zithromax from 05/27 to 06/01 and continued on po zithromax this am she became acutely sob requiring nebs and iv steroids (she has been on iv steroids since admission) repeat cxray with left hilar infiltrate (new) no vomiting currently on bipapa of note WBC is 55k and lactic acid is 2.2 from this am she is alert and able to give history it is unclear who her primary doctor is in the community she has been on 3 liters oxygen for last one walt no recent travel no sick contacts lives alone no pets - History Source History Provided By: Patient, Family Member Limitations to Obtaining History: No Limitations - Past Medical History 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 No: AFIB, CAD, CHF Pulmonary: Yes: Bronchitis, COPD, O2 Dependent, Other (bronchiectasis) Gastrointestinal: No: Ascites Hepatobiliary: Yes: Other (Fatty liver) ...LMP: 05/18/11 ...: No Psych: No: Addictions Musculoskeletal: Yes: Osteoarthritis Endocrine: No: Diabetes Mellitus - Past Surgical History Past Surgical History: Yes: None - Alcohol/Substance Use Hx Alcohol Use: No History of Substance Use: reports: None - Smoking History Smoking history: Former smoker Have you smoked in the past 12 months: No Aproximately how many cigarettes per day: 0 If you are a former smoker, when did you quit?: 2014 - Social History Usual Living Arrangement: Other (WITH FRIEND) ADL: Independent History of Recent Travel: No Home Medications - Allergies Allergies/Adverse Reactions: Allergies Allergy/AdvReac Type Severity Reaction Status Date / Time black walnut Allergy Severe Hives Verified 05/27/18 17:10 budesonide [From Symbicort] Allergy Severe Swelling Verified 05/27/18 20:28 formoterol [From Symbicort] Allergy Severe Swelling Verified 05/27/18 20:28 sulfamethoxazole Allergy Severe Swelling Verified 05/27/18 17:10 [From Bactrim] trimethoprim [From Bactrim] Allergy Severe Swelling Verified 05/27/18 17:10 PECAN Allergy Severe Hives Uncoded 05/27/18 17:10 - Home Medications Home Medications: Ambulatory Orders Cholecalciferol (Vitamin D3) [Vitamin D -] 50,000 unit PO WEEKLY 12/05/17 Albuterol Sulfate Inhaler - [Ventolin HFA Inhaler -] 1 - 2 inh PO Q4H PRN #1 inhaler 01/20/18 Ferrous Sulfate [Feosol] 325 mg PO DAILY 02/04/18 Fluticasone/Salmeterol [Advair 250-50 Diskus] 1 puff IN QID PRN 02/04/18 Folic Acid 1 mg PO DAILY 02/04/18 Umeclidinium [employer] [Incruse Ellipta] 62.5 mcg IH DAILY 02/04/18 Diltiazem [Cardizem -] 30 mg PO TID 30 Days #90 tablet 02/12/18 Montelukast Na [Singulair -] 10 mg PO HS #30 tablet 02/12/18 Polyethylene Glycol 3350 [Miralax 119 gm Btl -] 17 gm PO DAILY PRN 5 Days #5 bottle 02/12/18 Albuterol Sulfate Inhaler - [Ventolin Hfa Inhaler -] 1 - 2 inh PO Q4H #1 inhaler 04/25/18 Ipratropium/Albuterol Sulfate [Combivent Respimat Inhal [place]] 4 gm IH BID #20 aer.w.adap 04/25/18 Family Disease History - Family Disease History Family History: Unremarkable Review of Systems - Review of Systems Constitutional: reports: No Symptoms Eyes: reports: No Symptoms HENT: reports: No Symptoms Neck: reports: No Symptoms Cardiovascular: denies: Chest Pain Respiratory: reports: SOB. denies: Hemoptysis Gastrointestinal: reports: No Symptoms. denies: Diarrhea Genitourinary: reports: No Symptoms. denies: Burning Musculoskeletal: reports: No Symptoms Integumentary: reports: No Symptoms Neurological: reports: No Symptoms Endocrine: reports: No Symptoms Physical Exam Vital Signs: Vital Signs Temperature 97.7 F 06/10/18 15:26 Pulse Rate 137 H 06/10/18 15:26 Respiratory Rate 22 H 06/10/18 15:26 Blood Pressure 89/54 L 06/10/18 15:26 O2 Sat by Pulse Oximetry (%) 100 06/10/18 12:16 Constitutional: Yes: Mild Distress, Thin Eyes: Yes: WNL HENT: Yes: Other (cannot examine due to bipap mask) Neck: Yes: Supple, Trachea Midline Cardiovascular: Yes: Regular Rate and Rhythm, Tachycardia Respiratory: Yes: Regular, Diminished Gastrointestinal: Yes: Normal Bowel Sounds, Soft, Tenderness (RUQ tenderness to palpation) Breast(s): Yes: WNL Musculoskeletal: Yes: WNL Extremities: Yes: WNL Edema: No Integumentary: Yes: WNL Labs: CBC, BMP 06/10/18 07:33 06/10/18 07:33 Imaging - Results Chest X-ray: Report Reviewed, Image Reviewed (left hilar infiltrate) Problem List - Problems (1) Sepsis Code(s): A41.9 - SEPSIS, UNSPECIFIED ORGANISM (2) Acute on chronic respiratory failure with hypoxia and hypercapnia Code(s): J96.21 - ACUTE AND CHRONIC RESPIRATORY FAILURE WITH HYPOXIA; J96.22 - ACUTE AND CHRONIC RESPIRATORY FAILURE WITH HYPERCAPNIA (3) Hospital acquired PNA Code(s): J18.9 - PNEUMONIA, UNSPECIFIED ORGANISM Assessment/Plan sepsis- lactic acidosis , wbc 55k! left hilar pneumonia- hospital acquired vancomycin and zosyn for now cultures sputum and blood has been on zithromax since admission so doubt atypical pneumonia would repeat cbc as well no signs cdiff does have RUQ pain would get stat RUQ sono to r/o biliary disease blood cultures cbc, cmp, lactic acid all ordered stat now ruq bedside sonogram vanco/zosyn low threshold for ICU d/w Dr Parker
[2018-06-10 17:24] LABS: HEMOGLOBIN 9.7 GM/dL (10.7-15.3); MCH 22.3 pg (25.7-33.7); MCHC 30.4 g/dl (32.0-36.0); MEAN CELL VOLUME 73.3 fl (80-96); MEAN PLT VOLUME 10.3 fl (7.5-11.1); PLATELET COUNT 110 K/MM3 (134-434); RBC 4.37 M/mm3 (3.60-5.2); RDW 16.3 % (11.6-15.6)
[2018-06-10 17:31] LABS: WHITE BLOOD COUNT 43.2 K/mm3 (4.0-10.0)
[2018-06-10] MEDS: PIPERACILLIN/TAZOB 3.375 GM 3.375 GM in DEXTROSE 5%-WATER - 50 ML IVPB SCH (18:06)
[2018-06-10 18:47] LABS: ALBUMIN 1.9 g/dl (3.4-5.0); ALK PHOS 50 U/L (45-117); ANION GAP 4 MMOL/L (8-16); BILIRUBIN,TOTAL 0.5 mg/dL (0.2-1); BLOOD UREA NITROGEN 47 mg/dL (7-18); CHLORIDE 104 mmol/L (98-107); CO2 35 mmol/L (21-32); CREATININE 1.8 mg/dL (0.55-1.3); GLUCOSE,RANDOM 135 mg/dL (74-106); POTASSIUM 4.9 mmol/L (3.5-5.1); SGOT/AST 25 U/L (15-37); SGPT/ALT 53 U/L (13-61); SODIUM 144 mmol/L (136-145); TOT PROT 4.7 g/dl (6.4-8.2)
[2018-06-10 18:48] LABS: ANISOCYTOSIS 0; MACROCYTOSIS 0; PLATELET ESTIMATE DECREASED
[2018-06-10] MEDS: VANCOMYCIN 1,000 MG in DEXTROSE 5%-WATER - 250 ML IVPB SCH (18:50)
[2018-06-10] MEDS ORDERED: KETOROLAC TROMETHAMINE 15 MG/ML VIAL IVPUSH ONE ×2 (21:09→21:30)
[2018-06-10] MEDS: MONTELUKAST NA 10 MG TABLET PO SCH (21:31)
[2018-06-11] MEDS ORDERED: PIPERACILLIN/TAZOBACTAM 3.375 GM VIAL IVPB ONE ×3 (00:13→16:55)
[2018-06-11] MEDS ORDERED: DEXTROSE 5%-WATER - 50 ML IVPB ONE ×3 (00:13→16:55)
[2018-06-11] MEDS: ACETAMINOPHEN 325 MG TABLET (FP) PO PRN ×3 (00:17→23:18)
[2018-06-11] MEDS: PIPERACILLIN/TAZOB 3.375 GM 3.375 GM in DEXTROSE 5%-WATER - 50 ML IVPB SCH ×3 (01:58→17:07)
[2018-06-11] MEDS: ALBUTEROL SO4 0.083% IH SOL 2.5 MG/3 ML VIAL.NEB. NEB PRN ×6 (03:00→23:26)
[2018-06-11] MEDS: VANCOMYCIN 1,000 MG in DEXTROSE 5%-WATER - 250 ML IVPB SCH (05:45)
[2018-06-11] MEDS ORDERED: PT OWN MED DRAWER 7, Y5N ONE ×2 (05:51→09:08)
[2018-06-11] MEDS: SODIUM CHLORIDE 1,000 ML IV SCH ×4 (06:12→21:00)
[2018-06-11] MEDS: dilTIAZem HCL 30 MG TABLET (FP) PO SCH ×4 (06:13→23:20)
[2018-06-11 07:10] LABS: BASO % 0.4 % (0-2.0); HEMATOCRIT 28.9 % (32.4-45.2); HEMOGLOBIN 8.7 GM/dL (10.7-15.3); LYMPH % 0.6 % (8-40); MCH 21.9 pg (25.7-33.7); MEAN PLT VOLUME 9.9 fl (7.5-11.1); MONO % 9.7 % (3.8-10.2); NEUT % 89.3 % (42.8-82.8); PLATELET COUNT 83 K/MM3 (134-434); RBC 3.96 M/mm3 (3.60-5.2); RDW 16.1 % (11.6-15.6)
[2018-06-11 07:54] LABS: ALBUMIN 1.8 g/dl (3.4-5.0); ALK PHOS 41 U/L (45-117); ANION GAP 9 MMOL/L (8-16); BILIRUBIN,TOTAL 0.5 mg/dL (0.2-1); BLOOD UREA NITROGEN 62 mg/dL (7-18); CALCIUM 8.6 mg/dL (8.5-10.1); CHLORIDE 105 mmol/L (98-107); CO2 33 mmol/L (21-32); GLUCOSE,RANDOM 88 mg/dL (74-106); PHOSPHOROUS 4.6 mg/dL (2.5-4.9); SGOT/AST 21 U/L (15-37); SGPT/ALT 43 U/L (13-61); SODIUM 147 mmol/L (136-145); TOT PROT 4.4 g/dl (6.4-8.2)
[2018-06-11] MEDS: FERROUS SO4 325 MG TABLET (FP) PO SCH (09:28)
[2018-06-11] MEDS: FOLIC ACID 1 MG TABLET (FP) PO SCH (09:28)
[2018-06-11] MEDS: PANTOPRAZOLE 20 MG TABLET (FP) PO SCH (09:28)
[2018-06-11] MEDS: ROFLUMILAST 500 MCG TABLET PO SCH (09:28)
[2018-06-11] MEDS: ENOXAPARIN NA (PORCINE) 40 MG/0.4 ML DISP.SYRIN SQ SCH (09:29)
[2018-06-11] MEDS: methylPREDNISolone NA SUCC 40 MG/1 ML VIAL IVPUSH SCH ×2 (09:30→21:27)
[2018-06-11] MEDS: TIOTROPIUM BROMIDE 2.5 MCG (SPIRIVA) RESPIMAT INHALER IH SCH (09:30)
--- NOTE | 2018-06-11 09:35 | PN ---
Progress Note (short form) - Note Progress Note: states breathing has improved however still having some difficulty in the morning when she wakes up. has some abdominal pain which she says is improved can not indicate when it started. requesting to eat. +non productive cough. denies Cp, fever, chills, N/V/C/D notoified by RN that SBP 90's this AM tachycardic in 110 but pt not symptomatic Current Medications Generic Name Dose Route Start Last Admin Trade Name Freq PRN Reason Stop Dose Admin Acetaminophen 650 mg 05/30/18 20:49 06/11/18 09:29 Tylenol - PO 650 mg Q6H PRN Administration PAIN LEVEL 6-10 Albuterol Sulfate 1 amp 05/29/18 13:11 06/11/18 08:13 Ventolin 0.083% Nebulizer Soln - NEB 1 amp Q1H PRN Administration SHORT OF BREATH/WHEEZING Diltiazem HCl 30 mg 05/31/18 12:00 06/11/18 06:13 Cardizem - PO Not Given Q6HPO [facility] Enoxaparin Sodium 40 mg 06/04/18 10:00 06/11/18 09:29 Lovenox - SQ 40 mg DAILY [facility] Administration Ergocalciferol 50,000 unit 06/01/18 10:00 06/08/18 10:01 Drisdol - PO 50,000 unit Q7D@1000 [facility] Administration Ferrous Sulfate 325 mg 05/28/18 10:00 06/11/18 09:28 Feosol - PO 325 mg DAILY [facility] Administration Folic Acid 1 mg 05/28/18 10:00 06/11/18 09:28 Folic Acid - PO 1 mg DAILY [facility] Administration Piperacillin Sod/Tazobactam 50 mls @ 100 mls/hr 06/10/18 18:00 06/11/18 09:31 Sod 3.375 gm/ Dextrose IVPB 100 mls/hr Q8H-IV [facility] Administration Protocol Sodium Chloride 1,000 mls @ 75 mls/hr 06/10/18 09:30 06/11/18 09:31 Normal Saline - IV Not Given ASDIR [facility] Vancomycin HCl 1,000 mg/ 250 mls @ 166.667 mls/hr 06/10/18 17:30 06/11/18 05: 45 Dextrose IVPB 166.667 mls/hr BID@0500,1700 [facility] Administration Protocol Sodium Chloride 1,000 mls @ 100 mls/hr 06/11/18 07:45 06/11/18 09:27 Normal Saline - IV 100 mls/hr ASDIR [facility] Administration Methylprednisolone Sodium Succinate 40 mg 06/08/18 22:00 06/11/18 09:30 Solu-Medrol - IVPUSH 40 mg BID [facility] Administration Montelukast Sodium 10 mg 05/31/18 22:00 06/10/18 21:31 Singulair - PO 10 mg HS [facility] Administration Pantoprazole Sodium 20 mg 05/30/18 10:00 06/11/18 09:28 Protonix - PO 20 mg DAILY [facility] Administration Polyethylene Glycol 17 gm 05/31/18 14:40 Miralax (For Daily Use) - PO DAILY PRN CONSTIPATION Roflumilast 500 mcg 05/30/18 13:00 06/11/18 09:28 Daliresp - PO 500 mcg DAILY [facility] Administration Tiotropium [place] 2 puff 06/05/18 12:00 06/11/18 09:30 Spiriva Respimat IH 2 puff DAILY [facility] Administration Last Vital Signs Temp Pulse Resp BP Pulse Ox 97.7 F 109 H 23 H 99/48 L 100 06/11/18 09:20 06/11/18 09:20 06/11/18 09:20 06/11/18 09:20 06/11/18 09:22 General NAD CV S1 S2 RRR Lungs diffuse wheezing decreased breath sound L upper lung field. poor inspiratory effort abdomen RUQ/LUQ tenderness CBCD WBC 44.0 K/mm3 (4.0-10.0) H* 06/11/18 06:00 RBC 3.96 M/mm3 (3.60-5.2) 06/11/18 06:00 Hgb 8.7 GM/dL (10.7-15.3) L 06/11/18 06:00 Hct 28.9 % (32.4-45.2) L 06/11/18 06:00 MCV 73.0 fl (80-96) L 06/11/18 06:00 MCHC 30.0 g/dl (32.0-36.0) L 06/11/18 06:00 RDW 16.1 % (11.6-15.6) H 06/11/18 06:00 Plt Count 83 K/MM3 (134-434) L D 06/11/18 06:00 MPV 9.9 fl (7.5-11.1) 06/11/18 06:00 CMP Sodium 147 mmol/L (136-145) H 06/11/18 06:00 Potassium 5.0 mmol/L (3.5-5.1) 06/11/18 06:00 Chloride 105 mmol/L (98-107) 06/11/18 06:00 Carbon Dioxide 33 mmol/L (21-32) H 06/11/18 06:00 Anion Gap 9 MMOL/L (8-16) 06/11/18 06:00 BUN 62 mg/dL (7-18) H 06/11/18 06:00 Creatinine 2.0 mg/dL (0.55-1.3) H 06/11/18 06:00 Creat Clearance w eGFR 25.50 (>60) 06/11/18 06:00 Calcium 8.6 mg/dL (8.5-10.1) 06/11/18 06:00 Total Bilirubin 0.5 mg/dL (0.2-1) 06/11/18 06:00 AST 21 U/L (15-37) 06/11/18 06:00 ALT 43 U/L (13-61) 06/11/18 06:00 Alkaline Phosphatase 41 U/L (45-117) L 06/11/18 06:00 Total Protein 4.4 g/dl (6.4-8.2) L 06/11/18 06:00 Albumin 1.8 g/dl (3.4-5.0) L 06/11/18 06:00 ASSESSMENT AND PLAN: 58yo F with PMH HTn, COPD on home O2 (3L NC) and anemia presented with SOB and cough 1. Acute on chronic hypercapnic respiratory distress- likely due to HCAP. overall improved with CO2 trending down but still requiring high O2 on bipap machine. no events overnight of dsypnea. will try to titrate down O2 as tolerated to maintain spO2 >88% 2. sepsis due to HCAP- afebrile however elevated leukocytosis and tachycardia. started on vanco/zosyn day 2. RUQ u/s done to r/o GI pathology which was negative. will need to check vanco levels daily with rising Cr. f/u Cx. ID on board. 3. Acute on chronic COPD exacerbation- likely precipitated by harsh chemical smells. now worsening with developing PNA. cont current steroid dosing, bipap tenuous breathing may benefit from more monitored setting will d/w with ICU about possible transfer to ICU. is agreeable to intubation if necessary. pulmonary on board. nebs, inhalers 4. HTN urgency-now hypotensive. likely due to infection. started on IVF. hold antihypertensives. frequent BP monitoring. 5. Acute on CKD- likely due to sepsis and hypoperfusion. has hx of renal disease as seen on u/s. avoid nephrotoxic agents 6. Normocytic anemia- was likely dehydrated on presentation. slowly trending down. some dilutional component. watch closely. no indication for txn at this time 7. DVT ppx- hep sq Visit type - Emergency Visit Emergency Visit: Yes ED Registration Date: 05/27/18 Care time: The patient presented to the Emergency Department on the above date and was hospitalized for further evaluation of their emergent condition. - New Patient This patient is new to me today: No - Critical Care Critical Care patient: No - Discharge Referral Referred to [facility] Med P.C.: No
[2018-06-11 10:01] LABS: ANISOCYTOSIS 2+; MACROCYTOSIS 0; PLATELET ESTIMATE DECREASED; TARGET CELLS 1+
--- NOTE | 2018-06-11 11:19 | PN ---
Progress Note, Physician History of Present Illness: pulmonary feeling better on bipap,less dyspneic,+ cough - Current Medication List Current Medications: Active Medications Acetaminophen (Tylenol -) 650 mg PO Q6H PRN PRN Reason: PAIN LEVEL 6-10 Last Admin: 06/11/18 09:29 Dose: 650 mg Albuterol Sulfate (Ventolin 0.083% Nebulizer Soln -) 1 amp NEB Q1H PRN PRN Reason: SHORT OF BREATH/WHEEZING Last Admin: 06/11/18 08:13 Dose: 1 amp Diltiazem HCl (Cardizem -) 30 mg PO Q6HPO [facility] Last Admin: 06/11/18 06:13 Dose: Not Given Enoxaparin Sodium (Lovenox -) 40 mg SQ DAILY [facility] Last Admin: 06/11/18 09:29 Dose: 40 mg Ergocalciferol (Drisdol -) 50,000 unit PO Q7D@1000 [facility] Last Admin: 06/08/18 10:01 Dose: 50,000 unit Ferrous Sulfate (Feosol -) 325 mg PO DAILY [facility] Last Admin: 06/11/18 09:28 Dose: 325 mg Folic Acid (Folic Acid -) 1 mg PO DAILY [facility] Last Admin: 06/11/18 09:28 Dose: 1 mg Piperacillin Sod/Tazobactam (Sod 3.375 gm/ Dextrose) 50 mls @ 100 mls/hr IVPB Q8H-IV [facility]; Protocol Last Admin: 06/11/18 09:31 Dose: 100 mls/hr Sodium Chloride (Normal Saline -) 1,000 mls @ 75 mls/hr IV ASDIR [facility] Last Admin: 06/11/18 09:31 Dose: Not Given Vancomycin HCl 1,000 mg/ (Dextrose) 250 mls @ 166.667 mls/hr IVPB BID@0500, 1700 [facility]; Protocol Last Admin: 06/11/18 05:45 Dose: 166.667 mls/hr Sodium Chloride (Normal Saline -) 1,000 mls @ 100 mls/hr IV ASDIR [facility] Last Admin: 06/11/18 09:27 Dose: 100 mls/hr Methylprednisolone Sodium Succinate (Solu-Medrol -) 40 mg IVPUSH BID [facility] Last Admin: 06/11/18 09:30 Dose: 40 mg Montelukast Sodium (Singulair -) 10 mg PO HS [facility] Last Admin: 06/10/18 21:31 Dose: 10 mg Pantoprazole Sodium (Protonix -) 20 mg PO DAILY [facility] Last Admin: 06/11/18 09:28 Dose: 20 mg Polyethylene Glycol (Miralax (For Daily Use) -) 17 gm PO DAILY PRN PRN Reason: CONSTIPATION Roflumilast (Daliresp -) 500 mcg PO DAILY [facility] Last Admin: 06/11/18 09:28 Dose: 500 mcg Tiotropium [place] (Spiriva Respimat) 2 puff IH DAILY [facility] Last Admin: 06/11/18 09:30 Dose: 2 puff - Objective Vital Signs: Vital Signs Temperature 97.7 F 06/11/18 09:20 Pulse Rate 109 H 06/11/18 09:20 Respiratory Rate 23 H 06/11/18 09:20 Blood Pressure 99/48 L 06/11/18 09:20 O2 Sat by Pulse Oximetry (%) 100 06/11/18 09:53 Constitutional: Yes: Well Nourished, Calm Eyes: Yes: WNL HENT: Yes: WNL Neck: Yes: WNL Cardiovascular: Yes: Regular Rate and Rhythm, S1, S2 Respiratory: Yes: On BiPap, Wheezes (scattered wheezes) Gastrointestinal: Yes: Normal Bowel Sounds, Soft Extremities: Yes: WNL Edema: No Labs: CBC, BMP 06/11/18 06:00 06/11/18 06:00 Laboratory Tests 06/10/18 12:05 ABG pH 7.41 ABG pCO2 at Pt Temp 54.2 H ABG pO2 at Pt Temp 210.0 H* ABG HCO3 33.7 H ABG O2 Sat (Measured) 99.8 H* O2 Delivery Device Bipap Oxygen Flow Rate 100% Vent Rate 16 Pressure Support Vent 10/5 Problem List - Problems (1) COPD exacerbation Code(s): J44.1 - CHRONIC OBSTRUCTIVE PULMONARY DISEASE W (ACUTE) EXACERBATION (2) Shortness of breath Code(s): R06.02 - SHORTNESS OF BREATH (3) Bronchiectasis Code(s): J47.9 - BRONCHIECTASIS, UNCOMPLICATED (4) Chronic respiratory failure with hypoxia Code(s): J96.11 - CHRONIC RESPIRATORY FAILURE WITH HYPOXIA (5) Emphysema lung Code(s): J43.9 - EMPHYSEMA, UNSPECIFIED (6) Supplemental oxygen dependent Code(s): Z99.81 - DEPENDENCE ON SUPPLEMENTAL OXYGEN Assessment/Plan A/P Acute COPD Exacerbation Acute ON Chronic Hypoxic/Hypercapneic Respiratory Failure CHIKI pneumonia HTN - medrol - abx as per ID - inhaled bronchodilators standing and PRN - O2 to keep SpO2 90% - daliresp - DVT prophylaxis - add zithromax 250mg po daily as anti-inflammatory - f/u abgs - f/u chest x-rays DR SMITH
--- NOTE | 2018-06-11 13:52 | PN ---
Progress Note (short form) - Note Progress Note: remains on bipap alert no diarrhea Vital Signs Period Temp Pulse Resp BP Sys/Echevarria Pulse Ox Last 24 Hr 97.4 F-97.7 F 100-146 20-26 89-141/48-63 99-100 cor-rrr lungs decreased bs at bases abd soft,slight right flank discomfort ext no edema CBC, BMP 06/11/18 06:00 06/11/18 06:00 sono- no cholelithiasis Laboratory Tests 06/11/18 06:00 Total Bilirubin 0.5 AST 21 ALT 43 a/p sepsis HAP RAOUL +troponins continue zosyn adjust vancomycin for RAOUL-hold further vancomycin today, check level in am bipap per pulmonary d/w pulmonary f/u cultures overall prognosis guarded
[2018-06-11] MEDS ORDERED: LORazepam 2 MG/ML SDV VIAL IVPUSH PRN (14:52)
[2018-06-11] MEDS: MONTELUKAST NA 10 MG TABLET PO SCH (21:27)
[2018-06-11] MEDS ORDERED: MUPIROCIN 2% TOPICAL OINTMENT FOR DECOLONIZATION NS SCH (22:00)
[2018-06-11] MEDS ORDERED: CHLORHEXIDINE GLUCONATE 4% CLEANSER FOR DECOLONIZATION TP SCH (22:00)
[2018-06-12] MEDS ORDERED: DEXTROSE 5%-WATER - 50 ML IVPB ONE ×3 (01:37→21:13)
[2018-06-12] MEDS ORDERED: PIPERACILLIN/TAZOBACTAM 3.375 GM VIAL IVPB ONE ×3 (01:37→21:13)
[2018-06-12] MEDS: PIPERACILLIN/TAZOB 3.375 GM 3.375 GM in DEXTROSE 5%-WATER - 50 ML IVPB SCH ×3 (01:53→18:00)
[2018-06-12] MEDS: dilTIAZem HCL 30 MG TABLET (FP) PO SCH ×3 (05:56→18:01)
[2018-06-12 07:16] LABS: HEMATOCRIT 24.8 % (32.4-45.2); HEMOGLOBIN 7.5 GM/dL (10.7-15.3); MCHC 30.3 g/dl (32.0-36.0); MEAN CELL VOLUME 72.5 fl (80-96); RBC 3.43 M/mm3 (3.60-5.2)
[2018-06-12 07:55] LABS: ANION GAP 7 MMOL/L (8-16); BLOOD UREA NITROGEN 61 mg/dL (7-18); CALCIUM 8.4 mg/dL (8.5-10.1); CHLORIDE 113 mmol/L (98-107); CO2 32 mmol/L (21-32); CREATININE 1.5 mg/dL (0.55-1.3); GLUCOSE,RANDOM 88 mg/dL (74-106); POTASSIUM 4.7 mmol/L (3.5-5.1); SODIUM 152 mmol/L (136-145)
[2018-06-12 08:20] LABS: WHITE BLOOD COUNT 36.5 K/mm3 (4.0-10.0)
[2018-06-12] MEDS: ALBUTEROL SO4 0.083% IH SOL 2.5 MG/3 ML VIAL.NEB. NEB PRN ×4 (08:39→19:01)
[2018-06-12 09:23] LABS: MEAN PLT VOLUME 9.1 fl (7.5-11.1); PLATELET COUNT 58 K/MM3 (134-434)
[2018-06-12 09:25] LABS: ANISOCYTOSIS 1+; SMUDGE CELLS FEW
[2018-06-12 09:26] LABS: PLATELET ESTIMATE DECREASED
--- NOTE | 2018-06-12 10:29 | PN ---
Teaching Attending Note Name of Resident: Babs Flores ATTENDING PHYSICIAN STATEMENT I saw and evaluated the patient. I reviewed the resident's note and discussed the case with the resident. I agree with the resident's findings and plan as documented. SUBJECTIVE:sitting up comfortable on venti face mask. states she feels much improved. +non productive cough. denies Cp, fever, chills, night sweats, N/V/C/D was evaluated yesterday for MICU placement but was considered stable for floors OBJECTIVE: Last Vital Signs Temp Pulse Resp BP Pulse Ox 98.2 F 118 H 20 124/69 99 06/12/18 06:00 06/12/18 06:00 06/12/18 06:00 06/12/18 06:00 06/12/18 05:25 General NAD Lungs diffuse wheezing. scattered rhonchi. crackles at bases ASSESSMENT AND PLAN: 58yo F with PMH HTn, COPD on home O2 (3L NC) and anemia presented with SOB and cough 1. Acute on chronic hypercapnic respiratory distress- likely due to HCAP. clinically looks much improved. on 40% mask saturating 99%. instructed her to notify RN for any discomfort to place Bipap back on. should use bipap HS. supplemental oxygen to maintain spO2 >88% 2. sepsis due to HCAP- afebrile. leukocytosis trending down. on vanco by level/ zosyn day 3. will d/c IVF as developing some crackles on exam. ID on board. 3. Acute on chronic COPD exacerbation- likely precipitated by harsh chemical smells. now worsening with developing PNA. cont current steroid dosing, titrate oxygen. pulmonary on board. nebs, inhalers 4. HTN urgency-now normotensive. will d/c IVF. hold oral agents and re-start as needed. 5. Acute on CKD- likely due to sepsis and hypoperfusion. now improving. avoid nephrotoxic agents 6. Normocytic anemia- was likely dehydrated on presentation. slowly trending down. some dilutional component. watch closely. no indication for txn at this time 7. DVT ppx- hep sq 8. will need pulmonary rehab when medically stable
[2018-06-12] MEDS: SODIUM CHLORIDE 1,000 ML IV SCH ×2 (10:41→10:44)
[2018-06-12] MEDS: PANTOPRAZOLE 20 MG TABLET (FP) PO SCH (10:42)
[2018-06-12] MEDS: ENOXAPARIN NA (PORCINE) 40 MG/0.4 ML DISP.SYRIN SQ SCH (10:42)
[2018-06-12] MEDS: FERROUS SO4 325 MG TABLET (FP) PO SCH (10:42)
[2018-06-12] MEDS: methylPREDNISolone NA SUCC 40 MG/1 ML VIAL IVPUSH SCH ×2 (10:43→21:33)
[2018-06-12] MEDS: FOLIC ACID 1 MG TABLET (FP) PO SCH (10:43)
[2018-06-12] MEDS: ROFLUMILAST 500 MCG TABLET PO SCH (10:43)
[2018-06-12] MEDS: TIOTROPIUM BROMIDE 2.5 MCG (SPIRIVA) RESPIMAT INHALER IH SCH (10:43)
--- NOTE | 2018-06-12 12:21 | PN ---
Progress Note, Physician Chief Complaint: pulmonary alert,feeling better ,dyspneic on vm - Current Medication List Current Medications: Active Medications Acetaminophen (Tylenol -) 650 mg PO Q6H PRN PRN Reason: PAIN LEVEL 6-10 Last Admin: 06/11/18 23:18 Dose: 650 mg Albuterol Sulfate (Ventolin 0.083% Nebulizer Soln -) 1 amp NEB Q1H PRN PRN Reason: SHORT OF BREATH/WHEEZING Last Admin: 06/12/18 11:51 Dose: 1 amp Chlorhexidine Gluconate (Hibiclens For Decolonization -) 1 applic TP [facility] Diltiazem HCl (Cardizem -) 30 mg PO Q6HPO [facility] Last Admin: 06/12/18 05:56 Dose: 30 mg Enoxaparin Sodium (Lovenox -) 40 mg SQ DAILY [facility] Last Admin: 06/12/18 10:42 Dose: 40 mg Ergocalciferol (Drisdol -) 50,000 unit PO Q7D@1000 [facility] Last Admin: 06/08/18 10:01 Dose: 50,000 unit Ferrous Sulfate (Feosol -) 325 mg PO DAILY [facility] Last Admin: 06/12/18 10:42 Dose: 325 mg Folic Acid (Folic Acid -) 1 mg PO DAILY [facility] Last Admin: 06/12/18 10:43 Dose: 1 mg Piperacillin Sod/Tazobactam (Sod 3.375 gm/ Dextrose) 50 mls @ 100 mls/hr IVPB Q8H-IV [facility]; Protocol Last Admin: 06/12/18 10:57 Dose: 100 mls/hr Sodium Chloride (Normal Saline -) 1,000 mls @ 75 mls/hr IV ASDIR [facility] Last Admin: 06/12/18 10:44 Dose: 75 mls/hr Sodium Chloride (Normal Saline -) 1,000 mls @ 100 mls/hr IV ASDIR [facility] Last Admin: 06/12/18 10:41 Dose: Not Given Lorazepam (Ativan Injection -) 0.5 mg IVPUSH Q6H PRN PRN Reason: ANXIETY Methylprednisolone Sodium Succinate (Solu-Medrol -) 40 mg IVPUSH BID [facility] Last Admin: 06/12/18 10:43 Dose: 40 mg Montelukast Sodium (Singulair -) 10 mg PO [facility] Last Admin: 06/11/18 21:27 Dose: 10 mg Mupirocin (Bactroban Ointment (For Decolonization) -) 1 applic NS BID [facility] Stop: 06/16/18 21:59 Pantoprazole Sodium (Protonix -) 20 mg PO DAILY [facility] Last Admin: 06/12/18 10:42 Dose: 20 mg Polyethylene Glycol (Miralax (For Daily Use) -) 17 gm PO DAILY PRN PRN Reason: CONSTIPATION Roflumilast (Daliresp -) 500 mcg PO DAILY [facility] Last Admin: 06/12/18 10:43 Dose: 500 mcg Tiotropium [place] (Spiriva Respimat) 2 puff IH DAILY [facility] Last Admin: 06/12/18 10:43 Dose: 2 puff - Objective Vital Signs: Vital Signs Temperature 98.2 F 06/12/18 06:00 Pulse Rate 118 H 06/12/18 06:00 Respiratory Rate 20 06/12/18 06:00 Blood Pressure 124/69 06/12/18 06:00 O2 Sat by Pulse Oximetry (%) 99 06/12/18 05:25 Constitutional: Yes: Well Nourished, Other (dyspneic) Eyes: Yes: WNL HENT: Yes: WNL Neck: Yes: WNL Cardiovascular: Yes: Regular Rate and Rhythm, S1, S2 Respiratory: Yes: Rhonchi (scattered levon rhonchi) Gastrointestinal: Yes: Normal Bowel Sounds, Soft Extremities: Yes: WNL Edema: No Labs: CBC, BMP 06/12/18 05:45 06/12/18 05:45 - ....Imaging Chest X-ray: Report Reviewed, Image Reviewed (increased left lung infiltrate) Problem List - Problems (1) COPD exacerbation Code(s): J44.1 - CHRONIC OBSTRUCTIVE PULMONARY DISEASE W (ACUTE) EXACERBATION (2) Shortness of breath Code(s): R06.02 - SHORTNESS OF BREATH (3) Bronchiectasis Code(s): J47.9 - BRONCHIECTASIS, UNCOMPLICATED (4) Chronic respiratory failure with hypoxia Code(s): J96.11 - CHRONIC RESPIRATORY FAILURE WITH HYPOXIA (5) Emphysema lung Code(s): J43.9 - EMPHYSEMA, UNSPECIFIED (6) Supplemental oxygen dependent Code(s): Z99.81 - DEPENDENCE ON SUPPLEMENTAL OXYGEN Assessment/Plan A/P Acute COPD Exacerbation Acute ON Chronic Hypoxic/Hypercapneic Respiratory Failure CHIKI pneumonia HTN RAOUL ANEMIA + TROPONIN - medrol taper - ivf - abx as per ID - inhaled bronchodilators standing and PRN - O2 to keep SpO2 90% - daliresp - DVT prophylaxis - f/u abgs - f/u chest x-rays - normal transfusion threshold DR SMITH
[2018-06-12] MEDS ORDERED: VANCOMYCIN 1,000 MG in DEXTROSE 5%-WATER - 250 ML IVPB SCH (14:00)
--- NOTE | 2018-06-12 14:04 | PN ---
Progress Note (short form) - Note Progress Note: remains on bipap alert no diarrhea reports felling better Vital Signs Period Temp Pulse Resp BP Sys/Echevarria Pulse Ox Last 24 Hr 97.3 F-98.2 F 99-118 20-25 102-132/48-71 99-100 cor-rrr lungs crackles left lung abd soft,nt ext no edema CBC, BMP 06/12/18 05:45 06/12/18 05:45 Microbiology 06/10/18 18:00 Blood - Peripheral Venous Blood Culture - Preliminary NO GROWTH OBTAINED AFTER 24 HOURS, INCUBATION TO CONTINUE FOR 4 DAYS. 06/10/18 17:00 Blood - Peripheral Venous Blood Culture - Preliminary NO GROWTH OBTAINED AFTER 24 HOURS, INCUBATION TO CONTINUE FOR 4 DAYS. 05/27/18 17:42 Blood - Peripheral Venous Blood Culture - Final NO GROWTH AFTER 5 DAYS INCUBATION 05/27/18 17:42 Blood - Peripheral Venous Blood Culture - Final NO GROWTH AFTER 5 DAYS INCUBATION vanco trough 12 Current Medications Acetaminophen (Tylenol -) 650 mg PO Q6H PRN PRN Reason: PAIN LEVEL 6-10 Last Admin: 06/11/18 23:18 Dose: 650 mg Albuterol Sulfate (Ventolin 0.083% Nebulizer Soln -) 1 amp NEB Q1H PRN PRN Reason: SHORT OF BREATH/WHEEZING Last Admin: 06/12/18 11:51 Dose: 1 amp Chlorhexidine Gluconate (Hibiclens For Decolonization -) 1 applic TP HS [facility] Diltiazem HCl (Cardizem -) 30 mg PO Q6HPO [facility] Last Admin: 06/12/18 05:56 Dose: 30 mg Enoxaparin Sodium (Lovenox -) 40 mg SQ DAILY [facility] Last Admin: 06/12/18 10:42 Dose: 40 mg Ergocalciferol (Drisdol -) 50,000 unit PO Q7D@1000 [facility] Last Admin: 06/08/18 10:01 Dose: 50,000 unit Ferrous Sulfate (Feosol -) 325 mg PO DAILY [facility] Last Admin: 06/12/18 10:42 Dose: 325 mg Folic Acid (Folic Acid -) 1 mg PO DAILY [facility] Last Admin: 06/12/18 10:43 Dose: 1 mg Piperacillin Sod/Tazobactam (Sod 3.375 gm/ Dextrose) 50 mls @ 100 mls/hr IVPB Q8H-IV [facility]; Protocol Last Admin: 06/12/18 10:57 Dose: 100 mls/hr Vancomycin HCl 1,000 mg/ (Dextrose) 250 mls @ 200 mls/hr IVPB Q24H [facility]; Protocol Lorazepam (Ativan Injection -) 0.5 mg IVPUSH Q6H PRN PRN Reason: ANXIETY Methylprednisolone Sodium Succinate (Solu-Medrol -) 40 mg IVPUSH BID [facility] Last Admin: 06/12/18 10:43 Dose: 40 mg Montelukast Sodium (Singulair -) 10 mg PO HS [facility] Last Admin: 06/11/18 21:27 Dose: 10 mg Mupirocin (Bactroban Ointment (For Decolonization) -) 1 applic NS BID [facility] Stop: 06/16/18 21:59 Pantoprazole Sodium (Protonix -) 20 mg PO DAILY [facility] Last Admin: 06/12/18 10:42 Dose: 20 mg Polyethylene Glycol (Miralax (For Daily Use) -) 17 gm PO DAILY PRN PRN Reason: CONSTIPATION Roflumilast (Daliresp -) 500 mcg PO DAILY [facility] Last Admin: 06/12/18 10:43 Dose: 500 mcg Tiotropium [place] (Spiriva Respimat) 2 puff IH DAILY [facility] Last Admin: 06/12/18 10:43 Dose: 2 puff a/p sepsis HAP RAOUL-improved +troponins continue zosyn resume vancomycin, adjust for RAOUL overall prognosis guarded Problem List - Problems (1) Sepsis Code(s): A41.9 - SEPSIS, UNSPECIFIED ORGANISM (2) Acute on chronic respiratory failure with hypoxia and hypercapnia Code(s): J96.21 - ACUTE AND CHRONIC RESPIRATORY FAILURE WITH HYPOXIA; J96.22 - ACUTE AND CHRONIC RESPIRATORY FAILURE WITH HYPERCAPNIA (3) Hospital acquired PNA Code(s): J18.9 - PNEUMONIA, UNSPECIFIED ORGANISM
--- NOTE | 2018-06-12 17:29 | PN ---
Physical Exam: SUBJECTIVE: Patient seen and examined at bedside this morning. Trial of venti mask from Bipap was done. Patient was able to tolerate for a few hours but then reported to be short of breath. Bipap was put on again and pt still has SOB. Patient was transferred to ICU for closer monitoring. OBJECTIVE: Vital Signs Period Temp Pulse Resp BP Sys/Echevarria Pulse Ox Last 24 Hr 97.3 F-98.5 F 99-118 20-25 104-135/48-77 99-99 GENERAL: The patient is awake, alert, and fully oriented, in acute distress. HEAD: Normal with no signs of trauma. EYES: PERRLA, EOMI, sclera anicteric, conjunctiva clear. ENT: Ears normal, nares patent, oropharynx clear without exudates, moist mucous membranes. NECK: Trachea midline, full range of motion, supple. LUNGS: + diffuse rhonchi bilaterally, +bibasilar crackles. HEART: Tachycardic, normal S1, S2 without murmur, rub or gallop. ABDOMEN: Soft, nontender, nondistended, normoactive bowel sounds. EXTREMITIES: 2+ pulses, warm, well-perfused, no edema. NEUROLOGICAL: Cranial nerves II through XII grossly intact. Normal speech, normal gait. PSYCH: Normal mood, normal affect. SKIN: Warm, dry, normal turgor, no rashes or lesions noted. Laboratory Results - last 24 hr 06/12/18 06/12/18 06/12/18 05:45 05:45 05:45 WBC 36.5 H* RBC 3.43 L Hgb 7.5 L Hct 24.8 L MCV 72.5 L MCH 22.0 L MCHC 30.3 L RDW 16.0 H Plt Count 58 L D MPV 9.1 Absolute Neuts (auto) 28.9 H Total Counted 100 Neutrophils % No Result Required. Neutrophils % (Manual) 71.0 Band Neutrophils % 15.0 Lymphocytes % No Result Required. Lymphocytes % (Manual) 7.0 L D Monocytes % (Manual) 2 L D Eosinophils % (Manual) 1.0 Nucleated RBC % 0 Metamyelocytes 4 H D Smudge Cells Few Hypochromia 2+ Platelet Estimate Decreased Platelet Comment No clumping noted Anisocytosis 1+ Sodium 152 H Potassium 4.7 Chloride 113 H Carbon Dioxide 32 Anion Gap 7 L BUN 61 H Creatinine 1.5 H Creat Clearance w eGFR 35.54 Random Glucose 88 Calcium 8.4 L Random Vancomycin 12.8 L Active Medications Generic Name Dose Route Start Last Admin Trade Name Freq PRN Reason Stop Dose Admin Acetaminophen 650 mg 05/30/18 20:49 06/11/18 23:18 Tylenol - PO 650 mg Q6H PRN Administration PAIN LEVEL 6-10 Albuterol Sulfate 1 amp 05/29/18 13:11 06/12/18 16:08 Ventolin 0.083% Nebulizer Soln - NEB 1 amp Q1H PRN Administration SHORT OF BREATH/WHEEZING Chlorhexidine Gluconate 1 applic 06/11/18 22:00 Hibiclens For Decolonization - TP HS [facility] Diltiazem HCl 30 mg 05/31/18 12:00 06/12/18 14:24 Cardizem - PO 30 mg Q6HPO [facility]ACH[facility] Administration Enoxaparin Sodium 40 mg 06/04/18 10:00 06/12/18 10:42 Lovenox - SQ 40 mg DAILY [facility] Administration Ergocalciferol 50,000 unit 06/01/18 10:00 06/08/18 10:01 Drisdol - PO 50,000 unit Q7D@1000 [facility] Administration Ferrous Sulfate 325 mg 05/28/18 10:00 06/12/18 10:42 Feosol - PO 325 mg DAILY [facility] Administration Folic Acid 1 mg 05/28/18 10:00 06/12/18 10:43 Folic Acid - PO 1 mg DAILY [facility] Administration Piperacillin Sod/Tazobactam 50 mls @ 100 mls/hr 06/10/18 18:00 06/12/18 10:57 Sod 3.375 gm/ Dextrose IVPB 100 mls/hr Q8H-IV [facility] Administration Protocol Vancomycin HCl 1,000 mg/ 250 mls @ 200 mls/hr 06/12/18 14:00 06/12/18 14:25 Dextrose IVPB 200 mls/hr Q24H [facility] Administration Protocol Lorazepam 0.5 mg 06/11/18 14:52 Ativan Injection - IVPUSH Q6H PRN ANXIETY Methylprednisolone Sodium Succinate 40 mg 06/08/18 22:00 06/12/18 10:43 Solu-Medrol - IVPUSH 40 mg BID [facility] Administration Montelukast Sodium 10 mg 05/31/18 22:00 06/11/18 21:27 Singulair - PO 10 mg HS [facility] Administration Mupirocin 1 applic 06/11/18 22:00 Bactroban Ointment (For Decolonization) - NS 06/16/18 21:59 BID [facility] Pantoprazole Sodium 20 mg 05/30/18 10:00 06/12/18 10:42 Protonix - PO 20 mg DAILY [facility] Administration Polyethylene Glycol 17 gm 05/31/18 14:40 Miralax (For Daily Use) - PO DAILY PRN CONSTIPATION Roflumilast 500 mcg 05/30/18 13:00 06/12/18 10:43 Daliresp - PO 500 mcg DAILY [facility] Administration Tiotropium [place] 2 puff 06/05/18 12:00 06/12/18 10:43 Spiriva Respimat IH 2 puff DAILY [facility] Administration Imaging: Chest X-Ray (05/27/18): No significant interval change. Persistent bilateral increased interstitial markings. Differential diagnosis again includes chronic interstitial lung disease. Cannot rule out noncardiogenic mild pulmonary venous congestion or interstitial infiltrates. Chest X-ray (05/30/18): No acute pathology or significant change. Chest CT scan without contrast (05/31/18): Moderately severe COPD with extensive bilateral bronchiectasis. These findings are unchanged since a previous study of 02/07/18. There is no evidence of acute pathology within the chest. CXR (06/06/18) 2 views of the some minimal degenerative changes with wedging. The soft tissues are intact. The chest reveal a normal-sized heart, normal knob and normal genesis. There are some coarse lung changes. There may be some linear atelectasis/density by the left heart border. Since the prior study 05/30/18, the density by the left heart border has become apparent. This most likely represents a focal area of atelectasis. CXR (06/10/18): New pulmonary consolidation medial aspect of the left upper lung zone obscuring aortic arch. No pleural effusion, or pneumothorax seen. No evidence of vascular congestive changes. ASSESSMENT/PLAN: Patient is a 58 year old female who presented with shortness of breath and found to be in COPD exacerbation. #Hospital acquired pneumonia : Patient had a trial of venti mask this morning. Initially tolerated for a few hours, and then started experiencing SOB. Put back on bipap. - CXR showed increase extent of left lobe pneumonia, likely new small loculated left pleural effusion. Mild pulmonary vascular congestion. - WBC trending down. 36.5 today. Will repeat CBC. - Patient placed on Bipap. - Repeat Trop 0.1. Will order third trop. - Patient on NPO. - discontinue Azithromycin. - ID (Dr. Tao) consulted. Recommendations appreciated. - Patient on Zosyn 3.375 gm q8 day 3. - Vancomycin 1000mg q8 day 3. - Pt developed RAOUL, will renally dose Vancomycin - vanc trough levels done - 12.8, Repeat vanc trough levels daily while on RAOUL. - blood cultures negative. #Acute on Chronic COPD exacerbation : - may be 2/2 CAP vs inhaled chemicals (house paint) - Pulmonary Consult. Recs appreciated: - Continue solu-medrol dose 40mg to q12h - Duonebs QID - Albuterol PRN - Add Daliresp (500mcg daily) - Symbicort not given. Pt reports allergy to symbicort. - Keep O2 satn >90% - Chest PT BID - Pt has frequent exacerbations, may need to be on chronic low dose steroids at home. #Atypical Chest Pain: midsternal tenderness on palpation, positional - Likely musculoskeletal due to COPD Exac - Troponins negative x1, unlikely cardiac in nature - Tylenol PRN for pain. - Lidocaine patch given which provided significant relief #Microcytic Anemia - likely due to RUBY - now at baseline Hgb - Fe Panel previously showed low Fe, low Fesat, low-normal ferritin - Continue Fe supplements #Hypertension - Cardizem 30mg q6h - Monitor BP closely #FEN - not on fluids - lytes wnl - Sodium controlled diet #Prophylaxis - Lovenox 40mg sq daily #Disposition - Med/Surg - Transfer to ICU for closer monitoring. Visit type - Emergency Visit Emergency Visit: Yes ED Registration Date: 05/27/18 Care time: The patient presented to the Emergency Department on the above date and was hospitalized for further evaluation of their emergent condition. - New Patient This patient is new to me today: Yes Date on this admission: 06/12/18 - Critical Care Critical Care patient: No
[2018-06-12] MEDS ORDERED: ACETAMINOPHEN 325 MG TABLET (FP) PO PRN (17:35)
[2018-06-12] MEDS ORDERED: POLYETHYLENE GLYCOL 3350 119 GM BTL PO PRN (17:35)
[2018-06-12] MEDS ORDERED: PT OWN MED DRAWER 7, Y5N ONE (19:07)
--- NOTE | 2018-06-12 20:37 | CONSULT ---
Consultation: CONSULT REQUEST: We have been asked to medically evaluate this patient for critical care. HISTORY OF PRESENT ILLNESS: 58 y/o w/PMH of COPD (on home O2 3L), chronic anemia, HTN initially admitted to [facility] for COPD exacerbation. Hospital course was complicated by HAP w/WBC of up to 56.5 (now down-trending to 36.5) although pt is on solu-medrol and requiring bipap for respiratory distress. Pt is currently on vanc/zosyn and is feeling better overall. She c/o a cough with yellow sputum since being on the floors which has remained the same. Starting today has had soft stool but denies it being watery. Currently denies CP, N/V/F/C, SOB, abd pain, ROJAS, dysuria, hemoptysis. She is currently on ventimask and feels comfortable on it. CXR shows L sided infiltrate. Pt does feel like she is weak now due to extensive hospital course. PMH: COPD (on 3L home O2), HTN, chronic anemia PSHx: Denies SH: Smokin pack year smoking hx, not current smoker Alcohol: Occasional Drugs: Former crack cocaine abuser; not a current user FH: Kidney disease in mother and father REVIEW OF SYSTEMS: CONSTITUTIONAL: Absent: fever, chills CARDIOVASCULAR: Absent: chest pain RESPIRATORY: +cough w/yellow sputum Absent: SOB GASTROINTESTINAL: +soft stool Absent: abdominal pain, nausea, vomiting GENITOURINARY: Absent: dysuria NEUROLOGIC: Absent: headache PHYSICAL EXAMINATION Vital Signs - 24 hr 06/11/18 06/11/18 06/12/18 21:00 23:25 02:00 Temperature 97.3 F L Pulse Rate 99 H Respiratory 20 20 Rate Blood Pressure 104/48 L O2 Sat by Pulse 99 99 Oximetry (%) 06/12/18 06/12/18 06/12/18 05:25 06:00 09:00 Temperature 98.2 F Pulse Rate 118 H Respiratory 20 Rate Blood Pressure 124/69 O2 Sat by Pulse 99 99 Oximetry (%) 06/12/18 06/12/18 06/12/18 12:00 14:18 16:08 Temperature 98 F 98.5 F Pulse Rate 100 H 106 H Respiratory 25 H 24 H Rate Blood Pressure 132/71 135/77 O2 Sat by Pulse 99 Oximetry (%) 06/12/18 06/12/18 18:00 18:18 Temperature 98.9 F Pulse Rate 92 H Respiratory 30 H Rate Blood Pressure 145/67 O2 Sat by Pulse 100 Oximetry (%) GENERAL: Awake, alert, and fully oriented, in no acute distress. Speaking in full sentences. On ventimask EYES: extraocular movements intact, sclera anicteric, conjunctiva clear. EARS, NOSE, THROAT: Ears normal, nares patent NECK: Normal range of motion, supple LUNGS: Decreased breath sounds in L lung [place] HEART: Regular rate and rhythm, normal S1 and S2 ABDOMEN: Soft, nontender, not distended, normoactive bowel sounds LOWER EXTREMITIES: warm, well-perfused. No peripheral edema. NEUROLOGICAL: Cranial nerves II-XII grossly intact. Normal speech. Gait not observed. PSYCHIATRIC: Cooperative. Good eye contact. Appropriate mood and affect. SKIN: Warm, dry Laboratory Results - last 24 hr 06/12/18 06/12/18 06/12/18 05:45 05:45 05:45 WBC 36.5 H* RBC 3.43 L Hgb 7.5 L Hct 24.8 L MCV 72.5 L MCH 22.0 L MCHC 30.3 L RDW 16.0 H Plt Count 58 L D MPV 9.1 Absolute Neuts (auto) 28.9 H Total Counted 100 Neutrophils % No Result Required. Neutrophils % (Manual) 71.0 Band Neutrophils % 15.0 Lymphocytes % No Result Required. Lymphocytes % (Manual) 7.0 L D Monocytes % (Manual) 2 L D Eosinophils % (Manual) 1.0 Nucleated RBC % 0 Metamyelocytes 4 H D Smudge Cells Few Hypochromia 2+ Platelet Estimate Decreased Platelet Comment No clumping noted Anisocytosis 1+ Sodium 152 H Potassium 4.7 Chloride 113 H Carbon Dioxide 32 Anion Gap 7 L BUN 61 H Creatinine 1.5 H Creat Clearance w eGFR 35.54 Random Glucose 88 Calcium 8.4 L Random Vancomycin 12.8 L Active Medications Generic Name Dose Route Start Last Admin Trade Name Freq PRN Reason Stop Dose Admin Acetaminophen 650 mg 06/12/18 17:35 Tylenol - PO Q6H PRN PAIN LEVEL 6-10 Albuterol Sulfate 1 amp 06/12/18 17:35 06/12/18 19:01 Ventolin 0.083% Nebulizer Soln - NEB 1 amp Q1H PRN Administration SHORT OF BREATH/WHEEZING Chlorhexidine Gluconate 1 applic 06/12/18 22:00 Hibiclens For Decolonization - TP HS [facility] Diltiazem HCl 30 mg 06/12/18 18:00 06/12/18 18:01 Cardizem - PO 30 mg Q6HPO [facility]ACH[facility] Administration Enoxaparin Sodium 40 mg 06/13/18 10:00 Lovenox - SQ DAILY [facility] Ergocalciferol 50,000 unit 06/15/18 10:00 Drisdol - PO Q7D@1000 [facility]ACH[facility] Ferrous Sulfate 325 mg 06/13/18 10:00 Feosol - PO DAILY [facility] Folic Acid 1 mg 06/13/18 10:00 Folic Acid - PO DAILY [facility] Vancomycin HCl 1,000 mg/ 250 mls @ 200 mls/hr 06/13/18 14:00 Dextrose IVPB Q24H [facility]ACHARY Protocol Piperacillin Sod/Tazobactam 50 mls @ 100 mls/hr 06/12/18 18:00 06/12/18 18:00 Sod 3.375 gm/ Dextrose IVPB 100 mls/hr Q8H-IV [facility] Administration Protocol Lorazepam 0.5 mg 06/12/18 17:35 Ativan Injection - IVPUSH Q6H PRN ANXIETY Methylprednisolone Sodium Succinate 40 mg 06/12/18 22:00 Solu-Medrol - IVPUSH BID [facility] Montelukast Sodium 10 mg 06/12/18 22:00 Singulair - PO HS [facility] Mupirocin 1 applic 06/12/18 22:00 Bactroban Ointment (For Decolonization) - NS 06/16/18 21:59 BID [facility] Pantoprazole Sodium 20 mg 06/13/18 10:00 Protonix - PO DAILY [facility] Polyethylene Glycol 17 gm 06/12/18 17:35 Miralax (For Daily Use) - PO DAILY PRN CONSTIPATION Roflumilast 500 mcg 06/13/18 10:00 Daliresp - PO DAILY [facility] Tiotropium [place] 2 puff 06/13/18 10:00 Spiriva Respimat IH DAILY [facility] ASSESSMENT/PLAN: 58 y/o w/PMH of COPD (on home O2 3L), chronic anemia, HTN initially admitted to [facility] for COPD exacerbation. Hospital course was complicated by HAP requiring bipap and now in the ICU. HAP - L lung involvement Acute on chronic COPD exacerbation HTN Chronic Microcytic Anemia RAOUL Soft stool Deconditioning from hospitalization -c/w vanco/zosyn. ID on board. f/u CXR in AM. -solumedrol 40 mg IV bid. Continue to taper. -c/w roflumilast, tiotropium, singulair, alb neb -c/w cardizem -c/w folic acid and iron -Monitor BUN/Cr, currently improving -f/u C. Diff studies -DVT ppx: lovenox -GI ppx: Protonix 20 mg po qd -PT for deconditioning -FEN: No fluids for now. Monitor electrolytes - Hypernatremia, monitor, consider fluids or increasing free water if not improving. Sodium controlled diet. -Dispo: monitor in ICU. Visit type - Emergency Visit Emergency Visit: Yes ED Registration Date: 05/27/18 Care time: The patient presented to the Emergency Department on the above date and was hospitalized for further evaluation of their emergent condition. - New Patient This patient is new to me today: Yes Date on this admission: 06/12/18 - Critical Care Critical Care patient: Yes Total Critical Care Time (in minutes): 35 Critical Care Statement: The care of this patient involved high complexity decision making to prevent further life threatening deterioration of the patient 's condition and/or to evaluate & treat vital organ system(s) failure or risk of failure.
[2018-06-12] MEDS: MUPIROCIN 2% TOPICAL OINTMENT FOR DECOLONIZATION NS SCH (21:33)
[2018-06-12] MEDS: MONTELUKAST NA 10 MG TABLET PO SCH (21:33)
[2018-06-12] MEDS: CHLORHEXIDINE GLUCONATE 4% CLEANSER FOR DECOLONIZATION TP SCH (21:34)
[2018-06-12] MEDS: LORazepam 2 MG/ML SDV VIAL IVPUSH PRN (21:34)
[2018-06-12] MEDS ORDERED: MUPIROCIN 2% TOPICAL OINTMENT FOR DECOLONIZATION NS SCH (22:00)
[2018-06-12] MEDS ORDERED: CHLORHEXIDINE GLUCONATE 4% CLEANSER FOR DECOLONIZATION TP SCH (22:00)
[2018-06-13] MEDS: dilTIAZem HCL 30 MG TABLET (FP) PO SCH ×4 (00:08→18:30)
[2018-06-13] MEDS: PIPERACILLIN/TAZOB 3.375 GM 3.375 GM in DEXTROSE 5%-WATER - 50 ML IVPB SCH ×3 (01:01→19:00)
[2018-06-13] MEDS ORDERED: HEMOQUE TEST 1 EACH EACH ONE (01:05)
[2018-06-13] MEDS: ALBUTEROL SO4 0.083% IH SOL 2.5 MG/3 ML VIAL.NEB. NEB PRN ×5 (01:37→20:12)
[2018-06-13 05:51] LABS: BASO % 0.3 % (0-2.0); EOS % 0.1 % (0-4.5); HEMATOCRIT 25.2 % (32.4-45.2); HEMOGLOBIN 7.7 GM/dL (10.7-15.3); LYMPH % 0.7 % (8-40); MCH 22.2 pg (25.7-33.7); MCHC 30.6 g/dl (32.0-36.0); MEAN CELL VOLUME 72.6 fl (80-96); MEAN PLT VOLUME 10.6 fl (7.5-11.1); MONO % 2.8 % (3.8-10.2); NEUT % 96.1 % (42.8-82.8); PLATELET COUNT 62 K/MM3 (134-434); RBC 3.46 M/mm3 (3.60-5.2); RDW 16.2 % (11.6-15.6)
[2018-06-13 07:33] LABS: ALBUMIN 1.8 g/dl (3.4-5.0); ALK PHOS 69 U/L (45-117); ANION GAP 4 MMOL/L (8-16); BILIRUBIN,TOTAL 0.3 mg/dL (0.2-1); BLOOD UREA NITROGEN 51 mg/dL (7-18); CALCIUM 8.6 mg/dL (8.5-10.1); CHLORIDE 110 mmol/L (98-107); CO2 33 mmol/L (21-32); CREATININE 1.3 mg/dL (0.55-1.3); GLUCOSE,RANDOM 123 mg/dL (74-106); MAGNESIUM 2.3 mg/dL (1.8-2.4); PHOSPHOROUS 4.8 mg/dL (2.5-4.9); POTASSIUM 4.6 mmol/L (3.5-5.1); SGOT/AST 22 U/L (15-37); SGPT/ALT 36 U/L (13-61); SODIUM 148 mmol/L (136-145); TOT PROT 5.1 g/dl (6.4-8.2)
[2018-06-13] MEDS ORDERED: DEXTROSE 5%-WATER - 50 ML IVPB ONE ×3 (09:28→23:03)
[2018-06-13] MEDS ORDERED: PIPERACILLIN/TAZOBACTAM 3.375 GM VIAL IVPB ONE ×3 (09:28→23:03)
[2018-06-13] MEDS ORDERED: PT OWN MED DRAWER 7, Y5N ONE ×2 (09:28→13:30)
[2018-06-13] MEDS: MUPIROCIN 2% TOPICAL OINTMENT FOR DECOLONIZATION NS SCH ×2 (10:15→21:11)
[2018-06-13] MEDS: TIOTROPIUM BROMIDE 2.5 MCG (SPIRIVA) RESPIMAT INHALER IH SCH (10:16)
[2018-06-13] MEDS: FOLIC ACID 1 MG TABLET (FP) PO SCH (10:17)
[2018-06-13] MEDS: FERROUS SO4 325 MG TABLET (FP) PO SCH (10:17)
[2018-06-13] MEDS: methylPREDNISolone NA SUCC 40 MG/1 ML VIAL IVPUSH SCH ×2 (10:17→21:10)
[2018-06-13] MEDS: PANTOPRAZOLE 20 MG TABLET (FP) PO SCH (10:17)
[2018-06-13] MEDS: ENOXAPARIN NA (PORCINE) 40 MG/0.4 ML DISP.SYRIN SQ SCH (10:17)
[2018-06-13] MEDS: ROFLUMILAST 500 MCG TABLET PO SCH (10:18)
--- NOTE | 2018-06-13 11:40 | PN ---
Progress Note (short form) - Note Progress Note: remains on bipap-now in ICU alert Vital Signs Period Temp Pulse Resp BP Sys/Echevarria Pulse Ox Last 24 Hr 98 F-98.9 F 72-106 19-30 94-161/55-77 99-100 cor-rrr lungs crackles left base abd soft,nt ext no edema CBC, BMP 06/13/18 05:30 06/13/18 05:30 Microbiology 06/11/18 17:49 Sputum - Expectorated Gram Stain - Final 06/11/18 17:49 Sputum - Expectorated Sputum Culture - Preliminary Non Lactose Fermenting Gnb 06/10/18 18:00 Blood - Peripheral Venous Blood Culture - Preliminary NO GROWTH OBTAINED AFTER 48 HOURS, INCUBATION TO CONTINUE FOR 3 DAYS. 06/10/18 17:00 Blood - Peripheral Venous Blood Culture - Preliminary NO GROWTH OBTAINED AFTER 48 HOURS, INCUBATION TO CONTINUE FOR 3 DAYS. 05/27/18 17:42 Blood - Peripheral Venous Blood Culture - Final NO GROWTH AFTER 5 DAYS INCUBATION 05/27/18 17:42 Blood - Peripheral Venous Blood Culture - Final NO GROWTH AFTER 5 DAYS INCUBATION Current Medications Acetaminophen (Tylenol -) 650 mg PO Q6H PRN PRN Reason: PAIN LEVEL 6-10 Last Admin: 06/13/18 01:30 Dose: 650 mg Albuterol Sulfate (Ventolin 0.083% Nebulizer Soln -) 1 amp NEB Q1H PRN PRN Reason: SHORT OF BREATH/WHEEZING Last Admin: 06/13/18 10:49 Dose: 1 amp Chlorhexidine Gluconate (Hibiclens For Decolonization -) 1 applic TP HS [facility] Last Admin: 06/12/18 21:34 Dose: 1 applic Diltiazem HCl (Cardizem -) 30 mg PO Q6HPO [facility] Last Admin: 06/13/18 05:09 Dose: 30 mg Enoxaparin Sodium (Lovenox -) 40 mg SQ DAILY [facility] Last Admin: 06/13/18 10:17 Dose: 40 mg Ergocalciferol (Drisdol -) 50,000 unit PO Q7D@1000 [facility] Ferrous Sulfate (Feosol -) 325 mg PO DAILY [facility] Last Admin: 06/13/18 10:17 Dose: 325 mg Folic Acid (Folic Acid -) 1 mg PO DAILY [facility] Last Admin: 06/13/18 10:17 Dose: 1 mg Vancomycin HCl 1,000 mg/ (Dextrose) 250 mls @ 200 mls/hr IVPB Q24H [facility]; Protocol Piperacillin Sod/Tazobactam (Sod 3.375 gm/ Dextrose) 50 mls @ 100 mls/hr IVPB Q8H-IV [facility]ARY; Protocol Last Admin: 06/13/18 10:18 Dose: 100 mls/hr Lorazepam (Ativan Injection -) 0.5 mg IVPUSH Q6H PRN PRN Reason: ANXIETY Last Admin: 06/12/18 21:34 Dose: 0.5 mg Methylprednisolone Sodium Succinate (Solu-Medrol -) 40 mg IVPUSH BID [facility] Last Admin: 06/13/18 10:17 Dose: 40 mg Montelukast Sodium (Singulair -) 10 mg PO HS [facility] Last Admin: 06/12/18 21:33 Dose: 10 mg Mupirocin (Bactroban Ointment (For Decolonization) -) 1 applic NS BID [facility] Stop: 06/16/18 21:59 Last Admin: 06/13/18 10:15 Dose: 1 applic Pantoprazole Sodium (Protonix -) 20 mg PO DAILY [facility] Last Admin: 06/13/18 10:17 Dose: 20 mg Polyethylene Glycol (Miralax (For Daily Use) -) 17 gm PO DAILY PRN PRN Reason: CONSTIPATION Roflumilast (Daliresp -) 500 mcg PO DAILY [facility] Last Admin: 06/13/18 10:18 Dose: 500 mcg Tiotropium [place] (Spiriva Respimat) 2 puff IH DAILY [facility] Last Admin: 06/13/18 10:16 Dose: 2 puff a/p sepsis HAP-LLL infiltrate unchanged RAOUL-improved +troponins thrombocytopenia- most likely due to sepsis- stable today leukocytosis improving copd home oxygen continue zosyn, vancomycin overall prognosis guarded Problem List - Problems (1) Sepsis Code(s): A41.9 - SEPSIS, UNSPECIFIED ORGANISM (2) Acute on chronic respiratory failure with hypoxia and hypercapnia Code(s): J96.21 - ACUTE AND CHRONIC RESPIRATORY FAILURE WITH HYPOXIA; J96.22 - ACUTE AND CHRONIC RESPIRATORY FAILURE WITH HYPERCAPNIA (3) Hospital acquired PNA Code(s): J18.9 - PNEUMONIA, UNSPECIFIED ORGANISM
--- NOTE | 2018-06-13 12:10 | PN ---
Teaching Attending Note Name of Resident: Long Petersen ATTENDING PHYSICIAN STATEMENT I saw and evaluated the patient. I reviewed the resident's note and discussed the case with the resident. I agree with the resident's findings and plan as documented. SUBJECTIVE: Patient seen and examined in the ICU. Awake and alert on NIPPV support. No CP. SOB is better on NIPPV Still dyspneic at rest. Intake & Output 06/10/18 06/11/18 06/12/18 06/13/18 23:59 23:59 23:59 23:59 Intake Total 1050 3000 1020 170 Output Total 400 Balance 1050 2600 1020 170 Weight 145 lb 8 oz Last Vital Signs Temp Pulse Resp BP Pulse Ox 98.4 F 93 H 29 H 161/74 100 06/13/18 10:00 06/13/18 10:00 06/13/18 10:00 06/13/18 10:00 06/13/18 10:48 Active Medications Acetaminophen (Tylenol -) 650 mg PO Q6H PRN PRN Reason: PAIN LEVEL 6-10 Last Admin: 06/13/18 01:30 Dose: 650 mg Albuterol Sulfate (Ventolin 0.083% Nebulizer Soln -) 1 amp NEB Q1H PRN PRN Reason: SHORT OF BREATH/WHEEZING Last Admin: 06/13/18 10:49 Dose: 1 amp Chlorhexidine Gluconate (Hibiclens For Decolonization -) 1 applic TP HS [facility] Last Admin: 06/12/18 21:34 Dose: 1 applic Diltiazem HCl (Cardizem -) 30 mg PO Q6HPO [facility] Last Admin: 06/13/18 05:09 Dose: 30 mg Enoxaparin Sodium (Lovenox -) 40 mg SQ DAILY [facility] Last Admin: 06/13/18 10:17 Dose: 40 mg Ergocalciferol (Drisdol -) 50,000 unit PO Q7D@1000 [facility] Ferrous Sulfate (Feosol -) 325 mg PO DAILY [facility] Last Admin: 06/13/18 10:17 Dose: 325 mg Folic Acid (Folic Acid -) 1 mg PO DAILY [facility] Last Admin: 06/13/18 10:17 Dose: 1 mg Vancomycin HCl 1,000 mg/ (Dextrose) 250 mls @ 200 mls/hr IVPB Q24H [facility]; Protocol Piperacillin Sod/Tazobactam (Sod 3.375 gm/ Dextrose) 50 mls @ 100 mls/hr IVPB Q8H-IV [facility]; Protocol Last Admin: 06/13/18 10:18 Dose: 100 mls/hr Lorazepam (Ativan Injection -) 0.5 mg IVPUSH Q6H PRN PRN Reason: ANXIETY Last Admin: 06/12/18 21:34 Dose: 0.5 mg Methylprednisolone Sodium Succinate (Solu-Medrol -) 40 mg IVPUSH BID [facility] Last Admin: 06/13/18 10:17 Dose: 40 mg Montelukast Sodium (Singulair -) 10 mg PO HS [facility] Last Admin: 06/12/18 21:33 Dose: 10 mg Mupirocin (Bactroban Ointment (For Decolonization) -) 1 applic NS BID [facility] Stop: 06/16/18 21:59 Last Admin: 06/13/18 10:15 Dose: 1 applic Pantoprazole Sodium (Protonix -) 20 mg PO DAILY [facility] Last Admin: 06/13/18 10:17 Dose: 20 mg Polyethylene Glycol (Miralax (For Daily Use) -) 17 gm PO DAILY PRN PRN Reason: CONSTIPATION Roflumilast (Daliresp -) 500 mcg PO DAILY [facility] Last Admin: 06/13/18 10:18 Dose: 500 mcg Tiotropium [place] (Spiriva Respimat) 2 puff IH DAILY [facility] Last Admin: 06/13/18 10:16 Dose: 2 puff Constitutional: Yes: Mildly dyspneic at rest on NIPPV, Awake and alert Eyes: Yes: WNL HENT: Yes: WNL Neck: Yes: WNL Cardiovascular: Yes: Regular Rate and Rhythm, S1, S2 Respiratory: Yes: diminished air entry throughout, no active wheezing, scattered Rhonchi Gastrointestinal: Yes: Normal Bowel Sounds, Soft Extremities: Yes: WNL Edema: No Labs: Laboratory Results - last 24 hr 06/13/18 06/13/18 05:30 05:30 WBC 24.0 H RBC 3.46 L Hgb 7.7 L Hct 25.2 L MCV 72.6 L MCH 22.2 L MCHC 30.6 L RDW 16.2 H Plt Count 62 L MPV 10.6 D Absolute Neuts (auto) 23.0 H Neutrophils % 96.1 H Lymphocytes % 0.7 L Monocytes % 2.8 L Eosinophils % 0.1 D Basophils % 0.3 Nucleated RBC % 0 Sodium 148 H Potassium 4.6 Chloride 110 H Carbon Dioxide 33 H Anion Gap 4 L BUN 51 H Creatinine 1.3 Creat Clearance w eGFR 41.92 Random Glucose 123 H Calcium 8.6 Phosphorus 4.8 Magnesium 2.3 Total Bilirubin 0.3 AST 22 ALT 36 Alkaline Phosphatase 69 Total Protein 5.1 L Albumin 1.8 L Problem List - Problems (1) COPD exacerbation Code(s): J44.1 - CHRONIC OBSTRUCTIVE PULMONARY DISEASE W (ACUTE) EXACERBATION (2) Shortness of breath Code(s): R06.02 - SHORTNESS OF BREATH (3) Bronchiectasis Code(s): J47.9 - BRONCHIECTASIS, UNCOMPLICATED (4) Chronic respiratory failure with hypoxia Code(s): J96.11 - CHRONIC RESPIRATORY FAILURE WITH HYPOXIA (5) Emphysema lung Code(s): J43.9 - EMPHYSEMA, UNSPECIFIED (6) Supplemental oxygen dependent Code(s): Z99.81 - DEPENDENCE ON SUPPLEMENTAL OXYGEN Assessment/Plan Acute COPD Exacerbation Acute ON Chronic Hypoxic/Hypercapneic Respiratory Failure CHIKI pneumonia HTN RAOUL ANEMIA + TROPONIN - medrol at current dose - Trial of NIPPV - ABX as per ID - inhaled bronchodilators standing and PRN - O2 to keep SpO2 90% - daliresp - DVT prophylaxis - Follow chest x-rays - Normal transfusion threshold Dr Carty Critical care time spent in reviewing chart, evaluating patient and formulating plan - 36 minutes.
[2018-06-13 12:34] LABS: ANISOCYTOSIS 2+; MACROCYTOSIS 0; PLATELET ESTIMATE DECREASED; TARGET CELLS 3+
--- NOTE | 2018-06-13 13:36 | PN ---
Teaching Attending Note Name of Resident: Babs Flores ATTENDING PHYSICIAN STATEMENT I saw and evaluated the patient. I reviewed the resident's note and discussed the case with the resident. I agree with the resident's findings and plan as documented. SUBJECTIVE:breathing is slight better today. states she gets tired easily. denies Cp, fever, chills, cough, N/V/C/D OBJECTIVE: Last Vital Signs Temp Pulse Resp BP Pulse Ox 98.4 F 113 H 28 H 152/60 100 06/13/18 10:00 06/13/18 12:00 06/13/18 12:00 06/13/18 12:00 06/13/18 10:48 General NAD Lungs diffuse wheezing. scattered rhonchi. ASSESSMENT AND PLAN: 58yo F with PMH HTn, COPD on home O2 (3L NC) and anemia presented with SOB and cough 1. Acute on chronic hypercapnic respiratory distress- likely due to HCAP. clinically looks much improved. on 40% mask saturating 99%. bipap prn and HS. supplemental oxygen to maintain spO2 >88%. accepted to [place] for pulmonary rehab 2. sepsis due to HCAP- afebrile. leukocytosis trending down. Sputum cx has pending organism. f/u official report. on vanco by level/zosyn day 4. ID on board. 3. Acute on chronic COPD exacerbation- likely precipitated by harsh chemical smells. now worsening with developing PNA. cont current steroid dosing, titrate oxygen. pulmonary on board. nebs, inhalers 4. Thrombocytopenia- due to sepsis. stable. no signs of bleeding 5. Hypernatremia- due to lack of PO and IVF. not symptomatic. now eating well. off IVF. trending down. monitor. 6. HTN urgency-now normotensive. on dilt 7. Acute on CKD- likely due to sepsis and hypoperfusion. now improving. avoid nephrotoxic agents 8. Normocytic anemia- was likely dehydrated on presentation. Hgb stable. no indication for txn at this time. on iron supplements 9. DVT ppx- hep sq 10. MICU monitoring due to tennuous breathing status The care of this patient involved high complexity decision making to prevent further life threatening deterioration of the patient's condition and/or to evaluate & treat vital organ system(s) failure or risk of failure. 35 minutes
--- NOTE | 2018-06-13 13:36 | PN ---
Physical Exam: SUBJECTIVE: Patient seen and examined at bedside. On BiPAP at time of encounter , amenable to trial of ventimask. No longer c/o cough. OBJECTIVE: Vital Signs Period Temp Pulse Resp BP Sys/Echevarria Pulse Ox Last 24 Hr 98.1 F-98.9 F 72-113 19-30 94-161/55-77 99-100 GENERAL: Awake, alert, and fully oriented, in no acute distress. Speaking in full sentences. On BiPAP EYES: extraocular movements intact, sclera anicteric, conjunctiva clear. EARS, NOSE, THROAT: Ears normal, nares patent NECK: Normal range of motion, supple LUNGS: Decreased breath sounds and crackles in L lung horner HEART: Regular rate and rhythm, normal S1 and S2 ABDOMEN: Soft, nontender, not distended, normoactive bowel sounds LOWER EXTREMITIES: warm, well-perfused. No peripheral edema. NEUROLOGICAL: Cranial nerves II-XII grossly intact. Normal speech. Gait not observed. PSYCHIATRIC: Cooperative. Good eye contact. Appropriate mood and affect. SKIN: Warm, dry Laboratory Results - last 24 hr 06/13/18 06/13/18 05:30 05:30 WBC 24.0 H RBC 3.46 L Hgb 7.7 L Hct 25.2 L MCV 72.6 L MCH 22.2 L MCHC 30.6 L RDW 16.2 H Plt Count 62 L MPV 10.6 D Absolute Neuts (auto) 23.0 H Neutrophils % 96.1 H Neutrophils % (Manual) 98.0 H Band Neutrophils % 0.0 Lymphocytes % 0.7 L Lymphocytes % (Manual) 1.0 L D Monocytes % 2.8 L Monocytes % (Manual) 1 L Eosinophils % 0.1 D Eosinophils % (Manual) 0.0 Basophils % 0.3 Basophils % (Manual) 0.0 Myelocytes % (Man) 0 Promyelocytes % (Man) 0 Blast Cells % (Manual) 0 Nucleated RBC % 0 Metamyelocytes 0 D Hypochromia 3+ Platelet Estimate Decreased Platelet Comment Present Polychromasia 0 Poikilocytosis 3+ Anisocytosis 2+ Microcytosis 2+ Macrocytosis 0 Target Cells 3+ Sodium 148 H Potassium 4.6 Chloride 110 H Carbon Dioxide 33 H Anion Gap 4 L BUN 51 H Creatinine 1.3 Creat Clearance w eGFR 41.92 Random Glucose 123 H Calcium 8.6 Phosphorus 4.8 Magnesium 2.3 Total Bilirubin 0.3 AST 22 ALT 36 Alkaline Phosphatase 69 Total Protein 5.1 L Albumin 1.8 L Active Medications Generic Name Dose Route Start Last Admin Trade Name Freq PRN Reason Stop Dose Admin Acetaminophen 650 mg 06/12/18 17:35 06/13/18 01:30 Tylenol - PO 650 mg Q6H PRN Administration PAIN LEVEL 6-10 Albuterol Sulfate 1 amp 06/12/18 17:35 06/13/18 10:49 Ventolin 0.083% Nebulizer Soln - NEB 1 amp Q1H PRN Administration SHORT OF BREATH/WHEEZING Chlorhexidine Gluconate 1 applic 06/12/18 22:00 06/12/18 21:34 Hibiclens For Decolonization - TP 1 applic HS ZACHARY Administration Diltiazem HCl 30 mg 06/12/18 18:00 06/13/18 05:09 Cardizem - PO 30 mg Q6HPO ZACHARY Administration Enoxaparin Sodium 40 mg 06/13/18 10:00 06/13/18 10:17 Lovenox - SQ 40 mg DAILY ZACHARY Administration Ergocalciferol 50,000 unit 06/15/18 10:00 Drisdol - PO Q7D@1000 ZACHARY Ferrous Sulfate 325 mg 06/13/18 10:00 06/13/18 10:17 Feosol - PO 325 mg DAILY ZACHARY Administration Folic Acid 1 mg 06/13/18 10:00 06/13/18 10:17 Folic Acid - PO 1 mg DAILY ZACHARY Administration Vancomycin HCl 1,000 mg/ 250 mls @ 200 mls/hr 06/13/18 14:00 Dextrose IVPB Q24H ZACHARY Protocol Piperacillin Sod/Tazobactam 50 mls @ 100 mls/hr 06/12/18 18:00 06/13/18 10:18 Sod 3.375 gm/ Dextrose IVPB 100 mls/hr Q8H-IV ZACHARY Administration Protocol Lorazepam 0.5 mg 06/12/18 17:35 06/12/18 21:34 Ativan Injection - IVPUSH 0.5 mg Q6H PRN Administration ANXIETY Methylprednisolone Sodium Succinate 40 mg 06/12/18 22:00 06/13/18 10:17 Solu-Medrol - IVPUSH 40 mg BID ZACHARY Administration Montelukast Sodium 10 mg 06/12/18 22:00 06/12/18 21:33 Singulair - PO 10 mg HS ZACHARY Administration Mupirocin 1 applic 06/12/18 22:00 06/13/18 10:15 Bactroban Ointment (For Decolonization) - NS 06/16/18 21:59 1 applic BID ZACHARY Administration Pantoprazole Sodium 20 mg 06/13/18 10:00 06/13/18 10:17 Protonix - PO 20 mg DAILY ZACHARY Administration Polyethylene Glycol 17 gm 06/12/18 17:35 Miralax (For Daily Use) - PO DAILY PRN CONSTIPATION Roflumilast 500 mcg 06/13/18 10:00 06/13/18 10:18 Daliresp - PO 500 mcg DAILY ZACHARY Administration Tiotropium [place] 2 puff 06/13/18 10:00 06/13/18 10:16 Spiriva Respimat IH 2 puff DAILY ZACHARY Administration ASSESSMENT/PLAN: 58 y/o F w/PMHx COPD (on home O2 3L), chronic anemia, HTN initially admitted to [facility] for COPD exacerbation, hospital course complicated by HAP requiring bipap and now in ICU #HAP - ventimask @ 40% and BiPAP PRN - repeat CXR showed CHIKI improvement, continuing consolidation in LLL - WBC downtrending to 24 - cont Vanc/Zosyn w/ ID following - blood cultures negative. #COPD exacerbation - c/w roflumilast, tiotropium, singulair, alb neb - O2 3LNC to keep SpO2 90% - solumedrol 40 mg IV bid #Anemia - Hb stable since yesterday, now 7.7 - cont folate and iron - monitor CBC, transfusion threshhold 7 #RAOUL -resolving -BUN/Cr improved to 51/1.3 #HTN - Cardizem 30mg q6h - Monitor BP closely #Soft stool - C diff negative preliminarily #deconditioning - PT #FEN - not on fluids - lytes wnl - Sodium controlled diet #PPx - Lovenox 40mg sq daily #Dispo - ICU Visit type - Emergency Visit Emergency Visit: No - New Patient This patient is new to me today: Yes Date on this admission: 06/13/18 - Critical Care Critical Care patient: Yes Total Critical Care Time (in minutes): 40 Critical Care Statement: The care of this patient involved high complexity decision making to prevent further life threatening deterioration of the patient 's condition and/or to evaluate & treat vital organ system(s) failure or risk of failure.
[2018-06-13] MEDS: VANCOMYCIN 1,000 MG in DEXTROSE 5%-WATER - 250 ML IVPB SCH (15:05)
--- NOTE | 2018-06-13 16:59 | PN ---
Physical Exam: SUBJECTIVE: Patient seen and examined at bedside this morning. Patient has been on bipap overnight. No new complaints. OBJECTIVE: Vital Signs Period Temp Pulse Resp BP Sys/Echevarria Pulse Ox Last 24 Hr 98.1 F-98.9 F 72-113 19-30 94-161/41-74 98-100 GENERAL: The patient is awake, alert, and fully oriented, on bipap. HEAD: Normal with no signs of trauma. EYES: PERRLA, EOMI, sclera anicteric, conjunctiva clear. ENT: Ears normal, nares patent, oropharynx clear without exudates, moist mucous membranes. NECK: Trachea midline, full range of motion, supple. LUNGS: + diffuse rhonchi bilaterally, +bibasilar crackles. HEART: Tachycardic, normal S1, S2 without murmur, rub or gallop. ABDOMEN: Soft, nontender, nondistended, normoactive bowel sounds. EXTREMITIES: 2+ pulses, warm, well-perfused, no edema. NEUROLOGICAL: Cranial nerves II through XII grossly intact. Normal speech, normal gait. PSYCH: Normal mood, normal affect. SKIN: Warm, dry, normal turgor, no rashes or lesions noted. Laboratory Results - last 24 hr 06/13/18 06/13/18 06/13/18 05:30 05:30 15:30 WBC 24.0 H RBC 3.46 L Hgb 7.7 L Hct 25.2 L MCV 72.6 L MCH 22.2 L MCHC 30.6 L RDW 16.2 H Plt Count 62 L MPV 10.6 D Absolute Neuts (auto) 23.0 H Neutrophils % 96.1 H Neutrophils % (Manual) 98.0 H Band Neutrophils % 0.0 Lymphocytes % 0.7 L Lymphocytes % (Manual) 1.0 L D Monocytes % 2.8 L Monocytes % (Manual) 1 L Eosinophils % 0.1 D Eosinophils % (Manual) 0.0 Basophils % 0.3 Basophils % (Manual) 0.0 Myelocytes % (Man) 0 Promyelocytes % (Man) 0 Blast Cells % (Manual) 0 Nucleated RBC % 0 Metamyelocytes 0 D Hypochromia 3+ Platelet Estimate Decreased Platelet Comment Present Polychromasia 0 Poikilocytosis 3+ Anisocytosis 2+ Microcytosis 2+ Macrocytosis 0 Target Cells 3+ Sodium 148 H Potassium 4.6 Chloride 110 H Carbon Dioxide 33 H Anion Gap 4 L BUN 51 H Creatinine 1.3 Creat Clearance w eGFR 41.92 Random Glucose 123 H Calcium 8.6 Phosphorus 4.8 Magnesium 2.3 Total Bilirubin 0.3 AST 22 ALT 36 Alkaline Phosphatase 69 Total Protein 5.1 L Albumin 1.8 L Vancomycin Pre-Dose 9.4 L Active Medications Generic Name Dose Route Start Last Admin Trade Name Freq PRN Reason Stop Dose Admin Acetaminophen 650 mg 06/12/18 17:35 06/13/18 01:30 Tylenol - PO 650 mg Q6H PRN Administration PAIN LEVEL 6-10 Albuterol Sulfate 1 amp 06/12/18 17:35 06/13/18 14:29 Ventolin 0.083% Nebulizer Soln - NEB 1 amp Q1H PRN Administration SHORT OF BREATH/WHEEZING Chlorhexidine Gluconate 1 applic 06/12/18 22:00 06/12/18 21:34 Hibiclens For Decolonization - TP 1 applic HS ZACHARY Administration Diltiazem HCl 30 mg 06/12/18 18:00 06/13/18 13:25 Cardizem - PO 30 mg Q6HPO ZACHARY Administration Enoxaparin Sodium 40 mg 06/13/18 10:00 06/13/18 10:17 Lovenox - SQ 40 mg DAILY ZACHARY Administration Ergocalciferol 50,000 unit 06/15/18 10:00 Drisdol - PO Q7D@1000 ZACHARY Ferrous Sulfate 325 mg 06/13/18 10:00 06/13/18 10:17 Feosol - PO 325 mg DAILY ZACHARY Administration Folic Acid 1 mg 06/13/18 10:00 06/13/18 10:17 Folic Acid - PO 1 mg DAILY ZACHARY Administration Vancomycin HCl 1,000 mg/ 250 mls @ 200 mls/hr 06/13/18 14:00 06/13/18 15:05 Dextrose IVPB 200 mls/hr Q24H ZACHARY Administration Protocol Piperacillin Sod/Tazobactam 50 mls @ 100 mls/hr 06/12/18 18:00 06/13/18 10:18 Sod 3.375 gm/ Dextrose IVPB 100 mls/hr Q8H-IV ZACHARY Administration Protocol Lorazepam 0.5 mg 06/12/18 17:35 06/12/18 21:34 Ativan Injection - IVPUSH 0.5 mg Q6H PRN Administration ANXIETY Methylprednisolone Sodium Succinate 40 mg 06/12/18 22:00 06/13/18 10:17 Solu-Medrol - IVPUSH 40 mg BID ZACHARY Administration Montelukast Sodium 10 mg 06/12/18 22:00 06/12/18 21:33 Singulair - PO 10 mg HS ZACHARY Administration Mupirocin 1 applic 06/12/18 22:00 06/13/18 10:15 Bactroban Ointment (For Decolonization) - NS 06/16/18 21:59 1 applic BID ZACHARY Administration Pantoprazole Sodium 20 mg 06/13/18 10:00 06/13/18 10:17 Protonix - PO 20 mg DAILY ZACHARY Administration Polyethylene Glycol 17 gm 06/12/18 17:35 Miralax (For Daily Use) - PO DAILY PRN CONSTIPATION Roflumilast 500 mcg 06/13/18 10:00 06/13/18 10:18 Daliresp - PO 500 mcg DAILY ZACHARY Administration Tiotropium [place] 2 puff 06/13/18 10:00 06/13/18 10:16 Spiriva Respimat IH 2 puff DAILY ZACHARY Administration Imaging: Chest X-Ray (05/27/18): No significant interval change. Persistent bilateral increased interstitial markings. Differential diagnosis again includes chronic interstitial lung disease. Cannot rule out noncardiogenic mild pulmonary venous congestion or interstitial infiltrates. Chest X-ray (05/30/18): No acute pathology or significant change. Chest CT scan without contrast (05/31/18): Moderately severe COPD with extensive bilateral bronchiectasis. These findings are unchanged since a previous study of 02/07/18. There is no evidence of acute pathology within the chest. CXR (06/06/18) 2 views of the some minimal degenerative changes with wedging. The soft tissues are intact. The chest reveal a normal-sized heart, normal knob and normal genesis. There are some coarse lung changes. There may be some linear atelectasis/density by the left heart border. Since the prior study 05/30/18, the density by the left heart border has become apparent. This most likely represents a focal area of atelectasis. CXR (06/10/18): New pulmonary consolidation medial aspect of the left upper lung zone obscuring aortic arch. No pleural effusion, or pneumothorax seen. No evidence of vascular congestive changes. CXR (06/13/18): Resolving segmental left upper lobe pneumonia. Left lower lobe pneumonia unchanged. ASSESSMENT/PLAN: Patient is a 58 year old female who presented with shortness of breath and found to be in COPD exacerbation. #Hospital acquired pneumonia : - CXR showed resolving segmental CHIKI PNA, LLL PNA unchanged. - WBC continue to trend down. 24 today. Will repeat CBC. - Patient placed on Bipap. - Patient on NPO. - ID (Dr. Tao) consulted. Recommendations appreciated. - Patient on Zosyn 3.375 gm q8 day 4. - Vancomycin 1000mg q8 day 4. - Pt developed RAOUL, will renally dose Vancomycin - vanc trough level decreased today - 9.4, Repeat vanc trough levels daily while on RAOUL. - blood cultures negative. #Acute on Chronic COPD exacerbation : - may be 2/2 CAP vs inhaled chemicals (house paint) - Pulmonary Consult. Recs appreciated: - Continue NIPPV - Continue solu-medrol dose 40mg to q12h - Duonebs QID - Albuterol PRN - Add Daliresp (500mcg daily) - Symbicort not given. Pt reports allergy to symbicort. - Keep O2 satn >90% - Chest PT BID - Pt has frequent exacerbations, may need to be on chronic low dose steroids at home. #Atypical Chest Pain: midsternal tenderness on palpation, positional - Likely musculoskeletal due to COPD Exac - Troponins negative x1, unlikely cardiac in nature - Tylenol PRN for pain. - Lidocaine patch given which provided significant relief #Microcytic Anemia - likely due to RUBY - now at baseline Hgb - Fe Panel previously showed low Fe, low Fesat, low-normal ferritin - Continue Fe supplements #Hypertension - Cardizem 30mg q6h - Monitor BP closely #FEN - not on fluids - lytes wnl - Sodium controlled diet #Prophylaxis - Lovenox 40mg sq daily #Disposition - Med/Surg - Transfer to ICU for closer monitoring. Visit type - Emergency Visit Emergency Visit: Yes ED Registration Date: 05/27/18 Care time: The patient presented to the Emergency Department on the above date and was hospitalized for further evaluation of their emergent condition. - New Patient This patient is new to me today: Yes Date on this admission: 06/13/18 - Critical Care Critical Care patient: Yes Total Critical Care Time (in minutes): 45 Critical Care Statement: The care of this patient involved high complexity decision making to prevent further life threatening deterioration of the patient 's condition and/or to evaluate & treat vital organ system(s) failure or risk of failure.
[2018-06-13] MEDS: MONTELUKAST NA 10 MG TABLET PO SCH (21:10)
[2018-06-13] MEDS: CHLORHEXIDINE GLUCONATE 4% CLEANSER FOR DECOLONIZATION TP SCH (21:11)
[2018-06-13] MEDS: LORazepam 2 MG/ML SDV VIAL IVPUSH PRN (22:19)
[2018-06-14] MEDS: ALBUTEROL SO4 0.083% IH SOL 2.5 MG/3 ML VIAL.NEB. NEB PRN ×5 (00:10→21:10)
[2018-06-14] MEDS: dilTIAZem HCL 30 MG TABLET (FP) PO SCH ×4 (00:14→18:33)
[2018-06-14] MEDS: PIPERACILLIN/TAZOB 3.375 GM 3.375 GM in DEXTROSE 5%-WATER - 50 ML IVPB SCH ×3 (01:15→19:34)
[2018-06-14 06:53] LABS: BASO % 0.2 % (0-2.0); EOS % 0.1 % (0-4.5); HEMATOCRIT 25.4 % (32.4-45.2); HEMOGLOBIN 7.7 GM/dL (10.7-15.3); LYMPH % 13.6 % (8-40); MCH 22.3 pg (25.7-33.7); MCHC 30.5 g/dl (32.0-36.0); MEAN CELL VOLUME 73.1 fl (80-96); MEAN PLT VOLUME 9.6 fl (7.5-11.1); MONO % 1.5 % (3.8-10.2); NEUT % 84.6 % (42.8-82.8); PLATELET COUNT 62 K/MM3 (134-434); RBC 3.48 M/mm3 (3.60-5.2); RDW 16.4 % (11.6-15.6); WHITE BLOOD COUNT 22.5 K/mm3 (4.0-10.0)
[2018-06-14 07:28] LABS: ALBUMIN 1.8 g/dl (3.4-5.0); ALK PHOS 81 U/L (45-117); ANION GAP 3 MMOL/L (8-16); BILIRUBIN,TOTAL 0.3 mg/dL (0.2-1); BLOOD UREA NITROGEN 51 mg/dL (7-18); CALCIUM 8.8 mg/dL (8.5-10.1); CHLORIDE 109 mmol/L (98-107); CO2 36 mmol/L (21-32); CREATININE 1.1 mg/dL (0.55-1.3); GLUCOSE,RANDOM 155 mg/dL (74-106); MAGNESIUM 2.1 mg/dL (1.8-2.4); PHOSPHOROUS 3.3 mg/dL (2.5-4.9); SGOT/AST 27 U/L (15-37); SGPT/ALT 49 U/L (13-61); SODIUM 148 mmol/L (136-145)
--- NOTE | 2018-06-14 09:08 | PN ---
Physical Exam: SUBJECTIVE: Patient seen and examined at bedside. Breathing subjectively improved, c/o new left lateral chest wall pain. On BiPAP at time of encounter. OBJECTIVE: Vital Signs Period Temp Pulse Resp BP Sys/Echevarria Pulse Ox Last 24 Hr 98.1 F-98.8 F 82-113 24-30 103-168/41-101 98-100 GENERAL: Awake, alert, and fully oriented, tachypneic and in respiratory discomfort. On BiPAP EYES: extraocular movements intact, sclera anicteric, conjunctiva clear. EARS, NOSE, THROAT: Ears normal, nares patent NECK: Normal range of motion, supple LUNGS: Decreased breath sounds and crackles in L lung horner. Tachypneic. Left lateral chest wall pain is not pleuritic or reproducible by palpation. HEART: Tachycardic, normal S1 and S2 ABDOMEN: Soft, nontender, not distended, normoactive bowel sounds LOWER EXTREMITIES: warm, well-perfused. No peripheral edema. NEUROLOGICAL: Cranial nerves II-XII grossly intact. Normal speech. Gait not observed. PSYCHIATRIC: Cooperative. Good eye contact. Appropriate mood and affect. SKIN: Warm, dry Laboratory Results - last 24 hr 06/13/18 06/13/18 06/14/18 05:30 15:30 05:30 WBC RBC Hgb Hct MCV MCH MCHC RDW Plt Count MPV Absolute Neuts (auto) Neutrophils % Neutrophils % (Manual) 98.0 H Band Neutrophils % 0.0 Lymphocytes % Lymphocytes % (Manual) 1.0 L D Monocytes % Monocytes % (Manual) 1 L Eosinophils % Eosinophils % (Manual) 0.0 Basophils % Basophils % (Manual) 0.0 Myelocytes % (Man) 0 Promyelocytes % (Man) 0 Blast Cells % (Manual) 0 Nucleated RBC % 0 Metamyelocytes 0 D Hypochromia 3+ Platelet Estimate Decreased Platelet Comment Present Polychromasia 0 Poikilocytosis 3+ Anisocytosis 2+ Microcytosis 2+ Macrocytosis 0 Target Cells 3+ Sodium Potassium Chloride Carbon Dioxide Anion Gap BUN Creatinine Creat Clearance w eGFR Random Glucose Lactic Acid 1.9 Calcium Phosphorus Magnesium Total Bilirubin AST ALT Alkaline Phosphatase Total Protein Albumin Vancomycin Pre-Dose 9.4 L 06/14/18 06/14/18 05:30 05:30 WBC 22.5 H RBC 3.48 L Hgb 7.7 L Hct 25.4 L MCV 73.1 L MCH 22.3 L MCHC 30.5 L RDW 16.4 H Plt Count 62 L MPV 9.6 Absolute Neuts (auto) 19.0 H Neutrophils % 84.6 H Neutrophils % (Manual) Band Neutrophils % Lymphocytes % 13.6 D Lymphocytes % (Manual) Monocytes % 1.5 L Monocytes % (Manual) Eosinophils % 0.1 Eosinophils % (Manual) Basophils % 0.2 Basophils % (Manual) Myelocytes % (Man) Promyelocytes % (Man) Blast Cells % (Manual) Nucleated RBC % 0 Metamyelocytes Hypochromia Platelet Estimate Platelet Comment Polychromasia Poikilocytosis Anisocytosis Microcytosis Macrocytosis Target Cells Sodium 148 H Potassium 5.0 Chloride 109 H Carbon Dioxide 36 H Anion Gap 3 L BUN 51 H Creatinine 1.1 Creat Clearance w eGFR 50.84 Random Glucose 155 H Lactic Acid Calcium 8.8 Phosphorus 3.3 Magnesium 2.1 Total Bilirubin 0.3 AST 27 ALT 49 Alkaline Phosphatase 81 Total Protein 5.0 L Albumin 1.8 L Vancomycin Pre-Dose Active Medications Generic Name Dose Route Start Last Admin Trade Name Freq PRN Reason Stop Dose Admin Acetaminophen 650 mg 06/12/18 17:35 06/13/18 01:30 Tylenol - PO 650 mg Q6H PRN Administration PAIN LEVEL 6-10 Albuterol Sulfate 1 amp 06/12/18 17:35 06/14/18 05:05 Ventolin 0.083% Nebulizer Soln - NEB 1 amp Q1H PRN Administration SHORT OF BREATH/WHEEZING Chlorhexidine Gluconate 1 applic 06/12/18 22:00 06/13/18 21:11 Hibiclens For Decolonization - TP 1 applic HS ZACHARY Administration Diltiazem HCl 30 mg 06/12/18 18:00 06/14/18 05:03 Cardizem - PO 30 mg Q6HPO ZACHARY Administration Enoxaparin Sodium 40 mg 06/13/18 10:00 06/13/18 10:17 Lovenox - SQ 40 mg DAILY ZACHARY Administration Ergocalciferol 50,000 unit 06/15/18 10:00 Drisdol - PO Q7D@1000 ZACHARY Ferrous Sulfate 325 mg 06/13/18 10:00 06/13/18 10:17 Feosol - PO 325 mg DAILY ZACHARY Administration Folic Acid 1 mg 06/13/18 10:00 06/13/18 10:17 Folic Acid - PO 1 mg DAILY ZACHARY Administration Vancomycin HCl 1,000 mg/ 250 mls @ 200 mls/hr 06/13/18 14:00 06/13/18 15:05 Dextrose IVPB 200 mls/hr Q24H ZACHARY Administration Protocol Piperacillin Sod/Tazobactam 50 mls @ 100 mls/hr 06/12/18 18:00 06/14/18 01:15 Sod 3.375 gm/ Dextrose IVPB 100 mls/hr Q8H-IV ZACHARY Administration Protocol Lorazepam 0.5 mg 06/12/18 17:35 06/13/18 22:19 Ativan Injection - IVPUSH 0.5 mg Q6H PRN Administration ANXIETY Methylprednisolone Sodium Succinate 40 mg 06/12/18 22:00 06/13/18 21:10 Solu-Medrol - IVPUSH 40 mg BID ZACHARY Administration Montelukast Sodium 10 mg 06/12/18 22:00 06/13/18 21:10 Singulair - PO 10 mg HS ZACHARY Administration Mupirocin 1 applic 06/12/18 22:00 06/13/18 21:11 Bactroban Ointment (For Decolonization) - NS 06/16/18 21:59 1 applic BID ZACHARY Administration Pantoprazole Sodium 20 mg 06/13/18 10:00 06/13/18 10:17 Protonix - PO 20 mg DAILY ZACHARY Administration Polyethylene Glycol 17 gm 06/12/18 17:35 Miralax (For Daily Use) - PO DAILY PRN CONSTIPATION Roflumilast 500 mcg 06/13/18 10:00 06/13/18 10:18 Daliresp - PO 500 mcg DAILY ZACHARY Administration Tiotropium [place] 2 puff 06/13/18 10:00 06/13/18 10:16 Spiriva Respimat IH 2 puff DAILY ZACHARY Administration ASSESSMENT/PLAN: 58 y/o F w/PMHx COPD (on home O2 3L), chronic anemia, HTN initially admitted to [facility] for COPD exacerbation, hospital course complicated by HAP requiring bipap and now in ICU #HAP - ventimask @ 40% and BiPAP PRN ordered, Pt prefers BiPAP - repeat CXR showed CHIKI improvement, continuing consolidation in LLL - WBC downtrending to 22.5 - Sputum Cx positive for Acinetobacter, ID alerted - current ABx Vanc/Zosyn do not cover, awaiting further recommendations - L lateral chest wall pain is new, concerning for empyema development given ABx -resistant organism - repeat CXR pending - BiPAP settings unchanged, saturating 100 - blood cultures negative #HTN - systolic pressures increased to 160-170, Pt tachy to 130s additionally - hydralazine 5 pushed, metoprolol 5 pushed - Cardizem 30mg q6h - Monitor BP closely #COPD exacerbation - c/w roflumilast, tiotropium, singulair, alb neb - O2 3LNC to keep SpO2 90% - solumedrol 40 mg IV bid #Anemia - Hb stable x 2 days - cont folate and iron - monitor CBC, transfusion threshhold 7 #RAOUL -resolving -BUN/Cr improved to 51/1.1 #Soft stool - C diff negative preliminarily #deconditioning - PT #FEN - not on fluids - lytes wnl - Sodium controlled diet #PPx - Lovenox 40mg sq daily #Dispo - ICU Visit type - Emergency Visit Emergency Visit: No - New Patient This patient is new to me today: No - Critical Care Critical Care patient: Yes Total Critical Care Time (in minutes): 40 Critical Care Statement: The care of this patient involved high complexity decision making to prevent further life threatening deterioration of the patient 's condition and/or to evaluate & treat vital organ system(s) failure or risk of failure.
[2018-06-14] MEDS ORDERED: MORPHINE SULFATE 2 MG/ML VIAL IVPUSH PRN (09:26)
[2018-06-14] MEDS ORDERED: DEXTROSE 5%-WATER - 50 ML IVPB ONE ×2 (10:14→19:22)
[2018-06-14] MEDS ORDERED: PT OWN MED DRAWER 7, Y5N ONE (10:14)
[2018-06-14] MEDS ORDERED: PIPERACILLIN/TAZOBACTAM 3.375 GM VIAL IVPB ONE ×3 (10:14→23:29)
[2018-06-14] MEDS: MUPIROCIN 2% TOPICAL OINTMENT FOR DECOLONIZATION NS SCH ×2 (10:18→22:00)
[2018-06-14] MEDS: ENOXAPARIN NA (PORCINE) 40 MG/0.4 ML DISP.SYRIN SQ SCH (10:19)
[2018-06-14] MEDS: PANTOPRAZOLE 20 MG TABLET (FP) PO SCH (10:19)
[2018-06-14] MEDS: ROFLUMILAST 500 MCG TABLET PO SCH (10:19)
[2018-06-14] MEDS: FERROUS SO4 325 MG TABLET (FP) PO SCH (10:19)
[2018-06-14] MEDS: FOLIC ACID 1 MG TABLET (FP) PO SCH (10:19)
[2018-06-14] MEDS: TIOTROPIUM BROMIDE 2.5 MCG (SPIRIVA) RESPIMAT INHALER IH SCH (10:20)
[2018-06-14] MEDS: MORPHINE SULFATE 2 MG/ML VIAL IVPUSH PRN ×2 (10:20→16:42)
[2018-06-14] MEDS: methylPREDNISolone NA SUCC 40 MG/1 ML VIAL IVPUSH SCH ×3 (10:20→22:00)
[2018-06-14 10:41] LABS: ANISOCYTOSIS 1+; MACROCYTOSIS 0; PLATELET ESTIMATE DECREASED; TARGET CELLS 1+
[2018-06-14] MEDS ORDERED: hydrALAZINE HCL 20 MG/ML VIAL IVPUSH ONE (11:32)
[2018-06-14] MEDS ORDERED: METOPROLOL TARTRATE 5 MG/5 ML VIAL IVPUSH ONE (13:00)
--- NOTE | 2018-06-14 13:29 | PN ---
Teaching Attending Note Name of Resident: Long Petersen ATTENDING PHYSICIAN STATEMENT I saw and evaluated the patient. I reviewed the resident's note and discussed the case with the resident. I agree with the resident's findings and plan as documented. SUBJECTIVE: Patient seen and examined in the ICU. Awake and alert on NIPPV support. Pleuritic type CP causing her to splint. SOB is a little better on NIPPV Still dyspneic at rest. Intake & Output 06/11/18 06/12/18 06/13/18 06/14/18 23:59 23:59 23:59 23:59 Intake Total 3000 1020 1710 530 Output Total 400 100 Balance 2600 1020 1610 530 Weight 145 lb 8 oz 142 lb 3.2 oz Last Vital Signs Temp Pulse Resp BP Pulse Ox 99.5 F 118 H 29 H 176/84 H 100 06/14/18 10:00 06/14/18 10:00 06/14/18 10:00 06/14/18 10:00 06/14/18 08:00 Active Medications Acetaminophen (Tylenol -) 650 mg PO Q6H PRN PRN Reason: PAIN LEVEL 6-10 Last Admin: 06/13/18 01:30 Dose: 650 mg Albuterol Sulfate (Ventolin 0.083% Nebulizer Soln -) 1 amp NEB Q1H PRN PRN Reason: SHORT OF BREATH/WHEEZING Last Admin: 06/14/18 08:40 Dose: 1 amp Chlorhexidine Gluconate (Hibiclens For Decolonization -) 1 applic TP HS [facility] Last Admin: 06/13/18 21:11 Dose: 1 applic Diltiazem HCl (Cardizem -) 30 mg PO Q6HPO [facility] Last Admin: 06/14/18 05:03 Dose: 30 mg Enoxaparin Sodium (Lovenox -) 40 mg SQ DAILY [facility] Last Admin: 06/14/18 10:19 Dose: 40 mg Ergocalciferol (Drisdol -) 50,000 unit PO Q7D@1000 [facility] Ferrous Sulfate (Feosol -) 325 mg PO DAILY [facility] Last Admin: 06/14/18 10:19 Dose: 325 mg Folic Acid (Folic Acid -) 1 mg PO DAILY [facility] Last Admin: 06/14/18 10:19 Dose: 1 mg Vancomycin HCl 1,000 mg/ (Dextrose) 250 mls @ 200 mls/hr IVPB Q24H [facility]; Protocol Last Admin: 06/13/18 15:05 Dose: 200 mls/hr Piperacillin Sod/Tazobactam (Sod 3.375 gm/ Dextrose) 50 mls @ 100 mls/hr IVPB Q8H-IV [facility]; Protocol Last Admin: 06/14/18 10:20 Dose: 100 mls/hr Lorazepam (Ativan Injection -) 0.5 mg IVPUSH Q6H PRN PRN Reason: ANXIETY Last Admin: 06/13/18 22:19 Dose: 0.5 mg Methylprednisolone Sodium Succinate (Solu-Medrol -) 40 mg IVPUSH BID [facility] Last Admin: 06/14/18 10:20 Dose: 40 mg Montelukast Sodium (Singulair -) 10 mg PO HS [facility] Last Admin: 06/13/18 21:10 Dose: 10 mg Morphine Sulfate (Morphine Sulfate) 1 mg IVPUSH Q4H PRN PRN Reason: PAIN LEVEL 6-10 Last Admin: 06/14/18 10:20 Dose: 1 mg Morphine Sulfate (Morphine Sulfate) 1 mg IVPUSH Q4H PRN PRN Reason: PAIN LEVEL 1-5 Mupirocin (Bactroban Ointment (For Decolonization) -) 1 applic NS BID [facility] Stop: 06/16/18 21:59 Last Admin: 06/14/18 10:18 Dose: 1 applic Pantoprazole Sodium (Protonix -) 20 mg PO DAILY [facility] Last Admin: 06/14/18 10:19 Dose: 20 mg Polyethylene Glycol (Miralax (For Daily Use) -) 17 gm PO DAILY PRN PRN Reason: CONSTIPATION Roflumilast (Daliresp -) 500 mcg PO DAILY [facility] Last Admin: 06/14/18 10:19 Dose: 500 mcg Tiotropium Bolt (Spiriva Respimat) 2 puff IH DAILY [facility] Last Admin: 06/14/18 10:20 Dose: 2 puff Constitutional: Yes: Mildly dyspneic at rest on NIPPV, Awake and alert Eyes: Yes: WNL HENT: Yes: WNL Neck: Yes: WNL Cardiovascular: Yes: Regular Rate and Rhythm, S1, S2 Respiratory: Yes: diminished air entry throughout, no active wheezing, scattered Rhonchi Gastrointestinal: Yes: Normal Bowel Sounds, Soft Extremities: Yes: WNL Edema: No Labs: Laboratory Results - last 24 hr 06/13/18 06/14/18 06/14/18 15:30 05:30 05:30 WBC 22.5 H RBC 3.48 L Hgb 7.7 L Hct 25.4 L MCV 73.1 L MCH 22.3 L MCHC 30.5 L RDW 16.4 H Plt Count 62 L MPV 9.6 Absolute Neuts (auto) 19.0 H Neutrophils % 84.6 H Neutrophils % (Manual) 99.0 H Band Neutrophils % 0.0 Lymphocytes % 13.6 D Lymphocytes % (Manual) 0.0 L Monocytes % 1.5 L Monocytes % (Manual) 1 L Eosinophils % 0.1 Eosinophils % (Manual) 0.0 Basophils % 0.2 Basophils % (Manual) 0.0 Myelocytes % (Man) 0 Promyelocytes % (Man) 0 Blast Cells % (Manual) 0 Nucleated RBC % 0 Metamyelocytes 0 Hypochromia 2+ Platelet Estimate Decreased Polychromasia 0 Poikilocytosis 1+ Anisocytosis 1+ Microcytosis 1+ Macrocytosis 0 Target Cells 1+ Schistocytes 1+ Sodium Potassium Chloride Carbon Dioxide Anion Gap BUN Creatinine Creat Clearance w eGFR Random Glucose Lactic Acid 1.9 Calcium Phosphorus Magnesium Total Bilirubin AST ALT Alkaline Phosphatase Total Protein Albumin Vancomycin Pre-Dose 9.4 L 06/14/18 05:30 WBC RBC Hgb Hct MCV MCH MCHC RDW Plt Count MPV Absolute Neuts (auto) Neutrophils % Neutrophils % (Manual) Band Neutrophils % Lymphocytes % Lymphocytes % (Manual) Monocytes % Monocytes % (Manual) Eosinophils % Eosinophils % (Manual) Basophils % Basophils % (Manual) Myelocytes % (Man) Promyelocytes % (Man) Blast Cells % (Manual) Nucleated RBC % Metamyelocytes Hypochromia Platelet Estimate Polychromasia Poikilocytosis Anisocytosis Microcytosis Macrocytosis Target Cells Schistocytes Sodium 148 H Potassium 5.0 Chloride 109 H Carbon Dioxide 36 H Anion Gap 3 L BUN 51 H Creatinine 1.1 Creat Clearance w eGFR 50.84 Random Glucose 155 H Lactic Acid Calcium 8.8 Phosphorus 3.3 Magnesium 2.1 Total Bilirubin 0.3 AST 27 ALT 49 Alkaline Phosphatase 81 Total Protein 5.0 L Albumin 1.8 L Vancomycin Pre-Dose Problem List - Problems (1) COPD exacerbation Code(s): J44.1 - CHRONIC OBSTRUCTIVE PULMONARY DISEASE W (ACUTE) EXACERBATION (2) Shortness of breath Code(s): R06.02 - SHORTNESS OF BREATH (3) Bronchiectasis Code(s): J47.9 - BRONCHIECTASIS, UNCOMPLICATED (4) Chronic respiratory failure with hypoxia Code(s): J96.11 - CHRONIC RESPIRATORY FAILURE WITH HYPOXIA (5) Emphysema lung Code(s): J43.9 - EMPHYSEMA, UNSPECIFIED (6) Supplemental oxygen dependent Code(s): Z99.81 - DEPENDENCE ON SUPPLEMENTAL OXYGEN Assessment/Plan Acute COPD Exacerbation Acute ON Chronic Hypoxic/Hypercapneic Respiratory Failure CHIKI pneumonia HTN RAOUL ANEMIA + TROPONIN - medrol at current dose - NIPPV support - ABX as per ID - inhaled bronchodilators standing and PRN - O2 to keep SpO2 90% - daliresp - DVT prophylaxis - Follow chest x-rays - Normal transfusion threshold - ICU monitoring for tenuous respiratory status Dr Carty Critical care time spent in reviewing chart, evaluating patient and formulating plan - 36 minutes.
[2018-06-14] MEDS ORDERED: dilTIAZem HCL 50 MG/10 ML - 10 ML VIAL IVPUSH PRN (13:33)
[2018-06-14] MEDS: VANCOMYCIN 1,000 MG in DEXTROSE 5%-WATER - 250 ML IVPB SCH ×2 (13:36→13:41)
--- NOTE | 2018-06-14 13:38 | PN ---
Teaching Attending Note Name of Resident: Babs Flores ATTENDING PHYSICIAN STATEMENT I saw and evaluated the patient. I reviewed the resident's note and discussed the case with the resident. I agree with the resident's findings and plan as documented with exceptions below. SUBJECTIVE: Patient seen and examined. still with dyspnea, overall unchanged from yesterday. Reports left lower chest pain, worse with touch and breathing. OBJECTIVE: Vital Signs Period Temp Pulse Resp BP Sys/Echevarria Pulse Ox Last 24 Hr 98.1 F-99.5 F 82-118 24-30 103-176/41-101 98-100 Intake & Output 06/11/18 06/12/18 06/13/18 06/14/18 23:59 23:59 23:59 23:59 Intake Total 3000 1020 1710 930 Output Total 400 100 Balance 2600 1020 1610 930 Weight 145 lb 8 oz 142 lb 3.2 oz General: tachypneic on bipap in bed, mild respiratory distress Chest: positive air entry with scattered wheezing, also left sided rales with some decreased breath sound at bases, chest wall tenderness over left lower/ lateral regions Abdomen:soft, NT, ND, positive bowel sounds Extremities: no edema Home Medications Medication Instructions Recorded Cholecalciferol (Vitamin D3) 50,000 unit PO WEEKLY 12/05/17 [Vitamin D -] Albuterol Sulfate Inhaler - 1 - 2 inh PO Q4H PRN #1 inhaler 01/20/18 [Ventolin HFA Inhaler -] Ferrous Sulfate [Feosol] 325 mg PO DAILY 02/04/18 Fluticasone/Salmeterol [Advair 1 puff IN QID PRN 02/04/18 250-50 Diskus] Folic Acid 1 mg PO DAILY 02/04/18 Umeclidinium [place] [Incruse 62.5 mcg IH DAILY 02/04/18 Ellipta] Diltiazem [Cardizem -] 30 mg PO TID 30 Days #90 tablet 02/12/18 Montelukast Na [Singulair -] 10 mg PO HS #30 tablet 02/12/18 Polyethylene Glycol 3350 [Miralax 17 gm PO DAILY PRN 5 Days #5 bottle 02/12/18 119 gm Btl -] Albuterol Sulfate Inhaler - 1 - 2 inh PO Q4H #1 inhaler 04/25/18 [Ventolin Hfa Inhaler -] Ipratropium/Albuterol Sulfate 4 gm IH BID #20 aer.w.adap 04/25/18 [Combivent Respimat Inhal [place]] Active Medications Acetaminophen (Tylenol -) 650 mg PO Q6H PRN PRN Reason: PAIN LEVEL 6-10 Last Admin: 06/13/18 01:30 Dose: 650 mg Albuterol Sulfate (Ventolin 0.083% Nebulizer Soln -) 1 amp NEB Q1H PRN PRN Reason: SHORT OF BREATH/WHEEZING Last Admin: 06/14/18 08:40 Dose: 1 amp Chlorhexidine Gluconate (Hibiclens For Decolonization -) 1 applic TP HS [facility] Last Admin: 06/13/18 21:11 Dose: 1 applic Diltiazem HCl (Cardizem -) 30 mg PO Q6HPO [facility] Last Admin: 06/14/18 13:00 Dose: 30 mg Diltiazem HCl (Cardizem Injection -) 10 mg IVPUSH Q4H PRN PRN Reason: TACHYCARDIA Enoxaparin Sodium (Lovenox -) 40 mg SQ DAILY [facility] Last Admin: 06/14/18 10:19 Dose: 40 mg Ergocalciferol (Drisdol -) 50,000 unit PO Q7D@1000 [facility] Ferrous Sulfate (Feosol -) 325 mg PO DAILY [facility] Last Admin: 06/14/18 10:19 Dose: 325 mg Folic Acid (Folic Acid -) 1 mg PO DAILY [facility] Last Admin: 06/14/18 10:19 Dose: 1 mg Vancomycin HCl 1,000 mg/ (Dextrose) 250 mls @ 200 mls/hr IVPB Q24H [facility]; Protocol Last Admin: 06/14/18 13:36 Dose: 200 mls/hr Piperacillin Sod/Tazobactam (Sod 3.375 gm/ Dextrose) 50 mls @ 100 mls/hr IVPB Q8H-IV [facility]; Protocol Last Admin: 06/14/18 10:20 Dose: 100 mls/hr Lorazepam (Ativan Injection -) 0.5 mg IVPUSH Q6H PRN PRN Reason: ANXIETY Last Admin: 06/13/18 22:19 Dose: 0.5 mg Methylprednisolone Sodium Succinate (Solu-Medrol -) 40 mg IVPUSH Q6H [facility] Montelukast Sodium (Singulair -) 10 mg PO HS [facility] Last Admin: 06/13/18 21:10 Dose: 10 mg Morphine Sulfate (Morphine Sulfate) 1 mg IVPUSH Q4H PRN PRN Reason: PAIN LEVEL 6-10 Last Admin: 06/14/18 10:20 Dose: 1 mg Morphine Sulfate (Morphine Sulfate) 1 mg IVPUSH Q4H PRN PRN Reason: PAIN LEVEL 1-5 Mupirocin (Bactroban Ointment (For Decolonization) -) 1 applic NS BID [facility] Stop: 06/16/18 21:59 Last Admin: 06/14/18 10:18 Dose: 1 applic Pantoprazole Sodium (Protonix -) 20 mg PO DAILY [facility] Last Admin: 06/14/18 10:19 Dose: 20 mg Polyethylene Glycol (Miralax (For Daily Use) -) 17 gm PO DAILY PRN PRN Reason: CONSTIPATION Roflumilast (Daliresp -) 500 mcg PO DAILY [facility] Last Admin: 06/14/18 10:19 Dose: 500 mcg Tiotropium [place] (Spiriva Respimat) 2 puff IH DAILY [facility] Last Admin: 06/14/18 10:20 Dose: 2 puff Laboratory Results - last 24 hr 06/13/18 06/14/18 06/14/18 15:30 05:30 05:30 WBC 22.5 H RBC 3.48 L Hgb 7.7 L Hct 25.4 L MCV 73.1 L MCH 22.3 L MCHC 30.5 L RDW 16.4 H Plt Count 62 L MPV 9.6 Absolute Neuts (auto) 19.0 H Neutrophils % 84.6 H Neutrophils % (Manual) 99.0 H Band Neutrophils % 0.0 Lymphocytes % 13.6 D Lymphocytes % (Manual) 0.0 L Monocytes % 1.5 L Monocytes % (Manual) 1 L Eosinophils % 0.1 Eosinophils % (Manual) 0.0 Basophils % 0.2 Basophils % (Manual) 0.0 Myelocytes % (Man) 0 Promyelocytes % (Man) 0 Blast Cells % (Manual) 0 Nucleated RBC % 0 Metamyelocytes 0 Hypochromia 2+ Platelet Estimate Decreased Polychromasia 0 Poikilocytosis 1+ Anisocytosis 1+ Microcytosis 1+ Macrocytosis 0 Target Cells 1+ Schistocytes 1+ Sodium Potassium Chloride Carbon Dioxide Anion Gap BUN Creatinine Creat Clearance w eGFR Random Glucose Lactic Acid 1.9 Calcium Phosphorus Magnesium Total Bilirubin AST ALT Alkaline Phosphatase Total Protein Albumin Vancomycin Pre-Dose 9.4 L 06/14/18 05:30 WBC RBC Hgb Hct MCV MCH MCHC RDW Plt Count MPV Absolute Neuts (auto) Neutrophils % Neutrophils % (Manual) Band Neutrophils % Lymphocytes % Lymphocytes % (Manual) Monocytes % Monocytes % (Manual) Eosinophils % Eosinophils % (Manual) Basophils % Basophils % (Manual) Myelocytes % (Man) Promyelocytes % (Man) Blast Cells % (Manual) Nucleated RBC % Metamyelocytes Hypochromia Platelet Estimate Polychromasia Poikilocytosis Anisocytosis Microcytosis Macrocytosis Target Cells Schistocytes Sodium 148 H Potassium 5.0 Chloride 109 H Carbon Dioxide 36 H Anion Gap 3 L BUN 51 H Creatinine 1.1 Creat Clearance w eGFR 50.84 Random Glucose 155 H Lactic Acid Calcium 8.8 Phosphorus 3.3 Magnesium 2.1 Total Bilirubin 0.3 AST 27 ALT 49 Alkaline Phosphatase 81 Total Protein 5.0 L Albumin 1.8 L Vancomycin Pre-Dose CXR 06/13- CHIKI infiltrate, left pleural effusion, ?loculated Home Medication List Medication Instructions Recorded Confirmed Type Cholecalciferol (Vitamin D3) 50,000 unit PO WEEKLY 12/05/17 05/30/18 History [Vitamin D -] Ferrous Sulfate [Feosol] 325 mg PO DAILY 02/04/18 05/30/18 History Fluticasone/Salmeterol [Advair 1 puff IN QID PRN 02/04/18 05/31/18 History 250-50 Diskus] Folic Acid 1 mg PO DAILY 02/04/18 05/30/18 History Umeclidinium [place] [Incruse 62.5 mcg IH DAILY 02/04/18 05/30/18 History Ellipta] Microbiology 06/11/18 17:49 Sputum - Expectorated Gram Stain - Final 06/11/18 17:49 Sputum - Expectorated Sputum Culture - Final Acinetobacter Baumannii/Haemol 06/10/18 18:00 Blood - Peripheral Venous Blood Culture - Preliminary NO GROWTH OBTAINED AFTER 72 HOURS, INCUBATION TO CONTINUE FOR 2 DAYS. 06/10/18 17:00 Blood - Peripheral Venous Blood Culture - Preliminary NO GROWTH OBTAINED AFTER 72 HOURS, INCUBATION TO CONTINUE FOR 2 DAYS. 06/12/18 15:00 Stool Clostridium difficile Antigen (BENITO) - Final 06/12/18 15:00 Stool Clostridium difficile Toxin Assay - Final 05/27/18 17:42 Blood - Peripheral Venous Blood Culture - Final NO GROWTH AFTER 5 DAYS INCUBATION 05/27/18 17:42 Blood - Peripheral Venous Blood Culture - Final NO GROWTH AFTER 5 DAYS INCUBATION ASSESSMENT AND PLAN: 58yo F with PMH HTn, COPD on home O2 (3L NC) and anemia presented with dyspnea and cough on 05/27/2018, initially treated for COPD exac, course complicated by worsening respiratory status, new PNA, transferred to ICU on 06/12, now on Bipap -Acute on chronic hypercapnic respiratory failure -Sepsis due to CHIKI/LLL HCAP with left pleural effusion, likely parapneumonic, ? empyema -Acute on chronic COPD exacerbation -Acute thrombocytopenia, suspect from sepsis -Hypernatremia, likely hypovolumic -Uncontrolled HTN, likely from respiratory distress -RAOUL on CKD, likely from sepsis/hypoperfusion, resolved -Normocytic anemia Plan: Respiratory status tenuous, continue Bipap, low threshold for intubation. Pulmonary input noted. CT chest when hemodynamics improve. Repeat CXR to assess pleural effusion. High risk for pneumothorax, monitor for now. ID input noted. Zosyn/vancomycin day 3, monitor vanco levels and renal function. Increase solumedrol to 40 mg Q6h, standing and prn nebs. Will need standing steroids once improved given frequent exacerbations. Platelets stabilized, trend CBC, SCDs for now, avoid lovenox. Add cardizem IV prn for HTN/tachycardia. Suspect is from respiratory effort/ hypoxia/dyspnea and nebs. DVTPPX SCDs Dispo continue MICU level of monitoring. Plan discussed with patient in detail, all questions answered. The care of this patient involved high complexity decision making to prevent further life threatening deterioration of the patient's condition and/or to evaluate & treat vital organ system(s) failure or risk of failure. 40 minutes
--- NOTE | 2018-06-14 14:10 | PN ---
Physical Exam: SUBJECTIVE: Patient seen and examined this morning. Patient still on bipap. Patient was off bipap while eating, but worsening SOB, placed back on bipap. PAtient today complains of new onset left sided chest pain, likely pleuritic. OBJECTIVE: Vital Signs Period Temp Pulse Resp BP Sys/Echevarria Pulse Ox Last 24 Hr 98.1 F-99.5 F 90-118 24-30 142-176/62-101 98-100 GENERAL: The patient is awake, alert, and fully oriented, on bipap, in distress. HEAD: Normal with no signs of trauma. EYES: PERRLA, EOMI, sclera anicteric, conjunctiva clear. ENT: Ears normal, nares patent, oropharynx clear without exudates, moist mucous membranes. NECK: Trachea midline, full range of motion, supple. LUNGS: + diffuse rhonchi bilaterally, decreased air entry HEART: Tachycardic, normal S1, S2 without murmur, rub or gallop. ABDOMEN: Soft, nontender, nondistended, normoactive bowel sounds. EXTREMITIES: 2+ pulses, warm, well-perfused, no edema. NEUROLOGICAL: Cranial nerves II through XII grossly intact. Normal speech, normal gait. PSYCH: Normal mood, normal affect. SKIN: Warm, dry, normal turgor, no rashes or lesions noted. Laboratory Results - last 24 hr 06/13/18 06/14/18 06/14/18 15:30 05:30 05:30 WBC 22.5 H RBC 3.48 L Hgb 7.7 L Hct 25.4 L MCV 73.1 L MCH 22.3 L MCHC 30.5 L RDW 16.4 H Plt Count 62 L MPV 9.6 Absolute Neuts (auto) 19.0 H Neutrophils % 84.6 H Neutrophils % (Manual) 99.0 H Band Neutrophils % 0.0 Lymphocytes % 13.6 D Lymphocytes % (Manual) 0.0 L Monocytes % 1.5 L Monocytes % (Manual) 1 L Eosinophils % 0.1 Eosinophils % (Manual) 0.0 Basophils % 0.2 Basophils % (Manual) 0.0 Myelocytes % (Man) 0 Promyelocytes % (Man) 0 Blast Cells % (Manual) 0 Nucleated RBC % 0 Metamyelocytes 0 Hypochromia 2+ Platelet Estimate Decreased Polychromasia 0 Poikilocytosis 1+ Anisocytosis 1+ Microcytosis 1+ Macrocytosis 0 Target Cells 1+ Schistocytes 1+ Sodium Potassium Chloride Carbon Dioxide Anion Gap BUN Creatinine Creat Clearance w eGFR Random Glucose Lactic Acid 1.9 Calcium Phosphorus Magnesium Total Bilirubin AST ALT Alkaline Phosphatase Total Protein Albumin Vancomycin Pre-Dose 9.4 L 06/14/18 05:30 WBC RBC Hgb Hct MCV MCH MCHC RDW Plt Count MPV Absolute Neuts (auto) Neutrophils % Neutrophils % (Manual) Band Neutrophils % Lymphocytes % Lymphocytes % (Manual) Monocytes % Monocytes % (Manual) Eosinophils % Eosinophils % (Manual) Basophils % Basophils % (Manual) Myelocytes % (Man) Promyelocytes % (Man) Blast Cells % (Manual) Nucleated RBC % Metamyelocytes Hypochromia Platelet Estimate Polychromasia Poikilocytosis Anisocytosis Microcytosis Macrocytosis Target Cells Schistocytes Sodium 148 H Potassium 5.0 Chloride 109 H Carbon Dioxide 36 H Anion Gap 3 L BUN 51 H Creatinine 1.1 Creat Clearance w eGFR 50.84 Random Glucose 155 H Lactic Acid Calcium 8.8 Phosphorus 3.3 Magnesium 2.1 Total Bilirubin 0.3 AST 27 ALT 49 Alkaline Phosphatase 81 Total Protein 5.0 L Albumin 1.8 L Vancomycin Pre-Dose Active Medications Generic Name Dose Route Start Last Admin Trade Name Freq PRN Reason Stop Dose Admin Acetaminophen 650 mg 06/12/18 17:35 06/13/18 01:30 Tylenol - PO 650 mg Q6H PRN Administration PAIN LEVEL 6-10 Albuterol Sulfate 1 amp 06/12/18 17:35 06/14/18 08:40 Ventolin 0.083% Nebulizer Soln - NEB 1 amp Q1H PRN Administration SHORT OF BREATH/WHEEZING Chlorhexidine Gluconate 1 applic 06/12/18 22:00 06/13/18 21:11 Hibiclens For Decolonization - TP 1 applic HS ZACHARY Administration Diltiazem HCl 30 mg 06/12/18 18:00 06/14/18 13:00 Cardizem - PO 30 mg Q6HPO ZACHARY Administration Diltiazem HCl 10 mg 06/14/18 13:33 Cardizem Injection - IVPUSH Q4H PRN TACHYCARDIA Enoxaparin Sodium 40 mg 06/13/18 10:00 06/14/18 10:19 Lovenox - SQ 40 mg DAILY ZACHARY Administration Ergocalciferol 50,000 unit 06/15/18 10:00 Drisdol - PO Q7D@1000 ZACHARY Ferrous Sulfate 325 mg 06/13/18 10:00 06/14/18 10:19 Feosol - PO 325 mg DAILY ZACHARY Administration Folic Acid 1 mg 06/13/18 10:00 06/14/18 10:19 Folic Acid - PO 1 mg DAILY ZACHARY Administration Vancomycin HCl 1,000 mg/ 250 mls @ 200 mls/hr 06/13/18 14:00 06/14/18 13:41 Dextrose IVPB 200 mls/hr Q24H ZACHARY Administration Protocol Piperacillin Sod/Tazobactam 50 mls @ 100 mls/hr 06/12/18 18:00 06/14/18 10:20 Sod 3.375 gm/ Dextrose IVPB 100 mls/hr Q8H-IV ZACHARY Administration Protocol Lorazepam 0.5 mg 06/12/18 17:35 06/13/18 22:19 Ativan Injection - IVPUSH 0.5 mg Q6H PRN Administration ANXIETY Methylprednisolone Sodium Succinate 40 mg 06/14/18 15:00 Solu-Medrol - IVPUSH Q6H-IV ZACHARY Montelukast Sodium 10 mg 06/12/18 22:00 06/13/18 21:10 Singulair - PO 10 mg HS ZACHARY Administration Morphine Sulfate 1 mg 06/14/18 09:24 06/14/18 10:20 Morphine Sulfate IVPUSH 1 mg Q4H PRN Administration PAIN LEVEL 6-10 Morphine Sulfate 1 mg 06/14/18 09:26 Morphine Sulfate IVPUSH Q4H PRN PAIN LEVEL 1-5 Mupirocin 1 applic 06/12/18 22:00 06/14/18 10:18 Bactroban Ointment (For Decolonization) - NS 06/16/18 21:59 1 applic BID ZACHARY Administration Pantoprazole Sodium 20 mg 06/13/18 10:00 06/14/18 10:19 Protonix - PO 20 mg DAILY ZACHARY Administration Polyethylene Glycol 17 gm 06/12/18 17:35 Miralax (For Daily Use) - PO DAILY PRN CONSTIPATION Roflumilast 500 mcg 06/13/18 10:00 06/14/18 10:19 Daliresp - PO 500 mcg DAILY ZACHARY Administration Tiotropium [place] 2 puff 06/13/18 10:00 06/14/18 10:20 Spiriva Respimat IH 2 puff DAILY ZACHARY Administration Imaging: Chest X-Ray (05/27/18): No significant interval change. Persistent bilateral increased interstitial markings. Differential diagnosis again includes chronic interstitial lung disease. Cannot rule out noncardiogenic mild pulmonary venous congestion or interstitial infiltrates. Chest X-ray (05/30/18): No acute pathology or significant change. Chest CT scan without contrast (05/31/18): Moderately severe COPD with extensive bilateral bronchiectasis. These findings are unchanged since a previous study of 02/07/18. There is no evidence of acute pathology within the chest. CXR (06/06/18) 2 views of the some minimal degenerative changes with wedging. The soft tissues are intact. The chest reveal a normal-sized heart, normal knob and normal genesis. There are some coarse lung changes. There may be some linear atelectasis/density by the left heart border. Since the prior study 05/30/18, the density by the left heart border has become apparent. This most likely represents a focal area of atelectasis. CXR (06/10/18): New pulmonary consolidation medial aspect of the left upper lung zone obscuring aortic arch. No pleural effusion, or pneumothorax seen. No evidence of vascular congestive changes. CXR (06/13/18): Resolving segmental left upper lobe pneumonia. Left lower lobe pneumonia unchanged. CXR (06/14/18): No significant change in left sided infiltrates. ASSESSMENT/PLAN: Patient is a 58 year old female who presented with shortness of breath and found to be in COPD exacerbation. #Hospital acquired pneumonia : - CXR showed no significant changes in left sided infiltrates. - WBC continue to trend down. 22.5 today. Will repeat CBC. - Patient on Bipap. - ID (Dr. Tao) consulted. Recommendations appreciated. - Patient on Zosyn 3.375 gm q8 day 5. - Vancomycin 1000mg q8 day 5. - Pt developed RAOUL, will renally dose Vancomycin - vanc trough level decreased today - 9.4, Repeat vanc trough levels daily while on RAOUL. - Sputum culture - Nonlactose fermenting gram negative bacilli #Acute on Chronic COPD exacerbation : - may be 2/2 CAP vs inhaled chemicals (house paint) - Pulmonary Consult. Recs appreciated: - Continue NIPPV - Increase solu-medrol dose 40mg to q6h - Duonebs QID - Albuterol PRN - Add Daliresp (500mcg daily) - Symbicort not given. Pt reports allergy to symbicort. - Keep O2 satn >90% - Chest PT BID - Pt has frequent exacerbations, may need to be on chronic low dose steroids at home. #Left-sided Chest Pain: likely pleuritic - may be empyema - unlikely cardiac in nature - Tylenol PRN for pain. #Microcytic Anemia - likely due to RUBY - now at baseline Hgb - Fe Panel previously showed low Fe, low Fesat, low-normal ferritin - Continue Fe supplements - will trend CBC #Hypertension - Cardizem 30mg q6h - Add Cardizem IV PRN for hypertension/tachycardia - Monitor BP closely #FEN - not on fluids - lytes wnl - Sodium controlled diet #Prophylaxis - Lovenox 40mg sq daily #Disposition - To ICU for closer monitoring. Visit type - Emergency Visit Emergency Visit: Yes ED Registration Date: 05/27/18 Care time: The patient presented to the Emergency Department on the above date and was hospitalized for further evaluation of their emergent condition. - New Patient This patient is new to me today: Yes Date on this admission: 06/14/18 - Critical Care Critical Care patient: Yes Total Critical Care Time (in minutes): 40 Critical Care Statement: The care of this patient involved high complexity decision making to prevent further life threatening deterioration of the patient 's condition and/or to evaluate & treat vital organ system(s) failure or risk of failure.
--- NOTE | 2018-06-14 18:38 | PN ---
Progress Note (short form) - Note Progress Note: patient seen and examined doing well clinically less oxygen demand, alert cxray the seam wbc improved , platelets unchanged alert on bipap temp 99.4 108 HR fi02 40% cor-rrr lungs decreased bs on the right abd soft,nt ext no edema CBC, BMP 06/14/18 05:30 06/14/18 05:30 cxray unchanged a/p resp failure HAP sepsis with thrombocytopenia giovanna- resolving suspect colonization with acinetobacter given overall clinical improvement same antibiotics for now will follow Problem List - Problems (1) Sepsis Code(s): A41.9 - SEPSIS, UNSPECIFIED ORGANISM (2) Acute on chronic respiratory failure with hypoxia and hypercapnia Code(s): J96.21 - ACUTE AND CHRONIC RESPIRATORY FAILURE WITH HYPOXIA; J96.22 - ACUTE AND CHRONIC RESPIRATORY FAILURE WITH HYPERCAPNIA (3) Hospital acquired PNA Code(s): J18.9 - PNEUMONIA, UNSPECIFIED ORGANISM
[2018-06-14] MEDS ORDERED: amLODIPine BESYLATE 10 MG TABLET (FP) PO SCH (20:00)
[2018-06-14] MEDS ORDERED: MORPHINE SULFATE 2 MG/ML VIAL IVPUSH ONE (20:15)
[2018-06-14] MEDS: MONTELUKAST NA 10 MG TABLET PO SCH (22:00)
[2018-06-14] MEDS: CHLORHEXIDINE GLUCONATE 4% CLEANSER FOR DECOLONIZATION TP SCH (22:01)
[2018-06-14] MEDS ORDERED: DEXTROSE 5%-WATER - 100 ML IVPB ONE (23:29)
[2018-06-15] MEDS: LORazepam 2 MG/ML SDV VIAL IVPUSH PRN (00:11)
[2018-06-15] MEDS: dilTIAZem HCL 30 MG TABLET (FP) PO SCH ×2 (00:13→05:41)
[2018-06-15] MEDS: MORPHINE SULFATE 2 MG/ML VIAL IVPUSH PRN (00:27)
[2018-06-15] MEDS ORDERED: dilTIAZem HCL 50 MG/10 ML - 10 ML VIAL IVPUSH ONE (00:42)
[2018-06-15] MEDS ORDERED: PROPOFOL 1,000,000 MCG/100 ML VIAL ONE ×2 (01:11→21:41)
--- NOTE | 2018-06-15 01:34 | PROC ---
Procedure Note Procedure: Anesthesia first responder Called to intubate pt with respiratory failure DL x 2 #7.5 ETT passed without trauma +ETCO2 +BS=BL Tube taped 20cm at the lip Care left to the ICU team Mario Larson MD
[2018-06-15] MEDS ORDERED: fentaNYL CITRATE 250 MCG/5 ML VIAL ONE ×2 (01:42→21:40)
--- NOTE | 2018-06-15 01:48 | PN ---
Progress Note (short form) - Note Progress Note: patient tachycardic at 1 AM, sinus tach on tele. cardizem 10 IV given with no improvement. patient then becomes severely tachypneic resp 40's-50's, lungs sounding ronchorous, a lot of upper respiratory secretions, o2 sat 93%. decision to intubate made and anesthesia called. vent settings peep 5, fio2 40% , tidal vol 450 (8cc/kg ideal body weight). Patients son contacted at 14 am and situation explained. Problem List - Problems (1) COPD exacerbation Code(s): J44.1 - CHRONIC OBSTRUCTIVE PULMONARY DISEASE W (ACUTE) EXACERBATION (2) COPD exacerbation Code(s): J44.1 - CHRONIC OBSTRUCTIVE PULMONARY DISEASE W (ACUTE) EXACERBATION
[2018-06-15] MEDS: PROPOFOL 1,000,000 MCG/100 ML VIAL IVPB SCH ×2 (01:50→14:11)
[2018-06-15] MEDS: FENTANYL INJECTION 500 MCG in DEXTROSE 5%-WATER - 90 ML IVPB SCH (01:51)
[2018-06-15] MEDS: PIPERACILLIN/TAZOB 3.375 GM 3.375 GM in DEXTROSE 5%-WATER - 50 ML IVPB SCH (02:11)
[2018-06-15] MEDS: methylPREDNISolone NA SUCC 40 MG/1 ML VIAL IVPUSH SCH ×4 (02:12→22:20)
[2018-06-15 02:23] LABS: ARTERIAL BLD GAS O2 SATURATION 88.7 % (90-98.9); ARTERIAL BLOOD GAS BASE EXCESS 7.5 meq/l (-2-2)
[2018-06-15 02:24] LABS: ALLENS TEST POSITIVE
[2018-06-15 02:26] LABS: ARTERIAL BLOOD GAS PCO2 72.6 mmHg (35-45)
[2018-06-15] MEDS ORDERED: POLYMYXIN B SULFATE 500,000 UNIT VIAL IVPB ONE ×2 (03:23→03:25)
[2018-06-15] MEDS ORDERED: SODIUM CHLORIDE 1,000 ML IV SCH (03:45)
[2018-06-15] MEDS ORDERED: WATER IVPB ONE (06:00)
[2018-06-15] MEDS ORDERED: POLYMYXIN B SULFATE IVPB ONE (06:00)
[2018-06-15] MEDS ORDERED: DEXTROSE 5% IVPB ONE (06:00)
[2018-06-15 06:39] LABS: MCH 22.1 pg (25.7-33.7); MCHC 30.8 g/dl (32.0-36.0); MEAN CELL VOLUME 71.9 fl (80-96); MEAN PLT VOLUME 9.4 fl (7.5-11.1); RBC 3.62 M/mm3 (3.60-5.2); RDW 16.2 % (11.6-15.6); WHITE BLOOD COUNT 8.3 K/mm3 (4.0-10.0)
[2018-06-15 06:57] LABS: ANION GAP 7 MMOL/L (8-16); BLOOD UREA NITROGEN 59 mg/dL (7-18); CALCIUM 8.7 mg/dL (8.5-10.1); CHLORIDE 114 mmol/L (98-107); CO2 33 mmol/L (21-32); CREATININE 1.3 mg/dL (0.55-1.3); GLUCOSE,RANDOM 143 mg/dL (74-106); MAGNESIUM 2.2 mg/dL (1.8-2.4); PHOSPHOROUS 3.2 mg/dL (2.5-4.9); POTASSIUM 4.8 mmol/L (3.5-5.1); SODIUM 154 mmol/L (136-145)
[2018-06-15 07:15] LABS: PLATELET COUNT 38 K/MM3 (134-434)
[2018-06-15] MEDS ORDERED: PT OWN MED DRAWER 7, Y5N ONE (09:21)
--- NOTE | 2018-06-15 09:29 | PN ---
Progress Note (short form) - Note Progress Note: events noted became tachypneic and tachycardic overnight intubated discussed with icu resident last night - polymyxin started Vital Signs Period Temp Pulse Resp BP Sys/Echevarria Pulse Ox Last 24 Hr 97.8 F-99.5 F 91-163 8-35 84-177/52-90 94-100 intubated, FiO2- 50% cor-rrr lungs decreased bs at bases abd soft, nt ext no edema CBC, BMP 06/15/18 05:30 06/15/18 05:30 Microbiology 06/11/18 17:49 Sputum - Expectorated Gram Stain - Final 06/11/18 17:49 Sputum - Expectorated Sputum Culture - Preliminary Acinetobacter Baumannii/Haemol 06/10/18 18:00 Blood - Peripheral Venous Blood Culture - Preliminary NO GROWTH OBTAINED AFTER 96 HOURS, INCUBATION TO CONTINUE FOR 1 DAYS. 06/10/18 17:00 Blood - Peripheral Venous Blood Culture - Preliminary NO GROWTH OBTAINED AFTER 96 HOURS, INCUBATION TO CONTINUE FOR 1 DAYS. 06/12/18 15:00 Stool Clostridium difficile Antigen (BENITO) - Final 06/12/18 15:00 Stool Clostridium difficile Toxin Assay - Final 05/27/18 17:42 Blood - Peripheral Venous Blood Culture - Final NO GROWTH AFTER 5 DAYS INCUBATION 05/27/18 17:42 Blood - Peripheral Venous Blood Culture - Final NO GROWTH AFTER 5 DAYS INCUBATION a/p hypoxemic respiratory failure HAP with multidrug resistant acinetobacter thrombocytopenia giovanna continue ivf while on polymyxin continue polymyxin blood cultures sputum culture work up thrombocytopenia d/c zosyn would continue vancomycin based on levels until repeat cultures are back overall 45 minutes spent in the care of this critically ill ICU patient d/w ICU resident early this am and again now d/w micro lab Problem List - Problems (1) Sepsis Code(s): A41.9 - SEPSIS, UNSPECIFIED ORGANISM (2) Acute on chronic respiratory failure with hypoxia and hypercapnia Code(s): J96.21 - ACUTE AND CHRONIC RESPIRATORY FAILURE WITH HYPOXIA; J96.22 - ACUTE AND CHRONIC RESPIRATORY FAILURE WITH HYPERCAPNIA (3) Hospital acquired PNA Code(s): J18.9 - PNEUMONIA, UNSPECIFIED ORGANISM
[2018-06-15] MEDS ORDERED: ERGOCALCIFEROL (VITAMIN D2) 50,000 UNIT CAPSULE (FP) PO SCH (10:00)
[2018-06-15] MEDS: TIOTROPIUM BROMIDE 2.5 MCG (SPIRIVA) RESPIMAT INHALER IH SCH (10:59)
[2018-06-15] MEDS: MUPIROCIN 2% TOPICAL OINTMENT FOR DECOLONIZATION NS SCH ×2 (11:03→22:24)
[2018-06-15] MEDS: PANTOPRAZOLE 20 MG TABLET (FP) PO SCH (11:03)
[2018-06-15] MEDS: FERROUS SO4 325 MG TABLET (FP) PO SCH (11:04)
[2018-06-15] MEDS: FOLIC ACID 1 MG TABLET (FP) PO SCH (11:04)
[2018-06-15] MEDS ORDERED: LACTATED RINGERS SOLUTION 1000 ML INFUS.BAG IV ONE (11:08)
[2018-06-15] MEDS: ROFLUMILAST 500 MCG TABLET PO SCH (11:11)
[2018-06-15] MEDS ORDERED: LACTATED RINGERS SOLUTION 1,000 ML/1,000 ML INFUS.BAG IV SCH ×2 (11:15→22:05)
--- NOTE | 2018-06-15 11:30 | CONSULT ---
Consultation: REQUESTING PROVIDER: Reza Walker CONSULT REQUEST: We have been asked to medically evaluate this patient for thrombocytopenia. HISTORY OF PRESENT ILLNESS: taken from chart as patient is intubated and sedated. 58 year old with a PMHx of HTN, COPD on 3L , chronic anemia, former smoker , multiple prior COPD exacerbations who presented today for shortness of breath associated associated with a productive cough. Admitted for acute COPD exacerbation. She was originally managed on floors with bipap. Her condition deteriorated and was transferred to ICU and found to be in ARDS. Of note her platlett count has continued to drop. She has no signs of overt bleeding but some frothy pink sputum. No history of thrombocytopenia in past. The lowest it has ever been was 128,000 in March of 2016. REVIEW OF SYSTEMS: Unable to obtain as patient is currently intubated and sedated. PHYSICAL EXAMINATION Vital Signs - 24 hr 06/14/18 06/14/18 06/14/18 12:00 13:47 13:49 Temperature 99.4 F Pulse Rate 117 H 91 H Respiratory 30 H 28 H Rate Blood Pressure 166/67 163/69 O2 Sat by Pulse 100 99 Oximetry (%) 06/14/18 06/14/18 06/14/18 13:56 15:25 15:36 Temperature Pulse Rate 102 H 108 H Respiratory 26 H Rate Blood Pressure 163/69 177/77 H O2 Sat by Pulse 99 Oximetry (%) 06/14/18 06/14/18 06/14/18 16:38 18:00 19:28 Temperature Pulse Rate 102 H 114 H Respiratory 28 H 30 H Rate Blood Pressure 161/52 L 164/79 O2 Sat by Pulse 99 Oximetry (%) 06/14/18 06/14/18 06/14/18 20:00 21:00 22:00 Temperature 98.9 F 98.8 F Pulse Rate 126 H 127 H 122 H Respiratory 31 H 31 H 31 H Rate Blood Pressure 161/83 173/67 H 171/87 H O2 Sat by Pulse 94 L 99 Oximetry (%) 06/14/18 06/14/18 06/14/18 22:07 22:08 23:00 Temperature Pulse Rate 122 H 130 H Respiratory 30 H Rate Blood Pressure 175/83 H O2 Sat by Pulse 99 99 Oximetry (%) 06/15/18 06/15/18 06/15/18 00:00 00:37 01:00 Temperature Pulse Rate 149 H 163 H Respiratory 22 H 31 H Rate Blood Pressure 169/90 162/80 O2 Sat by Pulse 98 Oximetry (%) 06/15/18 06/15/18 06/15/18 01:30 01:35 01:40 Temperature 99.2 F Pulse Rate 139 H 139 H Respiratory 19 24 H 24 H Rate Blood Pressure 120/72 120/72 O2 Sat by Pulse 97 Oximetry (%) 06/15/18 06/15/18 06/15/18 02:00 02:25 02:35 Temperature 98.2 F Pulse Rate 134 H 136 H Respiratory 35 H 18 21 H Rate Blood Pressure 93/57 L 104/64 O2 Sat by Pulse Oximetry (%) 06/15/18 06/15/18 06/15/18 03:00 04:00 05:00 Temperature Pulse Rate 134 H 132 H 123 H Respiratory 35 H 20 8 L Rate Blood Pressure 102/64 104/66 89/61 L O2 Sat by Pulse Oximetry (%) 06/15/18 06/15/18 06/15/18 05:12 06:00 06:49 Temperature 97.8 F Pulse Rate 123 H Respiratory 16 18 16 Rate Blood Pressure 98/53 L O2 Sat by Pulse Oximetry (%) 06/15/18 06/15/18 06/15/18 07:00 08:00 08:17 Temperature Pulse Rate 113 H 115 H 114 H Respiratory 22 H 24 H Rate Blood Pressure 84/52 L 85/52 L O2 Sat by Pulse 97 Oximetry (%) 06/15/18 06/15/18 08:34 10:00 Temperature 99.3 F Pulse Rate 113 H Respiratory 16 20 Rate Blood Pressure 90/58 L O2 Sat by Pulse Oximetry (%) GENERAL: sedated. HEAD: NC/AT EYES: PERRLA, sclera anicteric, conjunctiva clear. No lid lag. EARS, NOSE, THROAT: Moist mucous membranes. NECK: supple no lymphadenopathy, JVD, or masses. LUNGS: Intubated, Diminished breath sounds bilaterally, scattered crackles. HEART: tachycardic, normal S1 and S2 without murmur, rub or gallop. ABDOMEN: Soft, not distended, NABS, no hepato/spleno megally. MUSCULOSKELETAL: No bony deformities or tenderness. UPPER EXTREMITIES: 2+ pulses, warm, well-perfused. No cyanosis. No clubbing. No peripheral edema. LOWER EXTREMITIES: 2+ pulses, warm, well-perfused. No peripheral edema. NEUROLOGICAL: sedated SKIN: intact. Laboratory Results - last 24 hr 06/14/18 06/15/18 06/15/18 05:30 02:00 05:30 WBC 8.3 RBC 3.62 Hgb 8.0 L Hct 26.0 L MCV 71.9 L MCH 22.1 L MCHC 30.8 L RDW 16.2 H Plt Count 38 L D MPV 9.4 Neutrophils % (Manual) 99.0 H Band Neutrophils % 0.0 Lymphocytes % (Manual) 0.0 L Monocytes % (Manual) 1 L Eosinophils % (Manual) 0.0 Basophils % (Manual) 0.0 Myelocytes % (Man) 0 Promyelocytes % (Man) 0 Blast Cells % (Manual) 0 Metamyelocytes 0 Hypochromia 2+ Platelet Estimate Decreased Polychromasia 0 Poikilocytosis 1+ Anisocytosis 1+ Microcytosis 1+ Macrocytosis 0 Target Cells 1+ Schistocytes 1+ Puncture Site Right brachial ABG pH 7.30 L ABG pCO2 at Pt Temp 72.6 H* D ABG pO2 at Pt Temp 60.0 L D ABG HCO3 34.9 H ABG O2 Sat (Measured) 88.7 L ABG O2 Content 10.7 L ABG Base Excess 7.5 H Timmy Test Positive O2 Delivery Device Mech. vent Oxygen Flow Rate 40 Vent Mode A/c Vent Rate 14 PEEP 5.0 Pressure Support Vent 450 Sodium Potassium Chloride Carbon Dioxide Anion Gap BUN Creatinine Creat Clearance w eGFR Random Glucose Calcium Phosphorus Magnesium B-Natriuretic Peptide Random Vancomycin 06/15/18 06/15/18 06/15/18 05:30 05:30 10:10 WBC RBC Hgb Hct MCV MCH MCHC RDW Plt Count MPV Neutrophils % (Manual) Band Neutrophils % Lymphocytes % (Manual) Monocytes % (Manual) Eosinophils % (Manual) Basophils % (Manual) Myelocytes % (Man) Promyelocytes % (Man) Blast Cells % (Manual) Metamyelocytes Hypochromia Platelet Estimate Polychromasia Poikilocytosis Anisocytosis Microcytosis Macrocytosis Target Cells Schistocytes Puncture Site ABG pH ABG pCO2 at Pt Temp ABG pO2 at Pt Temp ABG HCO3 ABG O2 Sat (Measured) ABG O2 Content ABG Base Excess Timmy Test O2 Delivery Device Oxygen Flow Rate Vent Mode Vent Rate PEEP Pressure Support Vent Sodium 154 H Potassium 4.8 Chloride 114 H Carbon Dioxide 33 H Anion Gap 7 L BUN 59 H Creatinine 1.3 Creat Clearance w eGFR 41.92 Random Glucose 143 H Calcium 8.7 Phosphorus 3.2 Magnesium 2.2 B-Natriuretic Peptide 1850.2 H Random Vancomycin 16.8 L Active Medications Generic Name Dose Route Start Last Admin Trade Name Freq PRN Reason Stop Dose Admin Acetaminophen 650 mg 06/12/18 17:35 06/13/18 01:30 Tylenol - PO 650 mg Q6H PRN Administration PAIN LEVEL 6-10 Albuterol Sulfate 1 amp 06/12/18 17:35 06/14/18 21:10 Ventolin 0.083% Nebulizer Soln - NEB 1 amp Q1H PRN Administration SHORT OF BREATH/WHEEZING Amlodipine Besylate 10 mg 06/14/18 20:00 06/14/18 20:22 Norvasc - PO 10 mg DAILY ZACHARY Administration Chlorhexidine Gluconate 1 applic 06/12/18 22:00 06/14/18 22:01 Hibiclens For Decolonization - TP 1 applic HS ZACHARY Administration Diltiazem HCl 30 mg 06/12/18 18:00 06/15/18 05:41 Cardizem - PO 30 mg Q6HPO ZACHARY Administration Diltiazem HCl 10 mg 06/14/18 13:33 06/14/18 15:34 Cardizem Injection - IVPUSH 10 mg Q4H PRN Administration TACHYCARDIA Ergocalciferol 50,000 unit 06/15/18 10:00 06/15/18 10:59 Drisdol - PO Not Given Q7D@1000 ZACHARY Ferrous Sulfate 325 mg 06/13/18 10:00 06/15/18 11:04 Feosol - PO 325 mg DAILY ZACHARY Administration Folic Acid 1 mg 06/13/18 10:00 06/15/18 11:04 Folic Acid - PO 1 mg DAILY ZACHARY Administration Propofol 1,000,000 mcg in 100 mls @ 1.935 mls/hr 06/15/18 01:45 06/15/18 01: 50 Diprivan - IVPB 5 mcg/kg/min TITR ZACHARY 1.935 mls/hr Administration Protocol 5 MCG/KG/MIN Fentanyl 500 mcg/ Dextrose 100 mls @ 10 mls/hr 06/15/18 01:45 06/15/18 01:51 IVPB 50 mcg/hr TITR ZACHARY 10 mls/hr Administration Protocol 50 MCG/HR Lactated Ringer's 1,000 ml in 1,000 mls @ 100 mls/hr 06/15/18 11:15 Lactated Ringers Solution IV ASDIR ZACHARY Lactated Ringer's 1,000 ml 06/15/18 11:08 Lactated Ringers Solution IV 06/15/18 11:09 ONCE ONE Lorazepam 0.5 mg 06/12/18 17:35 06/15/18 00:11 Ativan Injection - IVPUSH 0.5 mg Q6H PRN Administration ANXIETY Methylprednisolone Sodium Succinate 40 mg 06/14/18 15:00 06/15/18 11:02 Solu-Medrol - IVPUSH 40 mg Q6H-IV ZACHARY Administration Montelukast Sodium 10 mg 06/12/18 22:00 06/14/18 22:00 Singulair - PO 10 mg HS ZACHARY Administration Morphine Sulfate 1 mg 06/14/18 09:24 06/15/18 00:27 Morphine Sulfate IVPUSH 1 mg Q4H PRN Administration PAIN LEVEL 6-10 Mupirocin 1 applic 06/12/18 22:00 06/15/18 11:03 Bactroban Ointment (For Decolonization) - NS 06/16/18 21:59 1 applic BID ZACHARY Administration Pantoprazole Sodium 20 mg 06/13/18 10:00 06/15/18 11:03 Protonix - PO Not Given DAILY ZACHARY Polyethylene Glycol 17 gm 06/12/18 17:35 Miralax (For Daily Use) - PO DAILY PRN CONSTIPATION Roflumilast 500 mcg 06/13/18 10:00 06/14/18 10:19 Daliresp - PO 500 mcg DAILY ZACHARY Administration Tiotropium [place] 2 puff 06/13/18 10:00 06/15/18 10:59 Spiriva Respimat IH Not Given DAILY ZACHARY ASSESSMENT/PLAN: 58 y/o F w/PMHx COPD (on home O2 3L), chronic anemia, HTN initially admitted to [facility] for COPD exacerbation, hospital course complicated by HAP requiring intubation and now in ICU Dispo: We will continue to follow the patient. Thank you for this consultative opportunity. Problem List - Problems (1) Thrombocytopenia Assessment/Plan: Given her current condition of sepsis and ARDS thrombocytopenia most likely multilateral * Will send d-dimer, fibrinogen , PT/INR to r/o DIC * Will check TSH as hyper/hypo thyroid can be cause. * Less likely HIT as she was on Lovenox. AC held. * She has also been on Zosyn which has been know to cause lower plt. Visit type - Emergency Visit Emergency Visit: Yes ED Registration Date: 05/27/18 Care time: The patient presented to the Emergency Department on the above date and was hospitalized for further evaluation of their emergent condition. - New Patient This patient is new to me today: Yes Date on this admission: 06/15/18 - Critical Care Critical Care patient: Yes Total Critical Care Time (in minutes): 47 Critical Care Statement: The care of this patient involved high complexity decision making to prevent further life threatening deterioration of the patient 's condition and/or to evaluate & treat vital organ system(s) failure or risk of failure.
[2018-06-15] MEDS: ALBUTEROL SO4 0.083% IH SOL 2.5 MG/3 ML VIAL.NEB. NEB PRN (12:00)
--- NOTE | 2018-06-15 12:34 | PN ---
Teaching Attending Note Name of Resident: Long Petersen ATTENDING PHYSICIAN STATEMENT I saw and evaluated the patient. I reviewed the resident's note and discussed the case with the resident. I agree with the resident's findings and plan as documented. SUBJECTIVE: Pt seen and examined in the ICU. Intubated overnight for respiratory failure. Currently intubated, sedated on volume assist control with 50% FiO2, PEEP 8. Ppeak 42, Pplat 24 on current settings. Bprderline hypotensive this AM. OBJECTIVE: Vital Signs Period Temp Pulse Resp BP Sys/Echevarria Pulse Ox Last 24 Hr 97.8 F-99.4 F 91-163 8-35 84-177/52-90 94-99 Intake & Output 06/12/18 06/13/18 06/14/18 06/15/18 23:59 23:59 23:59 23:59 Intake Total 1020 1710 1740 1079.5 Output Total 100 200 Balance 1020 1610 1740 879.5 Weight 65.998 kg 64.501 kg 63.321 kg Gen: intubated, sedated Heart: RRR Lung: bilateral rhonchi Abd: soft, nontender Ext: no edema CBC, BMP 06/15/18 05:30 06/15/18 05:30 ABG Results ABG pH 7.30 (7.35-7.45) L 06/15/18 02:00 ABG pCO2 at Pt Temp 72.6 mmHg (35-45) H* D 06/15/18 02:00 ABG pO2 at Pt Temp 60.0 mmHg (80-100) L D 06/15/18 02:00 ABG HCO3 34.9 meq/L (22-26) H 06/15/18 02:00 ABG O2 Sat (Measured) 88.7 % (90-98.9) L 06/15/18 02:00 ABG O2 Content 10.7 % vol (15-22) L 06/15/18 02:00 ABG Base Excess 7.5 meq/l (-2-2) H 06/15/18 02:00 Active Medications Acetaminophen (Tylenol -) 650 mg PO Q6H PRN PRN Reason: PAIN LEVEL 6-10 Last Admin: 06/13/18 01:30 Dose: 650 mg Albuterol Sulfate (Ventolin 0.083% Nebulizer Soln -) 1 amp NEB Q1H PRN PRN Reason: SHORT OF BREATH/WHEEZING Last Admin: 06/14/18 21:10 Dose: 1 amp Albuterol/Ipratropium (Duoneb -) 1 amp NEB Q4HPO [facility] Amlodipine Besylate (Norvasc -) 10 mg PO DAILY [facility] Last Admin: 06/14/18 20:22 Dose: 10 mg Chlorhexidine Gluconate (Hibiclens For Decolonization -) 1 applic TP HS [facility] Last Admin: 06/14/18 22:01 Dose: 1 applic Diltiazem HCl (Cardizem -) 30 mg PO Q6HPO [facility] Last Admin: 06/15/18 05:41 Dose: 30 mg Diltiazem HCl (Cardizem Injection -) 10 mg IVPUSH Q4H PRN PRN Reason: TACHYCARDIA Last Admin: 06/14/18 15:34 Dose: 10 mg Ergocalciferol (Drisdol -) 50,000 unit PO Q7D@1000 [facility] Last Admin: 06/15/18 10:59 Dose: Not Given Ferrous Sulfate (Feosol -) 325 mg PO DAILY [facility] Last Admin: 06/15/18 11:04 Dose: 325 mg Folic Acid (Folic Acid -) 1 mg PO DAILY [facility] Last Admin: 06/15/18 11:04 Dose: 1 mg Propofol (Diprivan -) 1,000,000 mcg in 100 mls @ 1.935 mls/hr IVPB TITR [facility]; Protocol Last Admin: 06/15/18 01:50 Dose: 5 mcg/kg/min, 1.935 mls/hr Fentanyl 500 mcg/ Dextrose 100 mls @ 10 mls/hr IVPB TITR [facility]; Protocol Last Titration: 06/15/18 11:56 Dose: 50 mcg/hr, 10 mls/hr Lactated Ringer's (Lactated Ringers Solution) 1,000 ml in 1,000 mls @ 100 mls/ hr IV ASDIR [facility]ACHARY Last Admin: 06/15/18 11:15 Dose: 100 mls/hr Lorazepam (Ativan Injection -) 0.5 mg IVPUSH Q6H PRN PRN Reason: ANXIETY Last Admin: 06/15/18 00:11 Dose: 0.5 mg Methylprednisolone Sodium Succinate (Solu-Medrol -) 40 mg IVPUSH Q6H-IV [facility] Last Admin: 06/15/18 11:02 Dose: 40 mg Montelukast Sodium (Singulair -) 10 mg PO HS [facility] Last Admin: 06/14/18 22:00 Dose: 10 mg Morphine Sulfate (Morphine Sulfate) 1 mg IVPUSH Q4H PRN PRN Reason: PAIN LEVEL 6-10 Last Admin: 06/15/18 00:27 Dose: 1 mg Mupirocin (Bactroban Ointment (For Decolonization) -) 1 applic NS BID [facility] Stop: 06/16/18 21:59 Last Admin: 06/15/18 11:03 Dose: 1 applic Pantoprazole Sodium (Protonix -) 20 mg PO DAILY [facility] Last Admin: 06/15/18 11:03 Dose: Not Given Polyethylene Glycol (Miralax (For Daily Use) -) 17 gm PO DAILY PRN PRN Reason: CONSTIPATION Roflumilast (Daliresp -) 500 mcg PO DAILY [facility] Last Admin: 06/15/18 11:11 Dose: Not Given ASSESSMENT AND PLAN: Acute on Chronic Hypoxic and Hypercapneic Respiratory Failure Pneumonia Acute COPD/Bronchiectasis Exacerbation r/o ARDS Severe Sepsis HTN - continue antibiotics - f/u cultures - IVF resuscitation - inhaled bronchodilators standing and PRN - continue medrol at current dose - monitor Ppeak, Pplat - low tidal volume ventilation 6cc/kg/IBW - keep Pplat <30 - taper Fio2 to keep Spo2 >90% - monitor ABG - keep sedated for vent synchrony at this time - enteral feeds in AM if unable to extubate - daily sedation vacations to assess mental status - DVT/GI prophylaxis - continue ICU monitoring critical care time spent in reviewing chart, evaluating patient and formulating plan 35 min
[2018-06-15 12:50] LABS: INR 1.18 (0.83-1.09); PROTHROMBIN TIME (PATIENT) 13.3 SEC (9.7-13.0)
--- NOTE | 2018-06-15 13:48 | PN ---
Physical Exam: SUBJECTIVE: Patient seen and examined at bedside, intubated overnight for respiratory distress and resulting hemodynamic instability. OBJECTIVE: Vital Signs Period Temp Pulse Resp BP Sys/Echevarria Pulse Ox Last 24 Hr 97.8 F-99.4 F 91-163 8-35 84-177/52-90 94-99 GENERAL: Intubated and sedated on propofol LUNGS: Decreased breath sounds and crackles b/l, mechanically ventilated HEART: Tachycardic ABDOMEN: Soft LOWER EXTREMITIES: warm, well-perfused. No peripheral edema. NEUROLOGICAL: unable to assess SKIN: Warm, dry Laboratory Results - last 24 hr 06/15/18 06/15/18 06/15/18 02:00 05:30 05:30 WBC 8.3 RBC 3.62 Hgb 8.0 L Hct 26.0 L MCV 71.9 L MCH 22.1 L MCHC 30.8 L RDW 16.2 H Plt Count 38 L D MPV 9.4 PT with INR INR Fibrinogen D-Dimer Puncture Site Right brachial ABG pH 7.30 L ABG pCO2 at Pt Temp 72.6 H* D ABG pO2 at Pt Temp 60.0 L D ABG HCO3 34.9 H ABG O2 Sat (Measured) 88.7 L ABG O2 Content 10.7 L ABG Base Excess 7.5 H Timmy Test Positive O2 Delivery Device Mech. vent Oxygen Flow Rate 40 Vent Mode A/c Vent Rate 14 PEEP 5.0 Pressure Support Vent 450 Sodium 154 H Potassium 4.8 Chloride 114 H Carbon Dioxide 33 H Anion Gap 7 L BUN 59 H Creatinine 1.3 Creat Clearance w eGFR 41.92 Random Glucose 143 H Calcium 8.7 Phosphorus 3.2 Magnesium 2.2 B-Natriuretic Peptide Random Vancomycin 06/15/18 06/15/18 06/15/18 05:30 10:10 12:10 WBC RBC Hgb Hct MCV MCH MCHC RDW Plt Count MPV PT with INR 13.30 H INR 1.18 H Fibrinogen D-Dimer Puncture Site ABG pH ABG pCO2 at Pt Temp ABG pO2 at Pt Temp ABG HCO3 ABG O2 Sat (Measured) ABG O2 Content ABG Base Excess Timmy Test O2 Delivery Device Oxygen Flow Rate Vent Mode Vent Rate PEEP Pressure Support Vent Sodium Potassium Chloride Carbon Dioxide Anion Gap BUN Creatinine Creat Clearance w eGFR Random Glucose Calcium Phosphorus Magnesium B-Natriuretic Peptide 1850.2 H Random Vancomycin 16.8 L 06/15/18 12:10 WBC RBC Hgb Hct MCV MCH MCHC RDW Plt Count MPV PT with INR INR Fibrinogen 899.0 H D-Dimer 1638 H Puncture Site ABG pH ABG pCO2 at Pt Temp ABG pO2 at Pt Temp ABG HCO3 ABG O2 Sat (Measured) ABG O2 Content ABG Base Excess Timmy Test O2 Delivery Device Oxygen Flow Rate Vent Mode Vent Rate PEEP Pressure Support Vent Sodium Potassium Chloride Carbon Dioxide Anion Gap BUN Creatinine Creat Clearance w eGFR Random Glucose Calcium Phosphorus Magnesium B-Natriuretic Peptide Random Vancomycin Active Medications Generic Name Dose Route Start Last Admin Trade Name Freq PRN Reason Stop Dose Admin Acetaminophen 650 mg 06/12/18 17:35 06/13/18 01:30 Tylenol - PO 650 mg Q6H PRN Administration PAIN LEVEL 6-10 Albuterol Sulfate 1 amp 06/12/18 17:35 06/15/18 12:00 Ventolin 0.083% Nebulizer Soln - NEB 1 amp Q1H PRN Administration SHORT OF BREATH/WHEEZING Albuterol/Ipratropium 1 amp 06/15/18 14:00 Duoneb - NEB Q4HPO [facility]ACH[facility] Amlodipine Besylate 10 mg 06/14/18 20:00 06/14/18 20:22 Norvasc - PO 10 mg DAILY [facility] Administration Chlorhexidine Gluconate 1 applic 06/12/18 22:00 06/14/18 22:01 Hibiclens For Decolonization - TP 1 applic HS [facility] Administration Diltiazem HCl 30 mg 06/12/18 18:00 06/15/18 05:41 Cardizem - PO 30 mg Q6HPO [facility]ACHARY Administration Diltiazem HCl 10 mg 06/14/18 13:33 06/14/18 15:34 Cardizem Injection - IVPUSH 10 mg Q4H PRN Administration TACHYCARDIA Ergocalciferol 50,000 unit 06/15/18 10:00 06/15/18 10:59 Drisdol - PO Not Given Q7D@1000 [facility]ACH[facility] Ferrous Sulfate 325 mg 06/13/18 10:00 06/15/18 11:04 Feosol - PO 325 mg DAILY [facility] Administration Folic Acid 1 mg 06/13/18 10:00 06/15/18 11:04 Folic Acid - PO 1 mg DAILY [facility] Administration Propofol 1,000,000 mcg in 100 mls @ 1.935 mls/hr 06/15/18 01:45 06/15/18 01: 50 Diprivan - IVPB 5 mcg/kg/min TITR [facility] 1.935 mls/hr Administration Protocol 5 MCG/KG/MIN Fentanyl 500 mcg/ Dextrose 100 mls @ 10 mls/hr 06/15/18 01:45 06/15/18 11:56 IVPB 50 mcg/hr TITR [facility] 10 mls/hr Titration Protocol 50 MCG/HR Lactated Ringer's 1,000 ml in 1,000 mls @ 100 mls/hr 06/15/18 11:15 06/15/18 11:15 Lactated Ringers Solution IV 100 mls/hr ASDIR ZACHARY Administration Tigecycline 100 mg/ Dextrose 100 mls @ 100 mls/hr 06/15/18 13:45 IVPB Q12H [facility] Protocol Azithromycin 500 mg/ Dextrose 250 mls @ 250 mls/hr 06/15/18 13:45 IVPB DAILY [facility] Lorazepam 0.5 mg 06/12/18 17:35 06/15/18 00:11 Ativan Injection - IVPUSH 0.5 mg Q6H PRN Administration ANXIETY Methylprednisolone Sodium Succinate 40 mg 06/14/18 15:00 06/15/18 11:02 Solu-Medrol - IVPUSH 40 mg Q6H-IV [facility] Administration Montelukast Sodium 10 mg 06/12/18 22:00 06/14/18 22:00 Singulair - PO 10 mg HS [facility] Administration Morphine Sulfate 1 mg 06/14/18 09:24 06/15/18 00:27 Morphine Sulfate IVPUSH 1 mg Q4H PRN Administration PAIN LEVEL 6-10 Mupirocin 1 applic 06/12/18 22:00 06/15/18 11:03 Bactroban Ointment (For Decolonization) - NS 06/16/18 21:59 1 applic BID [facility]ARY Administration Pantoprazole Sodium 20 mg 06/13/18 10:00 06/15/18 11:03 Protonix - PO Not Given DAILY [facility] Polyethylene Glycol 17 gm 06/12/18 17:35 Miralax (For Daily Use) - PO DAILY PRN CONSTIPATION Roflumilast 500 mcg 06/13/18 10:00 06/15/18 11:11 Daliresp - PO Not Given DAILY [facility] ASSESSMENT/PLAN: 58 y/o F w/PMHx COPD (on home O2 3L), chronic anemia, HTN initially admitted to [facility] for COPD exacerbation, hospital course complicated by HAP requiring bipap, progressed to ARDS, now intubated in ICU #ARDS -vent settings 50% FiO2, PEEP 8. Ppeak 42, Pplat 24 -serial CXR showing b/l infiltrates and worsening on L -pAO2/FiO2 ~150 -solumedrol 40 IV BID, duonebs standing q4 -tube feeding tomorrow if Pt cannot be extubated -repeat ABG pending #HAP - meets septic shock criteria - treating Acinetobacter w/ Polymixin B, Tigecycline, Azithromycin - BCx negative - must be on fluids d/t nephrotoxic agent #hemodynamics - mildly tachycardic and hypotensive - 1L bolus LR - standing LR @ 100 #thrombocytopenia -Plt fell to 32 -likely multifactorial d/t sepsis, ARDS, use of Lovenox (reduced but non-zero risk of HIT), use of Zosyn -hematology consulted -pending d-dimer, fibrinogen , PT/INR to r/o DIC, TSH as hyper/hypo thyroid can be cause -AC held -will monitor closely #Anemia - Hb stable - resume folate and iron when able to take PO - monitor CBC, transfusion threshhold 7 #RAOUL -resolving -monitor closely d/t nephrotoxic agents #Soft stool - C diff negative preliminarily #deconditioning - PT #FEN - LR @ 100 - BMP in AM - NPO #PPx - Lovenox held d/t thombocytopenia - SCDs #Dispo - ICU Visit type - Emergency Visit Emergency Visit: No - New Patient This patient is new to me today: No - Critical Care Critical Care patient: Yes Total Critical Care Time (in minutes): 40 Critical Care Statement: The care of this patient involved high complexity decision making to prevent further life threatening deterioration of the patient 's condition and/or to evaluate & treat vital organ system(s) failure or risk of failure.
[2018-06-15] MEDS ORDERED: ALBUTEROL SO4 2.5/IPRATROPIUM 0.5 INH SOL 3 ML VIAL.NEB. NEB SCH (14:00)
[2018-06-15 15:00] LABS: ARTERIAL BLOOD GAS BASE EXCESS 4.9 meq/l (-2-2)
[2018-06-15 15:06] LABS: ALLENS TEST POSITIVE
[2018-06-15 15:10] LABS: ARTERIAL BLOOD GAS PCO2 70.8 mmHg (35-45); ARTERIAL BLOOD GAS pH 7.28 (7.35-7.45)
[2018-06-15 15:11] LABS: ARTERIAL BLOOD GAS PO2 91.7 mmHg (80-100)
[2018-06-15] MEDS: TIGECYCLINE 100 MG in DEXTROSE 5%-WATER - 100 ML IVPB SCH (15:23)
[2018-06-15] MEDS: ACETYLCYSTEINE 20% 200MG/ML 4 ML VIAL *FOR ORAL / INH USE ONLY NEB SCH ×2 (15:37→20:40)
[2018-06-15] MEDS: ALBUTEROL SO4 0.083% IH SOL 2.5 MG/3 ML VIAL.NEB. NEB SCH ×2 (15:37→20:40)
[2018-06-15] MEDS: AZITHROMYCIN IVPB 500 MG in DEXTROSE 5%-WATER - 250 ML IVPB SCH (16:36)
--- NOTE | 2018-06-15 17:53 | PN ---
Physical Exam: SUBJECTIVE: Patient seen and examined at bedside. Patient was intubated overnight for respiratory distress, hypertension and tachycardia. OBJECTIVE: Vital Signs Period Temp Pulse Resp BP Sys/Echevarria Pulse Ox Last 24 Hr 97.8 F-99.3 F 108-163 8-35 84-175/52-90 94-99 GENERAL: Patient is sedated, intubated. NECK: Trachea midline, full range of motion, supple. LUNGS: + diffuse rhonchi bilaterally, decreased air entry HEART: Tachycardic, normal S1, S2 without murmur, rub or gallop. ABDOMEN: Soft, nontender, nondistended, normoactive bowel sounds. EXTREMITIES: 2+ pulses, warm, well-perfused, no edema. SKIN: Warm, dry, normal turgor, no rashes or lesions noted. Laboratory Results - last 24 hr 06/15/18 06/15/18 06/15/18 02:00 05:30 05:30 WBC 8.3 RBC 3.62 Hgb 8.0 L Hct 26.0 L MCV 71.9 L MCH 22.1 L MCHC 30.8 L RDW 16.2 H Plt Count 38 L D MPV 9.4 PT with INR INR Fibrinogen D-Dimer Puncture Site Right brachial ABG pH 7.30 L ABG pCO2 at Pt Temp 72.6 H* D ABG pO2 at Pt Temp 60.0 L D ABG HCO3 34.9 H ABG O2 Sat (Measured) 88.7 L ABG O2 Content 10.7 L ABG Base Excess 7.5 H Timmy Test Positive O2 Delivery Device [facility]. vent Oxygen Flow Rate 40 Vent Mode A/c Vent Rate 14 Mechanical Rate PEEP 5.0 Pressure Support Vent 450 Sodium 154 H Potassium 4.8 Chloride 114 H Carbon Dioxide 33 H Anion Gap 7 L BUN 59 H Creatinine 1.3 Creat Clearance w eGFR 41.92 Random Glucose 143 H Calcium 8.7 Phosphorus 3.2 Magnesium 2.2 B-Natriuretic Peptide Random Vancomycin 06/15/18 06/15/18 06/15/18 05:30 10:10 12:10 WBC RBC Hgb Hct MCV MCH MCHC RDW Plt Count MPV PT with INR 13.30 H INR 1.18 H Fibrinogen D-Dimer Puncture Site ABG pH ABG pCO2 at Pt Temp ABG pO2 at Pt Temp ABG HCO3 ABG O2 Sat (Measured) ABG O2 Content ABG Base Excess Timmy Test O2 Delivery Device Oxygen Flow Rate Vent Mode Vent Rate Mechanical Rate PEEP Pressure Support Vent Sodium Potassium Chloride Carbon Dioxide Anion Gap BUN Creatinine Creat Clearance w eGFR Random Glucose Calcium Phosphorus Magnesium B-Natriuretic Peptide 1850.2 H Random Vancomycin 16.8 L 06/15/18 06/15/18 12:10 14:50 WBC RBC Hgb Hct MCV MCH MCHC RDW Plt Count MPV PT with INR INR Fibrinogen 899.0 H D-Dimer 1638 H Puncture Site Right radial ABG pH 7.28 L ABG pCO2 at Pt Temp 70.8 H* ABG pO2 at Pt Temp 91.7 D ABG HCO3 32.2 H ABG O2 Sat (Measured) 97.0 ABG O2 Content 10.8 L ABG Base Excess 4.9 H Timmy Test Positive O2 Delivery Device Mech vent Oxygen Flow Rate 50% Vent Mode Ac Vent Rate 20 Mechanical Rate Yes PEEP 8.0 Pressure Support Vent 300 Sodium Potassium Chloride Carbon Dioxide Anion Gap BUN Creatinine Creat Clearance w eGFR Random Glucose Calcium Phosphorus Magnesium B-Natriuretic Peptide Random Vancomycin Active Medications Generic Name Dose Route Start Last Admin Trade Name Freq PRN Reason Stop Dose Admin Acetaminophen 650 mg 06/12/18 17:35 06/13/18 01:30 Tylenol - PO 650 mg Q6H PRN Administration PAIN LEVEL 6-10 Acetylcysteine 200 mg 06/15/18 16:00 06/15/18 15:37 Mucomyst 20 Oral / Inh Use Only* NEB 200 mg RQID ZACHARY Administration Albuterol Sulfate 1 amp 06/15/18 16:00 06/15/18 15:37 Ventolin 0.083% Nebulizer Soln - NEB 1 amp RQID ZACHARY Administration Albuterol Sulfate 1 amp 06/15/18 14:56 Ventolin 0.083% Nebulizer Soln - NEB Q1H PRN SHORT OF BREATH/WHEEZING Amlodipine Besylate 10 mg 06/14/18 20:00 06/14/18 20:22 Norvasc - PO 10 mg DAILY [facility] Administration Chlorhexidine Gluconate 1 applic 06/12/18 22:00 06/14/18 22:01 Hibiclens For Decolonization - TP 1 applic HS ZACHARY Administration Diltiazem HCl 30 mg 06/12/18 18:00 06/15/18 05:41 Cardizem - PO 30 mg Q6HPO ZACHARY Administration Diltiazem HCl 10 mg 06/14/18 13:33 06/14/18 15:34 Cardizem Injection - IVPUSH 10 mg Q4H PRN Administration TACHYCARDIA Ergocalciferol 50,000 unit 06/15/18 10:00 06/15/18 10:59 Drisdol - PO Not Given Q7D@1000 ZACHARY Ferrous Sulfate 325 mg 06/13/18 10:00 06/15/18 11:04 Feosol - PO 325 mg DAILY [facility] Administration Folic Acid 1 mg 06/13/18 10:00 06/15/18 11:04 Folic Acid - PO 1 mg DAILY [facility] Administration Propofol 1,000,000 mcg in 100 mls @ 1.935 mls/hr 06/15/18 01:45 06/15/18 14: 11 Diprivan - IVPB 15 mcg/kg/min TITR [facility]ACH[facility] 5.805 mls/hr Administration Protocol 5 MCG/KG/MIN Fentanyl 500 mcg/ Dextrose 100 mls @ 10 mls/hr 06/15/18 01:45 06/15/18 11:56 IVPB 50 mcg/hr TITR [facility]ACH[facility] 10 mls/hr Titration Protocol 50 MCG/HR Lactated Ringer's 1,000 ml in 1,000 mls @ 100 mls/hr 06/15/18 11:15 06/15/18 11:15 Lactated Ringers Solution IV 100 mls/hr ASDIR ZACHARY Administration Tigecycline 100 mg/ Dextrose 100 mls @ 100 mls/hr 06/15/18 14:45 06/15/18 15: 23 IVPB 100 mls/hr Q12H ZACHARY Administration Protocol Azithromycin 500 mg/ Dextrose 250 mls @ 250 mls/hr 06/15/18 14:30 06/15/18 16 :36 IVPB 250 mls/hr DAILY [facility] Administration Polymyxin B Sulfate 950,000 500 mls @ 250 mls/hr 06/16/18 10:00 unit/ Dextrose IVPB DAILY [facility] Methylprednisolone Sodium Succinate 40 mg 06/14/18 15:00 06/15/18 14:13 Solu-Medrol - IVPUSH 40 mg Q6H-IV ZACHARY Administration Montelukast Sodium 10 mg 06/12/18 22:00 06/14/18 22:00 Singulair - PO 10 mg HS ZACHARY Administration Morphine Sulfate 1 mg 06/14/18 09:24 06/15/18 00:27 Morphine Sulfate IVPUSH 1 mg Q4H PRN Administration PAIN LEVEL 6-10 Mupirocin 1 applic 06/12/18 22:00 06/15/18 11:03 Bactroban Ointment (For Decolonization) - NS 06/16/18 21:59 1 applic BID ZACHARY Administration Pantoprazole Sodium 20 mg 06/13/18 10:00 06/15/18 11:03 Protonix - PO Not Given DAILY [facility] Polyethylene Glycol 17 gm 06/12/18 17:35 Miralax (For Daily Use) - PO DAILY PRN CONSTIPATION Roflumilast 500 mcg 06/13/18 10:00 06/15/18 11:11 Daliresp - PO Not Given DAILY [facility] Imaging: Chest X-Ray (05/27/18): No significant interval change. Persistent bilateral increased interstitial markings. Differential diagnosis again includes chronic interstitial lung disease. Cannot rule out noncardiogenic mild pulmonary venous congestion or interstitial infiltrates. Chest X-ray (05/30/18): No acute pathology or significant change. Chest CT scan without contrast (05/31/18): Moderately severe COPD with extensive bilateral bronchiectasis. These findings are unchanged since a previous study of 02/07/18. There is no evidence of acute pathology within the chest. CXR (06/06/18) 2 views of the some minimal degenerative changes with wedging. The soft tissues are intact. The chest reveal a normal-sized heart, normal knob and normal geensis. There are some coarse lung changes. There may be some linear atelectasis/density by the left heart border. Since the prior study 05/30/18, the density by the left heart border has become apparent. This most likely represents a focal area of atelectasis. CXR (06/10/18): New pulmonary consolidation medial aspect of the left upper lung zone obscuring aortic arch. No pleural effusion, or pneumothorax seen. No evidence of vascular congestive changes. CXR (06/13/18): Resolving segmental left upper lobe pneumonia. Left lower lobe pneumonia unchanged. CXR (06/14/18): No significant change in left sided infiltrates. ASSESSMENT/PLAN: Patient is a 58 year old female who presented with shortness of breath and found to be in COPD exacerbation. #Acute Respiratory Distress Syndrome - Patient intubated overnight due to respiratory distress and hemodynamic instability. - Solu-medrol 40 mg IV BID - Duonebs q4 STA - repeat ABG: pH 7.28, pCO2 70.8, pO2 91.7, HCO3 32.2 #Hospital acquired pneumonia - CXR - worsening left lung pneumonia - Sputum culture - Acinetobacter baumanii/haemol. - ID (Dr. Tao) consulted. Recommendations appreciated. - Discontinue Vanc/Zosyn - Start Polymixin B, Tigecycline, Azithromycin - Must be on continuous IV fluids due to Nephrotoxic antibiotics. #Acute on Chronic COPD exacerbation : - may be 2/2 CAP vs inhaled chemicals (house paint) - Pulmonary Consult. Recs appreciated: - Continue NIPPV - Increase solu-medrol dose 40mg to q6h - Duonebs QID - Albuterol PRN - Add Daliresp (500mcg daily) - Symbicort not given. Pt reports allergy to symbicort. - Keep O2 satn >90% - Chest PT BID - Pt has frequent exacerbations, may need to be on chronic low dose steroids at home. #Left-sided Chest Pain: likely pleuritic - may be empyema - further work-up with chest CT once patient is stable - unlikely cardiac in nature - Tylenol PRN for pain. #Microcytic Anemia - likely due to RUBY - now at baseline Hgb - Fe Panel previously showed low Fe, low Fesat, low-normal ferritin - Continue Fe supplements - will trend CBC #Thrombocytopenia: plt 38 - likely multifactorial; r/o DIC - PT - 13.3, INR 1.18, Fibrinogen 899, D-dimer 1638 - Hold Lovenox - will monitor closely - Hematology (Dr. Covington) consulted. #Hypertension - Hypotensive today. Hold Cardizem 30mg q6h - Add Cardizem IV PRN for hypertension/tachycardia - IV fluids given. - Monitor BP closely #FEN - not on fluids - lytes wnl - Sodium controlled diet #Prophylaxis - Hold Lovenox for now. Patient has low platelet count. #Disposition - To ICU for closer monitoring. Visit type - Emergency Visit Emergency Visit: Yes ED Registration Date: 05/27/18 Care time: The patient presented to the Emergency Department on the above date and was hospitalized for further evaluation of their emergent condition. - New Patient This patient is new to me today: Yes Date on this admission: 06/15/18 - Critical Care Critical Care patient: Yes Total Critical Care Time (in minutes): 40 Critical Care Statement: The care of this patient involved high complexity decision making to prevent further life threatening deterioration of the patient 's condition and/or to evaluate & treat vital organ system(s) failure or risk of failure.
--- NOTE | 2018-06-15 18:05 | PN ---
Teaching Attending Note Name of Resident: Kuldeep Lay ATTENDING PHYSICIAN STATEMENT I saw and evaluated the patient. I reviewed the resident's note and discussed the case with the resident. I agree with the resident's findings and plan as documented. SUBJECTIVE:Patient seen and examined Thrombocytopenia in the setting of sepsis and ARDS . Previously normal platelet counts. Agree that likeliest etiology is sepsis. Elevated fibrinogen ( acute phase) speaks against DIC. PT/INR mildly elevated. Multiple ecchymoses abdominal wall from lovenox. Antibiotics changed with zosyn discontinued. Polymyxin not associated with thrombocytopenia and tigrecycline is associated with < 2% incidence of thrombocytopenia . HITS antibody ordered . To monitor CBC/platelets / and coags. May require platelet infusion with continued fall or if bleeding diathesis OBJECTIVE: ASSESSMENT AND PLAN:
--- NOTE | 2018-06-15 18:33 | PN ---
Teaching Attending Note Name of Resident: Babs Flores ATTENDING PHYSICIAN STATEMENT I saw and evaluated the patient. I reviewed the resident's note and discussed the case with the resident. I agree with the resident's findings and plan as documented with exceptions below. SUBJECTIVE: Patient seen and examined. intubated sedated, comfortable, unable to assess for ROS. OBJECTIVE: Vital Signs Period Temp Pulse Resp BP Sys/Echevarria Pulse Ox Last 24 Hr 97.8 F-99.3 F 108-163 8-35 84-175/52-90 94-99 Intake & Output 06/12/18 06/13/18 06/14/18 06/15/18 23:59 23:59 23:59 23:59 Intake Total 1020 1710 1740 2983.5 Output Total 100 200 Balance 1020 1610 1740 2783.5 Weight 145 lb 8 oz 142 lb 3.2 oz 139 lb 9.6 oz General: intubated sedated in bed Chest: bilateral rhoncherous breath sounds, increased left base Abdomen: soft, NT, no voluntary or involuntary guarding or rigidity, positive bowel sounds Extremities: no edema. Active Medications Acetaminophen (Tylenol -) 650 mg PO Q6H PRN PRN Reason: PAIN LEVEL 6-10 Last Admin: 06/13/18 01:30 Dose: 650 mg Acetylcysteine (Mucomyst 20 Oral / Inh Use Only*) 200 mg NEB RQID [facility] Last Admin: 06/15/18 15:37 Dose: 200 mg Albuterol Sulfate (Ventolin 0.083% Nebulizer Soln -) 1 amp NEB RQID [facility] Last Admin: 06/15/18 15:37 Dose: 1 amp Albuterol Sulfate (Ventolin 0.083% Nebulizer Soln -) 1 amp NEB Q1H PRN PRN Reason: SHORT OF BREATH/WHEEZING Amlodipine Besylate (Norvasc -) 10 mg PO DAILY [facility] Last Admin: 06/14/18 20:22 Dose: 10 mg Chlorhexidine Gluconate (Hibiclens For Decolonization -) 1 applic TP HS [facility] Last Admin: 06/14/18 22:01 Dose: 1 applic Diltiazem HCl (Cardizem -) 30 mg PO Q6HPO [facility] Last Admin: 06/15/18 05:41 Dose: 30 mg Diltiazem HCl (Cardizem Injection -) 10 mg IVPUSH Q4H PRN PRN Reason: TACHYCARDIA Last Admin: 06/14/18 15:34 Dose: 10 mg Ergocalciferol (Drisdol -) 50,000 unit PO Q7D@1000 [facility] Last Admin: 06/15/18 10:59 Dose: Not Given Ferrous Sulfate (Feosol -) 325 mg PO DAILY [facility] Last Admin: 06/15/18 11:04 Dose: 325 mg Folic Acid (Folic Acid -) 1 mg PO DAILY [facility] Last Admin: 06/15/18 11:04 Dose: 1 mg Propofol (Diprivan -) 1,000,000 mcg in 100 mls @ 1.935 mls/hr IVPB TITR [facility]; Protocol Last Admin: 06/15/18 14:11 Dose: 15 mcg/kg/min, 5.805 mls/hr Fentanyl 500 mcg/ Dextrose 100 mls @ 10 mls/hr IVPB TITR [facility]; Protocol Last Titration: 06/15/18 11:56 Dose: 50 mcg/hr, 10 mls/hr Lactated Ringer's (Lactated Ringers Solution) 1,000 ml in 1,000 mls @ 100 mls/ hr IV ASDIR [facility] Last Admin: 06/15/18 11:15 Dose: 100 mls/hr Tigecycline 100 mg/ Dextrose 100 mls @ 100 mls/hr IVPB Q12H [facility]; Protocol Last Admin: 06/15/18 15:23 Dose: 100 mls/hr Azithromycin 500 mg/ Dextrose 250 mls @ 250 mls/hr IVPB DAILY [facility] Last Admin: 06/15/18 16:36 Dose: 250 mls/hr Polymyxin B Sulfate 950,000 (unit/ Dextrose) 500 mls @ 250 mls/hr IVPB DAILY [facility] Methylprednisolone Sodium Succinate (Solu-Medrol -) 40 mg IVPUSH Q6H-IV [facility] Last Admin: 06/15/18 14:13 Dose: 40 mg Montelukast Sodium (Singulair -) 10 mg PO HS [facility] Last Admin: 06/14/18 22:00 Dose: 10 mg Morphine Sulfate (Morphine Sulfate) 1 mg IVPUSH Q4H PRN PRN Reason: PAIN LEVEL 6-10 Last Admin: 06/15/18 00:27 Dose: 1 mg Mupirocin (Bactroban Ointment (For Decolonization) -) 1 applic NS BID [facility] Stop: 06/16/18 21:59 Last Admin: 06/15/18 11:03 Dose: 1 applic Pantoprazole Sodium (Protonix -) 20 mg PO DAILY [facility] Last Admin: 06/15/18 11:03 Dose: Not Given Polyethylene Glycol (Miralax (For Daily Use) -) 17 gm PO DAILY PRN PRN Reason: CONSTIPATION Roflumilast (Daliresp -) 500 mcg PO DAILY [facility] Last Admin: 06/15/18 11:11 Dose: Not Given Laboratory Results - last 24 hr 06/15/18 06/15/18 06/15/18 02:00 05:30 05:30 WBC 8.3 RBC 3.62 Hgb 8.0 L Hct 26.0 L MCV 71.9 L MCH 22.1 L MCHC 30.8 L RDW 16.2 H Plt Count 38 L D MPV 9.4 PT with INR INR Fibrinogen D-Dimer Puncture Site Right brachial ABG pH 7.30 L ABG pCO2 at Pt Temp 72.6 H* D ABG pO2 at Pt Temp 60.0 L D ABG HCO3 34.9 H ABG O2 Sat (Measured) 88.7 L ABG O2 Content 10.7 L ABG Base Excess 7.5 H Timmy Test Positive O2 Delivery Device Mech. vent Oxygen Flow Rate 40 Vent Mode A/c Vent Rate 14 Mechanical Rate PEEP 5.0 Pressure Support Vent 450 Sodium 154 H Potassium 4.8 Chloride 114 H Carbon Dioxide 33 H Anion Gap 7 L BUN 59 H Creatinine 1.3 Creat Clearance w eGFR 41.92 Random Glucose 143 H Calcium 8.7 Phosphorus 3.2 Magnesium 2.2 B-Natriuretic Peptide Random Vancomycin 06/15/18 06/15/18 06/15/18 05:30 10:10 12:10 WBC RBC Hgb Hct MCV MCH MCHC RDW Plt Count MPV PT with INR 13.30 H INR 1.18 H Fibrinogen D-Dimer Puncture Site ABG pH ABG pCO2 at Pt Temp ABG pO2 at Pt Temp ABG HCO3 ABG O2 Sat (Measured) ABG O2 Content ABG Base Excess Timmy Test O2 Delivery Device Oxygen Flow Rate Vent Mode Vent Rate Mechanical Rate PEEP Pressure Support Vent Sodium Potassium Chloride Carbon Dioxide Anion Gap BUN Creatinine Creat Clearance w eGFR Random Glucose Calcium Phosphorus Magnesium B-Natriuretic Peptide 1850.2 H Random Vancomycin 16.8 L 06/15/18 06/15/18 12:10 14:50 WBC RBC Hgb Hct MCV MCH MCHC RDW Plt Count MPV PT with INR INR Fibrinogen 899.0 H D-Dimer 1638 H Puncture Site Right radial ABG pH 7.28 L ABG pCO2 at Pt Temp 70.8 H* ABG pO2 at Pt Temp 91.7 D ABG HCO3 32.2 H ABG O2 Sat (Measured) 97.0 ABG O2 Content 10.8 L ABG Base Excess 4.9 H Timmy Test Positive O2 Delivery Device Mech vent Oxygen Flow Rate 50% Vent Mode Ac Vent Rate 20 Mechanical Rate Yes PEEP 8.0 Pressure Support Vent 300 Sodium Potassium Chloride Carbon Dioxide Anion Gap BUN Creatinine Creat Clearance w eGFR Random Glucose Calcium Phosphorus Magnesium B-Natriuretic Peptide Random Vancomycin CXR - worsening airspace disease ASSESSMENT AND PLAN: 58yo F with PMH HTn, COPD on home O2 (3L NC) and anemia presented with dyspnea and cough on 05/27/2018, initially treated for COPD exac, course complicated by worsening respiratory status, new PNA, transferred to ICU on 06/12, now on Bipap -Acute on chronic hypercapnic respiratory failure, r/o ARDS -Sepsis due to CHIKI/LLL HAP with left pleural effusion, likely parapneumonic, ? empyema, suspected Acinetobacter PNA -Acute on chronic COPD/Bronchiectasis exacerbation -Acute thrombocytopenia, suspect from severe sepsis/suspected ARDS -Hypernatremia/hypercholoremia -Uncontrolled HTN, likely from respiratory distress, improved on sedation/vent -RAOUL on CKD, likely from sepsis/hypoperfusion, improved -Normocytic anemia Plan: Intubated overnight. Vent per ICU. Pulmonary input noted. ID input noted. Abx changed to Polymyxin B/Tigecycline/Azithromycin. Vanco levels in AM. Repeat CXR worse. IV hydration with caution while on polymyxin and monitor renal function. OG tube and free water flushes. Enteral feeds if unable to intubate in 24 hours Solumedrol. Nebs. Worsening thrombocytopenia, hematology input noted. Fibrinogen not consistent with DIC. transfuse platelets prn. Cardizem as tolerated. DVTPPX SCDs Dispo continue MICU level of monitoring. Prognosis poor, palliative consult. The care of this patient involved high complexity decision making to prevent further life threatening deterioration of the patient's condition and/or to evaluate & treat vital organ system(s) failure or risk of failure. 45 minutes
--- NOTE | 2018-06-15 21:37 | PROC ---
Central Line Insertion Indication: Vasopressor Risks and Benefits Explained: Yes Consent on Chart: Yes Central Line: Triple Lumen Catheter Anesthesia: 1% Lidocaine Sterile Technique: Yes Ultrasound Guided Assistance: Yes Position: Right Internal Jugular Post Insertion: Yes: Bilateral Breath Sounds, Bilateral Chest Expansion, Chest X-Ray Ordered Sterile Dressing Applied: Yes
--- NOTE | 2018-06-15 21:41 | PN ---
Progress Note (short form) - Note Progress Note: At 9 pm 06/15/18, patient became hypotensive MAP 45-50 despite bolus of 500cc IVF. Hesitant to bolus more IVF due to ARDS status. emergent R IJ central line placed by Dr Hernadez PGY 1 under direct supervision of Dr Islas PGY 3 under indirect supervision of Dr Piedra ED attending. CXR obtained to confirm placement and Levophed gtt started. patient tachycardic at 1 AM, sinus tach on tele. cardizem 10 IV given with no improvement. patient then becomes severely tachypneic resp 40's-50's, lungs sounding ronchorous, a lot of upper respiratory secretions, o2 sat 93%. decision to intubate made and anesthesia called. vent settings peep 5, fio2 40% , tidal vol 450 (8cc/kg ideal body weight). Patients son contacted at 14 am and situation explained. Problem List - Problems (1) COPD exacerbation Code(s): J44.1 - CHRONIC OBSTRUCTIVE PULMONARY DISEASE W (ACUTE) EXACERBATION (2) COPD exacerbation Code(s): J44.1 - CHRONIC OBSTRUCTIVE PULMONARY DISEASE W (ACUTE) EXACERBATION
[2018-06-15] MEDS ORDERED: NOREPINEPHRINE BITARTRATE 4 MG/4 ML ML IV ONE (22:05)
[2018-06-15] MEDS: NOREPINEPHRINE BITARTRATE 8,000 MCG in DEXTROSE 5%-WATER - 492 ML IV SCH (22:20)
[2018-06-15] MEDS: CHLORHEXIDINE GLUCONATE 4% CLEANSER FOR DECOLONIZATION TP SCH (22:24)
[2018-06-15] MEDS: MONTELUKAST NA 10 MG TABLET PO SCH (22:25)
[2018-06-16] MEDS ORDERED: VANCOMYCIN 1,000 MG in DEXTROSE 5%-WATER - 250 ML IVPB ONE (00:57)
[2018-06-16] MEDS ORDERED: MEROPENEM 2 GM in DEXTROSE 5%-WATER 100 ML IVPB ONE (01:01)
[2018-06-16] MEDS ORDERED: TOBRAMYCIN SULFATE 120 MG in SODIUM CHLORIDE 100 ML IVPB ONE (01:04)
[2018-06-16] MEDS ORDERED: fentaNYL CITRATE 250 MCG/5 ML VIAL ONE ×3 (01:10→19:15)
[2018-06-16] MEDS: TIGECYCLINE 100 MG in DEXTROSE 5%-WATER - 100 ML IVPB SCH ×2 (03:13→14:37)
[2018-06-16] MEDS: methylPREDNISolone NA SUCC 40 MG/1 ML VIAL IVPUSH SCH ×4 (04:09→20:47)
[2018-06-16] MEDS: PROPOFOL 1,000,000 MCG/100 ML VIAL IVPB SCH (04:11)
[2018-06-16] MEDS: FENTANYL INJECTION 500 MCG in DEXTROSE 5%-WATER - 90 ML IVPB SCH ×2 (04:11→13:31)
[2018-06-16 06:05] LABS: HEMATOCRIT 25.5 % (32.4-45.2); HEMOGLOBIN 7.8 GM/dL (10.7-15.3); MCH 22.2 pg (25.7-33.7); MCHC 30.6 g/dl (32.0-36.0); MEAN CELL VOLUME 72.5 fl (80-96); MEAN PLT VOLUME 10.3 fl (7.5-11.1); PLATELET COUNT 42 K/MM3 (134-434); RBC 3.51 M/mm3 (3.60-5.2); RDW 16.3 % (11.6-15.6); WHITE BLOOD COUNT 10.8 K/mm3 (4.0-10.0)
[2018-06-16] MEDS: ALBUTEROL SO4 0.083% IH SOL 2.5 MG/3 ML VIAL.NEB. NEB SCH (07:20)
[2018-06-16] MEDS: ACETYLCYSTEINE 20% 200MG/ML 4 ML VIAL *FOR ORAL / INH USE ONLY NEB SCH (07:20)
--- NOTE | 2018-06-16 07:40 | PN ---
Teaching Attending Note Name of Resident: Babs Flores ATTENDING PHYSICIAN STATEMENT I saw and evaluated the patient. I reviewed the resident's note and discussed the case with the resident. I agree with the resident's findings and plan as documented with exceptions below. SUBJECTIVE: Patient seen and examined. intubated and sedated, unable to do ROS. OBJECTIVE: Vital Signs Period Temp Pulse Resp BP Sys/Echevarria Pulse Ox Last 24 Hr 98.0 F-99.3 F 88-126 14-26 68-150/44-65 94-99 Intake & Output 06/13/18 06/14/18 06/15/18 06/16/18 23:59 23:59 23:59 23:59 Intake Total 1710 1740 3183.5 2142 Output Total 100 200 150 Balance 1610 1740 2983.5 1991 Weight 145 lb 8 oz 142 lb 3.2 oz 139 lb 9.6 oz 153 lb 1.6 oz General: intubated sedated in bed Chest: limited exam, few scattered rales Abdomen: soft, ND, positive bowel sounds, no voluntary or involuntary guarding or rigidity, no suprapubic fullness Extremities: no pedal edema noted Active Medications Acetaminophen (Tylenol -) 650 mg PO Q6H PRN PRN Reason: PAIN LEVEL 6-10 Last Admin: 06/13/18 01:30 Dose: 650 mg Acetylcysteine (Mucomyst 20 Oral / Inh Use Only*) 200 mg NEB RQID [facility] Last Admin: 06/15/18 20:40 Dose: 200 mg Albuterol Sulfate (Ventolin 0.083% Nebulizer Soln -) 1 amp NEB RQID [facility] Last Admin: 06/15/18 20:40 Dose: 1 amp Albuterol Sulfate (Ventolin 0.083% Nebulizer Soln -) 1 amp NEB Q1H PRN PRN Reason: SHORT OF BREATH/WHEEZING Chlorhexidine Gluconate (Hibiclens For Decolonization -) 1 applic TP HS [facility] Last Admin: 06/15/18 22:24 Dose: 1 applic Diltiazem HCl (Cardizem -) 30 mg PO Q6HPO [facility] Last Admin: 06/15/18 05:41 Dose: 30 mg Diltiazem HCl (Cardizem Injection -) 10 mg IVPUSH Q4H PRN PRN Reason: TACHYCARDIA Last Admin: 06/14/18 15:34 Dose: 10 mg Ergocalciferol (Drisdol -) 50,000 unit PO Q7D@1000 [facility] Last Admin: 06/15/18 10:59 Dose: Not Given Ferrous Sulfate (Feosol -) 325 mg PO DAILY [facility] Last Admin: 06/15/18 11:04 Dose: 325 mg Folic Acid (Folic Acid -) 1 mg PO DAILY [facility] Last Admin: 06/15/18 11:04 Dose: 1 mg Propofol (Diprivan -) 1,000,000 mcg in 100 mls @ 1.935 mls/hr IVPB TITR [facility]; Protocol Last Titration: 06/16/18 06:25 Dose: 15 mcg/kg/min, 5.805 mls/hr Fentanyl 500 mcg/ Dextrose 100 mls @ 10 mls/hr IVPB TITR [facility]; Protocol Last Admin: 06/16/18 04:11 Dose: 75 mcg/hr, 15 mls/hr Tigecycline 100 mg/ Dextrose 100 mls @ 100 mls/hr IVPB Q12H [facility]; Protocol Last Admin: 06/16/18 03:13 Dose: 100 mls/hr Azithromycin 500 mg/ Dextrose 250 mls @ 250 mls/hr IVPB DAILY [facility] Last Admin: 06/15/18 16:36 Dose: 250 mls/hr Polymyxin B Sulfate 950,000 (unit/ Dextrose) 500 mls @ 250 mls/hr IVPB DAILY [facility] Norepinephrine Bitartrate 8, (000 mcg/ Dextrose) 500 mls @ 18.75 mls/hr IV TITR [facility]; Protocol Last Titration: 06/16/18 05:05 Dose: 10 mcg/min, 37.5 mls/hr Lactated Ringer's (Lactated Ringers Solution) 1,000 ml in 1,000 mls @ 75 mls/ hr IV ASDIR [facility] Last Admin: 06/15/18 22:27 Dose: 75 mls/hr Methylprednisolone Sodium Succinate (Solu-Medrol -) 40 mg IVPUSH Q6H-IV [facility] Last Admin: 06/16/18 04:09 Dose: 40 mg Montelukast Sodium (Singulair -) 10 mg PO HS [facility] Last Admin: 06/15/18 22:25 Dose: 10 mg Morphine Sulfate (Morphine Sulfate) 1 mg IVPUSH Q4H PRN PRN Reason: PAIN LEVEL 6-10 Last Admin: 06/15/18 00:27 Dose: 1 mg Mupirocin (Bactroban Ointment (For Decolonization) -) 1 applic NS BID [facility] Stop: 06/16/18 21:59 Last Admin: 06/15/18 22:24 Dose: 1 applic Pantoprazole Sodium (Protonix -) 20 mg PO DAILY [facility] Last Admin: 06/15/18 11:03 Dose: Not Given Polyethylene Glycol (Miralax (For Daily Use) -) 17 gm PO DAILY PRN PRN Reason: CONSTIPATION Roflumilast (Daliresp -) 500 mcg PO DAILY [facility] Last Admin: 06/15/18 11:11 Dose: Not Given Laboratory Results - last 24 hr 06/15/18 06/15/18 06/15/18 10:10 12:10 12:10 WBC RBC Hgb Hct MCV MCH MCHC RDW Plt Count MPV PT with INR 13.30 H INR 1.18 H Fibrinogen 899.0 H D-Dimer 1638 H Puncture Site ABG pH ABG pCO2 at Pt Temp ABG pO2 at Pt Temp ABG HCO3 ABG O2 Sat (Measured) ABG O2 Content ABG Base Excess Timmy Test O2 Delivery Device Oxygen Flow Rate Vent Mode Vent Rate Mechanical Rate PEEP Pressure Support Vent Random Vancomycin 16.8 L 06/15/18 06/16/18 14:50 05:30 WBC 10.8 H RBC 3.51 L Hgb 7.8 L Hct 25.5 L MCV 72.5 L MCH 22.2 L MCHC 30.6 L RDW 16.3 H Plt Count 42 L MPV 10.3 PT with INR INR Fibrinogen D-Dimer Puncture Site Right radial ABG pH 7.28 L ABG pCO2 at Pt Temp 70.8 H* ABG pO2 at Pt Temp 91.7 D ABG HCO3 32.2 H ABG O2 Sat (Measured) 97.0 ABG O2 Content 10.8 L ABG Base Excess 4.9 H Timmy Test Positive O2 Delivery Device Mech vent Oxygen Flow Rate 50% Vent Mode Ac Vent Rate 20 Mechanical Rate Yes PEEP 8.0 Pressure Support Vent 300 Random Vancomycin Microbiology 06/10/18 18:00 Blood - Peripheral Venous Blood Culture - Final NO GROWTH AFTER 5 DAYS INCUBATION 06/10/18 17:00 Blood - Peripheral Venous Blood Culture - Final NO GROWTH AFTER 5 DAYS INCUBATION 06/11/18 17:49 Sputum - Expectorated Gram Stain - Final 06/11/18 17:49 Sputum - Expectorated Sputum Culture - Preliminary Acinetobacter Baumannii/Haemol 06/12/18 15:00 Stool Clostridium difficile Antigen (BENITO) - Final 06/12/18 15:00 Stool Clostridium difficile Toxin Assay - Final 05/27/18 17:42 Blood - Peripheral Venous Blood Culture - Final NO GROWTH AFTER 5 DAYS INCUBATION 05/27/18 17:42 Blood - Peripheral Venous Blood Culture - Final NO GROWTH AFTER 5 DAYS INCUBATION CXR images and results reviewed ASSESSMENT AND PLAN: 58yo F with PMH HTn, COPD on home O2 (3L NC) and anemia presented with dyspnea and cough on 05/27/2018, initially treated for COPD exac, course complicated by worsening respiratory status, new PNA, transferred to ICU on 06/12, now on Bipap -Acute on chronic hypercapnic respiratory failure, r/o ARDS -Septic shock due to CHIKI/LLL HAP with left pleural effusion, likely parapneumonic, ?empyema, suspected Acinetobacter PNA -Acute on chronic COPD/Bronchiectasis exacerbation -Acute thrombocytopenia, suspect from severe sepsis/suspected ARDS -Hypernatremia/hypercholoremia -Uncontrolled HTN, likely from respiratory distress, now hypotensive -RAOUL on CKD, likely from septic shock/hypoperfusion, r/o obstruction -Normocytic anemia Plan: Overnight events noted. Vent management per ICU. Pressors for MAP >65. IVF with monitoring of respiratory status. ID input noted. Abx changed to Polymyxin B/Tigecycline/Azithromycin day 2s. Follow up Vanco levels. Repeat sputum cultures with GNB, follow up. Start enteral feeds. Free water flushes. Solumedrol. Nebs. Hematology input noted. Platelets overall unchanged today. Follow up HIT panel. Fibrinogen not consistent with DIC. transfuse platelets prn. Renal consult, renal/bladder US. Urology input for daily insertion, bladder scan. Off anti-hypertensives. DVTPPX SCDs Dispo continue MICU level of monitoring. Septic shock now with multiorgan failure, Prognosis poor, palliative consult noted, continue to address overall goals of care. The care of this patient involved high complexity decision making to prevent further life threatening deterioration of the patient's condition and/or to evaluate & treat vital organ system(s) failure or risk of failure. 45 minutes
[2018-06-16 08:17] LABS: ANION GAP 13 MMOL/L (8-16); BLOOD UREA NITROGEN 93 mg/dL (7-18); CALCIUM 7.3 mg/dL (8.5-10.1); CHLORIDE 99 mmol/L (98-107); CO2 26 mmol/L (21-32); CREATININE 2.9 mg/dL (0.55-1.3); GLUCOSE,RANDOM 199 mg/dL (74-106); MAGNESIUM 1.7 mg/dL (1.8-2.4); POTASSIUM 5.6 mmol/L (3.5-5.1); SODIUM 138 mmol/L (136-145)
[2018-06-16] MEDS ORDERED: LACTATED RINGERS SOLUTION 1,000 ML/1,000 ML INFUS.BAG IV SCH (08:24)
[2018-06-16] MEDS ORDERED: DEXTROSE 50%-WATER - 25 GM/50 ML VIAL IVPUSH ONE (08:40)
[2018-06-16] MEDS ORDERED: INSULIN REGULAR HUMAN 100 UNITS/ML *VIAL IVPUSH ONE (08:40)
[2018-06-16] MEDS ORDERED: CALCIUM GLUCONATE 10% - 1,000 MG/10 ML VIAL IVPUSH ONE (08:42)
[2018-06-16] MEDS ORDERED: ALBUTEROL SO4 0.083% IH SOL 2.5 MG/3 ML VIAL.NEB. NEB ONE (08:43)
[2018-06-16] MEDS ORDERED: DEXTROSE 50%-WATER 25 GM/50 ML DISP.SYRIN ONE (08:55)
[2018-06-16] MEDS ORDERED: INSULIN REGULAR HUMAN 100 UNITS/ML *VIAL ONE (08:55)
[2018-06-16] MEDS ORDERED: MAGNESIUM SULF 50% (8.12 MEQ/2 ML-1 GM VIAL) IVPB ONE (09:30)
[2018-06-16] MEDS: AZITHROMYCIN IVPB 500 MG in DEXTROSE 5%-WATER - 250 ML IVPB SCH (09:36)
[2018-06-16] MEDS ORDERED: WATER IVPB SCH (10:00)
[2018-06-16] MEDS ORDERED: DEXTROSE 5% IVPB SCH (10:00)
[2018-06-16] MEDS ORDERED: POLYMYXIN B SULFATE 500,000 UNIT VIAL IVPB ONE (10:00)
[2018-06-16] MEDS ORDERED: POLYMYXIN B SULFATE IVPB SCH (10:00)
[2018-06-16] MEDS: FOLIC ACID 1 MG TABLET (FP) PO SCH (11:11)
[2018-06-16] MEDS: FERROUS SO4 325 MG TABLET (FP) PO SCH (11:12)
[2018-06-16] MEDS: PANTOPRAZOLE 20 MG TABLET (FP) PO SCH (11:12)
[2018-06-16] MEDS: MUPIROCIN 2% TOPICAL OINTMENT FOR DECOLONIZATION NS SCH (11:12)
[2018-06-16 11:24] LABS: ARTERIAL BLD GAS O2 SATURATION 98.5 % (90-98.9); ARTERIAL BLOOD GAS BASE EXCESS -2.1 meq/l (-2-2); ARTERIAL BLOOD GAS PCO2 55.1 mmHg (35-45); ARTERIAL BLOOD GAS pH 7.27 (7.35-7.45)
[2018-06-16 11:25] LABS: ALLENS TEST POSITIVE
--- NOTE | 2018-06-16 11:37 | PN ---
Repeat PE for Septic Shock - Vital Signs Vital Signs: Vital Signs Temperature 98.9 F 06/16/18 10:00 Pulse Rate 82 06/16/18 10:00 Respiratory Rate 22 H 06/16/18 10:04 Blood Pressure 100/60 06/16/18 10:00 O2 Sat by Pulse Oximetry (%) 94 L 06/16/18 07:45 I have reviewed the most recent vital signs: Yes - PE CV for Spetic Shock: Regular Rate Lungs: Rales Vascular: Left Radial: 2+, Right Radial: 2+, Left Doralis Pedis: 2+, Right Dorsalis Pedis: 2+ Capillary Refill: <3 seconds Skin exam: Warm - Impression Impression: No fluid bolus indicated, pt not hypovolemic
[2018-06-16 11:43] LABS: ALBUMIN 1.3 g/dl (3.4-5.0); ALK PHOS 47 U/L (45-117); BILIRUBIN,TOTAL 0.4 mg/dL (0.2-1); SGOT/AST 16 U/L (15-37); SGPT/ALT 24 U/L (13-61); TOT PROT 3.7 g/dl (6.4-8.2)
[2018-06-16] MEDS: ALBUTEROL SO4 0.083% IH SOL 2.5 MG/3 ML VIAL.NEB. NEB PRN (11:51)
--- NOTE | 2018-06-16 12:00 | PN ---
Teaching Attending Note Name of Resident: Long Petersen ATTENDING PHYSICIAN STATEMENT I saw and evaluated the patient. I reviewed the resident's note and discussed the case with the resident. I agree with the resident's findings and plan as documented. SUBJECTIVE: Patient seen and examined in the ICU. Events noted from overnight. Now intubated and sedated. 10mcq NE for hemodynamic support. AC mode vent, 50% FiO2. Mild breath stacking and increased Pplat noted (32). CXR: ETT in position dense consolidation Left / increasing infiltrates on the right. Intake & Output 06/13/18 06/14/18 06/15/18 06/16/18 23:59 23:59 23:59 23:59 Intake Total 1710 1740 3183.5 2142 Output Total 100 200 150 Balance 1610 1740 2983.5 1992 Weight 145 lb 8 oz 142 lb 3.2 oz 139 lb 9.6 oz 153 lb 1.6 oz Last Vital Signs Temp Pulse Resp BP Pulse Ox 98.9 F 82 22 H 100/60 94 L 06/16/18 10:00 06/16/18 10:00 06/16/18 11:51 06/16/18 10:00 06/16/18 07:45 Active Medications Acetaminophen (Tylenol -) 650 mg PO Q6H PRN PRN Reason: PAIN LEVEL 6-10 Last Admin: 06/13/18 01:30 Dose: 650 mg Albuterol Sulfate (Ventolin 0.083% Nebulizer Soln -) 1 amp NEB Q1H PRN PRN Reason: SHORT OF BREATH/WHEEZING Last Admin: 06/16/18 11:51 Dose: 1 amp Albuterol/Ipratropium (Duoneb -) 1 amp NEB Q4HPO [facility] Chlorhexidine Gluconate (Hibiclens For Decolonization -) 1 applic TP HS [facility] Last Admin: 06/15/18 22:24 Dose: 1 applic Diltiazem HCl (Cardizem -) 30 mg PO Q6HPO [facility] Last Admin: 06/15/18 05:41 Dose: 30 mg Diltiazem HCl (Cardizem Injection -) 10 mg IVPUSH Q4H PRN PRN Reason: TACHYCARDIA Last Admin: 06/14/18 15:34 Dose: 10 mg Ergocalciferol (Drisdol -) 50,000 unit PO Q7D@1000 [facility] Last Admin: 06/15/18 10:59 Dose: Not Given Ferrous Sulfate (Feosol) 300 mg GT DAILY [facility] Folic Acid (Folic Acid -) 1 mg PO DAILY [facility] Last Admin: 06/16/18 11:11 Dose: 1 mg Propofol (Diprivan -) 1,000,000 mcg in 100 mls @ 1.935 mls/hr IVPB TITR [facility]; Protocol Last Titration: 06/16/18 06:25 Dose: 15 mcg/kg/min, 5.805 mls/hr Fentanyl 500 mcg/ Dextrose 100 mls @ 10 mls/hr IVPB TITR [facility]; Protocol Last Admin: 06/16/18 04:11 Dose: 75 mcg/hr, 15 mls/hr Tigecycline 100 mg/ Dextrose 100 mls @ 100 mls/hr IVPB Q12H [facility]; Protocol Last Admin: 06/16/18 03:13 Dose: 100 mls/hr Azithromycin 500 mg/ Dextrose 250 mls @ 250 mls/hr IVPB DAILY [facility] Last Admin: 06/16/18 09:36 Dose: 250 mls/hr Polymyxin B Sulfate 950,000 (unit/ Dextrose) 500 mls @ 250 mls/hr IVPB DAILY [facility] Norepinephrine Bitartrate 8, (000 mcg/ Dextrose) 500 mls @ 18.75 mls/hr IV TITR [facility]; Protocol Last Titration: 06/16/18 05:05 Dose: 10 mcg/min, 37.5 mls/hr Lactated Ringer's (Lactated Ringers Solution) 1,000 ml in 1,000 mls @ 100 mls/ hr IV ASDIR [facility] Last Admin: 06/16/18 09:01 Dose: 100 mls/hr Methylprednisolone Sodium Succinate (Solu-Medrol -) 40 mg IVPUSH Q6H-IV [facility] Last Admin: 06/16/18 08:59 Dose: 40 mg Montelukast Sodium (Singulair -) 10 mg PO HS [facility] Last Admin: 06/15/18 22:25 Dose: 10 mg Morphine Sulfate (Morphine Sulfate) 1 mg IVPUSH Q4H PRN PRN Reason: PAIN LEVEL 6-10 Last Admin: 06/15/18 00:27 Dose: 1 mg Mupirocin (Bactroban Ointment (For Decolonization) -) 1 applic NS BID [facility] Stop: 06/16/18 21:59 Last Admin: 06/16/18 11:12 Dose: 1 applic Polyethylene Glycol (Miralax (For Daily Use) -) 17 gm PO DAILY PRN PRN Reason: CONSTIPATION Ranitidine HCl (Zantac Oral Solution -) 150 mg GT BID [facility] Roflumilast (Daliresp -) 500 mcg PO DAILY [facility] Last Admin: 06/15/18 11:11 Dose: Not Given Constitutional: Yes: Intubated and sedated Eyes: Yes: (-) Pallor HENT: Yes: WNL Neck: Yes: WNL Cardiovascular: Yes: Regular Rate and Rhythm, S1, S2 Respiratory: Yes: LLL crackles, (+) expiratory wheezing mostly on the right Gastrointestinal: Yes: Normal Bowel Sounds, Soft Extremities: Yes: WNL Edema: No Labs: Laboratory Results - last 24 hr 06/15/18 06/15/18 06/15/18 12:10 12:10 14:50 WBC RBC Hgb Hct MCV MCH MCHC RDW Plt Count MPV PT with INR 13.30 H INR 1.18 H Fibrinogen 899.0 H D-Dimer 1638 H Puncture Site Right radial ABG pH 7.28 L ABG pCO2 at Pt Temp 70.8 H* ABG pO2 at Pt Temp 91.7 D ABG HCO3 32.2 H ABG O2 Sat (Measured) 97.0 ABG O2 Content 10.8 L ABG Base Excess 4.9 H Timmy Test Positive O2 Delivery Device Mech vent Oxygen Flow Rate 50% Vent Mode Ac Vent Rate 20 Mechanical Rate Yes PEEP 8.0 Pressure Support Vent 300 Sodium Potassium Chloride Carbon Dioxide Anion Gap BUN Creatinine Creat Clearance w eGFR Random Glucose Calcium Phosphorus Magnesium Total Bilirubin AST ALT Alkaline Phosphatase Total Protein Albumin Random Vancomycin 06/16/18 06/16/18 06/16/18 05:30 05:30 08:45 WBC 10.8 H RBC 3.51 L Hgb 7.8 L Hct 25.5 L MCV 72.5 L MCH 22.2 L MCHC 30.6 L RDW 16.3 H Plt Count 42 L MPV 10.3 PT with INR INR Fibrinogen D-Dimer Puncture Site ABG pH ABG pCO2 at Pt Temp ABG pO2 at Pt Temp ABG HCO3 ABG O2 Sat (Measured) ABG O2 Content ABG Base Excess Timmy Test O2 Delivery Device Oxygen Flow Rate Vent Mode Vent Rate Mechanical Rate PEEP Pressure Support Vent Sodium 138 Potassium 5.6 H Chloride 99 Carbon Dioxide 26 Anion Gap 13 BUN 93 H Creatinine 2.9 H Creat Clearance w eGFR 16.61 Random Glucose 199 H Calcium 7.3 L Phosphorus 6.0 H Magnesium 1.7 L Total Bilirubin 0.4 AST 16 ALT 24 Alkaline Phosphatase 47 Total Protein 3.7 L Albumin 1.3 L Random Vancomycin 22.4 06/16/18 10:05 WBC RBC Hgb Hct MCV MCH MCHC RDW Plt Count MPV PT with INR INR Fibrinogen D-Dimer Puncture Site Right radial ABG pH 7.27 L ABG pCO2 at Pt Temp 55.1 H D ABG pO2 at Pt Temp 117.0 H D ABG HCO3 24.4 ABG O2 Sat (Measured) 98.5 ABG O2 Content 10.7 L ABG Base Excess -2.1 L Timmy Test Positive O2 Delivery Device Oxygen Flow Rate yes Vent Mode Vent Rate Mechanical Rate PEEP Pressure Support Vent Sodium Potassium Chloride Carbon Dioxide Anion Gap BUN Creatinine Creat Clearance w eGFR Random Glucose Calcium Phosphorus Magnesium Total Bilirubin AST ALT Alkaline Phosphatase Total Protein Albumin Random Vancomycin Problem List - Problems (1) COPD exacerbation Code(s): J44.1 - CHRONIC OBSTRUCTIVE PULMONARY DISEASE W (ACUTE) EXACERBATION (2) Shortness of breath Code(s): R06.02 - SHORTNESS OF BREATH (3) Bronchiectasis Code(s): J47.9 - BRONCHIECTASIS, UNCOMPLICATED (4) Chronic respiratory failure with hypoxia Code(s): J96.11 - CHRONIC RESPIRATORY FAILURE WITH HYPOXIA (5) Emphysema lung Code(s): J43.9 - EMPHYSEMA, UNSPECIFIED (6) Supplemental oxygen dependent Code(s): Z99.81 - DEPENDENCE ON SUPPLEMENTAL OXYGEN Assessment/Plan Acute Respiratory Failure Acute COPD Exacerbation Acute on Chronic Hypoxic/Hypercapneic Respiratory Failure HAP HTN RAOUL ANEMIA + TROPONIN - IV medrol - Check ABG and will make decisions about vent changes after - ABX as per ID - inhaled bronchodilators standing and PRN - O2 to keep SpO2 90% - Enteral feeds - DVT prophylaxis - Follow chest x-rays - Normal transfusion threshold - Pressors to maintain MAP > 65 - Will need continued ICU monitoring Dr Carty Critical care time spent in reviewing chart, evaluating patient and formulating plan - 36 minutes.
[2018-06-16] MEDS ORDERED: SODIUM CHLORIDE 1,000 ML IV SCH (12:15)
[2018-06-16] MEDS: ROFLUMILAST 500 MCG TABLET PO SCH (12:19)
[2018-06-16] MEDS: dilTIAZem HCL 30 MG TABLET (FP) PO SCH ×2 (12:19→17:14)
[2018-06-16] MEDS: SODIUM CHLORIDE 1,000 ML IV SCH (12:20)
[2018-06-16 12:39] LABS: URINE APPEARANCE CLOUDY; URINE BILIRUBIN NEGATIVE (<2.0 mg/dL); URINE COLOR YELLOW; URINE GLUCOSE (UA) 1+ (NEGATIVE); URINE KETONE NEGATIVE (NEGATIVE); URINE LEUK ESTERASE TRACE (NEGATIVE); URINE NITRITE NEGATIVE (NEGATIVE); URINE UROBILINOGEN NEGATIVE mg/dL (0.2-1.0)
[2018-06-16 12:43] LABS: URINE PROTEIN 1+ (NEGATIVE)
[2018-06-16] MEDS ORDERED: NOREPINEPHRINE BITARTRATE 4 MG/4 ML ML IV ONE (12:43)
--- NOTE | 2018-06-16 12:48 | CON.GU ---
Consult - History of Present Illness History of Present Illness: called to place daily in this pt who is intubated, and daily could not be placed by ICU staff. No history on chart. 14FR daily placed under sterile cionditions, clear urine retrieved - Past Medical History SCAFFOLDER: No: Dementia Cardio/Vascular: Yes: HTN, Pulmonary Hypertension. No: AFIB, CAD, CHF Pulmonary: Yes: Bronchitis, COPD, O2 Dependent, Other (bronchiectasis) Gastrointestinal: No: Ascites Hepatobiliary: Yes: Other (Fatty liver) ...LMP: 05/18/11 ...: No Psych: No: Addictions Musculoskeletal: Yes: Osteoarthritis Endocrine: No: Diabetes Mellitus - Past Surgical History Past Surgical History: Yes: None - Alcohol/Substance Use Hx Alcohol Use: No History of Substance Use: reports: None - Smoking History Smoking history: Former smoker Have you smoked in the past 12 months: No Aproximately how many cigarettes per day: 0 If you are a former smoker, when did you quit?: 2014 - Social History Usual Living Arrangement: Other (WITH FRIEND) ADL: Independent History of Recent Travel: No Home Medications - Allergies Allergies/Adverse Reactions: Allergies Allergy/AdvReac Type Severity Reaction Status Date / Time black walnut Allergy Severe Hives Verified 05/27/18 17:10 budesonide [From Symbicort] Allergy Severe Swelling Verified 05/27/18 20:28 formoterol [From Symbicort] Allergy Severe Swelling Verified 05/27/18 20:28 sulfamethoxazole Allergy Severe Swelling Verified 05/27/18 17:10 [From Bactrim] trimethoprim [From Bactrim] Allergy Severe Swelling Verified 05/27/18 17:10 PECAN Allergy Severe Hives Uncoded 05/27/18 17:10 - Home Medications Home Medications: Ambulatory Orders Cholecalciferol (Vitamin D3) [Vitamin D -] 50,000 unit PO WEEKLY 12/05/17 Albuterol Sulfate Inhaler - [Ventolin HFA Inhaler -] 1 - 2 inh PO Q4H PRN #1 inhaler 01/20/18 Ferrous Sulfate [Feosol] 325 mg PO DAILY 02/04/18 Fluticasone/Salmeterol [Advair 250-50 Diskus] 1 puff IN QID PRN 02/04/18 Folic Acid 1 mg PO DAILY 02/04/18 Umeclidinium [place] [Incruse Ellipta] 62.5 mcg IH DAILY 02/04/18 Diltiazem [Cardizem -] 30 mg PO TID 30 Days #90 tablet 02/12/18 Montelukast Na [Singulair -] 10 mg PO HS #30 tablet 02/12/18 Polyethylene Glycol 3350 [Miralax 119 gm Btl -] 17 gm PO DAILY PRN 5 Days #5 bottle 02/12/18 Albuterol Sulfate Inhaler - [Ventolin Hfa Inhaler -] 1 - 2 inh PO Q4H #1 inhaler 04/25/18 Ipratropium/Albuterol Sulfate [Combivent Respimat Inhal [place]] 4 gm IH BID #20 aer.w.adap 04/25/18 Physical Exam- Vital Signs: Vital Signs Temperature 98.9 F 06/16/18 10:00 Pulse Rate 77 06/16/18 11:00 Respiratory Rate 22 H 06/16/18 11:51 Blood Pressure 108/58 L 06/16/18 11:00 O2 Sat by Pulse Oximetry (%) 94 L 06/16/18 07:45 Labs: CBC, BMP 06/16/18 05:30 06/16/18 05:30 Problem List - Problems (1) Urinary retention Assessment/Plan: may remove daily when no longer medically necessary Code(s): R33.9 - RETENTION OF URINE, UNSPECIFIED
[2018-06-16 12:53] LABS: EPI CELLS RARE /HPF (FEW); URINE BACTERIA MANY /hpf (NONE SEEN)
[2018-06-16] MEDS: RANITIDINE HCL 150 MG/10 ML UNIT-DOSE GT SCH ×2 (13:33→21:04)
[2018-06-16] MEDS: FERROUS SO4 300 MG/5 ML ORAL SOLN UNIT DOSE CUPS GT SCH (13:33)
[2018-06-16] MEDS: ALBUTEROL SO4 2.5/IPRATROPIUM 0.5 INH SOL 3 ML VIAL.NEB. NEB SCH ×3 (13:41→21:12)
--- NOTE | 2018-06-16 14:01 | PN ---
Physical Exam: SUBJECTIVE: Patient seen and examined at bedside, intubated and sedated, central line placed and pressors started overnight for hypotension intractable to boluses. OBJECTIVE: Vital Signs Period Temp Pulse Resp BP Sys/Echevarria Pulse Ox Last 24 Hr 98.0 F-99.1 F 77-126 14-26 68-150/44-65 94-98 GENERAL: Intubated and sedated on propofol LUNGS: Decreased breath sounds and crackles b/l, mechanically ventilated HEART: Tachycardic ABDOMEN: Soft, mildly distended LOWER EXTREMITIES: warm, well-perfused. No peripheral edema. NEUROLOGICAL: unable to assess SKIN: Warm, dry Laboratory Results - last 24 hr 06/15/18 06/16/18 06/16/18 14:50 05:30 05:30 WBC 10.8 H RBC 3.51 L Hgb 7.8 L Hct 25.5 L MCV 72.5 L MCH 22.2 L MCHC 30.6 L RDW 16.3 H Plt Count 42 L MPV 10.3 Puncture Site Right radial ABG pH 7.28 L ABG pCO2 at Pt Temp 70.8 H* ABG pO2 at Pt Temp 91.7 D ABG HCO3 32.2 H ABG O2 Sat (Measured) 97.0 ABG O2 Content 10.8 L ABG Base Excess 4.9 H Timmy Test Positive O2 Delivery Device Mech vent Oxygen Flow Rate 50% Vent Mode Ac Vent Rate 20 Mechanical Rate Yes PEEP 8.0 Pressure Support Vent 300 Sodium 138 Potassium 5.6 H Chloride 99 Carbon Dioxide 26 Anion Gap 13 BUN 93 H Creatinine 2.9 H Creat Clearance w eGFR 16.61 Random Glucose 199 H Calcium 7.3 L Phosphorus 6.0 H Magnesium 1.7 L Total Bilirubin 0.4 AST 16 ALT 24 Alkaline Phosphatase 47 Total Protein 3.7 L Albumin 1.3 L Urine Color Urine Appearance Urine pH Ur Specific [place] Urine Protein Urine Glucose (UA) Urine Ketones Urine Blood Urine Nitrite Urine Bilirubin Urine Urobilinogen Ur Leukocyte Esterase Urine WBC (Auto) Urine RBC (Auto) Ur Epithelial Cells Urine Bacteria Urine Creatinine Random Vancomycin 06/16/18 06/16/18 06/16/18 08:45 10:05 12:00 WBC RBC Hgb Hct MCV MCH MCHC RDW Plt Count MPV Puncture Site Right radial ABG pH 7.27 L ABG pCO2 at Pt Temp 55.1 H D ABG pO2 at Pt Temp 117.0 H D ABG HCO3 24.4 ABG O2 Sat (Measured) 98.5 ABG O2 Content 10.7 L ABG Base Excess -2.1 L Timmy Test Positive O2 Delivery Device Oxygen Flow Rate yes Vent Mode Vent Rate Mechanical Rate PEEP Pressure Support Vent Sodium Potassium Chloride Carbon Dioxide Anion Gap BUN Creatinine Creat Clearance w eGFR Random Glucose Calcium Phosphorus Magnesium Total Bilirubin AST ALT Alkaline Phosphatase Total Protein Albumin Urine Color Yellow Urine Appearance Cloudy Urine pH 5.0 Ur Specific [place] 1.015 Urine Protein 1+ H Urine Glucose (UA) 1+ H Urine Ketones Negative Urine Blood 3+ H Urine Nitrite Negative Urine Bilirubin Negative Urine Urobilinogen Negative Ur Leukocyte Esterase Trace Urine WBC (Auto) 21 Urine RBC (Auto) 124 Ur Epithelial Cells Rare Urine Bacteria Many Urine Creatinine Random Vancomycin 22.4 06/16/18 06/16/18 12:00 12:00 WBC RBC Hgb Hct MCV MCH MCHC RDW Plt Count MPV Puncture Site ABG pH ABG pCO2 at Pt Temp ABG pO2 at Pt Temp ABG HCO3 ABG O2 Sat (Measured) ABG O2 Content ABG Base Excess Timmy Test O2 Delivery Device Oxygen Flow Rate Vent Mode Vent Rate Mechanical Rate PEEP Pressure Support Vent Sodium Potassium Chloride Carbon Dioxide Anion Gap BUN Creatinine Creat Clearance w eGFR Random Glucose Calcium Phosphorus Magnesium Total Bilirubin AST ALT Alkaline Phosphatase Total Protein Albumin Urine Color Urine Appearance Urine pH Ur Specific [place] Urine Protein Cancelled Urine Glucose (UA) Urine Ketones Urine Blood Urine Nitrite Urine Bilirubin Urine Urobilinogen Ur Leukocyte Esterase Urine WBC (Auto) Urine RBC (Auto) Ur Epithelial Cells Urine Bacteria Urine Creatinine Cancelled Random Vancomycin Active Medications Generic Name Dose Route Start Last Admin Trade Name Paulq PRN Reason Stop Dose Admin Acetaminophen 650 mg 06/12/18 17:35 06/13/18 01:30 Tylenol - PO 650 mg Q6H PRN Administration PAIN LEVEL 6-10 Albuterol Sulfate 1 amp 06/15/18 14:56 06/16/18 11:51 Ventolin 0.083% Nebulizer Soln - NEB 1 amp Q1H PRN Administration SHORT OF BREATH/WHEEZING Albuterol/Ipratropium 1 amp 06/16/18 14:00 Duoneb - NEB Q4HPO ZACHARY Chlorhexidine Gluconate 1 applic 06/12/18 22:00 09/26/18 22:24 Hibiclens For Decolonization - TP 1 applic HS ZACHARY Administration Diltiazem HCl 30 mg 06/12/18 18:00 06/16/18 12:19 Cardizem - PO Not Given Q6HPO ZACHARY Diltiazem HCl 10 mg 06/14/18 13:33 06/14/18 15:34 Cardizem Injection - IVPUSH 10 mg Q4H PRN Administration TACHYCARDIA Ergocalciferol 50,000 unit 06/15/18 10:00 06/15/18 10:59 Drisdol - PO Not Given Q7D@1000 ZACHARY Ferrous Sulfate 300 mg 06/16/18 10:00 Feosol GT DAILY ZACHARY Folic Acid 1 mg 06/13/18 10:00 06/16/18 11:11 Folic Acid - PO 1 mg DAILY ZACHARY Administration Propofol 1,000,000 mcg in 100 mls @ 1.935 mls/hr 06/15/18 01:45 06/16/18 06: 25 Diprivan - IVPB 15 mcg/kg/min TITR ZACHARY 5.805 mls/hr Titration Protocol 5 MCG/KG/MIN Fentanyl 500 mcg/ Dextrose 100 mls @ 10 mls/hr 06/15/18 01:45 06/16/18 04:11 IVPB 75 mcg/hr TITR ZACHARY 15 mls/hr Administration Protocol 50 MCG/HR Tigecycline 100 mg/ Dextrose 100 mls @ 100 mls/hr 06/15/18 14:45 06/16/18 03: 13 IVPB 100 mls/hr Q12H ZACHARY Administration Protocol Azithromycin 500 mg/ Dextrose 250 mls @ 250 mls/hr 06/15/18 14:30 06/16/18 09 :36 IVPB 250 mls/hr DAILY ZACHARY Administration Polymyxin B Sulfate 950,000 500 mls @ 250 mls/hr 06/16/18 10:00 unit/ Dextrose IVPB DAILY ZACHARY Norepinephrine Bitartrate 8, 500 mls @ 18.75 mls/hr 06/15/18 21:45 06/16/18 05:05 000 mcg/ Dextrose IV 10 mcg/min TITR ZACHARY 37.5 mls/hr Titration Protocol 5 MCG/MIN Sodium Chloride 1,000 mls @ 75 mls/hr 06/16/18 12:15 06/16/18 12:20 Normal Saline - IV 75 mls/hr ASDIR ZACHARY Administration Methylprednisolone Sodium Succinate 40 mg 06/14/18 15:00 06/16/18 08:59 Solu-Medrol - IVPUSH 40 mg Q6H-IV ZACHARY Administration Montelukast Sodium 10 mg 06/12/18 22:00 06/15/18 22:25 Singulair - PO 10 mg HS ZACHARY Administration Morphine Sulfate 1 mg 06/14/18 09:24 06/15/18 00:27 Morphine Sulfate IVPUSH 1 mg Q4H PRN Administration PAIN LEVEL 6-10 Mupirocin 1 applic 06/12/18 22:00 06/16/18 11:12 Bactroban Ointment (For Decolonization) - NS 06/16/18 21:59 1 applic BID ZACHARY Administration Polyethylene Glycol 17 gm 06/12/18 17:35 Miralax (For Daily Use) - PO DAILY PRN CONSTIPATION Ranitidine HCl 150 mg 06/16/18 11:30 Zantac Oral Solution - GT BID ZACHARY Roflumilast 500 mcg 06/13/18 10:00 06/16/18 12:19 Daliresp - PO Not Given DAILY ZACHARY ASSESSMENT/PLAN: 58 y/o F w/PMHx COPD (on home O2 3L), chronic anemia, HTN initially admitted to [facility] for COPD exacerbation, hospital course complicated by HAP requiring bipap, progressed to ARDS, now intubated in ICU #ARDS -ventilated: TV 300, Rate 22, Peak flow 80, PEEP 8 -central line placed, levophed to maintain MAP >65 -solumedrol 40 IV q6, duonebs standing q4, daliresp GT -NG tube placed -nepro to goal 42 cc/hr, 1L/24 hour target volume #RAOUL -Cr 1.3-->2.9 -Nephrology consulted -IVF per nephro reccs: NS 75 -urine Cr and lytes pending -monitor closely d/t nephrotoxic agents -14 [place] catheter placed by urology #HAP - meets septic shock criteria - treating Acinetobacter currently w/ Tigecycline, Azithromycin, ID on board - one dose each of tobramycin and vancomycin overnight - Polymixin held currently d/t RAOUL - following ID reccs - must be on fluids d/t nephrotoxic agents - IVF: NS 75 #hyperkalemia -K 5.6 this AM, given 10U insulin, D50, Ca gluconate, albuterol -repeat BMP this PM #thrombocytopenia -Plt today @ 42 -likely multifactorial d/t sepsis, ARDS, use of Lovenox (reduced but non-zero risk of HIT), use of Zosyn -hematology consulted -pending anti-Plt ABs, d-dimer, fibrinogen , PT/INR to r/o DIC, TSH as hyper/ hypo thyroid can be cause, -AC held -will monitor closely #Anemia - Hb stable - folate and iron GT - monitor CBC, transfusion threshhold 7 #Soft stool - C diff negative preliminarily #FEN - NS @ 75 - BMP in AM - nepro GT #PPx - DVT: SCDs - GI: Zantac GT #Dispo - ICU Visit type - Emergency Visit Emergency Visit: No - New Patient This patient is new to me today: No - Critical Care Critical Care patient: Yes Total Critical Care Time (in minutes): 40 Critical Care Statement: The care of this patient involved high complexity decision making to prevent further life threatening deterioration of the patient 's condition and/or to evaluate & treat vital organ system(s) failure or risk of failure.
--- NOTE | 2018-06-16 14:43 | PN ---
Progress Note (short form) - Note Progress Note: events noted now on pressors fi02 is 40% sedated Vital Signs intubated and sedated fi02 40% cor-rrr lung decreased bs at bases abd soft,nt ext no edema CBC, BMP 06/16/18 05:30 06/16/18 05:30 Microbiology 06/15/18 04:00 Sputum - Endotrachea Suction/Ventilator Gram Stain - Final 06/15/18 04:00 Sputum - Endotrachea Suction/Ventilator Sputum Culture - Preliminary Non Lactose Fermenting Gnb 06/15/18 09:30 Blood - Peripheral Venous Blood Culture - Preliminary NO GROWTH OBTAINED AFTER 24 HOURS, INCUBATION TO CONTINUE FOR 4 DAYS. 06/15/18 09:32 Blood - Peripheral Venous Blood Culture - Preliminary NO GROWTH OBTAINED AFTER 24 HOURS, INCUBATION TO CONTINUE FOR 4 DAYS. 06/11/18 17:49 Sputum - Expectorated Gram Stain - Final 06/11/18 17:49 Sputum - Expectorated Sputum Culture - Preliminary Acinetobacter Baumannii/Haemol 06/10/18 18:00 Blood - Peripheral Venous Blood Culture - Final NO GROWTH AFTER 5 DAYS INCUBATION 06/10/18 17:00 Blood - Peripheral Venous Blood Culture - Final NO GROWTH AFTER 5 DAYS INCUBATION 06/12/18 15:00 Stool Clostridium difficile Antigen (BENITO) - Final 06/12/18 15:00 Stool Clostridium difficile Toxin Assay - Final 05/27/18 17:42 Blood - Peripheral Venous Blood Culture - Final NO GROWTH AFTER 5 DAYS INCUBATION 05/27/18 17:42 Blood - Peripheral Venous Blood Culture - Final NO GROWTH AFTER 5 DAYS INCUBATION cxray- large left lung consolidaiton a/p hypoxemic respiratory failure HAP with multidrug resistant acinetobacter thrombocytopenia giovanna worsening await renal consult continue tygacil- just got minocycline delivered to the hospital will switch out with the tygacil continue zithromax will discuss polymyxin dosing with renal overall 45 minutes spent in the care of this critically ill ICU patient d/w ICU resident d/w micro lab Problem List - Problems (1) Sepsis Code(s): A41.9 - SEPSIS, UNSPECIFIED ORGANISM (2) Acute on chronic respiratory failure with hypoxia and hypercapnia Code(s): J96.21 - ACUTE AND CHRONIC RESPIRATORY FAILURE WITH HYPOXIA; J96.22 - ACUTE AND CHRONIC RESPIRATORY FAILURE WITH HYPERCAPNIA (3) Hospital acquired PNA Code(s): J18.9 - PNEUMONIA, UNSPECIFIED ORGANISM
--- NOTE | 2018-06-16 15:21 | CONSULT ---
Consult Consult Specialty:: Nephrology Reason for Consultation:: RAOUL - History of Present Illness Chief Complaint: called for RAOUL History of Present Illness: Pt is a 58 year old female with pmhx of COPD on 3l nc o2, anemia, HTN, sepsis and acute resp failure who develped renal failure. Pt has has a prolonged hospital course. Chart was reviewed. She developed respiratory distress which required intubation. She was started on pressors for hypotension. She is now in the ICU intubated and mechanically ventilated. She was found to have multi-drug resisitent acinetobacter. She is unable to give history. She was found to have worsening of her renal function over the last few days. Ramírez was just placed to monitor urine output. - History Source History Provided By: Patient - Past Medical History Cardio/Vascular: Yes: HTN, Pulmonary Hypertension Pulmonary: Yes: Bronchitis, COPD, O2 Dependent, Other (bronchiectasis) Hepatobiliary: Yes: Other (Fatty liver) Renal/: Yes: Renal Inusuff ...LMP: 05/18/11 ...: No Musculoskeletal: Yes: Osteoarthritis - Past Surgical History Past Surgical History: Yes: None - Alcohol/Substance Use Hx Alcohol Use: No History of Substance Use: reports: None - Smoking History Smoking history: Former smoker Have you smoked in the past 12 months: No Aproximately how many cigarettes per day: 0 If you are a former smoker, when did you quit?: 2014 - Social History Usual Living Arrangement: Other (WITH FRIEND) ADL: Independent History of Recent Travel: No Home Medications - Allergies Allergies/Adverse Reactions: Allergies Allergy/AdvReac Type Severity Reaction Status Date / Time black walnut Allergy Severe Hives Verified 05/27/18 17:10 budesonide [From Symbicort] Allergy Severe Swelling Verified 05/27/18 20:28 formoterol [From Symbicort] Allergy Severe Swelling Verified 05/27/18 20:28 sulfamethoxazole Allergy Severe Swelling Verified 05/27/18 17:10 [From Bactrim] trimethoprim [From Bactrim] Allergy Severe Swelling Verified 05/27/18 17:10 PECAN Allergy Severe Hives Uncoded 05/27/18 17:10 - Home Medications Home Medications: Ambulatory Orders Cholecalciferol (Vitamin D3) [Vitamin D -] 50,000 unit PO WEEKLY 12/05/17 Albuterol Sulfate Inhaler - [Ventolin HFA Inhaler -] 1 - 2 inh PO Q4H PRN #1 inhaler 01/20/18 Ferrous Sulfate [Feosol] 325 mg PO DAILY 02/04/18 Fluticasone/Salmeterol [Advair 250-50 Diskus] 1 puff IN QID PRN 02/04/18 Folic Acid 1 mg PO DAILY 02/04/18 Umeclidinium [place] [Incruse Ellipta] 62.5 mcg IH DAILY 02/04/18 Diltiazem [Cardizem -] 30 mg PO TID 30 Days #90 tablet 02/12/18 Montelukast Na [Singulair -] 10 mg PO HS #30 tablet 02/12/18 Polyethylene Glycol 3350 [Miralax 119 gm Btl -] 17 gm PO DAILY PRN 5 Days #5 bottle 02/12/18 Albuterol Sulfate Inhaler - [Ventolin Hfa Inhaler -] 1 - 2 inh PO Q4H #1 inhaler 04/25/18 Ipratropium/Albuterol Sulfate [Combivent Respimat Inhal [place]] 4 gm IH BID #20 aer.w.adap 04/25/18 Family Disease History - Family Disease History Family History: Unable to Obtain Review of Systems Unable to obtain ROS, reason: pt intubated Physical Exam Vital Signs: Vital Signs Temperature 98.9 F 06/16/18 10:00 Pulse Rate 76 06/16/18 14:00 Respiratory Rate 22 H 06/16/18 14:00 Blood Pressure 107/60 06/16/18 14:00 O2 Sat by Pulse Oximetry (%) 100 06/16/18 13:45 Constitutional: Yes: Mild Distress Eyes: Yes: Conjunctiva Clear HENT: Yes: Other (vesicular lesions on lips) Cardiovascular: Yes: S1, S2 Respiratory: Yes: Mechanically Ventilated Gastrointestinal: Yes: Soft Renal/: Yes: Ramírez Present Musculoskeletal: Yes: Muscle Weakness Edema: No Neurological: Yes: Lethargy Labs: CBC, BMP 06/16/18 05:30 06/16/18 05:30 Laboratory Tests 02/09/18 02/10/18 05/27/18 06:00 06:10 17:42 WBC BUN Creatinine 1.2 H 1.2 H 0.9 Creat Clearance w eGFR Urine Protein Urine Blood Ur Random Sodium 09/05/0705/31/18 06/11/18 06:30 06:20 06:00 WBC 44.0 H* BUN Creatinine 1.1 H 1.1 H Creat Clearance w eGFR Urine Protein Urine Blood Ur Random Sodium 06/12/18 06/13/18 06/14/18 05:45 05:30 05:30 WBC 36.5 H* BUN 51 H 51 H Creatinine 1.3 1.1 Creat Clearance w eGFR Urine Protein Urine Blood Ur Random Sodium 06/15/18 06/16/18 06/16/18 05:30 05:30 05:30 WBC 10.8 H BUN 59 H 93 H Creatinine 1.3 2.9 H Creat Clearance w eGFR 41.92 16.61 Urine Protein Urine Blood Ur Random Sodium 06/16/18 06/16/18 12:00 12:00 WBC BUN Creatinine Creat Clearance w eGFR Urine Protein 1+ H Urine Blood 3+ H Ur Random Sodium 20 L Imaging - Results Chest X-ray: Report Reviewed Ultrasound: Report Reviewed Problem List - Problems (1) RAOUL (acute kidney injury) Code(s): N17.9 - ACUTE KIDNEY FAILURE, UNSPECIFIED (2) CKD (chronic kidney disease) Code(s): N18.9 - CHRONIC KIDNEY DISEASE, UNSPECIFIED (3) COPD exacerbation Code(s): J44.1 - CHRONIC OBSTRUCTIVE PULMONARY DISEASE W (ACUTE) EXACERBATION (4) Hospital acquired PNA Code(s): J18.9 - PNEUMONIA, UNSPECIFIED ORGANISM (5) Sepsis Code(s): A41.9 - SEPSIS, UNSPECIFIED ORGANISM (6) COPD (chronic obstructive pulmonary disease) with acute bronchitis Code(s): J44.0 - CHRONIC OBSTRUCTIVE PULMON DISEASE W ACUTE LOWER RESP INFCT Assessment/Plan Current Medications Generic Name Dose Route Start Last Admin Trade Name Freq PRN Reason Stop Dose Admin Acetaminophen 650 mg 06/12/18 17:35 06/13/18 01:30 Tylenol - PO 650 mg Q6H PRN Administration PAIN LEVEL 6-10 Albuterol Sulfate 1 amp 06/15/18 14:56 06/16/18 11:51 Ventolin 0.083% Nebulizer Soln - NEB 1 amp Q1H PRN Administration SHORT OF BREATH/WHEEZING Albuterol/Ipratropium 1 amp 06/16/18 14:00 06/16/18 13:41 Duoneb - NEB 1 amp Q4HPO ZACHARY Administration Chlorhexidine Gluconate 1 applic 06/12/18 22:00 06/15/18 22:24 Hibiclens For Decolonization - TP 1 applic HS ZACHARY Administration Diltiazem HCl 30 mg 06/12/18 18:00 06/16/18 12:19 Cardizem - PO Not Given Q6HPO ZACHARY Diltiazem HCl 10 mg 06/14/18 13:33 06/14/18 15:34 Cardizem Injection - IVPUSH 10 mg Q4H PRN Administration TACHYCARDIA Ergocalciferol 50,000 unit 06/15/18 10:00 06/15/18 10:59 Drisdol - PO Not Given Q7D@1000 ZACHARY Ferrous Sulfate 300 mg 06/16/18 10:00 06/16/18 13:33 Feosol GT 300 mg DAILY ZACHARY Administration Folic Acid 1 mg 06/13/18 10:00 06/16/18 11:11 Folic Acid - PO 1 mg DAILY ZACHARY Administration Propofol 1,000,000 mcg in 100 mls @ 1.935 mls/hr 06/15/18 01:45 06/16/18 06: 25 Diprivan - IVPB 15 mcg/kg/min TITR ZACHARY 5.805 mls/hr Titration Protocol 5 MCG/KG/MIN Fentanyl 500 mcg/ Dextrose 100 mls @ 10 mls/hr 06/15/18 01:45 06/16/18 13:31 IVPB 75 mcg/hr TITR ZACHARY 15 mls/hr Administration Protocol 50 MCG/HR Azithromycin 500 mg/ Dextrose 250 mls @ 250 mls/hr 06/15/18 14:30 06/16/18 09 :36 IVPB 250 mls/hr DAILY ZACHARY Administration Polymyxin B Sulfate 950,000 500 mls @ 250 mls/hr 06/16/18 10:00 unit/ Dextrose IVPB DAILY ZACHARY Norepinephrine Bitartrate 8, 500 mls @ 18.75 mls/hr 06/15/18 21:45 06/16/18 05:05 000 mcg/ Dextrose IV 10 mcg/min TITR ZACHARY 37.5 mls/hr Titration Protocol 5 MCG/MIN Sodium Chloride 1,000 mls @ 75 mls/hr 06/16/18 12:15 06/16/18 12:20 Normal Saline - IV 75 mls/hr ASDIR ZACHARY Administration Minocycline HCl 200 mg/ 100 mls @ 100 mls/hr 06/17/18 03:00 Dextrose IVPB 06/17/18 03:59 ONCE ONE Minocycline HCl 100 mg/ 100 mls @ 100 mls/hr 06/17/18 15:00 Dextrose IVPB Q12H ZACHARY Methylprednisolone Sodium Succinate 40 mg 06/14/18 15:00 06/16/18 14:38 Solu-Medrol - IVPUSH 40 mg Q6H-IV ZACHARY Administration Montelukast Sodium 10 mg 06/12/18 22:00 06/15/18 22:25 Singulair - PO 10 mg HS ZACHARY Administration Morphine Sulfate 1 mg 06/14/18 09:24 06/15/18 00:27 Morphine Sulfate IVPUSH 1 mg Q4H PRN Administration PAIN LEVEL 6-10 Mupirocin 1 applic 06/12/18 22:00 06/16/18 11:12 Bactroban Ointment (For Decolonization) - NS 06/16/18 21:59 1 applic BID ZACHARY Administration Polyethylene Glycol 17 gm 06/12/18 17:35 Miralax (For Daily Use) - PO DAILY PRN CONSTIPATION Ranitidine HCl 150 mg 06/16/18 11:30 06/16/18 13:33 Zantac Oral Solution - GT 150 mg BID ZACHARY Administration Roflumilast 500 mcg 06/13/18 10:00 06/16/18 12:19 Daliresp - PO Not Given DAILY [facility] Microbiology 06/15/18 04:00 Sputum - Endotrachea Suction/Ventilator Gram Stain - Final 06/12/18 15:00 Stool Clostridium difficile Antigen (BENITO) - Final 06/12/18 15:00 Stool Clostridium difficile Toxin Assay - Final 06/11/18 17:49 Sputum - Expectorated Gram Stain - Final 06/10/18 18:00 Blood - Peripheral Venous Blood Culture - Final NO GROWTH AFTER 5 DAYS INCUBATION 06/10/18 17:00 Blood - Peripheral Venous Blood Culture - Final NO GROWTH AFTER 5 DAYS INCUBATION 05/27/18 17:42 Blood - Peripheral Venous Blood Culture - Final NO GROWTH AFTER 5 DAYS INCUBATION 05/27/18 17:42 Blood - Peripheral Venous Blood Culture - Final NO GROWTH AFTER 5 DAYS INCUBATION 06/15/18 09:32 Blood - Peripheral Venous Blood Culture - Preliminary NO GROWTH OBTAINED AFTER 24 HOURS, INCUBATION TO CONTINUE FOR 4 DAYS. 06/15/18 09:30 Blood - Peripheral Venous Blood Culture - Preliminary NO GROWTH OBTAINED AFTER 24 HOURS, INCUBATION TO CONTINUE FOR 4 DAYS. 06/15/18 04:00 Sputum - Endotrachea Suction/Ventilator Sputum Culture - Preliminary Non Lactose Fermenting Gnb 06/11/18 17:49 Sputum - Expectorated Sputum Culture - Preliminary Acinetobacter Baumannii/Haemol Impression 1. RAOUL 2. CKD 3. respiratory failure requiring intubation 4. sepsis 5. multi drug resistant Acinetobacter 6. copd exacerbation 7. anemia Plan - maintain foloy and monitor urine output - renal dose meds for a gfr of 16 - potassium treated medically - change fluids to ns, stop LR - vent support - daily cxr - renal ultrasound reviewed, suggestive of CKD - urine sodium is low, follow the rest of urine studies and calc fena - discussed with ICU team - cont pressure to maintain a map of 65 - RAOUL is likely multifactorial - will send renal workup - prognosis guarded Dr Marquez
[2018-06-16 18:39] LABS: ANION GAP 15 MMOL/L (8-16); CALCIUM 7.3 mg/dL (8.5-10.1); CHLORIDE 98 mmol/L (98-107); CO2 24 mmol/L (21-32); CREATININE 3.2 mg/dL (0.55-1.3); GLUCOSE,RANDOM 134 mg/dL (74-106); POTASSIUM 5.5 mmol/L (3.5-5.1); SODIUM 137 mmol/L (136-145)
[2018-06-16 18:45] LABS: BLOOD UREA NITROGEN 115 mg/dL (7-18)
[2018-06-16] MEDS ORDERED: CALCIUM GLUCONATE 10% - 1,000 MG/10 ML VIAL IVPB ONE (19:16)
[2018-06-16] MEDS ORDERED: SODIUM POLYSTYRENE SULFONATE 15 GM/60 ML BOTTLE PO ONE (19:16)
--- NOTE | 2018-06-16 20:25 | PN ---
Physical Exam: SUBJECTIVE: Patient seen and examined at bedside this morning. Patient was hypotensive last night. Patient was started on vasopressors. Central line was placed. OBJECTIVE: Vital Signs Period Temp Pulse Resp BP Sys/Echevarria Pulse Ox Last 24 Hr 98.2 F-99.1 F 75-126 20-26 74-122/48-65 94-100 GENERAL: Patient is sedated, intubated. NECK: Trachea midline, full range of motion, supple. LUNGS: + diffuse rhonchi bilaterally, decreased air entry HEART: Tachycardic, normal S1, S2 without murmur, rub or gallop. ABDOMEN: Soft, nontender, nondistended, normoactive bowel sounds. EXTREMITIES: 2+ pulses, warm, well-perfused, no edema. SKIN: Warm, dry, normal turgor, no rashes or lesions noted. Laboratory Results - last 24 hr 06/16/18 06/16/18 06/16/18 05:30 05:30 08:45 WBC 10.8 H RBC 3.51 L Hgb 7.8 L Hct 25.5 L MCV 72.5 L MCH 22.2 L MCHC 30.6 L RDW 16.3 H Plt Count 42 L MPV 10.3 Puncture Site ABG pH ABG pCO2 at Pt Temp ABG pO2 at Pt Temp ABG HCO3 ABG O2 Sat (Measured) ABG O2 Content ABG Base Excess Timmy Test Oxygen Flow Rate Sodium 138 Potassium 5.6 H Chloride 99 Carbon Dioxide 26 Anion Gap 13 BUN 93 H Creatinine 2.9 H Creat Clearance w eGFR 16.61 Random Glucose 199 H Calcium 7.3 L Phosphorus 6.0 H Magnesium 1.7 L Total Bilirubin 0.4 AST 16 ALT 24 Alkaline Phosphatase 47 Total Protein 3.7 L Albumin 1.3 L Urine Color Urine Appearance Urine pH Ur Specific [place] Urine Protein Urine Glucose (UA) Urine Ketones Urine Blood Urine Nitrite Urine Bilirubin Urine Urobilinogen Ur Leukocyte Esterase Urine WBC (Auto) Urine RBC (Auto) Ur Epithelial Cells Urine Bacteria U Random Total Protein Ur Random Sodium Ur Random Potassium Ur Random Chloride Urine Creatinine Random Vancomycin 22.4 06/16/18 06/16/18 06/16/18 10:05 12:00 12:00 WBC RBC Hgb Hct MCV MCH MCHC RDW Plt Count MPV Puncture Site Right radial ABG pH 7.27 L ABG pCO2 at Pt Temp 55.1 H D ABG pO2 at Pt Temp 117.0 H D ABG HCO3 24.4 ABG O2 Sat (Measured) 98.5 ABG O2 Content 10.7 L ABG Base Excess -2.1 L Timmy Test Positive Oxygen Flow Rate yes Sodium Potassium Chloride Carbon Dioxide Anion Gap BUN Creatinine Creat Clearance w eGFR Random Glucose Calcium Phosphorus Magnesium Total Bilirubin AST ALT Alkaline Phosphatase Total Protein Albumin Urine Color Yellow Urine Appearance Cloudy Urine pH 5.0 Ur Specific [place] 1.015 Urine Protein 1+ H Urine Glucose (UA) 1+ H Urine Ketones Negative Urine Blood 3+ H Urine Nitrite Negative Urine Bilirubin Negative Urine Urobilinogen Negative Ur Leukocyte Esterase Trace Urine WBC (Auto) 21 Urine RBC (Auto) 124 Ur Epithelial Cells Rare Urine Bacteria Many U Random Total Protein 133 H Ur Random Sodium 20 L Ur Random Potassium 46.0 Ur Random Chloride 17 L Urine Creatinine 72.0 H Random Vancomycin 06/16/18 06/16/18 06/16/18 12:00 12:00 16:00 WBC RBC Hgb Hct MCV MCH MCHC RDW Plt Count MPV Puncture Site ABG pH ABG pCO2 at Pt Temp ABG pO2 at Pt Temp ABG HCO3 ABG O2 Sat (Measured) ABG O2 Content ABG Base Excess Timmy Test Oxygen Flow Rate Sodium 137 Potassium 5.5 H Chloride 98 Carbon Dioxide 24 Anion Gap 15 BUN 115 H* Creatinine 3.2 H Creat Clearance w eGFR 14.83 Random Glucose 134 H Calcium 7.3 L Phosphorus Magnesium Total Bilirubin AST ALT Alkaline Phosphatase Total Protein Albumin Urine Color Urine Appearance Urine pH Ur Specific [place] Urine Protein Cancelled Urine Glucose (UA) Urine Ketones Urine Blood Urine Nitrite Urine Bilirubin Urine Urobilinogen Ur Leukocyte Esterase Urine WBC (Auto) Urine RBC (Auto) Ur Epithelial Cells Urine Bacteria U Random Total Protein Ur Random Sodium Ur Random Potassium Ur Random Chloride Urine Creatinine Cancelled Random Vancomycin Active Medications Generic Name Dose Route Start Last Admin Trade Name Freq PRN Reason Stop Dose Admin Acetaminophen 650 mg 06/12/18 17:35 06/13/18 01:30 Tylenol - PO 650 mg Q6H PRN Administration PAIN LEVEL 6-10 Albuterol Sulfate 1 amp 06/15/18 14:56 06/16/18 11:51 Ventolin 0.083% Nebulizer Soln - NEB 1 amp Q1H PRN Administration SHORT OF BREATH/WHEEZING Albuterol/Ipratropium 1 amp 06/16/18 14:00 06/16/18 18:00 Duoneb - NEB 1 amp Q4HPO ZACHARY Administration Chlorhexidine Gluconate 1 applic 06/12/18 22:00 06/15/18 22:24 Hibiclens For Decolonization - TP 1 applic HS ZACHARY Administration Diltiazem HCl 30 mg 06/12/18 18:00 06/16/18 17:14 Cardizem - PO Not Given Q6HPO ZACHARY Diltiazem HCl 10 mg 06/14/18 13:33 06/14/18 15:34 Cardizem Injection - IVPUSH 10 mg Q4H PRN Administration TACHYCARDIA Ergocalciferol 50,000 unit 06/15/18 10:00 06/15/18 10:59 Drisdol - PO Not Given Q7D@1000 ZACHARY Ferrous Sulfate 300 mg 06/16/18 10:00 06/16/18 13:33 Feosol GT 300 mg DAILY ZACHARY Administration Folic Acid 1 mg 06/13/18 10:00 06/16/18 11:11 Folic Acid - PO 1 mg DAILY ZACHARY Administration Propofol 1,000,000 mcg in 100 mls @ 1.935 mls/hr 06/15/18 01:45 06/16/18 06: 25 Diprivan - IVPB 15 mcg/kg/min TITR ZACHARY 5.805 mls/hr Titration Protocol 5 MCG/KG/MIN Fentanyl 500 mcg/ Dextrose 100 mls @ 10 mls/hr 06/15/18 01:45 06/16/18 13:31 IVPB 75 mcg/hr TITR ZACHARY 15 mls/hr Administration Protocol 50 MCG/HR Azithromycin 500 mg/ Dextrose 250 mls @ 250 mls/hr 06/15/18 14:30 06/16/18 09 :36 IVPB 250 mls/hr DAILY ZACHARY Administration Polymyxin B Sulfate 950,000 500 mls @ 250 mls/hr 06/16/18 10:00 unit/ Dextrose IVPB DAILY ZACHARY Norepinephrine Bitartrate 8, 500 mls @ 18.75 mls/hr 06/15/18 21:45 06/16/18 05:05 000 mcg/ Dextrose IV 10 mcg/min TITR ZACHARY 37.5 mls/hr Titration Protocol 5 MCG/MIN Sodium Chloride 1,000 mls @ 75 mls/hr 06/16/18 12:15 06/16/18 12:20 Normal Saline - IV 75 mls/hr ASDIR ZACHARY Administration Minocycline HCl 200 mg/ 100 mls @ 100 mls/hr 06/17/18 03:00 Dextrose IVPB 06/17/18 03:59 ONCE ONE Minocycline HCl 100 mg/ 100 mls @ 100 mls/hr 06/17/18 15:00 Dextrose IVPB Q12H ZACHARY Methylprednisolone Sodium Succinate 40 mg 06/14/18 15:00 06/16/18 14:38 Solu-Medrol - IVPUSH 40 mg Q6H-IV ZACHARY Administration Montelukast Sodium 10 mg 06/12/18 22:00 06/15/18 22:25 Singulair - PO 10 mg HS ZACHARY Administration Morphine Sulfate 1 mg 06/14/18 09:24 06/15/18 00:27 Morphine Sulfate IVPUSH 1 mg Q4H PRN Administration PAIN LEVEL 6-10 Mupirocin 1 applic 06/12/18 22:00 06/16/18 11:12 Bactroban Ointment (For Decolonization) - NS 06/16/18 21:59 1 applic BID ZACHARY Administration Polyethylene Glycol 17 gm 06/12/18 17:35 Miralax (For Daily Use) - PO DAILY PRN CONSTIPATION Ranitidine HCl 150 mg 06/16/18 11:30 06/16/18 13:33 Zantac Oral Solution - GT 150 mg BID ZACHARY Administration Roflumilast 500 mcg 06/13/18 10:00 06/16/18 12:19 Daliresp - PO Not Given DAILY [facility] Imaging: Chest X-Ray (05/27/18): No significant interval change. Persistent bilateral increased interstitial markings. Differential diagnosis again includes chronic interstitial lung disease. Cannot rule out noncardiogenic mild pulmonary venous congestion or interstitial infiltrates. Chest X-ray (05/30/18): No acute pathology or significant change. Chest CT scan without contrast (05/31/18): Moderately severe COPD with extensive bilateral bronchiectasis. These findings are unchanged since a previous study of 02/07/18. There is no evidence of acute pathology within the chest. CXR (06/06/18) 2 views of the some minimal degenerative changes with wedging. The soft tissues are intact. The chest reveal a normal-sized heart, normal knob and normal genesis. There are some coarse lung changes. There may be some linear atelectasis/density by the left heart border. Since the prior study 05/30/18, the density by the left heart border has become apparent. This most likely represents a focal area of atelectasis. CXR (06/10/18): New pulmonary consolidation medial aspect of the left upper lung zone obscuring aortic arch. No pleural effusion, or pneumothorax seen. No evidence of vascular congestive changes. CXR (06/13/18): Resolving segmental left upper lobe pneumonia. Left lower lobe pneumonia unchanged. CXR (06/14/18): No significant change in left sided infiltrates. ASSESSMENT/PLAN: Patient is a 58 year old female who presented with shortness of breath and found to be in COPD exacerbation. #Acute Respiratory Distress Syndrome - Patient intubated and started on vasopressor due to respiratory distress and hemodynamic instability. - Solu-medrol 40 mg IV q6 - Duonebs q4 STA - Daliresp GT - Nasogastric tube placed. - repeat ABG: pH 7.28, pCO2 70.8, pO2 91.7, HCO3 32.2 #Hospital acquired pneumonia - CXR - worsening left lung pneumonia - Sputum culture - Acinetobacter baumanii/haemol. - ID (Dr. Tao) consulted. Recommendations appreciated. - Discontinue Vanc/Zosyn - Continue Tigecycline, Azithromycin - Polymixin held currently due to RAOUL - One dose of Tobramycin and Vancomycin overnight. - Must be on continuous IV fluids due to Nephrotoxic antibiotics. #RAOUL on CKD: Cr from 1.3 to 2.9 -Renal ultrasound done. -Nephrology (Dr. Marquez) consulted. Recommendations appreciated. -Maintain daily and monitor Urine output -Renal dose meds for a GFR of 16 -Potassium treated medically -Change fluids to NS, stop LR -Daily CXR -Renal US - suggestive of CKD -Urine sodium is low, follow the rest of urine studies and calculate FeNa -Renal work-up sent -Continue pressors to maintain MAP of 65 -14 [place] catheter placed by urology #hyperkalemia: K 5.6 -10 units insulin/D50 given -Ca gluconate -Albuterol -repeat BMP: K 5.5 #Acute on Chronic COPD exacerbation : - may be 2/2 CAP vs inhaled chemicals (house paint) - Pulmonary Consult. Recs appreciated: - Continue NIPPV - Increase solu-medrol dose 40mg to q6h - Duonebs QID - Albuterol PRN - Add Daliresp (500mcg daily) - Symbicort not given. Pt reports allergy to symbicort. - Keep O2 satn >90% - Chest PT BID - Pt has frequent exacerbations, may need to be on chronic low dose steroids at home. #Left-sided Chest Pain: likely pleuritic - may be empyema - further work-up with chest CT once patient is stable - unlikely cardiac in nature - Tylenol PRN for pain. #Microcytic Anemia - likely due to RUBY - now at baseline Hgb - Fe Panel previously showed low Fe, low Fesat, low-normal ferritin - Continue Fe supplements and folate - will trend CBC, transfuse with Hgb<7 #Thrombocytopenia: plt 38 --> 42 - likely multifactorial; r/o DIC - PT - 13.3, INR 1.18, Fibrinogen 899, D-dimer 1638 - Hold Lovenox - will monitor closely - Hematology (Dr. Covington) consulted. Recommendations appreciated. #Hypertension - Hypotensive today. Hold Cardizem 30mg q6h - Add Cardizem IV PRN for hypertension/tachycardia - IV fluids given. - Monitor BP closely #FEN - IV NS @ 75ml/hr - routine bmp monitoring - Sodium controlled diet #Prophylaxis - Hold Lovenox for now. Patient has low platelet count. #Disposition - To ICU for closer monitoring. Visit type - Emergency Visit Emergency Visit: Yes ED Registration Date: 05/27/18 Care time: The patient presented to the Emergency Department on the above date and was hospitalized for further evaluation of their emergent condition. - New Patient This patient is new to me today: Yes Date on this admission: 06/16/18 - Critical Care Critical Care patient: Yes Total Critical Care Time (in minutes): 40 Critical Care Statement: The care of this patient involved high complexity decision making to prevent further life threatening deterioration of the patient 's condition and/or to evaluate & treat vital organ system(s) failure or risk of failure.
[2018-06-16] MEDS: CHLORHEXIDINE GLUCONATE 4% CLEANSER FOR DECOLONIZATION TP SCH (21:04)
[2018-06-16] MEDS: MONTELUKAST NA 10 MG TABLET PO SCH (21:04)
--- NOTE | 2018-06-16 22:22 | PN ---
Teaching Attending Note Name of Resident: Kuldeep Lay ATTENDING PHYSICIAN STATEMENT I saw and evaluated the patient. I reviewed the resident's note and discussed the case with the resident. I agree with the resident's findings and plan as documented. ASSESSMENT AND PLAN: Thrombocytopenia in the setting of sepsis and ARDS . Previously normal platelet counts. Agree that likeliest etiology is sepsis. Elevated fibrinogen ( acute phase) speaks against DIC. PT/INR mildly elevated. Multiple ecchymoses abdominal wall from lovenox. Antibiotics changed with zosyn discontinued. Polymyxin not associated with thrombocytopenia and tigrecycline is associated with < 2% incidence of thrombocytopenia . To monitor CBC/platelets / and coags. Platelet curve improving today
[2018-06-17 01:23] LABS: ANION GAP 10 MMOL/L (8-16); CALCIUM 7.3 mg/dL (8.5-10.1); CHLORIDE 98 mmol/L (98-107); CO2 25 mmol/L (21-32); CREATININE 3.6 mg/dL (0.55-1.3); GLUCOSE,RANDOM 129 mg/dL (74-106); POTASSIUM 5.7 mmol/L (3.5-5.1); SODIUM 132 mmol/L (136-145)
[2018-06-17 01:25] LABS: BLOOD UREA NITROGEN 127 mg/dL (7-18)
[2018-06-17] MEDS: ALBUTEROL SO4 2.5/IPRATROPIUM 0.5 INH SOL 3 ML VIAL.NEB. NEB SCH ×6 (02:40→22:15)
[2018-06-17] MEDS ORDERED: DEXTROSE 50%-WATER 25 GM/50 ML DISP.SYRIN IVPUSH ONE (02:54)
[2018-06-17] MEDS ORDERED: INSULIN REGULAR HUMAN 100 UNITS/ML *VIAL IVPUSH ONE (02:54)
[2018-06-17] MEDS ORDERED: SODIUM POLYSTYRENE SULFONATE 15 GM/60 ML BOTTLE PO ONE (02:54)
[2018-06-17] MEDS ORDERED: CALCIUM GLUCONATE 10% - 1,000 MG/10 ML VIAL IVPUSH ONE (02:54)
[2018-06-17] MEDS ORDERED: MINOCYCLINE HCL IVPB ONE (03:00)
[2018-06-17] MEDS ORDERED: WATER IVPB ONE ×2 (03:00→18:00)
[2018-06-17] MEDS ORDERED: DEXTROSE 5% IVPB ONE ×2 (03:00→18:00)
[2018-06-17] MEDS: dilTIAZem HCL 30 MG TABLET (FP) PO SCH ×4 (03:19→17:40)
[2018-06-17] MEDS ORDERED: NOREPINEPHRINE BITARTRATE 4 MG/4 ML ML IV ONE ×2 (03:39→20:45)
[2018-06-17] MEDS ORDERED: fentaNYL CITRATE 250 MCG/5 ML VIAL ONE ×2 (03:39→20:44)
[2018-06-17] MEDS: methylPREDNISolone NA SUCC 40 MG/1 ML VIAL IVPUSH SCH ×4 (04:00→22:26)
[2018-06-17] MEDS: FENTANYL INJECTION 500 MCG in DEXTROSE 5%-WATER - 90 ML IVPB SCH (04:30)
[2018-06-17] MEDS: PROPOFOL 1,000,000 MCG/100 ML VIAL IVPB SCH ×2 (04:30→14:25)
[2018-06-17] MEDS: NOREPINEPHRINE BITARTRATE 8,000 MCG in DEXTROSE 5%-WATER - 492 ML IV SCH ×4 (05:17→17:44)
[2018-06-17 06:40] LABS: BASO % 0.1 % (0-2.0); HEMATOCRIT 26.6 % (32.4-45.2); LYMPH % 3.4 % (8-40); MCH 21.6 pg (25.7-33.7); MCHC 30.2 g/dl (32.0-36.0); MEAN CELL VOLUME 71.5 fl (80-96); MEAN PLT VOLUME 9.7 fl (7.5-11.1); MONO % 0.9 % (3.8-10.2); NEUT % 95.6 % (42.8-82.8); RBC 3.72 M/mm3 (3.60-5.2); RDW 16.4 % (11.6-15.6); WHITE BLOOD COUNT 12.2 K/mm3 (4.0-10.0)
[2018-06-17 06:42] LABS: ADD RBC MORPHOLOGY YES
[2018-06-17 06:50] LABS: INR 1.19 (0.83-1.09); PROTHROMBIN TIME (PATIENT) 13.5 SEC (9.7-13.0)
[2018-06-17 06:51] LABS: PLATELET COUNT 31 K/MM3 (134-434)
[2018-06-17 07:50] LABS: ALBUMIN 1.1 g/dl (3.4-5.0); ALK PHOS 57 U/L (45-117); ANION GAP 10 MMOL/L (8-16); BILIRUBIN,TOTAL 0.3 mg/dL (0.2-1); CALCIUM 7.4 mg/dL (8.5-10.1); CHLORIDE 98 mmol/L (98-107); CO2 24 mmol/L (21-32); CREATININE 3.8 mg/dL (0.55-1.3); GLUCOSE,RANDOM 159 mg/dL (74-106); PHOSPHOROUS 8.6 mg/dL (2.5-4.9); POTASSIUM 5.5 mmol/L (3.5-5.1); SGOT/AST 19 U/L (15-37); SGPT/ALT 23 U/L (13-61); SODIUM 132 mmol/L (136-145); TOT PROT 3.6 g/dl (6.4-8.2)
[2018-06-17 08:05] LABS: BLOOD UREA NITROGEN 132 mg/dL (7-18)
--- NOTE | 2018-06-17 10:18 | PN ---
Progress Note (short form) - Note Progress Note: events noted increasing pressors same vent settings fi02 is 40% sedated Vital Signs Period Temp Pulse Resp BP Sys/Echevarria Pulse Ox Last 24 Hr 97.5 F-98.9 F 75-102 20-24 93-126/45-65 96-100 cor-rrr lungs decreased bs at bases abd soft,nt +ecchymoses ext +edema of the hands CBC, BMP 06/17/18 05:30 06/17/18 05:30 Microbiology 06/15/18 09:30 Blood - Peripheral Venous Blood Culture - Preliminary NO GROWTH OBTAINED AFTER 48 HOURS, INCUBATION TO CONTINUE FOR 3 DAYS. 06/15/18 09:32 Blood - Peripheral Venous Blood Culture - Preliminary NO GROWTH OBTAINED AFTER 48 HOURS, INCUBATION TO CONTINUE FOR 3 DAYS. 06/15/18 04:00 Sputum - Endotrachea Suction/Ventilator Gram Stain - Final 06/15/18 04:00 Sputum - Endotrachea Suction/Ventilator Sputum Culture - Preliminary Non Lactose Fermenting Gnb 06/11/18 17:49 Sputum - Expectorated Gram Stain - Final 06/11/18 17:49 Sputum - Expectorated Sputum Culture - Preliminary Acinetobacter Baumannii/Haemol 06/10/18 18:00 Blood - Peripheral Venous Blood Culture - Final NO GROWTH AFTER 5 DAYS INCUBATION 06/10/18 17:00 Blood - Peripheral Venous Blood Culture - Final NO GROWTH AFTER 5 DAYS INCUBATION 06/12/18 15:00 Stool Clostridium difficile Antigen (BENITO) - Final 06/12/18 15:00 Stool Clostridium difficile Toxin Assay - Final 05/27/18 17:42 Blood - Peripheral Venous Blood Culture - Final NO GROWTH AFTER 5 DAYS INCUBATION 05/27/18 17:42 Blood - Peripheral Venous Blood Culture - Final NO GROWTH AFTER 5 DAYS INCUBATION cxray- large left lung consolidaiton a/p hypoxemic respiratory failure sepsis- increasing pressor requrements HAP with multidrug resistant acinetobacter thrombocytopenia giovanna worsening bronchiectasis with poor lung function at baseline now on polymyxin/minocycline/zithromax will discuss polymyxin dosing with renal-redose today ?bedside sono to evaluate for effusion strict contact isolation overall 45 minutes spent in the care of this critically ill ICU patient d/w ICU resident overall prognosis is poor given underlying lung function Problem List - Problems (1) Sepsis Code(s): A41.9 - SEPSIS, UNSPECIFIED ORGANISM (2) Acute on chronic respiratory failure with hypoxia and hypercapnia Code(s): J96.21 - ACUTE AND CHRONIC RESPIRATORY FAILURE WITH HYPOXIA; J96.22 - ACUTE AND CHRONIC RESPIRATORY FAILURE WITH HYPERCAPNIA (3) Hospital acquired PNA Code(s): J18.9 - PNEUMONIA, UNSPECIFIED ORGANISM
[2018-06-17] MEDS: ROFLUMILAST 500 MCG TABLET PO SCH (10:23)
[2018-06-17] MEDS: AZITHROMYCIN IVPB 500 MG in DEXTROSE 5%-WATER - 250 ML IVPB SCH (10:28)
[2018-06-17] MEDS: FERROUS SO4 300 MG/5 ML ORAL SOLN UNIT DOSE CUPS GT SCH (10:28)
[2018-06-17] MEDS: RANITIDINE HCL 150 MG/10 ML UNIT-DOSE GT SCH ×2 (10:28→22:26)
[2018-06-17] MEDS: FOLIC ACID 1 MG TABLET (FP) PO SCH (10:29)
--- NOTE | 2018-06-17 10:41 | PN ---
Progress Note (short form) - Note Progress Note: Patient seen and examined Remains intubated, sedated, on pressors Last Vital Signs Temp Pulse Resp BP Pulse Ox 97.8 F 89 22 H 93/45 L 97 06/17/18 06:00 06/17/18 06:00 06/17/18 06:47 06/17/18 06:00 06/17/18 05:26 HEENT: Reactive pupils Oropharynx: intubated Cor: RSR, No murmurs, No gallops Lungs:diminished breath sounds bilaterally Abd: Soft, diminished bowel sounds No organomegaly, ecchymoses abdominal wall Ext:No significant edema Skin: No rashes, Integument intact CBC, BMP 06/17/18 05:30 06/17/18 05:30 INR, PTT INR 1.19 (0.83-1.09) H 06/17/18 05:30 Fibrinogen 899.0 mg/dL (238-498) H 06/15/18 12:10 Microbiology 06/15/18 09:30 Blood - Peripheral Venous Blood Culture - Preliminary NO GROWTH OBTAINED AFTER 48 HOURS, INCUBATION TO CONTINUE FOR 3 DAYS. 06/15/18 09:32 Blood - Peripheral Venous Blood Culture - Preliminary NO GROWTH OBTAINED AFTER 48 HOURS, INCUBATION TO CONTINUE FOR 3 DAYS. 06/15/18 04:00 Sputum - Endotrachea Suction/Ventilator Gram Stain - Final 06/15/18 04:00 Sputum - Endotrachea Suction/Ventilator Sputum Culture - Preliminary Non Lactose Fermenting Gnb 06/11/18 17:49 Sputum - Expectorated Gram Stain - Final 06/11/18 17:49 Sputum - Expectorated Sputum Culture - Preliminary Acinetobacter Baumannii/Haemol 06/10/18 18:00 Blood - Peripheral Venous Blood Culture - Final NO GROWTH AFTER 5 DAYS INCUBATION 06/10/18 17:00 Blood - Peripheral Venous Blood Culture - Final NO GROWTH AFTER 5 DAYS INCUBATION 06/12/18 15:00 Stool Clostridium difficile Antigen (BENITO) - Final 06/12/18 15:00 Stool Clostridium difficile Toxin Assay - Final 05/27/18 17:42 Blood - Peripheral Venous Blood Culture - Final NO GROWTH AFTER 5 DAYS INCUBATION 05/27/18 17:42 Blood - Peripheral Venous Blood Culture - Final NO GROWTH AFTER 5 DAYS INCUBATION Current Medications Generic Name Dose Route Start Last Admin Trade Name Freq PRN Reason Stop Dose Admin Acetaminophen 650 mg 06/12/18 17:35 06/13/18 01:30 Tylenol - PO 650 mg Q6H PRN Administration PAIN LEVEL 6-10 Albuterol Sulfate 1 amp 06/15/18 14:56 06/16/18 11:51 Ventolin 0.083% Nebulizer Soln - NEB 1 amp Q1H PRN Administration SHORT OF BREATH/WHEEZING Albuterol/Ipratropium 1 amp 06/16/18 14:00 06/17/18 05:53 Duoneb - NEB 1 amp Q4HPO ZACHARY Administration Chlorhexidine Gluconate 1 applic 06/12/18 22:00 06/16/18 21:04 Hibiclens For Decolonization - TP 1 applic HS ZACHARY Administration Diltiazem HCl 30 mg 06/12/18 18:00 06/17/18 05:19 Cardizem - PO Not Given Q6HPO ZACHARY Diltiazem HCl 10 mg 06/14/18 13:33 06/14/18 15:34 Cardizem Injection - IVPUSH 10 mg Q4H PRN Administration TACHYCARDIA Ergocalciferol 50,000 unit 06/15/18 10:00 06/15/18 10:59 Drisdol - PO Not Given Q7D@1000 ZACHARY Ferrous Sulfate 300 mg 06/16/18 10:00 06/17/18 10:28 Feosol GT 300 mg DAILY ZACHARY Administration Folic Acid 1 mg 06/13/18 10:00 06/17/18 10:29 Folic Acid - PO 1 mg DAILY ZACHARY Administration Propofol 1,000,000 mcg in 100 mls @ 1.935 mls/hr 06/15/18 01:45 06/17/18 04: 30 Diprivan - IVPB 15 mcg/kg/min TITR ZACHARY 5.805 mls/hr Administration Protocol 5 MCG/KG/MIN Fentanyl 500 mcg/ Dextrose 100 mls @ 10 mls/hr 06/15/18 01:45 06/17/18 04:30 IVPB 75 mcg/hr TITR ZACHARY 15 mls/hr Administration Protocol 50 MCG/HR Azithromycin 500 mg/ Dextrose 250 mls @ 250 mls/hr 06/15/18 14:30 06/17/18 10 :28 IVPB 250 mls/hr DAILY ZACHARY Administration Polymyxin B Sulfate 950,000 500 mls @ 250 mls/hr 06/16/18 10:00 06/17/18 10: 16 unit/ Dextrose IVPB Not Given DAILY ZACHARY Norepinephrine Bitartrate 8, 500 mls @ 18.75 mls/hr 06/15/18 21:45 06/17/18 07:00 000 mcg/ Dextrose IV 8 mcg/min TITR ZACHARY 30 mls/hr Titration Protocol 5 MCG/MIN Sodium Chloride 1,000 mls @ 75 mls/hr 06/16/18 12:15 06/16/18 12:20 Normal Saline - IV 75 mls/hr ASDIR ZACHARY Administration Minocycline HCl 100 mg/ 100 mls @ 100 mls/hr 06/17/18 15:00 Dextrose IVPB Q12H ZACHARY Methylprednisolone Sodium Succinate 40 mg 06/14/18 15:00 06/17/18 10:28 Solu-Medrol - IVPUSH 40 mg Q6H-IV ZACHARY Administration Montelukast Sodium 10 mg 06/12/18 22:00 06/16/18 21:04 Singulair - PO 10 mg HS ZACHARY Administration Polyethylene Glycol 17 gm 06/12/18 17:35 Miralax (For Daily Use) - PO DAILY PRN CONSTIPATION Ranitidine HCl 150 mg 06/16/18 11:30 06/17/18 10:28 Zantac Oral Solution - GT 150 mg BID ZACHARY Administration Roflumilast 500 mcg 06/13/18 10:00 06/17/18 10:23 Daliresp - PO Not Given DAILY ZACHARY Impression: Acute hypoxic respiratory failure Ventilator support Pressor support ARDS Multifactorial anemia Thrombocytopenia RAOUL-oliguria bronchiectasis acinetobacter infection Plan: From heme point of view anemia- multifactorial- chronic disease, RAOUL, sepsis , etc-to monitor Thrombocytopenia - likely sepsis- no active bleeding - transfuse prn bleeding or platelets < 20K Coags- relatively acceptable - continue monitoring.
--- NOTE | 2018-06-17 11:29 | PN ---
Teaching Attending Note Name of Resident: Long Petersen ATTENDING PHYSICIAN STATEMENT I saw and evaluated the patient. I reviewed the resident's note and discussed the case with the resident. I agree with the resident's findings and plan as documented. SUBJECTIVE: Patient seen and examined in the ICU. Remains intubated and sedated on Propofol and Fentanyl. NE @ 10 mcq for hemodynamic support, BP remains somewhat marginal. Pplat: 29 CXR: No gross change. ETT in position dense consolidation Left / infiltrates on the right. Intake & Output 06/14/18 06/15/18 06/16/18 06/17/18 23:59 23:59 23:59 23:59 Intake Total 1740 3183.5 4278 2280 Output Total 804 343 9225 Balance 1740 2983.5 3818 1080 Weight 142 lb 3.2 oz 139 lb 9.6 oz 153 lb 1.6 oz 161 lb 3.2 oz Last Vital Signs Temp Pulse Resp BP Pulse Ox 97.8 F 80 22 H 93/45 L 99 06/17/18 06:00 06/17/18 10:46 06/17/18 10:50 06/17/18 06:00 06/17/18 10:46 Active Medications Acetaminophen (Tylenol -) 650 mg PO Q6H PRN PRN Reason: PAIN LEVEL 6-10 Last Admin: 06/13/18 01:30 Dose: 650 mg Albuterol Sulfate (Ventolin 0.083% Nebulizer Soln -) 1 amp NEB Q1H PRN PRN Reason: SHORT OF BREATH/WHEEZING Last Admin: 06/16/18 11:51 Dose: 1 amp Albuterol/Ipratropium (Duoneb -) 1 amp NEB Q4HPO ZACHARY Last Admin: 06/17/18 10:38 Dose: 1 amp Chlorhexidine Gluconate (Hibiclens For Decolonization -) 1 applic TP HS ZACHARY Last Admin: 06/16/18 21:04 Dose: 1 applic Diltiazem HCl (Cardizem -) 30 mg PO Q6HPO ZACHARY Last Admin: 06/17/18 05:19 Dose: Not Given Diltiazem HCl (Cardizem Injection -) 10 mg IVPUSH Q4H PRN PRN Reason: TACHYCARDIA Last Admin: 06/14/18 15:34 Dose: 10 mg Ergocalciferol (Drisdol -) 50,000 unit PO Q7D@1000 [facility] Last Admin: 06/15/18 10:59 Dose: Not Given Ferrous Sulfate (Feosol) 300 mg GT DAILY ZACHARY Last Admin: 06/17/18 10:28 Dose: 300 mg Folic Acid (Folic Acid -) 1 mg PO DAILY ZACHARY Last Admin: 06/17/18 10:29 Dose: 1 mg Propofol (Diprivan -) 1,000,000 mcg in 100 mls @ 1.935 mls/hr IVPB TITR ZACHARY; Protocol Last Admin: 06/17/18 04:30 Dose: 15 mcg/kg/min, 5.805 mls/hr Fentanyl 500 mcg/ Dextrose 100 mls @ 10 mls/hr IVPB TITR [facility]; Protocol Last Admin: 06/17/18 04:30 Dose: 75 mcg/hr, 15 mls/hr Azithromycin 500 mg/ Dextrose 250 mls @ 250 mls/hr IVPB DAILY ZACHARY Last Admin: 06/17/18 10:28 Dose: 250 mls/hr Polymyxin B Sulfate 950,000 (unit/ Dextrose) 500 mls @ 250 mls/hr IVPB DAILY ZACHARY Last Admin: 06/17/18 10:16 Dose: Not Given Sodium Chloride (Normal Saline -) 1,000 mls @ 75 mls/hr IV ASDIR [facility] Last Admin: 06/16/18 12:20 Dose: 75 mls/hr Minocycline HCl 100 mg/ (Dextrose) 100 mls @ 100 mls/hr IVPB Q12H ZACHARY Norepinephrine Bitartrate 8, (000 mcg/ Dextrose) 500 mls @ 37.5 mls/hr IV TITR ZACHARY; Protocol Vasopressin 50 units/ Sodium (Chloride) 100 mls @ 24 mls/hr IVPB TITR [facility]; Protocol Methylprednisolone Sodium Succinate (Solu-Medrol -) 80 mg IVPUSH Q6H-IV [facility]ARY Montelukast Sodium (Singulair -) 10 mg PO HS [facility] Last Admin: 06/16/18 21:04 Dose: 10 mg Polyethylene Glycol (Miralax (For Daily Use) -) 17 gm PO DAILY PRN PRN Reason: CONSTIPATION Ranitidine HCl (Zantac Oral Solution -) 150 mg GT BID [facility] Last Admin: 06/17/18 10:28 Dose: 150 mg Roflumilast (Daliresp -) 500 mcg PO DAILY [facility] Last Admin: 06/17/18 10:23 Dose: Not Given Constitutional: Yes: Intubated and sedated Eyes: Yes: (-) Pallor HENT: Yes: WNL Neck: Yes: WNL Cardiovascular: Yes: Regular Rate and Rhythm, S1, S2 Respiratory: Yes: LLL crackles, (+) Increased expiratory wheezing mostly on the right Gastrointestinal: Yes: Normal Bowel Sounds, Soft Extremities: Yes: WNL Edema: No Labs: Laboratory Results - last 24 hr 06/16/18 06/16/18 06/16/18 05:30 12:00 12:00 WBC RBC Hgb Hct MCV MCH MCHC RDW Plt Count MPV Absolute Neuts (auto) Neutrophils % Lymphocytes % Monocytes % Eosinophils % Basophils % Nucleated RBC % PT with INR INR Sodium Potassium Chloride Carbon Dioxide Anion Gap BUN Creatinine Creat Clearance w eGFR Random Glucose Calcium Phosphorus Magnesium Total Bilirubin 0.4 AST 16 ALT 24 Alkaline Phosphatase 47 Total Protein 3.7 L Albumin 1.3 L Urine Color Yellow Urine Appearance Cloudy Urine pH 5.0 Ur Specific [place] 1.015 Urine Protein 1+ H Urine Glucose (UA) 1+ H Urine Ketones Negative Urine Blood 3+ H Urine Nitrite Negative Urine Bilirubin Negative Urine Urobilinogen Negative Ur Leukocyte Esterase Trace Urine WBC (Auto) 21 Urine RBC (Auto) 124 Ur Epithelial Cells Rare Urine Bacteria Many U Random Total Protein 133 H Ur Random Sodium 20 L Ur Random Potassium 46.0 Ur Random Chloride 17 L Urine Creatinine 72.0 H 06/16/18 06/16/18 06/16/18 12:00 12:00 16:00 WBC RBC Hgb Hct MCV MCH MCHC RDW Plt Count MPV Absolute Neuts (auto) Neutrophils % Lymphocytes % Monocytes % Eosinophils % Basophils % Nucleated RBC % PT with INR INR Sodium 137 Potassium 5.5 H Chloride 98 Carbon Dioxide 24 Anion Gap 15 BUN 115 H* Creatinine 3.2 H Creat Clearance w eGFR 14.83 Random Glucose 134 H Calcium 7.3 L Phosphorus Magnesium Total Bilirubin AST ALT Alkaline Phosphatase Total Protein Albumin Urine Color Urine Appearance Urine pH Ur Specific [place] Urine Protein Cancelled Urine Glucose (UA) Urine Ketones Urine Blood Urine Nitrite Urine Bilirubin Urine Urobilinogen Ur Leukocyte Esterase Urine WBC (Auto) Urine RBC (Auto) Ur Epithelial Cells Urine Bacteria U Random Total Protein Ur Random Sodium Ur Random Potassium Ur Random Chloride Urine Creatinine Cancelled 06/17/18 06/17/18 06/17/18 00:30 05:30 05:30 WBC 12.2 H RBC 3.72 Hgb 8.0 L Hct 26.6 L MCV 71.5 L MCH 21.6 L MCHC 30.2 L RDW 16.4 H Plt Count 31 L* D MPV 9.7 Absolute Neuts (auto) 11.7 H Neutrophils % 95.6 H Lymphocytes % 3.4 L D Monocytes % 0.9 L Eosinophils % 0.0 D Basophils % 0.1 Nucleated RBC % 0 PT with INR 13.50 H INR 1.19 H Sodium 132 L Potassium 5.7 H Chloride 98 Carbon Dioxide 25 Anion Gap 10 BUN 127 H* Creatinine 3.6 H Creat Clearance w eGFR 12.94 Random Glucose 129 H Calcium 7.3 L Phosphorus Magnesium Total Bilirubin AST ALT Alkaline Phosphatase Total Protein Albumin Urine Color Urine Appearance Urine pH Ur Specific [place] Urine Protein Urine Glucose (UA) Urine Ketones Urine Blood Urine Nitrite Urine Bilirubin Urine Urobilinogen Ur Leukocyte Esterase Urine WBC (Auto) Urine RBC (Auto) Ur Epithelial Cells Urine Bacteria U Random Total Protein Ur Random Sodium Ur Random Potassium Ur Random Chloride Urine Creatinine 06/17/18 05:30 WBC RBC Hgb Hct MCV MCH MCHC RDW Plt Count MPV Absolute Neuts (auto) Neutrophils % Lymphocytes % Monocytes % Eosinophils % Basophils % Nucleated RBC % PT with INR INR Sodium 132 L Potassium 5.5 H Chloride 98 Carbon Dioxide 24 Anion Gap 10 BUN 132 H* Creatinine 3.8 H Creat Clearance w eGFR 12.16 Random Glucose 159 H Calcium 7.4 L Phosphorus 8.6 H Magnesium 2.0 Total Bilirubin 0.3 AST 19 ALT 23 Alkaline Phosphatase 57 Total Protein 3.6 L Albumin 1.1 L Urine Color Urine Appearance Urine pH Ur Specific [place] Urine Protein Urine Glucose (UA) Urine Ketones Urine Blood Urine Nitrite Urine Bilirubin Urine Urobilinogen Ur Leukocyte Esterase Urine WBC (Auto) Urine RBC (Auto) Ur Epithelial Cells Urine Bacteria U Random Total Protein Ur Random Sodium Ur Random Potassium Ur Random Chloride Urine Creatinine Problem List - Problems (1) COPD exacerbation Code(s): J44.1 - CHRONIC OBSTRUCTIVE PULMONARY DISEASE W (ACUTE) EXACERBATION (2) Shortness of breath Code(s): R06.02 - SHORTNESS OF BREATH (3) Bronchiectasis Code(s): J47.9 - BRONCHIECTASIS, UNCOMPLICATED (4) Chronic respiratory failure with hypoxia Code(s): J96.11 - CHRONIC RESPIRATORY FAILURE WITH HYPOXIA (5) Emphysema lung Code(s): J43.9 - EMPHYSEMA, UNSPECIFIED (6) Supplemental oxygen dependent Code(s): Z99.81 - DEPENDENCE ON SUPPLEMENTAL OXYGEN Assessment/Plan Acute Respiratory Failure Acute COPD Exacerbation Acute on Chronic Hypoxic/Hypercapneic Respiratory Failure HAP HTN RAOUL ANEMIA + TROPONIN - Increase IV medrol - Check ABG and will make decisions about vent changes after - ABX as per ID - inhaled bronchodilators standing and PRN - O2 to keep SpO2 90% - Enteral feeds - DVT prophylaxis - Follow chest x-rays - Normal transfusion threshold - Pressors to maintain MAP > 65 - Will need continued ICU monitoring Dr Carty Critical care time spent in reviewing chart, evaluating patient and formulating plan - 36 minutes.
[2018-06-17] MEDS ORDERED: VASOPRESSIN 50 UNITS in SODIUM CHLORIDE 97.5 ML IVPB SCH (11:30)
[2018-06-17] MEDS: SODIUM CHLORIDE 1,000 ML IV SCH ×2 (12:17→14:25)
[2018-06-17 12:19] LABS: ANISOCYTOSIS 0; MACROCYTOSIS 0; PLATELET ESTIMATE DECREASED
[2018-06-17 12:29] LABS: ARTERIAL BLD GAS O2 SATURATION 99.3 % (90-98.9); ARTERIAL BLOOD GAS BASE EXCESS -5.8 meq/l (-2-2); ARTERIAL BLOOD GAS PCO2 46.5 mmHg (35-45); ARTERIAL BLOOD GAS pH 7.26 (7.35-7.45)
[2018-06-17 12:32] LABS: ALLENS TEST POSITIVE
--- NOTE | 2018-06-17 13:40 | PN ---
Physical Exam: SUBJECTIVE: Patient seen and examined at bedside, intubated and sedated. OBJECTIVE: Vital Signs Period Temp Pulse Resp BP Sys/Echevarria Pulse Ox Last 24 Hr 97.1 F-98.9 F 75-102 20-24 85-127/44-65 96-100 GENERAL: Intubated and sedated on propofol LUNGS: Decreased breath sounds and crackles b/l, mechanically ventilated HEART: Tachycardic ABDOMEN: Soft, mildly distended LOWER EXTREMITIES: warm, well-perfused. No peripheral edema. NEUROLOGICAL: unable to assess SKIN: Warm, dry Laboratory Results - last 24 hr 06/16/18 06/16/18 06/17/18 12:00 16:00 00:30 WBC RBC Hgb Hct MCV MCH MCHC RDW Plt Count MPV Absolute Neuts (auto) Neutrophils % Neutrophils % (Manual) Band Neutrophils % Lymphocytes % Lymphocytes % (Manual) Monocytes % Monocytes % (Manual) Eosinophils % Eosinophils % (Manual) Basophils % Basophils % (Manual) Myelocytes % (Man) Promyelocytes % (Man) Blast Cells % (Manual) Nucleated RBC % Metamyelocytes Hypochromia Platelet Estimate Polychromasia Poikilocytosis Anisocytosis Microcytosis Macrocytosis Haddock Cells PT with INR INR Puncture Site ABG pH ABG pCO2 at Pt Temp ABG pO2 at Pt Temp ABG HCO3 ABG O2 Sat (Measured) ABG O2 Content ABG Base Excess Timmy Test O2 Delivery Device Oxygen Flow Rate Vent Rate Mechanical Rate PEEP Pressure Support Vent Sodium 137 132 L Potassium 5.5 H 5.7 H Chloride 98 98 Carbon Dioxide 24 25 Anion Gap 15 10 BUN 115 H* 127 H* Creatinine 3.2 H 3.6 H Creat Clearance w eGFR 14.83 12.94 Random Glucose 134 H 129 H Calcium 7.3 L 7.3 L Phosphorus Magnesium Total Bilirubin AST ALT Alkaline Phosphatase Total Protein Albumin U Random Total Protein 133 H Ur Random Sodium 20 L Ur Random Potassium 46.0 Ur Random Chloride 17 L Urine Creatinine 72.0 H 06/17/18 06/17/18 06/17/18 05:30 05:30 05:30 WBC 12.2 H RBC 3.72 Hgb 8.0 L Hct 26.6 L MCV 71.5 L MCH 21.6 L MCHC 30.2 L RDW 16.4 H Plt Count 31 L* D MPV 9.7 Absolute Neuts (auto) 11.7 H Neutrophils % 95.6 H Neutrophils % (Manual) 93.0 H Band Neutrophils % 5.0 Lymphocytes % 3.4 L D Lymphocytes % (Manual) 2.0 L D Monocytes % 0.9 L Monocytes % (Manual) 0 L D Eosinophils % 0.0 D Eosinophils % (Manual) 0.0 Basophils % 0.1 Basophils % (Manual) 0.0 Myelocytes % (Man) 0 Promyelocytes % (Man) 0 Blast Cells % (Manual) 0 Nucleated RBC % 0 Metamyelocytes 0 Hypochromia 1+ Platelet Estimate Decreased Polychromasia 1+ Poikilocytosis 1+ Anisocytosis 0 Microcytosis 1+ Macrocytosis 0 Lopez Cells 1+ PT with INR 13.50 H INR 1.19 H Puncture Site ABG pH ABG pCO2 at Pt Temp ABG pO2 at Pt Temp ABG HCO3 ABG O2 Sat (Measured) ABG O2 Content ABG Base Excess Timmy Test O2 Delivery Device Oxygen Flow Rate Vent Rate Mechanical Rate PEEP Pressure Support Vent Sodium 132 L Potassium 5.5 H Chloride 98 Carbon Dioxide 24 Anion Gap 10 BUN 132 H* Creatinine 3.8 H Creat Clearance w eGFR 12.16 Random Glucose 159 H Calcium 7.4 L Phosphorus 8.6 H Magnesium 2.0 Total Bilirubin 0.3 AST 19 ALT 23 Alkaline Phosphatase 57 Total Protein 3.6 L Albumin 1.1 L U Random Total Protein Ur Random Sodium Ur Random Potassium Ur Random Chloride Urine Creatinine 06/17/18 12:10 WBC RBC Hgb Hct MCV MCH MCHC RDW Plt Count MPV Absolute Neuts (auto) Neutrophils % Neutrophils % (Manual) Band Neutrophils % Lymphocytes % Lymphocytes % (Manual) Monocytes % Monocytes % (Manual) Eosinophils % Eosinophils % (Manual) Basophils % Basophils % (Manual) Myelocytes % (Man) Promyelocytes % (Man) Blast Cells % (Manual) Nucleated RBC % Metamyelocytes Hypochromia Platelet Estimate Polychromasia Poikilocytosis Anisocytosis Microcytosis Macrocytosis Haddock Cells PT with INR INR Puncture Site Right radial ABG pH 7.26 L ABG pCO2 at Pt Temp 46.5 H ABG pO2 at Pt Temp 137.0 H D ABG HCO3 20.3 L ABG O2 Sat (Measured) 99.3 H ABG O2 Content 10.9 L ABG Base Excess -5.8 L Timmy Test Positive O2 Delivery Device Vent Oxygen Flow Rate 40% Vent Rate 22 Mechanical Rate Yes PEEP 8.0 Pressure Support Vent 300 Sodium Potassium Chloride Carbon Dioxide Anion Gap BUN Creatinine Creat Clearance w eGFR Random Glucose Calcium Phosphorus Magnesium Total Bilirubin AST ALT Alkaline Phosphatase Total Protein Albumin U Random Total Protein Ur Random Sodium Ur Random Potassium Ur Random Chloride Urine Creatinine Active Medications Generic Name Dose Route Start Last Admin Trade Name Freq PRN Reason Stop Dose Admin Acetaminophen 650 mg 06/12/18 17:35 06/13/18 01:30 Tylenol - PO 650 mg Q6H PRN Administration PAIN LEVEL 6-10 Albuterol Sulfate 1 amp 06/15/18 14:56 06/16/18 11:51 Ventolin 0.083% Nebulizer Soln - NEB 1 amp Q1H PRN Administration SHORT OF BREATH/WHEEZING Albuterol/Ipratropium 1 amp 06/16/18 14:00 06/17/18 10:38 Duoneb - NEB 1 amp Q4HPO ZACHARY Administration Chlorhexidine Gluconate 1 applic 06/12/18 22:00 06/16/18 21:04 Hibiclens For Decolonization - TP 1 applic HS ZACHARY Administration Diltiazem HCl 30 mg 06/12/18 18:00 06/17/18 12:16 Cardizem - PO Not Given Q6HPO ZACHARY Diltiazem HCl 10 mg 06/14/18 13:33 06/14/18 15:34 Cardizem Injection - IVPUSH 10 mg Q4H PRN Administration TACHYCARDIA Ergocalciferol 50,000 unit 06/15/18 10:00 06/15/18 10:59 Drisdol - PO Not Given Q7D@1000 ZACHARY Ferrous Sulfate 300 mg 06/16/18 10:00 06/17/18 10:28 Feosol GT 300 mg DAILY ZACHARY Administration Folic Acid 1 mg 06/13/18 10:00 06/17/18 10:29 Folic Acid - PO 1 mg DAILY ZACHARY Administration Propofol 1,000,000 mcg in 100 mls @ 1.935 mls/hr 06/15/18 01:45 06/17/18 04: 30 Diprivan - IVPB 15 mcg/kg/min TITR ZACHARY 5.805 mls/hr Administration Protocol 5 MCG/KG/MIN Fentanyl 500 mcg/ Dextrose 100 mls @ 10 mls/hr 06/15/18 01:45 06/17/18 04:30 IVPB 75 mcg/hr TITR ZACHARY 15 mls/hr Administration Protocol 50 MCG/HR Azithromycin 500 mg/ Dextrose 250 mls @ 250 mls/hr 06/15/18 14:30 06/17/18 10 :28 IVPB 250 mls/hr DAILY ZACHARY Administration Polymyxin B Sulfate 950,000 500 mls @ 250 mls/hr 06/16/18 10:00 06/17/18 10: 16 unit/ Dextrose IVPB Not Given DAILY ZACHARY Sodium Chloride 1,000 mls @ 75 mls/hr 06/16/18 12:15 06/17/18 12:17 Normal Saline - IV Not Given ASDIR [facility] Minocycline HCl 100 mg/ 100 mls @ 100 mls/hr 06/17/18 15:00 Dextrose IVPB Q12H ZACHARY Norepinephrine Bitartrate 8, 500 mls @ 37.5 mls/hr 06/17/18 10:47 06/17/18 12 :27 000 mcg/ Dextrose IV 20 mcg/min TITR ZACHARY 75 mls/hr Titration Protocol 10 MCG/MIN Vasopressin 50 units/ Sodium 100 mls @ 24 mls/hr 06/17/18 11:30 Chloride IVPB TITR ZACHARY Protocol 0.2 UNITS/MIN Methylprednisolone Sodium Succinate 80 mg 06/17/18 10:49 Solu-Medrol - IVPUSH Q6H-IV ZACHARY Montelukast Sodium 10 mg 06/12/18 22:00 06/16/18 21:04 Singulair - PO 10 mg HS ZACHARY Administration Polyethylene Glycol 17 gm 06/12/18 17:35 Miralax (For Daily Use) - PO DAILY PRN CONSTIPATION Ranitidine HCl 150 mg 06/16/18 11:30 06/17/18 10:28 Zantac Oral Solution - GT 150 mg BID ZACHARY Administration Roflumilast 500 mcg 06/13/18 10:00 06/17/18 10:23 Daliresp - PO Not Given DAILY [facility] ASSESSMENT/PLAN: 58 y/o F w/PMHx COPD (on home O2 3L), chronic anemia, HTN initially admitted to [facility] for COPD exacerbation, hospital course complicated by HAP, progressed to ARDS, now intubated in ICU #ARDS and septic shock 2/2 HAP -ventilated: TV 300, Rate 22, Peak flow 80, PEEP 8, FiO2 35 -lungs stable/worsening on CXR -central line placed, levophed to maintain MAP >65 -Vasopressin on board if levophed requires titration >15 -if 2nd pressor added, hydrocortisone 100q8 and fludro 50qD -solumedrol incr to 80 IV q6 -hold solumedrol if add'l steroids added w/ second pressor -duonebs standing q4, daliresp GT -nepro to goal 42 cc/hr, 1L/24 hour target volume -repeat echo pending read -propofol/fentanyl titrated to prevent bucking ventilator -CXR daily -repeat sputum Cx 06/15 +acinetobacter -Per ID, polymyxin/minocycline/zithromax, polymyxin dosing d/w nephro -must be on fluids d/t nephrotoxic agents -IVF: NS 75 #RAOUL/ARF -Cr 1.3-->2.9-->3.8, dialysis may be impending -IVF per nephro reccs: NS 75 -FENa 0.8%, likely pre-renal 2/2 hypotension -monitor closely d/t nephrotoxic agents #hyperkalemia -overnight K 5.7 -given 10U insulin, D50, Ca gluconate, albuterol, kayexelate #thrombocytopenia -Plt this AM @ 31 -likely multifactorial d/t sepsis, ARDS, use of Lovenox (reduced but non-zero risk of HIT), use of Zosyn -INR 1.19, fibrinogen 899, d-dimer 1638; DIC unlikely given elevated fibrinogen per heme -pending SPEP, globulin studies, anti-Plt ABs, broad immunologic panels, TFTs -AC held -repeat CBC this PM, will transfuse platelets if <20k -will monitor closely #Anemia -Hb stable -folate and iron GT -monitor CBC, transfusion threshhold 7 #FEN - NS @ 75 - BMP in AM - nepro GT #PPx - DVT: SCDs - GI: Zantac GT #Dispo - ICU Visit type - Emergency Visit Emergency Visit: No - New Patient This patient is new to me today: No - Critical Care Critical Care patient: Yes Total Critical Care Time (in minutes): 40 Critical Care Statement: The care of this patient involved high complexity decision making to prevent further life threatening deterioration of the patient 's condition and/or to evaluate & treat vital organ system(s) failure or risk of failure.
[2018-06-17] MEDS ORDERED: PT OWN MED DRAWER 7, Y5N ONE ×2 (14:13→15:17)
[2018-06-17] MEDS: DEXTROSE 5% IVPB SCH (15:19)
[2018-06-17] MEDS: WATER IVPB SCH (15:19)
[2018-06-17] MEDS: MINOCYCLINE HCL IVPB SCH (15:19)
--- NOTE | 2018-06-17 15:21 | PN ---
Progress Note, Physician History of Present Illness: Pt seen and examined at bedside. SHe remains in the ICU. Her BP has been low and her pressor requirements are increased. She remains oliguric. Pt remains intubated. - Current Medication List Current Medications: Active Medications Acetaminophen (Tylenol -) 650 mg PO Q6H PRN PRN Reason: PAIN LEVEL 6-10 Last Admin: 06/13/18 01:30 Dose: 650 mg Albuterol Sulfate (Ventolin 0.083% Nebulizer Soln -) 1 amp NEB Q1H PRN PRN Reason: SHORT OF BREATH/WHEEZING Last Admin: 06/16/18 11:51 Dose: 1 amp Albuterol/Ipratropium (Duoneb -) 1 amp NEB Q4HPO ZACHARY Last Admin: 06/17/18 14:20 Dose: 1 amp Chlorhexidine Gluconate (Hibiclens For Decolonization -) 1 applic TP HS [facility] Last Admin: 06/16/18 21:04 Dose: 1 applic Diltiazem HCl (Cardizem -) 30 mg PO Q6HPO ZACHARY Last Admin: 06/17/18 12:16 Dose: Not Given Diltiazem HCl (Cardizem Injection -) 10 mg IVPUSH Q4H PRN PRN Reason: TACHYCARDIA Last Admin: 06/14/18 15:34 Dose: 10 mg Ergocalciferol (Drisdol -) 50,000 unit PO Q7D@1000 [facility] Last Admin: 06/15/18 10:59 Dose: Not Given Ferrous Sulfate (Feosol) 300 mg GT DAILY [facility] Last Admin: 06/17/18 10:28 Dose: 300 mg Folic Acid (Folic Acid -) 1 mg PO DAILY [facility] Last Admin: 06/17/18 10:29 Dose: 1 mg Propofol (Diprivan -) 1,000,000 mcg in 100 mls @ 1.935 mls/hr IVPB TITR ZACHARY; Protocol Last Admin: 06/17/18 14:25 Dose: 15 mcg/kg/min, 5.805 mls/hr Fentanyl 500 mcg/ Dextrose 100 mls @ 10 mls/hr IVPB TITR [facility]; Protocol Last Admin: 06/17/18 04:30 Dose: 75 mcg/hr, 15 mls/hr Azithromycin 500 mg/ Dextrose 250 mls @ 250 mls/hr IVPB DAILY ZACHARY Last Admin: 06/17/18 10:28 Dose: 250 mls/hr Polymyxin B Sulfate 950,000 (unit/ Dextrose) 500 mls @ 250 mls/hr IVPB DAILY ZACHARY Last Admin: 06/17/18 10:16 Dose: Not Given Sodium Chloride (Normal Saline -) 1,000 mls @ 75 mls/hr IV ASDIR ZACHARY Last Admin: 06/17/18 14:25 Dose: 75 mls/hr Minocycline HCl 100 mg/ (Dextrose) 100 mls @ 100 mls/hr IVPB Q12H ZACHARY Norepinephrine Bitartrate 8, (000 mcg/ Dextrose) 500 mls @ 37.5 mls/hr IV TITR ZACHARY; Protocol Last Admin: 06/17/18 13:00 Dose: 15 mcg/min, 56.25 mls/hr Vasopressin 50 units/ Sodium (Chloride) 100 mls @ 24 mls/hr IVPB TITR ZACHARY; Protocol Methylprednisolone Sodium Succinate (Solu-Medrol -) 80 mg IVPUSH Q6H-IV ZACHARY Last Admin: 06/17/18 14:19 Dose: 80 mg Montelukast Sodium (Singulair -) 10 mg PO HS [facility] Last Admin: 06/16/18 21:04 Dose: 10 mg Polyethylene Glycol (Miralax (For Daily Use) -) 17 gm PO DAILY PRN PRN Reason: CONSTIPATION Ranitidine HCl (Zantac Oral Solution -) 150 mg GT BID [facility] Last Admin: 06/17/18 10:28 Dose: 150 mg Roflumilast (Daliresp -) 500 mcg PO DAILY [facility] Last Admin: 06/17/18 10:23 Dose: Not Given - Objective Vital Signs: Vital Signs Temperature 98 F 06/17/18 13:00 Pulse Rate 88 06/17/18 14:00 Respiratory Rate 22 H 06/17/18 14:00 Blood Pressure 119/61 06/17/18 14:00 O2 Sat by Pulse Oximetry (%) 95 06/17/18 14:04 Constitutional: Yes: Calm Cardiovascular: Yes: S1, S2 Respiratory: Yes: Mechanically Ventilated Gastrointestinal: Yes: Soft Genitourinary: Yes: Ramírez Present, Oliguria Musculoskeletal: Yes: Muscle Weakness Edema: LUE: Trace, RUE: Trace Neurological: Yes: Lethargy Labs: CBC, BMP 06/17/18 05:30 06/17/18 05:30 INR, PTT INR 1.19 (0.83-1.09) H 06/17/18 05:30 Fibrinogen 899.0 mg/dL (238-498) H 06/15/18 12:10 - ....Imaging Chest X-ray: Image Reviewed Problem List - Problems (1) RAOUL (acute kidney injury) Code(s): N17.9 - ACUTE KIDNEY FAILURE, UNSPECIFIED (2) CKD (chronic kidney disease) Code(s): N18.9 - CHRONIC KIDNEY DISEASE, UNSPECIFIED (3) COPD exacerbation Code(s): J44.1 - CHRONIC OBSTRUCTIVE PULMONARY DISEASE W (ACUTE) EXACERBATION (4) Hospital acquired PNA Code(s): J18.9 - PNEUMONIA, UNSPECIFIED ORGANISM (5) Sepsis Code(s): A41.9 - SEPSIS, UNSPECIFIED ORGANISM (6) COPD (chronic obstructive pulmonary disease) with acute bronchitis Code(s): J44.0 - CHRONIC OBSTRUCTIVE PULMON DISEASE W ACUTE LOWER RESP INFCT Assessment/Plan Current Medications Generic Name Dose Route Start Last Admin Trade Name Freq PRN Reason Stop Dose Admin Acetaminophen 650 mg 06/12/18 17:35 06/13/18 01:30 Tylenol - PO 650 mg Q6H PRN Administration PAIN LEVEL 6-10 Albuterol Sulfate 1 amp 06/15/18 14:56 06/16/18 11:51 Ventolin 0.083% Nebulizer Soln - NEB 1 amp Q1H PRN Administration SHORT OF BREATH/WHEEZING Albuterol/Ipratropium 1 amp 06/16/18 14:00 06/17/18 14:20 Duoneb - NEB 1 amp Q4HPO ZACHARY Administration Chlorhexidine Gluconate 1 applic 06/12/18 22:00 06/16/18 21:04 Hibiclens For Decolonization - TP 1 applic HS ZACHARY Administration Diltiazem HCl 30 mg 06/12/18 18:00 06/17/18 12:16 Cardizem - PO Not Given Q6HPO ZACHARY Diltiazem HCl 10 mg 06/14/18 13:33 06/14/18 15:34 Cardizem Injection - IVPUSH 10 mg Q4H PRN Administration TACHYCARDIA Ergocalciferol 50,000 unit 06/15/18 10:00 06/15/18 10:59 Drisdol - PO Not Given Q7D@1000 ZACHARY Ferrous Sulfate 300 mg 06/16/18 10:00 06/17/18 10:28 Feosol GT 300 mg DAILY ZACHARY Administration Folic Acid 1 mg 06/13/18 10:00 06/17/18 10:29 Folic Acid - PO 1 mg DAILY ZACHARY Administration Propofol 1,000,000 mcg in 100 mls @ 1.935 mls/hr 06/15/18 01:45 06/17/18 14: 25 Diprivan - IVPB 15 mcg/kg/min TITR ZACHARY 5.805 mls/hr Administration Protocol 5 MCG/KG/MIN Fentanyl 500 mcg/ Dextrose 100 mls @ 10 mls/hr 06/15/18 01:45 06/17/18 04:30 IVPB 75 mcg/hr TITR ZACHARY 15 mls/hr Administration Protocol 50 MCG/HR Azithromycin 500 mg/ Dextrose 250 mls @ 250 mls/hr 06/15/18 14:30 06/17/18 10 :28 IVPB 250 mls/hr DAILY ZACHARY Administration Polymyxin B Sulfate 950,000 500 mls @ 250 mls/hr 06/16/18 10:00 06/17/18 10: 16 unit/ Dextrose IVPB Not Given DAILY ZACHARY Sodium Chloride 1,000 mls @ 75 mls/hr 06/16/18 12:15 06/17/18 14:25 Normal Saline - IV 75 mls/hr ASDIR ZACHARY Administration Minocycline HCl 100 mg/ 100 mls @ 100 mls/hr 06/17/18 15:00 06/17/18 15:19 Dextrose IVPB 100 mls/hr Q12H ZACHARY Administration Norepinephrine Bitartrate 8, 500 mls @ 37.5 mls/hr 06/17/18 10:47 06/17/18 13 :00 000 mcg/ Dextrose IV 15 mcg/min TITR ZACHARY 56.25 mls/hr Administration Protocol 10 MCG/MIN Vasopressin 50 units/ Sodium 100 mls @ 24 mls/hr 06/17/18 11:30 Chloride IVPB TITR ZACHARY Protocol 0.2 UNITS/MIN Methylprednisolone Sodium Succinate 80 mg 06/17/18 10:49 06/17/18 14:19 Solu-Medrol - IVPUSH 80 mg Q6H-IV ZACHARY Administration Montelukast Sodium 10 mg 06/12/18 22:00 06/16/18 21:04 Singulair - PO 10 mg HS ZACHARY Administration Polyethylene Glycol 17 gm 06/12/18 17:35 Miralax (For Daily Use) - PO DAILY PRN CONSTIPATION Ranitidine HCl 150 mg 06/16/18 11:30 06/17/18 10:28 Zantac Oral Solution - GT 150 mg BID ZACHARY Administration Roflumilast 500 mcg 06/13/18 10:00 06/17/18 10:23 Daliresp - PO Not Given DAILY ZACHARY Microbiology 06/15/18 04:00 Sputum - Endotrachea Suction/Ventilator Gram Stain - Final 06/15/18 04:00 Sputum - Endotrachea Suction/Ventilator Sputum Culture - Final Acinetobacter Baumannii/Haemol 06/11/18 17:49 Sputum - Expectorated Gram Stain - Final 06/15/18 09:32 Blood - Peripheral Venous Blood Culture - Preliminary NO GROWTH OBTAINED AFTER 48 HOURS, INCUBATION TO CONTINUE FOR 3 DAYS. 06/15/18 09:30 Blood - Peripheral Venous Blood Culture - Preliminary NO GROWTH OBTAINED AFTER 48 HOURS, INCUBATION TO CONTINUE FOR 3 DAYS. 06/11/18 17:49 Sputum - Expectorated Sputum Culture - Preliminary Acinetobacter Baumannii/Haemol Laboratory Tests 06/03/18 06/16/18 06/17/18 09:45 08:45 05:30 Plt Count 31 L* D BUN Stool Occult Blood Negative Random Vancomycin 22.4 MARYANNE M-Dwaine TRACY Screen c-ANCA Proteinase 3 (PR3) p-ANCA Atypical p-ANCA Myeloperoxidase Ab Double Strand DNA Ab Glomerular Base Memb Ab Hepatitis A Ab Total Hep Bs Antigen Hep Bs Antibody Hep B Core Total Ab HCV Quantitation 06/17/18 06/17/18 05:30 05:30 Plt Count BUN 132 H* Stool Occult Blood Random Vancomycin MARYANNE M-Dwaine Pending TRACY Screen Pending c-ANCA Pending Proteinase 3 (PR3) Pending p-ANCA Pending Atypical p-ANCA Pending Myeloperoxidase Ab Pending Double Strand DNA Ab Pending Glomerular Base Memb Ab Pending Hepatitis A Ab Total Pending Hep Bs Antigen Pending Hep Bs Antibody Pending Hep B Core Total Ab Pending HCV Quantitation Pending Impression 1. RAOUL 2. CKD 3. respiratory failure requiring intubation 4. sepsis 5. multi drug resistant Acinetobacter 6. copd exacerbation 7. anemia 8. hyperkalemia 9. thrombocytopenia Plan - renal function is worsening - renal workup in progress - potassium treated medically - renal dose meds - pt remain oligurig - cont pressors to a map of 65 - vent support - daily cxr - RAOUL is likely multifactorial - spoke to family at length, pt may need HD if she worsens. I discussed options at length with her . Family will think about it. - discussed with ICU team - prognosis guarded Dr Marquez
--- NOTE | 2018-06-17 15:29 | ECHO ---
Version: 1 Name: TATIANNA LYMAN Exam: Adult Echocardiogram Study Date: 06/17/2018, 1:33 PM Age: 58 Years MMode/2D Measurements & Calculations IVSd: 0.74 cm LVIDs: 2.31 cm LVIDd: 3.7 cm LVPWd: 0.73 cm Ao root diam: 2.26 cm Doppler Measurements & Calculations MV E max willy: 56.3 cm/sec Med E/e': 19.9 MV A max willy: 84.8 cm/sec Med Peak E' Willy: 2.8 cm/sec MV E/A: 0.66 Lat E/e': 14.1 Lat Peak E' Willy: 4.0 cm/sec MR max P.1 mmHg Ao max P.7 mmHg Ao V2 max: 129.2 cm/sec TR max willy: 179.8 cm/sec TR max P.6 mmHg Procedure A two-dimensional transthoracic echocardiogram with color flow and Doppler was performed. The study was technically difficult with many images being suboptimal in quality. Left Ventricle The left ventricular size, thickness and function are normal. The left ventricular ejection fraction is normal. Regional wall motion abnormalities cannot be excluded due to limited visualization. Right Ventricle The right ventricle is not well visualized. Atria Normal left and right atrial size and function. Mitral Valve There is mild mitral valve thickening. There is no mitral valve stenosis. There is trace to mild ann-marie ral regurgitation. Tricuspid Valve There is mild tricuspid valve thickening. There is no tricuspid stenosis. There is mild tricuspid regurgitation. Right ventricular systolic pressure is normal. Aortic Valve The aortic valve is not well visualized. No hemodynamically significant valvular aortic stenosis. No aortic regurgitation is present. Pulmonic Valve The pulmonic valve is not well visualized. Great Vessels The aortic root is normal size. Pericardium/Pleura There is no pericardial effusion. Summary Statements The left ventricular size, thickness and function are normal The left ventricular ejection fraction is normal. Right ventricular systolic pressure is normal. There is mild tricuspid regurgitation. The study was technically difficult with many images being suboptimal in quality. Regional wall motion abnormalities cannot be excluded due to limited visualization. There is trace to mild mitral regurgitation. MD London Warren 06/17/2018, 3:28 PM Ordering Physician: SHANTANU JUNIOR Referring Physician: SHANTANU JUNIOR Performed By: Isabel Cho
[2018-06-17 16:39] LABS: HEMATOCRIT 24.9 % (32.4-45.2); HEMOGLOBIN 7.9 GM/dL (10.7-15.3); MCH 22.1 pg (25.7-33.7); MCHC 31.6 g/dl (32.0-36.0); MEAN CELL VOLUME 70.1 fl (80-96); MEAN PLT VOLUME 11.1 fl (7.5-11.1); RBC 3.56 M/mm3 (3.60-5.2); RDW 16.1 % (11.6-15.6); WHITE BLOOD COUNT 12.8 K/mm3 (4.0-10.0)
[2018-06-17 17:02] LABS: ADD RBC MORPHOLOGY YES; PLATELET COUNT 35 K/MM3 (134-434)
[2018-06-17] MEDS: SODIUM CHLORIDE 0.45% 1,000 ML with SODIUM BICARBONATE 8.4% - 75 MEQ IV SCH (17:41)
[2018-06-17 17:59] LABS: PLATELET ESTIMATE DECREASED; TARGET CELLS 1+
[2018-06-17] MEDS ORDERED: POLYMYXIN B SULFATE IVPB ONE (18:00)
--- NOTE | 2018-06-17 18:48 | PN ---
Teaching Attending Note Name of Resident: Babs Flores ATTENDING PHYSICIAN STATEMENT I saw and evaluated the patient. I reviewed the resident's note and discussed the case with the resident. I agree with the resident's findings and plan as documented with exceptions below. SUBJECTIVE: Patient seen and examined, intubated and sedated, unable to do ROS. OBJECTIVE: Vital Signs Period Temp Pulse Resp BP Sys/Echevarria Pulse Ox Last 24 Hr 97.1 F-98.1 F 77-102 21-24 85-127/44-65 95-99 Intake & Output 06/14/18 06/15/18 06/16/18 06/17/18 23:59 23:59 23:59 23:59 Intake Total 1740 3183.5 4278 2280 Output Total 797 281 7990 Balance 1740 2983.5 3818 930 Weight 142 lb 3.2 oz 139 lb 9.6 oz 153 lb 1.6 oz 161 lb 3.2 oz General: intubated sedated Chest: positive air entry, scattered wheezing, decreased breath sounds left lower base Abdomen:Soft, NT, ND Extremities: no edema Active Medications Acetaminophen (Tylenol -) 650 mg PO Q6H PRN PRN Reason: PAIN LEVEL 6-10 Last Admin: 06/13/18 01:30 Dose: 650 mg Albuterol Sulfate (Ventolin 0.083% Nebulizer Soln -) 1 amp NEB Q1H PRN PRN Reason: SHORT OF BREATH/WHEEZING Last Admin: 06/16/18 11:51 Dose: 1 amp Albuterol/Ipratropium (Duoneb -) 1 amp NEB Q4HPO [facility] Last Admin: 06/17/18 17:46 Dose: 1 amp Chlorhexidine Gluconate (Hibiclens For Decolonization -) 1 applic TP HS [facility]ACHARY Last Admin: 06/16/18 21:04 Dose: 1 applic Diltiazem HCl (Cardizem -) 30 mg PO Q6HPO ZACHARY Last Admin: 06/17/18 17:40 Dose: Not Given Diltiazem HCl (Cardizem Injection -) 10 mg IVPUSH Q4H PRN PRN Reason: TACHYCARDIA Last Admin: 06/14/18 15:34 Dose: 10 mg Ergocalciferol (Drisdol -) 50,000 unit PO Q7D@1000 [facility] Last Admin: 06/15/18 10:59 Dose: Not Given Ferrous Sulfate (Feosol) 300 mg GT DAILY [facility] Last Admin: 06/17/18 10:28 Dose: 300 mg Folic Acid (Folic Acid -) 1 mg PO DAILY [facility] Last Admin: 06/17/18 10:29 Dose: 1 mg Propofol (Diprivan -) 1,000,000 mcg in 100 mls @ 1.935 mls/hr IVPB TITR ZACHARY; Protocol Last Admin: 06/17/18 14:25 Dose: 15 mcg/kg/min, 5.805 mls/hr Fentanyl 500 mcg/ Dextrose 100 mls @ 10 mls/hr IVPB TITR ZACHARY; Protocol Last Admin: 06/17/18 04:30 Dose: 75 mcg/hr, 15 mls/hr Azithromycin 500 mg/ Dextrose 250 mls @ 250 mls/hr IVPB DAILY [facility] Last Admin: 06/17/18 10:28 Dose: 250 mls/hr Minocycline HCl 100 mg/ (Dextrose) 100 mls @ 100 mls/hr IVPB Q12H [facility]ACHARY Last Admin: 06/17/18 15:19 Dose: 100 mls/hr Norepinephrine Bitartrate 8, (000 mcg/ Dextrose) 500 mls @ 37.5 mls/hr IV TITR ZACHARY; Protocol Last Admin: 06/17/18 17:44 Dose: 13 mcg/min, 48.75 mls/hr Vasopressin 50 units/ Sodium (Chloride) 100 mls @ 24 mls/hr IVPB TITR ZACHARY; Protocol Last Admin: 06/17/18 17:40 Dose: Not Given Sodium Bicarbonate 75 meq/ (Sodium Chloride) 1,075 mls @ 75 mls/hr IV Q14H [facility]ACHARY Last Admin: 06/17/18 17:41 Dose: 75 mls/hr Polymyxin B Sulfate 700,000 (unit/ Dextrose) 500 mls @ 250 mls/hr IVPB ONCE ONE Stop: 06/17/18 19:59 Last Admin: 06/17/18 18:01 Dose: 250 mls/hr Methylprednisolone Sodium Succinate (Solu-Medrol -) 80 mg IVPUSH Q6H-IV [facility]ACHARY Last Admin: 06/17/18 14:19 Dose: 80 mg Montelukast Sodium (Singulair -) 10 mg PO HS [facility]ARY Last Admin: 06/16/18 21:04 Dose: 10 mg Polyethylene Glycol (Miralax (For Daily Use) -) 17 gm PO DAILY PRN PRN Reason: CONSTIPATION Ranitidine HCl (Zantac Oral Solution -) 150 mg GT BID [facility] Last Admin: 06/17/18 10:28 Dose: 150 mg Roflumilast (Daliresp -) 500 mcg PO DAILY [facility] Last Admin: 06/17/18 10:23 Dose: Not Given Laboratory Results - last 24 hr 06/15/18 06/17/18 06/17/18 12:10 00:30 05:30 WBC 12.2 H RBC 3.72 Hgb 8.0 L Hct 26.6 L MCV 71.5 L MCH 21.6 L MCHC 30.2 L RDW 16.4 H Plt Count 31 L* D MPV 9.7 Absolute Neuts (auto) 11.7 H Total Counted Neutrophils % 95.6 H Neutrophils % (Manual) 93.0 H Band Neutrophils % 5.0 Lymphocytes % 3.4 L D Lymphocytes % (Manual) 2.0 L D Monocytes % 0.9 L Monocytes % (Manual) 0 L D Eosinophils % 0.0 D Eosinophils % (Manual) 0.0 Basophils % 0.1 Basophils % (Manual) 0.0 Myelocytes % (Man) 0 Promyelocytes % (Man) 0 Blast Cells % (Manual) 0 Nucleated RBC % 0 Metamyelocytes 0 Hypochromia 1+ Platelet Estimate Decreased Platelet Comment Polychromasia 1+ Poikilocytosis 1+ Anisocytosis 0 Microcytosis 1+ Macrocytosis 0 Target Cells [place] Cells 1+ PT with INR INR Fibrin Degrad Products 5 H Puncture Site ABG pH ABG pCO2 at Pt Temp ABG pO2 at Pt Temp ABG HCO3 ABG O2 Sat (Measured) ABG O2 Content ABG Base Excess Timmy Test O2 Delivery Device Oxygen Flow Rate Vent Rate Mechanical Rate PEEP Pressure Support Vent Sodium 132 L Potassium 5.7 H Chloride 98 Carbon Dioxide 25 Anion Gap 10 BUN 127 H* Creatinine 3.6 H Creat Clearance w eGFR 12.94 Random Glucose 129 H Calcium 7.3 L Phosphorus Magnesium Total Bilirubin AST ALT Alkaline Phosphatase Total Protein Albumin 06/17/18 06/17/18 06/17/18 05:30 05:30 12:10 WBC RBC Hgb Hct MCV MCH MCHC RDW Plt Count MPV Absolute Neuts (auto) Total Counted Neutrophils % Neutrophils % (Manual) Band Neutrophils % Lymphocytes % Lymphocytes % (Manual) Monocytes % Monocytes % (Manual) Eosinophils % Eosinophils % (Manual) Basophils % Basophils % (Manual) Myelocytes % (Man) Promyelocytes % (Man) Blast Cells % (Manual) Nucleated RBC % Metamyelocytes Hypochromia Platelet Estimate Platelet Comment Polychromasia Poikilocytosis Anisocytosis Microcytosis Macrocytosis Target Cells [place] Cells PT with INR 13.50 H INR 1.19 H Fibrin Degrad Products Puncture Site Right radial ABG pH 7.26 L ABG pCO2 at Pt Temp 46.5 H ABG pO2 at Pt Temp 137.0 H D ABG HCO3 20.3 L ABG O2 Sat (Measured) 99.3 H ABG O2 Content 10.9 L ABG Base Excess -5.8 L Timmy Test Positive O2 Delivery Device Vent Oxygen Flow Rate 40% Vent Rate 22 Mechanical Rate Yes PEEP 8.0 Pressure Support Vent 300 Sodium 132 L Potassium 5.5 H Chloride 98 Carbon Dioxide 24 Anion Gap 10 BUN 132 H* Creatinine 3.8 H Creat Clearance w eGFR 12.16 Random Glucose 159 H Calcium 7.4 L Phosphorus 8.6 H Magnesium 2.0 Total Bilirubin 0.3 AST 19 ALT 23 Alkaline Phosphatase 57 Total Protein 3.6 L Albumin 1.1 L 06/17/ 16:15 WBC 12.8 H RBC 3.56 L Hgb 7.9 L Hct 24.9 L MCV 70.1 L MCH 22.1 L MCHC 31.6 L RDW 16.1 H Plt Count 35 L* MPV 11.1 D Absolute Neuts (auto) 12.5 H Total Counted 100 Neutrophils % No Result Required. Neutrophils % (Manual) 92.0 H Band Neutrophils % 4.0 Lymphocytes % No Result Required. Lymphocytes % (Manual) 2.0 L Monocytes % Monocytes % (Manual) 2 L D Eosinophils % Eosinophils % (Manual) Basophils % Basophils % (Manual) Myelocytes % (Man) Promyelocytes % (Man) Blast Cells % (Manual) Nucleated RBC % 0 Metamyelocytes Hypochromia 2+ Platelet Estimate Decreased Platelet Comment No clumping noted Polychromasia 1+ Poikilocytosis Anisocytosis Microcytosis Macrocytosis Target Cells 1+ [place] Cells PT with INR INR Fibrin Degrad Products Puncture Site ABG pH ABG pCO2 at Pt Temp ABG pO2 at Pt Temp ABG HCO3 ABG O2 Sat (Measured) ABG O2 Content ABG Base Excess Timmy Test O2 Delivery Device Oxygen Flow Rate Vent Rate Mechanical Rate PEEP Pressure Support Vent Sodium Potassium Chloride Carbon Dioxide Anion Gap BUN Creatinine Creat Clearance w eGFR Random Glucose Calcium Phosphorus Magnesium Total Bilirubin AST ALT Alkaline Phosphatase Total Protein Albumin Microbiology 06/15/18 04:00 Sputum - Endotrachea Suction/Ventilator Gram Stain - Final 06/15/18 04:00 Sputum - Endotrachea Suction/Ventilator Sputum Culture - Final Acinetobacter Baumannii/Haemol 06/15/18 09:30 Blood - Peripheral Venous Blood Culture - Preliminary NO GROWTH OBTAINED AFTER 48 HOURS, INCUBATION TO CONTINUE FOR 3 DAYS. 06/15/18 09:32 Blood - Peripheral Venous Blood Culture - Preliminary NO GROWTH OBTAINED AFTER 48 HOURS, INCUBATION TO CONTINUE FOR 3 DAYS. 06/11/18 17:49 Sputum - Expectorated Gram Stain - Final 06/11/18 17:49 Sputum - Expectorated Sputum Culture - Preliminary Acinetobacter Baumannii/Haemol 06/10/18 18:00 Blood - Peripheral Venous Blood Culture - Final NO GROWTH AFTER 5 DAYS INCUBATION 06/10/18 17:00 Blood - Peripheral Venous Blood Culture - Final NO GROWTH AFTER 5 DAYS INCUBATION 06/12/18 15:00 Stool Clostridium difficile Antigen (BENITO) - Final 06/12/18 15:00 Stool Clostridium difficile Toxin Assay - Final 05/27/18 17:42 Blood - Peripheral Venous Blood Culture - Final NO GROWTH AFTER 5 DAYS INCUBATION 05/27/18 17:42 Blood - Peripheral Venous Blood Culture - Final NO GROWTH AFTER 5 DAYS INCUBATION CXR image and results reviewed ASSESSMENT AND PLAN: 58yo F with PMH HTn, COPD on home O2 (3L NC) and anemia presented with dyspnea and cough on 05/27/2018, initially treated for COPD exac, course complicated by worsening respiratory status, new PNA, transferred to ICU on 06/12, now on Bipap -Acute on chronic hypercapnic respiratory failure, r/o ARDS -Septic shock due to CHIKI/LLL HAP with left pleural effusion, likely parapneumonic, ?empyema, suspected Acinetobacter PNA with multiorgan failure -Acute on chronic COPD/Bronchiectasis exacerbation -Acute thrombocytopenia, suspect from severe sepsis/suspected ARDS -Hypernatremia/hypercholoremia -Uncontrolled HTN, likely from respiratory distress, now hypotensive -RAOUL on CKD, likely from septic shock/hypoperfusion, r/o obstruction -Normocytic anemia Plan: Overnight events noted. Vent management/Chest tube per ICU. Pressors for MAP >65. IVF with monitoring of respiratory status. ID input noted. Abx changed to Polymyxin B/Tigecycline/Azithromycin day 3. Follow up Vanco levels. Repeat sputum cultures noted. Enteral feeds. Free water flushes. Solumedrol. Nebs. Hematology input noted. Platelets overall unchanged today. Follow up HIT panel. Fibrinogen not consistent with DIC. transfuse platelets prn. Renal consult, renal/bladder US noted. Urology input for daily insertion. Worsening oliguric renal failure. Defer to renal for HD. Off anti-hypertensives. DVTPPX SCDs Dispo continue MICU level of monitoring. Septic shock now with multiorgan failure, Prognosis poor, palliative consult noted, continue to address overall goals of care. Discussed with and niece at bedside in detail, current prognosis, plan of care and overall poor prognosis. The care of this patient involved high complexity decision making to prevent further life threatening deterioration of the patient's condition and/or to evaluate & treat vital organ system(s) failure or risk of failure. 45 minutes
--- NOTE | 2018-06-17 19:13 | PN ---
Physical Exam: SUBJECTIVE: Patient seen and examined at bedside this morning. Patient is intubated and sedated. OBJECTIVE: Vital Signs Period Temp Pulse Resp BP Sys/Echevarria Pulse Ox Last 24 Hr 97.1 F-98.1 F 77-102 21-24 85-127/44-65 95-99 GENERAL: Patient is sedated, intubated. NECK: Trachea midline, full range of motion, supple. LUNGS: + diffuse rhonchi bilaterally, decreased air entry HEART: Tachycardic, normal S1, S2 without murmur, rub or gallop. ABDOMEN: Soft, nontender, nondistended, normoactive bowel sounds. EXTREMITIES: 2+ pulses, warm, well-perfused, no edema. SKIN: Warm, dry, normal turgor, no rashes or lesions not Laboratory Results - last 24 hr 06/15/18 06/17/18 06/17/18 12:10 00:30 05:30 WBC 12.2 H RBC 3.72 Hgb 8.0 L Hct 26.6 L MCV 71.5 L MCH 21.6 L MCHC 30.2 L RDW 16.4 H Plt Count 31 L* D MPV 9.7 Absolute Neuts (auto) 11.7 H Total Counted Neutrophils % 95.6 H Neutrophils % (Manual) 93.0 H Band Neutrophils % 5.0 Lymphocytes % 3.4 L D Lymphocytes % (Manual) 2.0 L D Monocytes % 0.9 L Monocytes % (Manual) 0 L D Eosinophils % 0.0 D Eosinophils % (Manual) 0.0 Basophils % 0.1 Basophils % (Manual) 0.0 Myelocytes % (Man) 0 Promyelocytes % (Man) 0 Blast Cells % (Manual) 0 Nucleated RBC % 0 Metamyelocytes 0 Hypochromia 1+ Platelet Estimate Decreased Platelet Comment Polychromasia 1+ Poikilocytosis 1+ Anisocytosis 0 Microcytosis 1+ Macrocytosis 0 Target Cells Sterling Cells 1+ PT with INR INR Fibrin Degrad Products 5 H Puncture Site ABG pH ABG pCO2 at Pt Temp ABG pO2 at Pt Temp ABG HCO3 ABG O2 Sat (Measured) ABG O2 Content ABG Base Excess Timmy Test O2 Delivery Device Oxygen Flow Rate Vent Rate Mechanical Rate PEEP Pressure Support Vent Sodium 132 L Potassium 5.7 H Chloride 98 Carbon Dioxide 25 Anion Gap 10 BUN 127 H* Creatinine 3.6 H Creat Clearance w eGFR 12.94 Random Glucose 129 H Calcium 7.3 L Phosphorus Magnesium Total Bilirubin AST ALT Alkaline Phosphatase Total Protein Albumin 06/17/18 06/17/18 06/17/18 05:30 05:30 12:10 WBC RBC Hgb Hct MCV MCH MCHC RDW Plt Count MPV Absolute Neuts (auto) Total Counted Neutrophils % Neutrophils % (Manual) Band Neutrophils % Lymphocytes % Lymphocytes % (Manual) Monocytes % Monocytes % (Manual) Eosinophils % Eosinophils % (Manual) Basophils % Basophils % (Manual) Myelocytes % (Man) Promyelocytes % (Man) Blast Cells % (Manual) Nucleated RBC % Metamyelocytes Hypochromia Platelet Estimate Platelet Comment Polychromasia Poikilocytosis Anisocytosis Microcytosis Macrocytosis Target Cells Sterling Cells PT with INR 13.50 H INR 1.19 H Fibrin Degrad Products Puncture Site Right radial ABG pH 7.26 L ABG pCO2 at Pt Temp 46.5 H ABG pO2 at Pt Temp 137.0 H D ABG HCO3 20.3 L ABG O2 Sat (Measured) 99.3 H ABG O2 Content 10.9 L ABG Base Excess -5.8 L Timmy Test Positive O2 Delivery Device Vent Oxygen Flow Rate 40% Vent Rate 22 Mechanical Rate Yes PEEP 8.0 Pressure Support Vent 300 Sodium 132 L Potassium 5.5 H Chloride 98 Carbon Dioxide 24 Anion Gap 10 BUN 132 H* Creatinine 3.8 H Creat Clearance w eGFR 12.16 Random Glucose 159 H Calcium 7.4 L Phosphorus 8.6 H Magnesium 2.0 Total Bilirubin 0.3 AST 19 ALT 23 Alkaline Phosphatase 57 Total Protein 3.6 L Albumin 1.1 L 06/17/18 16:15 WBC 12.8 H RBC 3.56 L Hgb 7.9 L Hct 24.9 L MCV 70.1 L MCH 22.1 L MCHC 31.6 L RDW 16.1 H Plt Count 35 L* MPV 11.1 D Absolute Neuts (auto) 12.5 H Total Counted 100 Neutrophils % No Result Required. Neutrophils % (Manual) 92.0 H Band Neutrophils % 4.0 Lymphocytes % No Result Required. Lymphocytes % (Manual) 2.0 L Monocytes % Monocytes % (Manual) 2 L D Eosinophils % Eosinophils % (Manual) Basophils % Basophils % (Manual) Myelocytes % (Man) Promyelocytes % (Man) Blast Cells % (Manual) Nucleated RBC % 0 Metamyelocytes Hypochromia 2+ Platelet Estimate Decreased Platelet Comment No clumping noted Polychromasia 1+ Poikilocytosis Anisocytosis Microcytosis Macrocytosis Target Cells 1+ Lopez Cells PT with INR INR Fibrin Degrad Products Puncture Site ABG pH ABG pCO2 at Pt Temp ABG pO2 at Pt Temp ABG HCO3 ABG O2 Sat (Measured) ABG O2 Content ABG Base Excess Timmy Test O2 Delivery Device Oxygen Flow Rate Vent Rate Mechanical Rate PEEP Pressure Support Vent Sodium Potassium Chloride Carbon Dioxide Anion Gap BUN Creatinine Creat Clearance w eGFR Random Glucose Calcium Phosphorus Magnesium Total Bilirubin AST ALT Alkaline Phosphatase Total Protein Albumin Active Medications Generic Name Dose Route Start Last Admin Trade Name Freq PRN Reason Stop Dose Admin Acetaminophen 650 mg 06/12/18 17:35 06/13/18 01:30 Tylenol - PO 650 mg Q6H PRN Administration PAIN LEVEL 6-10 Albuterol Sulfate 1 amp 06/15/18 14:56 06/16/18 11:51 Ventolin 0.083% Nebulizer Soln - NEB 1 amp Q1H PRN Administration SHORT OF BREATH/WHEEZING Albuterol/Ipratropium 1 amp 06/16/18 14:00 06/17/18 17:46 Duoneb - NEB 1 amp Q4HPO ZACHARY Administration Chlorhexidine Gluconate 1 applic 06/12/18 22:00 06/16/18 21:04 Hibiclens For Decolonization - TP 1 applic HS ZACHARY Administration Diltiazem HCl 30 mg 06/12/18 18:00 06/17/18 17:40 Cardizem - PO Not Given Q6HPO ZACHARY Diltiazem HCl 10 mg 06/14/18 13:33 06/14/18 15:34 Cardizem Injection - IVPUSH 10 mg Q4H PRN Administration TACHYCARDIA Ergocalciferol 50,000 unit 06/15/18 10:00 06/15/18 10:59 Drisdol - PO Not Given Q7D@1000 ZACHARY Ferrous Sulfate 300 mg 06/16/18 10:00 06/17/18 10:28 Feosol GT 300 mg DAILY ZACHARY Administration Folic Acid 1 mg 06/13/18 10:00 06/17/18 10:29 Folic Acid - PO 1 mg DAILY ZACHARY Administration Propofol 1,000,000 mcg in 100 mls @ 1.935 mls/hr 06/15/18 01:45 06/17/18 14: 25 Diprivan - IVPB 15 mcg/kg/min TITR ZACHARY 5.805 mls/hr Administration Protocol 5 MCG/KG/MIN Fentanyl 500 mcg/ Dextrose 100 mls @ 10 mls/hr 06/15/18 01:45 06/17/18 04:30 IVPB 75 mcg/hr TITR ZACHARY 15 mls/hr Administration Protocol 50 MCG/HR Azithromycin 500 mg/ Dextrose 250 mls @ 250 mls/hr 06/15/18 14:30 06/17/18 10 :28 IVPB 250 mls/hr DAILY ZACHARY Administration Minocycline HCl 100 mg/ 100 mls @ 100 mls/hr 06/17/18 15:00 06/17/18 15:19 Dextrose IVPB 100 mls/hr Q12H ZACHARY Administration Norepinephrine Bitartrate 8, 500 mls @ 37.5 mls/hr 06/17/18 10:47 06/17/18 17 :44 000 mcg/ Dextrose IV 13 mcg/min TITR ZACHARY 48.75 mls/hr Administration Protocol 10 MCG/MIN Vasopressin 50 units/ Sodium 100 mls @ 24 mls/hr 06/17/18 11:30 06/17/18 17: 40 Chloride IVPB Not Given TITR ZACHARY Protocol 0.2 UNITS/MIN Sodium Bicarbonate 75 meq/ 1,075 mls @ 75 mls/hr 06/17/18 15:45 06/17/18 17: 41 Sodium Chloride IV 75 mls/hr Q14H ZACHARY Administration Polymyxin B Sulfate 700,000 500 mls @ 250 mls/hr 06/17/18 18:00 06/17/18 18: 01 unit/ Dextrose IVPB 06/17/18 19:59 250 mls/hr ONCE ONE Administration Methylprednisolone Sodium Succinate 80 mg 06/17/18 10:49 06/17/18 14:19 Solu-Medrol - IVPUSH 80 mg Q6H-IV ZACHARY Administration Montelukast Sodium 10 mg 06/12/18 22:00 06/16/18 21:04 Singulair - PO 10 mg HS ZACHARY Administration Polyethylene Glycol 17 gm 06/12/18 17:35 Miralax (For Daily Use) - PO DAILY PRN CONSTIPATION Ranitidine HCl 150 mg 06/16/18 11:30 06/17/18 10:28 Zantac Oral Solution - GT 150 mg BID ZACHARY Administration Roflumilast 500 mcg 06/13/18 10:00 06/17/18 10:23 Daliresp - PO Not Given DAILY ZACHARY Imaging: Chest X-Ray (05/27/18): No significant interval change. Persistent bilateral increased interstitial markings. Differential diagnosis again includes chronic interstitial lung disease. Cannot rule out noncardiogenic mild pulmonary venous congestion or interstitial infiltrates. Chest X-ray (05/30/18): No acute pathology or significant change. Chest CT scan without contrast (05/31/18): Moderately severe COPD with extensive bilateral bronchiectasis. These findings are unchanged since a previous study of 02/07/18. There is no evidence of acute pathology within the chest. CXR (06/06/18) 2 views of the some minimal degenerative changes with wedging. The soft tissues are intact. The chest reveal a normal-sized heart, normal knob and normal genesis. There are some coarse lung changes. There may be some linear atelectasis/density by the left heart border. Since the prior study 05/30/18, the density by the left heart border has become apparent. This most likely represents a focal area of atelectasis. CXR (06/10/18): New pulmonary consolidation medial aspect of the left upper lung zone obscuring aortic arch. No pleural effusion, or pneumothorax seen. No evidence of vascular congestive changes. CXR (06/13/18): Resolving segmental left upper lobe pneumonia. Left lower lobe pneumonia unchanged. CXR (06/14/18): No significant change in left sided infiltrates. ASSESSMENT/PLAN: Patient is a 58 year old female who presented with shortness of breath and found to be in COPD exacerbation. #Acute Respiratory Distress Syndrome - Patient intubated and started on vasopressor due to respiratory distress and hemodynamic instability. - Solu-medrol 40 mg IV q6 - Duonebs q4 STA - Daliresp GT - Nasogastric tube placed. #Hospital acquired pneumonia - CXR - worsening - Sputum culture - Acinetobacter baumanii/haemol. - ID (Dr. Tao) consulted. Recommendations appreciated. - Polymyxin, minocycline, Azithromax -- renally dosed - Must be on continuous IV fluids due to Nephrotoxic antibiotics. #RAOUL on CKD: Cr 3.8 BUN 132 -Renal ultrasound done. -Nephrology (Dr. Marquez) consulted. Recommendations appreciated. -Dialysis may be impending. -Maintain daily and monitor Urine output -Renal dose meds for a GFR of 16 -Potassium treated medically -Change fluids to NS, stop LR -Daily CXR -Renal US - suggestive of CKD -Urine sodium is low, follow the rest of urine studies and calculate FeNa -Renal work-up sent -Continue pressors to maintain MAP of 65 -14 Irish catheter placed by urology #Hyperkalemia: K 5.7 -10 units insulin/D50, Ca gluconate, Albuterol given yesterday. #Acute on Chronic COPD exacerbation : - may be 2/2 CAP vs inhaled chemicals (house paint) - Pulmonary Consult. Recs appreciated: - Continue NIPPV - Increase solu-medrol dose 40mg to q6h - Duonebs QID - Albuterol PRN - Add Daliresp (500mcg daily) - Symbicort not given. Pt reports allergy to symbicort. - Keep O2 satn >90% - Chest PT BID - Pt has frequent exacerbations, may need to be on chronic low dose steroids at home. #Left-sided Chest Pain: likely pleuritic - may be empyema - further work-up with chest CT once patient is stable - unlikely cardiac in nature - Tylenol PRN for pain. #Microcytic Anemia: Hgb stable at 8 - Continue Fe supplements and folate - will trend CBC, transfuse with Hgb<7 #Thrombocytopenia: plt 31 - likely multifactorial; r/o DIC - PT - 13.3, INR 1.18, Fibrinogen 899, D-dimer 1638 - Pending SPEP, globulin studies, anti-Plt ABs, broad immunologic panels, TFTs - Hold Lovenox - will monitor closely - Transfuse platelets if <20K - Hematology (Dr. Covington) consulted. Recommendations appreciated. #Hypertension - Hypotensive today. Hold Cardizem 30mg q6h - Add Cardizem IV PRN for hypertension/tachycardia - IV fluids given. - Monitor BP closely #FEN - IV NS @ 75ml/hr - routine bmp monitoring - Nepro GT #Prophylaxis - Hold Lovenox for now. Patient has low platelet count. #Disposition - To ICU for closer monitoring. Visit type - Emergency Visit Emergency Visit: Yes ED Registration Date: 05/27/18 Care time: The patient presented to the Emergency Department on the above date and was hospitalized for further evaluation of their emergent condition. - New Patient This patient is new to me today: Yes Date on this admission: 06/17/18 - Critical Care Critical Care patient: Yes Total Critical Care Time (in minutes): 40 Critical Care Statement: The care of this patient involved high complexity decision making to prevent further life threatening deterioration of the patient 's condition and/or to evaluate & treat vital organ system(s) failure or risk of failure.
[2018-06-17 20:29] LABS: ANION GAP 17 MMOL/L (8-16); CALCIUM 7.6 mg/dL (8.5-10.1); CHLORIDE 92 mmol/L (98-107); CO2 23 mmol/L (21-32); CREATININE 3.9 mg/dL (0.55-1.3); GLUCOSE,RANDOM 178 mg/dL (74-106); POTASSIUM 5.2 mmol/L (3.5-5.1); SODIUM 132 mmol/L (136-145)
[2018-06-17 20:31] LABS: BLOOD UREA NITROGEN 137 mg/dL (7-18)
--- NOTE | 2018-06-17 21:41 | PN ---
Progress Note (short form) - Note Progress Note: Pt. was noted to have swelling in her hands, the family requested to have the rings cut off. ER attending was notified and he declined as the Pt. was outside of the ER. The Pt.'s family attempted to cut the rings off and accidentally nicked part of the Pt.'s finger. Bleeding was succesfully tamponaded, there was minimal (less than 5ml) blood loss. Encounter was observed by nurse and myself. Pt.s pain was addressed with pain medication. Family elected to cease attempts at this time and agreed that we could remove the rings tomorrow under with an ER attending.
[2018-06-17] MEDS: MONTELUKAST NA 10 MG TABLET PO SCH (22:26)
[2018-06-17] MEDS: CHLORHEXIDINE GLUCONATE 4% CLEANSER FOR DECOLONIZATION TP SCH (22:26)
[2018-06-18] MEDS: dilTIAZem HCL 30 MG TABLET (FP) PO SCH ×4 (00:13→18:51)
[2018-06-18] MEDS ORDERED: fentaNYL CITRATE 250 MCG/5 ML VIAL ONE ×3 (00:51→18:21)
[2018-06-18] MEDS ORDERED: SODIUM BICARBONATE 8.4% 50 MEQ/50 ML VIAL ONE (00:52)
[2018-06-18] MEDS: ALBUTEROL SO4 2.5/IPRATROPIUM 0.5 INH SOL 3 ML VIAL.NEB. NEB SCH ×6 (02:00→21:38)
[2018-06-18] MEDS: methylPREDNISolone NA SUCC 40 MG/1 ML VIAL IVPUSH SCH ×4 (03:35→22:16)
[2018-06-18] MEDS: MINOCYCLINE HCL IVPB SCH ×2 (04:00→16:00)
[2018-06-18] MEDS: DEXTROSE 5% IVPB SCH ×2 (04:00→16:00)
[2018-06-18] MEDS: WATER IVPB SCH ×2 (04:00→16:00)
[2018-06-18] MEDS: ALBUTEROL SO4 0.083% IH SOL 2.5 MG/3 ML VIAL.NEB. NEB PRN ×2 (04:40→16:36)
[2018-06-18] MEDS: FENTANYL INJECTION 500 MCG in DEXTROSE 5%-WATER - 90 ML IVPB SCH (04:42)
[2018-06-18] MEDS: PROPOFOL 1,000,000 MCG/100 ML VIAL IVPB SCH (04:42)
[2018-06-18 05:57] LABS: BASO % 0.1 % (0-2.0); HEMOGLOBIN 7.7 GM/dL (10.7-15.3); LYMPH % 3.4 % (8-40); MCH 21.8 pg (25.7-33.7); MCHC 31.8 g/dl (32.0-36.0); MEAN CELL VOLUME 68.5 fl (80-96); MEAN PLT VOLUME 10.8 fl (7.5-11.1); MONO % 0.8 % (3.8-10.2); NEUT % 95.7 % (42.8-82.8); RBC 3.51 M/mm3 (3.60-5.2); RDW 16.3 % (11.6-15.6)
[2018-06-18 06:06] LABS: HBSAG SCREEN Negative (Negative); HEP B CORE AB, TOT Negative (Negative)
[2018-06-18 06:07] LABS: INR 1.03 (0.83-1.09); PROTHROMBIN TIME (PATIENT) 12.2 SEC (9.7-13.0)
[2018-06-18 06:10] LABS: PLATELET COUNT 18 K/MM3 (134-434)
[2018-06-18] MEDS: SODIUM CHLORIDE 0.45% 1,000 ML with SODIUM BICARBONATE 8.4% - 75 MEQ IV SCH ×2 (06:27→22:16)
[2018-06-18 06:51] LABS: ALBUMIN 1.1 g/dl (3.4-5.0); ALK PHOS 63 U/L (45-117); ANION GAP 18 MMOL/L (8-16); BILIRUBIN,TOTAL 0.3 mg/dL (0.2-1); CALCIUM 7.3 mg/dL (8.5-10.1); CHLORIDE 88 mmol/L (98-107); CO2 22 mmol/L (21-32); GLUCOSE,RANDOM 132 mg/dL (74-106); MAGNESIUM 2.1 mg/dL (1.8-2.4); POTASSIUM 5.1 mmol/L (3.5-5.1); SGOT/AST 17 U/L (15-37); SGPT/ALT 24 U/L (13-61); SODIUM 129 mmol/L (136-145); TOT PROT 3.3 g/dl (6.4-8.2)
[2018-06-18 07:01] LABS: CREATININE 4.1 mg/dL (0.55-1.3)
[2018-06-18 07:41] LABS: BLOOD UREA NITROGEN 140 mg/dL (7-18)
[2018-06-18 07:42] LABS: PHOSPHOROUS 10.2 mg/dL (2.5-4.9)
--- NOTE | 2018-06-18 08:01 | PN ---
Physical Exam: SUBJECTIVE: Patient seen and examined at bedside. Currently intubated and sedated. Unable to arouse or answer questions. OBJECTIVE: Vital Signs Period Temp Pulse Resp BP Sys/Echevarria Pulse Ox Last 24 Hr 96.6 F-98.0 F 77-114 20-24 85-131/44-61 95-99 GENERAL: A&Ox0, intubated and sedated EYES: pupils non-reactive to light ENT: intubated, productive of multiple secretions, NGT in place draining copious secretions of feeds NECK: No JVD LUNGS: coarse, mechanical breath sounds HEART: RRR, no murmurs appreciated ABDOMEN: Soft, BS diminished EXTREMITIES: 2+ pulses, Mild edema b/l Laboratory Results - last 24 hr 06/15/18 06/17/18 06/17/18 12:10 05:30 05:30 WBC RBC Hgb Hct MCV MCH MCHC RDW Plt Count MPV Absolute Neuts (auto) Total Counted Neutrophils % Neutrophils % (Manual) 93.0 H Band Neutrophils % 5.0 Lymphocytes % Lymphocytes % (Manual) 2.0 L D Monocytes % Monocytes % (Manual) 0 L D Eosinophils % Eosinophils % (Manual) 0.0 Basophils % Basophils % (Manual) 0.0 Myelocytes % (Man) 0 Promyelocytes % (Man) 0 Blast Cells % (Manual) 0 Nucleated RBC % 0 Metamyelocytes 0 Hypochromia 1+ Platelet Estimate Decreased Platelet Comment Polychromasia 1+ Poikilocytosis 1+ Anisocytosis 0 Microcytosis 1+ Macrocytosis 0 Target Cells Burt Cells 1+ PT with INR INR Fibrin Degrad Products 5 H Anticoagulation Therapy Puncture Site ABG pH ABG pCO2 at Pt Temp ABG pO2 at Pt Temp ABG HCO3 ABG O2 Sat (Measured) ABG O2 Content ABG Base Excess Timmy Test O2 Delivery Device Oxygen Flow Rate Vent Mode Vent Rate Mechanical Rate PEEP Pressure Support Vent Sodium Potassium Chloride Carbon Dioxide Anion Gap BUN 132 H* Creatinine Creat Clearance w eGFR Random Glucose Calcium Phosphorus Magnesium Total Bilirubin AST ALT Alkaline Phosphatase Total Protein Albumin Hepatitis A Ab Total Hep Bs Antigen Hep Bs Antibody Hep B Core Total Ab 06/17/18 06/17/18 06/17/18 05:30 12:10 16:15 WBC 12.8 H RBC 3.56 L Hgb 7.9 L Hct 24.9 L MCV 70.1 L MCH 22.1 L MCHC 31.6 L RDW 16.1 H Plt Count 35 L* MPV 11.1 D Absolute Neuts (auto) 12.5 H Total Counted 100 Neutrophils % No Result Required. Neutrophils % (Manual) 92.0 H Band Neutrophils % 4.0 Lymphocytes % No Result Required. Lymphocytes % (Manual) 2.0 L Monocytes % Monocytes % (Manual) 2 L D Eosinophils % Eosinophils % (Manual) Basophils % Basophils % (Manual) Myelocytes % (Man) Promyelocytes % (Man) Blast Cells % (Manual) Nucleated RBC % 0 Metamyelocytes Hypochromia 2+ Platelet Estimate Decreased Platelet Comment No clumping noted Polychromasia 1+ Poikilocytosis Anisocytosis Microcytosis Macrocytosis Target Cells 1+ Lopez Cells PT with INR INR Fibrin Degrad Products Anticoagulation Therapy Puncture Site Right radial ABG pH 7.26 L ABG pCO2 at Pt Temp 46.5 H ABG pO2 at Pt Temp 137.0 H D ABG HCO3 20.3 L ABG O2 Sat (Measured) 99.3 H ABG O2 Content 10.9 L ABG Base Excess -5.8 L Timmy Test Positive O2 Delivery Device Vent Oxygen Flow Rate 40% Vent Mode Vent Rate 22 Mechanical Rate Yes PEEP 8.0 Pressure Support Vent 300 Sodium Potassium Chloride Carbon Dioxide Anion Gap BUN Creatinine Creat Clearance w eGFR Random Glucose Calcium Phosphorus Magnesium Total Bilirubin AST ALT Alkaline Phosphatase Total Protein Albumin Hepatitis A Ab Total Negative Hep Bs Antigen Negative Hep Bs Antibody Non reactive Hep B Core Total Ab Negative 06/17/18 06/18/18 06/18/18 19:30 05:30 05:30 WBC 13.0 H RBC 3.51 L Hgb 7.7 L Hct 24.0 L MCV 68.5 L MCH 21.8 L MCHC 31.8 L RDW 16.3 H Plt Count 18 L* D MPV 10.8 Absolute Neuts (auto) 12.4 H Total Counted Neutrophils % 95.7 H Neutrophils % (Manual) Band Neutrophils % Lymphocytes % 3.4 L Lymphocytes % (Manual) Monocytes % 0.8 L Monocytes % (Manual) Eosinophils % 0.0 Eosinophils % (Manual) Basophils % 0.1 Basophils % (Manual) Myelocytes % (Man) Promyelocytes % (Man) Blast Cells % (Manual) Nucleated RBC % 0 Metamyelocytes Hypochromia Platelet Estimate Platelet Comment Polychromasia Poikilocytosis Anisocytosis Microcytosis Macrocytosis Target Cells Lopez Cells PT with INR 12.20 INR 1.03 Fibrin Degrad Products Anticoagulation Therapy Puncture Site ABG pH ABG pCO2 at Pt Temp ABG pO2 at Pt Temp ABG HCO3 ABG O2 Sat (Measured) ABG O2 Content ABG Base Excess Timmy Test O2 Delivery Device Oxygen Flow Rate Vent Mode Vent Rate Mechanical Rate PEEP Pressure Support Vent Sodium 132 L Potassium 5.2 H Chloride 92 L Carbon Dioxide 23 Anion Gap 17 H BUN 137 H* Creatinine 3.9 H Creat Clearance w eGFR 11.80 Random Glucose 178 H Calcium 7.6 L Phosphorus Magnesium Total Bilirubin AST ALT Alkaline Phosphatase Total Protein Albumin Hepatitis A Ab Total Hep Bs Antigen Hep Bs Antibody Hep B Core Total Ab 06/18/18 06/18/18 05:30 06:00 WBC RBC Hgb Hct MCV MCH MCHC RDW Plt Count MPV Absolute Neuts (auto) Total Counted Neutrophils % Neutrophils % (Manual) Band Neutrophils % Lymphocytes % Lymphocytes % (Manual) Monocytes % Monocytes % (Manual) Eosinophils % Eosinophils % (Manual) Basophils % Basophils % (Manual) Myelocytes % (Man) Promyelocytes % (Man) Blast Cells % (Manual) Nucleated RBC % Metamyelocytes Hypochromia Platelet Estimate Platelet Comment Polychromasia Poikilocytosis Anisocytosis Microcytosis Macrocytosis Target Cells Burt Cells PT with INR INR Fibrin Degrad Products Anticoagulation Therapy No Result Required. Puncture Site ABG pH ABG pCO2 at Pt Temp ABG pO2 at Pt Temp ABG HCO3 ABG O2 Sat (Measured) ABG O2 Content ABG Base Excess Timmy Test O2 Delivery Device No Result Required. Oxygen Flow Rate No Result Required. Vent Mode No Result Required. Vent Rate No Result Required. Mechanical Rate No Result Required. PEEP Pressure Support Vent No Result Required. Sodium 129 L Potassium 5.1 Chloride 88 L Carbon Dioxide 22 Anion Gap 18 H BUN 140 H* Creatinine 4.1 H Creat Clearance w eGFR 11.14 Random Glucose 132 H Calcium 7.3 L Phosphorus 10.2 H* Magnesium 2.1 Total Bilirubin 0.3 AST 17 ALT 24 Alkaline Phosphatase 63 Total Protein 3.3 L Albumin 1.1 L Hepatitis A Ab Total Hep Bs Antigen Hep Bs Antibody Hep B Core Total Ab Active Medications Generic Name Dose Route Start Last Admin Trade Name Freq PRN Reason Stop Dose Admin Acetaminophen 650 mg 06/12/18 17:35 06/13/18 01:30 Tylenol - PO 650 mg Q6H PRN Administration PAIN LEVEL 6-10 Albuterol Sulfate 1 amp 06/15/18 14:56 06/18/18 04:40 Ventolin 0.083% Nebulizer Soln - NEB 1 amp Q1H PRN Administration SHORT OF BREATH/WHEEZING Albuterol/Ipratropium 1 amp 06/16/18 14:00 06/18/18 06:01 Duoneb - NEB 1 amp Q4HPO ZACHARY Administration Chlorhexidine Gluconate 1 applic 06/12/18 22:00 06/17/18 22:26 Hibiclens For Decolonization - TP 1 applic HS ZACHARY Administration Diltiazem HCl 30 mg 06/12/18 18:00 06/18/18 06:27 Cardizem - PO Not Given Q6HPO ZACHARY Diltiazem HCl 10 mg 06/14/18 13:33 06/14/18 15:34 Cardizem Injection - IVPUSH 10 mg Q4H PRN Administration TACHYCARDIA Ergocalciferol 50,000 unit 06/15/18 10:00 06/15/18 10:59 Drisdol - PO Not Given Q7D@1000 ZACAHRY Ferrous Sulfate 300 mg 06/16/18 10:00 06/17/18 10:28 Feosol GT 300 mg DAILY ZACHARY Administration Folic Acid 1 mg 06/13/18 10:00 06/17/18 10:29 Folic Acid - PO 1 mg DAILY ZACHARY Administration Propofol 1,000,000 mcg in 100 mls @ 1.935 mls/hr 06/15/18 01:45 06/18/18 04: 42 Diprivan - IVPB 15 mcg/kg/min TITR ZACHARY 5.805 mls/hr Administration Protocol 5 MCG/KG/MIN Fentanyl 500 mcg/ Dextrose 100 mls @ 10 mls/hr 06/15/18 01:45 06/18/18 04:42 IVPB 75 mcg/hr TITR ZACHARY 15 mls/hr Administration Protocol 50 MCG/HR Azithromycin 500 mg/ Dextrose 250 mls @ 250 mls/hr 06/15/18 14:30 06/17/18 10 :28 IVPB 250 mls/hr DAILY ZACHARY Administration Minocycline HCl 100 mg/ 100 mls @ 100 mls/hr 06/17/18 15:00 06/18/18 04:00 Dextrose IVPB 100 mls/hr Q12H ZACHARY Administration Norepinephrine Bitartrate 8, 500 mls @ 37.5 mls/hr 06/17/18 10:47 06/17/18 19 :30 000 mcg/ Dextrose IV 15 mcg/min TITR ZACHARY 56.25 mls/hr Titration Protocol 10 MCG/MIN Vasopressin 50 units/ Sodium 100 mls @ 24 mls/hr 06/17/18 11:30 06/17/18 17: 40 Chloride IVPB Not Given TITR ZACHARY Protocol 0.2 UNITS/MIN Sodium Bicarbonate 75 meq/ 1,075 mls @ 75 mls/hr 06/17/18 15:45 06/18/18 06: 27 Sodium Chloride IV Not Given Q14H ZACHARY Methylprednisolone Sodium Succinate 80 mg 06/17/18 10:49 06/18/18 03:35 Solu-Medrol - IVPUSH 80 mg Q6H-IV ZACHARY Administration Montelukast Sodium 10 mg 06/12/18 22:00 06/17/18 22:26 Singulair - PO 10 mg HS ZACHARY Administration Polyethylene Glycol 17 gm 06/12/18 17:35 Miralax (For Daily Use) - PO DAILY PRN CONSTIPATION Ranitidine HCl 150 mg 06/16/18 11:30 06/17/18 22:26 Zantac Oral Solution - GT 150 mg BID ZACHARY Administration Roflumilast 500 mcg 06/13/18 10:00 06/17/18 10:23 Daliresp - PO Not Given DAILY ZACHARY ASSESSMENT/PLAN: Imaging: Chest X-Ray (05/27/18): No significant interval change. Persistent bilateral increased interstitial markings. Differential diagnosis again includes chronic interstitial lung disease. Cannot rule out noncardiogenic mild pulmonary venous congestion or interstitial infiltrates. Chest X-ray (05/30/18): No acute pathology or significant change. Chest CT scan without contrast (05/31/18): Moderately severe COPD with extensive bilateral bronchiectasis. These findings are unchanged since a previous study of 02/07/18. There is no evidence of acute pathology within the chest. CXR (06/06/18) 2 views of the some minimal degenerative changes with wedging. The soft tissues are intact. The chest reveal a normal-sized heart, normal knob and normal genesis. There are some coarse lung changes. There may be some linear atelectasis/density by the left heart border. Since the prior study 05/30/18, the density by the left heart border has become apparent. This most likely represents a focal area of atelectasis. CXR (06/10/18): New pulmonary consolidation medial aspect of the left upper lung zone obscuring aortic arch. No pleural effusion, or pneumothorax seen. No evidence of vascular congestive changes. CXR (06/13/18): Resolving segmental left upper lobe pneumonia. Left lower lobe pneumonia unchanged. CXR (06/14/18): No significant change in left sided infiltrates. CXR (06/18): no changes in infiltrates from prior ASSESSMENT/PLAN: Patient is a 58 year old female with a history of HTN, COPD on 3L of 02, chronic anemia, former smoker, multiple prior COPD exacerbation who presented with shortness of breath due to COPD, exacerbated by septic shock due to acinetobacter #Septic Shock secondary to Pneumonia: growing acinetobacter - CXR - unchanged from yesterday - Sputum culture - Acinetobacter baumanii/haemol. - ID (Dr. Tao) consulted. Recommendations appreciated. - continue minocycline, azithromycin - polymyxin was discontinued #RAOUL on CKD: worsening with a Cr 4.1 BUN 140 -Renal ultrasound shows medical renal disease without evidence of hydronephrosis -Nephrology following, will hold dialysis for family discussion -May be dialyzed today - follow nephro reccs -Monitor Urine output (300cc/24 hours) -bicarbonate drip -Urine sodium is low, follow the rest of urine studies and calculate FeNa -Renal work-up sent -Continue pressors to maintain MAP of 65 #Thrombocytopenia: worsening, platelets now 18 - likely multifactorial, continuing workup - will transfuse platelets today with threshold of < 20K - Pending SPEP, globulin studies, anti-Plt ABs, broad immunologic panels, TFTs - Hold Lovenox due to possibility of HIT - Hematology (Dr. Covington) consulted. Recommendations appreciated. #Acute Respiratory Distress Syndrome: unchanged from yesterday, not improving - Patient intubated on norepinephrine at a rate of 15, vasopressin not running - Solu-medrol 80 mg IV q6 - Duonebs q4 STA - Daliresp 500mcg GT #Acute on Chronic COPD exacerbation : clinically stable, intubated and sedated - CXR unchanged from yesterday - Pulmonary Consulted. Recs appreciated - continue solumedrol 80 q6 - Duonebs q4h - Albuterol PRN - Daliresp (500mcg daily) - Pt reported allergy to symbicort. #Microcytic Anemia: Hgb stable at 7.7 - Continue Fe supplements and folate - will trend CBC, transfuse with Hgb<7 #Hyperkalemia: resolving, potassium 5.1 today #Hypertension - Hypotensive today. Hold Cardizem 30mg q6h - Add Cardizem IV PRN for hypertension/tachycardia - IV fluids given. - Monitor BP closely #FEN - IV bicarb @ 75ml/hr - routine bmp monitoring - NG feeds #Prophylaxis - Hold Lovenox for now. Patient has low platelet count. #Disposition - Continue to monitor in ICU - will need conversation about goals of care with family Visit type - Emergency Visit Emergency Visit: Yes ED Registration Date: 05/27/18 Care time: The patient presented to the Emergency Department on the above date and was hospitalized for further evaluation of their emergent condition. - New Patient This patient is new to me today: Yes Date on this admission: 06/18/18 - Critical Care Critical Care patient: Yes Total Critical Care Time (in minutes): 35 Critical Care Statement: The care of this patient involved high complexity decision making to prevent further life threatening deterioration of the patient 's condition and/or to evaluate & treat vital organ system(s) failure or risk of failure.
[2018-06-18 08:41] LABS: ARTERIAL BLD GAS O2 SATURATION 96.8 % (90-98.9); ARTERIAL BLOOD GAS BASE EXCESS -6.3 meq/l (-2-2); ARTERIAL BLOOD GAS PCO2 51.8 mmHg (35-45); ARTERIAL BLOOD GAS PO2 96.2 mmHg (80-100)
[2018-06-18 09:08] LABS: ALLENS TEST POSITIVE
--- NOTE | 2018-06-18 09:08 | PN ---
Physical Exam: SUBJECTIVE: Patient seen and examined at bedside. Vented, sedated. Overnight, managed on propofol, fentanyl, levo, sodium bicarb gtt. Family attempted to cut ring from pt's finger, cutting skin. Today, pt with increased secretions. Unable to obtain ROS d/t sedation. OBJECTIVE: R IJ placed 06/15/18 vent settings: a/c RR TV 300/02 35/ PEEP 8/RR 22 Levo gtt 15 mcg/min propofol gtt 25 mcg/min fentanyl gtt 75 mcg/min sodium bicarb gtt Vital Signs Period Temp Pulse Resp BP Sys/Echevarria Pulse Ox Last 24 Hr 96.6 F-98.0 F 77-114 19-24 85-131/44-61 95-99 GENERAL: The patient is vented and sedated. HEAD: Normal with no signs of trauma. EYES: PERRL. ENT: Ears normal, nares patent. +petechiae lower lip NECK: Trachea midline LUNGS: +scattered rhonchi b/l HEART: Regular rate and rhythm, S1, S2 without murmur, rub or gallop. ABDOMEN: Soft, nontender, nondistended EXTREMITIES: 2+ pt pulses, warm, well-perfused, edematous upper extremities. NEUROLOGICAL: unable to assess as pt sedated Laboratory Results 06/18/18 06/18/18 06/18/18 05:30 05:30 06:00 WBC 13.0 H Hgb 7.7 L Hct 24.0 L Plt Count 18 L* D ABG pH 7.22 L* ABG pCO2 at Pt Temp 51.8 H ABG pO2 at Pt Temp 96.2 D ABG HCO3 20.6 L ABG O2 Content 11.5 L Sodium 129 L Potassium 5.1 Chloride 88 L BUN 140 H* Creatinine 4.1 H Creat Clearance w eGFR 11.14 Random Glucose 132 H Calcium 7.3 L Phosphorus 10.2 H* Total Protein 3.3 L Albumin 1.1 L Active Medications Generic Name Dose Route Start Last Admin Trade Name Freq PRN Reason Stop Dose Admin Acetaminophen 650 mg 06/12/18 17:35 06/13/18 01:30 Tylenol - PO 650 mg Q6H PRN Administration PAIN LEVEL 6-10 Albuterol Sulfate 1 amp 06/15/18 14:56 06/18/18 04:40 Ventolin 0.083% Nebulizer Soln - NEB 1 amp Q1H PRN Administration SHORT OF BREATH/WHEEZING Albuterol/Ipratropium 1 amp 06/16/18 14:00 06/18/18 06:01 Duoneb - NEB 1 amp Q4HPO ZACHARY Administration Chlorhexidine Gluconate 1 applic 06/12/18 22:00 06/17/18 22:26 Hibiclens For Decolonization - TP 1 applic HS ZACHARY Administration Diltiazem HCl 30 mg 06/12/18 18:00 06/18/18 06:27 Cardizem - PO Not Given Q6HPO ZACHARY Diltiazem HCl 10 mg 06/14/18 13:33 06/14/18 15:34 Cardizem Injection - IVPUSH 10 mg Q4H PRN Administration TACHYCARDIA Ergocalciferol 50,000 unit 06/15/18 10:00 06/15/18 10:59 Drisdol - PO Not Given Q7D@1000 ZACHARY Ferrous Sulfate 300 mg 06/16/18 10:00 06/17/18 10:28 Feosol GT 300 mg DAILY ZACHARY Administration Folic Acid 1 mg 06/13/18 10:00 06/17/18 10:29 Folic Acid - PO 1 mg DAILY ZACHARY Administration Propofol 1,000,000 mcg in 100 mls @ 1.935 mls/hr 06/15/18 01:45 06/18/18 04: 42 Diprivan - IVPB 15 mcg/kg/min TITR ZACHARY 5.805 mls/hr Administration Protocol 5 MCG/KG/MIN Fentanyl 500 mcg/ Dextrose 100 mls @ 10 mls/hr 06/15/18 01:45 06/18/18 04:42 IVPB 75 mcg/hr TITR ZACHARY 15 mls/hr Protocol 50 MCG/HR Azithromycin 500 mg/ Dextrose 250 mls @ 250 mls/hr 06/15/18 14:30 06/17/18 10 :28 IVPB 250 mls/hr DAILY ZACHARY Administration Minocycline HCl 100 mg/ 100 mls @ 100 mls/hr 06/17/18 15:00 06/18/18 04:00 Dextrose IVPB 100 mls/hr Q12H ZACHARY Administration Norepinephrine Bitartrate 8, 500 mls @ 37.5 mls/hr 06/17/18 10:47 06/17/18 19 :30 000 mcg/ Dextrose IV 15 mcg/min TITR ZACHARY 56.25 mls/hr Titration Protocol 10 MCG/MIN Sodium Bicarbonate 75 meq/ 1,075 mls @ 75 mls/hr 06/17/18 15:45 06/18/18 06: 27 Sodium Chloride IV Not Given Q14H ZACHARY Methylprednisolone Sodium Succinate 80 mg 06/17/18 10:49 06/18/18 03:35 Solu-Medrol - IVPUSH 80 mg Q6H-IV ZACHARY Administration Montelukast Sodium 10 mg 06/12/18 22:00 06/17/18 22:26 Singulair - PO 10 mg HS ZACHARY Administration Polyethylene Glycol 17 gm 06/12/18 17:35 Miralax (For Daily Use) - PO DAILY PRN CONSTIPATION Ranitidine HCl 150 mg 06/16/18 11:30 06/17/18 22:26 Zantac Oral Solution - GT 150 mg BID ZACHARY Administration Roflumilast 500 mcg 06/13/18 10:00 06/17/18 10:23 Daliresp - PO Not Given DAILY ZACHARY ASSESSMENT/PLAN: 58 y/o F w/PMH COPD (on home O2 3L), chronic anemia, HTN initially admitted to [facility] for COPD exacerbation, hospital course complicated by HAP, progressed to ARDS, now intubated in ICU. PULM #ARDS and septic shock 2/2 HAP -still requiring pressor, sedation, vent support -vent a/c: TV 300, Rate 22, Peak flow 80, PEEP 8, FiO2 35% -propofol gtt 25 mcg/min, fentanyl gtt 75 mcg/min -levophed 15 mcg/min; maintain MAP >65. if >15 levo required, will add 2nd agent (vaso) -if needed, will escalate to hydrocortisone 100mg PO q8 and fludro PO mg 50qD -continue to follow ABG. if pH<7.2 will need to adjust vent settings. -solumedrol 80mg IV q6 - for bronchospasm. will hold if 2nd pressor added -duonebs standing q4, daliresp GT -scopalamine TD for increased secretions ID #HAP 2/2 acinetobacter -repeat sputum Cx 06/15 +acinetobacter -continue minocycline/zithromax -hold polymyxin for now; when in use, IVF needed. -ID on board RENAL #ARF 2/2 septic shock -Cr 4.1, elevated phosphorus - will need dialysis -d/w proxy () and family - would like everything to be done, including hemodialysis. risks and benefits explained. family expressed verbal understanding. consent signed and placed in chart. -for shiley access, hemodialysis once platelets improve -continue sodium bicarb gtt #hyponatremia likely 2/2 increased free water -flushes decreased to 10ml/hr from 20 -will continue to monitor -no need for free water at this time HEME #thrombocytopenia 2/2 septic shock, zosyn -platelets 18k this AM, worsened -DIC unlikely given elevated fibrinogen per heme -currently receiving 1u platelets -pending SPEP, globulin studies, anti-Plt ABs, broad immunologic panels, TFTs -a/c held; on SCD's -f/u repeat CBC this afternoon #Anemia -folate and iron GT -will continue to monitor CBC -transfusion threshhold: Hb< 7 #F/E/N -currently not on IVF -continue to follow lytes -nepro GT as tolerated #PPX - DVT: SCDs - GI: Zantac GT #code status -full code #Dispo -continued ICU management -prognosis guarded Visit type - Emergency Visit Emergency Visit: No - New Patient This patient is new to me today: No - Critical Care Critical Care patient: Yes Total Critical Care Time (in minutes): 45 Critical Care Statement: The care of this patient involved high complexity decision making to prevent further life threatening deterioration of the patient 's condition and/or to evaluate & treat vital organ system(s) failure or risk of failure. - Discharge Referral Referred to [facility] Med P.C.: No
[2018-06-18 09:12] LABS: ARTERIAL BLOOD GAS pH 7.22 (7.35-7.45)
[2018-06-18] MEDS ORDERED: POLYMYXIN B SULFATE 500,000 UNIT VIAL IVPB ONE (10:00)
[2018-06-18] MEDS ORDERED: WATER IVPB ONE (10:00)
[2018-06-18] MEDS ORDERED: POLYMYXIN B SULFATE IVPB ONE (10:00)
[2018-06-18] MEDS ORDERED: DEXTROSE 5% IVPB ONE (10:00)
--- NOTE | 2018-06-18 10:12 | PN ---
Teaching Attending Note Name of Resident: Cheryle Pitts ATTENDING PHYSICIAN STATEMENT I saw and evaluated the patient. I reviewed the resident's note and discussed the case with the resident. I agree with the resident's findings and plan as documented. SUBJECTIVE: Pt seen and examined in the ICU. Remains intubated, sedated. Copious secretions per nursing. On levophed gtt, CVP 9 this AM. Ppeak mid 40s, Pplat mid 20s. OBJECTIVE: Vital Signs Period Temp Pulse Resp BP Sys/Echevarria Pulse Ox Last 24 Hr 96.6 F-98.0 F 77-114 19-24 85-131/44-61 95-99 Intake & Output 06/15/18 06/16/18 06/17/18 06/18/18 23:59 23:59 23:59 23:59 Intake Total 3183.5 4278 4755.6 3484 Output Total 524 788 2702 600 Balance 2983.5 3818 2805.6 2884 Weight 63.321 kg 69.445 kg 73.119 kg 76.345 kg Gen: intubated, sedated Heart: RRR Lung: bilateral rhonchi Abd: soft, nontender Ext: + edema CBC, BMP 06/18/18 05:30 06/18/18 05:30 Active Medications Acetaminophen (Tylenol -) 650 mg PO Q6H PRN PRN Reason: PAIN LEVEL 6-10 Last Admin: 06/13/18 01:30 Dose: 650 mg Albuterol Sulfate (Ventolin 0.083% Nebulizer Soln -) 1 amp NEB Q1H PRN PRN Reason: SHORT OF BREATH/WHEEZING Last Admin: 06/18/18 04:40 Dose: 1 amp Albuterol/Ipratropium (Duoneb -) 1 amp NEB Q4HPO ZACHARY Last Admin: 06/18/18 06:01 Dose: 1 amp Chlorhexidine Gluconate (Hibiclens For Decolonization -) 1 applic TP HS ZACHARY Last Admin: 06/17/18 22:26 Dose: 1 applic Diltiazem HCl (Cardizem -) 30 mg PO Q6HPO ZACHARY Last Admin: 06/18/18 06:27 Dose: Not Given Diltiazem HCl (Cardizem Injection -) 10 mg IVPUSH Q4H PRN PRN Reason: TACHYCARDIA Last Admin: 06/14/18 15:34 Dose: 10 mg Ergocalciferol (Drisdol -) 50,000 unit PO Q7D@1000 ZACHARY Last Admin: 06/15/18 10:59 Dose: Not Given Ferrous Sulfate (Feosol) 300 mg GT DAILY ZACHARY Last Admin: 06/17/18 10:28 Dose: 300 mg Folic Acid (Folic Acid -) 1 mg PO DAILY ZACHARY Last Admin: 06/17/18 10:29 Dose: 1 mg Propofol (Diprivan -) 1,000,000 mcg in 100 mls @ 1.935 mls/hr IVPB TITR ZACHARY; Protocol Last Admin: 06/18/18 04:42 Dose: 15 mcg/kg/min, 5.805 mls/hr Fentanyl 500 mcg/ Dextrose 100 mls @ 10 mls/hr IVPB TITR ZACHARY; Protocol Last Admin: 06/18/18 04:42 Dose: 75 mcg/hr, 15 mls/hr Azithromycin 500 mg/ Dextrose 250 mls @ 250 mls/hr IVPB DAILY ZACHARY Last Admin: 06/17/18 10:28 Dose: 250 mls/hr Minocycline HCl 100 mg/ (Dextrose) 100 mls @ 100 mls/hr IVPB Q12H ZACHARY Last Admin: 06/18/18 04:00 Dose: 100 mls/hr Norepinephrine Bitartrate 8, (000 mcg/ Dextrose) 500 mls @ 37.5 mls/hr IV TITR ZACHARY; Protocol Last Titration: 06/17/18 19:30 Dose: 15 mcg/min, 56.25 mls/hr Sodium Bicarbonate 75 meq/ (Sodium Chloride) 1,075 mls @ 75 mls/hr IV Q14H ZAHCARY Last Admin: 06/18/18 06:27 Dose: Not Given Methylprednisolone Sodium Succinate (Solu-Medrol -) 80 mg IVPUSH Q6H-IV ZACHARY Last Admin: 06/18/18 03:35 Dose: 80 mg Montelukast Sodium (Singulair -) 10 mg PO HS [facility] Last Admin: 06/17/18 22:26 Dose: 10 mg Polyethylene Glycol (Miralax (For Daily Use) -) 17 gm PO DAILY PRN PRN Reason: CONSTIPATION Ranitidine HCl (Zantac Oral Solution -) 150 mg GT BID [facility] Last Admin: 06/17/18 22:26 Dose: 150 mg Roflumilast (Daliresp -) 500 mcg PO DAILY ZACHARY Last Admin: 06/17/18 10:23 Dose: Not Given ASSESSMENT AND PLAN: Acute on Chronic Hypoxic and Hypercapneic Respiratory Failure Pneumonia Septic Shock Acute COPD/Bronchiectasis Exacerbation ARDS HTN - continue antibiotics per ID - IVF to keep CVP 8-12 - titrate pressors to maintain MAP >65 - monitor urine output, creatinine - may need HD if family agrees - inhaled bronchodilators standing and PRN - continue medrol at current dose - monitor Ppeak, Pplat - low tidal volume ventilation 6cc/kg/IBW - keep Pplat <30 - taper Fio2 to keep Spo2 >90% - monitor ABG - keep sedated for vent synchrony at this time - enteral feeds as tolerated - daily sedation vacations to assess mental status - DVT/GI prophylaxis - continue ICU monitoring critical care time spent in reviewing chart, evaluating patient and formulating plan 35 min
[2018-06-18] MEDS ORDERED: NOREPINEPHRINE BITARTRATE 8,000 MCG in SODIUM CHLORIDE 0.45% 992 ML IV SCH (10:15)
[2018-06-18] MEDS: FERROUS SO4 300 MG/5 ML ORAL SOLN UNIT DOSE CUPS GT SCH (10:16)
[2018-06-18] MEDS: RANITIDINE HCL 150 MG/10 ML UNIT-DOSE GT SCH ×2 (10:16→22:17)
[2018-06-18] MEDS: FOLIC ACID 1 MG TABLET (FP) PO SCH (10:16)
[2018-06-18] MEDS ORDERED: NOREPINEPHRINE BITARTRATE 4 MG/4 ML ML IV ONE ×2 (10:54→20:41)
[2018-06-18] MEDS: SCOPOLAMINE HYDROBROMIDE 1 PATCH PATCH.TD72 TD SCH (11:00)
--- NOTE | 2018-06-18 11:34 | PN ---
Teaching Attending Note Name of Resident: Mario Stauffer ATTENDING PHYSICIAN STATEMENT I saw and evaluated the patient. I reviewed the resident's note and discussed the case with the resident. I agree with the resident's findings and plan as documented with exceptions below. SUBJECTIVE: Patient seen and examined. Intubated and sedated. OBJECTIVE: Vital Signs Period Temp Pulse Resp BP Sys/Echevarria Pulse Ox Last 24 Hr 96.6 F-98.0 F 77-114 18-24 103-131/44-73 95-96 Intake & Output 06/15/18 06/16/18 06/17/18 06/18/18 23:59 23:59 23:59 23:59 Intake Total 3183.5 4278 4755.6 3484 Output Total 861 961 3805 600 Balance 2983.5 3818 2805.6 2884 Weight 139 lb 9.6 oz 153 lb 1.6 oz 161 lb 3.2 oz 168 lb 5 oz General: intubated, sedated in bed Chest: decreased breath sounds, scattered wheezing Abdomen:soft, increased distension, hypoactive bowel sounds Extremities: no edema Active Medications Acetaminophen (Tylenol -) 650 mg PO Q6H PRN PRN Reason: PAIN LEVEL 6-10 Last Admin: 06/13/18 01:30 Dose: 650 mg Albuterol Sulfate (Ventolin 0.083% Nebulizer Soln -) 1 amp NEB Q1H PRN PRN Reason: SHORT OF BREATH/WHEEZING Last Admin: 06/18/18 04:40 Dose: 1 amp Albuterol/Ipratropium (Duoneb -) 1 amp NEB Q4HPO [facility] Last Admin: 06/18/18 06:01 Dose: 1 amp Chlorhexidine Gluconate (Hibiclens For Decolonization -) 1 applic TP HS [facility] Last Admin: 06/17/18 22:26 Dose: 1 applic Diltiazem HCl (Cardizem -) 30 mg PO Q6HPO [facility] Last Admin: 06/18/18 06:27 Dose: Not Given Diltiazem HCl (Cardizem Injection -) 10 mg IVPUSH Q4H PRN PRN Reason: TACHYCARDIA Last Admin: 06/14/18 15:34 Dose: 10 mg Ergocalciferol (Drisdol -) 50,000 unit PO Q7D@1000 [facility] Last Admin: 06/15/18 10:59 Dose: Not Given Ferrous Sulfate (Feosol) 300 mg GT DAILY [facility] Last Admin: 06/18/18 10:16 Dose: 300 mg Folic Acid (Folic Acid -) 1 mg PO DAILY [facility] Last Admin: 06/18/18 10:16 Dose: 1 mg Propofol (Diprivan -) 1,000,000 mcg in 100 mls @ 1.935 mls/hr IVPB TITR [facility]; Protocol Last Admin: 06/18/18 04:42 Dose: 15 mcg/kg/min, 5.805 mls/hr Fentanyl 500 mcg/ Dextrose 100 mls @ 10 mls/hr IVPB TITR [facility]; Protocol Last Admin: 06/18/18 04:42 Dose: 75 mcg/hr, 15 mls/hr Azithromycin 500 mg/ Dextrose 250 mls @ 250 mls/hr IVPB DAILY [facility] Last Admin: 06/17/18 10:28 Dose: 250 mls/hr Minocycline HCl 100 mg/ (Dextrose) 100 mls @ 100 mls/hr IVPB Q12H [facility] Last Admin: 06/18/18 04:00 Dose: 100 mls/hr Sodium Bicarbonate 75 meq/ (Sodium Chloride) 1,075 mls @ 75 mls/hr IV Q14H [facility] Last Admin: 06/18/18 06:27 Dose: Not Given Norepinephrine Bitartrate 8, (000 mcg/ Sodium Chloride) 1,000 mls @ 112.5 mls/ hr IV TITR [facility]; Protocol Methylprednisolone Sodium Succinate (Solu-Medrol -) 80 mg IVPUSH Q6H-IV [facility] Last Admin: 06/18/18 10:16 Dose: 80 mg Montelukast Sodium (Singulair -) 10 mg PO HS [facility] Last Admin: 06/17/18 22:26 Dose: 10 mg Polyethylene Glycol (Miralax (For Daily Use) -) 17 gm PO DAILY PRN PRN Reason: CONSTIPATION Ranitidine HCl (Zantac Oral Solution -) 150 mg GT BID [facility] Last Admin: 06/18/18 10:16 Dose: 150 mg Roflumilast (Daliresp -) 500 mcg PO DAILY [facility] Last Admin: 06/17/18 10:23 Dose: Not Given Scopolamine HBr (Transderm-Scop -) 1 patch TD Q72H [facility] Laboratory Results - last 24 hr 06/15/18 06/17/18 06/17/18 12:10 05:30 05:30 WBC RBC Hgb Hct MCV MCH MCHC RDW Plt Count MPV Absolute Neuts (auto) Total Counted Neutrophils % Neutrophils % (Manual) 93.0 H Band Neutrophils % 5.0 Lymphocytes % Lymphocytes % (Manual) 2.0 L D Monocytes % Monocytes % (Manual) 0 L D Eosinophils % Eosinophils % (Manual) 0.0 Basophils % Basophils % (Manual) 0.0 Myelocytes % (Man) 0 Promyelocytes % (Man) 0 Blast Cells % (Manual) 0 Nucleated RBC % 0 Metamyelocytes 0 Hypochromia 1+ Platelet Estimate Decreased Platelet Comment Polychromasia 1+ Poikilocytosis 1+ Anisocytosis 0 Microcytosis 1+ Macrocytosis 0 Target Cells Lopez Cells 1+ PT with INR INR Fibrin Degrad Products 5 H Anticoagulation Therapy Puncture Site ABG pH ABG pCO2 at Pt Temp ABG pO2 at Pt Temp ABG HCO3 ABG O2 Sat (Measured) ABG O2 Content ABG Base Excess Timmy Test O2 Delivery Device Oxygen Flow Rate Vent Mode Vent Rate Mechanical Rate PEEP Pressure Support Vent Sodium Potassium Chloride Carbon Dioxide Anion Gap BUN Creatinine Creat Clearance w eGFR Random Glucose Calcium Phosphorus Magnesium Total Bilirubin AST ALT Alkaline Phosphatase Total Protein Albumin Hepatitis A Ab Total Negative Hep Bs Antigen Negative Hep Bs Antibody Non reactive Hep B Core Total Ab Negative Blood Type Antibody Screen 06/17/18 06/17/18 06/17/18 12:10 16:15 19:30 WBC 12.8 H RBC 3.56 L Hgb 7.9 L Hct 24.9 L MCV 70.1 L MCH 22.1 L MCHC 31.6 L RDW 16.1 H Plt Count 35 L* MPV 11.1 D Absolute Neuts (auto) 12.5 H Total Counted 100 Neutrophils % No Result Required. Neutrophils % (Manual) 92.0 H Band Neutrophils % 4.0 Lymphocytes % No Result Required. Lymphocytes % (Manual) 2.0 L Monocytes % Monocytes % (Manual) 2 L D Eosinophils % Eosinophils % (Manual) Basophils % Basophils % (Manual) Myelocytes % (Man) Promyelocytes % (Man) Blast Cells % (Manual) Nucleated RBC % 0 Metamyelocytes Hypochromia 2+ Platelet Estimate Decreased Platelet Comment No clumping noted Polychromasia 1+ Poikilocytosis Anisocytosis Microcytosis Macrocytosis Target Cells 1+ [place] Cells PT with INR INR Fibrin Degrad Products Anticoagulation Therapy Puncture Site Right radial ABG pH 7.26 L ABG pCO2 at Pt Temp 46.5 H ABG pO2 at Pt Temp 137.0 H D ABG HCO3 20.3 L ABG O2 Sat (Measured) 99.3 H ABG O2 Content 10.9 L ABG Base Excess -5.8 L Timmy Test Positive O2 Delivery Device Vent Oxygen Flow Rate 40% Vent Mode Vent Rate 22 Mechanical Rate Yes PEEP 8.0 Pressure Support Vent 300 Sodium 132 L Potassium 5.2 H Chloride 92 L Carbon Dioxide 23 Anion Gap 17 H BUN 137 H* Creatinine 3.9 H Creat Clearance w eGFR 11.80 Random Glucose 178 H Calcium 7.6 L Phosphorus Magnesium Total Bilirubin AST ALT Alkaline Phosphatase Total Protein Albumin Hepatitis A Ab Total Hep Bs Antigen Hep Bs Antibody Hep B Core Total Ab Blood Type Antibody Screen 06/18/18 06/18/18 06/18/18 05:30 05:30 05:30 WBC 13.0 H RBC 3.51 L Hgb 7.7 L Hct 24.0 L MCV 68.5 L MCH 21.8 L MCHC 31.8 L RDW 16.3 H Plt Count 18 L* D MPV 10.8 Absolute Neuts (auto) 12.4 H Total Counted Neutrophils % 95.7 H Neutrophils % (Manual) Band Neutrophils % Lymphocytes % 3.4 L Lymphocytes % (Manual) Monocytes % 0.8 L Monocytes % (Manual) Eosinophils % 0.0 Eosinophils % (Manual) Basophils % 0.1 Basophils % (Manual) Myelocytes % (Man) Promyelocytes % (Man) Blast Cells % (Manual) Nucleated RBC % 0 Metamyelocytes Hypochromia Platelet Estimate Platelet Comment Polychromasia Poikilocytosis Anisocytosis Microcytosis Macrocytosis Target Cells Lopez Cells PT with INR 12.20 INR 1.03 Fibrin Degrad Products Anticoagulation Therapy Puncture Site ABG pH ABG pCO2 at Pt Temp ABG pO2 at Pt Temp ABG HCO3 ABG O2 Sat (Measured) ABG O2 Content ABG Base Excess Timmy Test O2 Delivery Device Oxygen Flow Rate Vent Mode Vent Rate Mechanical Rate PEEP Pressure Support Vent Sodium 129 L Potassium 5.1 Chloride 88 L Carbon Dioxide 22 Anion Gap 18 H BUN 140 H* Creatinine 4.1 H Creat Clearance w eGFR 11.14 Random Glucose 132 H Calcium 7.3 L Phosphorus 10.2 H* Magnesium 2.1 Total Bilirubin 0.3 AST 17 ALT 24 Alkaline Phosphatase 63 Total Protein 3.3 L Albumin 1.1 L Hepatitis A Ab Total Hep Bs Antigen Hep Bs Antibody Hep B Core Total Ab Blood Type Antibody Screen 06/18/18 06/18/18 06:00 08:00 WBC RBC Hgb Hct MCV MCH MCHC RDW Plt Count MPV Absolute Neuts (auto) Total Counted Neutrophils % Neutrophils % (Manual) Band Neutrophils % Lymphocytes % Lymphocytes % (Manual) Monocytes % Monocytes % (Manual) Eosinophils % Eosinophils % (Manual) Basophils % Basophils % (Manual) Myelocytes % (Man) Promyelocytes % (Man) Blast Cells % (Manual) Nucleated RBC % Metamyelocytes Hypochromia Platelet Estimate Platelet Comment Polychromasia Poikilocytosis Anisocytosis Microcytosis Macrocytosis Target Cells Lopez Cells PT with INR INR Fibrin Degrad Products Anticoagulation Therapy No Result Required. Puncture Site Right radial ABG pH 7.22 L* ABG pCO2 at Pt Temp 51.8 H ABG pO2 at Pt Temp 96.2 D ABG HCO3 20.6 L ABG O2 Sat (Measured) 96.8 ABG O2 Content 11.5 L ABG Base Excess -6.3 L Timmy Test Positive O2 Delivery Device Mech vent Oxygen Flow Rate 35% Vent Mode No Result Required. Vent Rate 22 Mechanical Rate Yes PEEP 8.0 Pressure Support Vent 300 Sodium Potassium Chloride Carbon Dioxide Anion Gap BUN Creatinine Creat Clearance w eGFR Random Glucose Calcium Phosphorus Magnesium Total Bilirubin AST ALT Alkaline Phosphatase Total Protein Albumin Hepatitis A Ab Total Hep Bs Antigen Hep Bs Antibody Hep B Core Total Ab Blood Type B POSITIVE Antibody Screen Negative Microbiology 06/15/18 09:30 Blood - Peripheral Venous Blood Culture - Preliminary NO GROWTH OBTAINED AFTER 72 HOURS, INCUBATION TO CONTINUE FOR 2 DAYS. 06/15/18 09:32 Blood - Peripheral Venous Blood Culture - Preliminary NO GROWTH OBTAINED AFTER 72 HOURS, INCUBATION TO CONTINUE FOR 2 DAYS. 06/15/18 04:00 Sputum - Endotrachea Suction/Ventilator Gram Stain - Final 06/15/18 04:00 Sputum - Endotrachea Suction/Ventilator Sputum Culture - Final Acinetobacter Baumannii/Haemol 06/11/18 17:49 Sputum - Expectorated Gram Stain - Final 06/11/18 17:49 Sputum - Expectorated Sputum Culture - Preliminary Acinetobacter Baumannii/Haemol 06/10/18 18:00 Blood - Peripheral Venous Blood Culture - Final NO GROWTH AFTER 5 DAYS INCUBATION 06/10/18 17:00 Blood - Peripheral Venous Blood Culture - Final NO GROWTH AFTER 5 DAYS INCUBATION 06/12/18 15:00 Stool Clostridium difficile Antigen (BENITO) - Final 06/12/18 15:00 Stool Clostridium difficile Toxin Assay - Final 05/27/18 17:42 Blood - Peripheral Venous Blood Culture - Final NO GROWTH AFTER 5 DAYS INCUBATION 05/27/18 17:42 Blood - Peripheral Venous Blood Culture - Final NO GROWTH AFTER 5 DAYS INCUBATION CXR - worsening left lung PNA ASSESSMENT AND PLAN: 58yo F with PMH HTn, COPD on home O2 (3L NC) and anemia presented with dyspnea and cough on 05/27/2018, initially treated for COPD exac, course complicated by worsening respiratory status, new PNA, transferred to ICU on 06/12, now on Bipap -Acute on chronic hypercapnic respiratory failure, r/o ARDS -Septic shock due to CHIKI/LLL HAP with left pleural effusion, likely parapneumonic, ?empyema, suspected Acinetobacter PNA with multiorgan failure -Acute on chronic COPD/Bronchiectasis exacerbation -Acute thrombocytopenia, suspect from severe sepsis/suspected ARDS -Hypernatremia/hypercholoremia -Uncontrolled HTN, likely from respiratory distress, now hypotensive -RAOUL on CKD, likely from septic shock/hypoperfusion -Normocytic anemia Plan: Overnight events noted. Vent management per ICU. Pressors for MAP >65. IVF with monitoring of respiratory status. ID input noted. Abx changed to Polymyxin B/Tigecycline/Azithromycin day 4, renal function worsen , polymyxin B on hold. Repeat sputum cultures noted. Enteral feeds. Free water flushes. Not tolerating feeds > 1L residual. Solumedrol. Nebs. Hematology input noted. Transfuse platelets. Follow up HIT panel. Fibrinogen not consistent with DIC. Renal consult noted, renal/bladder US noted. Urology input for daily insertion. Worsening oliguric renal failure. HD per renal if family agrees Off anti-hypertensives. DVTPPX SCDs Dispo continue MICU level of monitoring. Septic shock now with multiorgan failure, Prognosis poor, palliative consult noted, continue to address overall goals of care. Progressive clinical deterioration now with worsening acidosis, renal failure, intolerance to feeds. The care of this patient involved high complexity decision making to prevent further life threatening deterioration of the patient's condition and/or to evaluate & treat vital organ system(s) failure or risk of failure. 45 minutes
[2018-06-18] MEDS: ROFLUMILAST 500 MCG TABLET PO SCH (12:00)
[2018-06-18] MEDS ORDERED: AZITHROMYCIN IVPB 250 ML IVPB SCH (12:08)
--- NOTE | 2018-06-18 12:27 | PN ---
Progress Note, Physician History of Present Illness: Sedated on ventilator Hypotensive on pressors Afebrile WBC remains elevated Worsening thrombocytopenia/ azotemia - Current Medication List Current Medications: Active Medications Acetaminophen (Tylenol -) 650 mg PO Q6H PRN PRN Reason: PAIN LEVEL 6-10 Last Admin: 06/13/18 01:30 Dose: 650 mg Albuterol Sulfate (Ventolin 0.083% Nebulizer Soln -) 1 amp NEB Q1H PRN PRN Reason: SHORT OF BREATH/WHEEZING Last Admin: 06/18/18 04:40 Dose: 1 amp Albuterol/Ipratropium (Duoneb -) 1 amp NEB Q4HPO [facility] Last Admin: 06/18/18 06:01 Dose: 1 amp Chlorhexidine Gluconate (Hibiclens For Decolonization -) 1 applic TP HS [facility] Last Admin: 06/17/18 22:26 Dose: 1 applic Diltiazem HCl (Cardizem -) 30 mg PO Q6HPO [facility] Last Admin: 06/18/18 11:36 Dose: 30 mg Diltiazem HCl (Cardizem Injection -) 10 mg IVPUSH Q4H PRN PRN Reason: TACHYCARDIA Last Admin: 06/14/18 15:34 Dose: 10 mg Ergocalciferol (Drisdol -) 50,000 unit PO Q7D@1000 [facility] Last Admin: 06/15/18 10:59 Dose: Not Given Ferrous Sulfate (Feosol) 300 mg GT DAILY [facility] Last Admin: 06/18/18 10:16 Dose: 300 mg Folic Acid (Folic Acid -) 1 mg PO DAILY [facility] Last Admin: 06/18/18 10:16 Dose: 1 mg Propofol (Diprivan -) 1,000,000 mcg in 100 mls @ 1.935 mls/hr IVPB TITR [facility]; Protocol Last Admin: 06/18/18 04:42 Dose: 15 mcg/kg/min, 5.805 mls/hr Fentanyl 500 mcg/ Dextrose 100 mls @ 10 mls/hr IVPB TITR [facility]; Protocol Last Titration: 06/18/18 10:30 Dose: 50 mcg/hr, 10 mls/hr Minocycline HCl 100 mg/ (Dextrose) 100 mls @ 100 mls/hr IVPB Q12H [facility] Last Admin: 06/18/18 04:00 Dose: 100 mls/hr Sodium Bicarbonate 75 meq/ (Sodium Chloride) 1,075 mls @ 75 mls/hr IV Q14H [facility] Last Admin: 06/18/18 06:27 Dose: Not Given Norepinephrine Bitartrate 8, (000 mcg/ Sodium Chloride) 1,000 mls @ 112.5 mls/ hr IV TITR [facility]; Protocol Azithromycin (Zithromax 500mg Ivpb (Pre-Docked)) 250 mls @ 250 mls/hr IVPB DAILY [facility] Stop: 06/21/18 10:59 Methylprednisolone Sodium Succinate (Solu-Medrol -) 80 mg IVPUSH Q6H-IV [facility] Last Admin: 06/18/18 10:16 Dose: 80 mg Montelukast Sodium (Singulair -) 10 mg PO HS [facility] Last Admin: 06/17/18 22:26 Dose: 10 mg Polyethylene Glycol (Miralax (For Daily Use) -) 17 gm PO DAILY PRN PRN Reason: CONSTIPATION Ranitidine HCl (Zantac Oral Solution -) 150 mg GT BID [facility] Last Admin: 06/18/18 10:16 Dose: 150 mg Roflumilast (Daliresp -) 500 mcg PO DAILY [facility] Last Admin: 06/17/18 10:23 Dose: Not Given Scopolamine HBr (Transderm-Scop -) 1 patch TD Q72H [facility] - Objective Vital Signs: Vital Signs Temperature 97.9 F 06/18/18 10:00 Pulse Rate 108 H 06/18/18 10:00 Respiratory Rate 24 H 06/18/18 12:15 Blood Pressure 122/73 06/18/18 10:00 O2 Sat by Pulse Oximetry (%) 96 06/17/18 20:07 Constitutional: Yes: No Distress Cardiovascular: Yes: Regular Rate and Rhythm, Tachycardia, S1, S2 Respiratory: Yes: Mechanically Ventilated Gastrointestinal: Yes: Normal Bowel Sounds, Soft, Other (distended). No: Tenderness Labs: CBC, BMP 06/18/18 05:30 06/18/18 05:30 INR, PTT INR 1.03 (0.83-1.09) 06/18/18 05:30 Fibrinogen 899.0 mg/dL (238-498) H 06/15/18 12:10 Assessment/Plan Sepsis/ Septic shock Respiratory failure HCAP/MDR Thrombocytopenia Continue zithromax/ minocycline Polymyxin redosed 9/28 Continue ventilatory/ hemodynamic support Transfuse plt Prognosis guarded
--- NOTE | 2018-06-18 12:30 | PN ---
Progress Note (short form) - Note Progress Note: Problems 1. RAOUL 2. CKD 3. respiratory failure requiring intubation 4. sepsis 5. multi drug resistant Acinetobacter 6. copd exacerbation 7. anemia 8. hyperkalemia 9. thrombocytopenia Current Medications Acetaminophen (Tylenol -) 650 mg PO Q6H PRN PRN Reason: PAIN LEVEL 6-10 Last Admin: 06/13/18 01:30 Dose: 650 mg Albuterol Sulfate (Ventolin 0.083% Nebulizer Soln -) 1 amp NEB Q1H PRN PRN Reason: SHORT OF BREATH/WHEEZING Last Admin: 06/18/18 04:40 Dose: 1 amp Albuterol/Ipratropium (Duoneb -) 1 amp NEB Q4HPO [facility] Last Admin: 06/18/18 06:01 Dose: 1 amp Chlorhexidine Gluconate (Hibiclens For Decolonization -) 1 applic TP HS [facility] Last Admin: 06/17/18 22:26 Dose: 1 applic Diltiazem HCl (Cardizem -) 30 mg PO Q6HPO [facility] Last Admin: 06/18/18 11:36 Dose: 30 mg Diltiazem HCl (Cardizem Injection -) 10 mg IVPUSH Q4H PRN PRN Reason: TACHYCARDIA Last Admin: 06/14/18 15:34 Dose: 10 mg Ergocalciferol (Drisdol -) 50,000 unit PO Q7D@1000 [facility] Last Admin: 06/15/18 10:59 Dose: Not Given Ferrous Sulfate (Feosol) 300 mg GT DAILY [facility] Last Admin: 06/18/18 10:16 Dose: 300 mg Folic Acid (Folic Acid -) 1 mg PO DAILY [facility] Last Admin: 06/18/18 10:16 Dose: 1 mg Propofol (Diprivan -) 1,000,000 mcg in 100 mls @ 1.935 mls/hr IVPB TITR [facility]; Protocol Last Admin: 06/18/18 04:42 Dose: 15 mcg/kg/min, 5.805 mls/hr Fentanyl 500 mcg/ Dextrose 100 mls @ 10 mls/hr IVPB TITR [facility]; Protocol Last Titration: 06/18/18 10:30 Dose: 50 mcg/hr, 10 mls/hr Minocycline HCl 100 mg/ (Dextrose) 100 mls @ 100 mls/hr IVPB Q12H [facility] Last Admin: 06/18/18 04:00 Dose: 100 mls/hr Sodium Bicarbonate 75 meq/ (Sodium Chloride) 1,075 mls @ 75 mls/hr IV Q14H [facility] Last Admin: 06/18/18 06:27 Dose: Not Given Norepinephrine Bitartrate 8, (000 mcg/ Sodium Chloride) 1,000 mls @ 112.5 mls/ hr IV TITR [facility]; Protocol Azithromycin (Zithromax 500mg Ivpb (Pre-Docked)) 250 mls @ 250 mls/hr IVPB DAILY [facility] Stop: 06/21/18 10:59 Methylprednisolone Sodium Succinate (Solu-Medrol -) 80 mg IVPUSH Q6H-IV [facility] Last Admin: 06/18/18 10:16 Dose: 80 mg Montelukast Sodium (Singulair -) 10 mg PO HS [facility] Last Admin: 06/17/18 22:26 Dose: 10 mg Polyethylene Glycol (Miralax (For Daily Use) -) 17 gm PO DAILY PRN PRN Reason: CONSTIPATION Ranitidine HCl (Zantac Oral Solution -) 150 mg GT BID [facility] Last Admin: 06/18/18 10:16 Dose: 150 mg Roflumilast (Daliresp -) 500 mcg PO DAILY [facility] Last Admin: 06/17/18 10:23 Dose: Not Given Scopolamine HBr (Transderm-Scop -) 1 patch TD Q72H [facility] Last Vital Signs Temp Pulse Resp BP Pulse Ox 97.9 F 108 H 24 H 122/73 96 06/18/18 10:00 06/18/18 10:00 06/18/18 12:15 06/18/18 10:00 06/17/18 20:07 CBC, BMP 06/18/18 05:30 06/18/18 05:30 IMP- RAOUL Septic shock on pressors acute resp failure on vent pt remain oliguric family consenting to HD- consents obtained for catheter and hemodialysis Plan discussed with housestaff dr fuller insert catheter for hemodialysis - renal function not improving - renal dose meds - cont pressors to a map of 65, may have to titrate - vent support - daily cxr - RAOUL is likely multifactorial - spoke to family at length, pt may need HD if she worsens. I discussed options at length with her . Family will think about it. - discussed with ICU team - prognosis guarded
[2018-06-18] MEDS: AZITHROMYCIN IVPB 250 ML IVPB SCH (12:37)
[2018-06-18] MEDS: AZITHROMYCIN IVPB 500 MG in DEXTROSE 5%-WATER - 250 ML IVPB SCH (12:39)
[2018-06-18] MEDS ORDERED: PT OWN MED DRAWER 7, Y5N ONE (16:29)
[2018-06-18] MEDS ORDERED: VASOPRESSIN 50 UNITS in SODIUM CHLORIDE 97.5 ML IVPB SCH ×2 (16:45→17:20)
[2018-06-18] MEDS: BACITRACIN 15 GM TUBE TOPICAL OINTMENT TP SCH (16:59)
[2018-06-18] MEDS: VASOPRESSIN 50 UNITS in SODIUM CHLORIDE 97.5 ML IVPB SCH (17:15)
[2018-06-18 19:39] LABS: HEMATOCRIT 20.1 % (32.4-45.2); MCH 22.4 pg (25.7-33.7); MCHC 32.8 g/dl (32.0-36.0); MEAN CELL VOLUME 68.3 fl (80-96); MEAN PLT VOLUME 9.1 fl (7.5-11.1); PLATELET COUNT 110 K/MM3 (134-434); RBC 2.94 M/mm3 (3.60-5.2); RDW 15.9 % (11.6-15.6); WHITE BLOOD COUNT 9.8 K/mm3 (4.0-10.0)
[2018-06-18 19:44] LABS: HEMOGLOBIN 6.6 GM/dL (10.7-15.3)
--- NOTE | 2018-06-18 19:54 | PN ---
Progress Note (short form) - Note Progress Note: Repeat CBC this evening returned with Hb 6.6. Will give 1 unit PRBC stat - call placed to blood bank. Platelet count 110. Will f/u post transfusion CBC Cheryle Pitts MD PGY-2 ICU team
[2018-06-18 20:44] LABS: ANISOCYTOSIS 1+; PLATELET ESTIMATE DECREASED
[2018-06-18] MEDS: NOREPINEPHRINE BITARTRATE IV SCH (22:16)
[2018-06-18] MEDS: SODIUM CHLORIDE 0.45% IV SCH (22:16)
[2018-06-18] MEDS: MONTELUKAST NA 10 MG TABLET PO SCH (22:17)
[2018-06-18] MEDS: CHLORHEXIDINE GLUCONATE 4% CLEANSER FOR DECOLONIZATION TP SCH (22:17)
[2018-06-19] MEDS: dilTIAZem HCL 30 MG TABLET (FP) PO SCH ×3 (01:27→12:37)
[2018-06-19] MEDS ORDERED: fentaNYL CITRATE 250 MCG/5 ML VIAL ONE ×3 (01:40→17:39)
[2018-06-19] MEDS: FENTANYL INJECTION 500 MCG in DEXTROSE 5%-WATER - 90 ML IVPB SCH ×2 (01:42→17:47)
[2018-06-19] MEDS: ALBUTEROL SO4 2.5/IPRATROPIUM 0.5 INH SOL 3 ML VIAL.NEB. NEB SCH ×6 (01:58→22:35)
[2018-06-19 02:01] LABS: BASO % 0.3 % (0-2.0); EOS % 0.1 % (0-4.5); HEMOGLOBIN 8.5 GM/dL (10.7-15.3); LYMPH % 2.5 % (8-40); MCH 23.5 pg (25.7-33.7); MCHC 32.6 g/dl (32.0-36.0); MEAN CELL VOLUME 72.1 fl (80-96); MEAN PLT VOLUME 9.7 fl (7.5-11.1); MONO % 0.7 % (3.8-10.2); NEUT % 96.4 % (42.8-82.8); PLATELET COUNT 82 K/MM3 (134-434); RDW 18.6 % (11.6-15.6); WHITE BLOOD COUNT 8.9 K/mm3 (4.0-10.0)
[2018-06-19] MEDS ORDERED: PT OWN MED DRAWER 7, Y5N ONE ×3 (02:33→15:29)
[2018-06-19] MEDS: MINOCYCLINE HCL IVPB SCH ×2 (02:35→15:30)
[2018-06-19] MEDS: WATER IVPB SCH ×2 (02:35→15:30)
[2018-06-19] MEDS: methylPREDNISolone NA SUCC 40 MG/1 ML VIAL IVPUSH SCH ×3 (02:35→17:48)
[2018-06-19] MEDS: PROPOFOL 1,000,000 MCG/100 ML VIAL IVPB SCH (02:35)
[2018-06-19] MEDS: DEXTROSE 5% IVPB SCH ×2 (02:35→15:30)
[2018-06-19] MEDS ORDERED: VASOPRESSIN 20 UNITS/ML VIAL IV ONE (02:38)
[2018-06-19] MEDS: VASOPRESSIN 50 UNITS in SODIUM CHLORIDE 97.5 ML IVPB SCH ×2 (03:00→17:32)
[2018-06-19] MEDS: ALBUTEROL SO4 0.083% IH SOL 2.5 MG/3 ML VIAL.NEB. NEB PRN (03:15)
[2018-06-19 05:42] LABS: ANISOCYTOSIS 2+; MACROCYTOSIS 0; PLATELET ESTIMATE DECREASED
[2018-06-19 06:03] LABS: BASO % 0.1 % (0-2.0); HEMATOCRIT 25.8 % (32.4-45.2); HEMOGLOBIN 8.4 GM/dL (10.7-15.3); LYMPH % 4.3 % (8-40); MCH 23.5 pg (25.7-33.7); MCHC 32.7 g/dl (32.0-36.0); MEAN CELL VOLUME 71.8 fl (80-96); MEAN PLT VOLUME 9.9 fl (7.5-11.1); MONO % 0.7 % (3.8-10.2); NEUT % 94.9 % (42.8-82.8); PLATELET COUNT 67 K/MM3 (134-434); RDW 18.4 % (11.6-15.6); WHITE BLOOD COUNT 8.4 K/mm3 (4.0-10.0)
[2018-06-19 06:38] LABS: ANION GAP 15 MMOL/L (8-16); CHLORIDE 85 mmol/L (98-107); CO2 23 mmol/L (21-32); CREATININE 4.3 mg/dL (0.55-1.3); GLUCOSE,RANDOM 158 mg/dL (74-106); MAGNESIUM 2.1 mg/dL (1.8-2.4); POTASSIUM 5.2 mmol/L (3.5-5.1); SODIUM 123 mmol/L (136-145)
[2018-06-19 06:44] LABS: CALCIUM 6.8 mg/dL (8.5-10.1)
[2018-06-19 08:35] LABS: ARTERIAL BLD GAS O2 SATURATION 93.4 % (90-98.9); ARTERIAL BLOOD GAS PCO2 56.5 mmHg (35-45); ARTERIAL BLOOD GAS PO2 84.5 mmHg (80-100)
[2018-06-19 08:36] LABS: ARTERIAL BLOOD GAS BASE EXCESS -6.1 meq/l (-2-2)
[2018-06-19 08:37] LABS: ALLENS TEST POSITIVE
[2018-06-19 08:40] LABS: ARTERIAL BLOOD GAS pH 7.21 (7.35-7.45)
[2018-06-19] MEDS: BACITRACIN 15 GM TUBE TOPICAL OINTMENT TP SCH (09:24)
[2018-06-19] MEDS: ROFLUMILAST 500 MCG TABLET PO SCH (09:24)
[2018-06-19] MEDS: RANITIDINE HCL 150 MG/10 ML UNIT-DOSE GT SCH ×2 (09:25→22:00)
[2018-06-19] MEDS: FERROUS SO4 300 MG/5 ML ORAL SOLN UNIT DOSE CUPS GT SCH (09:25)
[2018-06-19] MEDS: AZITHROMYCIN IVPB 250 ML IVPB SCH (09:25)
[2018-06-19 09:57] LABS: BLOOD UREA NITROGEN 148 mg/dL (7-18); PHOSPHOROUS 10.5 mg/dL (2.5-4.9)
[2018-06-19] MEDS: FOLIC ACID 1 MG TABLET (FP) PO SCH (10:05)
[2018-06-19 10:14] LABS: ANISOCYTOSIS 1+; PLATELET ESTIMATE DECREASED; TARGET CELLS 1+
[2018-06-19] MEDS ORDERED: DESMOPRESSIN ACETATE 4 MCG/ML AMP IVPB ONE (10:29)
--- NOTE | 2018-06-19 10:51 | PN ---
Teaching Attending Note Name of Resident: Long Petersen ATTENDING PHYSICIAN STATEMENT I saw and evaluated the patient. I reviewed the resident's note and discussed the case with the resident. I agree with the resident's findings and plan as documented. SUBJECTIVE: Pt seen and examined in the ICU. Remains intubated, sedated on levophed and vasopressin gtts. Family agreeable to HD. OBJECTIVE: Vital Signs Period Temp Pulse Resp BP Sys/Echevarria Pulse Ox Last 24 Hr 97.3 F-98.7 F 70-121 21-33 95-134/39-96 97-100 Intake & Output 06/16/18 06/17/18 06/18/18 06/19/18 23:59 23:59 23:59 23:59 Intake Total 4278 4755.6 6102 1419 Output Total 460 0771 369 7519 Balance 3818 2805.6 5252 419 Weight 69.445 kg 73.119 kg 76.345 kg 77.8 kg Gen: intubated, sedated Heart: RRR Lung: bilateral rhonchi Abd: soft, nontender, LLQ hematoma Ext: + edema CBC, BMP 06/19/18 05:30 06/19/18 05:30 Active Medications Acetaminophen (Tylenol -) 650 mg PO Q6H PRN PRN Reason: PAIN LEVEL 6-10 Last Admin: 06/13/18 01:30 Dose: 650 mg Albuterol Sulfate (Ventolin 0.083% Nebulizer Soln -) 1 amp NEB Q1H PRN PRN Reason: SHORT OF BREATH/WHEEZING Last Admin: 06/19/18 03:15 Dose: 1 amp Albuterol/Ipratropium (Duoneb -) 1 amp NEB Q4HPO [facility] Last Admin: 06/19/18 09:59 Dose: 1 amp Bacitracin (Bacitracin -) 1 applic TP DAILY [facility] Last Admin: 06/19/18 09:24 Dose: 1 applic Chlorhexidine Gluconate (Hibiclens For Decolonization -) 1 applic TP HS [facility] Last Admin: 06/18/18 22:17 Dose: 1 applic Diltiazem HCl (Cardizem -) 30 mg PO Q6HPO [facility] Last Admin: 06/19/18 06:32 Dose: Not Given Diltiazem HCl (Cardizem Injection -) 10 mg IVPUSH Q4H PRN PRN Reason: TACHYCARDIA Last Admin: 06/14/18 15:34 Dose: 10 mg Ergocalciferol (Drisdol -) 50,000 unit PO Q7D@1000 [facility] Last Admin: 06/15/18 10:59 Dose: Not Given Ferrous Sulfate (Feosol) 300 mg GT DAILY [facility] Last Admin: 06/19/18 09:25 Dose: 300 mg Folic Acid (Folic Acid -) 1 mg PO DAILY [facility] Last Admin: 06/19/18 10:05 Dose: 1 mg Propofol (Diprivan -) 1,000,000 mcg in 100 mls @ 1.935 mls/hr IVPB TITR [facility]; Protocol Last Titration: 06/19/18 09:27 Dose: 25 mcg/kg/min, 9.675 mls/hr Fentanyl 500 mcg/ Dextrose 100 mls @ 10 mls/hr IVPB TITR [facility]; Protocol Last Admin: 06/19/18 01:42 Dose: 75 mcg/hr, 15 mls/hr Minocycline HCl 100 mg/ (Dextrose) 100 mls @ 100 mls/hr IVPB Q12H [facility] Last Admin: 06/19/18 02:35 Dose: 100 mls/hr Azithromycin (Zithromax 500mg Ivpb (Pre-Docked)) 250 mls @ 250 mls/hr IVPB DAILY [facility] Stop: 06/21/18 10:59 Last Admin: 06/19/18 09:25 Dose: 250 mls/hr Vasopressin 50 units/ Sodium (Chloride) 100 mls @ 4 mls/hr IVPB [facility]; Protocol Last Admin: 06/19/18 03:00 Dose: 4 units/hr, 8 mls/hr Norepinephrine Bitartrate 8, (000 mcg/ Sodium Chloride) 508 mls @ 57.15 mls/hr IV [facility]; Protocol Last Titration: 06/19/18 03:00 Dose: 8 mcg/min, 30.48 mls/hr Sodium Bicarbonate 100 meq/ (Sodium Chloride) 1,100 mls @ 75 mls/hr IV Q14H [facility] Methylprednisolone Sodium Succinate (Solu-Medrol -) 80 mg IVPUSH Q6H-IV [facility] Last Admin: 06/19/18 09:23 Dose: 80 mg Montelukast Sodium (Singulair -) 10 mg PO HS [facility] Last Admin: 06/18/18 22:17 Dose: 10 mg Polyethylene Glycol (Miralax (For Daily Use) -) 17 gm PO DAILY PRN PRN Reason: CONSTIPATION Ranitidine HCl (Zantac Oral Solution -) 150 mg GT BID [facility] Last Admin: 06/19/18 09:25 Dose: 150 mg Roflumilast (Daliresp -) 500 mcg PO DAILY [facility] Last Admin: 06/19/18 09:24 Dose: 500 mcg Scopolamine HBr (Transderm-Scop -) 1 patch TD Q72H [facility] Last Admin: 06/18/18 11:00 Dose: 1 patch ASSESSMENT AND PLAN: Acute on Chronic Hypoxic and Hypercapneic Respiratory Failure Pneumonia Septic Shock Acute COPD/Bronchiectasis Exacerbation ARDS HTN - continue antibiotics per ID - IVF to keep CVP 8-12 - titrate pressors to maintain MAP >65 - monitor urine output, creatinine - will place HD catheter - inhaled bronchodilators standing and PRN - decrease medrol to 60mg q8h - monitor Ppeak, Pplat - low tidal volume ventilation 6cc/kg/IBW - keep Pplat <30 - taper Fio2 to keep Spo2 >90% - monitor ABG - keep sedated for vent synchrony at this time - enteral feeds as tolerated - DVT/GI prophylaxis - continue ICU monitoring critical care time spent in reviewing chart, evaluating patient and formulating plan 35 min
[2018-06-19] MEDS ORDERED: SODIUM CHLORIDE IVPB ONE (11:40)
[2018-06-19] MEDS ORDERED: DESMOPRESSIN ACETATE IVPB ONE (11:40)
[2018-06-19] MEDS: SODIUM CHLORIDE 0.45% 1,000 ML with SODIUM BICARBONATE 8.4% - 100 MEQ IV SCH (12:13)
--- NOTE | 2018-06-19 12:29 | PN ---
Physical Exam: SUBJECTIVE: Patient seen and examined at bedside, intubated and sedated. OBJECTIVE: Vital Signs Period Temp Pulse Resp BP Sys/Echevarria Pulse Ox Last 24 Hr 97.3 F-98.7 F 70-121 21-33 95-134/39-96 97-100 GENERAL: Intubated and sedated on propofol LUNGS: Decreased breath sounds and crackles b/l, mechanically ventilated HEART: S1S2 no m/r/g ABDOMEN: Soft, mildly distended, pupura along lower abd EXTREMITIES: warm, non-pitting edema x 4 extremities upper>lower NEUROLOGICAL: unable to assess SKIN: Warm, dry Laboratory Results - last 24 hr 06/15/18 06/17/18 06/18/18 20:00 05:30 05:30 WBC RBC Hgb Hct MCV MCH MCHC RDW Plt Count MPV Absolute Neuts (auto) Total Counted 100 Neutrophils % Neutrophils % (Manual) 96.0 H Band Neutrophils % 1.0 Lymphocytes % Lymphocytes % (Manual) 2.0 L Monocytes % Monocytes % (Manual) 1 L Eosinophils % Eosinophils % (Manual) 0.0 Basophils % Basophils % (Manual) 0.0 Myelocytes % (Man) Promyelocytes % (Man) Blast Cells % (Manual) Nucleated RBC % Metamyelocytes Hypochromia Platelet Estimate Platelet Comment Polychromasia Poikilocytosis Anisocytosis Microcytosis Macrocytosis Target Cells Anticoagulation Therapy Puncture Site ABG pH ABG pCO2 at Pt Temp ABG pO2 at Pt Temp ABG HCO3 ABG O2 Sat (Measured) ABG O2 Content ABG Base Excess Timmy Test O2 Delivery Device Oxygen Flow Rate Vent Mode Vent Rate Mechanical Rate PEEP Pressure Support Vent Sodium Potassium Chloride Carbon Dioxide Anion Gap BUN Creatinine Creat Clearance w eGFR Random Glucose Calcium Phosphorus Magnesium TRACY Screen Negative Double Strand DNA Ab <1 Heparin-Ind Plt Ab Scrn 0.160 Blood Type Crossmatch 06/18/18 06/18/18 06/19/18 12:15 18:15 01:30 WBC 9.8 8.9 RBC 2.94 L 3.60 Hgb 6.6 L* 8.5 L Hct 20.1 L D 26.0 L D MCV 68.3 L 72.1 L MCH 22.4 L 23.5 L MCHC 32.8 32.6 RDW 15.9 H 18.6 H Plt Count 110 L D 82 L D MPV 9.1 D 9.7 Absolute Neuts (auto) 9.2 H 8.6 H Total Counted Neutrophils % No Result Required. 96.4 H Neutrophils % (Manual) 87.0 H 97.0 H Band Neutrophils % 5.0 0.0 Lymphocytes % No Result Required. 2.5 L D Lymphocytes % (Manual) 6.0 L D 0.0 L Monocytes % 0.7 L Monocytes % (Manual) 2 L D 2 L Eosinophils % 0.1 D Eosinophils % (Manual) 0.0 Basophils % 0.3 Basophils % (Manual) 0.0 Myelocytes % (Man) 0 Promyelocytes % (Man) 0 Blast Cells % (Manual) 0 Nucleated RBC % 0 0 Metamyelocytes 1 D Hypochromia 1+ 2+ Platelet Estimate Decreased Decreased Platelet Comment Polychromasia 0 Poikilocytosis 2+ Anisocytosis 1+ 2+ Microcytosis 1+ 2+ Macrocytosis 0 Target Cells Anticoagulation Therapy Puncture Site ABG pH ABG pCO2 at Pt Temp ABG pO2 at Pt Temp ABG HCO3 ABG O2 Sat (Measured) ABG O2 Content ABG Base Excess Timmy Test O2 Delivery Device Oxygen Flow Rate Vent Mode Vent Rate Mechanical Rate PEEP Pressure Support Vent Sodium Potassium Chloride Carbon Dioxide Anion Gap BUN Creatinine Creat Clearance w eGFR Random Glucose Calcium Phosphorus Magnesium TRACY Screen Double Strand DNA Ab Heparin-Ind Plt Ab Scrn Blood Type B POSITIVE Crossmatch See Detail 06/19/18 06/19/18 06/19/18 05:30 05:30 06:00 WBC 8.4 RBC 3.60 Hgb 8.4 L Hct 25.8 L MCV 71.8 L MCH 23.5 L MCHC 32.7 RDW 18.4 H Plt Count 67 L MPV 9.9 Absolute Neuts (auto) 8.0 Total Counted 100 Neutrophils % 94.9 H Neutrophils % (Manual) 91.0 H Band Neutrophils % 6.0 Lymphocytes % 4.3 L D Lymphocytes % (Manual) 3.0 L D Monocytes % 0.7 L Monocytes % (Manual) Eosinophils % 0.0 D Eosinophils % (Manual) Basophils % 0.1 Basophils % (Manual) Myelocytes % (Man) Promyelocytes % (Man) Blast Cells % (Manual) Nucleated RBC % 0 Metamyelocytes Hypochromia 1+ Platelet Estimate Decreased Platelet Comment No clumping noted Polychromasia 1+ Poikilocytosis Anisocytosis 1+ Microcytosis 1+ Macrocytosis Target Cells 1+ Anticoagulation Therapy No Result Required. Puncture Site Right radial ABG pH 7.21 L* ABG pCO2 at Pt Temp 56.5 H ABG pO2 at Pt Temp 84.5 ABG HCO3 21.6 L ABG O2 Sat (Measured) 93.4 ABG O2 Content 14.1 L ABG Base Excess -6.1 L Timmy Test Positive O2 Delivery Device Mech vent Oxygen Flow Rate No Result Required. Vent Mode No Result Required. Vent Rate 22 Mechanical Rate No Result Required. PEEP 8.0 Pressure Support Vent 300 Sodium 123 L Potassium 5.2 H Chloride 85 L Carbon Dioxide 23 Anion Gap 15 BUN 148 H* Creatinine 4.3 H Creat Clearance w eGFR 10.54 Random Glucose 158 H Calcium 6.8 L* Phosphorus 10.5 H* Magnesium 2.1 TRACY Screen Double Strand DNA Ab Heparin-Ind Plt Ab Scrn Blood Type Crossmatch Active Medications Generic Name Dose Route Start Last Admin Trade Name Freq PRN Reason Stop Dose Admin Acetaminophen 650 mg 06/12/18 17:35 06/13/18 01:30 Tylenol - PO 650 mg Q6H PRN Administration PAIN LEVEL 6-10 Albuterol Sulfate 1 amp 06/15/18 14:56 06/19/18 03:15 Ventolin 0.083% Nebulizer Soln - NEB 1 amp Q1H PRN Administration SHORT OF BREATH/WHEEZING Albuterol/Ipratropium 1 amp 06/16/18 14:00 06/19/18 09:59 Duoneb - NEB 1 amp Q4HPO ZACHARY Administration Bacitracin 1 applic 06/18/18 15:30 06/19/18 09:24 Bacitracin - TP 1 applic DAILY ZACHARY Administration Chlorhexidine Gluconate 1 applic 06/12/18 22:00 06/18/18 22:17 Hibiclens For Decolonization - TP 1 applic HS ZACHARY Administration Diltiazem HCl 30 mg 06/12/18 18:00 06/19/18 06:32 Cardizem - PO Not Given Q6HPO ZACHARY Diltiazem HCl 10 mg 06/14/18 13:33 06/14/18 15:34 Cardizem Injection - IVPUSH 10 mg Q4H PRN Administration TACHYCARDIA Ergocalciferol 50,000 unit 06/15/18 10:00 06/15/18 10:59 Drisdol - PO Not Given Q7D@1000 ZACHARY Ferrous Sulfate 300 mg 06/16/18 10:00 06/19/18 09:25 Feosol GT 300 mg DAILY ZACHARY Administration Folic Acid 1 mg 06/13/18 10:00 06/19/18 10:05 Folic Acid - PO 1 mg DAILY ZACHARY Administration Propofol 1,000,000 mcg in 100 mls @ 1.935 mls/hr 06/15/18 01:45 06/19/18 09: 27 Diprivan - IVPB 25 mcg/kg/min TITR ZACHARY 9.675 mls/hr Titration Protocol 5 MCG/KG/MIN Fentanyl 500 mcg/ Dextrose 100 mls @ 10 mls/hr 06/15/18 01:45 06/19/18 01:42 IVPB 75 mcg/hr TITR ZACHARY 15 mls/hr Administration Protocol 50 MCG/HR Minocycline HCl 100 mg/ 100 mls @ 100 mls/hr 06/17/18 15:00 06/19/18 02:35 Dextrose IVPB 100 mls/hr Q12H ZACHARY Administration Azithromycin 250 mls @ 250 mls/hr 06/18/18 12:15 06/19/18 09:25 Zithromax 500mg Ivpb (Pre-Docked) IVPB 06/21/18 10:59 250 mls/hr DAILY ZACHARY Administration Vasopressin 50 units/ Sodium 100 mls @ 4 mls/hr 06/18/18 17:25 06/19/18 03:00 Chloride IVPB 4 units/hr ASDIR ZACHARY 8 mls/hr Administration Protocol 2 UNITS/HR Norepinephrine Bitartrate 8, 508 mls @ 57.15 mls/hr 06/18/18 21:15 06/19/18 11:08 000 mcg/ Sodium Chloride IV 8 mcg/min ASDIR ZACHARY 30.48 mls/hr Titration Protocol 15 MCG/MIN Sodium Bicarbonate 100 meq/ 1,100 mls @ 75 mls/hr 06/19/18 11:00 Sodium Chloride IV Q14H ZACHARY Desmopressin Acetate 25 mcg/ 106.25 mls @ 212.5 mls/hr 06/19/18 11:40 Sodium Chloride IVPB 06/19/18 12:09 ONCE ONE Methylprednisolone Sodium Succinate 80 mg 06/17/18 10:49 06/19/18 09:23 Solu-Medrol - IVPUSH 80 mg Q6H-IV ZACHARY Administration Montelukast Sodium 10 mg 06/12/18 22:00 06/18/18 22:17 Singulair - PO 10 mg HS ZACHARY Administration Polyethylene Glycol 17 gm 06/12/18 17:35 Miralax (For Daily Use) - PO DAILY PRN CONSTIPATION Ranitidine HCl 150 mg 06/16/18 11:30 06/19/18 09:25 Zantac Oral Solution - GT 150 mg BID ZACHARY Administration Roflumilast 500 mcg 06/13/18 10:00 06/19/18 09:24 Daliresp - PO 500 mcg DAILY ZACHARY Administration Scopolamine HBr 1 patch 06/18/18 10:30 06/18/18 11:00 Transderm-Scop - TD 1 patch Q72H ZACHARY Administration ASSESSMENT/PLAN: 58 y/o F w/PMHx COPD (on home O2 3L), chronic anemia, HTN initially admitted to [facility] for COPD exacerbation, hospital course complicated by HAP, progressed to ARDS, now intubated in ICU #ARDS and septic shock 2/2 HAP -ventilated: TV 300, Rate 22, Peak flow 80, PEEP 8, FiO2 35 -lungs stable/worsening on CXR -levophed + vasopressin added last night, titrate to maintain MAP>65 -solumedrol decr to 60 q8 -duonebs standing q4, daliresp GT -nepro held d/t ~700cc retention -repeat echo: only mild TR appreciated -propofol/fentanyl titrated to prevent bucking ventilator -CXR daily -repeat sputum Cx 06/15 +acinetobacter -Per ID, minocycline/zithromax +/- polymyxin dosing d/w nephro -must be on fluids d/t nephrotoxic agents -IVF: 1/2NS+ 2amps (100 meq) bicarb #RAOUL/ARF -Cr 1.3-->2.9-->3.8-->4.3 -for dialysis today -IVF per nephro reccs: 1/2NS+ 2amps (100 meq) bicarb -FENa 0.8%, likely pre-renal 2/2 hypotension -monitor closely d/t nephrotoxic agents #thrombocytopenia/anemia -overnight Hb 6.6 and Plt 18, transfused 1 U PRBC and 1 U Plt -AM Hb 8.4 and stable, Plt incr to 110 then fell to 67 -likely multifactorial d/t sepsis, ARDS, use of Lovenox (reduced but non-zero risk of HIT), use of Zosyn -purpura over abdomen -DIC may be impending -given 25mcg DDAVP -pending SPEP, globulin studies, anti-Plt ABs, broad immunologic panels, TFTs -AC held -will monitor closely -folate and iron GT -monitor CBC, transfusion threshhold 7 for PRBC, 20 for Plt #hyperkalemia -K 5.2 this AM -dialysis today FEN -1/2NS+ 2amps (100 meq) bicarb -CMP in AM -nepro GT when tolerated #PPx - DVT: SCDs - GI: Zantac GT #Dispo - ICU Visit type - Emergency Visit Emergency Visit: No - New Patient This patient is new to me today: No - Critical Care Critical Care patient: Yes Total Critical Care Time (in minutes): 40 Critical Care Statement: The care of this patient involved high complexity decision making to prevent further life threatening deterioration of the patient 's condition and/or to evaluate & treat vital organ system(s) failure or risk of failure.
[2018-06-19] MEDS ORDERED: SODIUM CHLORIDE 250 ML IV PRN (13:27)
--- NOTE | 2018-06-19 13:35 | PN ---
Progress Note, Physician History of Present Illness: Sedated on ventilator Large amts tracheal secretion reported FiO2 remains at 35% Hypotensive on pressors Afebrile WBC remains elevated Worsening azotemia. To receive dialysis today - Current Medication List Current Medications: Active Medications Acetaminophen (Tylenol -) 650 mg PO Q6H PRN PRN Reason: PAIN LEVEL 6-10 Last Admin: 06/13/18 01:30 Dose: 650 mg Albuterol Sulfate (Ventolin 0.083% Nebulizer Soln -) 1 amp NEB Q1H PRN PRN Reason: SHORT OF BREATH/WHEEZING Last Admin: 06/19/18 03:15 Dose: 1 amp Albuterol/Ipratropium (Duoneb -) 1 amp NEB Q4HPO ZACHARY Last Admin: 06/19/18 09:59 Dose: 1 amp Bacitracin (Bacitracin -) 1 applic TP DAILY [facility] Last Admin: 06/19/18 09:24 Dose: 1 applic Chlorhexidine Gluconate (Hibiclens For Decolonization -) 1 applic TP HS [facility] Last Admin: 06/18/18 22:17 Dose: 1 applic Diltiazem HCl (Cardizem -) 30 mg PO Q6HPO ZACHARY Last Admin: 06/19/18 12:37 Dose: Not Given Diltiazem HCl (Cardizem Injection -) 10 mg IVPUSH Q4H PRN PRN Reason: TACHYCARDIA Last Admin: 06/14/18 15:34 Dose: 10 mg Ergocalciferol (Drisdol -) 50,000 unit PO Q7D@1000 [facility] Last Admin: 06/15/18 10:59 Dose: Not Given Ferrous Sulfate (Feosol) 300 mg GT DAILY [facility] Last Admin: 06/19/18 09:25 Dose: 300 mg Folic Acid (Folic Acid -) 1 mg PO DAILY [facility] Last Admin: 06/19/18 10:05 Dose: 1 mg Propofol (Diprivan -) 1,000,000 mcg in 100 mls @ 1.935 mls/hr IVPB TITR [facility]; Protocol Last Titration: 06/19/18 09:27 Dose: 25 mcg/kg/min, 9.675 mls/hr Fentanyl 500 mcg/ Dextrose 100 mls @ 10 mls/hr IVPB TITR [facility]; Protocol Last Admin: 06/19/18 01:42 Dose: 75 mcg/hr, 15 mls/hr Minocycline HCl 100 mg/ (Dextrose) 100 mls @ 100 mls/hr IVPB Q12H ZACHARY Last Admin: 06/19/18 02:35 Dose: 100 mls/hr Azithromycin (Zithromax 500mg Ivpb (Pre-Docked)) 250 mls @ 250 mls/hr IVPB DAILY ZACHARY Stop: 06/21/18 10:59 Last Admin: 06/19/18 09:25 Dose: 250 mls/hr Vasopressin 50 units/ Sodium (Chloride) 100 mls @ 4 mls/hr IVPB ASDIR ZACHARY; Protocol Last Admin: 06/19/18 03:00 Dose: 4 units/hr, 8 mls/hr Norepinephrine Bitartrate 8, (000 mcg/ Sodium Chloride) 508 mls @ 57.15 mls/hr IV ASDIR ZACHARY; Protocol Last Titration: 06/19/18 11:08 Dose: 8 mcg/min, 30.48 mls/hr Sodium Bicarbonate 100 meq/ (Sodium Chloride) 1,100 mls @ 75 mls/hr IV Q14H ZACHARY Last Admin: 06/19/18 12:13 Dose: 75 mls/hr Methylprednisolone Sodium Succinate (Solu-Medrol -) 60 mg IVPUSH Q8H-IV ZACHARY Montelukast Sodium (Singulair -) 10 mg PO HS [facility] Last Admin: 06/18/18 22:17 Dose: 10 mg Polyethylene Glycol (Miralax (For Daily Use) -) 17 gm PO DAILY PRN PRN Reason: CONSTIPATION Ranitidine HCl (Zantac Oral Solution -) 150 mg GT BID [facility] Last Admin: 06/19/18 09:25 Dose: 150 mg Roflumilast (Daliresp -) 500 mcg PO DAILY ZACHARY Last Admin: 06/19/18 09:24 Dose: 500 mcg Scopolamine HBr (Transderm-Scop -) 1 patch TD Q72H [facility] Last Admin: 06/18/18 11:00 Dose: 1 patch - Objective Vital Signs: Vital Signs Temperature 97.3 F L 06/19/18 10:00 Pulse Rate 85 06/19/18 12:00 Respiratory Rate 22 H 06/19/18 12:00 Blood Pressure 131/49 L 06/19/18 12:00 O2 Sat by Pulse Oximetry (%) 97 06/19/18 08:49 Constitutional: Yes: No Distress, Other (intubated) Eyes: Yes: Conjunctiva Clear Cardiovascular: Yes: Regular Rate and Rhythm, S1, S2 Respiratory: Yes: Mechanically Ventilated Gastrointestinal: Yes: Normal Bowel Sounds, Soft. No: Tenderness Labs: CBC, BMP 06/19/18 05:30 06/19/18 05:30 INR, PTT INR 1.03 (0.83-1.09) 06/18/18 05:30 Fibrinogen 899.0 mg/dL (238-498) H 06/15/18 12:10 Assessment/Plan Sepsis/ Septic shock Respiratory failure HCAP/MDR Thrombocytopenia Continue zithromax/ minocycline Polymyxin to be redosed Continue ventilatory/ hemodynamic support Prognosis guarded
[2018-06-19] MEDS ORDERED: POLYMYXIN B SULFATE 500,000 UNIT VIAL IVPB ONE (13:37)
--- NOTE | 2018-06-19 13:57 | PN ---
Progress Note (short form) - Note Progress Note: Problems 1. RAOUL 2. CKD 3. respiratory failure requiring intubation 4. sepsis 5. multi drug resistant Acinetobacter 6. copd exacerbation 7. anemia 8. hyperkalemia 9. thrombocytopenia Current Medications Acetaminophen (Tylenol -) 650 mg PO Q6H PRN PRN Reason: PAIN LEVEL 6-10 Last Admin: 06/13/18 01:30 Dose: 650 mg Albuterol Sulfate (Ventolin 0.083% Nebulizer Soln -) 1 amp NEB Q1H PRN PRN Reason: SHORT OF BREATH/WHEEZING Last Admin: 06/19/18 03:15 Dose: 1 amp Albuterol/Ipratropium (Duoneb -) 1 amp NEB Q4HPO ZACHARY Last Admin: 06/19/18 09:59 Dose: 1 amp Bacitracin (Bacitracin -) 1 applic TP DAILY [facility] Last Admin: 06/19/18 09:24 Dose: 1 applic Chlorhexidine Gluconate (Hibiclens For Decolonization -) 1 applic TP HS [facility] Last Admin: 06/18/18 22:17 Dose: 1 applic Diltiazem HCl (Cardizem -) 30 mg PO Q6HPO ZACHARY Last Admin: 06/19/18 12:37 Dose: Not Given Diltiazem HCl (Cardizem Injection -) 10 mg IVPUSH Q4H PRN PRN Reason: TACHYCARDIA Last Admin: 06/14/18 15:34 Dose: 10 mg Ergocalciferol (Drisdol -) 50,000 unit PO Q7D@1000 [facility] Last Admin: 06/15/18 10:59 Dose: Not Given Ferrous Sulfate (Feosol) 300 mg GT DAILY [facility] Last Admin: 06/19/18 09:25 Dose: 300 mg Folic Acid (Folic Acid -) 1 mg PO DAILY [facility] Last Admin: 06/19/18 10:05 Dose: 1 mg Propofol (Diprivan -) 1,000,000 mcg in 100 mls @ 1.935 mls/hr IVPB TITR [facility]; Protocol Last Titration: 06/19/18 09:27 Dose: 25 mcg/kg/min, 9.675 mls/hr Fentanyl 500 mcg/ Dextrose 100 mls @ 10 mls/hr IVPB TITR [facility]; Protocol Last Admin: 06/19/18 01:42 Dose: 75 mcg/hr, 15 mls/hr Minocycline HCl 100 mg/ (Dextrose) 100 mls @ 100 mls/hr IVPB Q12H ZACHARY Last Admin: 06/19/18 02:35 Dose: 100 mls/hr Azithromycin (Zithromax 500mg Ivpb (Pre-Docked)) 250 mls @ 250 mls/hr IVPB DAILY ZACHARY Stop: 06/21/18 10:59 Last Admin: 06/19/18 09:25 Dose: 250 mls/hr Vasopressin 50 units/ Sodium (Chloride) 100 mls @ 4 mls/hr IVPB ASDIR ZACHARY; Protocol Last Admin: 06/19/18 03:00 Dose: 4 units/hr, 8 mls/hr Norepinephrine Bitartrate 8, (000 mcg/ Sodium Chloride) 508 mls @ 57.15 mls/hr IV ASDIR ZACHARY; Protocol Last Titration: 06/19/18 11:08 Dose: 8 mcg/min, 30.48 mls/hr Sodium Bicarbonate 100 meq/ (Sodium Chloride) 1,100 mls @ 75 mls/hr IV Q14H ZACHARY Last Admin: 06/19/18 12:13 Dose: 75 mls/hr Sodium Chloride (Normal Saline -) 250 mls @ 3,000 mls/hr IV PRN PRN PRN Reason: Hypotension during Dialysis Stop: 06/20/18 13:27 Methylprednisolone Sodium Succinate (Solu-Medrol -) 60 mg IVPUSH Q8H-IV ZACHARY Montelukast Sodium (Singulair -) 10 mg PO HS [facility] Last Admin: 06/18/18 22:17 Dose: 10 mg Polyethylene Glycol (Miralax (For Daily Use) -) 17 gm PO DAILY PRN PRN Reason: CONSTIPATION Polymyxin B Sulfate (Polymyxin B Sulfate Injection) 750,000 unit IVPB ONCE ONE ; Protocol Stop: 06/19/18 13:38 Ranitidine HCl (Zantac Oral Solution -) 150 mg GT BID [facility] Last Admin: 06/19/18 09:25 Dose: 150 mg Roflumilast (Daliresp -) 500 mcg PO DAILY [facility]ACHARY Last Admin: 06/19/18 09:24 Dose: 500 mcg Scopolamine HBr (Transderm-Scop -) 1 patch TD Q72H [facility] Last Admin: 06/18/18 11:00 Dose: 1 patch Last Vital Signs Temp Pulse Resp BP Pulse Ox 97.3 F L 85 22 H 131/49 L 97 06/19/18 10:00 06/19/18 12:00 06/19/18 12:00 06/19/18 12:00 06/19/18 08:49 generalized edema unresponsive on vent blood tinged secretions in ett Lungs vented Heart soft s1s1 Abd soft ext edema CBC, BMP 06/19/18 05:30 06/19/18 05:30 CBC, BMP 06/18/18 05:30 06/18/18 05:30 IMP- RAOUL Septic shock on pressors acute resp failure on vent acidemia metabolic acidosis family consenting to HD- consents obtained for catheter and hemodialysis Plan- hd today careful fluid removal as tolerated
[2018-06-19] MEDS ORDERED: DEXTROSE 5% IVPB ONE (14:45)
[2018-06-19] MEDS ORDERED: WATER IVPB ONE (14:45)
[2018-06-19] MEDS ORDERED: POLYMYXIN B SULFATE IVPB ONE (14:45)
--- NOTE | 2018-06-19 16:23 | PROC ---
<Hayde Bruce - Last Filed: 06/19/18 16:23> Central Line Insertion Indication: CVP Monitoring, Vasopressor, Other Risks and Benefits Explained: Yes Consent on Chart: Yes Central Line: Triple Lumen Catheter Anesthesia: 1% Lidocaine Sterile Technique: Yes Ultrasound Guided Assistance: Yes Position: left axillary vein Post Insertion: Yes: Bilateral Breath Sounds, Chest X-Ray Ordered Sterile Dressing Applied: Yes <Aaron Blakely MD - Last Filed: 06/20/18 11:42> Procedure Note Procedure: I supervised and was present during the entire procedure. Aaron Blakely MD
--- NOTE | 2018-06-19 16:23 | PN ---
Progress Note (short form) - Note Progress Note: Left triple lumen catheter placed. CXR reveals catheter in the axillary vein. Dr. Blakely and Dr. Andersen state it is acceptable for dialysis today. After dialysis is complete we will remove the line.
--- NOTE | 2018-06-19 18:35 | PN ---
Physical Exam: SUBJECTIVE: Patient seen and examined, intubated and sedated. OBJECTIVE: Vital Signs Period Temp Pulse Resp BP Sys/Echevarria Pulse Ox Last 24 Hr 97.3 F-98.7 F 70-99 20-33 79-136/22-58 97-100 GENERAL: intubated sedated in bed CVS;S1S2 regular, tachycardic Chest: decreased air entry, scattered rhonchi Abdomen: distended, hypoactive bowel sounds Extremities: 1+ pedal edema Laboratory Results - last 24 hr 06/15/18 06/17/18 06/18/18 20:00 05:30 12:15 WBC RBC Hgb Hct MCV MCH MCHC RDW Plt Count MPV Absolute Neuts (auto) Total Counted Neutrophils % Neutrophils % (Manual) Band Neutrophils % Lymphocytes % Lymphocytes % (Manual) Monocytes % Monocytes % (Manual) Eosinophils % Eosinophils % (Manual) Basophils % Basophils % (Manual) Myelocytes % (Man) Promyelocytes % (Man) Blast Cells % (Manual) Nucleated RBC % Metamyelocytes Hypochromia Platelet Estimate Platelet Comment Polychromasia Poikilocytosis Anisocytosis Microcytosis Macrocytosis Target Cells Anticoagulation Therapy Puncture Site ABG pH ABG pCO2 at Pt Temp ABG pO2 at Pt Temp ABG HCO3 ABG O2 Sat (Measured) ABG O2 Content ABG Base Excess Timmy Test O2 Delivery Device Oxygen Flow Rate Vent Mode Vent Rate Mechanical Rate PEEP Pressure Support Vent Sodium Potassium Chloride Carbon Dioxide Anion Gap BUN Creatinine Creat Clearance w eGFR Random Glucose Calcium Phosphorus Magnesium TRACY Screen Negative Heparin-Ind Plt Ab Scrn 0.160 Blood Type B POSITIVE Crossmatch See Detail 06/18/18 06/19/18 06/19/18 18:15 01:30 05:30 WBC 9.8 8.9 8.4 RBC 2.94 L 3.60 3.60 Hgb 6.6 L* 8.5 L 8.4 L Hct 20.1 L D 26.0 L D 25.8 L MCV 68.3 L 72.1 L 71.8 L MCH 22.4 L 23.5 L 23.5 L MCHC 32.8 32.6 32.7 RDW 15.9 H 18.6 H 18.4 H Plt Count 110 L D 82 L D 67 L MPV 9.1 D 9.7 9.9 Absolute Neuts (auto) 9.2 H 8.6 H 8.0 Total Counted 100 Neutrophils % No Result Required. 96.4 H 94.9 H Neutrophils % (Manual) 87.0 H 97.0 H 91.0 H Band Neutrophils % 5.0 0.0 6.0 Lymphocytes % No Result Required. 2.5 L D 4.3 L D Lymphocytes % (Manual) 6.0 L D 0.0 L 3.0 L D Monocytes % 0.7 L 0.7 L Monocytes % (Manual) 2 L D 2 L Eosinophils % 0.1 D 0.0 D Eosinophils % (Manual) 0.0 Basophils % 0.3 0.1 Basophils % (Manual) 0.0 Myelocytes % (Man) 0 Promyelocytes % (Man) 0 Blast Cells % (Manual) 0 Nucleated RBC % 0 0 0 Metamyelocytes 1 D Hypochromia 1+ 2+ 1+ Platelet Estimate Decreased Decreased Decreased Platelet Comment No clumping noted Polychromasia 0 1+ Poikilocytosis 2+ Anisocytosis 1+ 2+ 1+ Microcytosis 1+ 2+ 1+ Macrocytosis 0 Target Cells 1+ Anticoagulation Therapy Puncture Site ABG pH ABG pCO2 at Pt Temp ABG pO2 at Pt Temp ABG HCO3 ABG O2 Sat (Measured) ABG O2 Content ABG Base Excess Timmy Test O2 Delivery Device Oxygen Flow Rate Vent Mode Vent Rate Mechanical Rate PEEP Pressure Support Vent Sodium Potassium Chloride Carbon Dioxide Anion Gap BUN Creatinine Creat Clearance w eGFR Random Glucose Calcium Phosphorus Magnesium TRACY Screen Heparin-Ind Plt Ab Scrn Blood Type Crossmatch 06/19/18 06/19/18 06/19/18 05:30 06:00 16:20 WBC RBC Hgb Hct MCV MCH MCHC RDW Plt Count MPV Absolute Neuts (auto) Total Counted Neutrophils % Neutrophils % (Manual) Band Neutrophils % Lymphocytes % Lymphocytes % (Manual) Monocytes % Monocytes % (Manual) Eosinophils % Eosinophils % (Manual) Basophils % Basophils % (Manual) Myelocytes % (Man) Promyelocytes % (Man) Blast Cells % (Manual) Nucleated RBC % Metamyelocytes Hypochromia Platelet Estimate Platelet Comment Polychromasia Poikilocytosis Anisocytosis Microcytosis Macrocytosis Target Cells Anticoagulation Therapy No Result Required. Puncture Site Right radial ABG pH 7.21 L* ABG pCO2 at Pt Temp 56.5 H ABG pO2 at Pt Temp 84.5 ABG HCO3 21.6 L ABG O2 Sat (Measured) 93.4 ABG O2 Content 14.1 L ABG Base Excess -6.1 L Timmy Test Positive O2 Delivery Device Mech vent Oxygen Flow Rate No Result Required. Vent Mode No Result Required. Vent Rate 22 Mechanical Rate No Result Required. PEEP 8.0 Pressure Support Vent 300 Sodium 123 L Potassium 5.2 H Chloride 85 L Carbon Dioxide 23 Anion Gap 15 BUN 148 H* 148 H* Creatinine 4.3 H 4.0 H Creat Clearance w eGFR 10.54 Random Glucose 158 H Calcium 6.8 L* Phosphorus 10.5 H* Magnesium 2.1 TRACY Screen Heparin-Ind Plt Ab Scrn Blood Type Crossmatch Active Medications Generic Name Dose Route Start Last Admin Trade Name Freq PRN Reason Stop Dose Admin Acetaminophen 650 mg 06/12/18 17:35 06/13/18 01:30 Tylenol - PO 650 mg Q6H PRN Administration PAIN LEVEL 6-10 Albuterol Sulfate 1 amp 06/15/18 14:56 06/19/18 03:15 Ventolin 0.083% Nebulizer Soln - NEB 1 amp Q1H PRN Administration SHORT OF BREATH/WHEEZING Albuterol/Ipratropium 1 amp 06/16/18 14:00 06/19/18 17:55 Duoneb - NEB 1 amp Q4HPO [facility]ACHARY Administration Bacitracin 1 applic 06/18/18 15:30 06/19/18 09:24 Bacitracin - TP 1 applic DAILY ZACHARY Administration Chlorhexidine Gluconate 1 applic 06/12/18 22:00 06/18/18 22:17 Hibiclens For Decolonization - TP 1 applic HS [facility]ARY Administration Ergocalciferol 50,000 unit 06/15/18 10:00 06/15/18 10:59 Drisdol - PO Not Given Q7D@1000 ZACHARY Ferrous Sulfate 300 mg 06/16/18 10:00 06/19/18 09:25 Feosol GT 300 mg DAILY [facility] Administration Folic Acid 1 mg 06/13/18 10:00 06/19/18 10:05 Folic Acid - PO 1 mg DAILY [facility] Administration Propofol 1,000,000 mcg in 100 mls @ 1.935 mls/hr 06/15/18 01:45 06/19/18 09: 27 Diprivan - IVPB 25 mcg/kg/min TITR [facility] 9.675 mls/hr Titration Protocol 5 MCG/KG/MIN Fentanyl 500 mcg/ Dextrose 100 mls @ 10 mls/hr 06/15/18 01:45 06/19/18 17:47 IVPB 75 mcg/hr TITR [facility] 15 mls/hr Administration Protocol 50 MCG/HR Minocycline HCl 100 mg/ 100 mls @ 100 mls/hr 06/17/18 15:00 06/19/18 15:30 Dextrose IVPB 100 mls/hr Q12H [facility] Administration Azithromycin 250 mls @ 250 mls/hr 06/18/18 12:15 06/19/18 09:25 Zithromax 500mg Ivpb (Pre-Docked) IVPB 06/21/18 10:59 250 mls/hr DAILY [facility] Administration Vasopressin 50 units/ Sodium 100 mls @ 4 mls/hr 06/18/18 17:25 06/19/18 17:32 Chloride IVPB 4 units/hr ASDIR [facility] 8 mls/hr Administration Protocol 2 UNITS/HR Norepinephrine Bitartrate 8, 508 mls @ 57.15 mls/hr 06/18/18 21:15 06/19/18 18:00 000 mcg/ Sodium Chloride IV 22 mcg/min ASDIR [facility] 83.82 mls/hr Titration Protocol 15 MCG/MIN Sodium Bicarbonate 100 meq/ 1,100 mls @ 75 mls/hr 06/19/18 11:00 06/19/18 12: 13 Sodium Chloride IV 75 mls/hr Q14H [facility] Administration Sodium Chloride 250 mls @ 3,000 mls/hr 06/19/18 13:27 06/19/18 18:10 Normal Saline - IV 06/20/18 13:27 3,000 mls/hr PRN PRN Administration Hypotension during Dialysis Methylprednisolone Sodium Succinate 60 mg 06/19/18 18:00 06/19/18 17:48 Solu-Medrol - IVPUSH 60 mg Q8H-IV [facility] Administration Montelukast Sodium 10 mg 06/12/18 22:00 06/18/18 22:17 Singulair - PO 10 mg HS [facility] Administration Polyethylene Glycol 17 gm 06/12/18 17:35 Miralax (For Daily Use) - PO DAILY PRN CONSTIPATION Ranitidine HCl 150 mg 06/16/18 11:30 06/19/18 09:25 Zantac Oral Solution - GT 150 mg BID [facility] Administration Roflumilast 500 mcg 06/13/18 10:00 06/19/18 09:24 Daliresp - PO 500 mcg DAILY [facility] Administration Scopolamine HBr 1 patch 06/18/18 10:30 06/18/18 11:00 Transderm-Scop - TD 1 patch Q72H [facility] Administration Microbiology 06/15/18 09:30 Blood - Peripheral Venous Blood Culture - Preliminary NO GROWTH OBTAINED AFTER 96 HOURS, INCUBATION TO CONTINUE FOR 1 DAYS. 06/15/18 09:32 Blood - Peripheral Venous Blood Culture - Preliminary NO GROWTH OBTAINED AFTER 96 HOURS, INCUBATION TO CONTINUE FOR 1 DAYS. 06/15/18 04:00 Sputum - Endotrachea Suction/Ventilator Gram Stain - Final 06/15/18 04:00 Sputum - Endotrachea Suction/Ventilator Sputum Culture - Final Acinetobacter Baumannii/Haemol 06/11/18 17:49 Sputum - Expectorated Gram Stain - Final 06/11/18 17:49 Sputum - Expectorated Sputum Culture - Preliminary Acinetobacter Baumannii/Haemol 06/10/18 18:00 Blood - Peripheral Venous Blood Culture - Final NO GROWTH AFTER 5 DAYS INCUBATION 06/10/18 17:00 Blood - Peripheral Venous Blood Culture - Final NO GROWTH AFTER 5 DAYS INCUBATION 06/12/18 15:00 Stool Clostridium difficile Antigen (BENITO) - Final 06/12/18 15:00 Stool Clostridium difficile Toxin Assay - Final 05/27/18 17:42 Blood - Peripheral Venous Blood Culture - Final NO GROWTH AFTER 5 DAYS INCUBATION 05/27/18 17:42 Blood - Peripheral Venous Blood Culture - Final NO GROWTH AFTER 5 DAYS INCUBATION ASSESSMENT/PLAN: 58yo F with PMH HTn, COPD on home O2 (3L NC) and anemia presented with dyspnea and cough on 05/27/2018, initially treated for COPD exac, course complicated by worsening respiratory status, new PNA, transferred to ICU on 06/12, now on Bipap -Acute on chronic hypercapnic respiratory failure, r/o ARDS -Septic shock due to CHIKI/LLL HAP with left pleural effusion, likely parapneumonic, ?empyema, suspected Acinetobacter PNA with multiorgan failure -Acute on chronic COPD/Bronchiectasis exacerbation -Acute thrombocytopenia, suspect from severe sepsis/suspected ARDS -Hypernatremia/hypercholoremia -Uncontrolled HTN, likely from respiratory distress, now hypotensive -RAOUL on CKD, likely from septic shock/hypoperfusion s/p HD 06/19 -Normocytic anemia Plan: Vent management per ICU. Pressors for MAP >65. HD per renal. ID input noted. Tigecycline/Azithromycin day 5, polymyxin dosed per ID Repeat sputum cultures noted. Enteral feeds. Free water flushes. Not tolerating feeds Solumedrol. Nebs. Hematology input noted. Transfuse platelets prn. HIT panel neg. Fibrinogen not consistent with DIC. Urology input for daily insertion noted [id number] SCDs Dispo continue MICU level of monitoring. Septic shock now with multiorgan failure, Prognosis poor, palliative consult noted, continue to address overall goals of care. Progressive clinical deterioration now with increasing pressor requirements, worsening acidosis, renal failure getting HD today, intolerance to feeds. Visit type - Emergency Visit Emergency Visit: Yes ED Registration Date: 05/27/18 Care time: The patient presented to the Emergency Department on the above date and was hospitalized for further evaluation of their emergent condition. - New Patient This patient is new to me today: No - Critical Care Critical Care patient: Yes Total Critical Care Time (in minutes): 40 Critical Care Statement: The care of this patient involved high complexity decision making to prevent further life threatening deterioration of the patient 's condition and/or to evaluate & treat vital organ system(s) failure or risk of failure.
[2018-06-19] MEDS: SODIUM CHLORIDE 0.45% IV SCH (20:00)
[2018-06-19] MEDS: NOREPINEPHRINE BITARTRATE IV SCH (20:00)
[2018-06-19 20:30] LABS: HEMOGLOBIN 9.3 GM/dL (10.7-15.3); MCH 23.6 pg (25.7-33.7); MCHC 33.2 g/dl (32.0-36.0); MEAN CELL VOLUME 71.1 fl (80-96); MEAN PLT VOLUME 9.2 fl (7.5-11.1); PLATELET COUNT 37 K/MM3 (134-434); RBC 3.94 M/mm3 (3.60-5.2); RDW 18.2 % (11.6-15.6); WHITE BLOOD COUNT 7.5 K/mm3 (4.0-10.0)
[2018-06-19 20:30] LABS: ALBUMIN 1.4 g/dl (3.4-5.0); ALK PHOS 92 U/L (45-117); ANION GAP 11 MMOL/L (8-16); BILIRUBIN,TOTAL 0.5 mg/dL (0.2-1); BLOOD UREA NITROGEN 34 mg/dL (7-18); CHLORIDE 99 mmol/L (98-107); CO2 31 mmol/L (21-32); CREATININE 1.1 mg/dL (0.55-1.3); GLUCOSE,RANDOM 180 mg/dL (74-106); MAGNESIUM 1.7 mg/dL (1.8-2.4); PHOSPHOROUS 2.8 mg/dL (2.5-4.9); SGOT/AST 35 U/L (15-37); SGPT/ALT 43 U/L (13-61); SODIUM 140 mmol/L (136-145)
[2018-06-19 20:32] LABS: POTASSIUM 2.9 mmol/L (3.5-5.1)
[2018-06-19] MEDS ORDERED: POTASSIUM CHLORIDE TABS 20 MEQ TABLET.ER (FP) PO ONE (20:45)
[2018-06-19] MEDS ORDERED: POTASSIUM CHLORIDE ORAL LIQUID 20 MEQ/15 ML PO ONE (21:16)
[2018-06-19 21:34] LABS: PLATELET ESTIMATE SIGNIFICANT DECREASE
[2018-06-19 21:35] LABS: TOXIC GRANULATION OCCASIONAL
[2018-06-19] MEDS: MONTELUKAST NA 10 MG TABLET PO SCH (22:00)
[2018-06-20] MEDS: CHLORHEXIDINE GLUCONATE 4% CLEANSER FOR DECOLONIZATION TP SCH ×2 (00:41→21:56)
[2018-06-20] MEDS ORDERED: PROPOFOL 1,000,000 MCG/100 ML VIAL ONE (00:47)
[2018-06-20] MEDS ORDERED: fentaNYL CITRATE 250 MCG/5 ML VIAL ONE ×4 (00:47→21:49)
[2018-06-20] MEDS ORDERED: PT OWN MED DRAWER 7, Y5N ONE ×3 (00:49→15:10)
[2018-06-20] MEDS: SODIUM CHLORIDE 0.45% 1,000 ML with SODIUM BICARBONATE 8.4% - 100 MEQ IV SCH (01:16)
[2018-06-20] MEDS: PROPOFOL 1,000,000 MCG/100 ML VIAL IVPB SCH ×4 (01:17→21:53)
[2018-06-20] MEDS: FENTANYL INJECTION 500 MCG in DEXTROSE 5%-WATER - 90 ML IVPB SCH ×3 (01:18→21:52)
[2018-06-20] MEDS: VASOPRESSIN 50 UNITS in SODIUM CHLORIDE 97.5 ML IVPB SCH ×3 (01:21→21:45)
[2018-06-20] MEDS: ALBUTEROL SO4 2.5/IPRATROPIUM 0.5 INH SOL 3 ML VIAL.NEB. NEB SCH ×6 (02:05→22:00)
[2018-06-20] MEDS: methylPREDNISolone NA SUCC 40 MG/1 ML VIAL IVPUSH SCH ×3 (02:13→17:20)
[2018-06-20] MEDS: WATER IVPB SCH ×2 (02:14→15:28)
[2018-06-20] MEDS: DEXTROSE 5% IVPB SCH ×2 (02:14→15:28)
[2018-06-20] MEDS: MINOCYCLINE HCL IVPB SCH ×2 (02:14→15:28)
[2018-06-20 05:43] LABS: BASO % 0.5 % (0-2.0); EOS % 0.1 % (0-4.5); HEMATOCRIT 26.2 % (32.4-45.2); HEMOGLOBIN 8.8 GM/dL (10.7-15.3); LYMPH % 8.6 % (8-40); MCH 23.9 pg (25.7-33.7); MCHC 33.5 g/dl (32.0-36.0); MEAN CELL VOLUME 71.2 fl (80-96); MEAN PLT VOLUME 9.4 fl (7.5-11.1); MONO % 1.5 % (3.8-10.2); NEUT % 89.3 % (42.8-82.8); RBC 3.68 M/mm3 (3.60-5.2); RDW 17.9 % (11.6-15.6); WHITE BLOOD COUNT 4.2 K/mm3 (4.0-10.0)
[2018-06-20 06:04] LABS: INR 1.03 (0.83-1.09); PROTHROMBIN TIME (PATIENT) 12.1 SEC (9.7-13.0)
[2018-06-20 07:48] LABS: PLATELET ESTIMATE DECREASED
[2018-06-20 07:58] LABS: PLATELET COUNT 32 K/MM3 (134-434)
[2018-06-20 08:41] LABS: ALK PHOS 70 U/L (45-117); ANION GAP 17 MMOL/L (8-16); BILIRUBIN,TOTAL 0.5 mg/dL (0.2-1); CALCIUM 7.5 mg/dL (8.5-10.1); CHLORIDE 87 mmol/L (98-107); CO2 24 mmol/L (21-32); CREATININE 3.5 mg/dL (0.55-1.3); GLUCOSE,RANDOM 106 mg/dL (74-106); POTASSIUM 5.4 mmol/L (3.5-5.1); SGOT/AST 32 U/L (15-37); SGPT/ALT 35 U/L (13-61); SODIUM 128 mmol/L (136-145); TOT PROT 3.2 g/dl (6.4-8.2)
[2018-06-20 08:43] LABS: BLOOD UREA NITROGEN 129 mg/dL (7-18)
[2018-06-20] MEDS: AZITHROMYCIN IVPB 250 ML IVPB SCH (09:20)
[2018-06-20] MEDS: FERROUS SO4 300 MG/5 ML ORAL SOLN UNIT DOSE CUPS GT SCH (09:21)
[2018-06-20] MEDS: RANITIDINE HCL 150 MG/10 ML UNIT-DOSE GT SCH ×2 (09:21→21:52)
[2018-06-20] MEDS: FOLIC ACID 1 MG TABLET (FP) PO SCH (09:23)
[2018-06-20] MEDS: ROFLUMILAST 500 MCG TABLET PO SCH (09:25)
[2018-06-20] MEDS: BACITRACIN 15 GM TUBE TOPICAL OINTMENT TP SCH ×2 (09:26→09:27)
--- NOTE | 2018-06-20 09:58 | PN ---
Progress Note (short form) - Note Progress Note: increased pressors after HD yesterday remains sedated and intubated nurse reports copious henriquez secretions Vital Signs Period Temp Pulse Resp BP Sys/Echevarria Pulse Ox Last 24 Hr 97.3 F-99.5 F 74-111 20-30 79-158/22-84 97-100 cor-rrr lungs decrreased bs right base abd soft,nt lasrge echymosis LLQ ext + edema cxray- large left lung consolidation- 06/19 no cxray today bmp still pending CBC, BMP 06/20/18 05:30 Microbiology 06/15/18 09:30 Blood - Peripheral Venous Blood Culture - Final NO GROWTH AFTER 5 DAYS INCUBATION 06/15/18 09:32 Blood - Peripheral Venous Blood Culture - Final NO GROWTH AFTER 5 DAYS INCUBATION a/p hypoxemic respiratory failure sepsis- increasing pressor requrements HAP with multidrug resistant acinetobacter thrombocytopenia giovanna worsening-s/p HD bronchiectasis with poor lung function at baseline now on polymyxin/minocycline/zithromax received polymyxin after HD yesterday ?bedside sono to evaluate for effusion strict contact isolation overall prognosis is poor given underlying lung function Problem List - Problems (1) Sepsis Code(s): A41.9 - SEPSIS, UNSPECIFIED ORGANISM (2) Acute on chronic respiratory failure with hypoxia and hypercapnia Code(s): J96.21 - ACUTE AND CHRONIC RESPIRATORY FAILURE WITH HYPOXIA; J96.22 - ACUTE AND CHRONIC RESPIRATORY FAILURE WITH HYPERCAPNIA (3) Hospital acquired PNA Code(s): J18.9 - PNEUMONIA, UNSPECIFIED ORGANISM
[2018-06-20 10:05] LABS: ANION GAP 16 MMOL/L (8-16); CALCIUM 7.4 mg/dL (8.5-10.1); CHLORIDE 88 mmol/L (98-107); CO2 24 mmol/L (21-32); CREATININE 3.5 mg/dL (0.55-1.3); GLUCOSE,RANDOM 96 mg/dL (74-106); POTASSIUM 5.4 mmol/L (3.5-5.1); SODIUM 127 mmol/L (136-145)
[2018-06-20 10:08] LABS: ANTIGLOMERULAR BASEMENT MEN.AB 3 units (0-20)
[2018-06-20 10:13] LABS: BLOOD UREA NITROGEN 132 mg/dL (7-18)
[2018-06-20] MEDS ORDERED: AZITHROMYCIN IVPB 500 MG/250 ML BAG IVPB SCH (11:00)
--- NOTE | 2018-06-20 11:48 | PN ---
Teaching Attending Note Name of Resident: Long Petersen ATTENDING PHYSICIAN STATEMENT I saw and evaluated the patient. I reviewed the resident's note and discussed the case with the resident. I agree with the resident's findings and plan as documented. SUBJECTIVE: Pt seen and examined in the ICU. Remains intubated, sedated. Dialyzed yesterday. On increased dose pressors. Good urine output yesterday. OBJECTIVE: Vital Signs Period Temp Pulse Resp BP Sys/Echevarria Pulse Ox Last 24 Hr 97.4 F-99.5 F 74-111 18-30 79-158/22-84 97-100 Intake & Output 06/17/18 06/18/18 06/19/18 06/20/18 23:59 23:59 23:59 23:59 Intake Total 4755.6 6102 1777 2644 Output Total 0960 898 5306 350 Balance 2805.6 5252 -23 2294 Weight 73.119 kg 76.345 kg 77.8 kg 80.031 kg Gen: intubated, sedated Heart: tachycardic, regular Lung: scattered rhonchi Abd: soft, nontender Ext: + edema CBC, BMP 06/20/18 05:30 06/20/18 09:03 Active Medications Acetaminophen (Tylenol -) 650 mg PO Q6H PRN PRN Reason: PAIN LEVEL 6-10 Last Admin: 06/13/18 01:30 Dose: 650 mg Albuterol Sulfate (Ventolin 0.083% Nebulizer Soln -) 1 amp NEB Q1H PRN PRN Reason: SHORT OF BREATH/WHEEZING Last Admin: 06/19/18 03:15 Dose: 1 amp Albuterol/Ipratropium (Duoneb -) 1 amp NEB Q4HPO [facility] Last Admin: 06/20/18 10:20 Dose: 1 amp Bacitracin (Bacitracin -) 1 applic TP DAILY [facility] Last Admin: 06/20/18 09:27 Dose: Not Given Bacitracin (Bacitracin -) 1 applic TP DAILY [facility] Last Admin: 06/20/18 09:26 Dose: 1 applic Chlorhexidine Gluconate (Hibiclens For Decolonization -) 1 applic TP HS [facility] Last Admin: 06/20/18 00:41 Dose: 1 applic Ergocalciferol (Drisdol -) 50,000 unit PO Q7D@1000 [facility] Last Admin: 06/15/18 10:59 Dose: Not Given Ferrous Sulfate (Feosol) 300 mg GT DAILY [facility] Last Admin: 06/20/18 09:21 Dose: 300 mg Folic Acid (Folic Acid -) 1 mg PO DAILY [facility] Last Admin: 06/20/18 09:23 Dose: 1 mg Propofol (Diprivan -) 1,000,000 mcg in 100 mls @ 1.935 mls/hr IVPB TITR ZACHARY; Protocol Last Admin: 06/20/18 08:06 Dose: 25 mcg/kg/min, 9.675 mls/hr Fentanyl 500 mcg/ Dextrose 100 mls @ 10 mls/hr IVPB TITR ZACHARY; Protocol Last Admin: 06/20/18 08:04 Dose: 75 mcg/hr, 15 mls/hr Minocycline HCl 100 mg/ (Dextrose) 100 mls @ 100 mls/hr IVPB Q12H [facility] Last Admin: 06/20/18 02:14 Dose: 100 mls/hr Vasopressin 50 units/ Sodium (Chloride) 100 mls @ 4 mls/hr IVPB ASDIR ZACHARY; Protocol Last Admin: 06/20/18 01:21 Dose: 3 units/hr, 6 mls/hr Norepinephrine Bitartrate 8, (000 mcg/ Sodium Chloride) 508 mls @ 57.15 mls/hr IV ASDIR ZACHARY; Protocol Last Titration: 06/19/18 22:02 Dose: 15 mcg/min, 57.15 mls/hr Sodium Bicarbonate 100 meq/ (Sodium Chloride) 1,100 mls @ 75 mls/hr IV Q14H [facility] Last Admin: 06/20/18 01:16 Dose: 75 mls/hr Sodium Chloride (Normal Saline -) 250 mls @ 3,000 mls/hr IV PRN PRN PRN Reason: Hypotension during Dialysis Stop: 06/20/18 13:27 Last Admin: 06/19/18 18:10 Dose: 3,000 mls/hr Azithromycin (Zithromax 500mg Ivpb (Pre-Docked)) 500 mg in 250 mls @ 250 mls/ hr IVPB DAILY [facility] Stop: 06/21/18 10:59 Methylprednisolone Sodium Succinate (Solu-Medrol -) 40 mg IVPUSH Q8H-IV [facility] Montelukast Sodium (Singulair -) 10 mg PO HS [facility] Last Admin: 06/19/18 22:00 Dose: 10 mg Polyethylene Glycol (Miralax (For Daily Use) -) 17 gm PO DAILY PRN PRN Reason: CONSTIPATION Ranitidine HCl (Zantac Oral Solution -) 150 mg GT BID [facility] Last Admin: 06/20/18 09:21 Dose: 150 mg Roflumilast (Daliresp -) 500 mcg PO DAILY [facility] Last Admin: 06/20/18 09:25 Dose: 500 mcg Scopolamine HBr (Transderm-Scop -) 1 patch TD Q72H [facility] Last Admin: 06/18/18 11:00 Dose: 1 patch ASSESSMENT AND PLAN: Acute on Chronic Hypoxic and Hypercapneic Respiratory Failure Pneumonia Septic Shock Acute Kidney Injury Acute COPD/Bronchiectasis Exacerbation ARDS HTN - continue antibiotics per ID - IVF to keep CVP 8-12 - titrate pressors to maintain MAP >65 - monitor urine output, creatinine - HD per renal - inhaled bronchodilators standing and PRN - decrease medrol to 40mg q8h - monitor Ppeak, Pplat - low tidal volume ventilation 6cc/kg/IBW - keep Pplat <30 - taper Fio2 to keep Spo2 >90% - monitor ABG - daily sedation vacations to assess mental status - enteral feeds as tolerated - DVT/GI prophylaxis - continue ICU monitoring critical care time spent in reviewing chart, evaluating patient and formulating plan 35 min
--- NOTE | 2018-06-20 12:41 | PN ---
Teaching Attending Note Name of Resident: Babs Flores ATTENDING PHYSICIAN STATEMENT I saw and evaluated the patient. I reviewed the resident's note and discussed the case with the resident. I agree with the resident's findings and plan as documented with exceptions below. SUBJECTIVE: Patient seen and examined, intubated and sedated. OBJECTIVE: Vital Signs Period Temp Pulse Resp BP Sys/Echevarria Pulse Ox Last 24 Hr 97.4 F-99.5 F 74-114 18-30 79-158/22-84 97-100 Intake & Output 06/17/18 06/18/18 06/19/18 06/20/18 23:59 23:59 23:59 23:59 Intake Total 4755.6 6102 1777 2644 Output Total 4970 433 2148 350 Balance 2805.6 5252 -23 2294 Weight 161 lb 3.2 oz 168 lb 5 oz 171 lb 8.314 oz 176 lb 7 oz General: intubated, sedated in bed Chest: limited exam, decreased air entry, occasional rhonchi Abdomen:Soft, distended, hypoactive bowel sounds Extremities: 1+ pedal edema Active Medications Acetaminophen (Tylenol -) 650 mg PO Q6H PRN PRN Reason: PAIN LEVEL 6-10 Last Admin: 06/13/18 01:30 Dose: 650 mg Albuterol Sulfate (Ventolin 0.083% Nebulizer Soln -) 1 amp NEB Q1H PRN PRN Reason: SHORT OF BREATH/WHEEZING Last Admin: 06/19/18 03:15 Dose: 1 amp Albuterol/Ipratropium (Duoneb -) 1 amp NEB Q4HPO [facility] Last Admin: 06/20/18 10:20 Dose: 1 amp Bacitracin (Bacitracin -) 1 applic TP DAILY [facility] Last Admin: 06/20/18 09:27 Dose: Not Given Bacitracin (Bacitracin -) 1 applic TP DAILY [facility] Last Admin: 06/20/18 09:26 Dose: 1 applic Chlorhexidine Gluconate (Hibiclens For Decolonization -) 1 applic TP HS [facility] Last Admin: 06/20/18 00:41 Dose: 1 applic Ergocalciferol (Drisdol -) 50,000 unit PO Q7D@1000 [facility] Last Admin: 06/15/18 10:59 Dose: Not Given Ferrous Sulfate (Feosol) 300 mg GT DAILY [facility] Last Admin: 06/20/18 09:21 Dose: 300 mg Folic Acid (Folic Acid -) 1 mg PO DAILY [facility] Last Admin: 06/20/18 09:23 Dose: 1 mg Propofol (Diprivan -) 1,000,000 mcg in 100 mls @ 1.935 mls/hr IVPB TITR [facility]; Protocol Last Admin: 06/20/18 08:06 Dose: 25 mcg/kg/min, 9.675 mls/hr Fentanyl 500 mcg/ Dextrose 100 mls @ 10 mls/hr IVPB TITR [facility]; Protocol Last Admin: 06/20/18 08:04 Dose: 75 mcg/hr, 15 mls/hr Minocycline HCl 100 mg/ (Dextrose) 100 mls @ 100 mls/hr IVPB Q12H [facility] Last Admin: 06/20/18 02:14 Dose: 100 mls/hr Vasopressin 50 units/ Sodium (Chloride) 100 mls @ 4 mls/hr IVPB ASDIR [facility]; Protocol Last Admin: 06/20/18 01:21 Dose: 3 units/hr, 6 mls/hr Norepinephrine Bitartrate 8, (000 mcg/ Sodium Chloride) 508 mls @ 57.15 mls/hr IV ASDIR [facility]; Protocol Last Titration: 06/19/18 22:02 Dose: 15 mcg/min, 57.15 mls/hr Sodium Bicarbonate 100 meq/ (Sodium Chloride) 1,100 mls @ 75 mls/hr IV Q14H [facility] Last Admin: 06/20/18 01:16 Dose: 75 mls/hr Sodium Chloride (Normal Saline -) 250 mls @ 3,000 mls/hr IV PRN PRN PRN Reason: Hypotension during Dialysis Stop: 06/20/18 13:27 Last Admin: 06/19/18 18:10 Dose: 3,000 mls/hr Azithromycin (Zithromax 500mg Ivpb (Pre-Docked)) 500 mg in 250 mls @ 250 mls/ hr IVPB DAILY [facility] Stop: 06/21/18 10:59 Last Admin: 06/20/18 12:18 Dose: Not Given Methylprednisolone Sodium Succinate (Solu-Medrol -) 40 mg IVPUSH Q8H-IV [facility] Montelukast Sodium (Singulair -) 10 mg PO HS [facility] Last Admin: 06/19/18 22:00 Dose: 10 mg Polyethylene Glycol (Miralax (For Daily Use) -) 17 gm PO DAILY PRN PRN Reason: CONSTIPATION Ranitidine HCl (Zantac Oral Solution -) 150 mg GT BID [facility] Last Admin: 06/20/18 09:21 Dose: 150 mg Roflumilast (Daliresp -) 500 mcg PO DAILY [facility] Last Admin: 06/20/18 09:25 Dose: 500 mcg Scopolamine HBr (Transderm-Scop -) 1 patch TD Q72H [facility] Last Admin: 06/18/18 11:00 Dose: 1 patch Laboratory Results - last 24 hr 06/17/18 06/19/18 06/19/18 05:30 16:20 19:20 WBC RBC Hgb Hct MCV MCH MCHC RDW Plt Count MPV Absolute Neuts (auto) Total Counted Neutrophils % Neutrophils % (Manual) Band Neutrophils % Lymphocytes % Lymphocytes % (Manual) Monocytes % Monocytes % (Manual) Eosinophils % Basophils % Nucleated RBC % Toxic Granulation Platelet Estimate Platelet Comment Polychromasia Basophilic Stippling PT with INR INR Sodium 140 Potassium 2.9 L* Chloride 99 Carbon Dioxide 31 Anion Gap 11 BUN 148 H* 34 H Creatinine 4.0 H 1.1 Creat Clearance w eGFR 50.84 Random Glucose 180 H Calcium 7.0 L Phosphorus 2.8 Magnesium 1.7 L Total Bilirubin 0.5 AST 35 ALT 43 Alkaline Phosphatase 92 Total Protein 4.0 L Albumin 1.4 L Glomerular Base Memb Ab 3 06/19/18 06/20/18 06/20/18 20:00 05:30 05:30 WBC 7.5 4.2 RBC 3.94 3.68 Hgb 9.3 L 8.8 L Hct 28.0 L 26.2 L MCV 71.1 L 71.2 L MCH 23.6 L 23.9 L MCHC 33.2 33.5 RDW 18.2 H 17.9 H Plt Count 37 L D 32 L* MPV 9.2 9.4 Absolute Neuts (auto) 7.2 3.7 Total Counted 100 Neutrophils % No Result Required. 89.3 H Neutrophils % (Manual) 88.0 H Band Neutrophils % 4.0 Lymphocytes % No Result Required. 8.6 D Lymphocytes % (Manual) 6.0 L D Monocytes % 1.5 L D Monocytes % (Manual) 2 L Eosinophils % 0.1 D Basophils % 0.5 D Nucleated RBC % 0 0 Toxic Granulation Occasional Platelet Estimate Significant decrease Decreased Platelet Comment No clotting detected Polychromasia Occasional Basophilic Stippling Occasional PT with INR 12.10 INR 1.03 Sodium Potassium Chloride Carbon Dioxide Anion Gap BUN Creatinine Creat Clearance w eGFR Random Glucose Calcium Phosphorus Magnesium Total Bilirubin AST ALT Alkaline Phosphatase Total Protein Albumin Glomerular Base Memb Ab 06/20/18 06/20/18 05:30 09:03 WBC RBC Hgb Hct MCV MCH MCHC RDW Plt Count MPV Absolute Neuts (auto) Total Counted Neutrophils % Neutrophils % (Manual) Band Neutrophils % Lymphocytes % Lymphocytes % (Manual) Monocytes % Monocytes % (Manual) Eosinophils % Basophils % Nucleated RBC % Toxic Granulation Platelet Estimate Platelet Comment Polychromasia Basophilic Stippling PT with INR INR Sodium 128 L 127 L Potassium 5.4 H 5.4 H Chloride 87 L 88 L Carbon Dioxide 24 24 Anion Gap 17 H 16 BUN 129 H* 132 H* Creatinine 3.5 H 3.5 H Creat Clearance w eGFR 13.37 13.37 Random Glucose 106 96 Calcium 7.5 L 7.4 L Phosphorus 10.0 H* Magnesium 2.0 Total Bilirubin 0.5 AST 32 ALT 35 Alkaline Phosphatase 70 Total Protein 3.2 L Albumin 1.0 L Glomerular Base Memb Ab Microbiology 06/15/18 09:30 Blood - Peripheral Venous Blood Culture - Final NO GROWTH AFTER 5 DAYS INCUBATION 06/15/18 09:32 Blood - Peripheral Venous Blood Culture - Final NO GROWTH AFTER 5 DAYS INCUBATION 06/15/18 04:00 Sputum - Endotrachea Suction/Ventilator Gram Stain - Final 06/15/18 04:00 Sputum - Endotrachea Suction/Ventilator Sputum Culture - Final Acinetobacter Baumannii/Haemol 06/11/18 17:49 Sputum - Expectorated Gram Stain - Final 06/11/18 17:49 Sputum - Expectorated Sputum Culture - Preliminary Acinetobacter Baumannii/Haemol 06/10/18 18:00 Blood - Peripheral Venous Blood Culture - Final NO GROWTH AFTER 5 DAYS INCUBATION 06/10/18 17:00 Blood - Peripheral Venous Blood Culture - Final NO GROWTH AFTER 5 DAYS INCUBATION 06/12/18 15:00 Stool Clostridium difficile Antigen (BENITO) - Final 06/12/18 15:00 Stool Clostridium difficile Toxin Assay - Final 05/27/18 17:42 Blood - Peripheral Venous Blood Culture - Final NO GROWTH AFTER 5 DAYS INCUBATION 05/27/18 17:42 Blood - Peripheral Venous Blood Culture - Final NO GROWTH AFTER 5 DAYS INCUBATION ASSESSMENT AND PLAN: 58yo F with PMH HTn, COPD on home O2 (3L NC) and anemia presented with dyspnea and cough on 05/27/2018, initially treated for COPD exac, course complicated by worsening respiratory status, new PNA, transferred to ICU on 06/12, now on Bipap -Acute on chronic hypercapnic respiratory failure, r/o ARDS -Septic shock due to CHIKI/LLL HAP with left pleural effusion, likely parapneumonic, ?empyema, suspected Acinetobacter PNA with multiorgan failure -Acute on chronic COPD/Bronchiectasis exacerbation -Acute thrombocytopenia, suspect from severe sepsis/suspected ARDS -Hypernatremia/hypercholoremia -Uncontrolled HTN, likely from respiratory distress, now hypotensive -Acure renal failure on CKD, likely from septic shock/hypoperfusion s/p HD 06/19 -Normocytic anemia Plan: Vent management per ICU. Pressors for MAP >65. Plan for sedation vacation today. s/p HD on 06/19, further per renal. Urine outpatient improved yesterday. Avoid K suppl, discussed with ICU team. ID input noted. Tigecycline/Azithromycin day 6, polymyxin dosed after HD. Repeat sputum cultures noted. Enteral feeds. Free water flushes. Not tolerating feeds Solumedrol. Nebs. Hematology input noted. Transfuse platelets prn. HIT panel neg. Fibrinogen not consistent with DIC. Urology input for daily insertion noted [id number] SCDs Dispo continue MICU level of monitoring. Septic shock now with multiorgan failure, Prognosis poor, palliative consult noted, continue to address overall goals of care. Prognosis poor given baseline lung function and septic shock with multiorgan failure. Total critical care time spent 40 min.
[2018-06-20] MEDS ORDERED: SODIUM POLYSTYRENE SULFONATE 15 GM/60 ML BOTTLE PO ONE (12:56)
[2018-06-20 12:59] LABS: ARTERIAL BLD GAS O2 SATURATION 97.8 % (90-98.9); ARTERIAL BLOOD GAS PCO2 58.4 mmHg (35-45)
[2018-06-20 13:00] LABS: ALLENS TEST POSITIVE; ARTERIAL BLOOD GAS BASE EXCESS -3.8 meq/l (-2-2)
[2018-06-20] MEDS ORDERED: INSULIN (NOVOLOG) ASPART 100 UNITS/ML 10ML VIAL SQ ONE ×2 (13:05→13:37)
[2018-06-20] MEDS ORDERED: CALCIUM GLUCONATE 10% - 1,000 MG/10 ML VIAL IVPB ONE ×2 (13:06→13:38)
[2018-06-20] MEDS ORDERED: DEXTROSE 50%-WATER - 25 GM/50 ML VIAL IVPUSH ONE ×2 (13:08→14:00)
[2018-06-20 13:10] LABS: ARTERIAL BLOOD GAS pH 7.23 (7.35-7.45)
--- NOTE | 2018-06-20 13:26 | PN ---
Physical Exam: SUBJECTIVE: Patient seen and examined at bedside, intubated and sedated. OBJECTIVE: Vital Signs Period Temp Pulse Resp BP Sys/Echevarria Pulse Ox Last 24 Hr 97.4 F-99.5 F 74-114 18-30 79-158/22-84 97-100 GENERAL: Intubated and sedated on propofol LUNGS: Decreased breath sounds and crackles b/l, mechanically ventilated HEART: S1S2 no m/r/g ABDOMEN: Soft, mildly distended, pupura along lower abd EXTREMITIES: warm, non-pitting edema x 4 extremities upper>lower NEUROLOGICAL: unable to assess SKIN: Warm, dry Laboratory Results - last 24 hr 06/17/18 06/19/18 06/19/18 05:30 16:20 19:20 WBC RBC Hgb Hct MCV MCH MCHC RDW Plt Count MPV Absolute Neuts (auto) Total Counted Neutrophils % Neutrophils % (Manual) Band Neutrophils % Lymphocytes % Lymphocytes % (Manual) Monocytes % Monocytes % (Manual) Eosinophils % Basophils % Nucleated RBC % Toxic Granulation Platelet Estimate Platelet Comment Polychromasia Basophilic Stippling PT with INR INR Anticoagulation Therapy Puncture Site ABG pH ABG pCO2 at Pt Temp ABG pO2 at Pt Temp ABG HCO3 ABG O2 Sat (Measured) ABG O2 Content ABG Base Excess Timmy Test O2 Delivery Device Oxygen Flow Rate Vent Mode Vent Rate Mechanical Rate PEEP Pressure Support Vent Sodium 140 Potassium 2.9 L* Chloride 99 Carbon Dioxide 31 Anion Gap 11 BUN 148 H* 34 H Creatinine 4.0 H 1.1 Creat Clearance w eGFR 50.84 Random Glucose 180 H Calcium 7.0 L Phosphorus 2.8 Magnesium 1.7 L Total Bilirubin 0.5 AST 35 ALT 43 Alkaline Phosphatase 92 Total Protein 4.0 L Albumin 1.4 L Glomerular Base Memb Ab 3 06/19/18 06/20/18 06/20/18 20:00 05:30 05:30 WBC 7.5 4.2 RBC 3.94 3.68 Hgb 9.3 L 8.8 L Hct 28.0 L 26.2 L MCV 71.1 L 71.2 L MCH 23.6 L 23.9 L MCHC 33.2 33.5 RDW 18.2 H 17.9 H Plt Count 37 L D 32 L* MPV 9.2 9.4 Absolute Neuts (auto) 7.2 3.7 Total Counted 100 Neutrophils % No Result Required. 89.3 H Neutrophils % (Manual) 88.0 H Band Neutrophils % 4.0 Lymphocytes % No Result Required. 8.6 D Lymphocytes % (Manual) 6.0 L D Monocytes % 1.5 L D Monocytes % (Manual) 2 L Eosinophils % 0.1 D Basophils % 0.5 D Nucleated RBC % 0 0 Toxic Granulation Occasional Platelet Estimate Significant decrease Decreased Platelet Comment No clotting detected Polychromasia Occasional Basophilic Stippling Occasional PT with INR 12.10 INR 1.03 Anticoagulation Therapy Puncture Site ABG pH ABG pCO2 at Pt Temp ABG pO2 at Pt Temp ABG HCO3 ABG O2 Sat (Measured) ABG O2 Content ABG Base Excess Timmy Test O2 Delivery Device Oxygen Flow Rate Vent Mode Vent Rate Mechanical Rate PEEP Pressure Support Vent Sodium Potassium Chloride Carbon Dioxide Anion Gap BUN Creatinine Creat Clearance w eGFR Random Glucose Calcium Phosphorus Magnesium Total Bilirubin AST ALT Alkaline Phosphatase Total Protein Albumin Glomerular Base Memb Ab 06/20/18 06/20/18 06/20/18 05:30 09:03 11:50 WBC RBC Hgb Hct MCV MCH MCHC RDW Plt Count MPV Absolute Neuts (auto) Total Counted Neutrophils % Neutrophils % (Manual) Band Neutrophils % Lymphocytes % Lymphocytes % (Manual) Monocytes % Monocytes % (Manual) Eosinophils % Basophils % Nucleated RBC % Toxic Granulation Platelet Estimate Platelet Comment Polychromasia Basophilic Stippling PT with INR INR Anticoagulation Therapy No Result Required. Puncture Site Right radial ABG pH 7.23 L* ABG pCO2 at Pt Temp 58.4 H ABG pO2 at Pt Temp 121.0 H D ABG HCO3 23.6 ABG O2 Sat (Measured) 97.8 ABG O2 Content 12.6 L ABG Base Excess -3.8 L Timmy Test Positive O2 Delivery Device No Result Required. Oxygen Flow Rate 35 Vent Mode No Result Required. Vent Rate No Result Required. Mechanical Rate No Result Required. PEEP 8.0 Pressure Support Vent 300 Sodium 128 L 127 L Potassium 5.4 H 5.4 H Chloride 87 L 88 L Carbon Dioxide 24 24 Anion Gap 17 H 16 BUN 129 H* 132 H* Creatinine 3.5 H 3.5 H Creat Clearance w eGFR 13.37 13.37 Random Glucose 106 96 Calcium 7.5 L 7.4 L Phosphorus 10.0 H* Magnesium 2.0 Total Bilirubin 0.5 AST 32 ALT 35 Alkaline Phosphatase 70 Total Protein 3.2 L Albumin 1.0 L Glomerular Base Memb Ab Active Medications Generic Name Dose Route Start Last Admin Trade Name Paulq PRN Reason Stop Dose Admin Acetaminophen 650 mg 06/12/18 17:35 06/13/18 01:30 Tylenol - PO 650 mg Q6H PRN Administration PAIN LEVEL 6-10 Albuterol Sulfate 1 amp 06/15/18 14:56 06/19/18 03:15 Ventolin 0.083% Nebulizer Soln - NEB 1 amp Q1H PRN Administration SHORT OF BREATH/WHEEZING Albuterol/Ipratropium 1 amp 06/16/18 14:00 06/20/18 10:20 Duoneb - NEB 1 amp Q4HPO [facility] Administration Bacitracin 1 applic 06/18/18 15:30 06/20/18 09:27 Bacitracin - TP Not Given DAILY [facility] Bacitracin 1 applic 06/20/18 10:00 06/20/18 09:26 Bacitracin - TP 1 applic DAILY [facility] Administration Calcium Acetate 667 mg 06/20/18 17:30 Phoslo - PO TIDCM [facility] Calcium Gluconate 1,000 mg 06/20/18 13:06 Calcium Gluconate 10% - IVPB 06/20/18 13:07 ONCE ONE Chlorhexidine Gluconate 1 applic 06/12/18 22:00 06/20/18 00:41 Hibiclens For Decolonization - TP 1 applic HS [facility] Administration Dextrose 25 gm 06/20/18 13:08 D50w (Vial) - IVPUSH 06/20/18 13:09 NOW ONE Ergocalciferol 50,000 unit 06/15/18 10:00 06/15/18 10:59 Drisdol - PO Not Given Q7D@1000 [facility] Ferrous Sulfate 300 mg 06/16/18 10:00 06/20/18 09:21 Feosol GT 300 mg DAILY [facility] Administration Folic Acid 1 mg 06/13/18 10:00 06/20/18 09:23 Folic Acid - PO 1 mg DAILY [facility] Administration Propofol 1,000,000 mcg in 100 mls @ 1.935 mls/hr 06/15/18 01:45 06/20/18 08: 06 Diprivan - IVPB 25 mcg/kg/min TITR [facility] 9.675 mls/hr Administration Protocol 5 MCG/KG/MIN Fentanyl 500 mcg/ Dextrose 100 mls @ 10 mls/hr 06/15/18 01:45 06/20/18 08:04 IVPB 75 mcg/hr TITR [facility] 15 mls/hr Administration Protocol 50 MCG/HR Minocycline HCl 100 mg/ 100 mls @ 100 mls/hr 06/17/18 15:00 06/20/18 02:14 Dextrose IVPB 100 mls/hr Q12H [facility] Administration Vasopressin 50 units/ Sodium 100 mls @ 4 mls/hr 06/18/18 17:25 06/20/18 01:21 Chloride IVPB 3 units/hr ASDIR [facility] 6 mls/hr Administration Protocol 2 UNITS/HR Norepinephrine Bitartrate 8, 508 mls @ 57.15 mls/hr 06/18/18 21:15 06/19/18 22:02 000 mcg/ Sodium Chloride IV 15 mcg/min ASDIR [facility] 57.15 mls/hr Titration Protocol 15 MCG/MIN Sodium Bicarbonate 100 meq/ 1,100 mls @ 75 mls/hr 06/19/18 11:00 06/20/18 01: 16 Sodium Chloride IV 75 mls/hr Q14H [facility] Administration Sodium Chloride 250 mls @ 3,000 mls/hr 06/19/18 13:27 06/19/18 18:10 Normal Saline - IV 06/20/18 13:27 3,000 mls/hr PRN PRN Administration Hypotension during Dialysis Azithromycin 500 mg in 250 mls @ 250 mls/hr 06/20/18 11:00 06/20/18 12:18 Zithromax 500mg Ivpb (Pre-Docked) IVPB 06/21/18 10:59 Not Given DAILY [facility] Insulin Aspart 10 units 06/20/18 13:05 Novolog Vial SQ 06/20/18 13:06 ONCE ONE Protocol Methylprednisolone Sodium Succinate 40 mg 06/20/18 11:22 Solu-Medrol - IVPUSH Q8H-IV [facility] Montelukast Sodium 10 mg 06/12/18 22:00 06/19/18 22:00 Singulair - PO 10 mg HS [facility] Administration Polyethylene Glycol 17 gm 06/12/18 17:35 Miralax (For Daily Use) - PO DAILY PRN CONSTIPATION Ranitidine HCl 150 mg 06/16/18 11:30 06/20/18 09:21 Zantac Oral Solution - GT 150 mg BID [facility] Administration Roflumilast 500 mcg 06/13/18 10:00 06/20/18 09:25 Daliresp - PO 500 mcg DAILY [facility] Administration Scopolamine HBr 1 patch 06/18/18 10:30 06/18/18 11:00 Transderm-Scop - TD 1 patch Q72H [facility] Administration ASSESSMENT/PLAN: 58 y/o F w/PMHx COPD (on home O2 3L), chronic anemia, HTN initially admitted to [facility] for COPD exacerbation, hospital course complicated by HAP, progressed to ARDS, now intubated in ICU #ARDS and septic shock 2/2 HAP -ventilated: TV 300, Rate 22, Peak flow 80, PEEP 5, FiO2 30 (repeat ABG 7.23/ 58.4/121/23.6) -lungs stable/worsening on CXR -levophed + vasopressin, titrate to maintain MAP>65 -solumedrol decr to 40 q8 -duonebs standing q4, daliresp GT -nepro held d/t residuals -repeat echo: only mild TR appreciated -propofol/fentanyl titrated to prevent bucking ventilator -CXR daily -ABG daily -repeat sputum Cx 06/15 +acinetobacter -Per ID, minocycline/zithromax +/- polymyxin dosing d/w nephro -must be on fluids d/t nephrotoxic agents -IVF: 1/2NS+ 2amps (100 meq) bicarb #RAOUL/ARF -post-dialysis Bun/Cr 129/3.5 -nephro following, will re-evaluate tomorrow for further dialysis -IVF per nephro reccs: 1/2NS+ 2amps (100 meq) bicarb -FENa 0.8%, likely pre-renal 2/2 hypotension -monitor closely d/t nephrotoxic agents #thrombocytopenia/anemia -AM Hb 8.8, Plt decr to 32 -repeat PM CBC -likely multifactorial d/t sepsis, ARDS, use of Lovenox, use of Zosyn -purpura over abdomen stable -PT/PTT/INR in AM -anti-Plt ABs neg (HIT r/o) -pending SPEP, globulin studies, anti-Plt ABs, broad immunologic panels, TFTs -AC held -will monitor closely -folate and iron GT -monitor CBC, transfusion threshhold 7 for PRBC, 20 for Plt #hyperkalemia/hyperphosphatemia -K 5.4, Ph 10 this AM -kayexelate and phoslo today -likely requiring further dialysis FEN -1/2NS+ 2amps (100 meq) bicarb -CMP in AM -NPO d/t residuals, may restart trickle feeds tomorrow #PPx - DVT: SCDs - GI: Zantac GT #Dispo - ICU Visit type - Emergency Visit Emergency Visit: No - New Patient This patient is new to me today: No - Critical Care Critical Care patient: Yes Total Critical Care Time (in minutes): 40 Critical Care Statement: The care of this patient involved high complexity decision making to prevent further life threatening deterioration of the patient 's condition and/or to evaluate & treat vital organ system(s) failure or risk of failure.
[2018-06-20] MEDS ORDERED: INSULIN REGULAR HUMAN 100 UNITS/ML *VIAL IVPUSH ONE (13:51)
[2018-06-20] MEDS ORDERED: DEXTROSE 50%-WATER 25 GM/50 ML DISP.SYRIN ONE (14:08)
[2018-06-20] MEDS: SODIUM CHLORIDE 0.45% 1,000 ML with SODIUM BICARBONATE 8.4% - 75 MEQ IV SCH (15:26)
--- NOTE | 2018-06-20 17:19 | PN ---
Progress Note, Physician History of Present Illness: Pt seen and examined at bedside. She remains in the ICU. She was dialyzed over the weekend. She remains intubated. - Current Medication List Current Medications: Active Medications Acetaminophen (Tylenol -) 650 mg PO Q6H PRN PRN Reason: PAIN LEVEL 6-10 Last Admin: 06/13/18 01:30 Dose: 650 mg Albuterol/Ipratropium (Duoneb -) 1 amp NEB Q4HPO [facility] Last Admin: 06/20/18 14:10 Dose: 1 amp Bacitracin (Bacitracin -) 1 applic TP DAILY [facility] Last Admin: 06/20/18 09:27 Dose: Not Given Bacitracin (Bacitracin -) 1 applic TP DAILY [facility] Last Admin: 06/20/18 09:26 Dose: 1 applic Calcium Acetate (Phoslo -) 667 mg PO TIDCM [facility] Chlorhexidine Gluconate (Hibiclens For Decolonization -) 1 applic TP HS [facility] Last Admin: 06/20/18 00:41 Dose: 1 applic Ergocalciferol (Drisdol -) 50,000 unit PO Q7D@1000 [facility] Last Admin: 06/15/18 10:59 Dose: Not Given Ferrous Sulfate (Feosol) 300 mg GT DAILY [facility] Last Admin: 06/20/18 09:21 Dose: 300 mg Folic Acid (Folic Acid -) 1 mg PO DAILY [facility] Last Admin: 06/20/18 09:23 Dose: 1 mg Propofol (Diprivan -) 1,000,000 mcg in 100 mls @ 1.935 mls/hr IVPB TITR [facility]; Protocol Last Admin: 06/20/18 16:54 Dose: 25 mcg/kg/min, 9.675 mls/hr Fentanyl 500 mcg/ Dextrose 100 mls @ 10 mls/hr IVPB TITR [facility]; Protocol Last Admin: 06/20/18 08:04 Dose: 75 mcg/hr, 15 mls/hr Minocycline HCl 100 mg/ (Dextrose) 100 mls @ 100 mls/hr IVPB Q12H [facility] Last Admin: 06/20/18 15:28 Dose: 100 mls/hr Vasopressin 50 units/ Sodium (Chloride) 100 mls @ 4 mls/hr IVPB ASDIR [facility]; Protocol Last Admin: 06/20/18 01:21 Dose: 3 units/hr, 6 mls/hr Norepinephrine Bitartrate 8, (000 mcg/ Sodium Chloride) 508 mls @ 57.15 mls/hr IV ASDIR [facility]; Protocol Last Titration: 06/20/18 11:00 Dose: 12 mcg/min, 45.72 mls/hr Azithromycin (Zithromax 500mg Ivpb (Pre-Docked)) 500 mg in 250 mls @ 250 mls/ hr IVPB DAILY [facility] Stop: 06/21/18 10:59 Last Admin: 06/20/18 12:18 Dose: Not Given Sodium Bicarbonate 75 meq/ (Sodium Chloride) 1,075 mls @ 75 mls/hr IV Q14H [facility] Last Admin: 06/20/18 15:26 Dose: 75 mls/hr Methylprednisolone Sodium Succinate (Solu-Medrol -) 40 mg IVPUSH Q8H-IV [facility] Montelukast Sodium (Singulair -) 10 mg PO HS [facility] Last Admin: 06/19/18 22:00 Dose: 10 mg Polyethylene Glycol (Miralax (For Daily Use) -) 17 gm PO DAILY PRN PRN Reason: CONSTIPATION Ranitidine HCl (Zantac Oral Solution -) 150 mg GT BID [facility] Last Admin: 06/20/18 09:21 Dose: 150 mg Roflumilast (Daliresp -) 500 mcg PO DAILY [facility] Last Admin: 06/20/18 09:25 Dose: 500 mcg Scopolamine HBr (Transderm-Scop -) 1 patch TD Q72H [facility] Last Admin: 06/18/18 11:00 Dose: 1 patch - Objective Vital Signs: Vital Signs Temperature 98.3 F 06/20/18 14:00 Pulse Rate 107 H 06/20/18 17:00 Respiratory Rate 22 H 06/20/18 17:00 Blood Pressure 114/54 L 06/20/18 17:00 O2 Sat by Pulse Oximetry (%) 99 06/20/18 10:48 Constitutional: Yes: Calm Eyes: Yes: Conjunctiva Clear HENT: Yes: Atraumatic Neck: Yes: Supple Cardiovascular: Yes: S1, S2 Respiratory: Yes: Mechanically Ventilated Gastrointestinal: Yes: Soft Genitourinary: Yes: Ramírez Present Musculoskeletal: Yes: Muscle Weakness Edema: No Neurological: Yes: Lethargy Labs: CBC, BMP 06/20/18 05:30 06/20/18 09:03 INR, PTT INR 1.03 (0.83-1.09) 06/20/18 05:30 Fibrinogen 899.0 mg/dL (238-498) H 06/15/18 12:10 - ....Imaging Chest X-ray: Report Reviewed Problem List - Problems (1) RAOUL (acute kidney injury) Code(s): N17.9 - ACUTE KIDNEY FAILURE, UNSPECIFIED (2) CKD (chronic kidney disease) Code(s): N18.9 - CHRONIC KIDNEY DISEASE, UNSPECIFIED (3) COPD exacerbation Code(s): J44.1 - CHRONIC OBSTRUCTIVE PULMONARY DISEASE W (ACUTE) EXACERBATION (4) Hospital acquired PNA Code(s): J18.9 - PNEUMONIA, UNSPECIFIED ORGANISM (5) Sepsis Code(s): A41.9 - SEPSIS, UNSPECIFIED ORGANISM (6) COPD (chronic obstructive pulmonary disease) with acute bronchitis Code(s): J44.0 - CHRONIC OBSTRUCTIVE PULMON DISEASE W ACUTE LOWER RESP INFCT Assessment/Plan Current Medications Generic Name Dose Route Start Last Admin Trade Name Freq PRN Reason Stop Dose Admin Acetaminophen 650 mg 06/12/18 17:35 06/13/18 01:30 Tylenol - PO 650 mg Q6H PRN Administration PAIN LEVEL 6-10 Albuterol/Ipratropium 1 amp 06/16/18 14:00 06/20/18 14:10 Duoneb - NEB 1 amp Q4HPO [facility] Administration Bacitracin 1 applic 06/18/18 15:30 06/20/18 09:27 Bacitracin - TP Not Given DAILY [facility] Bacitracin 1 applic 06/20/18 10:00 06/20/18 09:26 Bacitracin - TP 1 applic DAILY [facility] Administration Calcium Acetate 667 mg 06/20/18 17:30 Phoslo - PO TIDCM [facility] Chlorhexidine Gluconate 1 applic 06/12/18 22:00 06/20/18 00:41 Hibiclens For Decolonization - TP 1 applic HS [facility] Administration Ergocalciferol 50,000 unit 06/15/18 10:00 06/15/18 10:59 Drisdol - PO Not Given Q7D@1000 [facility] Ferrous Sulfate 300 mg 06/16/18 10:00 06/20/18 09:21 Feosol GT 300 mg DAILY [facility] Administration Folic Acid 1 mg 06/13/18 10:00 06/20/18 09:23 Folic Acid - PO 1 mg DAILY [facility] Administration Propofol 1,000,000 mcg in 100 mls @ 1.935 mls/hr 06/15/18 01:45 06/20/18 16: 54 Diprivan - IVPB 25 mcg/kg/min TITR [facility] 9.675 mls/hr Administration Protocol 5 MCG/KG/MIN Fentanyl 500 mcg/ Dextrose 100 mls @ 10 mls/hr 06/15/18 01:45 06/20/18 08:04 IVPB 75 mcg/hr TITR [facility] 15 mls/hr Administration Protocol 50 MCG/HR Minocycline HCl 100 mg/ 100 mls @ 100 mls/hr 06/17/18 15:00 06/20/18 15:28 Dextrose IVPB 100 mls/hr Q12H [facility] Administration Vasopressin 50 units/ Sodium 100 mls @ 4 mls/hr 06/18/18 17:25 06/20/18 01:21 Chloride IVPB 3 units/hr ASDIR [facility]ACH[facility] 6 mls/hr Administration Protocol 2 UNITS/HR Norepinephrine Bitartrate 8, 508 mls @ 57.15 mls/hr 06/18/18 21:15 06/20/18 11:00 000 mcg/ Sodium Chloride IV 12 mcg/min ASDIR [facility]ACH[facility] 45.72 mls/hr Titration Protocol 15 MCG/MIN Azithromycin 500 mg in 250 mls @ 250 mls/hr 06/20/18 11:00 06/20/18 12:18 Zithromax 500mg Ivpb (Pre-Docked) IVPB 06/21/18 10:59 Not Given DAILY [facility] Sodium Bicarbonate 75 meq/ 1,075 mls @ 75 mls/hr 06/20/18 14:45 06/20/18 15: 26 Sodium Chloride IV 75 mls/hr Q14H [facility] Administration Methylprednisolone Sodium Succinate 40 mg 06/20/18 11:22 Solu-Medrol - IVPUSH Q8H-IV [facility] Montelukast Sodium 10 mg 06/12/18 22:00 06/19/18 22:00 Singulair - PO 10 mg HS [facility] Administration Polyethylene Glycol 17 gm 06/12/18 17:35 Miralax (For Daily Use) - PO DAILY PRN CONSTIPATION Ranitidine HCl 150 mg 06/16/18 11:30 06/20/18 09:21 Zantac Oral Solution - GT 150 mg BID [facility] Administration Roflumilast 500 mcg 06/13/18 10:00 06/20/18 09:25 Daliresp - PO 500 mcg DAILY [facility] Administration Scopolamine HBr 1 patch 06/18/18 10:30 06/18/18 11:00 Transderm-Scop - TD 1 patch Q72H [facility] Administration Laboratory Tests 06/17/18 05:30 MARYANNE M-Dwaine Pending TRACY Screen Negative c-ANCA Pending Proteinase 3 (PR3) Pending p-ANCA Pending Atypical p-ANCA Pending Myeloperoxidase Ab Pending Double Strand DNA Ab <1 Glomerular Base Memb Ab 3 Hep Bs Antigen Negative Hep Bs Antibody Non reactive Hep B Core Total Ab Negative HCV Quantitation Pending Impression 1. RAOUL 2. CKD 3. respiratory failure requiring intubation 4. sepsis 5. multi drug resistant Acinetobacter 6. copd exacerbation 7. anemia 8. hyperkalemia 9. thrombocytopenia Plan - pts urine output is improving - treat potassium medically - will evaluate for HD again tomorrow - will need new access if getting HD - adjust fluids, discussed with ICU team - cont pressors to a map of 65 - vent support - daily cxr - RAOUL is likely multifactorial - prognosis guarded Dr Marquez
[2018-06-20] MEDS ORDERED: CALCIUM ACETATE 667 MG CAPSULE (FP) PO SCH (17:30)
[2018-06-20 17:37] LABS: HEMATOCRIT 26.4 % (32.4-45.2); HEMOGLOBIN 8.7 GM/dL (10.7-15.3); MCH 23.2 pg (25.7-33.7); MCHC 32.8 g/dl (32.0-36.0); MEAN CELL VOLUME 70.7 fl (80-96); MEAN PLT VOLUME 10.2 fl (7.5-11.1); RBC 3.73 M/mm3 (3.60-5.2); RDW 17.8 % (11.6-15.6); WHITE BLOOD COUNT 2.8 K/mm3 (4.0-10.0)
[2018-06-20 17:55] LABS: PLATELET COUNT 21 K/MM3 (134-434)
--- NOTE | 2018-06-20 20:08 | PN ---
Physical Exam: SUBJECTIVE: Patient seen and examined at bedside this morning. Patient is intubated and sedated. OBJECTIVE: Vital Signs Period Temp Pulse Resp BP Sys/Echevarria Pulse Ox Last 24 Hr 98.2 F-98.8 F 81-114 18-30 100-149/27-79 97-100 GENERAL: Patient is sedated, intubated. NECK: Trachea midline, full range of motion, supple. LUNGS: + diffuse rhonchi bilaterally, decreased air entry HEART: Tachycardic, normal S1, S2 without murmur, rub or gallop. ABDOMEN: Soft, nontender, nondistended, normoactive bowel sounds. EXTREMITIES: 2+ pulses, warm, well-perfused, no edema. SKIN: Warm, dry, normal turgor, no rashes or lesions not Laboratory Results - last 24 hr 06/17/18 06/19/18 06/19/18 05:30 19:20 20:00 WBC 7.5 RBC 3.94 Hgb 9.3 L Hct 28.0 L MCV 71.1 L MCH 23.6 L MCHC 33.2 RDW 18.2 H Plt Count 37 L D MPV 9.2 Absolute Neuts (auto) 7.2 Total Counted 100 Neutrophils % No Result Required. Neutrophils % (Manual) 88.0 H Band Neutrophils % 4.0 Lymphocytes % No Result Required. Lymphocytes % (Manual) 6.0 L D Monocytes % Monocytes % (Manual) 2 L Eosinophils % Basophils % Nucleated RBC % 0 Toxic Granulation Occasional Platelet Estimate Significant decrease Platelet Comment Polychromasia Occasional Basophilic Stippling Occasional PT with INR INR Anticoagulation Therapy Puncture Site ABG pH ABG pCO2 at Pt Temp ABG pO2 at Pt Temp ABG HCO3 ABG O2 Sat (Measured) ABG O2 Content ABG Base Excess Timmy Test O2 Delivery Device Oxygen Flow Rate Vent Mode Vent Rate Mechanical Rate PEEP Pressure Support Vent Sodium 140 Potassium 2.9 L* Chloride 99 Carbon Dioxide 31 Anion Gap 11 BUN 34 H Creatinine 1.1 Creat Clearance w eGFR 50.84 Random Glucose 180 H Calcium 7.0 L Phosphorus 2.8 Magnesium 1.7 L Total Bilirubin 0.5 AST 35 ALT 43 Alkaline Phosphatase 92 Total Protein 4.0 L Albumin 1.4 L Glomerular Base Memb Ab 3 06/20/18 06/20/18 06/20/18 05:30 05:30 05:30 WBC 4.2 RBC 3.68 Hgb 8.8 L Hct 26.2 L MCV 71.2 L MCH 23.9 L MCHC 33.5 RDW 17.9 H Plt Count 32 L* MPV 9.4 Absolute Neuts (auto) 3.7 Total Counted Neutrophils % 89.3 H Neutrophils % (Manual) Band Neutrophils % Lymphocytes % 8.6 D Lymphocytes % (Manual) Monocytes % 1.5 L D Monocytes % (Manual) Eosinophils % 0.1 D Basophils % 0.5 D Nucleated RBC % 0 Toxic Granulation Platelet Estimate Decreased Platelet Comment No clotting detected Polychromasia Basophilic Stippling PT with INR 12.10 INR 1.03 Anticoagulation Therapy Puncture Site ABG pH ABG pCO2 at Pt Temp ABG pO2 at Pt Temp ABG HCO3 ABG O2 Sat (Measured) ABG O2 Content ABG Base Excess Timmy Test O2 Delivery Device Oxygen Flow Rate Vent Mode Vent Rate Mechanical Rate PEEP Pressure Support Vent Sodium 128 L Potassium 5.4 H Chloride 87 L Carbon Dioxide 24 Anion Gap 17 H BUN 129 H* Creatinine 3.5 H Creat Clearance w eGFR 13.37 Random Glucose 106 Calcium 7.5 L Phosphorus 10.0 H* Magnesium 2.0 Total Bilirubin 0.5 AST 32 ALT 35 Alkaline Phosphatase 70 Total Protein 3.2 L Albumin 1.0 L Glomerular Base Memb Ab 06/20/18 06/20/18 06/20/18 09:03 11:50 17:10 WBC 2.8 L RBC 3.73 Hgb 8.7 L Hct 26.4 L MCV 70.7 L MCH 23.2 L MCHC 32.8 RDW 17.8 H Plt Count 21 L* D MPV 10.2 Absolute Neuts (auto) Total Counted Neutrophils % Neutrophils % (Manual) Band Neutrophils % Lymphocytes % Lymphocytes % (Manual) Monocytes % Monocytes % (Manual) Eosinophils % Basophils % Nucleated RBC % Toxic Granulation Platelet Estimate Platelet Comment Polychromasia Basophilic Stippling PT with INR INR Anticoagulation Therapy No Result Required. Puncture Site Right radial ABG pH 7.23 L* ABG pCO2 at Pt Temp 58.4 H ABG pO2 at Pt Temp 121.0 H D ABG HCO3 23.6 ABG O2 Sat (Measured) 97.8 ABG O2 Content 12.6 L ABG Base Excess -3.8 L Timmy Test Positive O2 Delivery Device No Result Required. Oxygen Flow Rate 35 Vent Mode No Result Required. Vent Rate No Result Required. Mechanical Rate No Result Required. PEEP 8.0 Pressure Support Vent 300 Sodium 127 L Potassium 5.4 H Chloride 88 L Carbon Dioxide 24 Anion Gap 16 BUN 132 H* Creatinine 3.5 H Creat Clearance w eGFR 13.37 Random Glucose 96 Calcium 7.4 L Phosphorus Magnesium Total Bilirubin AST ALT Alkaline Phosphatase Total Protein Albumin Glomerular Base Memb Ab Active Medications Generic Name Dose Route Start Last Admin Trade Name Freq PRN Reason Stop Dose Admin Acetaminophen 650 mg 06/12/18 17:35 06/13/18 01:30 Tylenol - PO 650 mg Q6H PRN Administration PAIN LEVEL 6-10 Albuterol/Ipratropium 1 amp 06/16/18 14:00 06/20/18 17:45 Duoneb - NEB 1 amp Q4HPO [facility] Administration Bacitracin 1 applic 06/18/18 15:30 06/20/18 09:27 Bacitracin - TP Not Given DAILY [facility] Bacitracin 1 applic 06/20/18 10:00 06/20/18 09:26 Bacitracin - TP 1 applic DAILY [facility] Administration Calcium Acetate 667 mg 06/20/18 17:30 06/20/18 17:20 Phoslo - PO 667 mg TIDCM [facility] Administration Chlorhexidine Gluconate 1 applic 06/12/18 22:00 06/20/18 00:41 Hibiclens For Decolonization - TP 1 applic HS [facility] Administration Ergocalciferol 50,000 unit 06/15/18 10:00 06/15/18 10:59 Drisdol - PO Not Given Q7D@1000 [facility] Ferrous Sulfate 300 mg 06/16/18 10:00 06/20/18 09:21 Feosol GT 300 mg DAILY [facility] Administration Folic Acid 1 mg 06/13/18 10:00 06/20/18 09:23 Folic Acid - PO 1 mg DAILY [facility] Administration Propofol 1,000,000 mcg in 100 mls @ 1.935 mls/hr 06/15/18 01:45 06/20/18 16: 54 Diprivan - IVPB 25 mcg/kg/min TITR [facility] 9.675 mls/hr Administration Protocol 5 MCG/KG/MIN Fentanyl 500 mcg/ Dextrose 100 mls @ 10 mls/hr 06/15/18 01:45 06/20/18 08:04 IVPB 75 mcg/hr TITR [facility] 15 mls/hr Administration Protocol 50 MCG/HR Minocycline HCl 100 mg/ 100 mls @ 100 mls/hr 06/17/18 15:00 06/20/18 15:28 Dextrose IVPB 100 mls/hr Q12H [facility] Administration Vasopressin 50 units/ Sodium 100 mls @ 4 mls/hr 06/18/18 17:25 06/20/18 18:03 Chloride IVPB 3 units/hr ASDIR [facility] 6 mls/hr Administration Protocol 2 UNITS/HR Norepinephrine Bitartrate 8, 508 mls @ 57.15 mls/hr 06/18/18 21:15 06/20/18 11:00 000 mcg/ Sodium Chloride IV 12 mcg/min ASDIR [facility] 45.72 mls/hr Titration Protocol 15 MCG/MIN Azithromycin 500 mg in 250 mls @ 250 mls/hr 06/20/18 11:00 06/20/18 12:18 Zithromax 500mg Ivpb (Pre-Docked) IVPB 06/21/18 10:59 Not Given DAILY [facility] Sodium Bicarbonate 75 meq/ 1,075 mls @ 75 mls/hr 06/20/18 14:45 06/20/18 15: 26 Sodium Chloride IV 75 mls/hr Q14H [facility] Administration Methylprednisolone Sodium Succinate 40 mg 06/20/18 11:22 06/20/18 17:20 Solu-Medrol - IVPUSH 40 mg Q8H-IV [facility] Administration Montelukast Sodium 10 mg 06/12/18 22:00 06/19/18 22:00 Singulair - PO 10 mg HS [facility] Administration Polyethylene Glycol 17 gm 06/12/18 17:35 Miralax (For Daily Use) - PO DAILY PRN CONSTIPATION Ranitidine HCl 150 mg 06/16/18 11:30 06/20/18 09:21 Zantac Oral Solution - GT 150 mg BID [facility] Administration Roflumilast 500 mcg 06/13/18 10:00 06/20/18 09:25 Daliresp - PO 500 mcg DAILY [facility] Administration Scopolamine HBr 1 patch 06/18/18 10:30 06/18/18 11:00 Transderm-Scop - TD 1 patch Q72H [facility] Administration Imaging: Chest X-Ray (05/27/18): No significant interval change. Persistent bilateral increased interstitial markings. Differential diagnosis again includes chronic interstitial lung disease. Cannot rule out noncardiogenic mild pulmonary venous congestion or interstitial infiltrates. Chest X-ray (05/30/18): No acute pathology or significant change. Chest CT scan without contrast (05/31/18): Moderately severe COPD with extensive bilateral bronchiectasis. These findings are unchanged since a previous study of 02/07/18. There is no evidence of acute pathology within the chest. CXR (06/06/18) 2 views of the some minimal degenerative changes with wedging. The soft tissues are intact. The chest reveal a normal-sized heart, normal knob and normal genesis. There are some coarse lung changes. There may be some linear atelectasis/density by the left heart border. Since the prior study 05/30/18, the density by the left heart border has become apparent. This most likely represents a focal area of atelectasis. CXR (06/10/18): New pulmonary consolidation medial aspect of the left upper lung zone obscuring aortic arch. No pleural effusion, or pneumothorax seen. No evidence of vascular congestive changes. CXR (06/13/18): Resolving segmental left upper lobe pneumonia. Left lower lobe pneumonia unchanged. CXR (06/14/18): No significant change in left sided infiltrates. ASSESSMENT/PLAN: Patient is a 58 year old female who presented with shortness of breath and found to be in COPD exacerbation. #Acute Respiratory Distress Syndrome - Patient intubated due to respiratory distress - levophed + vasopressin, titrate to maintain MAP>65 - Decrease Solu-medrol 40 mg IV q8 - Duonebs q4 STA - Daliresp GT - Nasogastric tube placed. - propofol/fentanyl titrated to prevent bucking ventilator - CXR and ABG daily #Hospital acquired pneumonia - CXR - worsening - Sputum culture - Acinetobacter baumanii/haemol. - ID (Dr. Tao) consulted. Recommendations appreciated. - Polymyxin, minocycline, Azithromax -- renally dosed - Must be on continuous IV fluids due to Nephrotoxic antibiotics. #RAOUL on CKD: -Renal ultrasound done. -Nephrology (Dr. Marquez) consulted. Recommendations appreciated. -post-dialysis Bun/Cr 129/3.5 -will re-evaluate tomorrow for further dialysis -Maintain daily and monitor Urine output -Renal dose meds for a GFR of 16 -Potassium treated medically -Renal US - suggestive of CKD -FeNa 0.8%, likely pre-renal 2/2 hypotensio -Continue pressors to maintain MAP of 65 -14 [place] catheter placed by urology #Hyperkalemia/hyperphosphatemia: -K 5.4, Ph 10 this AM -kayexelate and phoslo today. #Acute on Chronic COPD exacerbation : - may be 2/2 CAP vs inhaled chemicals (house paint) - Pulmonary Consult. Recs appreciated: - Continue NIPPV - Increase solu-medrol dose 40mg to q6h - Duonebs QID - Albuterol PRN - Add Daliresp (500mcg daily) - Symbicort not given. Pt reports allergy to symbicort. - Keep O2 satn >90% - Chest PT BID - Pt has frequent exacerbations, may need to be on chronic low dose steroids at home. #Left-sided Chest Pain: likely pleuritic - may be empyema - further work-up with chest CT once patient is stable - unlikely cardiac in nature - Tylenol PRN for pain. #Microcytic Anemia: Hgb stable at 8 - Continue Fe supplements and folate - will trend CBC, transfuse with Hgb<7 #Thrombocytopenia: plt 32 - likely multifactorial; r/o DIC - PT - 13.3, INR 1.18, Fibrinogen 899, D-dimer 1638 - Pending SPEP, globulin studies, anti-Plt ABs, broad immunologic panels, TFTs - Hold Lovenox - will monitor closely - Transfuse platelets if <20K - Hematology (Dr. Covington) consulted. Recommendations appreciated. #Hypertension - Hypotensive today. Hold Cardizem 30mg q6h - Add Cardizem IV PRN for hypertension/tachycardia - IV fluids given. - Monitor BP closely #FEN - 1/2NS+ 2amps (100 meq) bicarb - routine bmp monitoring - Nepro GT #Prophylaxis - Hold Lovenox for now. Patient has low platelet count. #Disposition - To ICU for closer monitoring. Visit type - Emergency Visit Emergency Visit: Yes ED Registration Date: 05/27/18 Care time: The patient presented to the Emergency Department on the above date and was hospitalized for further evaluation of their emergent condition. - New Patient This patient is new to me today: Yes Date on this admission: 06/21/18 - Critical Care Critical Care patient: No
[2018-06-20] MEDS: SODIUM CHLORIDE 0.45% IV SCH (21:54)
[2018-06-20] MEDS: NOREPINEPHRINE BITARTRATE IV SCH (21:54)
[2018-06-20] MEDS: MONTELUKAST NA 10 MG TABLET PO SCH (21:56)
[2018-06-21 00:07] LABS: ATYPICAL pANCA <1:20 titer (Neg:<1:20); C-ANCA <1:20 titer (Neg:<1:20); P-ANCA <1:20 titer (Neg:<1:20)
[2018-06-21] MEDS ORDERED: PT OWN MED DRAWER 7, Y5N ONE ×3 (01:57→16:18)
[2018-06-21] MEDS: PROPOFOL 1,000,000 MCG/100 ML VIAL IVPB SCH ×2 (02:29→22:53)
[2018-06-21] MEDS: FENTANYL INJECTION 500 MCG in DEXTROSE 5%-WATER - 90 ML IVPB SCH (02:30)
[2018-06-21] MEDS: ALBUTEROL SO4 2.5/IPRATROPIUM 0.5 INH SOL 3 ML VIAL.NEB. NEB SCH ×6 (02:31→22:45)
[2018-06-21] MEDS: methylPREDNISolone NA SUCC 40 MG/1 ML VIAL IVPUSH SCH ×2 (02:32→09:27)
[2018-06-21] MEDS: SODIUM CHLORIDE 0.45% 1,000 ML with SODIUM BICARBONATE 8.4% - 75 MEQ IV SCH ×3 (02:33→22:52)
[2018-06-21] MEDS ORDERED: VASOPRESSIN 20 UNITS/ML VIAL IV ONE ×2 (02:49→21:36)
[2018-06-21] MEDS: DEXTROSE 5% IVPB SCH ×2 (03:00→16:35)
[2018-06-21] MEDS: WATER IVPB SCH ×2 (03:00→16:35)
[2018-06-21] MEDS: MINOCYCLINE HCL IVPB SCH ×2 (03:00→16:35)
[2018-06-21 05:57] LABS: ALLENS TEST POSITIVE; ARTERIAL BLOOD GAS BASE EXCESS -1.9 meq/l (-2-2)
[2018-06-21 05:58] LABS: ARTERIAL BLOOD GAS PCO2 54.6 mmHg (35-45); ARTERIAL BLOOD GAS pH 7.27 (7.35-7.45)
[2018-06-21 06:30] LABS: BASO % 0.1 % (0-2.0); EOS % 0.2 % (0-4.5); HEMATOCRIT 24.2 % (32.4-45.2); LYMPH % 26.9 % (8-40); MCH 23.3 pg (25.7-33.7); MCHC 33.2 g/dl (32.0-36.0); MEAN CELL VOLUME 70.2 fl (80-96); MEAN PLT VOLUME 9.4 fl (7.5-11.1); NEUT % 71.8 % (42.8-82.8); RBC 3.45 M/mm3 (3.60-5.2); RDW 18.3 % (11.6-15.6); WHITE BLOOD COUNT 2.6 K/mm3 (4.0-10.0)
[2018-06-21 06:55] LABS: INR 1.03 (0.83-1.09); PROTHROMBIN TIME (PATIENT) 12.1 SEC (9.7-13.0)
[2018-06-21 06:58] LABS: ACTIVATED PTT 41.3 SECONDS (25.2-36.5)
[2018-06-21] MEDS ORDERED: ALBUTEROL SO4 2.5/IPRATROPIUM 0.5 INH SOL 3 ML VIAL.NEB. NEB PRN (07:21)
[2018-06-21 07:30] LABS: PLATELET COUNT 11 K/MM3 (134-434)
[2018-06-21 07:57] LABS: ALBUMIN 0.8 g/dl (3.4-5.0); ALK PHOS 63 U/L (45-117); ANION GAP 17 MMOL/L (8-16); BILIRUBIN,TOTAL 0.5 mg/dL (0.2-1); CALCIUM 7.2 mg/dL (8.5-10.1); CHLORIDE 85 mmol/L (98-107); CO2 24 mmol/L (21-32); CREATININE 3.6 mg/dL (0.55-1.3); GLUCOSE,RANDOM 94 mg/dL (74-106); MAGNESIUM 2.1 mg/dL (1.8-2.4); POTASSIUM 5.7 mmol/L (3.5-5.1); SGOT/AST 45 U/L (15-37); SGPT/ALT 42 U/L (13-61); SODIUM 126 mmol/L (136-145); TOT PROT 2.7 g/dl (6.4-8.2)
[2018-06-21 08:03] LABS: BLOOD UREA NITROGEN 140 mg/dL (7-18); PHOSPHOROUS 11.3 mg/dL (2.5-4.9)
[2018-06-21] MEDS ORDERED: fentaNYL CITRATE 250 MCG/5 ML VIAL ONE ×2 (08:05→16:36)
[2018-06-21] MEDS ORDERED: INSULIN REGULAR HUMAN 100 UNITS/ML *VIAL IVPUSH ONE (08:22)
[2018-06-21] MEDS ORDERED: CALCIUM GLUCONATE 10% - 1,000 MG/10 ML VIAL IVPB ONE (08:23)
[2018-06-21] MEDS ORDERED: DEXTROSE 50%-WATER - 25 GM/50 ML VIAL IVPUSH ONE (08:23)
[2018-06-21] MEDS ORDERED: DEXTROSE 50%-WATER 25 GM/50 ML DISP.SYRIN ONE (08:50)
[2018-06-21] MEDS: RANITIDINE HCL 150 MG/10 ML UNIT-DOSE GT SCH (09:27)
[2018-06-21] MEDS: ROFLUMILAST 500 MCG TABLET PO SCH (09:27)
[2018-06-21] MEDS: FOLIC ACID 1 MG TABLET (FP) PO SCH (09:27)
[2018-06-21] MEDS: VASOPRESSIN 50 UNITS in SODIUM CHLORIDE 97.5 ML IVPB SCH (09:28)
[2018-06-21] MEDS: BACITRACIN 15 GM TUBE TOPICAL OINTMENT TP SCH ×2 (09:28)
[2018-06-21] MEDS: FERROUS SO4 300 MG/5 ML ORAL SOLN UNIT DOSE CUPS GT SCH (09:36)
[2018-06-21] MEDS: SCOPOLAMINE HYDROBROMIDE 1 PATCH PATCH.TD72 TD SCH (10:07)
[2018-06-21] MEDS ORDERED: DESMOPRESSIN ACETATE 4 MCG/ML AMP IVPB ONE (10:45)
--- NOTE | 2018-06-21 11:04 | PN ---
Physical Exam: SUBJECTIVE: Patient seen and examined at bedside, intubated and sedated. Overnight desaturated and FiO2 was increased to 60, now at 45. Worsening hypotension required increase in pressors to Levo 22, Vaso 6. OBJECTIVE: Vital Signs Period Temp Pulse Resp BP Sys/Echevarria Pulse Ox Last 24 Hr 98.3 F-98.8 F 81-116 20-24 90-149/24-75 92-94 GENERAL: Intubated and sedated on propofol/fentanyl LUNGS: Decreased breath sounds and crackles b/l, mechanically ventilated HEART: S1S2 no m/r/g ABDOMEN: increasing firmness, worsening distention, purpura expanding EXTREMITIES: warm, non-pitting edema x 4 extremities upper>lower NEUROLOGICAL: unable to assess SKIN: Warm, dry Laboratory Results - last 24 hr 06/17/18 06/20/18 06/20/18 05:30 11:50 17:10 WBC 2.8 L RBC 3.73 Hgb 8.7 L Hct 26.4 L MCV 70.7 L MCH 23.2 L MCHC 32.8 RDW 17.8 H Plt Count 21 L* D MPV 10.2 Absolute Neuts (auto) Neutrophils % Lymphocytes % Monocytes % Eosinophils % Basophils % Nucleated RBC % PT with INR INR PTT (Actin FS) Anticoagulation Therapy No Result Required. Puncture Site Right radial ABG pH 7.23 L* ABG pCO2 at Pt Temp 58.4 H ABG pO2 at Pt Temp 121.0 H D ABG HCO3 23.6 ABG O2 Sat (Measured) 97.8 ABG O2 Content 12.6 L ABG Base Excess -3.8 L Timmy Test Positive O2 Delivery Device No Result Required. Oxygen Flow Rate 35 Vent Mode No Result Required. Vent Rate No Result Required. Mechanical Rate No Result Required. PEEP 8.0 Pressure Support Vent 300 Sodium Potassium Chloride Carbon Dioxide Anion Gap BUN Creatinine Creat Clearance w eGFR Random Glucose Calcium Phosphorus Magnesium Total Bilirubin AST ALT Alkaline Phosphatase Total Protein Total Protein (PEP) 3.5 L Albumin Albumin (PEP) 1.5 L Globulin 2.0 L Albumin/Globulin Ratio 0.8 Beta Globulins 0.6 L MARYANNE M-Dwaine Not observed c-ANCA <1:20 Proteinase 3 (PR3) <3.5 p-ANCA <1:20 Atypical p-ANCA <1:20 Myeloperoxidase Ab <9.0 1006/21/18 06/21/18 05:30 05:30 05:30 WBC 2.6 L RBC 3.45 L Hgb 8.0 L Hct 24.2 L MCV 70.2 L MCH 23.3 L MCHC 33.2 RDW 18.3 H Plt Count 11 L* D MPV 9.4 Absolute Neuts (auto) 1.9 Neutrophils % 71.8 Lymphocytes % 26.9 D Monocytes % 1.0 L Eosinophils % 0.2 D Basophils % 0.1 Nucleated RBC % 0 PT with INR 12.10 INR 1.03 PTT (Actin FS) 41.3 H Anticoagulation Therapy Puncture Site ABG pH ABG pCO2 at Pt Temp ABG pO2 at Pt Temp ABG HCO3 ABG O2 Sat (Measured) ABG O2 Content ABG Base Excess Timmy Test O2 Delivery Device Oxygen Flow Rate Vent Mode Vent Rate Mechanical Rate PEEP Pressure Support Vent Sodium 126 L Potassium 5.7 H Chloride 85 L Carbon Dioxide 24 Anion Gap 17 H BUN 140 H* Creatinine 3.6 H Creat Clearance w eGFR 12.94 Random Glucose 94 Calcium 7.2 L Phosphorus 11.3 H* Magnesium 2.1 Total Bilirubin 0.5 AST 45 H ALT 42 Alkaline Phosphatase 63 Total Protein 2.7 L Total Protein (PEP) Albumin 0.8 L Albumin (PEP) Globulin Albumin/Globulin Ratio Beta Globulins MARYANNE M-Dwaine c-ANCA Proteinase 3 (PR3) p-ANCA Atypical p-ANCA Myeloperoxidase Ab 06/21/18 06:00 WBC RBC Hgb Hct MCV MCH MCHC RDW Plt Count MPV Absolute Neuts (auto) Neutrophils % Lymphocytes % Monocytes % Eosinophils % Basophils % Nucleated RBC % PT with INR INR PTT (Actin FS) Anticoagulation Therapy No Result Required. Puncture Site Right radial ABG pH 7.27 L ABG pCO2 at Pt Temp 54.6 H ABG pO2 at Pt Temp 163.0 H* ABG HCO3 24.5 ABG O2 Sat (Measured) 99.0 H ABG O2 Content 11.3 L ABG Base Excess -1.9 Timmy Test Positive O2 Delivery Device Mech vent Oxygen Flow Rate 60% Vent Mode A/c Vent Rate 22 Mechanical Rate Yes PEEP 5.0 Pressure Support Vent 300 Sodium Potassium Chloride Carbon Dioxide Anion Gap BUN Creatinine Creat Clearance w eGFR Random Glucose Calcium Phosphorus Magnesium Total Bilirubin AST ALT Alkaline Phosphatase Total Protein Total Protein (PEP) Albumin Albumin (PEP) Globulin Albumin/Globulin Ratio Beta Globulins MARYANNE M-Dwaine c-ANCA Proteinase 3 (PR3) p-ANCA Atypical p-ANCA Myeloperoxidase Ab Active Medications Generic Name Dose Route Start Last Admin Trade Name Andrea PRN Reason Stop Dose Admin Acetaminophen 650 mg 06/12/18 17:35 06/13/18 01:30 Tylenol - PO 650 mg Q6H PRN Administration PAIN LEVEL 6-10 Albuterol Sulfate 1 amp 06/21/18 08:25 Ventolin 0.083% Nebulizer Soln - NEB Q2H PRN SHORT OF BREATH/WHEEZING Albuterol/Ipratropium 1 amp 06/16/18 14:00 06/21/18 05:45 Duoneb - NEB 1 amp Q4HPO [facility] Administration Bacitracin 1 applic 06/18/18 15:30 06/21/18 09:28 Bacitracin - TP 1 applic DAILY [facility] Administration Bacitracin 1 applic 06/20/18 10:00 06/21/18 09:28 Bacitracin - TP 1 applic DAILY [facility] Administration Calcium Acetate 1,334 mg 06/21/18 08:21 Phoslo - PO TIDCM [facility] Chlorhexidine Gluconate 1 applic 06/12/18 22:00 06/20/18 21:56 Hibiclens For Decolonization - TP 1 applic HS [facility] Administration Ergocalciferol 50,000 unit 06/15/18 10:00 06/15/18 10:59 Drisdol - PO Not Given Q7D@1000 [facility] Ferrous Sulfate 300 mg 06/16/18 10:00 06/21/18 09:36 Feosol GT 300 mg DAILY [facility] Administration Fludrocortisone Acetate 0.05 mg 06/21/18 10:00 Florinef - GT DAILY [facility] Folic Acid 1 mg 06/13/18 10:00 06/21/18 09:27 Folic Acid - PO 1 mg DAILY [facility] Administration Hydrocortisone Sodium Succinate 100 mg 06/21/18 18:00 Solu-Cortef - IVPUSH Q8H-IV [facility] Propofol 1,000,000 mcg in 100 mls @ 1.935 mls/hr 06/15/18 01:45 06/21/18 02: 29 Diprivan - IVPB Not Given TITR [facility] Protocol 5 MCG/KG/MIN Fentanyl 500 mcg/ Dextrose 100 mls @ 10 mls/hr 06/15/18 01:45 06/21/18 02:30 IVPB Not Given TITR [facility] Protocol 50 MCG/HR Minocycline HCl 100 mg/ 100 mls @ 100 mls/hr 06/17/18 15:00 06/21/18 03:00 Dextrose IVPB 100 mls/hr Q12H [facility] Administration Vasopressin 50 units/ Sodium 100 mls @ 4 mls/hr 06/18/18 17:25 06/21/18 03:00 Chloride IVPB 5 units/hr ASDIR [facility] 10 mls/hr Titration Protocol 2 UNITS/HR Norepinephrine Bitartrate 8, 508 mls @ 57.15 mls/hr 06/18/18 21:15 06/21/18 05:00 000 mcg/ Sodium Chloride IV 20 mcg/min ASDIR [facility] 76.2 mls/hr Titration Protocol 15 MCG/MIN Sodium Bicarbonate 75 meq/ 1,075 mls @ 75 mls/hr 06/20/18 14:45 06/21/18 05: 32 Sodium Chloride IV Not Given Q14H [facility] Famotidine/Sodium Chloride 20 mg in 50 mls @ 100 mls/hr 06/21/18 10:30 Pepcid 20 Mg Premixed Ivpb - IVPB BID [facility] Montelukast Sodium 10 mg 06/12/18 22:00 06/20/18 21:56 Singulair - PO 10 mg HS [facility] Administration Polyethylene Glycol 17 gm 06/12/18 17:35 Miralax (For Daily Use) - PO DAILY PRN CONSTIPATION Roflumilast 500 mcg 06/13/18 10:00 06/21/18 09:27 Daliresp - PO 500 mcg DAILY [facility] Administration Scopolamine HBr 1 patch 06/18/18 10:30 06/21/18 10:07 Transderm-Scop - TD 1 patch Q72H [facility] Administration ASSESSMENT/PLAN: 58 y/o F w/PMHx COPD (on home O2 3L), chronic anemia, HTN initially admitted to [facility] for COPD exacerbation, hospital course complicated by HAP, progressed to ARDS, now intubated in ICU #ARDS and septic shock 2/2 HAP -ventilated: vent setting to maintain >90 O2 sat -lungs stable/worsening on CXR -levophed + vasopressin at max titration with ongoing hypotension, MAP in 50s -hydrocortisone shock dose 100q8 -solumedrol d/c'd -duonebs standing q4, albuterol q4 PRN -nepro held d/t residuals -propofol/fentanyl titrated to prevent bucking ventilator -CXR daily -ABG daily -repeat sputum Cx 06/15 +acinetobacter -Per ID, minocycline/zithromax +/- polymyxin dosing d/w nephro -must be on fluids d/t nephrotoxic agents -IVF: 1/2NS+ 2amps (100 meq) bicarb -LFTs additionally worsening #RAOUL/ARF -Cr and lytes worsening -emergent dialysis today pending plt transfusion -IVF per nephro reccs: 1/2NS+ 2amps (100 meq) bicarb -monitor closely d/t nephrotoxic agents #thrombocytopenia/anemia -AM Hb 8.0, Plt decr to 11 -3U Plts stat transfusion and 2nd dose DDAVP -repeat PM CBC -likely multifactorial d/t sepsis, ARDS, use of Lovenox, use of Zosyn -purpura over abdomen expanding -PT/INR wnl, PTT elevated to 41.3, awaiting heme reccs re: FFP -anti-Plt ABs neg (HIT r/o) -immunologic studies negative -AC held -monitor CBC closely, transfusion threshhold 7 for PRBC, 20 for Plt #hyperkalemia/hyperphosphatemia -K 5.7, Ph 11.3 this AM -10 U insulin, D50, Ca Gluconate -doubled Phoslo dose -dialysis following Plt transfusion FEN -1/2NS+ 2amps (100 meq) bicarb -CMP in AM -feeds held d/t residuals #PPx - DVT: SCDs - GI: Pepcid 20 IV BID #Dispo -family aware of critical status - ICU Visit type - Emergency Visit Emergency Visit: No - New Patient This patient is new to me today: No - Critical Care Critical Care patient: Yes Total Critical Care Time (in minutes): 40 Critical Care Statement: The care of this patient involved high complexity decision making to prevent further life threatening deterioration of the patient 's condition and/or to evaluate & treat vital organ system(s) failure or risk of failure.
[2018-06-21] MEDS: FAMOTIDINE 20 MG/50 ML IVPB 20 MG/50 ML MG IVPB SCH ×2 (11:20→22:53)
--- NOTE | 2018-06-21 12:48 | PN ---
Teaching Attending Note Name of Resident: Long Petersen ATTENDING PHYSICIAN STATEMENT I saw and evaluated the patient. I reviewed the resident's note and discussed the case with the resident. I agree with the resident's findings and plan as documented. SUBJECTIVE: Pt seen and examined in the ICU. Remains intubated, sedated. On increased pressor requirements, started on stress does steroids. Hypoxic overnight requiring increase in Fio2. OBJECTIVE: Vital Signs Period Temp Pulse Resp BP Sys/Echevarria Pulse Ox Last 24 Hr 98.3 F-98.8 F 81-116 21-24 90-126/24-75 91-95 Intake & Output 06/18/18 06/19/18 06/20/18 06/21/18 23:59 23:59 23:59 23:59 Intake Total 6102 1777 4530 2172 Output Total 850 1800 725 125 Balance 5252 -23 3805 2047 Weight 76.345 kg 77.8 kg 80.031 kg 82.667 kg Gen: intubated, sedated, tachypneic Heart: RRR Lung: bilateral rhonchi Abd: soft, nontender, LLQ hematoma Ext: + edema CBC, BMP 06/21/18 05:30 06/21/18 05:30 Active Medications Acetaminophen (Tylenol -) 650 mg PO Q6H PRN PRN Reason: PAIN LEVEL 6-10 Last Admin: 06/13/18 01:30 Dose: 650 mg Albuterol Sulfate (Ventolin 0.083% Nebulizer Soln -) 1 amp NEB Q2H PRN PRN Reason: SHORT OF BREATH/WHEEZING Albuterol/Ipratropium (Duoneb -) 1 amp NEB Q4HPO [facility] Last Admin: 06/21/18 05:45 Dose: 1 amp Bacitracin (Bacitracin -) 1 applic TP DAILY [facility] Last Admin: 06/21/18 09:28 Dose: 1 applic Bacitracin (Bacitracin -) 1 applic TP DAILY [facility] Last Admin: 06/21/18 09:28 Dose: 1 applic Calcium Acetate (Phoslo -) 1,334 mg PO TIDCM [facility] Chlorhexidine Gluconate (Hibiclens For Decolonization -) 1 applic TP HS [facility] Last Admin: 06/20/18 21:56 Dose: 1 applic Ergocalciferol (Drisdol -) 50,000 unit PO Q7D@1000 [facility] Last Admin: 06/15/18 10:59 Dose: Not Given Ferrous Sulfate (Feosol) 300 mg GT DAILY [facility] Last Admin: 06/21/18 09:36 Dose: 300 mg Fludrocortisone Acetate (Florinef -) 0.05 mg GT DAILY [facility] Folic Acid (Folic Acid -) 1 mg PO DAILY [facility] Last Admin: 06/21/18 09:27 Dose: 1 mg Hydrocortisone Sodium Succinate (Solu-Cortef -) 100 mg IVPUSH Q8H-IV [facility] Propofol (Diprivan -) 1,000,000 mcg in 100 mls @ 1.935 mls/hr IVPB TITR [facility]ACH[facility]; Protocol Last Admin: 06/21/18 02:29 Dose: Not Given Fentanyl 500 mcg/ Dextrose 100 mls @ 10 mls/hr IVPB TITR [facility]; Protocol Last Admin: 06/21/18 02:30 Dose: Not Given Minocycline HCl 100 mg/ (Dextrose) 100 mls @ 100 mls/hr IVPB Q12H [facility] Last Admin: 06/21/18 03:00 Dose: 100 mls/hr Vasopressin 50 units/ Sodium (Chloride) 100 mls @ 4 mls/hr IVPB ASDIR [facility]; Protocol Last Titration: 06/21/18 03:00 Dose: 5 units/hr, 10 mls/hr Norepinephrine Bitartrate 8, (000 mcg/ Sodium Chloride) 508 mls @ 57.15 mls/hr IV ASDIR [facility]ACH[facility]; Protocol Last Titration: 06/21/18 05:00 Dose: 20 mcg/min, 76.2 mls/hr Sodium Bicarbonate 75 meq/ (Sodium Chloride) 1,075 mls @ 75 mls/hr IV Q14H [facility] Last Admin: 06/21/18 05:32 Dose: Not Given Famotidine/Sodium Chloride (Pepcid 20 Mg Premixed Ivpb -) 20 mg in 50 mls @ 100 mls/hr IVPB BID [facility] Last Admin: 06/21/18 11:20 Dose: 100 mls/hr Montelukast Sodium (Singulair -) 10 mg PO HS [facility] Last Admin: 06/20/18 21:56 Dose: 10 mg Polyethylene Glycol (Miralax (For Daily Use) -) 17 gm PO DAILY PRN PRN Reason: CONSTIPATION Roflumilast (Daliresp -) 500 mcg PO DAILY [facility] Last Admin: 06/21/18 09:27 Dose: 500 mcg Scopolamine HBr (Transderm-Scop -) 1 patch TD Q72H [facility] Last Admin: 06/21/18 10:07 Dose: 1 patch ASSESSMENT AND PLAN: Acute on Chronic Hypoxic and Hypercapneic Respiratory Failure Pneumonia Septic Shock Acute Kidney Injury Acute COPD/Bronchiectasis Exacerbation ARDS HTN - continue antibiotics per ID - IVF to keep CVP 8-12 - titrate pressors to maintain MAP >65 - monitor urine output, creatinine - HD per renal, will need to place another HD catheter - inhaled bronchodilators standing and PRN - stress dose steroids - monitor Ppeak, Pplat - low tidal volume ventilation 6cc/kg/IBW - keep Pplat <30 - taper Fio2 to keep Spo2 >90% - monitor ABG - daily sedation vacations to assess mental status - enteral feeds as tolerated - DVT/GI prophylaxis - continue ICU monitoring - prognosis guarded, discussed with sons at bedside critical care time spent in reviewing chart, evaluating patient and formulating plan 35 min
--- NOTE | 2018-06-21 14:02 | PN ---
Progress Note (short form) - Note Progress Note: increased pressors doing poorly bloody secretions in ET tube platelet transfusion today Vital Signs Period Temp Pulse Resp BP Sys/Echevarria Pulse Ox Last 24 Hr 98.3 F-98.8 F 81-116 21-24 90-126/24-75 91-95 intubated cor-rrr lungs decreased bs at bases abd firm, +ecchymoses LLQ ext +edema CBC, BMP 06/21/18 05:30 06/21/18 05:30 Microbiology 06/11/18 17:49 Sputum - Expectorated Gram Stain - Final 06/11/18 17:49 Sputum - Expectorated Sputum Culture - Final Acinetobacter Baumannii/Haemol 06/15/18 09:30 Blood - Peripheral Venous Blood Culture - Final NO GROWTH AFTER 5 DAYS INCUBATION 06/15/18 09:32 Blood - Peripheral Venous Blood Culture - Final NO GROWTH AFTER 5 DAYS INCUBATION 06/15/18 04:00 Sputum - Endotrachea Suction/Ventilator Gram Stain - Final 06/15/18 04:00 Sputum - Endotrachea Suction/Ventilator Sputum Culture - Final Acinetobacter Baumannii/Haemol 06/10/18 18:00 Blood - Peripheral Venous Blood Culture - Final NO GROWTH AFTER 5 DAYS INCUBATION 06/10/18 17:00 Blood - Peripheral Venous Blood Culture - Final NO GROWTH AFTER 5 DAYS INCUBATION 06/12/18 15:00 Stool Clostridium difficile Antigen (BENITO) - Final 06/12/18 15:00 Stool Clostridium difficile Toxin Assay - Final 05/27/18 17:42 Blood - Peripheral Venous Blood Culture - Final NO GROWTH AFTER 5 DAYS INCUBATION 05/27/18 17:42 Blood - Peripheral Venous Blood Culture - Final NO GROWTH AFTER 5 DAYS INCUBATION Current Medications Acetaminophen (Tylenol -) 650 mg PO Q6H PRN PRN Reason: PAIN LEVEL 6-10 Last Admin: 06/13/18 01:30 Dose: 650 mg Albuterol Sulfate (Ventolin 0.083% Nebulizer Soln -) 1 amp NEB Q2H PRN PRN Reason: SHORT OF BREATH/WHEEZING Albuterol/Ipratropium (Duoneb -) 1 amp NEB Q4HPO [facility] Last Admin: 06/21/18 09:00 Dose: 1 amp Bacitracin (Bacitracin -) 1 applic TP DAILY [facility] Last Admin: 06/21/18 09:28 Dose: 1 applic Bacitracin (Bacitracin -) 1 applic TP DAILY [facility] Last Admin: 06/21/18 09:28 Dose: 1 applic Calcium Acetate (Phoslo -) 1,334 mg PO TIDCM [facility] Chlorhexidine Gluconate (Hibiclens For Decolonization -) 1 applic TP HS [facility] Last Admin: 06/20/18 21:56 Dose: 1 applic Ergocalciferol (Drisdol -) 50,000 unit PO Q7D@1000 [facility] Last Admin: 06/15/18 10:59 Dose: Not Given Ferrous Sulfate (Feosol) 300 mg GT DAILY [facility] Last Admin: 06/21/18 09:36 Dose: 300 mg Fludrocortisone Acetate (Florinef -) 0.05 mg GT DAILY [facility] Folic Acid (Folic Acid -) 1 mg PO DAILY [facility] Last Admin: 06/21/18 09:27 Dose: 1 mg Hydrocortisone Sodium Succinate (Solu-Cortef -) 100 mg IVPUSH Q8H-IV [facility] Propofol (Diprivan -) 1,000,000 mcg in 100 mls @ 1.935 mls/hr IVPB TITR [facility]; Protocol Last Admin: 06/21/18 02:29 Dose: Not Given Fentanyl 500 mcg/ Dextrose 100 mls @ 10 mls/hr IVPB TITR [facility]; Protocol Last Admin: 06/21/18 02:30 Dose: Not Given Minocycline HCl 100 mg/ (Dextrose) 100 mls @ 100 mls/hr IVPB Q12H [facility] Last Admin: 06/21/18 03:00 Dose: 100 mls/hr Vasopressin 50 units/ Sodium (Chloride) 100 mls @ 4 mls/hr IVPB ASDIR [facility]; Protocol Last Titration: 06/21/18 03:00 Dose: 5 units/hr, 10 mls/hr Norepinephrine Bitartrate 8, (000 mcg/ Sodium Chloride) 508 mls @ 57.15 mls/hr IV ASDIR [facility]; Protocol Last Titration: 06/21/18 05:00 Dose: 20 mcg/min, 76.2 mls/hr Sodium Bicarbonate 75 meq/ (Sodium Chloride) 1,075 mls @ 75 mls/hr IV Q14H [facility] Last Admin: 06/21/18 05:32 Dose: Not Given Famotidine/Sodium Chloride (Pepcid 20 Mg Premixed Ivpb -) 20 mg in 50 mls @ 100 mls/hr IVPB BID [facility] Last Admin: 06/21/18 11:20 Dose: 100 mls/hr Montelukast Sodium (Singulair -) 10 mg PO HS [facility] Last Admin: 06/20/18 21:56 Dose: 10 mg Polyethylene Glycol (Miralax (For Daily Use) -) 17 gm PO DAILY PRN PRN Reason: CONSTIPATION Roflumilast (Daliresp -) 500 mcg PO DAILY [facility] Last Admin: 06/21/18 09:27 Dose: 500 mcg Scopolamine HBr (Transderm-Scop -) 1 patch TD Q72H [facility] Last Admin: 06/21/18 10:07 Dose: 1 patch a/p hypoxemic respiratory failure sepsis- increasing pressor requrements HAP with multidrug resistant acinetobacter thrombocytopenia/leukopenia giovanna worsening-for HD today bronchiectasis with poor lung function at baseline now on polymyxin/minocycline/zithromax strict contact isolation repeat blood cultures today add vancomycin 1 gram cover for MRSA (empiric) redose polymyxin after HD today d/w ICU staff doing poorly overall prognosis poor Problem List - Problems (1) Sepsis Code(s): A41.9 - SEPSIS, UNSPECIFIED ORGANISM (2) Acute on chronic respiratory failure with hypoxia and hypercapnia Code(s): J96.21 - ACUTE AND CHRONIC RESPIRATORY FAILURE WITH HYPOXIA; J96.22 - ACUTE AND CHRONIC RESPIRATORY FAILURE WITH HYPERCAPNIA (3) Hospital acquired PNA Code(s): J18.9 - PNEUMONIA, UNSPECIFIED ORGANISM
[2018-06-21] MEDS: CALCIUM ACETATE 667 MG CAPSULE (FP) PO SCH ×2 (14:13→18:33)
--- NOTE | 2018-06-21 14:17 | PN ---
Physical Exam: SUBJECTIVE: Patient seen and examined at bedside this morning. Intubated and sedated. Patient became hypoxic overnight. ABG done. FiO2 increased. She was also becoming hypotensive needing increased dose of vasopressors. OBJECTIVE: Vital Signs Period Temp Pulse Resp BP Sys/Echevarria Pulse Ox Last 24 Hr 98.6 F-98.8 F 81-116 21-24 90-126/24-66 91-95 GENERAL: Patient is sedated, intubated. NECK: Trachea midline, full range of motion, supple. LUNGS: + diffuse rhonchi bilaterally, decreased air entry HEART: Tachycardic, normal S1, S2 without murmur, rub or gallop. ABDOMEN: Soft, nontender, distended, normoactive bowel sounds. EXTREMITIES: 2+ pulses, warm, well-perfused, no edema. SKIN: Warm, dry, normal turgor, no rashes or lesions not Laboratory Results - last 24 hr 06/17/18 06/20/18 06/21/18 05:30 17:10 05:30 WBC 2.8 L 2.6 L RBC 3.73 3.45 L Hgb 8.7 L 8.0 L Hct 26.4 L 24.2 L MCV 70.7 L 70.2 L MCH 23.2 L 23.3 L MCHC 32.8 33.2 RDW 17.8 H 18.3 H Plt Count 21 L* D 11 L* D MPV 10.2 9.4 Absolute Neuts (auto) 1.9 Neutrophils % 71.8 Lymphocytes % 26.9 D Monocytes % 1.0 L Eosinophils % 0.2 D Basophils % 0.1 Nucleated RBC % 0 PT with INR INR PTT (Actin FS) Anticoagulation Therapy Puncture Site ABG pH ABG pCO2 at Pt Temp ABG pO2 at Pt Temp ABG HCO3 ABG O2 Sat (Measured) ABG O2 Content ABG Base Excess Timmy Test O2 Delivery Device Oxygen Flow Rate Vent Mode Vent Rate Mechanical Rate PEEP Pressure Support Vent Sodium Potassium Chloride Carbon Dioxide Anion Gap BUN Creatinine Creat Clearance w eGFR Random Glucose Calcium Phosphorus Magnesium Total Bilirubin AST ALT Alkaline Phosphatase Total Protein Total Protein (PEP) 3.5 L Albumin Albumin (PEP) 1.5 L Globulin 2.0 L Albumin/Globulin Ratio 0.8 Beta Globulins 0.6 L MARYANNE M-Dwaine Not observed c-ANCA <1:20 Proteinase 3 (PR3) <3.5 p-ANCA <1:20 Atypical p-ANCA <1:20 Myeloperoxidase Ab <9.0 06/21/18 06/21/18 06/21/18 05:30 05:30 06:00 WBC RBC Hgb Hct MCV MCH MCHC RDW Plt Count MPV Absolute Neuts (auto) Neutrophils % Lymphocytes % Monocytes % Eosinophils % Basophils % Nucleated RBC % PT with INR 12.10 INR 1.03 PTT (Actin FS) 41.3 H Anticoagulation Therapy No Result Required. Puncture Site Right radial ABG pH 7.27 L ABG pCO2 at Pt Temp 54.6 H ABG pO2 at Pt Temp 163.0 H* ABG HCO3 24.5 ABG O2 Sat (Measured) 99.0 H ABG O2 Content 11.3 L ABG Base Excess -1.9 Timmy Test Positive O2 Delivery Device Mech vent Oxygen Flow Rate 60% Vent Mode A/c Vent Rate 22 Mechanical Rate Yes PEEP 5.0 Pressure Support Vent 300 Sodium 126 L Potassium 5.7 H Chloride 85 L Carbon Dioxide 24 Anion Gap 17 H BUN 140 H* Creatinine 3.6 H Creat Clearance w eGFR 12.94 Random Glucose 94 Calcium 7.2 L Phosphorus 11.3 H* Magnesium 2.1 Total Bilirubin 0.5 AST 45 H ALT 42 Alkaline Phosphatase 63 Total Protein 2.7 L Total Protein (PEP) Albumin 0.8 L Albumin (PEP) Globulin Albumin/Globulin Ratio Beta Globulins MARYANNE M-Dwaine c-ANCA Proteinase 3 (PR3) p-ANCA Atypical p-ANCA Myeloperoxidase Ab Active Medications Generic Name Dose Route Start Last Admin Trade Name Freq PRN Reason Stop Dose Admin Acetaminophen 650 mg 06/12/18 17:35 06/13/18 01:30 Tylenol - PO 650 mg Q6H PRN Administration PAIN LEVEL 6-10 Albuterol Sulfate 1 amp 06/21/18 08:25 Ventolin 0.083% Nebulizer Soln - NEB Q2H PRN SHORT OF BREATH/WHEEZING Albuterol/Ipratropium 1 amp 06/16/18 14:00 06/21/18 09:00 Duoneb - NEB 1 amp Q4HPO ZACHARY Administration Bacitracin 1 applic 06/18/18 15:30 06/21/18 09:28 Bacitracin - TP 1 applic DAILY ZACHARY Administration Bacitracin 1 applic 06/20/18 10:00 06/21/18 09:28 Bacitracin - TP 1 applic DAILY ZACHARY Administration Calcium Acetate 1,334 mg 06/21/18 08:21 06/21/18 14:13 Phoslo - PO Not Given TIDCM [facility] Chlorhexidine Gluconate 1 applic 06/12/18 22:00 06/20/18 21:56 Hibiclens For Decolonization - TP 1 applic HS ZACHARY Administration Ergocalciferol 50,000 unit 06/15/18 10:00 06/15/18 10:59 Drisdol - PO Not Given Q7D@1000 ZACHARY Ferrous Sulfate 300 mg 06/16/18 10:00 06/21/18 09:36 Feosol GT 300 mg DAILY ZACHARY Administration Fludrocortisone Acetate 0.05 mg 06/21/18 10:00 Florinef - GT DAILY [facility] Folic Acid 1 mg 06/13/18 10:00 06/21/18 09:27 Folic Acid - PO 1 mg DAILY ZACHARY Administration Hydrocortisone Sodium Succinate 100 mg 06/21/18 18:00 Solu-Cortef - IVPUSH Q8H-IV ZACHARY Propofol 1,000,000 mcg in 100 mls @ 1.935 mls/hr 06/15/18 01:45 06/21/18 02: 29 Diprivan - IVPB Not Given TITR ZACHARY Protocol 5 MCG/KG/MIN Fentanyl 500 mcg/ Dextrose 100 mls @ 10 mls/hr 06/15/18 01:45 06/21/18 02:30 IVPB Not Given TITR ZACHARY Protocol 50 MCG/HR Minocycline HCl 100 mg/ 100 mls @ 100 mls/hr 06/17/18 15:00 06/21/18 03:00 Dextrose IVPB 100 mls/hr Q12H ZACHARY Administration Vasopressin 50 units/ Sodium 100 mls @ 4 mls/hr 06/18/18 17:25 06/21/18 03:00 Chloride IVPB 5 units/hr ASDIR ZACHARY 10 mls/hr Titration Protocol 2 UNITS/HR Norepinephrine Bitartrate 8, 508 mls @ 57.15 mls/hr 06/18/18 21:15 06/21/18 05:00 000 mcg/ Sodium Chloride IV 20 mcg/min ASDIR ZACHARY 76.2 mls/hr Titration Protocol 15 MCG/MIN Sodium Bicarbonate 75 meq/ 1,075 mls @ 75 mls/hr 06/20/18 14:45 06/21/18 05: 32 Sodium Chloride IV Not Given Q14H ZACHARY Famotidine/Sodium Chloride 20 mg in 50 mls @ 100 mls/hr 06/21/18 10:30 11:20 Pepcid 20 Mg Premixed Ivpb - IVPB 100 mls/hr BID ZACHARY Administration Montelukast Sodium 10 mg 06/12/18 22:00 06/20/18 21:56 Singulair - PO 10 mg HS ZACHARY Administration Polyethylene Glycol 17 gm 06/12/18 17:35 Miralax (For Daily Use) - PO DAILY PRN CONSTIPATION Roflumilast 500 mcg 06/13/18 10:00 06/21/18 09:27 Daliresp - PO 500 mcg DAILY ZACHARY Administration Scopolamine HBr 1 patch 06/18/18 10:30 06/21/18 10:07 Transderm-Scop - TD 1 patch Q72H ZACHARY Administration Imaging: Chest X-Ray (05/27/18): No significant interval change. Persistent bilateral increased interstitial markings. Differential diagnosis again includes chronic interstitial lung disease. Cannot rule out noncardiogenic mild pulmonary venous congestion or interstitial infiltrates. Chest X-ray (05/30/18): No acute pathology or significant change. Chest CT scan without contrast (05/31/18): Moderately severe COPD with extensive bilateral bronchiectasis. These findings are unchanged since a previous study of 02/07/18. There is no evidence of acute pathology within the chest. CXR (06/06/18) 2 views of the some minimal degenerative changes with wedging. The soft tissues are intact. The chest reveal a normal-sized heart, normal knob and normal genesis. There are some coarse lung changes. There may be some linear atelectasis/density by the left heart border. Since the prior study 05/30/18, the density by the left heart border has become apparent. This most likely represents a focal area of atelectasis. CXR (06/10/18): New pulmonary consolidation medial aspect of the left upper lung zone obscuring aortic arch. No pleural effusion, or pneumothorax seen. No evidence of vascular congestive changes. CXR (06/13/18): Resolving segmental left upper lobe pneumonia. Left lower lobe pneumonia unchanged. CXR (06/14/18): No significant change in left sided infiltrates. ASSESSMENT/PLAN: Patient is a 58 year old female who presented with shortness of breath and found to be in COPD exacerbation. #Acute Respiratory Distress Syndrome - Patient intubated due to respiratory distress - levophed + vasopressin, titrate to maintain MAP>65 - Solumedrol discontinued - Hydrocortisone shock dose 100 q8 - Duonebs q4 STA, - albuterol q4 PRN - Daliresp GT - Nasogastric tube placed. - propofol/fentanyl titrated to prevent bucking ventilator - CXR and ABG daily -LFTs worsening #Hospital acquired pneumonia - CXR - worsening - Sputum culture - Acinetobacter baumanii/haemol. - ID (Dr. Tao) consulted. Recommendations appreciated. - Polymyxin, minocycline, Azithromax -- renally dosed - Must be on continuous IV fluids due to Nephrotoxic antibiotics. #RAOUL on CKD: -Renal ultrasound done. -Nephrology (Dr. Marquez) consulted. Recommendations appreciated. -worsening renal function -emergent dialysis today -Maintain daily and monitor Urine output -Renal dose meds for a GFR of 16 -Potassium treated medically -Renal US - suggestive of CKD -FeNa 0.8%, likely pre-renal 2/2 hypotension -14 Uzbek catheter placed by urology #Hyperkalemia/hyperphosphatemia: -K 5.7, Ph 11.3 this AM -10 U insulin, D50, Ca Gluconate given -Phoslo [id number] -for dialysis #Left-sided Chest Pain: likely pleuritic - may be empyema - further work-up with chest CT once patient is stable - unlikely cardiac in nature - Tylenol PRN for pain. #Microcytic Anemia: Hgb at 8 - Continue Fe supplements and folate - will trend CBC, transfuse with Hgb<7 #Thrombocytopenia: plt 11 - 3 units of platelets transfused - DDAVP given - Hold Lovenox - will monitor closely - will trend CBC, transfuse with Platelet<20 - Hematology (Dr. Covington) consulted. #Hypertension - Hypotensive today. Hold Cardizem 30mg q6h - Add Cardizem IV PRN for hypertension/tachycardia - IV fluids given. - Monitor BP closely #FEN - 1/2NS+ 2amps (100 meq) bicarb - routine bmp monitoring - Nepro GT held due to residuals #Prophylaxis - Hold Lovenox for now. Patient has low platelet count. #Disposition - To ICU for closer monitoring. Visit type - Emergency Visit Emergency Visit: Yes ED Registration Date: 05/27/18 Care time: The patient presented to the Emergency Department on the above date and was hospitalized for further evaluation of their emergent condition. - New Patient This patient is new to me today: Yes Date on this admission: 06/21/18 - Critical Care Critical Care patient: Yes Total Critical Care Time (in minutes): 40 Critical Care Statement: The care of this patient involved high complexity decision making to prevent further life threatening deterioration of the patient 's condition and/or to evaluate & treat vital organ system(s) failure or risk of failure.
[2018-06-21] MEDS ORDERED: HYDROCORTISONE SOD SUCCINATE 100 MG/2 ML VIAL IVPUSH ONE (14:28)
--- NOTE | 2018-06-21 14:31 | PROC ---
Central Line Insertion Indication: Other (HD catheter) Risks and Benefits Explained: Yes Consent on Chart: Yes Central Line: Dialysis Cath, Tri Lumen Anesthesia: 1% Lidocaine Sterile Technique: Yes Ultrasound Guided Assistance: Yes Position: Left Subclavian Post Insertion: Yes: Chest X-Ray Ordered Sterile Dressing Applied: Yes
--- NOTE | 2018-06-21 15:59 | PN ---
Progress Note (short form) - Note Progress Note: Vascular Surgery Right femoral vein shiley placed. Guidewire removed. All ports flushed. Can use for HD Kelechi Zapata DO
[2018-06-21] MEDS: ALBUTEROL SO4 0.083% IH SOL 2.5 MG/3 ML VIAL.NEB. NEB PRN (16:00)
[2018-06-21] MEDS ORDERED: NOREPINEPHRINE BITARTRATE IV SCH (17:00)
[2018-06-21] MEDS ORDERED: SODIUM CHLORIDE 0.45% IV SCH (17:00)
[2018-06-21] MEDS ORDERED: POLYMYXIN B SULFATE 500,000 UNIT VIAL IVPB ONE (17:19)
[2018-06-21] MEDS ORDERED: SODIUM CHLORIDE 250 ML IV PRN (18:01)
--- NOTE | 2018-06-21 18:06 | PN ---
Progress Note, Physician History of Present Illness: Pt seen and examined at bedside. She remains in the ICU. Pr remain on pressors. Her potassium has not improved with medical therapy. - Current Medication List Current Medications: Active Medications Acetaminophen (Tylenol -) 650 mg PO Q6H PRN PRN Reason: PAIN LEVEL 6-10 Last Admin: 06/13/18 01:30 Dose: 650 mg Albuterol Sulfate (Ventolin 0.083% Nebulizer Soln -) 1 amp NEB Q2H PRN PRN Reason: SHORT OF BREATH/WHEEZING Last Admin: 06/21/18 16:00 Dose: 1 amp Albuterol/Ipratropium (Duoneb -) 1 amp NEB Q4HPO [facility] Last Admin: 06/21/18 14:00 Dose: 1 amp Bacitracin (Bacitracin -) 1 applic TP DAILY [facility] Last Admin: 06/21/18 09:28 Dose: 1 applic Bacitracin (Bacitracin -) 1 applic TP DAILY [facility] Last Admin: 06/21/18 09:28 Dose: 1 applic Calcium Acetate (Phoslo -) 1,334 mg PO TIDCM [facility] Last Admin: 06/21/18 14:13 Dose: Not Given Chlorhexidine Gluconate (Hibiclens For Decolonization -) 1 applic TP HS [facility] Last Admin: 06/20/18 21:56 Dose: 1 applic Ergocalciferol (Drisdol -) 50,000 unit PO Q7D@1000 [facility] Last Admin: 06/15/18 10:59 Dose: Not Given Ferrous Sulfate (Feosol) 300 mg GT DAILY [facility] Last Admin: 06/21/18 09:36 Dose: 300 mg Fludrocortisone Acetate (Florinef -) 0.05 mg GT DAILY [facility] Folic Acid (Folic Acid -) 1 mg PO DAILY [facility] Last Admin: 06/21/18 09:27 Dose: 1 mg Hydrocortisone Sodium Succinate (Solu-Cortef -) 100 mg IVPUSH Q8H-IV ZACHARY Propofol (Diprivan -) 1,000,000 mcg in 100 mls @ 1.935 mls/hr IVPB TITR [facility]; Protocol Last Admin: 06/21/18 02:29 Dose: Not Given Fentanyl 500 mcg/ Dextrose 100 mls @ 10 mls/hr IVPB TITR ZACHARY; Protocol Last Admin: 06/21/18 02:30 Dose: Not Given Minocycline HCl 100 mg/ (Dextrose) 100 mls @ 100 mls/hr IVPB Q12H ZACHARY Last Admin: 06/21/18 16:35 Dose: 100 mls/hr Vasopressin 50 units/ Sodium (Chloride) 100 mls @ 4 mls/hr IVPB ASDIR ZACHARY; Protocol Last Titration: 06/21/18 03:00 Dose: 5 units/hr, 10 mls/hr Sodium Bicarbonate 75 meq/ (Sodium Chloride) 1,075 mls @ 75 mls/hr IV Q14H ZACHARY Last Admin: 06/21/18 05:32 Dose: Not Given Famotidine/Sodium Chloride (Pepcid 20 Mg Premixed Ivpb -) 20 mg in 50 mls @ 100 mls/hr IVPB BID [facility] Last Admin: 06/21/18 11:20 Dose: 100 mls/hr Norepinephrine Bitartrate 16, (000 mcg/ Sodium Chloride) 516 mls @ 42.57 mls/ hr IV ASDIR ZACHARY; Protocol Vancomycin HCl 1,250 mg/ (Dextrose) 250 mls @ 250 mls/2 hr IVPB ONCE ONE; Protocol Stop: 06/21/18 21:29 Polymyxin B Sulfate 750,000 (unit/ Dextrose) 500 mls @ 250 mls/hr IVPB ONCE ONE Stop: 06/21/18 23:59 Montelukast Sodium (Singulair -) 10 mg PO HS [facility] Last Admin: 06/20/18 21:56 Dose: 10 mg Polyethylene Glycol (Miralax (For Daily Use) -) 17 gm PO DAILY PRN PRN Reason: CONSTIPATION Roflumilast (Daliresp -) 500 mcg PO DAILY [facility] Last Admin: 06/21/18 09:27 Dose: 500 mcg Scopolamine HBr (Transderm-Scop -) 1 patch TD Q72H [facility] Last Admin: 06/21/18 10:07 Dose: 1 patch - Objective Vital Signs: Vital Signs Temperature 98.4 F 06/21/18 14:00 Pulse Rate 101 H 06/21/18 17:00 Respiratory Rate 22 H 06/21/18 17:32 Blood Pressure 130/37 L 06/21/18 17:00 O2 Sat by Pulse Oximetry (%) 91 L 06/21/18 10:00 Constitutional: Yes: Calm Cardiovascular: Yes: S1, S2 Respiratory: Yes: Mechanically Ventilated Gastrointestinal: Yes: Soft Genitourinary: Yes: Ramírez Present Musculoskeletal: Yes: Muscle Weakness Edema: Yes Edema: LUE: Trace, RUE: Trace, LLE: Trace, RLE: Trace Integumentary: Yes: WNL Neurological: Yes: Lethargy Labs: CBC, BMP 06/21/18 05:30 06/21/18 05:30 INR, PTT INR 1.03 (0.83-1.09) 06/21/18 05:30 Fibrinogen 899.0 mg/dL (238-498) H 06/15/18 12:10 Problem List - Problems (1) RAOUL (acute kidney injury) Code(s): N17.9 - ACUTE KIDNEY FAILURE, UNSPECIFIED (2) CKD (chronic kidney disease) Code(s): N18.9 - CHRONIC KIDNEY DISEASE, UNSPECIFIED (3) COPD exacerbation Code(s): J44.1 - CHRONIC OBSTRUCTIVE PULMONARY DISEASE W (ACUTE) EXACERBATION (4) Hospital acquired PNA Code(s): J18.9 - PNEUMONIA, UNSPECIFIED ORGANISM (5) Sepsis Code(s): A41.9 - SEPSIS, UNSPECIFIED ORGANISM (6) COPD (chronic obstructive pulmonary disease) with acute bronchitis Code(s): J44.0 - CHRONIC OBSTRUCTIVE PULMON DISEASE W ACUTE LOWER RESP INFCT Assessment/Plan Current Medications Generic Name Dose Route Start Last Admin Trade Name Freq PRN Reason Stop Dose Admin Acetaminophen 650 mg 06/12/18 17:35 06/13/18 01:30 Tylenol - PO 650 mg Q6H PRN Administration PAIN LEVEL 6-10 Albumin Human 12.5 gm 06/21/18 18:15 Albumin Human 25% IVPB Q30M ZACHARY Albuterol Sulfate 1 amp 06/21/18 08:25 06/21/18 16:00 Ventolin 0.083% Nebulizer Soln - NEB 1 amp Q2H PRN Administration SHORT OF BREATH/WHEEZING Albuterol/Ipratropium 1 amp 06/16/18 14:00 06/21/18 14:00 Duoneb - NEB 1 amp Q4HPO ZACHARY Administration Bacitracin 1 applic 06/18/18 15:30 06/21/18 09:28 Bacitracin - TP 1 applic DAILY ZACHARY Administration Bacitracin 1 applic 06/20/18 10:00 06/21/18 09:28 Bacitracin - TP 1 applic DAILY ZACHARY Administration Calcium Acetate 1,334 mg 06/21/18 08:21 06/21/18 14:13 Phoslo - PO Not Given TIDCM [facility] Chlorhexidine Gluconate 1 applic 06/12/18 22:00 06/20/18 21:56 Hibiclens For Decolonization - TP 1 applic HS ZACHARY Administration Ergocalciferol 50,000 unit 06/15/18 10:00 06/15/18 10:59 Drisdol - PO Not Given Q7D@1000 ZACHARY Ferrous Sulfate 300 mg 06/16/18 10:00 06/21/18 09:36 Feosol GT 300 mg DAILY ZACHARY Administration Fludrocortisone Acetate 0.05 mg 06/21/18 10:00 Florinef - GT DAILY ZACHARY Folic Acid 1 mg 06/13/18 10:00 06/21/18 09:27 Folic Acid - PO 1 mg DAILY ZACHARY Administration Hydrocortisone Sodium Succinate 100 mg 06/21/18 18:00 Solu-Cortef - IVPUSH Q8H-IV ZACHARY Propofol 1,000,000 mcg in 100 mls @ 1.935 mls/hr 06/15/18 01:45 06/21/18 02: 29 Diprivan - IVPB Not Given TITR ZACHARY Protocol 5 MCG/KG/MIN Fentanyl 500 mcg/ Dextrose 100 mls @ 10 mls/hr 06/15/18 01:45 06/21/18 02:30 IVPB Not Given TITR ZACHARY Protocol 50 MCG/HR Minocycline HCl 100 mg/ 100 mls @ 100 mls/hr 06/17/18 15:00 06/21/18 16:35 Dextrose IVPB 100 mls/hr Q12H ZACHARY Administration Vasopressin 50 units/ Sodium 100 mls @ 4 mls/hr 06/18/18 17:25 06/21/18 03:00 Chloride IVPB 5 units/hr ASDIR ZACHARY 10 mls/hr Titration Protocol 2 UNITS/HR Sodium Bicarbonate 75 meq/ 1,075 mls @ 75 mls/hr 06/20/18 14:45 06/21/18 05: 32 Sodium Chloride IV Not Given Q14H ZACHARY Famotidine/Sodium Chloride 20 mg in 50 mls @ 100 mls/hr 06/21/18 10:30 11:20 Pepcid 20 Mg Premixed Ivpb - IVPB 100 mls/hr BID ZACHARY Administration Norepinephrine Bitartrate 16, 516 mls @ 42.57 mls/hr 06/21/18 17:00 000 mcg/ Sodium Chloride IV ASDIR ZACHARY Protocol 22 MCG/MIN Vancomycin HCl 1,250 mg/ 250 mls @ 250 mls/2 hr 06/21/18 19:30 Dextrose IVPB 06/21/18 21:29 ONCE ONE Protocol Polymyxin B Sulfate 750,000 500 mls @ 250 mls/hr 06/21/18 22:00 unit/ Dextrose IVPB 06/21/18 23:59 ONCE ONE Sodium Chloride 250 mls @ 3,000 mls/hr 06/21/18 18:01 Normal Saline - IV 06/22/18 18:01 PRN PRN Hypotension during Dialysis Montelukast Sodium 10 mg 06/12/18 22:00 06/20/18 21:56 Singulair - PO 10 mg HS ZACHARY Administration Polyethylene Glycol 17 gm 06/12/18 17:35 Miralax (For Daily Use) - PO DAILY PRN CONSTIPATION Roflumilast 500 mcg 06/13/18 10:00 06/21/18 09:27 Daliresp - PO 500 mcg DAILY ZACHARY Administration Scopolamine HBr 1 patch 06/18/18 10:30 06/21/18 10:07 Transderm-Scop - TD 1 patch Q72H ZACHARY Administration Laboratory Tests 06/17/18 05:30 MARYANNE M-Dwaine Not observed TRACY Screen Negative c-ANCA <1:20 Proteinase 3 (PR3) <3.5 p-ANCA <1:20 Atypical p-ANCA <1:20 Myeloperoxidase Ab <9.0 Double Strand DNA Ab <1 Glomerular Base Memb Ab 3 Hepatitis A Ab Total Negative Hep Bs Antigen Negative Hep Bs Antibody Non reactive Hep B Core Total Ab Negative HCV Quantitation Pending Impression 1. RAOUL 2. CKD 3. respiratory failure requiring intubation 4. sepsis 5. multi drug resistant Acinetobacter 6. copd exacerbation 7. anemia 8. hyperkalemia 9. thrombocytopenia Plan - HD today - will treat potassium with HD - monitor urine output - vascular input appreciated, benjamin in place - discussed with ICU team - cont pressors to a map of 65 - vent support - daily cxr - RAOUL is likely multifactorial - prognosis guarded Dr Marquez
[2018-06-21] MEDS: HYDROCORTISONE SOD SUCCINATE 100 MG/2 ML VIAL IVPUSH SCH (18:34)
--- NOTE | 2018-06-21 18:39 | PN ---
Teaching Attending Note Name of Resident: Babs Flores ATTENDING PHYSICIAN STATEMENT I saw and evaluated the patient. I reviewed the resident's note and discussed the case with the resident. I agree with the resident's findings and plan as documented. SUBJECTIVE:intubated/sedated OBJECTIVE: Last Vital Signs Temp Pulse Resp BP Pulse Ox 98.5 F 96 H 22 H 130/39 L 91 L 06/21/18 18:00 06/21/18 18:00 06/21/18 18:00 06/21/18 18:00 06/21/18 10:00 Intake & Output 06/18/18 06/19/18 06/20/18 06/21/18 23:59 23:59 23:59 23:59 Intake Total 6102 1777 4530 2172 Output Total 850 1800 725 125 Balance 5252 -23 3805 2047 Weight 168 lb 5 oz 171 lb 8.314 oz 176 lb 7 oz 182 lb 4 oz General NAD HEENT dried blood noted on lips Lungs coarse breath sounds Abdomen soft NT/ND Neuro sluggish corneal reflex. no gag reflex ASSESSMENT AND PLAN: 58yo F with PMH HTn, COPD on home O2 (3L NC) and anemia presented with acute COPD exacerbation. Course was complicated by development of CHIKI PNA and was transferred to MICU on 06/12 and now worsened with ARDS with shock on 2 pressors 1. Acute on chronic hypoxic and hypercapnic respiratory distress-r/o ARDS. intubated. full vent support. medrol 40mg Q8H. not a candidate for titration at this time. ICU team on board 2. Septic shock with multiorgan failure- due to MDR Acineobacter PNA. start on hydrocotrisone 100mg Q8H. pressors have been titrated up the past few days. currently on Levo 22mcg and Vaso 6mcg. MAP >65. IVF to keep CVP 8-12. on Azithro /Tigecycline/minocyline/polymixin. ID on board. Contact and droplet precautions 3. RAOUL- due to septic shock. received HD on 06/19. Shiley re-positioned today into the R femoral. Plan for HD today as BP can tolerate. Nephro on board. 4. Panocytopenia- due to septic shock and ARDS. will transfuse 4 platelets. and repeat. no active bleeding at this time. HIT panel pending. heme on board 5. Hyperkalemia- plan for HD today. on cardiac monitoring 6. Acute toxic/metabolic encephalopathy- due to septic shock. unable to do sedation vacation at this time to fully assess mental status. cont full sedation. 7. DVT ppx- SCD. hold pharmacologic in setting of thrombocytopenia 8. poor overall prognosis. palliative care consulted 9. spoke with son with family present at bedside. all questions answered. verbalized understanding and agreement. The care of this patient involved high complexity decision making to prevent further life threatening deterioration of the patient's condition and/or to evaluate & treat vital organ system(s) failure or risk of failure. 45 minutes
[2018-06-21] MEDS ORDERED: VANCOMYCIN 1,250 MG in DEXTROSE 5%-WATER - 250 ML IVPB ONE (19:30)
[2018-06-21 20:25] LABS: MCH 23.7 pg (25.7-33.7); MCHC 33.2 g/dl (32.0-36.0); MEAN CELL VOLUME 71.4 fl (80-96); MEAN PLT VOLUME 7.4 fl (7.5-11.1); PLATELET COUNT 148 K/MM3 (134-434); RBC 2.45 M/mm3 (3.60-5.2); RDW 18.4 % (11.6-15.6); WHITE BLOOD COUNT 2.5 K/mm3 (4.0-10.0)
[2018-06-21] MEDS: ALBUMIN HUMAN 25% 12.5 GM/50 ML VIAL IVPB SCH ×4 (20:28→21:30)
[2018-06-21 20:33] LABS: HEMATOCRIT 17.5 % (32.4-45.2); HEMOGLOBIN 5.8 GM/dL (10.7-15.3)
[2018-06-21 20:51] LABS: MCH 23.8 pg (25.7-33.7); MCHC 33.3 g/dl (32.0-36.0); MEAN CELL VOLUME 71.7 fl (80-96); MEAN PLT VOLUME 7.8 fl (7.5-11.1); PLATELET COUNT 138 K/MM3 (134-434); RBC 2.45 M/mm3 (3.60-5.2); RDW 18.4 % (11.6-15.6); WHITE BLOOD COUNT 2.1 K/mm3 (4.0-10.0)
[2018-06-21 20:55] LABS: HEMATOCRIT 17.6 % (32.4-45.2); HEMOGLOBIN 5.8 GM/dL (10.7-15.3)
[2018-06-21] MEDS ORDERED: HEMOQUE CONTROL SOLUTION ONE (21:21)
[2018-06-21] MEDS ORDERED: DEXTROSE 5% IVPB ONE (22:00)
[2018-06-21] MEDS ORDERED: WATER IVPB ONE (22:00)
[2018-06-21] MEDS ORDERED: POLYMYXIN B SULFATE IVPB ONE (22:00)
[2018-06-21] MEDS: CHLORHEXIDINE GLUCONATE 4% CLEANSER FOR DECOLONIZATION TP SCH (22:52)
[2018-06-21] MEDS: MONTELUKAST NA 10 MG TABLET PO SCH (22:53)
[2018-06-22] MEDS: ALBUTEROL SO4 0.083% IH SOL 2.5 MG/3 ML VIAL.NEB. NEB PRN ×2 (00:11→03:45)
[2018-06-22 00:16] LABS: ANION GAP 7 MMOL/L (8-16); BLOOD UREA NITROGEN 80 mg/dL (7-18); CALCIUM 7.3 mg/dL (8.5-10.1); CHLORIDE 100 mmol/L (98-107); CO2 31 mmol/L (21-32); CREATININE 2.1 mg/dL (0.55-1.3); GLUCOSE,RANDOM 149 mg/dL (74-106); POTASSIUM 4.2 mmol/L (3.5-5.1); SODIUM 138 mmol/L (136-145)
[2018-06-22] MEDS ORDERED: HYDROCORTISONE SOD SUCCINATE 2 ML ONE (00:25)
[2018-06-22] MEDS ORDERED: PT OWN MED DRAWER 7, Y5N ONE ×2 (00:25→23:29)
[2018-06-22] MEDS: PROPOFOL 1,000,000 MCG/100 ML VIAL IVPB SCH ×4 (01:47→20:12)
[2018-06-22] MEDS: HYDROCORTISONE SOD SUCCINATE 100 MG/2 ML VIAL IVPUSH SCH ×3 (01:48→18:50)
[2018-06-22] MEDS: WATER IVPB SCH ×2 (02:03→15:24)
[2018-06-22] MEDS: MINOCYCLINE HCL IVPB SCH ×2 (02:03→15:24)
[2018-06-22] MEDS: DEXTROSE 5% IVPB SCH ×2 (02:03→15:24)
[2018-06-22] MEDS: ALBUTEROL SO4 2.5/IPRATROPIUM 0.5 INH SOL 3 ML VIAL.NEB. NEB SCH ×6 (02:30→21:30)
[2018-06-22] MEDS ORDERED: fentaNYL CITRATE 250 MCG/5 ML VIAL ONE ×3 (05:43→21:26)
[2018-06-22 06:14] LABS: ARTERIAL BLD GAS O2 SATURATION 94.3 % (90-98.9); ARTERIAL BLOOD GAS BASE EXCESS -3.5 meq/l (-2-2); ARTERIAL BLOOD GAS PO2 84.2 mmHg (80-100)
[2018-06-22 06:15] LABS: ALLENS TEST POSITIVE; ARTERIAL BLOOD GAS pH 7.14 (7.35-7.45)
[2018-06-22 08:07] LABS: BASO % 0.3 % (0-2.0); HEMOGLOBIN 9.9 GM/dL (10.7-15.3); LYMPH % 9.4 % (8-40); MCH 26.5 pg (25.7-33.7); MCHC 34.1 g/dl (32.0-36.0); MEAN CELL VOLUME 77.8 fl (80-96); MEAN PLT VOLUME 8.4 fl (7.5-11.1); MONO % 2.1 % (3.8-10.2); NEUT % 88.2 % (42.8-82.8); PLATELET COUNT 73 K/MM3 (134-434); RBC 3.73 M/mm3 (3.60-5.2); WHITE BLOOD COUNT 2.1 K/mm3 (4.0-10.0)
[2018-06-22 08:12] LABS: INR 1.05 (0.83-1.09); PROTHROMBIN TIME (PATIENT) 12.4 SEC (9.7-13.0)
[2018-06-22 08:14] LABS: ACTIVATED PTT 38.2 SECONDS (25.2-36.5)
[2018-06-22 08:53] LABS: ALBUMIN 1.9 g/dl (3.4-5.0); ALK PHOS 59 U/L (45-117); ANION GAP 12 MMOL/L (8-16); BILIRUBIN,TOTAL 2.2 mg/dL (0.2-1); BLOOD UREA NITROGEN 90 mg/dL (7-18); CALCIUM 7.7 mg/dL (8.5-10.1); CHLORIDE 97 mmol/L (98-107); CO2 26 mmol/L (21-32); CREATININE 2.4 mg/dL (0.55-1.3); GLUCOSE,RANDOM 101 mg/dL (74-106); MAGNESIUM 2.2 mg/dL (1.8-2.4); POTASSIUM 4.7 mmol/L (3.5-5.1); SGOT/AST 79 U/L (15-37); SGPT/ALT 55 U/L (13-61); SODIUM 134 mmol/L (136-145); TOT PROT 3.7 g/dl (6.4-8.2)
[2018-06-22 08:55] LABS: PHOSPHOROUS > 9.0 mg/dL (2.5-4.9)
[2018-06-22 09:35] LABS: ANISOCYTOSIS 2+; PLATELET ESTIMATE DECREASED; TARGET CELLS 2+
[2018-06-22 09:37] LABS: BILIRUBIN,DIRECT 1.7 mg/dL (0.0-0.2)
--- NOTE | 2018-06-22 09:53 | PN ---
Progress Note (short form) - Note Progress Note: remains intubated s/p HD yesterday required blood transfusion overnight platelets yesterday Vital Signs Period Temp Pulse Resp BP Sys/Echevarria Pulse Ox Last 24 Hr 97.7 F-98.8 F 60-121 20-37 96-158/33-76 91-96 cor-rrr lungs decreased bs bilaterally abd distended, +ecchymoses LLQ ext edema of the hands femoral valeriley abimbola CBC, BMP 06/22/18 07:32 06/22/18 07:32 Microbiology 06/11/18 17:49 Gram Stain - Final Sputum - Expectorated Sputum Culture - Final Acinetobacter Baumannii/Haemol blood cultures pending Current Medications Acetaminophen (Tylenol -) 650 mg PO Q6H PRN PRN Reason: PAIN LEVEL 6-10 Last Admin: 06/13/18 01:30 Dose: 650 mg Albuterol Sulfate (Ventolin 0.083% Nebulizer Soln -) 1 amp NEB Q2H PRN PRN Reason: SHORT OF BREATH/WHEEZING Last Admin: 06/22/18 03:45 Dose: 1 amp Albuterol/Ipratropium (Duoneb -) 1 amp NEB Q4HPO [facility] [place] Last Admin: 06/22/18 05:30 Dose: 1 amp Bacitracin (Bacitracin -) 1 applic TP DAILY [facility] [place] Last Admin: 06/21/18 09:28 Dose: 1 applic Bacitracin (Bacitracin -) 1 applic TP DAILY [facility] [place] Last Admin: 06/21/18 09:28 Dose: 1 applic Calcium Acetate (Phoslo -) 1,334 mg PO TIDCM [facility] [place] Last Admin: 06/21/18 18:33 Dose: Not Given Chlorhexidine Gluconate (Hibiclens For Decolonization -) 1 applic TP HS [facility] [place] Last Admin: 06/21/18 22:52 Dose: 1 applic Ergocalciferol (Drisdol -) 50,000 unit PO Q7D@1000 [facility] [place] Last Admin: 06/15/18 10:59 Dose: Not Given Ferrous Sulfate (Feosol) 300 mg GT DAILY [facility] [place] Last Admin: 06/21/18 09:36 Dose: 300 mg Fludrocortisone Acetate (Florinef -) 0.05 mg GT DAILY [facility] [place] Folic Acid (Folic Acid -) 1 mg PO DAILY [facility] [place] Last Admin: 06/21/18 09:27 Dose: 1 mg Hydrocortisone Sodium Succinate (Solu-Cortef -) 100 mg IVPUSH Q8H-IV [facility] Last Admin: 06/22/18 01:48 Dose: 100 mg Propofol (Diprivan -) 1,000,000 mcg in 100 mls @ 1.935 mls/hr IVPB TITR [facility]; Protocol Last Admin: 06/22/18 09:38 Dose: 40 mcg/kg/min, 15.48 mls/hr Minocycline HCl 100 mg/ (Dextrose) 100 mls @ 100 mls/hr IVPB Q12H [facility] Last Admin: 06/22/18 02:03 Dose: 100 mls/hr Vasopressin 50 units/ Sodium (Chloride) 100 mls @ 4 mls/hr IVPB ASDIR [facility]; Protocol Last Titration: 06/22/18 05:00 Dose: 1 units/hr, 2 mls/hr Sodium Bicarbonate 75 meq/ (Sodium Chloride) 1,075 mls @ 75 mls/hr IV Q14H [facility] Last Admin: 06/21/18 22:52 Dose: 75 mls/hr Famotidine/Sodium Chloride (Pepcid 20 Mg Premixed Ivpb -) 20 mg in 50 mls @ 100 mls/hr IVPB BID [facility] Last Admin: 06/21/18 22:53 Dose: 100 mls/hr Norepinephrine Bitartrate 16, (000 mcg/ Sodium Chloride) 516 mls @ 42.57 mls/ hr IV ASDIR [facility]; Protocol Last Titration: 06/22/18 04:00 Dose: 10 mcg/min, 19.35 mls/hr Sodium Chloride (Normal Saline -) 250 mls @ 3,000 mls/hr IV PRN PRN PRN Reason: Hypotension during Dialysis Stop: 06/22/18 18:01 Fentanyl 500 mcg/ Dextrose 100 mls @ 15 mls/hr IVPB TITR [facility] Montelukast Sodium (Singulair -) 10 mg PO HS [facility] Last Admin: 06/21/18 22:53 Dose: Not Given Polyethylene Glycol (Miralax (For Daily Use) -) 17 gm PO DAILY PRN PRN Reason: CONSTIPATION Roflumilast (Daliresp -) 500 mcg PO DAILY [facility] Last Admin: 06/21/18 09:27 Dose: 500 mcg Scopolamine HBr (Transderm-Scop -) 1 patch TD Q72H [facility] Last Admin: 06/21/18 10:07 Dose: 1 patch a/p hypoxemic respiratory failure multiorgan failure sepsis- increasing pressor requrements HAP with multidrug resistant acinetobacter thrombocytopenia/leukopenia- reuired blood and platelet transfusion giovanna worsening-s/p HD bronchiectasis with poor lung function at baseline blood cultures repeated yesterday vancomycin given after HD last night polymyxin given after HD last night continue minocycline and zithromax strict contact isolation d/w ICU staff doing poorly overall prognosis poor worsening cxray over 40 minutes spent in the care of this critically ill ICU patient Problem List - Problems (1) Sepsis Code(s): A41.9 - SEPSIS, UNSPECIFIED ORGANISM (2) Acute on chronic respiratory failure with hypoxia and hypercapnia Code(s): J96.21 - ACUTE AND CHRONIC RESPIRATORY FAILURE WITH HYPOXIA; J96.22 - ACUTE AND CHRONIC RESPIRATORY FAILURE WITH HYPERCAPNIA (3) Hospital acquired PNA Code(s): J18.9 - PNEUMONIA, UNSPECIFIED ORGANISM
[2018-06-22] MEDS ORDERED: SODIUM CHLORIDE 0.45% 1,000 ML with SODIUM BICARBONATE 8.4% - 150 MEQ IV SCH (10:12)
[2018-06-22 10:39] LABS: ARTERIAL BLD GAS O2 SATURATION 97.2 % (90-98.9); ARTERIAL BLOOD GAS BASE EXCESS -2.3 meq/l (-2-2)
[2018-06-22 10:42] LABS: ALLENS TEST POSITIVE
[2018-06-22 10:46] LABS: ARTERIAL BLOOD GAS pH 7.21 (7.35-7.45)
[2018-06-22] MEDS ORDERED: AZITHROMYCIN IVPB 500 MG in DEXTROSE 5%-WATER - 250 ML IVPB SCH (11:00)
[2018-06-22] MEDS: BACITRACIN 15 GM TUBE TOPICAL OINTMENT TP SCH ×2 (11:00)
[2018-06-22] MEDS: FAMOTIDINE 20 MG/50 ML IVPB 20 MG/50 ML MG IVPB SCH ×2 (11:00→23:35)
[2018-06-22] MEDS: CALCIUM ACETATE 667 MG CAPSULE (FP) PO SCH ×3 (11:35→18:39)
[2018-06-22] MEDS: FENTANYL INJECTION 500 MCG in DEXTROSE 5%-WATER - 90 ML IVPB SCH ×2 (11:39→15:44)
[2018-06-22] MEDS: AZITHROMYCIN IVPB 500 MG/250 ML BAG IVPB SCH (11:39)
[2018-06-22] MEDS: VASOPRESSIN 50 UNITS in SODIUM CHLORIDE 97.5 ML IVPB SCH ×2 (11:40→18:37)
--- NOTE | 2018-06-22 12:02 | PN ---
Progress Note, Physician History of Present Illness: Pt seen and examined at bedside. She tolerated HD last night. She remains in the ICU on pressors. - Current Medication List Current Medications: Active Medications Acetaminophen (Tylenol -) 650 mg PO Q6H PRN PRN Reason: PAIN LEVEL 6-10 Last Admin: 06/13/18 01:30 Dose: 650 mg Albuterol Sulfate (Ventolin 0.083% Nebulizer Soln -) 1 amp NEB Q2H PRN PRN Reason: SHORT OF BREATH/WHEEZING Last Admin: 06/22/18 03:45 Dose: 1 amp Albuterol/Ipratropium (Duoneb -) 1 amp NEB Q4HPO [facility] Last Admin: 06/22/18 10:25 Dose: 1 amp Bacitracin (Bacitracin -) 1 applic TP DAILY [facility] Last Admin: 06/22/18 11:00 Dose: 1 applic Calcium Acetate (Phoslo -) 1,334 mg PO TIDCM [facility] Last Admin: 06/22/18 11:35 Dose: Not Given Chlorhexidine Gluconate (Hibiclens For Decolonization -) 1 applic TP HS [facility] Last Admin: 06/21/18 22:52 Dose: 1 applic Ergocalciferol (Drisdol -) 50,000 unit PO Q7D@1000 [facility] Last Admin: 06/15/18 10:59 Dose: Not Given Ferrous Sulfate (Feosol) 300 mg GT DAILY [facility] Last Admin: 06/21/18 09:36 Dose: 300 mg Fludrocortisone Acetate (Florinef -) 0.05 mg GT DAILY [facility] Folic Acid (Folic Acid -) 1 mg PO DAILY [facility] Last Admin: 06/21/18 09:27 Dose: 1 mg Hydrocortisone Sodium Succinate (Solu-Cortef -) 100 mg IVPUSH Q8H-IV [facility] Last Admin: 06/22/18 11:37 Dose: 100 mg Propofol (Diprivan -) 1,000,000 mcg in 100 mls @ 1.935 mls/hr IVPB TITR [facility]; Protocol Last Admin: 06/22/18 11:41 Dose: 40 mcg/kg/min, 15.48 mls/hr Minocycline HCl 100 mg/ (Dextrose) 100 mls @ 100 mls/hr IVPB Q12H [facility] Last Admin: 06/22/18 02:03 Dose: 100 mls/hr Vasopressin 50 units/ Sodium (Chloride) 100 mls @ 4 mls/hr IVPB [facility]; Protocol Last Admin: 06/22/18 11:40 Dose: 1 units/hr, 2 mls/hr Famotidine/Sodium Chloride (Pepcid 20 Mg Premixed Ivpb -) 20 mg in 50 mls @ 100 mls/hr IVPB BID [facility] Last Admin: 06/21/18 22:53 Dose: 100 mls/hr Norepinephrine Bitartrate 16, (000 mcg/ Sodium Chloride) 516 mls @ 42.57 mls/ hr IV ASDIR [facility]; Protocol Last Titration: 06/22/18 04:00 Dose: 10 mcg/min, 19.35 mls/hr Sodium Chloride (Normal Saline -) 250 mls @ 3,000 mls/hr IV PRN PRN PRN Reason: Hypotension during Dialysis Stop: 06/22/18 18:01 Fentanyl 500 mcg/ Dextrose 100 mls @ 15 mls/hr IVPB TITR [facility]; Protocol Last Admin: 06/22/18 11:39 Dose: 75 mcg/hr, 15 mls/hr Azithromycin (Zithromax 500mg Ivpb (Pre-Docked)) 500 mg in 250 mls @ 250 mls/ hr IVPB DAILY [facility] Last Admin: 06/22/18 11:39 Dose: 250 mls/hr Sodium Bicarbonate 150 meq/ (Dextrose) 1,150 mls @ 75 mls/hr IV Q14H [facility] Montelukast Sodium (Singulair -) 10 mg PO HS [facility] Last Admin: 06/21/18 22:53 Dose: Not Given Polyethylene Glycol (Miralax (For Daily Use) -) 17 gm PO DAILY PRN PRN Reason: CONSTIPATION Roflumilast (Daliresp -) 500 mcg PO DAILY [facility] Last Admin: 06/21/18 09:27 Dose: 500 mcg Scopolamine HBr (Transderm-Scop -) 1 patch TD Q72H [facility] Last Admin: 06/21/18 10:07 Dose: 1 patch - Objective Vital Signs: Vital Signs Temperature 98.4 F 06/22/18 10:00 Pulse Rate 84 06/22/18 11:40 Respiratory Rate 24 H 06/22/18 10:15 Blood Pressure 112/50 L 06/22/18 11:40 O2 Sat by Pulse Oximetry (%) 96 06/22/18 08:01 Constitutional: Yes: Calm Eyes: Yes: Conjunctiva Clear HENT: Yes: Atraumatic Neck: Yes: Supple Cardiovascular: Yes: S1, S2 Respiratory: Yes: Mechanically Ventilated Gastrointestinal: Yes: Other (hematoma, distended) Genitourinary: Yes: Ramírez Present Musculoskeletal: Yes: Muscle Weakness Edema: No Edema: LUE: 1+, RUE: 1+, LLE: Trace, RLE: Trace Neurological: Yes: Lethargy Labs: CBC, BMP 06/22/18 07:32 06/22/18 07:32 INR, PTT INR 1.05 (0.83-1.09) 06/22/18 07:32 Fibrinogen 208.0 mg/dL (238-498) L D 06/22/18 07:32 - ....Imaging Chest X-ray: Report Reviewed Problem List - Problems (1) RAOUL (acute kidney injury) Code(s): N17.9 - ACUTE KIDNEY FAILURE, UNSPECIFIED (2) CKD (chronic kidney disease) Code(s): N18.9 - CHRONIC KIDNEY DISEASE, UNSPECIFIED (3) COPD exacerbation Code(s): J44.1 - CHRONIC OBSTRUCTIVE PULMONARY DISEASE W (ACUTE) EXACERBATION (4) Hospital acquired PNA Code(s): J18.9 - PNEUMONIA, UNSPECIFIED ORGANISM (5) Sepsis Code(s): A41.9 - SEPSIS, UNSPECIFIED ORGANISM (6) COPD (chronic obstructive pulmonary disease) with acute bronchitis Code(s): J44.0 - CHRONIC OBSTRUCTIVE PULMON DISEASE W ACUTE LOWER RESP INFCT Assessment/Plan Current Medications Generic Name Dose Route Start Last Admin Trade Name Freq PRN Reason Stop Dose Admin Acetaminophen 650 mg 06/12/18 17:35 06/13/18 01:30 Tylenol - PO 650 mg Q6H PRN Administration PAIN LEVEL 6-10 Albuterol Sulfate 1 amp 06/21/18 08:25 06/22/18 03:45 Ventolin 0.083% Nebulizer Soln - NEB 1 amp Q2H PRN Administration SHORT OF BREATH/WHEEZING Albuterol/Ipratropium 1 amp 06/16/18 14:00 06/22/18 10:25 Duoneb - NEB 1 amp Q4HPO [facility] Administration Bacitracin 1 applic 06/20/18 10:00 06/22/18 11:00 Bacitracin - TP 1 applic DAILY [facility] Administration Calcium Acetate 1,334 mg 06/21/18 08:21 06/22/18 11:35 Phoslo - PO Not Given TIDCM [facility] Chlorhexidine Gluconate 1 applic 06/12/18 22:00 06/21/18 22:52 Hibiclens For Decolonization - TP 1 applic HS [facility] Administration Ergocalciferol 50,000 unit 06/15/18 10:00 06/15/18 10:59 Drisdol - PO Not Given Q7D@1000 [facility] Ferrous Sulfate 300 mg 06/16/18 10:00 06/21/18 09:36 Feosol GT 300 mg DAILY [facility] Administration Fludrocortisone Acetate 0.05 mg 06/21/18 10:00 Florinef - GT DAILY [facility] Folic Acid 1 mg 06/13/18 10:00 06/21/18 09:27 Folic Acid - PO 1 mg DAILY [facility] Administration Hydrocortisone Sodium Succinate 100 mg 06/21/18 18:00 06/22/18 11:37 Solu-Cortef - IVPUSH 100 mg Q8H-IV [facility] Administration Propofol 1,000,000 mcg in 100 mls @ 1.935 mls/hr 06/15/18 01:45 06/22/18 11: 41 Diprivan - IVPB 40 mcg/kg/min TITR [facility] 15.48 mls/hr Administration Protocol 5 MCG/KG/MIN Minocycline HCl 100 mg/ 100 mls @ 100 mls/hr 06/17/18 15:00 06/22/18 02:03 Dextrose IVPB 100 mls/hr Q12H [facility] Administration Vasopressin 50 units/ Sodium 100 mls @ 4 mls/hr 06/18/18 17:25 06/22/18 11:40 Chloride IVPB 1 units/hr ASDIR [facility] 2 mls/hr Administration Protocol 2 UNITS/HR Famotidine/Sodium Chloride 20 mg in 50 mls @ 100 mls/hr 06/21/18 10:30 22:53 Pepcid 20 Mg Premixed Ivpb - IVPB 100 mls/hr BID [facility] Administration Norepinephrine Bitartrate 16, 516 mls @ 42.57 mls/hr 06/21/18 17:00 06/22/18 04:00 000 mcg/ Sodium Chloride IV 10 mcg/min ASDIR [facility] 19.35 mls/hr Titration Protocol 22 MCG/MIN Sodium Chloride 250 mls @ 3,000 mls/hr 06/21/18 18:01 Normal Saline - IV 06/22/18 18:01 PRN PRN Hypotension during Dialysis Fentanyl 500 mcg/ Dextrose 100 mls @ 15 mls/hr 06/22/18 11:45 06/22/18 11:39 IVPB 75 mcg/hr TITR [facility] 15 mls/hr Administration Protocol 75 MCG/HR Azithromycin 500 mg in 250 mls @ 250 mls/hr 06/22/18 11:30 06/22/18 11:39 Zithromax 500mg Ivpb (Pre-Docked) IVPB 250 mls/hr DAILY [facility] Administration Sodium Bicarbonate 150 meq/ 1,150 mls @ 75 mls/hr 06/22/18 12:00 Dextrose IV Q14H [facility] Montelukast Sodium 10 mg 06/12/18 22:00 06/21/18 22:53 Singulair - PO Not Given HS [facility] Polyethylene Glycol 17 gm 06/12/18 17:35 Miralax (For Daily Use) - PO DAILY PRN CONSTIPATION Roflumilast 500 mcg 06/13/18 10:00 06/21/18 09:27 Daliresp - PO 500 mcg DAILY [facility] Administration Scopolamine HBr 1 patch 06/18/18 10:30 06/21/18 10:07 Transderm-Scop - TD 1 patch Q72H [facility] Administration Impression 1. RAOUL 2. CKD 3. respiratory failure requiring intubation 4. sepsis 5. multi drug resistant Acinetobacter 6. copd exacerbation 7. anemia 8. hyperkalemia 9. thrombocytopenia Plan - pt tolerated HD lat night - will evaluate for HD in am - discussed plan with ICU team in detail - monitor lytes - potassium is improved - family to discuss GOC - cont with pressors to maintain a map of 65 - vent support - monitor urine output - daily cxr - RAOUL is likely multifactorial - prognosis guarded Dr Marquez
--- NOTE | 2018-06-22 12:03 | PN ---
Teaching Attending Note Name of Resident: Long Petersen ATTENDING PHYSICIAN STATEMENT I saw and evaluated the patient. I reviewed the resident's note and discussed the case with the resident. I agree with the resident's findings and plan as documented. SUBJECTIVE: Pt seen and examined in the ICU. Remains intubated, sedated. Dialyzed yesterday with decrease in pressor requirements. More acidotic this AM, vent settings adjusted. OBJECTIVE: Vital Signs Period Temp Pulse Resp BP Sys/Echevarria Pulse Ox Last 24 Hr 97.7 F-98.8 F 60-121 20-37 96-158/37-76 91-96 Intake & Output 06/19/18 06/20/18 06/21/18 06/22/18 23:59 23:59 23:59 23:59 Intake Total 1777 4530 6185 1872 Output Total 1800 725 375 300 Balance -23 3805 5810 1572 Weight 77.8 kg 80.031 kg 82.667 kg 88.904 kg Gen: intubated, sedated Heart: RRR Lung: bilateral rhonchi Abd: soft, nontender Ext: no edema CBC, BMP 06/22/18 07:32 06/22/18 07:32 Active Medications Acetaminophen (Tylenol -) 650 mg PO Q6H PRN PRN Reason: PAIN LEVEL 6-10 Last Admin: 06/13/18 01:30 Dose: 650 mg Albuterol Sulfate (Ventolin 0.083% Nebulizer Soln -) 1 amp NEB Q2H PRN PRN Reason: SHORT OF BREATH/WHEEZING Last Admin: 06/22/18 03:45 Dose: 1 amp Albuterol/Ipratropium (Duoneb -) 1 amp NEB Q4HPO [facility] Last Admin: 06/22/18 10:25 Dose: 1 amp Bacitracin (Bacitracin -) 1 applic TP DAILY [facility] Last Admin: 06/22/18 11:00 Dose: 1 applic Calcium Acetate (Phoslo -) 1,334 mg PO TIDCM [facility] Last Admin: 06/22/18 11:35 Dose: Not Given Chlorhexidine Gluconate (Hibiclens For Decolonization -) 1 applic TP HS [facility] Last Admin: 06/21/18 22:52 Dose: 1 applic Ergocalciferol (Drisdol -) 50,000 unit PO Q7D@1000 [facility] Last Admin: 06/15/18 10:59 Dose: Not Given Ferrous Sulfate (Feosol) 300 mg GT DAILY [facility] Last Admin: 06/21/18 09:36 Dose: 300 mg Fludrocortisone Acetate (Florinef -) 0.05 mg GT DAILY [facility] Folic Acid (Folic Acid -) 1 mg PO DAILY [facility] Last Admin: 06/21/18 09:27 Dose: 1 mg Hydrocortisone Sodium Succinate (Solu-Cortef -) 100 mg IVPUSH Q8H-IV [facility] Last Admin: 06/22/18 11:37 Dose: 100 mg Propofol (Diprivan -) 1,000,000 mcg in 100 mls @ 1.935 mls/hr IVPB TITR [facility]; Protocol Last Admin: 06/22/18 11:41 Dose: 40 mcg/kg/min, 15.48 mls/hr Minocycline HCl 100 mg/ (Dextrose) 100 mls @ 100 mls/hr IVPB Q12H [facility] Last Admin: 06/22/18 02:03 Dose: 100 mls/hr Vasopressin 50 units/ Sodium (Chloride) 100 mls @ 4 mls/hr IVPB ASDIR [facility]; Protocol Last Admin: 06/22/18 11:40 Dose: 1 units/hr, 2 mls/hr Famotidine/Sodium Chloride (Pepcid 20 Mg Premixed Ivpb -) 20 mg in 50 mls @ 100 mls/hr IVPB BID [facility] Last Admin: 06/21/18 22:53 Dose: 100 mls/hr Norepinephrine Bitartrate 16, (000 mcg/ Sodium Chloride) 516 mls @ 42.57 mls/ hr IV ASDIR [facility]; Protocol Last Titration: 06/22/18 04:00 Dose: 10 mcg/min, 19.35 mls/hr Sodium Chloride (Normal Saline -) 250 mls @ 3,000 mls/hr IV PRN PRN PRN Reason: Hypotension during Dialysis Stop: 06/22/18 18:01 Fentanyl 500 mcg/ Dextrose 100 mls @ 15 mls/hr IVPB TITR [facility]; Protocol Last Admin: 06/22/18 11:39 Dose: 75 mcg/hr, 15 mls/hr Azithromycin (Zithromax 500mg Ivpb (Pre-Docked)) 500 mg in 250 mls @ 250 mls/ hr IVPB DAILY [facility] Last Admin: 06/22/18 11:39 Dose: 250 mls/hr Sodium Bicarbonate 150 meq/ (Dextrose) 1,150 mls @ 75 mls/hr IV Q14H [facility] Montelukast Sodium (Singulair -) 10 mg PO HS [facility] Last Admin: 06/21/18 22:53 Dose: Not Given Polyethylene Glycol (Miralax (For Daily Use) -) 17 gm PO DAILY PRN PRN Reason: CONSTIPATION Roflumilast (Daliresp -) 500 mcg PO DAILY [facility] Last Admin: 06/21/18 09:27 Dose: 500 mcg Scopolamine HBr (Transderm-Scop -) 1 patch TD Q72H [facility] Last Admin: 06/21/18 10:07 Dose: 1 patch ASSESSMENT AND PLAN: Acute on Chronic Hypoxic and Hypercapneic Respiratory Failure Pneumonia Septic Shock Acute Kidney Injury Acute COPD/Bronchiectasis Exacerbation ARDS HTN - continue antibiotics per ID - IVF to keep CVP 8-12 - titrate pressors to maintain MAP >65 - monitor urine output, creatinine - HD per renal - inhaled bronchodilators standing and PRN - continue stress dose steroids - monitor Ppeak, Pplat - low tidal volume ventilation 6cc/kg/IBW - keep Pplat <30 - taper Fio2 to keep Spo2 >90% - monitor ABG - enteral feeds as tolerated - DVT/GI prophylaxis - continue ICU monitoring - prognosis guarded, palliative care f/u for goals of care critical care time spent in reviewing chart, evaluating patient and formulating plan 35 min
[2018-06-22] MEDS: DEXTROSE 5%-WATER - 1,000 ML with SODIUM BICARBONATE 8.4% - 150 MEQ IV SCH (13:00)
--- NOTE | 2018-06-22 13:21 | PN ---
Teaching Attending Note Name of Resident: Babs Flores ATTENDING PHYSICIAN STATEMENT I saw and evaluated the patient. I reviewed the resident's note and discussed the case with the resident. I agree with the resident's findings and plan as documented. SUBJECTIVE:intubated/sedated OBJECTIVE: Last Vital Signs Temp Pulse Resp BP Pulse Ox 98.4 F 86 28 H 108/42 L 96 06/22/18 10:00 06/22/18 12:00 06/22/18 12:00 06/22/18 12:00 06/22/18 08:01 Intake & Output 06/19/18 06/20/18 06/21/18 06/22/18 23:59 23:59 23:59 23:59 Intake Total 1777 4530 6185 1872 Output Total 1800 725 375 300 Balance -23 3805 5810 1572 Weight 171 lb 8.314 oz 176 lb 7 oz 182 lb 4 oz 196 lb General intubated/sedated HEENT dried blood noted on lips Lungs coarse breath sounds Abdomen soft NT/ND Neuro sluggish corneal reflex. no gag reflex, ASSESSMENT AND PLAN: 58yo F with PMH HTn, COPD on home O2 (3L NC) and anemia presented with acute COPD exacerbation. Course was complicated by development of CHIKI PNA and was transferred to MICU on 06/12 and now worsened with ARDS with shock on 2 pressors 1. Acute on chronic hypoxic and hypercapnic respiratory distress-r/o ARDS. intubated. full vent support. medrol 40mg Q8H. not a candidate for titration at this time. ICU team on board 2. Septic shock with multiorgan failure- due to MDR Acineobacter PNA. remains on 2 pressors and hydrocotrisone 100mg Q8H. MAP >65. IVF to keep CVP 8-12. on Azithro/vanco/minocyline/polymixin. ID on board. Contact and droplet precautions 3. RAOUL- due to septic shock. received HD on 06/19. tolerated HD yesterday with minimal volume removal. assess daily need for HD. Nephro on board. 4. Panocytopenia- due to septic shock and ARDS. acute hgb drop this AM. transfused 2 units PRBC this AM with good response. repeat CBC later today. normal transfusion thresholds. platelet count improved. no active bleeding at this time. HIT panel pending. heme on board 5. Hyperkalemia- resolved after HD 6 Respiratory acidosis- vent settings adjusted. repeat ABG 7. Acute toxic/metabolic encephalopathy- due to septic shock. unable to do sedation vacation at this time to fully assess mental status. cont full sedation. 8. DVT ppx- SCD. hold pharmacologic in setting of thrombocytopenia 9. poor overall prognosis. palliative care consulted 10. Full code. will need to determine goals of care with family The care of this patient involved high complexity decision making to prevent further life threatening deterioration of the patient's condition and/or to evaluate & treat vital organ system(s) failure or risk of failure. 40 minutes
[2018-06-22] MEDS ORDERED: NOREPINEPHRINE BITARTRATE 4 MG/4 ML ML IV ONE (15:01)
[2018-06-22] MEDS: SODIUM CHLORIDE 0.45% IV SCH (15:45)
[2018-06-22] MEDS: NOREPINEPHRINE BITARTRATE IV SCH (15:45)
--- NOTE | 2018-06-22 15:49 | PN ---
Physical Exam: SUBJECTIVE: Patient seen and examined at bedside, intubated and sedated. Dialysis yesterday tolerated without hypotension. Pressors reduced. Hb dropped to 5.8 last PM, transfused 2 units overnight with improvement. OBJECTIVE: Vital Signs Period Temp Pulse Resp BP Sys/Echevarria Pulse Ox Last 24 Hr 97.7 F-98.8 F 60-121 20-37 96-158/37-76 91-96 GENERAL: Intubated and sedated on propofol/fentanyl LUNGS: Decreased breath sounds and crackles b/l, mechanically ventilated HEART: S1S2 no m/r/g ABDOMEN: increasing firmness, worsening distention, purpura expanding EXTREMITIES: warm, non-pitting edema x 4 extremities upper>lower NEUROLOGICAL: unable to assess SKIN: Warm, dry Laboratory Results - last 24 hr 06/17/18 06/18/18 06/21/18 05:30 12:15 20:00 WBC 2.5 L RBC 2.45 L Hgb 5.8 L* Hct 17.5 L D MCV 71.4 L MCH 23.7 L MCHC 33.2 RDW 18.4 H Plt Count 148 D MPV 7.4 L D Absolute Neuts (auto) Neutrophils % Lymphocytes % Monocytes % Eosinophils % Basophils % Nucleated RBC % Hypochromia Platelet Estimate Platelet Comment Polychromasia Anisocytosis Microcytosis Target Cells PT with INR INR PTT (Actin FS) Fibrinogen Anticoagulation Therapy Puncture Site ABG pH ABG pCO2 at Pt Temp ABG pO2 at Pt Temp ABG HCO3 ABG O2 Sat (Measured) ABG O2 Content ABG Base Excess Timmy Test O2 Delivery Device Oxygen Flow Rate Vent Mode Vent Rate Mechanical Rate PEEP Pressure Support Vent Sodium Potassium Chloride Carbon Dioxide Anion Gap BUN Creatinine Creat Clearance w eGFR Random Glucose Calcium Phosphorus Magnesium Total Bilirubin Direct Bilirubin AST ALT Alkaline Phosphatase Total Protein Albumin HCV Quantitation Hcv not detected Blood Type B POSITIVE Antibody Screen Crossmatch See Detail 06/21/18 06/21/18 06/21/18 20:40 20:50 23:00 WBC 2.1 L RBC 2.45 L Hgb 5.8 L* Hct 17.6 L MCV 71.7 L MCH 23.8 L MCHC 33.3 RDW 18.4 H Plt Count 138 MPV 7.8 Absolute Neuts (auto) Neutrophils % Lymphocytes % Monocytes % Eosinophils % Basophils % Nucleated RBC % Hypochromia Platelet Estimate Platelet Comment Polychromasia Anisocytosis Microcytosis Target Cells PT with INR INR PTT (Actin FS) Fibrinogen Anticoagulation Therapy Puncture Site ABG pH ABG pCO2 at Pt Temp ABG pO2 at Pt Temp ABG HCO3 ABG O2 Sat (Measured) ABG O2 Content ABG Base Excess Timmy Test O2 Delivery Device Oxygen Flow Rate Vent Mode Vent Rate Mechanical Rate PEEP Pressure Support Vent Sodium 138 Potassium 4.2 Chloride 100 Carbon Dioxide 31 Anion Gap 7 L BUN 80 H Creatinine 2.1 H Creat Clearance w eGFR 24.11 Random Glucose 149 H Calcium 7.3 L Phosphorus Magnesium Total Bilirubin Direct Bilirubin AST ALT Alkaline Phosphatase Total Protein Albumin HCV Quantitation Blood Type B POSITIVE Antibody Screen Negative Crossmatch See Detail 06/22/18 06/22/18 06/22/18 06:00 07:32 07:32 WBC 2.1 L RBC 3.73 Hgb 9.9 L Hct 29.0 L D MCV 77.8 L MCH 26.5 D MCHC 34.1 RDW 21.0 H Plt Count 73 L D MPV 8.4 Absolute Neuts (auto) 1.9 Neutrophils % 88.2 H D Lymphocytes % 9.4 D Monocytes % 2.1 L D Eosinophils % 0.0 D Basophils % 0.3 Nucleated RBC % 0 Hypochromia 1+ Platelet Estimate Decreased Platelet Comment No clumping noted Polychromasia 1+ Anisocytosis 2+ Microcytosis 1+ Target Cells 2+ PT with INR 12.40 INR 1.05 PTT (Actin FS) 38.2 H Fibrinogen Anticoagulation Therapy No Result Required. Puncture Site Right radial ABG pH 7.14 L* ABG pCO2 at Pt Temp 82.0 H* D ABG pO2 at Pt Temp 84.2 D ABG HCO3 26.4 H ABG O2 Sat (Measured) 94.3 ABG O2 Content 12.5 L ABG Base Excess -3.5 L Timmy Test Positive O2 Delivery Device Mech vent Oxygen Flow Rate 45% Vent Mode A/c Vent Rate 22 Mechanical Rate Yes PEEP 5.0 Pressure Support Vent 300 Sodium Potassium Chloride Carbon Dioxide Anion Gap BUN Creatinine Creat Clearance w eGFR Random Glucose Calcium Phosphorus Magnesium Total Bilirubin Direct Bilirubin AST ALT Alkaline Phosphatase Total Protein Albumin HCV Quantitation Blood Type Antibody Screen Crossmatch 06/22/18 06/22/18 06/22/18 07:32 07:32 09:15 WBC RBC Hgb Hct MCV MCH MCHC RDW Plt Count MPV Absolute Neuts (auto) Neutrophils % Lymphocytes % Monocytes % Eosinophils % Basophils % Nucleated RBC % Hypochromia Platelet Estimate Platelet Comment Polychromasia Anisocytosis Microcytosis Target Cells PT with INR INR PTT (Actin FS) Fibrinogen 208.0 L D Anticoagulation Therapy Puncture Site ABG pH ABG pCO2 at Pt Temp ABG pO2 at Pt Temp ABG HCO3 ABG O2 Sat (Measured) ABG O2 Content ABG Base Excess Timmy Test O2 Delivery Device Oxygen Flow Rate Vent Mode Vent Rate Mechanical Rate PEEP Pressure Support Vent Sodium 134 L Potassium 4.7 Chloride 97 L Carbon Dioxide 26 Anion Gap 12 BUN 90 H Creatinine 2.4 H Creat Clearance w eGFR 20.66 Random Glucose 101 Calcium 7.7 L Phosphorus > 9.0 H* Magnesium 2.2 Total Bilirubin 2.2 H Direct Bilirubin 1.7 H Cancelled AST 79 H ALT 55 Alkaline Phosphatase 59 Total Protein 3.7 L Albumin 1.9 L HCV Quantitation Blood Type Antibody Screen Crossmatch 06/22/18 10:29 WBC RBC Hgb Hct MCV MCH MCHC RDW Plt Count MPV Absolute Neuts (auto) Neutrophils % Lymphocytes % Monocytes % Eosinophils % Basophils % Nucleated RBC % Hypochromia Platelet Estimate Platelet Comment Polychromasia Anisocytosis Microcytosis Target Cells PT with INR INR PTT (Actin FS) Fibrinogen Anticoagulation Therapy Puncture Site Right radial ABG pH 7.21 L* ABG pCO2 at Pt Temp 67.0 H* ABG pO2 at Pt Temp 93.0 ABG HCO3 25.9 ABG O2 Sat (Measured) 97.2 ABG O2 Content 13.3 L ABG Base Excess -2.3 L Timmy Test Positive O2 Delivery Device Mech vent Oxygen Flow Rate 45% Vent Mode A/c Vent Rate 28 Mechanical Rate Yes PEEP 5.0 Pressure Support Vent 300 Sodium Potassium Chloride Carbon Dioxide Anion Gap BUN Creatinine Creat Clearance w eGFR Random Glucose Calcium Phosphorus Magnesium Total Bilirubin Direct Bilirubin AST ALT Alkaline Phosphatase Total Protein Albumin HCV Quantitation Blood Type Antibody Screen Crossmatch Active Medications Generic Name Dose Route Start Last Admin Trade Name Freq PRN Reason Stop Dose Admin Acetaminophen 650 mg 06/12/18 17:35 06/13/18 01:30 Tylenol - PO 650 mg Q6H PRN Administration PAIN LEVEL 6-10 Albuterol Sulfate 1 amp 06/21/18 08:25 06/22/18 03:45 Ventolin 0.083% Nebulizer Soln - NEB 1 amp Q2H PRN Administration SHORT OF BREATH/WHEEZING Albuterol/Ipratropium 1 amp 06/16/18 14:00 06/22/18 14:52 Duoneb - NEB 1 amp Q4HPO ZACHARY Administration Bacitracin 1 applic 06/20/18 10:00 06/22/18 11:00 Bacitracin - TP 1 applic DAILY ZACHARY Administration Calcium Acetate 1,334 mg 06/21/18 08:21 06/22/18 12:18 Phoslo - PO Not Given TIDCM ZACHARY Chlorhexidine Gluconate 1 applic 06/12/18 22:00 06/21/18 22:52 Hibiclens For Decolonization - TP 1 applic HS ZACHARY Administration Ergocalciferol 50,000 unit 06/15/18 10:00 06/15/18 10:59 Drisdol - PO Not Given Q7D@1000 ZACHARY Ferrous Sulfate 300 mg 06/16/18 10:00 06/21/18 09:36 Feosol GT 300 mg DAILY ZACHARY Administration Fludrocortisone Acetate 0.05 mg 06/21/18 10:00 Florinef - GT DAILY ZACHARY Folic Acid 1 mg 06/13/18 10:00 06/21/18 09:27 Folic Acid - PO 1 mg DAILY ZACHARY Administration Hydrocortisone Sodium Succinate 100 mg 06/21/18 18:00 06/22/18 11:37 Solu-Cortef - IVPUSH 100 mg Q8H-IV ZACHARY Administration Propofol 1,000,000 mcg in 100 mls @ 1.935 mls/hr 06/15/18 01:45 06/22/18 11: 41 Diprivan - IVPB 40 mcg/kg/min TITR ZACHARY 15.48 mls/hr Administration Protocol 5 MCG/KG/MIN Minocycline HCl 100 mg/ 100 mls @ 100 mls/hr 06/17/18 15:00 06/22/18 15:24 Dextrose IVPB 100 mls/hr Q12H ZACHARY Administration Vasopressin 50 units/ Sodium 100 mls @ 4 mls/hr 06/18/18 17:25 06/22/18 11:40 Chloride IVPB 1 units/hr ASDIR ZACHARY 2 mls/hr Administration Protocol 2 UNITS/HR Famotidine/Sodium Chloride 20 mg in 50 mls @ 100 mls/hr 06/21/18 10:30 11:00 Pepcid 20 Mg Premixed Ivpb - IVPB 100 mls/hr BID ZACHARY Administration Sodium Chloride 250 mls @ 3,000 mls/hr 06/21/18 18:01 Normal Saline - IV 06/22/18 18:01 PRN PRN Hypotension during Dialysis Fentanyl 500 mcg/ Dextrose 100 mls @ 15 mls/hr 06/22/18 11:45 06/22/18 11:39 IVPB 75 mcg/hr TITR ZACHARY 15 mls/hr Administration Protocol 75 MCG/HR Azithromycin 500 mg in 250 mls @ 250 mls/hr 06/22/18 11:30 06/22/18 11:39 Zithromax 500mg Ivpb (Pre-Docked) IVPB 250 mls/hr DAILY ZACHARY Administration Sodium Bicarbonate 150 meq/ 1,150 mls @ 75 mls/hr 06/22/18 12:00 06/22/18 13: 00 Dextrose IV 75 mls/hr Q14H ZACHARY Administration Norepinephrine Bitartrate 8, 508 mls @ 83.82 mls/hr 06/22/18 15:28 000 mcg/ Sodium Chloride IV ASDIR ZACHARY Protocol 22 MCG/MIN Montelukast Sodium 10 mg 06/12/18 22:00 06/21/18 22:53 Singulair - PO Not Given HS ZACHARY Polyethylene Glycol 17 gm 06/12/18 17:35 Miralax (For Daily Use) - PO DAILY PRN CONSTIPATION Roflumilast 500 mcg 06/13/18 10:00 06/21/18 09:27 Daliresp - PO 500 mcg DAILY ZACHARY Administration Scopolamine HBr 1 patch 06/18/18 10:30 06/21/18 10:07 Transderm-Scop - TD 1 patch Q72H ZACHARY Administration ASSESSMENT/PLAN: 58 y/o F w/PMHx COPD (on home O2 3L), chronic anemia, HTN initially admitted to [facility] for COPD exacerbation, hospital course complicated by HAP, progressed to ARDS, now intubated in ICU #ARDS and septic shock 2/2 HAP -ventilated: vent settings to maintain >90 O2 sat, RR increased d/t elevated PaCO2, repeat ABG improved -lungs stable/worsening on CXR -levophed + vasopressin + hydrocortisone shock dose 100q8 to maintain MAP >65 -duonebs standing q4, albuterol q4 PRN -nepro held d/t residuals -propofol/fentanyl titrated to prevent bucking ventilator -CXR daily -ABG daily -repeat sputum Cx 06/15 + acinetobacter -Per ID, minocycline/zithromax +/- polymyxin dosing d/w nephro, add'l Vanco given after HD -must be on fluids d/t nephrotoxic agents -IVF: switched to 150 meq bicarb in d5w per nephro -LFTs further worsening w/ significant direct bilirubin #RAOUL/ARF -Cr and lytes improved immediately after HD, now worsening again -repeat HD tomorrow -IVF per nephro reccs: 150 meq bicarb in d5w -monitor closely d/t nephrotoxic agents #pancytopenia -AM Hb 5.8 --> 9.9 s/p 2 units, AM Plt 138 --> 73 -AM WBC 2.1, abs PMNs 1900 -repeat PM CBC -likely multifactorial d/t sepsis, ARDS -abdominal distention, firmness, purpura all worsening -PT/INR wnl, PTT elevated, Fibrinogen 899 --> 208 -serial fibrinogen per heme, may require FFP, not yet meeting DIC criteria given normal PT/INR -anti-Plt ABs neg (HIT r/o) -immunologic studies negative -AC held -monitor CBC closely, transfusion threshhold 7 for PRBC, 20 for Plt #hyperkalemia/hyperphosphatemia -K 4.7, Ph 9 this AM -temporizing measures as necessary, monitor lytes -for HD tomorrow #palliative care -GOC d/w family, poor prognosis explained fully with all questions asked and answered #FEN -150 meq bicarb in d5w -CMP in AM -feeds held d/t residuals #PPx - DVT: SCDs - GI: Pepcid 20 IV BID #Dispo - -ICU Visit type - Emergency Visit Emergency Visit: No - New Patient This patient is new to me today: No - Critical Care Critical Care patient: Yes Total Critical Care Time (in minutes): 40 Critical Care Statement: The care of this patient involved high complexity decision making to prevent further life threatening deterioration of the patient 's condition and/or to evaluate & treat vital organ system(s) failure or risk of failure.
--- NOTE | 2018-06-22 16:06 | PN ---
Physical Exam: SUBJECTIVE: Patient seen and examined at bedside this morning. Patient intubated and sedated. OBJECTIVE: Vital Signs Period Temp Pulse Resp BP Sys/Echeavrria Pulse Ox Last 24 Hr 97.6 F-98.8 F 60-121 20-37 96-158/37-60 91-96 GENERAL: Patient is sedated, intubated. NECK: Trachea midline, full range of motion, supple. LUNGS: + diffuse rhonchi bilaterally, decreased air entry HEART: Tachycardic, normal S1, S2 without murmur, rub or gallop. ABDOMEN: Soft, nontender, distended, normoactive bowel sounds. EXTREMITIES: 2+ pulses, warm, well-perfused, no edema. SKIN: Warm, dry, normal turgor, no rashes or lesions not Laboratory Results - last 24 hr 06/17/18 06/18/18 06/21/18 05:30 12:15 20:00 WBC 2.5 L RBC 2.45 L Hgb 5.8 L* Hct 17.5 L D MCV 71.4 L MCH 23.7 L MCHC 33.2 RDW 18.4 H Plt Count 148 D MPV 7.4 L D Absolute Neuts (auto) Neutrophils % Lymphocytes % Monocytes % Eosinophils % Basophils % Nucleated RBC % Hypochromia Platelet Estimate Platelet Comment Polychromasia Anisocytosis Microcytosis Target Cells PT with INR INR PTT (Actin FS) Fibrinogen Anticoagulation Therapy Puncture Site ABG pH ABG pCO2 at Pt Temp ABG pO2 at Pt Temp ABG HCO3 ABG O2 Sat (Measured) ABG O2 Content ABG Base Excess Timmy Test O2 Delivery Device Oxygen Flow Rate Vent Mode Vent Rate Mechanical Rate PEEP Pressure Support Vent Sodium Potassium Chloride Carbon Dioxide Anion Gap BUN Creatinine Creat Clearance w eGFR Random Glucose Calcium Phosphorus Magnesium Total Bilirubin Direct Bilirubin AST ALT Alkaline Phosphatase Total Protein Albumin HCV Quantitation Hcv not detected Blood Type B POSITIVE Antibody Screen Crossmatch See Detail 06/21/18 06/21/18 06/21/18 20:40 20:50 23:00 WBC 2.1 L RBC 2.45 L Hgb 5.8 L* Hct 17.6 L MCV 71.7 L MCH 23.8 L MCHC 33.3 RDW 18.4 H Plt Count 138 MPV 7.8 Absolute Neuts (auto) Neutrophils % Lymphocytes % Monocytes % Eosinophils % Basophils % Nucleated RBC % Hypochromia Platelet Estimate Platelet Comment Polychromasia Anisocytosis Microcytosis Target Cells PT with INR INR PTT (Actin FS) Fibrinogen Anticoagulation Therapy Puncture Site ABG pH ABG pCO2 at Pt Temp ABG pO2 at Pt Temp ABG HCO3 ABG O2 Sat (Measured) ABG O2 Content ABG Base Excess Itmmy Test O2 Delivery Device Oxygen Flow Rate Vent Mode Vent Rate Mechanical Rate PEEP Pressure Support Vent Sodium 138 Potassium 4.2 Chloride 100 Carbon Dioxide 31 Anion Gap 7 L BUN 80 H Creatinine 2.1 H Creat Clearance w eGFR 24.11 Random Glucose 149 H Calcium 7.3 L Phosphorus Magnesium Total Bilirubin Direct Bilirubin AST ALT Alkaline Phosphatase Total Protein Albumin HCV Quantitation Blood Type B POSITIVE Antibody Screen Negative Crossmatch See Detail 06/22/18 06/22/18 06/22/18 06:00 07:32 07:32 WBC 2.1 L RBC 3.73 Hgb 9.9 L Hct 29.0 L D MCV 77.8 L MCH 26.5 D MCHC 34.1 RDW 21.0 H Plt Count 73 L D MPV 8.4 Absolute Neuts (auto) 1.9 Neutrophils % 88.2 H D Lymphocytes % 9.4 D Monocytes % 2.1 L D Eosinophils % 0.0 D Basophils % 0.3 Nucleated RBC % 0 Hypochromia 1+ Platelet Estimate Decreased Platelet Comment No clumping noted Polychromasia 1+ Anisocytosis 2+ Microcytosis 1+ Target Cells 2+ PT with INR 12.40 INR 1.05 PTT (Actin FS) 38.2 H Fibrinogen Anticoagulation Therapy No Result Required. Puncture Site Right radial ABG pH 7.14 L* ABG pCO2 at Pt Temp 82.0 H* D ABG pO2 at Pt Temp 84.2 D ABG HCO3 26.4 H ABG O2 Sat (Measured) 94.3 ABG O2 Content 12.5 L ABG Base Excess -3.5 L Timmy Test Positive O2 Delivery Device Mech vent Oxygen Flow Rate 45% Vent Mode A/c Vent Rate 22 Mechanical Rate Yes PEEP 5.0 Pressure Support Vent 300 Sodium Potassium Chloride Carbon Dioxide Anion Gap BUN Creatinine Creat Clearance w eGFR Random Glucose Calcium Phosphorus Magnesium Total Bilirubin Direct Bilirubin AST ALT Alkaline Phosphatase Total Protein Albumin HCV Quantitation Blood Type Antibody Screen Crossmatch 06/22/18 06/22/18 06/22/18 07:32 07:32 09:15 WBC RBC Hgb Hct MCV MCH MCHC RDW Plt Count MPV Absolute Neuts (auto) Neutrophils % Lymphocytes % Monocytes % Eosinophils % Basophils % Nucleated RBC % Hypochromia Platelet Estimate Platelet Comment Polychromasia Anisocytosis Microcytosis Target Cells PT with INR INR PTT (Actin FS) Fibrinogen 208.0 L D Anticoagulation Therapy Puncture Site ABG pH ABG pCO2 at Pt Temp ABG pO2 at Pt Temp ABG HCO3 ABG O2 Sat (Measured) ABG O2 Content ABG Base Excess Timmy Test O2 Delivery Device Oxygen Flow Rate Vent Mode Vent Rate Mechanical Rate PEEP Pressure Support Vent Sodium 134 L Potassium 4.7 Chloride 97 L Carbon Dioxide 26 Anion Gap 12 BUN 90 H Creatinine 2.4 H Creat Clearance w eGFR 20.66 Random Glucose 101 Calcium 7.7 L Phosphorus > 9.0 H* Magnesium 2.2 Total Bilirubin 2.2 H Direct Bilirubin 1.7 H Cancelled AST 79 H ALT 55 Alkaline Phosphatase 59 Total Protein 3.7 L Albumin 1.9 L HCV Quantitation Blood Type Antibody Screen Crossmatch 06/22/18 10:29 WBC RBC Hgb Hct MCV MCH MCHC RDW Plt Count MPV Absolute Neuts (auto) Neutrophils % Lymphocytes % Monocytes % Eosinophils % Basophils % Nucleated RBC % Hypochromia Platelet Estimate Platelet Comment Polychromasia Anisocytosis Microcytosis Target Cells PT with INR INR PTT (Actin FS) Fibrinogen Anticoagulation Therapy Puncture Site Right radial ABG pH 7.21 L* ABG pCO2 at Pt Temp 67.0 H* ABG pO2 at Pt Temp 93.0 ABG HCO3 25.9 ABG O2 Sat (Measured) 97.2 ABG O2 Content 13.3 L ABG Base Excess -2.3 L Timmy Test Positive O2 Delivery Device Mech vent Oxygen Flow Rate 45% Vent Mode A/c Vent Rate 28 Mechanical Rate Yes PEEP 5.0 Pressure Support Vent 300 Sodium Potassium Chloride Carbon Dioxide Anion Gap BUN Creatinine Creat Clearance w eGFR Random Glucose Calcium Phosphorus Magnesium Total Bilirubin Direct Bilirubin AST ALT Alkaline Phosphatase Total Protein Albumin HCV Quantitation Blood Type Antibody Screen Crossmatch Active Medications Generic Name Dose Route Start Last Admin Trade Name Freq PRN Reason Stop Dose Admin Acetaminophen 650 mg 06/12/18 17:35 06/13/18 01:30 Tylenol - PO 650 mg Q6H PRN Administration PAIN LEVEL 6-10 Albuterol Sulfate 1 amp 06/21/18 08:25 06/22/18 03:45 Ventolin 0.083% Nebulizer Soln - NEB 1 amp Q2H PRN Administration SHORT OF BREATH/WHEEZING Albuterol/Ipratropium 1 amp 06/16/18 14:00 06/22/18 14:52 Duoneb - NEB 1 amp Q4HPO ZACHARY Administration Bacitracin 1 applic 06/20/18 10:00 06/22/18 11:00 Bacitracin - TP 1 applic DAILY ZACHARY Administration Calcium Acetate 1,334 mg 06/21/18 08:21 06/22/18 12:18 Phoslo - PO Not Given TIDCM ZACHARY Chlorhexidine Gluconate 1 applic 06/12/18 22:00 06/21/18 22:52 Hibiclens For Decolonization - TP 1 applic HS ZACHARY Administration Ergocalciferol 50,000 unit 06/15/18 10:00 06/15/18 10:59 Drisdol - PO Not Given Q7D@1000 ZACHARY Ferrous Sulfate 300 mg 06/16/18 10:00 06/21/18 09:36 Feosol GT 300 mg DAILY ZACHARY Administration Fludrocortisone Acetate 0.05 mg 06/21/18 10:00 Florinef - GT DAILY ZACHARY Folic Acid 1 mg 06/13/18 10:00 06/21/18 09:27 Folic Acid - PO 1 mg DAILY ZACHARY Administration Hydrocortisone Sodium Succinate 100 mg 06/21/18 18:00 06/22/18 11:37 Solu-Cortef - IVPUSH 100 mg Q8H-IV ZACHARY Administration Propofol 1,000,000 mcg in 100 mls @ 1.935 mls/hr 06/15/18 01:45 06/22/18 11: 41 Diprivan - IVPB 40 mcg/kg/min TITR ZACHARY 15.48 mls/hr Administration Protocol 5 MCG/KG/MIN Minocycline HCl 100 mg/ 100 mls @ 100 mls/hr 06/17/18 15:00 06/22/18 15:24 Dextrose IVPB 100 mls/hr Q12H ZACHARY Administration Vasopressin 50 units/ Sodium 100 mls @ 4 mls/hr 06/18/18 17:25 06/22/18 11:40 Chloride IVPB 1 units/hr ASDIR ZACHARY 2 mls/hr Administration Protocol 2 UNITS/HR Famotidine/Sodium Chloride 20 mg in 50 mls @ 100 mls/hr 06/21/18 10:30 11:00 Pepcid 20 Mg Premixed Ivpb - IVPB 100 mls/hr BID ZACHARY Administration Sodium Chloride 250 mls @ 3,000 mls/hr 06/21/18 18:01 Normal Saline - IV 06/22/18 18:01 PRN PRN Hypotension during Dialysis Fentanyl 500 mcg/ Dextrose 100 mls @ 15 mls/hr 06/22/18 11:45 06/22/18 15:44 IVPB 75 mcg/hr TITR ZACHARY 15 mls/hr Administration Protocol 75 MCG/HR Azithromycin 500 mg in 250 mls @ 250 mls/hr 06/22/18 11:30 06/22/18 11:39 Zithromax 500mg Ivpb (Pre-Docked) IVPB 250 mls/hr DAILY ZACHARY Administration Sodium Bicarbonate 150 meq/ 1,150 mls @ 75 mls/hr 06/22/18 12:00 06/22/18 13: 00 Dextrose IV 75 mls/hr Q14H ZACHARY Administration Norepinephrine Bitartrate 8, 508 mls @ 83.82 mls/hr 06/22/18 15:28 06/22/18 15:45 000 mcg/ Sodium Chloride IV 22 mcg/min ASDIR ZACHARY 83.82 mls/hr Administration Protocol 22 MCG/MIN Montelukast Sodium 10 mg 06/12/18 22:00 06/21/18 22:53 Singulair - PO Not Given HS ZACHARY Polyethylene Glycol 17 gm 06/12/18 17:35 Miralax (For Daily Use) - PO DAILY PRN CONSTIPATION Roflumilast 500 mcg 06/13/18 10:00 06/21/18 09:27 Daliresp - PO 500 mcg DAILY ZACHARY Administration Scopolamine HBr 1 patch 06/18/18 10:30 06/21/18 10:07 Transderm-Scop - TD 1 patch Q72H ZACHARY Administration Imaging: Chest X-Ray (05/27/18): No significant interval change. Persistent bilateral increased interstitial markings. Differential diagnosis again includes chronic interstitial lung disease. Cannot rule out noncardiogenic mild pulmonary venous congestion or interstitial infiltrates. Chest X-ray (05/30/18): No acute pathology or significant change. Chest CT scan without contrast (05/31/18): Moderately severe COPD with extensive bilateral bronchiectasis. These findings are unchanged since a previous study of 02/07/18. There is no evidence of acute pathology within the chest. CXR (06/06/18) 2 views of the some minimal degenerative changes with wedging. The soft tissues are intact. The chest reveal a normal-sized heart, normal knob and normal genesis. There are some coarse lung changes. There may be some linear atelectasis/density by the left heart border. Since the prior study 05/30/18, the density by the left heart border has become apparent. This most likely represents a focal area of atelectasis. CXR (06/10/18): New pulmonary consolidation medial aspect of the left upper lung zone obscuring aortic arch. No pleural effusion, or pneumothorax seen. No evidence of vascular congestive changes. CXR (06/13/18): Resolving segmental left upper lobe pneumonia. Left lower lobe pneumonia unchanged. CXR (06/14/18): No significant change in left sided infiltrates. ASSESSMENT/PLAN: Patient is a 58 year old female who presented with shortness of breath and found to be in COPD exacerbation. #Acute Respiratory Distress Syndrome - Patient intubated due to respiratory distress - levophed + vasopressin , titrate to maintain MAP>65 - Solumedrol discontinued - Hydrocortisone shock dose 100 q8 - Duonebs q4 STA, - albuterol q4 PRN - Daliresp GT - Nasogastric tube placed. - propofol/fentanyl titrated to prevent bucking ventilator - CXR and ABG daily - LFTs worsening #Hospital acquired pneumonia - CXR - worsening - Sputum culture - Acinetobacter baumanii/haemol. - ID (Dr. Tao) consulted. Recommendations appreciated. - Polymyxin, minocycline, Azithromax -- renally dosed - Additional Vancomycin given after hemodialysis - Must be on continuous IV fluids due to Nephrotoxic antibiotics. #RAOUL on CKD: -Renal ultrasound done. -Nephrology (Dr. Marquez) consulted. Recommendations appreciated. -worsening renal function -For dialysis tomorrow -Maintain daily and monitor Urine output -Renal dose meds for a GFR of 16 -Potassium treated medically -Renal US - suggestive of CKD -FeNa 0.8%, likely pre-renal 2/2 hypotension -14 Iranian catheter placed by urology #Hyperkalemia/hyperphosphatemia: -K 4.7, Ph 9 -for dialysis tomorrow #Pancytopenia: Hgb 9.9, WBC 2.1, Plt 73 -likely multifactorial from ARDS, sepsis -Hematology consulted. Recommendations appreciated. -PT, INR wnl, PTT elevated, Fibrinogen 208 -serial fibrinogen -may required FFP -hold lovenox -monitor CBC closely, transfusion threshhold 7 for PRBC, 20 for Plt -Anti-Plt Ab negative, immunologic studies negative #FEN - D5w + 150 meq bicarb - cmp monitoring - Nepro GT held due to residuals #Prophylaxis - Hold Lovenox for now. Patient has low platelet count. #Disposition - To ICU for closer monitoring. Visit type - Emergency Visit Emergency Visit: Yes ED Registration Date: 05/27/18 Care time: The patient presented to the Emergency Department on the above date and was hospitalized for further evaluation of their emergent condition. - New Patient This patient is new to me today: Yes Date on this admission: 06/22/18 - Critical Care Critical Care patient: Yes Total Critical Care Time (in minutes): 40 Critical Care Statement: The care of this patient involved high complexity decision making to prevent further life threatening deterioration of the patient 's condition and/or to evaluate & treat vital organ system(s) failure or risk of failure.
[2018-06-22 16:38] LABS: HEMATOCRIT 29.3 % (32.4-45.2); HEMOGLOBIN 10.1 GM/dL (10.7-15.3); MCH 26.6 pg (25.7-33.7); MCHC 34.5 g/dl (32.0-36.0); MEAN CELL VOLUME 77.2 fl (80-96); MEAN PLT VOLUME 8.9 fl (7.5-11.1); PLATELET COUNT 62 K/MM3 (134-434); RBC 3.79 M/mm3 (3.60-5.2); RDW 20.3 % (11.6-15.6); WHITE BLOOD COUNT 2.2 K/mm3 (4.0-10.0)
[2018-06-22] MEDS: CHLORHEXIDINE GLUCONATE 4% CLEANSER FOR DECOLONIZATION TP SCH (23:35)
[2018-06-22] MEDS: MONTELUKAST NA 10 MG TABLET PO SCH (23:35)
[2018-06-23] MEDS ORDERED: VASOPRESSIN 20 UNITS/ML VIAL IV ONE ×2 (01:54→15:53)
[2018-06-23] MEDS: ALBUTEROL SO4 2.5/IPRATROPIUM 0.5 INH SOL 3 ML VIAL.NEB. NEB SCH ×6 (02:00→21:52)
[2018-06-23] MEDS: HYDROCORTISONE SOD SUCCINATE 100 MG/2 ML VIAL IVPUSH SCH ×3 (02:06→17:02)
[2018-06-23] MEDS: WATER IVPB SCH ×2 (02:06→14:40)
[2018-06-23] MEDS: MINOCYCLINE HCL IVPB SCH ×2 (02:06→14:40)
[2018-06-23] MEDS: DEXTROSE 5% IVPB SCH ×2 (02:06→14:40)
[2018-06-23] MEDS: DEXTROSE 5%-WATER - 1,000 ML with SODIUM BICARBONATE 8.4% - 150 MEQ IV SCH ×2 (02:07→16:00)
[2018-06-23 05:59] LABS: ARTERIAL BLD GAS O2 SATURATION 96.2 % (90-98.9); ARTERIAL BLOOD GAS BASE EXCESS -0.8 meq/l (-2-2); ARTERIAL BLOOD GAS PO2 90.8 mmHg (80-100)
[2018-06-23 06:00] LABS: ALLENS TEST POSITIVE; ARTERIAL BLOOD GAS pH 7.25 (7.35-7.45)
[2018-06-23 06:01] LABS: ARTERIAL BLOOD GAS PCO2 64.3 mmHg (35-45)
[2018-06-23 06:44] LABS: BASO % 0.1 % (0-2.0); HEMATOCRIT 30.3 % (32.4-45.2); HEMOGLOBIN 10.7 GM/dL (10.7-15.3); LYMPH % 14.4 % (8-40); MCH 26.8 pg (25.7-33.7); MCHC 35.4 g/dl (32.0-36.0); MEAN CELL VOLUME 75.6 fl (80-96); MEAN PLT VOLUME 8.8 fl (7.5-11.1); MONO % 0.2 % (3.8-10.2); NEUT % 85.3 % (42.8-82.8); RBC 4.01 M/mm3 (3.60-5.2); RDW 20.9 % (11.6-15.6); WHITE BLOOD COUNT 2.4 K/mm3 (4.0-10.0)
[2018-06-23] MEDS ORDERED: fentaNYL CITRATE 250 MCG/5 ML VIAL ONE ×3 (06:44→21:48)
[2018-06-23] MEDS: FENTANYL INJECTION 500 MCG in DEXTROSE 5%-WATER - 90 ML IVPB SCH ×3 (06:55→22:00)
[2018-06-23 07:01] LABS: INR 1.1 (0.83-1.09)
[2018-06-23 07:12] LABS: ALBUMIN 1.3 g/dl (3.4-5.0); ALK PHOS 65 U/L (45-117); ANION GAP 14 MMOL/L (8-16); BLOOD UREA NITROGEN 98 mg/dL (7-18); CALCIUM 7.1 mg/dL (8.5-10.1); CHLORIDE 92 mmol/L (98-107); CO2 28 mmol/L (21-32); CREATININE 2.5 mg/dL (0.55-1.3); GLUCOSE,RANDOM 122 mg/dL (74-106); POTASSIUM 4.2 mmol/L (3.5-5.1); SGOT/AST 112 U/L (15-37); SGPT/ALT 83 U/L (13-61); SODIUM 133 mmol/L (136-145); TOT PROT 3.3 g/dl (6.4-8.2)
[2018-06-23] MEDS ORDERED: SODIUM CHLORIDE 250 ML IV PRN (07:25)
[2018-06-23 07:32] LABS: PLATELET COUNT 29 K/MM3 (134-434)
[2018-06-23 08:20] LABS: PHOSPHOROUS 9.4 mg/dL (2.5-4.9)
[2018-06-23] MEDS: CALCIUM ACETATE 667 MG CAPSULE (FP) PO SCH ×3 (08:47→17:02)
--- NOTE | 2018-06-23 09:03 | PN ---
Physical Exam: SUBJECTIVE: Patient seen and examined at bedside, intubated and sedated. AM Plts 29, to be transfused 2 units w/ dialysis today. OBJECTIVE: Vital Signs Period Temp Pulse Resp BP Sys/Echevarria Pulse Ox Last 24 Hr 97.5 F-98.4 F 79-107 18-29 108-133/42-73 100-100 GENERAL: Intubated and sedated on propofol/fentanyl LUNGS: Decreased breath sounds and crackles b/l, mechanically ventilated HEART: S1S2 no m/r/g ABDOMEN: increasing firmness, worsening distention, purpura expanding EXTREMITIES: warm, non-pitting edema x 4 extremities NEUROLOGICAL: unable to assess SKIN: Warm, dry, fluid-filled bullae on L medial thigh Laboratory Results - last 24 hr 06/17/18 06/22/18 06/22/18 05:30 07:32 07:32 WBC 2.1 L RBC 3.73 Hgb 9.9 L Hct 29.0 L D MCV 77.8 L MCH 26.5 D MCHC 34.1 RDW 21.0 H Plt Count 73 L D MPV 8.4 Absolute Neuts (auto) 1.9 Neutrophils % 88.2 H D Lymphocytes % 9.4 D Monocytes % 2.1 L D Eosinophils % 0.0 D Basophils % 0.3 Nucleated RBC % 0 Hypochromia 1+ Platelet Estimate Decreased Platelet Comment No clumping noted Polychromasia 1+ Anisocytosis 2+ Microcytosis 1+ Target Cells 2+ PT with INR 12.40 INR 1.05 PTT (Actin FS) 38.2 H Fibrinogen Puncture Site ABG pH ABG pCO2 at Pt Temp ABG pO2 at Pt Temp ABG HCO3 ABG O2 Sat (Measured) ABG O2 Content ABG Base Excess Timmy Test O2 Delivery Device Oxygen Flow Rate Vent Mode Vent Rate Mechanical Rate PEEP Pressure Support Vent Sodium Potassium Chloride Carbon Dioxide Anion Gap BUN Creatinine Creat Clearance w eGFR Random Glucose Calcium Phosphorus Magnesium Total Bilirubin Direct Bilirubin AST ALT Alkaline Phosphatase Total Protein Albumin Random Vancomycin HCV Quantitation Hcv not detected 06/22/18 06/22/18 06/22/18 07:32 07:32 09:15 WBC RBC Hgb Hct MCV MCH MCHC RDW Plt Count MPV Absolute Neuts (auto) Neutrophils % Lymphocytes % Monocytes % Eosinophils % Basophils % Nucleated RBC % Hypochromia Platelet Estimate Platelet Comment Polychromasia Anisocytosis Microcytosis Target Cells PT with INR INR PTT (Actin FS) Fibrinogen 208.0 L D Puncture Site ABG pH ABG pCO2 at Pt Temp ABG pO2 at Pt Temp ABG HCO3 ABG O2 Sat (Measured) ABG O2 Content ABG Base Excess Timmy Test O2 Delivery Device Oxygen Flow Rate Vent Mode Vent Rate Mechanical Rate PEEP Pressure Support Vent Sodium 134 L Potassium 4.7 Chloride 97 L Carbon Dioxide 26 Anion Gap 12 BUN 90 H Creatinine 2.4 H Creat Clearance w eGFR 20.66 Random Glucose 101 Calcium 7.7 L Phosphorus > 9.0 H* Magnesium 2.2 Total Bilirubin 2.2 H Direct Bilirubin 1.7 H Cancelled AST 79 H ALT 55 Alkaline Phosphatase 59 Total Protein 3.7 L Albumin 1.9 L Random Vancomycin HCV Quantitation 06/22/18 06/22/18 06/23/18 10:29 15:47 05:30 WBC 2.2 L RBC 3.79 Hgb 10.1 L Hct 29.3 L MCV 77.2 L MCH 26.6 MCHC 34.5 RDW 20.3 H Plt Count 62 L MPV 8.9 Absolute Neuts (auto) Neutrophils % Lymphocytes % Monocytes % Eosinophils % Basophils % Nucleated RBC % Hypochromia Platelet Estimate Platelet Comment Polychromasia Anisocytosis Microcytosis Target Cells PT with INR INR PTT (Actin FS) Fibrinogen Puncture Site Right radial ABG pH 7.21 L* ABG pCO2 at Pt Temp 67.0 H* ABG pO2 at Pt Temp 93.0 ABG HCO3 25.9 ABG O2 Sat (Measured) 97.2 ABG O2 Content 13.3 L ABG Base Excess -2.3 L Timmy Test Positive O2 Delivery Device Mech vent Oxygen Flow Rate 45% Vent Mode A/c Vent Rate 28 Mechanical Rate Yes PEEP 5.0 Pressure Support Vent 300 Sodium Potassium Chloride Carbon Dioxide Anion Gap BUN Creatinine Creat Clearance w eGFR Random Glucose Calcium Phosphorus Magnesium Total Bilirubin Direct Bilirubin AST ALT Alkaline Phosphatase Total Protein Albumin Random Vancomycin 8.5 L HCV Quantitation 06/23/18 06/23/18 06/23/18 05:30 05:30 05:30 WBC 2.4 L RBC 4.01 Hgb 10.7 Hct 30.3 L MCV 75.6 L MCH 26.8 MCHC 35.4 RDW 20.9 H Plt Count 29 L* D MPV 8.8 Absolute Neuts (auto) 2.0 Neutrophils % 85.3 H Lymphocytes % 14.4 D Monocytes % 0.2 L D Eosinophils % 0.0 Basophils % 0.1 Nucleated RBC % 0 Hypochromia Platelet Estimate Platelet Comment Polychromasia Anisocytosis Microcytosis Target Cells PT with INR 13.00 INR 1.10 H PTT (Actin FS) 44.0 H Fibrinogen 207.0 L Puncture Site ABG pH ABG pCO2 at Pt Temp ABG pO2 at Pt Temp ABG HCO3 ABG O2 Sat (Measured) ABG O2 Content ABG Base Excess Timmy Test O2 Delivery Device Oxygen Flow Rate Vent Mode Vent Rate Mechanical Rate PEEP Pressure Support Vent Sodium Potassium Chloride Carbon Dioxide Anion Gap BUN Creatinine Creat Clearance w eGFR Random Glucose Calcium Phosphorus Magnesium Total Bilirubin Direct Bilirubin AST ALT Alkaline Phosphatase Total Protein Albumin Random Vancomycin HCV Quantitation 06/23/18 06/23/18 05:30 06:00 WBC RBC Hgb Hct MCV MCH MCHC RDW Plt Count MPV Absolute Neuts (auto) Neutrophils % Lymphocytes % Monocytes % Eosinophils % Basophils % Nucleated RBC % Hypochromia Platelet Estimate Platelet Comment Polychromasia Anisocytosis Microcytosis Target Cells PT with INR INR PTT (Actin FS) Fibrinogen Puncture Site Right radial ABG pH 7.25 L ABG pCO2 at Pt Temp 64.3 H* ABG pO2 at Pt Temp 90.8 ABG HCO3 26.9 H ABG O2 Sat (Measured) 96.2 ABG O2 Content 14.3 L ABG Base Excess -0.8 Timmy Test Positive O2 Delivery Device Mech vent Oxygen Flow Rate 45% Vent Mode A/c Vent Rate 28 Mechanical Rate Yes PEEP 5.0 Pressure Support Vent 300 Sodium 133 L Potassium 4.2 Chloride 92 L Carbon Dioxide 28 Anion Gap 14 BUN 98 H Creatinine 2.5 H Creat Clearance w eGFR 19.71 Random Glucose 122 H Calcium 7.1 L Phosphorus Magnesium 2.0 Total Bilirubin 2.0 H Direct Bilirubin AST 112 H ALT 83 H Alkaline Phosphatase 65 Total Protein 3.3 L Albumin 1.3 L Random Vancomycin HCV Quantitation Active Medications Generic Name Dose Route Start Last Admin Trade Name Freq PRN Reason Stop Dose Admin Acetaminophen 650 mg 06/12/18 17:35 06/13/18 01:30 Tylenol - PO 650 mg Q6H PRN Administration PAIN LEVEL 6-10 Albumin Human 12.5 gm 06/23/18 07:30 Albumin Human 25% IVPB 06/23/18 09:01 Q30M [facility] Albuterol Sulfate 1 amp 06/21/18 08:25 06/22/18 03:45 Ventolin 0.083% Nebulizer Soln - NEB 1 amp Q2H PRN Administration SHORT OF BREATH/WHEEZING Albuterol/Ipratropium 1 amp 06/16/18 14:00 06/23/18 06:00 Duoneb - NEB 1 amp Q4HPO [facility] Administration Bacitracin 1 applic 06/20/18 10:00 06/22/18 11:00 Bacitracin - TP 1 applic DAILY [facility] Administration Calcium Acetate 1,334 mg 06/21/18 08:21 06/22/18 18:39 Phoslo - PO Not Given TIDCM [facility] Chlorhexidine Gluconate 1 applic 06/12/18 22:00 06/22/18 23:35 Hibiclens For Decolonization - TP 1 applic HS [facility] Administration Ergocalciferol 50,000 unit 06/15/18 10:00 06/15/18 10:59 Drisdol - PO Not Given Q7D@1000 [facility] Ferrous Sulfate 300 mg 06/16/18 10:00 06/21/18 09:36 Feosol GT 300 mg DAILY [facility] Administration Fludrocortisone Acetate 0.05 mg 06/21/18 10:00 Florinef - GT DAILY [facility] Folic Acid 1 mg 06/13/18 10:00 06/21/18 09:27 Folic Acid - PO 1 mg DAILY [facility] Administration Hydrocortisone Sodium Succinate 100 mg 06/21/18 18:00 06/23/18 02:06 Solu-Cortef - IVPUSH 100 mg Q8H-IV [facility] Administration Minocycline HCl 100 mg/ 100 mls @ 100 mls/hr 06/17/18 15:00 06/23/18 02:06 Dextrose IVPB 100 mls/hr Q12H [facility] Administration Vasopressin 50 units/ Sodium 100 mls @ 4 mls/hr 06/18/18 17:25 06/22/18 18:37 Chloride IVPB Not Given ASDIR [facility] Protocol 2 UNITS/HR Famotidine/Sodium Chloride 20 mg in 50 mls @ 100 mls/hr 06/21/18 10:30 23:35 Pepcid 20 Mg Premixed Ivpb - IVPB 100 mls/hr BID [facility] Administration Fentanyl 500 mcg/ Dextrose 100 mls @ 15 mls/hr 06/22/18 11:45 06/23/18 06:55 IVPB 75 mcg/hr TITR [facility] 15 mls/hr Administration Protocol 75 MCG/HR Azithromycin 500 mg in 250 mls @ 250 mls/hr 06/22/18 11:30 06/22/18 11:39 Zithromax 500mg Ivpb (Pre-Docked) IVPB 250 mls/hr DAILY [facility] Administration Sodium Bicarbonate 150 meq/ 1,150 mls @ 75 mls/hr 06/22/18 12:00 06/23/18 02: 07 Dextrose IV Not Given Q14H [facility] Norepinephrine Bitartrate 8, 508 mls @ 83.82 mls/hr 06/22/18 15:28 06/22/18 15:45 000 mcg/ Sodium Chloride IV 22 mcg/min ASDIR [facility] 83.82 mls/hr Administration Protocol 22 MCG/MIN Propofol 1,000,000 mcg in 100 mls @ 5.334 mls/hr 06/22/18 16:15 06/22/18 20: 12 Diprivan - IVPB 25 mcg/kg/min TITR [facility] 13.336 mls/hr Administration Protocol 10 MCG/KG/MIN Sodium Chloride 250 mls @ 3,000 mls/hr 06/23/18 07:25 Normal Saline - IV 06/24/18 07:26 PRN PRN Hypotension during Dialysis Montelukast Sodium 10 mg 06/12/18 22:00 06/22/18 23:35 Singulair - PO 10 mg HS [facility] Administration Polyethylene Glycol 17 gm 06/12/18 17:35 Miralax (For Daily Use) - PO DAILY PRN CONSTIPATION Roflumilast 500 mcg 06/13/18 10:00 06/21/18 09:27 Daliresp - PO 500 mcg DAILY [facility] Administration Scopolamine HBr 1 patch 06/18/18 10:30 06/21/18 10:07 Transderm-Scop - TD 1 patch Q72H [facility] Administration ASSESSMENT/PLAN: 58 y/o F w/PMHx COPD (on home O2 3L), chronic anemia, HTN initially admitted to [facility] for COPD exacerbation, hospital course complicated by HAP, progressed to ARDS, now intubated in ICU #ARDS and septic shock 2/2 HAP -ventilated: vent settings to maintain >90 O2 sat -today's ABG improved 7.25/64.3/90.8/26.9 -lungs stable/worsening on CXR -levophed + vasopressin + hydrocortisone shock dose 100q8 to maintain MAP >65 -duonebs standing q4, albuterol q4 PRN -nepro held d/t residuals -propofol/fentanyl titrated to prevent bucking ventilator -CXR daily -ABG daily -Yeast on 06/21 femoral catheter BCx, started on caspofungin per ID -repeat sputum Cx 06/15 + acinetobacter -Per ID, minocycline/zithromax +/- polymyxin dosing d/w nephro -must be on fluids d/t nephrotoxic agents -IVF: 150 meq bicarb in d5w per nephro -LFTs further worsening w/ significant direct bilirubin #RAOUL/ARF -Cr and lytes worsening -repeat HD today -IVF per nephro reccs: 150 meq bicarb in d5w -monitor closely d/t nephrotoxic agents #pancytopenia -AM Hb 10.7, AM Plt 29, AM WBC 2.4, abs PMNs 2000 -2U Plts to transfuse during dialysis -repeat PM CBC -likely multifactorial d/t sepsis, ARDS -abdominal distention, firmness, purpura all worsening -INR and PTT elevated, Fibrinogen 207 -serial fibrinogen per heme, may require FFP -anti-Plt ABs neg (HIT r/o) -immunologic studies negative -AC held -monitor CBC closely, transfusion threshhold 7 for PRBC, 20 for Plt #hyperkalemia/hyperphosphatemia -K 4.2, Ph 9.4 this AM -HD today #palliative care -GOC d/w family, poor prognosis explained fully with all questions asked and answered #FEN -150 meq bicarb in d5w -CMP in AM -feeds held d/t residuals #PPx - DVT: SCDs - GI: Pepcid 20 IV BID #Dispo -ICU Visit type - Emergency Visit Emergency Visit: No - New Patient This patient is new to me today: No - Critical Care Critical Care patient: Yes Total Critical Care Time (in minutes): 40 Critical Care Statement: The care of this patient involved high complexity decision making to prevent further life threatening deterioration of the patient 's condition and/or to evaluate & treat vital organ system(s) failure or risk of failure.
[2018-06-23] MEDS ORDERED: CASPOFUNGIN ACETATE 70 MG in SODIUM CHLORIDE 250 ML IVPB ONE (09:45)
[2018-06-23] MEDS: FOLIC ACID 1 MG TABLET (FP) PO SCH (09:46)
[2018-06-23] MEDS: FAMOTIDINE 20 MG/50 ML IVPB 20 MG/50 ML MG IVPB SCH ×2 (09:46→21:59)
[2018-06-23] MEDS: FERROUS SO4 300 MG/5 ML ORAL SOLN UNIT DOSE CUPS GT SCH (09:46)
[2018-06-23] MEDS: AZITHROMYCIN IVPB 500 MG/250 ML BAG IVPB SCH (09:47)
[2018-06-23] MEDS: BACITRACIN 15 GM TUBE TOPICAL OINTMENT TP SCH (10:50)
[2018-06-23] MEDS ORDERED: PT OWN MED DRAWER 7, Y5N ONE ×5 (10:53→22:01)
[2018-06-23] MEDS: ROFLUMILAST 500 MCG TABLET PO SCH (10:57)
[2018-06-23] MEDS: FLUDROCORTISONE ACETATE 0.1 MG TABLET (FP) GT SCH (10:58)
--- NOTE | 2018-06-23 11:18 | PN ---
Progress Note, Physician History of Present Illness: Sedated on ventilator Blood c/s YLO FiO2 45% Hypotensive on pressors Afebrile WBC remains elevated Received dose of vancomycin - Current Medication List Current Medications: Active Medications Acetaminophen (Tylenol -) 650 mg PO Q6H PRN PRN Reason: PAIN LEVEL 6-10 Last Admin: 06/13/18 01:30 Dose: 650 mg Albuterol Sulfate (Ventolin 0.083% Nebulizer Soln -) 1 amp NEB Q2H PRN PRN Reason: SHORT OF BREATH/WHEEZING Last Admin: 06/22/18 03:45 Dose: 1 amp Albuterol/Ipratropium (Duoneb -) 1 amp NEB Q4HPO [facility] Last Admin: 06/23/18 10:23 Dose: 1 amp Bacitracin (Bacitracin -) 1 applic TP DAILY [facility] Last Admin: 06/23/18 10:50 Dose: 1 applic Calcium Acetate (Phoslo -) 1,334 mg PO TIDCM [facility] Last Admin: 06/23/18 08:47 Dose: 1,334 mg Chlorhexidine Gluconate (Hibiclens For Decolonization -) 1 applic TP HS [facility] Last Admin: 06/22/18 23:35 Dose: 1 applic Ergocalciferol (Drisdol -) 50,000 unit PO Q7D@1000 [facility] Last Admin: 06/15/18 10:59 Dose: Not Given Ferrous Sulfate (Feosol) 300 mg GT DAILY [facility] Last Admin: 06/23/18 09:46 Dose: 300 mg Fludrocortisone Acetate (Florinef -) 0.05 mg GT DAILY [facility] Last Admin: 06/23/18 10:58 Dose: 0.05 mg Folic Acid (Folic Acid -) 1 mg PO DAILY [facility] Last Admin: 06/23/18 09:46 Dose: 1 mg Hydrocortisone Sodium Succinate (Solu-Cortef -) 100 mg IVPUSH Q8H-IV [facility] Last Admin: 06/23/18 09:46 Dose: 100 mg Minocycline HCl 100 mg/ (Dextrose) 100 mls @ 100 mls/hr IVPB Q12H [facility] Last Admin: 06/23/18 02:06 Dose: 100 mls/hr Vasopressin 50 units/ Sodium (Chloride) 100 mls @ 4 mls/hr IVPB ASDIR [facility]; Protocol Last Admin: 06/22/18 18:37 Dose: Not Given Famotidine/Sodium Chloride (Pepcid 20 Mg Premixed Ivpb -) 20 mg in 50 mls @ 100 mls/hr IVPB BID [facility] Last Admin: 06/23/18 09:46 Dose: 100 mls/hr Fentanyl 500 mcg/ Dextrose 100 mls @ 15 mls/hr IVPB TITR [facility]; Protocol Last Admin: 06/23/18 06:55 Dose: 75 mcg/hr, 15 mls/hr Azithromycin (Zithromax 500mg Ivpb (Pre-Docked)) 500 mg in 250 mls @ 250 mls/ hr IVPB DAILY [facility] Last Admin: 06/23/18 09:47 Dose: 250 mls/hr Sodium Bicarbonate 150 meq/ (Dextrose) 1,150 mls @ 75 mls/hr IV Q14H [facility] Last Admin: 06/23/18 02:07 Dose: Not Given Norepinephrine Bitartrate 8, (000 mcg/ Sodium Chloride) 508 mls @ 83.82 mls/hr IV ASDIR [facility]; Protocol Last Admin: 06/22/18 15:45 Dose: 22 mcg/min, 83.82 mls/hr Propofol (Diprivan -) 1,000,000 mcg in 100 mls @ 5.334 mls/hr IVPB TITR [facility]; Protocol Last Admin: 06/22/18 20:12 Dose: 25 mcg/kg/min, 13.336 mls/hr Sodium Chloride (Normal Saline -) 250 mls @ 3,000 mls/hr IV PRN PRN PRN Reason: Hypotension during Dialysis Stop: 06/24/18 07:26 Montelukast Sodium (Singulair -) 10 mg PO HS [facility] Last Admin: 06/22/18 23:35 Dose: 10 mg Polyethylene Glycol (Miralax (For Daily Use) -) 17 gm PO DAILY PRN PRN Reason: CONSTIPATION Roflumilast (Daliresp -) 500 mcg PO DAILY [facility] Last Admin: 06/23/18 10:57 Dose: 500 mcg Scopolamine HBr (Transderm-Scop -) 1 patch TD Q72H [facility] Last Admin: 06/21/18 10:07 Dose: 1 patch - Objective Vital Signs: Vital Signs Temperature 98.1 F 06/23/18 10:00 Pulse Rate 100 H 06/23/18 10:00 Respiratory Rate 28 H 06/23/18 10:27 Blood Pressure 113/51 L 06/23/18 10:00 O2 Sat by Pulse Oximetry (%) 100 06/22/18 20:46 Constitutional: Yes: No Distress Eyes: Yes: Conjunctiva Clear Cardiovascular: Yes: Regular Rate and Rhythm, S1, S2 Respiratory: Yes: Mechanically Ventilated Gastrointestinal: Yes: Normal Bowel Sounds, Soft. No: Tenderness Edema: Yes Labs: CBC, BMP 06/23/18 05:30 06/23/18 05:30 INR, PTT INR 1.10 (0.83-1.09) H 06/23/18 05:30 Fibrinogen 207.0 mg/dL (238-498) L 06/23/18 05:30 Assessment/Plan Fungemia ? catheter source Sepsis/ Septic shock Respiratory failure HCAP/MDR Pancytopenia /Thrombocytopenia Continue zithromax/ minocycline/ polymyxin Cancidas Change lines Continue ventilatory/ hemodynamic support Prognosis guarded
[2018-06-23] MEDS ORDERED: DESMOPRESSIN ACETATE 4 MCG/ML AMP IVPB ONE (11:53)
--- NOTE | 2018-06-23 12:14 | PN ---
Teaching Attending Note Name of Resident: Long Petersen ATTENDING PHYSICIAN STATEMENT I saw and evaluated the patient. I reviewed the resident's note and discussed the case with the resident. I agree with the resident's findings and plan as documented. SUBJECTIVE: Pt seen and examined in the ICU. Remains intubated, sedated. On increased pressor requirements. Yeast growing in blood. OBJECTIVE: Vital Signs Period Temp Pulse Resp BP Sys/Echevarria Pulse Ox Last 24 Hr 97.5 F-98.1 F 79-107 18-29 108-133/43-73 100-100 Intake & Output 06/20/18 06/21/18 06/22/18 06/23/18 23:59 23:59 23:59 23:59 Intake Total 4530 6185 4625 1165 Output Total 725 375 600 500 Balance 3805 5810 4025 665 Weight 80.031 kg 82.667 kg 88.904 kg 92.487 kg Gen: intubated, sedated Heart: tachycardic, regular Lung: bilateral rhonchi Abd: softly distended, nontender, +hematoma Ext: + edema CBC, BMP 06/23/18 05:30 06/23/18 05:30 Active Medications Acetaminophen (Tylenol -) 650 mg PO Q6H PRN PRN Reason: PAIN LEVEL 6-10 Last Admin: 06/13/18 01:30 Dose: 650 mg Albuterol Sulfate (Ventolin 0.083% Nebulizer Soln -) 1 amp NEB Q2H PRN PRN Reason: SHORT OF BREATH/WHEEZING Last Admin: 06/22/18 03:45 Dose: 1 amp Albuterol/Ipratropium (Duoneb -) 1 amp NEB Q4HPO [facility] Last Admin: 06/23/18 10:23 Dose: 1 amp Bacitracin (Bacitracin -) 1 applic TP DAILY [facility] Last Admin: 06/23/18 10:50 Dose: 1 applic Calcium Acetate (Phoslo -) 1,334 mg PO TIDCM [facility] Last Admin: 06/23/18 11:28 Dose: 1,334 mg Chlorhexidine Gluconate (Hibiclens For Decolonization -) 1 applic TP HS [facility] Last Admin: 06/22/18 23:35 Dose: 1 applic Desmopressin Acetate (Ddavp Injection -) 25 mcg IVPB ONCE ONE Stop: 06/23/18 11:54 Ergocalciferol (Drisdol -) 50,000 unit PO Q7D@1000 [facility] Last Admin: 06/15/18 10:59 Dose: Not Given Ferrous Sulfate (Feosol) 300 mg GT DAILY [facility] Last Admin: 06/23/18 09:46 Dose: 300 mg Fludrocortisone Acetate (Florinef -) 0.05 mg GT DAILY [facility] Last Admin: 06/23/18 10:58 Dose: 0.05 mg Folic Acid (Folic Acid -) 1 mg PO DAILY [facility] Last Admin: 06/23/18 09:46 Dose: 1 mg Hydrocortisone Sodium Succinate (Solu-Cortef -) 100 mg IVPUSH Q8H-IV [facility] Last Admin: 06/23/18 09:46 Dose: 100 mg Minocycline HCl 100 mg/ (Dextrose) 100 mls @ 100 mls/hr IVPB Q12H [facility] Last Admin: 06/23/18 02:06 Dose: 100 mls/hr Vasopressin 50 units/ Sodium (Chloride) 100 mls @ 4 mls/hr IVPB ASDIR [facility]; Protocol Last Admin: 06/22/18 18:37 Dose: Not Given Famotidine/Sodium Chloride (Pepcid 20 Mg Premixed Ivpb -) 20 mg in 50 mls @ 100 mls/hr IVPB BID [facility] Last Admin: 06/23/18 09:46 Dose: 100 mls/hr Fentanyl 500 mcg/ Dextrose 100 mls @ 15 mls/hr IVPB TITR [facility]; Protocol Last Admin: 06/23/18 06:55 Dose: 75 mcg/hr, 15 mls/hr Azithromycin (Zithromax 500mg Ivpb (Pre-Docked)) 500 mg in 250 mls @ 250 mls/ hr IVPB DAILY [facility] Last Admin: 06/23/18 09:47 Dose: 250 mls/hr Sodium Bicarbonate 150 meq/ (Dextrose) 1,150 mls @ 75 mls/hr IV Q14H [facility] Last Admin: 06/23/18 02:07 Dose: Not Given Norepinephrine Bitartrate 8, (000 mcg/ Sodium Chloride) 508 mls @ 83.82 mls/hr IV ASDIR [facility]; Protocol Last Admin: 06/22/18 15:45 Dose: 22 mcg/min, 83.82 mls/hr Propofol (Diprivan -) 1,000,000 mcg in 100 mls @ 5.334 mls/hr IVPB TITR [facility]; Protocol Last Admin: 06/22/18 20:12 Dose: 25 mcg/kg/min, 13.336 mls/hr Sodium Chloride (Normal Saline -) 250 mls @ 3,000 mls/hr IV PRN PRN PRN Reason: Hypotension during Dialysis Stop: 06/24/18 07:26 Caspofungin 50 mg/ Sodium (Chloride) 250 mls @ 250 mls/hr IVPB Q24H [facility] Caspofungin 50 mg/ Sodium (Chloride) 250 mls @ 250 mls/hr IVPB Q24H [facility] Montelukast Sodium (Singulair -) 10 mg PO HS [facility] Last Admin: 06/22/18 23:35 Dose: 10 mg Polyethylene Glycol (Miralax (For Daily Use) -) 17 gm PO DAILY PRN PRN Reason: CONSTIPATION Roflumilast (Daliresp -) 500 mcg PO DAILY [facility] Last Admin: 06/23/18 10:57 Dose: 500 mcg Scopolamine HBr (Transderm-Scop -) 1 patch TD Q72H [facility] Last Admin: 06/21/18 10:07 Dose: 1 patch ASSESSMENT AND PLAN: Acute on Chronic Hypoxic and Hypercapneic Respiratory Failure Pneumonia Fungemia Septic Shock Acute Kidney Injury Acute COPD/Bronchiectasis Exacerbation ARDS HTN - continue antibiotics, antifungals per ID - f/u cultures - will need to change lines - transfuse platelets - IVF to keep CVP 8-12 - titrate pressors to maintain MAP >65 - monitor urine output, creatinine - HD per renal - inhaled bronchodilators standing and PRN - continue stress dose steroids - monitor Ppeak, Pplat - low tidal volume ventilation 6cc/kg/IBW - keep Pplat <30 - taper Fio2 to keep Spo2 >90% - monitor ABG - enteral feeds as tolerated - DVT/GI prophylaxis - continue ICU monitoring - poor overall prognosis given multidrug resistant organisms, discussed with and son at bedside, to set up family meeting critical care time spent in reviewing chart, evaluating patient and formulating plan 35 min
[2018-06-23] MEDS: PROPOFOL 1,000,000 MCG/100 ML VIAL IVPB SCH ×3 (12:30→22:00)
[2018-06-23] MEDS: ALBUMIN HUMAN 25% 12.5 GM/50 ML VIAL IVPB SCH ×2 (13:37→13:38)
[2018-06-23] MEDS: NOREPINEPHRINE BITARTRATE IV SCH (14:30)
[2018-06-23] MEDS: SODIUM CHLORIDE 0.45% IV SCH (14:30)
[2018-06-23] MEDS ORDERED: DESMOPRESSIN ACETATE IVPB ONE (15:30)
[2018-06-23] MEDS ORDERED: SODIUM CHLORIDE IVPB ONE (15:30)
[2018-06-23] MEDS: VASOPRESSIN 50 UNITS in SODIUM CHLORIDE 97.5 ML IVPB SCH ×2 (15:55→18:19)
--- NOTE | 2018-06-23 16:55 | PN ---
Progress Note, Physician History of Present Illness: Pt seen and examined at bedside. She remains in the ICU. She remains intubated. - Current Medication List Current Medications: Active Medications Acetaminophen (Tylenol -) 650 mg PO Q6H PRN PRN Reason: PAIN LEVEL 6-10 Last Admin: 06/13/18 01:30 Dose: 650 mg Albuterol Sulfate (Ventolin 0.083% Nebulizer Soln -) 1 amp NEB Q2H PRN PRN Reason: SHORT OF BREATH/WHEEZING Last Admin: 06/22/18 03:45 Dose: 1 amp Albuterol/Ipratropium (Duoneb -) 1 amp NEB Q4HPO [facility] Last Admin: 06/23/18 14:15 Dose: 1 amp Bacitracin (Bacitracin -) 1 applic TP DAILY [facility] Last Admin: 06/23/18 10:50 Dose: 1 applic Calcium Acetate (Phoslo -) 1,334 mg PO TIDCM [facility] Last Admin: 06/23/18 11:28 Dose: 1,334 mg Chlorhexidine Gluconate (Hibiclens For Decolonization -) 1 applic TP HS [facility] Last Admin: 06/22/18 23:35 Dose: 1 applic Ergocalciferol (Drisdol -) 50,000 unit PO Q7D@1000 [facility] Last Admin: 06/15/18 10:59 Dose: Not Given Ferrous Sulfate (Feosol) 300 mg GT DAILY [facility] Last Admin: 06/23/18 09:46 Dose: 300 mg Fludrocortisone Acetate (Florinef -) 0.05 mg GT DAILY [facility] Last Admin: 06/23/18 10:58 Dose: 0.05 mg Folic Acid (Folic Acid -) 1 mg PO DAILY [facility] Last Admin: 06/23/18 09:46 Dose: 1 mg Hydrocortisone Sodium Succinate (Solu-Cortef -) 100 mg IVPUSH Q8H-IV [facility] Last Admin: 06/23/18 09:46 Dose: 100 mg Minocycline HCl 100 mg/ (Dextrose) 100 mls @ 100 mls/hr IVPB Q12H [facility] Last Admin: 06/23/18 14:40 Dose: 100 mls/hr Vasopressin 50 units/ Sodium (Chloride) 100 mls @ 4 mls/hr IVPB ASDIR [facility]; Protocol Last Admin: 06/23/18 15:55 Dose: 1 units/hr, 2 mls/hr Famotidine/Sodium Chloride (Pepcid 20 Mg Premixed Ivpb -) 20 mg in 50 mls @ 100 mls/hr IVPB BID [facility] Last Admin: 06/23/18 09:46 Dose: 100 mls/hr Fentanyl 500 mcg/ Dextrose 100 mls @ 15 mls/hr IVPB TITR [facility]; Protocol Last Admin: 06/23/18 14:36 Dose: 75 mcg/hr, 15 mls/hr Azithromycin (Zithromax 500mg Ivpb (Pre-Docked)) 500 mg in 250 mls @ 250 mls/ hr IVPB DAILY [facility] Last Admin: 06/23/18 09:47 Dose: 250 mls/hr Sodium Bicarbonate 150 meq/ (Dextrose) 1,150 mls @ 75 mls/hr IV Q14H [facility] Last Admin: 06/23/18 02:07 Dose: Not Given Norepinephrine Bitartrate 8, (000 mcg/ Sodium Chloride) 508 mls @ 83.82 mls/hr IV ASDIR [facility]; Protocol Last Admin: 06/23/18 14:30 Dose: 22 mcg/min, 83.82 mls/hr Propofol (Diprivan -) 1,000,000 mcg in 100 mls @ 5.334 mls/hr IVPB TITR [facility]; Protocol Last Admin: 06/23/18 12:30 Dose: 25 mcg/kg/min, 13.336 mls/hr Sodium Chloride (Normal Saline -) 250 mls @ 3,000 mls/hr IV PRN PRN PRN Reason: Hypotension during Dialysis Stop: 06/24/18 07:26 Caspofungin 50 mg/ Sodium (Chloride) 250 mls @ 250 mls/hr IVPB Q24H [facility] Montelukast Sodium (Singulair -) 10 mg PO HS [facility] Last Admin: 06/22/18 23:35 Dose: 10 mg Polyethylene Glycol (Miralax (For Daily Use) -) 17 gm PO DAILY PRN PRN Reason: CONSTIPATION Roflumilast (Daliresp -) 500 mcg PO DAILY [facility] Last Admin: 06/23/18 10:57 Dose: 500 mcg Scopolamine HBr (Transderm-Scop -) 1 patch TD Q72H [facility] Last Admin: 06/21/18 10:07 Dose: 1 patch - Objective Vital Signs: Vital Signs Temperature 98.3 F 06/23/18 14:00 Pulse Rate 115 H 06/23/18 15:55 Respiratory Rate 28 H 06/23/18 15:45 Blood Pressure 110/64 06/23/18 15:55 O2 Sat by Pulse Oximetry (%) 98 06/23/18 09:00 Constitutional: Yes: Calm Eyes: Yes: Conjunctiva Clear Cardiovascular: Yes: S1, S2 Respiratory: Yes: Mechanically Ventilated Gastrointestinal: Yes: Distention Genitourinary: Yes: Ramírez Present Musculoskeletal: Yes: Muscle Weakness Edema: Yes Edema: LUE: 1+, RUE: 1+, LLE: 1+, RLE: 1+ Neurological: Yes: Lethargy Labs: CBC, BMP 06/23/18 05:30 06/23/18 05:30 INR, PTT INR 1.10 (0.83-1.09) H 06/23/18 05:30 Fibrinogen 207.0 mg/dL (238-498) L 06/23/18 05:30 Problem List - Problems (1) RAOUL (acute kidney injury) Code(s): N17.9 - ACUTE KIDNEY FAILURE, UNSPECIFIED (2) CKD (chronic kidney disease) Code(s): N18.9 - CHRONIC KIDNEY DISEASE, UNSPECIFIED (3) COPD exacerbation Code(s): J44.1 - CHRONIC OBSTRUCTIVE PULMONARY DISEASE W (ACUTE) EXACERBATION (4) Hospital acquired PNA Code(s): J18.9 - PNEUMONIA, UNSPECIFIED ORGANISM (5) Sepsis Code(s): A41.9 - SEPSIS, UNSPECIFIED ORGANISM (6) COPD (chronic obstructive pulmonary disease) with acute bronchitis Code(s): J44.0 - CHRONIC OBSTRUCTIVE PULMON DISEASE W ACUTE LOWER RESP INFCT Assessment/Plan Current Medications Generic Name Dose Route Start Last Admin Trade Name Freq PRN Reason Stop Dose Admin Acetaminophen 650 mg 06/12/18 17:35 06/13/18 01:30 Tylenol - PO 650 mg Q6H PRN Administration PAIN LEVEL 6-10 Albuterol Sulfate 1 amp 06/21/18 08:25 06/22/18 03:45 Ventolin 0.083% Nebulizer Soln - NEB 1 amp Q2H PRN Administration SHORT OF BREATH/WHEEZING Albuterol/Ipratropium 1 amp 06/16/18 14:00 06/23/18 14:15 Duoneb - NEB 1 amp Q4HPO [facility] Administration Bacitracin 1 applic 06/20/18 10:00 06/23/18 10:50 Bacitracin - TP 1 applic DAILY [facility] Administration Calcium Acetate 1,334 mg 06/21/18 08:21 06/23/18 11:28 Phoslo - PO 1,334 mg TIDCM [facility] Administration Chlorhexidine Gluconate 1 applic 06/12/18 22:00 06/22/18 23:35 Hibiclens For Decolonization - TP 1 applic HS [facility] Administration Ergocalciferol 50,000 unit 06/15/18 10:00 06/15/18 10:59 Drisdol - PO Not Given Q7D@1000 [facility] Ferrous Sulfate 300 mg 06/16/18 10:00 06/23/18 09:46 Feosol GT 300 mg DAILY [facility] Administration Fludrocortisone Acetate 0.05 mg 06/21/18 10:00 06/23/18 10:58 Florinef - GT 0.05 mg DAILY [facility] Administration Folic Acid 1 mg 06/13/18 10:00 06/23/18 09:46 Folic Acid - PO 1 mg DAILY [facility] Administration Hydrocortisone Sodium Succinate 100 mg 06/21/18 18:00 06/23/18 09:46 Solu-Cortef - IVPUSH 100 mg Q8H-IV [facility] Administration Minocycline HCl 100 mg/ 100 mls @ 100 mls/hr 06/17/18 15:00 06/23/18 14:40 Dextrose IVPB 100 mls/hr Q12H [facility] Administration Vasopressin 50 units/ Sodium 100 mls @ 4 mls/hr 06/18/18 17:25 06/23/18 15:55 Chloride IVPB 1 units/hr ASDIR [facility] 2 mls/hr Administration Protocol 2 UNITS/HR Famotidine/Sodium Chloride 20 mg in 50 mls @ 100 mls/hr 06/21/18 10:30 09:46 Pepcid 20 Mg Premixed Ivpb - IVPB 100 mls/hr BID [facility] Administration Fentanyl 500 mcg/ Dextrose 100 mls @ 15 mls/hr 06/22/18 11:45 06/23/18 14:36 IVPB 75 mcg/hr TITR [facility] 15 mls/hr Administration Protocol 75 MCG/HR Azithromycin 500 mg in 250 mls @ 250 mls/hr 06/22/18 11:30 06/23/18 09:47 Zithromax 500mg Ivpb (Pre-Docked) IVPB 250 mls/hr DAILY [facility] Administration Sodium Bicarbonate 150 meq/ 1,150 mls @ 75 mls/hr 06/22/18 12:00 06/23/18 02: 07 Dextrose IV Not Given Q14H [facility] Norepinephrine Bitartrate 8, 508 mls @ 83.82 mls/hr 06/22/18 15:28 06/23/18 14:30 000 mcg/ Sodium Chloride IV 22 mcg/min ASDIR [facility] 83.82 mls/hr Administration Protocol 22 MCG/MIN Propofol 1,000,000 mcg in 100 mls @ 5.334 mls/hr 06/22/18 16:15 06/23/18 12: 30 Diprivan - IVPB 25 mcg/kg/min TITR [facility] 13.336 mls/hr Administration Protocol 10 MCG/KG/MIN Sodium Chloride 250 mls @ 3,000 mls/hr 06/23/18 07:25 Normal Saline - IV 06/24/18 07:26 PRN PRN Hypotension during Dialysis Caspofungin 50 mg/ Sodium 250 mls @ 250 mls/hr 06/24/18 11:30 Chloride IVPB Q24H [facility] Montelukast Sodium 10 mg 06/12/18 22:00 06/22/18 23:35 Singulair - PO 10 mg HS [facility] Administration Polyethylene Glycol 17 gm 06/12/18 17:35 Miralax (For Daily Use) - PO DAILY PRN CONSTIPATION Roflumilast 500 mcg 06/13/18 10:00 06/23/18 10:57 Daliresp - PO 500 mcg DAILY [facility] Administration Scopolamine HBr 1 patch 06/18/18 10:30 06/21/18 10:07 Transderm-Scop - TD 1 patch Q72H [facility] Administration Impression 1. RAOUL 2. CKD 3. respiratory failure requiring intubation 4. sepsis 5. multi drug resistant Acinetobacter 6. copd exacerbation 7. anemia 8. hyperkalemia 9. thrombocytopenia Plan - HD today - lines to be removed - vent support - discussed with family at length - monitor urine output - monitor creatinine - cont with pressors to maintain a map of 65 - daily cxr - RAOUL is likely multifactorial - discussed with ICU team - prognosis guarded Dr Marquez
[2018-06-23 17:05] LABS: URINE APPEARANCE CLOUDY; URINE BILIRUBIN NEGATIVE (<2.0 mg/dL); URINE COLOR YELLOW; URINE GLUCOSE (UA) NEGATIVE (NEGATIVE); URINE KETONE NEGATIVE (NEGATIVE); URINE LEUK ESTERASE 1+ (NEGATIVE); URINE NITRITE NEGATIVE (NEGATIVE); URINE PROTEIN 1+ (NEGATIVE); URINE UROBILINOGEN NEGATIVE mg/dL (0.2-1.0)
[2018-06-23 17:30] LABS: EPI CELLS RARE /HPF (FEW); URINE MUCUS RARE; YEAST MANY
--- NOTE | 2018-06-23 17:34 | PN ---
Teaching Attending Note Name of Resident: Babs Flores ATTENDING PHYSICIAN STATEMENT I saw and evaluated the patient. I reviewed the resident's note and discussed the case with the resident. I agree with the resident's findings and plan as documented. SUBJECTIVE:intubated/sedated OBJECTIVE: Last Vital Signs Temp Pulse Resp BP Pulse Ox 98.3 F 115 H 28 H 110/64 98 06/23/18 14:00 06/23/18 15:55 06/23/18 15:45 06/23/18 15:55 06/23/18 09:00 General intubated/sedated Lungs coarse breath sounds Abdomen soft NT/ND Extremities 1+ pitting edema in all extremities Neuro sluggish corneal reflex. no gag reflex, neg dolls eyes ASSESSMENT AND PLAN: 58yo F with PMH HTn, COPD on home O2 (3L NC) and anemia presented with acute COPD exacerbation. Course was complicated by development of CHIKI PNA and was transferred to MICU on 06/12 and now worsened with ARDS with shock on 2 pressors 1. Acute on chronic hypoxic and hypercapnic respiratory distress-r/o ARDS. intubated. full vent support. medrol 40mg Q8H. not a candidate for titration at this time. ICU team on board 2. Septic shock with multiorgan failure- due to MDR Acineobacter PNA and BCx now showing fungus. will start caspofungin. cont abx. lines will need to be changed. on 2 pressor support. ID on board. Contact and droplet precautions 3. RAOUL- due to septic shock. s/p HD x3 sessions. tolerated well yesterday was able to remove 0.5Kg. cont to assess need for HD daily.on bicarb ggt. Nephro on board. 4. Panocytopenia- due to septic shock and ARDS. s/p 3 units PRBC and 4 units platelets this hospital stay. plan to give platelet today. repeat CBC. no sings of bleeding. HIT panel pending. heme on board 5. Hyperkalemia- resolved after HD 6 Respiratory acidosis- stable. cont to monitor. adjust vent as needed 7. Acute toxic/metabolic encephalopathy- due to septic shock. unable to do sedation vacation at this time to fully assess mental status. cont full sedation. 8. DVT ppx- SCD. hold pharmacologic in setting of thrombocytopenia 9. poor overall prognosis. palliative care consulted 10. Full code. family meeting tomorrow to discuss goals of care The care of this patient involved high complexity decision making to prevent further life threatening deterioration of the patient's condition and/or to evaluate & treat vital organ system(s) failure or risk of failure. 38 minutes
[2018-06-23 18:53] LABS: BASO % 0.3 % (0-2.0); EOS % 0.1 % (0-4.5); HEMATOCRIT 27.5 % (32.4-45.2); HEMOGLOBIN 9.5 GM/dL (10.7-15.3); LYMPH % 9.6 % (8-40); MCH 26.7 pg (25.7-33.7); MCHC 34.6 g/dl (32.0-36.0); MEAN CELL VOLUME 77.1 fl (80-96); MEAN PLT VOLUME 8.4 fl (7.5-11.1); MONO % 0.5 % (3.8-10.2); NEUT % 89.5 % (42.8-82.8); PLATELET COUNT 92 K/MM3 (134-434); RBC 3.57 M/mm3 (3.60-5.2); RDW 20.7 % (11.6-15.6)
--- NOTE | 2018-06-23 19:39 | PN ---
Physical Exam: SUBJECTIVE: Patient seen and examined at bedside. Sedated and intubated OBJECTIVE: Vital Signs Period Temp Pulse Resp BP Sys/Echevarria Pulse Ox Last 24 Hr 97.5 F-98.3 F 79-117 18-28 107-135/48-73 98-100 GENERAL: Patient is sedated, intubated. NECK: Trachea midline, full range of motion, supple. LUNGS: + diffuse rhonchi bilaterally, decreased air entry HEART: Tachycardic, normal S1, S2 without murmur, rub or gallop. ABDOMEN: Soft, nontender, distended, normoactive bowel sounds. EXTREMITIES: 2+ pulses, warm, well-perfused, no edema. SKIN: Warm, dry, normal turgor, no rashes or lesions not Laboratory Results - last 24 hr 06/23/18 06/23/18 06/23/18 05:30 05:30 05:30 WBC 2.4 L RBC 4.01 Hgb 10.7 Hct 30.3 L MCV 75.6 L MCH 26.8 MCHC 35.4 RDW 20.9 H Plt Count 29 L* D MPV 8.8 Absolute Neuts (auto) 2.0 Neutrophils % 85.3 H Lymphocytes % 14.4 D Monocytes % 0.2 L D Eosinophils % 0.0 Basophils % 0.1 Nucleated RBC % 0 PT with INR INR PTT (Actin FS) Fibrinogen 207.0 L Puncture Site ABG pH ABG pCO2 at Pt Temp ABG pO2 at Pt Temp ABG HCO3 ABG O2 Sat (Measured) ABG O2 Content ABG Base Excess Timmy Test O2 Delivery Device Oxygen Flow Rate Vent Mode Vent Rate Mechanical Rate PEEP Pressure Support Vent Sodium Potassium Chloride Carbon Dioxide Anion Gap BUN Creatinine Creat Clearance w eGFR Random Glucose Calcium Phosphorus Magnesium Total Bilirubin AST ALT Alkaline Phosphatase Total Protein Albumin Urine Color Urine Appearance Urine pH Ur Specific [place] Urine Protein Urine Glucose (UA) Urine Ketones Urine Blood Urine Nitrite Urine Bilirubin Urine Urobilinogen Ur Leukocyte Esterase Urine WBC (Auto) Urine RBC (Auto) Ur Epithelial Cells Urine Mucus Urine Yeast Random Vancomycin 8.5 L 06/23/18 06/23/18 06/23/18 05:30 05:30 06:00 WBC RBC Hgb Hct MCV MCH MCHC RDW Plt Count MPV Absolute Neuts (auto) Neutrophils % Lymphocytes % Monocytes % Eosinophils % Basophils % Nucleated RBC % PT with INR 13.00 INR 1.10 H PTT (Actin FS) 44.0 H Fibrinogen Puncture Site Right radial ABG pH 7.25 L ABG pCO2 at Pt Temp 64.3 H* ABG pO2 at Pt Temp 90.8 ABG HCO3 26.9 H ABG O2 Sat (Measured) 96.2 ABG O2 Content 14.3 L ABG Base Excess -0.8 Timmy Test Positive O2 Delivery Device Mech vent Oxygen Flow Rate 45% Vent Mode A/c Vent Rate 28 Mechanical Rate Yes PEEP 5.0 Pressure Support Vent 300 Sodium 133 L Potassium 4.2 Chloride 92 L Carbon Dioxide 28 Anion Gap 14 BUN 98 H Creatinine 2.5 H Creat Clearance w eGFR 19.71 Random Glucose 122 H Calcium 7.1 L Phosphorus 9.4 H* Magnesium 2.0 Total Bilirubin 2.0 H AST 112 H ALT 83 H Alkaline Phosphatase 65 Total Protein 3.3 L Albumin 1.3 L Urine Color Urine Appearance Urine pH Ur Specific [place] Urine Protein Urine Glucose (UA) Urine Ketones Urine Blood Urine Nitrite Urine Bilirubin Urine Urobilinogen Ur Leukocyte Esterase Urine WBC (Auto) Urine RBC (Auto) Ur Epithelial Cells Urine Mucus Urine Yeast Random Vancomycin 06/23/18 06/23/18 16:30 18:15 WBC 2.0 L RBC 3.57 L Hgb 9.5 L Hct 27.5 L MCV 77.1 L MCH 26.7 MCHC 34.6 RDW 20.7 H Plt Count 92 L D MPV 8.4 Absolute Neuts (auto) 1.8 Neutrophils % 89.5 H Lymphocytes % 9.6 D Monocytes % 0.5 L D Eosinophils % 0.1 D Basophils % 0.3 Nucleated RBC % 0 PT with INR INR PTT (Actin FS) Fibrinogen Puncture Site ABG pH ABG pCO2 at Pt Temp ABG pO2 at Pt Temp ABG HCO3 ABG O2 Sat (Measured) ABG O2 Content ABG Base Excess Timmy Test O2 Delivery Device Oxygen Flow Rate Vent Mode Vent Rate Mechanical Rate PEEP Pressure Support Vent Sodium Potassium Chloride Carbon Dioxide Anion Gap BUN Creatinine Creat Clearance w eGFR Random Glucose Calcium Phosphorus Magnesium Total Bilirubin AST ALT Alkaline Phosphatase Total Protein Albumin Urine Color Yellow Urine Appearance Cloudy Urine pH 5.0 Ur Specific [place] 1.010 Urine Protein 1+ H Urine Glucose (UA) Negative Urine Ketones Negative Urine Blood 3+ H Urine Nitrite Negative Urine Bilirubin Negative Urine Urobilinogen Negative Ur Leukocyte Esterase 1+ H Urine WBC (Auto) 68 Urine RBC (Auto) 116 Ur Epithelial Cells Rare Urine Mucus Rare Urine Yeast Many Random Vancomycin Active Medications Generic Name Dose Route Start Last Admin Trade Name Andrea PRN Reason Stop Dose Admin Acetaminophen 650 mg 06/12/18 17:35 06/13/18 01:30 Tylenol - PO 650 mg Q6H PRN Administration PAIN LEVEL 6-10 Albuterol Sulfate 1 amp 06/21/18 08:25 06/22/18 03:45 Ventolin 0.083% Nebulizer Soln - NEB 1 amp Q2H PRN Administration SHORT OF BREATH/WHEEZING Albuterol/Ipratropium 1 amp 06/16/18 14:00 06/23/18 18:05 Duoneb - NEB 1 amp Q4HPO [facility] Administration Bacitracin 1 applic 06/20/18 10:00 06/23/18 10:50 Bacitracin - TP 1 applic DAILY [facility] Administration Calcium Acetate 1,334 mg 06/21/18 08:21 06/23/18 17:02 Phoslo - PO 1,334 mg TIDCM [facility] Administration Chlorhexidine Gluconate 1 applic 06/12/18 22:00 06/22/18 23:35 Hibiclens For Decolonization - TP 1 applic HS [facility] Administration Ergocalciferol 50,000 unit 06/15/18 10:00 06/15/18 10:59 Drisdol - PO Not Given Q7D@1000 [facility] Ferrous Sulfate 300 mg 06/16/18 10:00 06/23/18 09:46 Feosol GT 300 mg DAILY [facility] Administration Fludrocortisone Acetate 0.05 mg 06/21/18 10:00 06/23/18 10:58 Florinef - GT 0.05 mg DAILY [facility] Administration Folic Acid 1 mg 06/13/18 10:00 06/23/18 09:46 Folic Acid - PO 1 mg DAILY [facility] Administration Hydrocortisone Sodium Succinate 100 mg 06/21/18 18:00 06/23/18 17:02 Solu-Cortef - IVPUSH 100 mg Q8H-IV [facility] Administration Minocycline HCl 100 mg/ 100 mls @ 100 mls/hr 06/17/18 15:00 06/23/18 14:40 Dextrose IVPB 100 mls/hr Q12H [facility] Administration Vasopressin 50 units/ Sodium 100 mls @ 4 mls/hr 06/18/18 17:25 06/23/18 18:19 Chloride IVPB Not Given ASDIR [facility] Protocol 2 UNITS/HR Famotidine/Sodium Chloride 20 mg in 50 mls @ 100 mls/hr 06/21/18 10:30 09:46 Pepcid 20 Mg Premixed Ivpb - IVPB 100 mls/hr BID [facility] Administration Fentanyl 500 mcg/ Dextrose 100 mls @ 15 mls/hr 06/22/18 11:45 06/23/18 14:36 IVPB 75 mcg/hr TITR [facility] 15 mls/hr Administration Protocol 75 MCG/HR Azithromycin 500 mg in 250 mls @ 250 mls/hr 06/22/18 11:30 06/23/18 09:47 Zithromax 500mg Ivpb (Pre-Docked) IVPB 250 mls/hr DAILY [facility] Administration Sodium Bicarbonate 150 meq/ 1,150 mls @ 75 mls/hr 06/22/18 12:00 06/23/18 16: 00 Dextrose IV Not Given Q14H [facility] Norepinephrine Bitartrate 8, 508 mls @ 83.82 mls/hr 06/22/18 15:28 06/23/18 14:30 000 mcg/ Sodium Chloride IV 22 mcg/min ASDIR [facility] 83.82 mls/hr Administration Protocol 22 MCG/MIN Propofol 1,000,000 mcg in 100 mls @ 5.334 mls/hr 06/22/18 16:15 06/23/18 17: 00 Diprivan - IVPB 25 mcg/kg/min TITR [facility] 13.336 mls/hr Administration Protocol 10 MCG/KG/MIN Sodium Chloride 250 mls @ 3,000 mls/hr 06/23/18 07:25 Normal Saline - IV 06/24/18 07:26 PRN PRN Hypotension during Dialysis Caspofungin 50 mg/ Sodium 250 mls @ 250 mls/hr 06/24/18 11:30 Chloride IVPB Q24H [facility] Montelukast Sodium 10 mg 06/12/18 22:00 06/22/18 23:35 Singulair - PO 10 mg HS [facility] Administration Polyethylene Glycol 17 gm 06/12/18 17:35 Miralax (For Daily Use) - PO DAILY PRN CONSTIPATION Roflumilast 500 mcg 06/13/18 10:00 06/23/18 10:57 Daliresp - PO 500 mcg DAILY [facility] Administration Scopolamine HBr 1 patch 06/18/18 10:30 06/21/18 10:07 Transderm-Scop - TD 1 patch Q72H [facility] Administration Imaging: Chest X-Ray (05/27/18): No significant interval change. Persistent bilateral increased interstitial markings. Differential diagnosis again includes chronic interstitial lung disease. Cannot rule out noncardiogenic mild pulmonary venous congestion or interstitial infiltrates. Chest X-ray (05/30/18): No acute pathology or significant change. Chest CT scan without contrast (05/31/18): Moderately severe COPD with extensive bilateral bronchiectasis. These findings are unchanged since a previous study of 02/07/18. There is no evidence of acute pathology within the chest. CXR (06/06/18) 2 views of the some minimal degenerative changes with wedging. The soft tissues are intact. The chest reveal a normal-sized heart, normal knob and normal genesis. There are some coarse lung changes. There may be some linear atelectasis/density by the left heart border. Since the prior study 05/30/18, the density by the left heart border has become apparent. This most likely represents a focal area of atelectasis. CXR (06/10/18): New pulmonary consolidation medial aspect of the left upper lung zone obscuring aortic arch. No pleural effusion, or pneumothorax seen. No evidence of vascular congestive changes. CXR (06/13/18): Resolving segmental left upper lobe pneumonia. Left lower lobe pneumonia unchanged. CXR (06/14/18): No significant change in left sided infiltrates. ASSESSMENT/PLAN: Patient is a 58 year old female who presented with shortness of breath and found to be in COPD exacerbation. #Acute Respiratory Distress Syndrome - Patient intubated due to respiratory distress - levophed + vasopressin , titrate to maintain MAP>65 - Solumedrol discontinued - Hydrocortisone shock dose 100 q8 - Duonebs q4 STA, - albuterol q4 PRN - Daliresp GT - Nasogastric tube placed. - propofol/fentanyl titrated to prevent bucking ventilator - Blood Cx- positive for yeast infection. - Started on Caspofungin per ID. - CXR and ABG daily - LFTs worsening #Hospital acquired pneumonia - CXR - worsening - Sputum culture - Acinetobacter baumanii/haemol. - ID (Dr. Tao) consulted. Recommendations appreciated. - Polymyxin, minocycline, Azithromax -- renally dosed - Additional Vancomycin given after hemodialysis - Must be on continuous IV fluids due to Nephrotoxic antibiotics. #RAOUL on CKD: -Renal ultrasound done. -Nephrology (Dr. Marquez) consulted. Recommendations appreciated. -worsening renal function -Dialysis today -Maintain daily and monitor Urine output -Renal US - suggestive of CKD -FeNa 0.8%, likely pre-renal 2/2 hypotension -14 Lao catheter placed by urology #Hyperkalemia/hyperphosphatemia: -K 4.2, Ph 9.4 -Dialysis today #Pancytopenia: Hgb 10.7, WBC 2.4, Plt 29 -likely multifactorial from ARDS, sepsis -Hematology consulted. Recommendations appreciated. -PT wnl, INR and PTT elevated, Fibrinogen 207 -serial fibrinogen -may required FFP -hold lovenox -monitor CBC closely, transfusion threshhold 7 for PRBC, 20 for Plt -Anti-Plt Ab negative, immunologic studies negative #FEN - D5w + 150 meq bicarb - cmp monitoring - Nepro GT held due to residuals #Prophylaxis - Hold Lovenox for now. Patient has low platelet count. #Disposition - To ICU for closer monitoring. Visit type - Emergency Visit Emergency Visit: Yes ED Registration Date: 05/27/18 Care time: The patient presented to the Emergency Department on the above date and was hospitalized for further evaluation of their emergent condition. - New Patient This patient is new to me today: Yes Date on this admission: 06/24/18 - Critical Care Critical Care patient: Yes Total Critical Care Time (in minutes): 40 Critical Care Statement: The care of this patient involved high complexity decision making to prevent further life threatening deterioration of the patient 's condition and/or to evaluate & treat vital organ system(s) failure or risk of failure.
[2018-06-23 19:57] LABS: HEMATOCRIT 26.8 % (32.4-45.2); HEMOGLOBIN 9.3 GM/dL (10.7-15.3); MCH 26.7 pg (25.7-33.7); MCHC 34.8 g/dl (32.0-36.0); MEAN CELL VOLUME 76.5 fl (80-96); MEAN PLT VOLUME 8.6 fl (7.5-11.1); PLATELET COUNT 84 K/MM3 (134-434); RBC 3.51 M/mm3 (3.60-5.2); RDW 21.1 % (11.6-15.6)
[2018-06-23 20:14] LABS: WHITE BLOOD COUNT 1.8 K/mm3 (4.0-10.0)
[2018-06-23] MEDS ORDERED: PROPOFOL 1,000,000 MCG/100 ML VIAL ONE (21:48)
[2018-06-23] MEDS: CHLORHEXIDINE GLUCONATE 4% CLEANSER FOR DECOLONIZATION TP SCH (21:59)
[2018-06-23] MEDS: MONTELUKAST NA 10 MG TABLET PO SCH (21:59)
[2018-06-24] MEDS: HYDROCORTISONE SOD SUCCINATE 100 MG/2 ML VIAL IVPUSH SCH ×3 (01:28→17:25)
[2018-06-24] MEDS: WATER IVPB SCH ×2 (02:00→14:42)
[2018-06-24] MEDS: DEXTROSE 5% IVPB SCH ×2 (02:00→14:42)
[2018-06-24] MEDS: MINOCYCLINE HCL IVPB SCH ×2 (02:00→14:42)
[2018-06-24] MEDS: ALBUTEROL SO4 2.5/IPRATROPIUM 0.5 INH SOL 3 ML VIAL.NEB. NEB SCH ×6 (02:52→22:00)
[2018-06-24] MEDS ORDERED: fentaNYL CITRATE 250 MCG/5 ML VIAL ONE ×3 (05:35→21:19)
[2018-06-24] MEDS ORDERED: VASOPRESSIN 20 UNITS/ML VIAL IV ONE ×2 (05:36→20:26)
[2018-06-24 06:05] LABS: HEMATOCRIT 24.6 % (32.4-45.2); HEMOGLOBIN 8.9 GM/dL (10.7-15.3); MCH 27.3 pg (25.7-33.7); MCHC 36.3 g/dl (32.0-36.0); MEAN CELL VOLUME 75.1 fl (80-96); MEAN PLT VOLUME 9.4 fl (7.5-11.1); PLATELET COUNT 50 K/MM3 (134-434); RBC 3.27 M/mm3 (3.60-5.2); RDW 21.1 % (11.6-15.6); WHITE BLOOD COUNT 2.1 K/mm3 (4.0-10.0)
[2018-06-24 06:07] LABS: INR 1.14 (0.83-1.09); PROTHROMBIN TIME (PATIENT) 13.5 SEC (9.7-13.0)
[2018-06-24 06:10] LABS: ACTIVATED PTT 42.1 SECONDS (25.2-36.5)
[2018-06-24 06:28] LABS: ALBUMIN 1.2 g/dl (3.4-5.0); ALK PHOS 63 U/L (45-117); ANION GAP 10 MMOL/L (8-16); BILIRUBIN,TOTAL 2.6 mg/dL (0.2-1); BLOOD UREA NITROGEN 82 mg/dL (7-18); CALCIUM 7.2 mg/dL (8.5-10.1); CHLORIDE 92 mmol/L (98-107); CO2 31 mmol/L (21-32); CREATININE 2.1 mg/dL (0.55-1.3); GLUCOSE,RANDOM 94 mg/dL (74-106); MAGNESIUM 1.9 mg/dL (1.8-2.4); PHOSPHOROUS 7.4 mg/dL (2.5-4.9); POTASSIUM 3.5 mmol/L (3.5-5.1); SGOT/AST 143 U/L (15-37); SGPT/ALT 102 U/L (13-61); SODIUM 133 mmol/L (136-145); TOT PROT 3.1 g/dl (6.4-8.2)
[2018-06-24] MEDS: DEXTROSE 5%-WATER - 1,000 ML with SODIUM BICARBONATE 8.4% - 150 MEQ IV SCH (06:49)
[2018-06-24 08:29] LABS: BILIRUBIN,DIRECT 2.2 mg/dL (0.0-0.2)
--- NOTE | 2018-06-24 08:53 | PN ---
Physical Exam: SUBJECTIVE: Patient seen and examined at bedside, intubated and sedated. Pressors uptitrated overnight. OBJECTIVE: Vital Signs Period Temp Pulse Resp BP Sys/Echevarria Pulse Ox Last 24 Hr 97.8 F-98.3 F 72-117 20-28 98-140/46-66 98-100 GENERAL: Intubated and sedated on propofol/fentanyl LUNGS: Decreased breath sounds and crackles b/l, mechanically ventilated HEART: S1S2 no m/r/g ABDOMEN: increasing firmness, worsening distention, purpura expanding EXTREMITIES: warm, non-pitting edema x 4 extremities NEUROLOGICAL: unable to assess SKIN: Warm, dry, fluid-filled bullae on L medial thigh Laboratory Results - last 24 hr 06/23/18 06/23/18 06/23/18 16:30 18:15 19:20 WBC 2.0 L 1.8 L* RBC 3.57 L 3.51 L Hgb 9.5 L 9.3 L Hct 27.5 L 26.8 L MCV 77.1 L 76.5 L MCH 26.7 26.7 MCHC 34.6 34.8 RDW 20.7 H 21.1 H Plt Count 92 L D 84 L MPV 8.4 8.6 Absolute Neuts (auto) 1.8 Neutrophils % 89.5 H Lymphocytes % 9.6 D Monocytes % 0.5 L D Eosinophils % 0.1 D Basophils % 0.3 Nucleated RBC % 0 PT with INR INR PTT (Actin FS) Fibrinogen Sodium Potassium Chloride Carbon Dioxide Anion Gap BUN Creatinine Creat Clearance w eGFR Random Glucose Calcium Phosphorus Magnesium Total Bilirubin Direct Bilirubin AST ALT Alkaline Phosphatase Total Protein Albumin Urine Color Yellow Urine Appearance Cloudy Urine pH 5.0 Ur Specific [place] 1.010 Urine Protein 1+ H Urine Glucose (UA) Negative Urine Ketones Negative Urine Blood 3+ H Urine Nitrite Negative Urine Bilirubin Negative Urine Urobilinogen Negative Ur Leukocyte Esterase 1+ H Urine WBC (Auto) 68 Urine RBC (Auto) 116 Ur Epithelial Cells Rare Urine Mucus Rare Urine Yeast Many 06/24/18 06/24/18 06/24/18 05:30 05:30 05:30 WBC 2.1 L RBC 3.27 L Hgb 8.9 L Hct 24.6 L MCV 75.1 L MCH 27.3 MCHC 36.3 H RDW 21.1 H Plt Count 50 L D MPV 9.4 Absolute Neuts (auto) 1.9 Neutrophils % No Result Required. Lymphocytes % No Result Required. Monocytes % Eosinophils % Basophils % Nucleated RBC % 0 PT with INR 13.50 H INR 1.14 H PTT (Actin FS) 42.1 H Fibrinogen 193.0 L Sodium Potassium Chloride Carbon Dioxide Anion Gap BUN Creatinine Creat Clearance w eGFR Random Glucose Calcium Phosphorus Magnesium Total Bilirubin Direct Bilirubin AST ALT Alkaline Phosphatase Total Protein Albumin Urine Color Urine Appearance Urine pH Ur Specific [place] Urine Protein Urine Glucose (UA) Urine Ketones Urine Blood Urine Nitrite Urine Bilirubin Urine Urobilinogen Ur Leukocyte Esterase Urine WBC (Auto) Urine RBC (Auto) Ur Epithelial Cells Urine Mucus Urine Yeast 06/24/18 05:30 WBC RBC Hgb Hct MCV MCH MCHC RDW Plt Count MPV Absolute Neuts (auto) Neutrophils % Lymphocytes % Monocytes % Eosinophils % Basophils % Nucleated RBC % PT with INR INR PTT (Actin FS) Fibrinogen Sodium 133 L Potassium 3.5 Chloride 92 L Carbon Dioxide 31 Anion Gap 10 BUN 82 H Creatinine 2.1 H Creat Clearance w eGFR 24.11 Random Glucose 94 Calcium 7.2 L Phosphorus 7.4 H Magnesium 1.9 Total Bilirubin 2.6 H Direct Bilirubin 2.2 H AST 143 H ALT 102 H Alkaline Phosphatase 63 Total Protein 3.1 L Albumin 1.2 L Urine Color Urine Appearance Urine pH Ur Specific [place] Urine Protein Urine Glucose (UA) Urine Ketones Urine Blood Urine Nitrite Urine Bilirubin Urine Urobilinogen Ur Leukocyte Esterase Urine WBC (Auto) Urine RBC (Auto) Ur Epithelial Cells Urine Mucus Urine Yeast Active Medications Generic Name Dose Route Start Last Admin Trade Name Freq PRN Reason Stop Dose Admin Acetaminophen 650 mg 06/12/18 17:35 06/13/18 01:30 Tylenol - PO 650 mg Q6H PRN Administration PAIN LEVEL 6-10 Albuterol Sulfate 1 amp 06/21/18 08:25 06/22/18 03:45 Ventolin 0.083% Nebulizer Soln - NEB 1 amp Q2H PRN Administration SHORT OF BREATH/WHEEZING Albuterol/Ipratropium 1 amp 06/16/18 14:00 06/24/18 05:11 Duoneb - NEB 1 amp Q4HPO [facility] Administration Bacitracin 1 applic 06/20/18 10:00 06/23/18 10:50 Bacitracin - TP 1 applic DAILY [facility] Administration Calcium Acetate 1,334 mg 06/21/18 08:21 06/23/18 17:02 Phoslo - PO 1,334 mg TIDCM [facility] Administration Chlorhexidine Gluconate 1 applic 06/12/18 22:00 06/23/18 21:59 Hibiclens For Decolonization - TP 1 applic HS [facility] Administration Ergocalciferol 50,000 unit 06/15/18 10:00 06/15/18 10:59 Drisdol - PO Not Given Q7D@1000 [facility] Ferrous Sulfate 300 mg 06/16/18 10:00 06/23/18 09:46 Feosol GT 300 mg DAILY [facility] Administration Fludrocortisone Acetate 0.05 mg 06/21/18 10:00 06/23/18 10:58 Florinef - GT 0.05 mg DAILY [facility] Administration Folic Acid 1 mg 06/13/18 10:00 06/23/18 09:46 Folic Acid - PO 1 mg DAILY [facility] Administration Hydrocortisone Sodium Succinate 100 mg 06/21/18 18:00 06/24/18 01:28 Solu-Cortef - IVPUSH 100 mg Q8H-IV [facility] Administration Minocycline HCl 100 mg/ 100 mls @ 100 mls/hr 06/17/18 15:00 06/24/18 02:00 Dextrose IVPB 100 mls/hr Q12H [facility] Administration Vasopressin 50 units/ Sodium 100 mls @ 4 mls/hr 06/18/18 17:25 06/23/18 18:19 Chloride IVPB Not Given ASDIR [facility] Protocol 2 UNITS/HR Famotidine/Sodium Chloride 20 mg in 50 mls @ 100 mls/hr 06/21/18 10:30 21:59 Pepcid 20 Mg Premixed Ivpb - IVPB 100 mls/hr BID [facility] Administration Fentanyl 500 mcg/ Dextrose 100 mls @ 15 mls/hr 06/22/18 11:45 06/23/18 22:00 IVPB 75 mcg/hr TITR [facility] 15 mls/hr Administration Protocol 75 MCG/HR Azithromycin 500 mg in 250 mls @ 250 mls/hr 06/22/18 11:30 06/23/18 09:47 Zithromax 500mg Ivpb (Pre-Docked) IVPB 250 mls/hr DAILY [facility] Administration Sodium Bicarbonate 150 meq/ 1,150 mls @ 75 mls/hr 06/22/18 12:00 10/05/18 06: 49 Dextrose IV 75 mls/hr Q14H [facility] Administration Norepinephrine Bitartrate 8, 508 mls @ 83.82 mls/hr 06/22/18 15:28 06/24/18 06:51 000 mcg/ Sodium Chloride IV 15 mcg/min ASDIR [facility] 57.15 mls/hr Titration Protocol 22 MCG/MIN Propofol 1,000,000 mcg in 100 mls @ 5.334 mls/hr 06/22/18 16:15 06/23/18 22: 00 Diprivan - IVPB 25 mcg/kg/min TITR [facility] 13.336 mls/hr Administration Protocol 10 MCG/KG/MIN Caspofungin 50 mg/ Sodium 250 mls @ 250 mls/hr 06/24/18 11:30 Chloride IVPB Q24H [facility] Montelukast Sodium 10 mg 06/12/18 22:00 06/23/18 21:59 Singulair - PO Not Given HS [facility] Polyethylene Glycol 17 gm 06/12/18 17:35 Miralax (For Daily Use) - PO DAILY PRN CONSTIPATION Roflumilast 500 mcg 06/13/18 10:00 06/23/18 10:57 Daliresp - PO 500 mcg DAILY [facility] Administration Scopolamine HBr 1 patch 06/18/18 10:30 06/21/18 10:07 Transderm-Scop - TD 1 patch Q72H [facility] Administration ASSESSMENT/PLAN: 58 y/o F w/PMHx COPD (on home O2 3L), chronic anemia, HTN initially admitted to [facility] for COPD exacerbation, hospital course complicated by HAP, progressed to ARDS, now intubated in ICU #ARDS and septic shock 2/2 HAP -ventilated: vent settings to maintain >90 O2 sat -today's ABG improved 7.25/64.3/90.8/26.9 -lungs stable/worsening on CXR -levophed + vasopressin + hydrocortisone shock dose 100q8 to maintain MAP >65 -duonebs standing q4, albuterol q4 PRN -nepro held d/t residuals -propofol/fentanyl titrated to prevent bucking ventilator -CXR daily -ABG daily -Yeast on 06/21 femoral catheter BCx, started on caspofungin per ID -new UA: 1+ prot, 3+ blood, 1+ LE, 68 WBC, 116 RBC -new UCx, BCx, sputum Cx pending -repeat sputum Cx 06/15 + acinetobacter -Per ID, minocycline/zithromax +/- polymyxin dosing d/w nephro -must be on fluids d/t nephrotoxic agents -IVF: 150 meq bicarb in d5w per nephro -LFTs further worsening w/ significant direct bilirubin #RAOUL/ARF -metabolic profile improved after HD yesterday -dialysis as needed per nephro -IVF per nephro reccs: 150 meq bicarb in d5w -monitor closely d/t nephrotoxic agents #pancytopenia -AM Hb 8.9, AM Plt 92-->50 s/p 2 units, AM WBC 2.1, abs PMNs 1900 -repeat PM CBC -likely multifactorial d/t sepsis, ARDS -abdominal distention, firmness, purpura all worsening -INR and PTT elevated, Fibrinogen 207-->193 -serial fibrinogen per heme, may require FFP -anti-Plt ABs neg (HIT r/o) -immunologic studies negative -AC held -monitor CBC closely, transfusion threshhold 7 for PRBC, 20 for Plt #hyperkalemia/hyperphosphatemia -K 3.5 Phos 7.4 this AM, HD as necessary #palliative care -GOC discussion w/ family this AM -DNR agreed -recommended comfort care #FEN -150 meq bicarb in d5w -CMP in AM -feeds held d/t residuals #PPx - DVT: SCDs - GI: Pepcid 20 IV BID #Dispo -ICU #Code -DNR Visit type - Emergency Visit Emergency Visit: No - New Patient This patient is new to me today: No - Critical Care Critical Care patient: Yes Total Critical Care Time (in minutes): 40 Critical Care Statement: The care of this patient involved high complexity decision making to prevent further life threatening deterioration of the patient 's condition and/or to evaluate & treat vital organ system(s) failure or risk of failure.
[2018-06-24] MEDS: CALCIUM ACETATE 667 MG CAPSULE (FP) PO SCH ×3 (09:00→17:25)
--- NOTE | 2018-06-24 09:28 | PN ---
Progress Note (short form) - Note Progress Note: remains intubated remains sedated s/p HD yesterday shiley removed after HD central line changed fungemia- started on cancidas Vital Signs Period Temp Pulse Resp BP Sys/Echevarria Pulse Ox Last 24 Hr 97.8 F-98.3 F 72-117 20-28 98-140/46-66 99-100 +anasarca cor-rrrr lungs decreased bs at bases abd firm +echymoses LLQ ext +edema CBC, BMP 06/24/18 05:30 06/24/18 05:30 Microbiology 06/21/18 20:50 Blood - Shiley Catheter Blood Culture - Final Yeast Like Organism 06/21/18 20:50 Blood - Shiley Catheter Blood Culture - Final Yeast Like Organism 06/11/18 17:49 Sputum - Expectorated Gram Stain - Final 06/11/18 17:49 Sputum - Expectorated Sputum Culture - Final Acinetobacter Baumannii/Haemol 06/15/18 09:30 Blood - Peripheral Venous Blood Culture - Final NO GROWTH AFTER 5 DAYS INCUBATION 06/15/18 09:32 Blood - Peripheral Venous Blood Culture - Final NO GROWTH AFTER 5 DAYS INCUBATION 06/15/18 04:00 Sputum - Endotrachea Suction/Ventilator Gram Stain - Final 06/15/18 04:00 Sputum - Endotrachea Suction/Ventilator Sputum Culture - Final Acinetobacter Baumannii/Haemol 06/10/18 18:00 Blood - Peripheral Venous Blood Culture - Final NO GROWTH AFTER 5 DAYS INCUBATION 06/10/18 17:00 Blood - Peripheral Venous Blood Culture - Final NO GROWTH AFTER 5 DAYS INCUBATION 06/12/18 15:00 Stool Clostridium difficile Antigen (BENITO) - Final 06/12/18 15:00 Stool Clostridium difficile Toxin Assay - Final 05/27/18 17:42 Blood - Peripheral Venous Blood Culture - Final NO GROWTH AFTER 5 DAYS INCUBATION 05/27/18 17:42 Blood - Peripheral Venous Blood Culture - Final NO GROWTH AFTER 5 DAYS INCUBATION Current Medications Acetaminophen (Tylenol -) 650 mg PO Q6H PRN PRN Reason: PAIN LEVEL 6-10 Last Admin: 06/13/18 01:30 Dose: 650 mg Albuterol Sulfate (Ventolin 0.083% Nebulizer Soln -) 1 amp NEB Q2H PRN PRN Reason: SHORT OF BREATH/WHEEZING Last Admin: 06/22/18 03:45 Dose: 1 amp Albuterol/Ipratropium (Duoneb -) 1 amp NEB Q4HPO [facility] Last Admin: 06/24/18 05:11 Dose: 1 amp Bacitracin (Bacitracin -) 1 applic TP DAILY [facility] Last Admin: 06/23/18 10:50 Dose: 1 applic Calcium Acetate (Phoslo -) 1,334 mg PO TIDCM [facility] Last Admin: 06/23/18 17:02 Dose: 1,334 mg Chlorhexidine Gluconate (Hibiclens For Decolonization -) 1 applic TP HS [facility] Last Admin: 06/23/18 21:59 Dose: 1 applic Ergocalciferol (Drisdol -) 50,000 unit PO Q7D@1000 [facility] Last Admin: 06/15/18 10:59 Dose: Not Given Ferrous Sulfate (Feosol) 300 mg GT DAILY [facility] Last Admin: 06/23/18 09:46 Dose: 300 mg Fludrocortisone Acetate (Florinef -) 0.05 mg GT DAILY [facility] Last Admin: 06/23/18 10:58 Dose: 0.05 mg Folic Acid (Folic Acid -) 1 mg PO DAILY [facility] Last Admin: 06/23/18 09:46 Dose: 1 mg Hydrocortisone Sodium Succinate (Solu-Cortef -) 100 mg IVPUSH Q8H-IV [facility] Last Admin: 06/24/18 01:28 Dose: 100 mg Minocycline HCl 100 mg/ (Dextrose) 100 mls @ 100 mls/hr IVPB Q12H [facility] Last Admin: 06/24/18 02:00 Dose: 100 mls/hr Vasopressin 50 units/ Sodium (Chloride) 100 mls @ 4 mls/hr IVPB ASDIR [facility]; Protocol Last Admin: 06/23/18 18:19 Dose: Not Given Famotidine/Sodium Chloride (Pepcid 20 Mg Premixed Ivpb -) 20 mg in 50 mls @ 100 mls/hr IVPB BID [facility] Last Admin: 06/23/18 21:59 Dose: 100 mls/hr Fentanyl 500 mcg/ Dextrose 100 mls @ 15 mls/hr IVPB TITR [facility]; Protocol Last Admin: 06/23/18 22:00 Dose: 75 mcg/hr, 15 mls/hr Azithromycin (Zithromax 500mg Ivpb (Pre-Docked)) 500 mg in 250 mls @ 250 mls/ hr IVPB DAILY [facility] Last Admin: 06/23/18 09:47 Dose: 250 mls/hr Sodium Bicarbonate 150 meq/ (Dextrose) 1,150 mls @ 75 mls/hr IV Q14H [facility] Last Admin: 06/24/18 06:49 Dose: 75 mls/hr Norepinephrine Bitartrate 8, (000 mcg/ Sodium Chloride) 508 mls @ 83.82 mls/hr IV ASDIR [facility]ACH[facility]; Protocol Last Titration: 06/24/18 06:51 Dose: 15 mcg/min, 57.15 mls/hr Propofol (Diprivan -) 1,000,000 mcg in 100 mls @ 5.334 mls/hr IVPB TITR [facility]; Protocol Last Admin: 06/23/18 22:00 Dose: 25 mcg/kg/min, 13.336 mls/hr Caspofungin 50 mg/ Sodium (Chloride) 250 mls @ 250 mls/hr IVPB Q24H [facility] Montelukast Sodium (Singulair -) 10 mg PO HS [facility] Last Admin: 06/23/18 21:59 Dose: Not Given Polyethylene Glycol (Miralax (For Daily Use) -) 17 gm PO DAILY PRN PRN Reason: CONSTIPATION Roflumilast (Daliresp -) 500 mcg PO DAILY [facility] Last Admin: 06/23/18 10:57 Dose: 500 mcg Scopolamine HBr (Transderm-Scop -) 1 patch TD Q72H [facility] Last Admin: 06/21/18 10:07 Dose: 1 patch a/p fungemia HAP with MDR acinetobacter hypoxemic respiratory failure multiorgan failure sepsis- increasing pressor requrements thrombocytopenia/leukopenia- required blood and platelet transfusion giovnana worsening-s/p HD bronchiectasis with poor lung function at baseline continue cancidas s/p line change repeat blood cultures in am continue minocycline/zithromax redose polymyxin today strict contact isolation d/w ICU staff doing poorly overall prognosis poor over 40 minutes spent in the care of this critically ill ICU patient Problem List - Problems (1) Sepsis Code(s): A41.9 - SEPSIS, UNSPECIFIED ORGANISM (2) Acute on chronic respiratory failure with hypoxia and hypercapnia Code(s): J96.21 - ACUTE AND CHRONIC RESPIRATORY FAILURE WITH HYPOXIA; J96.22 - ACUTE AND CHRONIC RESPIRATORY FAILURE WITH HYPERCAPNIA (3) Hospital acquired PNA Code(s): J18.9 - PNEUMONIA, UNSPECIFIED ORGANISM
[2018-06-24] MEDS ORDERED: POLYMYXIN B SULFATE 500,000 UNIT VIAL IVPB ONE (09:51)
--- NOTE | 2018-06-24 09:55 | PROC ---
Central Line Insertion Indication: Vasopressor Risks and Benefits Explained: Yes Consent on Chart: Yes Central Line: Triple Lumen Catheter Anesthesia: 1% Lidocaine Sterile Technique: Yes Ultrasound Guided Assistance: Yes Position: Right Subclavian Post Insertion: Yes: Chest X-Ray Ordered Sterile Dressing Applied: Yes Remarks: Performed on 06/23/2018 4PM
[2018-06-24] MEDS ORDERED: CASPOFUNGIN ACETATE 50 MG in SODIUM CHLORIDE 250 ML IVPB SCH (10:00)
[2018-06-24] MEDS: AZITHROMYCIN IVPB 500 MG/250 ML BAG IVPB SCH (10:10)
[2018-06-24] MEDS: FAMOTIDINE 20 MG/50 ML IVPB 20 MG/50 ML MG IVPB SCH ×2 (10:10→21:26)
[2018-06-24] MEDS: ROFLUMILAST 500 MCG TABLET PO SCH (10:12)
[2018-06-24] MEDS: BACITRACIN 15 GM TUBE TOPICAL OINTMENT TP SCH (10:12)
[2018-06-24] MEDS: FOLIC ACID 1 MG TABLET (FP) PO SCH (10:13)
[2018-06-24] MEDS: FERROUS SO4 300 MG/5 ML ORAL SOLN UNIT DOSE CUPS GT SCH (10:15)
[2018-06-24] MEDS: SCOPOLAMINE HYDROBROMIDE 1 PATCH PATCH.TD72 TD SCH (10:15)
[2018-06-24] MEDS ORDERED: WATER IVPB ONE (10:30)
[2018-06-24] MEDS ORDERED: DEXTROSE 5% IVPB ONE (10:30)
[2018-06-24] MEDS ORDERED: POLYMYXIN B SULFATE IVPB ONE (10:30)
[2018-06-24] MEDS ORDERED: PT OWN MED DRAWER 7, Y5N ONE ×2 (10:41→12:14)
[2018-06-24] MEDS: FLUDROCORTISONE ACETATE 0.1 MG TABLET (FP) GT SCH (10:46)
[2018-06-24] MEDS: ALBUMIN HUMAN 25% 12.5 GM/50 ML VIAL IVPB SCH ×2 (11:24→11:25)
[2018-06-24] MEDS: CASPOFUNGIN ACETATE 50 MG in SODIUM CHLORIDE 250 ML IVPB SCH (12:29)
[2018-06-24] MEDS: PROPOFOL 1,000,000 MCG/100 ML VIAL IVPB SCH ×2 (13:40→16:25)
--- NOTE | 2018-06-24 13:57 | PN ---
Teaching Attending Note Name of Resident: Long Petersen ATTENDING PHYSICIAN STATEMENT I saw and evaluated the patient. I reviewed the resident's note and discussed the case with the resident. I agree with the resident's findings and plan as documented. SUBJECTIVE: Patient seen and examined in the ICU. Remains intubated, sedated. On increased pressor requirements (NE /Vaso). Yeast growing in blood cultures. NO improvement in terms of respiratory support. Progressive MOF. OBJECTIVE: Intake & Output 06/21/18 06/22/18 06/23/18 06/24/18 23:59 23:59 23:59 23:59 Intake Total 6185 4625 4192 Output Total 375 600 900 300 Balance 5810 4025 3292 -300 Weight 182 lb 4 oz 196 lb 203 lb 14.4 oz 206 lb 5.643 oz Last Vital Signs Temp Pulse Resp BP Pulse Ox 97.5 F L 75 21 H 116/58 L 99 06/24/18 10:00 06/24/18 12:00 06/24/18 12:00 06/24/18 12:00 06/24/18 07:32 Active Medications Acetaminophen (Tylenol -) 650 mg PO Q6H PRN PRN Reason: PAIN LEVEL 6-10 Last Admin: 06/13/18 01:30 Dose: 650 mg Albuterol Sulfate (Ventolin 0.083% Nebulizer Soln -) 1 amp NEB Q2H PRN PRN Reason: SHORT OF BREATH/WHEEZING Last Admin: 06/22/18 03:45 Dose: 1 amp Albuterol/Ipratropium (Duoneb -) 1 amp NEB Q4HPO [facility] Last Admin: 06/24/18 09:40 Dose: 1 amp Bacitracin (Bacitracin -) 1 applic TP DAILY [facility] Last Admin: 06/24/18 10:12 Dose: 1 applic Calcium Acetate (Phoslo -) 1,334 mg PO TIDCM [facility] Last Admin: 06/24/18 12:29 Dose: 1,334 mg Chlorhexidine Gluconate (Hibiclens For Decolonization -) 1 applic TP HS [facility] Last Admin: 06/23/18 21:59 Dose: 1 applic Ergocalciferol (Drisdol -) 50,000 unit PO Q7D@1000 [facility] Last Admin: 06/15/18 10:59 Dose: Not Given Ferrous Sulfate (Feosol) 300 mg GT DAILY [facility] Last Admin: 06/24/18 10:15 Dose: 300 mg Fludrocortisone Acetate (Florinef -) 0.05 mg GT DAILY [facility] Last Admin: 06/24/18 10:46 Dose: 0.05 mg Folic Acid (Folic Acid -) 1 mg PO DAILY [facility] Last Admin: 06/24/18 10:13 Dose: 1 mg Hydrocortisone Sodium Succinate (Solu-Cortef -) 100 mg IVPUSH Q8H-IV [facility] Last Admin: 06/24/18 10:11 Dose: 100 mg Minocycline HCl 100 mg/ (Dextrose) 100 mls @ 100 mls/hr IVPB Q12H [facility] Last Admin: 06/24/18 02:00 Dose: 100 mls/hr Vasopressin 50 units/ Sodium (Chloride) 100 mls @ 4 mls/hr IVPB ASDIR [facility]; Protocol Last Admin: 06/23/18 18:19 Dose: Not Given Famotidine/Sodium Chloride (Pepcid 20 Mg Premixed Ivpb -) 20 mg in 50 mls @ 100 mls/hr IVPB BID [facility] Last Admin: 06/24/18 10:10 Dose: 100 mls/hr Fentanyl 500 mcg/ Dextrose 100 mls @ 15 mls/hr IVPB TITR [facility]; Protocol Last Admin: 06/23/18 22:00 Dose: 75 mcg/hr, 15 mls/hr Azithromycin (Zithromax 500mg Ivpb (Pre-Docked)) 500 mg in 250 mls @ 250 mls/ hr IVPB DAILY [facility] Last Admin: 06/24/18 10:10 Dose: 250 mls/hr Sodium Bicarbonate 150 meq/ (Dextrose) 1,150 mls @ 75 mls/hr IV Q14H [facility] Last Admin: 06/24/18 06:49 Dose: 75 mls/hr Norepinephrine Bitartrate 8, (000 mcg/ Sodium Chloride) 508 mls @ 83.82 mls/hr IV ASDIR [facility]; Protocol Last Titration: 06/24/18 06:51 Dose: 15 mcg/min, 57.15 mls/hr Propofol (Diprivan -) 1,000,000 mcg in 100 mls @ 5.334 mls/hr IVPB TITR [facility]; Protocol Last Admin: 06/23/18 22:00 Dose: 25 mcg/kg/min, 13.336 mls/hr Caspofungin 50 mg/ Sodium (Chloride) 250 mls @ 250 mls/hr IVPB Q24H [facility] Last Admin: 06/24/18 12:29 Dose: 250 mls/hr Montelukast Sodium (Singulair -) 10 mg PO HS [facility] Last Admin: 06/23/18 21:59 Dose: Not Given Polyethylene Glycol (Miralax (For Daily Use) -) 17 gm PO DAILY PRN PRN Reason: CONSTIPATION Roflumilast (Daliresp -) 500 mcg PO DAILY [facility] Last Admin: 06/24/18 10:12 Dose: 500 mcg Scopolamine HBr (Transderm-Scop -) 1 patch TD Q72H [facility] Last Admin: 06/24/18 10:15 Dose: 1 patch Gen: intubated, sedated Heart: tachycardic, regular Lung: bilateral rhonchi Abd: softly distended, nontender, +hematoma Ext: + edema Laboratory Results - last 24 hr 06/23/18 06/23/18 06/23/18 16:30 18:15 19:20 WBC 2.0 L 1.8 L* RBC 3.57 L 3.51 L Hgb 9.5 L 9.3 L Hct 27.5 L 26.8 L MCV 77.1 L 76.5 L MCH 26.7 26.7 MCHC 34.6 34.8 RDW 20.7 H 21.1 H Plt Count 92 L D 84 L MPV 8.4 8.6 Absolute Neuts (auto) 1.8 Neutrophils % 89.5 H Lymphocytes % 9.6 D Monocytes % 0.5 L D Eosinophils % 0.1 D Basophils % 0.3 Nucleated RBC % 0 PT with INR INR PTT (Actin FS) Fibrinogen Sodium Potassium Chloride Carbon Dioxide Anion Gap BUN Creatinine Creat Clearance w eGFR Random Glucose Calcium Phosphorus Magnesium Total Bilirubin Direct Bilirubin AST ALT Alkaline Phosphatase Total Protein Albumin Urine Color Yellow Urine Appearance Cloudy Urine pH 5.0 Ur Specific [place] 1.010 Urine Protein 1+ H Urine Glucose (UA) Negative Urine Ketones Negative Urine Blood 3+ H Urine Nitrite Negative Urine Bilirubin Negative Urine Urobilinogen Negative Ur Leukocyte Esterase 1+ H Urine WBC (Auto) 68 Urine RBC (Auto) 116 Ur Epithelial Cells Rare Urine Mucus Rare Urine Yeast Many 06/24/18 06/24/18 06/24/18 05:30 05:30 05:30 WBC 2.1 L RBC 3.27 L Hgb 8.9 L Hct 24.6 L MCV 75.1 L MCH 27.3 MCHC 36.3 H RDW 21.1 H Plt Count 50 L D MPV 9.4 Absolute Neuts (auto) 1.9 Neutrophils % No Result Required. Lymphocytes % No Result Required. Monocytes % Eosinophils % Basophils % Nucleated RBC % 0 PT with INR 13.50 H INR 1.14 H PTT (Actin FS) 42.1 H Fibrinogen 193.0 L Sodium Potassium Chloride Carbon Dioxide Anion Gap BUN Creatinine Creat Clearance w eGFR Random Glucose Calcium Phosphorus Magnesium Total Bilirubin Direct Bilirubin AST ALT Alkaline Phosphatase Total Protein Albumin Urine Color Urine Appearance Urine pH Ur Specific [place] Urine Protein Urine Glucose (UA) Urine Ketones Urine Blood Urine Nitrite Urine Bilirubin Urine Urobilinogen Ur Leukocyte Esterase Urine WBC (Auto) Urine RBC (Auto) Ur Epithelial Cells Urine Mucus Urine Yeast 06/24/18 05:30 WBC RBC Hgb Hct MCV MCH MCHC RDW Plt Count MPV Absolute Neuts (auto) Neutrophils % Lymphocytes % Monocytes % Eosinophils % Basophils % Nucleated RBC % PT with INR INR PTT (Actin FS) Fibrinogen Sodium 133 L Potassium 3.5 Chloride 92 L Carbon Dioxide 31 Anion Gap 10 BUN 82 H Creatinine 2.1 H Creat Clearance w eGFR 24.11 Random Glucose 94 Calcium 7.2 L Phosphorus 7.4 H Magnesium 1.9 Total Bilirubin 2.6 H Direct Bilirubin 2.2 H AST 143 H ALT 102 H Alkaline Phosphatase 63 Total Protein 3.1 L Albumin 1.2 L Urine Color Urine Appearance Urine pH Ur Specific [place] Urine Protein Urine Glucose (UA) Urine Ketones Urine Blood Urine Nitrite Urine Bilirubin Urine Urobilinogen Ur Leukocyte Esterase Urine WBC (Auto) Urine RBC (Auto) Ur Epithelial Cells Urine Mucus Urine Yeast ASSESSMENT AND PLAN: Progressive MOF Acute on Chronic Hypoxic and Hypercapneic Respiratory Failure Pneumonia Fungemia Septic Shock Acute Kidney Injury Acute COPD/Bronchiectasis Exacerbation ARDS HTN - continue antibiotics, antifungals per ID - transfuse platelets as needed - IVF to keep CVP 8-12 - titrate pressors to maintain MAP >65 - monitor urine output, creatinine - HD per renal - inhaled bronchodilators standing and PRN - continue stress dose steroids - monitor Ppeak, Pplat - low tidal volume ventilation 6cc/kg/IBW - keep Pplat <30 - taper Fio2 to keep Spo2 >90% - monitor ABG - enteral feeds as tolerated - DVT/GI prophylaxis - continue ICU monitoring - Long family discussion with , son, and extended family. She has been made DNR. Further GOC to be determined but for now continue current management. Dr Carty Critical care time spent in reviewing chart, evaluating patient and formulating plan - 36 minutes.
--- NOTE | 2018-06-24 14:29 | PN ---
Teaching Attending Note Name of Resident: Babs Flores ATTENDING PHYSICIAN STATEMENT I saw and evaluated the patient. I reviewed the resident's note and discussed the case with the resident. I agree with the resident's findings and plan as documented. SUBJECTIVE:intubated/sedated OBJECTIVE: Last Vital Signs Temp Pulse Resp BP Pulse Ox 97.5 F L 75 21 H 116/58 L 99 06/24/18 10:00 06/24/18 12:00 06/24/18 12:00 06/24/18 12:00 06/24/18 07:32 Intake & Output 06/21/18 06/22/18 06/23/18 06/24/18 23:59 23:59 23:59 23:59 Intake Total 6185 4625 4192 Output Total 375 600 900 300 Balance 5810 4025 3292 -300 Weight 182 lb 4 oz 196 lb 203 lb 14.4 oz 206 lb 5.643 oz General intubated/sedated, +white secretions on suctioning Lungs coarse breath sounds Abdomen soft NT/ND Extremities 1+ pitting edema in all extremities Neuro sluggish corneal reflex. no gag reflex, neg dolls eyes ASSESSMENT AND PLAN: 58yo F with PMH HTn, COPD on home O2 (3L NC) and anemia presented with acute COPD exacerbation. Course was complicated by development of CHIKI PNA and was transferred to MICU on 06/12 and now worsened with ARDS with shock on 2 pressors 1. Acute on chronic hypoxic and hypercapnic respiratory distress-r/o ARDS. intubated. full vent support. medrol 40mg Q8H. not a candidate for titration at this time. ICU team on board 2. Septic shock with multiorgan failure- due to MDR Acineobacter PNA and BCx now showing fungus. lines replaced. on caspofungin day 2. on minocycline and polymixin. on 2 pressor support, unable to titrate down. ID on board. Contact and droplet precautions 3. RAOUL- due to septic shock. s/p HD x3 sessions. cont to assess need for HD daily.on bicarb ggt. Nephro on board. 4. Panocytopenia- due to septic shock and ARDS. s/p 3 units PRBC and 6 units platelets this hospital stay. no signs of bleeding. HIT panel pending. heme on board 5. Hyperkalemia- resolved after HD 6 Respiratory acidosis- stable. cont to monitor. adjust vent as needed 7. Acute toxic/metabolic encephalopathy- due to septic shock. unable to do sedation vacation at this time to fully assess mental status. cont full sedation. 8. DVT ppx- SCD. hold pharmacologic in setting of thrombocytopenia 9. poor overall prognosis. palliative care consulted 10. Family meeting today with HCP and extended family. is now DNR. The care of this patient involved high complexity decision making to prevent further life threatening deterioration of the patient's condition and/or to evaluate & treat vital organ system(s) failure or risk of failure. 36 minutes
[2018-06-24] MEDS: FENTANYL INJECTION 500 MCG in DEXTROSE 5%-WATER - 90 ML IVPB SCH (14:45)
[2018-06-24 15:49] VITALS: BMI 38.9
--- NOTE | 2018-06-24 16:17 | PN ---
Physical Exam: SUBJECTIVE: Patient seen and examined at bedside this morning. Patient is sedated and intubated. OBJECTIVE: Vital Signs Period Temp Pulse Resp BP Sys/Echevarria Pulse Ox Last 24 Hr 97.5 F-98.2 F 72-112 20-28 98-140/46-69 97-100 GENERAL: Patient is sedated, intubated. NECK: Trachea midline, full range of motion, supple. LUNGS: + diffuse rhonchi bilaterally, decreased air entry HEART: regular rate, normal S1, S2 without murmur, rub or gallop. ABDOMEN: Distended, normoactive bowel sounds, +hematoma on LLQ. EXTREMITIES: 2+ pulses, warm, well-perfused, +3 edema on all extremities SKIN: Warm, +bullae on left medial thigh Laboratory Results - last 24 hr 06/23/18 06/23/18 06/23/18 16:30 18:15 19:20 WBC 2.0 L 1.8 L* RBC 3.57 L 3.51 L Hgb 9.5 L 9.3 L Hct 27.5 L 26.8 L MCV 77.1 L 76.5 L MCH 26.7 26.7 MCHC 34.6 34.8 RDW 20.7 H 21.1 H Plt Count 92 L D 84 L MPV 8.4 8.6 Absolute Neuts (auto) 1.8 Total Counted Neutrophils % 89.5 H Neutrophils % (Manual) Band Neutrophils % Lymphocytes % 9.6 D Lymphocytes % (Manual) Monocytes % 0.5 L D Monocytes % (Manual) Eosinophils % 0.1 D Eosinophils % (Manual) Basophils % 0.3 Basophils % (Manual) Nucleated RBC % 0 PT with INR INR PTT (Actin FS) Fibrinogen Sodium Potassium Chloride Carbon Dioxide Anion Gap BUN Creatinine Creat Clearance w eGFR Random Glucose Calcium Phosphorus Magnesium Total Bilirubin Direct Bilirubin AST ALT Alkaline Phosphatase Total Protein Albumin Urine Color Yellow Urine Appearance Cloudy Urine pH 5.0 Ur Specific [place] 1.010 Urine Protein 1+ H Urine Glucose (UA) Negative Urine Ketones Negative Urine Blood 3+ H Urine Nitrite Negative Urine Bilirubin Negative Urine Urobilinogen Negative Ur Leukocyte Esterase 1+ H Urine WBC (Auto) 68 Urine RBC (Auto) 116 Ur Epithelial Cells Rare Urine Mucus Rare Urine Yeast Many 06/24/18 06/24/18 06/24/18 05:30 05:30 05:30 WBC 2.1 L RBC 3.27 L Hgb 8.9 L Hct 24.6 L MCV 75.1 L MCH 27.3 MCHC 36.3 H RDW 21.1 H Plt Count 50 L D MPV 9.4 Absolute Neuts (auto) 1.9 Total Counted 100 Neutrophils % No Result Required. Neutrophils % (Manual) 86.0 H Band Neutrophils % 1.0 Lymphocytes % No Result Required. Lymphocytes % (Manual) 8.0 Monocytes % Monocytes % (Manual) 5 Eosinophils % Eosinophils % (Manual) 0.0 Basophils % Basophils % (Manual) 0.0 Nucleated RBC % 0 PT with INR 13.50 H INR 1.14 H PTT (Actin FS) 42.1 H Fibrinogen 193.0 L Sodium Potassium Chloride Carbon Dioxide Anion Gap BUN Creatinine Creat Clearance w eGFR Random Glucose Calcium Phosphorus Magnesium Total Bilirubin Direct Bilirubin AST ALT Alkaline Phosphatase Total Protein Albumin Urine Color Urine Appearance Urine pH Ur Specific [place] Urine Protein Urine Glucose (UA) Urine Ketones Urine Blood Urine Nitrite Urine Bilirubin Urine Urobilinogen Ur Leukocyte Esterase Urine WBC (Auto) Urine RBC (Auto) Ur Epithelial Cells Urine Mucus Urine Yeast 06/24/18 05:30 WBC RBC Hgb Hct MCV MCH MCHC RDW Plt Count MPV Absolute Neuts (auto) Total Counted Neutrophils % Neutrophils % (Manual) Band Neutrophils % Lymphocytes % Lymphocytes % (Manual) Monocytes % Monocytes % (Manual) Eosinophils % Eosinophils % (Manual) Basophils % Basophils % (Manual) Nucleated RBC % PT with INR INR PTT (Actin FS) Fibrinogen Sodium 133 L Potassium 3.5 Chloride 92 L Carbon Dioxide 31 Anion Gap 10 BUN 82 H Creatinine 2.1 H Creat Clearance w eGFR 24.11 Random Glucose 94 Calcium 7.2 L Phosphorus 7.4 H Magnesium 1.9 Total Bilirubin 2.6 H Direct Bilirubin 2.2 H AST 143 H ALT 102 H Alkaline Phosphatase 63 Total Protein 3.1 L Albumin 1.2 L Urine Color Urine Appearance Urine pH Ur Specific [place] Urine Protein Urine Glucose (UA) Urine Ketones Urine Blood Urine Nitrite Urine Bilirubin Urine Urobilinogen Ur Leukocyte Esterase Urine WBC (Auto) Urine RBC (Auto) Ur Epithelial Cells Urine Mucus Urine Yeast Active Medications Generic Name Dose Route Start Last Admin Trade Name Freq PRN Reason Stop Dose Admin Acetaminophen 650 mg 06/12/18 17:35 06/13/18 01:30 Tylenol - PO 650 mg Q6H PRN Administration PAIN LEVEL 6-10 Albuterol Sulfate 1 amp 06/21/18 08:25 06/22/18 03:45 Ventolin 0.083% Nebulizer Soln - NEB 1 amp Q2H PRN Administration SHORT OF BREATH/WHEEZING Albuterol/Ipratropium 1 amp 06/16/18 14:00 06/24/18 13:45 Duoneb - NEB 1 amp Q4HPO ZACHARY Administration Bacitracin 1 applic 06/20/18 10:00 06/24/18 10:12 Bacitracin - TP 1 applic DAILY ZACHARY Administration Calcium Acetate 1,334 mg 06/21/18 08:21 06/24/18 12:29 Phoslo - PO 1,334 mg TIDCM ZACHARY Administration Chlorhexidine Gluconate 1 applic 06/12/18 22:00 06/23/18 21:59 Hibiclens For Decolonization - TP 1 applic HS ZACHARY Administration Ergocalciferol 50,000 unit 06/15/18 10:00 06/15/18 10:59 Drisdol - PO Not Given Q7D@1000 ZACHARY Ferrous Sulfate 300 mg 06/16/18 10:00 06/24/18 10:15 Feosol GT 300 mg DAILY ZACHARY Administration Fludrocortisone Acetate 0.05 mg 06/21/18 10:00 06/24/18 10:46 Florinef - GT 0.05 mg DAILY ZACHARY Administration Folic Acid 1 mg 06/13/18 10:00 06/24/18 10:13 Folic Acid - PO 1 mg DAILY ZACHARY Administration Hydrocortisone Sodium Succinate 100 mg 06/21/18 18:00 06/24/18 10:11 Solu-Cortef - IVPUSH 100 mg Q8H-IV ZACHARY Administration Minocycline HCl 100 mg/ 100 mls @ 100 mls/hr 06/17/18 15:00 06/24/18 14:42 Dextrose IVPB 100 mls/hr Q12H ZACHARY Administration Vasopressin 50 units/ Sodium 100 mls @ 4 mls/hr 06/18/18 17:25 06/23/18 18:19 Chloride IVPB Not Given ASDIR ZACHARY Protocol 2 UNITS/HR Famotidine/Sodium Chloride 20 mg in 50 mls @ 100 mls/hr 06/21/18 10:30 10:10 Pepcid 20 Mg Premixed Ivpb - IVPB 100 mls/hr BID ZACHARY Administration Fentanyl 500 mcg/ Dextrose 100 mls @ 15 mls/hr 06/22/18 11:45 06/24/18 14:45 IVPB 75 mcg/hr TITR ZACHARY 15 mls/hr Administration Protocol 75 MCG/HR Azithromycin 500 mg in 250 mls @ 250 mls/hr 06/22/18 11:30 06/24/18 10:10 Zithromax 500mg Ivpb (Pre-Docked) IVPB 250 mls/hr DAILY ZACHARY Administration Norepinephrine Bitartrate 8, 508 mls @ 83.82 mls/hr 06/22/18 15:28 06/24/18 06:51 000 mcg/ Sodium Chloride IV 15 mcg/min ASDIR ZACHARY 57.15 mls/hr Titration Protocol 22 MCG/MIN Propofol 1,000,000 mcg in 100 mls @ 5.334 mls/hr 06/22/18 16:15 06/24/18 13: 40 Diprivan - IVPB 36 mcg/kg/min TITR ZACHARY 19.203 mls/hr Administration Protocol 10 MCG/KG/MIN Caspofungin 50 mg/ Sodium 250 mls @ 250 mls/hr 06/24/18 11:30 06/24/18 12:29 Chloride IVPB 250 mls/hr Q24H ZACHARY Administration Montelukast Sodium 10 mg 06/12/18 22:00 06/23/18 21:59 Singulair - PO Not Given HS ZACHARY Polyethylene Glycol 17 gm 06/12/18 17:35 Miralax (For Daily Use) - PO DAILY PRN CONSTIPATION Roflumilast 500 mcg 06/13/18 10:00 06/24/18 10:12 Daliresp - PO 500 mcg DAILY ZACHARY Administration Scopolamine HBr 1 patch 06/18/18 10:30 06/24/18 10:15 Transderm-Scop - TD 1 patch Q72H ZACHARY Administration Imaging: Chest X-Ray (05/27/18): No significant interval change. Persistent bilateral increased interstitial markings. Differential diagnosis again includes chronic interstitial lung disease. Cannot rule out noncardiogenic mild pulmonary venous congestion or interstitial infiltrates. Chest X-ray (05/30/18): No acute pathology or significant change. Chest CT scan without contrast (05/31/18): Moderately severe COPD with extensive bilateral bronchiectasis. These findings are unchanged since a previous study of 02/07/18. There is no evidence of acute pathology within the chest. CXR (06/06/18) 2 views of the some minimal degenerative changes with wedging. The soft tissues are intact. The chest reveal a normal-sized heart, normal knob and normal genesis. There are some coarse lung changes. There may be some linear atelectasis/density by the left heart border. Since the prior study 05/30/18, the density by the left heart border has become apparent. This most likely represents a focal area of atelectasis. CXR (06/10/18): New pulmonary consolidation medial aspect of the left upper lung zone obscuring aortic arch. No pleural effusion, or pneumothorax seen. No evidence of vascular congestive changes. CXR (06/13/18): Resolving segmental left upper lobe pneumonia. Left lower lobe pneumonia unchanged. CXR (06/14/18): No significant change in left sided infiltrates. ASSESSMENT/PLAN: Patient is a 58 year old female who presented with shortness of breath and found to be in COPD exacerbation. #Acute Respiratory Distress Syndrome - Patient intubated due to respiratory distress - levophed + vasopressin , titrate to maintain MAP>65 - Solumedrol discontinued - Hydrocortisone shock dose 100 q8 - Duonebs q4 STA, - albuterol q4 PRN - Daliresp GT - Nasogastric tube placed. - propofol/fentanyl titrated to prevent bucking ventilator - Blood Cx- positive for yeast infection. - Started on Caspofungin per ID. - CXR and ABG daily - LFTs worsening #Hospital acquired pneumonia - CXR - worsening - Sputum culture - Acinetobacter baumanii/haemol. - ID (Dr. Tao) consulted. Recommendations appreciated. - Polymyxin, minocycline, Azithromax -- renally dosed - Additional Vancomycin given after hemodialysis - Must be on continuous IV fluids due to Nephrotoxic antibiotics. #RAOUL on CKD: -Renal ultrasound done. -Nephrology (Dr. Marquez) consulted. Recommendations appreciated. -worsening renal function -Dialysis today -Maintain daily and monitor Urine output -Renal US - suggestive of CKD -FeNa 0.8%, likely pre-renal 2/2 hypotension -14 [place] catheter placed by urology #Hyperkalemia/hyperphosphatemia: -K 4.2, Ph 9.4 -Dialysis today #Pancytopenia: Hgb 8.9, WBC 2.1, Plt 50 -likely multifactorial from ARDS, sepsis -Hematology consulted. Recommendations appreciated. -PT wnl, INR and PTT elevated, Fibrinogen 193 -serial fibrinogen -may require FFP -hold lovenox -monitor CBC closely, transfusion threshhold 7 for PRBC, 20 for Plt -Anti-Plt Ab negative, immunologic studies negative #FEN - D5w + 150 meq bicarb - cmp monitoring - Nepro GT held due to residuals #Prophylaxis - Hold Lovenox for now. Patient has low platelet count. #Disposition - To ICU for closer monitoring. - Meeting with family held today. - DNR. Visit type - Emergency Visit Emergency Visit: Yes ED Registration Date: 05/27/18 Care time: The patient presented to the Emergency Department on the above date and was hospitalized for further evaluation of their emergent condition. - New Patient This patient is new to me today: Yes Date on this admission: 06/25/18 - Critical Care Critical Care patient: Yes Total Critical Care Time (in minutes): 40 Critical Care Statement: The care of this patient involved high complexity decision making to prevent further life threatening deterioration of the patient 's condition and/or to evaluate & treat vital organ system(s) failure or risk of failure.
--- NOTE | 2018-06-24 17:07 | PN ---
Progress Note, Physician History of Present Illness: Pt seen and examined at bedside. She remains in ICU. She remains intubated. - Current Medication List Current Medications: Active Medications Acetaminophen (Tylenol -) 650 mg PO Q6H PRN PRN Reason: PAIN LEVEL 6-10 Last Admin: 06/13/18 01:30 Dose: 650 mg Albuterol Sulfate (Ventolin 0.083% Nebulizer Soln -) 1 amp NEB Q2H PRN PRN Reason: SHORT OF BREATH/WHEEZING Last Admin: 06/22/18 03:45 Dose: 1 amp Albuterol/Ipratropium (Duoneb -) 1 amp NEB Q4HPO ZACHARY Last Admin: 06/24/18 13:45 Dose: 1 amp Bacitracin (Bacitracin -) 1 applic TP DAILY [facility] Last Admin: 06/24/18 10:12 Dose: 1 applic Calcium Acetate (Phoslo -) 1,334 mg PO TIDCM [facility] Last Admin: 06/24/18 12:29 Dose: 1,334 mg Chlorhexidine Gluconate (Hibiclens For Decolonization -) 1 applic TP HS [facility] Last Admin: 06/23/18 21:59 Dose: 1 applic Ergocalciferol (Drisdol -) 50,000 unit PO Q7D@1000 [facility] Last Admin: 06/15/18 10:59 Dose: Not Given Ferrous Sulfate (Feosol) 300 mg GT DAILY [facility] Last Admin: 06/24/18 10:15 Dose: 300 mg Fludrocortisone Acetate (Florinef -) 0.05 mg GT DAILY [facility] Last Admin: 06/24/18 10:46 Dose: 0.05 mg Folic Acid (Folic Acid -) 1 mg PO DAILY [facility] Last Admin: 06/24/18 10:13 Dose: 1 mg Hydrocortisone Sodium Succinate (Solu-Cortef -) 100 mg IVPUSH Q8H-IV [facility] Last Admin: 06/24/18 10:11 Dose: 100 mg Minocycline HCl 100 mg/ (Dextrose) 100 mls @ 100 mls/hr IVPB Q12H [facility] Last Admin: 06/24/18 14:42 Dose: 100 mls/hr Vasopressin 50 units/ Sodium (Chloride) 100 mls @ 4 mls/hr IVPB ASDIR ZACHARY; Protocol Last Admin: 06/23/18 18:19 Dose: Not Given Famotidine/Sodium Chloride (Pepcid 20 Mg Premixed Ivpb -) 20 mg in 50 mls @ 100 mls/hr IVPB BID [facility] Last Admin: 06/24/18 10:10 Dose: 100 mls/hr Fentanyl 500 mcg/ Dextrose 100 mls @ 15 mls/hr IVPB TITR [facility]; Protocol Last Admin: 06/24/18 14:45 Dose: 75 mcg/hr, 15 mls/hr Azithromycin (Zithromax 500mg Ivpb (Pre-Docked)) 500 mg in 250 mls @ 250 mls/ hr IVPB DAILY ZACHARY Last Admin: 06/24/18 10:10 Dose: 250 mls/hr Norepinephrine Bitartrate 8, (000 mcg/ Sodium Chloride) 508 mls @ 83.82 mls/hr IV ASDIR [facility]; Protocol Last Titration: 06/24/18 06:51 Dose: 15 mcg/min, 57.15 mls/hr Propofol (Diprivan -) 1,000,000 mcg in 100 mls @ 5.334 mls/hr IVPB TITR [facility]; Protocol Last Admin: 06/24/18 16:25 Dose: Not Given Caspofungin 50 mg/ Sodium (Chloride) 250 mls @ 250 mls/hr IVPB Q24H [facility] Last Admin: 06/24/18 12:29 Dose: 250 mls/hr Montelukast Sodium (Singulair -) 10 mg PO HS [facility] Last Admin: 06/23/18 21:59 Dose: Not Given Polyethylene Glycol (Miralax (For Daily Use) -) 17 gm PO DAILY PRN PRN Reason: CONSTIPATION Roflumilast (Daliresp -) 500 mcg PO DAILY [facility] Last Admin: 06/24/18 10:12 Dose: 500 mcg Scopolamine HBr (Transderm-Scop -) 1 patch TD Q72H [facility] Last Admin: 06/24/18 10:15 Dose: 1 patch - Objective Vital Signs: Vital Signs Temperature 97.7 F 06/24/18 14:00 Pulse Rate 72 06/24/18 16:00 Respiratory Rate 20 06/24/18 16:00 Blood Pressure 117/61 06/24/18 16:00 O2 Sat by Pulse Oximetry (%) 97 06/24/18 10:40 Constitutional: Yes: Calm HENT: Yes: Atraumatic Cardiovascular: Yes: S1, S2 Respiratory: Yes: Mechanically Ventilated Gastrointestinal: Yes: Soft Genitourinary: Yes: Ramírez Present Musculoskeletal: Yes: Muscle Weakness Edema: Yes Edema: LUE: 1+, RUE: 1+, LLE: 2+, RLE: 2+ Integumentary: Yes: Venous Stasis Changes Neurological: Yes: Lethargy Labs: CBC, BMP 06/24/18 05:30 06/24/18 05:30 INR, PTT INR 1.14 (0.83-1.09) H 06/24/18 05:30 Fibrinogen 193.0 mg/dL (238-498) L 06/24/18 05:30 Problem List - Problems (1) RAOUL (acute kidney injury) Code(s): N17.9 - ACUTE KIDNEY FAILURE, UNSPECIFIED (2) CKD (chronic kidney disease) Code(s): N18.9 - CHRONIC KIDNEY DISEASE, UNSPECIFIED (3) COPD exacerbation Code(s): J44.1 - CHRONIC OBSTRUCTIVE PULMONARY DISEASE W (ACUTE) EXACERBATION (4) Hospital acquired PNA Code(s): J18.9 - PNEUMONIA, UNSPECIFIED ORGANISM (5) Sepsis Code(s): A41.9 - SEPSIS, UNSPECIFIED ORGANISM (6) COPD (chronic obstructive pulmonary disease) with acute bronchitis Code(s): J44.0 - CHRONIC OBSTRUCTIVE PULMON DISEASE W ACUTE LOWER RESP INFCT Assessment/Plan Current Medications Generic Name Dose Route Start Last Admin Trade Name Freq PRN Reason Stop Dose Admin Acetaminophen 650 mg 06/12/18 17:35 06/13/18 01:30 Tylenol - PO 650 mg Q6H PRN Administration PAIN LEVEL 6-10 Albuterol Sulfate 1 amp 06/21/18 08:25 06/22/18 03:45 Ventolin 0.083% Nebulizer Soln - NEB 1 amp Q2H PRN Administration SHORT OF BREATH/WHEEZING Albuterol/Ipratropium 1 amp 06/16/18 14:00 06/24/18 13:45 Duoneb - NEB 1 amp Q4HPO ZACHARY Administration Bacitracin 1 applic 06/20/18 10:00 06/24/18 10:12 Bacitracin - TP 1 applic DAILY ZACHARY Administration Calcium Acetate 1,334 mg 06/21/18 08:21 06/24/18 12:29 Phoslo - PO 1,334 mg TIDCM ZACHARY Administration Chlorhexidine Gluconate 1 applic 06/12/18 22:00 06/23/18 21:59 Hibiclens For Decolonization - TP 1 applic HS ZACHARY Administration Ergocalciferol 50,000 unit 06/15/18 10:00 06/15/18 10:59 Drisdol - PO Not Given Q7D@1000 ZACHARY Ferrous Sulfate 300 mg 06/16/18 10:00 06/24/18 10:15 Feosol GT 300 mg DAILY ZACHARY Administration Fludrocortisone Acetate 0.05 mg 06/21/18 10:00 06/24/18 10:46 Florinef - GT 0.05 mg DAILY ZACHARY Administration Folic Acid 1 mg 06/13/18 10:00 06/24/18 10:13 Folic Acid - PO 1 mg DAILY ZACHARY Administration Hydrocortisone Sodium Succinate 100 mg 06/21/18 18:00 06/24/18 10:11 Solu-Cortef - IVPUSH 100 mg Q8H-IV ZACHARY Administration Minocycline HCl 100 mg/ 100 mls @ 100 mls/hr 06/17/18 15:00 06/24/18 14:42 Dextrose IVPB 100 mls/hr Q12H ZACHARY Administration Vasopressin 50 units/ Sodium 100 mls @ 4 mls/hr 06/18/18 17:25 06/23/18 18:19 Chloride IVPB Not Given ASDIR ZACHARY Protocol 2 UNITS/HR Famotidine/Sodium Chloride 20 mg in 50 mls @ 100 mls/hr 06/21/18 10:30 10:10 Pepcid 20 Mg Premixed Ivpb - IVPB 100 mls/hr BID ZACHARY Administration Fentanyl 500 mcg/ Dextrose 100 mls @ 15 mls/hr 06/22/18 11:45 06/24/18 14:45 IVPB 75 mcg/hr TITR ZACHARY 15 mls/hr Administration Protocol 75 MCG/HR Azithromycin 500 mg in 250 mls @ 250 mls/hr 06/22/18 11:30 06/24/18 10:10 Zithromax 500mg Ivpb (Pre-Docked) IVPB 250 mls/hr DAILY ZACHARY Administration Norepinephrine Bitartrate 8, 508 mls @ 83.82 mls/hr 06/22/18 15:28 06/24/18 06:51 000 mcg/ Sodium Chloride IV 15 mcg/min ASDIR ZACHARY 57.15 mls/hr Titration Protocol 22 MCG/MIN Propofol 1,000,000 mcg in 100 mls @ 5.334 mls/hr 06/22/18 16:15 06/24/18 16: 25 Diprivan - IVPB Not Given TITR ZACHARY Protocol 10 MCG/KG/MIN Caspofungin 50 mg/ Sodium 250 mls @ 250 mls/hr 06/24/18 11:30 06/24/18 12:29 Chloride IVPB 250 mls/hr Q24H ZACHARY Administration Montelukast Sodium 10 mg 06/12/18 22:00 06/23/18 21:59 Singulair - PO Not Given HS ZACHARY Polyethylene Glycol 17 gm 06/12/18 17:35 Miralax (For Daily Use) - PO DAILY PRN CONSTIPATION Roflumilast 500 mcg 06/13/18 10:00 06/24/18 10:12 Daliresp - PO 500 mcg DAILY ZACHARY Administration Scopolamine HBr 1 patch 06/18/18 10:30 06/24/18 10:15 Transderm-Scop - TD 1 patch Q72H ZACHARY Administration Impression 1. RAOUL 2. CKD 3. respiratory failure requiring intubation 4. sepsis 5. multi drug resistant Acinetobacter 6. copd exacerbation 7. anemia 8. hyperkalemia 9. thrombocytopenia Plan - d/c fluids - monitor volume status and urine output - possible lasix trial tomorrow - vent support - cont with pressors to maintain a map of 65 - daily cxr - RAOUL is likely multifactorial - discussed with ICU team - prognosis guarded Dr Marquez
[2018-06-24 18:24] LABS: URINE APPEARANCE CLOUDY; URINE BILIRUBIN NEGATIVE (<2.0 mg/dL); URINE COLOR DKYELLOW; URINE GLUCOSE (UA) NEGATIVE (NEGATIVE); URINE KETONE NEGATIVE (NEGATIVE); URINE LEUK ESTERASE TRACE (NEGATIVE); URINE NITRITE NEGATIVE (NEGATIVE); URINE PROTEIN 1+ (NEGATIVE); URINE UROBILINOGEN NEGATIVE mg/dL (0.2-1.0)
[2018-06-24 19:10] LABS: EPI CELLS RARE /HPF (FEW); URINE BACTERIA RARE /hpf (NONE SEEN); URINE MUCUS RARE; YEAST MODERATE
[2018-06-24] MEDS: SODIUM CHLORIDE 0.45% IV SCH (19:26)
[2018-06-24] MEDS: NOREPINEPHRINE BITARTRATE IV SCH (19:26)
[2018-06-24] MEDS: VASOPRESSIN 50 UNITS in SODIUM CHLORIDE 97.5 ML IVPB SCH (19:27)
[2018-06-24] MEDS ORDERED: NOREPINEPHRINE BITARTRATE 4 MG/4 ML ML IV ONE (20:55)
[2018-06-24] MEDS: CHLORHEXIDINE GLUCONATE 4% CLEANSER FOR DECOLONIZATION TP SCH (21:25)
[2018-06-24] MEDS: MONTELUKAST NA 10 MG TABLET PO SCH (21:26)
[2018-06-24 22:13] LABS: HEMATOCRIT 26.6 % (32.4-45.2); HEMOGLOBIN 9.6 GM/dL (10.7-15.3); MCH 27.3 pg (25.7-33.7); MCHC 36.1 g/dl (32.0-36.0); MEAN CELL VOLUME 75.7 fl (80-96); MEAN PLT VOLUME 10.2 fl (7.5-11.1); RBC 3.51 M/mm3 (3.60-5.2); RDW 21.7 % (11.6-15.6)
[2018-06-24 22:16] LABS: PLATELET COUNT 19 K/MM3 (134-434); WHITE BLOOD COUNT 1.9 K/mm3 (4.0-10.0)
[2018-06-25] MEDS: HYDROCORTISONE SOD SUCCINATE 100 MG/2 ML VIAL IVPUSH SCH ×3 (01:30→17:47)
[2018-06-25] MEDS: ALBUTEROL SO4 2.5/IPRATROPIUM 0.5 INH SOL 3 ML VIAL.NEB. NEB SCH ×6 (03:00→21:30)
[2018-06-25] MEDS: WATER IVPB SCH ×2 (03:30→15:47)
[2018-06-25] MEDS: DEXTROSE 5% IVPB SCH ×2 (03:30→15:47)
[2018-06-25] MEDS: MINOCYCLINE HCL IVPB SCH ×2 (03:30→15:47)
[2018-06-25 06:06] LABS: ARTERIAL BLD GAS O2 SATURATION 89.7 % (90-98.9); ARTERIAL BLOOD GAS BASE EXCESS 3.2 meq/l (-2-2); ARTERIAL BLOOD GAS PCO2 47.5 mmHg (35-45); ARTERIAL BLOOD GAS PO2 61.1 mmHg (80-100); ARTERIAL BLOOD GAS pH 7.39 (7.35-7.45)
[2018-06-25 06:18] LABS: HEMATOCRIT 22.9 % (32.4-45.2); HEMOGLOBIN 8.3 GM/dL (10.7-15.3); MCH 27.8 pg (25.7-33.7); MCHC 36.4 g/dl (32.0-36.0); MEAN CELL VOLUME 76.3 fl (80-96); MEAN PLT VOLUME 7.6 fl (7.5-11.1); PLATELET COUNT 125 K/MM3 (134-434); RDW 21.3 % (11.6-15.6)
[2018-06-25 06:26] LABS: INR 1.12 (0.83-1.09); PROTHROMBIN TIME (PATIENT) 13.2 SEC (9.7-13.0)
[2018-06-25 06:27] LABS: ADD RBC MORPHOLOGY YES; WHITE BLOOD COUNT 1.7 K/mm3 (4.0-10.0)
[2018-06-25] MEDS ORDERED: fentaNYL CITRATE 250 MCG/5 ML VIAL ONE ×3 (06:50→21:39)
[2018-06-25 07:05] LABS: ALBUMIN 1.3 g/dl (3.4-5.0); ALK PHOS 73 U/L (45-117); ANION GAP 10 MMOL/L (8-16); BILIRUBIN,DIRECT 2.9 mg/dL (0.0-0.2); BILIRUBIN,TOTAL 3.3 mg/dL (0.2-1); BLOOD UREA NITROGEN 83 mg/dL (7-18); CALCIUM 7.6 mg/dL (8.5-10.1); CHLORIDE 91 mmol/L (98-107); CO2 29 mmol/L (21-32); CREATININE 2.1 mg/dL (0.55-1.3); GLUCOSE,RANDOM 80 mg/dL (74-106); MAGNESIUM 1.8 mg/dL (1.8-2.4); PHOSPHOROUS 7.1 mg/dL (2.5-4.9); POTASSIUM 3.6 mmol/L (3.5-5.1); SGOT/AST 144 U/L (15-37); SGPT/ALT 118 U/L (13-61); SODIUM 130 mmol/L (136-145); TOT PROT 3.2 g/dl (6.4-8.2)
[2018-06-25 07:16] LABS: ALLENS TEST POSITIVE
--- NOTE | 2018-06-25 07:42 | PN ---
Progress Note (short form) - Note Progress Note: intubated/sedated Current Medications Generic Name Dose Route Start Last Admin Trade Name Freq PRN Reason Stop Dose Admin Acetaminophen 650 mg 06/12/18 17:35 06/13/18 01:30 Tylenol - PO 650 mg Q6H PRN Administration PAIN LEVEL 6-10 Albuterol Sulfate 1 amp 06/21/18 08:25 06/22/18 03:45 Ventolin 0.083% Nebulizer Soln - NEB 1 amp Q2H PRN Administration SHORT OF BREATH/WHEEZING Albuterol/Ipratropium 1 amp 06/16/18 14:00 06/25/18 06:30 Duoneb - NEB 1 amp Q4HPO ZACHARY Administration Bacitracin 1 applic 06/20/18 10:00 06/24/18 10:12 Bacitracin - TP 1 applic DAILY ZACHARY Administration Calcium Acetate 1,334 mg 06/21/18 08:21 06/24/18 17:25 Phoslo - PO 1,334 mg TIDCM ZACHARY Administration Chlorhexidine Gluconate 1 applic 06/12/18 22:00 06/24/18 21:25 Hibiclens For Decolonization - TP 1 applic HS ZACHARY Administration Ergocalciferol 50,000 unit 06/15/18 10:00 06/15/18 10:59 Drisdol - PO Not Given Q7D@1000 ZACHARY Ferrous Sulfate 300 mg 06/16/18 10:00 06/24/18 10:15 Feosol GT 300 mg DAILY ZACHARY Administration Fludrocortisone Acetate 0.05 mg 06/21/18 10:00 06/24/18 10:46 Florinef - GT 0.05 mg DAILY ZACHARY Administration Folic Acid 1 mg 06/13/18 10:00 06/24/18 10:13 Folic Acid - PO 1 mg DAILY ZACHARY Administration Hydrocortisone Sodium Succinate 100 mg 06/21/18 18:00 06/25/18 01:30 Solu-Cortef - IVPUSH 100 mg Q8H-IV ZACHARY Administration Minocycline HCl 100 mg/ 100 mls @ 100 mls/hr 06/17/18 15:00 06/25/18 03:30 Dextrose IVPB 100 mls/hr Q12H ZACHARY Administration Vasopressin 50 units/ Sodium 100 mls @ 4 mls/hr 06/18/18 17:25 06/25/18 06:58 Chloride IVPB 4 units/hr ASDIR ZACHARY 8 mls/hr Titration Protocol 2 UNITS/HR Famotidine/Sodium Chloride 20 mg in 50 mls @ 100 mls/hr 06/21/18 10:30 21:26 Pepcid 20 Mg Premixed Ivpb - IVPB 100 mls/hr BID ZACHARY Administration Fentanyl 500 mcg/ Dextrose 100 mls @ 15 mls/hr 06/22/18 11:45 06/25/18 04:00 IVPB 75 mcg/hr TITR ZACHARY 15 mls/hr Titration Protocol 75 MCG/HR Azithromycin 500 mg in 250 mls @ 250 mls/hr 06/22/18 11:30 06/24/18 10:10 Zithromax 500mg Ivpb (Pre-Docked) IVPB 250 mls/hr DAILY [facility]ACHARY Administration Norepinephrine Bitartrate 8, 508 mls @ 83.82 mls/hr 06/22/18 15:28 06/24/18 22:30 000 mcg/ Sodium Chloride IV 15 mcg/min ASDIR ZACHARY 57.15 mls/hr Titration Protocol 22 MCG/MIN Propofol 1,000,000 mcg in 100 mls @ 5.334 mls/hr 06/22/18 16:15 06/25/18 00: 00 Diprivan - IVPB 36 mcg/kg/min TITR [facility]ACH[facility] 19.203 mls/hr Titration Protocol 10 MCG/KG/MIN Caspofungin 50 mg/ Sodium 250 mls @ 250 mls/hr 06/24/18 11:30 06/24/18 12:29 Chloride IVPB 250 mls/hr Q24H ZACHARY Administration Montelukast Sodium 10 mg 06/12/18 22:00 06/24/18 21:26 Singulair - PO 10 mg HS ZACHARY Administration Polyethylene Glycol 17 gm 06/12/18 17:35 Miralax (For Daily Use) - PO DAILY PRN CONSTIPATION Roflumilast 500 mcg 06/13/18 10:00 06/24/18 10:12 Daliresp - PO 500 mcg DAILY ZACHARY Administration Scopolamine HBr 1 patch 06/18/18 10:30 06/24/18 10:15 Transderm-Scop - TD 1 patch Q72H ZACHARY Administration Last Vital Signs Temp Pulse Resp BP Pulse Ox 98.6 F 75 28 H 111/57 L 99 06/25/18 06:00 06/25/18 06:00 06/25/18 06:48 06/25/18 06:00 06/25/18 01:53 Intake & Output 06/22/18 06/23/18 06/24/18 06/25/18 23:59 23:59 23:59 23:59 Intake Total 4625 4192 2756 1180 Output Total 600 900 650 200 Balance 4025 3292 2106 980 Weight 196 lb 203 lb 14.4 oz 206 lb 5.643 oz 214 lb 1 oz General intubated/sedated, +white secretions on suctioning Lungs coarse breath sounds Abdomen soft NT/ND Extremities 1+ pitting edema in all extremities Neuro pupils fixed and dilated. no gag reflex, neg dolls eyes. CBCD WBC 1.7 K/mm3 (4.0-10.0) L* 06/25/18 05:30 RBC 3.00 M/mm3 (3.60-5.2) L 06/25/18 05:30 Hgb 8.3 GM/dL (10.7-15.3) L 06/25/18 05:30 Hct 22.9 % (32.4-45.2) L 06/25/18 05:30 MCV 76.3 fl (80-96) L 06/25/18 05:30 MCHC 36.4 g/dl (32.0-36.0) H 06/25/18 05:30 RDW 21.3 % (11.6-15.6) H 06/25/18 05:30 Plt Count 125 K/MM3 (134-434) L D 06/25/18 05:30 MPV 7.6 fl (7.5-11.1) D 06/25/18 05:30 CMP Sodium 130 mmol/L (136-145) L 06/25/18 05:30 Potassium 3.6 mmol/L (3.5-5.1) 06/25/18 05:30 Chloride 91 mmol/L (98-107) L 06/25/18 05:30 Carbon Dioxide 29 mmol/L (21-32) 06/25/18 05:30 Anion Gap 10 MMOL/L (8-16) 06/25/18 05:30 BUN 83 mg/dL (7-18) H 06/25/18 05:30 Creatinine 2.1 mg/dL (0.55-1.3) H 06/25/18 05:30 Creat Clearance w eGFR 24.11 (>60) 06/25/18 05:30 Calcium 7.6 mg/dL (8.5-10.1) L 06/25/18 05:30 Total Bilirubin 3.3 mg/dL (0.2-1) H 06/25/18 05:30 AST 144 U/L (15-37) H 06/25/18 05:30 ALT 118 U/L (13-61) H 06/25/18 05:30 Alkaline Phosphatase 73 U/L (45-117) 06/25/18 05:30 Total Protein 3.2 g/dl (6.4-8.2) L 06/25/18 05:30 Albumin 1.3 g/dl (3.4-5.0) L 06/25/18 05:30 Microbiology 06/21/18 20:50 Blood - Shiley Catheter Blood Culture - Final Yeast Like Organism 06/21/18 20:50 Blood - Shiley Catheter Blood Culture - Final Yeast Like Organism 06/11/18 17:49 Sputum - Expectorated Gram Stain - Final 06/11/18 17:49 Sputum - Expectorated Sputum Culture - Final Acinetobacter Baumannii/Haemol 06/15/18 09:30 Blood - Peripheral Venous Blood Culture - Final NO GROWTH AFTER 5 DAYS INCUBATION 06/15/18 09:32 Blood - Peripheral Venous Blood Culture - Final NO GROWTH AFTER 5 DAYS INCUBATION 06/15/18 04:00 Sputum - Endotrachea Suction/Ventilator Gram Stain - Final 06/15/18 04:00 Sputum - Endotrachea Suction/Ventilator Sputum Culture - Final Acinetobacter Baumannii/Haemol 06/10/18 18:00 Blood - Peripheral Venous Blood Culture - Final NO GROWTH AFTER 5 DAYS INCUBATION 06/10/18 17:00 Blood - Peripheral Venous Blood Culture - Final NO GROWTH AFTER 5 DAYS INCUBATION 06/12/18 15:00 Stool Clostridium difficile Antigen (BENITO) - Final 06/12/18 15:00 Stool Clostridium difficile Toxin Assay - Final 05/27/18 17:42 Blood - Peripheral Venous Blood Culture - Final NO GROWTH AFTER 5 DAYS INCUBATION 05/27/18 17:42 Blood - Peripheral Venous Blood Culture - Final NO GROWTH AFTER 5 DAYS INCUBATION ASSESSMENT AND PLAN: 58yo F with PMH HTn, COPD on home O2 (3L NC) and anemia presented with acute COPD exacerbation. Course was complicated by development of CHIKI PNA and was transferred to MICU on 06/12 and now worsened with ARDS with shock on 2 pressors 1. Acute on chronic hypoxic and hypercapnic respiratory distress-r/o ARDS. intubated. worsening congestion on CXR. unable to remove much fluid with HD due to hypotension. full vent support. not a candidate for titration at this time. ICU team on board 2. Septic shock with multiorgan failure- due to MDR Acineobacter PNA and BCx now showing fungus. lines replaced. on caspofungin day 3. on minocycline and polymixin. on 2 pressor support, unable to titrate down. hydrocortisone 100mg Q8H, florinef. ID on board. Contact and droplet precautions 3. RAOUL- due to septic shock. s/p HD x3 sessions. cont to assess need for HD daily.on bicarb ggt. Nephro on board. 4. Panocytopenia- due to septic shock and ARDS. s/p 3 units PRBC and 6 units platelets this hospital stay. no signs of bleeding. HIT panel pending. heme on board 5. Hyperkalemia- resolved after HD 6 Respiratory acidosis- stable. cont to monitor. adjust vent as needed 7. Acute toxic/metabolic encephalopathy- due to septic shock. pupils now appear fixed and dilated. no other brainstem reflexes are able to be elicited. spoke with ICU LAPIDARIST who will evaluate apnea testing. 8. DVT ppx- SCD. hold pharmacologic in setting of thrombocytopenia 9. DNR. poor overall prognosis. palliative care consulted The care of this patient involved high complexity decision making to prevent further life threatening deterioration of the patient's condition and/or to evaluate & treat vital organ system(s) failure or risk of failure. 40 minutes Visit type - Emergency Visit Emergency Visit: Yes ED Registration Date: 05/27/18 Care time: The patient presented to the Emergency Department on the above date and was hospitalized for further evaluation of their emergent condition. - New Patient This patient is new to me today: No - Critical Care Critical Care patient: Yes Total Critical Care Time (in minutes): 40 Critical Care Statement: The care of this patient involved high complexity decision making to prevent further life threatening deterioration of the patient 's condition and/or to evaluate & treat vital organ system(s) failure or risk of failure. - Discharge Referral Referred to [facility] No
--- NOTE | 2018-06-25 08:54 | PN ---
Progress Note (short form) - Note Progress Note: remains intubated and sedated on pressors intubated now DNR after family meeting Vital Signs Period Temp Pulse Resp BP Sys/Echevarria Pulse Ox Last 24 Hr 97.5 F-98.9 F 71-92 20-28 100-124/38-69 97-99 cor-rrr lungs decreased bs at bases abd soft, ecchymoses unchanged ext +edema CBC, BMP 06/25/18 05:30 06/25/18 05:30 Microbiology 06/21/18 20:50 Blood - Shiley Catheter Blood Culture - Final Yeast Like Organism 06/21/18 20:50 Blood - Shiley Catheter Blood Culture - Final Yeast Like Organism 06/11/18 17:49 Sputum - Expectorated Gram Stain - Final 06/11/18 17:49 Sputum - Expectorated Sputum Culture - Final Acinetobacter Baumannii/Haemol 06/15/18 09:30 Blood - Peripheral Venous Blood Culture - Final NO GROWTH AFTER 5 DAYS INCUBATION 06/15/18 09:32 Blood - Peripheral Venous Blood Culture - Final NO GROWTH AFTER 5 DAYS INCUBATION 06/15/18 04:00 Sputum - Endotrachea Suction/Ventilator Gram Stain - Final 06/15/18 04:00 Sputum - Endotrachea Suction/Ventilator Sputum Culture - Final Acinetobacter Baumannii/Haemol 06/10/18 18:00 Blood - Peripheral Venous Blood Culture - Final NO GROWTH AFTER 5 DAYS INCUBATION 06/10/18 17:00 Blood - Peripheral Venous Blood Culture - Final NO GROWTH AFTER 5 DAYS INCUBATION 06/12/18 15:00 Stool Clostridium difficile Antigen (BENITO) - Final 06/12/18 15:00 Stool Clostridium difficile Toxin Assay - Final 05/27/18 17:42 Blood - Peripheral Venous Blood Culture - Final NO GROWTH AFTER 5 DAYS INCUBATION 05/27/18 17:42 Blood - Peripheral Venous Blood Culture - Final NO GROWTH AFTER 5 DAYS INCUBATION Active Medications Acetaminophen (Tylenol -) 650 mg PO Q6H PRN PRN Reason: PAIN LEVEL 6-10 Last Admin: 06/13/18 01:30 Dose: 650 mg Albuterol Sulfate (Ventolin 0.083% Nebulizer Soln -) 1 amp NEB Q2H PRN PRN Reason: SHORT OF BREATH/WHEEZING Last Admin: 06/22/18 03:45 Dose: 1 amp Albuterol/Ipratropium (Duoneb -) 1 amp NEB Q4HPO [facility] Last Admin: 06/25/18 06:30 Dose: 1 amp Bacitracin (Bacitracin -) 1 applic TP DAILY [facility] Last Admin: 06/24/18 10:12 Dose: 1 applic Calcium Acetate (Phoslo -) 1,334 mg PO TIDCM ZACHARY Last Admin: 06/24/18 17:25 Dose: 1,334 mg Chlorhexidine Gluconate (Hibiclens For Decolonization -) 1 applic TP HS [facility] Last Admin: 06/24/18 21:25 Dose: 1 applic Ergocalciferol (Drisdol -) 50,000 unit PO Q7D@1000 [facility] Last Admin: 06/15/18 10:59 Dose: Not Given Ferrous Sulfate (Feosol) 300 mg GT DAILY [facility] Last Admin: 06/24/18 10:15 Dose: 300 mg Fludrocortisone Acetate (Florinef -) 0.05 mg GT DAILY [facility] Last Admin: 06/24/18 10:46 Dose: 0.05 mg Folic Acid (Folic Acid -) 1 mg PO DAILY [facility] Last Admin: 06/24/18 10:13 Dose: 1 mg Hydrocortisone Sodium Succinate (Solu-Cortef -) 100 mg IVPUSH Q8H-IV [facility] Last Admin: 06/25/18 01:30 Dose: 100 mg Minocycline HCl 100 mg/ (Dextrose) 100 mls @ 100 mls/hr IVPB Q12H ZACHARY Last Admin: 06/25/18 03:30 Dose: 100 mls/hr Vasopressin 50 units/ Sodium (Chloride) 100 mls @ 4 mls/hr IVPB ASDIR [facility]; Protocol Last Titration: 06/25/18 06:58 Dose: 4 units/hr, 8 mls/hr Famotidine/Sodium Chloride (Pepcid 20 Mg Premixed Ivpb -) 20 mg in 50 mls @ 100 mls/hr IVPB BID [facility] Last Admin: 06/24/18 21:26 Dose: 100 mls/hr Fentanyl 500 mcg/ Dextrose 100 mls @ 15 mls/hr IVPB TITR [facility]; Protocol Last Titration: 06/25/18 04:00 Dose: 75 mcg/hr, 15 mls/hr Azithromycin (Zithromax 500mg Ivpb (Pre-Docked)) 500 mg in 250 mls @ 250 mls/ hr IVPB DAILY [facility] Last Admin: 10/05/18 10:10 Dose: 250 mls/hr Norepinephrine Bitartrate 8, (000 mcg/ Sodium Chloride) 508 mls @ 83.82 mls/hr IV ASDIR [facility]; Protocol Last Titration: 06/24/18 22:30 Dose: 15 mcg/min, 57.15 mls/hr Propofol (Diprivan -) 1,000,000 mcg in 100 mls @ 5.334 mls/hr IVPB TITR ZACHARY; Protocol Last Titration: 06/25/18 00:00 Dose: 36 mcg/kg/min, 19.203 mls/hr Caspofungin 50 mg/ Sodium (Chloride) 250 mls @ 250 mls/hr IVPB Q24H [facility] Last Admin: 06/24/18 12:29 Dose: 250 mls/hr Montelukast Sodium (Singulair -) 10 mg PO HS [facility] Last Admin: 06/24/18 21:26 Dose: 10 mg Polyethylene Glycol (Miralax (For Daily Use) -) 17 gm PO DAILY PRN PRN Reason: CONSTIPATION Roflumilast (Daliresp -) 500 mcg PO DAILY [facility] Last Admin: 06/24/18 10:12 Dose: 500 mcg Scopolamine HBr (Transderm-Scop -) 1 patch TD Q72H [facility] Last Admin: 06/24/18 10:15 Dose: 1 patch a/p multiorgan failure fungemia HAP with MDR acinetobacter hypoxemic respiratory failure sepsis- increasing pressor requrements thrombocytopenia/leukopenia-suspect secondary to overwhelming sepsis giovanna -hd per renal bronchiectasis with poor lung function at baseline polymyxin dosed yesterday continue minocycline/zithromax continue cancidas s/p line change blood cultures repeated taper steroids if possible overall prognosis is grim Problem List - Problems (1) Sepsis Code(s): A41.9 - SEPSIS, UNSPECIFIED ORGANISM (2) Acute on chronic respiratory failure with hypoxia and hypercapnia Code(s): J96.21 - ACUTE AND CHRONIC RESPIRATORY FAILURE WITH HYPOXIA; J96.22 - ACUTE AND CHRONIC RESPIRATORY FAILURE WITH HYPERCAPNIA (3) Hospital acquired PNA Code(s): J18.9 - PNEUMONIA, UNSPECIFIED ORGANISM
--- NOTE | 2018-06-25 09:26 | PN ---
Progress Note (short form) - Note Progress Note: PULM.CCM SUBJECTIVE: Patient seen and examined in the ICU. 24HR: MSOF on multiple forms of life support worsening leukopenia still high dose vasopressors fugemic .lines changed yesterday Vital Signs Temp 98.6 F 06/25/18 06:00 Pulse 92 H 06/25/18 08:42 Resp 28 H 06/25/18 08:42 BP 111/57 L 06/25/18 06:00 Pulse Ox 97 06/25/18 08:42 Intake & Output 06/24/18 06/24/18 06/25/18 11:59 23:59 11:59 Intake Total 2756 1180 Output Total 300 350 200 Balance -300 2406 980 Weight 93.6 kg 97.097 kg Intake: IV 1733 840 DIPRIVAN - 1,000,000 mcg 220 228 In 100 ml @ 10 MCG/KG/MIN 5.334 mls/hr IVPB TITR ZACHARY Rx#:[id number] Levophed - 8,000 Mcg In 1 323 336 /2 Normal Saline 500 ml @ 22 MCG/MIN 83.82 mls/hr IV ASDIR ZACHARY Rx#: [id number] Pitressin - 50 Units In 92 96 Normal Saline - 97.5 ml @ 2 UNITS/HR 4 mls/hr IVPB ASDIR ZACHARY Rx#: [id number] Sublimaze Injection - 500 173 180 Mcg In D5w - 90 ml @ 75 MCG/HR 15 mls/hr IVPB TITR ZACHARY Rx#:[id number] bicarb 925 IVPB 923 100 Tube Feeding 20 240 Tube Irrigant 80 Output: Urine 300 350 200 Ramírez 300 350 200 Other: Voiding Method Indwelling Catheter Indwelling Catheter Indwelling Catheter Bowel Movement Yes No # Bowel Movements 1 Body Mass Index (BMI) 38.9 Weight Measurement Method Built in [facility] Built in [facility] Gen: intubated, deeply Heart: tachycardic, regular Lung: bilateral rhonchi Abd: softly distended, nontender, +hematoma Ext: + edema Neuro: sluggish bilat at 4mm, weak cough to deep suction Active Medications Acetaminophen (Tylenol -) 650 mg PO Q6H PRN PRN Reason: PAIN LEVEL 6-10 Last Admin: 06/13/18 01:30 Dose: 650 mg Albuterol Sulfate (Ventolin 0.083% Nebulizer Soln -) 1 amp NEB Q2H PRN PRN Reason: SHORT OF BREATH/WHEEZING Last Admin: 06/22/18 03:45 Dose: 1 amp Albuterol/Ipratropium (Duoneb -) 1 amp NEB Q4HPO [facility] Last Admin: 06/25/18 06:30 Dose: 1 amp Bacitracin (Bacitracin -) 1 applic TP DAILY [facility] Last Admin: 06/24/18 10:12 Dose: 1 applic Calcium Acetate (Phoslo -) 1,334 mg PO TIDCM [facility] Last Admin: 06/24/18 17:25 Dose: 1,334 mg Chlorhexidine Gluconate (Hibiclens For Decolonization -) 1 applic TP HS [facility] Last Admin: 06/24/18 21:25 Dose: 1 applic Ergocalciferol (Drisdol -) 50,000 unit PO Q7D@1000 [facility] Last Admin: 06/15/18 10:59 Dose: Not Given Ferrous Sulfate (Feosol) 300 mg GT DAILY [facility] Last Admin: 06/24/18 10:15 Dose: 300 mg Fludrocortisone Acetate (Florinef -) 0.05 mg GT DAILY [facility] Last Admin: 06/24/18 10:46 Dose: 0.05 mg Folic Acid (Folic Acid -) 1 mg PO DAILY [facility] Last Admin: 06/24/18 10:13 Dose: 1 mg Hydrocortisone Sodium Succinate (Solu-Cortef -) 100 mg IVPUSH Q8H-IV [facility] Last Admin: 06/25/18 01:30 Dose: 100 mg Minocycline HCl 100 mg/ (Dextrose) 100 mls @ 100 mls/hr IVPB Q12H [facility] Last Admin: 06/25/18 03:30 Dose: 100 mls/hr Vasopressin 50 units/ Sodium (Chloride) 100 mls @ 4 mls/hr IVPB ASDIR [facility]; Protocol Last Titration: 06/25/18 06:58 Dose: 4 units/hr, 8 mls/hr Famotidine/Sodium Chloride (Pepcid 20 Mg Premixed Ivpb -) 20 mg in 50 mls @ 100 mls/hr IVPB BID [facility] Last Admin: 06/24/18 21:26 Dose: 100 mls/hr Fentanyl 500 mcg/ Dextrose 100 mls @ 15 mls/hr IVPB TITR [facility]ACH[facility]; Protocol Last Titration: 06/25/18 04:00 Dose: 75 mcg/hr, 15 mls/hr Azithromycin (Zithromax 500mg Ivpb (Pre-Docked)) 500 mg in 250 mls @ 250 mls/ hr IVPB DAILY [facility] Last Admin: 06/24/18 10:10 Dose: 250 mls/hr Norepinephrine Bitartrate 8, (000 mcg/ Sodium Chloride) 508 mls @ 83.82 mls/hr IV ASDIR [facility]ACHARY; Protocol Last Titration: 06/24/18 22:30 Dose: 15 mcg/min, 57.15 mls/hr Propofol (Diprivan -) 1,000,000 mcg in 100 mls @ 5.334 mls/hr IVPB TITR [facility]ACH[facility]; Protocol Last Titration: 06/25/18 00:00 Dose: 36 mcg/kg/min, 19.203 mls/hr Caspofungin 50 mg/ Sodium (Chloride) 250 mls @ 250 mls/hr IVPB Q24H [facility] Last Admin: 06/24/18 12:29 Dose: 250 mls/hr Montelukast Sodium (Singulair -) 10 mg PO HS [facility] Last Admin: 06/24/18 21:26 Dose: 10 mg Polyethylene Glycol (Miralax (For Daily Use) -) 17 gm PO DAILY PRN PRN Reason: CONSTIPATION Roflumilast (Daliresp -) 500 mcg PO DAILY [facility] Last Admin: 06/24/18 10:12 Dose: 500 mcg Scopolamine HBr (Transderm-Scop -) 1 patch TD Q72H [facility] Last Admin: 06/24/18 10:15 Dose: 1 patch CBCD WBC 1.7 K/mm3 (4.0-10.0) L* 06/25/18 05:30 RBC 3.00 M/mm3 (3.60-5.2) L 06/25/18 05:30 Hgb 8.3 GM/dL (10.7-15.3) L 06/25/18 05:30 Hct 22.9 % (32.4-45.2) L 06/25/18 05:30 MCV 76.3 fl (80-96) L 06/25/18 05:30 MCHC 36.4 g/dl (32.0-36.0) H 06/25/18 05:30 RDW 21.3 % (11.6-15.6) H 06/25/18 05:30 Plt Count 125 K/MM3 (134-434) L D 06/25/18 05:30 MPV 7.6 fl (7.5-11.1) D 06/25/18 05:30 CMP Sodium 130 mmol/L (136-145) L 06/25/18 05:30 Potassium 3.6 mmol/L (3.5-5.1) 06/25/18 05:30 Chloride 91 mmol/L (98-107) L 06/25/18 05:30 Carbon Dioxide 29 mmol/L (21-32) 06/25/18 05:30 Anion Gap 10 MMOL/L (8-16) 06/25/18 05:30 BUN 83 mg/dL (7-18) H 06/25/18 05:30 Creatinine 2.1 mg/dL (0.55-1.3) H 06/25/18 05:30 Creat Clearance w eGFR 24.11 (>60) 06/25/18 05:30 Calcium 7.6 mg/dL (8.5-10.1) L 06/25/18 05:30 Total Bilirubin 3.3 mg/dL (0.2-1) H 06/25/18 05:30 AST 144 U/L (15-37) H 06/25/18 05:30 ALT 118 U/L (13-61) H 06/25/18 05:30 Alkaline Phosphatase 73 U/L (45-117) 06/25/18 05:30 Total Protein 3.2 g/dl (6.4-8.2) L 06/25/18 05:30 Albumin 1.3 g/dl (3.4-5.0) L 06/25/18 05:30 Microbiology 06/21/18 20:50 Blood - Shiley Catheter Blood Culture - Final Yeast Like Organism 06/21/18 20:50 Blood - Shiley Catheter Blood Culture - Final Yeast Like Organism 06/11/18 17:49 Sputum - Expectorated Gram Stain - Final 06/11/18 17:49 Sputum - Expectorated Sputum Culture - Final Acinetobacter Baumannii/Haemol 06/15/18 09:30 Blood - Peripheral Venous Blood Culture - Final NO GROWTH AFTER 5 DAYS INCUBATION 06/15/18 09:32 Blood - Peripheral Venous Blood Culture - Final NO GROWTH AFTER 5 DAYS INCUBATION 06/15/18 04:00 Sputum - Endotrachea Suction/Ventilator Gram Stain - Final 06/15/18 04:00 Sputum - Endotrachea Suction/Ventilator Sputum Culture - Final Acinetobacter Baumannii/Haemol 06/10/18 18:00 Blood - Peripheral Venous Blood Culture - Final NO GROWTH AFTER 5 DAYS INCUBATION 06/10/18 17:00 Blood - Peripheral Venous Blood Culture - Final NO GROWTH AFTER 5 DAYS INCUBATION 06/12/18 15:00 Stool Clostridium difficile Antigen (BENITO) - Final 06/12/18 15:00 Stool Clostridium difficile Toxin Assay - Final 05/27/18 17:42 Blood - Peripheral Venous Blood Culture - Final NO GROWTH AFTER 5 DAYS INCUBATION 05/27/18 17:42 Blood - Peripheral Venous Blood Culture - Final NO GROWTH AFTER 5 DAYS INCUBATION ASSESSMENT AND PLAN: Progressive MOF Acute on Chronic Hypoxic and Hypercapneic Respiratory Failure Pneumonia Fungemia Septic Shock Acute Kidney Injury Acute COPD/Bronchiectasis Exacerbation ARDS HTN - continue antibiotics, antifungals per ID - transfuse platelets as needed - IVF to keep CVP 8-12 - titrate pressors to maintain MAP >65 - monitor urine output, creatinine - HD per renal - inhaled bronchodilators standing and PRN - continue stress dose steroids - monitor Ppeak, Pplat - low tidal volume ventilation 6cc/kg/IBW - keep Pplat <30 - taper Fio2 to keep Spo2 >90% - monitor ABG - enteral feeds as tolerated - DVT/GI prophylaxis - continue ICU monitoring - DNR, will cont to disucss, reasonable for palliative extubation given MSOF
[2018-06-25] MEDS ORDERED: VASOPRESSIN 20 UNITS/ML VIAL IV ONE ×2 (09:29→21:40)
[2018-06-25] MEDS: AZITHROMYCIN IVPB 500 MG/250 ML BAG IVPB SCH (09:42)
[2018-06-25] MEDS: FOLIC ACID 1 MG TABLET (FP) PO SCH (09:48)
[2018-06-25] MEDS: FAMOTIDINE 20 MG/50 ML IVPB 20 MG/50 ML MG IVPB SCH ×2 (09:48→21:47)
[2018-06-25] MEDS: BACITRACIN 15 GM TUBE TOPICAL OINTMENT TP SCH (09:48)
[2018-06-25] MEDS: FERROUS SO4 300 MG/5 ML ORAL SOLN UNIT DOSE CUPS GT SCH (09:48)
[2018-06-25] MEDS: CALCIUM ACETATE 667 MG CAPSULE (FP) PO SCH ×3 (09:48→21:46)
[2018-06-25 12:23] LABS: PLATELET ESTIMATE ADEQUATE
[2018-06-25] MEDS: FENTANYL INJECTION 500 MCG in DEXTROSE 5%-WATER - 90 ML IVPB SCH (12:56)
[2018-06-25] MEDS: CASPOFUNGIN ACETATE 50 MG in SODIUM CHLORIDE 250 ML IVPB SCH (12:56)
[2018-06-25] MEDS ORDERED: PT OWN MED DRAWER 7, Y5N ONE (12:59)
[2018-06-25] MEDS: FLUDROCORTISONE ACETATE 0.1 MG TABLET (FP) GT SCH ×2 (13:01→13:02)
[2018-06-25] MEDS: ROFLUMILAST 500 MCG TABLET PO SCH (13:01)
--- NOTE | 2018-06-25 13:35 | PN ---
Progress Note, Physician History of Present Illness: Pt seen and examined at bedside. She remains in the ICU. She remains intubated. Family are at bedside. - Current Medication List Current Medications: Active Medications Acetaminophen (Tylenol -) 650 mg PO Q6H PRN PRN Reason: PAIN LEVEL 6-10 Last Admin: 06/13/18 01:30 Dose: 650 mg Albuterol Sulfate (Ventolin 0.083% Nebulizer Soln -) 1 amp NEB Q2H PRN PRN Reason: SHORT OF BREATH/WHEEZING Last Admin: 06/22/18 03:45 Dose: 1 amp Albuterol/Ipratropium (Duoneb -) 1 amp NEB Q4HPO [facility] Last Admin: 06/25/18 10:19 Dose: 1 amp Bacitracin (Bacitracin -) 1 applic TP DAILY [facility] Last Admin: 06/25/18 09:48 Dose: 1 applic Calcium Acetate (Phoslo -) 1,334 mg PO TIDCM [facility] Last Admin: 06/25/18 13:00 Dose: 1,334 mg Chlorhexidine Gluconate (Hibiclens For Decolonization -) 1 applic TP HS [facility] Last Admin: 06/24/18 21:25 Dose: 1 applic Ergocalciferol (Drisdol -) 50,000 unit PO Q7D@1000 [facility] Last Admin: 06/15/18 10:59 Dose: Not Given Ferrous Sulfate (Feosol) 300 mg GT DAILY [facility] Last Admin: 06/25/18 09:48 Dose: 300 mg Fludrocortisone Acetate (Florinef -) 0.05 mg GT DAILY [facility] Last Admin: 06/25/18 13:02 Dose: 0.05 mg Folic Acid (Folic Acid -) 1 mg PO DAILY [facility] Last Admin: 06/25/18 09:48 Dose: 1 mg Hydrocortisone Sodium Succinate (Solu-Cortef -) 100 mg IVPUSH Q8H-IV [facility] Last Admin: 06/25/18 09:42 Dose: 100 mg Minocycline HCl 100 mg/ (Dextrose) 100 mls @ 100 mls/hr IVPB Q12H [facility] Last Admin: 06/25/18 03:30 Dose: 100 mls/hr Vasopressin 50 units/ Sodium (Chloride) 100 mls @ 4 mls/hr IVPB ASDIR [facility]; Protocol Last Titration: 06/25/18 06:58 Dose: 4 units/hr, 8 mls/hr Famotidine/Sodium Chloride (Pepcid 20 Mg Premixed Ivpb -) 20 mg in 50 mls @ 100 mls/hr IVPB BID [facility] Last Admin: 06/25/18 09:48 Dose: 100 mls/hr Fentanyl 500 mcg/ Dextrose 100 mls @ 15 mls/hr IVPB TITR [facility]; Protocol Last Admin: 06/25/18 12:56 Dose: 75 mcg/hr, 15 mls/hr Azithromycin (Zithromax 500mg Ivpb (Pre-Docked)) 500 mg in 250 mls @ 250 mls/ hr IVPB DAILY [facility] Last Admin: 06/25/18 09:42 Dose: 250 mls/hr Norepinephrine Bitartrate 8, (000 mcg/ Sodium Chloride) 508 mls @ 83.82 mls/hr IV ASDIR [facility]; Protocol Last Titration: 06/24/18 22:30 Dose: 15 mcg/min, 57.15 mls/hr Propofol (Diprivan -) 1,000,000 mcg in 100 mls @ 5.334 mls/hr IVPB TITR [facility]; Protocol Last Titration: 06/25/18 00:00 Dose: 36 mcg/kg/min, 19.203 mls/hr Caspofungin 50 mg/ Sodium (Chloride) 250 mls @ 250 mls/hr IVPB Q24H [facility] Last Admin: 06/25/18 12:56 Dose: 250 mls/hr Montelukast Sodium (Singulair -) 10 mg PO HS [facility] Last Admin: 06/24/18 21:26 Dose: 10 mg Polyethylene Glycol (Miralax (For Daily Use) -) 17 gm PO DAILY PRN PRN Reason: CONSTIPATION Roflumilast (Daliresp -) 500 mcg PO DAILY [facility] Last Admin: 06/25/18 13:01 Dose: 500 mcg Scopolamine HBr (Transderm-Scop -) 1 patch TD Q72H [facility] Last Admin: 06/24/18 10:15 Dose: 1 patch - Objective Vital Signs: Vital Signs Temperature 97.3 F L 06/25/18 10:00 Pulse Rate 94 H 06/25/18 12:00 Respiratory Rate 22 H 06/25/18 12:00 Blood Pressure 117/74 06/25/18 12:00 O2 Sat by Pulse Oximetry (%) 97 06/25/18 08:42 Constitutional: Yes: Calm Eyes: Yes: Conjunctiva Clear Cardiovascular: Yes: S1, S2 Respiratory: Yes: Mechanically Ventilated Gastrointestinal: Yes: Soft, Distention Genitourinary: Yes: Ramírez Present Musculoskeletal: Yes: Muscle Weakness Edema: Yes Edema: LUE: 2+, RUE: 2+, LLE: 2+, RLE: 2+ Neurological: Yes: Lethargy Labs: CBC, BMP 06/25/18 05:30 06/25/18 05:30 INR, PTT INR 1.12 (0.83-1.09) H 06/25/18 05:30 Fibrinogen 195.0 mg/dL (238-498) L 06/25/18 05:30 - ....Imaging Chest X-ray: Report Reviewed Problem List - Problems (1) RAOUL (acute kidney injury) Code(s): N17.9 - ACUTE KIDNEY FAILURE, UNSPECIFIED (2) CKD (chronic kidney disease) Code(s): N18.9 - CHRONIC KIDNEY DISEASE, UNSPECIFIED (3) COPD exacerbation Code(s): J44.1 - CHRONIC OBSTRUCTIVE PULMONARY DISEASE W (ACUTE) EXACERBATION (4) Hospital acquired PNA Code(s): J18.9 - PNEUMONIA, UNSPECIFIED ORGANISM (5) Sepsis Code(s): A41.9 - SEPSIS, UNSPECIFIED ORGANISM (6) COPD (chronic obstructive pulmonary disease) with acute bronchitis Code(s): J44.0 - CHRONIC OBSTRUCTIVE PULMON DISEASE W ACUTE LOWER RESP INFCT Assessment/Plan Current Medications Generic Name Dose Route Start Last Admin Trade Name Freq PRN Reason Stop Dose Admin Acetaminophen 650 mg 06/12/18 17:35 06/13/18 01:30 Tylenol - PO 650 mg Q6H PRN Administration PAIN LEVEL 6-10 Albuterol Sulfate 1 amp 06/21/18 08:25 06/22/18 03:45 Ventolin 0.083% Nebulizer Soln - NEB 1 amp Q2H PRN Administration SHORT OF BREATH/WHEEZING Albuterol/Ipratropium 1 amp 06/16/18 14:00 06/25/18 10:19 Duoneb - NEB 1 amp Q4HPO [facility] Administration Bacitracin 1 applic 06/20/18 10:00 06/25/18 09:48 Bacitracin - TP 1 applic DAILY [facility] Administration Calcium Acetate 1,334 mg 06/21/18 08:21 06/25/18 13:00 Phoslo - PO 1,334 mg TIDCM [facility] Administration Chlorhexidine Gluconate 1 applic 06/12/18 22:00 06/24/18 21:25 Hibiclens For Decolonization - TP 1 applic HS [facility] Administration Ergocalciferol 50,000 unit 06/15/18 10:00 06/15/18 10:59 Drisdol - PO Not Given Q7D@1000 [facility] Ferrous Sulfate 300 mg 06/16/18 10:00 06/25/18 09:48 Feosol GT 300 mg DAILY [facility] Administration Fludrocortisone Acetate 0.05 mg 06/21/18 10:00 06/25/18 13:02 Florinef - GT 0.05 mg DAILY [facility] Administration Folic Acid 1 mg 06/13/18 10:00 06/25/18 09:48 Folic Acid - PO 1 mg DAILY [facility] Administration Hydrocortisone Sodium Succinate 100 mg 06/21/18 18:00 06/25/18 09:42 Solu-Cortef - IVPUSH 100 mg Q8H-IV [facility] Administration Minocycline HCl 100 mg/ 100 mls @ 100 mls/hr 06/17/18 15:00 06/25/18 03:30 Dextrose IVPB 100 mls/hr Q12H [facility] Administration Vasopressin 50 units/ Sodium 100 mls @ 4 mls/hr 06/18/18 17:25 06/25/18 06:58 Chloride IVPB 4 units/hr ASDIR [facility] 8 mls/hr Titration Protocol 2 UNITS/HR Famotidine/Sodium Chloride 20 mg in 50 mls @ 100 mls/hr 06/21/18 10:30 09:48 Pepcid 20 Mg Premixed Ivpb - IVPB 100 mls/hr BID [facility] Administration Fentanyl 500 mcg/ Dextrose 100 mls @ 15 mls/hr 06/22/18 11:45 06/25/18 12:56 IVPB 75 mcg/hr TITR [facility] 15 mls/hr Administration Protocol 75 MCG/HR Azithromycin 500 mg in 250 mls @ 250 mls/hr 06/22/18 11:30 06/25/18 09:42 Zithromax 500mg Ivpb (Pre-Docked) IVPB 250 mls/hr DAILY [facility] Administration Norepinephrine Bitartrate 8, 508 mls @ 83.82 mls/hr 06/22/18 15:28 06/24/18 22:30 000 mcg/ Sodium Chloride IV 15 mcg/min ASDIR [facility] 57.15 mls/hr Titration Protocol 22 MCG/MIN Propofol 1,000,000 mcg in 100 mls @ 5.334 mls/hr 06/22/18 16:15 06/25/18 00: 00 Diprivan - IVPB 36 mcg/kg/min TITR [facility] 19.203 mls/hr Titration Protocol 10 MCG/KG/MIN Caspofungin 50 mg/ Sodium 250 mls @ 250 mls/hr 06/24/18 11:30 06/25/18 12:56 Chloride IVPB 250 mls/hr Q24H [facility] Administration Montelukast Sodium 10 mg 06/12/18 22:00 06/24/18 21:26 Singulair - PO 10 mg HS [facility] Administration Polyethylene Glycol 17 gm 06/12/18 17:35 Miralax (For Daily Use) - PO DAILY PRN CONSTIPATION Roflumilast 500 mcg 06/13/18 10:00 06/25/18 13:01 Daliresp - PO 500 mcg DAILY [facility] Administration Scopolamine HBr 1 patch 06/18/18 10:30 06/24/18 10:15 Transderm-Scop - TD 1 patch Q72H [facility] Administration Impression 1. RAOUL 2. CKD 3. respiratory failure requiring intubation 4. sepsis 5. multi drug resistant Acinetobacter 6. copd exacerbation 7. anemia 8. hyperkalemia 9. thrombocytopenia Plan - cont to monitor renal function - will hold off HD today as creatinine is stable and pt is making urine - discussed with ICU, consider giving a dose of lasix to help with volume - pressors to maintain a map of 65 - discussed with family again at great length - prognosis is poor - vent support - daily cxr - RAOUL is likely multifactorial - discussed with ICU team - prognosis guarded Dr Marquez
[2018-06-25] MEDS: NOREPINEPHRINE BITARTRATE IV SCH (15:51)
[2018-06-25] MEDS: SODIUM CHLORIDE 0.45% IV SCH (15:51)
[2018-06-25] MEDS ORDERED: NOREPINEPHRINE BITARTRATE 4 MG/4 ML ML IV ONE (21:40)
[2018-06-25] MEDS: CHLORHEXIDINE GLUCONATE 4% CLEANSER FOR DECOLONIZATION TP SCH (21:46)
[2018-06-25] MEDS: PROPOFOL 1,000,000 MCG/100 ML VIAL IVPB SCH (21:46)
[2018-06-25] MEDS: MONTELUKAST NA 10 MG TABLET PO SCH (21:47)
[2018-06-26] MEDS ORDERED: PT OWN MED DRAWER 7, Y5N ONE ×2 (01:22→16:59)
[2018-06-26] MEDS: MINOCYCLINE HCL IVPB SCH ×2 (02:33→16:00)
[2018-06-26] MEDS: WATER IVPB SCH ×2 (02:33→16:00)
[2018-06-26] MEDS: DEXTROSE 5% IVPB SCH ×2 (02:33→16:00)
[2018-06-26] MEDS: HYDROCORTISONE SOD SUCCINATE 100 MG/2 ML VIAL IVPUSH SCH ×3 (02:33→18:26)
[2018-06-26] MEDS: ALBUTEROL SO4 2.5/IPRATROPIUM 0.5 INH SOL 3 ML VIAL.NEB. NEB SCH ×5 (03:00→17:09)
[2018-06-26] MEDS ORDERED: VASOPRESSIN 20 UNITS/ML VIAL IV ONE (05:13)
[2018-06-26] MEDS ORDERED: fentaNYL CITRATE 250 MCG/5 ML VIAL ONE ×2 (05:13→15:39)
[2018-06-26 06:02] LABS: HEMATOCRIT 28.6 % (32.4-45.2); HEMOGLOBIN 9.9 GM/dL (10.7-15.3); MCH 26.5 pg (25.7-33.7); MCHC 34.6 g/dl (32.0-36.0); MEAN CELL VOLUME 76.7 fl (80-96); MEAN PLT VOLUME 8.8 fl (7.5-11.1); RBC 3.72 M/mm3 (3.60-5.2)
[2018-06-26 06:15] LABS: WHITE BLOOD COUNT 1.2 K/mm3 (4.0-10.0)
[2018-06-26 06:16] LABS: PLATELET COUNT 25 K/MM3 (134-434)
[2018-06-26] MEDS ORDERED: FUROSEMIDE 40 MG/4 ML INJECTABLE VIAL IVPUSH ONE (06:36)
--- NOTE | 2018-06-26 06:46 | PN ---
Progress Note (short form) - Note Progress Note: PULM.CCM SUBJECTIVE: Patient seen and examined in the ICU. 24HR: -no HD yesterday, making some urine and no acute indications -further conversations with family, unresolved -remains in profound shock with progressive thrombo/leukopenia Vital Signs Temp 97.3 F L 06/26/18 06:00 Pulse 110 H 06/26/18 06:06 Resp 28 H 06/26/18 06:00 BP 100/64 06/26/18 06:04 Pulse Ox 93 L 06/25/18 21:31 Intake & Output 06/25/18 06/25/18 06/26/18 11:59 23:59 11:59 Intake Total 1180 2502 Output Total 200 150 Balance 980 2352 Weight 97.097 kg 99.155 kg Intake: IV 840 1252 DIPRIVAN - 1,000,000 mcg 228 348 In 100 ml @ 10 MCG/KG/MIN 5.334 mls/hr IVPB TITR [facility] Rx#:[id number] Levophed - 8,000 Mcg In 1 336 414 /2 Normal Saline 500 ml @ 22 MCG/MIN 83.82 mls/hr IV ASDIR [facility] Rx#: [id number] Pitressin - 50 Units In 96 96 Normal Saline - 97.5 ml @ 2 UNITS/HR 4 mls/hr IVPB ASDIR [facility] Rx#: [id number] Sublimaze Injection - 500 180 394 Mcg In D5w - 90 ml @ 75 MCG/HR 15 mls/hr IVPB TITR [facility] Rx#:[id number] IVPB 100 1250 Tube Feeding 240 Output: Urine 200 150 Ramírez 200 150 Other: Voiding Method Indwelling Catheter Indwelling Catheter Weight Measurement Method Built in [facility] Gen: intubated, deeply sedated Heart: tachycardic, regular Lung: bilateral rhonchi Abd: softly distended, hypoactive BS Ext: + edema, anasarca Neuro: sluggish bilat at 4mm, weak cough to deep suction Active Medications Acetaminophen (Tylenol -) 650 mg PO Q6H PRN PRN Reason: PAIN LEVEL 6-10 Last Admin: 06/13/18 01:30 Dose: 650 mg Albuterol Sulfate (Ventolin 0.083% Nebulizer Soln -) 1 amp NEB Q2H PRN PRN Reason: SHORT OF BREATH/WHEEZING Last Admin: 10/03/18 03:45 Dose: 1 amp Albuterol/Ipratropium (Duoneb -) 1 amp NEB Q4HPO [facility] Last Admin: 06/26/18 06:09 Dose: 1 amp Bacitracin (Bacitracin -) 1 applic TP DAILY [facility] Last Admin: 06/25/18 09:48 Dose: 1 applic Calcium Acetate (Phoslo -) 1,334 mg PO TIDCM [facility] Last Admin: 06/25/18 21:46 Dose: Not Given Chlorhexidine Gluconate (Hibiclens For Decolonization -) 1 applic TP HS [facility] Last Admin: 06/25/18 21:46 Dose: 1 applic Ergocalciferol (Drisdol -) 50,000 unit PO Q7D@1000 [facility] Last Admin: 06/15/18 10:59 Dose: Not Given Ferrous Sulfate (Feosol) 300 mg GT DAILY [facility] Last Admin: 06/25/18 09:48 Dose: 300 mg Fludrocortisone Acetate (Florinef -) 0.05 mg GT DAILY [facility] Last Admin: 06/25/18 13:02 Dose: 0.05 mg Folic Acid (Folic Acid -) 1 mg PO DAILY [facility] Last Admin: 06/25/18 09:48 Dose: 1 mg Furosemide (Lasix Injection -) 80 mg IVPUSH ONCE ONE Stop: 06/26/18 06:37 Hydrocortisone Sodium Succinate (Solu-Cortef -) 100 mg IVPUSH Q8H-IV [facility] Last Admin: 06/26/18 02:33 Dose: 100 mg Minocycline HCl 100 mg/ (Dextrose) 100 mls @ 100 mls/hr IVPB Q12H [facility] Last Admin: 06/26/18 02:33 Dose: 100 mls/hr Vasopressin 50 units/ Sodium (Chloride) 100 mls @ 4 mls/hr IVPB ASDIR [facility]; Protocol Last Titration: 06/26/18 02:33 Dose: 6 units/hr, 12 mls/hr Famotidine/Sodium Chloride (Pepcid 20 Mg Premixed Ivpb -) 20 mg in 50 mls @ 100 mls/hr IVPB BID [facility] Last Admin: 06/25/18 21:47 Dose: 100 mls/hr Fentanyl 500 mcg/ Dextrose 100 mls @ 15 mls/hr IVPB TITR [facility]; Protocol Last Titration: 06/26/18 06:04 Dose: 50 mcg/hr, 10 mls/hr Azithromycin (Zithromax 500mg Ivpb (Pre-Docked)) 500 mg in 250 mls @ 250 mls/ hr IVPB DAILY [facility] Last Admin: 06/25/18 09:42 Dose: 250 mls/hr Norepinephrine Bitartrate 8, (000 mcg/ Sodium Chloride) 508 mls @ 83.82 mls/hr IV ASDIR [facility]; Protocol Last Titration: 06/26/18 06:06 Dose: 20 mcg/min, 76.2 mls/hr Propofol (Diprivan -) 1,000,000 mcg in 100 mls @ 5.334 mls/hr IVPB TITR [facility]; Protocol Last Titration: 06/26/18 06:07 Dose: 5 mcg/kg/min, 2.667 mls/hr Caspofungin 50 mg/ Sodium (Chloride) 250 mls @ 250 mls/hr IVPB Q24H [facility] Last Admin: 06/25/18 12:56 Dose: 250 mls/hr Montelukast Sodium (Singulair -) 10 mg PO HS [facility] Last Admin: 06/25/18 21:47 Dose: 10 mg Polyethylene Glycol (Miralax (For Daily Use) -) 17 gm PO DAILY PRN PRN Reason: CONSTIPATION Roflumilast (Daliresp -) 500 mcg PO DAILY [facility] Last Admin: 06/25/18 13:01 Dose: 500 mcg Scopolamine HBr (Transderm-Scop -) 1 patch TD Q72H [facility] Last Admin: 06/24/18 10:15 Dose: 1 patch CBCD WBC 1.2 K/mm3 (4.0-10.0) L* 06/26/18 05:30 RBC 3.72 M/mm3 (3.60-5.2) 06/26/18 05:30 Hgb 9.9 GM/dL (10.7-15.3) L 06/26/18 05:30 Hct 28.6 % (32.4-45.2) L D 06/26/18 05:30 MCV 76.7 fl (80-96) L 06/26/18 05:30 MCHC 34.6 g/dl (32.0-36.0) 06/26/18 05:30 RDW 22.0 % (11.6-15.6) H 06/26/18 05:30 Plt Count 25 K/MM3 (134-434) L* D 06/26/18 05:30 MPV 8.8 fl (7.5-11.1) D 06/26/18 05:30 BMP pending Microbiology 06/25/18 05:15 Blood - Peripheral Venous Blood Culture - Preliminary NO GROWTH OBTAINED AFTER 24 HOURS, INCUBATION TO CONTINUE FOR 4 DAYS. 06/25/18 05:30 Blood - Peripheral Venous Blood Culture - Preliminary NO GROWTH OBTAINED AFTER 24 HOURS, INCUBATION TO CONTINUE FOR 4 DAYS. 06/21/18 20:50 Blood - Shiley Catheter Yeast/Fungus Identification - Preliminary 06/23/18 18:00 Sputum - Endotrachea Suction/Ventilator Gram Stain - Final 06/23/18 18:00 Sputum - Endotrachea Suction/Ventilator Sputum Culture - Preliminary Non Lactose Fermenting Gnb 06/21/18 20:50 Blood - Shiley Catheter Blood Culture - Final Yeast Like Organism 06/21/18 20:50 Blood - Shiley Catheter Blood Culture - Final Yeast Like Organism 06/11/18 17:49 Sputum - Expectorated Gram Stain - Final 06/11/18 17:49 Sputum - Expectorated Sputum Culture - Final Acinetobacter Baumannii/Haemol 06/15/18 09:30 Blood - Peripheral Venous Blood Culture - Final NO GROWTH AFTER 5 DAYS INCUBATION 06/15/18 09:32 Blood - Peripheral Venous Blood Culture - Final NO GROWTH AFTER 5 DAYS INCUBATION 06/15/18 04:00 Sputum - Endotrachea Suction/Ventilator Gram Stain - Final 06/15/18 04:00 Sputum - Endotrachea Suction/Ventilator Sputum Culture - Final Acinetobacter Baumannii/Haemol 06/10/18 18:00 Blood - Peripheral Venous Blood Culture - Final NO GROWTH AFTER 5 DAYS INCUBATION 06/10/18 17:00 Blood - Peripheral Venous Blood Culture - Final NO GROWTH AFTER 5 DAYS INCUBATION 06/12/18 15:00 Stool Clostridium difficile Antigen (BENITO) - Final 06/12/18 15:00 Stool Clostridium difficile Toxin Assay - Final 05/27/18 17:42 Blood - Peripheral Venous Blood Culture - Final NO GROWTH AFTER 5 DAYS INCUBATION 05/27/18 17:42 Blood - Peripheral Venous Blood Culture - Final NO GROWTH AFTER 5 DAYS INCUBATION ASSESSMENT AND PLAN: Progressive MOF Acute on Chronic Hypoxic and Hypercapneic Respiratory Failure Pneumonia Fungemia Septic Shock Acute Kidney Injury Acute COPD/Bronchiectasis Exacerbation ARDS HTN - continue antibiotics and antifungals per ID - transfuse platelets as needed, < 10, or < 25 than if bleeding - IVF to keep CVP 8-12 - titrate pressors to maintain MAP >65 - monitor urine output, creatinine - HD per renal, attempting lasix - inhaled bronchodilators standing and PRN - continue stress dose steroids, taper as able given fungemia - monitor Ppeak, Pplat - low tidal volume ventilation 6cc/kg/IBW - keep Pplat <30 - taper Fio2 to keep Spo2 >90% - monitor ABG prn - enteral feeds as tolerated - DVT/GI prophylaxis - continue ICU monitoring - DNR, will cont to disucss, reasonable for palliative extubation given MSOF, fungemia Sotero Peck ACNP [id number]
[2018-06-26 07:27] LABS: ALBUMIN 1.1 g/dl (3.4-5.0); ALK PHOS 88 U/L (45-117); ANION GAP 14 MMOL/L (8-16); BILIRUBIN,TOTAL 3.8 mg/dL (0.2-1); BLOOD UREA NITROGEN 89 mg/dL (7-18); CALCIUM 7.7 mg/dL (8.5-10.1); CHLORIDE 89 mmol/L (98-107); CO2 27 mmol/L (21-32); CREATININE 2.3 mg/dL (0.55-1.3); GLUCOSE,RANDOM 58 mg/dL (74-106); MAGNESIUM 1.9 mg/dL (1.8-2.4); PHOSPHOROUS 7.8 mg/dL (2.5-4.9); SGOT/AST 167 U/L (15-37); SGPT/ALT 125 U/L (13-61); SODIUM 129 mmol/L (136-145)
--- NOTE | 2018-06-26 07:27 | PN ---
Teaching Attending Note Name of Resident: Mario Stauffer ATTENDING PHYSICIAN STATEMENT I saw and evaluated the patient. I reviewed the resident's note and discussed the case with the resident. I agree with the resident's findings and plan as documented. SUBJECTIVE:intubated/sedated OBJECTIVE: Last Vital Signs Temp Pulse Resp BP Pulse Ox 97.3 F L 110 H 28 H 100/64 93 L 06/26/18 06:00 06/26/18 06:06 06/26/18 06:54 06/26/18 06:04 06/25/18 21:31 Intake & Output 06/23/18 06/24/18 06/25/18 06/26/18 23:59 23:59 23:59 23:59 Intake Total 4192 2756 3682 1204 Output Total 900 650 350 Balance 3292 2106 3332 1204 Weight 203 lb 14.4 oz 206 lb 5.643 oz 214 lb 1 oz 218 lb 9.6 oz General intubated/sedated CV S1 S2 + Lungs course breath sounds. poor inspiration Abdomen soft Extremities 2+ pitting edema in all 4 extremities Neuro sluggish pupil response. no gag. ASSESSMENT AND PLAN: 58yo F with PMH HTN, COPD on home O2 (3L NC) and anemia presented with acute COPD exacerbation. Course was complicated by development of CHIKI PNA and was transferred to MICU on 06/12 and now worsened with ARDS with shock on 2 pressors 1. Acute on chronic hypoxic and hypercapnic respiratory distress-r/o ARDS. intubated. worsening congestion on CXR. lasix 80mg x1 given this morning. full vent support. not a candidate for titration for weaning. ICU team on board 2. Septic shock with multiorgan failure- due to MDR Acineobacter PNA and BCx now showing fungus. lines replaced. on caspofungin day 4. on minocycline and polymixin. on 2 pressor support, unable to titrate down. hydrocortisone 100mg Q8H, try to titrate down steroids. keisha. ID on board. Contact and droplet precautions 3. RAOUL- due to septic shock. s/p HD x3 sessions. UOP dropping. cont to assess need for HD daily. Nephro on board. 4. Transaminitis- due to septic shock 5. Panocytopenia- due to septic shock and ARDS. s/p 3 units PRBC and 6 units platelets this hospital stay. no signs of bleeding. HIT panel pending. heme on board 6. Hyperkalemia- resolved after HD 7 Respiratory acidosis- stable. cont to monitor. adjust vent as needed 8. Acute toxic/metabolic encephalopathy- due to septic shock. minimal brainstem reflexes. 9. DVT ppx- SCD. hold pharmacologic in setting of thrombocytopenia 10. DNR. poor overall prognosis. palliative care consulted The care of this patient involved high complexity decision making to prevent further life threatening deterioration of the patient's condition and/or to evaluate & treat vital organ system(s) failure or risk of failure. 36 minutes
--- NOTE | 2018-06-26 07:44 | PN ---
Physical Exam: SUBJECTIVE: Patient seen and examined. remains intubated and sedated. No change from yesterday. Urine output 50cc overnight. OBJECTIVE: Vital Signs Period Temp Pulse Resp BP Sys/Echevarria Pulse Ox Last 24 Hr 97.3 F-98 F 87-117 14-28 63-118/23-74 93-97 GENERAL: A&Ox0, intubated/sedated EYES: pupils dilated, minimally responsive ENT: Moist mucus membranes NECK: No JVD LUNGS: mechanical breath sounds HEART: generalized anasarca, ABDOMEN: Soft, nontender, BS absent, anasarca MUSCULOSKELETAL: No CVA Tenderness EXTREMITIES: 2+ pulses, 3+ edema b/l Laboratory Results - last 24 hr 06/25/18 06/25/18 06/26/18 05:30 05:30 05:30 WBC 1.2 L* RBC 3.72 Hgb 9.9 L Hct 28.6 L D MCV 76.7 L MCH 26.5 MCHC 34.6 RDW 22.0 H Plt Count 25 L* D MPV 8.8 D Total Counted 100 Neutrophils % (Manual) 65.0 Band Neutrophils % 5.0 Lymphocytes % (Manual) 15.0 D Monocytes % (Manual) 13 H D Eosinophils % (Manual) 1.0 D Metamyelocytes 1 Platelet Estimate Adequate PTT (Actin FS) 40.4 H Sodium Potassium Chloride Carbon Dioxide Anion Gap BUN Creatinine Creat Clearance w eGFR Random Glucose Calcium Phosphorus Magnesium Total Bilirubin AST ALT Alkaline Phosphatase Total Protein Albumin 06/26/18 05:30 WBC RBC Hgb Hct MCV MCH MCHC RDW Plt Count MPV Total Counted Neutrophils % (Manual) Band Neutrophils % Lymphocytes % (Manual) Monocytes % (Manual) Eosinophils % (Manual) Metamyelocytes Platelet Estimate PTT (Actin FS) Sodium 129 L Potassium 4.0 Chloride 89 L Carbon Dioxide 27 Anion Gap 14 BUN 89 H Creatinine 2.3 H Creat Clearance w eGFR 21.70 Random Glucose 58 L Calcium 7.7 L Phosphorus 7.8 H Magnesium 1.9 Total Bilirubin 3.8 H AST 167 H ALT 125 H Alkaline Phosphatase 88 Total Protein 3.0 L Albumin 1.1 L Active Medications Generic Name Dose Route Start Last Admin Trade Name Freq PRN Reason Stop Dose Admin Acetaminophen 650 mg 06/12/18 17:35 06/13/18 01:30 Tylenol - PO 650 mg Q6H PRN Administration PAIN LEVEL 6-10 Albuterol Sulfate 1 amp 06/21/18 08:25 06/22/18 03:45 Ventolin 0.083% Nebulizer Soln - NEB 1 amp Q2H PRN Administration SHORT OF BREATH/WHEEZING Albuterol/Ipratropium 1 amp 06/16/18 14:00 06/26/18 06:09 Duoneb - NEB 1 amp Q4HPO ZACHARY Administration Bacitracin 1 applic 06/20/18 10:00 06/25/18 09:48 Bacitracin - TP 1 applic DAILY ZACHARY Administration Calcium Acetate 1,334 mg 06/21/18 08:21 06/25/18 21:46 Phoslo - PO Not Given TIDCM ZACHARY Chlorhexidine Gluconate 1 applic 06/12/18 22:00 06/25/18 21:46 Hibiclens For Decolonization - TP 1 applic HS ZACHARY Administration Ergocalciferol 50,000 unit 06/15/18 10:00 06/15/18 10:59 Drisdol - PO Not Given Q7D@1000 ZACHARY Ferrous Sulfate 300 mg 06/16/18 10:00 06/25/18 09:48 Feosol GT 300 mg DAILY ZACHARY Administration Fludrocortisone Acetate 0.05 mg 06/21/18 10:00 06/25/18 13:02 Florinef - GT 0.05 mg DAILY ZACHARY Administration Folic Acid 1 mg 06/13/18 10:00 06/25/18 09:48 Folic Acid - PO 1 mg DAILY ZACHARY Administration Furosemide 80 mg 06/26/18 06:36 06/26/18 06:53 Lasix Injection - IVPUSH 06/26/18 06:37 80 mg ONCE ONE Administration Hydrocortisone Sodium Succinate 100 mg 06/21/18 18:00 06/26/18 02:33 Solu-Cortef - IVPUSH 100 mg Q8H-IV ZACHARY Administration Minocycline HCl 100 mg/ 100 mls @ 100 mls/hr 06/17/18 15:00 06/26/18 02:33 Dextrose IVPB 100 mls/hr Q12H ZACHARY Administration Vasopressin 50 units/ Sodium 100 mls @ 4 mls/hr 06/18/18 17:25 06/26/18 02:33 Chloride IVPB 6 units/hr ASDIR ZACHARY 12 mls/hr Titration Protocol 2 UNITS/HR Famotidine/Sodium Chloride 20 mg in 50 mls @ 100 mls/hr 06/21/18 10:30 21:47 Pepcid 20 Mg Premixed Ivpb - IVPB 100 mls/hr BID ZACHARY Administration Fentanyl 500 mcg/ Dextrose 100 mls @ 15 mls/hr 06/22/18 11:45 06/26/18 06:04 IVPB 50 mcg/hr TITR ZACHARY 10 mls/hr Titration Protocol 75 MCG/HR Azithromycin 500 mg in 250 mls @ 250 mls/hr 06/22/18 11:30 06/25/18 09:42 Zithromax 500mg Ivpb (Pre-Docked) IVPB 250 mls/hr DAILY ZACHARY Administration Norepinephrine Bitartrate 8, 508 mls @ 83.82 mls/hr 06/22/18 15:28 06/26/18 06:06 000 mcg/ Sodium Chloride IV 20 mcg/min ASDIR ZACHARY 76.2 mls/hr Titration Protocol 22 MCG/MIN Propofol 1,000,000 mcg in 100 mls @ 5.334 mls/hr 06/22/18 16:15 06/26/18 06: 07 Diprivan - IVPB 5 mcg/kg/min TITR ZACHARY 2.667 mls/hr Titration Protocol 10 MCG/KG/MIN Caspofungin 50 mg/ Sodium 250 mls @ 250 mls/hr 06/24/18 11:30 06/25/18 12:56 Chloride IVPB 250 mls/hr Q24H ZACHARY Administration Montelukast Sodium 10 mg 06/12/18 22:00 06/25/18 21:47 Singulair - PO 10 mg HS ZACHARY Administration Polyethylene Glycol 17 gm 06/12/18 17:35 Miralax (For Daily Use) - PO DAILY PRN CONSTIPATION Roflumilast 500 mcg 06/13/18 10:00 06/25/18 13:01 Daliresp - PO 500 mcg DAILY ZACHARY Administration Scopolamine HBr 1 patch 06/18/18 10:30 06/24/18 10:15 Transderm-Scop - TD 1 patch Q72H ZACHARY Administration ASSESSMENT/PLAN: Patient is a 58 year old female who presented with shortness of breath and found to be in COPD exacerbation, admitted to ICU #Multiorgan failure 2/2 Septic Shock: due to PNA/fungemia -not improving from previous examination -supported on norepi and vasopressin, titrate to MAP > 65 -sedated by fentanyl/propofol -Duonebs q4 standing -Dalires -cultures were positive for yeast -continue abx with caspofungin and azithromycin -ID consulted -nephro consulted -IVF -scopolamine for secretions -solumedrol -ICU monitoring #RAOUL on CKD: likely due to septic shock -Nephrology (Dr. Marquez) consulted. Recommendations appreciated. -received prior dialysis -Maintain daily and monitor Urine output #Pancytopenia: likely secondary to bone marrow failure due to septic shock -Hematology consulted -FFP thrombocytes drop -monitor CBC closely, transfusion threshhold 7 for PRBC, 20 for Plt -Anti-Plt Ab negative, immunologic studies negative #FEN -no standing fluids -diet held -tube feeds nepro #Prophylaxis -held lovenox due to platelet count #Disposition -continue monitoring from ICU -continue discussing with family about goals of care -DNR Visit type - Emergency Visit Emergency Visit: No - New Patient This patient is new to me today: No - Critical Care Critical Care patient: Yes Total Critical Care Time (in minutes): 35 Critical Care Statement: The care of this patient involved high complexity decision making to prevent further life threatening deterioration of the patient 's condition and/or to evaluate & treat vital organ system(s) failure or risk of failure.
[2018-06-26] MEDS: CALCIUM ACETATE 667 MG CAPSULE (FP) PO SCH ×3 (09:00→17:07)
--- NOTE | 2018-06-26 09:08 | PN ---
Progress Note (short form) - Note Progress Note: remains intubated and sedated on pressors intubated now DNR after family meeting doing poorly minimal urine ouput sedated Vital Signs Period Temp Pulse Resp BP Sys/Echevarria Pulse Ox Last 24 Hr 97.3 F-98 F 87-130 14-28 63-118/23-74 90-93 intubated cor-rrr lungs decreased bs at bases abd firm LLQ ecchymoses unchanged ext +edema +anasarca CBC, BMP 06/26/18 05:30 06/26/18 05:30 Microbiology 06/25/18 05:15 Blood - Peripheral Venous Blood Culture - Preliminary NO GROWTH OBTAINED AFTER 24 HOURS, INCUBATION TO CONTINUE FOR 4 DAYS. 06/25/18 05:30 Blood - Peripheral Venous Blood Culture - Preliminary NO GROWTH OBTAINED AFTER 24 HOURS, INCUBATION TO CONTINUE FOR 4 DAYS. 06/21/18 20:50 Blood - Shiley Catheter Yeast/Fungus Identification - Preliminary 06/23/18 18:00 Sputum - Endotrachea Suction/Ventilator Gram Stain - Final 06/23/18 18:00 Sputum - Endotrachea Suction/Ventilator Sputum Culture - Preliminary Non Lactose Fermenting Gnb 06/21/18 20:50 Blood - Shiley Catheter Blood Culture - Final Yeast Like Organism 06/21/18 20:50 Blood - Shiley Catheter Blood Culture - Final Yeast Like Organism 06/11/18 17:49 Sputum - Expectorated Gram Stain - Final 06/11/18 17:49 Sputum - Expectorated Sputum Culture - Final Acinetobacter Baumannii/Haemol 06/15/18 09:30 Blood - Peripheral Venous Blood Culture - Final NO GROWTH AFTER 5 DAYS INCUBATION 06/15/18 09:32 Blood - Peripheral Venous Blood Culture - Final NO GROWTH AFTER 5 DAYS INCUBATION 06/15/18 04:00 Sputum - Endotrachea Suction/Ventilator Gram Stain - Final 06/15/18 04:00 Sputum - Endotrachea Suction/Ventilator Sputum Culture - Final Acinetobacter Baumannii/Haemol 06/10/18 18:00 Blood - Peripheral Venous Blood Culture - Final NO GROWTH AFTER 5 DAYS INCUBATION 06/10/18 17:00 Blood - Peripheral Venous Blood Culture - Final NO GROWTH AFTER 5 DAYS INCUBATION 06/12/18 15:00 Stool Clostridium difficile Antigen (BENITO) - Final 06/12/18 15:00 Stool Clostridium difficile Toxin Assay - Final 05/27/18 17:42 Blood - Peripheral Venous Blood Culture - Final NO GROWTH AFTER 5 DAYS INCUBATION 05/27/18 17:42 Blood - Peripheral Venous Blood Culture - Final NO GROWTH AFTER 5 DAYS INCUBATION a/p doing poorly multiorgan failure fungemia HAP with MDR acinetobacter hypoxemic respiratory failure sepsis- increasing pressor requrements bone marrow suppression thrombocytopenia/leukopenia-suspect secondary to overwhelming sepsis giovanna -hd per renal bronchiectasis with poor lung function at baseline continue polymyxin/ minocycline/zithromax continue cancidas s/p line change blood cultures repeated taper steroids if possible overall prognosis is grim Problem List - Problems (1) Sepsis Code(s): A41.9 - SEPSIS, UNSPECIFIED ORGANISM (2) Acute on chronic respiratory failure with hypoxia and hypercapnia Code(s): J96.21 - ACUTE AND CHRONIC RESPIRATORY FAILURE WITH HYPOXIA; J96.22 - ACUTE AND CHRONIC RESPIRATORY FAILURE WITH HYPERCAPNIA (3) Hospital acquired PNA Code(s): J18.9 - PNEUMONIA, UNSPECIFIED ORGANISM
[2018-06-26] MEDS: AZITHROMYCIN IVPB 500 MG/250 ML BAG IVPB SCH (10:28)
[2018-06-26] MEDS ORDERED: NOREPINEPHRINE BITARTRATE 4 MG/4 ML ML IV ONE (10:32)
[2018-06-26] MEDS ORDERED: PROPOFOL 1,000,000 MCG/100 ML VIAL ONE (11:40)
[2018-06-26] MEDS: CASPOFUNGIN ACETATE 50 MG in SODIUM CHLORIDE 250 ML IVPB SCH (11:44)
[2018-06-26] MEDS: FAMOTIDINE 20 MG/50 ML IVPB 20 MG/50 ML MG IVPB SCH (11:59)
[2018-06-26] MEDS: FERROUS SO4 300 MG/5 ML ORAL SOLN UNIT DOSE CUPS GT SCH (12:00)
[2018-06-26] MEDS: FOLIC ACID 1 MG TABLET (FP) PO SCH (12:32)
[2018-06-26] MEDS: FLUDROCORTISONE ACETATE 0.1 MG TABLET (FP) GT SCH (12:33)
[2018-06-26] MEDS: ROFLUMILAST 500 MCG TABLET PO SCH (12:33)
[2018-06-26] MEDS: BACITRACIN 15 GM TUBE TOPICAL OINTMENT TP SCH (12:33)
--- NOTE | 2018-06-26 16:07 | PN ---
Progress Note, Physician History of Present Illness: Pt seen and examined at bedside. She remains in the ICU. She remains intubated. She is maxed out on 3 pressors. Her family are at bedside and care was discussed with them. - Current Medication List Current Medications: Active Medications Acetaminophen (Tylenol -) 650 mg PO Q6H PRN PRN Reason: PAIN LEVEL 6-10 Last Admin: 06/13/18 01:30 Dose: 650 mg Albuterol Sulfate (Ventolin 0.083% Nebulizer Soln -) 1 amp NEB Q2H PRN PRN Reason: SHORT OF BREATH/WHEEZING Last Admin: 06/22/18 03:45 Dose: 1 amp Albuterol/Ipratropium (Duoneb -) 1 amp NEB Q4HPO ZACHARY Last Admin: 06/26/18 14:06 Dose: 1 amp Bacitracin (Bacitracin -) 1 applic TP DAILY [facility] Last Admin: 06/26/18 12:33 Dose: 1 applic Calcium Acetate (Phoslo -) 1,334 mg PO TIDCM [facility] Last Admin: 06/26/18 12:01 Dose: Not Given Chlorhexidine Gluconate (Hibiclens For Decolonization -) 1 applic TP HS [facility] Last Admin: 06/25/18 21:46 Dose: 1 applic Ergocalciferol (Drisdol -) 50,000 unit PO Q7D@1000 [facility] Last Admin: 06/15/18 10:59 Dose: Not Given Ferrous Sulfate (Feosol) 300 mg GT DAILY [facility] Last Admin: 06/26/18 12:00 Dose: 300 mg Fludrocortisone Acetate (Florinef -) 0.05 mg GT DAILY [facility] Last Admin: 06/26/18 12:33 Dose: 0.05 mg Folic Acid (Folic Acid -) 1 mg PO DAILY [facility] Last Admin: 06/26/18 12:32 Dose: Not Given Hydrocortisone Sodium Succinate (Solu-Cortef -) 100 mg IVPUSH Q8H-IV ZACHARY Last Admin: 06/26/18 11:59 Dose: 100 mg Minocycline HCl 100 mg/ (Dextrose) 100 mls @ 100 mls/hr IVPB Q12H ZACHARY Last Admin: 06/26/18 02:33 Dose: 100 mls/hr Vasopressin 50 units/ Sodium (Chloride) 100 mls @ 4 mls/hr IVPB ASDIR ZACHARY; Protocol Last Titration: 06/26/18 02:33 Dose: 6 units/hr, 12 mls/hr Famotidine/Sodium Chloride (Pepcid 20 Mg Premixed Ivpb -) 20 mg in 50 mls @ 100 mls/hr IVPB BID ZACHARY Last Admin: 06/26/18 11:59 Dose: 100 mls/hr Fentanyl 500 mcg/ Dextrose 100 mls @ 15 mls/hr IVPB TITR ZACHARY; Protocol Last Titration: 06/26/18 06:04 Dose: 50 mcg/hr, 10 mls/hr Azithromycin (Zithromax 500mg Ivpb (Pre-Docked)) 500 mg in 250 mls @ 250 mls/ hr IVPB DAILY ZACHARY Last Admin: 06/26/18 10:28 Dose: 250 mls/hr Norepinephrine Bitartrate 8, (000 mcg/ Sodium Chloride) 508 mls @ 83.82 mls/hr IV ASDIR ZACHARY; Protocol Last Titration: 06/26/18 07:00 Dose: 25 mcg/min, 95.25 mls/hr Propofol (Diprivan -) 1,000,000 mcg in 100 mls @ 5.334 mls/hr IVPB TITR ZACHARY; Protocol Last Titration: 06/26/18 06:07 Dose: 5 mcg/kg/min, 2.667 mls/hr Caspofungin 50 mg/ Sodium (Chloride) 250 mls @ 250 mls/hr IVPB Q24H ZACHARY Last Admin: 06/26/18 11:44 Dose: 250 mls/hr Montelukast Sodium (Singulair -) 10 mg PO HS ZACHARY Last Admin: 06/25/18 21:47 Dose: 10 mg Polyethylene Glycol (Miralax (For Daily Use) -) 17 gm PO DAILY PRN PRN Reason: CONSTIPATION Roflumilast (Daliresp -) 500 mcg PO DAILY ZACHARY Last Admin: 06/26/18 12:33 Dose: 500 mcg Scopolamine HBr (Transderm-Scop -) 1 patch TD Q72H ZACHARY Last Admin: 06/24/18 10:15 Dose: 1 patch - Objective Vital Signs: Vital Signs Temperature 97.3 F L 06/26/18 06:00 Pulse Rate 120 H 06/26/18 08:36 Respiratory Rate 28 H 06/26/18 14:05 Blood Pressure 84/57 L 06/26/18 08:00 O2 Sat by Pulse Oximetry (%) 90 L 06/26/18 08:36 Constitutional: Yes: Calm Eyes: Yes: Conjunctiva Clear HENT: Yes: Atraumatic Cardiovascular: Yes: S1, S2 Respiratory: Yes: Mechanically Ventilated Gastrointestinal: Yes: Distention Genitourinary: Yes: Ramírez Present Musculoskeletal: Yes: Muscle Weakness Edema: Yes Edema: LUE: 2+, RUE: 2+, LLE: 3+, RLE: 3+ Neurological: Yes: Lethargy Labs: CBC, BMP 06/26/18 05:30 06/26/18 05:30 INR, PTT INR 1.12 (0.83-1.09) H 06/25/18 05:30 Fibrinogen 195.0 mg/dL (238-498) L 06/25/18 05:30 - ....Imaging Chest X-ray: Report Reviewed Problem List - Problems (1) RAOUL (acute kidney injury) Code(s): N17.9 - ACUTE KIDNEY FAILURE, UNSPECIFIED (2) CKD (chronic kidney disease) Code(s): N18.9 - CHRONIC KIDNEY DISEASE, UNSPECIFIED (3) COPD exacerbation Code(s): J44.1 - CHRONIC OBSTRUCTIVE PULMONARY DISEASE W (ACUTE) EXACERBATION (4) Hospital acquired PNA Code(s): J18.9 - PNEUMONIA, UNSPECIFIED ORGANISM (5) Sepsis Code(s): A41.9 - SEPSIS, UNSPECIFIED ORGANISM (6) COPD (chronic obstructive pulmonary disease) with acute bronchitis Code(s): J44.0 - CHRONIC OBSTRUCTIVE PULMON DISEASE W ACUTE LOWER RESP INFCT Assessment/Plan Current Medications Generic Name Dose Route Start Last Admin Trade Name Freq PRN Reason Stop Dose Admin Acetaminophen 650 mg 06/12/18 17:35 06/13/18 01:30 Tylenol - PO 650 mg Q6H PRN Administration PAIN LEVEL 6-10 Albuterol Sulfate 1 amp 06/21/18 08:25 06/22/18 03:45 Ventolin 0.083% Nebulizer Soln - NEB 1 amp Q2H PRN Administration SHORT OF BREATH/WHEEZING Albuterol/Ipratropium 1 amp 06/16/18 14:00 06/26/18 14:06 Duoneb - NEB 1 amp Q4HPO ZACHARY Administration Bacitracin 1 applic 06/20/18 10:00 06/26/18 12:33 Bacitracin - TP 1 applic DAILY ZACHARY Administration Calcium Acetate 1,334 mg 06/21/18 08:21 06/26/18 12:01 Phoslo - PO Not Given TIDCM ZACHARY Chlorhexidine Gluconate 1 applic 06/12/18 22:00 06/25/18 21:46 Hibiclens For Decolonization - TP 1 applic HS ZACHARY Administration Ergocalciferol 50,000 unit 06/15/18 10:00 06/15/18 10:59 Drisdol - PO Not Given Q7D@1000 ZACHARY Ferrous Sulfate 300 mg 06/16/18 10:00 06/26/18 12:00 Feosol GT 300 mg DAILY ZACHARY Administration Fludrocortisone Acetate 0.05 mg 06/21/18 10:00 06/26/18 12:33 Florinef - GT 0.05 mg DAILY ZACHARY Administration Folic Acid 1 mg 06/13/18 10:00 06/26/18 12:32 Folic Acid - PO Not Given DAILY ZACHARY Hydrocortisone Sodium Succinate 100 mg 06/21/18 18:00 06/26/18 11:59 Solu-Cortef - IVPUSH 100 mg Q8H-IV ZACHARY Administration Minocycline HCl 100 mg/ 100 mls @ 100 mls/hr 06/17/18 15:00 06/26/18 02:33 Dextrose IVPB 100 mls/hr Q12H ZACHARY Administration Vasopressin 50 units/ Sodium 100 mls @ 4 mls/hr 06/18/18 17:25 06/26/18 02:33 Chloride IVPB 6 units/hr ASDIR ZACHARY 12 mls/hr Titration Protocol 2 UNITS/HR Famotidine/Sodium Chloride 20 mg in 50 mls @ 100 mls/hr 06/21/18 10:30 11:59 Pepcid 20 Mg Premixed Ivpb - IVPB 100 mls/hr BID ZACHARY Administration Fentanyl 500 mcg/ Dextrose 100 mls @ 15 mls/hr 06/22/18 11:45 06/26/18 06:04 IVPB 50 mcg/hr TITR ZACHARY 10 mls/hr Titration Protocol 75 MCG/HR Azithromycin 500 mg in 250 mls @ 250 mls/hr 06/22/18 11:30 06/26/18 10:28 Zithromax 500mg Ivpb (Pre-Docked) IVPB 250 mls/hr DAILY ZACHARY Administration Norepinephrine Bitartrate 8, 508 mls @ 83.82 mls/hr 06/22/18 15:28 06/26/18 07:00 000 mcg/ Sodium Chloride IV 25 mcg/min ASDIR ZACHARY 95.25 mls/hr Titration Protocol 22 MCG/MIN Propofol 1,000,000 mcg in 100 mls @ 5.334 mls/hr 06/22/18 16:15 06/26/18 06: 07 Diprivan - IVPB 5 mcg/kg/min TITR ZACHARY 2.667 mls/hr Titration Protocol 10 MCG/KG/MIN Caspofungin 50 mg/ Sodium 250 mls @ 250 mls/hr 06/24/18 11:30 06/26/18 11:44 Chloride IVPB 250 mls/hr Q24H ZACHARY Administration Montelukast Sodium 10 mg 06/12/18 22:00 06/25/18 21:47 Singulair - PO 10 mg HS ZACHARY Administration Polyethylene Glycol 17 gm 06/12/18 17:35 Miralax (For Daily Use) - PO DAILY PRN CONSTIPATION Roflumilast 500 mcg 06/13/18 10:00 06/26/18 12:33 Daliresp - PO 500 mcg DAILY ZACHARY Administration Scopolamine HBr 1 patch 06/18/18 10:30 06/24/18 10:15 Transderm-Scop - TD 1 patch Q72H ZACHARY Administration Impression 1. RAOUL 2. CKD 3. respiratory failure requiring intubation 4. sepsis 5. multi drug resistant Acinetobacter 6. copd exacerbation 7. anemia 8. hyperkalemia 9. thrombocytopenia Plan - pt remains hypotensive and is on 3 pressors - monitor urine ouput - monitor responce to lasix - renal function is worse - unable to UF volume with HD secondary to hypotension - prognosis discussed with family at length - pressors to maintain a map of 65 - vent support - daily cxr - RAOUL is likely multifactorial - discussed with ICU team - prognosis poor Dr Marquez
[2018-06-26 16:49] VITALS: TEMP 97
[2018-06-26] MEDS: FENTANYL INJECTION 500 MCG in DEXTROSE 5%-WATER - 90 ML IVPB SCH (18:22)
[2018-06-26] MEDS: NOREPINEPHRINE BITARTRATE IV SCH (18:24)
[2018-06-26] MEDS: SODIUM CHLORIDE 0.45% IV SCH (18:24)
[2018-06-26] MEDS: PROPOFOL 1,000,000 MCG/100 ML VIAL IVPB SCH (18:25)
[2018-06-26] MEDS: VASOPRESSIN 50 UNITS in SODIUM CHLORIDE 97.5 ML IVPB SCH ×2 (19:23→19:24)
[2018-06-26 21:37] VITALS: BP 67/12; PULSE 0
--- NOTE | 2018-06-27 15:56 | DS ---
Physical Exam: SUBJECTIVE: Subjective and physical exam findings as per attending's note. OBJECTIVE: Vital Signs Period Temp Pulse Resp BP Sys/Echevarria Pulse Ox Last 24 Hr 0-155 0-28 41-72/12-41 LABS CBC, BMP 06/26/18 05:30 06/26/18 05:30 Imaging: Chest X-Ray (05/27/18): No significant interval change. Persistent bilateral increased interstitial markings. Differential diagnosis again includes chronic interstitial lung disease. Cannot rule out noncardiogenic mild pulmonary venous congestion or interstitial infiltrates. Chest X-ray (05/30/18): No acute pathology or significant change. Chest CT scan without contrast (05/31/18): Moderately severe COPD with extensive bilateral bronchiectasis. These findings are unchanged since a previous study of 02/07/18. There is no evidence of acute pathology within the chest. CXR (06/06/18) 2 views of the some minimal degenerative changes with wedging. The soft tissues are intact. The chest reveal a normal-sized heart, normal knob and normal genesis. There are some coarse lung changes. There may be some linear atelectasis/density by the left heart border. Since the prior study 05/30/18, the density by the left heart border has become apparent. This most likely represents a focal area of atelectasis. CXR (06/10/18): New pulmonary consolidation medial aspect of the left upper lung zone obscuring aortic arch. No pleural effusion, or pneumothorax seen. No evidence of vascular congestive changes. CXR (06/13/18): Resolving segmental left upper lobe pneumonia. Left lower lobe pneumonia unchanged. CXR (06/14/18): No significant change in left sided infiltrates. HOSPITAL COURSE: Date of Admission:05/27/18 Date of Discharge: 06/26/18 Patient is a 58 year old female who presented with shortness of breath and pleuritic chest pain, likely secondary to acute on chronic COPD exacerbation. She was started on Ceftriaxone, Azithromycin, IV steroids, nebulizations and inhalers. Patient was starting to improve and IV solu-medrol was tapered. Trial to PO steroids was done and patient could not tolerate it and was put back on IV steroids. Discharge Summary Reason For Visit: OBSTRUCTIVE CHRONIC BRONCHITIS W/EXACERBATION - Instructions Disposition: - Home Medications Comprehensive Discharge Medication List: Ambulatory Orders Cholecalciferol (Vitamin D3) [Vitamin D -] 50,000 unit PO WEEKLY 12/05/17 Albuterol Sulfate Inhaler - [Ventolin HFA Inhaler -] 1 - 2 inh PO Q4H PRN #1 inhaler 01/20/18 Ferrous Sulfate [Feosol] 325 mg PO DAILY 02/04/18 Fluticasone/Salmeterol [Advair 250-50 Diskus] 1 puff IN QID PRN 02/04/18 Folic Acid 1 mg PO DAILY 02/04/18 Umeclidinium [place] [Incruse Ellipta] 62.5 mcg IH DAILY 02/04/18 Diltiazem [Cardizem -] 30 mg PO TID 30 Days #90 tablet 02/12/18 Montelukast Na [Singulair -] 10 mg PO HS #30 tablet 02/12/18 Polyethylene Glycol 3350 [Miralax 119 gm Btl -] 17 gm PO DAILY PRN 5 Days #5 bottle 02/12/18 Albuterol Sulfate Inhaler - [Ventolin Hfa Inhaler -] 1 - 2 inh PO Q4H #1 inhaler 04/25/18 Ipratropium/Albuterol Sulfate [Combivent Respimat Inhal [place]] 4 gm IH BID #20 aer.w.[email or web address] 04/25/18 - Discharge Referral Referred to [facility] No
== END 2018-06-26 21:10 | disposition expired | DRG 130 ==
LOC: JER 17:08 → JERBED 19:21 → J5S 23:32 → JICU 06-12 17:26
PROVIDERS: ADMIT Internal Medicine; ATTEND Internal Medicine
PROC: 0CHY7BZ Insertion of Airway into Mouth and Throat, Via Natural or Artificial Opening (ICD-10-PCS; principal; 2018-06-15)
PROC: 5A1955Z Respiratory Ventilation, Greater than 96 Consecutive Hours (ICD-10-PCS; 2018-06-15)
PROC: 05HM33Z Insertion of Infusion Device into Right Internal Jugular Vein, Percutaneous Approach (ICD-10-PCS; 2018-06-15)
PROC: 30233R1 Transfusion of Nonautologous Platelets into Peripheral Vein, Percutaneous Approach (ICD-10-PCS; 2018-06-18)
PROC: 30233N1 Transfusion of Nonautologous Red Blood Cells into Peripheral Vein, Percutaneous Approach (ICD-10-PCS; 2018-06-18)
PROC: 05H833Z Insertion of Infusion Device into Left Axillary Vein, Percutaneous Approach (ICD-10-PCS; 2018-06-19)
PROC: 5A1D70Z Performance of Urinary Filtration, Intermittent, Less than 6 Hours Per Day (ICD-10-PCS; 2018-06-19)
PROC: 05H633Z Insertion of Infusion Device into Left Subclavian Vein, Percutaneous Approach (ICD-10-PCS; 2018-06-21)
PROC: 06HM33Z Insertion of Infusion Device into Right Femoral Vein, Percutaneous Approach (ICD-10-PCS; 2018-06-21)
PROC: 5A1D70Z Performance of Urinary Filtration, Intermittent, Less than 6 Hours Per Day (ICD-10-PCS; 2018-06-21)
PROC: 5A1D70Z Performance of Urinary Filtration, Intermittent, Less than 6 Hours Per Day (ICD-10-PCS; 2018-06-23)
PROC: 05H533Z Insertion of Infusion Device into Right Subclavian Vein, Percutaneous Approach (ICD-10-PCS; 2018-06-24)
DX: J44.1 Chronic obstructive pulmonary disease with (acute) exacerbation (principal); D64.9 Anemia, unspecified; I12.9 Hypertensive chronic kidney disease with stage 1 through stage 4 chronic kidney disease, or unspecified chronic kidney disease; A41.9 Sepsis, unspecified organism; N17.9 Acute kidney failure, unspecified; E87.2 Acidosis; J96.21 Acute and chronic respiratory failure with hypoxia; J96.22 Acute and chronic respiratory failure with hypercapnia; E87.0 Hyperosmolality and hypernatremia; I16.0 Hypertensive urgency; G93.41 Metabolic encephalopathy; R65.21 Severe sepsis with septic shock; I27.20 Pulmonary hypertension, unspecified; M19.90 Unspecified osteoarthritis, unspecified site; E87.1 Hypo-osmolality and hyponatremia; K76.0 Fatty (change of) liver, not elsewhere classified; J20.9 Acute bronchitis, unspecified; J44.0 Chronic obstructive pulmonary disease with (acute) lower respiratory infection; D50.9 Iron deficiency anemia, unspecified; J18.9 Pneumonia, unspecified organism; D72.829 Elevated white blood cell count, unspecified; D69.6 Thrombocytopenia, unspecified; R07.89 Other chest pain; N18.9 Chronic kidney disease, unspecified; J90 Pleural effusion, not elsewhere classified; J84.9 Interstitial pulmonary disease, unspecified; R58 Hemorrhage, not elsewhere classified; R33.9 Retention of urine, unspecified; R34 Anuria and oliguria; E87.5 Hyperkalemia; E83.39 Other disorders of phosphorus metabolism; D61.818 Other pancytopenia; B49 Unspecified mycosis; Z87.891 Personal history of nicotine dependence; Z99.81 Dependence on supplemental oxygen; Z51.5 Encounter for palliative care
CPT/HCPCS: 31500; 36415; 36430; 36511; 36600; 71045-TC-FY; 71046-TC-FY; 71250-TC; 76705; 76705-TC; 76775-TC; 76856-TC; 80048; 80053; 81003; 81015; 82248; 82272; 82436; 82565; 82570; 82803; 83516; 83520; 83605; 83735; 83880; 84100; 84133; 84155; 84156; 84165; 84300; 84484; 84520; 85025; 85027; 85362; 85379; 85384; 85610; 85730; 86022; 86038; 86225; 86256; 86704; 86706; 86708; 86850; 86900; 86901; 86922; 87040; 87070; 87102; 87106; 87186; 87205; 87210; 87324; 87340; 87449; 87522; 93005; 93010; 93306-TC; 94002; 94640; 94660; 94761; 97116-GP; 97161-GP; 99284-25; G0480; J0637; J1644; J2265; J2597; J3243; J7030; J7620; P9034; P9038; P9047; P9058